=== PATIENT | male | born 1945 | race Caucasian/White ===

== ENCOUNTER → 2017-11-30 14:13 | Outpatient (CLI) | payer MEDICARE, BC, SELFPAY ==
[2017-11-30 15:32] LABS: PSA,Total- Diagnostic 3.49 ng/mL (0.0-4.0)
== END ==
PROVIDERS: Family Provider Family Medicine; PCP Family Medicine; Visit Provider Urology
DX: R97.20 Elevated prostate specific antigen [PSA] (principal)
CPT/HCPCS: 36415; 84153

== ENCOUNTER → 2018-06-30 12:27 | Outpatient (CLI) | payer MEDICARE, BC, SELFPAY ==
--- NOTE | 2018-06-30 12:29 | ECHOCS_ITS ---
Version 2 Reason For Study: DYSPNEA/SOB Procedure This was a 2D Doppler, Color Flow transthoracic echocardiogram. Exam performed in department. Left Ventricle Normal LV size. The estimated ejection fraction is 45 %. Mild segmental systolic dysfunction (see wall motion). Unable to assess diastolic dysfunction due to arrhythmia. Mid-Posterior: Hypokinetic. Infero-Basal: Severely Hypokinetic. Basal inferoseptal: Severely Hypokinetic. Mid-Inferior: Hypokinetic. The rest of the wall segments are normal. Atria The left atrium is moderately enlarged. Normal right atrium. Mitral Valve Normal mitral valve. Mild (1+) eccentric mitral valve insufficiency. Tricuspid Valve Normal tricuspid valve. Mild (1+) tricuspid valve insufficiency. Pulmonary artery systolic pressure is 46 mmHg. Mild pulmonary hypertension. Aortic Valve Trisinus/trileaflet aortic valve. Mild focal aortic valve calcification. Pulmonic Valve Normal pulmonic valve. Great Vessels Normal aortic root. The pulmonary artery is normal size. Normal inferior vena cava. Pericardium/Pleural No pericardial effusion. Medication 22 gauge I.V. with prn adaptor inserted into right arm. Diluted definity 4ml given slow IV push to enhance endocardial definition. MMode/2D Measurements & Calculations LVIDd: 4.7 cm IVSd: 1.1 cm Ao root diam: 3.0 cm LVIDs: 3.8 cm LVPWd: 0.89 cm LA dimension: 4.7 cm FS: 17.9 % LAV(MOD-bp): 117.8 ml LVAd ap4: 30.4 cm2 SV(MOD-sp4): 32.6 ml LAV(MOD-bp) Indexed: 60.3 ml/m2 EDV(MOD-sp4): 99.1 ml LAV(MOD-sp2): 118.6 ml EDV(sp4-el): 102.0 ml LAV(MOD-sp4): 105.5 ml LVAs ap4: 23.7 cm2 ESV(MOD-sp4): 66.5 ml ESV(sp4-el): 67.7 ml EF(MOD-sp4): 32.9 % EF(sp4-el): 33.7 % SV(sp4-el): 34.4 ml LA A4 area: 30.4 cm2 LA dimension(2D): 4.7 cm RA A4 area: 25.1 cm2 Doppler Measurements & Calculations MV E max john: 105.8 cm/sec Ao V2 max: 152.5 cm/sec LV V1 max: 118.8 cm/sec Ao max P.5 mmHg LV V1 max P.7 mmHg PA V2 max: 102.4 cm/sec TR max john: 322.9 cm/sec TR max P.8 mmHg Interpretation Summary Normal LV size. The estimated ejection fraction is 45 %. Mild segmental systolic dysfunction (see wall motion). Unable to assess diastolic dysfunction due to arrhythmia. Mild (1+) tricuspid valve insufficiency. Pulmonary artery systolic pressure is 46 mmHg. Mild pulmonary hypertension. The pulmonary pressures have improved. Contrast injection was performed. Compared to previous study, the left ventricular systolic function is the same.. Ordering Physician: Jairo Turk Referring Physician: ESTELLA BAL Performed By: Roxanne Liu RDCS
== END ==
PROVIDERS: Family Provider Family Medicine; PCP Family Medicine; Referring Provider Internal Medicine Cardiovascular Disease; Visit Provider Internal Medicine Cardiovascular Disease
DX: I27.20 Pulmonary hypertension, unspecified (principal)
CPT/HCPCS: 93306; Q9957; A4216; C8929

== ENCOUNTER → 2018-07-29 09:13 | Outpatient (CLI) | payer MEDICARE, BC, SELFPAY | PROVIDERS: Family Provider Family Medicine; PCP Family Medicine; Referring Provider Physician Assistant Medical; Visit Provider Physician Assistant Medical | DX: I48.2 Chronic atrial fibrillation (principal) | CPT/HCPCS: 93225; 93226 ==

== ENCOUNTER → 2018-09-07 20:19 | Outpatient (CLI) | payer MEDICARE, BC, SELFPAY ==
[2018-08-30 11:23] VITALS: BMI 32.9
== END ==
PROVIDERS: Family Provider Family Medicine; PCP Family Medicine; Referring Provider Physician Assistant Medical; Visit Provider Physician Assistant Medical
DX: G47.10 Hypersomnia, unspecified (principal); I27.20 Pulmonary hypertension, unspecified
CPT/HCPCS: 95810

== ENCOUNTER → 2018-09-24 23:40 | Outpatient (CLI) | payer MEDICARE, BC, SELFPAY ==
[2018-09-21 09:59] VITALS: BMI 32.9
== END ==
PROVIDERS: Family Provider Family Medicine; PCP Family Medicine; Referring Provider Nurse Practitioner Acute Care; Visit Provider Nurse Practitioner Acute Care
DX: G47.33 Obstructive sleep apnea (adult) (pediatric) (principal)
CPT/HCPCS: 95811

== ENCOUNTER → 2018-12-14 10:05 | Outpatient (CLI) | payer MEDICARE, BC, SELFPAY ==
[2018-12-14 09:44] VITALS: BMI 32.4
[2018-12-14 11:15] LABS: Anion Gap 5 (5-15); BUN 28 mg/dL (7-18); BUN/Creat Ratio 20.4 RATIO (10-20); Chloride 107 mmol/L (98-107); Creatinine, Serum 1.37 mg/dL (0.70-1.30); EST Glomerular Filtration Rate 54 mL/min (>60); Est Glom Filt Rate - Afr Amer 65 mL/min (>60); Glucose 123 mg/dL (74-106); Potassium 3.7 mmol/L (3.5-5.1); Sodium Level 137 mmol/L (136-145)
== END ==
PROVIDERS: Family Provider Family Medicine; PCP Family Medicine; Referring Provider Nurse Practitioner Family; Visit Provider Nurse Practitioner Family
DX: I10 Essential (primary) hypertension (principal); N28.0 Ischemia and infarction of kidney; I27.20 Pulmonary hypertension, unspecified; I36.1 Nonrheumatic tricuspid (valve) insufficiency; I42.2 Other hypertrophic cardiomyopathy; I48.2 Chronic atrial fibrillation; N40.0 Benign prostatic hyperplasia without lower urinary tract symptoms
CPT/HCPCS: 36415; 80048

== ENCOUNTER → 2018-12-28 | Outpatient (CLI) | payer MEDICARE, BC, SELFPAY ==
[2018-12-14 09:44] VITALS: BMI 32.4
[2018-12-28 12:10] LABS: Anion Gap 5 (5-15); BUN 23 mg/dL (7-18); BUN/Creat Ratio 17.6 RATIO (10-20); Calcium,Total 9.2 mg/dL (8.5-10.1); Chloride 105 mmol/L (98-107); Creatinine, Serum 1.31 mg/dL (0.70-1.30); EST Glomerular Filtration Rate 57 mL/min (>60); Est Glom Filt Rate - Afr Amer 69 mL/min (>60); Glucose 154 mg/dL (74-106); Potassium 4.2 mmol/L (3.5-5.1); Sodium Level 140 mmol/L (136-145)
== END | disposition home or self-care (01) ==
LOC: LAB 08:47
PROVIDERS: Family Provider Family Medicine; PCP Family Medicine; Referring Provider Nurse Practitioner Family; Visit Provider Nurse Practitioner Family
DX: E66.9 Obesity, unspecified (principal); G47.33 Obstructive sleep apnea (adult) (pediatric); Z90.49 Acquired absence of other specified parts of digestive tract; Z98.890 Other specified postprocedural states; N28.0 Ischemia and infarction of kidney; I27.20 Pulmonary hypertension, unspecified; I36.1 Nonrheumatic tricuspid (valve) insufficiency; I42.2 Other hypertrophic cardiomyopathy; N40.0 Benign prostatic hyperplasia without lower urinary tract symptoms; I48.2 Chronic atrial fibrillation; I10 Essential (primary) hypertension; I42.0 Dilated cardiomyopathy; Z87.891 Personal history of nicotine dependence
CPT/HCPCS: 36415; 80048

== ENCOUNTER 2019-01-16 16:41 | Emergency (ER) | payer MEDICARE, BC, SELFPAY ==
[2019-01-11 10:54] VITALS: BMI 32.8
[2019-01-16 16:42] VITALS: BP 154/75; PULSE 66; RESP 18; TEMP 36.5; O2SAT 96; BMI 33.0
--- NOTE | 2019-01-16 16:58 | ED.VIS.GEN ---
History of Present Illness Chief Complaint: Complaint Informant: Patient, Family Onset: Yesterday Context: Sudden Onset Timing: Intermittent Quality: hematuria w/ few clots Location: penile Current Severity: Moderate Maximum Severity: Moderate Associated Symptoms: malaise Narrative: Feeling somewhat weak today. No fevers. No dysuria. No urinary retention. No abdominal pain, back pain, nausea, vomiting. Is on Coumadin and has not had his INR checked in a while. - Past Medical History (1) Renal infarct Status: Chronic (2) BPH (benign prostatic hyperplasia) Status: Chronic (3) CAD (coronary artery disease) Status: Chronic (4) Chronic atrial fibrillation Status: Chronic (5) HLD (hyperlipidemia) Status: Chronic (6) Hypertension Status: Chronic (7) Hypertrophic cardiomyopathy Status: Chronic Comment: septal myectomy (8) KIMBERLY (obstructive sleep apnea) Status: Chronic Comment: AHI overall 73.6 (9) Pulmonary hypertension Status: Chronic Comment: RVSP estimated to be 46 mmHg (10) Tricuspid valve insufficiency, non-rheumatic Status: Chronic Past Medical History - Allergies and Home Meds Allergies/Adverse Reactions: Allergies rivaroxaban [From Xarelto] Allergy (Verified 01/16/19 16:41) Other metoprolol Adverse Reaction (Verified 01/16/19 16:41) bradycardia Primary Care Physician: Howard Escobar DO [Primary Care Provider] - Surgical History: TURP, - - Heart Muscle Reduction intervention secondary to Dilated Cardiomyopathy, Severel Cystoscopic interventions. Smoking Status: Former smoker - Family History Paternal Family History: Family History (Last Reviewed 11/30/18 @ 13:39 by Nila Lees) Father Heart disease Sister Heart disease Brother Heart disease Family History: Reports: Heart Disease Maternal Family History: Family History (Last Reviewed 11/30/18 @ 13:39 by Nila Lees) Father Heart disease Sister Heart disease Brother Heart disease Family History: Reports: Hypertension, Stroke Review of Systems General: Reports: Malaise. Denies: Chills, Fever, Sweats Eyes: Denies: Visual changes - bilaterally, Diplopia ENT: Denies: Rhinorrhea, Sore throat Cardiovascular: Denies: Chest pain, Palpitations Respiratory: Denies: Dyspnea, Cough, Dyspnea on exertion Gastrointestinal: Denies: Abdominal pain, Nausea, Vomiting, Diarrhea, Melena, Hematochezia Genitourinary: Reports: Hematuria. Denies: Dysuria, Frequency Musculoskeletal: Denies: Back pain, Extremity Pain Skin: Denies: Rash, Wounds Neurological: Denies: Headache, Weakness, Numbness Hematologic: Reports: Easy bruising, Easy bleeding Physical Exam Vital Signs/Narrative: Vital Signs Temp Pulse Resp BP Pulse Ox 01/16/19 16:42 97.7 F L 66 18 154/75 H 96 Inital Vital Signs reviewed: Yes General: Well nourished, Well developed, Obese, No Acute Distress Head: Normocephalic, Atraumatic Eyes: Perrl, EOMI ENT: Moist mucous membranes, No rhinorrhea Neck: Supple, Nontender Cardiovascular: Regular rate, Regular rhythm, No murmurs Respiratory: No distress, CTA bilaterally, Chest nontender Abdomen: Soft, Nontender, Nondistended, Normal bowel sounds Back: Nontender, Normal Inspection. Negative for: CVA tenderness Extremities: Nontender, No edema Skin: Normal color, No rash, No Trauma Neurological: Alert, Oriented x3, Cranial nerves II-XII grossly intact, Normal Strength, Normal Sensation Psychological: Normal affect, Normal Mood Diagnostic/Tx/Re-eval - Medical Decision Making Patient was able to urinate on his own, the hematuria is mild, his urine is red but transparent with a couple of small clots within it. He wants to hold off on catheter for irrigation at this time, as he does not have acute retention. Awaiting labs including PT/INR. INR is 2.0, his blood work shows some mild chronic renal insufficiency and his blood counts are within normal limits. He urinated again and stated it was yellow, he then urinated again and it was bloody. He still prefers not to have a catheter since he has no retention, I think that is fine. I discussed with Dr. durán his urologist who advised that we get a CAT scan, that was done and showed nothing acute but some perinephric stranding. It also showed some enlargement with postsurgical changes of his prostate. Nothing else acute. I sent his urine for a culture, I am at a very low suspicion that he has pyelonephritis or cystitis given leukocyte esterase at 25, nitrite negative, and 0 white blood cells. He is stable to be discharged, he will follow-up with urology and we discussed reasons to return to the ER which include urinary retention. Also advised per Dr. durán's advice that he hold his Coumadin for 2 days, he has already held for today, he may resume it the day after tomorrow. ED Disposition - Plan for ED Patient: Disposition: Home or Assisted Living Diagnosis: Hematuria, Warfarin anticoagulation Instructions: ED Hematuria Referrals: Howard Escobar DO [Primary Care Provider] - Josh Durán MD [STAFF PHYSICIAN] - As soon as possible Additional Instructions: Do not take your Coumadin tonight or tomorrow, then resume it as prescribed.
[2019-01-16 17:36] LABS: Absolute Lymphocyte Count 1.56 X10^3/ul (0.83-4.51); Absolute Neutrophil Count 4.2 X10^3/uL (2.0-7.7); Basophil# 0.03 X10^3/uL; Basophil% 0.5 % (0-1); Eosinophil# 0.07 X10^3/uL; Eosinophils% 1.1 % (0-5); Hematocrit 45.3 % (40-54); Hemoglobin 15.6 g/dl (13.0-16.5); Lymphocyte # 1.56 X10^3/ul (4.0); Lymphocyte % 24.5 % (19-41); Mean Corp Hgb Conc 34.4 g/gl (32-36); Mean Corpuscular Hgb 29.2 pg (27.0-32.0); Mean Corpuscular Volume 84.7 fL (80-94); Mean Platelet Vol. 11.9 fl (6.2-12.0); Monocyte% 7.8 % (0-10); Neutrophil # 4.19 X10^3/uL (2.7-7.7); Neutrophil % 65.8 % (47-70); Platelet Count 181 K/mm3 (150-450); RBC Distribution Width CV 13.6 % (11.6-14.6); RBC Distribution Width SD 41.9 fl (35.1-43.9); Red Blood Count 5.35 M/mm3 (4.6-6.2); White Blood Count 6.4 K/mm3 (4.4-11.0)
[2019-01-16 17:40] LABS: Bacteria 0 SEEN /hpf (None Seen); Mucous, Urine 0 SEEN /hpf (<or=2+); Squamous Epithelial Cells - UA 0 SEEN /hpf (0-5)
[2019-01-16 17:50] LABS: POSITIVE COUNT NO; POSITIVE DIFFERENTIAL NO; POSITIVE MORPHOLOGY NO
[2019-01-16 17:51] LABS: Anion Gap 9 (5-15); BUN 24 mg/dL (7-18); BUN/Creat Ratio 16.1 RATIO (10-20); Calcium,Total 9.4 mg/dL (8.5-10.1); Chloride 104 mmol/L (98-107); Creatinine, Serum 1.49 mg/dL (0.70-1.30); EST Glomerular Filtration Rate 49 mL/min (>60); Est Glom Filt Rate - Afr Amer 59 mL/min (>60); Estimated Creatinine Clearance 35.87 ml/min; Glucose 166 mg/dL (74-106); Potassium 3.9 mmol/L (3.5-5.1); Sodium Level 139 mmol/L (136-145)
[2019-01-16 17:52] LABS: Glucose, Dipstick Normal (Normal); Ketone-Dipstick Negative (Negative); Leukocyte Esterase-Dipstick 25 /ul (Negative); Nitrite-Dipstick Negative (Negative); Occult Blood-Urine 250 /ul (Negative); Protein-Dipstick 100 mg/dl (Negative); Urine Bilirubin Dipstick Negative (Negative); Urine Clarity Sl. Cloudy (Clear); Urine Urobilinogen Normal (Normal)
[2019-01-16 17:55] LABS: Prothrombin Time (Protime)PT. 22.5 SECONDS (11.7-14.9)
[2019-01-16 18:02] LABS: Color, Urine SEE COMMENT BELOW (Yellow)
[2019-01-16 18:06] LABS: Red Blood Cells-Urine > 100 SEEN /hpf (0-5); White Blood Cells 0-5 SEEN /hpf (0-5)
--- NOTE | 2019-01-16 18:52 | CT_ITS ---
STUDY: CT ABDOMEN AND PELVIS WITHOUT CONTRAST REASON FOR EXAM: Male, 73 years old. Hematuria. RADIATION DOSAGE (If Supplied By Facility): CTDIvol = ( 16.25 ) mGy, DLP = ( 710.45 ) mGycm TECHNIQUE: Transaxial images were obtained from the dome of the diaphragm to the symphysis pubis without oral contrast, and without intravenous contrast. Sagittal and coronal images were reconstructed. Individualized dose optimization techniques were used for this CT. COMPARISON: April 16, 2017. FINDINGS: Lung bases: Left lung base granuloma. Minimal dependent changes. Heart: Cardiomegaly. Mild coronary artery disease. Liver: Hepatic steatosis. No focal hepatic lesions given noncontrast technique. Gallbladder/biliary ducts: Multiple gallstones. No biliary ductal dilatation. Pancreas: Moderate/severe pancreatic atrophy. Spleen: Splenic granulomas. Adrenal glands: Unremarkable. Kidneys/ureters/bladder/prostate: Bilateral renal parenchymal atrophy, right markedly greater than left. Right renal parenchyma scarring. Minimal perinephric fat stranding bilaterally. Nondistended ureters. Enlarged prostate with TURP defect and surgical clips/seeds. Prostate measures up to 7.3 cm. Minimal high attenuation material layering in the dependent portion of the bladder (sagittal image 84 series 602). No signs of obstructive uropathy. Large bowel/small bowel: No acute small bowel or large bowel process. Appendix: Not visualized. No secondary signs of appendicitis. Gastroesophageal junction/stomach: Unremarkable. Retroperitoneum/lymph nodes: No intra-abdominal free air. No ascites. No pathologically enlarged lymph nodes. Vascular: Vascular calcifications. No aneurysm. Osseous structures: Degenerative changes. No acute process. Subcutaneous/soft tissues: Fat-containing umbilical hernia without complication. Mild paraspinal muscle atrophy. No acute process. CT/Abdomen/Pelvis without Cont IMPRESSION: No acute bowel findings or obstructive uropathy Mild nonspecific perinephric fat stranding (possible UTI; correlate urinalysis) Enlarged prostate with postsurgical changes Bilateral renal parenchymal thinning/scarring, right greater than left Additional chronic/degenerative findings, as above Electronically Signed: Gurdeep Ruiz DO at 19:25 EDT Tel , Service support ,
[2019-01-16 19:22] VITALS: BP 174/101; PULSE 61; RESP 18; O2SAT 95
[2019-01-16 21:08] VITALS: PULSE 65; RESP 17; O2SAT 98
== END 2019-01-16 21:08 | disposition home or self-care (01) ==
PROVIDERS: Emergency Provider Emergency Medicine; Family Provider Family Medicine; PCP Family Medicine
DX: R31.9 Hematuria, unspecified (principal); Z79.01 Long term (current) use of anticoagulants; E66.9 Obesity, unspecified; I12.9 Hypertensive chronic kidney disease with stage 1 through stage 4 chronic kidney disease, or unspecified chronic kidney disease; N18.9 Chronic kidney disease, unspecified; N40.0 Benign prostatic hyperplasia without lower urinary tract symptoms; I25.10 Atherosclerotic heart disease of native coronary artery without angina pectoris; I48.2 Chronic atrial fibrillation; I42.2 Other hypertrophic cardiomyopathy; G47.33 Obstructive sleep apnea (adult) (pediatric); I27.20 Pulmonary hypertension, unspecified; I36.1 Nonrheumatic tricuspid (valve) insufficiency; Z87.448 Personal history of other diseases of urinary system; Z79.84 Long term (current) use of oral hypoglycemic drugs; Z79.899 Other long term (current) drug therapy; Z87.891 Personal history of nicotine dependence
CPT/HCPCS: 74176; 80048; 81001; 85025; 85610; 87086; 99283; A4216

== ENCOUNTER → 2019-01-17 | Outpatient (CLI) | payer MEDICARE, BC, SELFPAY ==
[2019-01-16 16:42] VITALS: BMI 33.0
--- NOTE | 2019-01-17 | CYSPIN_PTH ---
PATIENT: ANTWAN GE LOC: [facility] U#:[id number] AGE/SX: 73/M ROOM: RE01/17/[address]: Dr. Josh Durán MD : 1945 BED: DIS: 01/17/2019 SPEC #: [id number] RECD: 01/17/19 15:20 STATUS: RAGHU REWei #: [id number] MARINA: 01/17/19 00:[address]: Josh Durán DEPT: CYTOLOGY RECD BY: Bassem Vigil ENTERED: 01/18/19 09:54 SP TYPE: CYSPIN FL OTHR DR: Dr. Howard Escobar, DO Tissues: Urine Procedures: Pap Stain (control) Special Stain Group II Cytospin Fluid HEADER OPERATION: Not noted PRE-OP DIAGNOSIS: Gross hematuria TISSUE SUBMITTED: Urine for cytology DIAGNOSIS CYTOLOGY Urine for cytology (cytospin): Rare atypical urothelial cells are present. See comment. AM:eladio 01/19/19 COMMENT The findings are nonspecific and could represent a variety of conditions including infection, urolithiasis, instrumentation and low grade urothelial neoplasm. Clinical correlation is necessary. CYTOLOGY STUDY Slides are reviewed. CYTOLOGY GROSS Received is 30 ml of dark gold fluid labeled with the patient's name and and designated per the requisition as urine. Submitted for cytology preparation. / 01/18/19 TC:? CPT: 06877
[2019-01-17 17:28] LABS: Cytology, Body Fluid / CSF SEE PATHOLOGY REPORT
== END | disposition home or self-care (01) ==
LOC: LABSPEC 17:05
PROVIDERS: Family Provider Family Medicine; PCP Family Medicine; Referring Provider Urology; Visit Provider Urology
DX: R31.0 Gross hematuria (principal)
CPT/HCPCS: 88108; 88313

== ENCOUNTER → 2019-01-27 | Outpatient (CLI) | payer MEDICARE, BC, SELFPAY ==
[2019-01-16 16:42] VITALS: BMI 33.0
[2019-01-27 13:11] LABS: Anion Gap 7 (5-15); BUN 31 mg/dL (7-18); BUN/Creat Ratio 23.3 RATIO (10-20); Calcium,Total 9.2 mg/dL (8.5-10.1); Chloride 106 mmol/L (98-107); Creatinine, Serum 1.33 mg/dL (0.70-1.30); EST Glomerular Filtration Rate 56 mL/min (>60); Est Glom Filt Rate - Afr Amer 67 mL/min (>60); Glucose 87 mg/dL (74-106); Sodium Level 140 mmol/L (136-145)
== END | disposition home or self-care (01) ==
LOC: LAB 12:04
PROVIDERS: Family Provider Family Medicine; PCP Family Medicine; Referring Provider Nurse Practitioner Family; Visit Provider Nurse Practitioner Family
DX: I10 Essential (primary) hypertension (principal); I42.0 Dilated cardiomyopathy; I42.2 Other hypertrophic cardiomyopathy; N28.0 Ischemia and infarction of kidney; I25.10 Atherosclerotic heart disease of native coronary artery without angina pectoris
CPT/HCPCS: 36415; 80048

== ENCOUNTER 2019-02-09 05:44 | Day surgery (SDC) | payer MEDICARE, BC, SELFPAY ==
[2019-02-07 10:25] VITALS: BP 148/74; PULSE 53; RESP 16; TEMP 36.2; O2SAT 97; BMI 32.0
[2019-02-09] VITALS (11 sets, daily range): BP systolic 122–158; BP diastolic 51–87; PULSE 54–76; RESP 16–18; TEMP 36.1–36.4; O2SAT 94–98; BMI 32.0
[2019-02-09 06:06] LABS: Prothrombin Time Fingerstick 14.1 SEC (11.9-14.4)
[2019-02-09 06:31] LABS: Bedside Glucose 152 mg/dL (70-110)
[2019-02-09] MEDS: Cefazolin 2 GM in 0.9% Normal Saline 100 ML IV (07:21)
--- NOTE | 2019-02-09 07:26 | DCINST_ITS ---
Discharge Diet: Light diet - advance as tolerated Discharge Activity: Return to Normal Activity Call your doctor if your incision/area has: Sudden Increased Bleeding Call your doctor if you observe: Fever of 101 or Higher Suture Line Care: Avoid Pulling/Pushing, Avoid Pinching/Bending Additional Instructions: resume coumadin once urine clear Allergies/Adverse Reactions: Allergies rivaroxaban [From Xarelto] Allergy (Verified 02/07/19 10:08) Other metoprolol Adverse Reaction (Verified 02/07/19 10:08) bradycardia Medications to take at Discharge Cyanocobalamin [Vitamin B12] 1,000 mcg IM Q30D 06/08/16 Hydrochlorothiazide [Hctz] 12.5 mg PO DAILY 06/08/16 doxazosin 2 mg tablet 2 mg PO DAILY #90 tab 07/20/18 metformin 500 mg tablet 500 mg PO DAILY 08/30/18 lisinopril 10 mg tablet 10 mg PO DAILY #30 tab 01/11/19 Dutasteride 0.5 mg PO DAILY 02/07/19 Acetaminophen [Tylenol Extra Strength] 500 mg PO Q4H PRN PRN #20 tab 02/09/19 Ciprofloxacin [Cipro] 500 mg PO BID #6 tab 02/09/19 Ibuprofen 600 mg PO Q6H PRN PRN #20 tab 02/09/19 Phenazopyridine [Pyridium] 100 mg PO TID #15 tab 02/09/19 The following prescriptions were given: Acetaminophen [Tylenol Extra Strength] 500 mg PO Q4H PRN PRN #20 tab PRN Reason: Pain Ibuprofen 600 mg PO Q6H PRN PRN #20 tab PRN Reason: Pain Ciprofloxacin [Cipro] 500 mg PO BID #6 tab Phenazopyridine [Pyridium] 100 mg PO TID #15 tab Primary Care Physician: Howard Escobar DO [Primary Care Provider] - Test Results: Test results from this visit will be discussed in further detail at your follow- up appointment, if applicable. Please Follow Up With: Josh Durán MD When: in 2 weeks, please call to make an appointment.
--- NOTE | 2019-02-09 07:30 | PROS_PTH ---
PATIENT: ANTWAN [place] [facility] [place][id number] AGE/SX: 73/M ROOM: RE02/09/[address]: Dr. Josh Durán MD : 1945 BED: DIS: 02/10/2019 SPEC #: [id number] RECD: 02/09/19 10:11 STATUS: RAGHU REWei #: [id number] MARINA: 02/09/19 07:[address]: Josh Durán DEPT: SURGICAL PATHOLOGY RECD BY: Zoey Chaney ENTERED: 02/09/19 11:48 SP TYPE: TURP OTHR DR: Dr. Howard Escobar, DO Tissues: Prostate, NOS Procedures: Surgery Specimen Level IV HEADER OPERATION: Cystoscopy, transurethral resection of prostate PRE-OP DIAGNOSIS: Benign prostatic hypertrophy with obstruction, bladder calculus TISSUE SUBMITTED: Prostate chips MICROSCOPIC DIAGNOSIS Prostate, transurethral resection: Benign nodular hyperplasia, glandular and stromal types. Mild chronic inflammation. AM:eladio 02/10/19 MICROSCOPIC DESCRIPTION Slides are reviewed. GROSS DESCRIPTION Received is one container labeled with the patient's name and designated prostate chips. The specimen consists of multiple irregular fragments of pink-gomez, rubbery, soft tissue that in aggregate weigh 20.3 gm and measure in aggregate 7 x 7 x 3 cm. The entire specimen is submitted in 12 cassettes. CURRY:eladio 02/09/19 TC:3 CPT: 13218
[2019-02-09] MEDS: Lubricating Jelly 60 GM Tube 30 GM TOPICAL (07:37)
--- NOTE | 2019-02-09 09:00 | OP.PCM_ITS ---
Report of Operation Date of Procedure: 02/09/19 Pre-Operative Diagnosis: BPH with obstruction and bladder stones Post-Operative Diagnosis: The same, bladder stones in the past Surgery/Procedure Performed:: Transurethral resection of the prostate Description of Surgical Findings:: 73-year-old male with a history of BPH with obstruction he had obstruction of the prostate and about 2 years ago underwent an UroLift procedure for obstruction went really well and initially reported good flow good results no difficulty going to the bathroom recently comes and and reported more difficulty with stream weak stream difficulty emptying his bladder on cystoscopy was found to have a lot of bullous edema through the urinary channel and what appeared to be bladder stones in the base of the bladder. So that point I recommended we proceed with a cystoscopy and a cystoscopy evacuation of bladder stones. Patient was taken back to the operating room today when general anesthesia he was placed in dorsolithotomy position went inside identified. Identified the penis and testicles are normal I dilated the urethra with sounds very gently just to dilate the meatus. I then went in with a 26 Ukrainian continuous flow resectoscope was able to get through the entire urethra into the bladder past the sphincter I saw a lot of bullous edema and swelling in the prostate with once inside the bladder I do not see any stones but a very heavily trabeculated bladder very difficult to identify the ureteral orifices because of the heavy trabeculation throughout the bladder. I do not see any stones within the bladder that was seen on cystoscopy in the office. Therefore after evaluating the prostate in the in the bladder I decided to proceed with a TURP given the fact that he has significant urinary symptoms and a lot of bullous edema and obstruction of the prostate so I started off with the resectoscope and I resected the floor of the prostate and then as a as I went up and resected the lateral wall the prostate came across the UroLift clips these were removed one by one very carefully did not injure the resectoscope loop during this process these clips were removed then as I worked my way back to the [facility] resected the tissue on the right side chemo class II to clear lymph clips these were both taken out also some of the anchors were taken out and then can continue to resecting the prostate tissue then resected the roof of the prostate and then went to the right side of the prostate continue resection came across the urolith clips and again carefully remove these evacuated from the bladder and then continued resection back to the verumontanum then after the medial resection was done and then switched over to the button vaporization and smooth out the resection smooth out the resection throughout the prostatic channel and then used this to button button vaporizing the prosthetic apical tissue near the verumontanum making sure to vaporize the prosthetic tissue but not to put across the sphincter the verumontanum was right in view during entire resection and vaporized the apical tissue very carefully finally did a flow test he had a nice wide open flow and then I decided to place a 22 Ukrainian catheter into the bladder this was placed on continuous bladder irrigation all the chips have been Ellik it out of the bladder is taken back to PACU in good condition the urine was slightly pink color. Type of Anesthesia:: General Drains: 22fr hull - Admit VTE Documentation VTE Present on Admission: No
[2019-02-09 10:01] LABS: Bedside Glucose 136 mg/dL (70-110)
[2019-02-09] MEDS: Ibuprofen 600 MG Tablet PO ×2 (12:00→17:39)
[2019-02-09] MEDS: Ciprofloxacin 400 MG/200 ML BAG 200 MG IV ×2 (12:36→21:20)
[2019-02-09] MEDS: 0.9% Normal Saline 1,000 ML 75 ML IV (12:39)
[2019-02-09] MEDS: Docusate Sodium 100 MG Capsule PO ×2 (14:52→21:20)
[2019-02-09 15:25] LABS: Bedside Glucose 179 mg/dL (70-110)
[2019-02-09 17:05] LABS: Bedside Glucose 191 mg/dL (70-110)
[2019-02-09] MEDS: metFORMIN HCl 500 MG Tablet PO (17:37)
[2019-02-10 00:19] VITALS: BP 135/58; PULSE 54; RESP 16; TEMP 36.6; O2SAT 98
[2019-02-10] MEDS: 0.9% Normal Saline 1,000 ML 75 ML IV (02:43)
[2019-02-10 06:43] VITALS: BP 145/77; PULSE 56; RESP 16; TEMP 36.6; O2SAT 95
[2019-02-10] MEDS: hydroCHLOROthiazide 12.5mg 12.5 MG PO (09:58)
[2019-02-10] MEDS: Docusate Sodium 100 MG Capsule PO (09:58)
[2019-02-10] MEDS: Pantoprazole Sodium 40 MG Tablet PO (09:58)
[2019-02-10] MEDS: Doxazosin 1 MG Tablet 2 MG PO (09:58)
[2019-02-10] MEDS: Finasteride 5 MG Tablet PO (09:58)
[2019-02-10] MEDS: Lisinopril 10 MG Tablet PO (09:58)
[2019-02-10 10:00] VITALS: PULSE 52
[2019-02-10 10:54] VITALS: BP 144/72; PULSE 52; RESP 18; TEMP 36.6; O2SAT 98
== END 2019-02-10 11:46 | disposition home or self-care (01) ==
LOC: SDC 05:45 → AC 05:45 → MS2 09:09
PROVIDERS: Family Provider Family Medicine; PCP Family Medicine; Referring Provider Urology; Visit Provider Urology
PROC: (CPT 52601; principal; 2019-02-09 07:20)
DX: N40.1 Benign prostatic hyperplasia with lower urinary tract symptoms (principal); N13.8 Other obstructive and reflux uropathy; N21.0 Calculus in bladder; E11.9 Type 2 diabetes mellitus without complications; E78.00 Pure hypercholesterolemia, unspecified; E53.8 Deficiency of other specified B group vitamins; Z79.01 Long term (current) use of anticoagulants; Z79.899 Other long term (current) drug therapy; Z79.4 Long term (current) use of insulin; I48.91 Unspecified atrial fibrillation; I10 Essential (primary) hypertension; Z87.891 Personal history of nicotine dependence
CPT/HCPCS: 00914; 52601; 36416; 82962; 85610; 88305; 94762; J7030; J7120; J0744; J2405

== ENCOUNTER 2019-02-18 09:02 | Emergency (ER) | payer MEDICARE, BC, SELFPAY ==
[2019-02-09 06:11] VITALS: BMI 32.0
[2019-02-18 09:04] VITALS: BP 150/90; PULSE 87; RESP 17; TEMP 36.8; O2SAT 96; BMI 32.1
--- NOTE | 2019-02-18 09:34 | ED.VISSUMM ---
- ER Visit Summary Date of Service: 02/18/19 Chief Complaint: UTI History of Present Illness: The patient is a 73 M with a possible UTI. Patient had prostate surgery about a week and a half ago by Dr. Durán. He has had dark urine, urinary frequency and occasional mild bleeding since then. He completed his antibiotics about a week ago. He has had continued symptoms and is concerned for UTI. He denies fever or any other symptoms. Denies back pain. Physical Examination: Afebrile and vital signs are unremarkable. Abdomen soft and nontender. Back is nontender. Test Results: We will check labs, urine, INR, urine culture. Emergency Department Course and Treatment: CBC normal. BUN 23 and creatinine 1.32. INR 1.0. Urinalysis shows signs of infection. Culture pending. We will treat with Keflex. Patient was referred to his urologist for further care. For any new or worsening issues. Treatment Plan: As above Disposition: Discharge Impression: 1. UTI cystitis This note was generated with [employer] dictation software. It may contain incorrect words, spelling, and punctuation that were not noted in review of the chart prior to signing ED Disposition - Plan for ED Patient: Referrals: Howard Escobar DO [Primary Care Provider] -
[2019-02-18 09:56] LABS: Mucous, Urine 0 SEEN /hpf (<or=2+); Squamous Epithelial Cells - UA 0 SEEN /hpf (0-5)
[2019-02-18 09:57] LABS: Color, Urine Yellow (Yellow); Glucose, Dipstick Normal (Normal); Ketone-Dipstick Negative (Negative); Leukocyte Esterase-Dipstick 500 /ul (Negative); Nitrite-Dipstick Positive (Negative); Occult Blood-Urine 250 /ul (Negative); Protein-Dipstick 100 mg/dl (Negative); Urine Bilirubin Dipstick Negative (Negative); Urine Clarity Clear (Clear); Urine Urobilinogen 1 mg/dl (Normal)
[2019-02-18 10:04] LABS: White Blood Cells 10-25 SEEN /hpf (0-5)
[2019-02-18 10:05] LABS: Bacteria 2+ /hpf (None Seen); Red Blood Cells-Urine 25-50 SEEN /hpf (0-5); Renal Epithelial Cells 0-5 SEEN /hpf (0-5)
[2019-02-18 10:08] LABS: Absolute Lymphocyte Count 1.31 X10^3/ul (0.83-4.51); Absolute Neutrophil Count 6.5 X10^3/uL (2.0-7.7); Basophil# 0.05 X10^3/uL; Basophil% 0.6 % (0-1); Eosinophil# 0.27 X10^3/uL; Hematocrit 42.8 % (40-54); Hemoglobin 14.6 g/dl (13.0-16.5); Lymphocyte # 1.31 X10^3/ul (4.0); Lymphocyte % 14.6 % (19-41); Mean Corp Hgb Conc 34.1 g/gl (32-36); Mean Corpuscular Hgb 29.5 pg (27.0-32.0); Mean Corpuscular Volume 86.5 fL (80-94); Mean Platelet Vol. 11.1 fl (6.2-12.0); Monocyte# 0.83 X10^3/uL; Monocyte% 9.2 % (0-10); Neutrophil % 72.2 % (47-70); Platelet Count 201 K/mm3 (150-450); RBC Distribution Width CV 13.6 % (11.6-14.6); RBC Distribution Width SD 43.1 fl (35.1-43.9); Red Blood Count 4.95 M/mm3 (4.6-6.2)
[2019-02-18 10:11] LABS: POSITIVE COUNT NO; POSITIVE DIFFERENTIAL NO; POSITIVE MORPHOLOGY NO
[2019-02-18 10:19] LABS: Anion Gap 9 (5-15); BUN 23 mg/dL (7-18); BUN/Creat Ratio 17.4 RATIO (10-20); Calcium,Total 9.1 mg/dL (8.5-10.1); Chloride 104 mmol/L (98-107); Creatinine, Serum 1.32 mg/dL (0.70-1.30); EST Glomerular Filtration Rate 56 mL/min (>60); Est Glom Filt Rate - Afr Amer 68 mL/min (>60); Estimated Creatinine Clearance 40.49 ml/min; Glucose 173 mg/dL (74-106); Potassium 3.9 mmol/L (3.5-5.1); Prothrombin Time (Protime)PT. 13.3 SECONDS (11.7-14.9); Sodium Level 139 mmol/L (136-145)
--- NOTE | 2019-02-18 11:22 | ED.DEP ---
ED Disposition - Plan for ED Patient: Instructions: Urinary Tract Infections in Men Prescriptions: Cephalexin [Keflex] 500 mg PO BID 5 Days #10 cap Prescription Printed Referrals: Josh Durán MD [STAFF PHYSICIAN] -
[2019-02-18 11:33] VITALS: BP 132/75; PULSE 67; RESP 16; O2SAT 96
== END 2019-02-18 11:42 | disposition home or self-care (01) ==
LOC: ED 09:40
PROVIDERS: Emergency Provider Emergency Medicine; Family Provider Family Medicine; PCP Family Medicine
DX: N30.91 Cystitis, unspecified with hematuria (principal); I25.10 Atherosclerotic heart disease of native coronary artery without angina pectoris; I10 Essential (primary) hypertension; E78.00 Pure hypercholesterolemia, unspecified; G47.33 Obstructive sleep apnea (adult) (pediatric); I27.20 Pulmonary hypertension, unspecified; I48.91 Unspecified atrial fibrillation; Z87.448 Personal history of other diseases of urinary system; Z79.01 Long term (current) use of anticoagulants; Z79.84 Long term (current) use of oral hypoglycemic drugs; Z79.899 Other long term (current) drug therapy
CPT/HCPCS: 80048; 81001; 85025; 85610; 87086; 99283; A4216

== ENCOUNTER 2019-03-01 14:21 | Outpatient (RCR) | payer MEDICARE, BC, SELFPAY ==
[2019-03-01 11:25] VITALS: BMI 31.9
[2019-03-01 15:48] LABS: Prothrombin Time (Protime)PT. 22.4 SECONDS (11.7-14.9)
== END 2019-03-30 16:41 | disposition home or self-care (01) ==
LOC: LAB 14:21
PROVIDERS: Family Provider Family Medicine; PCP Family Medicine; Referring Provider Internal Medicine Cardiovascular Disease; Visit Provider Internal Medicine Cardiovascular Disease
DX: I48.2 Chronic atrial fibrillation (principal); I43 Cardiomyopathy in diseases classified elsewhere; I44.7 Left bundle-branch block, unspecified; I10 Essential (primary) hypertension; I27.21 Secondary pulmonary arterial hypertension; N28.0 Ischemia and infarction of kidney; I42.2 Other hypertrophic cardiomyopathy; E78.5 Hyperlipidemia, unspecified; Z79.01 Long term (current) use of anticoagulants; Z98.890 Other specified postprocedural states
CPT/HCPCS: 36415; 85610

== ENCOUNTER 2019-07-18 12:24 | Day surgery (SDC) | payer MEDICARE, BC, SELFPAY ==
[2019-06-13 14:08] VITALS: BMI 31.9
--- NOTE | 2019-06-16 11:58 | HP_ITS ---
Intake Vital Signs 06/13/19 Body Mass Index (BMI) 31.9 06/13/19 Height 5 ft 4 in 06/13/19 Weight: 184 lb 06/13/19 Body Mass Index (BMI) 31.6 06/13/19 Blood Pressure 165/83 H 06/13/19 Blood Pressure Location Rt brachial 06/13/19 Respiratory Rate 18 Intake Visit Reasons: Umbilical Hernia Chief Complaint: TURP Learning Officer Required: No Is patient in pain?: No Allergies rivaroxaban [From Xarelto] Allergy (Verified 06/13/19 14:07) Bleeding metoprolol Adverse Reaction (Verified 06/13/19 14:07) bradycardia Medications Cyanocobalamin [Vitamin B12] 1,000 mcg IM Q30D 06/08/16 [History Confirmed 06/13/19] Hydrochlorothiazide [Hctz] 12.5 mg PO DAILY 06/08/16 [History Confirmed 06/13/19] metformin 500 mg tablet 500 mg PO DINNER 08/30/18 [History Confirmed 06/13/19] Acetaminophen [Tylenol Extra Strength] 500 mg PO Q4H PRN PRN #20 tab 02/09/19 [Rx Confirmed 06/13/19] Warfarin Sodium 5 mg PO DAILY 02/09/19 [History Confirmed 06/13/19] lisinopril 10 mg tablet 10 mg PO DAILY #30 tab 04/13/19 [Rx Confirmed 06/13/19] doxazosin 2 mg tablet 2 mg PO DAILY #90 tab 05/23/19 [Rx Confirmed 06/13/19] PFSH Medical History Cardiomyopathy in diseases classified elsewhere (Chronic) Left bundle branch block (Chronic) Essential (primary) hypertension (Chronic) Secondary pulmonary arterial hypertension (Chronic) Renal infarct (Chronic) Hypertrophic cardiomyopathy (Chronic) Chronic atrial fibrillation (Chronic) HLD (hyperlipidemia) (Chronic) BPH (benign prostatic hyperplasia) (Chronic) Non-rheumatic tricuspid valve insufficiency (Chronic) KIMBERLY (obstructive sleep apnea) (Chronic) Obesity (BMI 30.0-34.9) (Chronic) History of tobacco use (Inactive) Surgical History History of ventricular septal myectomy (Resolved 2000) History of appendectomy (Resolved) History of transurethral resection of prostate (Resolved 01/2019) Family History Father Heart disease Sister Heart disease Brother Heart disease Social History (Updated 06/16/19 @ 11:58 by Antwan Alfaro MD) Smoking Status: Never smoker how long ago did patient quit smokin years ago 0.25ppd second hand exposure: Yes alcohol intake: never caffeine: Yes Type: coffee Number of servings: 1 HPI HPI HPI: ANTWAN GE, is a 74 M who presents to the office today for HPI HPI Surgical H&P: Yes HPI: ANTWAN GE, is a 74 M who presents to the office today for An increasing lump at his umbilicus. He has noticed this for many years but is been increasing in nature. He has had no pain with this. He has had no previous surgeries here.When he lies down it it is much smaller than when He is upright. ROS General General: No weight change, appetite, fatigue, colon cancer, breast cancer or weakness HEENT HEENT: No difficulty swallowing, eye injury, eye surgery, swollen glands or hoarseness Endo Endocrine: Yes diabetes mellitus; no thyroid disease, thyroid cancer, Hair loss, heat intolerance or cold intolerance Skin Skin: No rash or changing moles Breast Breast: No left breast lump, right breast lump, nipple discharge, breast pain, abnormal mammogram, abnormal US or breast enlargement Musc Musculoskeletal: No back problems, arthritis, rheumatoid arthritis, gout or joint pain Cardio Cardiovascular: Yes murmur and atrial fibrillation; no pacemaker, heart disease, high blood pressure, heart attack, heart stent, palpitations, shortness of breat with exertion or chest pain Psych Psychiatric: No depression, anxiety or hearing voices Resp Respiratory: No shortness of breath, Yes sleep apnea, No cough, No COPD, No asthma, No emphysema, No wheezing Gastro Gastrointestinal: No abdominal pain, No nausea or vomiting, No diarrhea, No constipation, No blood in stool, No acid reflux, No hemorrhoids, No ulcers, No gallbladder problem, No black,tarry stools Leonard Hematologic: Yes blood thinners, No blood disorders, No bleeding, No anemia, No blood clots Neuro Neurologic: No system reviewed and no additional complaints, except as docu, No as per HPI, No abnormal walking, No abnormal hearing, No abnormal movements, No abnormal speech, No behavioral changes, No burning sensations, No confusion, No seizure-like activity, No unsteadiness, No dizziness, No localized weakness, No frequent falls, No headache(s), No lack of coordination, No loss of vision, No memory loss, Yes numbness, No other visual disturbances, No radiating pain, No restless legs, No sensory deficit, No fainting, Yes tingling, No tremor(s), No weakness, No other Exam Const General: no acute distress, well developed, well hydrated Orientation: oriented to person, oriented to place, oriented to time [facility] Head: normocephalic, atraumatic Ears: external ears normal Mouth: moist mucous membranes Eyes Sclera: sclerae normal Pupils: normal by confrontation Neck Neck: no lymphadenopathy noted Neck mass: No Thyroid: thyroid normal, symmetrical Chest Chest palpation & inspection: normal inspection of the chest Breast Palpation: No nipple discharge Resp Effort & Inspection: normal respiratory effort Auscultation: clear to auscultation bilaterally Percussion: percussion normal Cardio Rate: regular rate Rhythm: regular rhythm Heart Sounds: murmur GI Palpation: soft, no hepatosplenomegaly, no masses, nontender Rectal Exam: other Other: Rectal exam deferred. Umbilical hernia is identified. It is easily reducible. Extrem General: normal to inspection, no clubbing, cyanosis or edema Assessment & Plan Problems 1. Umbilical hernia without obstruction and without gangrene K42.9 Plan My plan is to perform a Umbilical hernia repair with mesh. The planned surgical procedure was discussed extensively with the patient. The risks, benefits, anticipated outcomes and possible complication were mentioned. The patient understands that all hernia repair surgery has a chance of recurrence and/or chronic post-operative pain. My staff has also explained the procedure in understandable terms and the patient was given the option to take printed material concerning the planned procedure. The patient had the opportunity to ask questions concerning the planned procedure. The patient freely consents to the planned procedure. Coding Level of Care Code Off vis,est,level 3 Diagnoses Umbilical hernia without obstruction and without gangrene K42.9 06/16/19 1159 <Electronically signed by Antwan rivera MD> Date _ Antwan Alfaro MD I have re-examined the patient. There are no clinical changes since date of exam.
[2019-07-04 13:03] VITALS: BMI 31.9
[2019-07-18 12:51] VITALS: BP 152/60; PULSE 61; RESP 16; TEMP 36.1; O2SAT 98; BMI 32.2
[2019-07-18 12:52] LABS: Hematocrit 45.4 % (40-54); Mean Corpuscular Hgb 29.3 pg (27.0-32.0); Mean Corpuscular Volume 88.7 fL (80-94); Mean Platelet Vol. 12.1 fl (6.2-12.0); Platelet Count 175 K/mm3 (150-450); RBC Distribution Width SD 42.5 fl (35.1-43.9); Red Blood Count 5.12 M/mm3 (4.6-6.2); White Blood Count 7.2 K/mm3 (4.4-11.0)
[2019-07-18 13:03] LABS: International Normalized Ratio 1.2; Prothrombin Time (Protime)PT. 15.4 SECONDS (11.7-14.9)
[2019-07-18 13:08] LABS: Anion Gap 5 (5-15); BUN 26 mg/dL (7-18); Calcium,Total 9.2 mg/dL (8.5-10.1); Chloride 103 mmol/L (98-107); EST Glomerular Filtration Rate 57 mL/min (>60); Est Glom Filt Rate - Afr Amer 69 mL/min (>60); Glucose 114 mg/dL (74-106); Potassium 3.8 mmol/L (3.5-5.1); Sodium Level 136 mmol/L (136-145)
[2019-07-18 13:22] LABS: Hemoglobin A1c 6.7 % (4.2-6.3)
--- NOTE | 2019-07-18 13:29 | EKG12_ITS ---
Test Reason : PRE-OP Blood Pressure : / mmHG Vent. Rate : 063 BPM Atrial Rate : 070 BPM P-R Int : 000 ms QRS Dur : 156 ms QT Int : 428 ms P-R-T Axes : 000 005 175 degrees QTc Int : 437 ms Atrial fibrillation Left bundle branch block Abnormal ECG Confirmed by ABDI STONER, CHANI ([id number]), sports editor BRADFORD ABDUL ([id number]) on 07/20/2019 2:34:41 PM Referred By: Dakota Alfaro Confirmed By:CHANI PATTON MD
[2019-07-18 13:31] LABS: Bedside Glucose 122 mg/dL (70-110)
[2019-07-18] MEDS: Lactated Ringers 1,000 ML 100 ML IV (13:36)
[2019-07-18] MEDS: Cefazolin 2 GM in 0.9% Normal Saline 100 ML IV (14:15)
--- NOTE | 2019-07-18 14:22 | PCM.OPRPT ---
Problem List (1) Umbilical hernia Status: Acute Qualifiers: Obstruction and gangrene presence: without obstruction or gangrene Qualified Code(s): K42.9 - Umbilical hernia without obstruction or gangrene Report of Operation Date of Procedure: 07/18/19 Pre-Operative Diagnosis: Umbilical hernia without obstruction or gangrene Post-Operative Diagnosis: Same Surgery/Procedure Performed:: Umbilical herniorrhaphy with mesh Type of Anesthesia:: General Anesthesiologist: Gurdeep Dang Specimen's removed: none Drains: none Estimated Blood Loss (mL): < 25 cc Fluids Replaced: 500 cc lr Description of Procedure: Patient was brought into the operating room placed in the supine position under excellent general trach intubation the abdomen was sterilely prepped draped in usual fashion. Local was injected infraumbilically curvilinear incision was made dissection was carried down to the fascia umbilical defect was identified I took the umbilical defect off of the umbilical pin I placed it back into its preperitoneal space. I created a preperitoneal window grasping the good fascia with Leonor's and then detaching the underlying preperitoneal tissue so that I could fashion a small ventral X ST hernia patch lot number [id number] reference #[id number]. Tacked it to the surrounding fascia with #1 Nurolon's. Local was injected. Brought the umbilicus back down to the fascia with a 2-0 Vicryl. Deep dermal stitches of 3-0 Vicryl running 4-0 Monocryl on the skin Dermabond was applied sterile dressings were applied and the patient tolerated the procedure well. - Admit VTE Documentation VTE Present on Admission: No VTE Mechan Device Prophylaxis: SCD's VTE Pharm Prophylaxis ordered?: No Reason prophylaxis not ordered:: Treatment Not Indicated
--- NOTE | 2019-07-18 14:24 | DCINST_ITS ---
Discharge Diet: Light diet - advance as tolerated Discharge Activity: Return to Normal Activity, May Drive - when you are no longer taking narcotic pain medications., May Shower - with the bandage in place 1-2 days after surgery. Lifting Restrictions: 20 pounds for 8 weeks. Additional Activity Instructions:: Climbing stairs is fine, walking is encouraged. Sitting in bed may be uncomfortable. Sitting up using your lateral muscles (sitting up sideways) is usually more comfortable. Do not drive, work heavy equipment of sign legal documents for 24 hours. If your hernia repair was an ingunial repair, you may have scrotal swelling, an ice pack and/or athletic support can provide more comfort. Pain medications may cause nausea, you should typically eat light foods as you take your pain medications. Pain medications may also cause constipation. If you have difficulty with this, discuss with your doctor. Call your doctor if your incision/area has: Continuous Slow Oozing, Sudden Increased Bleeding, Increased Pain/ Swelling, Increased Redness, Foul Smelling Discharge Call your doctor if you observe: Fever of 101 or Higher Suture Line Care: Avoid Pulling/Pushing, Avoid Pinching/Bending Additional Dressing/Incision Instructions:: Leave the operative bandage on for 2-3 days. When you remove the bandage, leave the steri-strips on place until your follow up appointment or they fall off. Allergies/Adverse Reactions: Allergies rivaroxaban [From Xarelto] Allergy (Verified 07/18/19 12:47) Bleeding metoprolol Adverse Reaction (Verified 07/18/19 12:47) bradycardia Medications to take at Discharge Cyanocobalamin [Vitamin B12] 1,000 mcg IM Q30D 06/08/16 Hydrochlorothiazide [Hctz] 12.5 mg PO DAILY 06/08/16 metformin 500 mg tablet 500 mg PO DINNER 08/30/18 Acetaminophen [Tylenol Extra Strength] 500 mg PO Q4H PRN PRN #20 tab 02/09/19 Warfarin Sodium 5 mg PO MOWEFR 02/09/19 lisinopril 10 mg tablet 10 mg PO DAILY #30 tab 04/13/19 doxazosin 2 mg tablet 2 mg PO DAILY #90 tab 05/23/19 Warfarin Sodium [Coumadin] 2.5 mg PO SUTUTHSA 07/11/19 Oxycodone HCl/Acetaminophen [Percocet 5/325] 1 - 2 tablet PO Q4H PRN PRN 7 Days #30 tablet 07/18/19 The following prescriptions were given: Oxycodone HCl/Acetaminophen [Percocet 5/325] 1 - 2 tablet PO Q4H PRN PRN 7 Days #30 tablet PRN Reason: Pain Transmission Status: Sent to [facility] Primary Care Physician: Howard Escobar DO [Primary Care Provider] - Test Results: Test results from this visit will be discussed in further detail at your follow- up appointment, if applicable. Please Follow Up With: Dakota Alfaro MD - [phone] When: Plan to have a follow up appointment in 7 days. Call to schedule.
[2019-07-18] MEDS: Bupivacaine Mpf 0.5% 30 ML VIAL (14:57)
[2019-07-18 15:15] VITALS: BP 130/68; BP 152/60; PULSE 62; RESP 16; TEMP 36.1; O2SAT 97
[2019-07-18 15:30] VITALS: BP 127/84; BP 152/60; PULSE 56; RESP 16; O2SAT 93
[2019-07-18 15:36] LABS: Bedside Glucose 98 mg/dL (70-110)
[2019-07-18 15:42] VITALS: BP 132/59; BP 152/60; PULSE 65; RESP 16; O2SAT 95
[2019-07-18 16:26] VITALS: BP 130/52; BP 152/60; PULSE 65; RESP 16; TEMP 36.2; O2SAT 95
== END 2019-07-18 16:30 | disposition home or self-care (01) ==
LOC: SDC 12:26 → AC 12:29
PROVIDERS: Anesthesiology; Family Provider Family Medicine; PCP Family Medicine; Referring Provider Surgery; Visit Provider Surgery
PROC: (CPT 49585; principal; 2019-07-18 14:15)
DX: K42.9 Umbilical hernia without obstruction or gangrene (principal); I44.7 Left bundle-branch block, unspecified; E11.22 Type 2 diabetes mellitus with diabetic chronic kidney disease; I12.9 Hypertensive chronic kidney disease with stage 1 through stage 4 chronic kidney disease, or unspecified chronic kidney disease; N18.9 Chronic kidney disease, unspecified; I27.21 Secondary pulmonary arterial hypertension; I42.8 Other cardiomyopathies; I48.20 Chronic atrial fibrillation, unspecified; N40.0 Benign prostatic hyperplasia without lower urinary tract symptoms; I36.1 Nonrheumatic tricuspid (valve) insufficiency; G47.33 Obstructive sleep apnea (adult) (pediatric); E66.9 Obesity, unspecified; Z68.31 Body mass index [BMI] 31.0-31.9, adult; Z86.718 Personal history of other venous thrombosis and embolism; Z79.01 Long term (current) use of anticoagulants; Z79.84 Long term (current) use of oral hypoglycemic drugs; Z79.899 Other long term (current) drug therapy; Z87.891 Personal history of nicotine dependence
CPT/HCPCS: 00830; 49585; 36415; 80048; 82962; 83036; 85027; 85610; 93005; J7120; C1781

== ENCOUNTER 2020-03-26 10:03 | Emergency (ER) | payer MEDICARE, BC, SELFPAY ==
[2019-09-05 13:52] VITALS: BMI 32.2
[2020-03-26 10:04] VITALS: BP 148/98; PULSE 71; RESP 17; TEMP 36.8; O2SAT 97; BMI 31.6
--- NOTE | 2020-03-26 10:08 | ED.VIS.GEN ---
History of Present Illness Chief Complaint: Lower Extremity Injury Informant: Patient Narrative: 74-year-old male presenting with right knee pain. He states that it was bothering him a couple of weeks ago when he saw Dr. Lowe had a right knee injection. This helped initially. Patient states he was weed eating this week and his knee pain came back. He is ambulatory. He has had no redness. He denies any direct trauma. I did call Dr. Lowe to get a follow-up appointment and could not get in. He was told to come to the emergency room. Past Medical History - Allergies and Home Meds Allergies/Adverse Reactions: Allergies rivaroxaban [From Xarelto] Allergy (Verified 03/26/20 10:03) Bleeding metoprolol Adverse Reaction (Verified 03/26/20 10:03) bradycardia Primary Care Physician: Howard Escobar DO [Primary Care Provider] - Prior records reviewed: Yes Surgical History: TURP, - - Heart Muscle Reduction intervention secondary to Dilated Cardiomyopathy, Severel Cystoscopic interventions. Smoking Status: Unknown if ever smoked Alcohol: None Drugs: None - Family History Paternal Family History: Family History (Last Reviewed 09/05/19 @ 13:29 by Eda Ingram) Father Heart disease Sister Heart disease Brother Heart disease Family History: Reports: Heart Disease Maternal Family History: Family History (Last Reviewed 09/05/19 @ 13:29 by Eda Ingram) Father Heart disease Sister Heart disease Brother Heart disease Family History: Reports: Hypertension, Stroke Review of Systems General: Denies: Chills, Fever, Sweats Eyes: Denies: Visual changes - bilaterally, Diplopia ENT: Denies: Rhinorrhea, Sore throat Cardiovascular: Denies: Chest pain, Palpitations Respiratory: Denies: Dyspnea, Cough, Dyspnea on exertion Gastrointestinal: Denies: Abdominal pain, Nausea, Vomiting, Diarrhea, Melena, Hematochezia Genitourinary: Denies: Dysuria, Hematuria, Frequency Musculoskeletal: Reports: Extremity Pain - Right knee pain. Denies: Back pain Skin: Denies: Rash, Wounds Neurological: Denies: Headache, Weakness, Numbness Physical Exam Vital Signs/Narrative: Vital Signs Temp Pulse Resp BP Pulse Ox 03/26/20 10:04 98.2 F 71 17 148/98 H 97 General: Well nourished, Well developed, No Acute Distress Head: Normocephalic, Atraumatic Eyes: Perrl, EOMI ENT: Moist mucous membranes, No rhinorrhea Neck: Supple, Nontender Cardiovascular: Regular rate, Regular rhythm, No murmurs Respiratory: No distress, CTA bilaterally, Chest nontender Abdomen: Soft, Nontender, Nondistended, Normal bowel sounds Back: Nontender, Normal Inspection Extremities: Tenderness - Tenderness to palpation of the inferior portion of the anterior right knee. There is no significant swelling here. There is no ecchymosis. There is no ligament laxity. There is some tenderness to palpation in the popliteal region however there is no significant swelling. No pain with short arc range of motion. No cellulitic change overlies the knee. Skin: Normal color, No rash Neurological: Alert, Oriented x3, Cranial nerves II-XII grossly intact, Normal Strength, Normal Sensation Psychological: Normal affect, Normal Mood Diagnostic/Tx/Re-eval - Medical Decision Making Presents with mild knee pain. He is ambulatory. He has no signs of infection of his knee. He states he just had an injection 2 weeks ago but after weed eating his knee was hurting worse. He did request another knee x-ray which showed degenerative changes and a slight effusion. I do not suspect an infectious etiology at this point. He will follow-up with Dr. Lowe on an outpatient basis. Impression: 1. Knee strain ED Disposition - Plan for ED Patient: Disposition: Home or Assisted Living Instructions: ED Sprain Knee Referrals: Howard Escobar DO [Primary Care Provider] -
--- NOTE | 2020-03-26 10:24 | RAD_ITS ---
STUDY: X-RAY - RIGHT KNEE REASON FOR EXAM: Male, 74 years old. Steroid injection 2 weeks ago -- increasing pain since night, NKI TECHNIQUE: Four view(s) of the knee. COMPARISON: None. FINDINGS: Normal visualized distal femur. Normal visualized proximal tibia and fibula. Normal proximal tibiofibular articulation. There is mild degenerative arthrosis of the medial femorotibial compartment. Normal lateral femorotibial compartment. There is moderate degenerative arthrosis of the patellofemoral articulation. Moderate joint effusion. Soft tissue swelling. RAD/Knee 4 or More Views IMPRESSION: Degenerative arthrosis. Joint effusion and soft tissue swelling. Electronically Signed: Joel Fuentes, at 10:58 EDT , Service support ,
[2020-03-26] MEDS: Acetaminophen 325 MG Tablet 650 MG PO (10:29)
[2020-03-26] MEDS: Lidocaine 5% Patch 1 PATCH TOPICAL (11:16)
== END 2020-03-26 12:11 | disposition home or self-care (01) ==
PROVIDERS: Emergency Provider Student in an Organized Health Care Education/Training Program; PCP Family Medicine
DX: S89.91XA Unspecified injury of right lower leg, initial encounter (principal); X58.XXXA Exposure to other specified factors, initial encounter; Y93.9 Activity, unspecified; Y92.9 Unspecified place or not applicable
CPT/HCPCS: 73564; 99283

== ENCOUNTER → 2020-05-02 13:47 | Outpatient (CLI) | payer MEDICARE, BC, SELFPAY ==
[2020-04-19 11:00] VITALS: BMI 26.2
--- NOTE | 2020-05-02 13:49 | ECHOCS_ITS ---
Reason For Study: Afib/Flutter Procedure This was a 2D Doppler, Color Flow transthoracic echocardiogram. The study was technically difficult. Contrast injection was performed. Exam performed in department. Left Ventricle Moderate assymetric septal hypertrophy. Base of septum normal thickness. Normal LV size. Left ventricular systolic function is normal. The estimated ejection fraction is 65 %. Stage 3 diastolic dysfunction. Septal motion consistent with IVCD. No regional wall motion abnormalities noted. Right Ventricle Normal RV size. Normal systolic function. Atria The left atrium is moderately enlarged. Normal right atrium. Mitral Valve Normal mitral valve. Mild (1+) eccentric mitral valve insufficiency. Tricuspid Valve Normal tricuspid valve. Mild to moderate (1-2+) tricuspid valve insufficiency. Pulmonary artery systolic pressure is 40 mmHg. Aortic Valve Trisinus/trileaflet aortic valve. Mild focal aortic valve calcification. Mild (1+) aortic valve insufficiency. Pulmonic Valve The pulmonic valve is not well visualized. Great Vessels Normal aortic root. The pulmonary artery is normal size. Normal inferior vena cava. Pericardium/Pleural No pericardial effusion. Medication 22 gauge I.V. with prn adaptor inserted into right arm. Diluted definity 3ml given slow IV push to enhance endocardial definition. MMode/2D Measurements & Calculations LVIDd: 4.3 cm IVSd: 1.8 cm Ao root diam: 2.8 cm LVIDs: 3.5 cm LVPWd: 1.1 cm LA dimension: 4.0 cm FS: 19.2 % LAV(MOD-bp): 100.3 ml LA A4 area: 30.0 cm2 RA A4 area: 18.4 cm2 LAV(MOD-bp) Indexed: 53.1 ml/m2 LAV(MOD-sp2): 93.8 ml LAV(MOD-sp4): 102.7 ml Time Measurements MV dec time: 0.19 sec Doppler Measurements & Calculations MV E max babar: 112.5 cm/sec Lat Peak E' Babar: 11.4 cm/sec Med Peak E' Babar: 4.6 cm/sec MV A max babar: 29.7 cm/sec E/E' lat: 9.8 E/E' med: 24.6 MV E/A: 3.8 MV V2 max: 106.4 cm/sec MV P1/2t max babar: 106.4 cm/sec Ao V2 max: 169.1 cm/sec MV max P.5 mmHg MV P1/2t: 103.4 msec Ao max P.4 mmHg MV V2 mean: 54.5 cm/sec MV dec slope: 301.4 cm/sec2 MV mean P.4 mmHg MV V2 VTI: 27.1 cm MVA(P1/2t): 2.1 cm2 LV V1 max: 143.7 cm/sec PA V2 max: 115.6 cm/sec TR max babar: 298.0 cm/sec LV V1 max P.3 mmHg TR max P.5 mmHg Interpretation Summary Normal LV size. Moderate assymetric septal hypertrophy. Base of septum normal thickness The estimated ejection fraction is 65 %. Stage 3 diastolic dysfunction. Septal motion consistent with IVCD. Contrast injection was performed. Ordering Physician: Jairo Turk Referring Physician: Howard Escobar Performed By: Salvatore Lemon, [facility]
== END ==
PROVIDERS: PCP Family Medicine; Referring Provider Internal Medicine Cardiovascular Disease; Visit Provider Internal Medicine Cardiovascular Disease
DX: I42.2 Other hypertrophic cardiomyopathy (principal)
CPT/HCPCS: 93306; Q9957; A4216; C8929

== ENCOUNTER → 2020-12-19 15:40 | Outpatient (CLI) | payer MEDICARE, BC, SELFPAY ==
[2020-12-19 14:44] VITALS: BMI 32.3
[2020-12-19 16:58] LABS: Absolute Lymphocyte Count 1.49 X10^3/uL (0.83-4.51); Absolute Neutrophil Count 4.7 X10^3/uL (2.0-7.7); Basophil# 0.07 X10^3/uL; Eosinophil# 0.11 X10^3/uL; Eosinophils% 1.5 % (0-5); Hematocrit 45.7 % (40-54); Hemoglobin 14.3 g/dL (13.0-16.5); Lymphocyte # 1.49 X10^3/ul (0.83-4.51); Lymphocyte % 20.5 % (19-41); Mean Corp Hgb Conc 31.3 g/dL (32-36); Mean Corpuscular Hgb 28.5 pg (27.0-32.0); Mean Platelet Vol. 12.6 fl (6.2-12.0); Monocyte# 0.83 X10^3/uL; Monocyte% 11.4 % (0-10); NRBC Flagged by Analyzer 0 % (0-5); Neutrophil # 4.74 X10^3/uL (2.7-7.7); Neutrophil % 65.3 % (47-70); Platelet Count 189 K/mm3 (150-450); RBC Distribution Width CV 14.4 % (11.6-14.6); Red Blood Count 5.02 M/mm3 (4.6-6.2); White Blood Count 7.3 K/mm3 (4.4-11.0)
[2020-12-19 17:15] LABS: Anion Gap 6 (5-15); BUN 31 mg/dL (7-18); BUN/Creat Ratio 22.6 RATIO (10-20); Calcium,Total 9.5 mg/dL (8.5-10.1); Chloride 107 mmol/L (98-107); Creatinine, Serum 1.37 mg/dL (0.70-1.30); EST Glomerular Filtration Rate 54 mL/min (>60); Est Glom Filt Rate - Afr Amer 65 mL/min (>60); Glucose 89 mg/dL (74-106); Potassium 4.2 mmol/L (3.5-5.1); Sodium Level 140 mmol/L (136-145)
== END ==
PROVIDERS: PCP Family Medicine; Visit Provider Physician Assistant Medical
DX: I42.8 Other cardiomyopathies (principal); I48.11 Longstanding persistent atrial fibrillation; R00.1 Bradycardia, unspecified; R06.00 Dyspnea, unspecified; E78.5 Hyperlipidemia, unspecified
CPT/HCPCS: 36415; 80048; 83880; 85025

== ENCOUNTER 2020-12-22 11:23 | Inpatient (IN) | payer MEDICARE, BC, SELFPAY ==
[2020-12-19 14:44] VITALS: BMI 32.3
[2020-12-22] VITALS (15 sets, daily range): BP systolic 120–182; BP diastolic 47–94; PULSE 79–116; RESP 12–30; TEMP 36.8–37.9; O2SAT 91–98; BMI 32.9; BMI 32.1
--- NOTE | 2020-12-22 11:39 | EKG12_ITS ---
Test Reason : SOB Blood Pressure : / mmHG Vent. Rate : 114 BPM Atrial Rate : 110 BPM P-R Int : 000 ms QRS Dur : 144 ms QT Int : 304 ms P-R-T Axes : 000 033 203 degrees QTc Int : 419 ms Atrial fibrillation Left bundle branch block Abnormal ECG Confirmed by ABDI STONER, CHANI ([id number]), features editor VIOLETA VILLALBA ([id number]) on 12/26/2020 8:30:18 AM Referred By: BALTAZAR Confirmed By:CHANI PATTON MD
[2020-12-22 12:32] LABS: Absolute Lymphocyte Count 0.64 X10^3/uL (0.83-4.51); Absolute Neutrophil Count 15.6 X10^3/uL (2.0-7.7); Basophil# 0.07 X10^3/uL; Basophil% 0.4 % (0-1); Eosinophil# 0.03 X10^3/uL; Eosinophils% 0.2 % (0-5); Hemoglobin 14.9 g/dL (13.0-16.5); Lymphocyte # 0.64 X10^3/ul (0.83-4.51); Lymphocyte % 3.7 % (19-41); Mean Corp Hgb Conc 31.7 g/dL (32-36); Mean Corpuscular Hgb 28.4 pg (27.0-32.0); Mean Corpuscular Volume 89.7 fL (80-94); Mean Platelet Vol. 12.2 fl (6.2-12.0); Monocyte# 1.12 X10^3/uL; Monocyte% 6.4 % (0-10); NRBC Flagged by Analyzer 0 % (0-5); Platelet Count 189 K/mm3 (150-450); RBC Distribution Width CV 14.3 % (11.6-14.6); RBC Distribution Width SD 47.3 fl (35.1-43.9); Red Blood Count 5.24 M/mm3 (4.6-6.2); White Blood Count 17.5 K/mm3 (4.4-11.0)
--- NOTE | 2020-12-22 12:35 | RAD_ITS ---
EXAM: XR CHEST, 1 VIEW CLINICAL INDICATION: SOB TECHNIQUE: Frontal view of the chest. This report was created using [employer] report generation technology. COMPARISON: None. FINDINGS: LUNGS AND PLEURAL SPACES: Prominent interstitial markings which may reflect pulmonary edema. No focal infiltrate is seen. No pneumothorax. No effusion. HEART: Status post mediastinotomy. Mild cardiomegaly. MEDIASTINUM: Central airways and mediastinal contour are unremarkable. BONES/JOINTS: Unremarkable. SOFT TISSUES: Unremarkable. RAD/Chest 1 View (Portable) IMPRESSION: 1. Prominent interstitial markings which may reflect pulmonary edema. 2. No focal infiltrate is seen. Electronically Signed: Mj Rice MD at 13:05 EDT Tel , Service support ,
[2020-12-22 12:36] LABS: BNP,B-Type NATRIURETIC PEPTIDE 135.5 pg/mL (0-100)
[2020-12-22 12:37] LABS: Lactic Acid 1.4 mmol/L (0.4-1.9)
[2020-12-22 12:38] LABS: Anion Gap 2 (5-15); BUN 26 mg/dL (7-18); BUN/Creat Ratio 18.8 RATIO (10-20); Calcium,Total 9.1 mg/dL (8.5-10.1); Chloride 107 mmol/L (98-107); Creatinine, Serum 1.38 mg/dL (0.70-1.30); EST Glomerular Filtration Rate 53 mL/min (>60); Est Glom Filt Rate - Afr Amer 64 mL/min (>60); Estimated Creatinine Clearance 38.99 ml/min; Glucose 139 mg/dL (74-106); International Normalized Ratio 2.4; Potassium 4.2 mmol/L (3.5-5.1); Prothrombin Time (Protime)PT. 25.6 SECONDS (11.7-14.9); Sodium Level 136 mmol/L (136-145)
[2020-12-22] MEDS: Acetaminophen 500 MG Tablet 1000 MG PO (12:49)
[2020-12-22 13:09] LABS: Bacteria 0 SEEN /hpf (None Seen); Mucous, Urine 0 SEEN /hpf (<or=2+); Red Blood Cells-Urine 0 SEEN /hpf (0-5); Squamous Epithelial Cells - UA 0 SEEN /hpf (0-5); White Blood Cells 0 SEEN /hpf (0-5)
[2020-12-22 13:13] LABS: Color, Urine Yellow (Yellow); Glucose, Dipstick Normal (Normal); Ketone-Dipstick Negative (Negative); Leukocyte Esterase-Dipstick Negative /ul (Negative); Nitrite-Dipstick Negative (Negative); Occult Blood-Urine Negative /ul (Negative); Protein-Dipstick 30 mg/dl (Negative); Specific Gravity, Urine 1.015 (1.002-1.030); Urine Bilirubin Dipstick Negative (Negative); Urine Clarity Clear (Clear); Urine Urobilinogen Normal (Normal)
--- NOTE | 2020-12-22 13:28 | ED.VISSUMM ---
- ER Visit Summary Date of Service: 12/22/20 Chief Complaint: Shortness of breath History of Present Illness: The patient is a [address] Turk and Dr. Escobar. Here shortness of breath has been present for 2 months. Worsening this morning. Severe at worst moderate currently. Is worsened by walking around laying flat. He has had chills. He denies fever. He denies cough. He denies chest pain. Patient has not had a Covid vaccine. He reports that he does do daily weights. His goal is 170 pounds. However, he reports that he is been 190 pounds 4 months and cannot get this weight off. Physical Examination: Vitals: 100.3, 163/80, 116, 30, 90% on 4 L nasal cannula General: Well-nourished and well-developed. Head: Normocephalic atraumatic. Neck: Supple, no lymphadenopathy. No JVD. Nontender. Cardiovascular: Tachycardic regular rhythm. No murmurs. Respiratory: No respiratory distress. Clear to auscultation bilaterally. Poor air movement. Abdominal: Soft, nontender, nondistended, normal bowel sounds. No guarding, rebound, or peritoneal signs. Back: Nontender. Extremities: Nontender, 1+ edema lower extremities bilaterally. Skin: Normal color, no rash. Neurologic: Alert and oriented ?3. Cranial nerves II through XII are intact. Normal strength and sensation. Psych: Normal affect. Test Results: EKG is A. fib at 114 with a left bundle branch block. Troponin 0 0.089. BNP is 135.5. Lactic acid is 1.4. INR is 2.4. Covid is negative. UA is normal. Chem-7 shows a BUN of 26, creatinine 1.38, glucose 139. CBC shows a white count of 17.5 with 89 segmented neutrophils and 4 lymphocytes. Clinical Impression(s) from Imaging Studies Chest X-Ray 12/22/20 12:35 IMPRESSION: 1. Prominent interstitial markings which may reflect pulmonary edema. 2. No focal infiltrate is seen. Electronically Signed: Mj Rice MD at 13:05 EDT Tel , Service support , Emergency Department Course and Treatment: Patient was placed on oxygen. Is given Tylenol p.o. He is resting comfortably. He does have a low-grade fever here and leukocytosis. He was given Rocephin and Zithromax IV. Treatment Plan: Patient was discussed with Dr. Guillory. He will be admitted the hospital for further evaluation and treatment. Disposition: Admitted in improved condition. Impression: 1. Sepsis. 2. Chronic renal insufficiency. 3. Atrial fibrillation with RVR. 4. Hypoxia. 5. Coumadin coagulopathy. 6. Indeterminate troponin. This note was generated with [employer] software. It may contain incorrect words, spelling, and punctuation that were not noted in review of the chart prior to signing ED Disposition - Plan for ED Patient: Referrals: Howard Escobar DO [Primary Care Provider] -
--- NOTE | 2020-12-22 13:38 | CT_ITS ---
STUDY: CT CHEST WITHOUT CONTRAST REASON FOR EXAM: Male, 75 years old. Pneumonia RADIATION DOSAGE (If Supplied By Facility): CTDIvol = ( 19.44 ) mGy, DLP = ( 680.19 ) mGycm TECHNIQUE: Transaxial imaging was performed without the administration of intravenous contrast material. Individualized dose optimization techniques were used for this CT. COMPARISON: None. FINDINGS: Patchy bilateral infiltrates concerning for multifocal pneumonia including Covid 19. Mild prominence of the pulmonary vasculature. Compressive atelectatic changes in the right lung base. Small bilateral pleural effusions. Sternal cerclage wires are present from a prior sternotomy. There are calcifications of the coronary arteries. Multiple small mediastinal nodes likely reactive. Normal hilar regions. Normal unenhanced pulmonary arteries. There is atherosclerotic calcification of the aortic arch with tortuosity and elongation of the aortic arch and descending thoracic aorta. There are calcifications of the aortic root and valve. There are multi-level degenerative changes of the thoracic spine. Mineralization of the osseous structures and increased kyphosis. The visualized upper abdomen demonstrate no acute process. CT/Chest without Contrast IMPRESSION: 1. Patchy bilateral infiltrates concerning for multifocal pneumonia. 2. Small bilateral pleural effusions. 3. Mediastinal nodes likely reactive. Electronically Signed: Mj Rice MD at 15:14 EDT Tel , Service support ,
--- NOTE | 2020-12-22 13:39 | HP.PCM_ITS ---
Problem List (1) Left ventricular diastolic dysfunction Status: Chronic (2) Hypertrophic cardiomyopathy Status: Chronic Comment: septal myectomy (3) Non-ischemic cardiomyopathy Status: Chronic (4) Longstanding persistent atrial fibrillation Status: Chronic (5) Non-rheumatic tricuspid valve insufficiency Status: Chronic (6) Secondary pulmonary arterial hypertension Status: Chronic (7) Left bundle branch block Status: Chronic (8) Essential (primary) hypertension Status: Chronic (9) HLD (hyperlipidemia) Status: Chronic Qualifiers: Hyperlipidemia type: unspecified Qualified Code(s): E78.5 - Hyperlipidemia, unspecified (10) Renal infarct Status: Chronic Comment: right (11) Exertional dyspnea Status: Acute (12) Elevated troponin Status: Acute (13) Leucocytosis Status: Acute History of Present Illness Date of Admission: 12/22/20 Chief Complaint: Shortness of breath The patient is a 75 year old M with past medical history segment for essential hypertension, diabetes mellitus type 2, persistent nonrheumatic atrial fibrillation who presented with shortness of breath. Patient reports weeks of exertional shortness of breath with minimal activity. On the morning of her admission shortness of breath became more intense. In addition patient did complain of some discomfort around the neck with persistent cough and sputum production. Presented to the emergency department as a result. In the ED chest x-ray obtained was questionable for interstitial edema patient was however found to have elevated white cell count and low-grade fever. A suspicion of possible acute infectious bronchitis was made. His initial Covid assay came back neg ative. He was admitted to monitored bed for subsequent management in view of slightly elevated troponin Past Medical History Past Medical History (Chronic Problems): Chronic Problems (Last Reviewed 12/22/20 @ 13:[address] Lee Guillory MD) Left ventricular diastolic dysfunction (Chronic) Hypertrophic cardiomyopathy (Chronic) septal myectomy Non-ischemic cardiomyopathy (Chronic) Longstanding persistent atrial fibrillation (Chronic) Non-rheumatic tricuspid valve insufficiency (Chronic) Secondary pulmonary arterial hypertension (Chronic) Left bundle branch block (Chronic) Essential (primary) hypertension (Chronic) HLD (hyperlipidemia) (Chronic) Renal infarct (Chronic) right Medical History: Medical History (Last Reviewed 12/22/20 @ 13:[address] Lee Guillory MD) Left ventricular diastolic dysfunction (Chronic) I51.9 Hypertrophic cardiomyopathy (Chronic) I42.2 septal myectomy Non-ischemic cardiomyopathy (Chronic) I42.8 Longstanding persistent atrial fibrillation (Chronic) I48.11 Non-rheumatic tricuspid valve insufficiency (Chronic) I36.1 Secondary pulmonary arterial hypertension (Chronic) I27.21 Left bundle branch block (Chronic) I44.7 Essential (primary) hypertension (Chronic) I10 HLD (hyperlipidemia) (Chronic) E78.5 Renal infarct (Chronic) N28.0 right BPH (benign prostatic hyperplasia) N40.0 KIMBERLY (obstructive sleep apnea) G47.33 AHI overall 73.6 Obesity (BMI 30.0-34.9) E66.9 Umbilical hernia K42.9 History of tobacco use (Inactive) Z87.891 Allergies rivaroxaban [From Xarelto] Allergy (Verified 12/22/20 11:29) Bleeding metoprolol Adverse Reaction (Verified 12/22/20 11:29) bradycardia Home Medications: Ambulatory Orders Medication Instructions Recorded Cyanocobalamin [Vitamin B12] 1,000 mcg IM Q30D 06/08/16 Acetaminophen [Tylenol Extra 500 mg PO Q4H PRN PRN #20 tab 02/09/19 Strength] Warfarin Sodium 5 mg PO MOWEFR 02/09/19 Warfarin Sodium [Coumadin] 2.5 mg PO SUTUTHSA 07/11/19 doxazosin 2 mg tablet 2 mg PO DAILY #90 tab 06/10/20 finasteride 5 mg tablet 5 mg PO DAILY tablet 12/19/20 glimepiride 1 mg tablet 0.5 mg PO DAILY tablet 12/19/20 hydrochlorothiazide 25 mg tablet 25 mg PO DAILY tablet 12/19/20 lisinopril 20 mg tablet 40 mg PO DAILY #90 tablet 12/19/20 Surgical History: Surgical History (Last Reviewed 12/22/20 @ 13:[address] Lee Guillory MD) History of ventricular septal myectomy (Resolved) Onset Date: [address] [facility] [address] Ray History of appendectomy Z90.49 History of transurethral resection of prostate Onset Date: 01/2019 Z98, Z90.79 Hx of umbilical hernia repair Z98.89, Z87.19 07/18/19 Surgical History: TURP, - - Heart Muscle Reduction intervention secondary to Dilated Cardiomyopathy, Severel Cystoscopic interventions. Psychiatric History: No pertinent psych hx Smoking Status: Former smoker - *Family History Paternal Family History: Family History (Last Reviewed 12/22/20 @ 13:[address] Lee Guillory MD) Father Heart disease Sister Heart disease Brother Heart disease History Items: Heart Disease Maternal Family History: Family History (Last Reviewed 12/22/20 @ 13:[address] Lee Guillory MD) Father Heart disease Sister Heart disease Brother Heart disease History Items: Hypertension, Stroke Review of Systems Constitutional: Reports: Fatigue HEENT: Denies: Head Aches, Sinus Congestion, Sinus Drainage Cardiovascular: Reports: Palpitations Respiratory: Reports: Cough, Shortness of Breath, Shortness of breath upon exertion Gastrointestinal: Denies: Abdominal Pain, Hematemesis, Hematochezia, Nausea, Melena, Vomiting Genitourinary: Denies: Dysuria, Frequency, Hematuria, Urgency Musculoskeletal: Denies: Joint Pain, Joint Tenderness Skin: Denies: Rash Neurological: Denies: Focal weakness, Numbness, Tingling Psychiatric: Denies: Homicidal Ideations, Suicidal Ideations VTE Information - Inpt Only VTE Present on Admission: No VTE Mechan Device Prophylaxis: None VTE Pharm Prophylaxis ordered?: Yes Patient Problems: Active and Suspected Problems (Last Reviewed 12/22/20 @ 13:[address] Lee Guillory MD) Exertional dyspnea (Acute) Elevated troponin (Acute) Leucocytosis (Acute) Objective: GENERAL: cooperative HEENT: Atraumatic; EYES; Anicteric, Normal Conjunctiva NECK; supple, normal thyroid, RESPIRATORY: Diminished to auscultation CARDIOVASCULAR: Irregularly irregular tachycardic GI: soft, normoactive bowel sounds, : No Renal angle tenderness; EXTREMITIES: No edema, no clubbing, MUSCULOSKELETAL: no muscle waisting NEURO: Awake; no lateralizing signs. SKIN: No Rash PSYCH; Flat affect - Physical Exam Vitals/I&O's: Vital Signs Temp Pulse Resp BP Pulse Ox 100.3 F H 116 H 30 H 163/80 H 92 12/22/20 12:27 12/22/20 12:27 12/22/20 12:27 12/22/20 12:27 12/22/20 12:27 Oxygen Flow Rate (L/min) 4 Oxygen Delivery Method Nasal Cannula Weight: 89.721 kg Body Mass Index (BMI) 32.9 Finger Stick Blood Glucose 136 Microbiology Past 72 Hours 12/22/20 12:04 Nasal Secretion SARS-CoV-2 Antigen (Rapid) - Final Laboratory Results 12/22/20 12:04: WBC 17.5 H, RBC 5.24, Hgb 14.9, Hct 47.0, MCV 89.7, MCH 28.4, MCHC 31.7 L, RDW Std Deviation 47.3 H, RDW Coeff of Kiersten 14.3, Plt Count 189, MPV 12.2 H, Immature Gran % (Auto) 0.300, Neut % (Auto) 89.0 H, Lymph % (Auto) 3.7 L, [place] % (Auto) 6.4, Eos % (Auto) 0.2, Baso % (Auto) 0.4, Absolute Neuts (auto) 15.6 H, Absolute Lymphs (auto) 0.64 L, Nucleated RBC % 0 12/22/20 12:04: Sodium 136, Potassium 4.2, Chloride 107, Carbon Dioxide 27.0, Anion Gap 2 L, BUN 26 H, Creatinine 1.38 H, Estim Creat Clear Calc 38.99, Est GFR (MDRD) Af Amer 64, Est GFR (MDRD) Non-Af 53 L, BUN/Creatinine Ratio 18.8, Glucose 139 H, Calcium 9.1, Troponin I 0.089 H 12/22/20 12:04: Lactic Acid 1.4 12/22/20 12:04: B-Natriuretic Peptide 135.5 H 12/22/20 12:04: PT 25.6 H, INR 2.4 12/22/20 13:00: Urine Color Yellow, Urine Clarity Clear, Urine pH 5.0, Ur Specific [place] 1.015, Urine Protein 30 H, Urine Glucose (UA) Normal, Urine Ketones Negative, Urine Occult Blood Negative, Urine Nitrite Negative, Urine Bilirubin Negative, Urine Urobilinogen Normal, Ur Leukocyte Esterase Negative, Urine RBC 0 SEEN, Urine WBC 0 SEEN, Ur Squamous Epith Cells 0 SEEN, Urine Bacteria 0 SEEN, Urine Mucus 0 SEEN Current Medications Azithromycin 500 mg/ Dextrose 255 mls @ 250 mls/hr IV X1 ONE Stop: 12/22/20 14:29 Ceftriaxone Sodium (Rocephin) 1 gm in 50 mls @ 100 mls/hr IV X1 ONE Stop: 12/22/20 13:57 Assessment/Plan All Active Problems (Last Reviewed 12/22/20 @ 13:[address] Lee Guillory MD) Exertional dyspnea (Acute) Elevated troponin (Acute) Leucocytosis (Acute) History of ventricular septal myectomy (Resolved 2000) Patient is a 75-year-old gentleman presented with exertional dyspnea found to have leukocytosis, elevated troponin as well as low-grade fever 1. Suspected acute infectious bronchitis ?Patient has been admitted to a monitored bed. Patient was started on Rocephin and Zithromax from the ED did continue. As part of his management ordered blood and sputum cultures, CT of the chest to rule out pneumonia patient was also placed on supplemental oxygen titrated to keep saturation greater than 90. His initial COVID-19 assay came back negative however ordered PCR for confirmation since patient has not received the vaccine 2. Elevated troponin ?Patient reports exertional dyspnea. Admitted to monitored bed ordered 2D echo for regional wall motion abnormalities. Also ordered serial cardiac enzymes. If patient troponin continues to trend up will obtain cardiology consultation 3. Hypertension - Blood pressure controlled, home medications continued with dose adjustment as needed 4. Diabetes mellitus type II -patient's oral hypoglycemics held. Placed on long acting insulin, Accu-Cheks a.c. and at bedtime and covered with sliding scale insulin 5. Chronic A. fib ?Rate is controlled. Patient is on systemic anticoagulation with Coumadin with a therapeutic INR 6. BPH ?Patient is on finasteride 7. DVT prophylaxis -patient is on Coumadin with a therapeutic INR Advance planning; did discuss with the patient and family regarding advanced directives as well as CODE STATUS. Did explain the various scenarios involved ( FULL CODE, DNR CCA, DNR CCA with no intubation, and DNR CC and what each meant) patient elected to be DNR CCA no intubation. Order was placed. Time spent on discussion 18 minutes. Inpatient E&M: 56435 Init Hosp L3 Procedures: 39655 Advncd Care Plan 30 Min
[2020-12-22] MEDS: Ceftriaxone 1 GM/50 ML BAG IV (14:09)
[2020-12-22 16:25] LABS: Probe Check PASS; Specimen Processing Control PASS
--- NOTE | 2020-12-22 16:48 | ECHOCS_ITS ---
Reason For Study: CHF Procedure This was a 2D Doppler, Color Flow transthoracic echocardiogram. The study was technically difficult. Contrast injection was performed. Exam performed portable in patient room. Left Ventricle Normal LV size. Mild segmental systolic dysfunction (see wall motion). The estimated ejection fraction is 45 %. Unable to assess diastolic dysfunction. Infero-Basal: Hypokinetic. Basal inferoseptal: Dyskinetic. Basal anteroseptal: Hypokinetic. Mid-Lateral : Hypokinetic. Mid-Inferior: Hypokinetic. Mid-inferoseptal : Hypokinetic. Mid-anteroseptal : Hypokinetic. Anterior [place] : Not visualized. Inferior [place] : Not visualized. Lateral [place] : Hypokinetic. Septal [place] : Hypokinetic. Right Ventricle Normal RV size. Normal systolic function. Atria The left atrium is moderately enlarged. The right atrium is mildly enlarged. No doppler evidence for ASD. Mitral Valve There is mild to moderate mitral annular calcification. Extension of the mitral annular calcification onto the mitral valve leaflets. Mild-Moderate (1-2+) mitral valve insufficiency. Tricuspid Valve Normal tricuspid valve. Mild to moderate (1-2+) tricuspid valve insufficiency. Right ventricular systolic pressure estimated to be 53 mmHg. Aortic Valve Trisinus/trileaflet aortic valve. Mild diffuse aortic valve calcification. Pulmonic Valve The pulmonic valve is not well visualized. Trivial pulmonic valve insufficiency. Great Vessels Normal sized aortic root. Calcified aortic root. Pericardium/Pleural No pericardial effusion. Medication Diluted definity 4.0ml given slow IV push to enhance endocardial definition. MMode/2D Measurements & Calculations LVIDd: 4.8 cm IVSd: 0.89 cm LVOT diam: 2.0 cm LVIDs: 3.7 cm LVPWd: 0.98 cm RVDd: 4.7 cm FS: 23.3 % LVOT area: 3.0 cm2 Ao root diam: 3.3 cm LAV(MOD-bp): 95.4 ml LVAd ap4: 33.1 cm2 LAV(MOD-bp) Indexed: 48.5 ml/m2 LVLd ap4: 7.1 cm LAV(MOD-sp2): 101.2 ml EDV(MOD-sp4): 126.6 ml LAV(MOD-sp4): 89.0 ml EDV(sp4-el): 130.2 ml LVAs ap4: 22.9 cm2 LVLs ap4: 6.5 cm ESV(MOD-sp4): 67.4 ml ESV(sp4-el): 68.9 ml EF(MOD-sp4): 46.7 % EF(sp4-el): 47.1 % LVAd ap2: 33.7 cm2 SV(MOD-sp4): 59.1 ml SV(MOD-sp2): 43.2 ml LVLd ap2: 7.6 cm EDV(MOD-sp2): 123.7 ml EDV(sp2-el): 126.4 ml LVAs ap2: 25.2 cm2 LVLs ap2: 6.7 cm ESV(MOD-sp2): 80.6 ml ESV(sp2-el): 80.9 ml EF(MOD-sp2): 34.9 % SV(sp4-el): 61.3 ml LA dimension(2D): 6.2 cm LA A4 area: 26.6 cm2 RA A4 area: 19.6 cm2 Time Measurements MV dec time: 0.17 sec Doppler Measurements & Calculations MV E max john: 110.5 cm/sec Ao V2 max: 188.2 cm/sec LV V1 max: 157.3 cm/sec Ao max P.2 mmHg LV V1 max P.9 mmHg LUCHO(V,D): 2.5 cm2 TR max john: 351.8 cm/sec TR max P.5 mmHg ECHO/Echo Complete W/ Contrast Interpretation Summary The study was technically difficult. Contrast injection was performed. Mild segmental systolic dysfunction (see wall motion). The estimated ejection fraction is 45 %. The left atrium is moderately enlarged. The right atrium is mildly enlarged. There is mild to moderate mitral annular calcification. Extension of the mitral annular calcification onto the mitral valve leaflets. Mild-Moderate (1-2+) mitral valve insufficiency. Mild to moderate (1-2+) tricuspid valve insufficiency. Mild diffuse aortic valve calcification. Trivial pulmonic valve insufficiency. Calcified aortic root. Right ventricular systolic pressure estimated to be 53 mmHg. Unable to assess diastolic dysfunction. Ordering Physician: Lee Guillory Referring Physician: ESTELLA BAL Performed By: Kristy Parisi, KWAKUCS, RVT
[2020-12-22 17:30] LABS: Bedside Glucose 133 mg/dL (70-110)
[2020-12-22] MEDS: Albuterol 2.5 MG/3 ML VIAL.NEB. INHALATION (19:46)
[2020-12-22 22:21] LABS: Bedside Glucose 125 mg/dL (70-110)
[2020-12-23] VITALS (13 sets, daily range): BP systolic 110–135; BP diastolic 51–85; PULSE 66–86; RESP 16–18; TEMP 36.7–37.6; O2SAT 94–95
[2020-12-23 05:00] LABS: Absolute Lymphocyte Count 0.99 X10^3/uL (0.83-4.51); Absolute Neutrophil Count 16.7 X10^3/uL (2.0-7.7); Basophil# 0.04 X10^3/uL; Basophil% 0.2 % (0-1); Eosinophil# 0.01 X10^3/uL; Eosinophils% 0.1 % (0-5); Hematocrit 38.9 % (40-54); Hemoglobin 12.6 g/dL (13.0-16.5); Lymphocyte # 0.99 X10^3/ul (0.83-4.51); Lymphocyte % 5.2 % (19-41); Mean Corp Hgb Conc 32.4 g/dL (32-36); Mean Corpuscular Hgb 28.9 pg (27.0-32.0); Mean Corpuscular Volume 89.2 fL (80-94); Mean Platelet Vol. 12.1 fl (6.2-12.0); Monocyte# 1.11 X10^3/uL; Monocyte% 5.9 % (0-10); NRBC Flagged by Analyzer 0 % (0-5); Neutrophil # 16.67 X10^3/uL (2.7-7.7); Neutrophil % 88.2 % (47-70); Platelet Count 163 K/mm3 (150-450); RBC Distribution Width CV 14.3 % (11.6-14.6); RBC Distribution Width SD 47.3 fl (35.1-43.9); Red Blood Count 4.36 M/mm3 (4.6-6.2); White Blood Count 18.9 K/mm3 (4.4-11.0)
[2020-12-23 05:13] LABS: International Normalized Ratio 3.3; Prothrombin Time (Protime)PT. 32.7 SECONDS (11.7-14.9)
[2020-12-23 05:27] LABS: AST(SGOT) 19 U/L (15-37); Alanine Aminotransfer ALT/SGPT 23 U/L (16-61); Albumin, Serum 2.8 g/dL (3.2-5.0); Alkaline Phosphatase 54 U/L (45-117); Anion Gap 6 (5-15); BUN 21 mg/dL (7-18); BUN/Creat Ratio 16.5 RATIO (10-20); Bilirubin, Direct 0.52 mg/dL (0.00-0.30); Calcium,Total 8.5 mg/dL (8.5-10.1); Chloride 106 mmol/L (98-107); Creatinine, Serum 1.27 mg/dL (0.70-1.30); EST Glomerular Filtration Rate 58 mL/min (>60); Est Glom Filt Rate - Afr Amer 71 mL/min (>60); Estimated Creatinine Clearance 42.37 ml/min; Globulin 3.5 g/dL (2.2-4.2); Glucose 119 mg/dL (74-106); Magnesium 1.7 mg/dL (1.6-2.6); Phosphorus 3.2 mg/dL (2.5-4.9); Protein, Total 6.3 g/dL (6.4-8.2); Sodium Level 137 mmol/L (136-145); Thyroid Stim Hormone (TSH) 0.47 uIU/mL (0.358-3.74)
[2020-12-23 06:45] LABS: Bedside Glucose 117 mg/dL (70-110)
[2020-12-23] MEDS: Lisinopril 40 MG Tablet PO (09:01)
[2020-12-23] MEDS: Doxazosin 1 MG Tablet 2 MG PO (09:01)
[2020-12-23] MEDS: Finasteride 5 MG Tablet PO (09:01)
[2020-12-23] MEDS: 0.9% Saline Lock 10 ML Syringe IV ×2 (09:05→10:56)
--- NOTE | 2020-12-23 10:39 | PN_ITS ---
Patient Problems: Active and Suspected Problems (Last Reviewed 12/22/20 @ 13:[address] Lee Guilloyr MD) Exertional dyspnea (Acute) Elevated troponin (Acute) Leucocytosis (Acute) Reason for Visit: Dyspnea Subjective: Patient is a 75-year-old gentleman presented with exertional dyspnea found to have leukocytosis, elevated troponin as well as low-grade fever admitted to monitored bed. Patient currently being managed as a case of acute infectious bronchitis and suspected superimposed congestive heart failure. WBC count still remains elevated. T-max since admission 100.3. Objective: GENERAL: cooperative HEENT: Atraumatic; EYES; Anicteric, Normal Conjunctiva NECK; supple, normal thyroid, RESPIRATORY: Diminished to auscultation CARDIOVASCULAR: Irregularly irregular tachycardic GI: soft, normoactive bowel sounds, : No Renal angle tenderness; EXTREMITIES: No edema, no clubbing, MUSCULOSKELETAL: no muscle waisting NEURO: Awake; no lateralizing signs. SKIN: No Rash PSYCH; Flat affect Vitals/I&O's: Vital Signs Temp Pulse Resp BP Pulse Ox 99 F 66 18 135/65 H 94 12/23/20 08:56 12/23/20 08:56 12/23/20 08:56 12/23/20 08:56 12/23/20 08:56 Oxygen Flow Rate (L/min) 3 Oxygen Delivery Method Nasal Cannula Weight: 87.5 kg Body Mass Index (BMI) 32.1 Finger Stick Blood Glucose 136 Intake and Output for Last 24 Hours 12/21/20 12/22/20 12/23/20 23:59 23:59 23:59 Intake Total 765 / 765 240 / 240 Output Total 600 / 600 Balance 765 / 765 -360 / -360 Microbiology Past 72 Hours 12/22/20 18:30 Sputum, Expectorated/Coughed Gram Stain - Final 12/22/20 15:00 Mucosa - Nasopharyngeal Respiratory Panel (PCR) - Final 12/22/20 18:30 Urine, Clean Catch Legionella Antigen - Final 12/22/20 18:30 Urine, Clean Catch Streptococcus pneumoniae Antigen (M - Final 12/22/20 12:04 Nasal Secretion SARS-CoV-2 Antigen (Rapid) - Final Laboratory Results 12/22/20 12:04: WBC 17.5 H, RBC 5.24, Hgb 14.9, Hct 47.0, MCV 89.7, MCH 28.4, MCHC 31.7 L, RDW Std Deviation 47.3 H, RDW Coeff of Kiersten 14.3, Plt Count 189, MPV 12.2 H, Immature Gran % (Auto) 0.300, Neut % (Auto) 89.0 H, Lymph % (Auto) 3.7 L , [place] % (Auto) 6.4, Eos % (Auto) 0.2, Baso % (Auto) 0.4, Absolute Neuts (auto) 15.6 H, Absolute Lymphs (auto) 0.64 L, Nucleated RBC % 0 12/22/20 12:04: Sodium 136, Potassium 4.2, Chloride 107, Carbon Dioxide 27.0, Anion Gap 2 L, BUN 26 H, Creatinine 1.38 H, Estim Creat Clear Calc 38.99, Est GFR (MDRD) Af Amer 64, Est GFR (MDRD) Non-Af 53 L, BUN/Creatinine Ratio 18.8, Glucose 139 H, Calcium 9.1, Troponin I 0.089 H 12/22/20 12:04: Lactic Acid 1.4 12/22/20 12:04: B-Natriuretic Peptide 135.5 H 12/22/20 12:04: PT 25.6 H, INR 2.4 12/22/20 13:00: Urine Color Yellow, Urine Clarity Clear, Urine pH 5.0, Ur Specific [place] 1.015, Urine Protein 30 H, Urine Glucose (UA) Normal, Urine Ketones Negative, Urine Occult Blood Negative, Urine Nitrite Negative, Urine Bilirubin Negative, Urine Urobilinogen Normal, Ur Leukocyte Esterase Negative, Urine RBC 0 SEEN, Urine WBC 0 SEEN, Ur Squamous Epith Cells 0 SEEN, Urine Bacteria 0 SEEN, Urine Mucus 0 SEEN 12/22/20 15:00: COVID-19 (AICHA) Negative 12/22/20 17:21: POC Glucose 133 H 12/22/20 17:32: Troponin I 0.156 H 12/22/20 17:59: Troponin I 0.148 H 12/22/20 22:04: POC Glucose 125 H 12/23/20 04:40: WBC 18.9 H, RBC 4.36 L, Hgb 12.6 L, Hct 38.9 L, MCV 89.2, MCH 28.9, MCHC 32.4, RDW Std Deviation 47.3 H, RDW Coeff of Kiersten 14.3, Plt Count 163, MPV 12.1 H, Immature Gran % (Auto) 0.400, Neut % (Auto) 88.2 H, Lymph % (Auto) 5.2 L, [place] % (Auto) 5.9, Eos % (Auto) 0.1, Baso % (Auto) 0.2, Absolute Neuts (auto) 16.7 H, Absolute Lymphs (auto) 0.99, Nucleated RBC % 0 12/23/20 04:40: PT 32.7 H, INR 3.3 12/23/20 04:40: Sodium 137, Potassium 4.0, Chloride 106, Carbon Dioxide 25.0, Anion Gap 6, BUN 21 H, Creatinine 1.27, Estim Creat Clear Calc 42.37, Est GFR (MDRD) Af Amer 71, Est GFR (MDRD) Non-Af 58 L, BUN/Creatinine Ratio 16.5, Glucose 119 H, Calcium 8.5, Phosphorus 3.2, Magnesium 1.7, Total Bilirubin 1.80 H, Direct Bilirubin 0.52 H, AST 19, ALT 23, Alkaline Phosphatase 54, Total Prote in 6.3 L, Albumin 2.8 L, Globulin 3.5, TSH 0.47 12/23/20 06:39: POC Glucose 117 H Current Medications Acetaminophen (Acetaminophen 325 Mg Tablet) 650 mg PO Q6H PRN PRN PRN Reason: Pain Score 1-10/Temp > 100.7 F Al Hydroxide/Mg Hydroxide (Mag Hydrox/Al Hydrox/Simeth 30 Ml Udc) 30 ml PO Q6H PRN PRN PRN Reason: Gastric Burning Albuterol Sulfate (Albuterol 2.5 Mg/3 Ml Vial.Neb.) 2.5 mg INHALATION Q2H PRN PRN PRN Reason: SOB/Wheezing Last Admin: 12/22/20 19:46 Dose: 2.5 mg Documented by: Doxazosin Mesylate (Doxazosin 1 Mg Tablet) 2 mg PO DAILY [facility] Last Admin: 12/23/20 09:01 Dose: 2 mg Documented by: Finasteride (Finasteride 5 Mg Tablet) 5 mg PO DAILY [facility] Last Admin: 12/23/20 09:01 Dose: 5 mg Documented by: Furosemide (Furosemide 40 Mg/4 Ml Vial) 40 mg IV X1 ONE Stop: 12/23/20 10:35 Furosemide (Furosemide 40 Mg Tablet) 40 mg PO BID@1000,1800 [facility] Guaifenesin (Guaifenesin 10 Ml Udc (200mg/10ml)) 20 ml PO Q4H PRN PRN PRN Reason: COUGH Ceftriaxone Sodium 2 gm/ (Sodium Chloride) 50 mls @ 100 mls/hr IV Q24 [facility] Stop: 12/30/20 10:01 Last Admin: 12/23/20 09:05 Dose: 100 mls/hr Documented by: Azithromycin 500 mg/ Dextrose 255 mls @ 250 mls/hr IV Q24 [facility] Stop: 12/28/20 10:01 Sodium Chloride () 250 mls @ 15 mls/hr IV .[id number] PRN PRN Reason: Saline Flush Sodium Chloride () 250 mls @ 15 mls/hr IV .[id number] PRN PRN Reason: Additional IVPB Infusion Insulin Glargine (Insulin Glargine 100 Units/Ml Pen) 10 units SC QHS [facility] Last Admin: 12/22/20 22:10 Dose: Not Given Documented by: Insulin Human Lispro (Insulin Lispro 100 Unit/Ml Insuln.Pen) 0 unit SC [facility]; Protocol Last Admin: 12/23/20 06:42 Dose: Not Given Documented by: Lisinopril (Lisinopril 40 Mg Tablet) 40 mg PO DAILY [facility] Last Admin: 12/23/20 09:01 Dose: 40 mg Documented by: Melatonin (Melatonin 3 Mg Tablet) 3 mg PO QHS PRN PRN PRN Reason: INSOMNIA Nitroglycerin (Nitroglycerin (Inpatient Use) 0.4 Mg Tab.Subl) 0.4 mg SL Q5M PRN PRN Reason: CARDIAC/CHEST PAIN Oxycodone HCl (Oxycodone 5 Mg Tablet) 5 mg PO Q4H PRN PRN PRN Reason: Pain Score 4-5 Oxycodone HCl (Oxycodone 5 Mg Tablet) 10 mg PO Q4H PRN PRN PRN Reason: Pain Score 6-10 Prochlorperazine Edisylate (Prochlorperazine 10 Mg/2 Ml Vial) 5 mg IV Q4H PRN PRN PRN Reason: Breakthrough Nausea/Vomiting Senna/Docusate Sodium (Senna/Docusate Sodium 1 Tablet) 2 tablet PO BID PRN PRN PRN Reason: Constipation Sodium Chloride (0.9% Saline Lock 10 Ml Syringe) 10 - 40 ml IV UD PRN PRN Reason: SALINE FLUSH Last Admin: 12/23/20 09:05 Dose: 10 ml Documented by: Warfarin Sodium (Warfarin 2.5 Mg Tablet) 2.5 mg PO [id number] [facility] Last Admin: 12/22/20 17:34 Dose: 2.5 mg Documented by: Warfarin Sodium (Warfarin 5 Mg Tablet) 5 mg PO [id number] [facility] STROKE Vital Signs/Narrative: Vital Signs Temp Pulse Resp BP Pulse Ox 12/23/20 08:56 99 F 66 18 135/65 H 94 12/23/20 07:27 94 12/23/20 07:02 79 12/23/20 06:41 95 Medical Necessity - Tobacco Use Smoking Status: Former smoker Assessment/Plan All Active Problems (Last Reviewed 12/22/20 @ 13:[address] Lee Guillory MD) Exertional dyspnea (Acute) Elevated troponin (Acute) Leucocytosis (Acute) History of ventricular septal myectomy (Resolved 2000) Patient is a 75-year-old gentleman presented with exertional dyspnea found to have leukocytosis, elevated troponin as well as low-grade fever 1. Suspected acute infectious bronchitis ?Patient has been admitted to a monitored bed. Patient was started on Rocephin and Zithromax from the ED did continue. As part of his management ordered blood and sputum cultures, CT of the chest to rule out pneumonia patient was also placed on supplemental oxygen titrated to keep saturation greater than 90. His initial COVID-19 assay came back negative h 2. Elevated troponin ?Patient reports exertional dyspnea. Admitted to monitored bed ordered 2D echo for regional wall motion abnormalities. Also ordered serial cardiac enzymes. If patient troponin continues to trend up will obtain cardiology consultation 3. Acute congestive heart failure (suspected CHF with preserved ejection fraction) -chest x-ray obtained on admission demonstrated prominent interstitial markings suggestive of pulmonary edema patient started on Lasix 2D echo ordered 4. Hypertension - Blood pressure controlled, home medications continued with dose adjustment as needed 5. Diabetes mellitus type II -patient's oral hypoglycemics held. Placed on long acting insulin, Accu-Cheks a.c. and at bedtime and covered with sliding scale insulin 6. Chronic A. fib ?Rate is controlled. Patient is on systemic anticoagulation with Coumadin with a therapeutic INR 7. BPH ?Patient is on finasteride 8. DVT prophylaxis -patient is on Coumadin with a therapeutic INR Clinical Impression(s) from Imaging Studies Chest X-Ray 12/22/20 12:35 IMPRESSION: 1. Prominent interstitial markings which may reflect pulmonary edema. 2. No focal infiltrate is seen. Electronically Signed: Mj Rice MD at 13:05 EDT Tel , Service support , Chest CT 12/22/20 13:38 IMPRESSION: 1. Patchy bilateral infiltrates concerning for multifocal pneumonia. 2. Small bilateral pleural effusions. 3. Mediastinal nodes likely reactive. Electronically Signed: Mj Rice MD at 15:14 EDT Tel , Service support , Inpatient E&M: 21475 Subs Hosp L2
[2020-12-23] MEDS: Furosemide 40 MG/4 ML Vial IV (10:56)
[2020-12-23 12:15] LABS: Bedside Glucose 139 mg/dL (70-110)
[2020-12-23] MEDS: Furosemide 40 MG Tablet PO (17:27)
[2020-12-23 17:41] LABS: Bedside Glucose 99 mg/dL (70-110)
[2020-12-23 21:45] LABS: Bedside Glucose 84 mg/dL (70-110)
[2020-12-24] VITALS (12 sets, daily range): BP systolic 100–144; BP diastolic 52–74; PULSE 62–87; RESP 16–18; TEMP 36.6–36.9; O2SAT 93–96
[2020-12-24 05:20] LABS: Absolute Lymphocyte Count 1.22 X10^3/uL (0.83-4.51); Absolute Neutrophil Count 9.4 X10^3/uL (2.0-7.7); Basophil# 0.03 X10^3/uL; Basophil% 0.3 % (0-1); Eosinophil# 0.15 X10^3/uL; Eosinophils% 1.3 % (0-5); Hematocrit 38.2 % (40-54); Hemoglobin 12.2 g/dL (13.0-16.5); Lymphocyte # 1.22 X10^3/ul (0.83-4.51); Lymphocyte % 10.2 % (19-41); Mean Corp Hgb Conc 31.9 g/dL (32-36); Mean Corpuscular Hgb 28.7 pg (27.0-32.0); Mean Corpuscular Volume 89.9 fL (80-94); Mean Platelet Vol. 11.9 fl (6.2-12.0); Monocyte# 1.12 X10^3/uL; Monocyte% 9.4 % (0-10); NRBC Flagged by Analyzer 0 % (0-5); Neutrophil # 9.36 X10^3/uL (2.7-7.7); Neutrophil % 78.3 % (47-70); Platelet Count 151 K/mm3 (150-450); RBC Distribution Width CV 14.4 % (11.6-14.6); RBC Distribution Width SD 47.6 fl (35.1-43.9); Red Blood Count 4.25 M/mm3 (4.6-6.2); White Blood Count 11.9 K/mm3 (4.4-11.0)
[2020-12-24 05:29] LABS: International Normalized Ratio 2.5; Prothrombin Time (Protime)PT. 26.2 SECONDS (11.7-14.9)
[2020-12-24 05:35] LABS: Anion Gap 7 (5-15); BUN 34 mg/dL (7-18); BUN/Creat Ratio 20.9 RATIO (10-20); Calcium,Total 8.5 mg/dL (8.5-10.1); Chloride 103 mmol/L (98-107); Creatinine, Serum 1.63 mg/dL (0.70-1.30); EST Glomerular Filtration Rate 44 mL/min (>60); Est Glom Filt Rate - Afr Amer 53 mL/min (>60); Estimated Creatinine Clearance 33.01 ml/min; Glucose 104 mg/dL (74-106); Potassium 3.6 mmol/L (3.5-5.1); Sodium Level 136 mmol/L (136-145)
[2020-12-24 06:50] LABS: Bedside Glucose 107 mg/dL (70-110)
[2020-12-24] MEDS: Doxazosin 1 MG Tablet 2 MG PO (09:13)
[2020-12-24] MEDS: Furosemide 40 MG Tablet PO (09:13)
[2020-12-24] MEDS: 0.9% Saline Lock 10 ML Syringe IV (09:14)
[2020-12-24] MEDS: Lisinopril 40 MG Tablet PO (09:14)
[2020-12-24] MEDS: Finasteride 5 MG Tablet PO (09:14)
--- NOTE | 2020-12-24 10:35 | CASEMGMT ---
ALEENA PONCE Assessment: Face to Face with pt for initial transition planning/care coordination assessment. RN ROSARIO introduced self and role at [facility], pt voices understanding and consents to assessment. Pt is A/O x4 and answers all questions appropriately at this time. Pt sitting up in chair with 2L O2 on in no distress. Care providers, pharmacy, and demographics verified/updated. Admitting Dx: Fever, SOB PCP:Shawn Preferred Pharmacy: [facility] in [place]. Pt states he will use [facility] while he is here. Insurance: Pau FLORES Prescription Benefit: Yes LW/HPOA: Pt has a LW and DPOA on file. Currently his first agent is his ex Jackie Osman. Pt states he needs to get this changed. States he will do this on his own. LNOK: , Radha Osman; son, Everardo Osman Living Arrangements: Pt lives with in a single story condo with one step to enter without a rail. Pt denies concerns at home. Transportation: Pt states he drives self. Denies concerns with transportation. DME/HHC/SNF: Pt states he has a walker at home but does not use. Denies any previous HHC or SNF stays. Pt states no concerns with going home at time of dc. Pt states no further concerns/needs. CM to follow. Advised pt to ask CM if any further question/concerns/needs arise, voices understanding. Pt Goal: Home Plan: Home with family support.
[2020-12-24] MEDS: Insulin Lispro 100 UNIT/ML INSULN.PEN SC (11:14)
[2020-12-24 11:51] LABS: Bedside Glucose 221 mg/dL (70-110)
--- NOTE | 2020-12-24 14:43 | PN_ITS ---
Patient Problems: Active and Suspected Problems (Last Reviewed 12/22/20 @ 13:[address] Lee Guillory MD) Exertional dyspnea (Acute) Elevated troponin (Acute) Leucocytosis (Acute) Subjective: breathing well. anxious to go home. Vitals/I&O's: Vital Signs Temp Pulse Resp BP Pulse Ox 36.7 C 70 18 138/74 H 95 12/24/20 08:56 12/24/20 12:20 12/24/20 08:56 12/24/20 08:56 12/24/20 08:56 Oxygen Flow Rate (L/min) 2 Oxygen Delivery Method Nasal Cannula Weight: 87.5 kg Body Mass Index (BMI) 32.1 Finger Stick Blood Glucose 136 Intake and Output for Last 24 Hours 12/22/20 12/23/20 12/24/20 23:59 23:59 23:59 Intake Total 765 / 765 1615 / 1835 1190 / 1190 Output Total 800 / 800 Balance 765 / 765 815 / 1035 1190 / 1190 General: Alert, No apparent distress HEENT: Atraumatic, Normocephalic Oral: Moist Mucosa, No Gingival or Mucosal Lesions/ Ulcerations Neck: No Nodes, Thyroid Normal Size and Texture Lungs: Clear to auscultation, Normal air movement, No rhonchi, No wheeze Cardiovascular: Regular rate, Regular Rhythm, Normal S1, Normal S2 Abdomen: Bowel Sounds Present, Soft, Non Tender, Non-Distended, No Hepato- splenomegaly Extremities: No edema, No Calf Tenderness Microbiology Past 72 Hours 12/22/20 13:00 Urine, Clean Catch Urine Culture - Final Enterococcus faecalis 12/22/20 12:00 Blood Culture (Wb) #2 - Right Hand Blood Culture - Preliminary No growth in 48 hours. 12/22/20 12:04 Blood Culture (Wb) - Anticubital Left Blood Culture - Preliminary No growth in 48 hours. 12/22/20 18:30 Sputum, Expectorated/Coughed Gram Stain - Final 12/22/20 18:30 Sputum, Expectorated/Coughed Respiratory Culture - Preliminary Appears to be normal respiratory breanna. Further studies to follow. 12/22/20 15:00 Mucosa - Nasopharyngeal Respiratory Panel (PCR) - Final 12/22/20 18:30 Urine, Clean Catch Legionella Antigen - Final 12/22/20 18:30 Urine, Clean Catch Streptococcus pneumoniae Antigen (M - Final 12/22/20 12:04 Nasal Secretion SARS-CoV-2 Antigen (Rapid) - Final Laboratory Results 12/23/20 17:18: POC Glucose 99 12/23/20 21:40: POC Glucose 84 12/24/20 05:02: WBC 11.9 H, RBC 4.25 L, Hgb 12.2 L, Hct 38.2 L, MCV 89.9, MCH 28.7, MCHC 31.9 L, RDW Std Deviation 47.6 H, RDW Coeff of Kiersten 14.4, Plt Count 151, MPV 11.9, Immature Gran % (Auto) 0.500, Neut % (Auto) 78.3 H, Lymph % (Auto) 10.2 L, [place] % (Auto) 9.4, Eos % (Auto) 1.3, Baso % (Auto) 0.3, Absolute Neuts (auto) 9.4 H, Absolute Lymphs (auto) 1.22, Nucleated RBC % 0 12/24/20 05:02: PT 26.2 H, INR 2.5 12/24/20 05:02: Sodium 136, Potassium 3.6, Chloride 103, Carbon Dioxide 26.0, Anion Gap 7, BUN 34 H, Creatinine 1.63 H, Estim Creat Clear Calc 33.01, Est GFR (MDRD) Af Amer 53 L, Est GFR (MDRD) Non-Af 44 L, BUN/Creatinine Ratio 20.9 H, Glucose 104, Calcium 8.5 12/24/20 06:25: POC Glucose 107 12/24/20 11:10: POC Glucose 221 H Current Medications Acetaminophen (Acetaminophen 325 Mg Tablet) 650 mg PO Q6H PRN PRN PRN Reason: Pain Score 1-10/Temp > 100.7 F Al Hydroxide/Mg Hydroxide (Mag Hydrox/Al Hydrox/Simeth 30 Ml Udc) 30 ml PO Q6H PRN PRN PRN Reason: Gastric Burning Albuterol Sulfate (Albuterol 2.5 Mg/3 Ml Vial.Neb.) 2.5 mg INHALATION Q2H PRN PRN PRN Reason: SOB/Wheezing Last Admin: 12/22/20 19:46 Dose: 2.5 mg Documented by: Doxazosin Mesylate (Doxazosin 1 Mg Tablet) 2 mg PO DAILY [facility] Last Admin: 12/24/20 09:13 Dose: 2 mg Documented by: Finasteride (Finasteride 5 Mg Tablet) 5 mg PO DAILY [facility] Last Admin: 12/24/20 09:14 Dose: 5 mg Documented by: Furosemide (Furosemide 40 Mg Tablet) 40 mg PO BID@1000,1800 [facility] Last Admin: 12/24/20 09:13 Dose: 40 mg Documented by: Guaifenesin (Guaifenesin 10 Ml Udc (200mg/10ml)) 20 ml PO Q4H PRN PRN PRN Reason: COUGH Ceftriaxone Sodium 2 gm/ (Sodium Chloride) 50 mls @ 100 mls/hr IV Q24 [facility] Stop: 12/30/20 10:01 Last Infusion: 12/24/20 09:45 Dose: Infused Documented by: Azithromycin 500 mg/ Dextrose 255 mls @ 250 mls/hr IV Q24 [facility] Stop: 12/28/20 10:01 Last Infusion: 12/24/20 11:20 Dose: Infused Documented by: Sodium Chloride () 250 mls @ 15 mls/hr IV .[id number] PRN PRN Reason: Saline Flush Sodium Chloride () 250 mls @ 15 mls/hr IV .[id number] PRN PRN Reason: Additional IVPB Infusion Insulin Glargine (Insulin Glargine 100 Units/Ml Pen) 10 units SC QHS [facility] Last Admin: 12/23/20 21:43 Dose: Not Given Documented by: Insulin Human Lispro (Insulin Lispro 100 Unit/Ml Insuln.Pen) 0 unit SC ACHS [facility]; Protocol Last Admin: 12/24/20 11:14 Dose: 4 units Documented by: Lisinopril (Lisinopril 40 Mg Tablet) 40 mg PO DAILY [facility] Last Admin: 12/24/20 09:14 Dose: 40 mg Documented by: Melatonin (Melatonin 3 Mg Tablet) 3 mg PO QHS PRN PRN PRN Reason: INSOMNIA Nitroglycerin (Nitroglycerin (Inpatient Use) 0.4 Mg Tab.Subl) 0.4 mg SL Q5M PRN PRN Reason: CARDIAC/CHEST PAIN Oxycodone HCl (Oxycodone 5 Mg Tablet) 5 mg PO Q4H PRN PRN PRN Reason: Pain Score 4-5 Oxycodone HCl (Oxycodone 5 Mg Tablet) 10 mg PO Q4H PRN PRN PRN Reason: Pain Score 6-10 Prochlorperazine Edisylate (Prochlorperazine 10 Mg/2 Ml Vial) 5 mg IV Q4H PRN PRN PRN Reason: Breakthrough Nausea/Vomiting Senna/Docusate Sodium (Senna/Docusate Sodium 1 Tablet) 2 tablet PO BID PRN PRN PRN Reason: Constipation Sodium Chloride (0.9% Saline Lock 10 Ml Syringe) 10 - 40 ml IV UD PRN PRN Reason: SALINE FLUSH Last Admin: 12/24/20 09:14 Dose: 10 ml Documented by: Warfarin Sodium (Warfarin 2.5 Mg Tablet) 2.5 mg PO SuTuThSa@1700 [facility] Last Admin: 12/23/20 17:21 Dose: 2.5 mg Documented by: Warfarin Sodium (Warfarin 5 Mg Tablet) 5 mg PO MoWeFr@1700 [facility] Vital Signs/Narrative: Vital Signs Pulse 12/24/20 12:20 70 Medical Necessity - Tobacco Use Smoking Status: Former smoker Assessment/Plan All Active Problems (Last Reviewed 12/22/20 @ 13:[address] Lee Guillory MD) Exertional dyspnea (Acute) Elevated troponin (Acute) Leucocytosis (Acute) History of ventricular septal myectomy (Resolved 2000) 1. acute pneumonia, suspected pneumococcal infectious work up negative on CTX and azithromycin 2. abnormal troponins may be demand from pneumonia check echocardiogram. 3. afib on warfarin. Inpatient E&M: 50836 Subs Hosp L2
[2020-12-24 16:55] LABS: Bedside Glucose 110 mg/dL (70-110)
[2020-12-24 21:11] LABS: Bedside Glucose 134 mg/dL (70-110)
[2020-12-25 06:41] LABS: Bedside Glucose 97 mg/dL (70-110)
[2020-12-25 07:00] VITALS: O2SAT 97
[2020-12-25 07:31] VITALS: PULSE 58
[2020-12-25 07:32] LABS: International Normalized Ratio 2.3; Prothrombin Time (Protime)PT. 24.9 SECONDS (11.7-14.9)
[2020-12-25 07:48] LABS: Anion Gap 9 (5-15); BUN 43 mg/dL (7-18); BUN/Creat Ratio 27.4 RATIO (10-20); Calcium,Total 8.7 mg/dL (8.5-10.1); Chloride 104 mmol/L (98-107); Creatinine, Serum 1.57 mg/dL (0.70-1.30); EST Glomerular Filtration Rate 46 mL/min (>60); Est Glom Filt Rate - Afr Amer 55 mL/min (>60); Estimated Creatinine Clearance 34.28 ml/min; Glucose 108 mg/dL (74-106); Potassium 3.7 mmol/L (3.5-5.1); Sodium Level 138 mmol/L (136-145)
[2020-12-25 08:14] LABS: Absolute Lymphocyte Count 1.35 X10^3/uL (0.83-4.51); Absolute Neutrophil Count 8.1 X10^3/uL (2.0-7.7); Basophil# 0.05 X10^3/uL; Basophil% 0.5 % (0-1); Eosinophil# 0.18 X10^3/uL; Eosinophils% 1.7 % (0-5); Hematocrit 37.8 % (40-54); Hemoglobin 12.3 g/dL (13.0-16.5); Lymphocyte # 1.35 X10^3/ul (0.83-4.51); Lymphocyte % 12.6 % (19-41); Mean Corp Hgb Conc 32.5 g/dL (32-36); Mean Corpuscular Hgb 28.7 pg (27.0-32.0); Mean Corpuscular Volume 88.3 fL (80-94); Mean Platelet Vol. 12.1 fl (6.2-12.0); Monocyte% 9.3 % (0-10); NRBC Flagged by Analyzer 0 % (0-5); Neutrophil % 75.5 % (47-70); Platelet Count 169 K/mm3 (150-450); RBC Distribution Width CV 14.2 % (11.6-14.6); RBC Distribution Width SD 45.7 fl (35.1-43.9); Red Blood Count 4.28 M/mm3 (4.6-6.2); White Blood Count 10.7 K/mm3 (4.4-11.0)
[2020-12-25] MEDS: Doxazosin 1 MG Tablet 2 MG PO (08:46)
[2020-12-25] MEDS: Lisinopril 40 MG Tablet PO (08:47)
[2020-12-25] MEDS: Finasteride 5 MG Tablet PO (08:47)
[2020-12-25] MEDS: Furosemide 40 MG Tablet PO (08:47)
[2020-12-25 09:00] VITALS: BP 127/72; PULSE 75; RESP 18; TEMP 36.4; O2SAT 94
[2020-12-25] MEDS: 0.9% Saline Lock 10 ML Syringe IV (09:07)
--- NOTE | 2020-12-25 12:14 | PN.HOSP_ITS ---
Subjective Subjective: Breathing well. Denies any complaints. Tolerating room air. Objective Data Objective Data Vital Signs: Vital Signs Temp Pulse Resp BP Pulse Ox 36.4 C L 75 18 127/72 H 94 12/25/20 09:00 12/25/20 09:00 12/25/20 09:00 12/25/20 09:00 12/25/20 09:00 Oxygen Flow Rate (L/min) 2 Oxygen Delivery Method Room Air Weight: 87.5 kg Body Mass Index (BMI) 32.1 Finger Stick Blood Glucose 136 Intake & Output: Intake and Output for Last 24 Hours 12/23/20 12/24/20 12/25/20 23:59 23:59 23:59 Intake Total 1615 / 1835 1670 / 1670 305 / 305 Output Total 800 / 800 200 / 200 Balance 815 / 1035 1470 / 1470 305 / 305 Lab / Micro Data Result Diagrams: 12/25/20 05:44 12/25/20 05:44 Labs: Laboratory Results - last 24 hr 12/24/20 12/24/20 12/25/20 16:47 21:01 05:44 WBC 10.7 RBC 4.28 L Hgb 12.3 L Hct 37.8 L MCV 88.3 MCH 28.7 MCHC 32.5 RDW Std Deviation 45.7 H RDW Coeff of Kiersten 14.2 Plt Count 169 MPV 12.1 H Immature Gran % (Auto) 0.400 Neut % (Auto) 75.5 H Lymph % (Auto) 12.6 L [place] % (Auto) 9.3 Eos % (Auto) 1.7 Baso % (Auto) 0.5 Absolute Neuts (auto) 8.1 H Absolute Lymphs (auto) 1.35 Nucleated RBC % 0 PT INR Sodium Potassium Chloride Carbon Dioxide Anion Gap BUN Creatinine Estim Creat Clear Calc Est GFR (MDRD) Af Amer Est GFR (MDRD) Non-Af BUN/Creatinine Ratio Glucose Calcium POC Glucose 110 134 H 12/25/20 12/25/20 12/25/20 05:44 05:44 06:36 WBC RBC Hgb Hct MCV MCH MCHC RDW Std Deviation RDW Coeff of Kiersten Plt Count MPV Immature Gran % (Auto) Neut % (Auto) Lymph % (Auto) [place] % (Auto) Eos % (Auto) Baso % (Auto) Absolute Neuts (auto) Absolute Lymphs (auto) Nucleated RBC % PT 24.9 H INR 2.3 Sodium 138 Potassium 3.7 Chloride 104 Carbon Dioxide 25.0 Anion Gap 9 BUN 43 H Creatinine 1.57 H Estim Creat Clear Calc 34.28 Est GFR (MDRD) Af Amer 55 L Est GFR (MDRD) Non-Af 46 L BUN/Creatinine Ratio 27.4 H Glucose 108 H Calcium 8.7 POC Glucose 97 Micro: Microbiology 12/22/20 18:30 Sputum, Expectorated/Coughed Gram Stain - Final 12/22/20 18:30 Sputum, Expectorated/Coughed Respiratory Culture - Final 12/22/20 13:00 Urine, Clean Catch Urine Culture - Final Enterococcus faecalis 12/22/20 12:00 Blood Culture (Wb) #2 - Right Hand Blood Culture - Preliminary No growth in 48 hours. 12/22/20 12:04 Blood Culture (Wb) - Anticubital Left Blood Culture - Prelimi nary No growth in 48 hours. 12/22/20 15:00 Mucosa - Nasopharyngeal Respiratory Panel (PCR) - Final 12/22/20 18:30 Urine, Clean Catch Legionella Antigen - Final 12/22/20 18:30 Urine, Clean Catch Streptococcus pneumoniae Antigen (M - Final 12/22/20 12:04 Nasal Secretion SARS-CoV-2 Antigen (Rapid) - Final Radiography Diagnostic Testing: Radiology Impression Echocardiogram 12/22/20 16:48 Interpretation Summary The study was technically difficult. Contrast injection was performed. Mild segmental systolic dysfunction (see wall motion). The estimated ejection fraction is 45 %. The left atrium is moderately enlarged. The right atrium is mildly enlarged. There is mild to moderate mitral annular calcification. Extension of the mitral annular calcification onto the mitral valve leaflets. Mild-Moderate (1-2+) mitral valve insufficiency. Mild to moderate (1-2+) tricuspid valve insufficiency. Mild diffuse aortic valve calcification. Trivial pulmonic valve insufficiency. Calcified aortic root. Right ventricular systolic pressure estimated to be 53 mmHg. Unable to assess diastolic dysfunction. Ordering Physician: Lee Guillory Referring Physician: ESTELLA BAL Performed By: Kristy aPrisi, AURE, RVT Physical Exam Const alert and healthy appearing Resp normal respiratory effort and clear to auscultation bilaterally Cardio regular rate and regular rhythm GI normal to inspection, nondistended, normoactive bowel sounds and non-distended Assessment & Plan Assessment/Plan (1) Pneumonia: Status: Acute Code(s): J18.9 - Pneumonia, unspecified organism (2) Elevated troponin: Status: Acute Code(s): R77.8 - Other specified abnormalities of plasma proteins Plan: 1. acute pneumonia, suspected pneumococcal infectious work up negative on CTX and azithromycin 2. abnormal troponins may be demand from pneumonia echo showed EF 45%, was 65% back in May, but 45% in 2017 consult cardiology. 3. afib on warfarin. Inpatient E&M: 56888 Subs Hosp L2
--- NOTE | 2020-12-25 12:24 | PCM.CONS.C ---
Assessment & Plan Assessment/Plan (1) Hypertrophic cardiomyopathy: Status: Chronic Code(s): I42.2 - Other hypertrophic cardiomyopathy (2) History of ventricular septal myectomy: Status: Resolved Code(s): Z98.890 - Other specified postprocedural states (3) Non-ischemic cardiomyopathy: Status: Chronic Code(s): I42.8 - Other cardiomyopathies (4) Longstanding persistent atrial fibrillation: Status: Chronic Code(s): I48.11 - Longstanding persistent atrial fibrillation (5) Secondary pulmonary arterial hypertension: Status: Chronic Code(s): I27.21 - Secondary pulmonary arterial hypertension (6) Non-rheumatic tricuspid valve insufficiency: Status: Chronic Code(s): I36.1 - Nonrheumatic tricuspid (valve) insufficiency Plan: 75-year-old patient, presented with progressive shortness of breath and bilateral lower extremity edema. Cardiac consultation requested because of abnormal echocardiogram. With reduced ejection fraction from prior echocardiogram. This patient is well-known to his primary personal shopper patient has history of hypertrophic cardiomyopathy with prior septal myomectomy has left bundle branch block. Other medical problem include history of essential hypertension, hyperlipidemia and history of renal infarct Had a history of chronic atrial fibrillation and was being on anticoagulation. He evidently seen recently in the office by his primary personal shopper and was planning for evaluating the echocardiogram however due to progressive symptoms of shortness of breath he was presented to the ER where he was admitted to hospital with a clinical diagnosis of pneumonia and acute on chronic systolic heart failure with ejection fraction in the range of 45%. He also had mild to moderate MR, mild to moderate TR and moderate pulmonary hypertension. Patient seen today at bedside along with the nursing staff and cardiac care plan and medication discussed in detail 1. We will continue on diuretic Lasix and monitor the renal function electrolytes 2. Patient currently on warfarin with the target INR in the range of 2?3 3 mild elevation of high sensitive troponin is secondary to renal insufficiency, type II AR/demand myocardial ischemia. patient has no active symptoms of chest pain and will treat conservatively. 4. added low-dose beta-ceferino/carvedilol 3.125 mg twice daily due to the reduced LV systolic function with ejection fraction of 45%. HPI Consult Data Date of Consult: 12/25/20 HPI Narrative HPI Narrative: ANTWAN GE, is a 75 M who presents with shortness of breath and lower extremity edema PFSH Medical History BPH (benign prostatic hyperplasia) Essential (primary) hypertension History of tobacco use HLD (hyperlipidemia) Hypertrophic cardiomyopathy Left bundle branch block Left ventricular diastolic dysfunction Longstanding persistent atrial fibrillation Non-ischemic cardiomyopathy Non-rheumatic tricuspid valve insufficiency Obesity (BMI 30.0-34.9) KIMBERLY (obstructive sleep apnea) Renal infarct Secondary pulmonary arterial hypertension Umbilical hernia Home Medications cyanocobalamin (vitamin B-12) 1,000 mcg IM Q30D 06/08/16 [History Last Taken 01/29/19] acetaminophen 500 mg PO Q4H PRN PRN #20 tab 02/09/19 [Rx Last Taken Unknown] warfarin 5 mg PO MOWEFR 02/09/19 [History Last Taken 12/21/20] warfarin 2.5 mg PO SUTUTHSA 07/11/19 [History Last Taken 12/20/20] doxazosin 2 mg tablet 2 mg PO DAILY #90 tab 06/10/20 [Rx Last Taken 12/22/20] finasteride 5 mg tablet 5 mg PO DAILY tablet 12/19/20 [History Last Taken 12/22/20] glimepiride 1 mg tablet 0.5 mg PO DAILY tablet 12/19/20 [History Last Taken 12/22/20] hydrochlorothiazide 25 mg tablet 25 mg PO DAILY tablet 12/19/20 [History Last Taken 12/22/20] lisinopril 20 mg tablet 40 mg PO DAILY #90 tablet 12/19/20 [Rx Last Taken 12/21/20] Allergy/AdvReac Type Severity Reaction Status Date / Time rivaroxaban [From Xarelto] Allergy Bleeding Verified 12/22/20 11:29 metoprolol AdvReac bradycardia Verified 12/22/20 11:29 Family History Father Heart disease Sister Heart disease Brother Heart disease Surgical History History of appendectomy History of transurethral resection of prostate (01/2019) History of ventricular septal myectomy (2000) Hx of umbilical hernia repair Social History Smoking Status: Former smoker how long ago did patient quit smokin years ago 0.25ppd second hand exposure: Yes alcohol intake: never caffeine: Yes Type: coffee Number of servings: 1 ROS Cardiovascular Cardiovascular: Reports arrhythmia on telemetry, dyspnea on exertion and edema Respiratory/Chest Respiratory/Chest: Reports systems reviewed and no addt'l complaints, except as documented Gastrointestinal Gastrointestinal: Reports systems reviewed and no addt'l complaints, except as documented Genitourinary Genitourinary: Reports systems reviewed and no addt'l complaints, except as documented Musculoskeletal Musculoskeletal: Reports systems reviewed and no addt'l complaints, except as documented Neurologic Neurologic: Reports systems reviewed and no addt'l complaints, except as documented Psychiatric Psychiatric: Reports systems reviewed and no addt'l complaints, except as documented Endocrine Endocrinology: Reports systems reviewed and no addt'l complaints, except as documented Hematologic/Lymphatic Hematologic/Lymphatic: Reports systems reviewed and no addt'l complaints, except as documented Allergic/Immunologic Allergic/Immunologic: Reports systems reviewed and no addt'l complaints, except as documented Physical Exam Const alert, oriented x3 and healthy appearing Orientation / Consciousness: awake HEENT hearing grossly normal bilaterally Neck supple and no JVD Chest inspection of chest normal Chest Narrative: Chest examination revealed bilateral inspiratory rales more prominent on the left base. Resp Auscultation: rales Cardio Cardio Narrative: Underlying cardiac rhythm is abnormal with atrial fibrillation, controlled ventricular rate. Lab / Micro Data Result Diagrams: 12/25/20 05:44 12/25/20 05:44 Labs: Laboratory Results - last 24 hr 12/24/20 12/24/20 12/25/20 16:47 21:01 05:44 WBC 10.7 RBC 4.28 L Hgb 12.3 L Hct 37.8 L MCV 88.3 MCH 28.7 MCHC 32.5 RDW Std Deviation 45.7 H RDW Coeff of Kiersten 14.2 Plt Count 169 MPV 12.1 H Immature Gran % (Auto) 0.400 Neut % (Auto) 75.5 H Lymph % (Auto) 12.6 L [place] % (Auto) 9.3 Eos % (Auto) 1.7 Baso % (Auto) 0.5 Absolute Neuts (auto) 8.1 H Absolute Lymphs (auto) 1.35 Nucleated RBC % 0 PT INR Sodium Potassium Chloride Carbon Dioxide Anion Gap BUN Creatinine Estim Creat Clear Calc Est GFR (MDRD) Af Amer Est GFR (MDRD) Non-Af BUN/Creatinine Ratio Glucose Calcium POC Glucose 110 134 H 12/25/20 12/25/20 12/25/20 05:44 05:44 06:36 WBC RBC Hgb Hct MCV MCH MCHC RDW Std Deviation RDW Coeff of Kiersten Plt Count MPV Immature Gran % (Auto) Neut % (Auto) Lymph % (Auto) [place] % (Auto) Eos % (Auto) Baso % (Auto) Absolute Neuts (auto) Absolute Lymphs (auto) Nucleated RBC % PT 24.9 H INR 2.3 Sodium 138 Potassium 3.7 Chloride 104 Carbon Dioxide 25.0 Anion Gap 9 BUN 43 H Creatinine 1.57 H Estim Creat Clear Calc 34.28 Est GFR (MDRD) Af Amer 55 L Est GFR (MDRD) Non-Af 46 L BUN/Creatinine Ratio 27.4 H Glucose 108 H Calcium 8.7 POC Glucose 97 Micro: Microbiology 12/22/20 18:30 Gram Stain - Final Sputum, Expectorated/Coughed Respiratory Culture - Final 12/22/20 13:00 Urine Culture - Final Urine, Clean Catch Enterococcus faecalis EKG Left branch block with underlying atrial fibrillation: Attestation: I personally reviewed and interpreted this EKG as follows: EKG Rhythm Intrepretation: Atrial Fibrillation Interpretation: EKG showed underlying left bundle branch block, atrial fibrillation with controlled ventricular rate. Radiology Impression Echocardiogram 12/22/20 16:48 Interpretation Summary The study was technically difficult. Contrast injection was performed. Mild segmental systolic dysfunction (see wall motion). The estimated ejection fraction is 45 %. The left atrium is moderately enlarged. The right atrium is mildly enlarged. There is mild to moderate mitral annular calcification. Extension of the mitral annular calcification onto the mitral valve leaflets. Mild-Moderate (1-2+) mitral valve insufficiency. Mild to moderate (1-2+) tricuspid valve insufficiency. Mild diffuse aortic valve calcification. Trivial pulmonic valve insufficiency. Calcified aortic root. Right ventricular systolic pressure estimated to be 53 mmHg. Unable to assess diastolic dysfunction. Ordering Physician: Lee Guillory Referring Physician: ESTELLA BAL Performed By: Kristy Parisi RDCS, RVT
[2020-12-25 12:50] LABS: Bedside Glucose 101 mg/dL (70-110)
--- NOTE | 2020-12-25 14:00 | CASEMGMT ---
Pt screened with [facility] Palliative Screening Tool due to Strata 3, pt did not meet criteria.
--- NOTE | 2020-12-25 14:43 | CASEMGMT ---
Patient has a Healthcare Power of Electromedical Equipment Technician and a Healthcare Living Will on file at [facility]. He named Jackie Osman as his Healthcare Power of Electromedical Equipment Technician. Patience Almaraz NET WPF DEVELOPER ZANDRA
--- NOTE | 2020-12-25 14:50 | DS.PCM_ITS ---
Providers Date of Admission: 12/22/20 Primary Care Physician: Dr. Howard Bal DO Consultations 12/25/20 10:14 Consult: Cardiology Routine Consulting Provider: Guy Abbott Reason for Consult: abnormal echo EMERGENT Consult: No MD Notified: Yes Date Notified:: 12/25/20 Time Notified: 10:14 Method of Notification: Verbal Method of Consult:: In-Person Reason For Visit: FEVER, SOB Diagnosis Discharge Diagnosis (1) Hypertrophic cardiomyopathy: Status: Chronic Code(s): I42.2 - Other hypertrophic cardiomyopathy (2) History of ventricular septal myectomy: Status: Resolved Code(s): Z98.890 - Other specified postprocedural states (3) Non-ischemic cardiomyopathy: Status: Chronic Code(s): I42.8 - Other cardiomyopathies (4) Longstanding persistent atrial fibrillation: Status: Chronic Code(s): I48.11 - Longstanding persistent atrial fibrillation (5) Secondary pulmonary arterial hypertension: Status: Chronic Code(s): I27.21 - Secondary pulmonary arterial hypertension (6) Non-rheumatic tricuspid valve insufficiency: Status: Chronic Code(s): I36.1 - Nonrheumatic tricuspid (valve) insufficiency Medications at Discharge Home Medications cyanocobalamin (vitamin B-12) 1,000 mcg IM Q30D 06/08/16 warfarin 5 mg PO MOWEFR 02/09/19 warfarin 2.5 mg PO SUTUTHSA 07/11/19 doxazosin 2 mg tablet 2 mg PO DAILY #90 tab 06/10/20 finasteride 5 mg tablet 5 mg PO DAILY tablet 12/19/20 glimepiride 1 mg tablet 0.5 mg PO DAILY tablet 12/19/20 lisinopril 20 mg tablet 40 mg PO DAILY #90 tablet 12/19/20 amoxicillin-pot clavulanate [Augmentin] 1 tab PO BID #8 tab 12/25/20 carvedilol 3.125 mg PO BID 30 Days #60 tab 12/25/20 furosemide 40 mg PO DAILY 30 Days #30 tab 12/25/20 potassium chloride 10 meq PO DAILY #30 tab 12/25/20 Hospital Course Procedures 2-D Echocardiogram Summary of Care Provided Minutes Spent on Discharge: 45 Hospital Course: Had PNA w bumped troponin. Improved w abx. Seen by cardiology. Medical mgmt for bumped troponins. Contiue w amox/CA for 7 days course of abx. ABG / Lab / Microbiology Data Result Diagrams: 12/25/20 05:44 12/25/20 05:44 Laboratory: Laboratory Results - last 24 hr 12/24/20 12/24/20 12/25/20 16:47 21:01 05:44 WBC 10.7 RBC 4.28 L Hgb 12.3 L Hct 37.8 L MCV 88.3 MCH 28.7 MCHC 32.5 RDW Std Deviation 45.7 H RDW Coeff of Kiersten 14.2 Plt Count 169 MPV 12.1 H Immature Gran % (Auto) 0.400 Neut % (Auto) 75.5 H Lymph % (Auto) 12.6 L [place] % (Auto) 9.3 Eos % (Auto) 1.7 Baso % (Auto) 0.5 Absolute Neuts (auto) 8.1 H Absolute Lymphs (auto) 1.35 Nucleated RBC % 0 PT INR Sodium Potassium Chloride Carbon Dioxide Anion Gap BUN Creatinine Estim Creat Clear Calc Est GFR (MDRD) Af Amer Est GFR (MDRD) Non-Af BUN/Creatinine Ratio Glucose Calcium POC Glucose 110 134 H 12/25/20 12/25/20 12/25/20 05:44 05:44 06:36 WBC RBC Hgb Hct MCV MCH MCHC RDW Std Deviation RDW Coeff of Kiersten Plt Count MPV Immature Gran % (Auto) Neut % (Auto) Lymph % (Auto) [place] % (Auto) Eos % (Auto) Baso % (Auto) Absolute Neuts (auto) Absolute Lymphs (auto) Nucleated RBC % PT 24.9 H INR 2.3 Sodium 138 Potassium 3.7 Chloride 104 Carbon Dioxide 25.0 Anion Gap 9 BUN 43 H Creatinine 1.57 H Estim Creat Clear Calc 34.28 Est GFR (MDRD) Af Amer 55 L Est GFR (MDRD) Non-Af 46 L BUN/Creatinine Ratio 27.4 H Glucose 108 H Calcium 8.7 POC Glucose 97 12/25/20 12:48 WBC RBC Hgb Hct MCV MCH MCHC RDW Std Deviation RDW Coeff of Kiersten Plt Count MPV Immature Gran % (Auto) Neut % (Auto) Lymph % (Auto) [place] % (Auto) Eos % (Auto) Baso % (Auto) Absolute Neuts (auto) Absolute Lymphs (auto) Nucleated RBC % PT INR Sodium Potassium Chloride Carbon Dioxide Anion Gap BUN Creatinine Estim Creat Clear Calc Est GFR (MDRD) Af Amer Est GFR (MDRD) Non-Af BUN/Creatinine Ratio Glucose Calcium POC Glucose 101 Microbiology: Microbiology 12/22/20 18:30 Gram Stain - Final Sputum, Expectorated/Coughed Respiratory Culture - Final 12/22/20 13:00 Urine Culture - Final Urine, Clean Catch Enterococcus faecalis Microbiology 12/22/20 18:30 Sputum, Expectorated/Coughed Gram Stain - Final 12/22/20 18:30 Sputum, Expectorated/Coughed Respiratory Culture - Final 12/22/20 13:00 Urine, Clean Catch Urine Culture - Final Enterococcus faecalis 12/22/20 12:00 Blood Culture (Wb) #2 - Right Hand Blood Culture - Pr eliminary No growth in 48 hours. 12/22/20 12:04 Blood Culture (Wb) - Anticubital Left Blood Culture - Preliminary No growth in 48 hours. 12/22/20 15:00 Mucosa - Nasopharyngeal Respiratory Panel (PCR) - Final 12/22/20 18:30 Urine, Clean Catch Legionella Antigen - Final 12/22/20 18:30 Urine, Clean Catch Streptococcus pneumoniae Antigen (M - Final 12/22/20 12:04 Nasal Secretion SARS-CoV-2 Antigen (Rapid) - Final Radiography Diagnostic Testing: Radiology Impression Echocardiogram 12/22/20 16:48 Interpretation Summary The study was technically difficult. Contrast injection was performed. Mild segmental systolic dysfunction (see wall motion). The estimated ejection fraction is 45 %. The left atrium is moderately enlarged. The right atrium is mildly enlarged. There is mild to moderate mitral annular calcification. Extension of the mitral annular calcification onto the mitral valve leaflets. Mild-Moderate (1-2+) mitral valve insufficiency. Mild to moderate (1-2+) tricuspid valve insufficiency. Mild diffuse aortic valve calcification. Trivial pulmonic valve insufficiency. Calcified aortic root. Right ventricular systolic pressure estimated to be 53 mmHg. Unable to assess diastolic dysfunction. Ordering Physician: Lee Guillory Referring Physician: HOWARD BAL Performed By: Kristy Parisi RDCS, RVT Meaningful Use Info Meaningful Use Diagnoses (Choose all that apply): None applicable Discharge Plan Admission Admit Date/Time: 12/22/20 13:32 Primary Reason for Your Visit: pneumonia Attending Provider: Gurdeep De Luna Primary Care Provider: Howard Bal Instructions Patient Instructions: Pneumonia, Pneumonia Discharge Orders/Prescriptions Prescriptions: New carvedilol 3.125 mg Tablet 3.125 mg PO BID 30 Days Qty: 60 RF: 0 furosemide 40 mg Tablet 40 mg PO DAILY 30 Days Qty: 30 RF: 0 potassium chloride 10 mEq tablet extended release 10 meq PO DAILY Qty: 30 RF: 0 amoxicillin-pot clavulanate [Augmentin] 875-125 mg tablet 1 tab PO BID Qty: 8 RF: 0 Continued finasteride 5 mg tablet 5 mg PO DAILY RF: 0 glimepiride 1 mg tablet 0.5 mg PO DAILY RF: 0 lisinopril 20 mg tablet 40 mg PO DAILY Qty: 90 RF: 3 cyanocobalamin (vitamin B-12) 1,000 MCG/ML solution 1,000 mcg IM Q30D RF: 0 warfarin 5 MG tablet 5 mg PO MOWEFR RF: 0 warfarin 2.5 MG tablet 2.5 mg PO SUTUTHSA RF: 0 doxazosin 2 mg tablet 2 mg PO DAILY Qty: 90 RF: 3 Discontinued hydrochlorothiazide 25 mg tablet 25 mg PO DAILY RF: 0 acetaminophen 500 MG tablet 500 mg PO Q4H PRN PRN (Reason: Pain) Qty: 20 RF: 0 Referrals: Howard Bal DO [Primary Care Provider] - In 1 Week Jairo Turk MD [STAFF PHYSICIAN] - Within 1 Month Disposition Patient Disposition: Home, self care Inpatient E&M: [id number] [facility]
[2020-12-25 14:59] VITALS: PULSE 116
[2020-12-25 15:00] VITALS: BP 130/66; PULSE 70; RESP 16; TEMP 36.8; O2SAT 94
--- NOTE | 2020-12-26 16:04 | CASEMGMT ---
CM Discharge Follow Up Phone Call: LACAri: 11 Strata: 3 Call Date: 12/26/20 Discharge Date: 12/25/20 Time of Call: 1600 Duration: 3 min Admitting Dx: Fever, SOB RN CM completed follow up phone call after recent hospitalization. Pt states he is feeling ok today. States his BP was up this morning and he got dizzy this afternoon and was breathing heavy. He states he laid down and is now feeling better. Pt was able to cone picker his prescriptions. He states that he just started the new meds late this morning. Pt states that his weight went down by a half a pound today. Pt has not made his follow up appt with at this time. He states he will still do this today. Pt is aware if he has sob and it is an emergent situation to notify EMS. Pt verbalizes understanding and thanks CM for the call. Pt has no further questions or concerns.
== END 2020-12-25 16:53 | disposition home or self-care (01) | DRG 193 ==
LOC: ED 13:40 → PCU 13:53
PROVIDERS: Admitting Provider Internal Medicine; Emergency Provider Emergency Medicine; PCP Family Medicine
DX: J18.9 Pneumonia, unspecified organism (principal); I50.23 Acute on chronic systolic (congestive) heart failure; I48.11 Longstanding persistent atrial fibrillation; N28.0 Ischemia and infarction of kidney; I42.0 Dilated cardiomyopathy; I42.2 Other hypertrophic cardiomyopathy; I11.0 Hypertensive heart disease with heart failure; E66.9 Obesity, unspecified; E78.00 Pure hypercholesterolemia, unspecified; E78.5 Hyperlipidemia, unspecified; G47.33 Obstructive sleep apnea (adult) (pediatric); I27.21 Secondary pulmonary arterial hypertension; I36.1 Nonrheumatic tricuspid (valve) insufficiency; E11.9 Type 2 diabetes mellitus without complications; I44.7 Left bundle-branch block, unspecified; N40.0 Benign prostatic hyperplasia without lower urinary tract symptoms; Z87.891 Personal history of nicotine dependence; Z66 Do not resuscitate; Z79.01 Long term (current) use of anticoagulants; Z79.84 Long term (current) use of oral hypoglycemic drugs; Z68.32 Body mass index [BMI] 32.0-32.9, adult
CPT/HCPCS: 36415; 71045; 71250; 80048; 80076; 81001; 82962; 83605; 83735; 83880; 84100; 84443; 84484; 85025; 85610; 87040; 87070; 87077; 87086; 87088; 87186; 87205; 87426; 87449; 87633; 87635; 93005; 93306; 94002; 94003; 94640; 99285; J7030; Q9957; A4216; C8929; J0696; J1940; U0002

== ENCOUNTER 2021-01-17 14:22 | Emergency (ER) | payer MEDICARE, BC, SELFPAY ==
[2020-12-22 17:01] VITALS: BMI 32.1
[2021-01-17 14:23] VITALS: BP 120/62; PULSE 47; RESP 15; TEMP 36.3; O2SAT 98; BMI 32.3
--- NOTE | 2021-01-17 14:37 | CT_ITS ---
STUDY: CT ABDOMEN AND PELVIS WITHOUT CONTRAST REASON FOR EXAM: Male, 75 years old. right flank pain RADIATION DOSAGE (If Supplied By Facility): CTDIvol = ( 15.55 ) mGy, DLP = ( 749.97 ) mGycm TECHNIQUE: Transaxial images were obtained from the dome of the diaphragm to the symphysis pubis without oral contrast, and without intravenous contrast. Sagittal and coronal images were reconstructed. Individualized dose optimization techniques were used for this CT. COMPARISON: 01/16/2019 FINDINGS: The visualized lung bases are unremarkable. The visualized portions of the heart are within normal limits. Normal liver. There are multiple gallstones. Normal spleen. Normal pancreas. Normal bilateral adrenal glands. There is moderate cortical atrophy of the right kidney, consistent with chronic medical renal disease. Normal left kidney. Normal visualized stomach. Small diverticulum of the second portion the duodenum. There are multiple colonic diverticula consistent with diverticulosis. There is non-visualization of the appendix. There is diffuse atherosclerotic calcification of the abdominal aorta, without a demonstrated aneurysm. Normal inferior vena cava. Normal retroperitoneum. Normal urinary bladder. There are prostatic calcifications. Normal abdominal wall. Normal osseous structures. CT/Abdomen/Pelvis without Cont IMPRESSION: 1. No renal or ureteral stone. 2. Cholelithiasis. 3. Sigmoid diverticulosis without diverticulitis. Electronically Signed: Casey Lopez MD at 16:02 EDT Tel , Service support ,
--- NOTE | 2021-01-17 14:39 | EDS_ITS ---
HPI History of Present Illness Chief Complaint: Back Detail of Chief Complaint: Right-sided back pain for 2 days. Informant: patient Onset/Context/Timing Current Severity: 03/09 Worsened by: Movement Narrative Narrative: Patient presents with some discomfort in his right low back that started 2 days ago. Initially pain was mild. Patient denies any trauma to his back. He denies any pain radiating to the front of the abdomen. Patient also relates that over the last 5 days he has been urinating frequently and thought it was related to his water pill so his primary care physician cut it back to half dose. Patient had an episode this afternoon with severe pain that almost caused him a passed out and his had him come to the ER to be evaluated. He currently rates his pain a 5-6 out of 10. No history of kidney stones. He denies hematuria. Patient currently on Coumadin for history of A. fib. Prior similar symptoms: No PFSH [facility] Medical History (Updated 01/17/21 @ 16:[address] Giacomo Penaloza, DO) BPH (benign prostatic hyperplasia) Essential (primary) hypertension History of tobacco use HLD (hyperlipidemia) Hypertrophic cardiomyopathy Left bundle branch block Left ventricular diastolic dysfunction Longstanding persistent atrial fibrillation Non-ischemic cardiomyopathy Non-rheumatic tricuspid valve insufficiency Obesity (BMI 30.0-34.9) KIMBERLY (obstructive sleep apnea) Renal infarct Secondary pulmonary arterial hypertension Umbilical hernia Home Medications cyanocobalamin (vitamin B-12) 1,000 mcg IM Q30D 06/08/16 [History Last Taken 01/29/19] warfarin 5 mg PO MOWEFR 02/09/19 [History Last Taken 12/21/20] warfarin 2.5 mg PO SUTUTHSA 07/11/19 [History Last Taken 12/20/20] doxazosin 2 mg tablet 2 mg PO DAILY #90 tab 06/10/20 [Rx Last Taken 12/22/20] finasteride 5 mg tablet 5 mg PO DAILY tablet 12/19/20 [History Last Taken 12/22/20] glimepiride 1 mg tablet 0.5 mg PO DAILY tablet 12/19/20 [History Last Taken 12/22/20] lisinopril 20 mg tablet 40 mg PO DAILY #90 tablet 12/19/20 [Rx Last Taken 12/21/20] amoxicillin-pot clavulanate [Augmentin] 1 tab PO BID #8 tab 12/25/20 [Rx Last Taken Unknown] carvedilol 3.125 mg PO BID 30 Days #60 tab 12/25/20 [Rx Last Taken Unknown] furosemide 40 mg PO DAILY 30 Days #30 tab 12/25/20 [Rx Last Taken Unknown] potassium chloride 10 meq PO DAILY #30 tab 12/25/20 [Rx Last Taken Unknown] hydrocodone-acetaminophen 1 tab PO Q6H PRN PRN 3 Days #10 tablet 01/17/21 [Rx Last Taken Unknown] Allergy/AdvReac Type Severity Reaction Status Date / Time rivaroxaban [From Xarelto] Allergy Bleeding Verified 12/22/20 11:29 metoprolol AdvReac bradycardia Verified 12/22/20 11:29 Family History Father Heart disease Sister Heart disease Brother Heart disease Surgical History History of appendectomy History of transurethral resection of prostate (01/2019) History of ventricular septal myectomy (2000) Hx of umbilical hernia repair Social History Smoking Status: Former smoker how long ago did patient quit smokin years ago 0.25ppd second hand exposure: Yes alcohol intake: never caffeine: Yes Type: coffee Number of servings: 1 ROS ROS ED Constitutional Constitutional ED: Reports systems reviewed and no addt'l complaints, except as documented; Denies body ache(s), change in weight or chills Eyes Eyes: Denies acute decrease in peripheral vision, change in vision, double vision or loss of vision ENT ENT ED: Reports none; Denies ear pain, lip swelling, loss taste/smell, neck pain, otalgia or sore throat Cardiovascular Cardiovascular: Reports none; Denies abdominal pain, chest pain with activity, leg edema, lightheadedness, palpitations, rapid heart rate or syncope Respiratory/Chest Respiratory/Chest: Reports none; Denies change in mental status, dry cough, dyspnea, hemoptysis, shortness of breath at rest or shortness of breath with exertion Gastrointestinal Gastrointestinal: Reports none; Denies abdominal pain, change in stool character, diarrhea, hematemesis, hematochezia, melena, rectal bleeding or vomiting Genitourinary Genitourinary ED: Reports none and urinary frequency; Denies abdominal discomfort, anuria, dysuria, genital pain or polyuria Musculoskeletal Musculoskeletal: Reports none and back pain; Denies arthralgias, difficulty walking, extremity pain, muscle weakness or myalgias Integumentary Reports none; Denies abscess or rash Neurologic Neurologic: Reports none; Denies abnormal gait, confusion, focal weakness, frequent falls, headache(s), loss of vision, numbness, paresthesias, radicular pain, vertigo or weakness Psychiatric Psychiatric: Reports systems reviewed and no addt'l complaints, except as documented and none; Denies behavioral changes, confusion, difficulty concentrating, hallucinations, suicidal ideation, tactile hallucinations or visual hallucinations Endocrine Endocrinology: Denies none, cold intolerance, excessive sweating, fatigue or heat intolerance Hematologic/Lymphatic Hematologic/Lymphatic: Reports none; Denies anemia, easy bleeding or easy bruis ing Allergic/Immunologic Allergic/Immunologic ED: Denies as per HPI, none, lip swelling, mouth swelling, throat swelling, tongue swelling or hives EXAM Physical Exam Const Vital Signs: 01/17/21 14:23 01/17/21 15:14 Temperature 97.4 F L Temperature Source Temporal Pulse Rate 47 L 61 Respiratory Rate 15 18 Blood Pressure 120/62 159/87 H Blood Pressure Mean 81 111 Pulse Ox 98 97 Oxygen Delivery Method Room Air Room Air Positive well nourished and well developed General Appearance ED: well developed and NAD HEENT Reports TM's clear and moist mucous membranes normocephalic and atraumatic; Negative for trauma or tenderness Tympanic Membrane ED: Yes TM's clear Eyes PERRL and EOMs intact bilaterally General Eye ED: Negative for pale conjunctiva or scleral icterus Neck no lymphadenopathy, supple and no JVD General: Negative for tenderness Chest Wall inspection of chest normal and palpation of chest normal Chest: Negative for tenderness Resp normal respiratory effort and clear to auscultation bilaterally Effort and Inspection: Negative for respiratory distress or pain with movement Auscultation: Negative for rhonchi, wheezes or diminished lung sounds Cardio regular rate, regular rhythm, S1 normal heart sound, S2 normal heart sound and no murmurs Peripheral Pulses: pulses 2+ throughout GI normal to inspection, nondistended, normoactive bowel sounds, soft to palpation, non-tender, non-distended and no masses Back/Spine no thoracic nor lumbar tenderness Back/Spine Narrative: Negative straight leg raises. Deep tendon reflexes are plus out of 4 bilaterally at the patella and Achilles. Patient has normal 5 extension. Patient has normal sensation to light touch. General Back: CVA tenderness right Lumbar Spine / Lower Back: Negative for lumbar spinal tenderness Extremity normal to inspection General Extremety ED: Negative for edema General Extremity: Negative for edema Neuro oriented x3, CN's II-XII intact bilaterally, no sensory deficits noted and gait normal Sensorium / Orientation: awake, alert, oriented to person, oriented to place and oriented to time Motor Exam: strength 5/5 throughout and strength abnormal Psych mental status grossly normal Skin no rashes or lesions noted and no wounds MDM MDM MDM Narrative Medical decision making narrative: Patient was bradycardic in the emergency department on monitor with A. fib with a heart rate in the 40s and at times in the 50s. Patient had had history of bradycardia in the past related to his metoprolol therefore was taken off in a couple of weeks ago was started on carvedilol. I did discuss with mobile sales technician on-call who recommended that given the patient is asymptomatic that we did not need to adjust his medications at all at this time. Patient has an appointment to see his mobile sales technician in 5 days. Regarding his back pain I suspect this is likely musculoskeletal at this point. He did have good pain relief with the morphine here. There are no evidence of kidney stones. No radicular symptoms. No concerning symptoms of cauda equina. Lab Data Attestation: I reviewed the patient's lab results. Labs: Laboratory Results - last 24 hr 01/17/21 01/17/21 01/17/21 15:00 15:00 15:00 WBC 9.8 RBC 4.94 Hgb 14.4 Hct 44.7 MCV 90.5 MCH 29.1 MCHC 32.2 RDW Std Deviation 49.0 H RDW Coeff of Kiersten 14.7 H Plt Count 235 MPV 12.0 Immature Gran % (Auto) 0.600 Neut % (Auto) 69.1 Lymph % (Auto) 15.5 L [place] % (Auto) 12.5 H Eos % (Auto) 1.7 Baso % (Auto) 0.6 Absolute Neuts (auto) 6.8 Absolute Lymphs (auto) 1.52 Nucleated RBC % 0 PT 27.5 H INR 2.7 Sodium 139 Potassium 4.8 Chloride 108 H Carbon Dioxide 26.0 Anion Gap 5 BUN 47 H Creatinine 1.56 H Estim Creat Clear Calc 34.50 Est GFR (MDRD) Af Amer 56 L Est GFR (MDRD) Non-Af 46 L BUN/Creatinine Ratio 30.1 H Glucose 89 Calcium 9.4 Urine Color Urine Clarity Urine pH Ur Specific [place] Urine Protein Urine Glucose (UA) Urine Ketones Urine Occult Blood Urine Nitrite Urine Bilirubin Urine Urobilinogen Ur Leukocyte Esterase Urine RBC Urine WBC Ur Squamous Epith Cells Urine Bacteria Urine Mucus 01/17/21 15:05 WBC RBC Hgb Hct MCV MCH MCHC RDW Std Deviation RDW Coeff of Kiersten Plt Count MPV Immature Gran % (Auto) Neut % (Auto) Lymph % (Auto) [place] % (Auto) Eos % (Auto) Baso % (Auto) Absolute Neuts (auto) Absolute Lymphs (auto) Nucleated RBC % PT INR Sodium Potassium Chloride Carbon Dioxide Anion Gap BUN Creatinine Estim Creat Clear Calc Est GFR (MDRD) Af Amer Est GFR (MDRD) Non-Af BUN/Creatinine Ratio Glucose Calcium Urine Color Yellow Urine Clarity Clear Urine pH 5.0 Ur Specific [place] 1.015 Urine Protein Negative Urine Glucose (UA) Normal Urine Ketones Negative Urine Occult Blood Negative Urine Nitrite Negative Urine Bilirubin Negative Urine Urobilinogen Normal Ur Leukocyte Esterase Negative Urine RBC 0 SEEN Urine WBC 0 SEEN Ur Squamous Epith Cells 0 SEEN Urine Bacteria 0 SEEN Urine Mucus 0 SEEN Radiography Diagnostic Testing: Radiology Impression Abdomen/Pelvis CT 01/17/21 14:37 IMPRESSION: 1. No renal or ureteral stone. 2. Cholelithiasis. 3. Sigmoid diverticulosis without diverticulitis. Electronically Signed: Casey Lopez MD at 16:02 EDT Tel , Service support , Discharge Plan Triage Chief Complaint: Back ED Provider: Giacomo Penaloza Dx/Rx/DC Orders Clinical Impression: Back pain Instructions: ED Back Pain (Acute or Chronic) Prescriptions: New hydrocodone-acetaminophen [hydrocodone-acetaminophen] 1 TABLET tablet 1 tab PO Q6H PRN PRN (Reason: Pain) 3 Days Qty: 10 RF: 0 No Action finasteride 5 mg tablet 5 mg PO DAILY RF: 0 glimepiride 1 mg tablet 0.5 mg PO DAILY RF: 0 lisinopril 20 mg tablet 40 mg PO DAILY Qty: 90 RF: 3 cyanocobalamin (vitamin B-12) 1,000 MCG/ML solution 1,000 mcg IM Q30D RF: 0 warfarin 5 MG tablet 5 mg PO MOWEFR RF: 0 warfarin 2.5 MG tablet 2.5 mg PO SUTUTHSA RF: 0 carvedilol 3.125 mg Tablet 3.125 mg PO BID 30 Days Qty: 60 RF: 0 furosemide 40 mg Tablet 40 mg PO DAILY 30 Days Qty: 30 RF: 0 potassium chloride 10 mEq tablet extended release 10 meq PO DAILY Qty: 30 RF: 0 amoxicillin-pot clavulanate [Augmentin] 875-125 mg tablet 1 tab PO BID Qty: 8 RF: 0 doxazosin 2 mg tablet 2 mg PO DAILY Qty: 90 RF: 3 Primary Care Provider: Howard Escobar Referrals: Howard Escobar DO [Primary Care Provider] - 3-5 Days Disposition Disposition: Home, self care
[2021-01-17] MEDS: Ketorolac 15 MG/ML Vial IV (15:11)
[2021-01-17] MEDS: Ondansetron 4 MG/2 ML Vial IV (15:12)
[2021-01-17] MEDS: 0.9% Normal Saline 1,000 ML 150 ML IV (15:12)
[2021-01-17] MEDS: Morphine 4 MG/ML Syringe IV (15:12)
[2021-01-17 15:14] VITALS: BP 159/87; PULSE 61; RESP 18; O2SAT 97
[2021-01-17 15:19] LABS: Bacteria 0 SEEN /hpf (None Seen); Mucous, Urine 0 SEEN /hpf (<or=2+); Red Blood Cells-Urine 0 SEEN /hpf (0-5); Squamous Epithelial Cells - UA 0 SEEN /hpf (0-5); White Blood Cells 0 SEEN /hpf (0-5)
[2021-01-17 15:22] LABS: Color, Urine Yellow (Yellow); Glucose, Dipstick Normal (Normal); Ketone-Dipstick Negative (Negative); Leukocyte Esterase-Dipstick Negative /ul (Negative); Nitrite-Dipstick Negative (Negative); Occult Blood-Urine Negative /ul (Negative); Protein-Dipstick Negative (Negative); Specific Gravity, Urine 1.015 (1.002-1.030); Urine Bilirubin Dipstick Negative (Negative); Urine Clarity Clear (Clear); Urine Urobilinogen Normal (Normal)
[2021-01-17 15:25] LABS: Absolute Lymphocyte Count 1.52 X10^3/uL (0.83-4.51); Absolute Neutrophil Count 6.8 X10^3/uL (2.0-7.7); Basophil# 0.06 X10^3/uL; Basophil% 0.6 % (0-1); Eosinophil# 0.17 X10^3/uL; Eosinophils% 1.7 % (0-5); Hematocrit 44.7 % (40-54); Hemoglobin 14.4 g/dL (13.0-16.5); Lymphocyte # 1.52 X10^3/ul (0.83-4.51); Lymphocyte % 15.5 % (19-41); Mean Corp Hgb Conc 32.2 g/dL (32-36); Mean Corpuscular Hgb 29.1 pg (27.0-32.0); Mean Corpuscular Volume 90.5 fL (80-94); Monocyte# 1.22 X10^3/uL; Monocyte% 12.5 % (0-10); NRBC Flagged by Analyzer 0 % (0-5); Neutrophil # 6.76 X10^3/uL (2.7-7.7); Neutrophil % 69.1 % (47-70); Platelet Count 235 K/mm3 (150-450); RBC Distribution Width CV 14.7 % (11.6-14.6); Red Blood Count 4.94 M/mm3 (4.6-6.2); White Blood Count 9.8 K/mm3 (4.4-11.0)
[2021-01-17 15:31] LABS: International Normalized Ratio 2.7; Prothrombin Time (Protime)PT. 27.5 SECONDS (11.7-14.9)
[2021-01-17 15:38] LABS: Anion Gap 5 (5-15); BUN 47 mg/dL (7-18); BUN/Creat Ratio 30.1 RATIO (10-20); Calcium,Total 9.4 mg/dL (8.5-10.1); Chloride 108 mmol/L (98-107); Creatinine, Serum 1.56 mg/dL (0.70-1.30); EST Glomerular Filtration Rate 46 mL/min (>60); Est Glom Filt Rate - Afr Amer 56 mL/min (>60); Glucose 89 mg/dL (74-106); Potassium 4.8 mmol/L (3.5-5.1); Sodium Level 139 mmol/L (136-145)
--- NOTE | 2021-01-17 16:27 | ED.RN ---
pt's heart rate will run anywhere from 38-55's. pt is asymptomatic and has no complaints. dr montes notified at this time. rn will continue to monitor patient.
[2021-01-17 17:02] VITALS: BP 154/76; PULSE 46; RESP 18; O2SAT 98
== END 2021-01-17 17:03 | disposition home or self-care (01) ==
PROVIDERS: Emergency Provider Emergency Medicine; PCP Family Medicine
DX: M54.5 Low back pain (principal); E66.9 Obesity, unspecified; Z68.30 Body mass index [BMI] 30.0-30.9, adult; E78.5 Hyperlipidemia, unspecified; G47.33 Obstructive sleep apnea (adult) (pediatric); I11.9 Hypertensive heart disease without heart failure; I27.21 Secondary pulmonary arterial hypertension; I42.2 Other hypertrophic cardiomyopathy; I44.7 Left bundle-branch block, unspecified; I48.11 Longstanding persistent atrial fibrillation; N40.0 Benign prostatic hyperplasia without lower urinary tract symptoms; Z87.19 Personal history of other diseases of the digestive system; Z79.01 Long term (current) use of anticoagulants; Z79.84 Long term (current) use of oral hypoglycemic drugs; Z79.899 Other long term (current) drug therapy; Z87.891 Personal history of nicotine dependence
CPT/HCPCS: 74176; 80048; 81001; 85025; 85610; 96361; 96374; 96375; 99283; J7030; A4216; J2405

== ENCOUNTER 2021-01-19 11:42 | Emergency (ER) | payer MEDICARE, BC, SELFPAY ==
[2021-01-19 11:43] VITALS: BP 163/112; PULSE 95; RESP 18; TEMP 36.8; O2SAT 95; BMI 32.8
--- NOTE | 2021-01-19 12:08 | RAD_ITS ---
STUDY: X-RAY - ABDOMEN/PELVIS REASON FOR EXAM: Male, 75 years old. constipation TECHNIQUE: Single AP view of the abdomen / pelvis. COMPARISON: None. FINDINGS: Normal visualized lung bases. There is an unremarkable bowel gas pattern. There is no demonstrated free abdominal air. The visualized liver, spleen and kidneys are grossly normal in size and morphology. Normal soft tissue structures. There are diffuse degenerative changes of the visualized lumbar spine. RAD/Abdomen Single View IMPRESSION: No pelvic ring fracture. Electronically Signed: Ashu Cao MD ([place]) at 14:38 EDT , Service support ,
--- NOTE | 2021-01-19 12:17 | EX.ED.GUMALE ---
HPI History of Present Illness Chief Complaint: Complaint Detail of Chief Complaint: Patient presents with difficulty urinating since last evening. Informant: patient Pain Maximum Severity: Moderate Narrative Narrative: Patient presents with difficulty urinating since last evening. Patient also states that he has not had a good bowel movement about 2 days. Patient was seen several days ago in the emergency department for complaint of right-sided back pain and was started on [place] for pain. At that time patient had lab work including a CT scan of the abdomen pelvis which was unremarkable for kidney stone and was thought patient had musculoskeletal back pain. Patient denies any fever. He denies vomiting. Patient feels like he just needs to have a bowel movement and cannot do despite taking a suppository this morning. Prior similar symptoms: No PFSH PFS Medical History (Updated 01/19/21 @ 16:[address] Giacomo Penaloza, ) BPH (benign prostatic hyperplasia) Essential (primary) hypertension History of tobacco use HLD (hyperlipidemia) Hypertrophic cardiomyopathy Left bundle branch block Left ventricular diastolic dysfunction Longstanding persistent atrial fibrillation Non-ischemic cardiomyopathy Non-rheumatic tricuspid valve insufficiency Obesity (BMI 30.0-34.9) KIMBERLY (obstructive sleep apnea) Renal infarct Secondary pulmonary arterial hypertension Umbilical hernia Home Medications cyanocobalamin (vitamin B-12) 1,000 mcg IM Q30D 06/08/16 [History Last Taken 01/29/19] warfarin 5 mg PO MOWEFR 02/09/19 [History Last Taken 12/21/20] warfarin 2.5 mg PO SUTUTHSA 07/11/19 [History Last Taken 12/20/20] doxazosin 2 mg tablet 2 mg PO DAILY #90 tab 06/10/20 [Rx Last Taken 12/22/20] finasteride 5 mg tablet 5 mg PO DAILY tablet 12/19/20 [History Last Taken 12/22/20] glimepiride 1 mg tablet 0.5 mg PO DAILY tablet 12/19/20 [History Last Taken 12/22/20] lisinopril 20 mg tablet 40 mg PO DAILY #90 tablet 12/19/20 [Rx Last Taken 12/21/20] amoxicillin-pot clavulanate [Augmentin] 1 tab PO BID #8 tab 12/25/20 [Rx Last Taken Unknown] carvedilol 3.125 mg PO BID 30 Days #60 tab 12/25/20 [Rx Last Taken Unknown] furosemide 40 mg PO DAILY 30 Days #30 tab 12/25/20 [Rx Last Taken Unknown] potassium chloride 10 meq PO DAILY #30 tab 12/25/20 [Rx Last Taken Unknown] hydrocodone-acetaminophen 1 tab PO Q6H PRN PRN 3 Days #10 tablet 01/17/21 [Rx Last Taken Unknown] Allergy/AdvReac Type Severity Reaction Status Date / Time rivaroxaban [From Xarelto] Allergy Bleeding Verified 01/19/21 11:42 metoprolol AdvReac bradycardia Verified 01/19/21 11:42 Family History Father Heart disease Sister Heart disease Brother Heart disease Surgical History History of appendectomy History of transurethral resection of prostate (01/2019) History of ventricular septal myectomy (2000) Hx of umbilical hernia repair Social History Smoking Status: Former smoker how long ago did patient quit smokin years ago 0.25ppd second hand exposure: Yes alcohol intake: never caffeine: Yes Type: coffee Number of servings: 1 ROS ROS ED Constitutional Constitutional ED: Reports systems reviewed and no addt'l complaints, except as documented; Denies body ache(s), change in weight or chills Eyes Eyes: Denies acute decrease in peripheral vision, change in vision, double vision or loss of vision ENT ENT ED: Reports none; Denies ear pain, lip swelling, loss taste/smell, neck pain, otalgia or sore throat Cardiovascular Cardiovascular: Reports none; Denies abdominal pain, chest pain with activity, leg edema, lightheadedness, palpitations, rapid heart rate or syncope Respiratory/Chest Respiratory/Chest: Reports none; Denies change in mental status, dry cough, dyspnea, hemoptysis, shortness of breath at rest or shortness of breath with exertion Gastrointestinal Gastrointestinal: Reports none, abdominal pain and constipation; Denies change in stool character, diarrhea, hematemesis, hematochezia, melena, nausea, rectal bleeding or vomiting Genitourinary Genitourinary ED: Reports none; Denies abdominal discomfort, anuria, dysuria, genital pain or polyuria Musculoskeletal Musculoskeletal: Reports none; Denies arthralgias, back pain, difficulty walking, extremity pain, muscle weakness or myalgias Integumentary Reports none; Denies abscess or rash Neurologic Neurologic: Reports none; Denies abnormal gait, confusion, focal weakness, frequent falls, headache(s), loss of vision, numbness, paresthesias, radicular pain, vertigo or weakness Psychiatric Psychiatric: Reports systems reviewed and no addt'l complaints, except as documented and none; Denies behavioral changes, confusion, difficulty concentrating, hallucinations, suicidal ideation, tactile hallucinations or visual hallucinations Endocrine Endocrinology: Denies none, cold intolerance, excessive sweating, fatigue or heat intolerance Hematologic/Lymphatic Hematologic/Lymphatic: Reports none; Denies anemia, easy bleeding or easy bruising Allergic/Immunologic Allergic/Immunologic ED: Denies as per HPI, none, lip swelling, mouth swelling, throat swelling, tongue swelling or hives EXAM Physical Exam Const Vital Signs: 01/19/21 11:43 Temperature 98.3 F Temperature Source Temporal Pulse Rate 95 Respiratory Rate 18 Blood Pressure 163/112 H Blood Pressure Mean 129 Pulse Ox 95 Oxygen Delivery Method Room Air Positive well nourished and well developed General Appearance ED: well developed and NAD HEENT Reports TM's clear and moist mucous membranes normocephalic and atraumatic; Negative for trauma or tenderness Tympanic Membrane ED: Yes TM's clear Eyes PERRL and EOMs intact bilaterally General Eye ED: Negative for pale conjunctiva or scleral icterus Neck no lymphadenopathy, supple and no JVD General: Negative for tenderness Chest Wall inspection of chest normal and palpation of chest normal Chest: Negative for tenderness Resp normal respiratory effort and clear to auscultation bilaterally Effort and Inspection: Negative for respiratory distress or pain with movement Auscultation: Negative for rhonchi, wheezes or diminished lung sounds Cardio regular rate, regular rhythm, S1 normal heart sound, S2 normal heart sound and no murmurs Peripheral Pulses: pulses 2+ throughout GI normal to inspection, nondistended, normoactive bowel sounds, soft to palpation and no masses; Negative for non-tender or non-distended Palpation: soft Rectal Exam: tenderness no CVA tenderness Back/Spine no CVA tenderness and no thoracic nor lumbar tenderness Extremity normal to inspection General Extremety ED: Negative for edema General Extremity: Negative for edema Neuro oriented x3, CN's II-XII intact bilaterally, no sensory deficits noted and gait normal Sensorium / Orientation: awake, alert, oriented to person, oriented to place and oriented to time Motor Exam: strength 5/5 throughout and strength abnormal Psych mental status grossly normal Skin no rashes or lesions noted and no wounds MDM MDM MDM Narrative Medical decision making narrative: Patient had a soapsuds enema in the emergency department with good results. Initially we placed a Lanier catheter and obtain large amount of urine. At this point decision was made to remove the catheter as it is believed that he had difficulty with retention related to his constipation. Patient will be advised to return if difficulty urinating or conditions worsen anyway. He is instructed to use stool softener daily while taking narcotic pain medicine. Lab Data Attestation: I reviewed the patient's lab results. Labs: Laboratory Results - last 24 hr 01/19/21 01/19/21 01/19/21 12:35 12:35 12:48 WBC 10.4 RBC 4.76 Hgb 13.7 Hct 42.0 MCV 88.2 MCH 28.8 MCHC 32.6 RDW Std Deviation 47.2 H RDW Coeff of Kiersten 14.6 Plt Count 207 MPV 11.7 Immature Gran % (Auto) 0.700 Neut % (Auto) 75.7 H Lymph % (Auto) 11.0 L [place] % (Auto) 10.7 H Eos % (Auto) 1.4 Baso % (Auto) 0.5 Absolute Neuts (auto) 7.9 H Absolute Lymphs (auto) 1.14 Nucleated RBC % 0 Sodium 137 Potassium 4.6 Chloride 108 H Carbon Dioxide 22.0 Anion Gap 7 BUN 40 H Creatinine 1.56 H Estim Creat Clear Calc 34.50 Est GFR (MDRD) Af Amer 56 L Est GFR (MDRD) Non-Af 46 L BUN/Creatinine Ratio 25.6 H Glucose 128 H Calcium 9.0 Urine Color Yellow Urine Clarity Clear Urine pH 6.0 Ur Specific Watson 1.010 Urine Protein Negative Urine Glucose (UA) Normal Urine Ketones Negative Urine Occult Blood 250 H Urine Nitrite Negative Urine Bilirubin Negative Urine Urobilinogen Normal Ur Leukocyte Esterase Negative Urine RBC 0-5 SEEN Urine WBC 0 SEEN Ur Squamous Epith Cells 0 SEEN Urine Bacteria 0 SEEN Urine Mucus 0 SEEN Radiography Diagnostic Testing: Radiology Impression KUB X-Ray 01/19/21 12:08 IMPRESSION: No pelvic ring fracture. Electronically Signed: Ashu Cao MD ([place]) at 14:38 EDT , Service support , KUB obtained interpreted by myself as no evidence of bowel obstruction or acute disease process. Radiology in agreement. Discharge Plan Triage Chief Complaint: Complaint ED Provider: Giacomo Penaloza Dx/Rx/DC Orders Clinical Impression: Constipation, Acute urinary retention Instructions: ED Constipation (Adult), ED Urinary Retention, Male Prescriptions: No Action finasteride 5 mg tablet 5 mg PO DAILY RF: 0 glimepiride 1 mg tablet 0.5 mg PO DAILY RF: 0 lisinopril 20 mg tablet 40 mg PO DAILY Qty: 90 RF: 3 cyanocobalamin (vitamin B-12) 1,000 MCG/ML solution 1,000 mcg IM Q30D RF: 0 warfarin 5 MG tablet 5 mg PO MOWEFR RF: 0 warfarin 2.5 MG tablet 2.5 mg PO SUTUTHSA RF: 0 carvedilol 3.125 mg Tablet 3.125 mg PO BID 30 Days Qty: 60 RF: 0 furosemide 40 mg Tablet 40 mg PO DAILY 30 Days Qty: 30 RF: 0 potassium chloride 10 mEq tablet extended release 10 meq PO DAILY Qty: 30 RF: 0 amoxicillin-pot clavulanate [Augmentin] 875-125 mg tablet 1 tab PO BID Qty: 8 RF: 0 hydrocodone-acetaminophen [hydrocodone-acetaminophen] 1 TABLET tablet 1 tab PO Q6H PRN PRN (Reason: Pain) 3 Days Qty: 10 RF: 0 doxazosin 2 mg tablet 2 mg PO DAILY Qty: 90 RF: 3 Primary Care Provider: Howard Escobar Referrals: Howard Escobar DO [Primary Care Provider] - 3-5 Days Disposition Disposition: Home, self care
[2021-01-19 12:53] LABS: Bacteria 0 SEEN /hpf (None Seen); Mucous, Urine 0 SEEN /hpf (<or=2+); Squamous Epithelial Cells - UA 0 SEEN /hpf (0-5); White Blood Cells 0 SEEN /hpf (0-5)
[2021-01-19 13:05] LABS: Color, Urine Yellow (Yellow); Glucose, Dipstick Normal (Normal); Ketone-Dipstick Negative (Negative); Leukocyte Esterase-Dipstick Negative /ul (Negative); Nitrite-Dipstick Negative (Negative); Occult Blood-Urine 250 /ul (Negative); Protein-Dipstick Negative (Negative); Urine Bilirubin Dipstick Negative (Negative); Urine Clarity Clear (Clear); Urine Urobilinogen Normal (Normal)
[2021-01-19 13:05] LABS: Absolute Lymphocyte Count 1.14 X10^3/uL (0.83-4.51); Absolute Neutrophil Count 7.9 X10^3/uL (2.0-7.7); Basophil# 0.05 X10^3/uL; Basophil% 0.5 % (0-1); Eosinophil# 0.15 X10^3/uL; Eosinophils% 1.4 % (0-5); Hemoglobin 13.7 g/dL (13.0-16.5); Lymphocyte # 1.14 X10^3/ul (0.83-4.51); Mean Corp Hgb Conc 32.6 g/dL (32-36); Mean Corpuscular Hgb 28.8 pg (27.0-32.0); Mean Corpuscular Volume 88.2 fL (80-94); Mean Platelet Vol. 11.7 fl (6.2-12.0); Monocyte# 1.11 X10^3/uL; Monocyte% 10.7 % (0-10); NRBC Flagged by Analyzer 0 % (0-5); Neutrophil # 7.88 X10^3/uL (2.7-7.7); Neutrophil % 75.7 % (47-70); Platelet Count 207 K/mm3 (150-450); RBC Distribution Width CV 14.6 % (11.6-14.6); RBC Distribution Width SD 47.2 fl (35.1-43.9); Red Blood Count 4.76 M/mm3 (4.6-6.2); White Blood Count 10.4 K/mm3 (4.4-11.0)
[2021-01-19 13:11] LABS: Red Blood Cells-Urine 0-5 SEEN /hpf (0-5)
[2021-01-19 13:18] LABS: Anion Gap 7 (5-15); BUN 40 mg/dL (7-18); BUN/Creat Ratio 25.6 RATIO (10-20); Chloride 108 mmol/L (98-107); Creatinine, Serum 1.56 mg/dL (0.70-1.30); EST Glomerular Filtration Rate 46 mL/min (>60); Est Glom Filt Rate - Afr Amer 56 mL/min (>60); Glucose 128 mg/dL (74-106); Potassium 4.6 mmol/L (3.5-5.1); Sodium Level 137 mmol/L (136-145)
[2021-01-19 16:43] VITALS: BP 127/66; PULSE 84; RESP 16; O2SAT 97
== END 2021-01-19 16:47 | disposition home or self-care (01) ==
PROVIDERS: Emergency Provider Emergency Medicine; PCP Family Medicine
DX: R33.9 Retention of urine, unspecified (principal); K59.00 Constipation, unspecified; E66.9 Obesity, unspecified; Z68.32 Body mass index [BMI] 32.0-32.9, adult; E78.5 Hyperlipidemia, unspecified; G47.33 Obstructive sleep apnea (adult) (pediatric); I11.9 Hypertensive heart disease without heart failure; I27.21 Secondary pulmonary arterial hypertension; I48.11 Longstanding persistent atrial fibrillation; I36.1 Nonrheumatic tricuspid (valve) insufficiency; I42.2 Other hypertrophic cardiomyopathy; N40.0 Benign prostatic hyperplasia without lower urinary tract symptoms; Z79.01 Long term (current) use of anticoagulants; Z79.899 Other long term (current) drug therapy; Z87.891 Personal history of nicotine dependence
CPT/HCPCS: 51702; 74018; 80048; 81001; 85025; 99285; A4216

== ENCOUNTER 2021-02-11 18:47 | Emergency (ER) | payer MEDICARE, BC, SELFPAY ==
[2021-01-22 14:55] VITALS: BMI 31.8
[2021-02-11 18:47] VITALS: BP 128/83; PULSE 102; RESP 18; TEMP 36.4; O2SAT 93; BMI 31.6
--- NOTE | 2021-02-11 18:55 | EKG12_ITS ---
Test Reason : PALPITATIONS Blood Pressure : / mmHG Vent. Rate : 108 BPM Atrial Rate : 091 BPM P-R Int : 000 ms QRS Dur : 146 ms QT Int : 358 ms P-R-T Axes : 000 012 172 degrees QTc Int : 479 ms Atrial fibrillation with rapid ventricular response Left bundle branch block Abnormal ECG Confirmed by ZANE STONER, FUENTES ([id number]), index editor VIOLETA VILLALBA ([id number]) on 02/14/2021 9:56:26 AM Referred By: HARMONY Confirmed By:FUENTES DEGROOT MD
--- NOTE | 2021-02-11 19:12 | EDS_ITS ---
HPI History of Present Illness Chief Complaint: Palpitations Narrative Narrative: 75-year-old male presenting with a sensation of palpitations. He states this is been going on since early this afternoon. Patient states he did not take his morning medications and went to breakfast. When he came home around noon he remembered take his medicines however then he noted his blood pressure was 200 systolic. He also noted his heart rate was in the 130s. Patient was not having any chest pain. He called his primary care doctor who told him to take another pill however he does not recall what pill this was. Patient is anticoagulated on Coumadin and has a history of A. fib. He is rate controlled with carvedilol. [facility] Medical History BPH (benign prostatic hyperplasia) Essential (primary) hypertension History of tobacco use HLD (hyperlipidemia) Hypertrophic cardiomyopathy Left bundle branch block Left ventricular diastolic dysfunction Longstanding persistent atrial fibrillation Non-ischemic cardiomyopathy Non-rheumatic tricuspid valve insufficiency Obesity (BMI 30.0-34.9) KIMBERLY (obstructive sleep apnea) Renal infarct Secondary pulmonary arterial hypertension Umbilical hernia Home Medications cyanocobalamin (vitamin B-12) 1,000 mcg IM Q30D 06/08/16 [History Last Taken 01/29/19] warfarin 5 mg PO MOWEFR 02/09/19 [History Last Taken 12/21/20] warfarin 2.5 mg PO SUTUTHSA 07/11/19 [History Last Taken 12/20/20] doxazosin 2 mg tablet 2 mg PO DAILY #90 tab 06/10/20 [Rx Last Taken 12/22/20] finasteride 5 mg tablet 5 mg PO DAILY tablet 12/19/20 [History Last Taken 12/22/20] glimepiride 1 mg tablet 0.5 mg PO DAILY tablet 12/19/20 [History Last Taken 12/22/20] carvedilol 3.125 mg tablet 3.125 mg PO BID #60 tab 01/22/21 [Rx Last Taken Unknown] furosemide 40 mg tablet 40 mg PO DAILY #30 tab 01/22/21 [Rx Last Taken Unknown] lisinopril 20 mg tablet 20 mg PO DAILY tab 01/22/21 [History Last Taken Unknown] potassium chloride 10 mEq tablet,extended release 10 meq PO DAILY #30 tab 01/22/21 [Rx Last Taken Unknown] Allergy/AdvReac Type Severity Reaction Status Date / Time rivaroxaban [From Xarelto] Allergy Bleeding Verified 02/11/21 18:49 metoprolol AdvReac bradycardia Verified 02/11/21 18:49 Family History Father Heart disease Sister Heart disease Brother Heart disease Surgical History History of appendectomy History of transurethral resection of prostate (01/2019) History of ventricular septal myectomy (2000) Hx of umbilical hernia repair Social History Smoking Status: Former smoker how long ago did patient quit smokin years ago 0.25ppd second hand exposure: Yes alcohol intake: never caffeine: Yes Type: coffee Number of servings: 1 ROS ROS ED Constitutional Constitutional ED: Denies chills, fever(s) or sweats Eyes Eyes: Denies blurry vision or change in vision ENT ENT ED: Denies ear pain or sore throat Cardiovascular Cardiovascular: Reports palpitations and racing heartbeat; Denies chest pain Respiratory/Chest Respiratory/Chest: Denies cough, dyspnea or sputum Gastrointestinal Gastrointestinal: Denies abdominal pain, constipation, diarrhea, nausea or vomiting Genitourinary Genitourinary ED: Denies dysuria, hematuria or urinary frequency Musculoskeletal Musculoskeletal: Denies arthralgias, myalgias or neck pain Integumentary Denies abscess, Abrasions or rash Neurologic Neurologic: Denies headache(s), paresthesias or weakness Psychiatric Psychiatric: Denies anxiety, depression, suicidal ideation or suicidal thoughts Endocrine Endocrinology: Denies polydipsia or polyuria EXAM Physical Exam Const Vital Signs: 02/11/21 18:47 02/11/21 19:40 02/11/21 19:41 Temperature 97.6 F L Temperature Source Temporal Pulse Rate 102 H Respiratory Rate 18 Respiratory Effort Normal Non-Labored Blood Pressure 128/83 H Blood Pressure Mean 98 Pulse Ox 93 100 Oxygen Delivery Method Room Air Nasal Cannula Oxygen Flow Rate (L/min) 2 02/11/21 19:47 02/11/21 20:00 02/11/21 22:00 Temperature Temperature Source Pulse Rate 99 79 100 Respiratory Rate 15 15 14 Respiratory Effort Blood Pressure 142/70 H 136/70 H Blood Pressure Mean 94 92 Pulse Ox 98 99 99 Oxygen Delivery Method Room Air Room Air Room Air Oxygen Flow Rate (L/min) Positive well nourished, oriented x3 and no apparent distress General Appearance ED: Negative for pallor HEENT Reports normocephalic, head/scalp atraumatic and moist mucous membranes Eyes PERRL and EOMs intact bilaterally Neck no lymphadenopathy and supple Chest Wall inspection of chest normal and palpation of chest normal Resp normal respiratory effort and clear to auscultation bilaterally Auscultation: Negative for rales, rhonchi or wheezes Cardio Cardio Narrative: Irregular rhythm with normal rate Narrative: Deferred Extremity normal to inspection General Extremety ED: Negative for edema or tenderness General Extremity: Negative for edema Neuro oriented x3 and CN's II-XII intact bilaterally Sensorium / Orientation: alert Motor Exam: strength 5/5 throughout Psych mental status grossly normal Attitude: No agitated Skin no rashes or lesions noted and no wounds General Skin Exam: Negative for jaundice or pallor MDM MDM MDM Narrative Medical decision making narrative: Patient presenting with A. fib with RVR. He states that he took his home medication that is physician prescribed for him and his heart rate and blood pressure have improved. Patient had EKG on arrival which showed atrial fibrillation at 108 bpm. Patient has history of atrial fibrillation is anticoagulated on Coumadin. His INR is therapeutic at 2.6. Renal function is near baseline. Troponin is slightly elevated 0.090 however patient has history of this in the medical record. He is not having any chest pain. Patient has a history of leukocytosis in the medical record and today his white blood cell count is 21.4. His chest x-ray as interpreted by myself shows no acute cardiopulmonary process. I did compare this with his previous chest x- ray and there are no changes. Patient's vital signs at this time have stabilized. He feels well. I believe that he is safe to be discharged home. He is given return precautions. Patient stable for discharge. Impression: 1. A. fib with RVR resolved 2. Leukocytosis 3. Elevated troponin Lab Data Labs: Laboratory Results - last 24 hr 02/11/21 02/11/21 02/11/21 19:35 19:35 19:35 WBC 21.4 H RBC 5.04 Hgb 14.3 Hct 44.2 MCV 87.7 MCH 28.4 MCHC 32.4 RDW Std Deviation 46.8 H RDW Coeff of K[place]rt[place] 14.6 Plt Count 199 MPV 11.4 Immature Gran % (Auto) 0.700 Neut % (Auto) 91.8 H Lymph % (Auto) 2.1 L [place] % (Auto) 5.1 Eos % (Auto) 0.0 Baso % (Auto) 0.3 Absolute Neuts (auto) 19.6 H Absolute Lymphs (auto) 0.46 L Nucleated RBC % 0 Differential Comment Platelet Estimate ADEQUATE RBC Morphology NORM C+C PT 27.3 H INR 2.6 Sodium 139 Potassium 4.4 Chloride 107 Carbon Dioxide 23.0 Anion Gap 9 BUN 36 H Creatinine 1.63 H Estim Creat Clear Calc 33.01 Est GFR (MDRD) Af Amer 53 L Est GFR (MDRD) Non-Af 44 L BUN/Creatinine Ratio 22.1 H Glucose 149 H Calcium 9.4 Troponin I 0.090 H Discharge Plan Triage Chief Complaint: Palpitations ED Provider: Isrrael Colon Dx/Rx/DC Orders Instructions: ED AFIB Prescriptions: No Action finasteride 5 mg tablet 5 mg PO DAILY RF: 0 glimepiride 1 mg tablet 0.5 mg PO DAILY RF: 0 lisinopril 20 mg tablet 20 mg PO DAILY RF: 0 carvedilol 3.125 mg tablet 3.125 mg PO BID Qty: 60 RF: 11 furosemide 40 mg tablet 40 mg PO DAILY Qty: 30 RF: 11 potassium chloride 10 mEq tablet extended release 10 meq PO DAILY Qty: 30 RF: 11 cyanocobalamin (vitamin B-12) 1,000 MCG/ML solution 1,000 mcg IM Q30D RF: 0 warfarin 5 MG tablet 5 mg PO MOWEFR RF: 0 warfarin 2.5 MG tablet 2.5 mg PO SUTUTHSA RF: 0 doxazosin 2 mg tablet 2 mg PO DAILY Qty: 90 RF: 3 Primary Care Provider: Howard Escobar Referrals: Howard Escobar DO [Primary Care Provider] - Disposition Disposition: Home, self care
--- NOTE | 2021-02-11 19:25 | RAD_ITS ---
INDICATION: chest pain EXAMINATION/TECHNIQUE: X-RAY - XR Chest 1 View COMPARISON: None. FINDINGS: Median sternotomy wires present. Chronic lung changes. The heart is enlarged. No pleural effusion or pneumothorax. No acute osseous abnormalities. RAD/Chest 1 View (Portable) IMPRESSION: No acute radiographic abnormalities. Cardiomegaly. Electronically Signed: Vincent Ponce MD at 23:05 EDT Tel , Service support ,
[2021-02-11 19:40] VITALS: O2SAT 100
[2021-02-11 19:47] VITALS: PULSE 99; RESP 15; O2SAT 98
[2021-02-11 19:50] LABS: Absolute Lymphocyte Count 0.46 X10^3/uL (0.83-4.51); Absolute Neutrophil Count 19.6 X10^3/uL (2.0-7.7); Basophil# 0.06 X10^3/uL; Basophil% 0.3 % (0-1); Eosinophil# 0.01 X10^3/uL; Hematocrit 44.2 % (40-54); Hemoglobin 14.3 g/dL (13.0-16.5); Lymphocyte # 0.46 X10^3/ul (0.83-4.51); Lymphocyte % 2.1 % (19-41); Mean Corp Hgb Conc 32.4 g/dL (32-36); Mean Corpuscular Hgb 28.4 pg (27.0-32.0); Mean Corpuscular Volume 87.7 fL (80-94); Mean Platelet Vol. 11.4 fl (6.2-12.0); Monocyte% 5.1 % (0-10); NRBC Flagged by Analyzer 0 % (0-5); Neutrophil # 19.63 X10^3/uL (2.7-7.7); Neutrophil % 91.8 % (47-70); POSITIVE DIFFERENTIAL YES; Platelet Count 199 K/mm3 (150-450); RBC Distribution Width CV 14.6 % (11.6-14.6); RBC Distribution Width SD 46.8 fl (35.1-43.9); Red Blood Count 5.04 M/mm3 (4.6-6.2); White Blood Count 21.4 K/mm3 (4.4-11.0)
[2021-02-11 19:55] LABS: International Normalized Ratio 2.6; Prothrombin Time (Protime)PT. 27.3 SECONDS (11.7-14.9)
[2021-02-11 19:59] LABS: Differential Indicated SCAN CRITERIA MET
[2021-02-11 20:00] VITALS: BP 142/70; PULSE 79; RESP 15; O2SAT 99
[2021-02-11 20:04] LABS: Anion Gap 9 (5-15); BUN 36 mg/dL (7-18); BUN/Creat Ratio 22.1 RATIO (10-20); Calcium,Total 9.4 mg/dL (8.5-10.1); Chloride 107 mmol/L (98-107); Creatinine, Serum 1.63 mg/dL (0.70-1.30); EST Glomerular Filtration Rate 44 mL/min (>60); Est Glom Filt Rate - Afr Amer 53 mL/min (>60); Estimated Creatinine Clearance 33.01 ml/min; Glucose 149 mg/dL (74-106); Potassium 4.4 mmol/L (3.5-5.1); Sodium Level 139 mmol/L (136-145)
[2021-02-11 20:28] LABS: Platelet Estimate ADEQUATE (ADEQ); Red Cell Morphology NORM C+C NORMAL (NORM C&C)
[2021-02-11 22:00] VITALS: BP 136/70; PULSE 100; RESP 14; O2SAT 99
== END 2021-02-11 23:17 | disposition home or self-care (01) ==
PROVIDERS: Emergency Provider Student in an Organized Health Care Education/Training Program; PCP Family Medicine
DX: I48.91 Unspecified atrial fibrillation (principal); D72.829 Elevated white blood cell count, unspecified; R79.89 Other specified abnormal findings of blood chemistry; E66.9 Obesity, unspecified; I42.2 Other hypertrophic cardiomyopathy; N40.0 Benign prostatic hyperplasia without lower urinary tract symptoms; I11.9 Hypertensive heart disease without heart failure; Z68.30 Body mass index [BMI] 30.0-30.9, adult; Z87.891 Personal history of nicotine dependence; Z79.899 Other long term (current) drug therapy; Z79.01 Long term (current) use of anticoagulants
CPT/HCPCS: 71045; 80048; 84484; 85025; 85610; 93005; 99285; A4216

== ENCOUNTER 2021-02-16 08:56 | Inpatient (IN) | payer MEDICARE, BC, SELFPAY ==
[2021-02-13 14:32] VITALS: BMI 31.8
[2021-02-16] VITALS (15 sets, daily range): BP systolic 138–201; BP diastolic 65–95; PULSE 32–90; RESP 16–26; TEMP 36.3–36.8; O2SAT 92–97; BMI 31.6; BMI 31.3
--- NOTE | 2021-02-16 09:25 | EKG12_ITS ---
Test Reason : CP Blood Pressure : / mmHG Vent. Rate : 075 BPM Atrial Rate : 084 BPM P-R Int : 000 ms QRS Dur : 148 ms QT Int : 408 ms P-R-T Axes : 000 020 183 degrees QTc Int : 455 ms Atrial fibrillation Left bundle branch block Abnormal ECG Confirmed by DIO STONER, WILLIAN ([id number]), film or videotape editor VIOLETA VILLALBA ([id number]) on 02/18/2021 11:10:55 A M Referred By: TAMAR Confirmed By:KARIN WHARTON MD
--- NOTE | 2021-02-16 09:25 | RAD_ITS ---
History: chest pain EXAMINATION/TECHNIQUE: XR Chest 1 View: Portable COMPARISON: February 11, 2021 FINDINGS: LINES/DEVICES: None. Interval development of vascular congestion and Dorota B-lines consistent with congestive failure with interstitial edema. LUNGS: No consolidation, edema or effusion. No pneumothorax. MEDIASTINUM AND CARDIOVASCULAR STRUCTURES: Stable mild cardiomegaly Central airways and mediastinal contour are unremarkable. BONES AND SOFT TISSUES: Sternotomy wires are in place. RAD/Chest 1 View (Portable) IMPRESSION: CHF with interstitial edema. at 1059 Reported and signed by: Omar Hamilton MD Electronically Signed: Omar Hamilton MD at 10:58 EDT Tel , Service support ,
[2021-02-16 11:18] LABS: Absolute Lymphocyte Count 0.45 X10^3/uL (0.83-4.51); Absolute Neutrophil Count 16.8 X10^3/uL (2.0-7.7); Basophil# 0.07 X10^3/uL; Basophil% 0.4 % (0-1); Eosinophil# 0.04 X10^3/uL; Eosinophils% 0.2 % (0-5); Hematocrit 44.4 % (40-54); Hemoglobin 14.3 g/dL (13.0-16.5); Lymphocyte # 0.45 X10^3/ul (0.83-4.51); Lymphocyte % 2.4 % (19-41); Mean Corp Hgb Conc 32.2 g/dL (32-36); Mean Corpuscular Hgb 28.8 pg (27.0-32.0); Mean Corpuscular Volume 89.5 fL (80-94); Mean Platelet Vol. 11.8 fl (6.2-12.0); Monocyte# 1.12 X10^3/uL; NRBC Flagged by Analyzer 0 % (0-5); Neutrophil # 16.84 X10^3/uL (2.7-7.7); Neutrophil % 90.3 % (47-70); POSITIVE DIFFERENTIAL YES; Platelet Count 192 K/mm3 (150-450); RBC Distribution Width CV 14.5 % (11.6-14.6); Red Blood Count 4.96 M/mm3 (4.6-6.2); White Blood Count 18.7 K/mm3 (4.4-11.0)
[2021-02-16 11:21] LABS: Differential Indicated SCAN CRITERIA MET
[2021-02-16 11:36] LABS: ALB/GLOB Ratio 0.8 RATIO (0.9-2.4); AST(SGOT) 41 U/L (15-37); Alanine Aminotransfer ALT/SGPT 60 U/L (16-61); Albumin, Serum 3.6 g/dL (3.2-5.0); Alkaline Phosphatase 82 U/L (45-117); Anion Gap 7 (5-15); BUN 33 mg/dL (7-18); BUN/Creat Ratio 20.4 RATIO (10-20); Calcium,Total 9.2 mg/dL (8.5-10.1); Chloride 106 mmol/L (98-107); Creatinine, Serum 1.62 mg/dL (0.70-1.30); Differential Comment SCANNED; EST Glomerular Filtration Rate 44 mL/min (>60); Est Glom Filt Rate - Afr Amer 53 mL/min (>60); Estimated Creatinine Clearance 33.22 ml/min; Globulin 4.3 g/dL (2.2-4.2); Glucose 146 mg/dL (74-106); Potassium 4.5 mmol/L (3.5-5.1); Protein, Total 7.9 g/dL (6.4-8.2); Sodium Level 139 mmol/L (136-145)
[2021-02-16 11:45] LABS: Lactic Acid 1.2 mmol/L (0.4-1.9)
[2021-02-16] MEDS: Furosemide 40 MG/4 ML Vial IV ×2 (11:58→14:57)
--- NOTE | 2021-02-16 12:20 | ED.VIS.DYS ---
HPI History of Present Illness Chief Complaint: Shortness of Breath Narrative Narrative: Patient presents complaining of shortness of breath for about 2 weeks progressively getting worse, history of congestive heart failure hypertrophic cardiomyopathy pulmonary hypertension left bundle branch block hypertension he basically states he saw his tray server on for the shortness of breath no specific diagnosis was added or deleted he was told to have a cardiac echo he says he cannot walk now trouble laying down no fever no cough no coronavirus exposures he has presents with a pulse ox of 88% on room air he does not have COPD and does not have an oxygen requirement [facility] Medical History Acute urinary retention Back pain BPH (benign prostatic hyperplasia) Chronic combined systolic and diastolic CHF (congestive heart failure) Constipation Essential (primary) hypertension History of tobacco use HLD (hyperlipidemia) Hypertrophic cardiomyopathy Left bundle branch block Leucocytosis Longstanding persistent atrial fibrillation Non-ischemic cardiomyopathy Obesity (BMI 30.0-34.9) KIMBERLY (obstructive sleep apnea) Pneumonia Renal infarct Secondary pulmonary arterial hypertension Umbilical hernia Home Medications cyanocobalamin (vitamin B-12) 1,000 mcg IM Q30D 06/08/16 [History Last Taken 01/29/19] warfarin 5 mg PO MOWEFR 02/09/19 [History Last Taken 12/21/20] warfarin 2.5 mg PO SUTUTHSA 07/11/19 [History Last Taken 12/20/20] finasteride 5 mg tablet 5 mg PO DAILY tablet 12/19/20 [History Last Taken 12/22/20] lisinopril 20 mg tablet 20 mg PO DAILY tab 01/22/21 [History Last Taken Unknown] carvedilol 12.5 mg tablet 12.5 mg PO BID #60 tab 02/13/21 [Rx Last Taken Unknown] furosemide 40 mg tablet 40 mg PO DAILY #30 tab 02/13/21 [Rx Last Taken Unknown] glimepiride 1 mg tablet 1 mg PO DAILY tab 02/13/21 [History Last Taken Unknown] Allergy/AdvReac Type Severity Reaction Status Date / Time rivaroxaban [From Xarelto] Allergy Bleeding Verified 02/16/21 08:57 metoprolol AdvReac bradycardia Verified 02/16/21 08:57 Family History Father Heart disease Sister Heart disease Brother Heart disease Surgical History History of appendectomy History of transurethral resection of prostate (01/2019) History of ventricular septal myectomy (2000) Hx of umbilical hernia repair Social History Smoking Status: Former smoker how long ago did patient quit smokin years ago 0.25ppd second hand exposure: Yes alcohol intake: never caffeine: Yes Type: coffee Number of servings: 1 ROS ROS ED ROS Narrative Shortness of breath as above Constitutional Constitutional ED: Reports subjective, sweats and other; Denies chills, fever(s) or weight loss Eyes Eyes: Denies blurry vision or change in vision ENT ENT ED: Denies ear pain Cardiovascular Cardiovascular: Denies chest pain or palpitations Respiratory/Chest Respiratory/Chest: Reports dyspnea Gastrointestinal Gastrointestinal: Denies abdominal pain, nausea or vomiting Genitourinary Genitourinary ED: Denies dysuria or hematuria Musculoskeletal Musculoskeletal: Denies arthralgias or myalgias Integumentary Reports rash; Denies abscess Neurologic Neurologic: Denies weakness Psychiatric Psychiatric: Denies anxiety or depression Endocrine Endocrinology: Denies polydipsia or polyuria Allergic/Immunologic Allergic/Immunologic ED: Denies urticaria EXAM Physical Exam Narrative Exam Narrative: Some minimal rales at the bases lung excursion is good his vital signs are unremarkable heart tones are unremarkable his blood pressure was one 190/90, he was put on oxygen his pulse ox now is 95% is feeling better Const Vital Signs: 02/16/21 08:57 02/16/21 10:58 02/16/21 11:00 Temperature 97.4 F L Temperature Source Temporal Pulse Rate 83 Respiratory Rate 22 H Respiratory Effort Short of Breath Blood Pressure 170/92 H Blood Pressure Mean 118 Pulse Ox 92 94 Oxygen Delivery Method Room Air Nasal Cannula Nasal Cannula Oxygen Flow Rate (L/min) 3 3 02/16/21 11:01 02/16/21 11:54 Temperature 98.1 F Temperature Source Oral Pulse Rate 83 90 Respiratory Rate 26 H 23 H Respiratory Effort Blood Pressure 189/91 H 201/95 H Blood Pressure Mean 123 130 Pulse Ox 94 95 Oxygen Delivery Method Nasal Cannula Nasal Cannula Oxygen Flow Rate (L/min) 3 3 Positive well developed General Appearance ED: well developed HEENT Reports normocephalic Negative for trauma Eyes EOMs intact bilaterally Neck supple Chest Wall inspection of chest normal Resp normal respiratory effort Cardio regular rate GI non-tender and non-distended Back/Spine Back/Spine Narrative: unremarkable Extremity normal to inspection Neuro oriented x3 and CN's II-XII intact bilaterally Sensorium / Orientation: alert Psych mental status grossly normal Skin no rashes or lesions noted MDM MDM MDM Narrative Medical decision making narrative: Patient's EKG shows left bundle nothing acute, ED screening labs show white count of 18,000 creatinine 1.62 near baseline History of hypertrophic cardiomyopathy CHF myomectomy, given all the above and comfort and that she was case condition spoke with hospitalist arrange for admission best we consult cardiology which we did and will arrange for admission cardiology and hospitalist team are developing a plan Admit stable Final impression, congestive heart failure, history of hypertrophic cardiomyopathy CHF hypertension Lab Data Labs: Laboratory Results - last 24 hr 02/16/21 02/16/21 02/16/21 10:45 10:45 10:45 WBC 18.7 H RBC 4.96 Hgb 14.3 Hct 44.4 MCV 89.5 MCH 28.8 MCHC 32.2 RDW Std Deviation 47.0 H RDW Coeff of Kiersten 14.5 Plt Count 192 MPV 11.8 Immature Gran % (Auto) 0.700 Neut % (Auto) 90.3 H Lymph % (Auto) 2.4 L [place] % (Auto) 6.0 Eos % (Auto) 0.2 Baso % (Auto) 0.4 Absolute Neuts (auto) 16.8 H Absolute Lymphs (auto) 0.45 L Nucleated RBC % 0 Differential Comment SCANNED Sodium 139 Potassium 4.5 Chloride 106 Carbon Dioxide 26.0 Anion Gap 7 BUN 33 H Creatinine 1.62 H Estim Creat Clear Calc 33.22 Est GFR (MDRD) Af Amer 53 L Est GFR (MDRD) Non-Af 44 L BUN/Creatinine Ratio 20.4 H Glucose 146 H Lactic Acid 1.2 Calcium 9.2 Total Bilirubin 1.20 H AST 41 H ALT 60 Alkaline Phosphatase 82 Troponin I 0.045 B-Natriuretic Peptide Total Protein 7.9 Albumin 3.6 Globulin 4.3 H Albumin/Globulin Ratio 0.8 L 02/16/21 10:45 WBC RBC Hgb Hct MCV MCH MCHC RDW Std Deviation RDW Coeff of Kiersten Plt Count MPV Immature Gran % (Auto) Neut % (Auto) Lymph % (Auto) [place] % (Auto) Eos % (Auto) Baso % (Auto) Absolute Neuts (auto) Absolute Lymphs (auto) Nucleated RBC % Differential Comment Sodium Potassium Chloride Carbon Dioxide Anion Gap BUN Creatinine Estim Creat Clear Calc Est GFR (MDRD) Af Amer Est GFR (MDRD) Non-Af BUN/Creatinine Ratio Glucose Lactic Acid Calcium Total Bilirubin AST ALT Alkaline Phosphatase Troponin I B-Natriuretic Peptide 240.0 H Total Protein Albumin Globulin Albumin/Globulin Ratio Radiography Diagnostic Testing: Radiology Impression Chest X-Ray 02/16/21 09:25 IMPRESSION: CHF with interstitial edema. at 1059 Reported and signed by: Omar Hamilton MD Electronically Signed: Omar Hamilton MD at 10:58 EDT Tel , Service support , Discharge Plan Triage Chief Complaint: Shortness of Breath ED Provider: Patricia Lee Dx/Rx/DC Orders Prescriptions: No Action finasteride 5 mg tablet 5 mg PO DAILY RF: 0 lisinopril 20 mg tablet 20 mg PO DAILY RF: 0 furosemide 40 mg tablet 40 mg PO DAILY Qty: 30 RF: 11 carvedilol 12.5 mg tablet 12.5 mg PO BID Qty: 60 RF: 3 glimepiride 1 mg tablet 1 mg PO DAILY RF: 0 cyanocobalamin (vitamin B-12) 1,000 MCG/ML solution 1,000 mcg IM Q30D RF: 0 warfarin 5 MG tablet 5 mg PO MOWEFR RF: 0 warfarin 2.5 MG tablet 2.5 mg PO SUTUTHSA RF: 0 Primary Care Provider: Howard Escobar
--- NOTE | 2021-02-16 12:59 | HP.PCM.HOS_ITS ---
HPI - General General Date of Admission: 02/16/21 HPI Narrative ANTWAN GE, is a 75 M with multiple comorbidities came to ED for acute on chronic shortness of breath. Patient saw Dr. Turk on 02/13/2021 when he said he had shortness of breath. This got worse in the morning so that he could not talk or move without getting short of breath. He also had mild localized chest pain/pressure midsternal but he is not much concerned. He denies dizziness, syncope. Patient has history of hypertrophic cardiomyopathy status post septal myomectomy in 2000, persistent A. fib, left bundle branch block, hypertension and diabetes mellitus type 2. He was also admitted in the hospital in November 2020 for pneumonia. Echo at that time showed EF 45% with RVSP 53 mmHg and wall motion abnormalities. In ER, chest x-ray shows pulmonary congestion. EKG sinus rhythm with LAD at 81 bpm. The patient had Lasix 40 mg in the ER and is further admitted. [facility] Medical History (Updated 02/16/21 @ 13:[address] Josh Velasco MD) Acute on chronic combined systolic (congestive) and diastolic (congestive) heart failure Acute urinary retention Anemia due to stage 3b chronic kidney disease Back pain BPH (benign prostatic hyperplasia) Chronic combined systolic and diastolic CHF (congestive heart failure) Constipation Essential (primary) hypertension History of tobacco use HLD (hyperlipidemia) Hypertrophic cardiomyopathy Left bundle branch block Leucocytosis Longstanding persistent atrial fibrillation Non-ischemic cardiomyopathy Obesity (BMI 30.0-34.9) KIMBERLY (obstructive sleep apnea) Pneumonia Renal infarct Secondary pulmonary arterial hypertension Umbilical hernia Home Medications cyanocobalamin (vitamin B-12) 1,000 mcg IM Q30D 06/08/16 [History Last Taken 01/29/19] warfarin 5 mg PO MOWEFR 02/09/19 [History Last Taken 12/21/20] warfarin 2.5 mg PO SUTUTHSA 07/11/19 [History Last Taken 12/20/20] finasteride 5 mg tablet 5 mg PO DAILY tablet 12/19/20 [History Last Taken 12/22/20] lisinopril 20 mg tablet 20 mg PO DAILY tab 01/22/21 [History Last Taken Unknown] carvedilol 12.5 mg tablet 12.5 mg PO BID #60 tab 02/13/21 [Rx Last Taken Unknown] furosemide 40 mg tablet 40 mg PO DAILY #30 tab 02/13/21 [Rx Last Taken Unknown] glimepiride 1 mg tablet 1 mg PO DAILY tab 02/13/21 [History Last Taken Unknown] Allergy/AdvReac Type Severity Reaction Status Date / Time rivaroxaban [From Xarelto] Allergy Bleeding Verified 02/16/21 08:57 metoprolol AdvReac bradycardia Verified 02/16/21 08:57 Family History Father Heart disease Sister Heart disease Brother Heart disease Surgical History History of appendectomy History of transurethral resection of prostate (01/2019) History of ventricular septal myectomy (2000) Hx of umbilical hernia repair Social History Smoking Status: Former smoker how long ago did patient quit smokin years ago 0.25ppd second hand exposure: Yes alcohol intake: never caffeine: Yes Type: coffee Number of servings: 1 ROS ROS Narrative Constitutional: Reports fatigue and weakness. Dyspnea on minimal exertion HEENT: Reports systems reviewed and no addt'l complaints, except as documented Respiratory/Chest: Mild chest pain. Dyspnea at rest. Rest as described in HPI Gastrointestinal: Denies coffee ground emesis, hematemesis or vomiting Genitourinary: Denies burning urination. Had decreased urine output in the morning. Deep yellow color. History of feeding retention Musculoskeletal: Reports joint pain and limited range of motion Neurologic: Denies seizure-like activity skin: No ulcer. No rash Endocrinology: Reports systems reviewed and no addt'l complaints, except as documented Hematologic/Lymphatic: Reports systems reviewed and no addt'l complaints, except as documented Rest 12 ROS are negative except as mentioned in HPI Vital Signs Vital Signs Vital Signs: 02/16/21 08:57 02/16/21 10:58 02/16/21 11:00 Temperature 97.4 F L Temperature Source Temporal Pulse Rate 83 Respiratory Rate 22 H Respiratory Effort Short of Breath Blood Pressure 170/92 H Blood Pressure Mean 118 Pulse Ox 92 94 Oxygen Delivery Method Room Air Nasal Cannula Nasal Cannula Oxygen Flow Rate (L/min) 3 3 02/16/21 11:01 02/16/21 11:54 02/16/21 12:57 Temperature 98.1 F 98.1 F Temperature Source Oral Oral Pulse Rate 83 90 90 Respiratory Rate 26 H 23 H 23 H Respiratory Effort Blood Pressure 189/91 H 201/95 H 201/95 H Blood Pressure Mean 123 130 130 Pulse Ox 94 95 95 Oxygen Delivery Method Nasal Cannula Nasal Cannula Nasal Cannula Oxygen Flow Rate (L/min) 3 3 3 Weight Weight: 190 lb Body Mass Index (BMI) 31.6 Physical Exam Narrative Physical exam General: Alert, Oriented x3, Cooperative HEENT: Atraumatic, PERRLA, EOMI, Normocephalic Oral: No Gingival or Mucosal Lesions/ Ulcerations Neck: Supple, No JVD, Negative Carotid Bruits Lungs: Air entry diminished in bilateral lung bases. Bilateral crepitation present. Dyspnea at rest. Cardiovascular: Sinus rhythm, PVC, left bundle branch block, Normal S1, Normal S2, ejection systolic over left second ICS and holosystolic murmur over cardiac apex Abdomen: Mild ascites. Mainly epigastric region fullness. Bowel Sounds Present, Soft, Non Tender, Non-Distended : No renal angle tenderness. No suprapubic tenderness. Extremities: Bilateral ankle edema, Capillary Refill Less than 3 Seconds Skin: No rashes, No breakdown Musculoskeletal: No Tenderness to Palpation of Joints or Extremities Neurological: Cranial nerves II-XII grossly intact, Deep Tendon Reflexes 2+/4 and Symmetrical, Neuro grossly intact Psych/Mental Status: Normal Affect, Appropriate. Results Lab / Micro Data Result Diagrams: 02/16/21 10:45 02/16/21 10:45 Labs: Laboratory Results - last 24 hr 02/16/21 02/16/21 02/16/21 10:45 10:45 10:45 WBC 18.7 H RBC 4.96 Hgb 14.3 Hct 44.4 MCV 89.5 MCH 28.8 MCHC 32.2 RDW Std Deviation 47.0 H RDW Coeff of Kiersten 14.5 Plt Count 192 MPV 11.8 Immature Gran % (Auto) 0.700 Neut % (Auto) 90.3 H Lymph % (Auto) 2.4 L [place] % (Auto) 6.0 Eos % (Auto) 0.2 Baso % (Auto) 0.4 Absolute Neuts (auto) 16.8 H Absolute Lymphs (auto) 0.45 L Nucleated RBC % 0 Differential Comment SCANNED Sodium 139 Potassium 4.5 Chloride 106 Carbon Dioxide 26.0 Anion Gap 7 BUN 33 H Creatinine 1.62 H Estim Creat Clear Calc 33.22 Est GFR (MDRD) Af Amer 53 L Est GFR (MDRD) Non-Af 44 L BUN/Creatinine Ratio 20.4 H Glucose 146 H Lactic Acid 1.2 Calcium 9.2 Total Bilirubin 1.20 H AST 41 H ALT 60 Alkaline Phosphatase 82 Troponin I 0.045 B-Natriuretic Peptide Total Protein 7.9 Albumin 3.6 Globulin 4.3 H Albumin/Globulin Ratio 0.8 L 02/16/21 10:45 WBC RBC Hgb Hct MCV MCH MCHC RDW Std Deviation RDW Coeff of Kiersten Plt Count MPV Immature Gran % (Auto) Neut % (Auto) Lymph % (Auto) [place] % (Auto) Eos % (Auto) Baso % (Auto) Absolute Neuts (auto) Absolute Lymphs (auto) Nucleated RBC % Differential Comment Sodium Potassium Chloride Carbon Dioxide Anion Gap BUN Creatinine Estim Creat Clear Calc Est GFR (MDRD) Af Amer Est GFR (MDRD) Non-Af BUN/Creatinine Ratio Glucose Lactic Acid Calcium Total Bilirubin AST ALT Alkaline Phosphatase Troponin I B-Natriuretic Peptide 240.0 H Total Protein Albumin Globulin Albumin/Globulin Ratio Micro: Microbiology 02/16/21 11:00 SARS-CoV-2 Antigen (Rapid) - Final Mucosa - Nose Radiology Impression Chest X-Ray 02/16/21 09:25 IMPRESSION: CHF with interstitial edema. at 1059 Reported and signed by: Omar Hamilton MD Electronically Signed: Omar Hamilton MD at 10:58 EDT Tel , Service support , Assessment & Plan Assessment/Plan (1) Acute on chronic combined systolic (congestive) and diastolic (congestive) heart failure: (2) Longstanding persistent atrial fibrillation: (3) Hypertrophic cardiomyopathy: (4) Left bundle branch block: (5) Essential (primary) hypertension: PLAN: This 75-year-old gentleman came to ER with dyspnea at rest and finding consistent with CHF exacerbation. 1. Acute on chronic systolic and diastolic combined heart failure, HOCM status post septal myomectomy in 2000, MR, TR secondary pulmonary hypertension: Patient is being admitted in PCU. Lasix 40 mg IV now and then daily. Discussed with filling operator Dr. Burciaga. Carvedilol increased to 25 mg twice daily. Continue lisinopril 20 mg daily at home dose. On atorvastatin. Heart failure core measures including intake and output, fluid restriction less than 1500 mL, daily weight monitoring, kidney and electrolytes monitoring. Fasting profile and TSH tomorrow a.m. Serial troponin enzymes.Echo on 12/24/2020 at that time showed EF 45% with RVSP 53 mmHg, 1-2+ MR and 1-2+ TR. 2. Persistent A. fib: Patient on Coumadin. PT/INR 2.8. Continue home dose of Coumadin. 3. Diabetes mellitus type 2: Patient oral hypoglycemics held. On long-acting insulin. Accu-Cheks and cover with sliding scale. 4. 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 Creatinine is stable. 5. BPH: On finasteride 6. Hypertension: Blood pressure was 201/95. Give lisinopril 20 mg daily. Hydralazine 10 mg IV every 6 ordered. For systolic blood pressure more than 180 mmHg. Living will/advanced directive/end of life care: Patient does have living will or advanced directive. Patient's is power of prosecuting attorney for health. After discussion of benefits/risks procedures involved with full code, DNR CC arrest and DNR CC, the patient opted for DNR-CC Arrest with no intubation Patient does not want artificial life support including intubation, tube feed, ventilator and/chest compression, central venous catheter, vasopressor and DC shock if needed Total time spent in [id number] encounter in discussion of advanced directive 16 minutes. Charges/Coding Visit Charges Inpatient E&M: 47699 Init Hosp L3 Procedures Hospitalists Procedures: 52789 Advncd Care Plan 30 Min
[2021-02-16 13:11] LABS: International Normalized Ratio 2.8; Prothrombin Time (Protime)PT. 28.9 SECONDS (11.7-14.9)
--- NOTE | 2021-02-16 13:26 | EKG12_ITS ---
Test Reason : Blood Pressure : / mmHG Vent. Rate : 087 BPM Atrial Rate : 089 BPM P-R Int : 000 ms QRS Dur : 148 ms QT Int : 402 ms P-R-T Axes : 000 024 173 degrees QTc Int : 483 ms Atrial fibrillation Left bundle branch block Abnormal ECG When compared with ECG of 16-FEB-2021 09:19, MANUAL COMPARISON REQUIRED, DATA IS UNCONFIRMED Confirmed by ZANE STONER, FUENTES ([id number]), communications editor VIOLETA VILLALBA ([id number]) on 02/19/2021 9:38:49 AM Referred By: MICHELLE Confirmed By:FUENTES DEGROOT MD
[2021-02-16] MEDS: Lisinopril 20 MG Tablet PO (14:57)
[2021-02-16] MEDS: Insulin Lispro 100 UNIT/ML INSULN.PEN SC (15:05)
[2021-02-16 15:36] LABS: Bedside Glucose 275 mg/dL (70-110)
--- NOTE | 2021-02-16 18:57 | NURSING ---
Charge nurse spoke to about elevated troponins. No new orders at this time.
[2021-02-16] MEDS: Carvedilol 25 MG Tablet PO (21:16)
[2021-02-16] MEDS: Atorvastatin Calcium 40 MG Tablet PO (21:16)
[2021-02-16 22:36] LABS: Bedside Glucose 69 mg/dL (70-110)
--- NOTE | 2021-02-16 23:05 | NURSING ---
TELE ALARMING ADNIELLE, HR DOWN TO 35-39. PT AROUSES TO VERBAL STIMULI. DENIES C/O. AFIB. COREG WAS GIVEN @ HS. BP WAS 138/65, HR 77 @ HS.
[2021-02-17] VITALS (14 sets, daily range): BP systolic 95–150; BP diastolic 49–64; PULSE 35–63; RESP 15–18; TEMP 36.3–36.9; O2SAT 90–99
--- NOTE | 2021-02-17 00:28 | EKG12_ITS ---
Test Reason : DYSRHYTHMIA Blood Pressure : / mmHG Vent. Rate : 043 BPM Atrial Rate : 375 BPM P-R Int : 000 ms QRS Dur : 140 ms QT Int : 570 ms P-R-T Axes : 000 022 126 degrees QTc Int : 481 ms Atrial fibrillation Left bundle branch block Abnormal ECG When compared with ECG of 16-FEB-2021 13:47, MANUAL COMPARISON REQUIRED, DATA IS UNCONFIRMED Confirmed by ZANE STONER, FUENTES ([id number]), advertising editor VIOLETA VILLALBA ([id number]) on 02/19/2021 9:38:14 AM Referred By: REFUGIO Confirmed By:FUENTES DEGROOT MD
--- NOTE | 2021-02-17 00:41 | NURSING ---
OBTAINING EKG & STAT BMP FOR PERSISTENT INTERMITTENT LOW HR DOWN TO 30. REMAINS AFIB. PT'S CURRENT BP IS 95/58. PT IS AWAKE WITH CPAP ON AND DENIES C/O AT THIS TIME
[2021-02-17 01:36] LABS: Anion Gap 9 (5-15); BUN 42 mg/dL (7-18); BUN/Creat Ratio 22.5 RATIO (10-20); Calcium,Total 8.6 mg/dL (8.5-10.1); Chloride 104 mmol/L (98-107); Creatinine, Serum 1.87 mg/dL (0.70-1.30); EST Glomerular Filtration Rate 37 mL/min (>60); Est Glom Filt Rate - Afr Amer 45 mL/min (>60); Estimated Creatinine Clearance 28.78 ml/min; Glucose 129 mg/dL (74-106); Potassium 3.7 mmol/L (3.5-5.1); Sodium Level 139 mmol/L (136-145)
[2021-02-17] MEDS: Potassium Chloride Oral Tablet 20 MEQ PO (05:28)
[2021-02-17 06:31] LABS: Absolute Lymphocyte Count 1.28 X10^3/uL (0.83-4.51); Absolute Neutrophil Count 13.2 X10^3/uL (2.0-7.7); Basophil# 0.06 X10^3/uL; Basophil% 0.4 % (0-1); Eosinophil# 0.12 X10^3/uL; Eosinophils% 0.8 % (0-5); Hematocrit 38.7 % (40-54); Hemoglobin 12.6 g/dL (13.0-16.5); Lymphocyte # 1.28 X10^3/ul (0.83-4.51); Lymphocyte % 8.1 % (19-41); Mean Corp Hgb Conc 32.6 g/dL (32-36); Mean Corpuscular Hgb 28.6 pg (27.0-32.0); Mean Corpuscular Volume 87.8 fL (80-94); Mean Platelet Vol. 12.1 fl (6.2-12.0); Monocyte% 6.3 % (0-10); NRBC Flagged by Analyzer 0 % (0-5); Neutrophil # 13.22 X10^3/uL (2.7-7.7); Neutrophil % 83.8 % (47-70); Platelet Count 193 K/mm3 (150-450); RBC Distribution Width CV 14.5 % (11.6-14.6); RBC Distribution Width SD 46.4 fl (35.1-43.9); Red Blood Count 4.41 M/mm3 (4.6-6.2); White Blood Count 15.8 K/mm3 (4.4-11.0)
[2021-02-17 06:40] LABS: International Normalized Ratio 2.9; Prothrombin Time (Protime)PT. 29.7 SECONDS (11.7-14.9)
[2021-02-17 07:08] LABS: Anion Gap 7 (5-15); BUN 45 mg/dL (7-18); BUN/Creat Ratio 21.4 RATIO (10-20); Calcium,Total 8.9 mg/dL (8.5-10.1); Chloride 104 mmol/L (98-107); Cholesterol 183 mg/dL (200); EST Glomerular Filtration Rate 33 mL/min (>60); Est Glom Filt Rate - Afr Amer 40 mL/min (>60); Estimated Creatinine Clearance 25.63 ml/min; Glucose 116 mg/dL (74-106); High Density Lipoprotein 29 mg/dL; Potassium 3.7 mmol/L (3.5-5.1); Sodium Level 138 mmol/L (136-145); T4 Free Direct 1.33 ng/dL (0.76-1.46); Thyroid Stim Hormone (TSH) 0.68 uIU/mL (0.358-3.74); Triglycerides 116 mg/dL; Very Low Density Lipoprotein 23 mg/dL (5-40)
[2021-02-17 07:15] LABS: Bedside Glucose 119 mg/dL (70-110)
[2021-02-17] MEDS: Furosemide 40 MG/4 ML Vial IV (09:20)
[2021-02-17] MEDS: Finasteride 5 MG Tablet PO (09:21)
[2021-02-17] MEDS: Lisinopril 20 MG Tablet PO (09:24)
[2021-02-17] MEDS: 0.9% Saline Lock 10 ML Syringe IV (09:25)
[2021-02-17] MEDS: Insulin Lispro 100 UNIT/ML INSULN.PEN SC (11:01)
[2021-02-17 11:25] LABS: Bedside Glucose 169 mg/dL (70-110)
--- NOTE | 2021-02-17 12:06 | CON.PCM.CA_ITS ---
Assessment & Plan Assessment/Plan (1) Dyspnea: QUALIFIERS: Dyspnea type: shortness of breath Qualified Code(s): R06.02 - Shortness of breath PLAN: Appears to be secondary to CHF. Patient responded well to IV Lasix. However his creatinine went up. Nephrology has been consulted. It will be reasonable to hold the IV Lasix and encourage p.o. hydration and if necessary gentle IV hydration. Patient appears to have had a drop in his EF. It will be reasonable to proceed with coronary angiography when his creatinine is back to baseline, hemoptysis settles down and his INR is around 1.5 or lower. His Coumadin is on hold. (2) Chronic combined systolic and diastolic CHF (congestive heart failure): HPI Consult Data Date of Consult: 02/17/21 HPI Narrative HPI Narrative: ANTWAN GE, is a Pleasant 75-year-old man with a history of hypertrophic cardiomyopathy status post septal myectomy in 2000, persistent atrial fibrillation, mild cardiomyopathy, left bundle branch block, hypertension who presented to the emergency room because of shortness of breath. He was found to be in CHF and was started on IV Lasix. Patient responded to this well and his shortness of breath is significantly improved. His creatinine did go up slightly. Patient had an EF of 45% in November of this year. In May of last year his EF was 65%. His parts clerk plant maintenance Dr. Turk had spoken to him about evaluation of his coronary arteries. Patient also apparently had hemoptysis today. Review of systems: All systems reviewed. All else is negative except that in HPI [facility] Medical History (Updated 02/17/21 @ 12:[address] Jose F Burciaga MD) Acute on chronic combined systolic (congestive) and diastolic (congestive) heart failure Acute urinary retention Anemia due to stage 3b chronic kidney disease Back pain BPH (benign prostatic hyperplasia) Chronic combined systolic and diastolic CHF (congestive heart failure) Constipation CPAP (continuous positive airway pressure) dependence Diabetes Essential (primary) hypertension History of tobacco use HLD (hyperlipidemia) Hypertrophic cardiomyopathy Left bundle branch block Leucocytosis Longstanding persistent atrial fibrillation Non-ischemic cardiomyopathy Obesity (BMI 30.0-34.9) KIMBERLY (obstructive sleep apnea) Pneumonia Renal infarct Secondary pulmonary arterial hypertension Sleep apnea Umbilical hernia Home Medications cyanocobalamin (vitamin B-12) 1,000 mcg IM Q30D 06/08/16 [History Last Taken 01/29/19] warfarin 5 mg PO MOWEFR 02/09/19 [History Last Taken 12/21/20] warfarin 2.5 mg PO SUTUTHSA 07/11/19 [History Last Taken 12/20/20] finasteride 5 mg tablet 5 mg PO DAILY tablet 12/19/20 [History Last Taken 12/22/20] lisinopril 20 mg tablet 20 mg PO DAILY tab 01/22/21 [History Last Taken Unknown] carvedilol 12.5 mg tablet 12.5 mg PO BID #60 tab 02/13/21 [Rx Last Taken Unknown] furosemide 40 mg tablet 40 mg PO DAILY #30 tab 02/13/21 [Rx Last Taken Unknown] glimepiride 1 mg tablet 1 mg PO DAILY tab 02/13/21 [History Last Taken Unknown] Allergy/AdvReac Type Severity Reaction Status Date / Time rivaroxaban [From Xarelto] Allergy Bleeding Verified 02/16/21 08:57 metoprolol AdvReac bradycardia Verified 02/16/21 08:57 Family History Father Heart disease Sister Heart disease Brother Heart disease Surgical History History of appendectomy History of transurethral resection of prostate (01/2019) History of ventricular septal myectomy (2000) Hx of umbilical hernia repair Social History Smoking Status: Former smoker how long ago did patient quit smokin years ago 0.25ppd second hand exposure: Yes alcohol intake: never caffeine: Yes Type: coffee Number of servings: 1 Physical Exam Const alert and oriented x3 Orientation / Consciousness: awake HEENT normocephalic Eyes no scleral icterus Neck supple Resp normal respiratory effort Cardio Cardio Narrative: Irregular rhythm. Extremity no pedal edema Skin no rashes or lesions noted Neuro oriented x3 Psych mental status grossly normal Objective Data Vital Signs: Vital Signs Temp Pulse Resp BP Pulse Ox 97.9 F 49 L 18 97/53 L 96 02/17/21 11:32 02/17/21 11:42 02/17/21 11:32 02/17/21 11:32 02/17/21 11:32 Oxygen Flow Rate (L/min) 2 Oxygen Delivery Method Nasal Cannula Weight: 188 lb 0.869 oz Body Mass Index (BMI) 31.3 Intake & Output: Intake and Output for Last 24 Hours 02/15/21 02/16/21 02/17/21 23:59 23:59 23:59 Intake Total 240 / 240 450 / 450 Output Total 1250 / 1400 400 / 400 Balance -1010 / -1160 50 / 50 Lab / Micro Data Result Diagrams: 02/17/21 05:58 02/17/21 05:58 Labs: Laboratory Results - last 24 hr 02/16/21 02/16/21 02/16/21 10:45 12:50 14:30 WBC RBC Hgb Hct MCV MCH MCHC RDW Std Deviation RDW Coeff of Kiersten Plt Count MPV Immature Gran % (Auto) Neut % (Auto) Lymph % (Auto) Garland % (Auto) Eos % (Auto) Baso % (Auto) Absolute Neuts (auto) Absolute Lymphs (auto) Nucleated RBC % PT 28.9 H INR 2.8 Sodium Potassium Chloride Carbon Dioxide Anion Gap BUN Creatinine Estim Creat Clear Calc Est GFR (MDRD) Af Amer Est GFR (MDRD) Non-Af BUN/Creatinine Ratio Glucose Calcium Magnesium 2.0 Troponin I 0.050 H Triglycerides Cholesterol LDL Cholesterol VLDL Cholesterol HDL Cholesterol TSH Free T4 POC Glucose 02/16/21 02/16/21 02/16/21 15:01 17:14 21:20 WBC RBC Hgb Hct MCV MCH MCHC RDW Std Deviation RDW Coeff of Kiersten Plt Count MPV Immature Gran % (Auto) Neut % (Auto) Lymph % (Auto) Garland % (Auto) Eos % (Auto) Baso % (Auto) Absolute Neuts (auto) Absolute Lymphs (auto) Nucleated RBC % PT INR Sodium Potassium Chloride Carbon Dioxide Anion Gap BUN Creatinine Estim Creat Clear Calc Est GFR (MDRD) Af Amer Est GFR (MDRD) Non-Af BUN/Creatinine Ratio Glucose Calcium Magnesium Troponin I 0.053 H Triglycerides Cholesterol LDL Cholesterol VLDL Cholesterol HDL Cholesterol TSH Free T4 POC Glucose 275 H 69 L 02/17/21 02/17/21 02/17/21 00:49 05:58 05:58 WBC 15.8 H RBC 4.41 L Hgb 12.6 L Hct 38.7 L MCV 87.8 MCH 28.6 MCHC 32.6 RDW Std Deviation 46.4 H RDW Coeff of Kiersten 14.5 Plt Count 193 MPV 12.1 H Immature Gran % (Auto) 0.600 Neut % (Auto) 83.8 H Lymph % (Auto) 8.1 L Garland % (Auto) 6.3 Eos % (Auto) 0.8 Baso % (Auto) 0.4 Absolute Neuts (auto) 13.2 H Absolute Lymphs (auto) 1.28 Nucleated RBC % 0 PT 29.7 H INR 2.9 Sodium 139 Potassium 3.7 Chloride 104 Carbon Dioxide 26.0 Anion Gap 9 BUN 42 H Creatinine 1.87 H Estim Creat Clear Calc 28.78 Est GFR (MDRD) Af Amer 45 L Est GFR (MDRD) Non-Af 37 L BUN/Creatinine Ratio 22.5 H Glucose 129 H Calcium 8.6 Magnesium Troponin I Triglycerides Cholesterol LDL Cholesterol VLDL Cholesterol HDL Cholesterol TSH Free T4 POC Glucose 02/17/21 02/17/21 02/17/21 05:58 06:42 10:56 WBC RBC Hgb Hct MCV MCH MCHC RDW Std Deviation RDW Coeff of Kiersten Plt Count MPV Immature Gran % (Auto) Neut % (Auto) Lymph % (Auto) Garland % (Auto) Eos % (Auto) Baso % (Auto) Absolute Neuts (auto) Absolute Lymphs (auto) Nucleated RBC % PT INR Sodium 138 Potassium 3.7 Chloride 104 Carbon Dioxide 27.0 Anion Gap 7 BUN 45 H Creatinine 2.10 H Estim Creat Clear Calc 25.63 Est GFR (MDRD) Af Amer 40 L Est GFR (MDRD) Non-Af 33 L BUN/Creatinine Ratio 21.4 H Glucose 116 H Calcium 8.9 Magnesium Troponin I Triglycerides 116 Cholesterol 183 LDL Cholesterol 131 H VLDL Cholesterol 23 HDL Cholesterol 29 L TSH 0.68 Free T4 1.33 POC Glucose 119 H 169 H Micro: Microbiology 02/16/21 11:00 Mucosa - Nose SARS-CoV-2 Antigen (Rapid) - Final Cardiology Labs/Tests 02/16/21 10:45: Magnesium 2.0 02/16/21 12:50: PT 28.9 H, INR 2.8 02/16/21 14:30: Troponin I 0.050 H 02/16/21 17:14: Troponin I 0.053 H 02/17/21 00:49: Sodium 139, Potassium 3.7, Chloride 104, Carbon Dioxide 26.0, Anion Gap 9, BUN 42 H, Creatinine 1.87 H, Est GFR (MDRD) Af Amer 45 L, Est GFR (MDRD) Non-Af 37 L, BUN/Creatinine Ratio 22.5 H, Glucose 129 H, Calcium 8.6 02/17/21 05:58: WBC 15.8 H, RBC 4.41 L, Hgb 12.6 L, Hct 38.7 L, MCV 87.8, MCH 28.6, MCHC 32.6, Plt Count 193, MPV 12.1 H, Immature Gran % (Auto) 0.600, Neut % (Auto) 83.8 H, Lymph % (Auto) 8.1 L, Garland % (Auto) 6.3, Eos % (Auto) 0.8, Baso % (Auto) 0.4, Absolute Neuts (auto) 13.2 H, Nucleated RBC % 0 02/17/21 05:58: PT 29.7 H, INR 2.9 02/17/21 05:58: Sodium 138, Potassium 3.7, Chloride 104, Carbon Dioxide 27.0, Anion Gap 7, BUN 45 H, Creatinine 2.10 H, Est GFR (MDRD) Af Amer 40 L, Est GFR (MDRD) Non-Af 33 L, BUN/Creatinine Ratio 21.4 H, Glucose 116 H, Calcium 8.9, Triglycerides 116, Cholesterol 183, LDL Cholesterol 131 H, VLDL Cholesterol 23, HDL Cholesterol 29 L Rhythm: EKG: ECHO: Stress Test: Cardiac Cath: PCI: CT Surgery: Holter monitor: EPS: PPM: CXR: Chest CT Scan:
--- NOTE | 2021-02-17 12:55 | PCM.PN.HOSP ---
Subjective Subjective Patient had hemoptysis about 4-5 times, streaks of blood in the sputum. He had hemoptysis in the past. Shortness of breath is improved. Creatinine went up. cut off saw set up operator shows sinus rhythm with PVCs. Bradycardia heart rate in 40s, one-time 36/min mostly due to increased dose of Coreg. Coreg was held and will resume if his heart rate comes up around 70s. Objective Data Objective Data Vital Signs: Vital Signs Temp Pulse Resp BP Pulse Ox 97.9 F 49 L 18 97/53 L 96 02/17/21 11:32 02/17/21 11:42 02/17/21 11:32 02/17/21 11:32 02/17/21 11:32 Oxygen Flow Rate (L/min) 2 Oxygen Delivery Method Nasal Cannula Weight: 188 lb 0.869 oz Body Mass Index (BMI) 31.3 Intake & Output: Intake and Output for Last 24 Hours 02/15/21 02/16/21 02/17/21 23:59 23:59 23:59 Intake Total 240 / 240 450 / 450 Output Total 1250 / 1400 400 / 400 Balance -1010 / -1160 50 / 50 Lab / Micro Data Result Diagrams: 02/17/21 05:58 02/17/21 05:58 Labs: Laboratory Results - last 24 hr 02/16/21 02/16/21 02/16/21 10:45 12:50 14:30 WBC RBC Hgb Hct MCV MCH MCHC RDW Std Deviation RDW Coeff of Kiersten Plt Count MPV Immature Gran % (Auto) Neut % (Auto) Lymph % (Auto) Mcminn % (Auto) Eos % (Auto) Baso % (Auto) Absolute Neuts (auto) Absolute Lymphs (auto) Nucleated RBC % PT 28.9 H INR 2.8 Sodium Potassium Chloride Carbon Dioxide Anion Gap BUN Creatinine Estim Creat Clear Calc Est GFR (MDRD) Af Amer Est GFR (MDRD) Non-Af BUN/Creatinine Ratio Glucose Calcium Magnesium 2.0 Troponin I 0.050 H Triglycerides Cholesterol LDL Cholesterol VLDL Cholesterol HDL Cholesterol TSH Free T4 POC Glucose 02/16/21 02/16/21 02/16/21 15:01 17:14 21:20 WBC RBC Hgb Hct MCV MCH MCHC RDW Std Deviation RDW Coeff of Kiersten Plt Count MPV Immature Gran % (Auto) Neut % (Auto) Lymph % (Auto) Mcminn % (Auto) Eos % (Auto) Baso % (Auto) Absolute Neuts (auto) Absolute Lymphs (auto) Nucleated RBC % PT INR Sodium Potassium Chloride Carbon Dioxide Anion Gap BUN Creatinine Estim Creat Clear Calc Est GFR (MDRD) Af Amer Est GFR (MDRD) Non-Af BUN/Creatinine Ratio Glucose Calcium Magnesium Troponin I 0.053 H Triglycerides Cholesterol LDL Cholesterol VLDL Cholesterol HDL Cholesterol TSH Free T4 POC Glucose 275 H 69 L 02/17/21 02/17/21 02/17/21 00:49 05:58 05:58 WBC 15.8 H RBC 4.41 L Hgb 12.6 L Hct 38.7 L MCV 87.8 MCH 28.6 MCHC 32.6 RDW Std Deviation 46.4 H RDW Coeff of Kiersten 14.5 Plt Count 193 MPV 12.1 H Immature Gran % (Auto) 0.600 Neut % (Auto) 83.8 H Lymph % (Auto) 8.1 L Mcminn % (Auto) 6.3 Eos % (Auto) 0.8 Baso % (Auto) 0.4 Absolute Neuts (auto) 13.2 H Absolute Lymphs (auto) 1.28 Nucleated RBC % 0 PT 29.7 H INR 2.9 Sodium 139 Potassium 3.7 Chloride 104 Carbon Dioxide 26.0 Anion Gap 9 BUN 42 H Creatinine 1.87 H Estim Creat Clear Calc 28.78 Est GFR (MDRD) Af Amer 45 L Est GFR (MDRD) Non-Af 37 L BUN/Creatinine Ratio 22.5 H Glucose 129 H Calcium 8.6 Magnesium Troponin I Triglycerides Cholesterol LDL Cholesterol VLDL Cholesterol HDL Cholesterol TSH Free T4 POC Glucose 02/17/21 02/17/21 02/17/21 05:58 06:42 10:56 WBC RBC Hgb Hct MCV MCH MCHC RDW Std Deviation RDW Coeff of Kiersten Plt Count MPV Immature Gran % (Auto) Neut % (Auto) Lymph % (Auto) Mcminn % (Auto) Eos % (Auto) Baso % (Auto) Absolute Neuts (auto) Absolute Lymphs (auto) Nucleated RBC % PT INR Sodium 138 Potassium 3.7 Chloride 104 Carbon Dioxide 27.0 Anion Gap 7 BUN 45 H Creatinine 2.10 H Estim Creat Clear Calc 25.63 Est GFR (MDRD) Af Amer 40 L Est GFR (MDRD) Non-Af 33 L BUN/Creatinine Ratio 21.4 H Glucose 116 H Calcium 8.9 Magnesium Troponin I Triglycerides 116 Cholesterol 183 LDL Cholesterol 131 H VLDL Cholesterol 23 HDL Cholesterol 29 L TSH 0.68 Free T4 1.33 POC Glucose 119 H 169 H Micro: Microbiology 02/16/21 11:00 Mucosa - Nose SARS-CoV-2 Antigen (Rapid) - Final Physical Exam Narrative Physical exam General: Alert, Oriented x3, Cooperative HEENT: Atraumatic, PERRLA, EOMI, Normocephalic Oral: No Gingival or Mucosal Lesions/ Ulcerations Neck: Supple, No JVD, Negative Carotid Bruits Lungs: Air entry diminished in bilateral lung bases. Dyspnea resolved. No crepitations. Cardiovascular: Sinus rhythm, PVC, left bundle branch block, Normal S1, Normal S2, holosystolic murmur over LLSB and cardiac apex Abdomen: Mainly epigastric region fullness. Bowel Sounds Present, Soft, Non Tender, Non-Distended : No renal angle tenderness. No suprapubic tenderness. Extremities: Bilateral ankle edema improved, Capillary Refill Less than 3 Seconds Skin: No rashes, No breakdown Musculoskeletal: No Tenderness to Palpation of Joints or Extremities Neurological: Cranial nerves II-XII grossly intact, Deep Tendon Reflexes 2+/4 and Symmetrical, Neuro grossly intact Psych/Mental Status: Normal Affect, Appropriate. Assessment & Plan Assessment/Plan (1) Acute on chronic combined systolic (congestive) and diastolic (congestive) heart failure: (2) Longstanding persistent atrial fibrillation: (3) Hypertrophic cardiomyopathy: (4) Left bundle branch block: (5) Essential (primary) hypertension: PLAN: This 75-year-old gentleman came to ER with dyspnea at rest and finding consistent with CHF exacerbation. 1. Acute on chronic systolic and diastolic combined heart failure, HOCM status post septal myomectomy in 2000, MR, TR secondary pulmonary hypertension: Patient is being admitted in PCU. Lasix 40 mg IV now and then daily. Discussed with machine room operator Dr. Burciaga. Carvedilol increased to 25 mg twice daily. Continue lisinopril 20 mg daily at home dose. On atorvastatin. Heart failure core measures including intake and output, fluid restriction less than 1500 mL, daily weight monitoring, kidney and electrolytes monitoring. Fasting profile and TSH tomorrow a.m. Serial troponin enzymes.Echo on 12/24/2020 at that time showed EF 45% with RVSP 53 mmHg, 1-2+ MR and 1-2+ TR. 02/17: Shortness of breath is much improved but cost of increasing creatinine. Lasix is being held. Discussed with the machine room operator and plan for heart cath probably on Thursday when creatinine improves to baseline and INR around 2.0. LDL 131, HDL 29. Patient is started on atorvastatin 40 mg daily yesterday. 2. Persistent A. fib: Patient on Coumadin. PT/INR 2.8. Mild hemoptysis therefore Coumadin held, INR 2.9. Monitor INR daily 3. Diabetes mellitus type 2: Patient oral hypoglycemics held. On long-acting insulin. Accu-Cheks and cover with sliding scale. Glucose is controlled 169. Labile, glucose was 69 yesterday night. 4. 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 Creatinine is stable. Acute kidney injury on chronic kidney disease stage IIIb: Creatinine went up to 2.1. Nephrology has been consulted. Lasix discontinued. Lisinopril discontinued. Patient advised to have liberal fluid intake about 2 L/day. If still patient creatinine does not improve will give IV fluid/pending manufacturers service representative evaluation 5. BPH: On finasteride 6. Hypertension: Blood pressure was 201/95. Blood pressure is on lower side 113/61, 97/53. Lasix and lisinopril has been discontinued. Total time of the visit including total time spent in counseling or coordination of care, (more than 50% of the total time, spent in obtaining medical information from nurses and other ancillary care providers,explaining to the patient about labs, imaging, diagnosis and management), discussion with peoplesoft consultant, review of labs and imaging is 30 minutes. Living will/advanced directive/end of life care: Patient does have living will or advanced directive. Patient's is power of employment law attorney for health. After discussion of benefits/risks procedures involved with full code, DNR CC arrest and DNR CC, the patient opted for DNR-CC Arrest with no intubation Patient does not want artificial life support including intubation, tube feed, ventilator and/chest compression, central venous catheter, vasopressor and DC shock if needed Charges/Coding Visit Charges Inpatient E&M: 96735 Subs Hosp L3
[2021-02-17 16:21] LABS: Bedside Glucose 96 mg/dL (70-110)
--- NOTE | 2021-02-17 17:05 | CON.PCM.RE_ITS ---
Assessment & Plan Assessment/Plan (1) Acute kidney injury: (2) Chronic kidney disease, stage 3b: (3) Acute on chronic combined systolic (congestive) and diastolic (congestive) heart failure: (4) Hypertension: PLAN: Baseline creatinine seems around 1.5 mg deciliter. Acute kidney injury is likely from hemodynamic perturbation and possible cardiorenal syndrome. Creatinine increased to 2.1 mg deciliter. Patient seems nonoliguric. Agree with holding lisinopril and Lasix for now until we get more stable blood pressure. Keep mean arterial pressure more than 65. Please avoid nephrotoxic like NSAIDs and IV contrast unless absolutely necessary. There is no need for renal placement therapy. Cardiology is following. Planning for cardiac cath next week. CHF core measures. Thank you for the consult. Renal team will continue to follow. Call if any question Samuel Baker MD HPI Consult Data Date of Consult: 02/17/21 HPI Narrative HPI Narrative: ANTWAN GE, is a 75 M with past medical history of CHF, BPH, diabetes, hypertension, hyperlipidemia, hypertrophic cardiomyopathy, obstructive sleep apnea and secondary pulmonary hypertension. Patient was admitted to the hospital yesterday after he presented with shortness of breath along with chest pain. Chest x-ray shows pulmonary congestion. Patient's blood pressure was elevated in the 200. Patient was admitted for acute on chronic CHF. Patient started on IV Lasix 40 and also lisinopril 20 mg p.o. daily. Renal team consulted for acute kidney injury and chronic kidney disease. Baseline creatinine around 1.5. Patient presented yesterday with a creatinine 1.87 and increased to 2.1 today. Systolic blood pressure has been in the 90-100. Patient states she still making urine Lisinopril and Lasix stopped today due to worsening kidney function There has been no documented IV contrast exposure. No NSAID use. Denies urinary obstructive symptoms No skin rash. No gross hematuria 12 system review is negative except some leg edema shortness of breath which is better. No chest pain today. No nausea no vomiting [facility] Medical History (Updated 02/17/21 @ 17:[address] Samuel Baker MD) Acute on chronic combined systolic (congestive) and diastolic (congestive) heart failure Acute urinary retention Anemia due to stage 3b chronic kidney disease Back pain BPH (benign prostatic hyperplasia) Chronic combined systolic and diastolic CHF (congestive heart failure) Constipation CPAP (continuous positive airway pressure) dependence Diabetes Essential (primary) hypertension History of tobacco use HLD (hyperlipidemia) Hypertrophic cardiomyopathy Left bundle branch block Leucocytosis Longstanding persistent atrial fibrillation Non-ischemic cardiomyopathy Obesity (BMI 30.0-34.9) KIMBERLY (obstructive sleep apnea) Pneumonia Renal infarct Secondary pulmonary arterial hypertension Sleep apnea Umbilical hernia Home Medications cyanocobalamin (vitamin B-12) 1,000 mcg IM Q30D 06/08/16 [History Last Taken 01/29/19] warfarin 5 mg PO MOWEFR 02/09/19 [History Last Taken 12/21/20] warfarin 2.5 mg PO SUTUTHSA 07/11/19 [History Last Taken 12/20/20] finasteride 5 mg tablet 5 mg PO DAILY tablet 12/19/20 [History Last Taken 12/22/20] lisinopril 20 mg tablet 20 mg PO DAILY tab 01/22/21 [History Last Taken U nknown] carvedilol 12.5 mg tablet 12.5 mg PO BID #60 tab 02/13/21 [Rx Last Taken Unknown] furosemide 40 mg tablet 40 mg PO DAILY #30 tab 02/13/21 [Rx Last Taken Unknown] glimepiride 1 mg tablet 1 mg PO DAILY tab 02/13/21 [History Last Taken Unknown] Allergy/AdvReac Type Severity Reaction Status Date / Time rivaroxaban [From Xarelto] Allergy Bleeding Verified 02/16/21 08:57 metoprolol AdvReac bradycardia Verified 02/16/21 08:57 Family History Father Heart disease Sister Heart disease Brother Heart disease Surgical History History of appendectomy History of transurethral resection of prostate (01/2019) History of ventricular septal myectomy (2000) Hx of umbilical hernia repair Social History Smoking Status: Former smoker how long ago did patient quit smokin years ago 0.25ppd second hand exposure: Yes alcohol intake: never caffeine: Yes Type: coffee Number of servings: 1 Physical Exam Narrative Patient is awake alert oriented x3. No acute distress. Neck. No JVD Head. Atraumatic normocephalic. Mouth. Mouth mucosa is wet Heart. S1-S2 Chest: Bilateral lower lobes crackles left more than right. Neurology: Awake alert oriented no focal deficits. Abdomen: Soft positive bowel sounds no tenderness. Extremity: +1 edema of lower extremities Lab / Micro Data Result Diagrams: 02/17/21 05:58 02/17/21 05:58 Labs: Laboratory Results - last 24 hr 02/16/21 02/16/21 02/17/21 17:14 21:20 00:49 WBC RBC Hgb Hct MCV MCH MCHC RDW Std Deviation RDW Coeff of Kiersten Plt Count MPV Immature Gran % (Auto) Neut % (Auto) Lymph % (Auto) Pratt % (Auto) Eos % (Auto) Baso % (Auto) Absolute Neuts (auto) Absolute Lymphs (auto) Nucleated RBC % PT INR Sodium 139 Potassium 3.7 Chloride 104 Carbon Dioxide 26.0 Anion Gap 9 BUN 42 H Creatinine 1.87 H Estim Creat Clear Calc 28.78 Est GFR (MDRD) Af Amer 45 L Est GFR (MDRD) Non-Af 37 L BUN/Creatinine Ratio 22.5 H Glucose 129 H Calcium 8.6 Troponin I 0.053 H Triglycerides Cholesterol LDL Cholesterol VLDL Cholesterol HDL Cholesterol TSH Free T4 POC Glucose 69 L 02/17/21 02/17/21 02/17/21 05:58 05:58 05:58 WBC 15.8 H RBC 4.41 L Hgb 12.6 L Hct 38.7 L MCV 87.8 MCH 28.6 MCHC 32.6 RDW Std Deviation 46.4 H RDW Coeff of Kiersten 14.5 Plt Count 193 MPV 12.1 H Immature Gran % (Auto) 0.600 Neut % (Auto) 83.8 H Lymph % (Auto) 8.1 L Pratt % (Auto) 6.3 Eos % (Auto) 0.8 Baso % (Auto) 0.4 Absolute Neuts (auto) 13.2 H Absolute Lymphs (auto) 1.28 Nucleated RBC % 0 PT 29.7 H INR 2.9 Sodium 138 Potassium 3.7 Chloride 104 Carbon Dioxide 27.0 Anion Gap 7 BUN 45 H Creatinine 2.10 H Estim Creat Clear Calc 25.63 Est GFR (MDRD) Af Amer 40 L Est GFR (MDRD) Non-Af 33 L BUN/Creatinine Ratio 21.4 H Glucose 116 H Calcium 8.9 Troponin I Triglycerides 116 Cholesterol 183 LDL Cholesterol 131 H VLDL Cholesterol 23 HDL Cholesterol 29 L TSH 0.68 Free T4 1.33 POC Glucose 02/17/21 02/17/21 02/17/21 06:42 10:56 16:18 WBC RBC Hgb Hct MCV MCH MCHC RDW Std Deviation RDW Coeff of Kiersten Plt Count MPV Immature Gran % (Auto) Neut % (Auto) Lymph % (Auto) [place]att % (Auto) Eos % (Auto) Baso % (Auto) Absolute Neuts (auto) Absolute Lymphs (auto) Nucleated RBC % PT INR Sodium Potassium Chloride Carbon Dioxide Anion Gap BUN Creatinine Estim Creat Clear Calc Est GFR (MDRD) Af Amer Est GFR (MDRD) Non-Af BUN/Creatinine Ratio Glucose Calcium Troponin I Triglycerides Cholesterol LDL Cholesterol VLDL Cholesterol HDL Cholesterol TSH Free T4 POC Glucose 119 H 169 H 96
[2021-02-17] MEDS: Atorvastatin Calcium 40 MG Tablet PO (22:29)
[2021-02-17 22:41] LABS: Bedside Glucose 109 mg/dL (70-110)
[2021-02-18] VITALS (12 sets, daily range): BP systolic 118–144; BP diastolic 60–78; PULSE 46–62; RESP 15–18; TEMP 36.4–37.1; O2SAT 96–99
--- NOTE | 2021-02-18 00:08 | NURSING ---
PT REPORTS HE HAD SOME SMALL HEMOPTYSIS THIS BETO. COREG HELD TONIGHT D/T PERSISTENT BRADYCARDIA 40 & 50'S. MAKING PT NPO TONIGHT IN CASE OF CARDIAC CATH TOMORROW.
[2021-02-18 06:31] LABS: Basophil# 0.06 X10^3/uL; Basophil% 0.5 % (0-1); Eosinophil# 0.25 X10^3/uL; Eosinophils% 2.3 % (0-5); Hematocrit 36.7 % (40-54); Hemoglobin 11.9 g/dL (13.0-16.5); Lymphocyte % 13.6 % (19-41); Mean Corp Hgb Conc 32.4 g/dL (32-36); Mean Corpuscular Hgb 28.7 pg (27.0-32.0); Mean Corpuscular Volume 88.4 fL (80-94); Mean Platelet Vol. 11.7 fl (6.2-12.0); Monocyte# 1.08 X10^3/uL; Monocyte% 9.8 % (0-10); NRBC Flagged by Analyzer 0 % (0-5); Neutrophil # 8.04 X10^3/uL (2.7-7.7); Neutrophil % 72.7 % (47-70); Platelet Count 185 K/mm3 (150-450); RBC Distribution Width CV 14.6 % (11.6-14.6); RBC Distribution Width SD 47.1 fl (35.1-43.9); Red Blood Count 4.15 M/mm3 (4.6-6.2); White Blood Count 11.1 K/mm3 (4.4-11.0)
[2021-02-18 06:43] LABS: International Normalized Ratio 2.2; Prothrombin Time (Protime)PT. 23.4 SECONDS (11.7-14.9)
[2021-02-18 06:56] LABS: Albumin, Serum 2.8 g/dL (3.2-5.0); BUN 57 mg/dL (7-18); BUN/Creat Ratio 30.3 RATIO (10-20); Calcium,Total 8.8 mg/dL (8.5-10.1); Chloride 105 mmol/L (98-107); Creatinine, Serum 1.88 mg/dL (0.70-1.30); EST Glomerular Filtration Rate 37 mL/min (>60); Est Glom Filt Rate - Afr Amer 45 mL/min (>60); Estimated Creatinine Clearance 28.62 ml/min; Glucose 117 mg/dL (74-106); Phosphorus 3.5 mg/dL (2.5-4.9); Potassium 3.6 mmol/L (3.5-5.1); Sodium Level 138 mmol/L (136-145)
[2021-02-18 07:05] LABS: Bedside Glucose 111 mg/dL (70-110)
--- NOTE | 2021-02-18 08:11 | PN.CARD_ITS ---
Subjective Subjective Patient seen and evaluated. Appears to be doing better today. Objective Data Vital Signs: Vital Signs Temp Pulse Resp BP Pulse Ox 98.8 F 54 L 15 118/60 98 02/18/21 03:00 02/18/21 07:41 02/18/21 03:00 02/18/21 03:00 02/18/21 04:00 Oxygen Flow Rate (L/min) 2 Oxygen Delivery Method Nasal Cannula Weight: 187 lb 13.341 oz Body Mass Index (BMI) 31.3 Intake & Output: Intake and Output for Last 24 Hours 02/16/21 02/17/21 02/18/21 23:59 23:59 23:59 Intake Total 240 / 240 972 / 972 Output Total 1250 / 1400 1050 / 1050 350 / 350 Balance -1010 / -1160 -78 / -78 -350 / -350 Lab / Micro Data Result Diagrams: 02/18/21 06:24 02/18/21 06:24 Labs: Laboratory Results - last 24 hr 02/17/21 02/17/21 02/17/21 10:56 16:18 22:27 WBC RBC Hgb Hct MCV MCH MCHC RDW Std Deviation RDW Coeff of Kiersten Plt Count MPV Immature Gran % (Auto) Neut % (Auto) Lymph % (Auto) [place] % (Auto) Eos % (Auto) Baso % (Auto) Absolute Neuts (auto) Absolute Lymphs (auto) Nucleated RBC % PT INR Sodium Potassium Chloride Carbon Dioxide BUN Creatinine Estim Creat Clear Calc Est GFR (MDRD) Af Amer Est GFR (MDRD) Non-Af BUN/Creatinine Ratio Glucose Calcium Phosphorus Albumin POC Glucose 169 H 96 109 02/18/21 02/18/21 02/18/21 06:24 06:24 06:24 WBC 11.1 H RBC 4.15 L Hgb 11.9 L Hct 36.7 L MCV 88.4 MCH 28.7 MCHC 32.4 RDW Std Deviation 47.1 H RDW Coeff of Kiersten 14.6 Plt Count 185 MPV 11.7 Immature Gran % (Auto) 1.100 H Neut % (Auto) 72.7 H Lymph % (Auto) 13.6 L [place] % (Auto) 9.8 Eos % (Auto) 2.3 Baso % (Auto) 0.5 Absolute Neuts (auto) 8.0 H Absolute Lymphs (auto) 1.50 Nucleated RBC % 0 PT 23.4 H INR 2.2 Sodium 138 Potassium 3.6 Chloride 105 Carbon Dioxide 25.0 BUN 57 H Creatinine 1.88 H Estim Creat Clear Calc 28.62 Est GFR (MDRD) Af Amer 45 L Est GFR (MDRD) Non-Af 37 L BUN/Creatinine Ratio 30.3 H Glucose 117 H Calcium 8.8 Phosphorus 3.5 Albumin 2.8 L POC Glucose 02/18/21 06:48 WBC RBC Hgb Hct MCV MCH MCHC RDW Std Deviation RDW Coeff of Kiersten Plt Count MPV Immature Gran % (Auto) Neut % (Auto) Lymph % (Auto) [place] % (Auto) Eos % (Auto) Baso % (Auto) Absolute Neuts (auto) Absolute Lymphs (auto) Nucleated RBC % PT INR Sodium Potassium Chloride Carbon Dioxide BUN Creatinine Estim Creat Clear Calc Est GFR (MDRD) Af Amer Est GFR (MDRD) Non-Af BUN/Creatinine Ratio Glucose Calcium Phosphorus Albumin POC Glucose 111 H Micro: Microbiology 02/16/21 11:00 Mucosa - Nose SARS-CoV-2 Antigen (Rapid) - Final Cardiology Labs/Tests 02/18/21 06:24: PT 23.4 H, INR 2.2 02/18/21 06:24: WBC 11.1 H, RBC 4.15 L, Hgb 11.9 L, Hct 36.7 L, MCV 88.4, MCH 28.7, MCHC 32.4, Plt Count 185, MPV 11.7, Immature Gran % (Auto) 1.100 H, Neut % (Auto) 72.7 H, Lymph % (Auto) 13.6 L, [place] % (Auto) 9.8, Eos % (Auto) 2.3, Baso % (Auto) 0.5, Absolute Neuts (auto) 8.0 H, Nucleated RBC % 0 02/18/21 06:24: Sodium 138, Potassium 3.6, Chloride 105, Carbon Dioxide 25.0, BUN 57 H, Creatinine 1.88 H, Est GFR (MDRD) Af Amer 45 L, Est GFR (MDRD) Non-Af 37 L, BUN/Creatinine Ratio 30.3 H, Glucose 117 H, Calcium 8.8, Phosphorus 3.5 Rhythm: EKG: Atrial fibrillation with a left bundle branch block pattern noted ECHO: Stress Test: Cardiac Cath: PCI: CT Surgery: Holter monitor: EPS: PPM: CXR: Chest CT Scan: Physical Exam Const oriented x3 and healthy appearing Orientation / Consciousness: awake HEENT normocephalic Eyes PERRL and conjunctivae normal Neck supple, no JVD and no carotid bruits Chest inspection of chest normal Resp normal respiratory effort and clear to auscultation bilaterally Cardio Palpation: normal PMI Rate: regular rate Rhythm: abnormal rhythm and other Other Details: irregular rhythm Heart Sounds: S1 normal and S2 normal Peripheral Pulses: pulses 2+ throughout GI normal to inspection, nondistended, normoactive bowel sounds Extremity normal to inspection and no clubbing, cyanosis or edema Psych mental status grossly normal Assessment & Plan Assessment/Plan (1) Acute on chronic combined systolic (congestive) and diastolic (congestive) heart failure: PLAN: He does have evidence of acute on chronic congestive heart failure which appears to be mainly diastolic. His repeat echocardiogram in November was read as having reduced ejection fraction of 45% with segmental wall motion abnormalities. We will continue the beta-ceferino as well as the diuretics. It is unclear whether coronary artery disease may be playing a role here and for now we may hold his Coumadin and at appropriate time perform a limited left heart catheterization without ventriculogram to assess his coronary anatomy. (2) Longstanding persistent atrial fibrillation: PLAN: He does have evidence of persistent atrial fibrillation. Rate control will be improved. It appears that he is doing much better at this time. (3) History of ventricular septal myectomy: PLAN: He does have a history of previous ventricular septal myectomy. . (4) Hypertension: PLAN: His blood pressure appears to be under good control at this time.
--- NOTE | 2021-02-18 11:55 | CASEMGMT ---
ALEENA PONCE assessment: Face to Face with patient for initial transition planning/care coordination assessment. ALEENA PONCE introduced self and role at [facility], pt voices understanding and consents to assessment. Pt is sitting up in bed in no distress on 2L nc. Pt is A/Ox4 and answers questions appropriately. Pt's is at bedside during assessment. Care providers, pharmacy, and demographics verified. Presentation: Pt c/o SOB Admitting dx: CHF exac PCP: Shawn Specialists: Pt states no current specialists. Preferred Pharmacy: [facility] Insurance: [employer] A/B, [place] Prescription Benefit: MCR D Living Will/HPOA: Pt states has LW/HPOA and is aware that they are on file at [facility]. LNOK: Radha Osman, ; Everardo Osman, son Living Arrangements: Pt lives with in condo with 1 step in and full basement and states no concerns at home. Pt is independent with ADL's. Transportation: Pt drives self and states no transportation concerns. DME/HHC: Pt states has the following DME: cpap thru [facility] and [facility]. Pt states no need for any further DME. Pt states no hx of HHC or SNF. Pt states no concerns with going home at discharge. 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 Pt does not smoke cigarettes or drink ETOH. Pt voices no further concerns/needs. CM to follow for home oxygen need and any further discharge planning/needs. Advised pt to ask for CM if any further questions/concerns/needs arise, voices understanding. Pt Goal: Home Plan: [place] ALEENA PONCE
[2021-02-18 12:00] LABS: Bedside Glucose 113 mg/dL (70-110)
[2021-02-18] MEDS: Finasteride 5 MG Tablet PO (12:00)
--- NOTE | 2021-02-18 13:27 | PN.HOSP_ITS ---
Documented by User: Mariann Huber NP, IT TECHNICAL SUPPORT SPECIALIST-C 02/18/21 13:42 Subjective Subjective Patient seen and examined. States he has had some blood-tinged sputum which has been ongoing intermittently for about a week. Reports ongoing shortness of breath however improved from prior. Denies chest pain. Objective Data Objective Data Vital Signs: Vital Signs Temp Pulse Resp BP Pulse Ox 97.9 F 57 L 18 144/78 H 99 02/18/21 09:42 02/18/21 09:42 02/18/21 09:42 02/18/21 09:42 02/18/21 09:42 Oxygen Flow Rate (L/min) 2 Oxygen Delivery Method Nasal Cannula Weight: 187 lb 13.341 oz Body Mass Index (BMI) 31.3 Intake & Output: Intake and Output for Last 24 Hours 02/16/21 02/17/21 02/18/21 23:59 23:59 23:59 Intake Total 240 / 240 972 / 972 480 / 480 Output Total 1250 / 1400 1050 / 1050 950 / 950 Balance -1010 / -1160 -78 / -78 -470 / -470 Lab / Micro Data Result Diagrams: 02/18/21 06:24 02/18/21 06:24 Labs: Laboratory Results - last 24 hr 02/17/21 02/17/21 02/18/21 16:18 22:27 06:24 WBC RBC Hgb Hct MCV MCH MCHC RDW Std Deviation RDW Coeff of Kiersten Plt Count MPV Immature Gran % (Auto) Neut % (Auto) Lymph % (Auto) [place] % (Auto) Eos % (Auto) Baso % (Auto) Absolute Neuts (auto) Absolute Lymphs (auto) Nucleated RBC % PT 23.4 H INR 2.2 Sodium Potassium Chloride Carbon Dioxide BUN Creatinine Estim Creat Clear Calc Est GFR (MDRD) Af Amer Est GFR (MDRD) Non-Af BUN/Creatinine Ratio Glucose Calcium Phosphorus Albumin POC Glucose 96 109 02/18/21 02/18/21 02/18/21 06:24 06:24 06:48 WBC 11.1 H RBC 4.15 L Hgb 11.9 L Hct 36.7 L MCV 88.4 MCH 28.7 MCHC 32.4 RDW Std Deviation 47.1 H RDW Coeff of Kiersten 14.6 Plt Count 185 MPV 11.7 Immature Gran % (Auto) 1.100 H Neut % (Auto) 72.7 H Lymph % (Auto) 13.6 L [place] % (Auto) 9.8 Eos % (Auto) 2.3 Baso % (Auto) 0.5 Absolute Neuts (auto) 8.0 H Absolute Lymphs (auto) 1.50 Nucleated RBC % 0 PT INR Sodium 138 Potassium 3.6 Chloride 105 Carbon Dioxide 25.0 BUN 57 H Creatinine 1.88 H Estim Creat Clear Calc 28.62 Est GFR (MDRD) Af Amer 45 L Est GFR (MDRD) Non-Af 37 L BUN/Creatinine Ratio 30.3 H Glucose 117 H Calcium 8.8 Phosphorus 3.5 Albumin 2.8 L POC Glucose 111 H 02/18/21 11:54 WBC RBC Hgb Hct MCV MCH MCHC RDW Std Deviation RDW Coeff of Kiersten Plt Count MPV Immature Gran % (Auto) Neut % (Auto) Lymph % (Auto) [place] % (Auto) Eos % (Auto) Baso % (Auto) Absolute Neuts (auto) Absolute Lymphs (auto) Nucleated RBC % PT INR Sodium Potassium Chloride Carbon Dioxide BUN Creatinine Estim Creat Clear Calc Est GFR (MDRD) Af Amer Est GFR (MDRD) Non-Af BUN/Creatinine Ratio Glucose Calcium Phosphorus Albumin POC Glucose 113 H Micro: Microbiology 02/16/21 10:45 Blood Culture (Wb) - Left Forearm Blood Culture - Preliminary No growth in 48 hours. 02/16/21 10:45 Blood Culture (Wb) - Anticubital Left Blood Culture - Preliminary No growth in 48 hours. 02/16/21 11:00 Mucosa - Nose SARS-CoV-2 Antigen (Rapid) - Final Physical Exam Const alert, oriented x3 and no apparent distress Orientation / Consciousness: awake, oriented to person, oriented to place and oriented to time HEENT normocephalic and moist oral mucous membranes Eyes PERRL, EOMs intact bilaterally and conjunctivae normal Neck no lymphadenopathy Resp normal respiratory effort and clear to auscultation bilaterally Cardio regular rate and no murmurs Rhythm: abnormal rhythm other (a.fib) Peripheral Pulses: pulses 2+ throughout GI normal to inspection, nondistended, normoactive bowel sounds, non-tender and non-distended Extremity normal to inspection Skin no rashes or lesions noted Lesions: no lesions Rashes: no rashes Trauma: no lacerations or abrasions Neuro CN's II-XII intact bilaterally, no focal motor deficits, no sensory deficits noted and deep tendon reflexes 2+ bilaterally Psych mental status grossly normal and affect normal Assessment & Plan Assessment/Plan (1) Acute on chronic combined systolic (congestive) and diastolic (congestive) heart failure: PLAN: 1. Acute on chronic combined systolic and diastolic heart failure, history of hypertrophic cardiomyopathy with septal myectomy in 2000-recent ech ocardiogram in November 2020 demonstrated an EF of 45%. Continue IV Lasix. Strict I&O. Daily weight. Cardiology consulted. Plan for heart cath in a.m. to evaluate coronary anatomy. 2. Mild hemoptysis-recent treatment for pneumonia, patient is on Coumadin. Reports blood-streaked sputum, no joselito hemoptysis. Will monitor. 3. Persistent atrial fibrillation-continue beta-ceferino with hold parameters. Intermittent bradycardia. Coumadin on hold due to plans for cath. 4. Hypertension-stable, continue carvedilol, lisinopril. 5. Type 2 diabetes mellitus-oral regimen on hold. Accu-Cheks with sliding scale insulin. 6. Chronic kidney disease stage IIIb-stable, trend BMP. 7. BPH-on finasteride. 8. KIMBERLY-on BiPAP. DVT prophylaxis-SCDs, Coumadin on hold This patient was seen by ABELARDO BeckerC under the supervision of Dr. Valentine. Documented by User: Dr. Jolene Valentine DO 02/18/21 17:19 Subjective Subjective The patient was seen in conjunction with Mariann Huber NP. I agree with above and the following is representation my independent history and physical examination. Patient reports that he is feeling okay. Anxious to have his heart catheterization done. Asking if he can eat. Denies any significant shortness of breath. Objective Data Lab / Micro Data Result Diagrams: 02/18/21 06:24 02/18/21 06:24 Physical Exam Const alert, oriented x3 and no apparent distress Constitutional Narrative: Older white male, sitting up in bed, appears comfortable, nontoxic Exam Limitations: no limitations Eyes PERRL and EOMs intact bilaterally Neck supple Neck Narrative: Trachea midline Resp normal respiratory effort, no retractions, no use of accessory muscles and clear to auscultation bilaterally Cardio regular rate, regular rhythm, S1 normal heart sound, S2 normal heart sound, no murmurs, no rub, no gallops, no clicks and no JVD GI normal to inspection, nondistended, normoactive bowel sounds, soft to palpation, non-tender and non-distended Extremity normal to inspection and no clubbing, cyanosis or edema Peripheral Pulses: Yes pulses 2+ throughout Neuro oriented x3, CN's II-XII intact bilaterally, moves all extremities and no focal motor deficits Sensorium / Orientation: awake and alert Speech: speech normal Psych affect normal Assessment & Plan Assessment/Plan (1) Acute on chronic combined systolic (congestive) and diastolic (congestive) heart failure: (2) Longstanding persistent atrial fibrillation: (3) HLD (hyperlipidemia): QUALIFIERS: Hyperlipidemia type: unspecified Qualified Code(s): E78.5 - Hyperlipidemia, unspecified (4) Essential (primary) hypertension: (5) Chronic kidney disease, stage 3b: (6) Acute kidney injury: PLAN: Assessment: HFrEF Diastolic dysfunction Hemoptysis Leukocytosis History of hypertrophic cardiomyopathy status post septal myomectomy Mild acute anemia Persistent atrial fibrillation Hypertension DM-2 CEE CKD stage IIIb BPH KIMBERLY Plan: -CEE suspected related to cardiorenal syndrome -Serum creatinine is improving -Lasix added today -Continue beta-ceferino -will need to watch closely after cardiac catheterization for contrast-induced nephropathy -Plan is for cardiac catheterization tomorrow -Continue current coverage for diabetes -Wean oxygen as able Charges/Coding Visit Charges Inpatient E&M: 91351 Subs Hosp L2
--- NOTE | 2021-02-18 15:47 | CASEMGMT ---
RN CM: Pt with a LACE strata score of 4 indicating pt is at risk for readmission. Palliative care screen completed and pt does not meet criteria for palliative care at this time. Pb Gómez RN CM
--- NOTE | 2021-02-18 15:48 | CASEMGMT ---
RN CM: Pt with a LACE strata score of 3 indicating pt is at risk for readmission. Palliative care screen completed and pt does not meet criteria for palliative care at this time. Pb Gómez RN CM
--- NOTE | 2021-02-18 15:59 | PCM.PN.REN ---
Subjective Subjective Following for acute kidney injury on chronic kidney disease. The patient complains of mucus which subjectively causes dysphagia and cough. He denies current shortness of breath at rest. There is no chest pain. Sputum which she has been occasionally blood-tinged. Objective Data Objective Data Vital Signs: Vital Signs Temp Pulse Resp BP Pulse Ox 97.9 F 52 L 16 138/68 H 97 02/18/21 15:46 02/18/21 15:46 02/18/21 15:46 02/18/21 15:46 02/18/21 15:46 Oxygen Flow Rate (L/min) 1 Oxygen Delivery Method Nasal Cannula Weight: 85.2 kg Body Mass Index (BMI) 31.3 Intake & Output: Intake and Output for Last 24 Hours 02/16/21 02/17/21 02/18/21 23:59 23:59 23:59 Intake Total 240 / 240 972 / 972 480 / 480 Output Total 1250 / 1400 1050 / 1050 950 / 950 Balance -1010 / -1160 -78 / -78 -470 / -470 Lab / Micro Data Result Diagrams: 02/18/21 06:24 02/18/21 06:24 Labs: Laboratory Results - last 24 hr 02/17/21 02/17/21 02/18/21 16:18 22:27 06:24 WBC RBC Hgb Hct MCV MCH MCHC RDW Std Deviation RDW Coeff of Kiersten Plt Count MPV Immature Gran % (Auto) Neut % (Auto) Lymph % (Auto) [place] % (Auto) Eos % (Auto) Baso % (Auto) Absolute Neuts (auto) Absolute Lymphs (auto) Nucleated RBC % PT 23.4 H INR 2.2 Sodium Potassium Chloride Carbon Dioxide BUN Creatinine Estim Creat Clear Calc Est GFR (MDRD) Af Amer Est GFR (MDRD) Non-Af BUN/Creatinine Ratio Glucose Calcium Phosphorus Albumin POC Glucose 96 109 02/18/21 02/18/21 02/18/21 06:24 06:24 06:48 WBC 11.1 H RBC 4.15 L Hgb 11.9 L Hct 36.7 L MCV 88.4 MCH 28.7 MCHC 32.4 RDW Std Deviation 47.1 H RDW Coeff of Kiersten 14.6 Plt Count 185 MPV 11.7 Immature Gran % (Auto) 1.100 H Neut % (Auto) 72.7 H Lymph % (Auto) 13.6 L [place] % (Auto) 9.8 Eos % (Auto) 2.3 Baso % (Auto) 0.5 Absolute Neuts (auto) 8.0 H Absolute Lymphs (auto) 1.50 Nucleated RBC % 0 PT INR Sodium 138 Potassium 3.6 Chloride 105 Carbon Dioxide 25.0 BUN 57 H Creatinine 1.88 H Estim Creat Clear Calc 28.62 Est GFR (MDRD) Af Amer 45 L Est GFR (MDRD) Non-Af 37 L BUN/Creatinine Ratio 30.3 H Glucose 117 H Calcium 8.8 Phosphorus 3.5 Albumin 2.8 L POC Glucose 111 H 02/18/21 11:54 WBC RBC Hgb Hct MCV MCH MCHC RDW Std Deviation RDW Coeff of Kiersten Plt Count MPV Immature Gran % (Auto) Neut % (Auto) Lymph % (Auto) [place] % (Auto) Eos % (Auto) Baso % (Auto) Absolute Neuts (auto) Absolute Lymphs (auto) Nucleated RBC % PT INR Sodium Potassium Chloride Carbon Dioxide BUN Creatinine Estim Creat Clear Calc Est GFR (MDRD) Af Amer Est GFR (MDRD) Non-Af BUN/Creatinine Ratio Glucose Calcium Phosphorus Albumin POC Glucose 113 H Micro: Microbiology 02/16/21 10:45 Blood Culture (Wb) - Left Forearm Blood Culture - Preliminary No growth in 48 hours. 02/16/21 10:45 Blood Culture (Wb) - Anticubital Left Blood Culture - Preliminary No growth in 48 hours. 02/16/21 11:00 Mucosa - Nose SARS-CoV-2 Antigen (Rapid) - Final Physical Exam Narrative Patient is awake alert oriented x3. No acute distress. Neck. No JVD Head. Atraumatic normocephalic. Mouth. Mouth mucosa is moist. Heart. Normal S1, S2. No rubs or murmurs. Chest: Bilateral lower lobes crackles left more than right. Neurology: Awake alert oriented no focal deficits. Abdomen: Soft positive bowel sounds no tenderness. Extremity: No edema of lower extremities Assessment & Plan Assessment/Plan (1) Acute kidney injury: PLAN: CEE is likely due to cardiorenal syndrome. Continue current effort to treat heart failure with Lasix and beta-ceferino. Renal function has remained stable in the last 24 hours. There is no need for kidney replacement therapy. Current medications are reviewed and are appropriately dosed for the current estimated estimated creatinine clearance. Okay from nephrology standpoint for cardiac catheterization. We will monitor renal function with you. (2) Chronic kidney disease, stage 3b: PLAN: Baseline serum creatinine is around 1.6 mg/dL. (3) Acute on chronic combined systolic (congestive) and diastolic (congestive) heart failure: PLAN: The patient is on Lasix and carvedilol. Holding on restarting JAYDE inhibitor for now because of CEE. However, if renal function continues to improve, we can restart JAYDE inhibitor at a later date. (4) Hypertension: PLAN: BP is acceptable. The patient is on carvedilol and furosemide.
[2021-02-18] MEDS: Furosemide 40 MG/4 ML Vial IV (17:15)
[2021-02-18] MEDS: Atorvastatin Calcium 40 MG Tablet PO (21:24)
[2021-02-19] VITALS (17 sets, daily range): BP systolic 116–149; BP diastolic 61–101; PULSE 47–61; RESP 16–18; TEMP 36.4–36.8; O2SAT 93–97
--- NOTE | 2021-02-19 05:55 | EKG12_ITS ---
Test Reason : AM EKG Blood Pressure : / mmHG Vent. Rate : 050 BPM Atrial Rate : 000 BPM P-R Int : 000 ms QRS Dur : 130 ms QT Int : 514 ms P-R-T Axes : 000 025 189 degrees QTc Int : 468 ms Atrial fibrillation with slow ventricular response Left bundle branch block Abnormal ECG When compared with ECG of 17-FEB-2021 00:43, MANUAL COMPARISON REQUIRED, DATA IS UNCONFIRMED Confirmed by ZANE STONER, FUENTES ([id number]), field map editor VIOLETA VILLALBA ([id number]) on 02/22/2021 11:32:43 AM Referred By: MICHELLE Confirmed By:FUENTES DEGROOT MD
[2021-02-19 06:18] LABS: Absolute Lymphocyte Count 1.53 X10^3/uL (0.83-4.51); Absolute Neutrophil Count 7.3 X10^3/uL (2.0-7.7); Basophil# 0.08 X10^3/uL; Basophil% 0.8 % (0-1); Eosinophil# 0.22 X10^3/uL; Eosinophils% 2.2 % (0-5); Hematocrit 37.8 % (40-54); Hemoglobin 12.7 g/dL (13.0-16.5); Lymphocyte # 1.53 X10^3/ul (0.83-4.51); Lymphocyte % 15.1 % (19-41); Mean Corp Hgb Conc 33.6 g/dL (32-36); Mean Corpuscular Hgb 28.9 pg (27.0-32.0); Mean Corpuscular Volume 86.1 fL (80-94); Mean Platelet Vol. 11.3 fl (6.2-12.0); Monocyte# 0.93 X10^3/uL; Monocyte% 9.2 % (0-10); NRBC Flagged by Analyzer 0 % (0-5); Neutrophil # 7.26 X10^3/uL (2.7-7.7); Neutrophil % 71.9 % (47-70); Platelet Count 209 K/mm3 (150-450); RBC Distribution Width CV 14.2 % (11.6-14.6); RBC Distribution Width SD 44.9 fl (35.1-43.9); Red Blood Count 4.39 M/mm3 (4.6-6.2); White Blood Count 10.1 K/mm3 (4.4-11.0)
[2021-02-19 06:27] LABS: International Normalized Ratio 1.7
[2021-02-19 06:40] LABS: Albumin, Serum 3.1 g/dL (3.2-5.0); BUN 53 mg/dL (7-18); BUN/Creat Ratio 32.3 RATIO (10-20); Calcium,Total 8.9 mg/dL (8.5-10.1); Chloride 106 mmol/L (98-107); Creatinine, Serum 1.64 mg/dL (0.70-1.30); EST Glomerular Filtration Rate 43 mL/min (>60); Est Glom Filt Rate - Afr Amer 53 mL/min (>60); Estimated Creatinine Clearance 32.81 ml/min; Glucose 107 mg/dL (74-106); Phosphorus 3.2 mg/dL (2.5-4.9); Potassium 3.9 mmol/L (3.5-5.1); Sodium Level 140 mmol/L (136-145)
[2021-02-19 08:38] LABS: Bedside Glucose 84 mg/dL (70-110)
[2021-02-19 08:38] LABS: Bedside Glucose 92 mg/dL (70-110)
--- NOTE | 2021-02-19 09:22 | PCM.PN.CARD ---
Subjective Subjective Patient seen and evaluated. Underwent cardiac catheterization today Objective Data Vital Signs: Vital Signs Temp Pulse Resp BP Pulse Ox 97.9 F 61 16 149/75 H 94 02/19/21 06:29 02/19/21 06:29 02/19/21 06:29 02/19/21 06:29 02/19/21 08:01 Oxygen Flow Rate (L/min) 2 Oxygen Delivery Method Room Air Weight: 177 lb 14.609 oz Body Mass Index (BMI) 31.3 Intake & Output: Intake and Output for Last 24 Hours 02/17/21 02/18/21 02/19/21 23:59 23:59 23:59 Intake Total 972 / 972 880 / 1000 120 / 120 Output Total 1050 / 1050 1250 / 2450 2024 / 2024 Balance -78 / -78 -370 / -1450 -1905 / -1905 Lab / Micro Data Result Diagrams: 02/19/21 06:05 02/19/21 06:05 Labs: Laboratory Results - last 24 hr 02/18/21 02/18/21 02/18/21 11:54 17:20 21:20 WBC RBC Hgb Hct MCV MCH MCHC RDW Std Deviation RDW Coeff of Kiersten Plt Count MPV Immature Gran % (Auto) Neut % (Auto) Lymph % (Auto) [place] % (Auto) Eos % (Auto) Baso % (Auto) Absolute Neuts (auto) Absolute Lymphs (auto) Nucleated RBC % PT INR Sodium Potassium Chloride Carbon Dioxide BUN Creatinine Estim Creat Clear Calc Est GFR (MDRD) Af Amer Est GFR (MDRD) Non-Af BUN/Creatinine Ratio Glucose Calcium Phosphorus Albumin POC Glucose 113 H 84 92 02/19/21 02/19/21 02/19/21 06:05 06:05 06:05 WBC 10.1 RBC 4.39 L Hgb 12.7 L Hct 37.8 L MCV 86.1 MCH 28.9 MCHC 33.6 RDW Std Deviation 44.9 H RDW Coeff of Kiersten 14.2 Plt Count 209 MPV 11.3 Immature Gran % (Auto) 0.800 Neut % (Auto) 71.9 H Lymph % (Auto) 15.1 L [place] % (Auto) 9.2 Eos % (Auto) 2.2 Baso % (Auto) 0.8 Absolute Neuts (auto) 7.3 Absolute Lymphs (auto) 1.53 Nucleated RBC % 0 PT 19.0 H INR 1.7 Sodium 140 Potassium 3.9 Chloride 106 Carbon Dioxide 27.0 BUN 53 H Creatinine 1.64 H Estim Creat Clear Calc 32.81 Est GFR (MDRD) Af Amer 53 L Est GFR (MDRD) Non-Af 43 L BUN/Creatinine Ratio 32.3 H Glucose 107 H Calcium 8.9 Phosphorus 3.2 Albumin 3.1 L POC Glucose Micro: Microbiology 02/16/21 10:45 Blood Culture (Wb) - Left Forearm Blood Culture - Preliminary No growth in 48 hours. 02/16/21 10:45 Blood Culture (Wb) - Anticubital Left Blood Culture - Preliminary No growth in 48 hours. 02/16/21 11:00 Mucosa - Nose SARS-CoV-2 Antigen (Rapid) - Final Cardiology Labs/Tests 02/19/21 06:05: PT 19.0 H, INR 1.7 02/19/21 06:05: WBC 10.1, RBC 4.39 L, Hgb 12.7 L, Hct 37.8 L, MCV 86.1, MCH 28.9, MCHC 33.6, Plt Count 209, MPV 11.3, Immature Gran % (Auto) 0.800, Neut % (Auto) 71.9 H, Lymph % (Auto) 15.1 L, [place] % (Auto) 9.2, Eos % (Auto) 2.2, Baso % (Auto) 0.8, Absolute Neuts (auto) 7.3, Nucleated RBC % 0 02/19/21 06:05: Sodium 140, Potassium 3.9, Chloride 106, Carbon Dioxide 27.0, BUN 53 H, Creatinine 1.64 H, Est GFR (MDRD) Af Amer 53 L, Est GFR (MDRD) Non-Af 43 L, BUN/Creatinine Ratio 32.3 H, Glucose 107 H, Calcium 8.9, Phosphorus 3.2 Rhythm: EKG: ECHO: Stress Test: Cardiac Cath: PCI: CT Surgery: Holter monitor: EPS: PPM: CXR: Chest CT Scan: Assessment & Plan Assessment/Plan (1) Acute on chronic combined systolic (congestive) and diastolic (congestive) heart failure: PLAN: He does have evidence of acute on chronic congestive heart failure which appears to be mainly diastolic. His repeat echocardiogram in November was read as having reduced ejection fraction of 45% with segmental wall motion abnormalities. We will continue the beta-ceferino as well as the diuretics. His cardiac catheterization today demonstrated minimal nonobstructive coronary disease. I would recommend that we continue him on medical therapy. (2) Longstanding persistent atrial fibrillation: PLAN: He does have evidence of persistent atrial fibrillation. Rate control will be improved. It appears that he is doing much better at this time. (3) History of ventricular septal myectomy: PLAN: He does have a history of previous ventricular septal myectomy. . (4) Hypertension: PLAN: His blood pressure appears to be under good control at this time.
[2021-02-19] MEDS: 0.9% Normal Saline 1,000 ML 60 ML IV (09:47)
[2021-02-19] MEDS: 0.9% Saline Lock 10 ML Syringe IV (10:43)
[2021-02-19] MEDS: Finasteride 5 MG Tablet PO (10:43)
[2021-02-19] MEDS: Furosemide 40 MG/4 ML Vial IV (10:43)
[2021-02-19 11:11] LABS: Bedside Glucose 123 mg/dL (70-110)
--- NOTE | 2021-02-19 11:32 | PCM.PN.REN ---
Subjective Subjective Following for acute kidney injury on chronic kidney disease. The patient is status post cardiac catheterization today which did not show significant disease enough to require intervention. He denies chest pain, shortness of breath, or nausea. Cough has improved. There is no further blood-tinged sputum when he coughs. Objective Data Objective Data Vital Signs: Vital Signs Temp Pulse Resp BP Pulse Ox 98.3 F 59 L 18 144/71 H 96 02/19/21 11:00 02/19/21 11:00 02/19/21 11:00 02/19/21 11:00 02/19/21 11:00 Oxygen Flow Rate (L/min) 2 Oxygen Delivery Method Room Air Weight: 80.7 kg Body Mass Index (BMI) 31.3 Intake & Output: Intake and Output for Last 24 Hours 02/17/21 02/18/21 02/19/21 23:59 23:59 23:59 Intake Total 972 / 972 880 / 1000 120 / 120 Output Total 1050 / 1050 1250 / 2450 2024 / 2024 Balance -78 / -78 -370 / -1450 -1905 / -1905 Lab / Micro Data Result Diagrams: 02/19/21 06:05 02/19/21 06:05 Labs: Laboratory Results - last 24 hr 02/18/21 02/18/21 02/18/21 11:54 17:20 21:20 WBC RBC Hgb Hct MCV MCH MCHC RDW Std Deviation RDW Coeff of Kiersten Plt Count MPV Immature Gran % (Auto) Neut % (Auto) Lymph % (Auto) [place] % (Auto) Eos % (Auto) Baso % (Auto) Absolute Neuts (auto) Absolute Lymphs (auto) Nucleated RBC % PT INR Sodium Potassium Chloride Carbon Dioxide BUN Creatinine Estim Creat Clear Calc Est GFR (MDRD) Af Amer Est GFR (MDRD) Non-Af BUN/Creatinine Ratio Glucose Calcium Phosphorus Albumin POC Glucose 113 H 84 92 02/19/21 02/19/21 02/19/21 06:05 06:05 06:05 WBC 10.1 RBC 4.39 L Hgb 12.7 L Hct 37.8 L MCV 86.1 MCH 28.9 MCHC 33.6 RDW Std Deviation 44.9 H RDW Coeff of Kiersten 14.2 Plt Count 209 MPV 11.3 Immature Gran % (Auto) 0.800 Neut % (Auto) 71.9 H Lymph % (Auto) 15.1 L [place] % (Auto) 9.2 Eos % (Auto) 2.2 Baso % (Auto) 0.8 Absolute Neuts (auto) 7.3 Absolute Lymphs (auto) 1.53 Nucleated RBC % 0 PT 19.0 H INR 1.7 Sodium 140 Potassium 3.9 Chloride 106 Carbon Dioxide 27.0 BUN 53 H Creatinine 1.64 H Estim Creat Clear Calc 32.81 Est GFR (MDRD) Af Amer 53 L Est GFR (MDRD) Non-Af 43 L BUN/Creatinine Ratio 32.3 H Glucose 107 H Calcium 8.9 Phosphorus 3.2 Albumin 3.1 L POC Glucose 02/19/21 06:31 WBC RBC Hgb Hct MCV MCH MCHC RDW Std Deviation RDW Coeff of Kiersten Plt Count MPV Immature Gran % (Auto) Neut % (Auto) Lymph % (Auto) [place] % (Auto) Eos % (Auto) Baso % (Auto) Absolute Neuts (auto) Absolute Lymphs (auto) Nucleated RBC % PT INR Sodium Potassium Chloride Carbon Dioxide BUN Creatinine Estim Creat Clear Calc Est GFR (MDRD) Af Amer Est GFR (MDRD) Non-Af BUN/Creatinine Ratio Glucose Calcium Phosphorus Albumin POC Glucose 123 H Micro: Microbiology 02/16/21 10:45 Blood Culture (Wb) - Left Forearm Blood Culture - Preliminary No growth in 48 hours. 02/16/21 10:45 Blood Culture (Wb) - Anticubital Left Blood Culture - Preliminary No growth in 48 hours. 02/16/21 11:00 Mucosa - Nose SARS-CoV-2 Antigen (Rapid) - Final Physical Exam Narrative Patient is awake alert oriented x3. No acute distress. Neck: No JVD Head: Atraumatic normocephalic. Mouth: Mouth mucosa is moist. Heart: Normal S1, S2. No rubs or murmurs. Chest: Clear to auscultation anteriorly. Neurology: Awake alert oriented no focal deficits. Abdomen: Soft positive bowel sounds no tenderness. Extremity: Legs are wrapped in Virgilio bandage. No significant swelling from what I can see. Assessment & Plan Assessment/Plan (1) Acute kidney injury: PLAN: CEE is likely due to cardiorenal syndrome. Continue current effort to treat heart failure with Lasix and beta-ceferino. Renal function has continued to improve with diuresis in the last 72 hours. Renal function is close to baseline. Agree with continuing to diurese the patient as we are doing. We will continue to watch renal function since the patient received IV contrast today. Agree with temporary IV fluid to minimize risk of contrast associated nephropathy. There is no need for kidney replacement therapy. Current medications are reviewed and are appropriately dosed for the current estimated estimated creatinine clearance. Okay from nephrology standpoint for cardiac catheterization. We will monitor renal function with you. (2) Chronic kidney disease, stage 3b: PLAN: Baseline serum creatinine is around 1.6 mg/dL. The patient will need outpatient nephrology follow-up after discharge. I have his cell phone number, and I will have my office call the patient to arrange outpatient nephrology follow-up after discharge. (3) Acute on chronic combined systolic (congestive) and diastolic (congestive) heart failure: PLAN: The patient is on Lasix and carvedilol. Holding on restarting VIRGILIO inhibitor for now because of CEE. However, if renal function continues to improve, we can restart VIRGILIO inhibitor at a later date. (4) Hypertension: PLAN: BP is acceptable. The patient is on carvedilol and furosemide.
--- NOTE | 2021-02-19 13:20 | DCINST_ITS ---
Discharge Instructions Diet Discharge Diet: Low fat / Low cholesterol, 8 Cup Fluid Restriction and 2000 mg Sodium Diet Activity Discharge Activity: Return to Normal Activity Additional Activity Instructions:: Follow-up post cath instructions Dressing / Incision Call your doctor if you observe: Shortness of breath, Dizziness and Chest pain Follow Up Care Test Results: Test results from this visit will be discussed in further detail at your follow-up appointment, if applicable. Discharge Plan Admission Admit Date/Time: 02/16/21 12:55 Primary Reason for Your Visit: Heart failure Attending Provider: Jolene Valentine Primary Care Provider: Howard Escobar Consulting Providers: Jose F Burciaga ; Samuel Baker Discharge Orders/Prescriptions Prescriptions: New furosemide [Lasix] 40 mg tablet 40 mg PO BID Qty: 60 RF: 0 Continued finasteride 5 mg tablet 5 mg PO DAILY RF: 0 carvedilol 12.5 mg tablet 12.5 mg PO BID Qty: 60 RF: 3 glimepiride 1 mg tablet 1 mg PO DAILY RF: 0 cyanocobalamin (vitamin B-12) 1,000 MCG/ML solution 1,000 mcg IM Q30D RF: 0 warfarin 5 MG tablet 5 mg PO MOWEFR RF: 0 warfarin 2.5 MG tablet 2.5 mg PO SUTUTHSA RF: 0 Held lisinopril 20 mg tablet 20 mg PO DAILY RF: 0 Hold Instructions: Resume on 03/05/21. Hold until follow-up with nephrology. Discontinued furosemide 40 mg tablet 40 mg PO DAILY Qty: 30 RF: 11 Referrals / Follow Up: Howard Escobar DO [Primary Care Provider] - In 1 Week Zina Bray PA [PHYSICIAN ROLL GRINDER OPERATOR] - Within 2 Weeks Samuel Baker MD [STAFF PHYSICIAN] - See Referral Note (office to call for follow up) Disposition Disposition (needs filled in before D/C Order can be placed): Home, Self Care
--- NOTE | 2021-02-19 13:33 | PCM.DC.SUM ---
Documented by User: Mariann Huber NP, MANAGER PRICING-C 02/19/21 13:41 Providers Date of Admission: 02/16/21 Date of Discharge: 02/19/21 Primary Care Physician: Dr. Howard Escobar, Consultations 02/16/21 12:57 Consult: Cardiology Routine Consulting Provider: Jose F Burciaga Reason for Consult: Acute on chronic heart failure, HOCM, plan for card cath? by Dr Turk EMERGENT Consult: No Notified: Yes Date Notified: 02/16/21 Time Notified: 12:57 Method of Notification: Verbal Method of Consult:: In-Person 02/17/21 10:16 Consult: Nephrology Routine Consulting Provider: Samuel Baker Reason for Consult: CEE on CKD stage 3, CHF, HOCM EMERGENT Consult: No MD Notified: Yes Date Notified: 02/17/21 Time Notified: 10:51 Method of Notification: Answering Service Reason For Visit: CHF EXA, HOCM Diagnosis Discharge Diagnosis (1) Acute kidney injury: Status: Acute Code(s): N17.9 - Acute kidney failure, unspecified (2) Chronic kidney disease, stage 3b: Status: Acute Code(s): N18.32 - Chronic kidney disease, stage 3b (3) Acute on chronic combined systolic (congestive) and diastolic (congestive) heart failure: Status: Chronic Code(s): I50.43 - Acute on chronic combined systolic (congestive) and diastolic (congestive) heart failure (4) Hypertension: Status: Chronic Code(s): I10 - Essential (primary) hypertension Medications at Discharge Home Medications cyanocobalamin (vitamin B-12) 1,000 mcg IM Q30D 06/08/16 warfarin 5 mg PO MOWEFR 02/09/19 warfarin 2.5 mg PO SUTUTHSA 07/11/19 finasteride 5 mg tablet 5 mg PO DAILY tablet 12/19/20 lisinopril 20 mg tablet 20 mg PO DAILY tab 01/22/21 carvedilol 12.5 mg tablet 12.5 mg PO BID #60 tab 02/13/21 glimepiride 1 mg tablet 1 mg PO DAILY tab 02/13/21 furosemide [Lasix] 40 mg PO BID #60 tab 02/19/21 Hospital Course Operations None Procedures Cardiac catheterization Summary of Care Provided Minutes Spent on Discharge: 35 Hospital Course: Patient is a 75-year-old male admitted 02/16/2021 due to shortness of breath. 1. Acute on chronic combined systolic and diastolic heart failure, history of hypertrophic cardiomyopathy with septal myectomy in 2000-recent echocardiogram in November 2020 demonstrated an EF of 45%. IV Lasix during admission. Transition to Lasix 40 mg twice daily at discharge. Cardiology consulted during admission. Patient underwent heart cath which demonstrated nonobstructive coronary arteries. Follow-up with cardiology in 2 weeks. Follow-up with PCP in 1 week. 2. Mild hemoptysis-recent treatment for pneumonia, patient is on Coumadin. Reports blood-streaked sputum, no joselito hemoptysis. Resolved during admission. If patient has recurrent hemoptysis, will need further follow-up as outpatient. 3. Persistent atrial fibrillation-continue beta-ceferino. Resume Coumadin at discharge. 4. Hypertension-stable, continue carvedilol. Hold lisinopril at discharge until further nephrology follow-up. 5. Type 2 diabetes mellitus-continue home regimen. 6. CEE on Chronic kidney disease stage IIIb-suspected cardiorenal syndrome. Nephrology consulted during admission. Discharged on Lasix 40 mg twice daily per nephrology recommendations. Nephrology to call patient at discharge for further follow-up. 7. BPH-on finasteride. 8. KIMBERLY-on BiPAP. Physical Exam Const alert, oriented x3 and no apparent distress Orientation / Consciousness: awake, oriented to person, oriented to place and oriented to time HEENT normocephalic and moist oral mucous membranes Eyes PERRL, EOMs intact bilaterally and conjunctivae normal Neck no lymphadenopathy Resp normal respiratory effort and clear to auscultation bilaterally Cardio regular rate and no murmurs Rhythm: abnormal rhythm other (a.fib) Peripheral Pulses: pulses 2+ throughout GI normal to inspection, nondistended, normoactive bowel sounds, non-tender and non-distended Extremity normal to inspection Skin no rashes or lesions noted Lesions: no lesions Rashes: no rashes Trauma: no lacerations or abrasions Neuro CN's II-XII intact bilaterally, no focal motor deficits, no sensory deficits noted and deep tendon reflexes 2+ bilaterally Psych mental status grossly normal and affect normal Patient seen and examined prior to discharge. Physical assessment as noted above. Patient is stable for discharge with follow up recommendations as noted above. This patient was seen by RG Becker under the supervision of Dr. Valentine. Weight / BMI Weight Weight: 177 lb 14.609 oz Body Mass Index (BMI) 31.3 ABG / Lab / Microbiology Data Result Diagrams: 02/19/21 06:05 02/19/21 06:05 Laboratory: Laboratory Results - last 24 hr 02/18/21 02/18/21 02/19/21 17:20 21:20 06:05 WBC RBC Hgb Hct MCV MCH MCHC RDW Std Deviation RDW Coeff of Kiersten Plt Count MPV Immature Gran % (Auto) Neut % (Auto) Lymph % (Auto) [place] % (Auto) Eos % (Auto) Baso % (Auto) Absolute Neuts (auto) Absolute Lymphs (auto) Nucleated RBC % PT 19.0 H INR 1.7 Sodium Potassium Chloride Carbon Dioxide BUN Creatinine Estim Creat Clear Calc Est GFR (MDRD) Af Amer Est GFR (MDRD) Non-Af BUN/Creatinine Ratio Glucose Calcium Phosphorus Albumin POC Glucose 84 92 02/19/21 02/19/21 02/19/21 06:05 06:05 06:31 WBC 10.1 RBC 4.39 L Hgb 12.7 L Hct 37.8 L MCV 86.1 MCH 28.9 MCHC 33.6 RDW Std Deviation 44.9 H RDW Coeff of Kiersten 14.2 Plt Count 209 MPV 11.3 Immature Gran % (Auto) 0.800 Neut % (Auto) 71.9 H Lymph % (Auto) 15.1 L [place] % (Auto) 9.2 Eos % (Auto) 2.2 Baso % (Auto) 0.8 Absolute Neuts (auto) 7.3 Absolute Lymphs (auto) 1.53 Nucleated RBC % 0 PT INR Sodium 140 Potassium 3.9 Chloride 106 Carbon Dioxide 27.0 BUN 53 H Creatinine 1.64 H Estim Creat Clear Calc 32.81 Est GFR (MDRD) Af Amer 53 L Est GFR (MDRD) Non-Af 43 L BUN/Creatinine Ratio 32.3 H Glucose 107 H Calcium 8.9 Phosphorus 3.2 Albumin 3.1 L POC Glucose 123 H Microbiology: Microbiology 02/16/21 10:45 Blood Culture - Preliminary Blood Culture (Wb) - Left Forearm No growth in 48 hours. 02/16/21 10:45 Blood Culture - Preliminary Blood Culture (Wb) - Anticubital Left No growth in 48 hours. Microbiology 02/16/21 10:45 Blood Culture (Wb) - Left Forearm Blood Culture - Preliminary No growth in 48 hours. 02/16/21 10:45 Blood Culture (Wb) - Anticubital Left Blood Culture - Preliminary No growth in 48 hours. 02/16/21 11:00 Mucosa - Nose SARS-CoV-2 Antigen (Rapid) - Final D/C Instructions Discharge Diet: Low fat / Low cholesterol, 8 Cup Fluid Restriction and 2000 mg Sodium Diet Additional Activity Instructions: Follow-up post cath instructions Call your doctor if you observe: Shortness of breath, Dizziness and Chest pain Meaningful Use Info Meaningful Use Diagnoses (Choose all that apply): CHF AMI/Post PCI/Angioplasty Documented LVEF (%): 45 CHF JAYDE/ARB ordered at discharge?: No Reason JAYDE/ARB not ordered?: Worsening renal dysfunctn Documented LVEF (%): 45 Discharge Plan Admission Admit Date/Time: 02/16/21 12:55 Primary Reason for Your Visit: Heart failure Attending Provider: Jolene Valentine Primary Care Provider: Howard Escobar Consulting Providers: JoseF Burciaga ; Samuel Baker Instructions Additional Instructions / Restrictions: Patient Problems: Altered Health Status related to Hospitalization Patient Goals: *Optimal Level of Health *Keep Appointments *Medication Compliance *Remain Safe Discharge Orders/Prescriptions Prescriptions: New furosemide [Lasix] 40 mg tablet 40 mg PO BID Qty: 60 RF: 0 Continued finasteride 5 mg tablet 5 mg PO DAILY RF: 0 carvedilol 12.5 mg tablet 12.5 mg PO BID Qty: 60 RF: 3 glimepiride 1 mg tablet 1 mg PO DAILY RF: 0 cyanocobalamin (vitamin B-12) 1,000 MCG/ML solution 1,000 mcg IM Q30D RF: 0 warfarin 5 MG tablet 5 mg PO MOWEFR RF: 0 warfarin 2.5 MG tablet 2.5 mg PO SUTUTHSA RF: 0 Held lisinopril 20 mg tablet 20 mg PO DAILY RF: 0 Hold Instructions: Resume on 03/05/21. Hold until follow-up with nephrology. Discontinued furosemide 40 mg tablet 40 mg PO DAILY Qty: 30 RF: 11 Referrals / Follow Up: Samuel Baker MD [STAFF PHYSICIAN] - 02/27/21 10:45 am (WILL BE AT THE [facility] OFFICE.) Howard Escobar DO [Primary Care Provider] - 02/22/21 10:30 am Zina Bray PA [PHYSICIAN SLITTER AND REWINDER MACHINE OPERATOR] - 03/11/21 11:00 am Disposition Disposition (needs filled in before D/C Order can be placed): Home, Self Care Documented by User: Dr. Jolene Valentine DO 02/19/21 15:40 Providers Date of Admission: 02/16/21 Reason For Visit: CHF EXA, HOCM Medications at Discharge Home Medications cyanocobalamin (vitamin B-12) 1,000 mcg IM Q30D 06/08/16 warfarin 5 mg PO MOWEFR 02/09/19 warfarin 2.5 mg PO SUTUTHSA 07/11/19 finasteride 5 mg tablet 5 mg PO DAILY tablet 12/19/20 lisinopril 20 mg tablet 20 mg PO DAILY tab 01/22/21 carvedilol 12.5 mg tablet 12.5 mg PO BID #60 tab 02/13/21 glimepiride 1 mg tablet 1 mg PO DAILY tab 02/13/21 furosemide [Lasix] 40 mg PO BID #60 tab 02/19/21 Hospital Course Operations None Procedures Cardiac catheterization Summary of Care Provided Minutes Spent on Discharge: 38 Hospital Course: Mr. Osman is a 75-year-old white male who presented to the emergency department at [facility] on 02/16/2021 with acute on chronic shortness of breath. At that time the patient indicated that he had seen Dr. Benedicto walsh on 02/13/2021 and reported that he had shortness of breath then but he reported on admission that he was acutely worse and that is why presented to the emergency department. He stated that his breathing got so bad that he could not talk or move without getting short of breath. He also complained of mild localized chest pain/pressure in the midsternal area at that time as well. He was given 40 mg of IV Lasix in the emergency department admitted for acute on chronic HFrEF with diastolic dysfunction. Cardiology was consulted and the patient's Coreg was increased to 25 mg twice daily and he was placed on a fluid restriction of 1500 cc/day with daily weights and serial troponins. He responded well to the IV Lasix but his creatinine did trend up some so nephrology was consulted and it was felt by nephrology that his CEE was likely due to cardiorenal syndrome and that the patient should have continued diuresis with beta-ceferino. He had been on Coumadin for longstanding persistent atrial fibrillation and this was held on admission in anticipation of performing a cardiac catheterization which was done on 02/19/2021. His cardiac catheterization demonstrated minimally nonobstructive coronary disease and continued medical therapy was recommended. He will be able to restart his Coumadin tomorrow and he is to continue daily Lasix and follow-up in 2 to [address] Bravo in the outpatient office. Physical Exam Const alert, oriented x3 and no apparent distress Constitutional Narrative: Older white male lying in bed, he is just returned back from the [employer], appears comfortable, at bedside, nontoxic appearing, patient able to lie flat without any shortness of breath General Appearance: cooperative and comfortable HEENT normocephalic and head/scalp atraumatic Eyes PERRL, EOMs intact bilaterally and conjunctivae normal Neck supple and no JVD Neck Narrative: Trachea midline Resp normal respiratory effort, no retractions, no use of accessory muscles and clear to auscultation bilaterally Auscultation: Negative for crackles, rales, rhonchi or wheezes Cardio regular rate, S1 normal heart sound, S2 normal heart sound, no murmurs, no rub, no gallops, no clicks and no JVD Cardio Narrative: Irregular rhythm GI normal to inspection, nondistended, normoactive bowel sounds, soft to palpation, non-tender and non-distended; Negative for hepatosplenomegaly Extremity normal to inspection and no clubbing, cyanosis or edema Skin no rashes or lesions noted, no wounds, skin turgor normal and no jaundice Neuro oriented x3, CN's II-XII intact bilaterally, moves all extremities and no focal motor deficits Sensorium / Orientation: awake, alert, oriented to person, oriented to place and oriented to time Speech: speech normal Psych affect normal Psych Narrative: Very pleasant ABG / Lab / Microbiology Data Result Diagrams: 02/19/21 06:05 02/19/21 06:05 Discharge Plan Admission Admit Date/Time: 02/16/21 12:55 Primary Reason for Your Visit: Heart failure Attending Provider: Jolene Valentine Primary Care Provider: Howard Escobar Consulting Providers: Jose F Burciaga ; Samuel Baker Instructions Additional Instructions / Restrictions: Patient Problems: Altered Health Status related to Hospitalization Patient Goals: *Optimal Level of Health *Keep Appointments *Medication Compliance *Remain Safe Discharge Orders/Prescriptions Prescriptions: New furosemide [Lasix] 40 mg tablet 40 mg PO BID Qty: 60 RF: 0 Continued finasteride 5 mg tablet 5 mg PO DAILY RF: 0 carvedilol 12.5 mg tablet 12.5 mg PO BID Qty: 60 RF: 3 glimepiride 1 mg tablet 1 mg PO DAILY RF: 0 cyanocobalamin (vitamin B-12) 1,000 MCG/ML solution 1,000 mcg IM Q30D RF: 0 warfarin 5 MG tablet 5 mg PO MOWEFR RF: 0 warfarin 2.5 MG tablet 2.5 mg PO SUTUTHSA RF: 0 Held lisinopril 20 mg tablet 20 mg PO DAILY RF: 0 Hold Instructions: Resume on 03/05/21. Hold until follow-up with nephrology. Discontinued furosemide 40 mg tablet 40 mg PO DAILY Qty: 30 RF: 11 Referrals / Follow Up: Samuel Baker MD [STAFF PHYSICIAN] - 02/27/21 10:45 am (WILL BE AT THE [facility]ICE.) Howard Escobar DO [Primary Care Provider] - 02/22/21 10:30 am Zina Bray PA [PHYSICIAN SLITTER AND REWINDER MACHINE OPERATOR] - 03/11/21 11:00 am Disposition Disposition (needs filled in before D/C Order can be placed): Home, Self Care Charges/Coding Visit Charges Inpatient E&M: 72252 Disch Hosp
--- NOTE | 2021-02-19 13:42 | NURSING ---
This RN walked pt in [facility]. No signs of bleeding/hematoma or complications to cath sites.
--- NOTE | 2021-02-19 15:22 | CASEMGMT ---
Pt does not qualify for home oxygen per Mouna FLOOD and states no further needs at discharge. Tyrone FLOOD CM
[2021-02-19 15:35] LABS: Bedside Glucose 118 mg/dL (70-110)
--- NOTE | 2021-02-20 14:20 | CASEMGMT ---
ALEENA PONCE Discharge Follow-up Phone Call: VASYLAri: Giacomo Strata: 4 Call Date: 02/20/21 Discharge Date: 02/19/21 Time of Call: 1420 Duration: 5 min Admitting Diagnosis: CHF exacerbation ALEENA PONCE completed follow-up phone call after recent hospitalization. Patient states he is doing about the same. Patient had no questions regarding discharge instructions. Patient was able to fill prescription without any issues and is taking his medications. Patient has follow-up appts scheduled and aware of appt times. Patient had no further questions or concerns at this time.
--- NOTE | 2021-02-21 12:31 | CL.D_ITS ---
Patient Name: ANTWAN GE Study Date: 02/19/2021 Performing: Jairo Turk MD Ht: 64.96 inches 165 cm : 1945 Wt: 178.57 lbs 81 kg Age: 75 Gender: male BSA: 1.88 PROCEDURE(S) PERFORMED [id number]/COR CLINICAL PROFILE AND INDICATIONS Indications: Other Heart Failure: NYHA Class: 3, Newly Diagnosed: Yes, Heart Failure Type: Diastolic Stress/Imaging Stress/Image Study Performed: No CAD Presentations: Symptom unlikely to be ischemic. CONCLUSIONS Non obstructive coronary arteries RECOMMENDATIONS Medical therapy DESCRIPTION OF PROCEDURE The patient arrived to the procedure lab. The risks and benefits of the procedure as well as a full d escription of our services here and current unavailability of surgical backup were fully explained to the patient and/or their significant other prior to the catheterization. The Timeout was completed, verifying the correct patient and procedure. The patient's procedural site was prepped and draped in the usual fashion. Local anesthetic was given subcutaneously to right radial region with Lidocaine 2% . Local anesthetic was given subcutaneously to right groin region with Lidocaine 2%. Using a modified Seldinger technique, arterial access was obtained via the right radial artery, a 6Fr sheath was inse rted., arterial access was obtained via the right femoral artery, a 5Fr sheath was inserted. Right C oronary Artery selective angiography was then performed in multiple views using a 5 Fr. 4.0 [place] cat heter. Left Coronary Artery selective angiography was performed in multiple views using a 5 Fr. JL4 catheter.Contrast was injected through the sheath and the Right Iliac and Femoral artery we re assessed for possible closure device.The arterial sheath was pulled and a Mynx closure device was deployed for hemostasis. The arterial sheath was pulled and a TR Band was applied for hemostasis CORONARY ANGIOGRAPHY DOMINANCE: Right Dominant LEFT HEART ASSESSMENT Left Ventricular Ejection Fraction: by Echo 55 % LEFT MAIN: Angiographically normal LEFT ANTERIOR DESCENDING ARTERY: Mild luminal irregularities less than 30% CIRCUMFLEX ARTERY: Mild luminal irregularities less than 30% RIGHT CORONARY ARTERY: Mild luminal irregularities less than 30% COMPLICATIONS No Complications PROCEDURE MEDICATIONS Fentanyl 50 mcg IV Versed 1 mg IV Versed 1 mg IV Fentanyl 25 mcg IV Fentanyl 25 mcg IV Oxygen: 2 L/min via nasal cannula Heparin given IA 02/19/2021 08:47:59 Verapamil 2.5mg, Ntg 100mcgs, 3000 units of Heparin given IA 02/19/2021 08:47:59 SUMMARY OF HEMODYNAMIC DATA Time AIR REST ECG 08:38:43 AO 126/62 (87) SA 08:54:19 AO 139/74 (100) 09:13:51 Signed By Jairo Turk MD On 02/19/2021 9:26:12 AM Jairo Turk MD
== END 2021-02-19 15:16 | disposition home or self-care (01) | DRG 286 ==
LOC: ED 12:24 → PCU 17:56
PROVIDERS: Hospitalist; Admitting Provider Internal Medicine; Emergency Provider Emergency Medicine; PCP Family Medicine; Visit Provider Internal Medicine
DX: I13.0 Hypertensive heart and chronic kidney disease with heart failure and stage 1 through stage 4 chronic kidney disease, or unspecified chronic kidney disease (principal); I50.43 Acute on chronic combined systolic (congestive) and diastolic (congestive) heart failure; N17.9 Acute kidney failure, unspecified; I48.11 Longstanding persistent atrial fibrillation; R04.2 Hemoptysis; I42.8 Other cardiomyopathies; I42.2 Other hypertrophic cardiomyopathy; E11.22 Type 2 diabetes mellitus with diabetic chronic kidney disease; N18.32 Chronic kidney disease, stage 3b; E78.5 Hyperlipidemia, unspecified; E66.9 Obesity, unspecified; G47.33 Obstructive sleep apnea (adult) (pediatric); N40.0 Benign prostatic hyperplasia without lower urinary tract symptoms; I44.7 Left bundle-branch block, unspecified; I49.3 Ventricular premature depolarization; I25.10 Atherosclerotic heart disease of native coronary artery without angina pectoris; I27.21 Secondary pulmonary arterial hypertension; K59.00 Constipation, unspecified; Z68.31 Body mass index [BMI] 31.0-31.9, adult; Z79.01 Long term (current) use of anticoagulants; Z79.84 Long term (current) use of oral hypoglycemic drugs; Z79.899 Other long term (current) drug therapy; Z87.891 Personal history of nicotine dependence; Z87.01 Personal history of pneumonia (recurrent); Z87.19 Personal history of other diseases of the digestive system
CPT/HCPCS: 36415; 71045; 80048; 80053; 80061; 80069; 82962; 83605; 83735; 83880; 84439; 84443; 84484; 85025; 85610; 87040; 87426; 93005; 93454; 97161; 97165; 99152; 99153; 99285; C1760; J7030; Q9967; A4216; C1769; C1894; J1940

== ENCOUNTER → 2021-03-11 09:54 | Outpatient (CLI) | payer MEDICARE, BC, SELFPAY ==
[2021-02-16 13:31] VITALS: BMI 31.3
--- NOTE | 2021-03-11 09:56 | US_ITS ---
STUDY: RENAL ULTRASOUND - COMPLETE REASON FOR EXAM: Male, 75 years old. CKD STAGE 3B TECHNIQUE: Ultrasound evaluation of the kidneys was performed with real-time and static yadav-scale imaging. COMPARISON: None. FINDINGS: RIGHT KIDNEY: with mild renal atrophy. The right kidney measures 8.5 cm x 4.3 cm x 3.7 cm. There is diffuse thinning of the renal cortex. The renal cortex measures 9 cm. There is no right renal mass or cyst. There are no right renal calculi. There is no right hydronephrosis. DISTAL RIGHT URETER: There is non-visualization of the distal right ureter. There is no demonstrated right ureterovesical junction calculus. There is no demonstrated right ureteral jet. LEFT KIDNEY: Normal location of the left kidney, which is normal in size. The left kidney measures 11.5 cm x 4 cm x 5.8 cm. There is a normal cortex of the left kidney. The renal cortex measures 1.5 cm. There is no left renal mass or cyst. There are no left renal calculi. There is no left hydronephrosis. DISTAL LEFT URETER: There is non-visualization of the distal left ureter. There is no demonstrated left ureterovesical junction calculus. There is no demonstrated left ureteral jet. BLADDER: The distended urinary bladder has a volume of 52 ml. There is a normal wall thickness of the distended urinary bladder. There is no demonstrated mass within the urinary bladder. There are no demonstrated bladder calculi. US/Kidney and Bladder IMPRESSION: Mild atrophy of the right kidney. Electronically Signed: Joel Fuentes MD at 14:55 EDT , Service support ,
== END ==
PROVIDERS: PCP Family Medicine; Referring Provider Nurse Practitioner Adult Health; Visit Provider Nurse Practitioner Adult Health
DX: N18.32 Chronic kidney disease, stage 3b (principal)
CPT/HCPCS: 76770

== ENCOUNTER → 2021-03-12 10:05 | Outpatient (CLI) | payer MEDICARE, BC, SELFPAY ==
[2021-03-11 11:15] VITALS: BMI 30.6
--- NOTE | 2021-03-12 10:07 | EKG12_ITS ---
Test Reason : ROUTINE Blood Pressure : / mmHG Vent. Rate : 060 BPM Atrial Rate : 060 BPM P-R Int : 000 ms QRS Dur : 146 ms QT Int : 442 ms P-R-T Axes : 000 010 194 degrees QTc Int : 442 ms Atrial fibrillation Left bundle branch block Abnormal ECG Confirmed by ABDI STONER, CHANI ([id number]), editor continuity and script VIOLETA VILLALBA ([id number]) on 03/13/2021 11:52:21 AM Referred By: Zina Bray Confirmed By:CHANI PATTON MD
[2021-03-12 12:30] LABS: Absolute Lymphocyte Count 1.38 X10^3/uL (0.83-4.51); Absolute Neutrophil Count 6.3 X10^3/uL (2.0-7.7); Basophil# 0.05 X10^3/uL; Basophil% 0.6 % (0-1); Eosinophil# 0.12 X10^3/uL; Eosinophils% 1.4 % (0-5); Hematocrit 40.7 % (40-54); Hemoglobin 13.3 g/dL (13.0-16.5); Lymphocyte # 1.38 X10^3/ul (0.83-4.51); Lymphocyte % 16.3 % (19-41); Mean Corp Hgb Conc 32.7 g/dL (32-36); Mean Corpuscular Volume 88.7 fL (80-94); Mean Platelet Vol. 11.8 fl (6.2-12.0); Monocyte# 0.59 X10^3/uL; NRBC Flagged by Analyzer 0 % (0-5); Neutrophil # 6.28 X10^3/uL (2.7-7.7); Neutrophil % 74.1 % (47-70); Platelet Count 269 K/mm3 (150-450); RBC Distribution Width SD 45.3 fl (35.1-43.9); Red Blood Count 4.59 M/mm3 (4.6-6.2); White Blood Count 8.5 K/mm3 (4.4-11.0)
[2021-03-12 12:58] LABS: Anion Gap 3 (5-15); BUN 38 mg/dL (7-18); BUN/Creat Ratio 22.9 RATIO (10-20); Chloride 104 mmol/L (98-107); Creatinine, Serum 1.66 mg/dL (0.70-1.30); EST Glomerular Filtration Rate 43 mL/min (>60); Est Glom Filt Rate - Afr Amer 52 mL/min (>60); Glucose 139 mg/dL (74-106); Potassium 4.1 mmol/L (3.5-5.1); Sodium Level 138 mmol/L (136-145)
== END ==
PROVIDERS: PCP Family Medicine; Referring Provider Physician Assistant Medical; Visit Provider Physician Assistant Medical
DX: I42.8 Other cardiomyopathies (principal); I48.11 Longstanding persistent atrial fibrillation; R00.1 Bradycardia, unspecified; R06.00 Dyspnea, unspecified; I25.10 Atherosclerotic heart disease of native coronary artery without angina pectoris; I50.43 Acute on chronic combined systolic (congestive) and diastolic (congestive) heart failure; R06.02 Shortness of breath; I42.2 Other hypertrophic cardiomyopathy; E78.5 Hyperlipidemia, unspecified
CPT/HCPCS: 36415; 80048; 85025; 93005; 93225; 93226

== ENCOUNTER 2021-03-25 10:49 | Day surgery (SDC) | payer MEDICARE, BC, SELFPAY ==
[2021-03-11 11:15] VITALS: BMI 30.6
[2021-03-22 09:17] VITALS: BMI 30.6
[2021-03-25 11:01] LABS: INR Fingerstick 1.8; Prothrombin Time Fingerstick 20.7 SEC (11.9-14.4)
[2021-03-25 11:36] LABS: Bedside Glucose 131 mg/dL (70-110)
[2021-03-25 13:15] LABS: Blood Gas Specimen Type VEN; VBG BASE EXCESS 1 mmol/L (-1.0-3.5); VBG Bicarbonate 26 mmol/L (22-26); VBG PO2 34 mmHg (25-40); VBG SO2 62 % (50-70); VBG TCO2 28 mmol/L (23-33); VBG pCO2 48.2 mmHg (41-51); VBG pH 7.35 (7.32-7.42)
[2021-03-25 15:45] VITALS: BP 160/87; PULSE 78; RESP 15; TEMP 36.7; O2SAT 100; BMI 30.6
[2021-03-25 16:15] VITALS: BP 155/72; PULSE 76; RESP 14; O2SAT 95
--- NOTE | 2021-03-25 16:48 | CL.D_ITS ---
Patient Name: ANTWAN GE Study Date: 03/25/2021 Performing: Jairo Turk MD Ht: 64.96 inches 165 cm : 1945 Wt: 182.98 lbs 83 kg Age: 75 Gender: male BSA: 1.9 PROCEDURE(S) PERFORMED [id number]-[id number] SENSOR IMPLANT WITH RHC+PA ANGIO CLINICAL PROFILE AND INDICATIONS Indications: Other Heart Failure: NYHA Class: 2, Newly Diagnosed: Yes, Heart Failure Type: Diastolic CONCLUSIONS Successful implantation of a CardioMEMS device RECOMMENDATIONS DESCRIPTION OF PROCEDURE The patient arrived to the procedure lab. The risks and benefits of the procedure as well as a full d escription of our services here and current unavailability of surgical backup were fully explained to the patient and/or their significant other prior to the catheterization. The Timeout was completed, verifying the correct patient and procedure. The patient's procedural site was prepped and draped in the usual fashion. Local anesthetic was given subcutaneously to right groin region with Lidocaine 2%. Local anesthetic was given subcutaneously to left groin region with Lidocaine 2%. Using a modified S eldinger technique, Venous access was obtained via the right femoral vein, a 11Fr sheath was inserte d. Venous access was obtained via the left femoral vein, a 7Fr sheath was inserted. A 7Fr thermal dil ution catheter was inserted and right heart pressures were recorded, it was then advanced to PA posit ion for cardiac outputs. Thermal dilution cardiac outputs were then recorded. O2 saturations were then obtained. A 7Fr thermal dilution catheter was inserted it was then advanced to PA position..Temporary Pacemaker was inserted into the right femoral vein and advanced to the RV apex , settings were placed at a rate of 40 ppm , 3 mA , demand mode, temporary pacemaker removed ^FreeTex t^, Immediate CPR was started, patient was given intravenous atropine and a temporary pacemaker wire was placed in the right ventricle. It was set at a rate of 40 bpm and waited for a period of approxi mately 5 minutes., The patient was noted to regain consciousness and was doing well and after extensi ve discussion it was determined to proceed with the procedure again this time putting the temporary p acemaker through the left femoral vein, The temporary pacemaker was positioned in the IVC and the pro cedure was repeated with a [place]-Otis catheter passed into the left pulmonary artery with the 0.018 wi re and a repeat angiogram being performed. The CardioMEMS device was then successfully deployed in good position. The device was then interrogated and programmed by the device representat [place]., The temporary pacemaker wire was removed and hemostasis achieved in the right femoral vein as w ell as the left femoral vein.The venous sheaths both were then pulled and manual compression applied until hemostasis achieved CORONARY ANGIOGRAPHY RIGHT HEART ASSESSMENT Thermal CO: 3.63 Thermal CI: 1.91 PW: 16 PA: 5420 33 RV: 52/2 8 RA: 06/12 10 PVR: 375 COMPLICATIONS No Complications PROCEDURE MEDICATIONS Versed 1 mg IV Versed 1 mg IV Versed 1 mg IV Versed 1 mg IV Atropine 1mg/10ml 1 amp @ 03/25/2021 13:32:31 SUMMARY OF HEMODYNAMIC DATA Time AIR REST ECG 11:27:38 RA 06/12 (10) SV 12:57:30 RV 52/2, 8 12:58:04 PW (16) PV 13:02:07 PA 54/20 (33) PA 13:02:40 ECG 13:54:49 Type SV CO (l/m) CI (l/m/ HR Time AIR REST Thermal 56.70 3.63 1.91 64 11:27:38 Label % O2 Pres/Loc Time AIR REST PA 61 PA 13:13:52 Signed By Jairo Turk MD On 03/25/2021 16:46:35 Jairo Turk MD
[2021-03-25] MEDS: Furosemide 40 MG Tablet PO (17:19)
[2021-03-25 17:33] VITALS: PULSE 78
[2021-03-25 21:45] VITALS: BP 150/79; PULSE 88; RESP 18; TEMP 36.7; O2SAT 99
[2021-03-25 23:00] VITALS: PULSE 70
[2021-03-26 03:00] VITALS: PULSE 56
[2021-03-26 03:45] VITALS: BP 109/52; PULSE 67; RESP 18; TEMP 36.6; O2SAT 95
[2021-03-26 07:00] VITALS: PULSE 60
--- NOTE | 2021-03-26 07:46 | PCM.PN.CARD ---
Subjective Subjective Patient seen and evaluated. Appears to be doing well. Objective Data Vital Signs: Vital Signs Temp Pulse Resp BP Pulse Ox 97.9 F 67 18 109/52 L 95 03/26/21 03:45 03/26/21 03:45 03/26/21 03:45 03/26/21 03:45 03/26/21 03:45 Oxygen Flow Rate (L/min) 2 Oxygen Delivery Method Room Air Weight: 184 lb 1.6 oz Body Mass Index (BMI) 30.6 Intake & Output: Intake and Output for Last 24 Hours 03/24/21 03/25/21 03/26/21 23:59 23:59 23:59 Intake Total 360 / 360 120 / 120 Output Total 850 / 850 250 / 250 Balance -490 / -490 -130 / -130 Lab / Micro Data Labs: Laboratory Results - last 24 hr 03/25/21 10:56: POC PT 20.7 H, INR 1.8 03/25/21 11:21: POC Glucose 131 H ABG Data ABG results: ABG 03/25/21 13:11 Specimen Type GLORIA VBG pH 7.35 VBG pO2 34 VBG HCO3 26 VBG Total CO2 28 VBG O2 Sat (Calc) 62 VBG Base Excess 1 POC Mix VBG pCO2 Pt Tmp 48.2 Cardiology Labs/Tests 03/25/21 10:56: INR 1.8 03/25/21 13:11: VBG pH 7.35, VBG pO2 34, VBG HCO3 26, VBG O2 Sat (Calc) 62, VBG Base Excess 1 Rhythm: EKG: ECHO: Stress Test: Cardiac Cath: PCI: CT Surgery: Holter monitor: EPS: PPM: CXR: Chest CT Scan: Physical Exam Const oriented x3 and healthy appearing Orientation / Consciousness: awake HEENT normocephalic Eyes PERRL and conjunctivae normal Neck supple, no JVD and no carotid bruits Chest inspection of chest normal Resp normal respiratory effort and clear to auscultation bilaterally Cardio Palpation: normal PMI Rate: regular rate Rhythm: regular rhythm Heart Sounds: S1 normal and S2 normal Peripheral Pulses: pulses 2+ throughout GI normal to inspection, nondistended, normoactive bowel sounds Extremity normal to inspection and no clubbing, cyanosis or edema Psych mental status grossly normal Assessment & Plan Assessment/Plan (1) Presence of implantable pulmonary artery pressure and heart rate monitoring system: PLAN: Patient is status post implantable cardio mems procedure. Patient is doing well will be discharged for outpatient follow-up.
--- NOTE | 2021-03-26 07:53 | PCM.DC ---
Discharge Instructions Diet Discharge Diet: Low fat / Low cholesterol Activity Discharge Activity: May Not Drive Dressing / Incision Change Dressing in: 2 days Follow Up Care Test Results: Test results from this visit will be discussed in further detail at your follow-up appointment, if applicable. Discharge Plan Admission Attending Provider: Jairo Turk Primary Care Provider: Howard Escobar Discharge Orders/Prescriptions Prescriptions: Continued finasteride 5 mg tablet 5 mg PO DAILY RF: 0 lisinopril 20 mg tablet 20 mg PO DAILY RF: 0 Hold Instructions: Resume on 03/05/21. Hold until follow-up with nephrology. glimepiride 1 mg tablet 1 mg PO DAILY RF: 0 cyanocobalamin (vitamin B-12) 1,000 MCG/ML solution 1,000 mcg IM Q30D RF: 0 warfarin 5 mg tablet 5 mg PO MOWEFR RF: 0 warfarin 2.5 mg tablet 2.5 mg PO SUTUTHSA RF: 0 furosemide [Lasix] 40 mg tablet 40 mg PO BID Qty: 60 RF: 0 Changed carvedilol 12.5 mg tablet 6.25 mg PO BID Qty: 60 RF: 3 Referrals / Follow Up: Howard Escobar DO [Primary Care Provider] - Disposition Disposition (needs filled in before D/C Order can be placed): Home, Self Care
[2021-03-26 08:25] VITALS: BP 104/60; PULSE 70; RESP 14; TEMP 36.8; O2SAT 100
[2021-03-26] MEDS: Glimepiride 1 MG Tablet PO (08:28)
[2021-03-26] MEDS: Furosemide 40 MG Tablet PO (08:28)
[2021-03-26] MEDS: Lisinopril 20 MG Tablet PO (08:28)
[2021-03-26] MEDS: Finasteride 5 MG Tablet PO (08:29)
== END 2021-03-26 07:52 | disposition home or self-care (01) ==
LOC: CLSP 10:50 → PCU 03-26 07:53
PROVIDERS: PCP Family Medicine; Referring Provider Internal Medicine Cardiovascular Disease; Visit Provider Internal Medicine Cardiovascular Disease
DX: I13.0 Hypertensive heart and chronic kidney disease with heart failure and stage 1 through stage 4 chronic kidney disease, or unspecified chronic kidney disease (principal); E11.22 Type 2 diabetes mellitus with diabetic chronic kidney disease; I50.43 Acute on chronic combined systolic (congestive) and diastolic (congestive) heart failure; N18.32 Chronic kidney disease, stage 3b; D63.1 Anemia in chronic kidney disease; I42.2 Other hypertrophic cardiomyopathy; E78.5 Hyperlipidemia, unspecified; I48.19 Other persistent atrial fibrillation; N40.0 Benign prostatic hyperplasia without lower urinary tract symptoms; E66.9 Obesity, unspecified; Z68.30 Body mass index [BMI] 30.0-30.9, adult; I27.21 Secondary pulmonary arterial hypertension; G47.33 Obstructive sleep apnea (adult) (pediatric); Z87.01 Personal history of pneumonia (recurrent); Z79.01 Long term (current) use of anticoagulants; Z79.899 Other long term (current) drug therapy; Z87.891 Personal history of nicotine dependence
CPT/HCPCS: 33289; 36416; 82803; 82962; 85610; 99152; 99153; C1769; C2624; J7040; Q9967; A4216; C1751; C1894

== ENCOUNTER → 2021-06-04 09:22 | Outpatient (CLI) | payer MEDICARE, BC, SELFPAY ==
[2021-06-04 10:07] LABS: Hemoglobin 13.6 g/dL (13.0-16.5); Mean Corp Hgb Conc 33.2 g/dL (32-36); Mean Corpuscular Volume 90.5 fL (80-94); Platelet Count 195 K/mm3 (150-450); RBC Distribution Width CV 14.2 % (11.6-14.6); RBC Distribution Width SD 47.1 fl (35.1-43.9); Red Blood Count 4.53 M/mm3 (4.6-6.2); White Blood Count 8.1 K/mm3 (4.4-11.0)
[2021-06-04 10:16] LABS: International Normalized Ratio 3.3; Prothrombin Time (Protime)PT. 32.6 SECONDS (11.7-14.9)
[2021-06-04 10:17] LABS: Protein, Urine (Random) 22.8 mg/dL (<11.9); Protein:Creat Ratio 230 mg/g CRE (0-200)
[2021-06-04 10:38] LABS: Vitamin D,25 Hydroxy 19.2 ng/mL
[2021-06-04 10:52] LABS: Albumin, Serum 3.2 g/dL (3.2-5.0); BUN 50 mg/dL (7-18); BUN/Creat Ratio 24.3 RATIO (10-20); Calcium,Total 9.1 mg/dL (8.5-10.1); Chloride 100 mmol/L (98-107); Creatinine, Serum 2.06 mg/dL (0.70-1.30); EST Glomerular Filtration Rate 33 mL/min (>60); Est Glom Filt Rate - Afr Amer 40 mL/min (>60); Glucose 211 mg/dL (74-106); Phosphorus 3.2 mg/dL (2.5-4.9); Potassium 4.1 mmol/L (3.5-5.1); Sodium Level 138 mmol/L (136-145)
== END ==
PROVIDERS: PCP Family Medicine; Referring Provider Nurse Practitioner Adult Health; Visit Provider Nurse Practitioner Adult Health
DX: N18.32 Chronic kidney disease, stage 3b (principal); I48.0 Paroxysmal atrial fibrillation
CPT/HCPCS: 36415; 80069; 82306; 82570; 83970; 84156; 85027; 85610

== ENCOUNTER 2021-07-25 07:16 | Inpatient (IN) | payer MEDICARE, BC, SELFPAY ==
[2021-07-25] VITALS (32 sets, daily range): BP systolic 85–148; BP diastolic 48–88; PULSE 61–128; RESP 12–38; TEMP 36.4–37.4; O2SAT 55–100; BMI 31.3; BMI 30.4
--- NOTE | 2021-07-25 07:20 | EKG12_ITS ---
Test Reason : SOB Blood Pressure : / mmHG Vent. Rate : 122 BPM Atrial Rate : 087 BPM P-R Int : 000 ms QRS Dur : 146 ms QT Int : 354 ms P-R-T Axes : 000 024 176 degrees QTc Int : 504 ms Atrial fibrillation Left bundle branch block Abnormal ECG Confirmed by FUENTES DEGROOT MD ([id number]), map editor VIOLETA VILLALBA ([id number]) on 07/26/2021 11:44:36 AM Referred By: Confirmed By:FUENTES DEGROOT MD
--- NOTE | 2021-07-25 07:28 | RAD_ITS ---
STUDY: X-RAY CHEST REASON FOR EXAM: Male, 76 years old. dyspnea TECHNIQUE: Single AP portable view of the chest. COMPARISON: 02/16/2021 FINDINGS: There are superimposed monitor leads. There are bilateral interstitial markings, areas of hyperinflation seen to a similar degree on most recent exam. There is no focal parenchymal abnormality. There is no demonstrated pleural abnormality. There is mild cardiac enlargement. Prior sternotomy. Normal mediastinum and gricelda. Normal visualized pulmonary arteries. Normal visualized aortic arch and descending thoracic aorta. The spine and upper abdominal soft tissues are obscured. RAD/Chest 1 View (Portable) IMPRESSION: Possible mild vascular congestion/interstitial edema. Stable cardiac enlargement and postsurgical changes. Electronically Signed: Pamela Montero MD at 8:18 EST , Service support ,
--- NOTE | 2021-07-25 07:31 | ED.VIS.DYS ---
HPI History of Present Illness Chief Complaint: Shortness of Breath Informant: patient and spouse/S.O. Narrative Narrative: 76-year-old male presenting to the emergency department with acute onset of shortness of breath. 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 Patient notes that he has had a couple admissions this year for congestive heart failure but has been doing really well the past several months. He has a CardioMEMS device and follows locally with the heart group. Patient states that he felt fine when he went to bed last night. This morning he felt very cold and asked his for a blanket when she came back he was noticeably short of breath and stated that he needed to go to the hospital. He denies any recent fevers. He does not wear home oxygen but he does wear CPAP at night for KIMBERLY. Nursing notes he is about 51% with a good waveform on room air. [facility] Medical History Acute kidney injury Acute on chronic combined systolic (congestive) and diastolic (congestive) heart failure Acute urinary retention Anemia due to stage 3b chronic kidney disease Back pain BPH (benign prostatic hyperplasia) Chronic combined systolic and diastolic CHF (congestive heart failure) Congestive heart failure (CHF) Constipation CPAP (continuous positive airway pressure) dependence Diabetes Diabetes Elevated troponin (01/2021) Essential (primary) hypertension History of tobacco use HLD (hyperlipidemia) Hypertrophic cardiomyopathy Left bundle branch block Leucocytosis Longstanding persistent atrial fibrillation 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 Obesity Obesity (BMI 30.0-34.9) KIMBERLY (obstructive sleep apnea) Pneumonia Presence of implantable pulmonary artery pressure and heart rate monitoring system (03/25/21) Renal infarct Secondary pulmonary arterial hypertension Sleep apnea Umbilical hernia Home Medications cyanocobalamin (vitamin B-12) 1,000 mcg IM Q30D 06/08/16 [History Last Taken 01/29/19] finasteride 5 mg tablet 5 mg PO DAILY tablet 12/19/20 [History Last Taken 12/22/20] glimepiride 1 mg tablet 1 mg PO DAILY tab 02/13/21 [History Last Taken Unknown] lisinopril 20 mg tablet 20 mg PO DAILY tab 03/11/21 [History Last Taken Unknown] warfarin 2.5 mg tablet 2.5 mg PO SUTUTHSA 03/11/21 [History Last Taken Unknown] warfarin 5 mg tablet 5 mg PO MOWEFR 03/11/21 [History Last Taken Unknown] furosemide 40 mg tablet 40 mg PO BID #180 tab 03/26/21 [Rx Last Taken Unknown] carvedilol 6.25 mg tablet 12.5 mg PO Q12H tab 05/24/21 [History Last Taken Unknown] cholecalciferol (vitamin D3) [Vitamin D3] 25 mcg PO DAILY 07/25/21 [History Last Taken Unknown] Allergy/AdvReac Type Severity Reaction Status Date / Time rivaroxaban [From Xarelto] Allergy Bleeding Verified 07/25/21 07:22 metoprolol AdvReac bradycardia Verified 07/25/21 07:22 Family History Father Heart disease Sister Heart disease Brother Heart disease Other Arthritis CVA (cerebral vascular accident) Depression Mental disorder Surgical History History of appendectomy History of left heart catheterization (02/19/21) History of transurethral resection of prostate (01/2019) History of ventricular septal myectomy (2000) Hx of umbilical hernia repair Social History Smoking Status: Former smoker how long ago did patient quit smokin years ago 0.25ppd second hand exposure: Yes alcohol intake: never caffeine: Yes Type: coffee Number of servings: 1 what type of physical activity do you participate in: other details: treadmill frequency: daily ROS ROS ED Constitutional Constitutional ED: Denies chills or weight loss Eyes Eyes: Denies change in vision or diplopia ENT ENT ED: Denies ear pain, rhinorrhea or sore throat Cardiovascular Cardiovascular: Denies chest pain, orthopnea, palpitations or racing heartbeat Respiratory/Chest Respiratory/Chest: Reports dyspnea and dyspnea on exertion; Denies cough or orthopnea Gastrointestinal Gastrointestinal: Denies abdominal pain, diarrhea, nausea or vomiting Genitourinary Genitourinary ED: Denies dysuria, hematuria or urinary frequency Musculoskeletal Musculoskeletal: Denies arthralgias or myalgias Integumentary Denies abscess or rash Neurologic Neurologic: Denies headache(s) or weakness Psychiatric Psychiatric: Denies anxiety, depression, suicidal ideation or suicidal thoughts Endocrine Endocrinology: Denies polydipsia, polyphagia or polyuria Allergic/Immunologic Allergic/Immunologic ED: Denies mouth swelling, tongue swelling or urticaria EXAM Physical Exam Narrative Exam Narrative: Patient is in acute respiratory distress Const Vital Signs: 07/25/21 07:16 07/25/21 07:17 07/25/21 07:24 Temperature 98.0 F Temperature Source Oral Pulse Rate 128 H 115 H Respiratory Rate 38 H 38 H Respiratory Effort Respiratory Pattern Tachypnea Blood Pressure 104/62 Blood Pressure Mean 76 Pulse Ox 98 55 94 Oxygen Delivery Method Room Air Non-Rebreather Fraction of Inspired Oxygen (FIO2) 30 07/25/21 07:42 07/25/21 07:49 07/25/21 07:50 Temperature Temperature Source Pulse Rate 127 H Respiratory Rate 38 H Respiratory Effort Accessory Muscle Use Pursed Lip Respiratory Pattern Tachypnea Blood Pressure 106/78 Blood Pressure Mean 87 Pulse Ox 96 90 Oxygen Delivery Method Bi-pap Bi-pap Fraction of Inspired Oxygen (FIO2) 40 07/25/21 08:28 07/25/21 08:40 07/25/21 09:08 Temperature Temperature Source Pulse Rate 106 H 116 H 107 H Respiratory Rate 28 H 28 H 32 H Respiratory Effort Respiratory Pattern Blood Pressure 104/88 H 106/74 Blood Pressure Mean 93 84 Pulse Ox 96 96 99 Oxygen Delivery Method Room Air Non-Rebreather Bi-pap Fraction of Inspired Oxygen (FIO2) 07/25/21 09:09 07/25/21 09:20 07/25/21 09:30 Temperature 97.8 F Temperature Source Temporal Pulse Rate 101 H 94 90 Respiratory Rate 28 H 36 H 26 H Respiratory Effort Respiratory Pattern Tachypnea Blood Pressure 106/74 Blood Pressure Mean 84 Pulse Ox 100 95 99 Oxygen Delivery Method Bi-pap Bi-pap Fraction of Inspired Oxygen (FIO2) 35 Positive well nourished and well developed General Appearance ED: well developed HEENT Reports normocephalic, head/scalp atraumatic, TM's clear and moist mucous membranes atraumatic Tympanic Membrane ED: Yes TM's clear Eyes PERRL and EOMs intact bilaterally Neck no lymphadenopathy, supple and no JVD Resp Resp Narrative: Patient with significant increased work of breathing/respiratory distress Auscultation: rales and diminished lung sounds Cardio no murmurs Rate: tachycardic Rhythm: abnormal rhythm irregularly irregular GI normal to inspection, nondistended, normoactive bowel sounds and non-tender Palpation: soft Back/Spine no CVA tenderness and normal ROM Extremity Extremity Narrative: 2+ pitting edema to the lower extremities General Extremety ED: Yes edema; Negative for tenderness General Extremity: edema Neuro oriented x3 and CN's II-XII intact bilaterally Sensorium / Orientation: alert Motor Exam: strength 5/5 throughout Psych mental status grossly normal Mood & Affect: Negative for depressed or tearful Skin no rashes or lesions noted and no wounds Rashes: no rashes MDM MDM MDM Narrative Medical decision making narrative: My interpretation of the chest x-ray is mild pulmonary edema. Patient's white count returns at 23.2. INR 2.3. Lactic acid is elevated at 5.7. Beta natruretic peptide is 372. Because of his significantly high white count and his cardiomegaly on his chest x-ray is concerned about potentially missing a retrocardiac finding. CTA of the chest was obtained does not demonstrate any pulmonary embolism or infiltrate but does note pulmonary vascular congestion. Patient received 80 mg of Lasix in addition to BiPAP therapy and he so far has diuresed about 1 L. I will speak with the hospitalist regarding admission Lab Data Attestation: I reviewed the patient's lab results. Labs: Laboratory Results - last 24 hr 07/25/21 07/25/21 07/25/21 07:20 07:20 07:20 WBC 23.2 H RBC 4.47 L Hgb 13.2 Hct 40.3 MCV 90.2 MCH 29.5 MCHC 32.8 RDW Std Deviation 44.7 H RDW Coeff of Kiersten 13.5 Plt Count 387 MPV 10.8 Immature Gran % (Auto) 1.200 H Neut % (Auto) 81.8 H Lymph % (Auto) 8.7 L [place] % (Auto) 6.8 Eos % (Auto) 1.0 Baso % (Auto) 0.5 Absolute Neuts (auto) 19.0 H Absolute Lymphs (auto) 2.02 Nucleated RBC % 0 Diff Path Review May foll PT 24.3 H INR 2.3 APTT 36.8 H Sodium 136 Potassium 3.4 L Chloride 99 Carbon Dioxide 23.0 Anion Gap 14 BUN 41 H Creatinine 1.89 H Estim Creat Clear Calc 28.02 Est GFR (MDRD) Af Amer 45 L Est GFR (MDRD) Non-Af 37 L BUN/Creatinine Ratio 21.7 H Glucose 231 H Lactic Acid Calcium 9.3 Total Bilirubin 1.40 H AST 22 ALT 50 Alkaline Phosphatase 102 Troponin I High Sens 99 H B-Natriuretic Peptide Total Protein 8.1 Albumin 2.9 L Globulin 5.2 H Albumin/Globulin Ratio 0.6 L 07/25/21 07/25/21 07:20 07:20 WBC RBC Hgb Hct MCV MCH MCHC RDW Std Deviation RDW Coeff of Kiersten Plt Count MPV Immature Gran % (Auto) Neut % (Auto) Lymph % (Auto) [place] % (Auto) Eos % (Auto) Baso % (Auto) Absolute Neuts (auto) Absolute Lymphs (auto) Nucleated RBC % Diff Path Review PT INR APTT Sodium Potassium Chloride Carbon Dioxide Anion Gap BUN Creatinine Estim Creat Clear Calc Est GFR (MDRD) Af Amer Est GFR (MDRD) Non-Af BUN/Creatinine Ratio Glucose Lactic Acid 5.7 H* Calcium Total Bilirubin AST ALT Alkaline Phosphatase Troponin I High Sens B-Natriuretic Peptide 372.0 H Total Protein Albumin Globulin Albumin/Globulin Ratio Radiography Diagnostic Testing: Clinical Impression(s) from Imaging Studies Chest X-Ray 07/25/21 07:28 IMPRESSION: Possible mild vascular congestion/interstitial edema. Stable cardiac enlargement and postsurgical changes. Electronically Signed: Pamela Montero MD at 8:18 EST , Service support , Chest CTA 07/25/21 08:30 IMPRESSION: No demonstrated pulmonary embolism, aneurysm, or arterial dissection. Increased interstitial edema and bilateral airspace disease since previous examination. There is increased mediastinal and decreased right hilar lymph node size since previous exam, findings are concerning for bilateral infiltrates. Component of vascular congestion likely superimposed. Stable small bilateral pleural effusion, cardiac enlargement, postsurgical changes of osteopenia, kyphosis. Electronically Signed: Pamela Montero MD at 9:36 EST , Service support , EKG Initial EKG: Attestation: I personally reviewed and interpreted this EKG as follows: Comments: Atrial fibrillation with left bundle branch block with a ventricular rate of 122 Critical Care Time Critical Care Time: Yes Critical care time (excluding procedures): 30-74 minutes (32 min), Including time spent:, Discussing w/Patient &/or Family/Picture Framer, Discussing w/Consultants, Arranging Admission or Transfer and Performing Direct Patient Care at Bedside Discharge Plan Dx/Rx/DC Orders Clinical Impression: Acute on chronic combined systolic (congestive) and diastolic (congestive) heart failure, Acute hypoxemic respiratory failure Disposition Disposition: Acute Care [facility]
[2021-07-25] MEDS: Furosemide 100 MG/10 ML Vial 80 MG IV (07:32)
[2021-07-25 07:33] LABS: Absolute Lymphocyte Count 2.02 X10^3/uL (0.83-4.51); Basophil# 0.11 X10^3/uL; Basophil% 0.5 % (0-1); Eosinophil# 0.23 X10^3/uL; Hematocrit 40.3 % (40-54); Hemoglobin 13.2 g/dL (13.0-16.5); Lymphocyte # 2.02 X10^3/ul (0.83-4.51); Lymphocyte % 8.7 % (19-41); Mean Corp Hgb Conc 32.8 g/dL (32-36); Mean Corpuscular Hgb 29.5 pg (27.0-32.0); Mean Corpuscular Volume 90.2 fL (80-94); Mean Platelet Vol. 10.8 fl (6.2-12.0); Monocyte# 1.58 X10^3/uL; Monocyte% 6.8 % (0-10); NRBC Flagged by Analyzer 0 % (0-5); Neutrophil # 18.95 X10^3/uL (2.7-7.7); Neutrophil % 81.8 % (47-70); POSITIVE DIFFERENTIAL YES; Platelet Count 387 K/mm3 (150-450); RBC Distribution Width CV 13.5 % (11.6-14.6); RBC Distribution Width SD 44.7 fl (35.1-43.9); Red Blood Count 4.47 M/mm3 (4.6-6.2); White Blood Count 23.2 K/mm3 (4.4-11.0)
[2021-07-25 07:36] LABS: Differential Indicated SCAN CRITERIA MET
[2021-07-25 08:01] LABS: ALB/GLOB Ratio 0.6 RATIO (0.9-2.4); AST(SGOT) 22 U/L (15-37); Alanine Aminotransfer ALT/SGPT 50 U/L (16-61); Albumin, Serum 2.9 g/dL (3.2-5.0); Alkaline Phosphatase 102 U/L (45-117); Anion Gap 14 (5-15); BUN 41 mg/dL (7-18); BUN/Creat Ratio 21.7 RATIO (10-20); Calcium,Total 9.3 mg/dL (8.5-10.1); Chloride 99 mmol/L (98-107); Creatinine, Serum 1.89 mg/dL (0.70-1.30); EST Glomerular Filtration Rate 37 mL/min (>60); Est Glom Filt Rate - Afr Amer 45 mL/min (>60); Estimated Creatinine Clearance 28.02 ml/min; Globulin 5.2 g/dL (2.2-4.2); Glucose 231 mg/dL (74-106); Potassium 3.4 mmol/L (3.5-5.1); Protein, Total 8.1 g/dL (6.4-8.2); Sodium Level 136 mmol/L (136-145); Troponin-I HS 99 pg/mL (3.0-78.0)
[2021-07-25 08:12] LABS: Lactic Acid 5.7 mmol/L (0.4-1.9)
[2021-07-25 08:15] LABS: International Normalized Ratio 2.3; Prothrombin Time (Protime)PT. 24.3 SECONDS (11.7-14.9)
[2021-07-25 08:16] LABS: Partial Thromboplast Time 36.8 Seconds (24.1-36.2)
--- NOTE | 2021-07-25 08:30 | CT_ITS ---
STUDY: CTA CHEST REASON FOR EXAM: Male, 76 years old. hypoxemia RADIATION DOSAGE (If Supplied By Facility): CTDIvol = ( 13.85 ) mGy, DLP = ( 501.01 ) mGycm TECHNIQUE: The examination was performed with the intravenous administration of IV 100mL Isovue-370. Post-processing of the angiographic images was performed, with multiplanar reformation and 3D reconstruction. There is image blurring as a result of cardiac motion. Diagnostic accuracy is somewhat reduced. However, there is substantial diagnostic information remaining available on this study. Individualized dose optimization techniques were used for this CT. COMPARISON: Portable chest x-ray 07/25/2021. Prior CT abdomen not available for direct visual comparison but requested. If and when they become available an addendum will be generated. FINDINGS: Normal enhancement of the main pulmonary artery and right and left pulmonary arteries. Normal enhancement of the bilateral peripheral pulmonary arteries. There is no demonstrated pulmonary embolism. Normal thoracic aorta and visualized great vessels. There is no demonstrated aortic dissection. Sternal cerclage wires and vascular clips are present from a prior sternotomy and coronary artery bypass graft procedure (CABG). There are calcifications of the coronary arteries. There are borderline size to minimally enlarged mediastinal lymph nodes, enlarged right hilar lymph nodes up to 1.5 cm. Normal hilar regions. Normal visualized trachea and bronchi. The lungs are well expanded. Bilateral more homogeneous bilateral hazy opacification, increased interseptal prominence Small stable bilateral pleural effusions.. Normal chest wall structures. Stable kyphosis and osteopenia. The low-attenuation left hepatic lobe. There are splenic granulomata. CT/CTA Chest W/WO Contrast IMPRESSION: No demonstrated pulmonary embolism, aneurysm, or arterial dissection. Increased interstitial edema and bilateral airspace disease since previous examination. There is increased mediastinal and decreased right hilar lymph node size since previous exam, findings are concerning for bilateral infiltrates. Component of vascular congestion likely superimposed. Stable small bilateral pleural effusion, cardiac enlargement, postsurgical changes of osteopenia, kyphosis. Electronically Signed: Pamela Montero MD at 9:36 EST , Service support ,
--- NOTE | 2021-07-25 09:56 | NURSING ---
ICU 6 SIA CHF, ACUTE HYPOXEMIC RESP FAILURE
--- NOTE | 2021-07-25 10:04 | HP.PCM.HOS_ITS ---
HPI - General General Date of Admission: 07/25/21 Date of Service: 07/25/21 Chief Complaint: Shortness of breath HPI Narrative ANTWAN GE, is a 76 M who presented to the emergency department at [facility] on 07/25/2021 with acute onset shortness of breath. The patient reports that he has not actually been feeling well for approximately 7 days or so now. He reports some intermittent chills without fever, intermittent cough, and shortness of breath. He has been vaccinated for COVID-19 with Moderna although he has not had his booster. He has had no infectious exposures of which she is aware. He states his cardio mems device was not working for approximately 5 days and data uptake was not working on a daily basis secondary to Wi-Fi issues. He did say that when it was uploaded the girl at Dr. Corrales's office did state it did not look good although no adjustments have been made at this time. The patient reports this morning he felt very cold and asked his for a blanket and when she came back he was noticeably short of breath and stated he needed to go to the hospital. He is compliant with his home nocturnal CPAP. His oxygen saturation on arrival was 51% on room air. At that time he was placed on BiPAP at 40% and his oxygen saturations improved to the mid 90s. He was tachycardic and afebrile on arrival. His blood pressures have been stable throughout his course. He has been tachypneic with respiratory rates in the 20s to 30s. His CBC showed a marked leukocytosis with a white count of 23.2 and a left shift but was otherwise unremarkable. He does have a neutrophilia. He takes Coumadin at baseline and his INR was 2.3. His CMP shows mild hypokalemia with a potassium of 3.4, and elevated BUN and creatinine which appear to be his baseline, hyperglycemia with a blood sugar of 231, a lactic acidosis with a lactate of 5.7, and bilirubin is elevated at 1.4 but this appears to be chronic as well. A troponin was obtained and found to be 99. His BNP was elevated at 372. A UA was obtained and was unremarkable. His chest x- ray showed vascular congestion and interstitial edema with stable cardiac enlargement and a CTA was obtained that showed no PE but increased interstitial edema and bilateral airspace disease. His rapid Covid test is negative his PCR was pending on admission. [facility] Medical History Anemia due to stage 3b chronic kidney disease Back pain BPH (benign prostatic hyperplasia) Chronic combined systolic and diastolic CHF (congestive heart failure) Constipation CPAP (continuous positive airway pressure) dependence Diabetes Diabetes Elevated troponin (01/2021) Essential (primary) hypertension History of tobacco use HLD (hyperlipidemia) Hypertrophic cardiomyopathy Left bundle branch block Longstanding persistent atrial fibrillation 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 Obesity (BMI 30.0-34.9) KIMBERLY (obstructive sleep apnea) Pneumonia Presence of implantable pulmonary artery pressure and heart rate monitoring system (03/25/21) Renal infarct Secondary pulmonary arterial hypertension Sleep apnea Umbilical hernia Home Medications cyanocobalamin (vitamin B-12) 1,000 mcg IM Q30D 06/08/16 [History Last Taken 01/29/19] finasteride 5 mg tablet 5 mg PO DAILY tablet 12/19/20 [History Last Taken 12/22/20] glimepiride 1 mg tablet 1 mg PO DAILY tab 02/13/21 [History Last Taken Unknown] lisinopril 20 mg tablet 20 mg PO DAILY tab 03/11/21 [History Last Taken Unknown] warfarin 2.5 mg tablet 2.5 mg PO SUTUTHSA 03/11/21 [History Last Taken Unknown] warfarin 5 mg tablet 5 mg PO MOWEFR 03/11/21 [History Last Taken Unknown] furosemide 40 mg tablet 40 mg PO BID #180 tab 03/26/21 [Rx Last Taken Unknown] carvedilol 6.25 mg tablet 12.5 mg PO Q12H tab 05/24/21 [History Last Taken Unknown] cholecalciferol (vitamin D3) [Vitamin D3] 25 mcg PO DAILY 07/25/21 [History Last Taken Unknown] Allergy/AdvReac Type Severity Reaction Status Date / Time rivaroxaban [From Xarelto] Allergy Bleeding Verified 07/25/21 07:22 metoprolol AdvReac bradycardia Verified 07/25/21 07:22 Family History Father Heart disease Sister Heart disease Brother Heart disease Other Arthritis CVA (cerebral vascular accident) Depression Mental disorder Surgical History History of appendectomy History of left heart catheterization (02/19/21) History of transurethral resection of prostate (01/2019) History of ventricular septal myectomy (2000) Hx of umbilical hernia repair Social History Smoking Status: Former smoker how long ago did patient quit smokin years ago 0.25ppd second hand exposure: Yes alcohol intake: never caffeine: Yes Type: coffee Number of servings: 1 what type of physical activity do you participate in: other details: treadmill frequency: daily ROS Constitutional Constitutional: Reports chills, fatigue, malaise and weakness; Denies anorexia, change in weight, fever(s), night sweats or other Eyes Eyes: Denies blurry vision, change in eye color, change in vision, discharge from eye(s), double vision, erythema, eye pain, loss of vision or other ENT HEENT: Denies abnormal hearing, dysphagia, ear pain, epistaxis, headache(s), hearing loss, nasal congestion, nasal discharge, post nasal drip, sinus pressure, sore throat or other Cardiovascular Cardiovascular: Reports dyspnea on exertion and edema; Denies chest pain, claudication, lightheadedness, orthopnea, palpitations, paroxysmal nocturnal dyspnea, rapid heart rate, syncope or other Respiratory/Chest Respiratory/Chest: Reports cough, dyspnea, shortness of breath at rest and shortness of breath with exertion; Denies excessive phlegm production, hemoptysis, productive cough, wheezing or other Gastrointestinal Gastrointestinal: Denies abdominal pain, coffee ground emesis, constipation, diarrhea, dyspepsia, hematemesis, hematochezia, loose stools, melena, nausea, vomiting or other Genitourinary Genitourinary: Denies burning urination, difficulty urinating, dysuria, hem aturia, nocturia, urinary frequency, urinary hesitancy, urinary incontinence, urinary urgency or other Musculoskeletal Musculoskeletal: Denies arthralgias, back pain, joint pain, joint stiffness, joint swelling, myalgias, neck pain or other Neurologic Neurologic: Denies abnormal gait, abnormal speech, confusion, disequilibrium, dizziness, focal weakness, headache(s), numbness, paresthesias, seizure-like activity, seizures, syncope, tingling, tremor(s) or other Psychiatric Psychiatric: Denies anxiety, depression, homicidal ideation, suicidal ideation or other Endocrine Endocrinology: Denies change in body appearance, cold intolerance, excessive sweating, heat intolerance, polydipsia, polyuria or other Hematologic/Lymphatic Hematologic/Lymphatic: Denies anemia, easy bleeding, easy bruising, lymphadenopathy or other Allergic/Immunologic Allergic/Immunologic: Denies rhinitis, hives, eczemia, asthma or other Vital Signs Vital Signs Vital Signs: 07/25/21 07:16 07/25/21 07:17 07/25/21 07:24 Temperature 98.0 F Temperature Source Oral Pulse Rate 128 H 115 H Respiratory Rate 38 H 38 H Respiratory Effort Respiratory Pattern Tachypnea Blood Pressure 104/62 Blood Pressure Mean 76 Pulse Ox 98 55 94 Oxygen Delivery Method Room Air Non-Rebreather Fraction of Inspired Oxygen (FIO2) 30 07/25/21 07:42 07/25/21 07:49 07/25/21 07:50 Temperature Temperature Source Pulse Rate 127 H Respiratory Rate 38 H Respiratory Effort Accessory Muscle Use Pursed Lip Respiratory Pattern Tachypnea Blood Pressure 106/78 Blood Pressure Mean 87 Pulse Ox 96 90 Oxygen Delivery Method Bi-pap Bi-pap Fraction of Inspired Oxygen (FIO2) 40 07/25/21 08:28 07/25/21 08:40 07/25/21 09:08 Temperature Temperature Source Pulse Rate 106 H 116 H 107 H Respiratory Rate 28 H 28 H 32 H Respiratory Effort Respiratory Pattern Blood Pressure 104/88 H 106/74 Blood Pressure Mean 93 84 Pulse Ox 96 96 99 Oxygen Delivery Method Room Air Non-Rebreather Bi-pap Fraction of Inspired Oxygen (FIO2) 07/25/21 09:09 07/25/21 09:20 07/25/21 09:30 Temperature 97.8 F Temperature Source Temporal Pulse Rate 101 H 94 90 Respiratory Rate 28 H 36 H 26 H Respiratory Effort Respiratory Pattern Tachypnea Blood Pressure 106/74 Blood Pressure Mean 84 Pulse Ox 100 95 99 Oxygen Delivery Method Bi-pap Bi-pap Fraction of Inspired Oxygen (FIO2) 35 Weight Weight: 85.4 kg Body Mass Index (BMI) 31.3 Physical Exam Narrative My evaluation took place in the ICU after the patient was transferred from the emergency department Const alert, oriented x3, no apparent distress and well nourished Constitutional Narrative: Overweight white male sitting up in bed on 4 L nasal cannula, at the bedside, appears comfortable and nontoxic General Appearance: cooperative HEENT normocephalic, head/scalp atraumatic, hearing grossly normal bilaterally and moist oral mucous membranes HEENT Narrative: Mallampati is 2-3, no thrush present, dentition is fair Eyes PERRL, EOMs intact bilaterally and conjunctivae normal Eyes Narrative: No scleral icterus Neck no lymphadenopathy, supple and no carotid bruits Neck Narrative: Positive JVD, trachea midline, no thyroid enlargement Resp normal respiratory effort, no retractions and no use of accessory muscles Resp Narrative: Few crackles at bases left greater than right, no signs of respiratory distress at this time Auscultation: crackles; Negative for rhonchi or wheezes Cardio regular rate, regular rhythm, S1 normal heart sound, S2 normal heart sound, no murmurs, no rub, no gallops and no clicks GI normal to inspection, nondistended, normoactive bowel sounds, soft to palpation, non-tender and non-distended Extremity Extremity Narrative: 1+ bilateral lower extremity pitting edema, no cyanosis or clubbing Peripheral Pulses: Yes pulses 2+ throughout Skin no wounds, skin turgor normal, no jaundice, no petechiae and no mottling Skin Narrative: Few scattered ecchymosis but no open lesions Neuro oriented x3, CN's II-XII intact bilaterally, moves all extremities and no focal motor deficits Neuro Narrative: Reflexes 2+, mild generalized weakness, no focal deficit Sensorium / Orientation: awake and alert Psych affect normal Results Lab / Micro Data Attestation: I reviewed the patient's lab results. Result Diagrams: 07/25/21 07:20 07/25/21 07:20 Labs: Laboratory Results - last 24 hr 07/25/21 07:20: WBC 23.2 H, RBC 4.47 L, Hgb 13.2, Hct 40.3, MCV 90.2, MCH 29.5, MCHC 32.8, RDW Std Deviation 44.7 H, RDW Coeff of Kiersten 13.5, Plt Count 387, MPV 10.8, Immature Gran % (Auto) 1.200 H, Neut % (Auto) 81.8 H, Lymph % (Auto) 8.7 L , [place] % (Auto) 6.8, Eos % (Auto) 1.0, Baso % (Auto) 0.5, Absolute Neuts (auto) 19.0 H, Absolute Lymphs (auto) 2.02, Nucleated RBC % 0, Diff Path Review May foll 07/25/21 07:20: PT 24.3 H, INR 2.3, APTT 36.8 H 07/25/21 07:20: Sodium 136, Potassium 3.4 L, Chloride 99, Carbon Dioxide 23.0, Anion Gap 14, BUN 41 H, Creatinine 1.89 H, Estim Creat Clear Calc 28.02, Est GFR (MDRD) Af Amer 45 L, Est GFR (MDRD) Non-Af 37 L, BUN/Creatinine Ratio 21.7 H, Glucose 231 H, Calcium 9.3, Total Bilirubin 1.40 H, AST 22, ALT 50, Alkaline Phosphatase 102, Troponin I High Sens 99 H, Total Protein 8.1, Albumin 2.9 L, Globulin 5.2 H, Albumin/Globulin Ratio 0.6 L 07/25/21 07:20: Lactic Acid 5.7 H* 07/25/21 07:20: B-Natriuretic Peptide 372.0 H Micro: Microbiology 07/25/21 07:30 Nasal Secretion SARS-CoV-2 Antigen (Rapid) - Final Radiology Impression Chest X-Ray 07/25/21 07:28 IMPRESSION: Possible mild vascular congestion/interstitial edema. Stable cardiac enlargement and postsurgical changes. Electronically Signed: Pamela Montero MD at 8:18 EST , Service support , Chest CTA 07/25/21 08:30 IMPRESSION: No demonstrated pulmonary embolism, aneurysm, or arterial dissection. Increased interstitial edema and bilateral airspace disease since previous examination. There is increased mediastinal and decreased right hilar lymph node size since previous exam, findings are concerning for bilateral infiltrates. Component of vascular congestion likely superimposed. Stable small bilateral pleural effusion, cardiac enlargement, postsurgical changes of osteopenia, kyphosis. Electronically Signed: Pamela Montero MD at 9:36 EST , Service support , Assessment & Plan Assessment/Plan (1) Sepsis: (2) Acute and chronic respiratory failure with hypoxia: (3) Leukocytosis: (4) Lactic acidosis: (5) Acute hypoxemic respiratory failure: (6) Hypokalemia: (7) Heart failure, systolic, with acute decompensation: PLAN: Sepsis -Patient meets sepsis criteria with tachycardia, tachypnea, lactic acidosis, leukocytosis and suspected infection -Fluid boluses were deferred as patient has history of decompensated heart fa ilure and currently appears to have some mild heart failure as well as a septic picture -Pancultures are pending -UA is not consistent with acute infection -We will start Vanco and Zosyn -Rapid Covid is negative but PCR is pending given CAT scan findings -CTA of the chest shows no PE but does show bilateral airspace disease and interstitial edema which has increased and concerning for bilateral infiltrates, also small stable bilateral pleural effusions are noted Acute hypoxic respiratory failure suspect multifactorial causes (acute exacerbation of systolic heart failure/sepsis) -Patient initially required BiPAP on admission -Wean O2 as able -Labs on arrival at 50% -Patient was treated with diuresis in the emergency department -Cultures are pending -Check respiratory viral PCR -Covid PCR pending, rapid negative -Check sputum culture if able to produce -Antibiotics as above -I-S and Pep therapy -Patient is not O2 dependent at baseline Leukocytosis -Ruling out infection -Could potentially also be reactive Lactic acidosis -5.4 on admission -May be due to sepsis or hypoxia -Currently sepsis work-up in progress and will rule in or rule out in the near future -Cycle lactates for improvement -Fluid boluses deferred as patient appears to be clinically in heart failure as well and patient's blood pressures are overall stable Acute on chronic decompensated systolic and diastolic heart failure/HFrEF -Last echocardiogram was November 2020 and showed an EF of 45% and biatrial enlargement with mild to moderate mitral valve insufficiency, mild to moderate tricuspid valve insufficiency and diffuse mild aortic calcification with no stenosis as well as right ventricular systolic pressures at 53 mmHg -Lasix 40 mg IV push twice daily -BNP on admission was markedly elevated as compared to previous data -Patient does have cardiomems device and follows with cardiology in [place] as an outpatient for this -Implanted 03/25/2021 -We will consider cardiology consultation depending on clinical status -Repeat echocardiogram as he has not had an echo and over 6 months and newly decompensated Hypokalemia -40 mEq of p.o. potassium Obstructive sleep apnea -Last sleep study done 09/19/2018 and recommendations were for bilevel at 10/6 -Would recommend continuation of BiPAP at night if patient is able to code to nasal cannula HFrEF secondary to ischemic cardiomyopathy -Continue carvedilol -Continue lisinopril -IV Lasix as above History of persistent atrial fibrillation -Continue beta-ceferino -Continue Coumadin -INR is therapeutic -Continue daily INR at this time given antibiotic use DM-2 -Hold home oral agents -Accu-Cheks before meals and at bedtime -SSI Chronic left bundle branch block -Stable BPH -Continue finasteride CKD stage IIIb -Serum creatinine appears to be stable -Continue to monitor -Avoid nephrotoxins as able -Patient does have history of right renal infarct suspect related to atrial fibrillation 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
[2021-07-25 10:20] LABS: Bacteria 0 SEEN /hpf (None Seen); Mucous, Urine 0 SEEN /hpf (<or=2+); Red Blood Cells-Urine 0 SEEN /hpf (0-5); Squamous Epithelial Cells - UA 0 SEEN /hpf (0-5); White Blood Cells 0 SEEN /hpf (0-5)
--- NOTE | 2021-07-25 10:59 | PCS.PANDOC ---
PANDEMIC DOCUMENTATION INITIATED: Date: 04/15/2021 Time: 190
[2021-07-25 11:02] LABS: Color, Urine Yellow (Yellow); Glucose, Dipstick Normal (Normal); Ketone-Dipstick Negative (Negative); Leukocyte Esterase-Dipstick Negative /ul (Negative); Nitrite-Dipstick Negative (Negative); Occult Blood-Urine 50 /ul (Negative); Protein-Dipstick Negative (Negative); Urine Bilirubin Dipstick Negative (Negative); Urine Clarity Clear (Clear); Urine Urobilinogen Normal (Normal)
--- NOTE | 2021-07-25 11:16 | ECHOCS_ITS ---
Reason For Study: CHF Procedure This was a 2D Doppler, Color Flow transthoracic echocardiogram. The study was technically difficult. Contrast injection was performed. Exam performed portable in patient room. Left Ventricle Mild concentric left ventricular hypertrophy. The estimated ejection fraction is 45 %. Right Ventricle Normal right ventricle. Normal systolic function. Atria The left atrium is moderately enlarged. Normal right atrium. Mitral Valve There is moderate mitral annular calcification. Mild-Moderate (1-2+) mitral valve insufficiency. Tricuspid Valve Normal tricuspid valve. Mild to moderate (1-2+) tricuspid valve insufficiency. Aortic Valve Severe diffuse aortic valve thickening. Moderate to severe restriction of AV. Pulmonic Valve The pulmonic valve is not well visualized. Great Vessels Normal aortic root. Pericardium/Pleural No pericardial effusion. Medication Diluted definity 2ml given slow IV push to enhance endocardial definition. MMode/2D Measurements & Calculations LVIDd: 4.2 cm IVSd: 1.4 cm LA dimension: 5.1 cm LVIDs: 3.4 cm LVPWd: 1.3 cm FS: 19.8 % LAV(MOD-bp): 91.7 ml LA A4 area: 29.9 cm2 RA A4 area: 22.0 cm2 LAV(MOD-bp) Indexed: 39.5 ml/m2 LAV(MOD-sp2): 73.1 ml LAV(MOD-sp4): 105.1 ml Time Measurements MV dec time: 0.18 sec Doppler Measurements & Calculations MV E max john: 111.1 cm/sec Ao V2 max: 186.0 cm/sec LV V1 max: 155.0 cm/sec Ao max P.8 mmHg LV V1 max P.6 mmHg PA V2 max: 113.4 cm/sec TR max john: 354.8 cm/sec TR max P.4 mmHg ECHO/Echo Complete W/ Contrast Interpretation Summary The estimated ejection fraction is 45 %. Moderate to severe restriction of AV Mild to moderate MR Mild to moderate TR To consider LHC/RHC/KRISS evaluation Ordering Physician: Jolene Valentine Referring Physician: Howard Escobar Performed By: Salvatore Lemon RCS
[2021-07-25 11:29] LABS: Reflex Lactate? Y
--- NOTE | 2021-07-25 12:02 | PCM.RX.CS ---
Consult Pharmacy has been consulted to manage selected antiobiotic: Vancomycin Type of Consult: New start Suspected Infection: Sepsis Labs: Sodium 136 mmol/L (136-145) 07/25/21 07:20 Potassium 3.4 mmol/L (3.5-5.1) L 07/25/21 07:20 Chloride 99 mmol/L (98-107) 07/25/21 07:20 Carbon Dioxide 23.0 mmol/L (21.0-32.0) 07/25/21 07:20 Anion Gap 14 (5-15) 07/25/21 07:20 BUN 41 mg/dL (7-18) H 07/25/21 07:20 Creatinine 1.89 mg/dL (0.70-1.30) H 07/25/21 07:20 Est GFR (MDRD) Af Amer 45 mL/min (>60) L 07/25/21 07:20 Est GFR (MDRD) Non-Af 37 mL/min (>60) L 07/25/21 07:20 BUN/Creatinine Ratio 21.7 RATIO (10-20) H 07/25/21 07:20 Glucose 231 mg/dL (74-106) H 07/25/21 07:20 Microbiology: Microbiology 07/25/21 07:30 Nasal Secretion SARS-CoV-2 Antigen (Rapid) - Final Pharmacy Plan for Drug Dosing: NEW START IV VANCOMYCIN Consulting Physician: Sal STOVALL Indication: SEPSIS Goal Trough: 15-20 MG/DL SrCr: 1.89 (07/25) CrCl: 31.9 ML/MIN USING ADJUSTED BW OF 70 KG Comments: INITIAL DOSE SAME RECOMMENDED REGIMEN Vancomycin Dose: START 1250MG Q24H @ 1200 AND GET A TROUGH PRIOR TO 3RD DOSE OF REGIMEN PER POLICY. Pending Level: 07/27/21 @ 1130 Pharmacy Service will continue to monitor and adjust dosing as required.
[2021-07-25 13:30] LABS: Troponin-I HS 291 pg/mL (3.0-78.0)
[2021-07-25] MEDS: Finasteride 5 MG Tablet PO (14:07)
[2021-07-25] MEDS: Carvedilol 12.5 MG Tablet PO (14:07)
[2021-07-25] MEDS: Cholecalciferol (VIT D3) 25 MCG TABLET (1,000 UNITS) PO (14:08)
[2021-07-25] MEDS: Lisinopril 20 MG Tablet PO (14:08)
[2021-07-25 14:34] LABS: M R Staph aureus DNA By PCR Negative (Negative); Probe Check PASS; Specimen Processing Control PASS
[2021-07-25 15:19] LABS: Troponin-I HS 285 pg/mL (3.0-78.0)
[2021-07-26] VITALS (21 sets, daily range): BP systolic 91–131; BP diastolic 50–106; PULSE 38–67; RESP 15–25; TEMP 36.5–37; O2SAT 87–97
[2021-07-26 04:17] LABS: Absolute Lymphocyte Count 1.33 X10^3/uL (0.83-4.51); Absolute Neutrophil Count 9.8 X10^3/uL (2.0-7.7); Basophil# 0.04 X10^3/uL; Basophil% 0.3 % (0-1); Eosinophils% 0.8 % (0-5); Hematocrit 29.5 % (40-54); Lymphocyte # 1.33 X10^3/ul (0.83-4.51); Lymphocyte % 10.6 % (19-41); Mean Corp Hgb Conc 33.9 g/dL (32-36); Mean Corpuscular Hgb 30.3 pg (27.0-32.0); Mean Corpuscular Volume 89.4 fL (80-94); Mean Platelet Vol. 10.6 fl (6.2-12.0); Monocyte# 1.18 X10^3/uL; Monocyte% 9.4 % (0-10); NRBC Flagged by Analyzer 0 % (0-5); Neutrophil # 9.82 X10^3/uL (2.7-7.7); Neutrophil % 78.2 % (47-70); Platelet Count 233 K/mm3 (150-450); RBC Distribution Width CV 13.5 % (11.6-14.6); RBC Distribution Width SD 44.6 fl (35.1-43.9); White Blood Count 12.6 K/mm3 (4.4-11.0)
[2021-07-26 04:25] LABS: International Normalized Ratio 2.8; Prothrombin Time (Protime)PT. 28.9 SECONDS (11.7-14.9)
[2021-07-26 04:42] LABS: Anion Gap 8 (5-15); BUN 40 mg/dL (7-18); BUN/Creat Ratio 25.6 RATIO (10-20); Calcium,Total 8.4 mg/dL (8.5-10.1); Chloride 102 mmol/L (98-107); Creatinine, Serum 1.56 mg/dL (0.70-1.30); EST Glomerular Filtration Rate 46 mL/min (>60); Est Glom Filt Rate - Afr Amer 56 mL/min (>60); Estimated Creatinine Clearance 33.95 ml/min; Glucose 97 mg/dL (74-106); Magnesium 1.9 mg/dL (1.6-2.6); Potassium 3.3 mmol/L (3.5-5.1); Sodium Level 139 mmol/L (136-145); Thyroid Stim Hormone (TSH) 0.53 uIU/mL (0.358-3.74)
--- NOTE | 2021-07-26 06:21 | CON.PCM.CC_ITS ---
Assessment & Plan Assessment/Plan (1) Heart failure, systolic, with acute decompensation: PLAN: RECOMMENDATIONS: 1. Wean supplemental oxygen to maintain saturations at or above 90%. 2. Continue diuresis as tolerated by hemodynamics and renal function. 3. Antimicrobials can be discontinued from my perspective. 4. Additional medication titration per cardiology recommendations. 5. Encourage incentive spirometer use and mobilize patient as tolerated. 6. Continue home nocturnal Pap therapy with sleep. 7. The patient is medically stable for transfer out of the intensive care unit. Will sign off from a critical care perspective. IMPRESSIONS: 1. Acute hypoxemic respiratory failure Likely secondary to decompensated heart failure. The patient has responded to the use of noninvasive positive pressure ventilatory support and diuretic therapy. His oxygenation status has improved. Will defer additional medication titration to cardiology. Although there was some initial concern for sepsis, I do suspect that the patient's chest imaging is likely secondary to volume overload as opposed to a joselito pulmonary infectious etiology. No other source of infection has been identified. The patient remains afebrile and hemodynamically stable. I do suspect that the patient's lactic acidemia was secondary to his presenting hypoxemia. Antimicrobials can be discontinued. Sepsis has been ruled out from my perspective. 2. Hypokalemia Electrolyte repletion as ordered. Recheck levels in the morning. 3. Acute kidney injury Likely secondary to acute presentation. Creatinine has returned back to baseline. Continue to monitor urine output. No current indication for renal r eplacement therapy. 4. History of obstructive sleep apnea/persistent atrial fibrillation/diabetes mellitus/BPH/obesity Complicates care, management, recovery and prognosis. Continue home medications as indicated. Continue nocturnal Pap therapy per home regimen. This note was generated with Maintenance Assistant dictation software. It may contain incorrect words, spelling, and punctuation that were not noted in checking the note before signing. HPI Consult Data Date of Consult: 07/26/21 HPI Narrative Reason for Consultation: Acute hypoxemic respiratory failure HPI Narrative: The patient is a 76-year-old male, with a history as outlined below, who presented to the emergency department on July 25 with reports of dyspnea. The patient has a known history of persistent atrial fibrillation, underlying cardiomyopathy with an ejection fraction of 45%, obstructive sleep apnea and hypertension. The patient currently has a CardioMEMS device implanted for his congestive heart failure, which was placed in February 2021. This device is monitored remotely by his rural sociologist, Dr. Turk. He was last remotely monitored on July 05, at which time, it was documented that his PA diastolic had ranged from 11 to 18 mmHg. No changes were made in his medical regimen at that time. The patient reported that for the last 5 days his device has been offline and he has been feeling worse. He noted increasing abdominal distention and lower extremity edema. On presentation to the emergency department, the patient was noted to be afebrile and hemodynamically stable. He was, nevertheless tachycardic and tach ypneic. Due to hypoxemia, the patient was initially placed on a BiPAP. Initial laboratory evaluation revealed an elevated white blood cell count to 23,000. Chemistry profile was notable for a potassium of 3.4 and creatinine of 1.89. Lactate was elevated at 5.7. BNP was mildly elevated at 372. Urine analysis was unremarkable. Coronavirus PCR was negative. MRSA screen was negative. CTA chest was obtained and showed no evidence for PE. Bilateral airspace opacification with interstitial prominence was noted. Small bilateral pleural effusions were also noted. The patient was initially placed on antimicrobials and scheduled Lasix. He was admitted to the medical intensive care unit for further management. This morning, the patient's oxygenation status has improved. He is currently maintaining appropriate saturations on 2 L/min via nasal cannula. He is currently documented to be overall net -1.6 L for the hospitalization. The patient reports overall that his breathing quality has improved significantly in light of diuresis. [facility] Medical History Anemia due to stage 3b chronic kidney disease Back pain BPH (benign prostatic hyperplasia) Chronic combined systolic and diastolic CHF (congestive heart failure) Constipation CPAP (continuous positive airway pressure) dependence Diabetes Diabetes Elevated troponin (01/2021) Essential (primary) hypertension History of tobacco use HLD (hyperlipidemia) Hypertrophic cardiomyopathy Left bundle branch block Longstanding persistent atrial fibrillation 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 Obesity (BMI 30.0-34.9) KIMBERLY (obstructive sleep apnea) Pneumonia Presence of implantable pulmonary artery pressure and heart rate monitoring system (03/25/21) Renal infarct Secondary pulmonary arterial hypertension Sleep apnea Umbilical hernia Home Medications cyanocobalamin (vitamin B-12) 1,000 mcg IM Q30D 06/08/16 [History Last Taken 01/29/19] finasteride 5 mg tablet 5 mg PO DAILY tablet 12/19/20 [History Last Taken 12/22/20] glimepiride 1 mg tablet 1 mg PO DAILY tab 02/13/21 [History Last Taken Unknown] lisinopril 20 mg tablet 20 mg PO DAILY tab 03/11/21 [History Last Taken Unknown] warfarin 2.5 mg tablet 2.5 mg PO SUTUTHSA 03/11/21 [History Last Taken Unknown] warfarin 5 mg tablet 5 mg PO MOWEFR 03/11/21 [History Last Taken Unknown] furosemide 40 mg tablet 40 mg PO BID #180 tab 03/26/21 [Rx Last Taken Unknown] carvedilol 6.25 mg tablet 12.5 mg PO Q12H tab 05/24/21 [History Last Taken Unknown] cholecalciferol (vitamin D3) [Vitamin D3] 25 mcg PO DAILY 07/25/21 [History Last Taken Unknown] Allergy/AdvReac Type Severity Reaction Status Date / Time rivaroxaban [From Xarelto] Allergy Bleeding Verified 07/25/21 07:22 metoprolol AdvReac bradycardia Verified 07/25/21 07:22 Family History Father Heart disease Sister Heart disease Brother Heart disease Other Arthritis CVA (cerebral vascular accident) Depression Mental disorder Surgical History History of appendectomy History of left heart catheterization (02/19/21) History of transurethral resection of prostate (01/2019) History of ventricular septal myectomy (2000) Hx of umbilical hernia repair Social History Smoking Status: Former smoker how long ago did patient quit smokin years ago 0.25ppd second hand exposure: Yes alcohol intake: never caffeine: Yes Type: coffee Number of servings: 1 what type of physical activity do you participate in: other details: treadmill frequency: daily ROS Constitutional Constitutional: Denies chills, fatigue or fever(s) Eyes Eyes: Denies blurry vision or change in vision ENT HEENT: Denies dizziness, dysphagia or epistaxis Cardiovascular Cardiovascular: Reports dyspnea, edema and irregular heart rhythm; Denies chest pain Respiratory/Chest Respiratory/Chest: Reports dyspnea; Denies chest tightness or cough Gastrointestinal Gastrointestinal: Denies abdominal pain, diarrhea, nausea or vomiting Genitourinary Genitourinary: Denies difficulty urinating Musculoskeletal Musculoskeletal: Denies arthralgias, back pain or joint pain Integumentary Integumentary: Denies lesions, rash or skin ulcer Neurologic Neurologic: Denies abnormal gait or abnormal speech Psychiatric Psychiatric: Denies anxiety or depression Endocrine Endocrinology: Denies fatigue Hematologic/Lymphatic Hematologic/Lymphatic: Denies easy bleeding or easy bruising Physical Exam Const alert, oriented x3 and no apparent distress Constitutional Narrative: Home PAP device currently in place. General Appearance: cooperative Nutritional Appearance: morbidly obese HEENT normocephalic and head/scalp atraumatic Eyes PERRL, EOMs intact bilaterally and conjunctivae normal Neck supple General: trachea midline Chest inspection of chest normal Resp Resp Narrative: Clear across anterior lung batista. Cardio Rate: bradycardia Rhythm: abnormal rhythm GI normal to inspection, nondistended, normoactive bowel sounds Extremity General Extremity: edema; Negative for clubbing Skin no rashes or lesions noted Neuro CN's II-XII intact bilaterally, moves all extremities and no focal motor deficits Psych cooperative and affect normal Lab / Micro Data Result Diagrams: 07/26/21 03:55 07/26/21 03:55 Labs: Laboratory Results - last 24 hr 07/25/21 07:20: WBC 23.2 H, RBC 4.47 L, Hgb 13.2, Hct 40.3, MCV 90.2, MCH 29.5, MCHC 32.8, RDW Std Deviation 44.7 H, RDW Coeff of Kiersten 13.5, Plt Count 387, MPV 10.8, Immature Gran % (Auto) 1.200 H, Neut % (Auto) 81.8 H, Lymph % (Auto) 8.7 L , Chambers % (Auto) 6.8, Eos % (Auto) 1.0, Baso % (Auto) 0.5, Absolute Neuts (auto) 19.0 H, Absolute Lymphs (auto) 2.02, Nucleated RBC % 0, Diff Path Review December07/25/21 07:20: PT 24.3 H, INR 2.3, APTT 36.8 H 07/25/21 07:20: Sodium 136, Potassium 3.4 L, Chloride 99, Carbon Dioxide 23.0, Anion Gap 14, BUN 41 H, Creatinine 1.89 H, Estim Creat Clear Calc 28.02, Est GFR (MDRD) Af Amer 45 L, Est GFR (MDRD) Non-Af 37 L, BUN/Creatinine Ratio 21.7 H, Glucose 231 H, Calcium 9.3, Total Bilirubin 1.40 H, AST 22, ALT 50, Alkaline Phosphatase 102, Troponin I High Sens 99 H, Total Protein 8.1, Albumin 2.9 L, Globulin 5.2 H, Albumin/Globulin Ratio 0.6 L 07/25/21 07:20: Lactic Acid 5.7 H* 07/25/21 07:20: B-Natriuretic Peptide 372.0 H 07/25/21 09:56: COVID-19 (AICHA) Not Detected 07/25/21 10:15: Urine Color Yellow, Urine Clarity Clear, Urine pH 5.0, Ur Specific [place] 1.010, Urine Protein Negative, Urine Glucose (UA) Normal, Urine Ketones Negative, Urine Occult Blood 50 H, Urine Nitrite Negative, Urine B ilirubin Negative, Urine Urobilinogen Normal, Ur Leukocyte Esterase Negative, Urine RBC 0 SEEN, Urine WBC 0 SEEN, Ur Squamous Epith Cells 0 SEEN, Urine Bacteria 0 SEEN, Urine Mucus 0 SEEN 07/25/21 12:25: MRSA (PCR) Negative 07/25/21 12:25: Troponin I High Sens 291 H* 07/25/21 14:05: Troponin I High Sens 285 H* 07/26/21 03:55: WBC 12.6 H, RBC 3.30 L, Hgb 10.0 L, Hct 29.5 L, MCV 89.4, MCH 30.3, MCHC 33.9, RDW Std Deviation 44.6 H, RDW Coeff of Kiersten 13.5, Plt Count 233, MPV 10.6, Immature Gran % (Auto) 0.700, Neut % (Auto) 78.2 H, Lymph % (Auto) 10.6 L, Chambers % (Auto) 9.4, Eos % (Auto) 0.8, Baso % (Auto) 0.3, Absolute Neuts (auto) 9.8 H, Absolute Lymphs (auto) 1.33, Nucleated RBC % 0 07/26/21 03:55: Sodium 139, Potassium 3.3 L, Chloride 102, Carbon Dioxide 29.0, Anion Gap 8, BUN 40 H, Creatinine 1.56 H, Estim Creat Clear Calc 33.95, Est GFR (MDRD) Af Amer 56 L, Est GFR (MDRD) Non-Af 46 L, BUN/Creatinine Ratio 25.6 H, Glucose 97, Calcium 8.4 L, Magnesium 1.9, TSH 0.53 07/26/21 03:55: PT 28.9 H, INR 2.8 Micro: Microbiology 07/25/21 09:55 Mucosa - Nose Respiratory Panel (PCR) - Final 07/25/21 12:25 Urine Catheter - [place] Legionella Antigen - Final 07/25/21 12:25 Urine Catheter - [place] Streptococcus pneumoniae Antigen (M - Final 07/25/21 07:30 Nasal Secretion SARS-CoV-2 Antigen (Rapid) - Final Radiology Impression Chest X-Ray 07/25/21 07:28 IMPRESSION: Possible mild vascular congestion/interstitial edema. Stable cardiac enlargement and postsurgical changes. Electronically Signed: Pamela Montero MD at 8:18 EST , Service support , Chest CTA 07/25/21 08:30 IMPRESSION: No demonstrated pulmonary embolism, aneurysm, or arterial dissection. Increased interstitial edema and bilateral airspace disease since previous examination. There is increased mediastinal and decreased right hilar lymph node size since previous exam, findings are concerning for bilateral infiltrates. Component of vascular congestion likely superimposed. Stable small bilateral pleural effusion, cardiac enlargement, postsurgical changes of osteopenia, kyphosis. Electronically Signed: Pamela Montero MD at 9:36 EST , Service support , Charges/Coding Visit Charges Inpatient E&M: 55182 Init Hosp L3
[2021-07-26 08:14] LABS: Phosphorus 3.3 mg/dL (2.5-4.9)
[2021-07-26] MEDS: Potassium Chloride Oral Tablet 20 MEQ 40 MEQ PO (08:16)
[2021-07-26] MEDS: Carvedilol 12.5 MG Tablet PO ×2 (08:17→16:34)
[2021-07-26] MEDS: Furosemide 40 MG/4 ML Vial IV ×2 (09:21→16:34)
[2021-07-26] MEDS: Finasteride 5 MG Tablet PO (09:21)
[2021-07-26] MEDS: Cholecalciferol (VIT D3) 25 MCG TABLET (1,000 UNITS) PO (09:21)
[2021-07-26] MEDS: Lisinopril 20 MG Tablet PO (09:22)
--- NOTE | 2021-07-26 10:39 | CON.PCM.CA_ITS ---
Assessment & Plan Assessment/Plan (1) Leukocytosis: (2) Dyspnea: QUALIFIERS: Dyspnea type: shortness of breath Qualified Code(s): R06.02 - Shortness of breath (3) Chronic kidney disease, stage 3b: (4) CHF NYHA class III: (5) Presence of implantable pulmonary artery pressure and heart rate monitoring system: (6) Nonobstructive atherosclerosis of coronary artery: (7) Hypertrophic cardiomyopathy: (8) Left bundle branch block: (9) Acute on chronic combined systolic (congestive) and diastolic (congestive) heart failure: PLAN: 76-year-old patient admitted with symptoms of shortness of breath this has been for the last 7 days patient noted symptoms of intermittent chills with cough, also patient had question about adjustment of his mems device Cardiac assessment recommendation; 1. Patient had history of hypertrophic cardiomyopathy with septal myomectomy done at [facility] As well had a persistent atrial fibrillation with a left bundle branch block Currently he is on anticoagulation with Coumadin with therapeutic INR. Symptoms of shortness of breath is improving noted he had chronic renal insufficiency with elevated creatinine. A prior echocardiogram showed ejection fraction of around 45%. Also noted this patient had leukocytosis with elevated white cell count Lactic acidosis suspected infection, currently on vancomycin and Zosyn. The elevated cardiac biomarkers is secondary to type II CT/demand myocardial ischemia due to the multiple medical comorbidities with acute on chronic CHF and sepsis. 2. Continue to cardiac medication and monitoring electrolytes and renal function. 3. Echocardiogram to reevaluate his LV function and also evaluation of his mems cardiac device. 4. His primary expanded duty dental assistant Dr. Turk will follow up HPI Consult Data Date of Consult: 07/26/21 HPI Narrative Reason for Consultation: Acute on chronic systolic heart failure/Mild elevation of troponin I HPI Narrative: ANTWAN GE, is a 76 M who presents [facility] Medical History Anemia due to stage 3b chronic kidney disease Back pain BPH (benign prostatic hyperplasia) Chronic combined systolic and diastolic CHF (congestive heart failure) Constipation CPAP (continuous positive airway pressure) dependence Diabetes Diabetes Elevated troponin (01/2021) Essential (primary) hypertension History of tobacco use HLD (hyperlipidemia) Hypertrophic cardiomyopathy Left bundle branch block Longstanding persistent atrial fibrillation 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 Obesity (BMI 30.0-34.9) KIMBERLY (obstructive sleep apnea) Pneumonia Presence of implantable pulmonary artery pressure and heart rate monitoring system (03/25/21) Renal infarct Secondary pulmonary arterial hypertension Sleep apnea Umbilical hernia Home Medications cyanocobalamin (vitamin B-12) 1,000 mcg IM Q30D 06/08/16 [History Last Taken 01/29/19] finasteride 5 mg tablet 5 mg PO DAILY tablet 12/19/20 [History Last Taken 12/22/20] glimepiride 1 mg tablet 1 mg PO DAILY tab 02/13/21 [History Last Taken Unknown] lisinopril 20 mg tablet 20 mg PO DAILY tab 03/11/21 [History Last Taken U nknown] warfarin 2.5 mg tablet 2.5 mg PO SUTUTHSA 03/11/21 [History Last Taken Unknown] warfarin 5 mg tablet 5 mg PO MOWEFR 03/11/21 [History Last Taken Unknown] furosemide 40 mg tablet 40 mg PO BID #180 tab 03/26/21 [Rx Last Taken Unknown] carvedilol 6.25 mg tablet 12.5 mg PO Q12H tab 05/24/21 [History Last Taken Unknown] cholecalciferol (vitamin D3) [Vitamin D3] 25 mcg PO DAILY 07/25/21 [History Last Taken Unknown] Allergy/AdvReac Type Severity Reaction Status Date / Time rivaroxaban [From Xarelto] Allergy Bleeding Verified 07/25/21 07:22 metoprolol AdvReac bradycardia Verified 07/25/21 07:22 Family History Father Heart disease Sister Heart disease Brother Heart disease Other Arthritis CVA (cerebral vascular accident) Depression Mental disorder Surgical History History of appendectomy History of left heart catheterization (02/19/21) History of transurethral resection of prostate (01/2019) History of ventricular septal myectomy (2000) Hx of umbilical hernia repair Social History Smoking Status: Former smoker how long ago did patient quit smokin years ago 0.25ppd second hand exposure: Yes alcohol intake: never caffeine: Yes Type: coffee Number of servings: 1 what type of physical activity do you participate in: other details: treadmill frequency: daily Physical Exam Narrative Patient seen evaluated at bedside along with the nursing staff Alert orientated x3 traffic monitor specialist showed underlying atrial fibrillation Cardiovascular exam patient had sternotomy scar with a history of septal myomectomy for hypertrophic cardiomyopathy S1-S2 is irregular, there is no murmur Chest exam he had diminished air entry bilateral with minimal bilateral basilar rales Examination lower extremity no clubbing no cyanosis no lower extremity edema Central nervous system exam no focal neurological deficit. Risk Stratification Risk Stratification Applicable: No Objective Data Vital Signs: Vital Signs Temp Pulse Resp BP Pulse Ox 97.7 F L 61 18 131/76 H 96 07/26/21 08:14 07/26/21 08:14 07/26/21 08:14 07/26/21 08:14 07/26/21 08:14 Oxygen Flow Rate (L/min) 3 Oxygen Delivery Method Room Air Weight: 300 lb 11.368 oz Body Mass Index (BMI) 30.4 Intake & Output: Intake and Output for Last 24 Hours 07/24/21 07/25/21 07/26/21 23:59 23:59 23:59 Intake Total 697 / 697 473 / 473 Output Total 2425 / 2425 550 / 550 Balance -1728 / -1728 -77 / -77 Lab / Micro Data Result Diagrams: 07/26/21 03:55 07/26/21 03:55 Labs: Laboratory Results - last 24 hr 07/25/21 09:56: COVID-19 (AICHA) Not Detected 07/25/21 10:15: Urine Color Yellow, Urine Clarity Clear, Urine pH 5.0, Ur Specific [place] 1.010, Urine Protein Negative, Urine Glucose (UA) Normal, Urine Ketones Negative, Urine Occult Blood 50 H, Urine Nitrite Negative, Urine Bilirubin Negative, Urine Urobilinogen Normal, Ur Leukocyte Esterase Negative, Urine RBC 0 SEEN, Urine WBC 0 SEEN, Ur Squamous Epith Cells 0 SEEN, Urine Bacteria 0 SEEN, Urine Mucus 0 SEEN 07/25/21 12:25: MRSA (PCR) Negative 07/25/21 12:25: Troponin I High Sens 291 H* 07/25/21 14:05: Troponin I High Sens 285 H* 07/26/21 03:55: WBC 12.6 H, RBC 3.30 L, Hgb 10.0 L, Hct 29.5 L, MCV 89.4, MCH 30.3, MCHC 33.9, RDW Std Deviation 44.6 H, RDW Coeff of Kiersten 13.5, Plt Count 233, MPV 10.6, Immature Gran % (Auto) 0.700, Neut % (Auto) 78.2 H, Lymph % (Auto) 10.6 L, [place] % (Auto) 9.4, Eos % (Auto) 0.8, Baso % (Auto) 0.3, Absolute Neuts (auto) 9.8 H, Absolute Lymphs (auto) 1.33, Nucleated RBC % 0 07/26/21 03:55: Sodium 139, Potassium 3.3 L, Chloride 102, Carbon Dioxide 29.0, Anion Gap 8, BUN 40 H, Creatinine 1.56 H, Estim Creat Clear Calc 33.95, Est GFR (MDRD) Af Amer 56 L, Est GFR (MDRD) Non-Af 46 L, BUN/Creatinine Ratio 25.6 H, Glucose 97, Calcium 8.4 L, Magnesium 1.9, TSH 0.53 07/26/21 03:55: Phosphorus 3.3 07/26/21 03:55: PT 28.9 H, INR 2.8 Micro: Microbiology 07/25/21 09:55 Mucosa - Nose Respiratory Panel (PCR) - Final 07/25/21 12:25 Urine Catheter - [place] Legionella Antigen - Final 07/25/21 12:25 Urine Catheter - [place] Streptococcus pneumoniae Antigen (M - Final 07/25/21 07:30 Nasal Secretion SARS-CoV-2 Antigen (Rapid) - Final Cardiology Labs/Tests 07/25/21 10:15: Urine Color Yellow, Urine Clarity Clear, Urine pH 5.0, Ur Specific [place] 1.010, Urine Protein Negative, Urine Glucose (UA) Normal, Urine Ketones Negative, Urine Occult Blood 50 H, Urine Nitrite Negative, Urine Bilirubin Negative, Urine Urobilinogen Normal, Ur Leukocyte Esterase Negative, Urine RBC 0 SEEN, Urine WBC 0 SEEN 07/26/21 03:55: WBC 12.6 H, RBC 3.30 L, Hgb 10.0 L, Hct 29.5 L, MCV 89.4, MCH 30.3, MCHC 33.9, Plt Count 233, MPV 10.6, Immature Gran % (Auto) 0.700, Neut % (Auto) 78.2 H, Lymph % (Auto) 10.6 L, [place] % (Auto) 9.4, Eos % (Auto) 0.8, Baso % (Auto) 0.3, Absolute Neuts (auto) 9.8 H, Nucleated RBC % 0 07/26/21 03:55: Sodium 139, Potassium 3.3 L, Chloride 102, Carbon Dioxide 29.0, Anion Gap 8, BUN 40 H, Creatinine 1.56 H, Est GFR (MDRD) Af Amer 56 L, Est GFR (MDRD) Non-Af 46 L, BUN/Creatinine Ratio 25.6 H, Glucose 97, Calcium 8.4 L, Magnesium 1.9 07/26/21 03:55: Phosphorus 3.3 07/26/21 03:55: PT 28.9 H, INR 2.8 Rhythm: EKG: ECHO: Stress Test: Cardiac Cath: PCI: CT Surgery: Holter monitor: EPS: PPM: CXR: Chest CT Scan:
[2021-07-26 12:40] LABS: Bedside Glucose 113 mg/dL (70-110)
--- NOTE | 2021-07-26 13:15 | CASEMGMT ---
ALEENA PONCE assessment: RN CM to room to meet with patient for initial transition planning/care coordination assessment. ALEENA PONCE introduced self and role at [facility]. Pt voices understanding and consents to assessment at this time. Pt's is at bedside during assessment. Care providers, pharmacy, and demographics verified. PCP: Shawn Specialists: DANIEL--cardiology. Dr Pinedo--nephrology Preferred Pharmacy: [facility] Insurance: [facility] A/B, [place] Prescription Benefit: yes Living Will/HPOA: Pt states has LW/HPOA and is aware that they are on file at [facility]. Jackie Osman is HPOA LNOK: Radha Osman, ( in Oct) ; 4 adult children. Jackie Osman is HPOA. Everardo Osman, son. Living Arrangements: Pt lives with in condo with 1 step in and full basement and states no concerns at home. Pt is independent with ADL's. Transportation: Pt drives self and states no transportation concerns. DME: Pt states has the following DME: cpap thru [employer] and walker. Does not have home O2. Given list of local DME companies. Pt does not have a preference. Pt states no need for any further DME. SNF/HHC: Pt states no hx of HHC or SNF. Pt states no concerns with going home at discharge and denies need for HHC. Pt voices no further concerns/needs. CM to follow for home oxygen need and any further discharge planning/needs. Advised pt to ask for CM if any further questions/concerns/needs arise, voices understanding. PLAN: Home w/family support and discharge plans in place. CM to follow for any Home O2 needs @ discharge. Meghan ALVARADO RN, CM
[2021-07-26 15:32] LABS: Pathologist Review Reviewed
--- NOTE | 2021-07-26 16:00 | PN.HOSP_ITS ---
Subjective Subjective Patient reports that he is feeling much better today. He has been able to be weaned to room air with an oxygen saturation of 94 to 95% down from 2 L this morning and BiPAP yesterday. He has diuresed almost 2 L of fluid since admission. He states his breathing is much improved and he feels like his abdomen is less distended. Objective Data Objective Data Vital Signs: Vital Signs Temp Pulse Resp BP Pulse Ox 98.2 F 59 L 18 129/67 H 95 07/26/21 12:00 07/26/21 12:00 07/26/21 12:00 07/26/21 12:00 07/26/21 14:40 Oxygen Flow Rate (L/min) 3 Oxygen Delivery Method Room Air Weight: 136.4 kg Body Mass Index (BMI) 30.4 Intake & Output: Intake and Output for Last 24 Hours 07/24/21 07/25/21 07/26/21 23:59 23:59 23:59 Intake Total 697 / 697 748 / 748 Output Total 2425 / 2425 1000 / 1000 Balance -1728 / -1728 -252 / -252 Lab / Micro Data Result Diagrams: 07/26/21 03:55 07/26/21 03:55 Labs: Laboratory Results - last 24 hr 07/25/21 07:20: Diff Path Review Reviewed 07/26/21 03:55: WBC 12.6 H, RBC 3.30 L, Hgb 10.0 L, Hct 29.5 L, MCV 89.4, MCH 30.3, MCHC 33.9, RDW Std Deviation 44.6 H, RDW Coeff of Kiersten 13.5, Plt Count 233, MPV 10.6, Immature Gran % (Auto) 0.700, Neut % (Auto) 78.2 H, Lymph % (Auto) 10.6 L, [place] % (Auto) 9.4, Eos % (Auto) 0.8, Baso % (Auto) 0.3, Absolute Neuts (auto) 9.8 H, Absolute Lymphs (auto) 1.33, Nucleated RBC % 0 07/26/21 03:55: Sodium 139, Potassium 3.3 L, Chloride 102, Carbon Dioxide 29.0, Anion Gap 8, BUN 40 H, Creatinine 1.56 H, Estim Creat Clear Calc 33.95, Est GFR (MDRD) Af Amer 56 L, Est GFR (MDRD) Non-Af 46 L, BUN/Creatinine Ratio 25.6 H, Glucose 97, Calcium 8.4 L, Magnesium 1.9, TSH 0.53 07/26/21 03:55: Phosphorus 3.3 07/26/21 03:55: PT 28.9 H, INR 2.8 07/26/21 12:16: POC Glucose 113 H Micro: Microbiology 07/25/21 12:25 Urine Catheter - [place] Urine Culture - Preliminary Culture exhibits no growth. 07/25/21 12:25 Urine Catheter - [place] Legionella Antigen - Final 07/25/21 12:25 Urine Catheter - [place] Streptococcus pneumoniae Antigen (M - Final 07/25/21 09:55 Mucosa - Nose Respiratory Panel (PCR) - Final 07/25/21 07:30 Nasal Secretion SARS-CoV-2 Antigen (Rapid) - Final Radiography Diagnostic Testing: Radiology Impression Echocardiogram 07/25/21 11:16 Interpretation Summary The estimated ejection fraction is 45 %. Moderate to severe restriction of AV Mild to moderate MR Mild to moderate TR To consider LHC/RHC/KRISS evaluation Ordering Physician: Jolene Valentine Referring Physician: Howard Escobar Performed By: Salvatore Lemon RCS Physical Exam Const alert, oriented x3, no apparent distress and well nourished Constitutional Narrative: Overweight white male sitting up in bed on 2 L nasal cannula, appears comfortable, nontoxic, much more relaxed and comfortable than upon my evaluation yesterday General Appearance: cooperative Exam Limitations: no limitations Nutritional Appearance: overweight HEENT normocephalic, head/scalp atraumatic, hearing grossly normal bilaterally and moist oral mucous membranes HEENT Narrative: Mallampati 3, no thrush Head and Scalp: normocephalic Eyes PERRL, EOMs intact bilaterally and conjunctivae normal Eyes Narrative: No scleral icterus Neck no lymphadenopathy, supple, no JVD and no carotid bruits Neck Narrative: trachea midline, no thyroid enlargement Resp normal respiratory effort, no retractions, no use of accessory muscles and clear to auscultation bilaterally Resp Narrative: Crackles have resolved Auscultation: Negative for crackles, rales, rhonchi or wheezes Cardio regular rate, regular rhythm, S1 normal heart sound, S2 normal heart sound, no murmurs, no rub, no gallops and no clicks GI normal to inspection, nondistended, normoactive bowel sounds, soft to palpation, non-tender and non-distended Extremity Extremity Narrative: Trace bilateral lower extremity pitting edema, no cyanosis or clubbing Peripheral Pulses: Yes pulses 2+ throughout Skin no wounds, skin turgor normal, no jaundice, no petechiae and no mottling Skin Narrative: Few scattered ecchymosis but no open lesions Neuro oriented x3, moves all extremities and no focal motor deficits Neuro Narrative: Reflexes 2+, mild generalized weakness, no focal deficit Sensorium / Orientation: awake and alert Speech: speech normal Psych affect normal Assessment & Plan Assessment/Plan (1) Sepsis: (2) Acute and chronic respiratory failure with hypoxia: (3) Leukocytosis: (4) Lactic acidosis: (5) Acute hypoxemic respiratory failure: (6) Hypokalemia: (7) Heart failure, systolic, with acute decompensation: PLAN: Sepsis-ruled out -Patient meets sepsis criteria with tachycardia, tachypnea, lactic acidosis, leukocytosis and suspected infection -Fluid boluses were deferred as patient has history of decompensated heart failure and currently appears to have some mild heart failure as well as a se ptic picture -Sepsis has been ruled out at this point time with negative cultures and rapid clinical improvement -Suspect the criteria that he met on admission were all related to heart failure and hypoxia -All cultures are negative Acute hypoxic respiratory failure secondary to acute exacerbation of systolic and diastolic heart failure -Resolved -Responded well to diuresis -Covid PCR is negative -Covid PCR pending, rapid negative -Sputum culture able to be produced -We will discontinue antibiotics at this time -I-S and Pep therapy Leukocytosis -Infection ruled out -Suspect reactive from hypoxia and stress Lactic acidosis -resolved -5.4 on admission -Suspect related to hypoxia Acute on chronic decompensated systolic and diastolic heart failure/HFrEF -Last echocardiogram was November 2020 and showed an EF of 45% and biatrial enlargement with mild to moderate mitral valve insufficiency, mild to moderate tricuspid valve insufficiency and diffuse mild aortic calcification with no stenosis as well as right ventricular systolic pressures at 53 mmHg -Echocardiogram at this time shows an EF of 45% with moderate to severe restriction of the aortic valve, moderate to severe MR and mild to moderate TR -Continue IV Lasix as ordered but with aortic valve will need to monitor closely for too much afterload reduction as he will be preload dependent with aortic stenosis -BNP on admission was markedly elevated as compared to previous data -Patient does have cardiomems device and follows with cardiology in [place] as an outpatient for this -Implanted 03/25/2021 -We will consider cardiology consultation depending on clinical status -Repeat echocardiogram as he has not had an echo and over 6 months and newly decompensated Aortic valve stenosis -Appears that this may be new and may be the etiology for his worsening heart failure -Cardiology has evaluated the patient and recommends outpatient follow-up with Dr. Turk after discharge -I do not see gradients or valve areas documented in the echo -May need KRISS in the future -Await further recommendations from cardiology Hypokalemia -40 mEq of p.o. potassium -Repeat BMP in the a.m. -Check a.m. magnesium level NSTEMI type II -Elevation of high-sensitivity troponin -Suspect this is related to hypoxia and subendocardial ischemia -No new wall motion abnormality noted on echocardiogram -Audiology is following Obstructive sleep apnea -Last sleep study done 09/19/2018 and recommendations were for bilevel at /6 -Would recommend continuation of BiPAP at night if patient is able to code to nasal cannula HFrEF secondary to ischemic cardiomyopathy -Continue carvedilol -Continue lisinopril -IV Lasix as above History of persistent atrial fibrillation -Continue beta-ceferino -Continue Coumadin -INR is therapeutic -Continue daily INR at this time given antibiotic use DM-2 -Hold home oral agents -Accu-Cheks before meals and at bedtime -SSI Chronic left bundle branch block -Stable BPH -Continue finasteride CKD stage IIIb -Serum creatinine appears to be stable -Serum creatinine has improved some with diuresis so I expect there is some component of cardiorenal syndrome -Continue to monitor -Avoid nephrotoxins as able -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
[2021-07-26 16:35] LABS: Bedside Glucose 121 mg/dL (70-110)
--- NOTE | 2021-07-26 16:52 | CASEMGMT ---
Per Angi FLOOD, pt does not qualify for amb oxygen at this time. Pt is on room air. Tyrone FLOOD CM
--- NOTE | 2021-07-26 23:35 | NURSING ---
TELE MONITOR ALARMING HEART RATE DOWN TO 34, 38 & LOW 40'S AND THEN BACK UP IN THE 60'S. PT DENIES C/O CP OR SOB, IS CURRENTLY RESTING IN BED WITH HIS HOME CPAP ON, PT REPORTS HIS HEART RATE DOES DROP THIS LOW AT TIMES. WILL CONTINUE TO MONITOR. VSS. AFIB/BBB ON THE MONITOR
[2021-07-27] VITALS (14 sets, daily range): BP systolic 111–150; BP diastolic 49–75; PULSE 40–64; RESP 14–16; TEMP 36.7–37.1; O2SAT 94–96
[2021-07-27 06:55] LABS: Bedside Glucose 116 mg/dL (70-110)
[2021-07-27 08:17] LABS: Absolute Lymphocyte Count 1.32 X10^3/uL (0.83-4.51); Basophil# 0.08 X10^3/uL; Basophil% 0.7 % (0-1); Eosinophil# 0.14 X10^3/uL; Eosinophils% 1.3 % (0-5); Hematocrit 32.4 % (40-54); Hemoglobin 10.6 g/dL (13.0-16.5); Lymphocyte # 1.32 X10^3/ul (0.83-4.51); Lymphocyte % 12.3 % (19-41); Mean Corp Hgb Conc 32.7 g/dL (32-36); Mean Corpuscular Hgb 28.9 pg (27.0-32.0); Mean Corpuscular Volume 88.3 fL (80-94); Mean Platelet Vol. 11.1 fl (6.2-12.0); Monocyte# 1.04 X10^3/uL; Monocyte% 9.7 % (0-10); NRBC Flagged by Analyzer 0 % (0-5); Neutrophil # 7.96 X10^3/uL (2.7-7.7); Neutrophil % 74.3 % (47-70); Platelet Count 276 K/mm3 (150-450); RBC Distribution Width CV 13.3 % (11.6-14.6); RBC Distribution Width SD 43.4 fl (35.1-43.9); Red Blood Count 3.67 M/mm3 (4.6-6.2); White Blood Count 10.7 K/mm3 (4.4-11.0)
[2021-07-27 08:31] LABS: International Normalized Ratio 2.2; Prothrombin Time (Protime)PT. 23.8 SECONDS (11.7-14.9)
[2021-07-27 08:48] LABS: Anion Gap 8 (5-15); BUN 42 mg/dL (7-18); Calcium,Total 9.2 mg/dL (8.5-10.1); Chloride 104 mmol/L (98-107); Creatinine, Serum 1.75 mg/dL (0.70-1.30); EST Glomerular Filtration Rate 40 mL/min (>60); Est Glom Filt Rate - Afr Amer 49 mL/min (>60); Estimated Creatinine Clearance 30.26 ml/min; Glucose 125 mg/dL (74-106); Potassium 3.9 mmol/L (3.5-5.1); Sodium Level 137 mmol/L (136-145)
[2021-07-27] MEDS: Finasteride 5 MG Tablet PO (09:54)
[2021-07-27] MEDS: Furosemide 40 MG/4 ML Vial IV ×2 (09:54→17:46)
[2021-07-27] MEDS: Cholecalciferol (VIT D3) 25 MCG TABLET (1,000 UNITS) PO (09:54)
[2021-07-27] MEDS: Carvedilol 12.5 MG Tablet PO ×2 (09:54→16:53)
[2021-07-27] MEDS: Metolazone 2.5 MG Tablet PO (09:58)
[2021-07-27] MEDS: 0.9% Saline Lock 10 ML Syringe IV ×2 (09:59→17:46)
[2021-07-27 12:11] LABS: Bedside Glucose 131 mg/dL (70-110)
--- NOTE | 2021-07-27 14:17 | PN.HOSP_ITS ---
Subjective Subjective Patient reports that he is overall feeling better. He is now on room air with oxygen saturations at 94%. He was compliant with his BiPAP last evening. He states that his legs feel less swollen but his abdomen still feels a bit swollen. Objective Data Objective Data Vital Signs: Vital Signs Temp Pulse Resp BP Pulse Ox 98.1 F 63 16 133/68 H 94 07/27/21 09:51 07/27/21 09:51 07/27/21 09:51 07/27/21 09:51 07/27/21 12:20 Oxygen Flow Rate (L/min) 3 Oxygen Delivery Method Room Air Weight: 85.5 kg Body Mass Index (BMI) 30.4 Intake & Output: Intake and Output for Last 24 Hours 07/25/21 07/26/21 07/27/21 23:59 23:59 23:59 Intake Total 697 / 697 948 / 948 390 / 390 Output Total 2425 / 2425 1850 / 1850 1125 / 1125 Balance -1728 / -1728 -902 / -902 -735 / -735 Lab / Micro Data Result Diagrams: 07/27/21 08:00 07/27/21 08:00 Labs: Laboratory Results - last 24 hr 07/25/21 07:20: Diff Path Review Reviewed 07/26/21 16:24: POC Glucose 121 H 07/27/21 06:46: POC Glucose 116 H 07/27/21 08:00: WBC 10.7, RBC 3.67 L, Hgb 10.6 L, Hct 32.4 L, MCV 88.3, MCH 28.9, MCHC 32.7, RDW Std Deviation 43.4, RDW Coeff of Kiersten 13.3, Plt Count 276, MPV 11.1, Immature Gran % (Auto) 1.700 H, Neut % (Auto) 74.3 H, Lymph % (Auto) 12.3 L, [place] % (Auto) 9.7, Eos % (Auto) 1.3, Baso % (Auto) 0.7, Absolute Neuts (auto) 8.0 H, Absolute Lymphs (auto) 1.32, Nucleated RBC % 0 07/27/21 08:00: Sodium 137, Potassium 3.9, Chloride 104, Carbon Dioxide 25.0, Anion Gap 8, BUN 42 H, Creatinine 1.75 H, Estim Creat Clear Calc 30.26, Est GFR (MDRD) Af Amer 49 L, Est GFR (MDRD) Non-Af 40 L, BUN/Creatinine Ratio 24.0 H, Glucose 125 H, Calcium 9.2, Magnesium 2.0 07/27/21 08:00: PT 23.8 H, INR 2.2 07/27/21 11:39: POC Glucose 131 H Micro: Microbiology 07/25/21 07:25 Blood Culture (Wb) - Anticubital Right Blood Culture - Preliminary No growth in 48 hours. 07/25/21 07:20 Blood Culture (Wb) - Anticubital Left Blood Culture - Preliminary No growth in 48 hours. 07/25/21 12:25 Urine Catheter - [place] Urine Culture - Preliminary Culture exhibits no growth. 07/25/21 12:25 Urine Catheter - [place] Legionella Antigen - Final 07/25/21 12:25 Urine Catheter - [place] Streptococcus pneumoniae Antigen (M - Final 07/25/21 09:55 Mucosa - Nose Respiratory Panel (PCR) - Final 07/25/21 07:30 Nasal Secretion SARS-CoV-2 Antigen (Rapid) - Final Radiography Diagnostic Testing: Radiology Impression Echocardiogram 07/25/21 11:16 Interpretation Summary The estimated ejection fraction is 45 %. Moderate to severe restriction of AV Mild to moderate MR Mild to moderate TR To consider LHC/RHC/KRISS evaluation ____ Ordering Physician: Jolene Valentine Referring Physician: Howard Escobar Performed By: Salvatore Lemon RCS Physical Exam Narrative My evaluation took place in the ICU after the patient was transferred from the emergency department Const alert, oriented x3, no apparent distress and well nourished Constitutional Narrative: Overweight white male sitting up in bed on 2 L nasal cannula, appears comfortable, nontoxic, much more relaxed and comfortable than upon my evaluation yesterday General Appearance: cooperative Exam Limitations: no limitations Nutritional Appearance: overweight HEENT normocephalic, head/scalp atraumatic, hearing grossly normal bilaterally and moist oral mucous membranes Head and Scalp: normocephalic Resp normal respiratory effort, no retractions, no use of accessory muscles and clear to auscultation bilaterally Auscultation: Negative for crackles, rales, rhonchi or wheezes Cardio regular rate, regular rhythm, S1 normal heart sound, S2 normal heart sound, no murmurs, no rub, no gallops and no clicks GI normal to inspection, nondistended, normoactive bowel sounds, soft to palpation, non-tender and non-distended Extremity no clubbing, cyanosis or edema Extremity Narrative: Lower extremity edema has resolved Peripheral Pulses: Yes pulses 2+ throughout Neuro oriented x3, moves all extremities and no focal motor deficits Sensorium / Orientation: awake and alert Speech: speech normal Assessment & Plan Assessment/Plan (1) Sepsis: (2) Acute and chronic respiratory failure with hypoxia: (3) Leukocytosis: (4) Lactic acidosis: (5) Acute hypoxemic respiratory failure: (6) Hypokalemia: (7) Heart failure, systolic, with acute decompensation: PLAN: Acute hypoxic respiratory failure secondary to acute exacerbation of systolic and diastolic heart failure -Resolved -Responded well to diuresis -Covid PCR is negative -Covid rapid -Sputum culture able to be produced -We will discontinue antibiotics at this time -I-S and Pep therapy Leukocytosis -Resolved Lactic acidosis -resolved -5.4 on admission -Suspect related to hypoxia Acute on chronic decompensated systolic and diastolic heart failure/HFrEF -Last echocardiogram was November 2020 and showed an EF of 45% and biatrial enlargement with mild to moderate mitral valve insufficiency, mild to moderate tricuspid valve insufficiency and diffuse mild aortic calcification with no stenosis as well as right ventricular systolic pressures at 53 mmHg -Echocardiogram at this time shows an EF of 45% with moderate to severe restriction of the aortic valve, moderate to severe MR and mild to moderate TR -Continue IV Lasix as ordered but with aortic valve will need to monitor closely for too much afterload reduction as he will be preload dependent with aortic stenosis -We'll start low-dose metolazone at 2.5 mg daily -BNP on admission was markedly elevated as compared to previous data -Patient does have cardiomems device and follows with cardiology in [place] as an outpatient for this -Implanted 03/25/2021 -Awaiting cardiology input for today Aortic valve stenosis -Appears that this may be new and may be the etiology for his worsening heart failure although there is no significant murmur on exam -Cardiology has evaluated the patient and recommends outpatient follow-up with Dr. Turk after discharge -I do not see gradients or valve areas documented in the echo -May need KRISS in the future -Await further recommendations from cardiology Hypokalemia - resolved el NSTEMI type II -Elevation of high-sensitivity troponin -Suspect this is related to hypoxia and subendocardial ischemia -No new wall motion abnormality noted on echocardiogram -Cardiology is following Obstructive sleep apnea -Last sleep study done 09/19/2018 and recommendations were for bilevel at 06/05 -Would recommend continuation of BiPAP at night if patient is able to code to nasal cannula HFrEF secondary to ischemic cardiomyopathy -Continue carvedilol -Continue lisinopril -IV Lasix as above History of persistent atrial fibrillation -Continue beta-ceferino -Patient with bradycardia but this is at night while he is sleeping and is completely asymptomatic -No changes in medications at this time -Continue Coumadin -INR is therapeutic at 2.2 -Continue daily INR at this time given antibiotic use DM-2 -Hold home oral agents -Accu-Cheks before meals and at bedtime -SSI Chronic left bundle branch block -Stable BPH -Continue finasteride CKD stage IIIb -Serum creatinine appears to be stable with slight trend up but still within his baseline range -Serum creatinine has improved some with diuresis so I expect there is some component of cardiorenal syndrome -Continue to monitor -Avoid nephrotoxins as able -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
--- NOTE | 2021-07-27 14:17 | PCM.PN.CARD ---
Subjective Subjective Feeling better, symptoms of shortness of breath and abdominal swelling improving on the current treatment with diuretic. Objective Data Vital Signs: Vital Signs Temp Pulse Resp BP Pulse Ox 98.1 F 63 16 133/68 H 94 07/27/21 09:51 07/27/21 09:51 07/27/21 09:51 07/27/21 09:51 07/27/21 12:20 Oxygen Flow Rate (L/min) 3 Oxygen Delivery Method Room Air Weight: 188 lb 7.924 oz Body Mass Index (BMI) 30.4 Intake & Output: Intake and Output for Last 24 Hours 07/25/21 07/26/21 07/27/21 23:59 23:59 23:59 Intake Total 697 / 697 948 / 948 390 / 390 Output Total 2425 / 2425 1850 / 1850 1125 / 1125 Balance -1728 / -1728 -902 / -902 -735 / -735 Lab / Micro Data Result Diagrams: 07/28/21 06:35 07/28/21 06:35 Labs: Laboratory Results - last 24 hr 07/25/21 07:20: Diff Path Review Reviewed 07/26/21 16:24: POC Glucose 121 H 07/27/21 06:46: POC Glucose 116 H 07/27/21 08:00: WBC 10.7, RBC 3.67 L, Hgb 10.6 L, Hct 32.4 L, MCV 88.3, MCH 28.9, MCHC 32.7, RDW Std Deviation 43.4, RDW Coeff of Kiersten 13.3, Plt Count 276, MPV 11.1, Immature Gran % (Auto) 1.700 H, Neut % (Auto) 74.3 H, Lymph % (Auto) 12.3 L, [place] % (Auto) 9.7, Eos % (Auto) 1.3, Baso % (Auto) 0.7, Absolute Neuts (auto) 8.0 H, Absolute Lymphs (auto) 1.32, Nucleated RBC % 0 07/27/21 08:00: Sodium 137, Potassium 3.9, Chloride 104, Carbon Dioxide 25.0, Anion Gap 8, BUN 42 H, Creatinine 1.75 H, Estim Creat Clear Calc 30.26, Est GFR (MDRD) Af Amer 49 L, Est GFR (MDRD) Non-Af 40 L, BUN/Creatinine Ratio 24.0 H, Glucose 125 H, Calcium 9.2, Magnesium 2.0 07/27/21 08:00: PT 23.8 H, INR 2.2 07/27/21 11:39: POC Glucose 131 H Micro: Microbiology 07/25/21 07:25 Blood Culture (Wb) - Anticubital Right Blood Culture - Preliminary No growth in 48 hours. 07/25/21 07:20 Blood Culture (Wb) - Anticubital Left Blood Culture - Preliminary No growth in 48 hours. 07/25/21 12:25 Urine Catheter - [place] Urine Culture - Preliminary Culture exhibits no growth. 07/25/21 12:25 Urine Catheter - [place] Legionella Antigen - Final 07/25/21 12:25 Urine Catheter - [place] Streptococcus pneumoniae Antigen (M - Final Cardiology Labs/Tests 07/27/21 08:00: WBC 10.7, RBC 3.67 L, Hgb 10.6 L, Hct 32.4 L, MCV 88.3, MCH 28.9, MCHC 32.7, Plt Count 276, MPV 11.1, Immature Gran % (Auto) 1.700 H, Neut % (Auto) 74.3 H, Lymph % (Auto) 12.3 L, [place] % (Auto) 9.7, Eos % (Auto) 1.3, Baso % (Auto) 0.7, Absolute Neuts (auto) 8.0 H, Nucleated RBC % 0 07/27/21 08:00: Sodium 137, Potassium 3.9, Chloride 104, Carbon Dioxide 25.0, Anion Gap 8, BUN 42 H, Creatinine 1.75 H, Est GFR (MDRD) Af Amer 49 L, Est GFR (MDRD) Non-Af 40 L, BUN/Creatinine Ratio 24.0 H, Glucose 125 H, Calcium 9.2, Magnesium 2.0 07/27/21 08:00: PT 23.8 H, INR 2.2 Rhythm: EKG: ECHO: Stress Test: Cardiac Cath: PCI: CT Surgery: Holter monitor: EPS: PPM: CXR: Chest CT Scan: Radiography Diagnostic Testing: Radiology Impression Echocardiogram 07/25/21 11:16 Interpretation Summary The estimated ejection fraction is 45 %. Moderate to severe restriction of AV Mild to moderate MR Mild to moderate TR To consider LHC/RHC/KRISS evaluation Ordering Physician: Jolene Valentine Referring Physician: Howard Escobar Performed By: Salvatore Lemon RCS Physical Exam Narrative Patient alert orientated x3 Not in acute distress monitor and storage bin tender showed underlying normal sinus rhythm Cardiac examination S1-S2 is regular Chest examination diminished air entry bilateral with minimal bilateral basilar rales Admission abdomen soft. Examination lower extremity; no lower extremity edema, pedal pulses palpable Assessment & Plan Assessment/Plan (1) Presence of implantable pulmonary artery pressure and heart rate monitoring system: (2) Nonobstructive atherosclerosis of coronary artery: (3) Acute on chronic combined systolic (congestive) and diastolic (congestive) heart failure: (4) Heart failure, systolic, with acute decompensation: PLAN: 76-year-old patient with history of hypertrophic cardiomyopathy Has septal myomectomy in 2000 at [facility]. Patient had history of diabetes history of acute on chronic systolic and diastolic heart failure With implantable pulmonary artery pressure and heart rate monitoring system/CardioMEMS He also had leukocytosis with sepsis on this admission and he improved significantly on medical treatment Cardiovascular assessment and recommendation; 1. Continue current medical treatment 2. Follow-up with the primary home and family living professor Dr. Turk I discussed the cardiac care plan and recommendation with the medical team and the nursing staff
[2021-07-27 17:16] LABS: Bedside Glucose 115 mg/dL (70-110)
[2021-07-27] MEDS: hydrOXYzine 10 MG Tablet PO (21:11)
[2021-07-28] VITALS (7 sets, daily range): BP systolic 105–124; BP diastolic 64–72; PULSE 40–62; RESP 15–16; TEMP 36.1–36.7; O2SAT 94–97
[2021-07-28 06:26] LABS: Bedside Glucose 96 mg/dL (70-110)
[2021-07-28 06:49] LABS: Absolute Lymphocyte Count 1.89 X10^3/uL (0.83-4.51); Basophil# 0.07 X10^3/uL; Basophil% 0.7 % (0-1); Eosinophil# 0.17 X10^3/uL; Eosinophils% 1.7 % (0-5); Hematocrit 31.5 % (40-54); Hemoglobin 10.7 g/dL (13.0-16.5); Lymphocyte # 1.89 X10^3/ul (0.83-4.51); Lymphocyte % 18.6 % (19-41); Mean Corpuscular Hgb 29.8 pg (27.0-32.0); Mean Corpuscular Volume 87.7 fL (80-94); Mean Platelet Vol. 10.7 fl (6.2-12.0); Monocyte# 0.82 X10^3/uL; Monocyte% 8.1 % (0-10); NRBC Flagged by Analyzer 0 % (0-5); Neutrophil # 6.97 X10^3/uL (2.7-7.7); Neutrophil % 68.3 % (47-70); Platelet Count 272 K/mm3 (150-450); RBC Distribution Width CV 13.2 % (11.6-14.6); RBC Distribution Width SD 42.5 fl (35.1-43.9); Red Blood Count 3.59 M/mm3 (4.6-6.2); White Blood Count 10.2 K/mm3 (4.4-11.0)
[2021-07-28 06:56] LABS: International Normalized Ratio 2.1; Prothrombin Time (Protime)PT. 23.2 SECONDS (11.7-14.9)
[2021-07-28 07:15] LABS: Anion Gap 11 (5-15); BUN 47 mg/dL (7-18); BUN/Creat Ratio 24.1 RATIO (10-20); Chloride 101 mmol/L (98-107); Creatinine, Serum 1.95 mg/dL (0.70-1.30); EST Glomerular Filtration Rate 36 mL/min (>60); Est Glom Filt Rate - Afr Amer 43 mL/min (>60); Estimated Creatinine Clearance 27.16 ml/min; Glucose 98 mg/dL (74-106); Potassium 3.6 mmol/L (3.5-5.1); Sodium Level 137 mmol/L (136-145)
[2021-07-28] MEDS: Metolazone 2.5 MG Tablet PO (09:59)
[2021-07-28] MEDS: Carvedilol 12.5 MG Tablet PO (09:59)
[2021-07-28] MEDS: Cholecalciferol (VIT D3) 25 MCG TABLET (1,000 UNITS) PO (10:00)
[2021-07-28] MEDS: Finasteride 5 MG Tablet PO (10:01)
[2021-07-28] MEDS: Furosemide 40 MG Tablet PO (10:16)
--- NOTE | 2021-07-28 12:31 | PCM.DC.SUM ---
Providers Date of Admission: 07/25/21 Primary Care Physician: Dr. Howard Escobar, Consultations 07/25/21 11:16 Consult: Blow Torch Burner / Pulmonary Medicine Routine Consulting Provider: Pulmonary Medicine sushant [place] Reason for Consult: Acute hypoxic aspiratory failure EMERGENT Consult: No Notified: Yes Date Notified: 07/25/21 Time Notified: 11:28 Method of Notification: Text 07/25/21 13:46 Consult: Cardiology Routine Consulting Provider: Rossana Sandoval Reason for Consult: NSTEMI and CHF EMERGENT Consult: No Notified: Yes Date Notified: 07/25/21 Time Notified: 14:04 Method of Notification: Text Reason For Visit: ACUTE HYPOXIC RESPIRATORY FAILURE Diagnosis Discharge Diagnosis (1) Sepsis: Status: Acute Code(s): A41.9 - Sepsis, unspecified organism (2) Acute and chronic respiratory failure with hypoxia: Status: Deleted Code(s): J96.21 - Acute and chronic respiratory failure with hypoxia (3) Leukocytosis: Status: Acute Code(s): D72.829 - Elevated white blood cell count, unspecified (4) Lactic acidosis: Status: Acute Code(s): E87.2 - Acidosis (5) Acute hypoxemic respiratory failure: Status: Acute Code(s): J96.01 - Acute respiratory failure with hypoxia (6) Hypokalemia: Status: Acute Code(s): E87.6 - Hypokalemia (7) Heart failure, systolic, with acute decompensation: Status: Chronic Code(s): I50.23 - Acute on chronic systolic (congestive) heart failure Medications at Discharge Home Medications cyanocobalamin (vitamin B-12) 1,000 mcg IM Q30D 06/08/16 finasteride 5 mg tablet 5 mg PO DAILY tablet 12/19/20 glimepiride 1 mg tablet 1 mg PO DAILY tab 02/13/21 lisinopril 20 mg tablet 20 mg PO DAILY tab 03/11/21 warfarin 2.5 mg tablet 2.5 mg PO SUTUTHSA 03/11/21 warfarin 5 mg tablet 5 mg PO MOWEFR 03/11/21 furosemide 40 mg tablet 40 mg PO BID #180 tab 03/26/21 carvedilol 6.25 mg tablet 12.5 mg PO Q12H tab 05/24/21 cholecalciferol (vitamin D3) [Vitamin D3] 25 mcg PO DAILY 07/25/21 metolazone 2.5 mg PO DAILY #30 tab 07/28/21 Hospital Course Operations None Procedures 2-D Echocardiogram Summary of Care Provided Hospital Course: Mr. Osman is a 76-year-old male who presented to the emergency department at [facility] on 07/25/2021 with acute onset shortness of breath. At the time of admission he reported that he had not actually been feeling well for approximately 7 days prior to presentation. He reported some intermittent chills without fever, intermittent cough, and shortness of breath. He reported that he had been vaccinated for COVID-19 with the mother Terry a vaccine although he had not had his booster. He had no infectious exposures of which he was aware. He reported that his cardio mems device had not been working appropriately for approximately 5 days and the data uptake had not been working secondary to poor Wi-Fi issues. He reported that when hit was uploaded the person he talked to at the [employer] us[facility] office stated that the data did not look good although no adjustments have been made at that time. He reported that they did tell him to take an extra Lasix on Thanks but he did not make it till and presented to the hospital. He reported on the day of admission he felt very cold and asked his for a blanket and when she came back he was noticeably short of breath and stated he needed to come to the hospital. He reported compliance with his home nocturnal CPAP. His oxygen saturation on arrival was 51% and at that time he was placed on BiPAP at 40% with oxygen saturations improving to the mid 90s. He was tachycardic and afebrile on arrival. His blood pressure was stable but he did have tachypnea with respiratory rates in the 20s to 30s. His BC showed a marked leukocytosis with a white count of 23.2 and a left shift but was otherwise unremarkable. He did have a neutrophilia. He takes Coumadin at baseline and his INR was 2.3 on admission. His CMP showed mild hypokalemia with a potassium of 3.4 and an elevated BUN and creatinine which appear to be stable in his baseline. He had hyperglycemia with a blood sugar of 231 and a lactic acidosis with a lactate of 5.7. His bilirubin was mildly elevated at 1.4 but this appears to be stable as well. His troponin was obtained and found to be 99. A BNP was evaluated and found to be 372. His UA was unremarkable. His chest x-ray showed vascular congestion and interstitial edema with stable cardiomegaly and a CTA of his chest was performed and showed no PE but increased interstitial edema and bilateral airspace disease. His rapid Covid test was negative. A PCR of was obtained as well and was negative. Given his need for continuous BiPAP on admission he was admitted to the ICU. He was diuresed aggressively with IV Lasix and maintained on positive pressure ventilation. He was able to be weaned off BiPAP by the evening of the -3 to 4 L of nasal cannula. We were able to transfer him out of the ICU on the . He was transferred to PCU where we continued diuresis and I added metolazone for improved diuresis. A repeat echocardiogram was performed since it had been greater than 6 months since his previous echo and this showed an EF at 45% which is stable but commented on severe moderate to severe restriction of the aortic valve which is evidently new. He had no murmur on auscultation. He also had mild to moderate MR and mild to moderate TR. We were able to diurese almost 5-1/2 L during his hospitalization and his weight dropped from 85.4 kg to 82.8 kg on discharge. Cardiology agreed with the addition of metolazone and a prescription was sent for this at discharge. He was maintained on Coumadin during his hospitalization and his INR remained therapeutic. He was able to be discharged home on room air and was tested with ambulation as well and his sats were 98% with ambulation on room air. Cardiology reported that they would set up an evaluation with Dr. Turk soon and I recommended he follow-up with his PCP within 2 weeks. He was discharged home on 07/28/2021 in stable condition. 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 Obesity Physical Exam Const alert, oriented x3, no apparent distress and well nourished Constitutional Narrative: Elderly white male sitting up in bed at at the bedside on room air, appears comfortable, nontoxic, cardiology is at the bedside evaluating the patient as well General Appearance: cooperative, comfortable, well kempt and well developed Orientation / Consciousness: awake Exam Limitations: no limitations Nutritional Appearance: overweight HEENT normocephalic, head/scalp atraumatic, hearing grossly normal bilaterally and moist oral mucous membranes HEENT Narrative: Mallampati 3, no thrush Eyes PERRL, EOMs intact bilaterally and conjunctivae normal Eyes Narrative: No scleral icterus Neck no lymphadenopathy, supple, no JVD and no carotid bruits Neck Narrative: Trachea midline, no thyroid enlargement Resp normal respiratory effort, no retractions, no use of accessory muscles and clear to auscultation bilaterally Auscultation: Negative for crackles, rales, rhonchi or wheezes Cardio regular rate, regular rhythm, S1 normal heart sound, S2 normal heart sound, no murmurs, no rub, no gallops, no clicks and no JVD GI normal to inspection, nondistended, normoactive bowel sounds, soft to palpation, non-tender and non-distended Extremity Extremity Narrative: Trace bilateral lower extremity pitting edema with no cyanosis or clubbing Skin no wounds, skin turgor normal, no jaundice, no petechiae and no mottling Neuro oriented x3, CN's II-XII intact bilaterally, moves all extremities and no focal motor deficits Sensorium / Orientation: awake and alert Speech: speech normal Motor Exam: strength 5/5 throughout Psych affect normal Weight / BMI Weight Weight: 82.8 kg Body Mass Index (BMI) 30.4 ABG / Lab / Microbiology Data Result Diagrams: 07/28/21 06:35 07/28/21 06:35 Laboratory: Laboratory Results - last 24 hr 07/27/21 16:35: POC Glucose 115 H 07/28/21 06:06: POC Glucose 96 07/28/21 06:35: WBC 10.2, RBC 3.59 L, Hgb 10.7 L, Hct 31.5 L, MCV 87.7, MCH 29.8, MCHC 34.0, RDW Std Deviation 42.5, RDW Coeff of Kiersten 13.2, Plt Count 272, MPV 10.7, Immature Gran % (Auto) 2.600 H, Neut % (Auto) 68.3, Lymph % (Auto) 18.6 L, [place] % (Auto) 8.1, Eos % (Auto) 1.7, Baso % (Auto) 0.7, Absolute Neuts (auto) 7.0, Absolute Lymphs (auto) 1.89, Nucleated RBC % 0 07/28/21 06:35: Sodium 137, Potassium 3.6, Chloride 101, Carbon Dioxide 25.0, Anion Gap 11, BUN 47 H, Creatinine 1.95 H, Estim Creat Clear Calc 27.16, Est GFR (MDRD) Af Amer 43 L, Est GFR (MDRD) Non-Af 36 L, BUN/Creatinine Ratio 24.1 H, Glucose 98, Calcium 9.0 07/28/21 06:35: PT 23.2 H, INR 2.1 Microbiology: Microbiology 07/25/21 12:25 Urine Catheter - [place] Urine Culture - Final Culture exhibits no growth. 07/25/21 12:25 Urine Catheter - [place] Legionella Antigen - Final 07/25/21 12:25 Urine Catheter - [place] Streptococcus pneumoniae Antigen (M - Final 07/25/21 07:25 Blood Culture (Wb) - Anticubital Right Blood Culture - Preliminary No growth in 48 hours. 07/25/21 07:20 Blood Culture (Wb) - Anticubital Left Blood Culture - Preliminary No growth in 48 hours. 07/25/21 09:55 Mucosa - Nose Respiratory Panel (PCR) - Final 07/25/21 07:30 Nasal Secretion SARS-CoV-2 Antigen (Rapid) - Final D/C Instructions Discharge Diet: Low fat / Low cholesterol, 1800 Calorie Control Diet, 8 Cup Fluid Restriction and 2000 mg Sodium Diet Discharge Activity: Return to Normal Activity Meaningful Use Info Meaningful Use Diagnoses (Choose all that apply): CHF CHF JAYDE/ARB ordered at discharge?: Yes Documented LVEF (%): 45 Discharge Plan Admission Admit Date/Time: 07/25/21 09:50 Primary Reason for Your Visit: Acute hypoxic respiratory failure secondary to exacerbation of CHF Attending Provider: Jolene Valentine Primary Care Provider: Howard Escobar Consulting Providers: Rossana Sandoval ; Kurt Gaxiola ; Beni Mireles ; Victorina Teran TELERADIOLOGIST Discharge Orders/Prescriptions Prescriptions: New metolazone 2.5 mg Tablet 2.5 mg PO DAILY Qty: 30 RF: 0 Continued finasteride 5 mg tablet 5 mg PO DAILY RF: 0 lisinopril 20 mg tablet 20 mg PO DAILY RF: 0 Hold Instructions: Resume on 03/05/21. Hold until follow-up with nephrology. glimepiride 1 mg tablet 1 mg PO DAILY RF: 0 carvedilol 6.25 mg tablet 12.5 mg PO Q12H RF: 0 cyanocobalamin (vitamin B-12) 1,000 MCG/ML solution 1,000 mcg IM Q30D RF: 0 warfarin 5 mg tablet 5 mg PO MOWEFR RF: 0 warfarin 2.5 mg tablet 2.5 mg PO SUTUTHSA RF: 0 cholecalciferol (vitamin D3) [Vitamin D3] 25 mcg (1,000 unit) Capsule 25 mcg PO DAILY RF: 0 furosemide [Lasix] 40 mg tablet 40 mg PO BID Qty: 180 RF: 3 Referrals / Follow Up: Howard Escobar DO [Primary Care Provider] - Within 2 Weeks RosaleeJairo lópez MD [STAFF PHYSICIAN] - See Referral Note (As directed) Disposition Disposition (needs filled in before D/C Order can be placed): Home, Self Care Charges/Coding Visit Charges Inpatient E&M: 29160 Disch Hosp
[2021-07-28 12:55] LABS: Bedside Glucose 166 mg/dL (70-110)
== END 2021-07-28 13:59 | disposition home or self-care (01) | DRG 280 ==
LOC: ED 07:43 → ICU 10:17 → PCU 07-26 08:37
PROVIDERS: Admitting Provider Internal Medicine; Emergency Provider Emergency Medicine; PCP Family Medicine; Visit Provider Internal Medicine
DX: I13.0 Hypertensive heart and chronic kidney disease with heart failure and stage 1 through stage 4 chronic kidney disease, or unspecified chronic kidney disease (principal); I21.A1 Myocardial infarction type 2; I50.43 Acute on chronic combined systolic (congestive) and diastolic (congestive) heart failure; J96.01 Acute respiratory failure with hypoxia; I48.19 Other persistent atrial fibrillation; D63.1 Anemia in chronic kidney disease; I35.9 Nonrheumatic aortic valve disorder, unspecified; E11.22 Type 2 diabetes mellitus with diabetic chronic kidney disease; E11.65 Type 2 diabetes mellitus with hyperglycemia; E66.9 Obesity, unspecified; Z68.30 Body mass index [BMI] 30.0-30.9, adult; E78.5 Hyperlipidemia, unspecified; E87.6 Hypokalemia; F32.A Depression, unspecified; G47.33 Obstructive sleep apnea (adult) (pediatric); I25.10 Atherosclerotic heart disease of native coronary artery without angina pectoris; I25.5 Ischemic cardiomyopathy; I27.21 Secondary pulmonary arterial hypertension; I42.2 Other hypertrophic cardiomyopathy; I44.7 Left bundle-branch block, unspecified; M19.90 Unspecified osteoarthritis, unspecified site; N18.32 Chronic kidney disease, stage 3b; Z66 Do not resuscitate; Z87.01 Personal history of pneumonia (recurrent); Z79.01 Long term (current) use of anticoagulants; Z79.899 Other long term (current) drug therapy; Z87.891 Personal history of nicotine dependence
CPT/HCPCS: 36415; 71045; 71275; 80048; 80053; 81001; 82962; 83605; 83735; 83880; 84100; 84443; 84484; 85025; 85610; 85730; 87040; 87086; 87426; 87449; 87633; 87635; 87641; 93005; 93306; 94002; 94667; 97802; 99251; 99285; J7050; Q9957; Q9967; U0005; A4216; C8929; G0463; J1940; J3490; U0003

== ENCOUNTER → 2021-08-16 14:47 | Outpatient (CLI) | payer MEDICARE, BC, SELFPAY ==
[2021-08-16 16:30] LABS: Anion Gap 10 (5-15); BUN 65 mg/dL (7-18); BUN/Creat Ratio 33.3 RATIO (10-20); Calcium,Total 9.6 mg/dL (8.5-10.1); Chloride 102 mmol/L (98-107); Creatinine, Serum 1.95 mg/dL (0.70-1.30); EST Glomerular Filtration Rate 36 mL/min (>60); Est Glom Filt Rate - Afr Amer 43 mL/min (>60); Glucose 136 mg/dL (74-106); Potassium 3.9 mmol/L (3.5-5.1); Sodium Level 137 mmol/L (136-145)
== END ==
PROVIDERS: PCP Family Medicine; Referring Provider Internal Medicine Cardiovascular Disease; Visit Provider Internal Medicine Cardiovascular Disease
DX: I25.10 Atherosclerotic heart disease of native coronary artery without angina pectoris (principal); I25.2 Old myocardial infarction; I50.42 Chronic combined systolic (congestive) and diastolic (congestive) heart failure; J96.01 Acute respiratory failure with hypoxia; Z95.818 Presence of other cardiac implants and grafts
CPT/HCPCS: 36415; 80048

== ENCOUNTER → 2021-09-13 10:54 | Outpatient (CLI) | payer MEDICARE, BC, SELFPAY ==
--- NOTE | 2021-09-13 10:59 | ART_ITS ---
Reason For Study: Type 2 Diabetes Procedure A bilateral lower extremity continuous wave Doppler with analog waveform analysis and ankle brachial indexes. Left Segmental Pressures Left brachial= 130mmHg. Left posterior tibial artery = >254mmHg. Left dorsalis pedis artery = >254mmHg. Left digit = 91 mmHg. Right Segmental Pressures Right brachial= 145mmHg. Right posterior tibial artery = >254mmHg. Right dorsalis pedis artery = >254mmHg. Right digit = 97 mmHg. Indices The right ankle brachial index by the posterior tibial artery is NC. The right ankle brachial index by the dorsalis pedis is NC. The right digital-brachial index is 0.67. The left ankle brachial index by the posterior tibial artery is NC. The left ankle brachial index by the dorsalis pedis is NC. The left digital-brachial index is 0.63. VL/Ankle Brachial Index Interpretation Summary Biphasic Doppler waveforms are noted at ankle level on the right. Triphasic Dop pler waveforms are noted at ankle level on the left. Pulse-volume recordings appear diminished at digital level bilaterally. Resting ankle-brachial indices could not be determined on either s estrada due to the non- compressibility of the vasculature. Digital-brachial indices are mildly diminis hed bilaterally. There is evidence of arterial calcification at ankle level bilaterally. Arteria l flow could not be fully assessed at ankle level bilaterally. There is evidence of mildly diminish ed arterial flow at digital level bilaterally. Ordering Physician: JEFF MARRERO Referring Physician: JEFF MARRERO Performed By: Angi Addison RDTOMY/RVT
[2021-09-13 12:55] LABS: International Normalized Ratio 2.3; Prothrombin Time (Protime)PT. 24.9 SECONDS (11.7-14.9)
== END ==
PROVIDERS: PCP Family Medicine
DX: E11.51 Type 2 diabetes mellitus with diabetic peripheral angiopathy without gangrene (principal); E11.40 Type 2 diabetes mellitus with diabetic neuropathy, unspecified; I73.89 Other specified peripheral vascular diseases; I48.0 Paroxysmal atrial fibrillation
CPT/HCPCS: 36415; 85610; 93922

== ENCOUNTER 2021-09-17 16:16 | Outpatient (CLI) | payer MEDICARE, BC, SELFPAY ==
[2021-09-17 16:54] LABS: Absolute Lymphocyte Count 1.02 X10^3/uL (0.83-4.51); Absolute Neutrophil Count 14.1 X10^3/uL (2.0-7.7); Basophil# 0.06 X10^3/uL; Basophil% 0.4 % (0-1); Eosinophil# 0.09 X10^3/uL; Eosinophils% 0.6 % (0-5); Hemoglobin 12.6 g/dL (13.0-16.5); Lymphocyte # 1.02 X10^3/ul (0.83-4.51); Lymphocyte % 6.3 % (19-41); Mean Corp Hgb Conc 32.3 g/dL (32-36); Mean Corpuscular Hgb 29.3 pg (27.0-32.0); Mean Corpuscular Volume 90.7 fL (80-94); Mean Platelet Vol. 11.6 fl (6.2-12.0); Monocyte# 1.01 X10^3/uL; Monocyte% 6.2 % (0-10); NRBC Flagged by Analyzer 0 % (0-5); Neutrophil # 14.07 X10^3/uL (2.7-7.7); Neutrophil % 86.1 % (47-70); Platelet Count 214 K/mm3 (150-450); RBC Distribution Width CV 14.1 % (11.6-14.6); RBC Distribution Width SD 46.7 fl (35.1-43.9); White Blood Count 16.3 K/mm3 (4.4-11.0)
[2021-09-17 18:00] LABS: Anion Gap 8 (5-15); BUN 38 mg/dL (7-18); BUN/Creat Ratio 21.8 RATIO (10-20); Calcium,Total 9.4 mg/dL (8.5-10.1); Chloride 100 mmol/L (98-107); Creatinine, Serum 1.74 mg/dL (0.70-1.30); EST Glomerular Filtration Rate 41 mL/min (>60); Est Glom Filt Rate - Afr Amer 49 mL/min (>60); Glucose 120 mg/dL (74-106); Potassium 4.1 mmol/L (3.5-5.1); Sodium Level 136 mmol/L (136-145); T4 Free Direct 1.42 ng/dL (0.76-1.46); Thyroid Stim Hormone (TSH) 1.08 uIU/mL (0.358-3.74)
== END 2021-09-17 23:59 | disposition short-term general hospital (02) ==
LOC: LAB 16:19
PROVIDERS: PCP Family Medicine; Visit Provider Nurse Practitioner Family
DX: I48.11 Longstanding persistent atrial fibrillation (principal); I10 Essential (primary) hypertension; E78.5 Hyperlipidemia, unspecified; R53.83 Other fatigue; Z95.818 Presence of other cardiac implants and grafts
CPT/HCPCS: 36415; 80048; 84439; 84443; 85025

== ENCOUNTER 2021-09-26 14:37 | Outpatient (CLI) | payer MEDICARE, BC, SELFPAY ==
[2021-09-26 15:50] LABS: BUN 100 mg/dL (7-18); BUN/Creat Ratio 36.2 RATIO (10-20); Calcium,Total 9.7 mg/dL (8.5-10.1); Creatinine, Serum 2.76 mg/dL (0.70-1.30); EST Glomerular Filtration Rate 24 mL/min (>60); Est Glom Filt Rate - Afr Amer 29 mL/min (>60); Glucose 114 mg/dL (74-106); Potassium 4.2 mmol/L (3.5-5.1); Sodium Level 130 mmol/L (136-145)
[2021-09-26 15:51] LABS: Anion Gap 11 (5-15); Chloride 93 mmol/L (98-107)
== END 2021-09-26 23:59 | disposition short-term general hospital (02) ==
LOC: LAB 14:39
PROVIDERS: PCP Family Medicine; Visit Provider Nurse Practitioner Family
DX: I50.42 Chronic combined systolic (congestive) and diastolic (congestive) heart failure (principal); I42.8 Other cardiomyopathies
CPT/HCPCS: 36415; 80048

== ENCOUNTER 2021-10-09 11:56 | Outpatient (CLI) | payer MEDICARE, BC, SELFPAY ==
[2021-10-09 13:03] LABS: Anion Gap 9 (5-15); BUN 64 mg/dL (7-18); BUN/Creat Ratio 33.9 RATIO (10-20); Calcium,Total 8.9 mg/dL (8.5-10.1); Chloride 105 mmol/L (98-107); Creatinine, Serum 1.89 mg/dL (0.70-1.30); EST Glomerular Filtration Rate 37 mL/min (>60); Est Glom Filt Rate - Afr Amer 45 mL/min (>60); Glucose 133 mg/dL (74-106); Potassium 4.1 mmol/L (3.5-5.1); Sodium Level 136 mmol/L (136-145)
== END 2021-10-09 23:59 | disposition home or self-care (01) ==
LOC: LAB 11:57
PROVIDERS: PCP Family Medicine; Referring Provider Nurse Practitioner Family; Visit Provider Nurse Practitioner Family
DX: R06.00 Dyspnea, unspecified (principal); I42.8 Other cardiomyopathies; E78.5 Hyperlipidemia, unspecified; I12.9 Hypertensive chronic kidney disease with stage 1 through stage 4 chronic kidney disease, or unspecified chronic kidney disease; N18.9 Chronic kidney disease, unspecified
CPT/HCPCS: 36415; 80048

== ENCOUNTER 2021-11-22 10:43 | Emergency (ER) | payer MEDICARE, BC, SELFPAY ==
[2021-11-22 10:46] VITALS: BP 145/66; PULSE 75; RESP 17; TEMP 36.1; O2SAT 95; BMI 29.8
--- NOTE | 2021-11-22 11:15 | RAD_ITS ---
STUDY: X-RAY - RIGHT HAND REASON FOR EXAM: Male, 76 years old. Atraumatic pain. TECHNIQUE: 4 view(s) of the hand. COMPARISON: None. FINDINGS: Normal radiocarpal articulation. Normal distal radioulnar joint. Normal visualized carpal bones. Normal carpal articulations Normal carpometacarpal articulation of the thumb. Normal second through fifth carpometacarpal joints. Normal metacarpi. Normal metacarpophalangeal joint of the thumb. Normal interphalangeal joint of the thumb. Normal proximal and distal phalanges of the thumb. Normal metacarpophalangeal joints of the second through fifth fingers. There is diffuse articular joint space narrowing of the proximal and distal interphalangeal joints of the second through fifth fingers, but without erosive changes or periarticular soft tissue swelling. Normal phalanges of the second through fifth fingers. Soft tissue swelling. Vascular calcification. 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 Electronically Signed: Joel Fuentes MD at 11:27 EDT ,
--- NOTE | 2021-11-22 12:03 | EDS_ITS ---
HPI <RG Dent - Last Filed: 11/22/21 12:18> History of Present Illness Chief Complaint: Upper Extremity Injury Narrative Narrative: 76-year-old male with history of hypertension, diabetes, hyperlipidemia presents to the emergency department with 2 weeks of right hand pain. Patient states the pain is worse at night, he feels it is an aching pain. The pain radiates into his fingers. He does have full range of motion of feels it is weak sometimes. Patient denies any known injury, denies any fevers or chills nausea or vomiting. Denies any numbness or tingling. He did see his PCP and the PCP thought it was arthritis however he not get an x-ray. Patient is requesting an x-ray today. [facility] <RG Dent - Last Filed: 11/22/21 12:18> [facility] Medical History Anemia due to stage 3b chronic kidney disease Back pain BPH (benign prostatic hyperplasia) CHF NYHA class III Chronic combined systolic and diastolic CHF (congestive heart failure) Chronic kidney disease, stage 3b Constipation CPAP (continuous positive airway pressure) dependence Diabetes Diabetes Elevated troponin (01/2021) Essential (primary) hypertension History of non-ST elevation myocardial infarction (NSTEMI) (07/25/21) History of tobacco use HLD (hyperlipidemia) Hypertrophic cardiomyopathy Hypokalemia Lactic acidosis Left bundle branch block Leukocytosis Longstanding persistent atrial fibrillation 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 Obesity Obesity (BMI 30.0-34.9) KIMBERLY (obstructive sleep apnea) Pneumonia Presence of implantable pulmonary artery pressure and heart rate monitoring system (03/25/21) Renal infarct Secondary pulmonary arterial hypertension Sepsis Sleep apnea Umbilical hernia Home Medications cyanocobalamin (vitamin B-12) 1,000 mcg IM Q30D 06/08/16 [History Last Taken 01/29/19] finasteride 5 mg tablet 5 mg PO DAILY tablet 12/19/20 [History Last Taken 12/22/20] glimepiride 1 mg tablet 1 mg PO DAILY tab 02/13/21 [History Last Taken Unknown] warfarin 2.5 mg tablet 2.5 mg PO SUTUTHSA 03/11/21 [History Last Taken Unknown] warfarin 5 mg tablet 5 mg PO MOWEFR 03/11/21 [History Last Taken Unknown] cholecalciferol (vitamin D3) [Vitamin D3] 25 mcg PO DAILY 07/25/21 [History Last Taken Unknown] carvedilol 12.5 mg tablet 12.5 mg PO BID #60 tab 09/17/21 [Rx Last Taken Unknown] furosemide 40 mg tablet 40 mg PO BID #90 tab 10/07/21 [Rx Last Taken Unknown] lisinopril 20 mg tablet 20 mg PO DAILY #90 tab 11/19/21 [Rx Last Taken Unknown] hydrocodone-acetaminophen 1 tab PO Q6H PRN 3 Days #10 tab 11/22/21 [Rx Last Taken Unknown] Allergy/AdvReac Type Severity Reaction Status Date / Time rivaroxaban [From Xarelto] Allergy Bleeding Verified 11/22/21 10:44 metoprolol AdvReac bradycardia Verified 11/22/21 10:44 Family History Father Heart disease Sister Heart disease Brother Heart disease Other Arthritis CVA (cerebral vascular accident) Depression Mental disorder Surgical History History of appendectomy History of left heart catheterization (02/19/21) History of transurethral resection of prostate (01/2019) History of ventricular septal myectomy (2000) Hx of umbilical hernia repair Social History Smoking Status: Former smoker how long ago did patient quit smokin years ago 0.25ppd second hand exposure: Yes alcohol intake: never caffeine: Yes Type: coffee Number of servings: 1 what type of physical activity do you participate in: other details: treadmill frequency: daily ROS <RG Dent - Last Filed: 11/22/21 12:18> ROS ED ROS Narrative Constitutional: Negative for fever, chills, weight loss or gain, weakness Eyes: Negative for vision loss, vision change, double vision ENT: Negative for any hearing changes, ringing in the ears, dizziness, discharge, pain Nose: Negative for any congestion, runny nose, sinus pain, allergies Throat: Negative for any sore throat hoarseness, voice changes, Cardiovascular: Negative for any chest pain, tightness, palpitations, racing heartbeat Respiratory: Negative for any coughs, sputum production, coughing, hemoptysis, shortness of breath, shortness of breath on exertion, Gastrointestinal: Negative for any abdominal pain, nausea, vomiting, diarrhea, constipation, blood in stool, blood in vomit : Negative for any urinary frequency, incontinence, dysuria, retention, blood in urine Muscle skeletal: Negative for any muscle joint pain, stiffness, myalgias, arthralgias, neck pain, back pain. Positive right hand pain Neurological: Negative for any headache, head injury, dizziness, syncope, numbness or tingling Skin: Negative for any rashes, lumps, itching, abrasions, lacerations Psychiatric: Negative for any depression, anxiety, stress, suicidal ideation, homicidal ideation Hematologic: Negative for any easy bruising, excessive bruising, easy bleeding Allergies: Negative for any eczema, hives, rash EXAM <RG Dent - Last Filed: 11/22/21 12:18> Physical Exam Const Vital Signs: 11/22/21 10:46 Temperature 97.0 F L Temperature Source Temporal Pulse Rate 75 Respiratory Rate 17 Blood Pressure 145/66 H Blood Pressure Mean 92 Pulse Ox 95 Oxygen Delivery Method Room Air Positive well nourished and well developed General Appearance ED: well developed HEENT normocephalic and atraumatic Eyes PERRL and EOMs intact bilaterally Neck full ROM and supple Chest Wall inspection of chest normal and palpation of chest normal Resp normal respiratory effort and clear to auscultation bilaterally Cardio regular rate, regular rhythm and no murmurs GI non-tender Palpation: soft Back/Spine no CVA tenderness Extremity normal to inspection Extremity Narrative: Patient does have pain on palpation to the anterior and posterior aspects around the metacarpals. Negative for any trauma, redness, e cchymosis. Patient does have some swelling to the PIP joint of the fourth finger. +2 radial pulse. Neurologically focally intact. Neuro oriented x3 and no sensory deficits noted Sensorium / Orientation: alert Psych mental status grossly normal Skin Rashes: no rashes [facility] <RG Dent - Last Filed: 11/22/21 12:18> [facility] Narrative Medical decision making narrative: Patient appears well, patient appears nontoxic, vital signs are stable. Patient presents the emergency department with 2 weeks of ongoing right hand pain without any injury. Patient's physical examination is consistent with arthritis, patient did receive an x-ray, this did show joint space narrowing and osteoarthritis of the proximal distal inte rphalangeal joints. Arthritis does explain the patient's symptoms. Patient will be given a short course of [place] for the severe pain at nighttime. Patient will follow closely with his PCP. Patient struck to ice, rest to perform gentle stretching. Patient struck to return for any worsening symptoms. Lab Data Attestation: I reviewed the patient's lab results. 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 Electronically Signed: Joel Fuentes MD at 11:27 EDT , <Dr. Isrrael Colon, DO - Last Filed: 11/22/21 16:23> [facility] MDM Narrative Medical decision making narrative: Patient seen in conjunction with physician orthotic assistant. I agree with assessment and plan. X-ray of the right hand on my interpretation shows no acute fracture or subluxation. There is some degenerative changes. The radiologist does agree. Patient will be given a short supply of pain medication taken follow-up with his PCP. Discharge Plan Triage Chief Complaint: Upper Extremity Injury ED Midlevel Provider: Guy Hernandez ED Provider: Guy Hernandez Dx/Rx/DC Orders Clinical Impression: Arthritis Instructions: Arthritis: Exercise Prescriptions: New hydrocodone-acetaminophen 5-325 mg tablet 1 tab PO Q6H PRN (Reason: arthritis) 3 Days Qty: 10 RF: 0 No Action finasteride 5 mg tablet 5 mg PO DAILY RF: 0 glimepiride 1 mg tablet 1 mg PO DAILY RF: 0 carvedilol [Coreg] 12.5 mg tablet 12.5 mg PO BID Qty: 60 RF: 11 cyanocobalamin (vitamin B-12) 1,000 MCG/ML solution 1,000 mcg IM Q30D RF: 0 warfarin 5 mg tablet 5 mg PO MOWEFR RF: 0 warfarin 2.5 mg tablet 2.5 mg PO SUTUTHSA RF: 0 cholecalciferol (vitamin D3) [Vitamin D3] 25 mcg (1,000 unit) Capsule 25 mcg PO DAILY RF: 0 furosemide [Lasix] 40 mg tablet 40 mg PO BID Qty: 90 RF: 3 lisinopril 20 mg tablet 20 mg PO DAILY Qty: 90 RF: 3 Hold Instructions: Resume on 03/05/21. Hold until follow-up with nephrology. Primary Care Provider: Howard Escobar Referrals: Howard Escobar DO [Primary Care Provider] - Activity Restrictions/Additional Instructions: Please rest the extremity, ice and heat. Please use your pain medicine for nighttime use it can make you drowsy. Print Language: Swedish Disposition Disposition: Home, Self Care Discharge Date/Time: 11/22/21 12:27
== END 2021-11-22 12:27 | disposition home or self-care (01) ==
PROVIDERS: Emergency Provider Nurse Practitioner; PCP Family Medicine; Visit Provider Nurse Practitioner
DX: M19.041 Primary osteoarthritis, right hand (principal); I13.0 Hypertensive heart and chronic kidney disease with heart failure and stage 1 through stage 4 chronic kidney disease, or unspecified chronic kidney disease; I50.42 Chronic combined systolic (congestive) and diastolic (congestive) heart failure; I42.2 Other hypertrophic cardiomyopathy; I27.21 Secondary pulmonary arterial hypertension; E11.22 Type 2 diabetes mellitus with diabetic chronic kidney disease; I48.11 Longstanding persistent atrial fibrillation; N18.32 Chronic kidney disease, stage 3b; E78.5 Hyperlipidemia, unspecified; Z87.891 Personal history of nicotine dependence; I25.10 Atherosclerotic heart disease of native coronary artery without angina pectoris; N40.0 Benign prostatic hyperplasia without lower urinary tract symptoms; I25.2 Old myocardial infarction; Z86.19 Personal history of other infectious and parasitic diseases; E66.9 Obesity, unspecified; G47.33 Obstructive sleep apnea (adult) (pediatric); Z87.01 Personal history of pneumonia (recurrent); Z79.01 Long term (current) use of anticoagulants; Z79.899 Other long term (current) drug therapy; Z68.29 Body mass index [BMI] 29.0-29.9, adult
CPT/HCPCS: 73130; 99282

== ENCOUNTER → 2022-01-13 | Outpatient (CLI) | payer MEDICARE, BC, SELFPAY ==
[2022-01-13 11:28] LABS: Absolute Lymphocyte Count 1.19 X10^3/uL (0.83-4.51); Absolute Neutrophil Count 5.7 X10^3/uL (2.0-7.7); Basophil# 0.05 X10^3/uL; Basophil% 0.6 % (0-1); Eosinophil# 0.12 X10^3/uL; Eosinophils% 1.5 % (0-5); Hematocrit 36.2 % (40-54); Hemoglobin 11.7 g/dL (13.0-16.5); Lymphocyte # 1.19 X10^3/ul (0.83-4.51); Lymphocyte % 15.2 % (19-41); Mean Corp Hgb Conc 32.3 g/dL (32-36); Mean Corpuscular Hgb 28.8 pg (27.0-32.0); Mean Corpuscular Volume 89.2 fL (80-94); Monocyte# 0.72 X10^3/uL; Monocyte% 9.2 % (0-10); NRBC Flagged by Analyzer 0 % (0-5); Neutrophil # 5.66 X10^3/uL (2.7-7.7); Neutrophil % 72.4 % (47-70); Platelet Count 249 K/mm3 (150-450); RBC Distribution Width CV 14.2 % (11.6-14.6); RBC Distribution Width SD 46.6 fl (35.1-43.9); Red Blood Count 4.06 M/mm3 (4.6-6.2); White Blood Count 7.8 K/mm3 (4.4-11.0)
[2022-01-13 11:50] LABS: Anion Gap 11 (5-15); BUN 63 mg/dL (7-18); BUN/Creat Ratio 29.2 RATIO (10-20); Calcium,Total 9.2 mg/dL (8.5-10.1); Chloride 102 mmol/L (98-107); Creatinine, Serum 2.16 mg/dL (0.70-1.30); EST Glomerular Filtration Rate 32 mL/min (>60); Est Glom Filt Rate - Afr Amer 38 mL/min (>60); Glucose 211 mg/dL (74-106); Sodium Level 137 mmol/L (136-145)
== END | disposition home or self-care (01) ==
LOC: LAB 10:52
PROVIDERS: PCP Family Medicine; Referring Provider Physician Assistant Medical; Visit Provider Physician Assistant Medical
DX: R06.00 Dyspnea, unspecified (principal); R05.9 Cough, unspecified
CPT/HCPCS: 36415; 80048; 85025

== ENCOUNTER → 2022-03-11 | Outpatient (CLI) | payer MEDICARE, BC, SELFPAY ==
[2022-03-11 12:43] LABS: Prothrombin Time (Protime)PT. 22.4 SECONDS (11.7-14.9)
== END | disposition home or self-care (01) ==
LOC: LAB 11:29
PROVIDERS: PCP Family Medicine; Visit Provider Family Medicine
DX: I48.0 Paroxysmal atrial fibrillation (principal)
CPT/HCPCS: 36415; 85610

== ENCOUNTER → 2022-03-20 | Outpatient (CLI) | payer MEDICARE, BC, SELFPAY | END | disposition home or self-care (01) | LOC: PSN 08:42 | PROVIDERS: PCP Family Medicine; Referring Provider Internal Medicine Cardiovascular Disease; Visit Provider Internal Medicine Cardiovascular Disease | DX: I48.11 Longstanding persistent atrial fibrillation (principal) | CPT/HCPCS: 93225; 93226 ==

== ENCOUNTER → 2022-05-31 | Outpatient (CLI) | payer MEDICARE, BC, SELFPAY | END | disposition home or self-care (01) | LOC: LABSPEC 11:17 | PROVIDERS: PCP Family Medicine; Visit Provider Surgery | DX: K58.9 Irritable bowel syndrome, unspecified (principal); R19.7 Diarrhea, unspecified | CPT/HCPCS: 83630; 87506 ==

== ENCOUNTER 2022-06-04 12:18 | Day surgery (SDC) | payer MEDICARE, BC, SELFPAY ==
[2022-06-04] VITALS (8 sets, daily range): BP systolic 74–118; BP diastolic 39–78; PULSE 65–98; RESP 16–18; TEMP 35.7–36.4; O2SAT 97–100; BMI 29.7
--- NOTE | 2022-06-04 | COLBX_PTH ---
PATIENT: ANTWAN GE LOC: [facility] U#:[id number] AGE/SX: 77/M ROOM: RE06/04/[address]: Dr. Marlyn Dockery MD : 1945 BED: DIS: 06/04/2022 SPEC #: [id number] RECD: 06/04/22 14:34 STATUS: RAGHU REWei #: [id number] MARINA: 06/04/22 00:[address]: Marlyn Dockery DEPT: SURGICAL PATHOLOGY RECD BY: Jordan Jonas ENTERED: 06/05/22 08:48 SP TYPE: COLON BX OTHR DR: Dr. Howard Escobar, DO Tissues: A - Cecum, NOS B - COLON BIOPSY C - Ascending colon D - Descending colon E - Rectum, NOS Procedures: Surgery Specimen Level IV HEADER OPERATION: Colonoscopy (MAC) PRE-OP DIAGNOSIS: Diarrhea, presence of implantable pulmonary artery pressure and heart rate monitoring system TISSUE SUBMITTED: A ? Cecal polyp biopsy, B ? Random biopsies, C ? Ascending colon polyp biopsy, D ? Descending colon polyp biopsy, E ? Rectum polyp biopsy MICROSCOPIC DIAGNOSIS A. Cecal polyp, biopsy: Fragments of tubular adenoma. B. Colon, random biopsy: Fragments of colonic mucosa with pigment laden macrophages, consistent with melanosis coli. C. Ascending colon polyp, biopsy: Tubular adenoma. Fragments of fecal material. D. Descending colon polyp, biopsy: Fragments of tubular adenoma. E. Rectum polyp, biopsy: Hyperplastic polyp. SJ:eladio 06/06/2022 MICROSCOPIC DESCRIPTION Slides are reviewed. GROSS DESCRIPTION A - Received in fixative is one container labeled with the patient's name and designated cecum polyp biopsy. The specimen consists of multiple irregular fragments of light gomez soft tissue that in aggregate measure 0.8 x 0.3 x 0.1 cm. The specimen is totally submitted in one cassette. B - Received in fixative is one container labeled with the patient's name and designated random biopsy. The specimen consists of multiple irregular fragments of light gomez soft tissue that in aggregate measure 1.5 x 0.4 x 0.1 cm. The specimen is totally submitted in one cassette. C - Received in fixative is one container labeled with the patient's name and designated ascending colon polyp biopsy. The specimen consists of multiple irregular fragments of light gomez soft tissue mixed with fecal material that in aggregate measure 1 x 0.1 x 0.1 cm. The specimen is totally submitted in one cassette. D - Received in fixative is one container labeled with the patient's name and designated descending colon polyp biopsy. The specimen consists of multiple irregular fragments of light gomez soft tissue that in aggregate measure 1 x 0.3 x 0.1 cm. The specimen is totally submitted in one cassette. E - Received in fixative is one container labeled with the patient's name and designated rectum polyp biopsy. The specimen consists of one irregular fragment of light gomez soft tissue that measures 0.4 x 0.3 x 0.1 cm. The specimen is totally submitted in one cassette. / SJ:rg 06/05/2022 TC:1 CPT: 95662 x5
--- NOTE | 2022-06-04 12:39 | PCM.HP.BLA ---
History and Physical Date of Admission: 06/04/22 Date of Service:? 05/30/22 MR#: [id number] Acct: [id number] Name:ANTWAN TREVINO Rep #: [id number] : 1945 ? ? Provider: Dr. Marlyn Dockery MD Age/Sex:? 77/M ? ? [place] [facility] [place] Status: Signed Intake Vital Signs ? 05/29/2216:58 05/30/2214:47 Height 5 ft 5 in 5 ft 5 in Weight: ? 184 lb BMI ? 30.6 BP ? 146/75 H Blood Pressure Location ? Rt brachial Position ? Sitting Respiration ? 17 Pulse ? 80 Pulse Source ? Monitor Temp ? 97.3 F L Temp Source ? Temporal Pulse Oximetry (%) ? 94 Oxygen Delivery Method ? room air Intake Visit Reasons:?diarrhea/ colonoscopy Chief Complaint: Diarrhea Hop Grower Required: No Is patient in pain?: No Allergies rivaroxaban [From Xarelto] Allergy (Verified 05/30/22 14:48) Bleedingmetoprolol Adverse Reaction (Verified 05/30/22 14:48) bradycardia Medications cyanocobalamin (vitamin B-12) 1,000 mcg/mL injection solution 1,000 mcg IM Q30D supplement 06/08/16 [History Confirmed 05/30/22] finasteride 5 mg tablet 5 mg PO DAILY prostate 12/19/20 [History Confirmed 05/30/22] glimepiride 1 mg tablet 1 mg PO DAILY diabetes 02/13/21 [History Confirmed 05/30/22] warfarin 2.5 mg tablet 2.5 mg PO SUTUTHSA blood thinner 03/11/21 [History Confirmed 05/30/22] warfarin 5 mg tablet 5 mg PO MOWEFR blood thinner 03/11/21 [History Confirmed 05/30/22] cholecalciferol (vitamin D3) 25 mcg (1,000 unit) capsule (Vitamin D3) 25 mcg PO DAILY vitamin 07/25/21 [History Confirmed 05/30/22] hydrocodone-acetaminophen 5-325mg 5mg-325mg 1 tab PO Q6H PRN arthritis 3 days #10 tabs 11/22/21 [Rx Confirmed 05/30/22] prednisone 5 mg tablet 5 mg PO DAILY 12/30/21 [History Confirmed 05/30/22] lisinopril 10 mg tablet 10 mg PO DAILY #90 tabs 03/11/22 [Rx Confirmed 05/30/22] furosemide 40 mg tablet (Lasix) 40 mg PO BID #180 tabs 03/24/22 [Rx Confirmed 05/30/22] carvedilol 6.25 mg tablet 6.25 mg PO BID #60 tabs 04/22/22 [Rx Confirmed 05/30/22] peg 3350-electrolytes 236 gram-22.74 gram-6.74 gram-5.86 gram solution 240 ml PO Q15-20M #4,000 mL 05/30/22 [Rx Confirmed 05/30/22] PFSH Medical History? Abnormal ankle brachial index (LOKI) Anemia due to stage 3b chronic kidney disease Back pain BPH (benign prostatic hyperplasia) CHF NYHA class III Chronic combined systolic and diastolic CHF (congestive heart failure) Chronic kidney disease, stage 3b Claudication Constipation CPAP (continuous positive airway pressure) dependence Diabetes Elevated troponin (01/2021) Essential (primary) hypertension Gout History of non-ST elevation myocardial infarction (NSTEMI) (07/25/21) History of tobacco use HLD (hyperlipidemia) Hypertrophic cardiomyopathy Hypokalemia Joint pain Lactic acidosis Left bundle branch block Leukocytosis Longstanding persistent atrial fibrillation 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 Obesity (BMI 30.0-34.9) KIMBERLY (obstructive sleep apnea) Presence of implantable pulmonary artery pressure and heart rate monitoring system (03/25/21) Renal infarct Secondary pulmonary arterial hypertension Sleep apnea Umbilical hernia Surgical History?(Updated 05/30/22 @ 14:47 by Jeniffer Thursday) History of appendectomy History of cataract extraction History of left heart catheterization (02/19/21) History of transurethral resection of prostate (01/2019) History of ventricular septal myectomy (2000) Hx of umbilical hernia repair Family History? Father Heart diseaseSister Heart diseaseBrother Heart diseaseOther Arthritis CVA (cerebral vascular accident) Depression Mental disorder Social History? Smoking Status:? Former smoker how long ago did patient quit smoking:? 50 years ago 0.25ppd second hand exposure:? Yes alcohol intake:? never caffeine:? Yes Type: coffee Number of servings: 1 what type of physical activity do you participate in:? other details: treadmill frequency:? daily HPI HPI HPI: 77 y/o M presents to office due to diarrhea x 1 month.? Pt states he was in [place] a month ago and that is when the diarrhea started stated it was watery.? Pt did also have a cold after coming home and then the diarrhea continued after the cold was resolved.? Pt states it is mostly loose and has gone 4x this AM. Pt denies any N/V, accompanied him and she denied any diarrhea.? Pt last colonoscopy was October 2020 with EGD; random bx at that time were neg and H.pylori and duodenum bx were negative as well per provider notes.? Pt is also concerned that his previous hernia which was repaired with [place] [address] Alfaro has reoccurred- denies pain. ROS General General: Yes weight change; No appetite, fatigue, colon cancer, breast cancer or weakness HEENT HEENT: Yes eye surgery; No difficulty swallowing, eye injury, swollen glands or hoarseness Endo Endocrine: Yes diabetes mellitus; No thyroid disease, thyroid cancer, Hair loss, heat intolerance or cold intolerance Skin Skin: No rash or changing moles Musc Musculoskeletal: Yes arthritis and gout; No back problems, rheumatoid arthritis or joint pain Cardio Cardiovascular: Yes heart disease, atrial fibrillation, high blood pressure, heart attack and heart stent; No murmur, pacemaker, palpitations, shortness of breat with exertion or chest pain Psych Psychiatric: No depression, anxiety or hearing voices Resp Respiratory: Yes shortness of breath, Yes sleep apnea, No cough, No COPD, No asthma, No emphysema and No wheezing Gastro Gastrointestinal: No abdominal pain, No nausea or vomiting, Yes diarrhea, No constipation, No blood in stool, No acid reflux, No hemorrhoids, No ulcers, No gallbladder problem and No black,tarry stools Leonard Hematologic: Yes blood thinners, No blood disorders, No bleeding, No anemia and No blood clots Neuro Neurologic: No system reviewed and no additional complaints, except as documented, No as per HPI, No abnormal gait, No abnormal hearing, No abnormal movements, No abnormal speech, No behavioral changes, No burning sensations, No confusion, No convulsions, No disequilibrium, No dizziness, No localized weakness, No frequent falls, No headache(s), No lack of coordination, No loss of vision, No memory loss, No numbness, No other visual disturbances, No radicular pain, No restless legs, No sensory deficit, No syncope, Yes tingling (R hand), No tremor(s), No weakness and No other Exam Const General: cooperative, healthy appearing and comfortable [facility] Head: normal to inspection Resp Effort & Inspection: normal respiratory effort Cardio Rate: regular rate GI Inspection: non-distended Palpation: soft, no guarding, hernia ( small hernia at supraumb-easily reduced on own, large diastasis) and nontender Skin Other: sebaceous cyst at sternum--open, not infected, contents expressed Neuro General: patient oriented x3 Extrem General: no clubbing, cyanosis or edema Psych Affect: normal affect Assessment and Plan Assessment and Plan (1) Diarrhea: ?Status:?Acute (2) Presence of implantable pulmonary artery pressure and heart rate monitoring system: ?Status:?Chronic ?Comment: CardioMEMS HF System implanted 03/25/21 Additional Comments: 30 day CardioMems report shows PA diastolic pressures ranging from 12 to 17 mmHG with goal 16 mmHG. PA diastolic has been within range of +/-5 mmHG. No change in medical regimen. Patient continues to take Lasix 40mg twice daily and encouraged to continue low sodium diet. Patient notices if consumes high sodium foods bloating, pants tighter, SOB and leg edema. He has been instructed to take an extra dose of Lasix when that occurs. (3) Longstanding persistent atrial fibrillation: ?Status:?Chronic (4) Anticoagulant long-term use: ?Status:?Acute ? ? ? Orders: Orders Colonoscopy 05/30/22 ? ? ENTERIC PATHOGEN PANEL STOOL 05/31/22 K58.9 - Irritable bowel syndrome without diarrhea, R19.7 - Diarrhea, unspecified ? Stool Lactoferrin/WBC 05/31/22 K58.9 - Irritable bowel syndrome without diarrhea ? Medications: New peg 3350-electrolytes 236-22.74-6.74 -5.86 gram ?? until fecal effluent is clear 240 mL? PO Q15-20M 4,000 mL 0RF ? ? Plan Patient will plan for stool studies for the diarrhea has been ongoing for a month.? As well as schedule colonoscopy with random biopsies.? Patient was agreeable plan.? Patient's recent creatinine of 2.13 will plan for GoLytely for the prep.? We will have patient hold his Coumadin for 5 days. Discussed with patient that larger area of his abdomen is actually a diastasis and not a hernia, he does have a small hernia which reduces on its own.? Pt currently not interested in repair. I have discussed the above with the patient. I have offered the patient colonoscopy for evaluation. I have explained the risks/benefits of the procedure and described the procedure.? I have discussed the risks with the patient, including but not limited to:? infection, bleeding, perforation of the GI tract requiring emergency surgery, inability to complete the procedure, injury to any internal organs, complications of anesthesia, etc. - the patient understands and agrees to proceed. I have answered all the patient's questions to the patient's satisfaction and the patient has no further questions. The patient has been given instructions for the colon cleansing preparation.? 1 day of clears, GoLytely?sent to pharmacy. Marlyn Dockery M.D. Pager: [phone] [facility] [address] [place] [address], [address] [place] [address] Office: [phone] Coding Level of Care Code Off vis,new,level 4 Diagnoses Diarrhea? R19.7 Presence of implantable pulmonary artery pressure and heart rate monitoring system? Z95.818 Longstanding persistent atrial fibrillation? I48.11 Anticoagulant long-term use? Z79.01 06/01/22 1333 <Electronically signed by Marlyn Dockery MD> Date Marlyn Dockery MD
[2022-06-04] MEDS: Lactated Ringers 1,000 ML 15 ML IV (13:14)
[2022-06-04 13:35] LABS: Bedside Glucose 115 mg/dL (74-106)
[2022-06-04 13:35] LABS: INR Fingerstick 1.5; Prothrombin Time Fingerstick 18.2 SEC (11.7-14.9)
--- NOTE | 2022-06-04 14:24 | OP.COLON_ITS ---
Patient Name: Dakota Osman Procedure Date: 06/04/2022 1:03 PM Date of : 1945 Age: 77 Procedure: Colonoscopy Indications: Clinically significant diarrhea of unexplained origin Providers: Marlyn Dockery MD Medicines: Monitored Anesthesia Care Patient Profile: This is a 77 year old male. Last Colonoscopy: within the past 3 years. Complications: No immediate complications. Procedure: Pre-Anesthesia Assessment: - Prior to the procedure, a History and Physical was performed, and patient medications and allergies were reviewed. The patient's tolerance of previous anesthesia was also reviewed. The risks and benefits of the procedure and the sedation options and risks were discussed with the patient. All questions were answered, and informed consent was obtained. Prior Anticoagulants: The patient has taken Coumadin (warfarin), last dose was 5 days prior to procedure. ASA Grade Assessment: Per anesthesia. After reviewing the risks and benefits, the patient was deemed in satisfactory condition to undergo the procedure. After I obtained informed consent, the scope was passed under direct vision. Throughout the procedure, the patient's blood pressure, pulse, and oxygen saturations were monitored continuously. The colonoscope was introduced through the anus and advanced to the cecum, identified by the ileocecal valve. The colonoscopy was performed without difficulty. The patient tolerated the procedure well. The quality of the bowel preparation was adequate to identify polyps. Scope In: 1:40:00 PM Scope Withdrawal Time 0 hours 17 minutes 23 seconds Scope Out: 2:12:05 PM Total Procedure Duration Time 0 hours 32 minutes 5 seconds Findings: Hemorrhoids were found on perianal exam. Non-bleeding internal hemorrhoids were found. The hemorrhoids were Grade I (internal hemorrhoids that do not prolapse). A few small-mouthed diverticula were found in the sigmoid colon and ascending colon. Four sessile polyps were found in the rectum, descending colon, ascending colon and cecum. The polyps were less than 5 mm in size. These polyps were removed with a cold biopsy forceps. Resection and retrieval were complete. Six random biopsies were obtained with cold forceps for histology in a targeted manner in the rectum, in the sigmoid colon, in the descending colon, in the transverse colon, in the ascending colon and in the cecum. Impression: - Hemorrhoids found on perianal exam. - Non-bleeding internal hemorrhoids. - Diverticulosis in the sigmoid colon and in the ascending colon. - Four less than 5 mm polyps in the rectum, in the descending colon, in the ascending colon and in the cecum, removed with a cold biopsy forceps. Resected and retrieved. - Six random biopsies were obtained in the rectum, in the sigmoid colon, in the descending colon, in the transverse colon, in the ascending colon and in the cecum. Recommendation: - Discharge patient to home. - Resume previous diet. - Continue present medications. - Resume Coumadin (warfarin) at prior dose tomorrow. - Await pathology results. - Repeat colonoscopy in 5 years for surveillance based on pathology results. Procedure Code(s): --- Professional --- 11026, Colonoscopy, flexible; with biopsy, single or multiple Diagnosis Code(s): --- Professional --- K64.0, First degree hemorrhoids K62.1, Rectal polyp D12.4, Benign neoplasm of descending colon D12.2, Benign neoplasm of ascending colon D12.0, Benign neoplasm of cecum R19.7, Diarrhea, unspecified K57.30, Diverticulosis of large intestine without perforation or abscess without bleeding CPT copyright 2017 [employer]. All rights reserved. The codes documented in this report are preliminary and upon early childhood special educator review may be revised to meet current compliance requirements. MD Marlyn Ventura MD 06/04/2022 2:23:57 PM This report has been signed electronically. Number of Addenda: 0 Note Initiated On: 06/04/2022 1:03 PM
--- NOTE | 2022-06-04 14:24 | OP.CCLET_ITS ---
06/04/2022 Howard Escobar Re : Colonoscopy procedure for Dakota Osman Dear Shawn This procedure was performed on Saturday, June 04, 2022. My impressions and recommendations are as follows: Impressions : - Hemorrhoids found on perianal exam. - Non-bleeding internal hemorrhoids. - Diverticulosis in the sigmoid colon and in the ascending colon. - Four less than 5 mm polyps in the rectum, in the descending colon, in the ascending colon and in the cecum, removed with a cold biopsy forceps. Resected and retrieved. - Six random biopsies were obtained in the rectum, in the sigmoid colon, in the descending colon, in the transverse colon, in the ascending colon and in the cecum. Recommendations : - Discharge patient to home. - Resume previous diet. - Continue present medications. - Resume Coumadin (warfarin) at prior dose tomorrow. - Await pathology results. - Repeat colonoscopy in 5 years for surveillance based on pathology results. My findings are described in the full procedure note, which is enclosed. If I can be of further assistance, please feel free to contact me at Doctor phone number(s): , Work: . Sincerely, MD Marlyn Ventura MD 06/04/2022 2:23:57 PM This report has been signed electronically.
== END 2022-06-04 15:17 | disposition home or self-care (01) ==
LOC: EN 12:19 → AC 12:21
PROVIDERS: PCP Family Medicine; Referring Provider Surgery; Visit Provider Surgery
PROC: 0DJD8ZZ Inspection of Lower Intestinal Tract, Via Natural or Artificial Opening Endoscopic (ICD-10-PCS; CPT 45378; principal; 2022-06-04 13:25)
DX: D12.2 Benign neoplasm of ascending colon (principal); I42.2 Other hypertrophic cardiomyopathy; I50.42 Chronic combined systolic (congestive) and diastolic (congestive) heart failure; I13.0 Hypertensive heart and chronic kidney disease with heart failure and stage 1 through stage 4 chronic kidney disease, or unspecified chronic kidney disease; E11.22 Type 2 diabetes mellitus with diabetic chronic kidney disease; I48.11 Longstanding persistent atrial fibrillation; N18.32 Chronic kidney disease, stage 3b; K63.89 Other specified diseases of intestine; D12.4 Benign neoplasm of descending colon; D12.0 Benign neoplasm of cecum; K64.0 First degree hemorrhoids; K57.30 Diverticulosis of large intestine without perforation or abscess without bleeding; I25.2 Old myocardial infarction; G47.33 Obstructive sleep apnea (adult) (pediatric); Z87.891 Personal history of nicotine dependence; Z79.899 Other long term (current) drug therapy; Z79.01 Long term (current) use of anticoagulants; Z79.84 Long term (current) use of oral hypoglycemic drugs
CPT/HCPCS: 45380; 36416; 82962; 85610; 87177; 87209; 87493; 88305; J7120

== ENCOUNTER 2022-06-19 17:44 | Inpatient (IN) | payer MEDICARE, BC, SELFPAY ==
[2022-06-19 17:45] VITALS: BP 129/83; PULSE 73; RESP 18; TEMP 36.2; O2SAT 100; BMI 30.2
--- NOTE | 2022-06-19 18:45 | EX.ED.DYSGE1 ---
HPI History of Present Illness Chief Complaint: Abn Labs Narrative Narrative: Patient with past medical history of CHF, diabetes, defibrillator, presents with abnormal laboratory work. He states he has had diarrhea and loose stools for 2 months. He denies any nausea or vomiting. No fevers or chills. He states he felt short of breath so he went to see his clerical administrative assistant today where they performed lab work, and he received a phone call that he was in kidney failure. While he may have history of chronic kidney injury, his creatinine was elevated above 5 today. He was told to come to the emergency department for evaluation of his acute on chronic kidney injury. He states he does have history of CHF and usually when he has fluid accumulation or increase in body weight, he will take an extra Lasix which will get rid of his fluid on his abdomen. [facility] Medical History Abnormal ankle brachial index (LOKI) Anemia due to stage 3b chronic kidney disease Back pain Back pain BPH (benign prostatic hyperplasia) Cardiology follow-up encounter CHF NYHA class III Chronic combined systolic and diastolic CHF (congestive heart failure) Chronic kidney disease, stage 3b Claudication Constipation CPAP (continuous positive airway pressure) dependence Diabetes Dietary restriction Elevated troponin (01/2021) Essential (primary) hypertension Gout Heartburn History of echocardiogram History of edema History of irregular heartbeat History of non-ST elevation myocardial infarction (NSTEMI) (07/25/21) History of pain when walking History of steroid therapy History of tobacco use HLD (hyperlipidemia) Hypertension Hypertrophic cardiomyopathy Hypokalemia Joint pain Lactic acidosis Left bundle branch block Leg cramps Leukocytosis Longstanding persistent atrial fibrillation Night sweats 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 Obesity (BMI 30.0-34.9) KIMBERLY (obstructive sleep apnea) Poor appetite Presence of implantable pulmonary artery pressure and heart rate monitoring system (03/25/21) Renal infarct Restless legs Secondary pulmonary arterial hypertension Shortness of breath on exertion Syncope Wears glasses Home Medications cyanocobalamin (vitamin B-12) 1,000 mcg/mL injection solution 1,000 mcg IM Q30D supplement 06/08/16 [History Last Taken 01/29/19] finasteride 5 mg tablet 5 mg PO DAILY prostate 12/19/20 [History Last Taken 12/22/20] glimepiride 1 mg tablet 1 mg PO DAILY diabetes 02/13/21 [History Last Taken Unknown] warfarin 2.5 mg tablet 2.5 mg PO SUTUTHSA blood thinner 03/11/21 [History Last Taken 05/31/22] cholecalciferol (vitamin D3) 25 mcg (1,000 unit) capsule (Vitamin D3) 25 mcg PO DAILY vitamin 07/25/21 [History Last Taken Unknown] prednisone 5 mg tablet 5 mg PO DAILY 12/30/21 [History Last Taken Unknown] furosemide 40 mg tablet (Lasix) 40 mg PO BID #180 tabs 03/24/22 [Rx Last Taken Unknown] carvedilol 6.25 mg tablet 6.25 mg PO BID #60 tabs 04/22/22 [Rx Last Taken 06/04/22] peg 3350-electrolytes 236 gram-22.74 gram-6.74 gram-5.86 gram solution 240 ml PO Q15-20M #4,000 mL 05/30/22 [Rx Last Taken Unknown] lisinopril 10 mg tablet 20 mg PO DAILY 06/02/22 [History Last Taken 06/04/22] metolazone 2.5 mg tablet 2.5 mg PO DAILY 06/19/22 [History Last Taken Unknown] warfarin 5 mg tablet 5 mg PO QMWF 06/19/22 [History Last Taken Unknown] Allergy/AdvReac Type Severity Reaction Status Date / Time rivaroxaban [From Xarelto] Allergy Bleeding Verified 06/19/22 17:46 metoprolol AdvReac bradycardia Verified 06/19/22 17:46 Family History Father Heart disease Sister Heart disease Brother Heart disease Other Arthritis CVA (cerebral vascular accident) Depression Mental disorder Surgical History History of appendectomy History of cataract extraction History of left heart catheterization (02/19/21) History of transurethral resection of prostate (01/2019) History of ventricular septal myectomy (2000) Hx of umbilical hernia repair Social History Smoking Status: Former smoker how long ago did patient quit smokin years ago 0.25ppd second hand exposure: Yes alcohol intake: never caffeine: Yes Type: coffee Number of servings: 1 what type of physical activity do you participate in: other details: treadmill frequency: daily ROS ROS ED ROS Narrative Constitutional: No fever, no chills. HEENT: No sore throat. No neck pain. No loss of vision. No rhinorrhea. Cardiovascular: No chest pain. No palpitations. No pedal edema. Respiratory: No cough, mild shortness of breath. Abdominal: No abdominal pain. No nausea. No vomiting. Genitourinary: No dysuria. No hematuria. Musculoskeletal: No myalgias. No arthralgias. Neurologic: No headaches. No dizziness. No lightheadedness. Skin: No rash. No change in color. Psychiatric: No depression. No anxiety. EXAM Physical Exam Narrative Exam Narrative: Afebrile. Vital signs noted. HEENT: Normocephalic. Atraumatic. PERRL, EOMI. Neck soft and supple. No point tenderness or step off. Cardiovascular: Regular rate and rhythm. No murmurs, rubs, or gallops appreciated. Respiratory: No tachypnea. Lungs clear to auscultation bilaterally. Gastrointestinal: Abdomen soft, nontender, with normoactive bowel sounds. No rebound or guarding. Neurological: Awake. Alert. Nonfocal, nonlateralizing. Skin: No rash. Normal color. No pallor. Musculoskeletal: No pedal edema. Full range of motion extremities. Const Vital Signs: 06/19/22 17:45 06/19/22 18:25 06/19/22 21:30 Temperature 97.2 F L Temperature Source Temporal Pulse Rate 73 59 L Respiratory Rate 18 18 Respiratory Effort Non-Labored Short of Breath Blood Pressure 129/83 H 108/96 H Blood Pressure Mean 98 100 Pulse Ox 100 96 Oxygen Delivery Method Room Air Room Air MDM MDM MDM Narrative Medical decision making narrative: I did review his labs from earlier today and his creatinine is elevated above 5. I will repeat his laboratory work including BNP. I will be vigilant with the amount of fluid he is given. He was initially started at 150 mL/h. CBC shows normal white count of 10.5, hemoglobin stable at 10.6, hematocrit 31.1. Platelet count normal at 220. Electrolyte panel shows BUN elevated at 155 with a creatinine of 5.14, above his baseline of 1.8-2.1. Urinalysis shows no evidence of infection, negative ketones. BNP slightly elevated at 136, it has been in the 300s in the past. Given his acute on chronic kidney injury, patient was discussed with Dr. Jackson for admission to the medical surgical floor. Disposition is admit in stable condition. Lab Data Attestation: I reviewed the patient's lab results. Labs: Laboratory Results - last 24 hr 06/19/22 06/19/22 06/19/22 18:40 18:45 18:45 WBC 10.5 RBC 3.51 L Hgb 10.6 L Hct 31.1 L MCV 88.6 MCH 30.2 MCHC 34.1 RDW Std Deviation 46.2 H RDW Coeff of Kiersten 14.3 Plt Count 220 MPV 12.2 H Sodium 136 Potassium 4.1 Chloride 100 Carbon Dioxide 19.0 L Anion Gap 17 H BUN 155 H* Creatinine 5.14 H Estim Creat Clear Calc 10.14 Est GFR (MDRD) Af Amer 14 L Est GFR (MDRD) Non-Af 12 L BUN/Creatinine Ratio 30.2 H Glucose 186 H Calcium 8.7 B-Natriuretic Peptide Urine Color Yellow Urine Clarity Clear Urine pH 5.0 Ur Specific [place] 1.015 Urine Protein Negative Urine Glucose (UA) Normal Urine Ketones Negative Urine Occult Blood 10 H Urine Nitrite Negative Urine Bilirubin Negative Urine Urobilinogen Normal Ur Leukocyte Esterase Negative Urine RBC 0 SEEN Urine WBC 0 SEEN Ur Squamous Epith Cells 0-5 SEEN Urine Bacteria RARE Urine Mucus 0 SEEN 06/19/22 18:45 WBC RBC Hgb Hct MCV MCH MCHC RDW Std Deviation RDW Coeff of Kiersten Plt Count MPV Sodium Potassium Chloride Carbon Dioxide Anion Gap BUN Creatinine Estim Creat Clear Calc Est GFR (MDRD) Af Amer Est GFR (MDRD) Non-Af BUN/Creatinine Ratio Glucose Calcium B-Natriuretic Peptide 136.6 H Urine Color Urine Clarity Urine pH Ur Specific [place] Urine Protein Urine Glucose (UA) Urine Ketones Urine Occult Blood Urine Nitrite Urine Bilirubin Urine Urobilinogen Ur Leukocyte Esterase Urine RBC Urine WBC Ur Squamous Epith Cells Urine Bacteria Urine Mucus Discharge Plan Dx/Rx/DC Orders Clinical Impression: Acute kidney injury superimposed on chronic kidney disease, Diarrhea, CHF NYHA class III Disposition Disposition: Acute Care [facility]
--- NOTE | 2022-06-19 18:46 | EKG12_ITS ---
Test Reason : ABN LABS Blood Pressure : / mmHG Vent. Rate : 065 BPM Atrial Rate : 000 BPM P-R Int : 000 ms QRS Dur : 156 ms QT Int : 454 ms P-R-T Axes : 000 -05 157 degrees QTc Int : 472 ms Atrial fibrillation Left bundle branch block Abnormal ECG Confirmed by ABDI STONER, CHANI ([id number]), proposal editor VIOLETA VILLALBA ([id number]) on 06/23/2022 9:46:41 AM Referred By: Confirmed By:CHANI PATTON MD
[2022-06-19] MEDS: 0.9% Normal Saline 1,000 ML 150 ML IV (18:58)
[2022-06-19 18:59] LABS: Mucous, Urine 0 SEEN /hpf (<or=2+); Red Blood Cells-Urine 0 SEEN /hpf (0-5); White Blood Cells 0 SEEN /hpf (0-5)
[2022-06-19 19:07] LABS: Hematocrit 31.1 % (40-54); Hemoglobin 10.6 g/dL (13.0-16.5); Mean Corp Hgb Conc 34.1 g/dL (32-36); Mean Corpuscular Hgb 30.2 pg (27.0-32.0); Mean Corpuscular Volume 88.6 fL (80-94); Mean Platelet Vol. 12.2 fl (6.2-12.0); Platelet Count 220 K/mm3 (150-450); RBC Distribution Width CV 14.3 % (11.6-14.6); RBC Distribution Width SD 46.2 fl (35.1-43.9); Red Blood Count 3.51 M/mm3 (4.6-6.2); White Blood Count 10.5 K/mm3 (4.4-11.0)
[2022-06-19 19:14] LABS: Color, Urine Yellow (Yellow); Glucose, Dipstick Normal (Normal); Ketone-Dipstick Negative (Negative); Leukocyte Esterase-Dipstick Negative /ul (Negative); Nitrite-Dipstick Negative (Negative); Occult Blood-Urine 10 /ul (Negative); Protein-Dipstick Negative (Negative); Specific Gravity, Urine 1.015 (1.002-1.030); Urine Bilirubin Dipstick Negative (Negative); Urine Clarity Clear (Clear); Urine Urobilinogen Normal (Normal)
[2022-06-19 19:27] LABS: BNP,B-Type NATRIURETIC PEPTIDE 136.6 pg/mL (0-100)
[2022-06-19 19:33] LABS: Bacteria RARE /hpf (None Seen); Squamous Epithelial Cells - UA 0-5 SEEN /hpf (0-5)
[2022-06-19 19:48] LABS: Anion Gap 17 (5-15); BUN 155 mg/dL (7-18); BUN/Creat Ratio 30.2 RATIO (10-20); Calcium,Total 8.7 mg/dL (8.5-10.1); Chloride 100 mmol/L (98-107); Creatinine, Serum 5.14 mg/dL (0.70-1.30); EST Glomerular Filtration Rate 12 mL/min (>60); Est Glom Filt Rate - Afr Amer 14 mL/min (>60); Estimated Creatinine Clearance 10.14 ml/min; Glucose 186 mg/dL (74-106); Potassium 4.1 mmol/L (3.5-5.1); Sodium Level 136 mmol/L (136-145)
[2022-06-19 21:30] VITALS: BP 108/96; PULSE 59; RESP 18; O2SAT 96
--- NOTE | 2022-06-19 22:56 | HP.PCM.HOS_ITS ---
[facility] - General General Date of Admission: 06/19/22 Date of Service: 06/19/22 Chief Complaint: Abnormal labwork HPI Narrative ANTWAN GE, is a 77 M with a significant history of atrial fibrillation; combined systolicanddiastolic dysfunction heart failure and with a defibrillator and ventricular septal myectomy who presents to the emergency department with abnormal lab work. Reportedly because patient has been having shortness of breath with exertion he called his network pricing consultant office and was instructed to get a chest x-ray and lab work. The lab work returned with elevated creatinine so patient was called and instructed to come to the emergency department. Patient reports having diarrhea for 2 months and for which he has had work-up including colonoscopy. Patient denies paroxysmal nocturnal dyspnea. He uses a CPAP to sleep. He uses 1 pillow to sleep and that has not changed. He reports poor p.o. intake. He reports jitteriness in the AM. He thinks the jitteriness and his elevated creatinine that he is currently in is secondary to beginning a new medication that he started about 2 months ago for gout. [facility] Medical History Abnormal ankle brachial index (LOKI) Anemia due to stage 3b chronic kidney disease Back pain Back pain BPH (benign prostatic hyperplasia) Cardiology follow-up encounter CHF NYHA class III Chronic combined systolic and diastolic CHF (congestive heart failure) Chronic kidney disease, stage 3b Claudication Constipation CPAP (continuous positive airway pressure) dependence Diabetes Dietary restriction Elevated troponin (01/2021) Essential (primary) hypertension Gout Heartburn History of echocardiogram History of edema History of irregular heartbeat History of non-ST elevation myocardial infarction (NSTEMI) (07/25/21) History of pain when walking History of steroid therapy History of tobacco use HLD (hyperlipidemia) Hypertension Hypertrophic cardiomyopathy Hypokalemia Joint pain Lactic acidosis Left bundle branch block Leg cramps Leukocytosis Longstanding persistent atrial fibrillation Night sweats 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 Obesity (BMI 30.0-34.9) KIMBERLY (obstructive sleep apnea) Poor appetite Presence of implantable pulmonary artery pressure and heart rate monitoring system (03/25/21) Renal infarct Restless legs Secondary pulmonary arterial hypertension Shortness of breath on exertion Wears glasses Home Medications cyanocobalamin (vitamin B-12) 1,000 mcg/mL injection solution 1,000 mcg IM Q30D supplement 06/08/16 [History Last Taken 01/29/19] finasteride 5 mg tablet 5 mg PO DAILY prostate 12/19/20 [History Last Taken 12/22/20] glimepiride 1 mg tablet 1 mg PO DAILY diabetes 02/13/21 [History Last Taken Unknown] warfarin 2.5 mg tablet 2.5 mg PO SUTUTHSA blood thinner 03/11/21 [History Last Taken 05/31/22] cholecalciferol (vitamin D3) 25 mcg (1,000 unit) capsule (Vitamin D3) 25 mcg PO DAILY vitamin 07/25/21 [History Last Taken Unknown] prednisone 5 mg tablet 65 mg PO DAILY gout 12/30/21 [History Last Taken 06/19/22] furosemide 40 mg tablet (Lasix) 40 mg PO BID #180 tabs 03/24/22 [Rx Last Taken Unknown] carvedilol 6.25 mg tablet 6.25 mg PO BID #60 tabs 04/22/22 [Rx Last Taken 06/04/22] lisinopril 10 mg tablet 20 mg PO DAILY 06/02/22 [History Last Taken 06/04/22] warfarin 5 mg tablet 5 mg PO QMWF 06/19/22 [History Last Taken Unknown] Allergy/AdvReac Type Severity Reaction Status Date / Time rivaroxaban [From Xarelto] Allergy Bleeding Verified 06/19/22 17:46 metoprolol AdvReac bradycardia Verified 06/19/22 17:46 Family History Father Heart disease Sister Heart disease Brother Heart disease Other Arthritis CVA (cerebral vascular accident) Depression Mental disorder Surgical History History of appendectomy History of cataract extraction History of left heart catheterization (02/19/21) History of transurethral resection of prostate (01/2019) History of ventricular septal myectomy (2000) Hx of umbilical hernia repair Social History Smoking Status: Former smoker how long ago did patient quit smokin years ago 0.25ppd second hand exposure: Yes alcohol intake: never caffeine: Yes Type: coffee Number of servings: 1 what type of physical activity do you participate in: other details: treadmill frequency: daily ROS ROS Narrative Pertinent positives and pertinent negatives as noted in HPI. All other systems were reviewed and are negative Vital Signs Vital Signs Vital Signs: 06/19/22 17:45 06/19/22 18:25 06/19/22 21:30 Temperature 97.2 F L Temperature Source Temporal Pulse Rate 73 59 L Respiratory Rate 18 18 Respiratory Effort Non-Labored Short of Breath Blood Pressure 129/83 H 108/96 H Blood Pressure Mean 98 100 Pulse Ox 100 96 Oxygen Delivery Method Room Air Room Air Weight Weight: 82.554 kg Body Mass Index (BMI) 30.2 Physical Exam Narrative Physical exam: General: Well-nourished, well-developed. Head: Normocephalic, atraumatic, no tenderness Eyes: Vision is grossly intact. EOMI ENT, no trauma, moist mucous membranes, no rhinorrhea Neck: Nontender, full range of motion, no spinal tenderness, deformities, step- off CVS: Regular rate and rhythm. S1-S2 present. No murmur, gallop or rub. Respiratory : clear to auscultation bilaterally, chest wall nontender, no wheezing Abdomen: Soft, nontender, nondistended, normal bowel sounds, no masses : Deferred Back: Nontender, no CVA tenderness, no midline spinal tenderness, deformities, step-offs Extremities: Nontender full range of motion, no trauma Skin: Normal color, no trauma, abrasions Neuro: Alert, oriented, cranial nerves II through XII grossly intact. Psychiatry: Normal mood. Normal affect. Not depressed. Not anxious. Results Lab / Micro Data Result Diagrams: 06/19/22 18:45 06/19/22 18:45 Labs: Laboratory Results - last 24 hr 06/19/22 18:40: Urine Color Yellow, Urine Clarity Clear, Urine pH 5.0, Ur Specific [place] 1.015, Urine Protein Negative, Urine Glucose (UA) Normal, Urine Ketones Negative, Urine Occult Blood 10 H, Urine Nitrite Negative, Urine Bilirubin Negative, Urine Urobilinogen Normal, Ur Leukocyte Esterase Negative, Urine RBC 0 SEEN, Urine WBC 0 SEEN, Ur Squamous Epith Cells 0-5 SEEN, Urine Bacteria RARE, Urine Mucus 0 SEEN 06/19/22 18:45: WBC 10.5, RBC 3.51 L, Hgb 10.6 L, Hct 31.1 L, MCV 88.6, MCH 30.2, MCHC 34.1, RDW Std Deviation 46.2 H, RDW Coeff of Kiersten 14.3, Plt Count 220, MPV 12.2 H 06/19/22 18:45: Sodium 136, Potassium 4.1, Chloride 100, Carbon Dioxide 19.0 L, Anion Gap 17 H, BUN 155 H*, Creatinine 5.14 H, Estim Creat Clear Calc 10.14, Est GFR (MDRD) Af Amer 14 L, Est GFR (MDRD) Non-Af 12 L, BUN/Creatinine Ratio 30.2 H , Glucose 186 H, Calcium 8.7 06/19/22 18:45: B-Natriuretic Peptide 136.6 H Assessment & Plan Assessment/Plan (1) Acute kidney injury superimposed on chronic kidney disease: (2) Chronic combined systolic and diastolic CHF (congestive heart failure): (3) Longstanding persistent atrial fibrillation: PLAN: Plan CEE on CKD Stage 3b CKD leg secondary to cardiorenal syndrome and diabetic nephropathy. Creatinine on day of presentation was 5.14 and 5.26. BUN was 155 and 161. BUN over creatinine was 30.2 and 30.6. His baseline creatinine is around 2.0. CEE likely secondary to diuretic use and dehydration from diarrhea. Hold home diuretics and lisinopril. Received normal saline bolus in the emergency department. Gentle IV hydration ordered. Urinary electrolytes ordered. Combined systolic and diastolic heart failure Echocardiogram on 07/25/2021 was reviewed. Echocardiogram showed mild concentric left ventricular hypertrophy. Estimated ejection fraction was 45%. Mild to moderate mitral valve insufficiency; mild to moderate tricuspid valve insufficiency; moderate to severe restriction of aortic valve. Chest x-ray on 06/19/2022 was visualized and independently interpreted. Chest x-ray with no acute cardiopulmonary process. BNP is unremarkable at 136.6 and 137.5. Carvedilol continued. Lisinopril held secondary to CEE. Stable Longstanding persistent A. fib Rate controlled on presentation Stable. INR therapeutic. Home Coumadin continued. Gout On home prednisone 65 mg p.o. daily. We will attempt to taper. Prednisone 40 mg daily ordered for now. Diabetes mellitus Patient with hyperglycemia on presentation Glimepiride held Monitor Accu-Cheks Correction scale insulin ordered. DVT prophylaxis: Continue home warfarin for A. fib. Charges/Coding Visit Charges Inpatient E&M: 30154 Init Hosp L3
[2022-06-19 23:32] VITALS: PULSE 62; BMI 30.4
[2022-06-19 23:35] VITALS: BP 129/66; PULSE 71; RESP 18; TEMP 36.4; O2SAT 99
[2022-06-20] VITALS (10 sets, daily range): BP systolic 114–147; BP diastolic 63–104; PULSE 56–91; RESP 16–19; TEMP 36.4–36.8; O2SAT 95–98
[2022-06-20] MEDS: 0.9% Normal Saline 1,000 ML 75 ML IV ×2 (00:16→14:24)
[2022-06-20 01:29] LABS: Urea Nitrogen, Urine 491 mg/dL (NO RANGE EST.); Urine Sodium 86 mmol/L (Not Establ.)
[2022-06-20 06:03] LABS: Absolute Neutrophil Count 7.2 X10^3/uL (2.0-7.7); Basophil# 0.03 X10^3/uL; Basophil% 0.3 % (0-1); Eosinophil# 0.07 X10^3/uL; Eosinophils% 0.8 % (0-5); Hematocrit 27.6 % (40-54); Hemoglobin 9.2 g/dL (13.0-16.5); Lymphocyte % 11.9 % (19-41); Mean Corp Hgb Conc 33.3 g/dL (32-36); Mean Corpuscular Hgb 29.9 pg (27.0-32.0); Mean Corpuscular Volume 89.6 fL (80-94); Mean Platelet Vol. 12.1 fl (6.2-12.0); Monocyte# 0.78 X10^3/uL; Monocyte% 8.5 % (0-10); NRBC Flagged by Analyzer 0 % (0-5); Neutrophil # 7.18 X10^3/uL (2.7-7.7); Neutrophil % 77.8 % (47-70); Platelet Count 181 K/mm3 (150-450); RBC Distribution Width CV 14.1 % (11.6-14.6); RBC Distribution Width SD 46.2 fl (35.1-43.9); Red Blood Count 3.08 M/mm3 (4.6-6.2); White Blood Count 9.2 K/mm3 (4.4-11.0)
[2022-06-20 06:18] LABS: International Normalized Ratio 2.3
[2022-06-20 06:51] LABS: Anion Gap 16 (5-15); BUN 147 mg/dL (7-18); BUN/Creat Ratio 31.4 RATIO (10-20); Calcium,Total 8.1 mg/dL (8.5-10.1); Chloride 105 mmol/L (98-107); Creatinine, Serum 4.68 mg/dL (0.70-1.30); EST Glomerular Filtration Rate 13 mL/min (>60); Est Glom Filt Rate - Afr Amer 16 mL/min (>60); Estimated Creatinine Clearance 11.13 ml/min; Glucose 76 mg/dL (74-106); Potassium 3.5 mmol/L (3.5-5.1); Sodium Level 138 mmol/L (136-145)
[2022-06-20 07:05] LABS: Bedside Glucose 87 mg/dL (74-106)
--- NOTE | 2022-06-20 08:06 | US_ITS ---
STUDY: RENAL ULTRASOUND - COMPLETE REASON FOR EXAM: Male, 77 years old. Acute on chronic renal failure TECHNIQUE: Ultrasound evaluation of the kidneys was performed with real-time and static yadav-scale imaging. COMPARISON: March 11, 2021 FINDINGS: RIGHT KIDNEY: Normal location of the right kidney, which is decreased in size. The right kidney measures 9.2 cm. There is increased echogenicity cortex of the right kidney. The renal cortex measures 0.7 cm. There is no right renal mass or cyst. There are no right renal calculi. There is no right hydronephrosis. DISTAL RIGHT URETER: There is non-visualization of the distal right ureter. There is no demonstrated right ureterovesical junction calculus. There is no demonstrated right ureteral jet. LEFT KIDNEY: Normal location of the left kidney, which is normal in size. The left kidney measures 10.7 cm. There is a normal cortex of the left kidney. The renal cortex measures 1.6 cm. There is no left renal mass or cyst. There are no left renal calculi. There is no left hydronephrosis. DISTAL LEFT URETER: There is non-visualization of the distal left ureter. There is no demonstrated left ureterovesical junction calculus. There is a visualized left ureteral jet. BLADDER: The distended urinary bladder has a volume of 66 ml. There is a normal wall thickness of the distended urinary bladder. There is no demonstrated mass within the urinary bladder. There are no demonstrated bladder calculi. US/Kidney and Bladder IMPRESSION: Stable atrophy of the right kidney. No hydronephrosis. Electronically Signed: Ricardo Donis MD at 11:58 EDT ,
[2022-06-20] MEDS: Carvedilol 6.25 MG Tablet PO ×2 (10:11→16:26)
[2022-06-20] MEDS: Cholecalciferol (VIT D3) 25 MCG TABLET (1,000 UNITS) PO (10:11)
[2022-06-20 12:20] LABS: Bedside Glucose 118 mg/dL (74-106)
--- NOTE | 2022-06-20 13:12 | PCM.PN.HOSP ---
Subjective Subjective Patient seen and examined. He had no active complaints this morning. He had an uneventful night. He states he has been peeing quite a bit. He thinks he got the kidney injury because of the medication he was taking for his scalp. He had also not been eating or drinking well. Review of systems otherwise negative. Creatinine is trended down slightly. Objective Data Objective Data Vital Signs: Vital Signs Temp Pulse Resp BP Pulse Ox O2 Del Method 98.1 F 66 18 133/63 H 97 Room Air 06/20/22 10:10 06/20/22 11:00 06/20/22 10:10 06/20/22 10:10 06/20/22 10:16 06/20/22 10:16 Oxygen Delivery Method Room Air Weight: 183 lb 10.321 oz Body Mass Index (BMI) 30.4 Intake & Output: Intake and Output for Last 24 Hours 06/18/22 06/19/22 06/20/22 23:59 23:59 23:59 Intake Total 2278.75 / 2278.75 Output Total 525 / 525 Balance 1753.75 / 1753.75 Lab / Micro Data Result Diagrams: 06/20/22 05:10 06/20/22 05:10 Labs: Laboratory Results - last 24 hr 06/19/22 18:40: Urine Color Yellow, Urine Clarity Clear, Urine pH 5.0, Ur Specific [place] 1.015, Urine Protein Negative, Urine Glucose (UA) Normal, Urine Ketones Negative, Urine Occult Blood 10 H, Urine Nitrite Negative, Urine Bilirubin Negative, Urine Urobilinogen Normal, Ur Leukocyte Esterase Negative, Urine RBC 0 SEEN, Urine WBC 0 SEEN, Ur Squamous Epith Cells 0-5 SEEN, Urine Bacteria RARE, Urine Mucus 0 SEEN 06/19/22 18:45: WBC 10.5, RBC 3.51 L, Hgb 10.6 L, Hct 31.1 L, MCV 88.6, MCH 30.2, MCHC 34.1, RDW Std Deviation 46.2 H, RDW Coeff of Kiersten 14.3, Plt Count 220, MPV 12.2 H 06/19/22 18:45: Sodium 136, Potassium 4.1, Chloride 100, Carbon Dioxide 19.0 L, Anion Gap 17 H, BUN 155 H*, Creatinine 5.14 H, Estim Creat Clear Calc 10.14, Est GFR (MDRD) Af Amer 14 L, Est GFR (MDRD) Non-Af 12 L, BUN/Creatinine Ratio 30.2 H, Glucose 186 H, Calcium 8.7 06/19/22 18:45: B-Natriuretic Peptide 136.6 H 06/20/22 01:05: Ur Random Sodium 86, Urine Creatinine 40.90, Urine Urea Nitrogen 491 06/20/22 05:10: WBC 9.2, RBC 3.08 L, Hgb 9.2 L, Hct 27.6 L, MCV 89.6, MCH 29.9, MCHC 33.3, RDW Std Deviation 46.2 H, RDW Coeff of Kiersten 14.1, Plt Count 181, MPV 12.1 H, Immature Gran % (Auto) 0.700, Neut % (Auto) 77.8 H, Lymph % (Auto) 11.9 L, [place] % (Auto) 8.5, Eos % (Auto) 0.8, Baso % (Auto) 0.3, Absolute Neuts (auto) 7.2, Absolute Lymphs (auto) 1.10, Nucleated RBC % 0 06/20/22 05:10: PT 25.0 H, INR 2.3 06/20/22 05:10: Sodium 138, Potassium 3.5, Chloride 105, Carbon Dioxide 17.0 L, Anion Gap 16 H, BUN 147 H*, Creatinine 4.68 H, Estim Creat Clear Calc 11.13, Est GFR (MDRD) Af Amer 16 L, Est GFR (MDRD) Non-Af 13 L, BUN/Creatinine Ratio 31.4 H, Glucose 76, Calcium 8.1 L 06/20/22 06:24: POC Glucose 87 06/20/22 11:52: POC Glucose 118 H Radiography Diagnostic Testing: Radiology Impression Renal Ultrasound 06/20/22 08:06 IMPRESSION: Stable atrophy of the right kidney. No hydronephrosis. Electronically Signed: Ricardo Donis MD at 11:58 EDT , Physical Exam Const alert, oriented x3 and no apparent distress HEENT head/scalp atraumatic, moist oral mucous membranes and oropharynx normal Head and Scalp: normocephalic Mouth: oral and palatal mucosa normal Eyes PERRL, EOMs intact bilaterally and conjunctivae normal Neck no lymphadenopathy, supple and no JVD Resp normal respiratory effort, no retractions, no use of accessory muscles and clear to auscultation bilaterally Cardio regular rate, regular rhythm, S1 normal heart sound, S2 normal heart sound and no murmurs GI normal to inspection, nondistended, normoactive bowel sounds, soft to palpation, non-tender and non-distended Extremity normal to inspection, full ROM and no clubbing, cyanosis or edema Neuro oriented x3, CN's II-XII intact bilaterally, moves all extremities and no focal motor deficits Sensorium / Orientation: awake, alert and oriented to person Speech: speech normal Motor Exam: strength 5/5 throughout Psych affect normal Assessment & Plan Assessment/Plan (1) Bradycardia: (2) Diarrhea: (3) Acute kidney injury superimposed on chronic kidney disease: PLAN: Plan #CEE on CKD 3B Cr has trended down; was 5.14 on admission and now dwn to 4.68. baseline Cr is ~ 2 likely due to diuretic use and dehydration from diarrhea home diuretic meds on hold. Lisinopril also on hold. continue gently IVF renal USG done showed stable atrophy of the right kidney with no hydronephrosis nephrology consulted #COmbined systolic and diastolic heart failure on carvedilol. Lisinopril on hold due to CEE #Afib: on carvedilol. On coumadin. INR is therapeutic #Type 2 diabetes mellitus: ISS> Accuchecks ACHS. Glimepiride on hold. #Gout: On prednisone. Placed on prednisone 40 mg daily. DVT prophylaxis: on coumadin. INR is therapeutic at 2.3 Charges/Coding Visit Charges Inpatient E&M: 76093 [facility] Hosp L3
--- NOTE | 2022-06-20 13:15 | CASEMGMT ---
RN CM Face to Face with patient for initial transition planning/care coordination assessment. RN CM introduced self and role at [facility]. Patient lying in bed, alert and oriented. Patient willing to participate in assessment and is able to answer all questions appropriately. Care providers, pharmacy, and demographics verified. Patient wishes to discharge home, denies need for home health at this time. Patient states he has no further needs or concerns at this time. CM to follow for discharge planning needs that may arise. PCP: Shawn Specialists: Rosalee railroad inspector Preferred Pharmacy: [facility] Insurance: Pau FLORES Prescription Benefit: none Living Will/HPOA: yes, son Everardo Osman LNOK: , son Living Arrangements: Patient lives with in a condo with 1 step to enter. Patient states he is independent at home. Transportation: Self, son DME/HHC: Patient stats he has shower chair, raised toilet, grab bars, and walker at home. Disposition Plan: Patient to discharge home with family support and follow-up plans in place. Lenora ALVARADO, RN, CM
--- NOTE | 2022-06-20 15:24 | CON.PCM.RE_ITS ---
Assessment & Plan Assessment/Plan (1) Acute kidney injury superimposed on chronic kidney disease: PLAN: The patient has underlying stage IIIb CKD. The most recent serum creatinine prior to this admission was from 01/13/2022 at 2.16 mg/dL, estimated GFR 32 mL/min. There has been a significant decline in GFR in the last 5 months. CEE is likely prerenal due to volume depletion with diarrhea and concurrent use of JAYDE inhibitor. Prerenal CEE could have also evolved to ischemic ATN as well. Ultrasound of the kidney from 06/20/2022 did not reveal any obstruction but redemonstrated small right kidney. Urinalysis looks benign. Agree with volume expansion with crystalloid with careful monitoring of volume status given history of systolic dysfunction. However, I would switch over to LR because of acidosis. Agree with holding lisinopril and furosemide. There is no hyperkalemia or volume overload. No acidosis is not severe. There fore, there is no need for kidney replacement therapy today. Recheck renal function, volume status, electrolytes, and acid-base status tomorrow. (2) Chronic kidney disease, stage 3b: PLAN: The patient has CKD stage IIIb and has been followed in the office by my partner, Dr. Barahona. The patient has multiple causes for his CKD. He has arteriosclerosis causing atrophic right kidney, cardiorenal syndrome, and possible diabetic kidney disease. Prior serum creatinine has been between 1.90 to 2.20 mg/dL. (3) Essential (primary) hypertension: PLAN: BP is acceptable off of lisinopril and furosemide. He is currently on carvedilol only. Continue monitor BP and adjust medication accordingly. (4) Metabolic acidosis: PLAN: Serum bicarbonate level was 19 mmol/L on presentation on 06/19/2022. Serum bicarbonate level is lower today at 17 mmol/L. Will switch maintenance fluid from normal saline which can exacerbate acidosis t o LR. Recheck serum bicarbonate level tomorrow. HPI Consult Data Date of Consult: 06/20/22 HPI Narrative Reason for Consultation: CEE on CKD HPI Narrative: ANTWAN GE, is a 77-year-old man with past history of type 2 diabetes mellitus, hypertension, CAD status post NSTEMI, combined systolic and diastolic dysfunction, hypertrophic cardiomyopathy status post ventricular septal myectomy, persistent atrial fibrillation, BPH, KIMBERLY, pulmonary hypertension, and gout. The patient was seen by our service last in May [address] Barahona in the office. At that time, his serum creatinine was 2.06 mg/dL. The patient has known atrophic right kidney which measured 8.5 cm. CKD was thought to be secondary to nephrosclerosis possibly from diabetic kidney disease as well as arteriosclerosis and cardiorenal syndrome. The patient presented to the hospital on 06/19/2022 because of abnormal labs. The patient has also been complaining of increasing shortness of breath. The patient was found to have BUN of 155 mg/dL and serum creatinine of 5.14 mg/dL. Last available serum creatinine prior to this presentation was from December 2021. His creatinine was 2.16 mg/dL at that time. Renal ultrasound from 06/20/2022 redemonstrated atrophic right kidney although there are no hydronephrosis. Prior to admission, the patient had been on lisinopril and furosemide. Urinalysis done on presentation did not reveal any RBCs or significant proteinuria. Prior to admission, the patient has had chronic diarrhea for the last 2 months. The patient reports fatigue and resting tremor for the past month. He also has been short of breath with activities for more than 2 months. There is no shortness of breath at rest. He denies lower extremity edema or orthopnea. There has been no chest pain. The patient denies chronic nausea or vomiting. The patient reports poor appetite although there has been no recent weight loss. He denies lower urinary tract symptoms such as frequency, urgency or hesitancy. The patient denies chronic use of NSAIDs. Prior to admission, he had been on JAYDE inhibitor, lisinopril, until he was admitted. [facility] Medical History (Updated 06/20/22 @ 16:[address] Yvan Bay MD) Abnormal ankle brachial index (LOKI) Anemia due to stage 3b chronic kidney disease Back pain Back pain BPH (benign prostatic hyperplasia) Cardiology follow-up encounter CHF NYHA class III Chronic combined systolic and diastolic CHF (congestive heart failure) Chronic kidney disease, stage 3b Claudication Constipation CPAP (continuous positive airway pressure) dependence Diabetes Dietary restriction Elevated troponin (01/2021) Essential (primary) hypertension Gout Heartburn History of echocardiogram History of edema History of irregular heartbeat History of non-ST elevation myocardial infarction (NSTEMI) (07/25/21) History of pain when walking History of steroid therapy History of tobacco use HLD (hyperlipidemia) Hypertension Hypertrophic cardiomyopathy Hypokalemia Joint pain Lactic acidosis Left bundle branch block Leg cramps Leukocytosis Longstanding persistent atrial fibrillation Night sweats 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 Obesity (BMI 30.0-34.9) KIMBERLY (obstructive sleep apnea) Poor appetite Presence of implantable pulmonary artery pressure and heart rate monitoring system (03/25/21) Renal infarct Restless legs Secondary pulmonary arterial hypertension Shortness of breath on exertion Wears glasses Home Medications cyanocobalamin (vitamin B-12) 1,000 mcg/mL injection solution 1,000 mcg IM Q30D supplement 06/08/16 [History Last Taken 01/29/19] finasteride 5 mg tablet 5 mg PO DAILY prostate 12/19/20 [History Last Taken 12/22/20] glimepiride 1 mg tablet 1 mg PO DAILY diabetes 02/13/21 [History Last Taken Unknown] warfarin 2.5 mg tablet 2.5 mg PO SUTUTHSA blood thinner 03/11/21 [History Last Taken 05/31/22] cholecalciferol (vitamin D3) 25 mcg (1,000 unit) capsule (Vitamin D3) 25 mcg PO DAILY vitamin 07/25/21 [History Last Taken Unknown] prednisone 5 mg tablet 65 mg PO DAILY gout 12/30/21 [History Last Taken 06/19/22] furosemide 40 mg tablet (Lasix) 40 mg PO BID #180 tabs 03/24/22 [Rx Last Taken Unknown] carvedilol 6.25 mg tablet 6.25 mg PO BID #60 tabs 04/22/22 [Rx Last Taken 06/04/22] lisinopril 10 mg tablet 20 mg PO DAILY 06/02/22 [History Last Taken 06/04/22] warfarin 5 mg tablet 5 mg PO QMWF 06/19/22 [History Last Taken Unknown] Allergy/AdvReac Type Severity Reaction Status Date / Time rivaroxaban [From Xarelto] Allergy Bleeding Verified 06/19/22 17:46 metoprolol AdvReac bradycardia Verified 06/19/22 17:46 Family History Father Heart disease Sister Heart disease Brother Heart disease Other Arthritis CVA (cerebral vascular accident) Depression Mental disorder Surgical History History of appendectomy History of cataract extraction History of left heart catheterization (02/19/21) History of transurethral resection of prostate (01/2019) History of ventricular septal myectomy (2000) Hx of umbilical hernia repair Social History Smoking Status: Former smoker how long ago did patient quit smokin years ago 0.25ppd second hand exposure: Yes alcohol intake: never caffeine: Yes Type: coffee Number of servings: 1 what type of physical activity do you participate in: other details: treadmill frequency: daily ROS ROS Narrative 10 out of 10 ROS was done. The information is otherwise noncontributory aside from what is already documented in HPI. Physical Exam Narrative General: Alert and oriented x3, no apparent distress. HEENT: Normocephalic, atraumatic. Mucous membrane moist without erythema. Neck: Supple, no JVD. Heart: Normal S1, S2. No rubs, or murmurs. Abdomen: Normal bowel sound, soft, nontender, no guarding or rebound. Extremities: No clubbing or cyanosis. There is 1+ nonpitting edema of the lower extremity. Musculoskeletal: Full range of motion, no joint swelling or erythema. Psychiatric: Normal affect and mood. Skin: Warm and dry, no rash. Lab / Micro Data Result Diagrams: 06/20/22 05:10 06/20/22 05:10 Labs: Laboratory Results - last 24 hr 06/19/22 18:40: Urine Color Yellow, Urine Clarity Clear, Urine pH 5.0, Ur Sp ecific [place] 1.015, Urine Protein Negative, Urine Glucose (UA) Normal, Urine Ketones Negative, Urine Occult Blood 10 H, Urine Nitrite Negative, Urine Bilirubin Negative, Urine Urobilinogen Normal, Ur Leukocyte Esterase Negative, Urine RBC 0 SEEN, Urine WBC 0 SEEN, Ur Squamous Epith Cells 0-5 SEEN, Urine Bacteria RARE, Urine Mucus 0 SEEN 06/19/22 18:45: WBC 10.5, RBC 3.51 L, Hgb 10.6 L, Hct 31.1 L, MCV 88.6, MCH 30.2, MCHC 34.1, RDW Std Deviation 46.2 H, RDW Coeff of Kiersten 14.3, Plt Count 220, MPV 12.2 H 10/20/22 18:45: Sodium 136, Potassium 4.1, Chloride 100, Carbon Dioxide 19.0 L, Anion Gap 17 H, BUN 155 H*, Creatinine 5.14 H, Estim Creat Clear Calc 10.14, Est GFR (MDRD) Af Amer 14 L, Est GFR (MDRD) Non-Af 12 L, BUN/Creatinine Ratio 30.2 H , Glucose 186 H, Calcium 8.7 06/19/22 18:45: B-Natriuretic Peptide 136.6 H 06/20/22 01:05: Ur Random Sodium 86, Urine Creatinine 40.90, Urine Urea Nitrogen 491 06/20/22 05:10: WBC 9.2, RBC 3.08 L, Hgb 9.2 L, Hct 27.6 L, MCV 89.6, MCH 29.9, MCHC 33.3, RDW Std Deviation 46.2 H, RDW Coeff of Kiersten 14.1, Plt Count 181, MPV 12.1 H, Immature Gran % (Auto) 0.700, Neut % (Auto) 77.8 H, Lymph % (Auto) 11.9 L, Cecil % (Auto) 8.5, Eos % (Auto) 0.8, Baso % (Auto) 0.3, Absolute Neuts (auto) 7.2, Absolute Lymphs (auto) 1.10, Nucleated RBC % 0 06/20/22 05:10: PT 25.0 H, INR 2.3 06/20/22 05:10: Sodium 138, Potassium 3.5, Chloride 105, Carbon Dioxide 17.0 L, Anion Gap 16 H, BUN 147 H*, Creatinine 4.68 H, Estim Creat Clear Calc 11.13, Est GFR (MDRD) Af Amer 16 L, Est GFR (MDRD) Non-Af 13 L, BUN/Creatinine Ratio 31.4 H , Glucose 76, Calcium 8.1 L 06/20/22 06:24: POC Glucose 87 06/20/22 11:52: POC Glucose 118 H Radiology Impression Renal Ultrasound 06/20/22 08:06 IMPRESSION: Stable atrophy of the right kidney. No hydronephrosis. Electronically Signed: Ricardo Donis MD at 11:58 EDT ,
[2022-06-20] MEDS: Finasteride 5 MG Tablet PO (16:26)
[2022-06-20] MEDS: Insulin Lispro 100 UNIT/ML INSULN.PEN SC ×2 (16:28→21:04)
[2022-06-20 17:00] LABS: Bedside Glucose 184 mg/dL (74-106)
[2022-06-20] MEDS: Lactated Ringers 1,000 ML 75 ML IV (17:12)
[2022-06-21] VITALS (9 sets, daily range): BP systolic 102–110; BP diastolic 54–70; PULSE 55–90; RESP 16–18; TEMP 36.3–36.7; O2SAT 95–97
[2022-06-21 00:31] LABS: Bedside Glucose 160 mg/dL (74-106)
[2022-06-21] MEDS: Lactated Ringers 1,000 ML 75 ML IV (05:45)
[2022-06-21 07:05] LABS: International Normalized Ratio 2.2; Prothrombin Time (Protime)PT. 24.2 SECONDS (11.7-14.9)
[2022-06-21 07:10] LABS: Bedside Glucose 108 mg/dL (74-106)
[2022-06-21 07:36] LABS: Albumin, Serum 2.7 g/dL (3.2-5.0); BUN 132 mg/dL (7-18); BUN/Creat Ratio 31.5 RATIO (10-20); Calcium,Total 8.5 mg/dL (8.5-10.1); Chloride 105 mmol/L (98-107); Creatinine, Serum 4.19 mg/dL (0.70-1.30); EST Glomerular Filtration Rate 15 mL/min (>60); Est Glom Filt Rate - Afr Amer 18 mL/min (>60); Estimated Creatinine Clearance 12.44 ml/min; Glucose 114 mg/dL (74-106); Phosphorus 5.8 mg/dL (2.5-4.9); Potassium 4.3 mmol/L (3.5-5.1); Sodium Level 138 mmol/L (136-145)
[2022-06-21] MEDS: Carvedilol 6.25 MG Tablet PO ×2 (09:00→16:32)
[2022-06-21] MEDS: Cholecalciferol (VIT D3) 25 MCG TABLET (1,000 UNITS) PO (09:00)
[2022-06-21] MEDS: Insulin Lispro 100 UNIT/ML INSULN.PEN SC ×2 (11:33→21:24)
--- NOTE | 2022-06-21 11:44 | PN.HOSP_ITS ---
Subjective Subjective Patient seen and examined. He complains of feeling a bit short of breath today. He denies any cough, palpitations, dizziness, nausea, vomiting or diarrhea. REview of systems otherwise negative. Objective Data Objective Data Vital Signs: Vital Signs Temp Pulse Resp BP Pulse Ox O2 Del Method 97.7 F L 57 L 18 102/70 95 Room Air 06/21/22 09:00 06/21/22 11:00 06/21/22 09:00 06/21/22 09:00 06/21/22 09:00 06/21/22 09:00 Oxygen Delivery Method Room Air Weight: 188 lb 11.451 oz Body Mass Index (BMI) 30.4 Intake & Output: Intake and Output for Last 24 Hours 06/19/22 06/20/22 06/21/22 23:59 23:59 23:59 Intake Total 3041.25 / 3041.25 941.25 / 941.25 Output Total 525 / 525 100 / 100 Balance 2516.25 / 2516.25 841.25 / 841.25 Lab / Micro Data Result Diagrams: 06/20/22 05:10 06/21/22 05:47 Labs: Laboratory Results - last 24 hr 06/20/22 11:52: POC Glucose 118 H 06/20/22 16:21: POC Glucose 184 H 06/20/22 21:02: POC Glucose 160 H 06/21/22 05:47: PT 24.2 H, INR 2.2 06/21/22 05:47: Sodium 138, Potassium 4.3, Chloride 105, Carbon Dioxide 21.0, BUN 132 H*, Creatinine 4.19 H, Estim Creat Clear Calc 12.44, Est GFR (MDRD) Af Amer 18 L, Est GFR (MDRD) Non-Af 15 L, BUN/Creatinine Ratio 31.5 H, Glucose 114 H, Calcium 8.5, Phosphorus 5.8 H, Albumin 2.7 L 06/21/22 06:36: POC Glucose 108 H Radiography Diagnostic Testing: Radiology Impression Renal Ultrasound 06/20/22 08:06 IMPRESSION: Stable atrophy of the right kidney. No hydronephrosis. Electronically Signed: Ricardo Donis MD at 11:58 EDT , Physical Exam Const alert, oriented x3 and no apparent distress HEENT head/scalp atraumatic, moist oral mucous membranes and oropharynx normal Head and Scalp: normocephalic Mouth: oral and palatal mucosa normal Eyes PERRL, EOMs intact bilaterally and conjunctivae normal Neck no lymphadenopathy, supple and no JVD Resp normal respiratory effort, no retractions, no use of accessory muscles and clear to auscultation bilaterally Cardio regular rate, regular rhythm, S1 normal heart sound, S2 normal heart sound and no murmurs GI normal to inspection, nondistended, normoactive bowel sounds, soft to palpation, non-tender and non-distended Extremity normal to inspection, full ROM and no clubbing, cyanosis or edema Neuro oriented x3, CN's II-XII intact bilaterally, moves all extremities and no focal motor deficits Sensorium / Orientation: awake, alert and oriented to person Speech: speech normal Motor Exam: strength 5/5 throughout Psych affect normal Assessment & Plan Assessment/Plan (1) Bradycardia: (2) Diarrhea: (3) Acute kidney injury superimposed on chronic kidney disease: PLAN: Plan #CEE on CKD 3B * Cr has trended down; was 5.14 on admission and now dwn to 4.19 * baseline Cr is ~ 2 * likely due to diuretic use and dehydration from diarrhea * home diuretic meds on hold. Lisinopril also on hold. * continue gently IVF * renal USG done showed stable atrophy of the right kidney with no hydronephrosis * nephrology on board * #COmbined systolic and diastolic heart failure * on carvedilol. Lisinopril on hold due to CEE * #Afib: on carvedilol. On coumadin. INR is therapeutic today at 2.2 #Type 2 diabetes mellitus: ISS> Accuchecks ACHS. Glimepiride on hold. #Gout: On prednisone. Placed on prednisone 40 mg daily. DVT prophylaxis: on coumadin. INR is therapeutic at 2.2 today Charges/Coding Visit Charges Inpatient E&M: 93077 Subs Hosp L2
[2022-06-21 11:56] LABS: Bedside Glucose 161 mg/dL (74-106)
[2022-06-21 12:57] LABS: Magnesium 1.2 mg/dL (1.6-2.6)
[2022-06-21] MEDS: Furosemide 40 MG/4 ML Vial IV (15:10)
[2022-06-21] MEDS: Magnesium Sulfate 4gm/100mL 4 GM/100 ML IV.SOLN. IV (16:30)
[2022-06-21] MEDS: Finasteride 5 MG Tablet PO (16:32)
[2022-06-21 16:45] LABS: Bedside Glucose 107 mg/dL (74-106)
[2022-06-21 21:45] LABS: Bedside Glucose 161 mg/dL (74-106)
[2022-06-22] VITALS (10 sets, daily range): BP systolic 93–136; BP diastolic 47–79; PULSE 63–81; RESP 18–20; TEMP 36.4–37; O2SAT 95–96
[2022-06-22 06:36] LABS: International Normalized Ratio 2.3; Prothrombin Time (Protime)PT. 25.3 SECONDS (11.7-14.9)
[2022-06-22 06:56] LABS: Bedside Glucose 117 mg/dL (74-106)
[2022-06-22 07:47] LABS: Anion Gap 12 (5-15); BUN 120 mg/dL (7-18); BUN/Creat Ratio 29.2 RATIO (10-20); Calcium,Total 8.3 mg/dL (8.5-10.1); Chloride 103 mmol/L (98-107); Creatinine, Serum 4.11 mg/dL (0.70-1.30); EST Glomerular Filtration Rate 15 mL/min (>60); Est Glom Filt Rate - Afr Amer 18 mL/min (>60); Estimated Creatinine Clearance 12.68 ml/min; Glucose 119 mg/dL (74-106); Potassium 3.7 mmol/L (3.5-5.1); Sodium Level 135 mmol/L (136-145)
[2022-06-22 09:07] LABS: Magnesium 2.3 mg/dL (1.6-2.6)
[2022-06-22] MEDS: Cholecalciferol (VIT D3) 25 MCG TABLET (1,000 UNITS) PO ×2 (09:07→09:08)
[2022-06-22] MEDS: Insulin Lispro 100 UNIT/ML INSULN.PEN SC (11:09)
[2022-06-22 11:35] LABS: Bedside Glucose 208 mg/dL (74-106)
--- NOTE | 2022-06-22 11:39 | PN.HOSP_ITS ---
Subjective Subjective Patient seen and examined. He has no active complaints. His shortness of breath has resolved. His blood pressure was running low today. Review of systems otherwise negative. Objective Data Objective Data Vital Signs: Vital Signs Temp Pulse Resp BP Pulse Ox O2 Del Method 97.6 F L 78 18 93/47 L 96 Room Air 06/22/22 08:50 06/22/22 11:00 06/22/22 08:50 06/22/22 08:50 06/22/22 08:50 06/22/22 08:50 Oxygen Delivery Method Room Air Weight: 186 lb 11.704 oz Body Mass Index (BMI) 30.4 Intake & Output: Intake and Output for Last 24 Hours 06/20/22 06/21/22 06/22/22 23:59 23:59 23:59 Intake Total 3041.25 / 3041.25 2641.25 / 2641.25 500 / 500 Output Total 525 / 525 100 / 100 350 / 350 Balance 2516.25 / 2516.25 2541.25 / 2541.25 150 / 150 Lab / Micro Data Result Diagrams: 06/20/22 05:10 06/22/22 05:30 Labs: Laboratory Results - last 24 hr 06/21/22 05:47: Magnesium 1.2 L 06/21/22 11:27: POC Glucose 161 H 06/21/22 16:24: POC Glucose 107 H 06/21/22 21:22: POC Glucose 161 H 06/22/22 05:30: PT 25.3 H, INR 2.3 06/22/22 05:30: Sodium 135 L, Potassium 3.7, Chloride 103, Carbon Dioxide 20.0 L , Anion Gap 12, BUN 120 H*, Creatinine 4.11 H, Estim Creat Clear Calc 12.68, Est GFR (MDRD) Af Amer 18 L, Est GFR (MDRD) Non-Af 15 L, BUN/Creatinine Ratio 29.2 H , Glucose 119 H, Calcium 8.3 L 06/22/22 06:22: POC Glucose 117 H 06/22/22 06:57: Magnesium 2.3 06/22/22 11:07: POC Glucose 208 H Physical Exam Const alert, oriented x3 and no apparent distress HEENT head/scalp atraumatic, moist oral mucous membranes and oropharynx normal Head and Scalp: normocephalic Mouth: oral and palatal mucosa normal Eyes PERRL, EOMs intact bilaterally and conjunctivae normal Neck no lymphadenopathy, supple and no JVD Resp normal respiratory effort, no retractions, no use of accessory muscles and clear to auscultation bilaterally Cardio regular rate, regular rhythm, S1 normal heart sound, S2 normal heart sound and no murmurs GI normal to inspection, nondistended, normoactive bowel sounds, soft to palpation, non-tender and non-distended Extremity normal to inspection, full ROM and no clubbing, cyanosis or edema Neuro oriented x3, CN's II-XII intact bilaterally, moves all extremities and no focal motor deficits Sensorium / Orientation: awake, alert and oriented to person Speech: speech normal Motor Exam: strength 5/5 throughout Psych affect normal Assessment & Plan Assessment/Plan (1) Bradycardia: (2) Diarrhea: (3) Acute kidney injury superimposed on chronic kidney disease: PLAN: Plan #CEE on CKD 3B * Cr has trended down; was 5.14 on admission and now down to 4.1 today * baseline Cr is ~ 2 * likely due to diuretic use and dehydration from diarrhea * home diuretic meds on hold. Lisinopril also on hold. * renal USG done showed stable atrophy of the right kidney with no hydronephrosi s * nephrology on board * IVF discontinued yesterday o/a of patient feeling short of breath. * blood pressure running low today so fluids resumed * * #Hypotension * Blood pressure this morning was 93/47. Patient given a bolus of normal saline 500 cc LR continue gentle hydration at 75 cc/h for 2 bags. * #COmbined systolic and diastolic heart failure * on carvedilol. Lisinopril on hold due to CEE * Carvedilol today due to hypotension. * #Severe aortic stenosis: * 2D echo from July 2021 showed moderate to severe restriction of aortic valve. * care taken not to give too much fluids due to concern for fluid overload and flash pulmonary edema * #Afib: on carvedilol. On coumadin. INR is therapeutic today at 2.2. Carvedilol held due to hypotension #Type 2 diabetes mellitus: ISS> Accuchecks ACHS. Glimepiride on hold. #Gout: Apparently had been on prednisone chronically for gout he thought was for prevention of gout. We will taper off prednisone DVT prophylaxis: on coumadin. INR is therapeutic at 2.3 today Charges/Coding Visit Charges Inpatient E&M: 66318 Subs Hosp L3
[2022-06-22] MEDS: 0.9% Normal Saline 1,000 ML 75 ML IV (12:38)
[2022-06-22] MEDS: Finasteride 5 MG Tablet PO (16:59)
--- NOTE | 2022-06-22 17:18 | PN.RENAL_ITS ---
Subjective Subjective No new complaints Objective Data Objective Data Vital Signs: Vital Signs Temp Pulse Resp BP Pulse Ox O2 Del Method 97.7 F L 72 18 136/79 H 96 Room Air 06/22/22 14:45 06/22/22 15:50 06/22/22 14:45 06/22/22 14:45 06/22/22 15:33 06/22/22 15:33 Oxygen Delivery Method Room Air Weight: 84.7 kg Body Mass Index (BMI) 30.4 Intake & Output: Intake and Output for Last 24 Hours 06/20/22 06/21/22 06/22/22 23:59 23:59 23:59 Intake Total 3041.25 / 3041.25 2641.25 / 2641.25 860 / 860 Output Total 525 / 525 100 / 100 350 / 350 Balance 2516.25 / 2516.25 2541.25 / 2541.25 510 / 510 Lab / Micro Data Result Diagrams: 06/20/22 05:10 06/22/22 05:30 Labs: Laboratory Results - last 24 hr 06/21/22 21:22: POC Glucose 161 H 06/22/22 05:30: PT 25.3 H, INR 2.3 06/22/22 05:30: Sodium 135 L, Potassium 3.7, Chloride 103, Carbon Dioxide 20.0 L , Anion Gap 12, BUN 120 H*, Creatinine 4.11 H, Estim Creat Clear Calc 12.68, Est GFR (MDRD) Af Amer 18 L, Est GFR (MDRD) Non-Af 15 L, BUN/Creatinine Ratio 29.2 H , Glucose 119 H, Calcium 8.3 L 06/22/22 06:22: POC Glucose 117 H 06/22/22 06:57: Magnesium 2.3 06/22/22 11:07: POC Glucose 208 H Physical Exam Narrative Alert awake oriented x 3 no obvious distress no pallor no icterus no JVD s1s2 no murmurs lungs clear abdomen soft no organomegaly no edema no cyanosis Assessment & Plan Assessment/Plan (1) Chronic kidney disease, stage 3b: (2) Acute kidney injury superimposed on chronic kidney disease: PLAN: Baseline creatinine is around 2.0 as of December of this year. Presented with a creatinine of 5.1 and a BUN of 150. Apparently he started allopurinol for gout in February 1 week. Started having change in appetite and other uremic symptoms end of February. Started having diarrhea about the same time. Renal ultrasound is not impressive, urine analysis is not impressive. Differential includes allopurinol induced interstitial nephritis Versus volume depletion related acute renal failure BUN and creatinine are better however he still has a metallic taste in the mouth. Poor appetite for the last 2 weeks. Continue fluids 1 more day. We may plan for kidney biopsy depending on labs tomorrow. He also says he was taking p rednisone for gout. Will call primary care physician office tomorrow.
[2022-06-22 17:21] LABS: Bedside Glucose 109 mg/dL (74-106)
[2022-06-22 21:45] LABS: Bedside Glucose 127 mg/dL (74-106)
[2022-06-23] VITALS (10 sets, daily range): BP systolic 116–153; BP diastolic 62–78; PULSE 64–97; RESP 16–20; TEMP 36.6–37.2; O2SAT 94–97
[2022-06-23] MEDS: 0.9% Normal Saline 1,000 ML 75 ML IV ×2 (04:07→21:17)
[2022-06-23 06:47] LABS: International Normalized Ratio 2.3; Prothrombin Time (Protime)PT. 24.8 SECONDS (11.7-14.9)
[2022-06-23 06:56] LABS: Bedside Glucose 108 mg/dL (74-106)
[2022-06-23 07:01] LABS: Anion Gap 11 (5-15); BUN 103 mg/dL (7-18); BUN/Creat Ratio 28.8 RATIO (10-20); Calcium,Total 8.3 mg/dL (8.5-10.1); Chloride 107 mmol/L (98-107); Creatinine, Serum 3.58 mg/dL (0.70-1.30); EST Glomerular Filtration Rate 18 mL/min (>60); Est Glom Filt Rate - Afr Amer 21 mL/min (>60); Estimated Creatinine Clearance 14.55 ml/min; Glucose 113 mg/dL (74-106); Potassium 4.1 mmol/L (3.5-5.1); Sodium Level 137 mmol/L (136-145)
[2022-06-23] MEDS: Insulin Lispro 100 UNIT/ML INSULN.PEN SC (11:36)
--- NOTE | 2022-06-23 11:43 | PN.RENAL_ITS ---
Subjective Subjective No new complaints Objective Data Objective Data Vital Signs: Vital Signs Temp Pulse Resp BP Pulse Ox O2 Del Method 98.9 F 91 18 153/78 H 95 Room Air 06/23/22 10:18 06/23/22 10:18 06/23/22 10:18 06/23/22 10:18 06/23/22 10:18 06/23/22 10:18 Oxygen Delivery Method Room Air Weight: 85 kg Body Mass Index (BMI) 30.4 Intake & Output: Intake and Output for Last 24 Hours 06/21/22 06/22/22 06/23/22 23:59 23:59 23:59 Intake Total 2641.25 / 2641.25 980 / 980 865 / 865 Output Total 100 / 100 350 / 350 700 / 700 Balance 2541.25 / 2541.25 630 / 630 165 / 165 Lab / Micro Data Result Diagrams: 06/20/22 05:10 06/23/22 05:35 Labs: Laboratory Results - last 24 hr 06/22/22 16:56: POC Glucose 109 H 06/22/22 21:18: POC Glucose 127 H 06/23/22 05:35: PT 24.8 H, INR 2.3 06/23/22 05:35: Sodium 137, Potassium 4.1, Chloride 107, Carbon Dioxide 19.0 L, Anion Gap 11, BUN 103 H*, Creatinine 3.58 H, Estim Creat Clear Calc 14.55, Est GFR (MDRD) Af Amer 21 L, Est GFR (MDRD) Non-Af 18 L, BUN/Creatinine Ratio 28.8 H , Glucose 113 H, Calcium 8.3 L 06/23/22 06:36: POC Glucose 108 H Physical Exam Narrative Alert awake oriented x 3 no obvious distress no pallor no icterus no JVD s1s2 no murmurs lungs clear abdomen soft no organomegaly no edema no cyanosis Assessment & Plan Assessment/Plan (1) Chronic kidney disease, stage 3b: (2) Acute kidney injury superimposed on chronic kidney disease: PLAN: Baseline creatinine is around 2.0 as of December of this year. Presented with a creatinine of 5.1 and a BUN of 150. Apparently he started allopurinol for gout in February 28 week. Started having change in appetite and other uremic symptoms end of February. Started having diarrhea about the same time. Renal ultrasound is not impressive, urine analysis is not impressive. Differential includes allopurinol induced interstitial nephritis Versus volume depletion related acute renal failure BUN and creatinine are better. Uremic symptoms are slowly resolving. Diarrhea is resolved No plans for kidney biopsy No indication for dialysis Can likely be discharged tomorrow Will arrange follow-up after discharge Stop allopurinol
[2022-06-23 11:56] LABS: Bedside Glucose 218 mg/dL (74-106)
--- NOTE | 2022-06-23 12:16 | NURSING ---
Pt's spouse is on inpatient rehab unit and having a family meeting today starting at noon until around 12:30pm. This RN talked to Dr. Beauchamp to see if patient would be able to attend the family meeting. Dr. Beauchamp stated that he was fine with patient attending spouse's meeting on rehab floor. meat butcher notified. It was explained to patient that he would not be able to be monitored on the monitoring and evaluation advisor during his time off this unit, pt ok with this. Pt transported to inpatient rehab unit via wheelchair. Pt will return back to PCU when family meeting is over on rehab unit.
--- NOTE | 2022-06-23 14:25 | NURSING ---
Pt returned to the unit from spouse's family meeting on the inpatient rehab unit.
[2022-06-23] MEDS: Docusate Sodium 100 MG Capsule 200 MG PO (16:06)
[2022-06-23 17:15] LABS: Bedside Glucose 167 mg/dL (74-106)
[2022-06-23] MEDS: Finasteride 5 MG Tablet PO (17:33)
[2022-06-23] MEDS: 0.9% Saline Lock 10 ML Syringe IV (17:34)
--- NOTE | 2022-06-23 19:27 | PN.HOSP_ITS ---
Subjective Subjective Patient was seen and examined today, I briefly talked with nephrology about his care, patient's creatinine and BUN have improved since his admission. Nephrology recommended continuing IV fluids at this time and rechecking his labs tomorrow. Objective Data Objective Data Vital Signs: Vital Signs Temp Pulse Resp BP Pulse Ox O2 Del Method 98.1 F 70 16 149/72 H 96 Room Air 06/23/22 16:07 06/23/22 16:07 06/23/22 16:07 06/23/22 16:07 06/23/22 16:07 06/23/22 16:07 Oxygen Delivery Method Room Air Weight: 85 kg Body Mass Index (BMI) 30.4 Intake & Output: Intake and Output for Last 24 Hours 06/21/22 06/22/22 06/23/22 23:59 23:59 23:59 Intake Total 2641.25 / 2641.25 980 / 980 2311.25 / 2311.25 Output Total 100 / 100 350 / 350 1200 / 1200 Balance 2541.25 / 2541.25 630 / 630 1111.25 / 1111.25 Lab / Micro Data Result Diagrams: 06/20/22 05:10 06/23/22 05:35 Labs: Laboratory Results - last 24 hr 06/22/22 21:18: POC Glucose 127 H 06/23/22 05:35: PT 24.8 H, INR 2.3 06/23/22 05:35: Sodium 137, Potassium 4.1, Chloride 107, Carbon Dioxide 19.0 L, Anion Gap 11, BUN 103 H*, Creatinine 3.58 H, Estim Creat Clear Calc 14.55, Est GFR (MDRD) Af Amer 21 L, Est GFR (MDRD) Non-Af 18 L, BUN/Creatinine Ratio 28.8 H , Glucose 113 H, Calcium 8.3 L 06/23/22 06:36: POC Glucose 108 H 06/23/22 11:33: POC Glucose 218 H 06/23/22 16:56: POC Glucose 167 H Physical Exam Const alert, oriented x3, no apparent distress and healthy appearing General Appearance: cooperative, well kempt and well developed Orientation / Consciousness: awake, oriented to person, oriented to place and oriented to time HEENT normocephalic and moist oral mucous membranes Eyes PERRL, EOMs intact bilaterally and conjunctivae normal Neck supple, no JVD, thyroid normal and no carotid bruits General: trachea midline Resp normal respiratory effort, no retractions, no use of accessory muscles and clear to auscultation bilaterally Auscultation: Negative for rales, rhonchi or wheezes Cardio S1 normal heart sound, S2 normal heart sound, no murmurs, no rub and no gallops Cardio Narrative: Heart rate and rhythm is irregular GI normal to inspection, nondistended, normoactive bowel sounds, soft to palpation, non-tender and non-distended Extremity normal to inspection and no clubbing, cyanosis or edema Skin no rashes or lesions noted General Skin Exam: no breakdown Neuro oriented x3, CN's II-XII intact bilaterally, moves all extremities, no focal motor deficits and no sensory deficits noted Sensorium / Orientation: awake and alert Speech: speech normal Psych affect normal Assessment & Plan Assessment/Plan (1) Chronic kidney disease, stage 3b: PLAN: Plan 1. Acute kidney injury on a backdrop of chronic stage IIIb kidney disease secondary to type 2 diabetes-patient's creatinine and BUN are improving, continue IV fluids and recheck labs #2 chronic atrial fibrillation-patient is currently on warfarin and rate limiting medication #3 essential hypertension-patient will remain on his present medication #4 type 2 diabetes-patient's blood sugar is being monitored, sliding scale insulin is being used as needed, patient was on Amaryl as an outpatient, this has been held at this time #5 chronic use of anticoagulants due to hypercoagulable state from atrial fibrillation-patient is currently on warfarin, INR today was 2.3 Charges/Coding Visit Charges Inpatient E&M: 68390 Subs Hosp L2
[2022-06-24 00:31] LABS: Bedside Glucose 145 mg/dL (74-106)
[2022-06-24 03:00] VITALS: PULSE 69
[2022-06-24 03:20] VITALS: BP 114/70; PULSE 55; RESP 20; TEMP 36.7; O2SAT 96
[2022-06-24 06:46] LABS: Bedside Glucose 106 mg/dL (74-106)
[2022-06-24 06:49] LABS: BUN 87 mg/dL (7-18); BUN/Creat Ratio 27.8 RATIO (10-20); Calcium,Total 8.4 mg/dL (8.5-10.1); Chloride 109 mmol/L (98-107); Creatinine, Serum 3.13 mg/dL (0.70-1.30); EST Glomerular Filtration Rate 21 mL/min (>60); Est Glom Filt Rate - Afr Amer 25 mL/min (>60); Estimated Creatinine Clearance 16.65 ml/min; Glucose 113 mg/dL (74-106); Potassium 3.8 mmol/L (3.5-5.1); Sodium Level 138 mmol/L (136-145)
[2022-06-24 06:50] LABS: Anion Gap 10 (5-15)
[2022-06-24 07:00] VITALS: PULSE 83
[2022-06-24 07:33] VITALS: O2SAT 94
--- NOTE | 2022-06-24 07:33 | DCINST_ITS ---
Discharge Instructions Diet Discharge Diet: 1800 Calorie Control Diet Activity Discharge Activity: Return to Normal Activity Weight Bearing Status: Full weight bearing Follow Up Care Test Results: Test results from this visit will be discussed in further detail at your follow- up appointment, if applicable. Discharge Plan Admission Admit Date/Time: 06/19/22 22:46 Primary Reason for Your Visit: acute kidney injury Attending Provider: Mikhail Beauchamp Primary Care Provider: Howard Escobar Consulting Providers: Dl Jackson ; Yvan Bay ; Snehal Hernandez Discharge Orders/Prescriptions Prescriptions: Continued finasteride 5 mg tablet 5 mg PO DAILY Label Comments: TAKE 1 TABLET BY MOUTH ONCE DAILY glimepiride 1 mg tablet 1 mg PO DAILY cyanocobalamin (vitamin B-12) 1,000 MCG/ML solution 1,000 mcg IM Q30D warfarin 2.5 mg tablet 2.5 mg PO SUTUTHSA Rx Instructions: Managed by PCP cholecalciferol (vitamin D3) [Vitamin D3] 25 mcg (1,000 unit) Capsule 25 mcg PO DAILY lisinopril 10 mg tablet 20 mg PO DAILY warfarin 5 mg tablet 5 mg PO QMWF carvedilol 6.25 mg tablet 6.25 mg PO BID Qty: 60 11RF Rx Instructions: must administer with a meal/food Discontinued prednisone 5 mg tablet 65 mg PO DAILY furosemide [Lasix] 40 mg tablet 40 mg PO BID Qty: 180 3RF Referrals / Follow Up: Howard Escobar DO [Primary Care Provider] - Yvan Bay MD [Med Staff - Consulting] - In 1 Week Disposition Disposition (needs filled in before D/C Order can be placed): Home, Self Care
--- NOTE | 2022-06-24 07:46 | DS.PCM_ITS ---
Providers Date of Admission: 06/19/22 Date of Discharge: 06/24/22 Primary Care Physician: Dr. Howard Escobar, Consultations 06/20/22 15:08 Consult: Nephrology Routine Consulting Provider: Yvan Bay Reason for Consult: CEE on CKD EMERGENT Consult: No MD Notified: Yes Date Notified: 06/20/22 Time Notified: 15:08 Method of Notification: Text Reason For Visit: CEE Diagnosis Discharge Diagnosis (1) Chronic kidney disease, stage 3b: Status: Acute Code(s): N18.32 - Chronic kidney disease, stage 3b Plan 1. Acute kidney injury on a backdrop of chronic stage IIIb kidney disease secondary to type 2 diabetes-patient's creatinine and BUN are improving, continue IV fluids and recheck labs #2 chronic atrial fibrillation-patient is currently on warfarin and rate limiting medication #3 essential hypertension-patient will remain on his present medication #4 type 2 diabetes-patient's blood sugar is being monitored, sliding scale insulin is being used as needed, patient was on Amaryl as an outpatient, this has been held at this time #5 chronic use of anticoagulants due to hypercoagulable state from atrial fibrillation-patient is currently on warfarin, INR today was 2.3 #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 Medications at Discharge Home Medications finasteride 5 mg tablet 5 mg PO DAILY prostate 12/19/20 glimepiride 1 mg tablet 1 mg PO DAILY diabetes 02/13/21 warfarin 2.5 mg tablet 2.5 mg PO SUTUTHSA blood thinner 03/11/21 carvedilol 6.25 mg tablet 6.25 mg PO BID #60 tabs 04/22/22 warfarin 5 mg tablet 5 mg PO QMWF 06/19/22 cyanocobalamin (vitamin B-12) 1,000 mcg tablet (Vitamin B-12) 1,000 mcg PO DAILY 06/26/22 lisinopril 10 mg tablet 5 mg PO DAILY 06/26/22 Hospital Course Operations None Procedures None Summary of Care Provided Minutes Spent on Discharge: 32 Hospital Course: 77-year-old white male was seen in the emergency room after being sent in due to abnormal outpatient labs. Patient stated he has had diarrhea and loose stools for approximately 2 months, he denied any nausea or vomiting. 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 Patient's beta natruretic peptide was slightly elevated at 136. Patient was admitted to PCU for acute kidney injury on chronic kidney disease stage IIIb, he was given IV fluids and seen in consultation by nephrology. Patient's medications were adjusted and his labs were followed. BUN and creatinine were noted to be improving during his hospital stay. On 06/24/2022, patient was seen and examined: On examination he appeared in good health and spirits. Vital signs as documented. Skin warm and dry and without overt rashes. Neck without JVD, neck was supple, trachea midline, thyroid was normal. Lungs clear bilaterally, normal air movement was noted. Heart exam notable for irregular rhythm, normal sounds and absence of murmurs, rubs or gallops. Abdomen unremarkable and without evidence of organomegaly, masses, or abdominal aortic enlargement. Bowel sounds are present, abdomen is not distended. Extremities nonedematous, no cyanosis was noted, no clubbing was noted. Neuro: Cranial nerves II through XII are grossly intact, no focal motor deficits were noted, sensation to light touch and pinprick intact, motor exam 5/5 throughout. Psych: Patient is alert and oriented x3, he does not appear anxious or depressed, he does not appear agitated. On 06/24/2022, patient was seen and examined and felt to be stable for discharge home Weight / BMI Weight Weight: 85.5 kg Body Mass Index (BMI) 30.4 ABG / Lab / Microbiology Data Result Diagrams: 06/20/22 05:10 06/24/22 05:15 Laboratory: Laboratory Results - last 24 hr 06/23/22 11:33: POC Glucose 218 H 06/23/22 16:56: POC Glucose 167 H 06/23/22 21:15: POC Glucose 145 H 06/24/22 05:15: Sodium 138, Potassium 3.8, Chloride 109 H, Carbon Dioxide 19.0 L , Anion Gap 10, BUN 87 H, Creatinine 3.13 H, Estim Creat Clear Calc 16.65, Est GFR (MDRD) Af Amer 25 L, Est GFR (MDRD) Non-Af 21 L, BUN/Creatinine Ratio 27.8 H , Glucose 113 H, Calcium 8.4 L 06/24/22 06:13: POC Glucose 106 D/C Instructions Discharge Diet: 1800 Calorie Control Diet Weight Bearing Status: Full weight bearing Meaningful Use Info Meaningful Use Diagnoses (Choose all that apply): None applicable Discharge Plan Admission Admit Date/Time: 06/19/22 22:46 Primary Reason for Your Visit: acute kidney injury Attending Provider: Mikhail Beauchamp Primary Care Provider: Howard Escobar Consulting Providers: Dl Jackson ; Yvan Bay ; Snehal Hernandez Discharge Orders/Prescriptions Prescriptions: Continued finasteride 5 mg tablet 5 mg PO DAILY Label Comments: TAKE 1 TABLET BY MOUTH ONCE DAILY glimepiride 1 mg tablet 1 mg PO DAILY warfarin 2.5 mg tablet 2.5 mg PO SUTUTHSA Rx Instructions: Managed by PCP warfarin 5 mg tablet 5 mg PO QMWF carvedilol 6.25 mg tablet 6.25 mg PO BID Qty: 60 11RF Rx Instructions: must administer with a meal/food Discontinued prednisone 5 mg tablet 65 mg PO DAILY furosemide [Lasix] 40 mg tablet 40 mg PO BID Qty: 180 3RF No Action cyanocobalamin (vitamin B-12) [Vitamin B-12] 1,000 mcg tablet 1,000 mcg PO DAILY lisinopril 10 mg tablet 5 mg PO DAILY Referrals / Follow Up: Howard Escobar DO [Primary Care Provider] - 07/02/22 2:30 pm Raulito Barahona MD [Med Staff - Consulting] - 06/25/22 1:45 pm Disposition Disposition (needs filled in before D/C Order can be placed): Home, Self Care Charges/Coding Visit Charges Inpatient E&M: 88413 Disch Hosp
[2022-06-24] MEDS: Cholecalciferol (VIT D3) 25 MCG TABLET (1,000 UNITS) PO (08:23)
[2022-06-24 09:08] VITALS: O2SAT 89; O2SAT 98
[2022-06-24 09:20] VITALS: BP 135/76; PULSE 92; RESP 18; TEMP 36.2; O2SAT 92
== END 2022-06-24 12:34 | disposition home or self-care (01) | DRG 683 ==
LOC: ED 22:51 → PCU 23:04
PROVIDERS: Internal Medicine Nephrology; Student in an Organized Health Care Education/Training Program; Admitting Provider Hospitalist; Emergency Provider Emergency Medicine; PCP Family Medicine; Visit Provider Internal Medicine
DX: N17.9 Acute kidney failure, unspecified (principal); I42.2 Other hypertrophic cardiomyopathy; D68.59 Other primary thrombophilia; E87.20 Acidosis, unspecified; I13.0 Hypertensive heart and chronic kidney disease with heart failure and stage 1 through stage 4 chronic kidney disease, or unspecified chronic kidney disease; I50.42 Chronic combined systolic (congestive) and diastolic (congestive) heart failure; I48.20 Chronic atrial fibrillation, unspecified; I48.11 Longstanding persistent atrial fibrillation; E11.21 Type 2 diabetes mellitus with diabetic nephropathy; E11.51 Type 2 diabetes mellitus with diabetic peripheral angiopathy without gangrene; N18.32 Chronic kidney disease, stage 3b; E11.65 Type 2 diabetes mellitus with hyperglycemia; E11.22 Type 2 diabetes mellitus with diabetic chronic kidney disease; E78.5 Hyperlipidemia, unspecified; M10.9 Gout, unspecified; R19.7 Diarrhea, unspecified; I08.1 Rheumatic disorders of both mitral and tricuspid valves; I25.10 Atherosclerotic heart disease of native coronary artery without angina pectoris; Z87.891 Personal history of nicotine dependence; N26.1 Atrophy of kidney (terminal); Z79.52 Long term (current) use of systemic steroids; Z82.3 Family history of stroke; Z79.01 Long term (current) use of anticoagulants; Z79.84 Long term (current) use of oral hypoglycemic drugs
CPT/HCPCS: 36415; 71046; 76770; 80048; 80069; 81001; 82570; 82962; 83036; 83735; 83880; 84300; 84540; 84550; 85025; 85027; 85610; 93005; 99283; J7030; J7040; J7120; A4216; J1940

== ENCOUNTER → 2022-06-19 | Outpatient (CLI) | payer MEDICARE, BC, SELFPAY ==
--- NOTE | 2022-06-19 15:55 | RAD_ITS ---
INDICATION: shortness of breath EXAMINATION/TECHNIQUE: X-RAY - frontal and lateral views of chest COMPARISON: [facility] chest x-ray from 07/25/2021 FINDINGS: LINES/DEVICES: Sternotomy wires noted. LUNGS: No overt pulmonary edema or focal airspace consolidation. No sizable pleural effusion. No detectable pneumothorax. MEDIASTINUM AND CARDIOVASCULAR STRUCTURES: Stable borderline cardiomegaly. Previous CABG. Atherosclerotic calcifications along aorta. BONES AND SOFT TISSUES: Skeletal degenerative changes. RAD/Chest PA and Lateral IMPRESSION: No radiographic evidence of acute cardiopulmonary disease. Electronically Signed: Mikhail Polk MD at 5:26 EDT ,
[2022-06-19 16:25] LABS: Absolute Neutrophil Count 9.9 X10^3/uL (2.0-7.7); Basophil# 0.03 X10^3/uL; Basophil% 0.3 % (0-1); Eosinophil# 0.06 X10^3/uL; Eosinophils% 0.5 % (0-5); Hemoglobin 10.9 g/dL (13.0-16.5); Lymphocyte % 5.2 % (19-41); Mean Corp Hgb Conc 35.2 g/dL (32-36); Mean Corpuscular Hgb 30.8 pg (27.0-32.0); Mean Corpuscular Volume 87.6 fL (80-94); Mean Platelet Vol. 12.1 fl (6.2-12.0); Monocyte# 0.74 X10^3/uL; Monocyte% 6.5 % (0-10); NRBC Flagged by Analyzer 0 % (0-5); Neutrophil # 9.93 X10^3/uL (2.7-7.7); Neutrophil % 86.7 % (47-70); POSITIVE DIFFERENTIAL YES; Platelet Count 209 K/mm3 (150-450); RBC Distribution Width CV 14.4 % (11.6-14.6); RBC Distribution Width SD 46.2 fl (35.1-43.9); Red Blood Count 3.54 M/mm3 (4.6-6.2); White Blood Count 11.5 K/mm3 (4.4-11.0)
[2022-06-19 16:28] LABS: International Normalized Ratio 2.2; Prothrombin Time (Protime)PT. 24.5 SECONDS (11.7-14.9)
[2022-06-19 16:52] LABS: Differential Indicated SCAN CRITERIA MET
[2022-06-19 16:53] LABS: BNP,B-Type NATRIURETIC PEPTIDE 137.5 pg/mL (0-100)
[2022-06-19 16:54] LABS: Anisocytosis RARE; Platelet Estimate ADEQUATE (ADEQ); Red Cell Morphology N CHROM NORMAL (NORM C&C)
[2022-06-19 17:20] LABS: Anion Gap 17 (5-15); BUN 161 mg/dL (7-18); BUN/Creat Ratio 30.6 RATIO (10-20); Calcium,Total 8.7 mg/dL (8.5-10.1); Chloride 100 mmol/L (98-107); Creatinine, Serum 5.26 mg/dL (0.70-1.30); EST Glomerular Filtration Rate 11 mL/min (>60); Est Glom Filt Rate - Afr Amer 14 mL/min (>60); Glucose 200 mg/dL (74-106); Potassium 4.1 mmol/L (3.5-5.1); Sodium Level 136 mmol/L (136-145); Uric Acid 10.5 mg/dL (3.5-7.2)
== END | disposition home or self-care (01) ==
LOC: LAB 15:37
PROVIDERS: Nurse Practitioner Family; PCP Family Medicine; Referring Provider Family Medicine; Visit Provider Family Medicine
DX: E11.9 Type 2 diabetes mellitus without complications (principal); I50.42 Chronic combined systolic (congestive) and diastolic (congestive) heart failure; I42.8 Other cardiomyopathies; I11.0 Hypertensive heart disease with heart failure; I27.20 Pulmonary hypertension, unspecified; I48.11 Longstanding persistent atrial fibrillation; M10.9 Gout, unspecified; Z79.01 Long term (current) use of anticoagulants; Z95.818 Presence of other cardiac implants and grafts; Z98.890 Other specified postprocedural states; R06.02 Shortness of breath
CPT/HCPCS: 71046; 80048; 83036; 83880; 84550; 85025; 85610

== ENCOUNTER → 2022-06-26 | Outpatient (CLI) | payer MEDICARE, BC, SELFPAY ==
[2022-06-26 16:17] LABS: ALB/GLOB Ratio 0.7 RATIO (0.9-2.4); AST(SGOT) 26 U/L (15-37); Alanine Aminotransfer ALT/SGPT 37 U/L (16-61); Albumin, Serum 2.8 g/dL (3.2-5.0); Alkaline Phosphatase 64 U/L (45-117); Anion Gap 9 (5-15); BUN 68 mg/dL (7-18); BUN/Creat Ratio 23.1 RATIO (10-20); Calcium,Total 8.6 mg/dL (8.5-10.1); Chloride 107 mmol/L (98-107); Creatinine, Serum 2.95 mg/dL (0.70-1.30); EST Glomerular Filtration Rate 22 mL/min (>60); Est Glom Filt Rate - Afr Amer 27 mL/min (>60); Globulin 4.1 g/dL (2.2-4.2); Glucose 114 mg/dL (74-106); Protein, Total 6.9 g/dL (6.4-8.2); Sodium Level 137 mmol/L (136-145)
== END | disposition home or self-care (01) ==
LOC: LAB 15:36
PROVIDERS: Nurse Practitioner Family; PCP Family Medicine; Visit Provider Internal Medicine Cardiovascular Disease
DX: N18.32 Chronic kidney disease, stage 3b (principal); I42.8 Other cardiomyopathies; I25.2 Old myocardial infarction; I12.9 Hypertensive chronic kidney disease with stage 1 through stage 4 chronic kidney disease, or unspecified chronic kidney disease; E78.5 Hyperlipidemia, unspecified
CPT/HCPCS: 36415; 80053

== ENCOUNTER → 2022-06-30 | Outpatient (CLI) | payer MEDICARE, BC, SELFPAY ==
[2022-06-30 16:26] LABS: Anion Gap 10 (5-15); BUN 62 mg/dL (7-18); BUN/Creat Ratio 24.5 RATIO (10-20); Calcium,Total 8.8 mg/dL (8.5-10.1); Chloride 109 mmol/L (98-107); Creatinine, Serum 2.53 mg/dL (0.70-1.30); EST Glomerular Filtration Rate 26 mL/min (>60); Est Glom Filt Rate - Afr Amer 32 mL/min (>60); Glucose 130 mg/dL (74-106); Potassium 4.2 mmol/L (3.5-5.1); Sodium Level 140 mmol/L (136-145)
== END | disposition home or self-care (01) ==
LOC: LAB 14:57
PROVIDERS: Nurse Practitioner Family; PCP Family Medicine; Visit Provider Internal Medicine Cardiovascular Disease
DX: N18.32 Chronic kidney disease, stage 3b (principal)
CPT/HCPCS: 36415; 80048

== ENCOUNTER → 2022-07-07 | Outpatient (CLI) | payer MEDICARE, BC, SELFPAY ==
[2022-07-07 11:02] LABS: Anion Gap 10 (5-15); BUN 51 mg/dL (7-18); BUN/Creat Ratio 22.4 RATIO (10-20); Calcium,Total 8.9 mg/dL (8.5-10.1); Chloride 107 mmol/L (98-107); Creatinine, Serum 2.28 mg/dL (0.70-1.30); EST Glomerular Filtration Rate 30 mL/min (>60); Est Glom Filt Rate - Afr Amer 36 mL/min (>60); Glucose 116 mg/dL (74-106); Potassium 3.7 mmol/L (3.5-5.1); Sodium Level 140 mmol/L (136-145)
[2022-07-07 14:42] LABS: Protein, Urine (Random) 26.8 mg/dL (<11.9); Protein:Creat Ratio 323 mg/g CRE (0-200)
== END | disposition home or self-care (01) ==
PROVIDERS: PCP Family Medicine; Referring Provider Nurse Practitioner Family; Visit Provider Nurse Practitioner Family
DX: N18.32 Chronic kidney disease, stage 3b (principal)
CPT/HCPCS: 36415; 80048; 82570; 84156

== ENCOUNTER 2022-07-23 09:15 | Outpatient (CLI) | payer MEDICARE, BC, SELFPAY ==
[2022-07-23 10:11] LABS: Hematocrit 32.8 % (40-54); Hemoglobin 10.4 g/dL (13.0-16.5); Mean Corp Hgb Conc 31.7 g/dL (32-36); Mean Corpuscular Hgb 29.8 pg (27.0-32.0); Mean Platelet Vol. 11.8 fl (6.2-12.0); Platelet Count 205 K/mm3 (150-450); RBC Distribution Width CV 14.6 % (11.6-14.6); RBC Distribution Width SD 49.9 fl (35.1-43.9); Red Blood Count 3.49 M/mm3 (4.6-6.2); White Blood Count 8.9 K/mm3 (4.4-11.0)
[2022-07-23 13:35] LABS: Anion Gap 10 (5-15); BUN 43 mg/dL (7-18); BUN/Creat Ratio 22.3 RATIO (10-20); Calcium,Total 9.3 mg/dL (8.5-10.1); Chloride 107 mmol/L (98-107); Creatinine, Serum 1.93 mg/dL (0.70-1.30); EST Glomerular Filtration Rate 36 mL/min (>60); Est Glom Filt Rate - Afr Amer 43 mL/min (>60); Glucose 110 mg/dL (74-106); Potassium 4.3 mmol/L (3.5-5.1); Sodium Level 138 mmol/L (136-145)
[2022-07-23 13:36] LABS: Protein, Urine (Random) 29.3 mg/dL (<11.9); Protein:Creat Ratio 320 mg/g CRE (0-200)
== END 2022-07-23 23:59 | disposition home or self-care (01) ==
PROVIDERS: PCP Family Medicine; Referring Provider Internal Medicine Nephrology; Visit Provider Family Medicine
DX: D64.9 Anemia, unspecified (principal); N18.32 Chronic kidney disease, stage 3b
CPT/HCPCS: 36415; 80048; 82570; 84156; 85027

== ENCOUNTER 2022-08-01 14:00 | Outpatient (CLI) | payer MEDICARE, BC, SELFPAY ==
[2022-08-01 16:31] LABS: Vitamin B12 1605 pg/mL (211-911)
[2022-08-01 16:40] LABS: Iron 78 ug/dL (65-175); Iron Binding Capacity,Total 316 ug/dL (250-450)
== END 2022-08-01 23:59 | disposition home or self-care (01) ==
LOC: LAB 14:02
PROVIDERS: PCP Family Medicine; Referring Provider Internal Medicine Nephrology; Visit Provider Internal Medicine Nephrology
DX: D64.9 Anemia, unspecified (principal)
CPT/HCPCS: 36415; 82607; 82746; 83540; 83550

== ENCOUNTER → 2022-09-02 | Outpatient (CLI) | payer MEDICARE, BC, SELFPAY ==
--- NOTE | 2022-09-02 13:33 | RAD_ITS ---
STUDY: XR Knee Complete 4 Views or More 09/02/2022 4:51 PM REASON FOR EXAM: Male, 77 years old. PAIN TECHNIQUE: XR Knee Complete 4 Views or More RIGHT COMPARISON: None FINDINGS: Normal visualized distal femur. Normal visualized proximal tibia and fibula. Normal proximal tibiofibular articulation. There are atherosclerotic vascular calcifications. There is mild degenerative arthrosis of the medial femorotibial compartment. Normal lateral femorotibial compartment. There is mild degenerative arthrosis of the patellofemoral articulation. The soft tissue structures are unremarkable. RAD/Knee 4 or More Views IMPRESSION: Degenerative arthrosis. Electronically Signed: Reji Jackson MD at 16:53 EST ,
== END | disposition home or self-care (01) ==
PROVIDERS: PCP Family Medicine; Referring Provider Family Medicine; Visit Provider Family Medicine
DX: M17.10 Unilateral primary osteoarthritis, unspecified knee (principal); M25.561 Pain in right knee
CPT/HCPCS: 73564

== ENCOUNTER → 2022-10-10 | Outpatient (CLI) | payer MEDICARE, BC, SELFPAY ==
--- NOTE | 2022-10-10 10:11 | RAD_ITS ---
STUDY: X-RAY - PELVIS REASON FOR EXAM: Male, 77 years old. PAIN TECHNIQUE: One view of the pelvis was obtained. COMPARISON: None. FINDINGS: There is a non-specific bowel gas pattern. Surgical clips are seen in the pelvis. Normal bilateral iliac wings, sacroiliac joints and visualized sacrum. Normal visualized bilateral superior and inferior pubic rami. Normal pubic symphysis. Normal ischial tuberosities. Normal visualized right femoral head. Normal right acetabulum. There is mild articular joint space narrowing of the right hip. Normal visualized left femoral head. Normal left acetabulum. There is moderate articular joint space narrowing of the left hip. 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 Electronically Signed: Joel Fuentes MD at 10:56 EST ,
--- NOTE | 2022-10-10 10:11 | RAD_ITS ---
STUDY: X-RAY - RIGHT HAND REASON FOR EXAM: Male, 77 years old. History of inflammatory polyarthropathy. Pain. TECHNIQUE: view(s) of the hand. COMPARISON: None. FINDINGS: Normal radiocarpal articulation. Normal distal radioulnar joint. Normal visualized carpal bones. Normal carpal articulations Normal carpometacarpal articulation of the thumb. Normal second through fifth carpometacarpal joints. Normal metacarpi. Normal metacarpophalangeal joint of the thumb. Normal interphalangeal joint of the thumb. Normal proximal and distal phalanges of the thumb. Normal metacarpophalangeal joints of the second through fifth fingers. There is diffuse articular joint space narrowing of the proximal and distal interphalangeal joints of the second through fifth fingers. There is evidence of erosive changes and marked degree of joint space narrowing of the proximal interphalangeal joint of the third digit with the focal soft tissue swelling. Diffuse soft tissue swelling. Vascular calcification. RAD/Hand Min 3 Views IMPRESSION: Degenerative joint disease of the hand and wrist, as described above. Marked degree of joint space narrowing of the proximal interphalangeal joint of the second and third digit with evidence of erosive changes at the base of the middle phalanx of the third digit with localized soft tissue swelling. Diffuse soft tissue swelling and vascular calcification. Electronically Signed: Joel Fuentes MD at 10:55 EST ,
--- NOTE | 2022-10-10 10:11 | RAD_ITS ---
STUDY: X-RAY - LEFT HAND REASON FOR EXAM: Male, 77 years old. Inflammatory polyarthropathy. Pain. TECHNIQUE: 3 view(s) of the hand. COMPARISON: None. FINDINGS: Normal radiocarpal articulation. Normal distal radioulnar joint. Normal visualized carpal bones. Normal carpal articulations There is degenerative arthrosis of the carpometacarpal (CMC) articulation of the thumb. Normal second through fifth carpometacarpal joints. Normal metacarpi. Normal metacarpophalangeal joint of the thumb. Normal interphalangeal joint of the thumb. Normal proximal and distal phalanges of the thumb. Normal metacarpophalangeal joints of the second through fifth fingers. There is diffuse articular joint space narrowing of the proximal and distal interphalangeal joints of the second through fifth fingers, but without erosive changes or periarticular soft tissue swelling. Normal phalanges of the second through fifth fingers. Soft tissue swelling and vascular calcification. RAD/Hand Min 3 Views IMPRESSION: Degenerative joint disease of the hand and wrist, as described above. Electronically Signed: Joel Fuentes MD at 10:55 EST ,
[2022-10-10 12:51] LABS: Absolute Lymphocyte Count 1.49 X10^3/uL (0.83-4.51); Absolute Neutrophil Count 6.2 X10^3/uL (2.0-7.7); Basophil# 0.06 X10^3/uL; Basophil% 0.7 % (0-1); Eosinophils% 2.2 % (0-5); Hematocrit 38.1 % (40-54); Hemoglobin 12.1 g/dL (13.0-16.5); Lymphocyte # 1.49 X10^3/ul (0.83-4.51); Lymphocyte % 16.6 % (19-41); Mean Corp Hgb Conc 31.8 g/dL (32-36); Mean Corpuscular Hgb 28.7 pg (27.0-32.0); Mean Corpuscular Volume 90.3 fL (80-94); Mean Platelet Vol. 11.9 fl (6.2-12.0); Monocyte# 0.97 X10^3/uL; Monocyte% 10.8 % (0-10); NRBC Flagged by Analyzer 0 % (0-5); Neutrophil # 6.21 X10^3/uL (2.7-7.7); Neutrophil % 69.3 % (47-70); Platelet Count 254 K/mm3 (150-450); RBC Distribution Width CV 13.9 % (11.6-14.6); RBC Distribution Width SD 45.8 fl (35.1-43.9); Red Blood Count 4.22 M/mm3 (4.6-6.2)
[2022-10-10 13:04] LABS: ALB/GLOB Ratio 0.7 RATIO (0.9-2.4); AST(SGOT) 14 U/L (15-37); Alanine Aminotransfer ALT/SGPT 24 U/L (16-61); Albumin, Serum 3.4 g/dL (3.2-5.0); Alkaline Phosphatase 69 U/L (45-117); Anion Gap 8 (5-15); BUN 63 mg/dL (7-18); BUN/Creat Ratio 30.4 RATIO (10-20); CRP 3.48 mg/L (0.0-3.0); Calcium,Total 9.3 mg/dL (8.5-10.1); Chloride 107 mmol/L (98-107); Creatinine, Serum 2.07 mg/dL (0.70-1.30); EST Glomerular Filtration Rate 33 mL/min (>60); Est Glom Filt Rate - Afr Amer 40 mL/min (>60); Globulin 4.7 g/dL (2.2-4.2); Glucose 118 mg/dL (74-106); Potassium 4.3 mmol/L (3.5-5.1); Protein, Total 8.1 g/dL (6.4-8.2); Sodium Level 138 mmol/L (136-145)
[2022-10-10 14:30] LABS: Hepatitis B Surface Antibody Non-Reactive; Hepatitis B Surface Antigen Non-Reactive (Nonreactive); Hepatitis C Antibody Non-Reactive (Nonreactive)
[2022-10-11 01:36] LABS: Erythrocyte Sedimentation Rate 59 mm/hr (0-20)
[2022-10-11 12:32] LABS: CCP IgG Antibodies 3 units (0-19)
[2022-10-13 23:16] LABS: ANTINUCLEAR ANTIBODIES DIRECT Positive (Negative)
== END | disposition home or self-care (01) ==
LOC: MTLAB 10:09
PROVIDERS: PCP Family Medicine; Referring Provider Internal Medicine Rheumatology; Visit Provider Internal Medicine Rheumatology
DX: M06.4 Inflammatory polyarthropathy (principal); I50.9 Heart failure, unspecified; I27.20 Pulmonary hypertension, unspecified; E11.22 Type 2 diabetes mellitus with diabetic chronic kidney disease; I48.91 Unspecified atrial fibrillation; N18.9 Chronic kidney disease, unspecified; Z86.79 Personal history of other diseases of the circulatory system; I44.7 Left bundle-branch block, unspecified; I25.10 Atherosclerotic heart disease of native coronary artery without angina pectoris; G47.33 Obstructive sleep apnea (adult) (pediatric); N40.0 Benign prostatic hyperplasia without lower urinary tract symptoms; I12.9 Hypertensive chronic kidney disease with stage 1 through stage 4 chronic kidney disease, or unspecified chronic kidney disease
CPT/HCPCS: 36415; 72170; 73130; 80053; 85025; 85652; 86038; 86140; 86200; 86431; 86706; 86803; 87340

== ENCOUNTER → 2022-10-28 | Outpatient (CLI) | payer MEDICARE, BC, SELFPAY ==
[2022-10-28 12:53] LABS: EXAGEN MAILED SPECIMEN
[2022-10-28 16:27] LABS: Uric Acid 12.8 mg/dL (3.5-7.2)
[2022-10-28 17:53] LABS: Color, Urine Yellow (Yellow); Glucose, Dipstick Normal (Normal); Ketone-Dipstick Negative (Negative); Leukocyte Esterase-Dipstick Negative /ul (Negative); Nitrite-Dipstick Negative (Negative); Occult Blood-Urine Negative /ul (Negative); Protein-Dipstick 15 mg/dl (Negative); Specific Gravity, Urine 1.015 (1.002-1.030); Urine Bilirubin Dipstick Negative (Negative); Urine Clarity Clear (Clear); Urine Urobilinogen Normal (Normal)
[2022-10-28 18:10] LABS: Protein, Urine (Random) 9.4 mg/dL (<11.9); Protein:Creat Ratio 166 mg/g CRE (0-200)
== END | disposition home or self-care (01) ==
LOC: MTLAB 11:49
PROVIDERS: PCP Family Medicine; Referring Provider Internal Medicine Rheumatology; Visit Provider Internal Medicine Rheumatology
DX: M05.79 Rheumatoid arthritis with rheumatoid factor of multiple sites without organ or systems involvement (principal); R76.8 Other specified abnormal immunological findings in serum
CPT/HCPCS: 36415; 81002; 82570; 84156; 84550

== ENCOUNTER 2022-12-05 12:07 | Emergency (ER) | payer MEDICARE, BC, SELFPAY ==
[2022-12-05 12:07] VITALS: BP 122/75; PULSE 67; RESP 18; TEMP 36.1; O2SAT 97; BMI 30.4
--- NOTE | 2022-12-05 12:44 | CT_ITS ---
STUDY: CT BRAIN WITHOUT CONTRAST REASON FOR EXAM: Male, 77 years old. Fall, head injury RADIATION DOSAGE (If Supplied By Facility): CTDIvol = ( 47.06 ) mGy, DLP = ( 907.97 ) mGycm TECHNIQUE: Transaxial CT imaging of the brain was performed without administration of intravenous contrast material. Individualized dose optimization techniques were used for this CT. COMPARISON: No relevant priors. FINDINGS: Normal soft tissue structures. Normal calvarium. There is mild cerebral atrophy with widening of the extra-axial spaces and ventricular dilatation. Normal white matter tracts of the cerebral hemispheres. Normal basal ganglia and thalami. Normal brainstem. Normal cerebellum. There is no intracranial hemorrhage. There are no findings of an acute ischemic infarction. Atherosclerotic plaque formation of the cavernous portions of the internal carotid arteries bilaterally. Opacification of the left sphenoid sinus. CT/Brain/Head without Contrast IMPRESSION: Chronic involutional changes of the brain. Opacification of the left sphenoid sinus. Electronically Signed: Joel Fuentes MD at 13:46 EDT ,
--- NOTE | 2022-12-05 12:45 | EX.ED.GENINJ ---
HPI History of Present Illness Chief Complaint: Fall Detail of Chief Complaint: Fall with injury to head and right knee and right foot Informant: patient Narrative Narrative: Patient presents to the emergency department with complaint of a fall that occurred yesterday. Patient states that he fell and hit his head on the wall and injured his right knee and foot. No loss of consciousness. He denies neck pain. He denies severe headache or vomiting. He is using a walker now and having a hard time bearing much weight on his right knee secondary to pain. Patient complains of pain to the right great toe. He denies any other injuries. [facility] Medical History (Reviewed 09/18/22 @ 10:42 by Lonny Addison CUSTOMER ACCOUNT REPRESENTATIVE, CUSTOMER ACCOUNT REPRESENTATIVE-C) Abnormal ankle brachial index (LOKI) Anemia due to stage 3b chronic kidney disease Back pain Back pain BPH (benign prostatic hyperplasia) Cardiology follow-up encounter CHF NYHA class III Chronic combined systolic and diastolic CHF (congestive heart failure) Chronic kidney disease, stage 3b Claudication Constipation CPAP (continuous positive airway pressure) dependence Diabetes Dietary restriction Elevated troponin (01/2021) Essential (primary) hypertension Gout Heartburn History of echocardiogram History of edema History of irregular heartbeat History of non-ST elevation myocardial infarction (NSTEMI) (07/25/21) History of pain when walking History of steroid therapy History of tobacco use HLD (hyperlipidemia) Hypertension Hypertrophic cardiomyopathy Hypokalemia Joint pain Lactic acidosis Left bundle branch block Leg cramps Leukocytosis Longstanding persistent atrial fibrillation Night sweats 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 Obesity (BMI 30.0-34.9) KIMBERLY (obstructive sleep apnea) Poor appetite Presence of implantable pulmonary artery pressure and heart rate monitoring system (03/25/21) Renal infarct Restless legs Secondary pulmonary arterial hypertension Shortness of breath on exertion Wears glasses Home Medications finasteride 5 mg tablet 5 mg PO DAILY prostate 12/19/20 [History Last Taken 12/22/20] glimepiride 1 mg tablet 1 mg PO DAILY diabetes 02/13/21 [History Last Taken Unknown] warfarin 2.5 mg tablet 2.5 mg PO DAILY blood thinner 03/11/21 [History Last Taken 05/31/22] carvedilol 6.25 mg tablet 6.25 mg PO BID #60 tabs 04/22/22 [Rx Last Taken 06/04/22] cyanocobalamin (vitamin B-12) 1,000 mcg tablet (Vitamin B-12) 1,000 mcg PO DAILY 06/26/22 [History Last Taken Unknown] cholecalciferol (vitamin D3) 25 mcg (1,000 unit) capsule 25 mcg PO DAILY 08/01/22 [History Last Taken Unknown] metolazone 2.5 mg tablet 2.5 mg PO .PRN 08/01/22 [History Last Taken Unknown] lisinopril 10 mg tablet 20 mg PO DAILY 09/18/22 [History Last Taken Unknown] furosemide 40 mg tablet (Lasix) 40 mg PO .COMPLEX #30 tabs 10/14/22 [Rx Last Taken Unknown] Allergy/AdvReac Type Severity Reaction Status Date / Time rivaroxaban [From Xarelto] Allergy Bleeding Verified 12/05/22 12:09 metoprolol AdvReac bradycardia Verified 12/05/22 12:09 Family History (Reviewed 09/18/22 @ 10:42 by Lonny Addison CUSTOMER ACCOUNT REPRESENTATIVE, CUSTOMER ACCOUNT REPRESENTATIVE-C) Father Heart disease Sister Heart disease Brother Heart disease Other Arthritis CVA (cerebral vascular accident) Depression Mental disorder Surgical History (Reviewed 09/18/22 @ 10:42 by Lonny Addison CUSTOMER ACCOUNT REPRESENTATIVE, CUSTOMER ACCOUNT REPRESENTATIVE-C) History of appendectomy History of cataract extraction History of left heart catheterization (02/19/21) History of transurethral resection of prostate (01/2019) History of ventricular septal myectomy (2000) Hx of umbilical hernia repair Social History (Reviewed 09/18/22 @ 10:42 by Lonny Addison CUSTOMER ACCOUNT REPRESENTATIVE, CUSTOMER ACCOUNT REPRESENTATIVE-C) Smoking Status: Former smoker how long ago did patient quit smokin years ago 0.25ppd second hand exposure: Yes alcohol intake: never caffeine: Yes Type: coffee Number of servings: 1 what type of physical activity do you participate in: other details: treadmill frequency: daily ROS ROS ED Review of Systems ROS Unobtainable: other Constitutional Constitutional ED: Reports lethargy; Denies chills, fever(s), sweats or weight loss Eyes Eyes: Denies blurry vision, change in vision or diplopia ENT ENT ED: Denies rhinorrhea or sore throat Cardiovascular Cardiovascular: Denies chest pain, orthopnea or racing heartbeat Respiratory/Chest Respiratory/Chest: Denies cough, dyspnea, dyspnea on exertion, orthopnea or sputum Gastrointestinal Gastrointestinal: Denies abdominal pain, diarrhea, nausea or vomiting Genitourinary Genitourinary ED: Denies dysuria, hematuria or urinary frequency Musculoskeletal Musculoskeletal: Reports other Details: Right knee pain, right foot pain ; Denies arthralgias, back pain, myalgias or neck pain Integumentary Denies abscess, Abrasions or rash Neurologic Neurologic: Denies headache(s) or weakness Psychiatric Psychiatric: Denies anxiety, depression or suicidal thoughts Endocrine Endocrinology: Denies polydipsia, polyphagia or polyuria Hematologic/Lymphatic Hematologic/Lymphatic: Denies easy bleeding, easy bruising or lymphadenopathy Allergic/Immunologic Allergic/Immunologic ED: Denies mouth swelling, tongue swelling or urticaria EXAM Physical Exam Const Vital Signs: 12/05/22 12:07 Temperature 97 F L Temperature Source Temporal Pulse Rate 67 Respiratory Rate 18 Blood Pressure 122/75 H Blood Pressure Mean 90 Pulse Ox 97 Oxygen Delivery Method Room Air Positive well nourished and well developed General Appearance ED: well developed and NAD HEENT Reports TM's clear and moist mucous membranes normocephalic and atraumatic; Negative for trauma or tenderness Tympanic Membrane ED: Yes TM's clear Eyes PERRL and EOMs intact bilaterally General Eye ED: Negative for pale conjunctiva or scleral icterus Neck no lymphadenopathy, supple and no JVD General: Negative for tenderness Chest Wall inspection of chest normal and palpation of chest normal Chest: Negative for tenderness Resp normal respiratory effort and clear to auscultation bilaterally Effort and Inspection: Negative for respiratory distress or pain with movement Auscultation: Negative for rhonchi, wheezes or diminished lung sounds Cardio regular rate, regular rhythm, S1 normal heart sound, S2 normal heart sound and no murmurs Peripheral Pulses: pulses 2+ throughout GI normal to inspection, nondistended, normoactive bowel sounds, soft to palpation, non-tender, non-distended and no masses Back/Spine no CVA tenderness and no thoracic nor lumbar tenderness Extremity Extremity Narrative: Right knee-no obvious effusion. No significant soft tissue swelling or ecchymosis or bruising noted. He does have tenderness over the medial joint line. Ligamentously stable. Neurovascular intact distally. Evaluation of the right foot reveals tenderness palpation over the great toe diffusely and first MTP joint. No obvious deformity. No ecchymosis or bruising. Neurovascular intact. General Extremety ED: Negative for edema General Extremity: Negative for edema Neuro oriented x3, CN's II-XII intact bilaterally, no sensory deficits noted and gait normal Sensorium / Orientation: awake, alert, oriented to person, oriented to place and oriented to time Motor Exam: strength 5/5 throughout and strength abnormal Psych mental status grossly normal Skin no rashes or lesions noted and no wounds MDM MDM MDM Narrative Medical decision making narrative: Patient with a fall yesterday. Presents with right knee pain right foot pain. CT scan of the brain without contrast obtained given the head injury and fact the patient is on Coumadin. CT scan of the brain was unremarkable. Patient had x-rays of the right knee that showed arthrosis with moderate effusion otherwise no fractures. Patient also had x-rays of the right foot that were read as no fractures. Patient does not want a thing for pain. He has a neoprene sleeve for his right knee. He has a rolling walker that he can use and is able to ambulate with. Patient suspect likely has a hemarthrosis given the fact that he is on Coumadin. INR was 3.3. Patient will be referred to orthopedics for follow-up if pain persists. Lab Data Labs: Laboratory Results - last 24 hr 12/05/22 14:07 PT 32.9 H INR 3.3 Radiography Diagnostic Testing: Clinical Impression(s) from Imaging Studies Brain CT 12/05/22 12:44 IMPRESSION: Chronic involutional changes of the brain. Opacification of the left sphenoid sinus. Electronically Signed: Joel Fuentes MD at 13:46 EDT , Foot X-Ray 12/05/22 13:30 IMPRESSION: Normal x-ray examination of the foot. Electronically Signed: Joel Fuentes MD at 13:49 EDT , Knee X-Ray 12/05/22 13:30 IMPRESSION: Degenerative arthrosis. Moderate joint effusion. No definite fracture is seen at this time. Electronically Signed: Joel Fuentes MD at 13:50 EDT , Discharge Plan Triage Chief Complaint: Fall ED Provider: Giacomo Penaloza Dx/Rx/DC Orders Clinical Impression: Fall, Head injury, Contusion of knee, Knee effusion, Foot sprain Instructions: ED Contusion, Lower Extremity, ED Foot Sprain, ED Head Injury (Adult) Prescriptions: No Action finasteride 5 mg tablet 5 mg PO DAILY Label Comments: TAKE 1 TABLET BY MOUTH ONCE DAILY glimepiride 1 mg tablet 1 mg PO DAILY cyanocobalamin (vitamin B-12) [Vitamin B-12] 1,000 mcg tablet 1,000 mcg PO DAILY lisinopril 10 mg tablet 20 mg PO DAILY cholecalciferol (vitamin D3) 25 mcg (1,000 unit) capsule 25 mcg PO DAILY metolazone 2.5 mg tablet 2.5 mg PO .PRN warfarin 2.5 mg tablet 2.5 mg PO DAILY Rx Instructions: Managed by PCP carvedilol 6.25 mg tablet 6.25 mg PO BID Qty: 60 11RF Rx Instructions: must administer with a meal/food furosemide [Lasix] 40 mg tablet 40 mg PO .COMPLEX Qty: 30 11RF Rx Instructions: 40 mg orally; 40mg in AM and 20mg in afternoon Primary Care Provider: Howard Escobar Referrals: Howard Escobar DO [Primary Care Provider] - Ellis uCevas DO [Med Staff - Active Staff] - 5-7 Days Disposition Disposition: Home, Self Care
--- NOTE | 2022-12-05 13:30 | RAD_ITS ---
STUDY: X-RAY - RIGHT KNEE REASON FOR EXAM: Male, 77 years old. Pain following a fall. TECHNIQUE: 4 view(s) of the knee. COMPARISON: None. FINDINGS: Normal visualized distal femur. Normal visualized proximal tibia and fibula. Normal proximal tibiofibular articulation. There is mild degenerative arthrosis of the medial femorotibial compartment. Normal lateral femorotibial compartment. There is moderate degenerative arthrosis of the patellofemoral articulation. Chondrocalcinosis of the medial and lateral menisci. Moderate-sized joint effusion. Atherosclerotic calcification. RAD/Knee 4 or More Views IMPRESSION: Degenerative arthrosis. Moderate joint effusion. No definite fracture is seen at this time. Electronically Signed: Joel Fuentes MD at 13:50 EDT ,
--- NOTE | 2022-12-05 13:30 | RAD_ITS ---
STUDY: X-RAY - RIGHT FOOT CLINICAL: Male, 77 years old. Pain following a fall. TECHNIQUE: 3 view(s) of the foot. COMPARISON: None. FINDINGS: Calcaneal spurs. Normal visualized subtalar, talonavicular, calcaneocuboid, tarsal and tarsometatarsal articulations. There is demineralization of the metatarsi. Normal metatarsophalangeal joint of the great toe. Normal tibial and fibular sesamoid bones. Normal interphalangeal joint of the great toe. Normal phalanges of the great toe. Normal second through fifth metatarsophalangeal joints. Normal interphalangeal joints and phalanges of the lesser toes. There is non-specific soft tissue swelling of the foot. Vascular calcification. RAD/Foot min 3 Views IMPRESSION: Normal x-ray examination of the foot. Electronically Signed: Joel Fuentes MD at 13:49 EDT ,
[2022-12-05 14:24] LABS: International Normalized Ratio 3.3; Prothrombin Time (Protime)PT. 32.9 SECONDS (11.7-14.9)
== END 2022-12-05 14:40 | disposition home or self-care (01) ==
PROVIDERS: Emergency Provider Emergency Medicine; PCP Family Medicine; Visit Provider Emergency Medicine
DX: S09.90XA Unspecified injury of head, initial encounter (principal); I13.0 Hypertensive heart and chronic kidney disease with heart failure and stage 1 through stage 4 chronic kidney disease, or unspecified chronic kidney disease; I50.42 Chronic combined systolic (congestive) and diastolic (congestive) heart failure; I42.2 Other hypertrophic cardiomyopathy; E11.22 Type 2 diabetes mellitus with diabetic chronic kidney disease; N18.32 Chronic kidney disease, stage 3b; S80.01XA Contusion of right knee, initial encounter; Z87.891 Personal history of nicotine dependence; I25.10 Atherosclerotic heart disease of native coronary artery without angina pectoris; E78.5 Hyperlipidemia, unspecified; M17.11 Unilateral primary osteoarthritis, right knee; M25.461 Effusion, right knee; S93.601A Unspecified sprain of right foot, initial encounter; W01.10XA Fall on same level from slipping, tripping and stumbling with subsequent striking against unspecified object, initial encounter; G47.33 Obstructive sleep apnea (adult) (pediatric); Z99.89 Dependence on other enabling machines and devices
CPT/HCPCS: 36415; 70450; 73564; 73630; 85610; 99282

== ENCOUNTER → 2023-02-02 | Outpatient (CLI) | payer MEDICARE, BC, SELFPAY ==
[2023-02-02 09:51] LABS: Absolute Lymphocyte Count 1.32 X10^3/uL (0.83-4.51); Absolute Neutrophil Count 5.6 X10^3/uL (2.0-7.7); Basophil# 0.05 X10^3/uL; Basophil% 0.6 % (0-1); Eosinophil# 0.11 X10^3/uL; Eosinophils% 1.4 % (0-5); Hematocrit 39.1 % (40-54); Hemoglobin 12.7 g/dL (13.0-16.5); Lymphocyte # 1.32 X10^3/ul (0.83-4.51); Lymphocyte % 16.2 % (19-41); Mean Corp Hgb Conc 32.5 g/dL (32-36); Mean Corpuscular Hgb 30.2 pg (27.0-32.0); Mean Corpuscular Volume 93.1 fL (80-94); Mean Platelet Vol. 12.5 fl (6.2-12.0); Monocyte# 1.05 X10^3/uL; Monocyte% 12.9 % (0-10); NRBC Flagged by Analyzer 0 % (0-5); Neutrophil # 5.55 X10^3/uL (2.7-7.7); Neutrophil % 68.3 % (47-70); Platelet Count 173 K/mm3 (150-450); RBC Distribution Width CV 15.2 % (11.6-14.6); RBC Distribution Width SD 51.8 fl (35.1-43.9); White Blood Count 8.1 K/mm3 (4.4-11.0)
[2023-02-02 10:25] LABS: ALB/GLOB Ratio 0.9 RATIO (0.9-2.4); AST(SGOT) 26 U/L (15-37); Alanine Aminotransfer ALT/SGPT 42 U/L (16-61); Albumin, Serum 3.5 g/dL (3.2-5.0); Alkaline Phosphatase 89 U/L (45-117); Anion Gap 7 (5-15); BUN 76 mg/dL (7-18); BUN/Creat Ratio 33.8 RATIO (10-20); Calcium,Total 9.3 mg/dL (8.5-10.1); Chloride 110 mmol/L (98-107); Creatinine, Serum 2.25 mg/dL (0.70-1.30); EST Glomerular Filtration Rate 30 mL/min (>60); Est Glom Filt Rate - Afr Amer 36 mL/min (>60); Globulin 3.8 g/dL (2.2-4.2); Glucose 148 mg/dL (74-106); Protein, Total 7.3 g/dL (6.4-8.2); Sodium Level 140 mmol/L (136-145)
== END | disposition home or self-care (01) ==
LOC: LAB 09:16
PROVIDERS: PCP Family Medicine; Referring Provider Internal Medicine Rheumatology; Visit Provider Internal Medicine Rheumatology
DX: M05.79 Rheumatoid arthritis with rheumatoid factor of multiple sites without organ or systems involvement (principal); R76.8 Other specified abnormal immunological findings in serum
CPT/HCPCS: 36415; 80053; 85025

== ENCOUNTER → 2023-03-04 | Outpatient (CLI) | payer MEDICARE, BC, SELFPAY ==
[2023-03-04 17:16] LABS: Absolute Lymphocyte Count 1.16 X10^3/uL (0.83-4.51); Absolute Neutrophil Count 5.5 X10^3/uL (2.0-7.7); Basophil# 0.08 X10^3/uL; Eosinophil# 0.11 X10^3/uL; Eosinophils% 1.3 % (0-5); Hematocrit 38.4 % (40-54); Hemoglobin 12.2 g/dL (13.0-16.5); Lymphocyte # 1.16 X10^3/ul (0.83-4.51); Lymphocyte % 14.1 % (19-41); Mean Corp Hgb Conc 31.8 g/dL (32-36); Mean Corpuscular Volume 94.3 fL (80-94); Monocyte% 15.8 % (0-10); NRBC Flagged by Analyzer 0 % (0-5); Neutrophil % 66.8 % (47-70); Platelet Count 176 K/mm3 (150-450); RBC Distribution Width CV 14.6 % (11.6-14.6); RBC Distribution Width SD 50.2 fl (35.1-43.9); Red Blood Count 4.07 M/mm3 (4.6-6.2); White Blood Count 8.2 K/mm3 (4.4-11.0)
[2023-03-04 18:13] LABS: ALB/GLOB Ratio 0.9 RATIO (0.9-2.4); AST(SGOT) 19 U/L (15-37); Alanine Aminotransfer ALT/SGPT 53 U/L (16-61); Albumin, Serum 3.4 g/dL (3.2-5.0); Alkaline Phosphatase 107 U/L (45-117); Anion Gap 8 (5-15); BUN 84 mg/dL (7-18); BUN/Creat Ratio 34.1 RATIO (10-20); Calcium,Total 8.9 mg/dL (8.5-10.1); Chloride 112 mmol/L (98-107); Creatinine, Serum 2.46 mg/dL (0.70-1.30); EST Glomerular Filtration Rate 27 mL/min (>60); Est Glom Filt Rate - Afr Amer 33 mL/min (>60); Globulin 3.8 g/dL (2.2-4.2); Glucose 102 mg/dL (74-106); Potassium 4.4 mmol/L (3.5-5.1); Protein, Total 7.2 g/dL (6.4-8.2); Sodium Level 138 mmol/L (136-145); Uric Acid 9.4 mg/dL (3.5-7.2)
== END | disposition home or self-care (01) ==
LOC: LAB 16:52
PROVIDERS: PCP Family Medicine; Referring Provider Internal Medicine Rheumatology; Visit Provider Internal Medicine Rheumatology
DX: M05.79 Rheumatoid arthritis with rheumatoid factor of multiple sites without organ or systems involvement (principal); R76.8 Other specified abnormal immunological findings in serum; Z79.899 Other long term (current) drug therapy
CPT/HCPCS: 36415; 80053; 84550; 85025

== ENCOUNTER → 2023-03-05 | Outpatient (CLI) | payer MEDICARE, BC, SELFPAY ==
--- NOTE | 2023-03-05 08:58 | ECHOCS_ITS ---
Reason For Study: OTHER SPECIFIED POSTPROCEDURAL STATES Procedure This was a 2D Doppler, Color Flow transthoracic echocardiogram. The study was technically difficult. Patient could not sit still. Exam performed in department. Left Ventricle Normal LV size. Left ventricular systolic function is normal. The estimated ejection fraction is 53 %. No regional wall motion abnormalities noted. Right Ventricle Normal RV size. Normal systolic function. Atria The left atrium is moderately enlarged. Mitral Valve Mild focal mitral valve thickening. Moderate (2+) eccentric mitral valve insufficiency. Tricuspid Valve Normal tricuspid valve. Aortic Valve Trisinus/trileaflet aortic valve. Mild focal aortic valve calcification. Pulmonic Valve The pulmonic valve is not well visualized. Great Vessels Normal aortic root. The pulmonary is not well visualized. Normal inferior vena cava. Pericardium/Pleural No pericardial effusion. Medication 22 gauge I.V. with prn adaptor inserted into right arm. Diluted definity 4ml given slow IV push to enhance endocardial definition. MMode/2D Measurements & Calculations LVIDd: 4.2 cm IVSd: 1.5 cm LVOT diam: 2.2 cm LVIDs: 3.3 cm LVPWd: 1.6 cm FS: 20.7 % LVOT area: 3.9 cm2 Ao root diam: 2.6 cm LAV(MOD-bp): 118.0 ml LVAd ap4: 36.0 cm2 LAV(MOD-bp) Indexed: 62.1 ml/m2 LVLd ap4: 8.4 cm LAV(MOD-sp2): 125.8 ml EDV(MOD-sp4): 130.0 ml LAV(MOD-sp4): 104.8 ml EDV(sp4-el): 131.2 ml LVAs ap4: 25.4 cm2 LVLs ap4: 6.8 cm ESV(MOD-sp4): 76.8 ml ESV(sp4-el): 80.3 ml EF(MOD-sp4): 40.9 % EF(sp4-el): 38.8 % SV(MOD-sp4): 53.3 ml SV(sp4-el): 51.0 ml LA A4 area: 30.5 cm2 LA dimension(2D): 5.2 cm RA A4 area: 21.3 cm2 Time Measurements MV dec time: 0.21 sec Doppler Measurements & Calculations MV E max babar: 93.1 cm/sec Lat Peak E' Babar: 11.4 cm/sec Med Peak E' Babar: 4.7 cm/sec MV A max babar: 34.5 cm/sec E/E' lat: 8.1 E/E' med: 19.7 MV E/A: 2.7 MV V2 max: 107.8 cm/sec MV dec slope: 446.9 cm/sec2 Ao V2 max: 193.0 cm/sec MV max P.7 mmHg Ao max P.9 mmHg MV V2 mean: 59.0 cm/sec Ao V2 mean: 117.6 cm/sec MV mean P.7 mmHg Ao mean P.6 mmHg MV V2 VTI: 29.2 cm Ao V2 VTI: 46.5 cm MVA(VTI): 4.2 cm2 AV (velocity ratio): 0.68 LUCHO(I,D): 2.6 cm2 LUCHO(V,D): 2.4 cm2 LV V1 max: 119.2 cm/sec MR max babar: 404.0 cm/sec SV(LVOT): 122.6 ml LV V1 max P.7 mmHg MR max P.3 mmHg LV V1 mean P.5 mmHg MR mean babar: 335.6 cm/sec LV V1 mean: 88.3 cm/sec MR mean P.0 mmHg LV V1 VTI: 31.6 cm MR VTI: 170.9 cm PA V2 max: 97.4 cm/sec TR max babar: 360.3 cm/sec PA V2 mean: 66.7 cm/sec TR max P.9 mmHg ECHO/Echo Complete W/ Contrast Interpretation Summary Normal LV size. Left ventricular systolic function is normal. The estimated ejection fraction is 53 %. Contrast injection was performed. The study was technically difficult. Ordering Physician: Lonny Addison Referring Physician: Lonny Addison Performed By: Sharyn Griffith RCS
== END | disposition home or self-care (01) ==
PROVIDERS: PCP Family Medicine; Referring Provider Nurse Practitioner Family; Visit Provider Nurse Practitioner Family
DX: Z98.890 Other specified postprocedural states (principal); I42.2 Other hypertrophic cardiomyopathy; I42.8 Other cardiomyopathies; I44.7 Left bundle-branch block, unspecified; I10 Essential (primary) hypertension
CPT/HCPCS: 93306; Q9957; A4216; C8929

== ENCOUNTER → 2023-05-01 | Outpatient (CLI) | payer MEDICARE, BC, SELFPAY ==
[2023-05-01 11:29] LABS: Absolute Lymphocyte Count 1.66 X10^3/uL (0.83-4.51); Absolute Neutrophil Count 7.4 X10^3/uL (2.0-7.7); Basophil# 0.04 X10^3/uL; Basophil% 0.4 % (0-1); Eosinophil# 0.07 X10^3/uL; Eosinophils% 0.7 % (0-5); Hematocrit 37.7 % (40-54); Hemoglobin 12.1 g/dL (13.0-16.5); Lymphocyte # 1.66 X10^3/ul (0.83-4.51); Lymphocyte % 16.1 % (19-41); Mean Corp Hgb Conc 32.1 g/dL (32-36); Mean Corpuscular Hgb 30.7 pg (27.0-32.0); Mean Corpuscular Volume 95.7 fL (80-94); Mean Platelet Vol. 13.3 fl (6.2-12.0); Monocyte# 1.05 X10^3/uL; Monocyte% 10.2 % (0-10); NRBC Flagged by Analyzer 0 % (0-5); Neutrophil # 7.39 X10^3/uL (2.7-7.7); Neutrophil % 71.5 % (47-70); Platelet Count 159 K/mm3 (150-450); RBC Distribution Width CV 15.3 % (11.6-14.6); RBC Distribution Width SD 52.8 fl (35.1-43.9); Red Blood Count 3.94 M/mm3 (4.6-6.2); White Blood Count 10.3 K/mm3 (4.4-11.0)
[2023-05-01 11:46] LABS: International Normalized Ratio 2.5; Prothrombin Time (Protime)PT. 27.3 SECONDS (11.7-14.9)
[2023-05-01 11:58] LABS: ALB/GLOB Ratio 0.9 RATIO (0.9-2.4); AST(SGOT) 29 U/L (15-37); Alanine Aminotransfer ALT/SGPT 65 U/L (16-61); Albumin, Serum 3.4 g/dL (3.2-5.0); Alkaline Phosphatase 94 U/L (45-117); Anion Gap 10 (5-15); BUN 83 mg/dL (7-18); BUN/Creat Ratio 35.2 RATIO (10-20); Calcium,Total 8.6 mg/dL (8.5-10.1); Chloride 105 mmol/L (98-107); Creatinine, Serum 2.36 mg/dL (0.70-1.30); EST Glomerular Filtration Rate 28 mL/min (>60); Est Glom Filt Rate - Afr Amer 34 mL/min (>60); Globulin 3.8 g/dL (2.2-4.2); Glucose 182 mg/dL (74-106); Potassium 3.8 mmol/L (3.5-5.1); Protein, Total 7.2 g/dL (6.4-8.2); Sodium Level 138 mmol/L (136-145); Uric Acid 8.3 mg/dL (3.5-7.2)
== END | disposition home or self-care (01) ==
PROVIDERS: PCP Family Medicine; Referring Provider Family Medicine; Visit Provider Family Medicine
DX: M05.79 Rheumatoid arthritis with rheumatoid factor of multiple sites without organ or systems involvement (principal); I48.0 Paroxysmal atrial fibrillation; Z79.899 Other long term (current) drug therapy
CPT/HCPCS: 36415; 80053; 84550; 85025; 85610

== ENCOUNTER → 2023-05-28 | Outpatient (CLI) | payer MEDICARE, BC, SELFPAY ==
[2023-05-28 09:49] LABS: International Normalized Ratio 4.3; Prothrombin Time (Protime)PT. 41.7 SECONDS (11.7-14.9)
== END | disposition home or self-care (01) ==
PROVIDERS: PCP Family Medicine; Visit Provider Family Medicine
DX: R19.7 Diarrhea, unspecified (principal); I48.0 Paroxysmal atrial fibrillation
CPT/HCPCS: 36415; 85610

== ENCOUNTER 2023-06-10 11:36 | Outpatient (RCR) | payer MEDICARE, BC, SELFPAY ==
[2023-06-05 14:33] LABS: Prothrombin Time (Protime)PT. 22.6 SECONDS (11.7-14.9)
[2023-06-05 15:21] LABS: Anion Gap 9 (5-15); BUN 97 mg/dL (7-18); BUN/Creat Ratio 37.2 RATIO (10-20); Calcium,Total 8.4 mg/dL (8.5-10.1); Chloride 111 mmol/L (98-107); Creatinine, Serum 2.61 mg/dL (0.70-1.30); EST Glomerular Filtration Rate 25 mL/min (>60); Est Glom Filt Rate - Afr Amer 31 mL/min (>60); Glucose 120 mg/dL (74-106); Potassium 3.7 mmol/L (3.5-5.1); Sodium Level 141 mmol/L (136-145)
[2023-06-10 12:17] LABS: International Normalized Ratio 2.1
[2023-06-10 14:35] LABS: Anion Gap 10 (5-15); BUN 102 mg/dL (7-18); BUN/Creat Ratio 38.6 RATIO (10-20); Calcium,Total 8.8 mg/dL (8.5-10.1); Chloride 105 mmol/L (98-107); Creatinine, Serum 2.64 mg/dL (0.70-1.30); EST Glomerular Filtration Rate 25 mL/min (>60); Est Glom Filt Rate - Afr Amer 30 mL/min (>60); Glucose 264 mg/dL (74-106); Potassium 4.2 mmol/L (3.5-5.1); Sodium Level 136 mmol/L (136-145)
== END 2023-06-10 18:00 | disposition home or self-care (01) ==
LOC: LAB 11:36
PROVIDERS: Nurse Practitioner Family; PCP Family Medicine; Referring Provider Family Medicine; Visit Provider Family Medicine
DX: I48.0 Paroxysmal atrial fibrillation (principal)
CPT/HCPCS: 36415; 80048; 85610

== ENCOUNTER → 2023-07-03 | Outpatient (CLI) | payer MEDICARE, BC, SELFPAY | END | disposition home or self-care (01) | LOC: LABSPEC 16:13 | PROVIDERS: PCP Family Medicine; Visit Provider Surgery | DX: R19.7 Diarrhea, unspecified (principal); K58.9 Irritable bowel syndrome, unspecified | CPT/HCPCS: 82274; 83630; 87177; 87209; 87493; 87506 ==

== ENCOUNTER 2023-07-06 10:56 | Outpatient (RCR) | payer MEDICARE, BC, SELFPAY ==
[2023-07-06 11:46] LABS: Absolute Lymphocyte Count 1.11 X10^3/uL (0.83-4.51); Absolute Neutrophil Count 7.3 X10^3/uL (2.0-7.7); Basophil# 0.09 X10^3/uL; Basophil% 0.9 % (0-1); Eosinophil# 0.17 X10^3/uL; Eosinophils% 1.7 % (0-5); Hematocrit 33.5 % (40-54); Hemoglobin 10.5 g/dL (13.0-16.5); Lymphocyte # 1.11 X10^3/ul (0.83-4.51); Lymphocyte % 11.1 % (19-41); Mean Corp Hgb Conc 31.3 g/dL (32-36); Mean Corpuscular Hgb 30.3 pg (27.0-32.0); Mean Corpuscular Volume 96.8 fL (80-94); Mean Platelet Vol. 11.6 fl (6.2-12.0); Monocyte# 1.13 X10^3/uL; Monocyte% 11.3 % (0-10); NRBC Flagged by Analyzer 0 % (0-5); Neutrophil % 72.7 % (47-70); Platelet Count 192 K/mm3 (150-450); RBC Distribution Width CV 14.7 % (11.6-14.6); RBC Distribution Width SD 51.9 fl (35.1-43.9); Red Blood Count 3.46 M/mm3 (4.6-6.2)
[2023-07-06 12:01] LABS: International Normalized Ratio 2.5; Prothrombin Time (Protime)PT. 26.8 SECONDS (11.7-14.9)
[2023-07-06 13:23] LABS: ALB/GLOB Ratio 0.8 RATIO (0.9-2.4); AST(SGOT) 23 U/L (15-37); Alanine Aminotransfer ALT/SGPT 54 U/L (16-61); Albumin, Serum 3.1 g/dL (3.2-5.0); Alkaline Phosphatase 99 U/L (45-117); Anion Gap 8 (5-15); BUN 87 mg/dL (7-18); BUN/Creat Ratio 34.4 RATIO (10-20); Calcium,Total 8.7 mg/dL (8.5-10.1); Chloride 110 mmol/L (98-107); Creatinine, Serum 2.53 mg/dL (0.70-1.30); EST Glomerular Filtration Rate 26 mL/min (>60); Est Glom Filt Rate - Afr Amer 32 mL/min (>60); Globulin 3.8 g/dL (2.2-4.2); Glucose 182 mg/dL (74-106); Iron 60 ug/dL (65-175); Iron Binding Capacity,Total 310 ug/dL (250-450); PERCENT IRON SATURATION 19.4 % (15.0-55.0); Potassium 3.9 mmol/L (3.5-5.1); Protein, Total 6.9 g/dL (6.4-8.2); Sodium Level 140 mmol/L (136-145); Uric Acid 10.8 mg/dL (3.5-7.2)
[2023-07-06 14:40] LABS: BNP,B-Type NATRIURETIC PEPTIDE 165.1 pg/mL (0-100)
[2023-07-06 14:45] LABS: Vitamin B12 > 2000 pg/mL (211-911)
[2023-07-07 08:07] LABS: Hemoglobin A1c 6.2 % (3.8-5.6)
== END 2023-07-30 18:00 | disposition home or self-care (01) ==
LOC: LAB 10:56
PROVIDERS: Nurse Practitioner Family; PCP Family Medicine; Referring Provider Family Medicine; Visit Provider Family Medicine
DX: I48.0 Paroxysmal atrial fibrillation (principal); E11.9 Type 2 diabetes mellitus without complications; M05.79 Rheumatoid arthritis with rheumatoid factor of multiple sites without organ or systems involvement; I50.42 Chronic combined systolic (congestive) and diastolic (congestive) heart failure; Z79.899 Other long term (current) drug therapy; M1A.9XX1 Chronic gout, unspecified, with tophus (tophi); R76.8 Other specified abnormal immunological findings in serum; D64.9 Anemia, unspecified; R06.02 Shortness of breath
CPT/HCPCS: 36415; 80053; 82607; 82746; 83036; 83540; 83550; 83880; 84550; 85025; 85610

== ENCOUNTER 2023-08-07 12:52 | Observation (INO) | payer MEDICARE, BC, SELFPAY ==
[2023-08-07 12:53] VITALS: BP 152/73; PULSE 64; RESP 20; TEMP 35.7; O2SAT 96
[2023-08-07 13:12] VITALS: BMI 33.0
[2023-08-07 13:15] VITALS: BP 139/78; PULSE 56; RESP 16; O2SAT 97
[2023-08-07 13:32] LABS: Absolute Lymphocyte Count 1.31 X10^3/uL (0.83-4.51); Absolute Neutrophil Count 7.7 X10^3/uL (2.0-7.7); Basophil# 0.06 X10^3/uL; Basophil% 0.6 % (0-1); Eosinophils% 1.9 % (0-5); Hematocrit 34.5 % (40-54); Hemoglobin 11.1 g/dL (13.0-16.5); Lymphocyte # 1.31 X10^3/ul (0.83-4.51); Lymphocyte % 12.5 % (19-41); Mean Corp Hgb Conc 32.2 g/dL (32-36); Mean Corpuscular Volume 96.4 fL (80-94); Mean Platelet Vol. 11.8 fl (6.2-12.0); Monocyte# 1.15 X10^3/uL; NRBC Flagged by Analyzer 0 % (0-5); Neutrophil # 7.69 X10^3/uL (2.7-7.7); Neutrophil % 73.1 % (47-70); Platelet Count 184 K/mm3 (150-450); RBC Distribution Width CV 14.4 % (11.6-14.6); RBC Distribution Width SD 50.7 fl (35.1-43.9); Red Blood Count 3.58 M/mm3 (4.6-6.2); White Blood Count 10.5 K/mm3 (4.4-11.0)
--- NOTE | 2023-08-07 13:35 | RAD_ITS ---
STUDY: X-RAY CHEST REASON FOR EXAM: Male, 78 years old. chf TECHNIQUE: Single AP portable view of the chest. COMPARISON: Comparison is made with prior study dated June 19, 2022. FINDINGS: EKG electrodes are seen. The lungs are clear and expanded. There is no demonstrated pleural abnormality. Sternal cerclage wires and vascular clips are present from a prior sternotomy and coronary artery bypass graft procedure (CABG). Moderate cardiomegaly. Normal mediastinum and gricelda. Normal visualized pulmonary arteries. Normal visualized aortic arch and descending thoracic aorta. There are degenerative changes of the visualized thoracic spine. Normal visualized ribs, clavicles, and shoulders. There is no demonstrated abnormality of the visualized soft tissue structures of the upper abdomen. RAD/Chest 1 View (Portable) IMPRESSION: Cardiomegaly. No acute abnormality is seen. Electronically Signed: Joel Fuentes MD at 14:12 EST ,
[2023-08-07 13:49] LABS: International Normalized Ratio 2.6; Prothrombin Time (Protime)PT. 28.1 SECONDS (11.7-14.9)
[2023-08-07 13:52] LABS: Anion Gap 6 (5-15); BUN 67 mg/dL (7-18); BUN/Creat Ratio 30.9 RATIO (10-20); Calcium,Total 8.4 mg/dL (8.5-10.1); Chloride 109 mmol/L (98-107); Creatinine, Serum 2.17 mg/dL (0.70-1.30); EST Glomerular Filtration Rate 31 mL/min (>60); Est Glom Filt Rate - Afr Amer 38 mL/min (>60); Estimated Creatinine Clearance 23.62 ml/min; Glucose 130 mg/dL (74-106); Magnesium 2.3 mg/dL (1.6-2.6); Potassium 3.7 mmol/L (3.5-5.1); Sodium Level 139 mmol/L (136-145); Troponin-I HS 101 pg/mL (3.0-78.0)
[2023-08-07 13:57] LABS: BNP,B-Type NATRIURETIC PEPTIDE 283.4 pg/mL (0-100)
[2023-08-07 14:44] VITALS: BP 106/54; PULSE 48; RESP 16; O2SAT 97
--- NOTE | 2023-08-07 15:06 | ED.VIS.DYS ---
HPI History of Present Illness Chief Complaint: Shortness of Breath Informant: patient and spouse/S.O. Narrative Narrative: 78-year-old male with a longstanding history of CHF presenting to the emergency room with increased leg swelling weight gain and dyspnea. He states that dyspnea is not necessarily worse than normal but states that its gotten worse over the past couple days. He states his legs are not more swollen than normal but states over the past couple days are more swollen. He states that he cannot button his pants because his abdomen is swollen but states that that is been going on for a while. He has a CardioMEMS device. It has been reading elevated in the high teens and low 20s over the past month. They have been manipulating his medications and today rate 22. [facility] Medical History Abnormal ankle brachial index (LOKI) Anemia due to stage 3b chronic kidney disease Back pain Back pain BPH (benign prostatic hyperplasia) Cardiology follow-up encounter CHF NYHA class III Chronic combined systolic and diastolic CHF (congestive heart failure) Chronic kidney disease, stage 3b Claudication Constipation CPAP (continuous positive airway pressure) dependence Diabetes Diarrhea Dietary restriction Elevated troponin (01/2021) Essential (primary) hypertension Gout Heartburn History of echocardiogram History of edema History of irregular heartbeat History of non-ST elevation myocardial infarction (NSTEMI) (07/25/21) History of pain when walking History of steroid therapy History of tobacco use HLD (hyperlipidemia) Hypertension Hypertrophic cardiomyopathy Hypokalemia Joint pain Lactic acidosis Left bundle branch block Leg cramps Leukocytosis Longstanding persistent atrial fibrillation Night sweats 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 Obesity (BMI 30.0-34.9) KIMBERLY (obstructive sleep apnea) Poor appetite Presence of implantable pulmonary artery pressure and heart rate monitoring system (03/25/21) Renal infarct Restless legs Secondary pulmonary arterial hypertension Shortness of breath on exertion Wears glasses Home Medications finasteride 5 mg tablet 5 mg PO DAILY prostate 12/19/20 [History Last Taken 12/22/20] glimepiride 1 mg tablet 1 mg PO DAILY diabetes 02/13/21 [History Last Taken Unknown] warfarin 2.5 mg tablet 2.5 mg PO MOFR blood thinner 03/11/21 [History Last Taken 05/31/22] cyanocobalamin (vitamin B-12) 1,000 mcg tablet (Vitamin B-12) 1,000 mcg PO DAILY 06/26/22 [History Last Taken Unknown] cholecalciferol (vitamin D3) 25 mcg (1,000 unit) capsule 25 mcg PO DAILY 08/01/22 [History Last Taken Unknown] metolazone 2.5 mg tablet 2.5 mg PO .PRN 08/01/22 [History Last Taken Unknown] carvedilol 6.25 mg tablet 6.25 mg PO BID #60 tabs 05/13/23 [Rx Last Taken Unknown] furosemide 40 mg tablet (Lasix) 40 mg PO BID #180 tabs 05/20/23 [Rx Last Taken Unknown] pantoprazole 40 mg tablet,delayed release 40 mg PO DAILY #30 tabs 07/02/23 [Rx Last Taken Unknown] amlodipine 5 mg tablet 5 mg PO DAILY #90 tabs 07/07/23 [Rx Last Taken Unknown] dapagliflozin propanediol 10 mg tablet (Farxiga) 10 mg PO DAILY #90 tabs 08/04/23 [Rx Last Taken Unknown] lisinopril 20 mg tablet 20 mg PO DAILY 08/07/23 [History Last Taken Unknown] warfarin 5 mg tablet 5 mg PO SUTUWETHSA 08/07/23 [History Last Taken Unknown] Allergy/AdvReac Type Severity Reaction Status Date / Time rivaroxaban [From Xarelto] Allergy Bleeding Verified 08/07/23 12:53 metoprolol AdvReac bradycardia Verified 08/07/23 12:53 Family History Father Heart disease Sister Heart disease Brother Heart disease Other Arthritis CVA (cerebral vascular accident) Depression Mental disorder Surgical History History of appendectomy History of cataract extraction History of left heart catheterization (02/19/21) History of transurethral resection of prostate (01/2019) History of ventricular septal myectomy (2000) Hx of umbilical hernia repair Social History Smoking Status: Former smoker how long ago did patient quit smokin years ago 0.25ppd second hand exposure: Yes alcohol intake: never caffeine: Yes Type: coffee Number of servings: 1 what type of physical activity do you participate in: other details: treadmill frequency: daily ROS ROS ED ROS Narrative Weight gain increased leg swelling Constitutional Constitutional ED: Denies chills or weight loss Eyes Eyes: Denies change in vision or diplopia ENT ENT ED: Denies ear pain, rhinorrhea or sore throat Cardiovascular Cardiovascular: Denies chest pain, orthopnea, palpitations or racing heartbeat Respiratory/Chest Respiratory/Chest: Reports dyspnea and dyspnea on exertion; Denies cough or orthopnea Gastrointestinal Gastrointestinal: Denies abdominal pain, diarrhea, nausea or vomiting Genitourinary Genitourinary ED: Denies dysuria, hematuria or urinary frequency Musculoskeletal Musculoskeletal: Denies arthralgias or myalgias Integumentary Denies abscess or rash Neurologic Neurologic: Denies headache(s) or weakness Psychiatric Psychiatric: Denies anxiety, depression, suicidal ideation or suicidal thoughts Endocrine Endocrinology: Denies polydipsia, polyphagia or polyuria Allergic/Immunologic Allergic/Immunologic ED: Denies mouth swelling, tongue swelling or urticaria EXAM Physical Exam Const Vital Signs: 08/07/23 12:53 08/07/23 13:12 08/07/23 13:15 Temperature 96.2 F L Temperature Source Temporal Pulse Rate 64 56 L Respiratory Rate 20 H 16 Respiratory Effort Normal Non-Labored Blood Pressure 152/73 H 139/78 H Blood Pressure Mean 99 98 Pulse Ox 96 97 Oxygen Delivery Method Room Air Room Air 08/07/23 14:44 Temperature Temperature Source Pulse Rate 48 L Respiratory Rate 16 Respiratory Effort Blood Pressure 106/54 L Blood Pressure Mean 71 Pulse Ox 97 Oxygen Delivery Method Room Air Positive well nourished, well developed and obese General Appearance ED: well developed Nutritional Appearance: obese HEENT Reports normocephalic, head/scalp atraumatic and moist mucous membranes Eyes PERRL and EOMs intact bilaterally Neck no lymphadenopathy, supple and no JVD Resp clear to auscultation bilaterally Resp Narrative: Mild increased work of breathing Cardio regular rate, regular rhythm and no murmurs GI non-tender GI Narrative: Slightly distended abdomen Auscultation: normoactive bowel sounds Palpation: soft; Negative for tender Back/Spine no CVA tenderness and normal ROM Extremity normal to inspection General Extremety ED: Yes edema General Extremity: edema bilateral lower extremity Details: moderate Neuro oriented x3 and CN's II-XII intact bilaterally Sensorium / Orientation: alert Motor Exam: strength 5/5 throughout Psych mental status grossly normal Mood & Affect: Negative for depressed or tearful Skin no rashes or lesions noted and no wounds MDM MDM MDM Narrative Medical decision making narrative: My independent interpretation of the chest x-ray is cardiomegaly but no overt pulmonary edema/CHF. Basic blood work was obtained shows hemoglobin 11.1. Creatinine 2.17 which is improved from his last. Troponin is 101 with a BNP at 283. Glucose of 130. I spoke with cardiology. Reviewed his recent medication changes. Their recommendation is admission for IV diuretics since the changes have not been effective at home and his CardioMEMS device was reading 22 today. 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 Labs: Laboratory Results - last 24 hr 08/07/23 13:15 WBC 10.5 RBC 3.58 L Hgb 11.1 L Hct 34.5 L MCV 96.4 H MCH 31.0 MCHC 32.2 RDW Std Deviation 50.7 H RDW Coeff of Kiersten 14.4 Plt Count 184 MPV 11.8 Immature Gran % (Auto) 0.900 Neut % (Auto) 73.1 H Lymph % (Auto) 12.5 L [place] % (Auto) 11.0 H Eos % (Auto) 1.9 Baso % (Auto) 0.6 Absolute Neuts (auto) 7.7 Absolute Lymphs (auto) 1.31 Nucleated RBC % 0 PT 28.1 H INR 2.6 Sodium 139 Potassium 3.7 Chloride 109 H Carbon Dioxide 24.0 Anion Gap 6 BUN 67 H Creatinine 2.17 H Estim Creat Clear Calc 23.62 Est GFR (MDRD) Af Amer 38 L Est GFR (MDRD) Non-Af 31 L BUN/Creatinine Ratio 30.9 H Glucose 130 H Calcium 8.4 L Magnesium 2.3 Troponin I High Sens 101 H B-Natriuretic Peptide 283.4 H Radiography Diagnostic Testing: Clinical Impression(s) from Imaging Studies Chest X-Ray 08/07/23 13:35 IMPRESSION: Cardiomegaly. No acute abnormality is seen. Electronically Signed: Joel Fuentes MD at 14:12 EST , EKG Initial EKG: Attestation: I personally reviewed and interpreted this EKG as follows: Comments: A-fib with ventricular rate of 56 bpm. Left bundle branch block noted Management Discussion w/another healthcare provider: Hospitalist and Buttonhole Facer (Cardiology) Discharge Plan Dx/Rx/DC Orders Clinical Impression: Chronic combined systolic and diastolic CHF (congestive heart failure), SOB (shortness of breath), Presence of implantable pulmonary artery pressure and heart rate monitoring system, Diabetes, Chronic kidney disease, stage 3b Disposition Disposition: Acute Care Hospital [facility]
--- NOTE | 2023-08-07 15:28 | NURSING ---
DR CARRASCO FOR DR LOERA
--- NOTE | 2023-08-07 16:18 | PCM.HP.STD ---
HPI - General General Date of Admission: 08/07/23 HPI Narrative DAKOTA GE, is a 78 M who presents to the hospital with increasing shortness of breath and a 14 pound weight gain. 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 He denies any chest pain or lightheadedness. Of note he does have a CardioMEMS device that checks his PA pressures and they have been higher recently and they have been trying to get this under control in the outpatient setting. He did have an echo on 03/05/2023 with an EF of 53%. [facility] Medical History Abnormal ankle brachial index (LOKI) Anemia due to stage 3b chronic kidney disease Back pain Back pain BPH (benign prostatic hyperplasia) Cardiology follow-up encounter CHF NYHA class III Chronic combined systolic and diastolic CHF (congestive heart failure) Chronic kidney disease, stage 3b Claudication Constipation CPAP (continuous positive airway pressure) dependence Diabetes Diarrhea Dietary restriction Elevated troponin (01/2021) Essential (primary) hypertension Gout Heartburn History of echocardiogram History of edema History of irregular heartbeat History of non-ST elevation myocardial infarction (NSTEMI) (07/25/21) History of pain when walking History of steroid therapy History of tobacco use HLD (hyperlipidemia) Hypertension Hypertrophic cardiomyopathy Hypokalemia Joint pain Lactic acidosis Left bundle branch block Leg cramps Leukocytosis Longstanding persistent atrial fibrillation Night sweats 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 Obesity (BMI 30.0-34.9) KIMBERLY (obstructive sleep apnea) Poor appetite Presence of implantable pulmonary artery pressure and heart rate monitoring system (03/25/21) Renal infarct Restless legs Secondary pulmonary arterial hypertension Shortness of breath on exertion Wears glasses Home Medications finasteride 5 mg tablet 5 mg PO DAILY prostate 12/19/20 [History Last Taken 12/22/20] glimepiride 1 mg tablet 1 mg PO DAILY diabetes 02/13/21 [History Last Taken Unknown] warfarin 2.5 mg tablet 2.5 mg PO MOFR blood thinner 03/11/21 [History Last Taken 05/31/22] cyanocobalamin (vitamin B-12) 1,000 mcg tablet (Vitamin B-12) 1,000 mcg PO DAILY 06/26/22 [History Last Taken Unknown] cholecalciferol (vitamin D3) 25 mcg (1,000 unit) capsule 25 mcg PO DAILY 08/01/22 [History Last Taken Unknown] metolazone 2.5 mg tablet 2.5 mg PO .PRN 08/01/22 [History Last Taken Unknown] carvedilol 6.25 mg tablet 6.25 mg PO BID #60 tabs 05/13/23 [Rx Last Taken Unknown] furosemide 40 mg tablet (Lasix) 40 mg PO BID #180 tabs 05/20/23 [Rx Last Taken Unknown] pantoprazole 40 mg tablet,delayed release 40 mg PO DAILY #30 tabs 07/02/23 [Rx Last Taken Unknown] amlodipine 5 mg tablet 5 mg PO DAILY #90 tabs 07/07/23 [Rx Last Taken Unknown] dapagliflozin propanediol 10 mg tablet (Farxiga) 10 mg PO DAILY #90 tabs 08/04/23 [Rx Last Taken Unknown] lisinopril 20 mg tablet 20 mg PO DAILY 08/07/23 [History Last Taken Unknown] warfarin 5 mg tablet 5 mg PO SUTUWETHSA 08/07/23 [History Last Taken Unknown] Allergy/AdvReac Type Severity Reaction Status Date / Time rivaroxaban [From Xarelto] Allergy Bleeding Verified 08/07/23 12:53 metoprolol AdvReac bradycardia Verified 08/07/23 12:53 Family History Father Heart disease Sister Heart disease Brother Heart disease Other Arthritis CVA (cerebral vascular accident) Depression Mental disorder Surgical History History of appendectomy History of cataract extraction History of left heart catheterization (02/19/21) History of transurethral resection of prostate (01/2019) History of ventricular septal myectomy (2000) Hx of umbilical hernia repair Social History Smoking Status: Former smoker how long ago did patient quit smokin years ago 0.25ppd second hand exposure: Yes alcohol intake: never caffeine: Yes Type: coffee Number of servings: 1 what type of physical activity do you participate in: other details: treadmill frequency: daily ROS Constitutional Constitutional: Reports change in weight; Denies chills, fatigue, fever(s) or malaise Eyes Eyes: Denies blurry vision ENT HEENT: Denies headache(s) or nasal discharge Cardiovascular Cardiovascular: Denies chest pain, dyspnea on exertion or syncope Respiratory/Chest Respiratory/Chest: Reports shortness of breath at rest and shortness of breath with exertion; Denies cough Gastrointestinal Gastrointestinal: Denies constipation, diarrhea, nausea or vomiting Genitourinary Genitourinary: Denies dysuria Neurologic Neurologic: Denies focal weakness, numbness or tremor(s) Psychiatric Psychiatric: Denies anxiety or depression Vital Signs Vital Signs Vital Signs: 08/07/23 12:53 08/07/23 13:12 08/07/23 13:15 Temperature 96.2 F L Temperature Source Temporal Pulse Rate 64 56 L Respiratory Rate 20 H 16 Respiratory Effort Normal Non-Labored Blood Pressure 152/73 H 139/78 H Blood Pressure Mean 99 98 Pulse Ox 96 97 Oxygen Delivery Method Room Air Room Air 08/07/23 14:44 Temperature Temperature Source Pulse Rate 48 L Respiratory Rate 16 Respiratory Effort Blood Pressure 106/54 L Blood Pressure Mean 71 Pulse Ox 97 Oxygen Delivery Method Room Air Weight Weight: 198 lb 6.656 oz Body Mass Index (BMI) 33.0 Physical Exam Narrative General: Alert, Oriented x3, Cooperative, No apparent distress HEENT: Atraumatic, PERRLA, EOMI, Normocephalic Oral: Moist Mucosa Neck: Supple, No JVD Lungs: Diminished, Normal air movement, No rhonchi, No wheeze, No rales Cardiovascular: Regular rate, Regular Rhythm, Normal S1, Normal S2, No murmurs Abdomen: Soft, Non Tender, Non-Distended, No Hepato-splenomegaly Extremities: Edema, Capillary Refill Less than 3 Seconds Skin: No rashes, No breakdown Musculoskeletal: No Tenderness to Palpation of Joints or Extremities Neurological: Cranial nerves II-XII grossly intact, Motor Exam 5/5 strength throughout, Sensory exam intact to light touch and pain Psych/Mental Status: Normal Affect, Appropriate Results Lab / Micro Data 08/07/23 13:15 08/07/23 13:15 Labs: Laboratory Results - last 24 hr 08/07/23 13:15: WBC 10.5, RBC 3.58 L, Hgb 11.1 L, Hct 34.5 L, MCV 96.4 H, MCH 31.0, MCHC 32.2, RDW Std Deviation 50.7 H, RDW Coeff of Kiersten 14.4, Plt Count 184, MPV 11.8, Immature Gran % (Auto) 0.900, Neut % (Auto) 73.1 H, Lymph % (Auto) 12.5 L, [place] % (Auto) 11.0 H, Eos % (Auto) 1.9, Baso % (Auto) 0.6, Absolute Neuts (auto) 7.7, Absolute Lymphs (auto) 1.31, Nucleated RBC % 0, PT 28.1 H, INR 2.6, Sodium 139, Potassium 3.7, Chloride 109 H, Carbon Dioxide 24.0, Anion Gap 6, BUN 67 H, Creatinine 2.17 H, Estim Creat Clear Calc 23.62, Est GFR (MDRD) Af Amer 38 L, Est GFR (MDRD) Non-Af 31 L, BUN/Creatinine Ratio 30.9 H, Glucose 130 H, Calcium 8.4 L, Magnesium 2.3, Troponin I High Sens 101 H, B-Natriuretic Peptide 283.4 H Imagaing Radiology Impression Chest X-Ray 08/07/23 13:35 IMPRESSION: Cardiomegaly. No acute abnormality is seen. Electronically Signed: Joel Fuentes MD at 14:12 EST , Assessment & Plan Assessment/Plan (1) Chronic combined systolic and diastolic CHF (congestive heart failure): PLAN: Plan 1. Acute on chronic combined systolic and diastolic CHF/HTN/A-fib/CKD 3B ? He does have a CardioMEMS device in place that does monitor his pulmonary artery pressure as well as heart rate they would like this to be around 16 mmHg and he has been sitting around 22 mmHg ? Continue with IV Lasix at 80 mg twice daily ? We will monitor renal function ? He does see Dr. Barahona in nephrology if his renal function were to elevate ? He did does have a history of a myomectomy secondary to hypertrophic cardiomyopathy ? Continue with Coumadin will monitor his INR currently on admission it was 2.6 ? We will monitor his blood pressures and make adjustments as necessary ? His metolazone is on hold currently in the outpatient setting ? I had a 25-minute discussion with him and the family on advance care planning including palliative care options in the outpatient setting ? No need to repeat an echo that he had in March 01. DM2 ? Will hold his home glimepiride ? Will place him on sliding scale insulin ? We will continue his Farxiga secondary to his systolic and diastolic CHF ? We will monitor make adjustments as necessary 3. BPH ? Stable ? Continue with his home medications DVT: Coumadin 75 minutes was spent on direct patient care, including documentation as well as chart review and collaboration with colleagues Charges/Coding Visit Charges Inpatient E&M: 58546 Init Hosp L3 Procedures Hospitalists Procedures: 44601 Advncd Care Plan 30 Min
[2023-08-07 17:13] VITALS: BMI 32.3
[2023-08-07 17:15] VITALS: BP 146/93; PULSE 71; RESP 18; TEMP 36.4; O2SAT 95
[2023-08-07] MEDS: 0.9% Saline Lock 10 ML Syringe IV (17:43)
[2023-08-07] MEDS: Furosemide 100 MG/10 ML Vial 80 MG IV (17:43)
[2023-08-07] MEDS: Carvedilol 6.25 MG Tablet PO (21:55)
[2023-08-07] MEDS: Insulin Lispro 100 UNIT/ML INSULN.PEN SC (21:55)
[2023-08-07 22:11] VITALS: BP 139/56; PULSE 79; RESP 18; TEMP 36.5; O2SAT 98
[2023-08-07 22:55] LABS: Bedside Glucose 180 mg/dL (74-106)
[2023-08-08 04:35] VITALS: BP 128/79; PULSE 65; RESP 18; TEMP 36.4; O2SAT 96
[2023-08-08 05:52] VITALS: BMI 32.3
[2023-08-08 07:11] LABS: Bedside Glucose 90 mg/dL (74-106)
[2023-08-08 08:18] VITALS: BP 148/74; PULSE 68; RESP 16; TEMP 37; O2SAT 99
[2023-08-08] MEDS: Lisinopril 20 MG Tablet PO (08:22)
[2023-08-08] MEDS: Empagliflozin 25 MG Tablet PO (08:22)
[2023-08-08] MEDS: amLODIPine 5 MG Tablet PO (08:22)
[2023-08-08] MEDS: Carvedilol 6.25 MG Tablet PO (08:23)
[2023-08-08] MEDS: Furosemide 100 MG/10 ML Vial 80 MG IV (08:23)
[2023-08-08] MEDS: Finasteride 5 MG Tablet PO (08:24)
--- NOTE | 2023-08-08 08:30 | PCM.PN.HOSP ---
Reason for Visit Reason for Visit: Diagnoses Chronic combined systolic (congestive) and diastolic (congestive) heart failure (08/07/23) Objective Data Objective Data Vital Signs: Vital Signs Temp Pulse Resp BP Pulse Ox O2 Del Method 98.6 F 68 16 148/74 H 99 Room Air 08/08/23 08:18 08/08/23 08:18 08/08/23 08:18 08/08/23 08:18 08/08/23 08:18 08/08/23 08:18 Oxygen Delivery Method Room Air Weight: 88.3 kg Body Mass Index (BMI) 32.3 Intake & Output: Intake and Output for Last 24 Hours 08/06/23 08/07/23 08/08/23 23:59 23:59 23:59 Intake Total 100 / 100 Output Total 500 / 500 650 / 650 Balance -400 / -400 -650 / -650 Lab / Micro Data 08/07/23 13:15 08/07/23 13:15 Labs: Laboratory Results - last 24 hr 08/07/23 13:15: WBC 10.5, RBC 3.58 L, Hgb 11.1 L, Hct 34.5 L, MCV 96.4 H, MCH 31.0, MCHC 32.2, RDW Std Deviation 50.7 H, RDW Coeff of Kiersten 14.4, Plt Count 184, MPV 11.8, Immature Gran % (Auto) 0.900, Neut % (Auto) 73.1 H, Lymph % (Auto) 12.5 L, [place] % (Auto) 11.0 H, Eos % (Auto) 1.9, Baso % (Auto) 0.6, Absolute Neuts (auto) 7.7, Absolute Lymphs (auto) 1.31, Nucleated RBC % 0, PT 28.1 H, INR 2.6, Sodium 139, Potassium 3.7, Chloride 109 H, Carbon Dioxide 24.0, Anion Gap 6, BUN 67 H, Creatinine 2.17 H, Estim Creat Clear Calc 23.62, Est GFR (MDRD) Af Amer 38 L, Est GFR (MDRD) Non-Af 31 L, BUN/Creatinine Ratio 30.9 H, Glucose 130 H, Calcium 8.4 L, Magnesium 2.3, Troponin I High Sens 101 H, B-Natriuretic Peptide 283.4 H 08/07/23 21:46: POC Glucose 180 H 08/08/23 06:41: POC Glucose 90 Radiography Diagnostic Testing: Radiology Impression Chest X-Ray 08/07/23 13:35 IMPRESSION: Cardiomegaly. No acute abnormality is seen. Electronically Signed: Joel Fuentes MD at 14:12 EST , Physical Exam Narrative General: Alert, Oriented x3, Cooperative, No apparent distress HEENT: Atraumatic, PERRLA, EOMI, Normocephalic Oral: Moist Mucosa Neck: Supple, No JVD Lungs: Diminished, Normal air movement, No rhonchi, No wheeze, No rales Cardiovascular: Regular rate, Regular Rhythm, Normal S1, Normal S2, No murmurs Abdomen: Soft, Non Tender, Non-Distended, No Hepato-splenomegaly Extremities: Edema, Capillary Refill Less than 3 Seconds Skin: No rashes, No breakdown Musculoskeletal: No Tenderness to Palpation of Joints or Extremities Neurological: Cranial nerves II-XII grossly intact, Motor Exam 5/5 strength throughout, Sensory exam intact to light touch and pain Psych/Mental Status: Normal Affect, Appropriate Assessment & Plan Assessment/Plan (1) Chronic combined systolic and diastolic CHF (congestive heart failure): PLAN: Plan 1. Acute on chronic combined systolic and diastolic CHF/HTN/A-fib/CKD 3B ? He does have a CardioMEMS device in place that does monitor his pulmonary artery pressure as well as heart rate they would like this to be around 16 mmHg and he has been sitting around 22 mmHg ? Continue with IV Lasix at 80 mg twice daily ? We will monitor renal function ? He does see Dr. Barahona in nephrology if his renal function were to elevate ? He did does have a history of a myomectomy secondary to hypertrophic cardiomyopathy ? Continue with Coumadin will monitor his INR currently on admission it was 2.6 ? We will monitor his blood pressures and make adjustments as necessary ? His metolazone is on hold currently in the outpatient setting ? I had a 25-minute discussion with him and the family on advance care planning including palliative care options in the outpatient setting ? No need to repeat an echo that he had in March 01. DM2 ? Will hold his home glimepiride ? Will place him on sliding scale insulin ? We will continue his Farxiga secondary to his systolic and diastolic CHF ? We will monitor make adjustments as necessary 3. BPH ? Stable ? Continue with his home medications DVT: Coumadin 75 minutes was spent on direct patient care, including documentation as well as chart review and collaboration with colleagues
[2023-08-08 10:15] LABS: Absolute Neutrophil Count 7.1 X10^3/uL (2.0-7.7); Basophil# 0.06 X10^3/uL; Basophil% 0.6 % (0-1); Eosinophil# 0.15 X10^3/uL; Eosinophils% 1.6 % (0-5); Hematocrit 34.4 % (40-54); Hemoglobin 10.8 g/dL (13.0-16.5); Lymphocyte % 12.9 % (19-41); Mean Corp Hgb Conc 31.4 g/dL (32-36); Mean Corpuscular Hgb 30.1 pg (27.0-32.0); Mean Corpuscular Volume 95.8 fL (80-94); Mean Platelet Vol. 11.9 fl (6.2-12.0); Monocyte% 8.6 % (0-10); NRBC Flagged by Analyzer 0 % (0-5); Neutrophil # 7.06 X10^3/uL (2.7-7.7); Neutrophil % 75.7 % (47-70); POSITIVE COUNT YES; RBC Distribution Width CV 14.4 % (11.6-14.6); RBC Distribution Width SD 50.2 fl (35.1-43.9); Red Blood Count 3.59 M/mm3 (4.6-6.2); White Blood Count 9.3 K/mm3 (4.4-11.0)
[2023-08-08 10:24] LABS: International Normalized Ratio 2.4; Prothrombin Time (Protime)PT. 26.7 SECONDS (11.7-14.9)
[2023-08-08 10:37] LABS: Anion Gap 7 (5-15); BUN 62 mg/dL (7-18); BUN/Creat Ratio 27.2 RATIO (10-20); Calcium,Total 8.8 mg/dL (8.5-10.1); Chloride 108 mmol/L (98-107); Creatinine, Serum 2.28 mg/dL (0.70-1.30); EST Glomerular Filtration Rate 30 mL/min (>60); Est Glom Filt Rate - Afr Amer 36 mL/min (>60); Estimated Creatinine Clearance 22.48 ml/min; Glucose 136 mg/dL (74-106); Potassium 3.8 mmol/L (3.5-5.1); Sodium Level 139 mmol/L (136-145)
[2023-08-08 11:04] LABS: Platelet Count 161 K/mm3 (150-450)
[2023-08-08] MEDS: Insulin Lispro 100 UNIT/ML INSULN.PEN SC (11:04)
--- NOTE | 2023-08-08 11:24 | PCM.DC.SUM ---
Providers Date of Admission: 08/07/23 Primary Care Physician: Dr. Howard Escobar DO Reason For Visit: CHF Diagnosis Discharge Diagnosis (1) Chronic combined systolic and diastolic CHF (congestive heart failure): Status: Chronic Code(s): I50.42 - Chronic combined systolic (congestive) and diastolic (congestive) heart failure Medications at Discharge Home Medications finasteride 5 mg tablet 5 mg PO DAILY prostate 12/19/20 glimepiride 1 mg tablet 1 mg PO DAILY diabetes 02/13/21 warfarin 2.5 mg tablet 2.5 mg PO MOFR blood thinner 03/11/21 cyanocobalamin (vitamin B-12) 1,000 mcg tablet (Vitamin B-12) 1,000 mcg PO DAILY 06/26/22 cholecalciferol (vitamin D3) 25 mcg (1,000 unit) capsule 25 mcg PO DAILY 08/01/22 metolazone 2.5 mg tablet 2.5 mg PO .PRN 08/01/22 carvedilol 6.25 mg tablet 6.25 mg PO BID #60 tabs 05/13/23 furosemide 40 mg tablet (Lasix) 40 mg PO BID #180 tabs 05/20/23 pantoprazole 40 mg tablet,delayed release 40 mg PO DAILY #30 tabs 07/02/23 amlodipine 5 mg tablet 5 mg PO DAILY #90 tabs 07/07/23 dapagliflozin propanediol 10 mg tablet (Farxiga) 10 mg PO DAILY #90 tabs 08/04/23 lisinopril 20 mg tablet 20 mg PO DAILY 08/07/23 warfarin 5 mg tablet 5 mg PO SUTUWETHSA 08/07/23 Hospital Course Summary of Care Provided Minutes Spent on Discharge: 35 Hospital Course: Patient is an 78-year-old gentleman with multiple comorbidities admitted with progressive shortness of breath 1. Acute on chronic congestive heart failure with preserved ejection fraction ? Echo from 03/05/2023 demonstrated EF of 53%. Patient admitted to monitored bed managed with strict input and output, daily weights as well as diuretics and supplemental oxygen patient responded to treatment 2. Hypertension - Blood pressure controlled, home medications continued with dose adjustment as needed 3. Chronic kidney disease stage IIIb ? Patient is followed by nephrology as outpatient 4. Paroxysmal A-fib ? Rate controlled on systemic anticoagulation with Coumadin with a therapeutic INR 5. Elevated troponin ? Secondary to myocardial injury from CHF 6. Hypertrophic cardiomyopathy ? Status postseptal myomectomy in 2000 7. Status post cardioMEMs device placement ? In February 2021 8. Diabetes mellitus type II -patient's oral hypoglycemics held. Placed on long acting insulin, Accu-Cheks a.c. and at bedtime and covered with sliding scale insulin 9. BPH ? Patient is on finasteride 10. DVT prophylaxis ? Patient is on Coumadin Physical Exam Narrative GENERAL: cooperative HEENT: Atraumatic; normocephalic EYES; Anicteric, Normal Conjunctiva NECK; supple, normal thyroid, RESPIRATORY: Diminished to auscultation CARDIOVASCULAR: Regular S1 S2, GI: soft, normoactive bowel sounds, : No Renal angle tenderness; EXTREMITIES: No edema, no clubbing, MUSCULOSKELETAL: no muscle wasting NEURO: Awake; no lateralizing signs. SKIN: No Rash PSYCH; Flat affect Weight / BMI Weight Weight: 88.3 kg Body Mass Index (BMI) 32.3 ABG / Lab / Microbiology Data 08/08/23 09:30 08/08/23 09:30 Laboratory: Laboratory Results - last 24 hr 08/07/23 13:15: WBC 10.5, RBC 3.58 L, Hgb 11.1 L, Hct 34.5 L, MCV 96.4 H, MCH 31.0, MCHC 32.2, RDW Std Deviation 50.7 H, RDW Coeff of Kiersten 14.4, Plt Count 184, MPV 11.8, Immature Gran % (Auto) 0.900, Neut % (Auto) 73.1 H, Lymph % (Auto) 12.5 L, [place] % (Auto) 11.0 H, Eos % (Auto) 1.9, Baso % (Auto) 0.6, Absolute Neuts (auto) 7.7, Absolute Lymphs (auto) 1.31, Nucleated RBC % 0, PT 28.1 H, INR 2.6, Sodium 139, Potassium 3.7, Chloride 109 H, Carbon Dioxide 24.0, Anion Gap 6, BUN 67 H, Creatinine 2.17 H, Estim Creat Clear Calc 23.62, Est GFR (MDRD) Af Amer 38 L, Est GFR (MDRD) Non-Af 31 L, BUN/Creatinine Ratio 30.9 H, Glucose 130 H, Calcium 8.4 L, Magnesium 2.3, Troponin I High Sens 101 H, B-Natriuretic Peptide 283.4 H 08/07/23 21:46: POC Glucose 180 H 08/08/23 06:41: POC Glucose 90 08/08/23 09:30: WBC 9.3, RBC 3.59 L, Hgb 10.8 L, Hct 34.4 L, MCV 95.8 H, MCH 30.1, MCHC 31.4 L, RDW Std Deviation 50.2 H, RDW Coeff of Kiersten 14.4, Plt Count 161, MPV 11.9, Immature Gran % (Auto) 0.600, Neut % (Auto) 75.7 H, Lymph % (Auto) 12.9 L, [place] % (Auto) 8.6, Eos % (Auto) 1.6, Baso % (Auto) 0.6, Absolute Neuts (auto) 7.1, Absolute Lymphs (auto) 1.20, Nucleated RBC % 0, PT 26.7 H, INR 2.4, Sodium 139, Potassium 3.8, Chloride 108 H, Carbon Dioxide 24.0, Anion Gap 7, BUN 62 H, Creatinine 2.28 H, Estim Creat Clear Calc 22.48, Est GFR (MDRD) Af Amer 36 L, Est GFR (MDRD) Non-Af 30 L, BUN/Creatinine Ratio 27.2 H, Glucose 136 H, Calcium 8.8 Radiography Diagnostic Testing: Radiology Impression Chest X-Ray 08/07/23 13:35 IMPRESSION: Cardiomegaly. No acute abnormality is seen. Electronically Signed: Joel Fuentes MD at 14:12 EST , D/C Instructions Discharge Diet: 1800 Calorie Control Diet, 8 Cup Fluid Restriction and 2000 mg Sodium Diet Discharge Activity: Return to Normal Activity Call your doctor if you observe: Fever of 101 or Higher, Shortness of breath, Fainting spells and Chest pain Meaningful Use Info Meaningful Use Diagnoses (Choose all that apply): CHF CHF JAYDE/ARB ordered at discharge?: Yes Documented LVEF (%): 53 Discharge Plan Admission Admit Date/Time: 08/07/23 16:02 Attending Provider: Lee Guillory Primary Care Provider: Howard Escobar Consulting Providers: Titi Loomis Discharge Orders/Prescriptions Prescriptions: Continued finasteride 5 mg tablet 5 mg PO DAILY Patient Comments: TAKE 1 TABLET BY MOUTH ONCE DAILY glimepiride 1 mg tablet 1 mg PO DAILY cyanocobalamin (vitamin B-12) [Vitamin B-12] 1,000 mcg tablet 1,000 mcg PO DAILY cholecalciferol (vitamin D3) 25 mcg (1,000 unit) capsule 25 mcg PO DAILY metolazone 2.5 mg tablet 2.5 mg PO .PRN Hold Instructions: not on med list pantoprazole 40 mg tablet,delayed release (DR/EC) 40 mg PO DAILY Qty: 30 0RF Hold Instructions: not on pt's med list warfarin 2.5 mg tablet 2.5 mg PO MOFR Rx Instructions: Managed by PCP warfarin 5 mg tablet 5 mg PO SUTUWETHSA lisinopril 20 mg tablet 20 mg PO DAILY carvedilol 6.25 mg tablet 6.25 mg PO BID Qty: 60 11RF Rx Instructions: must administer with a meal/food furosemide [Lasix] 40 mg tablet 40 mg PO BID Qty: 180 3RF amlodipine 5 mg tablet 5 mg PO DAILY Qty: 90 3RF Farxiga 10 mg tablet 10 mg PO DAILY Qty: 90 3RF Referrals / Follow Up: Howard Escobar DO [Primary Care Provider] - In 1 Week Disposition Disposition (needs filled in before D/C Order can be placed): Home, Self Care Charges/Coding Visit Charges Inpatient E&M: 64901 Disch Hosp >30min
[2023-08-08 11:39] LABS: Bedside Glucose 207 mg/dL (74-106)
== END 2023-08-08 11:38 | disposition home or self-care (01) ==
LOC: ED 15:45 → PCU 16:21
PROVIDERS: Admitting Provider Family Medicine; Emergency Provider Emergency Medicine; PCP Family Medicine; Visit Provider Internal Medicine
DX: I13.0 Hypertensive heart and chronic kidney disease with heart failure and stage 1 through stage 4 chronic kidney disease, or unspecified chronic kidney disease (principal); E11.51 Type 2 diabetes mellitus with diabetic peripheral angiopathy without gangrene; I42.2 Other hypertrophic cardiomyopathy; I50.42 Chronic combined systolic (congestive) and diastolic (congestive) heart failure; I27.21 Secondary pulmonary arterial hypertension; E11.22 Type 2 diabetes mellitus with diabetic chronic kidney disease; I48.0 Paroxysmal atrial fibrillation; N18.32 Chronic kidney disease, stage 3b; Z87.891 Personal history of nicotine dependence; I25.10 Atherosclerotic heart disease of native coronary artery without angina pectoris; R19.00 Intra-abdominal and pelvic swelling, mass and lump, unspecified site; E78.5 Hyperlipidemia, unspecified; G47.33 Obstructive sleep apnea (adult) (pediatric); E66.9 Obesity, unspecified; Z79.899 Other long term (current) drug therapy; Z79.84 Long term (current) use of oral hypoglycemic drugs; Z79.01 Long term (current) use of anticoagulants; Z68.33 Body mass index [BMI] 33.0-33.9, adult; N40.0 Benign prostatic hyperplasia without lower urinary tract symptoms
CPT/HCPCS: 36415; 71045; 80048; 82962; 83735; 83880; 84484; 85025; 85610; 93005; 96374; 96376; 99221; 99285; A4216; G0378; J1940

== ENCOUNTER 2023-08-25 12:55 | Inpatient (IN) | payer MEDICARE, BC, SELFPAY ==
[2023-08-25] VITALS (10 sets, daily range): BP systolic 131–158; BP diastolic 62–78; PULSE 65–78; RESP 18–21; TEMP 35.8–36.8; O2SAT 93–97; BMI 32.6; BMI 31.7
--- NOTE | 2023-08-25 12:59 | EKG12_ITS ---
Test Reason : DYSPNEA/HX CHF Blood Pressure : / mmHG Vent. Rate : 070 BPM Atrial Rate : 000 BPM P-R Int : 000 ms QRS Dur : 168 ms QT Int : 458 ms P-R-T Axes : 000 024 203 degrees QTc Int : 494 ms Atrial fibrillation Left bundle branch block Abnormal ECG Confirmed by ZANE STONER, FUENTES ([id number]), content editor ANDRÉS MACK ([id number]) on 09/01/2023 8:14:30 AM Referred By: Confirmed By:UFENTES DEGROOT MD
[2023-08-25 13:38] LABS: Absolute Lymphocyte Count 0.83 X10^3/uL (0.83-4.51); Absolute Neutrophil Count 16.4 X10^3/uL (2.0-7.7); Basophil# 0.08 X10^3/uL; Basophil% 0.4 % (0-1); Eosinophil# 0.16 X10^3/uL; Eosinophils% 0.8 % (0-5); Hematocrit 36.6 % (40-54); Hemoglobin 11.9 g/dL (13.0-16.5); Lymphocyte # 0.83 X10^3/ul (0.83-4.51); Lymphocyte % 4.4 % (19-41); Mean Corp Hgb Conc 32.5 g/dL (32-36); Mean Corpuscular Hgb 30.1 pg (27.0-32.0); Mean Corpuscular Volume 92.4 fL (80-94); Mean Platelet Vol. 11.4 fl (6.2-12.0); Monocyte# 1.42 X10^3/uL; Monocyte% 7.4 % (0-10); NRBC Flagged by Analyzer 0 % (0-5); Neutrophil % 86.1 % (47-70); Platelet Count 240 K/mm3 (150-450); RBC Distribution Width CV 14.1 % (11.6-14.6); RBC Distribution Width SD 47.8 fl (35.1-43.9); Red Blood Count 3.96 M/mm3 (4.6-6.2); White Blood Count 19.1 K/mm3 (4.4-11.0)
--- NOTE | 2023-08-25 13:42 | RAD_ITS ---
STUDY: X-RAY CHEST REASON FOR EXAM: Male, 78 years old. Shortness of breath. TECHNIQUE: Single frontal view of the chest. COMPARISON: August 07, 2023 FINDINGS: Cardiomegaly with interval development of increased diffuse interstitial pattern compatible with interstitial edema/congestive failure. Stable sternotomy wires, aortic tortuosity and mild central elevation of the right hemidiaphragm. No abnormality of the visualized soft tissue structures of the upper abdomen. RAD/Chest 1 View (Portable) IMPRESSION: Interval development of findings most compatible with mild interstitial edema/congestive failure and follow-up chest imaging to resolution is recommended. Electronically Signed: Pancho Conner MD at 13:58 EST ,
--- NOTE | 2023-08-25 13:55 | EX.ED.DYSGE1 ---
HPI History of Present Illness Chief Complaint: Shortness of Breath Informant: patient Onset/Context/Timing Onset: Weeks Narrative Narrative: Patient presents secondary to increasing shortness of breath of the past several weeks to potentially the last month. He does have a history of CHF. He is still on furosemide twice a day. He states he has noted increased swelling in his legs as well as in his abdomen. He reports at least a 10 pound weight gain in the last month. No significant chest pain. Today especially he noted significant shortness of breath with any exertion. He has not noted fever or chills. No significant cough. [facility] Medical History (Updated 08/25/23 @ 15:[address] Madie Martines MD) Abnormal ankle brachial index (LOKI) Anemia due to stage 3b chronic kidney disease Back pain BPH (benign prostatic hyperplasia) Cardiology follow-up encounter CHF NYHA class III Chronic combined systolic and diastolic CHF (congestive heart failure) Chronic kidney disease, stage 3b Claudication Constipation CPAP (continuous positive airway pressure) dependence Diabetes Diarrhea Dietary restriction Elevated troponin (01/2021) Essential (primary) hypertension Gout Heartburn History of echocardiogram History of edema History of irregular heartbeat History of non-ST elevation myocardial infarction (NSTEMI) (07/25/21) History of pain when walking History of steroid therapy History of tobacco use HLD (hyperlipidemia) Hypertension Hypertrophic cardiomyopathy Hypokalemia Joint pain Lactic acidosis Left bundle branch block Leg cramps Leukocytosis Longstanding persistent atrial fibrillation Night sweats 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 Obesity (BMI 30.0-34.9) KIMBERLY (obstructive sleep apnea) Poor appetite Presence of implantable pulmonary artery pressure and heart rate monitoring system (03/25/21) Renal infarct Restless legs Secondary pulmonary arterial hypertension Shortness of breath on exertion Wears glasses Home Medications finasteride 5 mg tablet 5 mg PO DAILY prostate 12/19/20 [History Last Taken 12/22/20] glimepiride 1 mg tablet 1 mg PO DAILY diabetes 02/13/21 [History Last Taken Unknown] warfarin 2.5 mg tablet 2.5 mg PO MOFR blood thinner 03/11/21 [History Last Taken 05/31/22] cyanocobalamin (vitamin B-12) 1,000 mcg tablet (Vitamin B-12) 1,000 mcg PO DAILY 06/26/22 [History Last Taken Unknown] cholecalciferol (vitamin D3) 25 mcg (1,000 unit) capsule 25 mcg PO DAILY 08/01/22 [History Last Taken Unknown] metolazone 2.5 mg tablet 2.5 mg PO .PRN 08/01/22 [History Last Taken Unknown] carvedilol 6.25 mg tablet 6.25 mg PO BID #60 tabs 05/13/23 [Rx Last Taken Unknown] furosemide 40 mg tablet (Lasix) 40 mg PO BID #180 tabs 05/20/23 [Rx Last Taken Unknown] pantoprazole 40 mg tablet,delayed release 40 mg PO DAILY #30 tabs 07/02/23 [Rx Last Taken Unknown] amlodipine 5 mg tablet 5 mg PO DAILY #90 tabs 07/07/23 [Rx Last Taken Unknown] dapagliflozin propanediol 10 mg tablet (Farxiga) 10 mg PO DAILY #90 tabs 08/04/23 [Rx Last Taken Unknown] lisinopril 20 mg tablet 20 mg PO DAILY 08/07/23 [History Last Taken Unknown] warfarin 5 mg tablet 5 mg PO SUTUWETHSA 08/07/23 [History Last Taken Unknown] Allergy/AdvReac Type Severity Reaction Status Date / Time rivaroxaban [From Xarelto] Allergy Bleeding Verified 08/25/23 12:56 metoprolol AdvReac bradycardia Verified 08/25/23 12:56 Family History Father Heart disease Sister Heart disease Brother Heart disease Other Arthritis CVA (cerebral vascular accident) Depression Mental disorder Surgical History History of appendectomy History of cataract extraction History of left heart catheterization (02/19/21) History of transurethral resection of prostate (01/2019) History of ventricular septal myectomy (2000) Hx of umbilical hernia repair Social History Smoking Status: Former smoker how long ago did patient quit smokin years ago 0.25ppd second hand exposure: Yes alcohol intake: never caffeine: Yes Type: coffee Number of servings: 1 what type of physical activity do you participate in: other details: treadmill frequency: daily ROS ROS ED Constitutional Constitutional ED: Denies chills or fever(s) Eyes Eyes: Denies discharge from eye(s) ENT ENT ED: Denies discharge from eye(s), rhinorrhea or sore throat Cardiovascular Cardiovascular: Denies chest pain or palpitations Respiratory/Chest Respiratory/Chest: Reports dyspnea; Denies cough Gastrointestinal Gastrointestinal: Reports other Details: Abdominal distention ; Denies abdominal pain, diarrhea, nausea or vomiting Genitourinary Genitourinary ED: Denies dysuria Musculoskeletal Musculoskeletal: Denies back pain or extremity pain Integumentary Denies Abrasions or rash Neurologic Neurologic: Denies headache(s) or weakness Psychiatric Psychiatric: Denies anxiety or depression Allergic/Immunologic Allergic/Immunologic ED: Denies lip swelling or urticaria EXAM Physical Exam Const Vital Signs: 08/25/23 12:57 08/25/23 13:44 08/25/23 13:45 Temperature 96.5 F L 98.1 F Temperature Source Temporal Oral Pulse Rate 70 66 Respiratory Rate 20 H 19 H Respiratory Effort Respiratory Depth Respiratory Pattern Blood Pressure 140/62 H Blood Pressure Mean 88 Pulse Ox 93 Oxygen Delivery Method Room Air Room Air Nasal Cannula Oxygen Flow Rate (L/min) 2 2 08/25/23 13:55 Temperature Temperature Source Pulse Rate Respiratory Rate Respiratory Effort Short of Breath Labored Respiratory Depth Normal Respiratory Pattern Tachypnea Blood Pressure Blood Pressure Mean Pulse Ox Oxygen Delivery Method Nasal Cannula Oxygen Flow Rate (L/min) 2 Positive well nourished and well developed General Appearance ED: well developed HEENT Reports moist mucous membranes Eyes EOMs intact bilaterally Chest Wall inspection of chest normal and palpation of chest normal Resp normal respiratory effort Resp Narrative: Diminished breath sounds bilateral bases. Cardio regular rate and regular rhythm GI GI Narrative: Abdomen distended with no focal tenderness. Extremity Extremity Narrative: 3+ bilateral lower extremity edema. Neuro oriented x3 Neuro Narrative: No focal neurologic deficit. Skin no rashes or lesions noted MDM MDM MDM Narrative Medical decision making narrative: Patient placed on documentation designer. IV line initiated. Labwork obtained to evaluate for leukocytosis, anemia, and electrolyte derangement. EKG obtained to evaluate for cardiac arrhythmia/ischemia. Chest x-ray obtained to evaluate for acute lung pathology, cardiac size, or mediastinal abnormality. Swab for COVID and influenza obtained. Lab Data Labs: Laboratory Results - last 24 hr 08/25/23 08/25/23 13:25 13:54 WBC 19.1 H RBC 3.96 L Hgb 11.9 L Hct 36.6 L MCV 92.4 MCH 30.1 MCHC 32.5 RDW Std Deviation 47.8 H RDW Coeff of Kiersten 14.1 Plt Count 240 MPV 11.4 Immature Gran % (Auto) 0.900 Neut % (Auto) 86.1 H Lymph % (Auto) 4.4 L [place] % (Auto) 7.4 Eos % (Auto) 0.8 Baso % (Auto) 0.4 Absolute Neuts (auto) 16.4 H Absolute Lymphs (auto) 0.83 Nucleated RBC % 0 PT 37.4 H INR 3.7 Sodium 137 Potassium 3.3 L Chloride 106 Carbon Dioxide 25.0 Anion Gap 6 BUN 48 H Creatinine 2.03 H Estim Creat Clear Calc 25.25 Est GFR (MDRD) Af Amer 41 L Est GFR (MDRD) Non-Af 34 L BUN/Creatinine Ratio 23.6 H Glucose 221 H Calcium 8.6 Troponin I High Sens 106 H B-Natriuretic Peptide 372.3 H Radiography Chest X-Ray - ED: 1 View, Read by ED Physician, Chronic Changes, Cardiomegaly and CHF EKG Initial EKG: Attestation: I personally reviewed and interpreted this EKG as follows: Interpretation: Atrial Fibrillation (Atrial fibrillation with a ventricular rate of 70 bpm. Left bundle branch block.) Treatment and Re-Evaluation :: CBC was a white count of 19,000 with 86% neutrophils. Patient states he is not currently on any steroids. He has not had fever. Hemoglobin is 11.9. Chemistry studies reveal a BUN of 40 and creatinine 2.03, consistent with his baseline. Troponin is slightly elevated at 106, however this again is consistent with the prior values he has had. His BNP today is 372. This is slightly increased compared to his prior values. Portable chest x-ray per my interpretation reveals significant cardiomegaly with some fluid overload. Radiology interpretation reviewed and agrees. His COVID and influenza tests are negative. At this time patient is on 2 L nasal cannula. Nursing staff placed this secondary to increased work of breathing with any movement or exertion. I will give him 40 mg of IV Lasix and speak with hospitalist regarding admission. Discharge Plan Dx/Rx/DC Orders Clinical Impression: CHF exacerbation, Leukocytosis Disposition Disposition: Acute Care [facility]
[2023-08-25 13:56] LABS: Anion Gap 6 (5-15); BUN 48 mg/dL (7-18); BUN/Creat Ratio 23.6 RATIO (10-20); Calcium,Total 8.6 mg/dL (8.5-10.1); Chloride 106 mmol/L (98-107); Creatinine, Serum 2.03 mg/dL (0.70-1.30); EST Glomerular Filtration Rate 34 mL/min (>60); Est Glom Filt Rate - Afr Amer 41 mL/min (>60); Estimated Creatinine Clearance 25.25 ml/min; Glucose 221 mg/dL (74-106); Potassium 3.3 mmol/L (3.5-5.1); Sodium Level 137 mmol/L (136-145); Troponin-I HS 106 pg/mL (3.0-78.0)
[2023-08-25 14:21] LABS: BNP,B-Type NATRIURETIC PEPTIDE 372.3 pg/mL (0-100)
[2023-08-25 14:28] LABS: International Normalized Ratio 3.7; Prothrombin Time (Protime)PT. 37.4 SECONDS (11.7-14.9)
[2023-08-25] MEDS: Furosemide 40 MG/4 ML Vial IV ×2 (16:11→18:29)
--- NOTE | 2023-08-25 16:19 | HP.PCM.HOS_ITS ---
HPI - General General Date of Admission: 08/25/23 Date of Service: 08/25/23 Chief Complaint: Heart failure exacerbation HPI Narrative ANTWAN GE, is a 78 M who presented to [facility] ED on 08/25/2023 with worsening volume overload and shortness of breath on exertion concerning for heart failure exacerbation. Patient seen at bedside in the ED, present. Patient was sitting comfortably at the edge of the bed, conv ersing normally, in no acute distress. Patient was pleasant and very talkative, no conversational dyspnea noted. Patient was recently hospitalized from 08/07 to 08/08 for same concern. Patient states he was given a few doses of IV diuretics but then feels like he was discharged from the hospital prematurely at that time. States that he has been taking his home Lasix 40 mg twice daily as prescribed since then, but has noticed about a 10 pound weight gain with worsening lower extremity edema, increasing abdominal distention and worsening shortness of breath on exertion. Patient follows with [facility] for cardiology, last office visit with Dr. Turk was on 08/04/2023. Patient notably has an implantable CardioMEMS device for measuring his pulmonary artery pressure. Was noted at that office visit that his 30-day CardioMEMS report showed PA diastolic pressure ranging from 15 to 22 mmHg, with goal of 60 mmHg. Plan at that time was to remain on Lasix [address] Turk noted that he was coordinating the diuretic dosage with nephrology given the patient's chronic kidney disease and that his PA diastolic was ranging from 19 to 22 mmHg on 07/31 through 08/04. Cardiology notably did not see the patient during his brief hospitalization shortly after that, and there is no record in the chart of any communication from cardiology office since that hospitalization. Patient does note that he called the cardiology office earlier today to ask for his recent PA pressure readings, and states that the nurse at the cardiology office told him to come to the ED due to high pressures. Patient currently is satting in the low to mid 90s on 2 L nasal cannula at rest, no increased work of breathing noted. He denies any chest pain or shortness of breath at rest. He does report mild abdominal discomfort with a feeling of fullness. Reports fairly minimal appetite over the past several days due to his abdominal fullness. He denies any lightheadedness or dizziness. Denies any other acute concerns at this time. FORMERLY [facility], [facility] Medical History Abnormal ankle brachial index (LOKI) Anemia due to stage 3b chronic kidney disease Back pain BPH (benign prostatic hyperplasia) Cardiology follow-up encounter CHF NYHA class III Chronic combined systolic and diastolic CHF (congestive heart failure) Chronic kidney disease, stage 3b Claudication Constipation CPAP (continuous positive airway pressure) dependence Diabetes Diarrhea Dietary restriction Elevated troponin (01/2021) Essential (primary) hypertension Gout Heartburn History of echocardiogram History of edema History of irregular heartbeat History of non-ST elevation myocardial infarction (NSTEMI) (07/25/21) History of pain when walking History of steroid therapy History of tobacco use HLD (hyperlipidemia) Hypertension Hypertrophic cardiomyopathy Hypokalemia Joint pain Lactic acidosis Left bundle branch block Leg cramps Leukocytosis Longstanding persistent atrial fibrillation Night sweats 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 Obesity (BMI 30.0-34.9) KIMBERLY (obstructive sleep apnea) Poor appetite Presence of implantable pulmonary artery pressure and heart rate monitoring system (03/25/21) Renal infarct Restless legs Secondary pulmonary arterial hypertension Shortness of breath on exertion Wears glasses Home Medications finasteride 5 mg tablet 5 mg PO DAILY prostate 12/19/20 [History Last Taken 12/22/20] glimepiride 1 mg tablet 1 mg PO DAILY diabetes 02/13/21 [History Last Taken Unknown] warfarin 2.5 mg tablet 2.5 mg PO MOFR blood thinner 03/11/21 [History Last Taken 05/31/22] cyanocobalamin (vitamin B-12) 1,000 mcg tablet (Vitamin B-12) 1,000 mcg PO DAILY 06/26/22 [History Last Taken Unknown] cholecalciferol (vitamin D3) 25 mcg (1,000 unit) capsule 25 mcg PO DAILY 08/01/22 [History Last Taken Unknown] metolazone 2.5 mg tablet 2.5 mg PO .PRN 08/01/22 [History Last Taken Unknown] carvedilol 6.25 mg tablet 6.25 mg PO BID #60 tabs 05/13/23 [Rx Last Taken Unknown] furosemide 40 mg tablet (Lasix) 40 mg PO BID #180 tabs 05/20/23 [Rx Last Taken Unknown] amlodipine 5 mg tablet 5 mg PO DAILY #90 tabs 07/07/23 [Rx Last Taken Unknown] dapagliflozin propanediol 10 mg tablet (Farxiga) 10 mg PO DAILY #90 tabs 08/04/23 [Rx Last Taken Unknown] lisinopril 20 mg tablet 20 mg PO DAILY 08/07/23 [History Last Taken Unknown] Allergy/AdvReac Type Severity Reaction Status Date / Time rivaroxaban [From Xarelto] Allergy Bleeding Verified 08/25/23 12:56 metoprolol AdvReac bradycardia Verified 08/25/23 12:56 Family History Father Heart disease Sister Heart disease Brother Heart disease Other Arthritis CVA (cerebral vascular accident) Depression Mental disorder Surgical History History of appendectomy History of cataract extraction History of left heart catheterization (02/19/21) History of transurethral resection of prostate (01/2019) History of ventricular septal myectomy (2000) Hx of umbilical hernia repair Social History Smoking Status: Former smoker how long ago did patient quit smokin years ago 0.25ppd second hand exposure: Yes alcohol intake: never caffeine: Yes Type: coffee Number of servings: 1 what type of physical activity do you participate in: other details: treadmill frequency: daily ROS Constitutional Constitutional: Reports malaise; Denies chills, fatigue, fever(s) or weakness Eyes Eyes: Denies change in vision Cardiovascular Cardiovascular: Reports dyspnea on exertion, edema and orthopnea; Denies chest pain, lightheadedness, palpitations or rapid heart rate Respiratory/Chest Respiratory/Chest: Denies cough, shortness of breath at rest or wheezing Gastrointestinal Gastrointestinal: Reports nausea; Denies abdominal pain, constipation, diarrhea or vomiting Genitourinary Genitourinary: Denies dysuria Musculoskeletal Musculoskeletal: Denies arthralgias or back pain Neurologic Neurologic: Denies dizziness, focal weakness or headache(s) Vital Signs Vital Signs Vital Signs: 08/25/23 12:57 08/25/23 13:44 08/25/23 13:45 Temperature 96.5 F L 98.1 F Temperature Source Temporal Oral Pulse Rate 70 66 Respiratory Rate 20 H 19 H Respiratory Effort Respiratory Depth Respiratory Pattern Blood Pressure 140/62 H Blood Pressure Mean 88 Pulse Ox 93 Oxygen Delivery Method Room Air Room Air Nasal Cannula Oxygen Flow Rate (L/min) 2 2 08/25/23 13:55 08/25/23 16:00 08/25/23 16:01 Temperature Temperature Source Pulse Rate 70 Respiratory Rate 21 H 21 H Respiratory Effort Short of Breath Labored Respiratory Depth Normal Respiratory Pattern Tachypnea Blood Pressure 158/70 H Blood Pressure Mean 99 Pulse Ox 94 94 Oxygen Delivery Method Nasal Cannula Nasal Cannula Nasal Cannula Oxygen Flow Rate (L/min) 2 2 2 08/25/23 16:02 08/25/23 16:04 Temperature 98.2 F 98.2 F Temperature Source Oral Pulse Rate 67 65 Respiratory Rate 21 H 20 H Respiratory Effort Respiratory Depth Respiratory Pattern Blood Pressure 158/70 H 158/70 H Blood Pressure Mean 99 99 Pulse Ox 94 93 Oxygen Delivery Method Nasal Cannula Oxygen Flow Rate (L/min) 2 Weight Weight: 89 kg Body Mass Index (BMI) 32.6 Physical Exam Const alert, oriented x3 and no apparent distress Constitutional Narrative: Pleasant, very talkative elderly male, obese, sitting comfortably in bed, conversing normally, no acute distress. General Appearance: cooperative and comfortable HEENT normocephalic, head/scalp atraumatic, hearing grossly normal bilaterally, nasal mucous membranes and turbinates normal and moist oral mucous membranes Eyes PERRL, EOMs intact bilaterally and conjunctivae normal Neck full ROM, no lymphadenopathy and supple Lymph Lymphatic: no lymphadenopathy noted Chest inspection of chest normal Resp Resp Narrative: Mildly decreased breath sounds throughout bilaterally. No wheezing or crackles noted. Satting in low to mid 90s on 2 L nasal cannula at rest, no increased work of breathing noted. Cardio regular rate, regular rhythm, no murmurs and peripheral pulses 2+ throughout GI GI Narrative: Abdomen moderately distended and somewhat tense on palpation. Nontender to palpation. Back/Spine normal ROM Extremity normal to inspection Extremity Narrative: +3-4 bilateral lower extremity pitting edema up to the knee noted. Skin no rashes or lesions noted Neuro moves all extremities and no focal motor deficits Speech: speech normal Psych mental status grossly normal Results Lab / Micro Data 08/25/23 13:25 08/25/23 13:25 Labs: Laboratory Results - last 24 hr 08/25/23 13:25: WBC 19.1 H, RBC 3.96 L, Hgb 11.9 L, Hct 36.6 L, MCV 92.4, MCH 30.1, MCHC 32.5, RDW Std Deviation 47.8 H, RDW Coeff of Kiersten 14.1, Plt Count 240, MPV 11.4, Immature Gran % (Auto) 0.900, Neut % (Auto) 86.1 H, Lymph % (Auto) 4.4 L, [place] % (Auto) 7.4, Eos % (Auto) 0.8, Baso % (Auto) 0.4, Absolute Neuts (auto) 16.4 H, Absolute Lymphs (auto) 0.83, Nucleated RBC % 0, PT 37.4 H, INR 3.7, Sodium 137, Potassium 3.3 L, Chloride 106, Carbon Dioxide 25.0, Anion Gap 6, BUN 48 H, Creatinine 2.03 H, Estim Creat Clear Calc 25.25, Est GFR (MDRD) Af Amer 41 L, Est GFR (MDRD) Non-Af 34 L, BUN/Creatinine Ratio 23.6 H, Glucose 221 H, Calcium 8.6, Troponin I High Sens 106 H 08/25/23 13:54: B-Natriuretic Peptide 372.3 H Micro: Microbiology 08/25/23 14:05 Nasal Secretion SARS-CoV-2 & FLU Antigen (Rapid) - Final Assessment & Plan Assessment/Plan (1) CHF exacerbation: PLAN: Plan Patient is an 78-year-old male who presented to [facility] ED on 08/25/2023 with concern for heart failure exacerbation. 1. Heart failure exacerbation, history of chronic combined systolic and diastolic heart failure, presence of implantable pulmonary artery pressure and heart rate monitoring system Seems most likely secondary to under diuresis with home Lasix dosing. BNP 372 on admit. Chest x-ray shows bilateral pulmonary edema, mildly worse than previous recent chest x-ray. Follows with outpatient cardiology, has CardioMEMS device in place to measure PA pressures, was placed back in 2020. ? Admit under inpatient status to PCU. Cardiology consulted. Start IV Lasix 40 mg twice daily for now. Monitor daily BMP and urine output. Continue home Coreg. Holding home dapagliflozin. 2. Leukocytosis WBC count 19 K on admit. May be secondary to acute stress state. Low concern for active infection as patient is afebrile, hemodynamically stable, no recent infectious symptoms. ? Follow-up a.m. BMP. 3. Persistent A-fib on Coumadin, supratherapeutic INR ? INR 3.7 on admit, goal INR 2-3. Will hold home warfarin dose tomorrow and recheck INR, with plan to resume home dosing on 08/27. 4. Hypokalemia ? Potassium 3.3 on admit. Magnesium 2.1. Replete potassium as needed, especially given IV diuresis as noted above. 5. Type 2 diabetes mellitus with hyperglycemia ? BG 221 on admit. Most recent A1c of 6.2% on 07/07/2023. Home regimen of glimepiride 1 mg daily, dapagliflozin 10 mg daily. Sliding scale insulin while inpatient. Chronic medical conditions: ? Obesity: BMI 31 on admit. Encouraged lifestyle modifications. Complicates hospital course, care and prognosis. ? CKD stage IIIb: Creatinine 2.03, BUN 48. Baseline creatinine around 2.0-2.5. Monitor daily BMP with IV diuresis as noted above. ? History of hypertrophic cardiomyopathy s/p postseptal myomectomy in 2000 ? BPH: Continue home finasteride. ? Chronic normocytic anemia: Hemoglobin 11.9 on admit, baseline hemoglobin 10- 12. Stable. ? Hypertension: Continue home amlodipine, holding home lisinopril for now, resume as needed. DVT prophylaxis: Holding home warfarin as noted above CODE STATUS: DNR CCA, DO NOT INTUBATE. Confirmed with patient and on admission. Expected disposition: Home, 2 to 3 days Total clinical time spent by myself addressing the patient's medical issues, reviewing all the data, and collaborating with patient's care team: 55 minutes. Charges/Coding Visit Charges Inpatient E&M: 51407 Init Hosp L2
--- NOTE | 2023-08-25 16:30 | NURSING ---
PCU OBS MOSTELLER CHF
--- NOTE | 2023-08-25 17:09 | CASEMGMT ---
Social Work LW/POA both scanned into [facility], Jackie Osman is listed as healthcare POA. CARLOS A Deng
[2023-08-25] MEDS: 0.9% Saline Lock 10 ML Syringe IV (18:29)
[2023-08-25 21:12] LABS: Magnesium 2.1 mg/dL (1.6-2.6)
[2023-08-25] MEDS: Carvedilol 6.25 MG Tablet PO (21:34)
[2023-08-25] MEDS: Insulin Lispro 100 UNIT/ML INSULN.PEN SC (21:35)
[2023-08-25 22:04] LABS: Bedside Glucose 202 mg/dL (74-106)
[2023-08-25 22:31] LABS: AST(SGOT) 31 U/L (15-37); Alanine Aminotransfer ALT/SGPT 63 U/L (16-61); Alkaline Phosphatase 119 U/L (45-117); Bilirubin, Direct 0.31 mg/dL (0.00-0.30); Globulin 4.4 g/dL (2.2-4.2); Protein, Total 7.4 g/dL (6.4-8.2)
[2023-08-26 02:54] LABS: Bacteria 0 SEEN /hpf (None Seen); Mucous, Urine 0 SEEN /hpf (<or=2+); Red Blood Cells-Urine 0 SEEN /hpf (0-5); Squamous Epithelial Cells - UA 0 SEEN /hpf (0-5); White Blood Cells 0 SEEN /hpf (0-5)
[2023-08-26 02:58] LABS: Color, Urine Yellow (Yellow); Glucose, Dipstick Normal (Normal); Ketone-Dipstick Negative (Negative); Leukocyte Esterase-Dipstick Negative /ul (Negative); Nitrite-Dipstick Negative (Negative); Occult Blood-Urine Negative /ul (Negative); Protein-Dipstick Negative (Negative); Urine Bilirubin Dipstick Negative (Negative); Urine Clarity Clear (Clear); Urine Urobilinogen Normal (Normal)
[2023-08-26 03:30] VITALS: BP 116/57; PULSE 66; RESP 16; TEMP 36.7; O2SAT 99
[2023-08-26 03:45] VITALS: BP 116/57; PULSE 66; RESP 16; TEMP 36.7; O2SAT 99
[2023-08-26 05:29] VITALS: BMI 31.7
[2023-08-26 05:59] LABS: Hemoglobin 10.5 g/dL (13.0-16.5); Mean Corp Hgb Conc 31.8 g/dL (32-36); Mean Corpuscular Hgb 29.7 pg (27.0-32.0); Mean Corpuscular Volume 93.2 fL (80-94); Mean Platelet Vol. 11.1 fl (6.2-12.0); Platelet Count 231 K/mm3 (150-450); RBC Distribution Width CV 13.9 % (11.6-14.6); RBC Distribution Width SD 47.5 fl (35.1-43.9); Red Blood Count 3.54 M/mm3 (4.6-6.2); White Blood Count 12.7 K/mm3 (4.4-11.0)
[2023-08-26 06:23] LABS: Anion Gap 9 (5-15); BUN 45 mg/dL (7-18); BUN/Creat Ratio 23.8 RATIO (10-20); Calcium,Total 8.5 mg/dL (8.5-10.1); Chloride 108 mmol/L (98-107); Creatinine, Serum 1.89 mg/dL (0.70-1.30); EST Glomerular Filtration Rate 37 mL/min (>60); Est Glom Filt Rate - Afr Amer 44 mL/min (>60); Estimated Creatinine Clearance 27.12 ml/min; Glucose 96 mg/dL (74-106); Potassium 3.3 mmol/L (3.5-5.1); Sodium Level 142 mmol/L (136-145)
[2023-08-26 06:26] LABS: Prothrombin Time (Protime)PT. 41.5 SECONDS (11.7-14.9)
[2023-08-26 06:33] LABS: International Normalized Ratio 4.2
[2023-08-26 06:58] LABS: Bedside Glucose 104 mg/dL (74-106)
[2023-08-26 09:21] VITALS: BP 145/76; PULSE 76; RESP 18; TEMP 36.6; O2SAT 94
[2023-08-26] MEDS: amLODIPine 5 MG Tablet PO (09:26)
[2023-08-26] MEDS: Carvedilol 6.25 MG Tablet PO ×2 (09:26→16:48)
[2023-08-26] MEDS: Finasteride 5 MG Tablet PO (09:26)
[2023-08-26] MEDS: Lisinopril 20 MG Tablet PO (09:26)
[2023-08-26] MEDS: 0.9% Saline Lock 10 ML Syringe IV (09:27)
[2023-08-26] MEDS: Furosemide 40 MG/4 ML Vial IV ×2 (09:27→21:39)
--- NOTE | 2023-08-26 09:28 | PN.HOSP_ITS ---
Reason for Visit Reason for Visit: Shortness of breath Subjective Subjective Patient is an 78-year-old white male who presented to the emergency department on 08/25/2023 at [facility] with worsening volume overload and shortness of breath. Patient had a recent hospitalization from 08/07/2023 through 08/08/2023 for the same concern and he reported he was given a few doses of IV diuretics but felt like he was discharged from the hospital prematurely at that time. Patient reported he had been taking his Lasix at home 40 mg IV twice daily since then but had noted a 10 pound weight gain and worsening lower extremity swelling, abdominal distention and worsening shortness of breath with exertion. Patient follows with the heart group and sees Dr. Turk. His last office visit was on 08/04/2023. Patient does have an implantable CardioMEMS de vice and it was noted that his 30-day cardioMems report showed a PA diastolic pressure ranging from 15 to 22 mmHg with a goal of 60 mmHg. At that time the plan was to remain on Lasix [address] Turk noted that he was coordinating diuretic dosage with nephrology given the history of CKD. The patient did report that he called the charge out clerk office early on the to ask for recent PA pressure readings and they informed him his PA pressure readings were elevated and they told him to come to the emergency department. Vital signs on presentation showed a temperature of 96.5, heart rate 70, respiratory rate was 20, blood pressure is 140/62 and oxygen saturations were 93% on room air. He had no signs of infection. His hemoglobin was 11.9 and his chemistry revealed a BUN of 40 and serum creatinine of 2.03 which was consistent with his baseline. His troponin was slightly elevated 106 but this is equitable with recent troponin values that he has had drawn. BNP was elevated compared to previous at 372. Chest x-ray showed cardiomegaly with some volume overload. CO VID and influenza test were negative. Patient was placed on nasal cannula 2 L and was given IV Lasix in the emergency department for increased work of breathing. He was admitted to PCU with a cardiology consultation given his history and started on IV Lasix 40 mg twice daily. He was noted to have a leukocytosis with a white count of 19,000 however it was felt to be related to acute stress and no signs of infection were found on presentation. Patient states he is overall feeling better. He does note that he is gained about 10 kg and he does weigh himself daily. He states he watches his salt intake but does not watch his fluid intake regularly. He had been on Lasix 40 mg twice daily and had been compliant with this. I discussed metolazone with him and he indicated he was not familiar with this medication. It looks like he has it is at home the case and that he is to take as needed fluid retention and but he confirmed that he was not taking it as needed. Patient stated that he d id take his increased dose of Lasix per discussion with the cardiology office however he indicated that he did not feel like his oral Lasix was helping. Objective Data Objective Data Vital Signs: Vital Signs Temp Pulse Resp BP Pulse Ox O2 Del Method O2 Flow Rate 98 F 76 18 145/76 H 94 Room Air 2 08/26/23 09:21 08/26/23 09:21 08/26/23 09:21 08/26/23 09:21 08/26/23 09:21 08/26/23 09:21 08/26/23 03:45 Oxygen Flow Rate (L/min) 2 Oxygen Delivery Method Room Air Weight: 86.6 kg Body Mass Index (BMI) 31.7 Intake & Output: Intake and Output for Last 24 Hours 08/24/23 08/25/23 08/26/23 23:59 23:59 23:59 Intake Total 200 / 200 Balance 200 / 200 Lab / Micro Data 08/26/23 05:45 08/26/23 05:45 Labs: Laboratory Results - last 24 hr 08/25/23 13:25: WBC 19.1 H, RBC 3.96 L, Hgb 11.9 L, Hct 36.6 L, MCV 92.4, MCH 30.1, MCHC 32.5, RDW Std Deviation 47.8 H, RDW Coeff of Kiersten 14.1, Plt Count 240, MPV 11.4, Immature Gran % (Auto) 0.900, Neut % (Auto) 86.1 H, Lymph % (Auto) 4.4 L, [place] % (Auto) 7.4, Eos % (Auto) 0.8, Baso % (Auto) 0.4, Absolute Neuts (auto) 16.4 H, Absolute Lymphs (auto) 0.83, Nucleated RBC % 0, PT 37.4 H, INR 3.7, Sodium 137, Potassium 3.3 L, Chloride 106, Carbon Dioxide 25.0, Anion Gap 6, BUN 48 H, Creatinine 2.03 H, Estim Creat Clear Calc 25.25, Est GFR (MDRD) Af Amer 41 L, Est GFR (MDRD) Non-Af 34 L, BUN/Creatinine Ratio 23.6 H, Glucose 221 H, Calcium 8.6, Troponin I High Sens 106 H 08/25/23 13:26: Magnesium 2.1 08/25/23 13:54: B-Natriuretic Peptide 372.3 H 08/25/23 21:33: POC Glucose 202 H 08/25/23 22:10: Total Bilirubin 0.80, Direct Bilirubin 0.31 H, AST 31, ALT 63 H, Alkaline Phosphatase 119 H, Total Protein 7.4, Albumin 3.0 L, Globulin 4.4 H 08/26/23 02:45: Urine Color Yellow, Urine Clarity Clear, Urine pH 6.0, Ur Specific [place] 1.020, Urine Protein Negative, Urine Glucose (UA) Normal, Urine Ketones Negative, Urine Occult Blood Negative, Urine Nitrite Negative, Urine Bilirubin Negative, Urine Urobilinogen Normal, Ur Leukocyte Esterase Negative, Urine RBC 0 SEEN, Urine WBC 0 SEEN, Ur Squamous Epith Cells 0 SEEN, Urine Bacteria 0 SEEN, Urine Mucus 0 SEEN 08/26/23 05:45: WBC 12.7 H, RBC 3.54 L, Hgb 10.5 L, Hct 33.0 L, MCV 93.2, MCH 29.7, MCHC 31.8 L, RDW Std Deviation 47.5 H, RDW Coeff of Kiersten 13.9, Plt Count 231, MPV 11.1, PT 41.5 H, INR 4.2 H*, Sodium 142, Potassium 3.3 L, Chloride 108 H, Carbon Dioxide 25.0, Anion Gap 9, BUN 45 H, Creatinine 1.89 H, Estim Creat Clear Calc 27.12, Est GFR (MDRD) Af Amer 44 L, Est GFR (MDRD) Non-Af 37 L, BUN/Creatinine Ratio 23.8 H, Glucose 96, Calcium 8.5 08/26/23 06:38: POC Glucose 104 Micro: Microbiology 08/25/23 14:05 Nasal Secretion SARS-CoV-2 & FLU Antigen (Rapid) - Final Radiography Diagnostic Testing: Radiology Impression Chest X-Ray 08/25/23 13:42 IMPRESSION: Interval development of findings most compatible with mild interstitial edema/congestive failure and follow-up chest imaging to resolution is recommended. Electronically Signed: Pancho Conner MD at 13:58 EST Reading Location ID and State: [address] [place] [address] , Service support , Physical Exam Const alert, oriented x3, no apparent distress and well nourished Constitutional Narrative: Obese, older, white male, lying in bed on CPAP however is awake and sits up on the edge of the bed independently, currently appears comfortable and nontoxic HEENT head/scalp atraumatic HEENT Narrative: Mallampati is 3, no thrush Head and Scalp: normocephalic Resp normal respiratory effort, no retractions, no use of accessory muscles and No clear to auscultation bilaterally Resp Narrative: Crackles at bases bilaterally with no signs of respiratory distress Auscultation: crackles; Negative for rhonchi or wheezes Cardio regular rate, S1 normal heart sound, S2 normal heart sound, no murmurs, no rub, no gallops and no clicks Cardio Narrative: Rhythm is irregular irregular with normal rate GI normal to inspection, nondistended, normoactive bowel sounds, soft to palpation and non-tender Extremity no clubbing, cyanosis or edema Extremity Narrative: 2-3+doughy, bilateral lower extremity pitting edema Neuro oriented x3, moves all extremities and no focal motor deficits Speech: speech normal Psych affect normal Psych Narrative: Eye contact is good, patient is very pleasant Assessment & Plan Assessment/Plan (1) CHF exacerbation: (2) Leukocytosis: (3) Supratherapeutic INR: (4) Hypokalemia: PLAN: Plan Acute exacerbation of combined systolic and diastolic heart failure -Patient has shown improvement in his EF from 45% to 53% on most recent echocardiogram done on 03/05/2023 -This echo also shows concentric LVH but no wall motion abnormalities, moderate eccentric mitral valve insufficiency -Baseline home Lasix dose is 40 mg oral twice daily -Patient does have CardioMEMS device--> PA pressures were reportedly elevated per discussion with patient in cardiology office prior to presenting to the emergency department -Will repeat echocardiogram given 2 hospitalizations for heart failure within the last several weeks -Continue IV Lasix 40 mg IV push but increase to 3 times daily -Fluid restriction -Sodium restriction -Daily weights -Cardiology consultation is pending given history of CardioMEMS -Patient stayed he weighs himself daily and does watch his sodium intake at home however does not closely watch his fluid restriction -Is not familiar with his metolazone so I suspect he is not using this as needed for his weight gain Leukocytosis -Flu and COVID rapid are negative -Check respiratory viral panel -Check strep pneumo and Legionella antigens -Overall suspicion is low for infection white count has trended down to 12.7 without any antimicrobial intervention -Continue to monitor Anemia-chronic -Normocytic -Appears to be stable -Suspect related to chronic renal disease Supratherapeutic INR -INR is 3.7 on presentation and 4.2 done today -Goal is between 2 and 3 -Hold Coumadin -Repeat INR in a.m. Hypokalemia -60 mill equivalents p.o. potassium with ongoing diuretics -Check a.m. magnesium level -Repeat BMP in a.m. Persistent atrial fibrillation -Hold Coumadin due to supratherapeutic INR -Continue home carvedilol DM-2 -Hemoglobin A1c on 07/07/2023 was 6.2 -Hold home oral agents -SSI -Cardiac/carb controlled diet -Accu-Cheks as ordered CKD stage IIIb -Baseline serum creatinine appears to run between 2.0 and 2.5 -Monitor closely with diuretics -Follows as an outpatient with nephrology Chronic normocytic anemia secondary to CKD -Hemoglobin stable -Continue to monitor Hypertension -Continue home amlodipine -Continue home fall -Continue home lisinopril -Lasix as above BPH -Continue home finasteride History of KIMBERLY -Compliance with CPAP is unclear--> will verify and order -If not compliant this may be complicating his heart failure Obesity -BMI 31.8 -Recommend weight loss -Complicates treatment, prognosis, outcomes DVT prophylaxis -Patient is fully anticoagulated -Repeat INR in a.m. CODE STATUS -DNR CCA with no intubation as verified on admission Charges/Coding Visit Charges Inpatient E&M: 37980 [facility] Hosp L3
--- NOTE | 2023-08-26 09:41 | ECHOCS_ITS ---
Reason For Study: CHF Procedure This was a 2D Doppler, Color Flow transthoracic echocardiogram. Contrast injection was performed. Exam performed portable in patient room. Left Ventricle Normal LV size. Moderate concentric left ventricular hypertrophy. The estimated ejection fraction is 50-55 %. Left ventricular systolic function is normal. Stage 3 diastolic dysfunction. Basal inferoseptum and basal anteroseptum is akinetic. Right Ventricle The right ventricle is not well visualized. Normal systolic function. Atria The left atrium is moderately enlarged. The right atrium is mildly enlarged. Mitral Valve Mild mitral annular calcification. Mild-Moderate (1-2+) mitral valve insufficiency. Tricuspid Valve Normal tricuspid valve. Mild to moderate (1-2+) tricuspid valve insufficiency. Moderate pulmonary hypertension. Aortic Valve Moderate diffuse aortic valve thickening. There is no aortic stenosis. Aortic valve is sclerotic. Mild (1+) aortic valve insufficiency. Pulmonic Valve The pulmonic valve is not well visualized. Trivial pulmonic valve insufficiency. Great Vessels Calcified aortic root. Normal sized aortic root. Pericardium/Pleural No pericardial effusion. Medication Diluted definity 2ml given slow IV push to enhance endocardial definition. MMode/2D Measurements & Calculations LVIDd: 4.5 cm IVSd: 1.2 cm LVOT diam: 2.0 cm LVIDs: 3.8 cm LVPWd: 1.2 cm RVDd: 5.1 cm FS: 14.7 % LVOT area: 3.3 cm2 Ao root diam: 2.9 cm LAV(MOD-bp): 117.0 ml LVAd ap4: 29.3 cm2 LAV(MOD-bp) Indexed: 60.4 ml/m2 LVLd ap4: 7.1 cm LAV(MOD-sp2): 84.9 ml EDV(MOD-sp4): 101.8 ml LAV(MOD-sp4): 124.0 ml EDV(sp4-el): 102.4 ml LVAs ap4: 21.0 cm2 LVLs ap4: 6.1 cm ESV(MOD-sp4): 62.4 ml ESV(sp4-el): 61.7 ml EF(MOD-sp4): 38.7 % EF(sp4-el): 39.7 % SV(MOD-sp4): 39.4 ml SV(sp4-el): 40.6 ml LA A4 area: 34.5 cm2 LA dimension(2D): 5.2 cm RA A4 area: 24.4 cm2 TAPSE: 1.1 cm Time Measurements MV dec time: 0.15 sec Doppler Measurements & Calculations MV E max babar: 115.1 cm/sec Lat Peak E' Babar: 8.7 cm/sec Med Peak E' Babar: 4.0 cm/sec MV A max babar: 40.5 cm/sec E/E' lat: 13.3 E/E' med: 28.5 MV E/A: 2.8 MV dec slope: 744.5 cm/sec2 Ao V2 max: 222.4 cm/sec LV V1 max: 162.7 cm/sec Ao max P.8 mmHg LV V1 max P.6 mmHg Ao V2 mean: 141.9 cm/sec LV V1 mean P.1 mmHg Ao mean P.6 mmHg LV V1 mean: 128.6 cm/sec Ao V2 VTI: 42.8 cm LV V1 VTI: 33.2 cm AV (velocity ratio): 0.78 LUCHO(I,D): 2.6 cm2 LUCHO(V,D): 2.4 cm2 SV(LVOT): 109.5 ml PA V2 max: 95.4 cm/sec TR max babar: 372.4 cm/sec TR max P.5 mmHg ECHO/Echo Complete W/ Contrast Interpretation Summary The left atrium is moderately enlarged. The right atrium is mildly enlarged. Mild-Moderate (1-2+) mitral valve insufficiency. There is no aortic stenosis. Moderate pulmonary hypertension. Aortic valve is sclerotic. Stage 3 diastolic dysfunction. The estimated ejection fraction is 50-55 %. Left ventricular systolic function is normal. Ordering Physician: Jolene Valentine Referring Physician: Howard Escobar Performed By: Angi Addison, KWAKUCS, RVT
[2023-08-26] MEDS: Potassium Chloride Oral Tablet 20 MEQ 60 MEQ PO (10:00)
[2023-08-26] MEDS: Insulin Lispro 100 UNIT/ML INSULN.PEN SC (11:44)
[2023-08-26 12:14] LABS: Bedside Glucose 176 mg/dL (74-106)
--- NOTE | 2023-08-26 13:15 | CASEMGMT ---
RN?CM?SUPERINTENDENT ELECTRIC POWER?CM?to room to meet with patient for initial transition planning/care coordination?assessment.?RN?CM?introduced self and role at [facility].? Pt voices understanding and consents to?assessment?at this time.? Pt sitting on edge of bed in no distress at this time.? Pt is A/O at this time and answers all questions appropriately.?? Care providers, pharmacy, and demographics verified/updated at this time. PCP: Dr Escobar Specialists:Dr Turk-cardiology Preferred Pharmacy: [facility] Retail @ discharge Insurance: Pau FLORES Prescription Benefit:?yes Living Will/HPOA:?Pt has LW and HCPOA on file @ [facility]. Pt states that he thinks his son is POA. Pt made aware that the POA that is on file @ [facility] has Jackie listed as primary POA. Pt states that was his last who has . (He is re-) He was made aware Janell is listed as 1st alternative and Ileana is listed as 2nd alternative. . Pt states both Janell and Ileana are both step-dtrs. He states he may want to do new HCPOA, but he is not sure yet. He wishes to talk w/his son, Everardo, about this first. He was made aware to ask for SW if he decides he would like to complete new HCPOA while in the hospital and also made aware this can be done w/SW as an OP. He voices understanding. LNOK: , Radha. Pt states his only biological adult child is his son, Everardo. He states he has 3 step-kids. 2 step-dtr's are Janell and Ileana. Living Arrangements: Lives w/his , Radha, in condo w/a basement and 1 step to enter. Pt states he doesn't do too bad on the steps to the basement and he takes them one step at a time . He states he is indepedent w/ADL's and manages his own medications. and pt get groceries together and share home mgnt tasks. Transportation:?Pt states drives self and states no transportation concerns at this time.? also drives. DME: ?States has the following DME:?shower chair, grab bars, walker, CPAP from [facility], pulse ox, functioning glucometer w/supplies. Pt does not have home O2. He is currently on RA. ? Pt states no need for further DME at this time.? HHC/SNF: No hx of either. Pt wishes to discharge home. He declines needing.wanting HHC, CCN, or Pt Link. Pt wishes to return home and states has no concerns with going home at time of discharge.? CM?to follow for home oxygen needs and any further discharge planning/needs.? Pt voices no further concerns/needs at this time.? Advised pt to ask for?CM?if any further questions/concerns/needs arise.? Voices understanding. PLAN:??Home Meghan BSN?RN?CM
[2023-08-26 15:00] VITALS: BP 120/70; PULSE 62; RESP 18; TEMP 36.6; O2SAT 98
[2023-08-26 17:16] LABS: Bedside Glucose 119 mg/dL (74-106)
--- OUTSIDE RECORDS SUMMARY | 2023-08-26 20:21 | XMS RPT_ITS | CCD ---
Author Name Unknown Address [address] [place] [address] Organization [facility] Care Team Providers Care Clerk Cashier Name Role Phone VALERIANO STONER, DR HOWARD Villela Primary Care Physician Erika BAL MD, DR HOWARD Villela Attending Katina BAL MD, DR HOWARD Villela Primary Care Katina BAL MD, DR HOWARD Villela Attending Katina BAL MD, DR HOWARD Villela Primary Care Katina BAL MD, DR HOWARD Villela Attending Katina BAL MD, DR HOWARD Villela Primary Care Katina leslie Problems Problem Classification Problem Date Documented Da te Episodic/Chronic Cardiac dysrhythmias (2 sources) Paroxysmal atrial fibrillation; Translations: [Paroxysmal atrial fibrillation] Chronic Results Test Name Value Interpretation Reference Range Facil ity Encounters Encounter Date Encounter Type Care Provider Facility Start: 04-20-[address] HOWARD Petersen cility:B Start: 02-04-2023 End: 02-05-[address] HOWARD BAL MD Facility:B Start: 02-04-2023 End: 02-04-[address] HOWARD BAL MD [facility] Start: 04-29-[address] HOWARD BAL MD Fa cility:B Start: 04-29-2022 End: 05-03-2022 Lab-Standing Order DR HOWARD [facility] Payers Date Payer Category Payer Medicare [id number] 2021 Unknown [id number] 1945 Unknown [id number] 1945 Unknown [id number] 1945 Unknown [id number] Progress note 11-01-2020 Note Date & Type Note Facility 11-01-2020 Note HNO ID: [id number] Author: Dakota Alfaro Service: ? Author Type: Physician Type: Progress Notes Filed: 11/01/2020 2:50 PM Note Text: Subjective: Patient is status post an upper and lower endoscopy. Completed at the [facility] in [place]. Biopsy of his duodenum was negative. Stomach biopsy did not show any signs of H. pylori. Random colon biopsies were negative for microscopic colitis and only showed some melanosis coli. Patient states that his stools are soft no joselito diarrhea.Blood pressure 162/74, pulse (!) 50, temperature 36.6 ?C (97.8 ?F), temperature source Temporal, resp. rate 15, weight 87.1 kg (192 lb), SpO2 96 %. Objective: Abdomen is soft and nontender small reducible ventral hernias palpated. Assessment:Diarrhea, unspecified type (primary encounter diagnosis) Lower abdominal pain Ventral hernia without obstruction or gangrene Plan: At this point the patient is not interested in getting his hernia repaired. He is going to see me back in July to see if it is larger at that point he will get it rescheduled. [facility] Progress note 10-22-2020 Note Date & Type Note Facility 10-22-2020 Note HNO ID: [id number] Author: Dakota Alfaro Service: ? Author Type: Physician Type: Progress Notes Filed: 10/22/2020 12:51 PM Note Text: HISTORY AND PHYSICAL ? Dakota Osman 1945 ? ? REFERRING PHYSICIAN: MD Shashi ? CHIEF COMPLAINT: Consult ? HPI: The patient is a 75 year old male with a complaint of Lower abdominal pain. Patient states that over the last year he has been having significant change in his bowel habits he is having far more looser stools over the last month he has been at complaining of lower abdominal discomfort diarrhea he has not noticed any blood. Patient has also had some anorexia. ? Patient is also complaining of a bulge above his umbilical area. In 2019 I have performed an umbilical hernia repair on him which was quite small this hernia is located above it in the ventral area slightly to the right. He states that it easily reduces. ? Patient has not had any imaging studies for evaluation of his abdominal pain. ? I have performed colonoscopies on him as well as an upper endoscopy on him but this was done in 2017 he was noted to have a polyp in his rectum at that time.. Patient is still having problems with nausea and diarrhea. He is also noting loss in the caliber of his stool. He has not noticed any blood. ? The patient is being seen by me today at the request of Howard Bal MD for my opinion and advice regarding Diarrhea, unspecified type (primary encounter diagnosis) Lower abdominal pain Ventral hernia without obstruction or gangrene. ? PAST MEDICAL HISTORY PAST MEDICAL HISTORY Diagnosis Date - A-fib (HCC) ? - BPH (benign prostatic hyperplasia) ? - Cardiomyopathy, hypertrophic obstructive (HCC) ? - Essential hypertension ? - Hyperlipemia ? - HYPERTR OBSTR CARDIOMYOP 06/16/2007 - KIMBERLY (obstructive sleep apnea) ? 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 ? ? PAST SURGICAL HISTORY PAST SURGICAL HISTORY Procedure Laterality Date - APPENDECTOMY ? ? - REPAIR UMBILICAL ARMEN,5+Y/O,REDUC ? ? - [facility] [facility] ? ? - TRANSURETHRAL ELEC-SURG PROSTATECTOM ? CURRENT MEDICATIONS Current Outpatient Medications Medication Sig - finasteride (PROSCAR) 5 mg tablet Take 5 mg by mouth once daily. - warfarin (COUMADIN) 5 mg tablet 5 mg on Mon, Wed, Fri 2.5 mg on Thu, , Thu, Sun - glimepiride (AMARYL) 1 mg tablet Take 1 mg by mouth daily with breakfast. 1/2 tablet daily - doxazosin (CARDURA) 4 mg tablet Take 1 tablet by mouth daily at bedtime. (Patient taking differently: Take 2 mg by mouth daily at bedtime. ) - hydroCHLOROthiazide (HYDRODIURIL, ESIDRIX) 25 mg tablet Take 25 mg by mouth once daily. - CYANOCOBALAMIN, VITAMIN B-12, (B-12 COMPLIANCE INJECTION) by INJECTION(UNSPECIFIED PARENTERAL ROUTES) route once every month. - iv contrast (will be provided with radiology test) CT Chest ABD/PEL-Inject, intravenously, once for 1 dose.No IV access, insert saline lock prior to the beginning of sedation, infusion, injection of imaging exam. Discontinue saline lock post exam. If Pt. has a central line or IVAD, may access for administration according to line specific nursing protocol. Once exam is complete flush line and de-access according to line specific nursing protocol in the CT contrast administration guidelines link. - enteric contrast (will be provided with radiology test) For CT CHESTABD/PEL W IVCON Routine order Administer, As Directed One Time Only, via Oral, Rectal, both Oral and Rectal, Enteric Tube, Stoma or Indwelling Catheter, Enteric Contrast as designated per enteric contrast guidelines - rivaroxaban (XARELTO) 20 mg tablet TAKE ONE TABLET BY MOUTH ONCE DAILY WITH DINNER (Patient not taking: Reported on 10/18/2020 ) - metoprolol succinate ER (TOPROL XL) 100 mg Tb24 Take 0.5 tablets by mouth once daily. (Patient not taking: Reported on 10/18/2020 ) - PYRIDOXINE HCL (VITAMIN B-6 ORAL) Take by mouth. - metFORMIN (GLUCOPHAGE) 500 mg tablet Take 1 tablet by mouth twice daily with meals. (Patient not taking: Reported on 10/18/2020 ) - metFORMIN (GLUCOPHAGE) 1,000 mg tablet Take 1,000 mg by mouth once daily. - aspirin, enteric coated (ASPIRIN, ENTERIC COATED) 81 mg EC tablet Take 81 mg by mouth once daily. - ubidecarenone Q-10 (CO Q-10) 50 mg capsule Take 1 capsule by mouth once daily. - sildenafil (VIAGRA) 50 mg ORAL tablet Take 1 tablet by mouth as needed. TAKE 30-60 MINUTES BEFORE SEXUAL INTERCOURSE NEEDED. (Patient not taking: Reported on 10/18/2020 ) ? No current facility-administered medications for this visit. ? ? ALLERGIES: Nkda [Other] and No Latex Allergy [Other] ? PERSONAL HISTORY: SOCIAL HISTORY Social History ? Tobacco Use - Smoking status: Never Smoker - Smokeless tobacco: Never Used Substance Use Topics - Alcohol use: No - Drug use: No ? FAMILY HISTORY: FAMILY HI (more content not included)... [facility] Progress note 10-18-2020 Note Date & Type Note Facility 10-18-2020 Note HNO ID: [id number] Author: Patrick Olivier (Tech) Service: ? Author Type: Damage Adjuster Type: Progress Notes Filed: 10/18/2020 2:08 PM Note Text: Radiology Service Progress Note DATE OF SERVICE: October 18, 2020 TIME: 2:07 PM PATIENT IDENTITY VERIFICATION COMPLETED USING TWO (2) STANDARD IDENTIFIERS: Name and Date of confirmed by patient verbally. FALL SCREENING: Has the patient had 2 falls in the last year or 1 fall with injury or currently using an Ambulatory Assistive Device (Walker, Cane, Wheelchair, Crutches, etc.)? No PATIENT GENDER DATA: Male PATIENT RELEVANT IMPLANT DATA REVIEWED: Yes ALLERGIES: Reviewed and unchanged CONTRAST ALLERGY: NO. EXAM: CT -CONTRAST INDUCED NEPHROPATHY RISK FACTORS: Patient age > 60 years CREATININE: Creatinine Date Value Ref Range Status 10/18/2020 1.38 (H) 0.73 - 1.22 mg/dL Final 10/28/2012 0.82 0.70 - 1.40 mg/dL Final 03/06/2006 0.9 0.7 - 1.4 mg/dL Final eGFR-All Other Races Date Value Ref Range Status 10/18/2020 50 . Final Comment: eGFR (Estimated GFR) Units of measure: mL/min/1.73 meters squared eGFR is derived from the reexpressed MDRD Study equation using the following parameters: serum creatinine, age, gender and race. The creatinine assay has been calibrated to be traceable to IDMS. An eGFR <60 mL/min/1.73m2 for >3 months is consistent with chronic kidney disease. Refer to KDOQI guidelines for clinical interpretation. In patients with unstable renal function, e.g. those with acute kidney injury, the eGFR may not accurately reflect actual GFR. eGFR- Date Value Ref Range Status 10/18/2020 >60 Final P.O.C.T. RESULTS: POC done: Yes, See Lab Tab October 18, 2020 TREATMENT: N/A PERIPHERAL IV DATA: Ambulatory: A peripheral IV was started in the Left antecubital site with a Angio cath: 22 gauge. RADIOLOGY DEPARTMENT: CT; Exam(s) Completed: Abdomen/Pelvis SIGNATURE: Patrick Riley PATIENT NAME: Dakota Osman DATE: October 18, 2020 TIME: 2:07 PM [facility] Progress note 10-18-2020 Note Date & Type Note Facility 10-18-2020 Note HNO ID: [id number] Author: Dakota Mir Alfaro Service: ? Author Type: Physician Type: Progress Notes Filed: 10/18/2020 10:05 AM Note Text: HISTORY AND PHYSICAL Dakota Osman 1945 REFERRING PHYSICIAN: MD Shashi CHIEF COMPLAINT: Consult HPI: The patient is a 75 year old male with a complaint of Lower abdominal pain. Patient states that over the last year he has been having significant change in his bowel habits he is having far more looser stools over the last month he has been at complaining of lower abdominal discomfort diarrhea he has not noticed any blood. Patient has also had some anorexia. Patient is also complaining of a bulge above his umbilical area. In 2019 I have performed an umbilical hernia repair on him which was quite small this hernia is located above it in the ventral area slightly to the right. He states that it easily reduces. Patient has not had any imaging studies for evaluation of his abdominal pain. I have performed colonoscopies on him as well as an upper endoscopy on him but this was done in 2017 he was noted to have a polyp in his rectum at that time.. The patient is being seen by me today at the request of Howard Bal MD for my opinion and advice regarding Diarrhea, unspecified type (primary encounter diagnosis) Lower abdominal pain Ventral hernia without obstruction or gangrene. PAST MEDICAL HISTORY Diagnosis Date - A-fib (HCC) - BPH (benign prostatic hyperplasia) - Cardiomyopathy, hypertrophic obstructive (HCC) - Essential hypertension - Hyperlipemia - HYPERTR OBSTR CARDIOMYOP 06/16/2007 - KIMBERLY (obstructive sleep apnea) - Renal infarct (HCC) right - Secondary pulmonary arterial hypertension (HCC) PAST SURGICAL HISTORY Procedure Laterality Date - APPENDECTOMY - REPAIR UMBILICAL ARMEN,5+Y/O,REDUC - [facility] [place] [facility] - TRANSURETHRAL ELEC-SURG PROSTATECTOM Current Outpatient Medications Medication Sig - finasteride (PROSCAR) 5 mg tablet Take 5 mg by mouth once daily. - warfarin (COUMADIN) 5 mg tablet 5 mg on Mon, Wed, Fri 2.5 mg on Thu, , Thu, Sun - glimepiride (AMARYL) 1 mg tablet Take 1 mg by mouth daily with breakfast. 1/2 tablet daily - doxazosin (CARDURA) 4 mg tablet Take 1 tablet by mouth daily at bedtime. (Patient taking differently: Take 2 mg by mouth daily at bedtime. ) - hydroCHLOROthiazide (HYDRODIURIL, ESIDRIX) 25 mg tablet Take 25 mg by mouth once daily. - CYANOCOBALAMIN, VITAMIN B-12, (B-12 COMPLIANCE INJECTION) by INJECTION(UNSPECIFIED PARENTERAL ROUTES) route once every month. - iv contrast (will be provided with radiology test) CT Chest ABD/PEL-Inject, intravenously, once for 1 dose.No IV access, insert saline lock prior to the beginning of sedation, infusion, injection of imaging exam. Discontinue saline lock post exam. If Pt. has a central line or IVAD, may access for administration according to line specific nursing protocol. Once exam is complete flush line and de-access according to line specific nursing protocol in the CT contrast administration guidelines link. - enteric contrast (will be provided with radiology test) For CT CHESTABD/PEL W IVCON Routine order Administer, As Directed One Time Only, via Oral, Rectal, both Oral and Rectal, Enteric Tube, Stoma or Indwelling Catheter, Enteric Contrast as designated per enteric contrast guidelines - rivaroxaban (XARELTO) 20 mg tablet TAKE ONE TABLET BY MOUTH ONCE DAILY WITH DINNER (Patient not taking: Reported on 10/18/2020 ) - metoprolol succinate ER (TOPROL XL) 100 mg Tb24 Take 0.5 tablets by mouth once daily. (Patient not taking: Reported on 10/18/2020 ) - PYRIDOXINE HCL (VITAMIN B-6 ORAL) Take by mouth. - metFORMIN (GLUCOPHAGE) 500 mg tablet Take 1 tablet by mouth twice daily with meals. (Patient not taking: Reported on 10/18/2020 ) - metFORMIN (GLUCOPHAGE) 1,000 mg tablet Take 1,000 mg by mouth once daily. - aspirin, enteric coated (ASPIRIN, ENTERIC COATED) 81 mg EC tablet Take 81 mg by mouth once daily. - ubidecarenone Q-10 (CO Q-10) 50 mg capsule Take 1 capsule by mouth once daily. - sildenafil (VIAGRA) 50 mg ORAL tablet Take 1 tablet by mouth as needed. TAKE 30-60 MINUTES BEFORE SEXUAL INTERCOURSE NEEDED. (Patient not taking: Reported on 10/18/2020 ) No current facility-administered medications for this visit. ALLERGIES: Nkda [Other] and No Latex Allergy [Other] PERSONAL HISTORY: Social History Tobacco Use - Smoking status: Never Smoker - Smokeless tobacco: Never Used Substance Use Topics - Alcohol use: No - Drug use: No FAMILY HISTORY: FAMILY HISTORY Problem Relation Age of Onset - Heart disease Father - Heart disease Sister - Heart disease Brother REVIEW OF SYMPTOMS: The review of systems data was entered by the nurse and reviewed by mi Nursing Notes: Rozina Cifuentes RN 10/18/2020 9:13 AM Signed REVIEW OF SYSTEMS: General: The patient denies fatigue, notes weight loss, (more content not included)... [facility] Evaluation + Plan note Note Date & Type Note Facility Evaluation + Plan note No data available for this section [facility] Hospital Discharge instructions Note Date & Type Note Facility Hospital Discharge instructions No data available for this section [facility] Progress note Note Date & Type Note Facility Progress note No data available for this section [facility] Summary Purpose Family History No Family History Records FoundNo Family History Records Found Advance Directives No Advanced Directives Records FoundNo Advanced Directives Records Found Additional Source Comments (unrecognized sect ion and content) No Status Records FoundNo Status Records Found INFORMATION SOURCE (unrecogn ized section and content) DATE CREATED AUTHOR AUTHOR'S ORGANIZ ATION 04/27/2023 [facility] ([place]) Care Team (unrecognized sect ion and content) Care Team Personnel Name: HOWARD BAL MD Member Role: Primary Care Physician Address: Address: [place] [id number] [place] [address] Patient Care team informatio n (unrecognized section and content) Care Team Personnel Name: HOWARD BAL MD Member Role: Primary Care Physician Address: Address: [place] [id number] FOR RECORDS PERTAINING TO PATIENTS WHO ARE OR HAVE BEEN ENROLLED IN A CHEMICAL DEPENDENCY/SUBSTANCEABUSE PROGRAM, SOME INFORMATION MAY BE OMITTED. This clinical summary was aggregated from multiple sources. Caution should be exercised in using it in the provision of clinical care. This summary normalizes information from multiple sources, and as a consequence, information in this document may materially change the coding, format and clinical context of patient data. In addition, data may be omitted in some cases. CLINICAL DECISIONS SHOULD BE BASED ON THE PRIMARY CLINICAL RECORDS. [facility]. provides no warranty or guarantee of the accuracy or completeness of information in this document.
[2023-08-26 21:00] VITALS: BP 107/79; PULSE 79; RESP 17; TEMP 36.9; O2SAT 95
[2023-08-26] MEDS: MELATONIN 3 MG TABLET PO (21:38)
[2023-08-26 22:01] LABS: Bedside Glucose 145 mg/dL (74-106)
--- NOTE | 2023-08-26 22:10 | US_ITS ---
EXAM: US ABDOMEN COMPLETE CLINICAL INDICATION: Assess for hepatic pathology, ascites TECHNIQUE: Real-time ultrasound of the abdomen with image documentation. COMPARISON: No relevant prior studies available. FINDINGS: LIVER: Normal. There is normal echotexture. No focal hepatic lesion. No intrahepatic biliary ductal dilation. GALLBLADDER: Multiple stones noted within the gallbladder. No gallbladder wall thickening is demonstrated. No pericholecystic fluid. Negative sonographic Pascual''s sign. COMMON BILE DUCT: Unremarkable as visualized. The proximal common bile duct is normal size. PANCREAS: Pancreas is obscured by overlying bowel gas. KIDNEYS: Cortical thinning of both kidneys noted more prominent on the right than left. No shadowing calculus. No focal lesion or perinephric collection is demonstrated. SPLEEN: Normal. The spleen is normal in size and homogeneous in echotexture. AORTA: Aorta not well seen due to overlying bowel gas. INFERIOR VENA CAVA: The IVC is patent. FREE FLUID: There is no free fluid within the abdominal cavity. PLEURAL SPACE: Small right pleural effusion. US/Abdomen Complete IMPRESSION: Cholelithiasis. No evidence of ascites. Small right pleural effusion. Electronically Signed: Omar Hamilton MD at 9:49 EST ,
[2023-08-27] VITALS (8 sets, daily range): BP systolic 97–129; BP diastolic 61–87; PULSE 56–98; RESP 15–18; TEMP 36.2–36.8; O2SAT 91–97; BMI 31.4
[2023-08-27 04:28] LABS: Absolute Lymphocyte Count 1.54 X10^3/uL (0.83-4.51); Absolute Neutrophil Count 9.2 X10^3/uL (2.0-7.7); Basophil% 0.8 % (0-1); Eosinophils% 1.6 % (0-5); Hematocrit 33.8 % (40-54); Hemoglobin 10.5 g/dL (13.0-16.5); Lymphocyte # 1.54 X10^3/ul (0.83-4.51); Lymphocyte % 12.3 % (19-41); Mean Corp Hgb Conc 31.1 g/dL (32-36); Mean Corpuscular Hgb 29.2 pg (27.0-32.0); Mean Corpuscular Volume 93.9 fL (80-94); Monocyte# 1.28 X10^3/uL; Monocyte% 10.2 % (0-10); NRBC Flagged by Analyzer 0 % (0-5); Neutrophil # 9.23 X10^3/uL (2.7-7.7); Neutrophil % 73.7 % (47-70); Platelet Count 256 K/mm3 (150-450); RBC Distribution Width SD 48.2 fl (35.1-43.9); White Blood Count 12.5 K/mm3 (4.4-11.0)
[2023-08-27 04:45] LABS: Anion Gap 9 (5-15); BUN 50 mg/dL (7-18); BUN/Creat Ratio 24.4 RATIO (10-20); Calcium,Total 8.6 mg/dL (8.5-10.1); Chloride 107 mmol/L (98-107); Creatinine, Serum 2.05 mg/dL (0.70-1.30); EST Glomerular Filtration Rate 33 mL/min (>60); Est Glom Filt Rate - Afr Amer 40 mL/min (>60); Glucose 110 mg/dL (74-106); Magnesium 2.2 mg/dL (1.6-2.6); Potassium 3.9 mmol/L (3.5-5.1); Sodium Level 140 mmol/L (136-145)
[2023-08-27 04:49] LABS: Prothrombin Time (Protime)PT. 31.7 SECONDS (11.7-14.9)
[2023-08-27] MEDS: Furosemide 40 MG/4 ML Vial IV (06:19)
[2023-08-27 06:45] LABS: Bedside Glucose 113 mg/dL (74-106)
[2023-08-27] MEDS: Furosemide 100 MG/10 ML Vial 80 MG IV ×2 (10:27→17:00)
[2023-08-27] MEDS: Finasteride 5 MG Tablet PO (10:28)
[2023-08-27] MEDS: amLODIPine 5 MG Tablet PO (10:28)
[2023-08-27] MEDS: Carvedilol 6.25 MG Tablet PO ×2 (10:28→17:00)
[2023-08-27] MEDS: Lisinopril 20 MG Tablet PO (10:28)
[2023-08-27] MEDS: 0.9% Saline Lock 10 ML Syringe IV (10:28)
[2023-08-27 11:33] LABS: Bedside Glucose 148 mg/dL (74-106)
--- NOTE | 2023-08-27 12:51 | CON.PCM.CA_ITS ---
Assessment & Plan Assessment/Plan (1) CHF exacerbation: QUALIFIERS: Heart failure type: combined systolic and diastolic Qualified Code(s): I50.43 - Acute on chronic combined systolic (congestive) and diastolic (congestive) heart failure PLAN: Plan 1. Acute decompensated diastolic heart failure. 2. CKD. 3. Slight elevated troponin due to above 4. persistent atrial fibrillation 5. left bundle branch block. #6 status post CardioMEMS Plan Agree to continue with Lasix 80 mg IV twice daily for now. Will consider switching to Bumex 2 mg p.o. twice daily in a.m. Continue to follow kidney function. Continue to replace electrolytes as per protocol. Elevated troponins are likely related to acute decompensated heart failure and CKD. Continue home dose Coreg Hold lisinopril for now Continue amlodipine Recommend consulting nephrology for management of kidney failure Recent echocardiogram in February 2023 showed normal ejection fraction. We will continue to follow HPI Consult Data Date of Consult: 08/27/23 HPI Narrative Reason for Consultation: Congestive heart failure HPI Narrative: ANTWAN GE, is a 78 M who presents complaining of shortness of breath upon minimal exertion. An 78-year-old male patient with past medical history of diastolic heart failure status post CardioMEMS, hypertrophy cardiomyopathy status post septal myomectomy, CKD, obstructive sleep apnea, paroxysmal A-fib on Coumadin and diabetes who presented to the ED with a complaint of shortness of breath. Patient said he has been having shortness of breath upon minimal exertion for the last few weeks which has gotten worse lately, also worsening lower extremity edema, he said he also gained 10 pounds. He does have orthopnea however denied PND's. Denied any chest pain, denied palpitations, denied dizziness, denies syncope. EKG upon presentation showed atrial fibrillation with controlled rate and left bundle branch block. BNP was 372. Troponin was slightly elevated. Chest x-ray showed pulmonary vascular congestion consistent with pulmonary edema findings. [facility] Medical History (Updated 08/27/23 @ 13:[address] Sonia Khan MD) Abnormal ankle brachial index (LOKI) Anemia due to stage 3b chronic kidney disease Back pain BPH (benign prostatic hyperplasia) Cardiology follow-up encounter CHF NYHA class III Chronic combined systolic and diastolic CHF (congestive heart failure) Chronic kidney disease, stage 3b Claudication Constipation CPAP (continuous positive airway pressure) dependence Diabetes Diarrhea Dietary restriction Elevated troponin (01/2021) Essential (primary) hypertension Gout Heartburn History of echocardiogram History of edema History of irregular heartbeat History of non-ST elevation myocardial infarction (NSTEMI) (07/25/21) History of pain when walking History of steroid therapy History of tobacco use HLD (hyperlipidemia) Hypertension Hypertrophic cardiomyopathy Hypokalemia Joint pain Lactic acidosis Left bundle branch block Leg cramps Leukocytosis Longstanding persistent atrial fibrillation Night sweats 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 Obesity (BMI 30.0-34.9) KIMBERLY (obstructive sleep apnea) Poor appetite Presence of implantable pulmonary artery pressure and heart rate monitoring system (03/25/21) Renal infarct Restless legs Secondary pulmonary arterial hypertension Shortness of breath on exertion Wears glasses Home Medications finasteride 5 mg tablet 5 mg PO DAILY prostate 12/19/20 [History Last Taken 12/22/20] glimepiride 1 mg tablet 1 mg PO DAILY diabetes 02/13/21 [History Last Taken Unknown] warfarin 2.5 mg tablet 2.5 mg PO MOFR blood thinner 03/11/21 [History Last Taken 05/31/22] cyanocobalamin (vitamin B-12) 1,000 mcg tablet (Vitamin B-12) 1,000 mcg PO DAILY 06/26/22 [History Last Taken Unknown] cholecalciferol (vitamin D3) 25 mcg (1,000 unit) capsule 25 mcg PO DAILY 08/01/22 [History Last Taken Unknown] metolazone 2.5 mg tablet 2.5 mg PO .PRN 08/01/22 [History Last Taken Unknown] carvedilol 6.25 mg tablet 6.25 mg PO BID #60 tabs 05/13/23 [Rx Last Taken Unkn own] furosemide 40 mg tablet (Lasix) 40 mg PO BID #180 tabs 05/20/23 [Rx Last Taken Unknown] amlodipine 5 mg tablet 5 mg PO DAILY #90 tabs 07/07/23 [Rx Last Taken Unknown] dapagliflozin propanediol 10 mg tablet (Farxiga) 10 mg PO DAILY #90 tabs 08/04/23 [Rx Last Taken Unknown] lisinopril 20 mg tablet 20 mg PO DAILY 08/07/23 [History Last Taken Unknown] Allergy/AdvReac Type Severity Reaction Status Date / Time rivaroxaban [From Xarelto] Allergy Bleeding Verified 08/25/23 12:56 metoprolol AdvReac bradycardia Verified 08/25/23 12:56 Family History Father Heart disease Sister Heart disease Brother Heart disease Other Arthritis CVA (cerebral vascular accident) Depression Mental disorder Surgical History History of appendectomy History of cataract extraction History of left heart catheterization (02/19/21) History of transurethral resection of prostate (01/2019) History of ventricular septal myectomy (2000) Hx of umbilical hernia repair Social History Smoking Status: Former smoker how long ago did patient quit smokin years ago 0.25ppd second hand exposure: Yes alcohol intake: never caffeine: Yes Type: coffee Number of servings: 1 what type of physical activity do you participate in: other details: treadmill frequency: daily ROS ROS Narrative 12 point review of systems were obtained, negative other than what mentioned HPI. Physical Exam Const alert, oriented x3 and no apparent distress HEENT normocephalic and head/scalp atraumatic Eyes PERRL and EOMs intact bilaterally Neck No no JVD Chest inspection of chest normal and palpation of chest normal Resp normal respiratory effort Auscultation: crackles, rales and rhonchi; Negative for wheezes Cardio regular rate, S1 normal heart sound and S2 normal heart sound; Negative for regular rhythm GI normal to inspection, nondistended, normoactive bowel sounds and soft to palpation Extremity Negative for no pedal edema General Extremity: edema Psych mental status grossly normal and thought process normal Risk Stratification Risk Stratification Applicable: No Objective Data Vital Signs: Vital Signs Temp Pulse Resp BP Pulse Ox O2 Del Method O2 Flow Rate 98.3 F 74 16 102/61 94 Room Air 2 08/27/23 10:08 08/27/23 10:08 08/27/23 10:08 08/27/23 10:08 08/27/23 11:17 08/27/23 10:32 08/26/23 03:45 Oxygen Flow Rate (L/min) 2 Oxygen Delivery Method Room Air Weight: 189 lb 2.506 oz Body Mass Index (BMI) 31.4 Intake & Output: Intake and Output for Last 24 Hours 08/25/23 08/26/23 08/27/23 23:59 23:59 23:59 Intake Total 200 / 200 1320 / 1320 Balance 200 / 200 1320 / 1320 Lab / Micro Data 08/27/23 04:18 08/27/23 04:18 Labs: Laboratory Results - last 24 hr 08/26/23 16:47: POC Glucose 119 H 08/26/23 21:42: POC Glucose 145 H 08/27/23 04:18: WBC 12.5 H, RBC 3.60 L, Hgb 10.5 L, Hct 33.8 L, MCV 93.9, MCH 29.2, MCHC 31.1 L, RDW Std Deviation 48.2 H, RDW Coeff of Kiersten 14.0, Plt Count 256, MPV 11.0, Immature Gran % (Auto) 1.400 H, Neut % (Auto) 73.7 H, Lymph % (Auto) 12.3 L, [place] % (Auto) 10.2 H, Eos % (Auto) 1.6, Baso % (Auto) 0.8, Absolute Neuts (auto) 9.2 H, Absolute Lymphs (auto) 1.54, Nucleated RBC % 0, PT 31.7 H, INR 3.0, Sodium 140, Potassium 3.9, Chloride 107, Carbon Dioxide 24.0, Anion Gap 9, BUN 50 H, Creatinine 2.05 H, Estim Creat Clear Calc 25.00, Est GFR (MDRD) Af Amer 40 L, Est GFR (MDRD) Non-Af 33 L, BUN/Creatinine Ratio 24.4 H, Glucose 110 H, Calcium 8.6, Magnesium 2.2 08/27/23 06:23: POC Glucose 113 H 08/27/23 11:13: POC Glucose 148 H Micro: Microbiology 08/26/23 14:25 Mucosa - Nasopharyngeal Respiratory Panel (PCR) - Final 08/26/23 10:15 Urine, Clean Catch Legionella Antigen - Final 08/26/23 10:15 Urine, Clean Catch Streptococcus pneumoniae Antigen (M - Final Cardiology Labs/Tests 08/27/23 04:18: WBC 12.5 H, RBC 3.60 L, Hgb 10.5 L, Hct 33.8 L, MCV 93.9, MCH 29.2, MCHC 31.1 L, Plt Count 256, MPV 11.0, Immature Gran % (Auto) 1.400 H, Neut % (Auto) 73.7 H, Lymph % (Auto) 12.3 L, [place] % (Auto) 10.2 H, Eos % (Auto) 1.6, Baso % (Auto) 0.8, Absolute Neuts (auto) 9.2 H, Nucleated RBC % 0, PT 31.7 H, INR 3.0, Sodium 140, Potassium 3.9, Chloride 107, Carbon Dioxide 24.0, Anion Gap 9, BUN 50 H, Creatinine 2.05 H, Est GFR (MDRD) Af Amer 40 L, Est GFR (MDRD) Non- Af 33 L, BUN/Creatinine Ratio 24.4 H, Glucose 110 H, Calcium 8.6, Magnesium 2.2 Rhythm: EKG: ECHO: Stress Test: Cardiac Cath: PCI: CT Surgery: Holter monitor: EPS: PPM: CXR: Chest CT Scan:
--- NOTE | 2023-08-27 13:34 | PCM.PN.HOSP ---
Reason for Visit Reason for Visit: Shortness of breath Subjective Subjective Patient states his sleep is poor and he feels this is related to panic which he wakes up with in the melanite. He had been doing fine at home however he did report that previously his doctor had written for something to help him with this. He ran out of it and had been doing okay following. He is unsure what this was. He did receive melatonin last night with no improvement. States that he is about 70% overall better. Keeps telling me that his baseline weight was 185 pounds however when I asked him how long ago he weighed this much he was unclear and stated it had been a while. I am unsure what his recent weights have been however he indicates he has gained 10 pounds. Timeframe is not clear. He does wear compression hose however is not currently. He states the swelling was better this morning after they have been elevated overnight but worsening with gravity. We did discuss that this is quite typical. Output has not been documented I discussed this with nursing. Weight is down about 1.2 kg with stable renal function. Objective Data Objective Data Vital Signs: Vital Signs Temp Pulse Resp BP Pulse Ox O2 Del Method O2 Flow Rate 98.3 F 74 16 102/61 94 Room Air 2 08/27/23 10:08 08/27/23 10:08 08/27/23 10:08 08/27/23 10:08 08/27/23 11:17 08/27/23 10:32 08/26/23 03:45 Oxygen Flow Rate (L/min) 2 Oxygen Delivery Method Room Air Weight: 85.8 kg Body Mass Index (BMI) 31.4 Intake & Output: Intake and Output for Last 24 Hours 08/25/23 08/26/23 08/27/23 23:59 23:59 23:59 Intake Total 200 / 200 1320 / 1320 Balance 200 / 200 1320 / 1320 Lab / Micro Data 08/27/23 04:18 08/27/23 04:18 Labs: Laboratory Results - last 24 hr 08/26/23 16:47: POC Glucose 119 H 08/26/23 21:42: POC Glucose 145 H 08/27/23 04:18: WBC 12.5 H, RBC 3.60 L, Hgb 10.5 L, Hct 33.8 L, MCV 93.9, MCH 29.2, MCHC 31.1 L, RDW Std Deviation 48.2 H, RDW Coeff of Kiersten 14.0, Plt Count 256, MPV 11.0, Immature Gran % (Auto) 1.400 H, Neut % (Auto) 73.7 H, Lymph % (Auto) 12.3 L, [place] % (Auto) 10.2 H, Eos % (Auto) 1.6, Baso % (Auto) 0.8, Absolute Neuts (auto) 9.2 H, Absolute Lymphs (auto) 1.54, Nucleated RBC % 0, PT 31.7 H, INR 3.0, Sodium 140, Potassium 3.9, Chloride 107, Carbon Dioxide 24.0, Anion Gap 9, BUN 50 H, Creatinine 2.05 H, Estim Creat Clear Calc 25.00, Est GFR (MDRD) Af Amer 40 L, Est GFR (MDRD) Non-Af 33 L, BUN/Creatinine Ratio 24.4 H, Glucose 110 H, Calcium 8.6, Magnesium 2.2 08/27/23 06:23: POC Glucose 113 H 08/27/23 11:13: POC Glucose 148 H Micro: Microbiology 08/26/23 14:25 Mucosa - Nasopharyngeal Respiratory Panel (PCR) - Final 08/26/23 10:15 Urine, Clean Catch Legionella Antigen - Final 08/26/23 10:15 Urine, Clean Catch Streptococcus pneumoniae Antigen (M - Final 08/25/23 14:05 Nasal Secretion SARS-CoV-2 & FLU Antigen (Rapid) - Final Physical Exam Const alert, oriented x3, no apparent distress and well nourished Constitutional Narrative: Obese, older, white male, sitting up on the edge of the bed on room air, appears comfortable and nontoxic General Appearance: cooperative and comfortable HEENT normocephalic, head/scalp atraumatic and moist oral mucous membranes HEENT Narrative: Mild hearing loss, Mallampati is 3, no thrush Resp normal respiratory effort, no retractions, no use of accessory muscles and clear to auscultation bilaterally Auscultation: Negative for crackles, rhonchi or wheezes Cardio regular rate, S1 normal heart sound, S2 normal heart sound, no murmurs, no rub, no gallops and no clicks Cardio Narrative: Rhythm is irregular irregular with normal rate GI normal to inspection, nondistended, normoactive bowel sounds, soft to palpation and non-tender Extremity Extremity Narrative: 2-3+doughy, bilateral lower extremity pitting edema, no cyanosis or clubbing Neuro oriented x3, moves all extremities and no focal motor deficits Speech: speech normal Psych mental status grossly normal and affect normal Psych Narrative: Eye contact is good, patient is very pleasant Assessment & Plan Assessment/Plan (1) CHF exacerbation: QUALIFIERS: Heart failure type: combined systolic and diastolic Qualified Code(s): I50.43 - Acute on chronic combined systolic (congestive) and diastolic (congestive) heart failure (2) Leukocytosis: (3) Supratherapeutic INR: (4) Hypokalemia: PLAN: Plan Acute exacerbation of combined systolic and diastolic heart failure -Patient has shown improvement in his EF from 45% to 53% on most recent echocardiogram done on 03/05/2023 -This echo also shows concentric LVH but no wall motion abnormalities, moderate eccentric mitral valve insufficiency -Baseline home Lasix dose is 40 mg oral twice daily -Patient does have CardioMEMS device--> PA pressures were reportedly elevated per discussion with patient in cardiology office prior to presenting to the emergency department -Echo is pending read -Continue IV Lasix but increase to 80 mg IV twice daily -Fluid restriction -Sodium restriction -Daily weights -Cardiology following-appreciate input -Possible transition to oral Bumex tomorrow -Patient stayed he weighs himself daily and does watch his sodium intake at home however does not closely watch his fluid restriction -Is not familiar with his metolazone so I suspect he is not using this as needed for his weight gain Leukocytosis -Flu and COVID rapid are negative -Aleksandr viral panel is negative -Strep pneumo and Legionella antigens are negative -Count stable at 12.5 -Continue to monitor Anemia-chronic -Normocytic -Hemoglobin remained stable -Suspect related to chronic renal disease Supratherapeutic INR -INR is 3.0 today -Goal is between 2 and 3 -Will restart Coumadin at 2.5 mg dosing and see what INR is tomorrow -Typical dosing for him is 5 mg on Thursday and 2.5 mg on Thursday and Thursday -Repeat INR in a.m. Hypokalemia - resolved -Will trend Persistent atrial fibrillation -Restart Coumadin as noted above -Continue home carvedilol DM-2 -Hemoglobin A1c on 07/07/2023 was 6.2 -Hold home oral agents -SSI -Cardiac/carb controlled diet -Accu-Cheks as ordered CKD stage IIIb -Baseline serum creatinine appears to run between 2.0 and 2.5 -Given creatinine is stable we will hold off on any nephro consultation at this time -Monitor closely with diuretics -Follows as an outpatient with nephrology Chronic normocytic anemia secondary to CKD -Hemoglobin stable -Continue to monitor Hypertension -Continue home amlodipine -Continue home carvedilol -Continue home lisinopril -Lasix as above BPH -Continue home finasteride History of KIMBERLY -Continue CPAP -Patient is compliant at baseline Obesity -BMI 31.5 -Recommend weight loss -Complicates treatment, prognosis, outcomes DVT prophylaxis -Patient is fully anticoagulated -Repeat INR in a.m. CODE STATUS -DNR CCA with no intubation as verified on admission Charges/Coding Visit Charges Inpatient E&M: 01902 Subs Hosp L2
[2023-08-27] MEDS: Insulin Lispro 100 UNIT/ML INSULN.PEN SC (17:00)
[2023-08-27 17:30] LABS: Bedside Glucose 161 mg/dL (74-106)
[2023-08-27] MEDS: Acetaminophen 325 MG Tablet 650 MG PO (22:12)
[2023-08-27] MEDS: LORazepam 0.5 MG Tablet 0.25 MG PO (22:12)
[2023-08-27 23:14] LABS: Bedside Glucose 137 mg/dL (74-106)
[2023-08-28 04:00] VITALS: BP 102/59; PULSE 65; RESP 18; TEMP 36.6; O2SAT 94
[2023-08-28 05:00] VITALS: BP 102/59; PULSE 65; RESP 18; TEMP 36.4; O2SAT 94
[2023-08-28 05:48] VITALS: BMI 31.1
[2023-08-28 06:31] LABS: International Normalized Ratio 2.3; Prothrombin Time (Protime)PT. 25.4 SECONDS (11.7-14.9)
[2023-08-28 06:57] LABS: Bedside Glucose 114 mg/dL (74-106)
[2023-08-28 07:48] VITALS: O2SAT 96
[2023-08-28 08:01] LABS: Anion Gap 7 (5-15); BUN 63 mg/dL (7-18); BUN/Creat Ratio 27.9 RATIO (10-20); Chloride 105 mmol/L (98-107); Creatinine, Serum 2.26 mg/dL (0.70-1.30); EST Glomerular Filtration Rate 30 mL/min (>60); Est Glom Filt Rate - Afr Amer 36 mL/min (>60); Estimated Creatinine Clearance 22.68 ml/min; Glucose 118 mg/dL (74-106); Potassium 3.8 mmol/L (3.5-5.1); Sodium Level 137 mmol/L (136-145)
[2023-08-28 08:04] VITALS: BP 120/80; PULSE 64; RESP 16; TEMP 36.5; O2SAT 96
[2023-08-28] MEDS: Carvedilol 6.25 MG Tablet PO (08:06)
[2023-08-28] MEDS: Finasteride 5 MG Tablet PO (08:06)
[2023-08-28] MEDS: amLODIPine 5 MG Tablet PO (08:06)
[2023-08-28] MEDS: Lisinopril 20 MG Tablet PO (08:06)
[2023-08-28] MEDS: Furosemide 100 MG/10 ML Vial 80 MG IV (08:07)
[2023-08-28] MEDS: Insulin Lispro 100 UNIT/ML INSULN.PEN SC (10:59)
[2023-08-28 11:41] VITALS: O2SAT 93; O2SAT 96
[2023-08-28 11:45] LABS: Bedside Glucose 167 mg/dL (74-106)
--- NOTE | 2023-08-28 14:23 | PCM.DC.SUM ---
Providers Date of Admission: 08/25/23 Date of Discharge: 08/28/23 Primary Care Physician: Dr. Howard Escobar, Consultations 08/25/23 22:11 Consult: Cardiology Routine Consulting Provider: Sonia Khan Reason for Consult: CHF exacerbation, CardioMEMS device in place EMERGENT Consult: No MD Notified: Yes Date Notified: 08/26/23 Time Notified: 08:25 Method of Notification: Verbal Comments:: states will be in this afternoon Reason For Visit: CHF EXACERBATION Diagnosis Discharge Diagnosis (1) CHF exacerbation: Status: Chronic Code(s): I50.9 - Heart failure, unspecified Qualifiers: Heart failure type: combined systolic and diastolic Qualified Code(s): I50.43 - Acute on chronic combined systolic (congestive) and diastolic (congestive) heart failure (2) Leukocytosis: Status: Acute Code(s): D72.829 - Elevated white blood cell count, unspecified (3) Supratherapeutic INR: Status: Acute Code(s): R79.1 - Abnormal coagulation profile (4) Hypokalemia: Status: Acute Code(s): E87.6 - Hypokalemia Medications at Discharge Home Medications finasteride 5 mg tablet 5 mg PO DAILY prostate 12/19/20 glimepiride 1 mg tablet 1 mg PO DAILY diabetes 02/13/21 warfarin 2.5 mg tablet 2.5 mg PO MOFR blood thinner 03/11/21 cyanocobalamin (vitamin B-12) 1,000 mcg tablet (Vitamin B-12) 1,000 mcg PO DAILY 06/26/22 cholecalciferol (vitamin D3) 25 mcg (1,000 unit) capsule 25 mcg PO DAILY 08/01/22 carvedilol 6.25 mg tablet 6.25 mg PO BID #60 tabs 05/13/23 furosemide 40 mg tablet (Lasix) 40 mg PO BID #180 tabs 05/20/23 amlodipine 5 mg tablet 5 mg PO DAILY #90 tabs 07/07/23 dapagliflozin propanediol 10 mg tablet (Farxiga) 10 mg PO DAILY #90 tabs 08/04/23 lisinopril 20 mg tablet 20 mg PO DAILY 08/07/23 metolazone 2.5 mg tablet 2.5 mg PO .Thursday and #8 tabs 08/28/23 Hospital Course Procedures 2-D Echocardiogram, EKG and - (Chest x-ray/abdominal ultrasound) Summary of Care Provided Minutes Spent on Discharge: 42 Hospital Course: Mr. Osman is an 78-year-old white male who presented to the emergency department on 08/25/2023 at [facility] with worsening volume overload and shortness of breath. Patient had a recent hospitalization from 08/07/2023 through 08/08/2023 for the same concern and he reported he was given a few doses of IV diuretics but felt like he was discharged from the hospital prematurely at that time. Patient reported he had been taking his Lasix at home 40 mg IV twice daily since then but had noted a 10 pound weight gain and worsening lower extremity swelling, abdominal distention and worsening shortness of breath with exertion. Patient follows with the heart group and sees Dr. Turk. His last office visit was on 08/04/2023. Patient does have an implantable CardioMEMS device and it was noted that his 30-day cardioMems report showed a PA diastolic pressure ranging from 15 to 22 mmHg with a goal of 60 mmHg. At that time the plan was to remain on Lasix [address] Turk noted that he was coordinating diuretic dosage with nephrology given the history of CKD. The patient did report that he called the hospice fellow office early on the to ask for recent PA pressure readings and they informed him his PA pressure readings were elevated and they told him to come to the emergency department. Vital signs on presentation showed a temperature of 96.5, heart rate 70, respiratory rate was 20, blood pressure is 140/62 and oxygen saturations were 93% on room air. He had no signs of infection. His hemoglobin was 11.9 and his chemistry revealed a BUN of 40 and serum creatinine of 2.03 which was consistent with his baseline. His troponin was slightly elevated 106 but this is equitable with recent troponin values that he has had drawn. BNP was elevated compared to previous at 372. Chest x-ray showed cardiomegaly with some volume overload. COVID and influenza test were negative. Patient was placed on nasal cannula 2 L and was given IV Lasix in the emergency department for increased work of breathing. He was admitted to PCU with a cardiology consultation given his history and started on IV Lasix 40 mg twice daily. He was noted to have a leukocytosis with a white count of 19,000 however it was felt to be related to acute stress and no signs of infection were found on presentation. All infectious workup was unremarkable including a respiratory viral panel and strep pneumo Legionella antigens. His white count had normalized by the time of discharge. We did uptitrate his Lasix to 80 mg twice daily and by the time of discharge he was able to ambulate on room air without any supplemental oxygen and was stable on room air at rest as well. He continued to have some lower extremity swelling however it had improved. He does typically wear compression stockings and I did advise him to continue this after discharge. We discussed fluid and salt restriction. Patient did indicate he does not add salt to his diet but it sounds as if he does eat food from the store and we did discuss that this typically has high salt contact when it is preprepared. I also discussed fluid restriction with him to 2 L daily and he voiced understanding. We will continue his Lasix 40 mg p.o. twice daily. I have instructed him to weigh himself daily in the morning at the about the same time without close on and if he does increase his weight in a 24-hour period by 2 pounds he is to take an extra dose of Lasix. We also added metolazone 2.5 mg to be taken every Thursday and . The patient did have an echocardiogram during this hospital course since he did have 2 admissions in a short period of time. His EF was estimated to be 50 to 55% with severe diastolic dysfunction, aortic valve sclerosis with no stenosis, moderate pulmonary artery hypertension and moderate mitral valve insufficiency with biatrial enlargement. I suspect his heart failure will be difficult to treat due to his severe diastolic dysfunction and pulmonary hypertension. We did discuss the importance of ongoing treatment of his sleep apnea and he states he is compliant with his mask. If he has ongoing dyspnea with exertion and he is optimized per his CardioMEMS device he may need outpatient pulmonary medicine follow-up for PFTs and 6-minute walk test but I think we need to get his heart failure optimized first. I advised him to follow-up with his primary care physician within the next week and he states he already has a follow-up with Dr. Turk in the office next . Patient was able to be discharged home in stable condition on 08/28/2023. Patient is to have an INR done next Thursday as well. 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 KIMBERLY Obesity Physical Exam Const alert, oriented x3, no apparent distress, no limitations and well nourished Constitutional Narrative: Obese, older, white male, lying in bed on his mask however sits up easily and independently, removes his mask and has a conversation with me,, appears comfortable and nontoxic General Appearance: cooperative, comfortable, well kempt and well developed Orientation / Consciousness: awake, oriented to person, oriented to place and oriented to time Exam Limitations: no limitations Nutritional Appearance: obese HEENT normocephalic, head/scalp atraumatic, hearing grossly normal bilaterally and moist oral mucous membranes HEENT Narrative: Mallampati 3, no thrush, dentures in place Eyes PERRL and conjunctivae normal Eyes Narrative: No scleral icterus Neck no lymphadenopathy and supple Neck Narrative: Trachea midline Resp normal respiratory effort, no retractions, no use of accessory muscles and clear to auscultation bilaterally Auscultation: Negative for crackles, rhonchi or wheezes Cardio regular rate, S1 normal heart sound, S2 normal heart sound, no murmurs, no rub, no gallops and no clicks Cardio Narrative: Rhythm is irregular irregular with normal rate GI normal to inspection, nondistended, normoactive bowel sounds, soft to palpation and non-tender Extremity normal to inspection and no clubbing, cyanosis or edema Extremity Narrative: 1-2+doughy, bilateral lower extremity pitting edema, no cyanosis or clubbing Skin no rashes or lesions noted, no wounds, skin turgor normal and no jaundice Neuro oriented x3, CN's II-XII intact bilaterally, moves all extremities and no focal motor deficits Speech: speech normal Psych mental status grossly normal and affect normal Psych Narrative: Eye contact is good, patient is very pleasant Weight / BMI Weight Weight: 84.9 kg Body Mass Index (BMI) 31.1 ABG / Lab / Microbiology Data 08/27/23 04:18 08/28/23 06:01 Laboratory: Laboratory Results - last 24 hr 08/27/23 16:58: POC Glucose 161 H 08/27/23 22:14: POC Glucose 137 H 08/28/23 06:01: PT 25.4 H, INR 2.3, Sodium 137, Potassium 3.8, Chloride 105, Carbon Dioxide 25.0, Anion Gap 7, BUN 63 H, Creatinine 2.26 H, Estim Creat Clear Calc 22.68, Est GFR (MDRD) Af Amer 36 L, Est GFR (MDRD) Non-Af 30 L, BUN/Creatinine Ratio 27.9 H, Glucose 118 H, Calcium 9.0 08/28/23 06:37: POC Glucose 114 H 08/28/23 10:55: POC Glucose 167 H Microbiology: Microbiology 08/26/23 14:25 Mucosa - Nasopharyngeal Respiratory Panel (PCR) - Final 08/26/23 10:15 Urine, Clean Catch Legionella Antigen - Final 08/26/23 10:15 Urine, Clean Catch Streptococcus pneumoniae Antigen (M - Final 08/25/23 14:05 Nasal Secretion SARS-CoV-2 & FLU Antigen (Rapid) - Final Radiography Diagnostic Testing: Radiology Impression Echocardiogram 08/26/23 09:41 Interpretation Summary The left atrium is moderately enlarged. The right atrium is mildly enlarged. Mild-Moderate (1-2+) mitral valve insufficiency. There is no aortic stenosis. Moderate pulmonary hypertension. Aortic valve is sclerotic. Stage 3 diastolic dysfunction. The estimated ejection fraction is 50-55 %. Left ventricular systolic function is normal. Ordering Physician: Jolene Valentine Referring Physician: Howard Escobar Performed By: Angi Addison, AURE, RVT D/C Instructions Discharge Diet: Low fat / Low cholesterol (Restrict fluid intake to 2 L a day), 1800 Calorie Control Diet and 2000 mg Sodium Diet Discharge Activity: Return to Normal Activity Meaningful Use Info Meaningful Use Diagnoses (Choose all that apply): CHF CHF JAYDE/ARB ordered at discharge?: Yes Documented LVEF (%): 50 Discharge Plan Admission Admit Date/Time: 08/25/23 21:46 Primary Reason for Your Visit: Exertional shortness of breath Attending Provider: Jolene Valentine Primary Care Provider: Howard Escobar Consulting Providers: Elia Ewing; Sonia Khan Instructions Additional Instructions / Restrictions: 1. Please continue taking Lasix as you have been at home. 2. Weigh yourself daily without close on at the same time in the morning and if you gain more than 2 pounds in a 24-hour period take 1 extra Lasix tablet 3. We added metolazone, which is a diuretic as well, to be taken every Thursday and . Please take mid. 4. Please follow-up with cardiology next week as previously scheduled 5. Please have your INR checked on 09/01/2023 Discharge Orders/Prescriptions Prescriptions: New metolazone 2.5 mg tablet 2.5 mg PO .Thursday and Qty: 8 1RF Continued finasteride 5 mg tablet 5 mg PO DAILY Patient Comments: TAKE 1 TABLET BY MOUTH ONCE DAILY glimepiride 1 mg tablet 1 mg PO DAILY cyanocobalamin (vitamin B-12) [Vitamin B-12] 1,000 mcg tablet 1,000 mcg PO DAILY cholecalciferol (vitamin D3) 25 mcg (1,000 unit) capsule 25 mcg PO DAILY warfarin 2.5 mg tablet 2.5 mg PO MOFR Rx Instructions: Managed by PCP lisinopril 20 mg tablet 20 mg PO DAILY carvedilol 6.25 mg tablet 6.25 mg PO BID Qty: 60 11RF Rx Instructions: must administer with a meal/food furosemide [Lasix] 40 mg tablet 40 mg PO BID Qty: 180 3RF amlodipine 5 mg tablet 5 mg PO DAILY Qty: 90 3RF Farxiga 10 mg tablet 10 mg PO DAILY Qty: 90 3RF Discontinued metolazone 2.5 mg tablet 2.5 mg PO .PRN Hold Instructions: not on med list Referrals / Follow Up: Howard Escobar DO [Primary Care Provider] - Within 2 Weeks RosaleeJairo lópez MD [Med Staff - Active Staff] - See Referral Note (As scheduled for next week) Disposition Disposition (needs filled in before D/C Order can be placed): Home, Self Care Charges/Coding Visit Charges Inpatient E&M: 86916 Disch Hosp >30min
[2023-08-28 14:36] VITALS: BP 136/71; PULSE 70; RESP 14; TEMP 36.9; O2SAT 95
--- NOTE | 2023-08-28 14:54 | PHA.DC_ITS ---
Pharmacy [facility] has performed discharge medication reconciliation and counseling for this patient. The patient's discharge medication list was reviewed for discrepancies and discrepancies were resolved. The patient was counseled on the following discharge medications and changes in medications for homegoing were reviewed. 1. METOLAZONE The Reason for Use, instructions for use, and potential side effects were reviewed for all new medications. The patient's questions regarding all of their medications were answered. The patient was able to verbally demonstrate an understanding of their discharge medications. Medications at Discharge Home Medications finasteride 5 mg tablet 5 mg PO DAILY prostate 12/19/20 glimepiride 1 mg tablet 1 mg PO DAILY diabetes 02/13/21 warfarin 2.5 mg tablet 2.5 mg PO MOFR blood thinner 03/11/21 cyanocobalamin (vitamin B-12) 1,000 mcg tablet (Vitamin B-12) 1,000 mcg PO DAILY 06/26/22 cholecalciferol (vitamin D3) 25 mcg (1,000 unit) capsule 25 mcg PO DAILY 08/01/22 carvedilol 6.25 mg tablet 6.25 mg PO BID #60 tabs 05/13/23 furosemide 40 mg tablet (Lasix) 40 mg PO BID #180 tabs 05/20/23 amlodipine 5 mg tablet 5 mg PO DAILY #90 tabs 07/07/23 dapagliflozin propanediol 10 mg tablet (Farxiga) 10 mg PO DAILY #90 tabs 08/04/23 lisinopril 20 mg tablet 20 mg PO DAILY 08/07/23 metolazone 2.5 mg tablet 2.5 mg PO .Thursday and #8 tabs 08/28/23
--- NOTE | 2023-08-28 14:55 | CASEMGMT ---
Patient has order for discharge. RN CM in to discuss needs at discharge. Patient denies needs or help at discharge. Patient had no further questions or concerns at this time.
== END 2023-08-28 15:58 | disposition home or self-care (01) | DRG 291 ==
LOC: ED 16:35 → PCU 16:49
PROVIDERS: Admitting Provider Hospitalist; Emergency Provider Emergency Medicine; PCP Family Medicine; Visit Provider Internal Medicine
DX: I13.0 Hypertensive heart and chronic kidney disease with heart failure and stage 1 through stage 4 chronic kidney disease, or unspecified chronic kidney disease (principal); I50.43 Acute on chronic combined systolic (congestive) and diastolic (congestive) heart failure; I48.19 Other persistent atrial fibrillation; N13.8 Other obstructive and reflux uropathy; I27.20 Pulmonary hypertension, unspecified; D63.1 Anemia in chronic kidney disease; E11.22 Type 2 diabetes mellitus with diabetic chronic kidney disease; N18.32 Chronic kidney disease, stage 3b; I42.2 Other hypertrophic cardiomyopathy; E11.51 Type 2 diabetes mellitus with diabetic peripheral angiopathy without gangrene; I08.0 Rheumatic disorders of both mitral and aortic valves; D72.829 Elevated white blood cell count, unspecified; E78.5 Hyperlipidemia, unspecified; E87.6 Hypokalemia; I25.10 Atherosclerotic heart disease of native coronary artery without angina pectoris; I44.7 Left bundle-branch block, unspecified; G47.33 Obstructive sleep apnea (adult) (pediatric); E66.9 Obesity, unspecified; Z66 Do not resuscitate; R79.1 Abnormal coagulation profile; Z87.891 Personal history of nicotine dependence; Z68.31 Body mass index [BMI] 31.0-31.9, adult; Z79.01 Long term (current) use of anticoagulants; Z79.84 Long term (current) use of oral hypoglycemic drugs; Z82.3 Family history of stroke; N40.1 Benign prostatic hyperplasia with lower urinary tract symptoms
CPT/HCPCS: 36415; 71045; 76700; 80048; 80076; 81001; 82962; 83735; 83880; 84484; 85025; 85027; 85610; 87428; 87449; 87633; 93005; 93306; 94668; 94760; 99283; Q9957; A4216; C8929; J1940

== ENCOUNTER 2023-08-29 09:10 | Inpatient (IN) | payer MEDICARE, BC, SELFPAY ==
[2023-08-29] VITALS (18 sets, daily range): BP systolic 65–155; BP diastolic 36–104; PULSE 64–112; RESP 12–36; TEMP 36.4–38.4; O2SAT 77–100; BMI 30.7; BMI 30.4
--- NOTE | 2023-08-29 09:37 | RAD_ITS ---
STUDY: X-RAY CHEST REASON FOR EXAM: Male, 78 years old. Shortness of breath TECHNIQUE: Frontal view of the chest COMPARISON: 08/25/2023 FINDINGS: There are stable mild congestive changes noted. The lungs are otherwise clear. There are no pleural effusions. There is no pneumothorax. The heart is stable in size. Again noted are sternotomy wires. The visualized osseous structures are within normal limits. RAD/Chest 1 View (Portable) IMPRESSION: Stable mild pulmonary vascular congestion. Electronically Signed: Carloz Cortez MD at 10:54 EST ,
--- NOTE | 2023-08-29 09:43 | EDS_ITS ---
HPI History of Present Illness Chief Complaint: Shortness of Breath Informant: patient and family Narrative Narrative: Presenting here with [id number] worsening dyspnea overnight. Discharged yesterday afternoon after 3-day stay for CHF exacerbation. No home oxygen. States he did not feel well going home. No cough. Overnight myalgias. Denies cough. Stage III kidney disease. No dialysis. He states only 2 pounds was removed when he left. Continued leg swelling. Is on warfarin history of paroxysmal A-fib. Denies chest pains. Prior similar symptoms: Yes PFSH PFSH Medical History Abnormal ankle brachial index (LOKI) Anemia due to stage 3b chronic kidney disease Back pain BPH (benign prostatic hyperplasia) Cardiology follow-up encounter CHF NYHA class III Chronic combined systolic and diastolic CHF (congestive heart failure) Chronic kidney disease, stage 3b Claudication Constipation CPAP (continuous positive airway pressure) dependence Diabetes Diarrhea Dietary restriction Elevated troponin (01/2021) Essential (primary) hypertension Gout Heartburn History of echocardiogram History of edema History of irregular heartbeat History of non-ST elevation myocardial infarction (NSTEMI) (07/25/21) History of pain when walking History of steroid therapy History of tobacco use HLD (hyperlipidemia) Hypertension Hypertrophic cardiomyopathy Hypokalemia Joint pain Lactic acidosis Left bundle branch block Leg cramps Leukocytosis Longstanding persistent atrial fibrillation Mitral valve insufficiency Night sweats 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 Obesity (BMI 30.0-34.9) KIMBERLY (obstructive sleep apnea) Persistent atrial fibrillation Poor appetite Presence of implantable pulmonary artery pressure and heart rate monitoring system (03/25/21) Renal infarct Restless legs Secondary pulmonary arterial hypertension Shortness of breath on exertion Wears glasses Home Medications finasteride 5 mg tablet 5 mg PO DAILY prostate 12/19/20 [History Last Taken 12/22/20] glimepiride 1 mg tablet 1 mg PO DAILY diabetes 02/13/21 [History Last Taken Unknown] warfarin 2.5 mg tablet See Rx Instructions PO .COMPLEX blood thinner 03/11/21 [History Last Taken 05/31/22] cyanocobalamin (vitamin B-12) 1,000 mcg tablet (Vitamin B-12) 1,000 mcg PO DAILY supplement 06/26/22 [History Last Taken Unknown] cholecalciferol (vitamin D3) 25 mcg (1,000 unit) capsule 25 mcg PO DAILY supplement 08/01/22 [History Last Taken Unknown] carvedilol 6.25 mg tablet 6.25 mg PO BID #60 tabs 05/13/23 [Rx Last Taken Unknown] furosemide 40 mg tablet (Lasix) 40 mg PO BID #180 tabs 05/20/23 [Rx Last Taken Unknown] amlodipine 5 mg tablet 5 mg PO DAILY #90 tabs 07/07/23 [Rx Last Taken Unknown] lisinopril 20 mg tablet 20 mg PO DAILY bp 08/07/23 [History Last Taken Unknown] metolazone 2.5 mg tablet 2.5 mg PO .Thursday and #8 tabs 08/28/23 [Rx Last Taken Unknown] Allergy/AdvReac Type Severity Reaction Status Date / Time rivaroxaban [From Xarelto] Allergy Bleeding Verified 08/25/23 12:56 metoprolol AdvReac bradycardia Verified 08/25/23 12:56 Family History Father Heart disease Sister Heart disease Brother Heart disease Other Arthritis CVA (cerebral vascular accident) Depression Mental disorder Surgical History History of appendectomy History of cataract extraction History of left heart catheterization (02/19/21) History of transurethral resection of prostate (01/2019) History of ventricular septal myectomy (2000) Hx of umbilical hernia repair Social History Smoking Status: Former smoker how long ago did patient quit smokin years ago 0.25ppd second hand exposure: Yes alcohol intake: never caffeine: Yes Type: coffee Number of servings: 1 what type of physical activity do you participate in: other details: treadmill frequency: daily ROS ROS ED Constitutional Constitutional ED: Denies chills, fever(s) or sweats Eyes Eyes: Denies change in vision ENT ENT ED: Denies dysphagia or sore throat Cardiovascular Cardiovascular: Reports leg edema; Denies chest pain, palpitations or racing heartbeat Respiratory/Chest Respiratory/Chest: Reports dyspnea; Denies cough or dyspnea on exertion Gastrointestinal Gastrointestinal: Denies abdominal pain, diarrhea, nausea or vomiting Genitourinary Genitourinary ED: Denies dysuria, hematuria or urinary frequency Musculoskeletal Musculoskeletal: Denies back pain, extremity pain or neck pain Integumentary Denies rash or wounds Neurologic Neurologic: Denies headache(s), paresthesias or weakness EXAM Physical Exam Const Vital Signs: 08/29/23 09:13 08/29/23 09:15 08/29/23 09:16 Temperature 97.5 F L Temperature Source Temporal Pulse Rate 112 H Respiratory Rate 30 H Respiratory Effort Short of Breath Labored Respiratory Depth Shallow Respiratory Pattern Tachypnea Blood Pressure Blood Pressure Mean Pulse Ox 77 85 Oxygen Delivery Method Room Air Nasal Cannula Nasal Cannula Oxygen Flow Rate (L/min) 4 4 08/29/23 09:17 08/29/23 09:42 08/29/23 11:12 Temperature Temperature Source Pulse Rate Respiratory Rate 18 Respiratory Effort Respiratory Depth Respiratory Pattern Blood Pressure 155/104 H Blood Pressure Mean 121 Pulse Ox Oxygen Delivery Method Nasal Cannula Oxygen Flow Rate (L/min) 4 Positive well nourished and well developed Constitutional Narrative: 4 L nasal cannula, no respiratory distress. General Appearance ED: well developed and NAD HEENT Reports moist mucous membranes normocephalic and atraumatic Eyes PERRL, EOMs intact bilaterally and conjunctivae normal General Eye ED: Yes normal appearance of both eyes Neck no lymphadenopathy and supple General: Negative for tenderness Chest Wall Chest: Negative for tenderness Resp normal respiratory effort and normal air movement Effort and Inspection: symmetric chest movement; Negative for respiratory distress Cardio regular rate, regular rhythm and no murmurs Peripheral Pulses: pulses 2+ throughout GI normal to inspection, nondistended, normoactive bowel sounds and non-tender Palpation: Negative for guarding or rebound tenderness present Back/Spine no CVA tenderness and no thoracic nor lumbar tenderness Extremity normal to inspection Extremity Narrative: 1-2+ lower extremity swelling. No calf or medial thigh tenderness. General Extremety ED: Yes edema; Negative for tenderness General Extremity: edema Neuro oriented x3 and no sensory deficits noted Sensorium / Orientation: awake and alert Skin no rashes or lesions noted and no wounds MDM MDM MDM Narrative Medical decision making narrative: Interventions / MDM: Differential diagnosis: CHF, leukocytosis, hypoxia Diagnosis considered but do not suspect: No clinical pneumonia or urinary tract infections. Pulmonary embolism, however is on anticoagulants. My EKG interpretation: A-fib rate controlled 96, chronic left bundle branch block no acute findings. Compared to EKG earlier this month. Imaging independently reviewed and interpreted by myself: 1 view chest x-ray: Mild vascular congestion. Ultrasound lower extremities: Pending External documents reviewed: Recent admission, 89 kg on admission, he was 84.9 kg on discharge. Today he is 83.9kg. Test considered but not ordered:N/A ED course: Patient presenting with increasing dyspnea and hypoxia after being discharged yesterday. He is 77% room air he is placed on 4 L nasal cannula. There is leg swelling, workup initiated with repeat labs chest x-ray. He has CKD history, will order ultrasound lower extremities. He is on anticoagulants. EKG is rate controlled A-fib. Stable on oxygenation, chest x-ray mild vascular congestion, BNP slightly elevated to 22. White count returned at 24,000 and up from discharge. No infectious symptoms however did add blood cultures lactic acid urine and culture sent. Lactic acid returned at 1.1. INR returned at 1.9 essentially therapeutic with ultrasound legs pending. Creatinine 2.22 with GFR of 30. I spoke with hospitalist Dr. Valentine, took care of him on his last admission, will add a procalcitonin, she ordered CT of his chest for further evaluation. Will admit for further management. Urine result returned normal, procalcitonin slightly up at 0.56. Antibiotics per medicine team. Re-evaluation: stable Disposition discussed with patient/family/significant other: Patient and family Case discussed with consulting clinician: Hospitalist This note was generated with eBuddy dictation software. It may contain incorrect words, spelling, and punctuation that were not noted in checking the note before signing. Lab Data Attestation: I reviewed the patient's lab results. Labs: Laboratory Results - last 24 hr 08/29/23 08/29/23 08/29/23 09:39 10:04 10:31 WBC 24.7 H RBC 4.05 L Hgb 12.0 L Hct 36.9 L MCV 91.1 MCH 29.6 MCHC 32.5 RDW Std Deviation 47.2 H RDW Coeff of Kiersten 14.1 Plt Count 308 MPV 11.1 Immature Gran % (Auto) 0.800 Neut % (Auto) 90.5 H Lymph % (Auto) 2.9 L [place] % (Auto) 4.9 Eos % (Auto) 0.5 Baso % (Auto) 0.4 Absolute Neuts (auto) 22.4 H Absolute Lymphs (auto) 0.72 L Nucleated RBC % 0 Differential Comment SCANNED PT Cancelled 21.5 H INR Cancelled 1.9 APTT Cancelled 30.9 Sodium 135 L Potassium 4.2 Chloride 105 Carbon Dioxide 18.0 L Anion Gap 12 BUN 60 H Creatinine 2.22 H Estim Creat Clear Calc 23.09 Est GFR (MDRD) Af Amer 37 L Est GFR (MDRD) Non-Af 30 L BUN/Creatinine Ratio 27.0 H Glucose 119 H Lactic Acid 1.1 Calcium 8.5 Total Bilirubin 1.40 H AST 31 ALT 45 Alkaline Phosphatase 115 Troponin I High Sens 144 H* B-Natriuretic Peptide 226.2 H Total Protein 7.4 Albumin 2.9 L Globulin 4.5 H Albumin/Globulin Ratio 0.6 L Procalcitonin Urine Color Urine Clarity Urine pH Ur Specific [place] Urine Protein Urine Glucose (UA) Urine Ketones Urine Occult Blood Urine Nitrite Urine Bilirubin Urine Urobilinogen Ur Leukocyte Esterase Urine RBC Urine WBC Ur Squamous Epith Cells Urine Bacteria Urine Mucus 08/29/23 08/29/23 11:30 11:31 WBC RBC Hgb Hct MCV MCH MCHC RDW Std Deviation RDW Coeff of Kiersten Plt Count MPV Immature Gran % (Auto) Neut % (Auto) Lymph % (Auto) [place] % (Auto) Eos % (Auto) Baso % (Auto) Absolute Neuts (auto) Absolute Lymphs (auto) Nucleated RBC % Differential Comment PT INR APTT Sodium Potassium Chloride Carbon Dioxide Anion Gap BUN Creatinine Estim Creat Clear Calc Est GFR (MDRD) Af Amer Est GFR (MDRD) Non-Af BUN/Creatinine Ratio Glucose Lactic Acid Calcium Total Bilirubin AST ALT Alkaline Phosphatase Troponin I High Sens B-Natriuretic Peptide Total Protein Albumin Globulin Albumin/Globulin Ratio Procalcitonin 0.56 H Urine Color Yellow Urine Clarity Clear Urine pH 6.0 Ur Specific [place] 1.015 Urine Protein 30 H Urine Glucose (UA) Normal Urine Ketones 5 H Urine Occult Blood 10 H Urine Nitrite Negative Urine Bilirubin Negative Urine Urobilinogen Normal Ur Leukocyte Esterase Negative Urine RBC 0 SEEN Urine WBC 0 SEEN Ur Squamous Epith Cells 0 SEEN Urine Bacteria 0 SEEN Urine Mucus 0 SEEN Radiography Diagnostic Testing: Clinical Impression(s) from Imaging Studies Chest X-Ray 08/29/23 09:37 IMPRESSION: Stable mild pulmonary vascular congestion. Electronically Signed: Carloz Cortez MD at 10:54 EST , Chest CT 08/29/23 11:16 IMPRESSION: 1. Persistent or recurrent bilateral groundglass opacities/infiltrates could be due to pulmonary edema. 2. Small bilateral pleural effusions. 3. Few mediastinal nodes could be reactive. 4. Cholelithiasis. Electronically Signed: Mj Rice MD at 12:53 EST , Discharge Plan Dx/Rx/DC Orders Clinical Impression: CHF exacerbation, Leukocytosis, Hypoxia, CKD (chronic kidney disease), Persistent atrial fibrillation Disposition Disposition: Acute Care Hospital [facility] Discharge Date/Time: 08/29/23 13:29
--- OUTSIDE RECORDS SUMMARY | 2023-08-29 09:52 | XMS RPT_ITS | CCD ---
Author Name Unknown Address [address] [place] [address] Organization [facility] Care Team Providers Care Atmospheric Scientist Name Role Phone VALERIANO STONER, DR [place] Primary Care Physician Eriak BAL MD, DR [place] Attending Katina [...] Patient encounter procedure DR [place] BAL MD [facility] Start: 04-29-[address] [place] BAL MD Fa cility:B Start: 04-29-2022 End: 05-03-2022 Lab-Standing Order DR [place] [facility] Payers Date Payer Category Payer Medicare [id number] 2021 Unknown [id number] 1945 Unknown [id number] [id number] 1945 Unknown [id number] [id number] 1945 Unknown [id number] [id number] Progress note 11-01-2020 Note Date & Type Note Facility 11-01-2020 Note HNO ID: [id number] Author: Dakota Alfaro Service: ? Author Type: Physician Type: Progress Notes Filed: 11/01/2020 2:50 PM Note Text: Subjective: Patient is status post an upper and lower endoscopy. Completed at the [facility] in [place]. Biopsy of his duodenum was negative. Stomach [...] that point he will get it rescheduled. [facility] Progress note 10-22-2020 Note Date & Type Note Facility 10-22-2020 Note HNO ID: [id number] Author: Dakota Alfaro Service: ? Author Type: [...] UMBILICAL ARMEN,5+Y/O,REDUC ? ? - [facility] FOR IHSS ? ? - TRANSURETHRAL ELEC-SURG [...] HISTORY: FAMILY HI (more content not included)... [facility] Progress note 10-18-2020 Note Date & Type Note Facility 10-18-2020 Note HNO ID: [id number] Author: Patrick Olivier (Tech) Service: ? Author Type: Loan Specialist Type: Progress Notes Filed: 10/18/2020 2:08 PM [...] DATE: October 18, 2020 TIME: 2:07 PM [facility] Progress note 10-18-2020 Note Date & Type Note Facility 10-18-2020 Note HNO ID: [id number] Author: Dakota Mir Alfaro Service: ? Author [...] - REPAIR UMBILICAL ARMEN,5+Y/O,REDUC - [facility] FOR IHSS - TRANSURETHRAL ELEC-SURG PROSTATECTOM Current [...] entered by the nurse and reviewed by pr Nursing Notes: Rozina Cifuentes RN 10/18/2020 9:13 AM Signed REVIEW OF SYSTEMS: General: The patient denies fatigue, notes weight loss, (more content not included)... [facility] Evaluation + Plan note Note Date & Type Note Facility Evaluation + Plan note No data available for this section [facility] Hospital Discharge instructions Note Date & Type Note Facility Hospital Discharge instructions No data available for this section [facility] Progress note Note Date & Type Note Facility Progress note No data available for this section [facility] Summary Purpose Family History No Family History Records FoundNo Family History Records Found Advance Directives No Advanced Directives Records FoundNo Advanced Directives Records Found Additional Source Comments (unrecognized sect ion and content) No Status Records FoundNo Status Records Found INFORMATION SOURCE (unrecogn ized section and content) DATE CREATED AUTHOR AUTHOR'S ORGANIZ ATION 04/27/2023 [facility] ([place]) Care Team (unrecognized sect ion and content) Care Team Personnel Name: [place] BAL MD Member Role: Primary Care Physician Address: Address: [place] [id number] [place] [address] Patient Care team informatio n (unrecognized section and content) Care Team Personnel Name: [place] BAL MD Member Role: Primary Care Physician Address: Address: [place] [id number] FOR RECORDS PERTAINING TO PATIENTS WHO [...] BE BASED ON THE PRIMARY CLINICAL RECORDS. [facility] [employer] [facility]. provides no warranty or guarantee of the accuracy or completeness of information in this document.
[2023-08-29 09:54] LABS: Absolute Lymphocyte Count 0.72 X10^3/uL (0.83-4.51); Absolute Neutrophil Count 22.4 X10^3/uL (2.0-7.7); Basophil% 0.4 % (0-1); Eosinophil# 0.13 X10^3/uL; Eosinophils% 0.5 % (0-5); Hematocrit 36.9 % (40-54); Lymphocyte # 0.72 X10^3/ul (0.83-4.51); Lymphocyte % 2.9 % (19-41); Mean Corp Hgb Conc 32.5 g/dL (32-36); Mean Corpuscular Hgb 29.6 pg (27.0-32.0); Mean Corpuscular Volume 91.1 fL (80-94); Mean Platelet Vol. 11.1 fl (6.2-12.0); Monocyte% 4.9 % (0-10); NRBC Flagged by Analyzer 0 % (0-5); Neutrophil # 22.38 X10^3/uL (2.7-7.7); Neutrophil % 90.5 % (47-70); POSITIVE DIFFERENTIAL YES; Platelet Count 308 K/mm3 (150-450); RBC Distribution Width CV 14.1 % (11.6-14.6); RBC Distribution Width SD 47.2 fl (35.1-43.9); Red Blood Count 4.05 M/mm3 (4.6-6.2); White Blood Count 24.7 K/mm3 (4.4-11.0)
[2023-08-29 09:55] LABS: Differential Indicated SCAN CRITERIA MET
[2023-08-29 10:04] LABS: Differential Comment SCANNED
[2023-08-29 10:14] LABS: BNP,B-Type NATRIURETIC PEPTIDE 226.2 pg/mL (0-100)
[2023-08-29 10:32] LABS: ALB/GLOB Ratio 0.6 RATIO (0.9-2.4); AST(SGOT) 31 U/L (15-37); Alanine Aminotransfer ALT/SGPT 45 U/L (16-61); Albumin, Serum 2.9 g/dL (3.2-5.0); Alkaline Phosphatase 115 U/L (45-117); Anion Gap 12 (5-15); BUN 60 mg/dL (7-18); Calcium,Total 8.5 mg/dL (8.5-10.1); Chloride 105 mmol/L (98-107); Creatinine, Serum 2.22 mg/dL (0.70-1.30); EST Glomerular Filtration Rate 30 mL/min (>60); Est Glom Filt Rate - Afr Amer 37 mL/min (>60); Estimated Creatinine Clearance 23.09 ml/min; Globulin 4.5 g/dL (2.2-4.2); Glucose 119 mg/dL (74-106); Potassium 4.2 mmol/L (3.5-5.1); Protein, Total 7.4 g/dL (6.4-8.2); Sodium Level 135 mmol/L (136-145); Troponin-I HS 144 pg/mL (3.0-78.0)
[2023-08-29 10:42] LABS: International Normalized Ratio 1.9; Prothrombin Time (Protime)PT. 21.5 SECONDS (11.7-14.9)
[2023-08-29 10:44] LABS: Partial Thromboplast Time 30.9 Seconds (24.1-36.2)
[2023-08-29 11:11] LABS: Lactic Acid 1.1 mmol/L (0.4-1.9)
--- NOTE | 2023-08-29 11:16 | CT_ITS ---
INDICATION: hypoxia EXAMINATION: CT CHEST WITHOUT CONTRAST - CT Chest W/O Contrast Injection TECHNIQUE: Helically acquired images were obtained of the chest. A radiation dose optimization technique was used for this scan. IV Contrast dosage and agent: None. RADIATION DOSAGE (If Supplied By Facility): CTDIvol = ( 18.36 ) mGy, DLP = ( 656.18 ) mGycm COMPARISON: CTA of the chest of 07/25/2021. FINDINGS: LUNGS, PLEURA AND LARGE AIRWAYS: Persistent or recurrent bilateral hazy bilateral opacity/infiltrate but less prominent than the previous examination. No focal consolidation. Small bilateral pleural effusions. No pneumothorax. THYROID: No thyroid lesions. HEART AND PERICARDIUM: Borderline heart size. No evidence of pericardial effusion. Coronary calcifications. Previous median sternotomy. VESSELS: Atherosclerotic calcifications of the thoracic aorta without evidence of aneurysm. MEDIASTINUM AND GRADY: Few small mediastinal nodes unchanged could be reactive. Esophagus is unremarkable. No hiatal hernia. UPPER ABDOMEN: Contracted gallbladder with gallstones. Atrophic right kidney. BONES: No suspicious lytic or blastic abnormality. Multilevel degenerative changes. CT/Chest without Contrast IMPRESSION: 1. Persistent or recurrent bilateral groundglass opacities/infiltrates could be due to pulmonary edema. 2. Small bilateral pleural effusions. 3. Few mediastinal nodes could be reactive. 4. Cholelithiasis. Electronically Signed: Mj Rice MD at 12:53 EST ,
[2023-08-29 11:34] LABS: Bacteria 0 SEEN /hpf (None Seen); Mucous, Urine 0 SEEN /hpf (<or=2+); Red Blood Cells-Urine 0 SEEN /hpf (0-5); Squamous Epithelial Cells - UA 0 SEEN /hpf (0-5); White Blood Cells 0 SEEN /hpf (0-5)
[2023-08-29 11:37] LABS: Color, Urine Yellow (Yellow); Glucose, Dipstick Normal (Normal); Ketone-Dipstick 5 mg/dl (Negative); Leukocyte Esterase-Dipstick Negative /ul (Negative); Nitrite-Dipstick Negative (Negative); Occult Blood-Urine 10 /ul (Negative); Protein-Dipstick 30 mg/dl (Negative); Specific Gravity, Urine 1.015 (1.002-1.030); Urine Bilirubin Dipstick Negative (Negative); Urine Clarity Clear (Clear); Urine Urobilinogen Normal (Normal)
--- OUTSIDE RECORDS SUMMARY | 2023-08-29 11:43 | XMS RPT_ITS | CCD ---
Author Name Unknown Address [address] [place] [address] Organization [facility] Care Team Providers Care Farmworker [employer] Name Role Phone VALERIANO STONER, DR [place]ARD [...] Patient encounter procedure DR [place] BAL MD [facility] Start: 04-29-[address] [place] BAL MD Fa cility:B Start: 04-29-2022 End: 05-03-2022 Lab-Standing Order DR [place] [facility] Payers Date Payer Category Payer Medicare [id number] 2021 Unknown [id number] 1945 Unknown [id number] [id number] [id number] 1945 Unknown [id number] [id number] [id number] 1945 Unknown [id number] Progress note 11-01-2020 Note Date & Type Note Facility 11-01-2020 Note HNO ID: [id number] Author: Dakota Alfaro Service: ? Author Type: Physician Type: Progress Notes Filed: 11/01/2020 2:50 PM Note Text: Subjective: Patient is status post an upper and lower endoscopy. Completed at the [facility] in [place]. Biopsy of his duodenum was negative. Stomach [...] it rescheduled. [facility] Progress note 10-22-2020 Note Date & Type Note Facility 10-22-2020 Note HNO ID: [id number] Author: Dakota Alfaro Service: ? Author Type: [...] UMBILICAL ARMEN,5+Y/O,REDUC ? ? - [facility] FOR IHSS ? ? - TRANSURETHRAL ELEC-SURG [...] not included)... [facility] Progress note 10-18-2020 Note Date & Type Note Facility 10-18-2020 Note HNO ID: [id number] Author: Patrick Olivier (Tech) Service: ? Author Type: Property Utilization Officer Type: Progress Notes Filed: 10/18/2020 2:08 PM [...] 2:07 PM [facility] Progress note 10-18-2020 Note Date & Type Note Facility 10-18-2020 Note HNO ID: [id number] Author: Dakota Mir Alfaro Service: ? Author [...] - REPAIR UMBILICAL ARMEN,5+Y/O,REDUC - [facility] FOR IHSS - TRANSURETHRAL ELEC-SURG PROSTATECTOM Current [...] entered by the nurse and reviewed by nd Nursing Notes: Rozina Cifuentes RN 10/18/2020 9:13 AM Signed REVIEW OF SYSTEMS: General: The patient denies fatigue, notes weight loss, (more content not included)... [facility] Evaluation + Plan note Note Date & Type Note Facility Evaluation + Plan note No data available for this section [facility] Hospital Discharge instructions Note Date & Type Note Facility Hospital Discharge instructions No data available for this section [facility] Progress note Note Date & Type Note Facility Progress note No data available for this section [facility] Summary Purpose Family History No Family History Records FoundNo Family History Records Found Advance Directives No Advanced Directives Records FoundNo Advanced Directives Records Found Additional Source Comments (unrecognized sect ion and content) No Status Records FoundNo Status Records Found INFORMATION SOURCE (unrecogn ized section and content) DATE CREATED AUTHOR AUTHOR'S ORGANIZ ATION 04/27/2023 [facility] ([place]) Care Team (unrecognized sect ion and content) Care Team Personnel Name: [place] BAL MD Member Role: Primary Care Physician Address: Address: [place] [id number] [place] [address] Patient Care team informatio n (unrecognized section and content) Care Team Personnel Name: [place] BAL MD Member Role: Primary Care Physician Address: Address: [place] [id number] FOR RECORDS PERTAINING TO PATIENTS WHO [...] BE BASED ON THE PRIMARY CLINICAL RECORDS. [facility] [employer] [facility]. provides no warranty or guarantee of the accuracy or completeness of information in this document.
[2023-08-29 12:09] LABS: Procalcitonin 0.56 ng/mL (0.00-0.09)
--- OUTSIDE RECORDS SUMMARY | 2023-08-29 12:18 | XMS RPT_ITS | CCD ---
Author Name Unknown Address [address] [place] [address] Organization [facility] Care Team Providers Care Borematic Machine Operator Name Role Phone VALERIANO STONER, DR HOWARD [...] Patient encounter procedure DR HOWARD BAL MD [facility] Start: 04-29-[address] HOWARD BAL MD Fa cility:B Start: 04-29-2022 End: 05-03-2022 Lab-Standing Order DR HOWARD [facility] Payers Date Payer Category Payer Medicare [id number] 2021 Unknown [id number] 1945 Unknown [id number] 1945 Unknown [id number] 1945 Unknown [id number] Progress note 11-01-2020 Note Date & Type Note Facility 11-01-2020 Note HNO ID: [id number] Author: Dakota Alfaro Service: ? Author Type: Physician Type: Progress Notes Filed: 11/01/2020 2:50 PM Note Text: Subjective: Patient is status post an upper and lower endoscopy. Completed at the [facility] in [place]. Biopsy of his duodenum was negative. Stomach [...] that point he will get it rescheduled. [facility] Progress note 10-22-2020 Note Date & Type Note Facility 10-22-2020 Note HNO ID: [id number] Author: Dakota Alfaro Service: ? Author Type: [...] UMBILICAL ARMEN,5+Y/O,REDUC ? ? - [facility] ? ? - TRANSURETHRAL ELEC-SURG [...] HISTORY: FAMILY HI (more content not included)... [facility] Progress note 10-18-2020 Note Date & Type Note Facility 10-18-2020 Note HNO ID: [id number] Author: Patrick Olivier (Tech) Service: ? Author Type: Embossing Machine Operator Type: Progress Notes Filed: 10/18/2020 2:08 PM [...] DATE: October 18, 2020 TIME: 2:07 PM [facility] Progress note 10-18-2020 Note Date & Type Note Facility 10-18-2020 Note HNO ID: [id number] Author: Dakota Mir Alfaro Service: ? Author [...] - REPAIR UMBILICAL ARMEN,5+Y/O,REDUC - [facility] - TRANSURETHRAL ELEC-SURG PROSTATECTOM Current [...] entered by the nurse and reviewed by nv Nursing Notes: Rozina Cifuentes RN 10/18/2020 9:13 AM Signed REVIEW OF SYSTEMS: General: The patient denies fatigue, notes weight loss, (more content not included)... [facility] Evaluation + Plan note Note Date & Type Note Facility Evaluation + Plan note No data available for this section [facility] Hospital Discharge instructions Note Date & Type Note Facility Hospital Discharge instructions No data available for this section [facility] Progress note Note Date & Type Note Facility Progress note No data available for this section [facility] Summary Purpose Family History No Family History Records FoundNo Family History Records Found Advance Directives No Advanced Directives Records FoundNo Advanced Directives Records Found Additional Source Comments (unrecognized sect ion and content) No Status Records FoundNo Status Records Found INFORMATION SOURCE (unrecogn ized section and content) DATE CREATED AUTHOR AUTHOR'S ORGANIZ ATION 04/27/2023 [facility] ([place]) Care Team (unrecognized sect ion and content) Care Team Personnel Name: HOWARD BAL MD Member Role: Primary Care Physician Address: Address: [place] [id number] [place] [address] Patient Care team informatio n (unrecognized section and content) Care Team Personnel Name: HOWARD BAL MD Member Role: Primary Care Physician Address: Address: [place] [id number] FOR RECORDS PERTAINING TO PATIENTS WHO [...] BE BASED ON THE PRIMARY CLINICAL RECORDS. [facility]. provides no warranty or guarantee of the accuracy or completeness of information in this document.
--- NOTE | 2023-08-29 12:22 | PCM.HP.STD ---
HPI - General General Date of Admission: 08/29/23 Date of Service: 08/29/23 Chief Complaint: Acute onset shortness of breath HPI Narrative ANTWAN GE, is a 78 M who presented to the emergency department at [facility] on the morning of 08/29/2023 with acute onset shortness of breath. Patient was recently here for a 3-day hospital stay for heart failure and was discharged on 08/28/2023 with improvement in his symptoms. Oxygen saturation on room air at discharge was 96% at rest and 93% with exertion. He was to continue his Lasix and add metolazone 2 times a week and monitor his fluid and salt intake closely with outpatient follow-up seeing cardiology as scheduled for next week. Patient states he went home and was tired so he took a nap. Got up did a few things and then went back to sleep as he was still tired. He then awoken abruptly while sleeping wearing his BiPAP with marked shortness of breath and then became very anxious so he came to the emergency department for further evaluation. He denies any cough, fever, chills, sputum and his only complaint is shortness of breath at rest and with exertion. He has ongoing swelling which is really unchanged since discharge and overall his weight is down. Overall weight is down about 3 kg's from his last hospitalization. Vital signs on presentation showed a temperature of 97.5, heart rate 112 that improved with oxygenation to 84, blood pressure was initially 155/104 with repeat at 125/62 once he was placed on oxygen, oxygen saturations were 77% on room air with a respiratory rate that has been anywhere from 18-36. His oxygenation did improve to 93% on 4 L nasal cannula. His CBC showed a leukocytosis with a white count of 24.7 up from 12.6 yesterday and a left shift. His hemoglobin was 12 and stable. INR was 1.9 down from 2.3 yesterday. His sodium was 135 with a bicarb of 18 and an anion gap of 12. BUN was 60 with a serum creatinine of 2.22. Serum glucose was 119. Lactic acid was 1.1. His total bilirubin was 1.4 with no more LFTs. BNP was 226.2 down from 372 at his last hospitalization. His troponin was 144 and pretty comparable to his previous troponin. Procalcitonin was 0.56. His UA is not consistent with infection. Chest x-ray shows mild pulmonary vascular congestion. [facility] Medical History Abnormal ankle brachial index (LOKI) Anemia due to stage 3b chronic kidney disease Back pain BPH (benign prostatic hyperplasia) Cardiology follow-up encounter CHF NYHA class III Chronic combined systolic and diastolic CHF (congestive heart failure) Chronic kidney disease, stage 3b Claudication Constipation CPAP (continuous positive airway pressure) dependence Diabetes Diarrhea Dietary restriction Elevated troponin (01/2021) Essential (primary) hypertension Gout Heartburn History of echocardiogram History of edema History of irregular heartbeat History of non-ST elevation myocardial infarction (NSTEMI) (07/25/21) History of pain when walking History of steroid therapy History of tobacco use HLD (hyperlipidemia) Hypertension Hypertrophic cardiomyopathy Hypokalemia Joint pain Lactic acidosis Left bundle branch block Leg cramps Leukocytosis Longstanding persistent atrial fibrillation Mitral valve insufficiency Night sweats 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 Obesity (BMI 30.0-34.9) KIMBERLY (obstructive sleep apnea) Persistent atrial fibrillation Poor appetite Presence of implantable pulmonary artery pressure and heart rate monitoring system (03/25/21) Renal infarct Restless legs Secondary pulmonary arterial hypertension Shortness of breath on exertion Wears glasses Home Medications finasteride 5 mg tablet 5 mg PO DAILY prostate 12/19/20 [History Last Taken 12/22/20] glimepiride 1 mg tablet 1 mg PO DAILY diabetes 02/13/21 [History Last Taken Unknown] warfarin 2.5 mg tablet 2.5 mg PO MOFR blood thinner 03/11/21 [History Last Taken 05/31/22] cyanocobalamin (vitamin B-12) 1,000 mcg tablet (Vitamin B-12) 1,000 mcg PO DAILY 06/26/22 [History Last Taken Unknown] cholecalciferol (vitamin D3) 25 mcg (1,000 unit) capsule 25 mcg PO DAILY 08/01/22 [History Last Taken Unknown] carvedilol 6.25 mg tablet 6.25 mg PO BID #60 tabs 05/13/23 [Rx Last Taken Unknown] furosemide 40 mg tablet (Lasix) 40 mg PO BID #180 tabs 05/20/23 [Rx Last Taken Unknown] amlodipine 5 mg tablet 5 mg PO DAILY #90 tabs 07/07/23 [Rx Last Taken Unknown] dapagliflozin propanediol 10 mg tablet (Eltonxiga) 10 mg PO DAILY #90 tabs 08/04/23 [Rx Last Taken Unknown] lisinopril 20 mg tablet 20 mg PO DAILY 08/07/23 [History Last Taken Unknown] metolazone 2.5 mg tablet 2.5 mg PO .Thursday and #8 tabs 08/28/23 [Rx Last Taken Unknown] Allergy/AdvReac Type Severity Reaction Status Date / Time rivaroxaban [From Xarelto] Allergy Bleeding Verified 08/25/23 12:56 metoprolol AdvReac bradycardia Verified 08/25/23 12:56 Family History Father Heart disease Sister Heart disease Brother Heart disease Other Arthritis CVA (cerebral vascular accident) Depression Mental disorder Surgical History History of appendectomy History of cataract extraction History of left heart catheterization (02/19/21) History of transurethral resection of prostate (01/2019) History of ventricular septal myectomy (2000) Hx of umbilical hernia repair Social History Smoking Status: Former smoker how long ago did patient quit smokin years ago 0.25ppd second hand exposure: Yes alcohol intake: never caffeine: Yes Type: coffee Number of servings: 1 what type of physical activity do you participate in: other details: treadmill frequency: daily ROS Constitutional Constitutional: Reports fatigue; Denies anorexia, change in weight, chills, fever(s), malaise, night sweats, weakness or other Eyes Eyes: Denies blurry vision, change in eye color, change in vision, discharge from eye(s), double vision, erythema, eye pain, loss of vision or other ENT HEENT: Denies abnormal hearing, dysphagia, ear pain, epistaxis, headache(s), hearing loss, nasal congestion, nasal discharge, post nasal drip, sinus pressure, sore throat or other Cardiovascular Cardiovascular: Reports dyspnea on exertion, edema and orthopnea; Denies chest pain, claudication, lightheadedness, palpitations, paroxysmal nocturnal dyspnea, rapid heart rate, syncope or other Respiratory/Chest Respiratory/Chest: Reports dyspnea, shortness of breath at rest and shortness of breath with exertion; Denies cough, excessive phlegm production, hemoptysis, productive cough, wheezing or other Gastrointestinal Gastrointestinal: Denies abdominal pain, coffee ground emesis, constipation, diarrhea, dyspepsia, hematemesis, hematochezia, loose stools, melena, nausea, vomiting or other Genitourinary Genitourinary: Denies burning urination, difficulty urinating, dysuria, hematuria, nocturia, urinary frequency, urinary hesitancy, urinary incontinence, urinary urgency or other Musculoskeletal Musculoskeletal: Denies arthralgias, back pain, joint pain, joint stiffness, joint swelling, myalgias, neck pain or other Neurologic Neurologic: Denies abnormal gait, abnormal speech, confusion, disequilibrium, dizziness, focal weakness, headache(s), numbness, paresthesias, seizure-like activity, seizures, syncope, tingling, tremor(s) or other Psychiatric Psychiatric: Reports anxiety; Denies depression, homicidal ideation, suicidal ideation or other Endocrine Endocrinology: Denies change in body appearance, cold intolerance, excessive sweating, heat intolerance, polydipsia, polyuria or other Hematologic/Lymphatic Hematologic/Lymphatic: Denies anemia, easy bleeding, easy bruising, lymphadenopathy or other Allergic/Immunologic Allergic/Immunologic: Denies rhinitis, hives, eczemia, asthma or other Vital Signs Vital Signs Vital Signs: 08/29/23 09:13 08/29/23 09:15 08/29/23 09:16 Temperature 97.5 F L Temperature Source Temporal Pulse Rate 112 H Respiratory Rate 30 H Respiratory Effort Short of Breath Labored Respiratory Depth Shallow Respiratory Pattern Tachypnea Blood Pressure Blood Pressure Mean Pulse Ox 77 85 Oxygen Delivery Method Room Air Nasal Cannula Nasal Cannula Oxygen Flow Rate (L/min) 4 4 08/29/23 09:17 08/29/23 09:42 08/29/23 11:12 Temperature Temperature Source Pulse Rate Respiratory Rate 18 Respiratory Effort Respiratory Depth Respiratory Pattern Blood Pressure 155/104 H Blood Pressure Mean 121 Pulse Ox Oxygen Delivery Method Nasal Cannula Oxygen Flow Rate (L/min) 4 08/29/23 12:12 Temperature Temperature Source Pulse Rate 84 Respiratory Rate 36 H Respiratory Effort Respiratory Depth Respiratory Pattern Blood Pressure 125/62 H Blood Pressure Mean 83 Pulse Ox 93 Oxygen Delivery Method Room Air Oxygen Flow Rate (L/min) Weight Weight: 83.9 kg Body Mass Index (BMI) 30.7 Physical Exam Const alert and oriented x3 Constitutional Narrative: Older, white male, sitting up in bed, family at bedside, patient appears short of breath and dyspneic on conversation utilizing 4 L of nasal cannula however oxygen saturations are stable, appears nontoxic General Appearance: cooperative HEENT normocephalic, head/scalp atraumatic and moist oral mucous membranes HEENT Narrative: Mallampati 3, no thrush, moderate hearing loss, trachea midline Eyes PERRL, EOMs intact bilaterally and conjunctivae normal Neck no lymphadenopathy and supple Neck Narrative: neck is short and thick, trachea midline, no thyroid enlarged noted Resp No normal respiratory effort, no retractions, no use of accessory muscles and No clear to auscultation bilaterally Resp Narrative: Crackles at bases bilaterally left greater than right, tachypnea and significant conversational dyspnea with mild dyspnea noted at rest Auscultation: crackles; Negative for rhonchi or wheezes Cardio regular rate, S1 normal heart sound, S2 normal heart sound, no murmurs, no rub, no gallops and no clicks Cardio Narrative: Irregularly irregular rhythm with regular rate GI normal to inspection, nondistended, normoactive bowel sounds, soft to palpation and non-tender Extremity Extremity Narrative: 2+ pitting edema bilateral lower extremities, no cyanosis or clubbing Skin no rashes or lesions noted, no wounds, skin turgor normal, no jaundice, no petechiae and no mottling Skin Narrative: Skin is pale Neuro oriented x3, moves all extremities and no focal motor deficits Speech: speech normal Psych Psych Narrative: Eye contact is good, patient interacts appropriately, mildly anxious related to respiratory status Mood & Affect: anxious Results Lab / Micro Data 08/29/23 09:39 08/29/23 09:39 Labs: Laboratory Results - last 24 hr 08/29/23 09:39: WBC 24.7 H, RBC 4.05 L, Hgb 12.0 L, Hct 36.9 L, MCV 91.1, MCH 29.6, MCHC 32.5, RDW Std Deviation 47.2 H, RDW Coeff of Kiersten 14.1, Plt Count 308, MPV 11.1, Immature Gran % (Auto) 0.800, Neut % (Auto) 90.5 H, Lymph % (Auto) 2.9 L, [facility] % (Auto) 4.9, Eos % (Auto) 0.5, Baso % (Auto) 0.4, Absolute Neuts (auto) 22.4 H, Absolute Lymphs (auto) 0.72 L, Nucleated RBC % 0, Differential Comment SCANNED, PT Cancelled, INR Cancelled, APTT Cancelled, Sodium 135 L, Potassium 4.2, Chloride 105, Carbon Dioxide 18.0 L, Anion Gap 12, BUN 60 H, Creatinine 2.22 H, Estim Creat Clear Calc 23.09, Est GFR (MDRD) Af Amer 37 L, Est GFR (MDRD) Non-Af 30 L, BUN/Creatinine Ratio 27.0 H, Glucose 119 H, Calcium 8.5, Total Bilirubin 1.40 H, AST 31, ALT 45, Alkaline Phosphatase 115, Troponin I High Sens 144 H*, B-Natriuretic Peptide 226.2 H, Total Protein 7.4, Albumin 2.9 L, Globulin 4.5 H, Albumin/Globulin Ratio 0.6 L 08/29/23 10:04: PT 21.5 H, INR 1.9, APTT 30.9 08/29/23 10:31: Lactic Acid 1.1 08/29/23 11:30: Procalcitonin 0.56 H 08/29/23 11:31: Urine Color Yellow, Urine Clarity Clear, Urine pH 6.0, Ur Specific [place] 1.015, Urine Protein 30 H, Urine Glucose (UA) Normal, Urine Ketones 5 H, Urine Occult Blood 10 H, Urine Nitrite Negative, Urine Bilirubin Negative, Urine Urobilinogen Normal, Ur Leukocyte Esterase Negative, Urine RBC 0 SEEN, Urine WBC 0 SEEN, Ur Squamous Epith Cells 0 SEEN, Urine Bacteria 0 SEEN, Urine Mucus 0 SEEN Micro: Microbiology 08/29/23 09:42 Mucosa - Nose SARS-CoV-2, Influenza & RSV (PCR) - Final Imagaing Radiology Impression Chest X-Ray 08/29/23 09:37 IMPRESSION: Stable mild pulmonary vascular congestion. Electronically Signed: Carloz Cortez MD at 10:54 EST , Assessment & Plan Assessment/Plan (1) Subtherapeutic international normalized ratio (INR): (2) Pulmonary artery hypertension: (3) Grade III diastolic dysfunction: (4) Mitral valve insufficiency: (5) Leukocytosis: (6) Acute hypoxic respiratory failure: PLAN: Plan Acute hypoxic respiratory failure secondary to acute exacerbation diastolic heart failure/right-sided heart failure -Echo done on 08/27/2023 showed biatrial enlargement, moderate mitral valve insufficiency, moderate pulmonary artery hypertension, stage III diastolic dysfunction and an EF of 50 to 55% -Patient was recently here and diuresed well with discharge being yesterday and we obtained an ambulatory pulse ox prior to discharge and he was on room air at rest and with exertion with no saturations less than 90% -Patient does have CardioMEMS device -Trial Bumex 2 mg twice daily -Fluid restriction -Sodium restriction -Daily weights -Virgilio bandages lower extremities -BiPAP to decrease work of breathing -Patient is oxygenating well on 4 L supplemental nasal cannula -Wean oxygen as able -CT of the chest is pending Leukocytosis -Flu and COVID rapid are negative -Repeat respiratory viral panel is pending -Strep pneumo and Legionella antigens were negative during last hospital stay-no need to repeat -Highly suspect this is reactive based on his hypoxia due to the fact that he is not having fever, chills, sputum production or any significant cough -Will start empiric antibiotics until infectious workup is complete -Levaquin 750 mg every 48 hours for renal dosing -Repeat CBC in a.m. -Continue to monitor Subtherapeutic INR -Goal is 2-3 -Current INR is 1.9 -Will increase Coumadin from 2.5 to 3 mg next-repeat INR in a.m. Anemia-chronic -Normocytic -Hemoglobin remained stable -Suspect related to chronic renal disease Persistent atrial fibrillation -Continue Coumadin but increase dose to 3 mg due to subtherapeutic INR -Continue home carvedilol DM-2 -Hemoglobin A1c on 07/07/2023 was 6.2 -Continue home Farxiga hold other home oral agents -SSI -Cardiac/carb controlled diet -Accu-Cheks as ordered CKD stage IIIb -Baseline serum creatinine appears to run between 2.0 and 2.5 -Check renal duplex due to selective atrophy to the right kidney on most recent ultrasound -Avoid nephrotoxins as able -Nephrology consult pending-discussed case with Dr. Barahona Chronic normocytic anemia secondary to CKD -Hemoglobin stable -Continue to monitor Hypertension -Continue home amlodipine -Continue home carvedilol -Continue home lisinopril -Bumex as above BPH -Continue home finasteride History of KIMBERLY -Continue CPAP -Patient is compliant at baseline Obesity -BMI 30.8 -Recommend weight loss -Complicates treatment, prognosis, outcomes DVT prophylaxis -Subcu heparin 3 times daily until INR is therapeutic between 2.0 and 3.0 CODE STATUS -DNR CCA with no intubation as verified on admission Charges/Coding Visit Charges Inpatient E&M: 97329 Init Hosp L3
--- NOTE | 2023-08-29 12:59 | RDU_ITS ---
Reason For Study: CKD Right Renal Artery Left Renal Artery Right renal artery ostium Left renal artery ostium 111.6/17.4 107.4/17.3 RSV/EDV. PSV/EDV. Right renal artery proximal Left renal artery proximal PSV/EDV 74.4/13.5 PSV/EDV. 99.6/12.9 . Right renal artery mid 60.4/10.7 Left renal artery mid 90.6/14.4 PSV/EDV. PSV/EDV . Right renal artery distal Left renal artery distal 62.2/14.4 92.0/13.6 PSV/EDV. PSV/EDV. Right RAR 1.38. Left RAR 1.43. Right Renal Parenchyma Left Renal Parenchyma Upper Pole Medula 30.7/6.9 Left upper pole medulla 28.8/6.7 PSV/EDV. PSV/EDV . Right upper pole medulla EDR Left upper pole medulla EDR 0.20 . 0.20 . Left upper pole medulla R.I. 0.77 . Right upper pole medulla R.I. UP Cortex 20.4/7.2 PSV/EDV. 0.77 . Left lower Pole medulla 35.6/8.1 Upper Ronal Cortx 13.3/5.1 PSV/EDV. PSV/EDV . Right upper pole cortex EDR 0.40 . Lower Pole Cortx 20.8/7.9 PSV/EDV. Right upper pole cortex R.I. Unable to acquire EDR / RI. 0.62 . Left Renal Hilar Right lower Pole medulla 28.9/8.8 LT Hilar avg 106.0/20.5 PSV/EDV . PSV/EDV . Left hilar acceleration time 40 Right lower pole medulla EDR m/sec. 0.30 . Left Renal Dimensions Right lower pole medulla R.I. Left kidney size 11.20 cm . 0.70 . Left cortical dimension 1.38 cm . Lower Pole Cortex 25.1/6.5 PSV/EDV. Right lower pole cortex EDR 0.30 . Right lower pole cortex R.I. 0.70 . Right Renal Dimensions Right kidney size 9.75 cm . Right cortical dimension 1.48 cm . Aorta Proximal abdominal aorta 1.93 x 2.07 cm . Proximal abdominal aorta peak systolic velocity is 77.8 cm/sec . Distal abdominal aorta 2.34 x 2.33 cm . Distal abdominal aorta peak systolic velocity is 59.5 cm/sec . Patient Safety Technically Difficult study due to bowel gas / patient positioning. Limited views obtained. VL/Renal Artery Duplex Ultrasound Interpretation Summary Right renal artery patent with normal velocities and no evidence of stenosis Left renal artery patent with normal velocities and no evidence of stenosis Right renal vein patent Left renal vein patent Right kidney normal in size Left kidney normal in size Ordering Physician: Jolene Valentine Referring Physician: Howard Escobar Performed By: Demarco Jacob RVT
[2023-08-29 13:43] LABS: Bedside Glucose 102 mg/dL (74-106)
[2023-08-29 13:53] LABS: Troponin-I HS 168 pg/mL (3.0-78.0)
[2023-08-29] MEDS: levoFLOXacin IV 750 MG/150 ML BAG 100 MG IV (14:48)
[2023-08-29] MEDS: Heparin Injection (Vial) 5,000 UNIT/ML VIAL 5000 UNIT SC ×2 (14:50→21:26)
[2023-08-29] MEDS: Acetaminophen 325 MG Tablet 650 MG PO (14:55)
[2023-08-29 17:37] LABS: Troponin-I HS 164 pg/mL (3.0-78.0)
--- NOTE | 2023-08-29 19:17 | PN.HOSP_ITS ---
Hospitalist Note Patient with onset hypotension, suspect sepsis. Will transfer to ICU, add 1L NS, LA pending, hold HTN regimen, consult help desk technician, MRSA screen already requested, changing abx to IV vanc and zosyn.
--- NOTE | 2023-08-29 19:17 | PCM.HOSP.N ---
Hospitalist Note Patient with onset hypotension, suspect sepsis. Will transfer to ICU, add 1L NS, LA pending, hold HTN regimen, consult waiter/waitress tourist class, MRSA screen already requested, changing abx to IV vanc and zosyn.
--- NOTE | 2023-08-29 19:19 | PCM.HOSP.N ---
Sepsis Attestation Sepsis Alert: Yes Sepsis Attestation: Agree w/Sepsis Date exam was performed: 08/29/23 Time exam was performed: 19:20 Supportive Findings: Pt meets sep1 criteria now with new fever since admission, leukocytosis, hypoxia. highy suspect GN organism with source yet identifed as fever and drop in BP both occurred after him receiving IV abx. Fluid Resuscitation Fluid resuscitation indicated?: Yes Fluid Resuscitation ordered: Lesser volume fluid bolus ordered Amount of fluid ordered: 1,000 Reason for lesser fluid bolus:: Concern for fluid overload, Heart failure and Renal Failure Sepsis Note Date exam was performed: 08/29/23 Time exam was performed: 21:08 Sepsis Attestation: Sepsis re-evaluation was performed Response to fluids: Fluid responsive hypotension
[2023-08-29 19:40] LABS: Bedside Glucose 172 mg/dL (74-106)
[2023-08-29 20:05] LABS: Lactic Acid 1.7 mmol/L (0.4-1.9)
[2023-08-29 20:09] LABS: Troponin-I HS 185 pg/mL (3.0-78.0)
[2023-08-29] MEDS: Vancomycin HCl 2,000 MG in 0.9% Normal Saline (500mL Bag) 500 ML 250 MG IV (20:17)
[2023-08-29] MEDS: 0.9% Normal Saline (1000mL) 1,000 ML 999 ML IV (20:17)
--- NOTE | 2023-08-29 20:46 | PCM.RX.CS ---
Consult Antibiotic Management Pharmacy has been consulted to manage selected antibiotic: Vancomycin Type of Intervention Type of Consult: New start Labs Labs: Sodium 135 mmol/L (136-145) L 08/29/23 09:39 Potassium 4.2 mmol/L (3.5-5.1) 08/29/23 09:39 Chloride 105 mmol/L (98-107) 08/29/23 09:39 Carbon Dioxide 18.0 mmol/L (21.0-32.0) L 08/29/23 09:39 Anion Gap 12 (5-15) 08/29/23 09:39 BUN 60 mg/dL (7-18) H 08/29/23 09:39 Creatinine 2.22 mg/dL (0.70-1.30) H 08/29/23 09:39 Est GFR (MDRD) Af Amer 37 mL/min (>60) L 08/29/23 09:39 Est GFR (MDRD) Non-Af 30 mL/min (>60) L 08/29/23 09:39 BUN/Creatinine Ratio 27.0 RATIO (10-20) H 08/29/23 09:39 Glucose 119 mg/dL (74-106) H 08/29/23 09:39 Microbiology Microbiology: Microbiology 08/29/23 11:40 Mucosa - Nasopharyngeal Respiratory Panel (PCR) - Final 08/29/23 09:42 Mucosa - Nose SARS-CoV-2, Influenza & RSV (PCR) - Final Dosing Weight Weight used for dosin.8 kg Estimated Creatinine Clearance Estimated Creatinine Clearance: 26.2 Goal Trough Goal Trough: 15-20 mcg/mL Pharmacy Plan for Drug Dosing Pharmacy Plan for Drug Dosing: Pharmacy Service will continue to monitor and adjust dosing as required. Follow-Up Labs Follow-Up Labs: Trough: Vancomycin Date/Time Labs Ordered Labs to be done on [date and time ordered]: 08/31 @ 1999
[2023-08-29] MEDS: Piperacil/Tazobactam 3.375 GM in 0.9% Normal Saline (50mL MB+) 50 ML IV (21:25)
[2023-08-29 21:48] LABS: Bedside Glucose 104 mg/dL (74-106)
[2023-08-29 22:10] LABS: M R Staph aureus DNA By PCR POSITIVE (Negative); Probe Check PASS
[2023-08-30] VITALS (13 sets, daily range): BP systolic 88–141; BP diastolic 48–84; PULSE 50–88; RESP 15–20; TEMP 36.2–36.7; O2SAT 90–98; BMI 31.0
--- NOTE | 2023-08-30 | CPS ---
Pt on own BIPAP unit with 2 lpm O2 bleed in.
[2023-08-30] MEDS: Heparin Injection (Vial) 5,000 UNIT/ML VIAL 5000 UNIT SC (05:20)
[2023-08-30] MEDS: Piperacil/Tazobactam 3.375 GM in 0.9% Normal Saline (50mL MB+) 50 ML IV ×3 (05:21→21:24)
[2023-08-30 05:40] LABS: Absolute Lymphocyte Count 0.98 X10^3/uL (0.83-4.51); Absolute Neutrophil Count 12.9 X10^3/uL (2.0-7.7); Basophil# 0.04 X10^3/uL; Basophil% 0.3 % (0-1); Eosinophil# 0.09 X10^3/uL; Eosinophils% 0.6 % (0-5); Hemoglobin 9.5 g/dL (13.0-16.5); Lymphocyte # 0.98 X10^3/ul (0.83-4.51); Lymphocyte % 6.5 % (19-41); Mean Corp Hgb Conc 31.7 g/dL (32-36); Mean Corpuscular Hgb 29.8 pg (27.0-32.0); Mean Platelet Vol. 11.2 fl (6.2-12.0); Monocyte# 0.98 X10^3/uL; Monocyte% 6.5 % (0-10); NRBC Flagged by Analyzer 0 % (0-5); Neutrophil # 12.91 X10^3/uL (2.7-7.7); Neutrophil % 85.2 % (47-70); Platelet Count 221 K/mm3 (150-450); RBC Distribution Width SD 48.8 fl (35.1-43.9); Red Blood Count 3.19 M/mm3 (4.6-6.2); White Blood Count 15.1 K/mm3 (4.4-11.0)
[2023-08-30 05:52] LABS: International Normalized Ratio 2.3; Prothrombin Time (Protime)PT. 25.7 SECONDS (11.7-14.9)
--- NOTE | 2023-08-30 05:58 | EX.PCM.CONCC ---
Assessment & Plan Assessment/Plan (1) Hypoxia: PLAN: Plan RECOMMENDATIONS: 1. Continue empiric antibiotics pending infectious workup. 2. Continue Coumadin and check INR daily. 3. Supplemental oxygen, if needed, to maintain saturations at or above 90%. 4. Resume diuretic regimen when feasible. 5. Check autoimmune panel as ordered. 6. Encourage incentive spirometer use and mobilize patient as tolerated. 7. The patient is medically stable for transfer out of the intensive care unit. IMPRESSIONS: 1. Sepsis Potential source could include pneumonia. The patient did have one isolated low blood pressure reading, which responded to IV fluid resuscitation. He remains hemodynamically stable and is maintaining appropriate oxygen saturations on room air. For now, it is reasonable to continue empiric antimicrobials, pending infectious workup. 2. Shortness of breath and hypoxemia Exact etiology is unclear. The patient does have ground glass opacities on chest imaging, with a differential including infectious and inflammatory etiologies, along with edema. He has already been started on empiric antibiotics. His presenting hypoxemia has resolved. I would recommend resuming his baseline diuretic regimen when feasible. Given that it does appear that he had a positive KAILA screen, we will plan to repeat his autoimmune workup as well. Encourage incentive spirometer use and mobilize patient as tolerated. 3. Chronic atrial fibrillation/diabetes mellitus/anemia/chronic kidney disease/history of obstructive sleep apnea/obesity Complicates care, management, recovery and prognosis. Continue current supportive care along with nocturnal PAP therapy per home regimen. This note was generated with [employer] dictation software. It may contain incorrect words, spelling, and punctuation that were not noted in checking the note before signing. HPI Consult Data Date of Consult: 08/30/23 HPI Narrative Reason for Consultation: Sepsis HPI Narrative: The patient is an 78-year-old male, with a history as outlined below, who presented to the emergency department on August 29 with shortness of breath. The patient had just been discharged from the hospital on August 28 after having been admitted for 3 days with decompensated heart failure, which was medically managed with diuretic therapy. The patient is currently followed in the cardiology clinic due to a history of atrial fibrillation and hypertrophic cardiomyopathy status post septal myectomy in 2000. In general, the patient reported feeling generally unwell with unintentional weight gain and puffiness . On presentation to the emergency department, the patient was noted to be afebrile but was mildly tachycardic and tachypneic. He was initially documented to be saturating 77% on room air. Initial laboratory evaluation revealed a white blood cell count of 25,000. Chemistry profile was notable for a bicarbonate of 18 and creatinine of 2.2. Lactate was within normal limits. Troponin was elevated at 144 with a BNP of 226. MRSA screen was positive. CT chest without contrast demonstrated bilateral groundglass opacities and small pleural effusions. Respiratory viral panel was negative. The patient was subsequently placed on broad-spectrum antimicrobials and admitted to the hospital. Last evening, the patient developed hypotension, with concern for sepsis. Therefore, he was transitioned to the medical intensive care unit for further management. The patient did have a single documented temperature of 101 ?F earlier in the afternoon yesterday. According to nursing report, while in the PCU, he had an isolated low blood pressure reading, which prompted his transfer to the intensive care unit. However, upon arrival to the ICU and following his 1 L fluid bolus, the patient's hemodynamic status was normal. He never required any vasopressor support. This morning, the patient denied the presence of a cough. He wore his PAP therapy overnight. I was able to discontinue his oxygen completely this morning and he was maintaining saturations in the mid 90s on room air. [facility] Medical History Abnormal ankle brachial index (LOKI) Anemia due to stage 3b chronic kidney disease Back pain BPH (benign prostatic hyperplasia) Cardiology follow-up encounter CHF NYHA class III Chronic combined systolic and diastolic CHF (congestive heart failure) Chronic kidney disease, stage 3b Claudication Constipation CPAP (continuous positive airway pressure) dependence Diabetes Diarrhea Dietary restriction Elevated troponin (01/2021) Essential (primary) hypertension Gout Heartburn History of echocardiogram History of edema History of irregular heartbeat History of non-ST elevation myocardial infarction (NSTEMI) (07/25/21) History of pain when walking History of steroid therapy History of tobacco use HLD (hyperlipidemia) Hypertension Hypertrophic cardiomyopathy Hypokalemia Joint pain Lactic acidosis Left bundle branch block Leg cramps Leukocytosis Longstanding persistent atrial fibrillation Mitral valve insufficiency Night sweats 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 Obesity (BMI 30.0-34.9) KIMBERLY (obstructive sleep apnea) Persistent atrial fibrillation Poor appetite Presence of implantable pulmonary artery pressure and heart rate monitoring system (03/25/21) Renal infarct Restless legs Secondary pulmonary arterial hypertension Shortness of breath on exertion Wears glasses Home Medications finasteride 5 mg tablet 5 mg PO DAILY prostate 12/19/20 [History Last Taken 12/22/20] glimepiride 1 mg tablet 1 mg PO DAILY diabetes 02/13/21 [History Last Taken Unknown] warfarin 2.5 mg tablet See Rx Instructions PO .COMPLEX blood thinner 03/11/21 [History Last Taken 05/31/22] cyanocobalamin (vitamin B-12) 1,000 mcg tablet (Vitamin B-12) 1,000 mcg PO DAILY supplement 06/26/22 [History Last Taken Unknown] carvedilol 6.25 mg tablet 6.25 mg PO BID #60 tabs 05/13/23 [Rx Last Taken Unknown] furosemide 40 mg tablet (Lasix) 40 mg PO BID #180 tabs 05/20/23 [Rx Last Taken Unknown] amlodipine 5 mg tablet 5 mg PO DAILY #90 tabs 07/07/23 [Rx Last Taken Unknown] metolazone 2.5 mg tablet 2.5 mg PO .Thursday and #8 tabs 08/28/23 [Rx Last Taken Unknown] dapagliflozin propanediol 10 mg tablet (Farxiga) 10 mg PO DAILY diabetes 08/29/23 [History Last Taken Unknown] gabapentin 100 mg capsule 100 mg PO QHS unsure 08/29/23 [History Last Taken Unknown] lisinopril 20 mg tablet 20 mg PO DAILY bp 08/29/23 [History Last Taken Unknown] pantoprazole 40 mg tablet,delayed release 40 mg PO DAILY prevent stomach ulcers 08/29/23 [History Last Taken Unknown] warfarin 3 mg tablet (Jantoven) 3 mg PO .COMPLEX blood thinner 08/29/23 [History Last Taken Unknown] Allergy/AdvReac Type Severity Reaction Status Date / Time rivaroxaban [From Xarelto] Allergy Bleeding Verified 08/25/23 12:56 metoprolol AdvReac bradycardia Verified 08/25/23 12:56 Family History Father Heart disease Sister Heart disease Brother Heart disease Other Arthritis CVA (cerebral vascular accident) Depression Mental disorder Surgical History History of appendectomy History of cataract extraction History of left heart catheterization (02/19/21) History of transurethral resection of prostate (01/2019) History of ventricular septal myectomy (2000) Hx of umbilical hernia repair Social History Smoking Status: Former smoker how long ago did patient quit smokin years ago 0.25ppd second hand exposure: Yes alcohol intake: never caffeine: Yes Type: coffee Number of servings: 1 what type of physical activity do you participate in: other details: treadmill frequency: daily ROS ROS Narrative 10 systems were reviewed with pertinent positives as noted in the HPI above. Physical Exam Const alert and no apparent distress General Appearance: cooperative HEENT normocephalic, head/scalp atraumatic and moist oral mucous membranes Eyes PERRL, EOMs intact bilaterally and conjunctivae normal Neck supple General: trachea midline Chest inspection of chest normal Resp normal respiratory effort Auscultation: Negative for rales, rhonchi or wheezes Cardio Cardio Narrative: Irregularly irregular Rhythm: abnormal rhythm GI normal to inspection, nondistended, normoactive bowel sounds Extremity General Extremity: edema bilateral lower extremity; Negative for clubbing Skin no rashes or lesions noted Neuro CN's II-XII intact bilaterally, moves all extremities and no focal motor deficits Psych cooperative and affect normal Lab / Micro Data 08/30/23 05:20 08/30/23 05:20 Labs: Laboratory Results - last 24 hr 08/29/23 09:39: WBC 24.7 H, RBC 4.05 L, Hgb 12.0 L, Hct 36.9 L, MCV 91.1, MCH 29.6, MCHC 32.5, RDW Std Deviation 47.2 H, RDW Coeff of Kiersten 14.1, Plt Count 308, MPV 11.1, Immature Gran % (Auto) 0.800, Neut % (Auto) 90.5 H, Lymph % (Auto) 2.9 L, [place] % (Auto) 4.9, Eos % (Auto) 0.5, Baso % (Auto) 0.4, Absolute Neuts (auto) 22.4 H, Absolute Lymphs (auto) 0.72 L, Nucleated RBC % 0, Differential Comment SCANNED, PT Cancelled, INR Cancelled, APTT Cancelled, Sodium 135 L, Potassium 4.2, Chloride 105, Carbon Dioxide 18.0 L, Anion Gap 12, BUN 60 H, Creatinine 2.22 H, Estim Creat Clear Calc 23.09, Est GFR (MDRD) Af Amer 37 L, Est GFR (MDRD) Non-Af 30 L, BUN/Creatinine Ratio 27.0 H, Glucose 119 H, Calcium 8.5, Total Bilirubin 1.40 H, AST 31, ALT 45, Alkaline Phosphatase 115, Troponin I High Sens 144 H*, B-Natriuretic Peptide 226.2 H, Total Protein 7.4, Albumin 2.9 L, Globulin 4.5 H, Albumin/Globulin Ratio 0.6 L 08/29/23 10:04: PT 21.5 H, INR 1.9, APTT 30.9 08/29/23 10:31: Lactic Acid 1.1 08/29/23 11:30: Procalcitonin 0.56 H 08/29/23 11:31: Urine Color Yellow, Urine Clarity Clear, Urine pH 6.0, Ur Specific [place] 1.015, Urine Protein 30 H, Urine Glucose (UA) Normal, Urine Ketones 5 H, Urine Occult Blood 10 H, Urine Nitrite Negative, Urine Bilirubin Negative, Urine Urobilinogen Normal, Ur Leukocyte Esterase Negative, Urine RBC 0 SEEN, Urine WBC 0 SEEN, Ur Squamous Epith Cells 0 SEEN, Urine Bacteria 0 SEEN, Urine Mucus 0 SEEN 08/29/23 13:25: POC Glucose 102 08/29/23 13:28: Troponin I High Sens 168 H* 08/29/23 16:00: Troponin I High Sens 164 H* 08/29/23 18:53: POC Glucose 172 H 08/29/23 19:23: Lactic Acid 1.7, Troponin I High Sens 185 H* 08/29/23 20:40: MRSA (PCR) POSITIVE H 08/29/23 21:29: POC Glucose 104 08/30/23 05:20: WBC 15.1 H, RBC 3.19 L, Hgb 9.5 L, Hct 30.0 L, MCV 94.0, MCH 29.8, MCHC 31.7 L, RDW Std Deviation 48.8 H, RDW Coeff of Kiersten 14.0, Plt Count 221, MPV 11.2, Immature Gran % (Auto) 0.900, Neut % (Auto) 85.2 H, Lymph % (Auto) 6.5 L, [place] % (Auto) 6.5, Eos % (Auto) 0.6, Baso % (Auto) 0.3, Absolute Neuts (auto) 12.9 H, Absolute Lymphs (auto) 0.98, Nucleated RBC % 0, PT 25.7 H, INR 2.3 Micro: Microbiology 08/29/23 11:40 Mucosa - Nasopharyngeal Respiratory Panel (PCR) - Final 08/29/23 09:42 Mucosa - Nose SARS-CoV-2, Influenza & RSV (PCR) - Final Imagaing Radiology Impression Chest X-Ray 08/29/23 09:37 IMPRESSION: Stable mild pulmonary vascular congestion. Electronically Signed: Carloz Cortez MD at 10:54 EST , Chest CT 08/29/23 11:16 IMPRESSION: 1. Persistent or recurrent bilateral groundglass opacities/infiltrates could be due to pulmonary edema. 2. Small bilateral pleural effusions. 3. Few mediastinal nodes could be reactive. 4. Cholelithiasis. Electronically Signed: Mj Rice MD at 12:53 EST , Charges/Coding Visit Charges Inpatient E&M: 06929 Init Hosp L3
[2023-08-30 06:17] LABS: ALB/GLOB Ratio 0.6 RATIO (0.9-2.4); AST(SGOT) 25 U/L (15-37); Alanine Aminotransfer ALT/SGPT 37 U/L (16-61); Albumin, Serum 2.3 g/dL (3.2-5.0); Alkaline Phosphatase 85 U/L (45-117); Anion Gap 8 (5-15); BUN 61 mg/dL (7-18); BUN/Creat Ratio 26.4 RATIO (10-20); Chloride 110 mmol/L (98-107); Creatinine, Serum 2.31 mg/dL (0.70-1.30); EST Glomerular Filtration Rate 29 mL/min (>60); Est Glom Filt Rate - Afr Amer 35 mL/min (>60); Estimated Creatinine Clearance 22.19 ml/min; Globulin 3.7 g/dL (2.2-4.2); Glucose 66 mg/dL (74-106); Magnesium 2.1 mg/dL (1.6-2.6); Phosphorus 3.6 mg/dL (2.5-4.9); Potassium 3.2 mmol/L (3.5-5.1); Sodium Level 141 mmol/L (136-145); Thyroid Stim Hormone (TSH) 0.59 uIU/mL (0.358-3.74)
[2023-08-30 07:06] LABS: Bedside Glucose 79 mg/dL (74-106)
--- NOTE | 2023-08-30 08:20 | PCM.CONS.R ---
Assessment & Plan Assessment/Plan (1) Chronic kidney disease, stage 4 (severe): (2) Essential (primary) hypertension: (3) Acute hypoxic respiratory failure: PLAN: Plan Impression/Plan: The patient is an 78-year-old man with past history of chronic kidney disease stage G4, type 2 diabetes mellitus, hypertension, CAD, HFpEF (EF 55% on echocardiogram from 08/19/2023), KIMBERLY, pulmonary hypertension, BPH, and hyperlipidemia. The patient presented to hospital on 08/29/2023 with dyspnea. The patient was just admitted to hospital between 08/25/2023 until 08/28/2023 with acute hypoxic respiratory failure attributed to heart failure exacerbation. The patient was admitted to hospital for recurrent acute hypoxic respiratory although etiology for current respiratory failure is is continuing to be worked up. Nephrology is following for chronic kidney disease. Chronic kidney disease stage G4/A2. 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 The patient has baseline serum creatinine of 2.3 to 2.5 mg/dL. Renal function continues to be close to baseline. Therefore, I am okay with continuing current treatment with IV bumetanide. We will continue to monitor renal function while the patient is being diuresed. I will also monitor urine output. I asked RN to check postvoid residual today given his history of BPH. If postvoid residual is greater than 350 mL, I may check renal ultrasound. There is no current need for kidney replacement therapy. Acute hypoxic respiratory failure. I suspect dyspnea and hypoxemia is multifactorial. The patient does have a history of pulmonary hypertension with possible right heart failure. The patient also has leukocytosis and hypotension overnight requiring transfer to ICU. Therefore, he is being covered for possible lower respiratory tract infection with antimicrobial. Currently, the patient appears to be clinically improved with better BP and is on room air with SpO2 of greater than 92%. As discussed above, I am okay with continuing IV piretanide from nephrology standpoint. Nephrology plan was discussed with Dr. Regina Valentine. HPI Consult Data Date of Consult: 08/30/23 HPI Narrative Reason for Consultation: Acute kidney injury on chronic kidney disease HPI Narrative: The patient is an 78-year-old man with past history of chronic kidney disease stage G4, type 2 diabetes mellitus, hypertension, CAD, HFpEF (EF 55% on echocardiogram from 08/19/2023), KIMBERLY, pulmonary hypertension, and hyperlipidemia. The patient presented to hospital on 08/29/2023 with dyspnea which woke him up from sleep. The patient was just admitted to the hospital between 08/25/2023 until 08/28/2023 for heart failure exacerbation. The patient also has lower extremity edema which has not any worse than when he left the hospital on 08/28/2023. Nephrology is asked see the patient because of chronic kidney disease. The patient is followed in our office by my partner, Dr. Barahona. Baseline serum creatinine has been around 2.3 to 2.5 mg/dL. The patient presented with serum creatinine of 2.22 mg/dL which is increased to 2.31 mg/dL today. Overnight on 08/28/2023, the patient was given 1 L of normal saline bolus because of hypotension. He is now back on IV bumetanide. The patient feels better today. He denies current dyspnea at rest. He denies chest pain or pressure. There is no nausea or vomiting although his BM has been loose. The patient does have chronic lower extremity edema which has improved since admission. There was only 390 mL of urine recorded in the last 24 hours. However, the patient was transferred from PCU to ICU yesterday so urine output may have been inaccurately documented. The patient does have subjective decrease in urine output. He denies urinary hesitation or dribbling. The patient does have history of BPH. [facility] Medical History (Updated 08/30/23 @ 08:[address] Yvan Bay MD) Abnormal ankle brachial index (LOKI) Acute hypoxic respiratory failure Anemia due to stage 3b chronic kidney disease Back pain BPH (benign prostatic hyperplasia) Cardiology follow-up encounter CHF NYHA class III Chronic combined systolic and diastolic CHF (congestive heart failure) Chronic kidney disease, stage 3b Claudication Constipation CPAP (continuous positive airway pressure) dependence Diabetes Diarrhea Dietary restriction Elevated troponin (01/2021) Essential (primary) hypertension Gout Heartburn History of echocardiogram History of edema History of irregular heartbeat History of non-ST elevation myocardial infarction (NSTEMI) (07/25/21) History of pain when walking History of steroid therapy History of tobacco use HLD (hyperlipidemia) Hypertension Hypertrophic cardiomyopathy Hypokalemia Joint pain Lactic acidosis Left bundle branch block Leg cramps Leukocytosis Longstanding persistent atrial fibrillation Mitral valve insufficiency Night sweats 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 Obesity (BMI 30.0-34.9) KIMBERLY (obstructive sleep apnea) Persistent atrial fibrillation Poor appetite Presence of implantable pulmonary artery pressure and heart rate monitoring system (03/25/21) Renal infarct Restless legs Secondary pulmonary arterial hypertension Shortness of breath on exertion Wears glasses Home Medications finasteride 5 mg tablet 5 mg PO DAILY prostate 12/19/20 [History Last Taken 12/22/20] glimepiride 1 mg tablet 1 mg PO DAILY diabetes 02/13/21 [History Last Taken Unknown] warfarin 2.5 mg tablet See Rx Instructions PO .COMPLEX blood thinner 03/11/21 [History Last Taken 05/31/22] cyanocobalamin (vitamin B-12) 1,000 mcg tablet (Vitamin B-12) 1,000 mcg PO DAILY supplement 06/26/22 [History Last Taken Unknown] carvedilol 6.25 mg tablet 6.25 mg PO BID #60 tabs 05/13/23 [Rx Last Taken Unknown] furosemide 40 mg tablet (Lasix) 40 mg PO BID #180 tabs 05/20/23 [Rx Last Taken Unknown] amlodipine 5 mg tablet 5 mg PO DAILY #90 tabs 07/07/23 [Rx Last Taken Unknown] metolazone 2.5 mg tablet 2.5 mg PO .Thursday and #8 tabs 08/28/23 [Rx Last Taken Unknown] dapagliflozin propanediol 10 mg tablet (Farxiga) 10 mg PO DAILY diabetes 08/29/23 [History Last Taken Unknown] gabapentin 100 mg capsule 100 mg PO QHS unsure 08/29/23 [History Last Taken Unknown] lisinopril 20 mg tablet 20 mg PO DAILY bp 08/29/23 [History Last Taken Unknown] pantoprazole 40 mg tablet,delayed release 40 mg PO DAILY prevent stomach ulcers 08/29/23 [History Last Taken Unknown] warfarin 3 mg tablet (Jantoven) 3 mg PO .COMPLEX blood thinner 08/29/23 [History Last Taken Unknown] Allergy/AdvReac Type Severity Reaction Status Date / Time rivaroxaban [From Xarelto] Allergy Bleeding Verified 08/25/23 12:56 metoprolol AdvReac bradycardia Verified 08/25/23 12:56 Family History Father Heart disease Sister Heart disease Brother Heart disease Other Arthritis CVA (cerebral vascular accident) Depression Mental disorder Surgical History History of appendectomy History of cataract extraction History of left heart catheterization (02/19/21) History of transurethral resection of prostate (01/2019) History of ventricular septal myectomy (2000) Hx of umbilical hernia repair Social History Smoking Status: Former smoker how long ago did patient quit smokin years ago 0.25ppd second hand exposure: Yes alcohol intake: never caffeine: Yes Type: coffee Number of servings: 1 what type of physical activity do you participate in: other details: treadmill frequency: daily ROS ROS Narrative Constitutional: There is no weight loss. The patient complains of fatigue and malaise. HEENT: No visual change, double vision, scotomas. No rhinorrhea, epistaxis, or sinus pain. No tinnitus or hearing loss. No sore throat, odynophagia or gingival bleeding. Cardiovascular: No chest pain, palpitation, or claudication. The patient does have shortness of breath at rest along with edema of the lower extremities. Respiratory: No cough, sputum, wheeze, or hemoptysis. Gastrointestinal: No abdominal pain, dysphagia, anorexia, nausea, vomiting, diarrhea, constipation, obstipation, hematemesis, hematochezia, melena, or tenesmus. Genitourinary: No incontinence, dysuria, gross hematuria, polyuria, or hesitancy. Musculoskeletal: No stiffness, pain, joint swelling, decreased range of motion, crepitus, or functional deficit. Integumentary: No pruritus, rash, striae, wound, incision, acanthosis, tumors, or eczema. Neurological: No change in sight, smell, hearing, taste. There is no seizure, headache, numbness, poor balance, speech problem, cognitive disturbance. Psychiatric: No depression, anxiety, paranoia, anhedonia, or tonie. Endocrine: No temperature intolerance, polydipsia, polyuria, polyphagia. Hematologic: No purpura, petechia, prolonged bleeding, or blood clots. Physical Exam Narrative General: Alert and oriented x3, NAD. HEENT: Normocephalic, atraumatic. Mucous membrane moist without erythema. PERRLA, EOMI. Hearing is intact. Neck: Supple, no JVD. Trachea is midline. No thyromegaly or lymphadenopathy. Cardiovascular: Normal S1, S2. No rubs, murmurs, or gallops. Respiratory: Lungs are clear to auscultation bilaterally. No wheezing, rhonchi, or rales. Abdomen: Normal bowel sounds, soft, nontender, no guarding or rebound, no organomegaly. Extremities: No clubbing or cyanosis. There is 2+ lower extremity edema. Musculoskeletal: Full passive range of motion, no joint swelling. Psychiatric: Normal mood and affect. Skin: Warm and dry, no rash. Neurologic: Cranial nerve II to XII are grossly intact. No focal neurologic deficits. Lab / Micro Data 08/30/23 05:20 08/30/23 05:20 Labs: Laboratory Results - last 24 hr 08/29/23 09:39: WBC 24.7 H, RBC 4.05 L, Hgb 12.0 L, Hct 36.9 L, MCV 91.1, MCH 29.6, MCHC 32.5, RDW Std Deviation 47.2 H, RDW Coeff of Kiersten 14.1, Plt Count 308, MPV 11.1, Immature Gran % (Auto) 0.800, Neut % (Auto) 90.5 H, Lymph % (Auto) 2.9 L, [place]ult[place] % (Auto) 4.9, Eos % (Auto) 0.5, Baso % (Auto) 0.4, Absolute Neuts (auto) 22.4 H, Absolute Lymphs (auto) 0.72 L, Nucleated RBC % 0, Differential Comment SCANNED, PT Cancelled, INR Cancelled, APTT Cancelled, Sodium 135 L, Potassium 4.2, Chloride 105, Carbon Dioxide 18.0 L, Anion Gap 12, BUN 60 H, Creatinine 2.22 H, Estim Creat Clear Calc 23.09, Est GFR (MDRD) Af Amer 37 L, Est GFR (MDRD) Non-Af 30 L, BUN/Creatinine Ratio 27.0 H, Glucose 119 H, Calcium 8.5, Total Bilirubin 1.40 H, AST 31, ALT 45, Alkaline Phosphatase 115, Troponin I High Sens 144 H*, B-Natriuretic Peptide 226.2 H, Total Protein 7.4, Albumin 2.9 L, Globulin 4.5 H, Albumin/Globulin Ratio 0.6 L 08/29/23 10:04: PT 21.5 H, INR 1.9, APTT 30.9 08/29/23 10:31: Lactic Acid 1.1 08/29/23 11:30: Procalcitonin 0.56 H 08/29/23 11:31: Urine Color Yellow, Urine Clarity Clear, Urine pH 6.0, Ur Specific Mcbrides 1.015, Urine Protein 30 H, Urine Glucose (UA) Normal, Urine Ketones 5 H, Urine Occult Blood 10 H, Urine Nitrite Negative, Urine Bilirubin Negative, Urine Urobilinogen Normal, Ur Leukocyte Esterase Negative, Urine RBC 0 SEEN, Urine WBC 0 SEEN, Ur Squamous Epith Cells 0 SEEN, Urine Bacteria 0 SEEN, Urine Mucus 0 SEEN 08/29/23 13:25: POC Glucose 102 08/29/23 13:28: Troponin I High Sens 168 H* 08/29/23 16:00: Troponin I High Sens 164 H* 08/29/23 18:53: POC Glucose 172 H 08/29/23 19:23: Lactic Acid 1.7, Troponin I High Sens 185 H* 08/29/23 20:40: MRSA (PCR) POSITIVE H 08/29/23 21:29: POC Glucose 104 08/30/23 05:20: WBC 15.1 H, RBC 3.19 L, Hgb 9.5 L, Hct 30.0 L, MCV 94.0, MCH 29.8, MCHC 31.7 L, RDW Std Deviation 48.8 H, RDW Coeff of Kiersten 14.0, Plt Count 221, MPV 11.2, Immature Gran % (Auto) 0.900, Neut % (Auto) 85.2 H, Lymph % (Auto) 6.5 L, [place] % (Auto) 6.5, Eos % (Auto) 0.6, Baso % (Auto) 0.3, Absolute Neuts (auto) 12.9 H, Absolute Lymphs (auto) 0.98, Nucleated RBC % 0, PT 25.7 H, INR 2.3, Sodium 141, Potassium 3.2 L, Chloride 110 H, Carbon Dioxide 23.0, Anion Gap 8, BUN 61 H, Creatinine 2.31 H, Estim Creat Clear Calc 22.19, Est GFR (MDRD) Af Amer 35 L, Est GFR (MDRD) Non-Af 29 L, BUN/Creatinine Ratio 26.4 H, Glucose 66 L, Calcium 8.0 L, Phosphorus 3.6, Magnesium 2.1, Total Bilirubin 1.50 H, AST 25, ALT 37, Alkaline Phosphatase 85, Total Protein 6.0 L, Albumin 2.3 L, Globulin 3.7, Albumin/Globulin Ratio 0.6 L, TSH 0.59 08/30/23 06:48: POC Glucose 79 Micro: Microbiology 08/30/23 07:15 Urine, Random Legionella Antigen - Final 08/30/23 07:15 Urine, Random Streptococcus pneumoniae Antigen (M - Final 08/29/23 11:40 Mucosa - Nasopharyngeal Respiratory Panel (PCR) - Final 08/29/23 09:42 Mucosa - Nose SARS-CoV-2, Influenza & RSV (PCR) - Final Imagaing Radiology Impression Chest X-Ray 08/29/23 09:37 IMPRESSION: Stable mild pulmonary vascular congestion. Electronically Signed: Carloz Cortez MD at 10:54 EST , Chest CT 08/29/23 11:16 IMPRESSION: 1. Persistent or recurrent bilateral groundglass opacities/infiltrates could be due to pulmonary edema. 2. Small bilateral pleural effusions. 3. Few mediastinal nodes could be reactive. 4. Cholelithiasis. Electronically Signed: Mj Rice MD at 12:53 EST ,
[2023-08-30] MEDS: Potassium Chloride Oral Tablet 20 MEQ 40 MEQ PO (09:18)
[2023-08-30] MEDS: Finasteride 5 MG Tablet PO (09:21)
[2023-08-30] MEDS: Pantoprazole Sodium 40 MG Tablet PO (09:21)
[2023-08-30] MEDS: Cyanocobalamin 500 MCG Tablet 1000 MCG PO (09:22)
[2023-08-30] MEDS: Cholecalciferol (VIT D3) 25 MCG TABLET (1,000 UNITS) PO (09:22)
[2023-08-30] MEDS: Bumetanide 1 MG/4 ML Vial IV ×2 (09:23→18:02)
[2023-08-30] MEDS: 0.9% Saline Lock 10 ML Syringe IV ×4 (09:23→20:20)
[2023-08-30 12:43] LABS: Bedside Glucose 62 mg/dL (74-106)
[2023-08-30 12:47] LABS: Bedside Glucose 107 mg/dL (74-106)
--- NOTE | 2023-08-30 13:19 | PCM.PN.HOSP ---
Reason for Visit Reason for Visit: Shortness of breath Subjective Subjective Breathing is much improved. Blood pressures are stable and never required pressors. No further fever than that isolated event yesterday. I do question now whether he even had a fever and his blood pressures were low since he was so stable after transfer. Clinically he states he feels much better but however gets fairly winded with exertion. I did discuss with he and his daughter, who is at the bedside, his diastolic dysfunction and pulmonary hypertension which are the etiology for his heart failure and this is complicated by his kidney function. I discussed the plan to continue current antibiotics until cultures are obtained and if they are negative to discontinue and to continue diuresis with follow-up with pulmonary and nephrology. Objective Data Objective Data Vital Signs: Vital Signs Temp Pulse Resp BP Pulse Ox O2 Del Method O2 Flow Rate 97.2 F L 76 15 123/64 H 94 Room Air 2 08/30/23 12:30 08/30/23 12:30 08/30/23 12:30 08/30/23 12:30 08/30/23 12:30 08/30/23 12:30 08/30/23 07:25 FiO2 35 08/29/23 15:20 Oxygen Flow Rate (L/min) 2 Oxygen Delivery Method Room Air Weight: 84.5 kg Body Mass Index (BMI) 31.0 Intake & Output: Intake and Output for Last 24 Hours 08/28/23 08/29/23 08/30/23 23:59 23:59 23:59 Intake Total 2170 / 2170 580 / 580 Output Total 540 / 540 Balance 2169 40 / 40 Lab / Micro Data 08/30/23 05:20 08/30/23 05:20 Labs: Laboratory Results - last 24 hr 08/29/23 13:25: POC Glucose 102 08/29/23 13:28: Troponin I High Sens 168 H* 08/29/23 16:00: Troponin I High Sens 164 H* 08/29/23 18:53: POC Glucose 172 H 08/29/23 19:23: Lactic Acid 1.7, Troponin I High Sens 185 H* 08/29/23 20:40: MRSA (PCR) POSITIVE H 08/29/23 21:29: POC Glucose 104 08/30/23 05:20: WBC 15.1 H, RBC 3.19 L, Hgb 9.5 L, Hct 30.0 L, MCV 94.0, MCH 29.8, MCHC 31.7 L, RDW Std Deviation 48.8 H, RDW Coeff of Kiersten 14.0, Plt Count 221, MPV 11.2, Immature Gran % (Auto) 0.900, Neut % (Auto) 85.2 H, Lymph % (Auto) 6.5 L, [place] % (Auto) 6.5, Eos % (Auto) 0.6, Baso % (Auto) 0.3, Absolute Neuts (auto) 12.9 H, Absolute Lymphs (auto) 0.98, Nucleated RBC % 0, PT 25.7 H, INR 2.3, Sodium 141, Potassium 3.2 L, Chloride 110 H, Carbon Dioxide 23.0, Anion Gap 8, BUN 61 H, Creatinine 2.31 H, Estim Creat Clear Calc 22.19, Est GFR (MDRD) Af Amer 35 L, Est GFR (MDRD) Non-Af 29 L, BUN/Creatinine Ratio 26.4 H, Glucose 66 L, Calcium 8.0 L, Phosphorus 3.6, Magnesium 2.1, Total Bilirubin 1.50 H, AST 25, ALT 37, Alkaline Phosphatase 85, Total Protein 6.0 L, Albumin 2.3 L, Globulin 3.7, Albumin/Globulin Ratio 0.6 L, TSH 0.59 08/30/23 06:26: POC Glucose 62 L 08/30/23 06:48: POC Glucose 79 08/30/23 12:28: POC Glucose 107 H Micro: Microbiology 08/30/23 07:15 Urine, Random Legionella Antigen - Final 08/30/23 07:15 Urine, Random Streptococcus pneumoniae Antigen (M - Final 08/29/23 11:40 Mucosa - Nasopharyngeal Respiratory Panel (PCR) - Final 08/29/23 09:42 Mucosa - Nose SARS-CoV-2, Influenza & RSV (PCR) - Final Physical Exam Const alert, oriented x3, no apparent distress and well nourished; Negative for average body habitus or healthy appearing Constitutional Narrative: Elderly, obese, white male, sitting up in bed, family at bedside, patient is now on room air, no conversational dyspnea, appears comfortable, nontoxic General Appearance: cooperative HEENT normocephalic, head/scalp atraumatic and moist oral mucous membranes HEENT Narrative: Dentition is fair for age, Mallampati is 3, no thrush Eyes PERRL, EOMs intact bilaterally and conjunctivae normal Neck no lymphadenopathy and supple Neck Narrative: neck is short and thick, trachea midline, no thyroid enlarged noted Resp No normal respiratory effort, no retractions, no use of accessory muscles and No clear to auscultation bilaterally Resp Narrative: Few scattered crackles however improving overall and crackles current line noted minimally in the bases bilaterally Auscultation: crackles; Negative for rhonchi or wheezes Cardio regular rate, S1 normal heart sound, S2 normal heart sound, no murmurs, no rub, no gallops and no clicks Cardio Narrative: Irregularly irregular rhythm with regular rate GI normal to inspection, nondistended, normoactive bowel sounds, soft to palpation and non-tender Extremity Extremity Narrative: 2+ pitting edema bilateral lower extremities, no cyanosis or clubbing Skin no wounds, skin turgor normal, no jaundice, no petechiae and no mottling Skin Narrative: Skin is pale Neuro oriented x3, moves all extremities and no focal motor deficits Speech: speech normal Psych Psych Narrative: Eye contact is good, calm, interacts appropriately Mood & Affect: anxious Assessment & Plan Assessment/Plan (1) Subtherapeutic international normalized ratio (INR): (2) Pulmonary artery hypertension: (3) Grade III diastolic dysfunction: (4) Mitral valve insufficiency: (5) Leukocytosis: (6) Acute hypoxic respiratory failure: PLAN: Plan Acute hypoxic respiratory failure secondary to acute exacerbation diastolic heart failure/right-sided heart failure -Echo done on 08/27/2023 showed biatrial enlargement, moderate mitral valve insufficiency, moderate pulmonary artery hypertension, stage III diastolic dysfunction and an EF of 50 to 55% -Patient has been weaned to room air at rest -Patient does have CardioMEMS device -Restart Bumex 1 mg twice daily IV -Fluid restriction -Sodium restriction -Daily weights -Virgilio bandages lower extremities -CPAP at night -CT of the chest shows groundglass changes diffusely bilaterally -Previously had elevated autoimmune titers with follow-up pending -Pulmonary/critical care medicine following-appreciate input--> Case discussed with Dr. Mireles Sepsis -Patient met sepsis criteria yesterday however trying to rule out sepsis at this point -Potential source would include pneumonia and possible bacteremia -If cultures are negative will rule out sepsis and stop antibiotics -Patient met sepsis with Sep 1 guidelines for Medicare with leukocytosis, fever, tachycardia, tachypnea and respiratory distress -Continue to monitor Leukocytosis -Trending down -Flu and COVID rapid are negative -Respiratory viral panel is unremarkable -Strep pneumo and Legionella antigens were negative during last hospital stay-no need to repeat -Highly suspect this is reactive based on his hypoxia due to the fact that he is not having fever, chills, sputum production or any significant cough -Continue vancomycin and Zosyn and await cultures -Repeat CBC in a.m. -Continue to monitor Hypokalemia -Potassium replacement given -Repeat lab in a.m. -Magnesium levels within normal limits at 2.1 Subtherapeutic INR -Goal is 2-3 -Current INR is 2.3 -Continue Coumadin 3 mg daily -Repeat INR in a.m. Chronic normocytic anemia secondary to CKD -Normocytic -Hemoglobin is overall stable -Suspect related to chronic renal disease Persistent atrial fibrillation -Continue Coumadin 3 mg -INR is now therapeutic -Continue home carvedilol DM-2 -Hemoglobin A1c on 07/07/2023 was 6.2 -Continue home Farxiga hold other home oral agents -SSI -Cardiac/carb controlled diet -Accu-Cheks as ordered CKD stage IIIb -Baseline serum creatinine appears to run between 2.0 and 2.5 -Check renal duplex due to selective atrophy to the right kidney on most recent ultrasound -Will be done on Thursday -Avoid nephrotoxins as able -Nephrology following-discussed case with Dr. Pinedo Hypertension -Hold amlodipine -Hold carvedilol -Hold lisinopril -Antihypertensives on hold due to hypotensive episodes yesterday we will continue to monitor and restart as able will likely reinitiate beta-ceferino first, then VIRGILIO inhibitor and then calcium channel ceferino -Bumex as above BPH with obstruction -Continue home finasteride History of KIMBERLY -Continue CPAP -Patient is compliant at baseline Obesity -BMI 31.0 -Recommend weight loss -Complicates treatment, prognosis, outcomes DVT prophylaxis -Stop subcu heparin -INR is now therapeutic at 2.3 CODE STATUS -DNR CCA with no intubation as verified on admission Charges/Coding Visit Charges Inpatient E&M: 93267 Subs Hosp L2
[2023-08-30 18:28] LABS: Bedside Glucose 85 mg/dL (74-106)
[2023-08-30] MEDS: Vancomycin IV 1,000 MG/200 ML BAG 200 MG IV (20:16)
[2023-08-30] MEDS: Gabapentin 100 MG Capsule PO (21:18)
[2023-08-30] MEDS: Carvedilol 6.25 MG Tablet PO (21:18)
[2023-08-30 22:25] LABS: Bedside Glucose 151 mg/dL (74-106)
[2023-08-30] MEDS: MELATONIN 3 MG TABLET PO (23:02)
[2023-08-31 03:04] VITALS: BP 118/65; PULSE 67; RESP 15; TEMP 36.2; O2SAT 97
[2023-08-31 04:36] VITALS: BMI 30.9
[2023-08-31] MEDS: Piperacil/Tazobactam 3.375 GM in 0.9% Normal Saline (50mL MB+) 50 ML IV (05:44)
[2023-08-31 06:42] LABS: Absolute Lymphocyte Count 0.91 X10^3/uL (0.83-4.51); Absolute Neutrophil Count 6.4 X10^3/uL (2.0-7.7); Basophil# 0.08 X10^3/uL; Basophil% 0.9 % (0-1); Eosinophil# 0.27 X10^3/uL; Eosinophils% 3.1 % (0-5); Hematocrit 30.7 % (40-54); Hemoglobin 9.3 g/dL (13.0-16.5); Lymphocyte # 0.91 X10^3/ul (0.83-4.51); Lymphocyte % 10.4 % (19-41); Mean Corp Hgb Conc 30.3 g/dL (32-36); Mean Corpuscular Hgb 28.7 pg (27.0-32.0); Mean Corpuscular Volume 94.8 fL (80-94); Mean Platelet Vol. 11.1 fl (6.2-12.0); Monocyte# 0.96 X10^3/uL; NRBC Flagged by Analyzer 0 % (0-5); Neutrophil # 6.44 X10^3/uL (2.7-7.7); Neutrophil % 73.7 % (47-70); Platelet Count 221 K/mm3 (150-450); RBC Distribution Width CV 14.2 % (11.6-14.6); RBC Distribution Width SD 49.4 fl (35.1-43.9); Red Blood Count 3.24 M/mm3 (4.6-6.2); White Blood Count 8.7 K/mm3 (4.4-11.0)
[2023-08-31 06:55] LABS: International Normalized Ratio 1.9; Prothrombin Time (Protime)PT. 21.6 SECONDS (11.7-14.9)
[2023-08-31 07:08] LABS: Albumin, Serum 2.2 g/dL (3.2-5.0); Anion Gap 6 (5-15); BUN 55 mg/dL (7-18); BUN/Creat Ratio 24.1 RATIO (10-20); Calcium,Total 8.7 mg/dL (8.5-10.1); Chloride 112 mmol/L (98-107); Creatinine, Serum 2.28 mg/dL (0.70-1.30); EST Glomerular Filtration Rate 30 mL/min (>60); Est Glom Filt Rate - Afr Amer 36 mL/min (>60); Estimated Creatinine Clearance 22.48 ml/min; Glucose 84 mg/dL (74-106); Phosphorus 3.1 mg/dL (2.5-4.9); Potassium 3.7 mmol/L (3.5-5.1); Sodium Level 139 mmol/L (136-145)
[2023-08-31 07:10] LABS: Bedside Glucose 90 mg/dL (74-106)
[2023-08-31 07:44] VITALS: O2SAT 94
--- NOTE | 2023-08-31 08:28 | PN.CC_ITS ---
Assessment & Plan Assessment/Plan (1) Hypoxia: PLAN: Plan RECOMMENDATIONS: 1. Okay from my perspective to discontinue antibiotics. 2. Continue Coumadin and check INR daily. 3. Supplemental oxygen, if needed, to maintain saturations at or above 90%. 4. Continue gentle diuresis as tolerated by hemodynamics and renal function. 5. Encourage incentive spirometer use and mobilize patient as tolerated. 6. Will sign off from a pulmonary/critical care perspective. Please call with any additional questions. IMPRESSIONS: 1. Sepsis Potential source could include pneumonia. The patient did have one isolated low blood pressure reading, which responded to IV fluid resuscitation. He remains hemodynamically stable and is maintaining appropriate oxygen saturations on room air. At this time, I have a low clinical index of suspicion that the patient has underlying pneumonia. Therefore, I would advocate for discontinuation of a ntibiotics and to continue to monitor the patient clinically. 2. Shortness of breath and hypoxemia Exact etiology is unclear. However, this is most likely secondary to his underlying diastolic dysfunction and pulmonary hypertension. The patient does have ground glass opacities on chest imaging, with a differential including infectious and inflammatory etiologies, along with edema. His presenting hypoxemia has resolved. Recommend continuing baseline diuretic regimen if feasible. Given that it does appear that he had a positive KAILA screen, we will plan to repeat his autoimmune workup as well. Encourage incentive spirometer use and mobilize patient as tolerated. 3. Chronic atrial fibrillation/diabetes mellitus/anemia/chronic kidney disease/history of obstructive sleep apnea/obesity Complicates care, management, recovery and prognosis. Continue current supportive care along with nocturnal PAP therapy per home regimen. This note was generated with [email or web address] dictation software. It may contain incorrect words, spelling, and punctuation that were not noted in checking the note before signing. Subjective Subjective The patient was seen and examined at the bedside this morning. Events from the last 24 hours have been reviewed. The patient is currently afebrile, hemodynamically stable and maintaining appropriate oxygen saturations on room air. The patient is feeling well this morning. He does endorse baseline exertional shortness of breath. Objective Data Objective Data The patient's most recent lab work, culture data and imaging studies have all been personally reviewed. Vital Signs: Vital Signs Temp Pulse Resp BP Pulse Ox O2 Del Method O2 Flow Rate 97.1 F L 67 15 118/65 97 CPAP 2 08/31/23 03:04 08/31/23 03:04 08/31/23 03:04 08/31/23 03:04 08/31/23 03:04 08/31/23 03:06 08/30/23 07:25 FiO2 35 08/29/23 15:20 Oxygen Flow Rate (L/min) 2 Oxygen Delivery Method CPAP Weight: 185 lb 10.067 oz Body Mass Index (BMI) 30.9 Intake & Output: Intake and Output for Last 24 Hours 08/29/23 08/30/23 08/31/23 23:59 23:59 23:59 Intake Total 2170 / 2170 1310 / 1310 50 / 50 Output Total 1615 / 1865 550 / 550 Balance 2169 -305 / -555 -500 / -500 Lab / Micro Data Attestation: I reviewed the patient's lab results. 08/31/23 06:10 08/31/23 06:10 Labs: Laboratory Results - last 24 hr 08/30/23 06:26: POC Glucose 62 L 08/30/23 12:28: POC Glucose 107 H 08/30/23 18:00: POC Glucose 85 08/30/23 20:33: POC Glucose 151 H 08/31/23 06:10: WBC 8.7, RBC 3.24 L, Hgb 9.3 L, Hct 30.7 L, MCV 94.8 H, MCH 28.7, MCHC 30.3 L, RDW Std Deviation 49.4 H, RDW Coeff of Kiersten 14.2, Plt Count 221, MPV 11.1, Immature Gran % (Auto) 0.900, Neut % (Auto) 73.7 H, Lymph % (Auto) 10.4 L, Nance % (Auto) 11.0 H, Eos % (Auto) 3.1, Baso % (Auto) 0.9, Absolute Neuts (auto) 6.4, Absolute Lymphs (auto) 0.91, Nucleated RBC % 0, PT 21.6 H, INR 1.9, Sodium 139, Potassium 3.7, Chloride 112 H, Carbon Dioxide 21.0, Anion Gap 6, BUN 55 H, Creatinine 2.28 H, Estim Creat Clear Calc 22.48, Est GFR (MDRD) Af Amer 36 L, Est GFR (MDRD) Non-Af 30 L, BUN/Creatinine Ratio 24.1 H, Glucose 84, Calcium 8.7, Phosphorus 3.1, Albumin 2.2 L 08/31/23 06:47: POC Glucose 90 Micro: Microbiology 08/30/23 07:15 Urine, Random Legionella Antigen - Final 08/30/23 07:15 Urine, Random Streptococcus pneumoniae Antigen (M - Final 08/29/23 11:40 Mucosa - Nasopharyngeal Respiratory Panel (PCR) - Final 08/29/23 09:42 Mucosa - Nose SARS-CoV-2, Influenza & RSV (PCR) - Final Physical Exam Const alert and no apparent distress General Appearance: cooperative HEENT normocephalic, head/scalp atraumatic and moist oral mucous membranes Eyes PERRL, EOMs intact bilaterally and conjunctivae normal Neck supple General: trachea midline Chest inspection of chest normal Resp normal respiratory effort Auscultation: Negative for rales, rhonchi or wheezes Cardio Cardio Narrative: Irregularly irregular Rhythm: abnormal rhythm GI normal to inspection, nondistended, normoactive bowel sounds Extremity General Extremity: edema bilateral lower extremity; Negative for clubbing Skin no rashes or lesions noted Neuro CN's II-XII intact bilaterally, moves all extremities and no focal motor deficits Psych cooperative and affect normal Charges/Coding Visit Charges Inpatient E&M: 38211 Subs Hosp L2
[2023-08-31 09:18] VITALS: BP 120/92; PULSE 73; RESP 14; TEMP 36.2; O2SAT 95
[2023-08-31 09:20] LABS: BNP,B-Type NATRIURETIC PEPTIDE 308.4 pg/mL (0-100)
[2023-08-31] MEDS: Bumetanide 1 MG/4 ML Vial 2 MG IV ×2 (09:21→17:03)
[2023-08-31] MEDS: Carvedilol 6.25 MG Tablet PO ×2 (09:22→22:25)
[2023-08-31] MEDS: Empagliflozin 25 MG Tablet PO (09:22)
[2023-08-31] MEDS: Finasteride 5 MG Tablet PO (09:23)
[2023-08-31] MEDS: Cholecalciferol (VIT D3) 25 MCG TABLET (1,000 UNITS) PO (09:23)
[2023-08-31] MEDS: Cyanocobalamin 500 MCG Tablet 1000 MCG PO (09:23)
[2023-08-31] MEDS: Pantoprazole Sodium 40 MG Tablet PO (09:23)
[2023-08-31] MEDS: 0.9% Saline Lock 10 ML Syringe IV (09:27)
[2023-08-31] MEDS: metOLazone 5 MG Tablet PO (11:19)
[2023-08-31 11:38] LABS: Bedside Glucose 124 mg/dL (74-106)
--- NOTE | 2023-08-31 11:44 | PN.HOSP_ITS ---
Reason for Visit Reason for Visit: Shortness of breath Subjective Subjective He has been weaned to room air and is stable on room air at rest and with exertion. Patient states he still is quite fatigued with any exertion. I reviewed his heart failure being both related to pulmonary hypertension and right-sided failure and diastolic dysfunction again today with both he and his son and answered all questions. I did discuss her ongoing diuresis plans and ho w his renal function complicates the matter. Objective Data Objective Data Vital Signs: Vital Signs Temp Pulse Resp BP Pulse Ox O2 Del Method O2 Flow Rate 97.1 F L 73 14 120/92 H 95 Room Air 2 08/31/23 09:18 08/31/23 09:18 08/31/23 09:18 08/31/23 09:18 08/31/23 09:18 08/31/23 09:18 08/30/23 07:25 FiO2 35 08/29/23 15:20 Oxygen Flow Rate (L/min) 2 Oxygen Delivery Method Room Air Weight: 84.2 kg Body Mass Index (BMI) 30.9 Intake & Output: Intake and Output for Last 24 Hours 08/29/23 08/30/23 08/31/23 23:59 23:59 23:59 Intake Total 2170 / 2170 1310 / 1310 250 / 250 Output Total 1615 / 1865 550 / 550 Balance 2169 / 2020 -305 / -555 -300 / -300 Lab / Micro Data 08/31/23 06:10 08/31/23 06:10 Labs: Laboratory Results - last 24 hr 08/30/23 06:26: POC Glucose 62 L 08/30/23 12:28: POC Glucose 107 H 08/30/23 18:00: POC Glucose 85 08/30/23 20:33: POC Glucose 151 H 08/31/23 06:10: WBC 8.7, RBC 3.24 L, Hgb 9.3 L, Hct 30.7 L, MCV 94.8 H, MCH 28.7, MCHC 30.3 L, RDW Std Deviation 49.4 H, RDW Coeff of Kiersten 14.2, Plt Count 221, MPV 11.1, Immature Gran % (Auto) 0.900, Neut % (Auto) 73.7 H, Lymph % (Auto) 10.4 L, Greenlee % (Auto) 11.0 H, Eos % (Auto) 3.1, Baso % (Auto) 0.9, Absolute Neuts (auto) 6.4, Absolute Lymphs (auto) 0.91, Nucleated RBC % 0, PT 21.6 H, INR 1.9, Sodium 139, Potassium 3.7, Chloride 112 H, Carbon Dioxide 21.0, Anion Gap 6, BUN 55 H, Creatinine 2.28 H, Estim Creat Clear Calc 22.48, Est GFR (MDRD) Af Amer 36 L, Est GFR (MDRD) Non-Af 30 L, BUN/Creatinine Ratio 24.1 H, Glucose 84, Calcium 8.7, Phosphorus 3.1, B-Natriuretic Peptide 308.4 H, Albumin 2.2 L 08/31/23 06:47: POC Glucose 90 08/31/23 11:16: POC Glucose 124 H Micro: Microbiology 08/29/23 10:59 Blood Culture (Wb) - Anticubital Left Blood Culture - Preliminary No growth in 48 hours. 08/29/23 10:31 Blood Culture (Wb) - Anticubital Left Blood Culture - Preliminary No growth in 48 hours. 08/29/23 11:31 Urine, Clean Catch Urine Culture - Final Culture exhibits no growth. 08/30/23 07:15 Urine, Random Legionella Antigen - Final 08/30/23 07:15 Urine, Random Streptococcus pneumoniae Antigen (M - Final 08/29/23 11:40 Mucosa - Nasopharyngeal Respiratory Panel (PCR) - Final 08/29/23 09:42 Mucosa - Nose SARS-CoV-2, Influenza & RSV (PCR) - Final Physical Exam Const alert, oriented x3, no apparent distress and well nourished; Negative for average body habitus or healthy appearing Constitutional Narrative: Elderly, obese, white male, sitting up on the edge of the bed bed, son at bedside, remains on room air, appears comfortable, nontoxic, no conversational dyspnea General Appearance: cooperative HEENT normocephalic, head/scalp atraumatic and moist oral mucous membranes HEENT Narrative: Mallampati 3, no thrush Resp normal respiratory effort, no retractions, no use of accessory muscles and clear to auscultation bilaterally Auscultation: Negative for crackles, rhonchi or wheezes Cardio regular rate, S1 normal heart sound, S2 normal heart sound, no murmurs, no rub, no gallops and no clicks Cardio Narrative: Irregularly irregular rhythm with regular rate GI normal to inspection, nondistended, normoactive bowel sounds, soft to palpation and non-tender Extremity Extremity Narrative: 2+ pitting edema bilateral lower extremities, no cyanosis or clubbing, Virgilio bandages in place Neuro oriented x3, moves all extremities and no focal motor deficits Speech: speech normal Psych Psych Narrative: Eye contact is good, calm, interacts appropriately Mood & Affect: anxious Assessment & Plan Assessment/Plan (1) Subtherapeutic international normalized ratio (INR): (2) Pulmonary artery hypertension: (3) Grade III diastolic dysfunction: (4) Mitral valve insufficiency: (5) Leukocytosis: (6) Acute hypoxic respiratory failure: PLAN: Plan Acute hypoxic respiratory failure secondary to acute exacerbation diastolic heart failure/right-sided heart failure/flash pulmonary edema -Echo done on 08/27/2023 showed biatrial enlargement, moderate mitral valve insufficiency, moderate pulmonary artery hypertension, stage III diastolic dysfunction and an EF of 50 to 55% -Patient has been weaned to room air at rest -Patient does have CardioMEMS device -Continue IV Bumex but increase to 2 mg IV twice daily -Metolazone 5 mg oral x 1 dose -TSH is within normal limits -Fluid restriction -Sodium restriction -Daily weights -Virgilio bandages lower extremities -CPAP at night -CT of the chest shows groundglass changes diffusely bilaterally -Previously had elevated autoimmune titers with follow-up pending -Pulmonary/critical care medicine following-appreciate input--> Case discussed with Dr. Mireles -I discussed extensively again today with the patient and his son the significant need for sodium restriction after discharge Sepsis -Patient met sepsis criteria on the day of admission however sepsis has been ruled out -Cultures are all negative -Stop antibiotics Leukocytosis -Resolved -Cultures are negative -Discontinue antibiotics -Suspect her stress response Hypokalemia -Resolved Subtherapeutic INR -Goal is 2-3 -Current INR is 1.9 down from 2.3 yesterday -Continue Coumadin 3 mg daily -Repeat INR in a.m. Chronic normocytic anemia secondary to CKD -Normocytic -Hemoglobin is overall stable -Suspect related to chronic renal disease Persistent atrial fibrillation -Continue Coumadin 3 mg -INR is slightly subtherapeutic at 1.9 -Continue home carvedilol DM-2 -Hemoglobin A1c on 07/07/2023 was 6.2 -Continue home Farxiga hold other home oral agents -SSI -Cardiac/carb controlled diet -Accu-Cheks as ordered CKD stage IIIb -Baseline serum creatinine appears to run between 2.0 and 2.5 -Check renal duplex due to selective atrophy to the right kidney on most recent ultrasound -Will be done on Thursday -Will push kidney function a bit and give increased dose of Bumex and 1 dose of metolazone -Avoid nephrotoxins as able -Nephrology following-discussed case with Dr. 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
[2023-08-31 14:33] VITALS: BP 116/80; PULSE 78; RESP 16; TEMP 36.6; O2SAT 98
[2023-08-31] MEDS: Heparin Injection (Vial) 5,000 UNIT/ML VIAL 5000 UNIT SC ×2 (14:37→22:26)
[2023-08-31 20:25] LABS: Vancomycin, Trough Level 22.8 ug/mL (5.0-15.0)
[2023-08-31] MEDS: Gabapentin 100 MG Capsule PO (22:25)
[2023-08-31] MEDS: Acetaminophen 325 MG Tablet 650 MG PO (22:26)
[2023-08-31] MEDS: MELATONIN 3 MG TABLET PO (22:26)
[2023-08-31 22:34] VITALS: BP 128/71; PULSE 71; RESP 16; TEMP 36.3; O2SAT 99
[2023-08-31 22:55] LABS: Bedside Glucose 123 mg/dL (74-106)
[2023-09-01 02:51] VITALS: BMI 30.4
[2023-09-01 03:31] VITALS: BP 101/52; PULSE 65; RESP 16; TEMP 36.7; O2SAT 96
[2023-09-01] MEDS: Heparin Injection (Vial) 5,000 UNIT/ML VIAL 5000 UNIT SC ×3 (06:17→21:43)
[2023-09-01 06:44] LABS: Bedside Glucose 92 mg/dL (74-106)
[2023-09-01 08:30] LABS: International Normalized Ratio 1.9; Prothrombin Time (Protime)PT. 21.8 SECONDS (11.7-14.9)
[2023-09-01 09:13] LABS: Anion Gap 10 (5-15); BUN 56 mg/dL (7-18); Calcium,Total 9.8 mg/dL (8.5-10.1); Chloride 105 mmol/L (98-107); Creatinine, Serum 2.55 mg/dL (0.70-1.30); EST Glomerular Filtration Rate 26 mL/min (>60); Est Glom Filt Rate - Afr Amer 31 mL/min (>60); Glucose 91 mg/dL (74-106); Magnesium 2.3 mg/dL (1.6-2.6); Potassium 3.4 mmol/L (3.5-5.1); Sodium Level 136 mmol/L (136-145)
[2023-09-01 09:45] VITALS: BP 132/86; PULSE 79; RESP 18; TEMP 36.7; O2SAT 99
[2023-09-01] MEDS: Potassium Chloride Oral Tablet 20 MEQ 40 MEQ PO (09:45)
[2023-09-01] MEDS: 0.9% Saline Lock 10 ML Syringe IV ×2 (09:45→17:32)
[2023-09-01] MEDS: Bumetanide 1 MG/4 ML Vial 2 MG IV ×2 (09:45→17:32)
[2023-09-01] MEDS: Pantoprazole Sodium 40 MG Tablet PO (09:46)
[2023-09-01] MEDS: Cyanocobalamin 500 MCG Tablet 1000 MCG PO (09:46)
[2023-09-01] MEDS: Carvedilol 6.25 MG Tablet PO ×2 (09:46→21:43)
[2023-09-01] MEDS: Cholecalciferol (VIT D3) 25 MCG TABLET (1,000 UNITS) PO (09:46)
[2023-09-01] MEDS: Empagliflozin 25 MG Tablet PO (09:47)
[2023-09-01] MEDS: Finasteride 5 MG Tablet PO (09:47)
[2023-09-01] MEDS: predniSONE 20 MG Tablet PO (10:00)
--- NOTE | 2023-09-01 10:00 | PCM.PN.REN ---
Subjective Subjective Overall better but still feels somewhat short of breath. Some peripheral edema. BNP yesterday was about 300 with a creatinine of 2.4. Objective Data Objective Data Vital Signs: Vital Signs Temp Pulse Resp BP Pulse Ox O2 Del Method O2 Flow Rate 98.0 F 79 18 132/86 H 99 Room Air 2 09/01/23 09:45 09/01/23 09:45 09/01/23 09:45 09/01/23 09:45 09/01/23 09:45 09/01/23 09:45 08/30/23 07:25 FiO2 35 08/29/23 15:20 Oxygen Flow Rate (L/min) 2 Oxygen Delivery Method Room Air Weight: 82.8 kg Body Mass Index (BMI) 30.4 Intake & Output: Intake and Output for Last 24 Hours 08/30/23 08/31/23 09/01/23 23:59 23:59 23:59 Intake Total 1310 / 1310 650 / 650 Output Total 1615 / 1865 2325 / 2325 975 / 975 Balance -305 / -555 -1675 / -1675 -975 / -975 Lab / Micro Data 08/31/23 06:10 09/01/23 07:15 Labs: Laboratory Results - last 24 hr 08/31/23 11:16: POC Glucose 124 H 08/31/23 19:50: Vancomycin Trough 22.8 H 08/31/23 22:30: POC Glucose 123 H 09/01/23 06:18: POC Glucose 92 09/01/23 07:15: PT 21.8 H, INR 1.9, Sodium 136, Potassium 3.4 L, Chloride 105, Carbon Dioxide 21.0, Anion Gap 10, BUN 56 H, Creatinine 2.55 H, Estim Creat Clear Calc 20.10, Est GFR (MDRD) Af Amer 31 L, Est GFR (MDRD) Non-Af 26 L, BUN/Creatinine Ratio 22.0 H, Glucose 91, Calcium 9.8, Phosphorus 4.0, Magnesium 2.3 Micro: Microbiology 08/29/23 10:59 Blood Culture (Wb) - Anticubital Left Blood Culture - Preliminary No growth in 48 hours. 08/29/23 10:31 Blood Culture (Wb) - Anticubital Left Blood Culture - Preliminary No growth in 48 hours. 08/29/23 11:31 Urine, Clean Catch Urine Culture - Final Culture exhibits no growth. 08/30/23 07:15 Urine, Random Legionella Antigen - Final 08/30/23 07:15 Urine, Random Streptococcus pneumoniae Antigen (M - Final 08/29/23 11:40 Mucosa - Nasopharyngeal Respiratory Panel (PCR) - Final 08/29/23 09:42 Mucosa - Nose SARS-CoV-2, Influenza & RSV (PCR) - Final Physical Exam Narrative General: Alert and oriented x3, NAD. HEENT: Normocephalic, atraumatic. Mucous membrane moist without erythema. PERRLA, EOMI. Hearing is intact. Neck: Supple, no JVD. Trachea is midline. No thyromegaly or lymphadenopathy. Cardiovascular: Normal S1, S2. No rubs, murmurs, or gallops. Respiratory: Lungs are clear to auscultation bilaterally. No wheezing, rhonchi, or rales. Abdomen: Normal bowel sounds, soft, nontender, no guarding or rebound, no organomegaly. Extremities: No clubbing or cyanosis. There is 2+ lower extremity edema. Musculoskeletal: Full passive range of motion, no joint swelling. Psychiatric: Normal mood and affect. Skin: Warm and dry, no rash. Neurologic: Cranial nerve II to XII are grossly intact. No focal neurologic deficits. Assessment & Plan Assessment/Plan (1) Chronic kidney disease, stage 4 (severe): (2) Essential (primary) hypertension: (3) Acute hypoxic respiratory failure: PLAN: Plan Impression/Plan: The patient is an 78-year-old man with past history of chronic kidney disease stage G4, type 2 diabetes mellitus, hypertension, CAD, HFpEF (EF 55% on echocardiogram from 08/19/2023), KIMBERLY, pulmonary hypertension, BPH, and hyperlipidemia. The patient presented to hospital on 08/29/2023 with dyspnea. The patient was just admitted to hospital between 08/25/2023 until 08/28/2023 with acute hypoxic respiratory failure attributed to heart failure exacerbation. The patient was admitted to hospital for recurrent acute hypoxic respiratory although etiology for current respiratory failure is is continuing to be worked up. Nephrology is following for chronic kidney disease. Chronic kidney disease stage G4/A2. 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 The patient has baseline serum creatinine of 2.3 to 2.5 mg/dL. Renal function continues to be close to baseline. Therefore, I am okay with continuing current treatment with IV bumetanide. Acute hypoxic respiratory failure. I suspect dyspnea and hypoxemia is multifactorial. CT chest showed edema. Autoimmune panel is pending. Discussed with hospitalist
[2023-09-01 10:06] LABS: Uric Acid 9.3 mg/dL (3.5-7.2)
[2023-09-01 11:39] LABS: Bedside Glucose 138 mg/dL (74-106)
--- NOTE | 2023-09-01 11:53 | PCM.PN.HOSP ---
Reason for Visit Reason for Visit: Shortness of breath Subjective Subjective Patient states overall his breathing feels better. Still fatigue but that seems to be a bit better. Complaining of right hand pain and swelling that is new in the last 24 hours. Highly suspect gout with diuresis and renal failure. Remained stable on room air. Objective Data Objective Data Vital Signs: Vital Signs Temp Pulse Resp BP Pulse Ox O2 Del Method O2 Flow Rate 98.0 F 79 18 132/86 H 99 Room Air 2 09/01/23 09:45 09/01/23 09:45 09/01/23 09:45 09/01/23 09:45 09/01/23 09:45 09/01/23 09:45 08/30/23 07:25 FiO2 35 08/29/23 15:20 Oxygen Flow Rate (L/min) 2 Oxygen Delivery Method Room Air Weight: 82.8 kg Body Mass Index (BMI) 30.4 Intake & Output: Intake and Output for Last 24 Hours 08/30/23 08/31/23 09/01/23 23:59 23:59 23:59 Intake Total 1310 / 1310 650 / 650 Output Total 1615 / 1865 2325 / 2325 975 / 975 Balance -305 / -555 -1675 / -1675 -975 / -975 Lab / Micro Data 08/31/23 06:10 09/01/23 07:15 Labs: Laboratory Results - last 24 hr 08/31/23 19:50: Vancomycin Trough 22.8 H 08/31/23 22:30: POC Glucose 123 H 09/01/23 06:18: POC Glucose 92 09/01/23 07:15: PT 21.8 H, INR 1.9, Sodium 136, Potassium 3.4 L, Chloride 105, Carbon Dioxide 21.0, Anion Gap 10, BUN 56 H, Creatinine 2.55 H, Estim Creat Clear Calc 20.10, Est GFR (MDRD) Af Amer 31 L, Est GFR (MDRD) Non-Af 26 L, BUN/Creatinine Ratio 22.0 H, Glucose 91, Uric Acid 9.3 H, Calcium 9.8, Phosphorus 4.0, Magnesium 2.3 09/01/23 11:12: POC Glucose 138 H Micro: Microbiology 08/29/23 10:59 Blood Culture (Wb) - Anticubital Left Blood Culture - Preliminary No growth in 48 hours. 12/30/23 10:31 Blood Culture (Wb) - Anticubital Left Blood Culture - Preliminary No growth in 48 hours. 08/29/23 11:31 Urine, Clean Catch Urine Culture - Final Culture exhibits no growth. 08/30/23 07:15 Urine, Random Legionella Antigen - Final 08/30/23 07:15 Urine, Random Streptococcus pneumoniae Antigen (M - Final 08/29/23 11:40 Mucosa - Nasopharyngeal Respiratory Panel (PCR) - Final 08/29/23 09:42 Mucosa - Nose SARS-CoV-2, Influenza & RSV (PCR) - Final Physical Exam Const alert, oriented x3, no apparent distress and well nourished; Negative for average body habitus or healthy appearing Constitutional Narrative: Elderly, obese, white male, sitting up on the edge of the bed bed, nursing is at bedside, remains on room air, appears comfortable, nontoxic, no conversational dyspnea General Appearance: cooperative HEENT normocephalic, head/scalp atraumatic and moist oral mucous membranes HEENT Narrative: Mallampati is 3 Resp normal respiratory effort, no retractions, no use of accessory muscles and clear to auscultation bilaterally Resp Narrative: Few crackles at bilateral bases that seem to improve with deep breathing and I suspect this is atelectasis related Auscultation: crackles; Negative for rhonchi or wheezes Cardio regular rate, S1 normal heart sound, S2 normal heart sound, no murmurs, no rub, no gallops and no clicks Cardio Narrative: Irregularly irregular rhythm with regular rate GI normal to inspection, nondistended, normoactive bowel sounds, soft to palpation and non-tender Extremity Extremity Narrative: 1-2+ pitting edema bilateral lower extremities, no cyanosis or clubbing, Virgilio bandages in place, right hand is swollen over the knuckles and tender to palpation and movement Neuro oriented x3, moves all extremities and no focal motor deficits Speech: speech normal Psych Psych Narrative: Eye contact is good, calm, interacts appropriately Mood & Affect: anxious Assessment & Plan Assessment/Plan (1) Subtherapeutic international normalized ratio (INR): (2) Pulmonary artery hypertension: (3) Grade III diastolic dysfunction: (4) Mitral valve insufficiency: (5) Leukocytosis: (6) Acute hypoxic respiratory failure: (7) Gout: (8) Chronic kidney disease, stage 4 (severe): PLAN: Plan Acute hypoxic respiratory failure secondary to acute exacerbation diastolic heart failure/right-sided heart failure/flash pulmonary edema -Echo done on 08/27/2023 showed biatrial enlargement, moderate mitral valve insufficiency, moderate pulmonary artery hypertension, stage III diastolic dysfunction and an EF of 50 to 55% -Patient remained stable on room air -Patient does have CardioMEMS device -Continue IV Bumex 2 mg IV twice daily -TSH is within normal limits -Fluid restriction -Sodium restriction -Daily weights -Virgilio bandages lower extremities -CPAP at night -CT of the chest shows groundglass changes diffusely bilaterally -Previously had elevated autoimmune titers with follow-up pending -Previously elevated rheumatoid factor and KAILA--> 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 Mireles Gout -Right hand -Uric acid is 9.3 -Start prednisone 20 mg daily will utilize burst dosing -Start allopurinol and renally dose at 200 mg daily Sepsis -Sepsis has been ruled out -Cultures are unremarkable -Antibiotics discontinued on 08/31/2023 Hypokalemia -Slightly low to date -P.o. replacement -Recheck in a.m. -Magnesium is within normal limits Subtherapeutic INR -Goal is 2-3 -INR stable at 1.9 today -Continue Coumadin 3 mg daily and reassess tomorrow may need slight increase if does not start to trend up with 3 mg dosing -Repeat INR in a.m. Chronic normocytic anemia secondary to CKD -Normocytic -Hemoglobin is overall stable -Suspect related to chronic renal disease Persistent atrial fibrillation -Continue Coumadin 3 mg -INR is slightly subtherapeutic at 1.9 -Continue home carvedilol DM-2 -Hemoglobin A1c on 07/07/2023 was 6.2 -Continue home Farxiga hold other home oral agents -SSI -Cardiac/carb controlled diet -Accu-Cheks as ordered CKD stage IIIb -Baseline serum creatinine appears to run between 2.0 and 2.5 -Renal duplex was performed and pending read -Discussed with nephrology okay to continue Bumex 2 mg IV push twice daily -Avoid nephrotoxins as able -Nephrology following-discussed case with Dr. 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
[2023-09-01] MEDS: Allopurinol 100 MG Tablet 200 MG PO (13:34)
--- NOTE | 2023-09-01 13:50 | CASEMGMT ---
ALEENA PONCE chart review: Tonya was admitted 08/25-08/28/23 for CHF exacerbation. See ALEENA PONCE assessment from 08/26/23. Patient was discharged to home with new medications and follow-up plans in place. Patient did not qualify for home oxygen at discharge. Patient returned 08/29/23 for SOB. Patient was 77% on room air and was requiring 4lpm. Patient admitted for CHF exacerbation. ALEENA PONCE in to discuss readmission and discharge planning with patient. Patient is currently on room air. Patient returned prior to follow-up appt with tumbler drier operator. Patient states he was taking medications as prescribed. Patient states he did eat a salad with ham at home. Patient denies needs at discharge. Will monitor for home oxygen at discharge. Entry Level Chemist updated regarding diet teaching. CM will continue to follow this patient and plan for a safe discharge.
[2023-09-01 15:55] VITALS: BP 123/72; PULSE 72; RESP 18; TEMP 36.9; O2SAT 98
[2023-09-01 16:45] LABS: Bedside Glucose 205 mg/dL (74-106)
[2023-09-01] MEDS: Insulin Lispro 100 UNIT/ML INSULN.PEN SC (17:32)
--- NOTE | 2023-09-01 19:40 | RAD_ITS ---
STUDY: X-RAY - RIGHT HAND REASON FOR EXAM: Male, 78 years old. pain--?RA changes TECHNIQUE: 3 view(s) of the hand. COMPARISON: 10/10/2022 FINDINGS: Normal radiocarpal articulation. Normal distal radioulnar joint. Normal visualized carpal bones. Normal carpal articulations Normal carpometacarpal articulation of the thumb. Normal second through fifth carpometacarpal joints. Normal metacarpi. Normal metacarpophalangeal joint of the thumb. Normal interphalangeal joint of the thumb. Normal proximal and distal phalanges of the thumb. Marginal erosions of the head of the third, fourth, and fifth metacarpal bones worrisome for inflammatory arthritis possibly rheumatoid arthritis., There is diffuse articular joint space narrowing of the proximal and distal interphalangeal joints of the second through fifth fingers, but without erosive changes or periarticular soft tissue swelling. Normal phalanges of the second through fifth fingers. The soft tissue structures are unremarkable. RAD/Hand Min 3 Views IMPRESSION: 1. Suspect inflammatory arthritis of the right third, fourth, and fifth metacarpophalangeal joints. 2. Moderate osteoarthritis of the interphalangeal joints. Electronically Signed: Casey Lopez MD at 20:09 EST ,
--- NOTE | 2023-09-01 19:40 | RAD_ITS ---
STUDY: X-RAY - LEFT HAND REASON FOR EXAM: Male, 78 years old. PAIN- RA CHANGES? TECHNIQUE: 3 view(s) of the hand. COMPARISON: 10/10/2022 FINDINGS: There is joint space narrowing of the radiocarpal articulation consistent with degenerative arthrosis. Normal distal radioulnar joint. Normal visualized carpal bones. There is degenerative joint disease of the scaphotrapezium / trapezoid articulation. The remainder of the carpal articulations are normal. There is degenerative arthrosis of the carpometacarpal (CMC) articulation of the thumb. Normal second through fifth carpometacarpal joints. Normal metacarpi. Normal metacarpophalangeal joint of the thumb. Normal interphalangeal joint of the thumb. Normal proximal and distal phalanges of the thumb. Normal metacarpophalangeal joints of the second through fifth fingers. There is diffuse articular joint space narrowing of the proximal and distal interphalangeal joints of the second through fifth fingers, but without erosive changes or periarticular soft tissue swelling. Normal phalanges of the second through fifth fingers. The soft tissue structures are unremarkable. RAD/Hand Min 3 Views IMPRESSION: Degenerative joint disease of the hand and wrist, as described above. Electronically Signed: Casey Lopez MD at 20:01 [facility] ,
[2023-09-01] MEDS: MELATONIN 3 MG TABLET PO (21:43)
[2023-09-01] MEDS: Gabapentin 100 MG Capsule PO (21:46)
[2023-09-01 21:55] VITALS: BP 101/60; PULSE 77; RESP 17; TEMP 36.3; O2SAT 96
[2023-09-01 23:46] LABS: Bedside Glucose 215 mg/dL (74-106)
[2023-09-01] MEDS: Acetaminophen 325 MG Tablet 650 MG PO (23:59)
[2023-09-02 01:43] VITALS: BMI 29.4
[2023-09-02 03:19] VITALS: BP 101/54; PULSE 53; RESP 18; TEMP 36.7; O2SAT 97
[2023-09-02] MEDS: Heparin Injection (Vial) 5,000 UNIT/ML VIAL 5000 UNIT SC ×3 (06:07→21:00)
[2023-09-02 06:47] LABS: Bedside Glucose 149 mg/dL (74-106)
[2023-09-02 07:17] LABS: Absolute Lymphocyte Count 0.87 X10^3/uL (0.83-4.51); Absolute Neutrophil Count 10.5 X10^3/uL (2.0-7.7); Basophil# 0.02 X10^3/uL; Basophil% 0.2 % (0-1); Eosinophil# 0.01 X10^3/uL; Eosinophils% 0.1 % (0-5); Lymphocyte # 0.87 X10^3/ul (0.83-4.51); Lymphocyte % 7.2 % (19-41); Mean Corp Hgb Conc 32.4 g/dL (32-36); Mean Corpuscular Hgb 29.2 pg (27.0-32.0); Mean Corpuscular Volume 90.2 fL (80-94); Mean Platelet Vol. 11.2 fl (6.2-12.0); Monocyte# 0.52 X10^3/uL; Monocyte% 4.3 % (0-10); NRBC Flagged by Analyzer 0 % (0-5); Neutrophil % 87.3 % (47-70); Platelet Count 285 K/mm3 (150-450); RBC Distribution Width CV 13.7 % (11.6-14.6); RBC Distribution Width SD 45.4 fl (35.1-43.9); Red Blood Count 3.77 M/mm3 (4.6-6.2)
[2023-09-02 07:32] VITALS: O2SAT 98
[2023-09-02] MEDS: predniSONE 20 MG Tablet PO (07:38)
[2023-09-02] MEDS: Pantoprazole Sodium 40 MG Tablet PO (07:38)
[2023-09-02] MEDS: Allopurinol 100 MG Tablet 200 MG PO (07:38)
[2023-09-02] MEDS: Cyanocobalamin 500 MCG Tablet 1000 MCG PO (07:38)
[2023-09-02] MEDS: Cholecalciferol (VIT D3) 25 MCG TABLET (1,000 UNITS) PO (07:38)
[2023-09-02] MEDS: Finasteride 5 MG Tablet PO (07:39)
[2023-09-02] MEDS: Empagliflozin 25 MG Tablet PO (07:39)
[2023-09-02 07:50] LABS: International Normalized Ratio 2.1; Prothrombin Time (Protime)PT. 23.6 SECONDS (11.7-14.9)
[2023-09-02 08:03] LABS: Anion Gap 9 (5-15); BUN 65 mg/dL (7-18); BUN/Creat Ratio 23.8 RATIO (10-20); Calcium,Total 9.9 mg/dL (8.5-10.1); Chloride 99 mmol/L (98-107); Creatinine, Serum 2.73 mg/dL (0.70-1.30); EST Glomerular Filtration Rate 24 mL/min (>60); Est Glom Filt Rate - Afr Amer 29 mL/min (>60); Estimated Creatinine Clearance 18.77 ml/min; Glucose 145 mg/dL (74-106); Potassium 3.8 mmol/L (3.5-5.1); Sodium Level 132 mmol/L (136-145)
[2023-09-02 09:08] VITALS: O2SAT 93; O2SAT 96
[2023-09-02 09:30] VITALS: BP 141/92; PULSE 81; RESP 18; TEMP 36.7; O2SAT 97
[2023-09-02] MEDS: Carvedilol 6.25 MG Tablet PO ×2 (10:20→20:59)
[2023-09-02] MEDS: Bumetanide 0.5 MG Tablet 1 MG PO ×2 (10:20→20:59)
[2023-09-02] MEDS: Insulin Glargine-YFGN 100 UNIT/ML Pen 10 UNIT SC (10:20)
[2023-09-02] MEDS: Insulin Lispro 100 UNIT/ML INSULN.PEN SC ×2 (11:45→16:11)
[2023-09-02 12:06] LABS: Bedside Glucose 230 mg/dL (74-106)
[2023-09-02 12:08] LABS: ANTINUCLEAR ANTIBODIES DIRECT Positive (Negative); Anti-Centromere B Ab <0.2 AI (0.0-0.9); Anti-Chromatin <0.2 AI (0.0-0.9); Anti-Jo <0.2 AI (0.0-0.9); Anti-Scleroderma-70 AB <0.2 AI (0.0-0.9); Anti-dsDNA Ab 11 IU/mL (0-9); RNP Ab <0.2 AI (0.0-0.9); SJOGREN'S Anti-SS-A test < 0.2 AI (0.0-0.9); Smith Ab <0.2 AI (0.0-0.9)
--- NOTE | 2023-09-02 12:34 | PN.CC_ITS ---
Assessment & Plan Assessment/Plan (1) Hypoxia: PLAN: Plan RECOMMENDATIONS: 1. Monitor off antibiotics 2. Continue Coumadin and check INR daily. 3. Obtain walking oximetry prior to discharge. Supplemental oxygen, if needed, to maintain saturations at or above 90%. 4. Continue gentle diuresis as tolerated by hemodynamics and renal function. 5. Encourage incentive spirometer use and mobilize patient as tolerated. 6. Follow-up in our office 2 weeks after discharge IMPRESSIONS: 1. Sepsis Potential source could include pneumonia. The patient did have one isolated low blood pressure reading, which responded to IV fluid resuscitation. He remains hemodynamically stable and is maintaining appropriate oxygen satu rations on room air. Patient has been monitored for over 48 hours off of antibiotics and is doing well. 2. Shortness of breath and hypoxemia Exact etiology is unclear. However, this is most likely secondary to his underlying diastolic dysfunction and pulmonary hypertension. The patient does have ground glass opacities on chest imaging, with a differential including infectious and inflammatory etiologies, along with edema. His presenting hypoxemia has resolved. Recommend continuing baseline diuretic regimen. Patient's rheumatoid factor has come back higher than previous along with a positive KAILA screen. Additional workup is currently pending, but would rec ommend discharging the patient on 60 mg of prednisone until he can be followed up in 2 weeks. Remaining autoimmune workup should be available by that time. Patient will need an outpatient PFT and possible rheumatologic evaluation. 3. Chronic atrial fibrillation/diabetes mellitus/anemia/chronic kidney disease/history of obstructive sleep apnea/obesity Complicates care, management, recovery and prognosis. Continue current supportive care along with nocturnal PAP therapy per home regimen. This note was generated with Get[employer] dictation software. It may contain incorrect words, spelling, and punctuation that were not noted in checking the note before signing. Subjective Subjective Asked to see patient again prior to being discharged. Patient has had laboratory data suggesting rheumatoid arthritis is a possibility of his interstitial lung disease. Patient is concerned that he has bounced back following a previous hospitalization. Patient does report that he is improved. Patient currently on room air. Patient has been placed on subcutaneous insulin and is concerned that this will be necessary moving forward. Objective Data Objective Data Vital Signs: Vital Signs Temp Pulse Resp BP Pulse Ox O2 Del Method O2 Flow Rate 36.7 C 81 18 141/92 H 97 Room Air 2 09/02/23 09:30 09/02/23 09:30 09/02/23 09:30 09/02/23 09:30 09/02/23 09:30 09/02/23 09:30 08/30/23 07:25 FiO2 35 08/29/23 15:20 Oxygen Flow Rate (L/min) 2 Oxygen Delivery Method Room Air Weight: 80.2 kg Body Mass Index (BMI) 29.4 Intake & Output: Intake and Output for Last 24 Hours 08/31/23 09/01/23 09/02/23 23:59 23:59 23:59 Intake Total 650 / 650 700 / 700 560 / 560 Output Total 2325 / 2325 3625 / 3625 1350 / 1350 Balance -1675 / -1675 -2925 / -2925 -790 / -790 Lab / Micro Data 09/02/23 06:40 09/02/23 06:40 Labs: Laboratory Results - last 24 hr 08/30/23 06:25: KAILA Screen Positive H, ANDREIA-1 Antibody <0.2, SS-A/Ro IgG Antibody < 0.2, SS-B/La IgG Antibody 1.0 H, Sm (Banuelos) Antibody <0.2, PUBLIC SERVICE OFFICER Antibody <0.2, Scl-70 Scleroderma Ab <0.2, Double Strand DNA Ab 11 H, Centromere B Antibody <0.2 09/01/23 07:15: Rheumatoid Factor 581.0 H 09/01/23 16:16: POC Glucose 205 H 09/01/23 21:48: POC Glucose 215 H 09/02/23 06:08: POC Glucose 149 H 09/02/23 06:40: WBC 12.0 H, RBC 3.77 L, Hgb 11.0 L, Hct 34.0 L, MCV 90.2, MCH 29.2, MCHC 32.4 D, RDW Std Deviation 45.4 H, RDW Coeff of Kiersten 13.7, Plt Count 285, MPV 11.2, Immature Gran % (Auto) 0.900, Neut % (Auto) 87.3 H, Lymph % (Auto) 7.2 L, [place] % (Auto) 4.3, Eos % (Auto) 0.1, Baso % (Auto) 0.2, Absolute Neuts (auto) 10.5 H, Absolute Lymphs (auto) 0.87, Nucleated RBC % 0, PT 23.6 H, INR 2.1, Sodium 132 L, Potassium 3.8, Chloride 99, Carbon Dioxide 24.0, Anion Gap 9, BUN 65 H, Creatinine 2.73 H, Estim Creat Clear Calc 18.77, Est GFR (MDRD) Af Amer 29 L, Est GFR (MDRD) Non-Af 24 L, BUN/Creatinine Ratio 23.8 H, Glucose 145 H, Calcium 9.9 09/02/23 11:44: POC Glucose 230 H Micro: Microbiology 08/29/23 10:59 Blood Culture (Wb) - Anticubital Left Blood Culture - Preliminary No growth in 48 hours. 08/29/23 10:31 Blood Culture (Wb) - Anticubital Left Blood Culture - Preliminary No growth in 48 hours. 08/29/23 11:31 Urine, Clean Catch Urine Culture - Final Culture exhibits no growth. 08/30/23 07:15 Urine, Random Legionella Antigen - Final 08/30/23 07:15 Urine, Random Streptococcus pneumoniae Antigen (M - Final 08/29/23 11:40 Mucosa - Nasopharyngeal Respiratory Panel (PCR) - Final 08/29/23 09:42 Mucosa - Nose SARS-CoV-2, Influenza & RSV (PCR) - Final Radiography Diagnostic Testing: Radiology Impression Renal Artery Duplex 08/29/23 12:59 Interpretation Summary Right renal artery patent with normal velocities and no evidence of stenosis Left renal artery patent with normal velocities and no evidence of stenosis Right renal vein patent Left renal vein patent Right kidney normal in size Left kidney normal in size Ordering Physician: Jolene Valentine Referring Physician: Howard Escobar Performed By: Demarco Jacob RVT Hand X-Ray 09/01/23 19:40 IMPRESSION: 1. Suspect inflammatory arthritis of the right third, fourth, and fifth metacarpophalangeal joints. 2. Moderate osteoarthritis of the interphalangeal joints. Electronically Signed: Casey Lopez MD at 20:09 EST , Hand X-Ray 09/01/23 19:40 IMPRESSION: Degenerative joint disease of the hand and wrist, as described above. Electronically Signed: Casey Lopez MD at 20:01 EST , Physical Exam Const alert, oriented x3 and no apparent distress General Appearance: cooperative HEENT normocephalic, head/scalp atraumatic and moist oral mucous membranes Eyes PERRL, EOMs intact bilaterally and conjunctivae normal Neck supple General: trachea midline Chest inspection of chest normal Resp normal respiratory effort Auscultation: rales left base; Negative for rhonchi or wheezes Cardio S2 normal heart sound Cardio Narrative: Irregularly irregular Rhythm: abnormal rhythm GI normal to inspection, nondistended, normoactive bowel sounds Extremity General Extremity: Negative for clubbing or edema Skin no rashes or lesions noted Neuro CN's II-XII intact bilaterally, moves all extremities and no focal motor def icits Psych cooperative and affect normal Charges/Coding Visit Charges Inpatient E&M: 27912 Subs Hosp L2
--- NOTE | 2023-09-02 12:40 | PN.RENAL_ITS ---
Subjective Subjective No new complaints Objective Data Objective Data Vital Signs: Vital Signs Temp Pulse Resp BP Pulse Ox O2 Del Method O2 Flow Rate 98.0 F 81 18 141/92 H 97 Room Air 2 09/02/23 09:30 09/02/23 09:30 09/02/23 09:30 09/02/23 09:30 09/02/23 09:30 09/02/23 09:30 08/30/23 07:25 FiO2 35 08/29/23 15:20 Oxygen Flow Rate (L/min) 2 Oxygen Delivery Method Room Air Weight: 80.2 kg Body Mass Index (BMI) 29.4 Intake & Output: Intake and Output for Last 24 Hours 08/31/23 09/01/23 09/02/23 23:59 23:59 23:59 Intake Total 650 / 650 700 / 700 560 / 560 Output Total 2325 / 2325 3625 / 3625 1350 / 1350 Balance -1675 / -1675 -2925 / -2925 -790 / -790 Lab / Micro Data 09/02/23 06:40 09/02/23 06:40 Labs: Laboratory Results - last 24 hr 08/30/23 06:25: KAILA Screen Positive H, ANDREIA-1 Antibody <0.2, SS-A/Ro IgG Antibody < 0.2, SS-B/La IgG Antibody 1.0 H, Sm (Banuelos) Antibody <0.2, DIRECTOR TRADING Antibody <0.2, Scl-70 Scleroderma Ab <0.2, Double Strand DNA Ab 11 H, Centromere B Antibody <0.2 09/01/23 07:15: Rheumatoid Factor 581.0 H 09/01/23 16:16: POC Glucose 205 H 09/01/23 21:48: POC Glucose 215 H 09/02/23 06:08: POC Glucose 149 H 09/02/23 06:40: WBC 12.0 H, RBC 3.77 L, Hgb 11.0 L, Hct 34.0 L, MCV 90.2, MCH 29.2, MCHC 32.4 D, RDW Std Deviation 45.4 H, RDW Coeff of Kiersten 13.7, Plt Count 285, MPV 11.2, Immature Gran % (Auto) 0.900, Neut % (Auto) 87.3 H, Lymph % (Auto) 7.2 L, [place] % (Auto) 4.3, Eos % (Auto) 0.1, Baso % (Auto) 0.2, Absolute Neuts (auto) 10.5 H, Absolute Lymphs (auto) 0.87, Nucleated RBC % 0, PT 23.6 H, INR 2.1, Sodium 132 L, Potassium 3.8, Chloride 99, Carbon Dioxide 24.0, Anion Gap 9, BUN 65 H, Creatinine 2.73 H, Estim Creat Clear Calc 18.77, Est GFR (MDRD) Af Amer 29 L, Est GFR (MDRD) Non-Af 24 L, BUN/Creatinine Ratio 23.8 H, Glucose 145 H, Calcium 9.9 09/02/23 11:44: POC Glucose 230 H Micro: Microbiology 08/29/23 10:59 Blood Culture (Wb) - Anticubital Left Blood Culture - Preliminary No growth in 48 hours. 08/29/23 10:31 Blood Culture (Wb) - Anticubital Left Blood Culture - Preliminary No growth in 48 hours. 08/29/23 11:31 Urine, Clean Catch Urine Culture - Final Culture exhibits no growth. 08/30/23 07:15 Urine, Random Legionella Antigen - Final 08/30/23 07:15 Urine, Random Streptococcus pneumoniae Antigen (M - Final 08/29/23 11:40 Mucosa - Nasopharyngeal Respiratory Panel (PCR) - Final 08/29/23 09:42 Mucosa - Nose SARS-CoV-2, Influenza & RSV (PCR) - Final Radiography Diagnostic Testing: Radiology Impression Renal Artery Duplex 08/29/23 12:59 Interpretation Summary Right renal artery patent with normal velocities and no evidence of stenosis Left renal artery patent with normal velocities and no evidence of stenosis Right renal vein patent Left renal vein patent Right kidney normal in size Left kidney normal in size Ordering Physician: Jolene Valentine Referring Physician: Howard Escobar Performed By: Demarco Jacob RVT Hand X-Ray 09/01/23 19:40 IMPRESSION: 1. Suspect inflammatory arthritis of the right third, fourth, and fifth metacarpophalangeal joints. 2. Moderate osteoarthritis of the interphalangeal joints. Electronically Signed: Casey Lopez MD at 20:09 EST Reading Location ID and State: [id number] / [employer] , Service support , Hand X-Ray 09/01/23 19:40 IMPRESSION: Degenerative joint disease of the hand and wrist, as described above. Electronically Signed: Casey Lopez MD at 20:01 EST Reading Location ID and State: [id number] / [employer] , Service support , Physical Exam Narrative General: Alert and oriented x3, NAD. HEENT: Normocephalic, atraumatic. Mucous membrane moist without erythema. PERRLA, EOMI. Hearing is intact. Neck: Supple, no JVD. Trachea is midline. No thyromegaly or lymphadenopathy. Cardiovascular: Normal S1, S2. No rubs, murmurs, or gallops. Respiratory: Lungs are clear to auscultation bilaterally. No wheezing, rhonchi, or rales. Abdomen: Normal bowel sounds, soft, nontender, no guarding or rebound, no organomegaly. Extremities: No clubbing or cyanosis. There is 2+ lower extremity edema. Musculoskeletal: Full passive range of motion, no joint swelling. Psychiatric: Normal mood and affect. Skin: Warm and dry, no rash. Neurologic: Cranial nerve II to XII are grossly intact. No focal neurologic deficits. Assessment & Plan Assessment/Plan (1) Chronic kidney disease, stage 4 (severe): (2) Essential (primary) hypertension: (3) Acute hypoxic respiratory failure: PLAN: Plan Impression/Plan: The patient is an 78-year-old man with past history of chronic kidney disease stage G4, type 2 diabetes mellitus, hypertension, CAD, HFpEF (EF 55% on echoc ardiogram from 08/19/2023), KIMBERLY, pulmonary hypertension, BPH, and hyperlipidemia. The patient presented to hospital on 08/29/2023 with dyspnea. The patient was just admitted to hospital between 08/25/2023 until 08/28/2023 with acute hypoxic respiratory failure attributed to heart failure exacerbation. The patient was admitted to hospital for recurrent acute hypoxic respiratory although etiology for current respiratory failure is is continuing to be worked up. Nephrology is following for chronic kidney disease. Chronic kidney disease stage G4/A2. 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 The patient has baseline serum creatinine of 2.3 to 2.5 mg/dL. Renal function continues to be close to baseline. Changed to p.o. Bumex today Acute hypoxic respiratory failure. I suspect dyspnea and hypoxemia is multifactorial. CT chest showed edema. Autoimmune panel is pending. Discussed with hospitalist
--- NOTE | 2023-09-02 14:44 | PCM.PN.HOSP ---
Reason for Visit Reason for Visit: Shortness of breath Subjective Subjective No hypoxia with exertion. Patient states he is not quite ready to go home but feeling much better. Hand pain is decreased and range of motion has improved. No complaints at this time that are new. Objective Data Objective Data Vital Signs: Vital Signs Temp Pulse Resp BP Pulse Ox O2 Del Method O2 Flow Rate 98.0 F 81 18 141/92 H 97 Room Air 2 09/02/23 09:30 09/02/23 09:30 09/02/23 09:30 09/02/23 09:30 09/02/23 09:30 09/02/23 09:30 08/30/23 07:25 FiO2 35 08/29/23 15:20 Oxygen Flow Rate (L/min) 2 Oxygen Delivery Method Room Air Weight: 80.2 kg Body Mass Index (BMI) 29.4 Intake & Output: Intake and Output for Last 24 Hours 08/31/23 09/01/23 09/02/23 23:59 23:59 23:59 Intake Total 650 / 650 700 / 700 560 / 560 Output Total 2325 / 2325 3625 / 3625 1350 / 1350 Balance -1675 / -1675 -2925 / -2925 -790 / -790 Lab / Micro Data 09/02/23 06:40 09/02/23 06:40 Labs: Laboratory Results - last 24 hr 08/30/23 06:25: KAILA Screen Positive H, ANDREIA-1 Antibody <0.2, SS-A/Ro IgG Antibody < 0.2, SS-B/La IgG Antibody 1.0 H, Sm (Banuelos) Antibody <0.2, INFORMATION ASSURANCE ENGINEER Antibody <0.2, Scl-70 Scleroderma Ab <0.2, Double Strand DNA Ab 11 H, Centromere B Antibody <0.2 09/01/23 16:16: POC Glucose 205 H 09/01/23 21:48: POC Glucose 215 H 09/02/23 06:08: POC Glucose 149 H 09/02/23 06:40: WBC 12.0 H, RBC 3.77 L, Hgb 11.0 L, Hct 34.0 L, MCV 90.2, MCH 29.2, MCHC 32.4 D, RDW Std Deviation 45.4 H, RDW Coeff of Kiersten 13.7, Plt Count 285, MPV 11.2, Immature Gran % (Auto) 0.900, Neut % (Auto) 87.3 H, Lymph % (Auto) 7.2 L, [place] % (Auto) 4.3, Eos % (Auto) 0.1, Baso % (Auto) 0.2, Absolute Neuts (auto) 10.5 H, Absolute Lymphs (auto) 0.87, Nucleated RBC % 0, PT 23.6 H, INR 2.1, Sodium 132 L, Potassium 3.8, Chloride 99, Carbon Dioxide 24.0, Anion Gap 9, BUN 65 H, Creatinine 2.73 H, Estim Creat Clear Calc 18.77, Est GFR (MDRD) Af Amer 29 L, Est GFR (MDRD) Non-Af 24 L, BUN/Creatinine Ratio 23.8 H, Glucose 145 H, Calcium 9.9 09/02/23 11:44: POC Glucose 230 H Micro: Microbiology 08/29/23 10:59 Blood Culture (Wb) - Anticubital Left Blood Culture - Preliminary No growth in 48 hours. 08/29/23 10:31 Blood Culture (Wb) - Anticubital Left Blood Culture - Preliminary No growth in 48 hours. 08/29/23 11:31 Urine, Clean Catch Urine Culture - Final Culture exhibits no growth. 08/30/23 07:15 Urine, Random Legionella Antigen - Final 08/30/23 07:15 Urine, Random Streptococcus pneumoniae Antigen (M - Final 08/29/23 11:40 Mucosa - Nasopharyngeal Respiratory Panel (PCR) - Final 08/29/23 09:42 Mucosa - Nose SARS-CoV-2, Influenza & RSV (PCR) - Final Radiography Diagnostic Testing: Radiology Impression Hand X-Ray 09/01/23 19:40 IMPRESSION: 1. Suspect inflammatory arthritis of the right third, fourth, and fifth metacarpophalangeal joints. 2. Moderate osteoarthritis of the interphalangeal joints. Electronically Signed: Casey Lopez MD at 20:09 EST , Hand X-Ray 09/01/23 19:40 IMPRESSION: Degenerative joint disease of the hand and wrist, as described above. Electronically Signed: Casye Lopez MD at 20:01 EST , Physical Exam Const alert, oriented x3, no apparent distress and well nourished; Negative for average body habitus or healthy appearing Constitutional Narrative: Elderly, obese, white male, sitting up on the edge of the bed bed, nursing is at bedside, remains on room air, appears comfortable, nontoxic General Appearance: cooperative HEENT normocephalic, head/scalp atraumatic and moist oral mucous membranes HEENT Narrative: Mallampati 3, no thrush Eyes PERRL and conjunctivae normal Eyes Narrative: No scleral icterus Neck no lymphadenopathy and supple Neck Narrative: neck is short and thick, trachea midline, no thyroid enlarged noted Resp normal respiratory effort, no retractions, no use of accessory muscles and clear to auscultation bilaterally Auscultation: Negative for crackles, rhonchi or wheezes Cardio regular rate, S1 normal heart sound, S2 normal heart sound, no murmurs, no rub, no gallops and no clicks Cardio Narrative: Irregularly irregular rhythm with regular rate GI normal to inspection, nondistended, normoactive bowel sounds, soft to palpation and non-tender Extremity Extremity Narrative: 1 pitting edema bilateral lower extremities, no cyanosis or clubbing, Virgilio bandages in place, right hand is swollen over the knuckles and tender to palpation and movement Skin no wounds, skin turgor normal, no jaundice, no petechiae and no mottling Skin Narrative: Skin is pale, scattered ecchymosis on hands and arms Neuro oriented x3, moves all extremities and no focal motor deficits Speech: speech normal Psych Psych Narrative: Eye contact is good, calm, interacts appropriately Mood & Affect: anxious Assessment & Plan Assessment/Plan (1) Subtherapeutic international normalized ratio (INR): (2) Pulmonary artery hypertension: (3) Grade III diastolic dysfunction: (4) Mitral valve insufficiency: (5) Leukocytosis: (6) Acute hypoxic respiratory failure: (7) Gout: (8) Chronic kidney disease, stage 4 (severe): (9) Elevated rheumatoid factor: PLAN: Plan Acute hypoxic respiratory failure secondary to acute exacerbation diastolic heart failure/right-sided heart failure/flash pulmonary edema -Echo done on 08/27/2023 showed biatrial enlargement, moderate mitral valve insufficiency, moderate pulmonary artery hypertension, stage III diastolic dysfunction and an EF of 50 to 55% -Patient -3.4 L for his hospital stay -Patient remained stable on room air at rest and with exertion -Patient does have CardioMEMS device -Decrease Bumex to 1 mg p.o. twice daily -TSH is within normal limits -Fluid restriction -Sodium restriction -Daily weights -Virgilio bandages lower extremities -CPAP at night -CT of the chest shows groundglass changes diffusely bilaterally -Previously had elevated autoimmune titers with follow-up pending -Rheumatoid lung is certainly in the differential -Pulmonary/critical care medicine following-appreciate input--> Case discussed with Dr. Gaxiola Gout -Right hand -Uric acid is 9.3 -Continue prednisone but increase from 20 mg to 60 mg dose per discussion with pulmonary medicine -Continue allopurinol and renally dose at 200 mg daily -X-rays do's show signs of destructive arthritis Elevated rheumatoid factor -Anti-CCP is pending -Rheumatoid factor is markedly elevated at 581 up from an outpatient test in October 2022 at which time it was 379. -Discussed with pulmonary medicine with regards to his pulmonary hypertension and elevated rheumatoid factor--> they would like to start him on prednisone 60 mg daily with outpatient follow-up with pulmonary medicine and rheumatology -Will refer to [facility] at discharge Sepsis -Sepsis has been ruled out -Cultures are unremarkable -Antibiotics discontinued on 08/31/2023 Hypokalemia -Resolved Subtherapeutic INR -Goal is 2-3 -INR is now therapeutic at 2.1 -Continue Coumadin 3 mg daily -Repeat INR in a.m. Chronic normocytic anemia secondary to CKD -Normocytic -Hemoglobin is overall stable -Suspect related to chronic renal disease Persistent atrial fibrillation -Continue Coumadin 3 mg -INR is therapeutic at 2.1 -Continue home carvedilol DM-2 -Hemoglobin A1c on 07/07/2023 was 6.2 -Continue home Farxiga hold other home oral agents -Will plan on discontinuing glimepiride at discharge and start Lantus as patient will be on steroids for some time -Start Lantus 10 units today and will uptitrate prior to discharge -SSI -Cardiac/carb controlled diet -Accu-Cheks as ordered CKD stage IIIb -Baseline serum creatinine appears to run between 2.0 and 2.5 -Serum creatinine is up to 2.72 so we will decrease Lasix from IV to p.o. at 1 mg p.o. twice daily of Bumex -Renal duplex was unremarkable -Discussed with nephrology okay to continue Bumex 2 mg IV push twice daily -Avoid nephrotoxins as able -Nephrology following-discussed case with Dr. Barahona Hypertension -Hold amlodipine -Continue carvedilol -Hold lisinopril will likely discontinue at discharge -Bumex 1 mg p.o. twice daily BPH with obstruction -Continue home finasteride History of KIMBERLY -Continue CPAP -Patient is compliant at baseline Obesity -BMI 29.4 -Recommend weight loss -Complicates treatment, prognosis, outcomes DVT prophylaxis -INR now therapeutic at 2.1 -Discontinue subcu heparin tomorrow if INR remains therapeutic range CODE STATUS -DNR CCA with no intubation as verified on admission Disposition -Plan is for discharge tomorrow as long as patient remains medically stable Charges/Coding Visit Charges Inpatient E&M: 90038 Subs Hosp L3
[2023-09-02 15:01] VITALS: BP 138/78; PULSE 80; RESP 18; TEMP 36.7; O2SAT 98
[2023-09-02 15:11] LABS: CCP IgG Antibodies 8 units (0-19); Cytoplasmic Ab (C-ANCA) <1:20 titer (Neg:<1:20); Perinuclear Ab (P-ANCA) <1:20 titer (Neg:<1:20)
[2023-09-02 16:32] LABS: Bedside Glucose 173 mg/dL (74-106)
[2023-09-02] MEDS: Gabapentin 100 MG Capsule PO (20:58)
[2023-09-02 21:00] VITALS: BP 130/77; PULSE 74; RESP 16; TEMP 36.6; O2SAT 98
[2023-09-02 22:20] LABS: Bedside Glucose 200 mg/dL (74-106)
[2023-09-03 03:00] VITALS: BP 120/75; PULSE 66; RESP 14; TEMP 36.5; O2SAT 100
[2023-09-03 03:11] VITALS: BMI 28.8
[2023-09-03] MEDS: Heparin Injection (Vial) 5,000 UNIT/ML VIAL 5000 UNIT SC (06:37)
[2023-09-03 06:58] LABS: Bedside Glucose 138 mg/dL (74-106)
[2023-09-03 08:18] LABS: Anion Gap 10 (5-15); BUN 75 mg/dL (7-18); Calcium,Total 9.7 mg/dL (8.5-10.1); Chloride 96 mmol/L (98-107); Creatinine, Serum 2.89 mg/dL (0.70-1.30); EST Glomerular Filtration Rate 22 mL/min (>60); Est Glom Filt Rate - Afr Amer 27 mL/min (>60); Estimated Creatinine Clearance 17.73 ml/min; Glucose 129 mg/dL (74-106); Potassium 3.5 mmol/L (3.5-5.1); Sodium Level 133 mmol/L (136-145)
[2023-09-03 09:00] VITALS: BP 151/75; PULSE 89; RESP 14; TEMP 36.6; O2SAT 97
[2023-09-03 09:09] LABS: International Normalized Ratio 2.7
[2023-09-03] MEDS: predniSONE 20 MG Tablet 60 MG PO (09:16)
[2023-09-03] MEDS: Allopurinol 100 MG Tablet 200 MG PO (09:16)
[2023-09-03] MEDS: Carvedilol 6.25 MG Tablet PO (09:16)
[2023-09-03] MEDS: Bumetanide 0.5 MG Tablet 1 MG PO (09:17)
[2023-09-03] MEDS: Insulin Glargine-YFGN 100 UNIT/ML Pen 10 UNIT SC (09:17)
[2023-09-03] MEDS: Finasteride 5 MG Tablet PO (09:18)
[2023-09-03] MEDS: Pantoprazole Sodium 40 MG Tablet PO (09:18)
[2023-09-03] MEDS: Cholecalciferol (VIT D3) 25 MCG TABLET (1,000 UNITS) PO (09:18)
[2023-09-03] MEDS: Empagliflozin 25 MG Tablet PO (09:18)
[2023-09-03] MEDS: Cyanocobalamin 500 MCG Tablet 1000 MCG PO (09:18)
[2023-09-03 09:31] VITALS: O2SAT 96; O2SAT 98
--- NOTE | 2023-09-03 09:32 | PCM.PN.REN ---
Subjective Subjective No new complaints today. Breathing is close to baseline. Objective Data Objective Data Vital Signs: Vital Signs Temp Pulse Resp BP Pulse Ox O2 Del Method O2 Flow Rate 97.9 F 89 14 151/75 H 97 Room Air 2 09/03/23 09:00 09/03/23 09:00 09/03/23 09:00 09/03/23 09:00 09/03/23 09:00 09/03/23 09:00 08/30/23 07:25 FiO2 35 08/29/23 15:20 Oxygen Flow Rate (L/min) 2 Oxygen Delivery Method Room Air Weight: 78.4 kg Body Mass Index (BMI) 28.8 Intake & Output: Intake and Output for Last 24 Hours 09/01/23 09/02/23 09/03/23 23:59 23:59 23:59 Intake Total 700 / 700 860 / 1110 400 / 400 Output Total 3625 / 3625 2075 / 2225 750 / 750 Balance -2925 / -2925 -1215 / -1115 -350 / -350 Lab / Micro Data 09/02/23 06:40 09/03/23 07:34 Labs: Laboratory Results - last 24 hr 08/30/23 06:25: Cycl Citrul Peptide IgG 8, KAILA Screen Positive H, c-ANCA Antibody <1:20, Atypical p-ANCA <1:20, p-ANCA Antibody <1:20, ANDREIA-1 Antibody <0.2, SS-A/Ro IgG Antibody < 0.2, SS-B/La IgG Antibody 1.0 H, Sm (Banuelos) Antibody <0.2, [employer] Antibody <0.2, Scl-70 Scleroderma Ab <0.2, Double Strand DNA Ab 11 H, Centromere B Antibody <0.2 09/02/23 11:44: POC Glucose 230 H 09/02/23 16:10: POC Glucose 173 H 09/02/23 21:07: POC Glucose 200 H 09/03/23 06:36: POC Glucose 138 H 09/03/23 07:34: PT 29.0 H, INR 2.7, Sodium 133 L, Potassium 3.5, Chloride 96 L, Carbon Dioxide 27.0, Anion Gap 10, BUN 75 H, Creatinine 2.89 H, Estim Creat Clear Calc 17.73, Est GFR (MDRD) Af Amer 27 L, Est GFR (MDRD) Non-Af 22 L, BUN/Creatinine Ratio 26.0 H, Glucose 129 H, Calcium 9.7 Micro: Microbiology 08/29/23 10:59 Blood Culture (Wb) - Anticubital Left Blood Culture - Preliminary No growth in 48 hours. 08/29/23 10:31 Blood Culture (Wb) - Anticubital Left Blood Culture - Preliminary No growth in 48 hours. 08/29/23 11:31 Urine, Clean Catch Urine Culture - Final Culture exhibits no growth. 08/30/23 07:15 Urine, Random Legionella Antigen - Final 08/30/23 07:15 Urine, Random Streptococcus pneumoniae Antigen (M - Final 08/29/23 11:40 Mucosa - Nasopharyngeal Respiratory Panel (PCR) - Final 08/29/23 09:42 Mucosa - Nose SARS-CoV-2, Influenza & RSV (PCR) - Final Physical Exam Narrative General: Alert and oriented x3, NAD. HEENT: Normocephalic, atraumatic. Mucous membrane moist without erythema. PERRLA, EOMI. Hearing is intact. Neck: Supple, no JVD. Trachea is midline. No thyromegaly or lymphadenopathy. Cardiovascular: Normal S1, S2. No rubs, murmurs, or gallops. Respiratory: Lungs are clear to auscultation bilaterally. No wheezing, rhonchi, or rales. Abdomen: Normal bowel sounds, soft, nontender, no guarding or rebound, no organomegaly. Extremities: No clubbing or cyanosis. There is 2+ lower extremity edema. Musculoskeletal: Full passive range of motion, no joint swelling. Psychiatric: Normal mood and affect. Skin: Warm and dry, no rash. Neurologic: Cranial nerve II to XII are grossly intact. No focal neurologic deficits. Assessment & Plan Assessment/Plan (1) Chronic kidney disease, stage 4 (severe): (2) Essential (primary) hypertension: (3) Acute hypoxic respiratory failure: PLAN: Plan Impression/Plan: The patient is an 78-year-old man with past history of chronic kidney disease stage G4, type 2 diabetes mellitus, hypertension, CAD, HFpEF (EF 55% on echocardiogram from 08/19/2023), KIMBERLY, pulmonary hypertension, BPH, and hyperlipidemia. The patient presented to hospital on 08/29/2023 with dyspnea. The patient was just admitted to hospital between 08/25/2023 until 08/28/2023 with acute hypoxic respiratory failure attributed to heart failure exacerbation. The patient was admitted to hospital for recurrent acute hypoxic respiratory although etiology for current respiratory failure is is continuing to be worked up. Nephrology is following for chronic kidney disease. Chronic kidney disease stage G4/A2. 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 The patient has baseline serum creatinine of 2.3 to 2.5 mg/dL. Renal function continues to be close to baseline. Acute hypoxic respiratory failure. I suspect dyspnea and hypoxemia is multifactorial. CT chest showed edema. reviewed Serologic workup. KAILA positive, rheumatoid factor positive, CCP antibodies pending, double-stranded DNA borderline, anti-SSB antibody borderline, ANCA antibody negative. he will need outpatient rheumatology evaluation for suspected rheumatoid arthritis. Possible discharge home today. We will arrange for outpatient follow-up
--- NOTE | 2023-09-03 09:54 | NURSING ---
Patient practiced self administration of AM Lantus with good success. Needs reinforcement of teaching for confidence.
[2023-09-03] MEDS: Insulin Lispro 100 UNIT/ML INSULN.PEN SC (11:03)
[2023-09-03 11:30] LABS: Bedside Glucose 184 mg/dL (74-106)
[2023-09-03 12:08] LABS: CCP IgG Antibodies 9 units (0-19)
--- NOTE | 2023-09-03 13:27 | PCM.DC.SUM ---
Providers Date of Admission: 08/29/23 Date of Discharge: 09/03/23 Primary Care Physician: Dr. Howard Escobar, Consultations 08/29/23 12:59 Consult: Nephrology Routine Consulting Provider: Raulito Barahona Reason for Consult: CKD EMERGENT Consult: No Notified: Yes Date Notified: 08/29/23 Time Notified: 12:13 Method of Notification: Verbal 08/29/23 19:43 Consult: Social Media Content Specialist / Pulmonary Medicine Routine Consulting Provider: Beni Mireles Reason for Consult: Fever unclear source, CHF, hypotension EMERGENT Consult: No MD Notified: Yes Date Notified: 08/30/23 Time Notified: 06:10 Method of Notification: Verbal Reason For Visit: ACUTE HYPOXIC RESPIRATORY FAILURE Diagnosis Discharge Diagnosis (1) Chronic kidney disease, stage 4 (severe): Status: Chronic Code(s): N18.4 - Chronic kidney disease, stage 4 (severe) (2) Essential (primary) hypertension: Status: Chronic Code(s): I10 - Essential (primary) hypertension (3) Acute hypoxic respiratory failure: Status: Acute Code(s): J96.01 - Acute respiratory failure with hypoxia Medications at Discharge Home Medications finasteride 5 mg tablet 5 mg PO DAILY prostate 12/19/20 warfarin 2.5 mg tablet See Rx Instructions PO .COMPLEX blood thinner 03/11/21 cyanocobalamin (vitamin B-12) 1,000 mcg tablet (Vitamin B-12) 1,000 mcg PO DAILY supplement 06/26/22 carvedilol 6.25 mg tablet 6.25 mg PO BID #60 tabs 05/13/23 amlodipine 5 mg tablet 5 mg PO DAILY #90 tabs 07/07/23 metolazone 2.5 mg tablet 2.5 mg PO .Thursday and #8 tabs 08/28/23 dapagliflozin propanediol 10 mg tablet (Farxiga) 10 mg PO DAILY diabetes 08/29/23 gabapentin 100 mg capsule 100 mg PO QHS unsure 08/29/23 pantoprazole 40 mg tablet,delayed release 40 mg PO DAILY prevent stomach ulcers 08/29/23 allopurinol 100 mg tablet 200 mg (2 x 100 mg) PO DAILYCM #30 tabs 09/03/23 bumetanide 0.5 mg tablet 1 mg (2 x 0.5 mg) PO BID #120 tabs 09/03/23 insulin glargine-yfgn 100 unit/mL (3 mL) subcutaneous pen 10 unit (0.1 mL) subcut DAILY #15 mL 09/03/23 pen needle, diabetic 33 gauge x 3/16 #100 ea 09/03/23 prednisone 20 mg tablet 60 mg (3 x 20 mg) PO BREAKFAST #63 tabs 09/03/23 Hospital Course Operations None Procedures EKG and - (Renal artery duplex/hand x-rays/chest x-ray/CT chest) Summary of Care Provided Minutes Spent on Discharge: 45 Hospital Course: Mr. Osman is an 78-year-old white male who presented to the emergency department at [facility] on the morning of 08/29/2023 with acute onset shortness of breath. The patient had a recent and admission for 3 days for heart failure and was discharged on 08/28/2023 with improvement in his symptoms. His oxygen saturation on room air at discharge was 96% at rest and 93% with exertion. He was asked to continue his home Lasix and metolazone was added 2 times weekly. He was to monitor his fluid and salt intake closely and have close follow-up with cardiology and schedule a pulmonary medicine consult if his shortness of breath was persistent. The patient reported on admission that he went home and was tired so he took a nap. He got up did a few things and went to bed about an hour later. He states he woke abruptly from sleeping while wearing his CPAP with marked shortness of breath and became very anxious so he came to the emergency department for further evaluation. He denies any cough, fever, chills, sputum, and his only real complaint was shortness of breath at rest and with exertion. He had ongoing swelling which had really unchanged since discharge and overall his weight was down. His weight was down 3 kg from his last hospitalization. Vital signs on presentation showed a temperature of 97.5, heart rate 112 that improved with oxygenation to 84, blood pressure was initially 155/104 with repeat at 125/62 once he was placed on oxygen, oxygen saturations were 77% on room air with a respiratory rate that has been anywhere from 18-36. His oxygenation did improve to 93% on 4 L nasal cannula. His CBC showed a leukocytosis with a white count of 24.7 up from 12.6 yesterday and a left shift. His hemoglobin was 12 and stable. INR was 1.9 down from 2.3 yesterday. His sodium was 135 with a bicarb of 18 and an anion gap of 12. BUN was 60 with a serum creatinine of 2.22. Serum glucose was 119. Lactic acid was 1.1. His total bilirubin was 1.4 with no more LFTs. BNP was 226.2 down from 372 at his last hospitalization. His troponin was 144 and pretty comparable to his previous troponin. Procalcitonin was 0.56. His UA is not consistent with infection. Chest x-ray shows mild pulmonary vascular congestion. He was admitted to the PCU and placed on Bumex IV twice daily and we initially placed him on empiric antibiotics with his elevated white count and repeated cultures. All of his cultures were negative so antibiotics were discontinued. He did develop isolated fever and transient hypotension for which she was transferred to the ICU. All of his blood pressures and temperatures were normal while in the ICU so he was transferred back to PCU. Nephrology and pulmonary medicine were consulted due to the fact of him having pulmonary artery hypertension. We did review previous autoimmune studies that noted an abnormal KAILA and a rheumatoid factor. We repeated his rheumatoid factor and is markedly elevated at 581 which was higher than previous. CCP was ordered. His KAILA was also positive and he was found to have positive SSB and double-stranded DNA. There was concern that his lung disease and elevated pulmonary pressures may be related to autoimmune disorder and pulmonary medicine recommended starting him on steroids 60 mg a day for the next 2 weeks and they would follow him as an outpatient and reassess and follow-up on his autoimmune workup. He also, unfortunately, developed gout in his right hand during his hospital course which we started him on allopurinol. He reported he had been on this previously but stopped taking it as it was giving him some diarrhea. He was willing to retry it and see if he tolerated it better this time so we did send him home with a 1 month supply. We were eventually able to transition his IV Bumex to oral once his serum creatinine started trending up from his baseline. Again his baseline is 2.0-2.5. By the time of discharge his serum creatinine was 2.89. Nephrology felt that he was able to be discharged home and that his kidney function would stabilize. He will hold the rest of his Bumex today and restart Bumex tomorrow. He still is supposed to take his metolazone twice weekly on Thursday and . With him being on higher dose steroids we did discontinue his glimepiride which would increase his risk for hypoglycemia anyway due to his renal dysfunction and started him on subcu insulin 10 units daily. His fasting blood sugar at the time of discharge was 129. He is to maintain the insulin while he is on his steroids and this may be able to be tapered, discontinued or may be more beneficial for him to maintain even after he is off steroids depending on what his blood sugars do. He was discharged home in stable condition on 09/03/2023. He is to continue his Bumex 1 mg p.o. twice daily, metolazone 2.5 mg on Thursday and , prednisone 60 mg daily until he follows up with pulmonary medicine, allopurinol 200 mg daily. We stopped his Lasix, glimepiride, and lisinopril. His blood pressures were well-controlled despite discontinuing his lisinopril but will need to be monitored. Lisinopril was discontinued due to his renal function. He is to follow-up with cardiology on 09/09/2023, pulmonary medicine on 09/18/2023, and I have asked him to follow-up with Dr. Barahona within the next [address] Barahona's office will call him for appointment per discussion with nephrology. I also asked him to follow-up with his primary care physician within the next 2 weeks. Discharge diagnoses: Acute hypoxic respiratory failure secondary to acute exacerbation of diastolic and right-sided heart failure Flash pulmonary edema Gout Elevated rheumatoid factor Hypokalemia-resolved Subtherapeutic INR-now therapeutic Chronic normocytic anemia secondary to CKD Persistent atrial fibrillation DM-2 CKD stage IIIb Hypertension BPH with obstruction KIMBERLY Obesity Physical Exam Narrative Patient states he is ready to go home. States his hand feels much better. No significant shortness of breath with exertion and is feeling much better overall. Const alert, oriented x3, no apparent distress and well nourished; Negative for average body habitus or healthy appearing Constitutional Narrative: Elderly, obese, white male, sitting up on the edge of the bed bed, remains on room air, appears comfortable, nontoxic General Appearance: cooperative, comfortable, well kempt and well developed Orientation / Consciousness: awake, oriented to person, oriented to place and oriented to time Exam Limitations: no limitations Nutritional Appearance: overweight HEENT normocephalic, head/scalp atraumatic and moist oral mucous membranes Eyes PERRL, EOMs intact bilaterally and conjunctivae normal Eyes Narrative: No scleral icterus Neck no lymphadenopathy and supple Neck Narrative: neck is short and thick, trachea midline, no thyroid enlarged noted Resp normal respiratory effort, no retractions, no use of accessory muscles and clear to auscultation bilaterally Auscultation: Negative for crackles, rhonchi or wheezes Cardio regular rate, S1 normal heart sound, S2 normal heart sound, no murmurs, no rub, no gallops and no clicks Cardio Narrative: Irregularly irregular rhythm with regular rate GI normal to inspection, nondistended, normoactive bowel sounds, soft to palpation and non-tender Extremity Extremity Narrative: 1+ pitting edema bilateral lower extremities, no cyanosis or clubbing, Virgilio bandages in place, right hand is less swollen and no longer tender to touch Skin no rashes or lesions noted, no wounds, skin turgor normal, no jaundice, no petechiae and no mottling Skin Narrative: Skin is pale, scattered ecchymosis on hands and arms Neuro oriented x3, CN's II-XII intact bilaterally, moves all extremities and no focal motor deficits Speech: speech normal Psych Psych Narrative: Eye contact is good, calm, interacts appropriately Mood & Affect: anxious Weight / BMI Weight Weight: 78.4 kg Body Mass Index (BMI) 28.8 ABG / Lab / Microbiology Data 09/02/23 06:40 09/03/23 07:34 Laboratory: Laboratory Results - last 24 hr 08/30/23 06:25: Cycl Citrul Peptide IgG 8, c-ANCA Antibody <1:20, Atypical p-ANCA <1:20, p-ANCA Antibody <1:20 09/02/23 06:40: Cycl Citrul Peptide IgG 9 09/02/23 16:10: POC Glucose 173 H 09/02/23 21:07: POC Glucose 200 H 09/03/23 06:36: POC Glucose 138 H 09/03/23 07:34: PT 29.0 H, INR 2.7, Sodium 133 L, Potassium 3.5, Chloride 96 L, Carbon Dioxide 27.0, Anion Gap 10, BUN 75 H, Creatinine 2.89 H, Estim Creat Clear Calc 17.73, Est GFR (MDRD) Af Amer 27 L, Est GFR (MDRD) Non-Af 22 L, BUN/Creatinine Ratio 26.0 H, Glucose 129 H, Calcium 9.7 09/03/23 11:02: POC Glucose 184 H Microbiology: Microbiology 08/29/23 10:59 Blood Culture (Wb) - Anticubital Left Blood Culture - Final No growth in 5 days. 08/29/23 10:31 Blood Culture (Wb) - Anticubital Left Blood Culture - Final No growth in 5 days. 08/29/23 11:31 Urine, Clean Catch Urine Culture - Final Culture exhibits no growth. 08/30/23 07:15 Urine, Random Legionella Antigen - Final 08/30/23 07:15 Urine, Random Streptococcus pneumoniae Antigen (M - Final 08/29/23 11:40 Mucosa - Nasopharyngeal Respiratory Panel (PCR) - Final 08/29/23 09:42 Mucosa - Nose SARS-CoV-2, Influenza & RSV (PCR) - Final D/C Instructions Discharge Diet: Low fat / Low cholesterol, 1800 Calorie Control Diet, 8 Cup Fluid Restriction and 2000 mg Sodium Diet Discharge Activity: Return to Normal Activity Meaningful Use Info Meaningful Use Diagnoses (Choose all that apply): CHF CHF VIRGILIO/ARB ordered at discharge?: No Reason VIRGILIO/ARB not ordered?: Worsening renal disease Documented LVEF (%): 50 Discharge Plan Admission Admit Date/Time: 08/29/23 12:05 Primary Reason for Your Visit: Shortness of breath Attending Provider: Jolene Valentine Primary Care Provider: Howard Escobar Consulting Providers: Raulito Barahona Instructions Additional Instructions / Restrictions: 1. Stop Lasix and start Bumex as directed below 2. Weigh yourself daily without close on at the same time in the morning and if you gain more than 2 pounds in a 24-hour period take 1 extra metolazone tablet 3. We added metolazone, which is a diuretic as well, to be taken every Thursday and . Please take midday. 4. Please follow-up with cardiology and pulmonary medicine as scheduled 5. Please have your INR checked on 09/07/2023 6. Continue steroids 60 mg daily until you follow-up with pulmonary medicine for any new directions. Please do not stop steroids abruptly 7. Please call your primary care physician and ask for a basic metabolic profile to be performed on 09/07/2023 to recheck your kidney function and potassium with the diuretics and the steroids. Discharge Orders/Prescriptions Prescriptions: New prednisone 20 mg Tablet 60 mg PO BREAKFAST Qty: 63 0RF insulin glargine-yfgn 100 unit/mL (3 mL) Insulin Pen 10 unit subcut DAILY Qty: 15 0RF bumetanide 0.5 mg Tablet 1 mg PO BID Qty: 120 0RF Rx Instructions: Start on 09/04/2023 allopurinol 100 mg Tablet 200 mg PO DAILYCM Qty: 30 0RF (DME) pen needle, diabetic 33 gauge x 3/16 needle See Rx Instructions .Route Qty: 100 0RF Rx Instructions: As directed Continued finasteride 5 mg tablet 5 mg PO DAILY Patient Comments: TAKE 1 TABLET BY MOUTH ONCE DAILY cyanocobalamin (vitamin B-12) [Vitamin B-12] 1,000 mcg tablet 1,000 mcg PO DAILY warfarin 2.5 mg tablet See Rx Instructions PO .COMPLEX Rx Instructions: 5mg once daily po every thu; Managed by PCP 2.5 mg daily po every thu metolazone 2.5 mg tablet 2.5 mg PO .Thursday and Qty: 8 1RF Farxiga 10 mg tablet 10 mg PO DAILY gabapentin 100 mg capsule 100 mg PO QHS Rx Instructions: take 1-2 100mg capsules at bedtime daily; pantoprazole 40 mg tablet,delayed release (DR/EC) 40 mg PO DAILY carvedilol 6.25 mg tablet 6.25 mg PO BID Qty: 60 11RF Rx Instructions: must administer with a meal/food amlodipine 5 mg tablet 5 mg PO DAILY Qty: 90 3RF Discontinued glimepiride 1 mg tablet 1 mg PO DAILY warfarin [Jantoven] 3 mg tablet 3 mg PO .COMPLEX Rx Instructions: 3 mg orally thursday and thursday; lisinopril 20 mg tablet 20 mg PO DAILY furosemide [Lasix] 40 mg tablet 40 mg PO BID Qty: 180 3RF Referrals / Follow Up: Howard Escobar DO [Primary Care Provider] - Within 1 Week Victorina Teran NP, LOWER IN SUPERVISOR-C [Med Staff - Adv Practice Prof] - 09/18/23 8:45 am Beatriz Franco LOWER IN SUPERVISOR, LOWER IN SUPERVISOR-C [Non-Staff -Ordering Privileges] - 09/09/23 10:30 am Disposition Disposition (needs filled in before D/C Order can be placed): Home, Self Care Charges/Coding Visit Charges Inpatient E&M: 34451 Disch Hosp >30min
--- NOTE | 2023-09-03 14:30 | CASEMGMT ---
Patient has order for discharge. RN CM in to discuss needs at discharge. Patient denies needs, up independent in room. Patient had no further questions or concerns.
== END 2023-09-03 18:10 | disposition home or self-care (01) | DRG 291 ==
LOC: ED 10:53 → PCU 11:45 → ICU 08-30 06:35 → PCU 08-30 17:26
PROVIDERS: Family Medicine; Internal Medicine Critical Care Medicine; Internal Medicine Nephrology; Admitting Provider Internal Medicine; Emergency Provider Emergency Medicine; PCP Family Medicine; Visit Provider Internal Medicine
DX: I13.0 Hypertensive heart and chronic kidney disease with heart failure and stage 1 through stage 4 chronic kidney disease, or unspecified chronic kidney disease (principal); J96.01 Acute respiratory failure with hypoxia; J81.0 Acute pulmonary edema; I50.33 Acute on chronic diastolic (congestive) heart failure; I48.19 Other persistent atrial fibrillation; J84.9 Interstitial pulmonary disease, unspecified; N13.8 Other obstructive and reflux uropathy; I27.20 Pulmonary hypertension, unspecified; D63.1 Anemia in chronic kidney disease; E11.22 Type 2 diabetes mellitus with diabetic chronic kidney disease; I42.2 Other hypertrophic cardiomyopathy; E11.51 Type 2 diabetes mellitus with diabetic peripheral angiopathy without gangrene; I34.0 Nonrheumatic mitral (valve) insufficiency; I25.10 Atherosclerotic heart disease of native coronary artery without angina pectoris; I44.7 Left bundle-branch block, unspecified; E78.5 Hyperlipidemia, unspecified; G47.33 Obstructive sleep apnea (adult) (pediatric); E87.6 Hypokalemia; M10.041 Idiopathic gout, right hand; E66.9 Obesity, unspecified; Z79.84 Long term (current) use of oral hypoglycemic drugs; Z87.891 Personal history of nicotine dependence; Z79.01 Long term (current) use of anticoagulants; Z82.3 Family history of stroke; N26.1 Atrophy of kidney (terminal); Z66 Do not resuscitate; Z68.31 Body mass index [BMI] 31.0-31.9, adult; R03.1 Nonspecific low blood-pressure reading; N40.1 Benign prostatic hyperplasia with lower urinary tract symptoms; Z79.52 Long term (current) use of systemic steroids
CPT/HCPCS: 36415; 71045; 71250; 73130; 80048; 80053; 80069; 80202; 81001; 82962; 83605; 83735; 83880; 84100; 84145; 84443; 84484; 84550; 85025; 85610; 85730; 86038; 86200; 86225; 86235; 86256; 86431; 87040; 87086; 87449; 87631; 87633; 87641; 93005; 93975; 94002; 94668; 97116; 97162; 97165; 97530; 97802; 99252; 99285; J7030; J7040; A4216; G0463

== ENCOUNTER → 2023-09-11 | Outpatient (CLI) | payer MEDICARE, BC, SELFPAY ==
--- OUTSIDE RECORDS SUMMARY | 2023-09-11 17:03 | XMS RPT_ITS | CCD ---
Author Name Unknown Address [address] [place] [address] Organization [facility] Care Team Providers Care Dough Puncher Name Role Phone VALERIANO STONER, DR HOWARD [...] Patient encounter procedure DR HOWARD BAL MD [facility] Start: 04-29-[address] HOWARD BAL MD Fa cility:B Start: 04-29-2022 End: 05-03-2022 Lab-Standing Order DR HOWARD [facility] Payers Date Payer Category Payer Medicare [id number] 2021 Unknown [id number] 1945 Unknown [id number] [id number] 1945 Unknown [id number] [id number] [id number] 1945 Unknown [id number] [id number] Progress note 11-01-2020 Note Date & Type Note Facility 11-01-2020 Note HNO ID: [id number] Author: Dakota Alfaro Service: ? Author Type: Physician Type: Progress Notes Filed: 11/01/2020 2:50 PM Note Text: Subjective: Patient is status post an upper and lower endoscopy. Completed at the [facility] in [place]. Biopsy of his duodenum was negative. Stomach [...] that point he will get it rescheduled. [facility] Progress note 10-22-2020 Note Date & Type Note Facility 10-22-2020 Note HNO ID: [id number] Author: Dakota Alfaro Service: ? Author Type: [...] UMBILICAL ARMEN,5+Y/O,REDUC ? ? - [facility] ? ? - TRANSURETHRAL ELEC-SURG [...] HISTORY: FAMILY HI (more content not included)... [facility] Progress note 10-18-2020 Note Date & Type Note Facility 10-18-2020 Note HNO ID: [id number] Author: Patrick Olivier (Tech) Service: ? Author Type: Student Assistance Counselor Type: Progress Notes Filed: 10/18/2020 2:08 PM [...] DATE: October 18, 2020 TIME: 2:07 PM [facility] Progress note 10-18-2020 Note Date & Type Note Facility 10-18-2020 Note HNO ID: [id number] Author: Dakota Mir Alfaro Service: ? Author [...] - REPAIR UMBILICAL ARMEN,5+Y/O,REDUC - [facility] - TRANSURETHRAL ELEC-SURG PROSTATECTOM Current [...] entered by the nurse and reviewed by in Nursing Notes: Rozina Cifuentes RN 10/18/2020 9:13 AM Signed REVIEW OF SYSTEMS: General: The patient denies fatigue, notes weight loss, (more content not included)... [facility] Evaluation + Plan note Note Date & Type Note Facility Evaluation + Plan note No data available for this section [facility] Hospital Discharge instructions Note Date & Type Note Facility Hospital Discharge instructions No data available for this section [facility] Progress note Note Date & Type Note Facility Progress note No data available for this section [facility] Summary Purpose Family History No Family History Records FoundNo Family History Records Found Advance Directives No Advanced Directives Records FoundNo Advanced Directives Records Found Additional Source Comments (unrecognized sect ion and content) No Status Records FoundNo Status Records Found INFORMATION SOURCE (unrecogn ized section and content) DATE CREATED AUTHOR AUTHOR'S ORGANIZ ATION 04/27/2023 [facility] ([place]) Care Team (unrecognized sect ion and content) Care Team Personnel Name: HOWARD BAL MD Member Role: Primary Care Physician Address: Address: [place] [id number] [place] [address] Patient Care team informatio n (unrecognized section and content) Care Team Personnel Name: HOWARD BAL MD Member Role: Primary Care Physician Address: Address: [place] [id number] FOR RECORDS PERTAINING TO PATIENTS WHO [...] BE BASED ON THE PRIMARY CLINICAL RECORDS. [facility] [employer] [facility]. provides no warranty or guarantee of the accuracy or completeness of information in this document.
[2023-09-11 17:25] LABS: Absolute Lymphocyte Count 0.71 X10^3/uL (0.83-4.51); Basophil# 0.09 X10^3/uL; Basophil% 0.4 % (0-1); Hematocrit 38.4 % (40-54); Lymphocyte # 0.71 X10^3/ul (0.83-4.51); Lymphocyte % 3.4 % (19-41); Mean Corp Hgb Conc 33.9 g/dL (32-36); Mean Corpuscular Hgb 28.8 pg (27.0-32.0); Mean Platelet Vol. 12.7 fl (6.2-12.0); Monocyte# 0.57 X10^3/uL; Monocyte% 2.7 % (0-10); NRBC Flagged by Analyzer 0 % (0-5); Neutrophil % 91.3 % (47-70); Platelet Count 321 K/mm3 (150-450); RBC Distribution Width CV 13.1 % (11.6-14.6); RBC Distribution Width SD 40.3 fl (35.1-43.9); Red Blood Count 4.52 M/mm3 (4.6-6.2); White Blood Count 20.8 K/mm3 (4.4-11.0)
[2023-09-11 18:44] LABS: ALB/GLOB Ratio 0.8 RATIO (0.9-2.4); AST(SGOT) 33 U/L (15-37); Alanine Aminotransfer ALT/SGPT 69 U/L (16-61); Albumin, Serum 3.2 g/dL (3.2-5.0); Alkaline Phosphatase 86 U/L (45-117); Anion Gap 17 (5-15); BUN 125 mg/dL (7-18); Calcium,Total 9.2 mg/dL (8.5-10.1); Chloride 82 mmol/L (98-107); Creatinine, Serum 2.78 mg/dL (0.70-1.30); EST Glomerular Filtration Rate 24 mL/min (>60); Est Glom Filt Rate - Afr Amer 28 mL/min (>60); Globulin 4.2 g/dL (2.2-4.2); Glucose 253 mg/dL (74-106); Potassium 3.1 mmol/L (3.5-5.1); Protein, Total 7.4 g/dL (6.4-8.2); Sodium Level 125 mmol/L (136-145)
== END | disposition home or self-care (01) ==
LOC: LAB 16:18
PROVIDERS: PCP Family Medicine; Referring Provider Internal Medicine Rheumatology; Visit Provider Internal Medicine Rheumatology
DX: M05.79 Rheumatoid arthritis with rheumatoid factor of multiple sites without organ or systems involvement (principal); Z79.899 Other long term (current) drug therapy
CPT/HCPCS: 36415; 80053; 85025

== ENCOUNTER 2023-09-14 13:36 | Inpatient (IN) | payer MEDICARE, BC, SELFPAY ==
[2023-09-14 13:38] VITALS: BP 130/68; PULSE 68; RESP 18; TEMP 35.7; O2SAT 98; BMI 28.5
--- NOTE | 2023-09-14 15:20 | EDS_ITS ---
HPI History of Present Illness Chief Complaint: Abn Labs [facility] Medical History Abnormal ankle brachial index (LOKI) Acute hypoxic respiratory failure Anemia due to stage 3b chronic kidney disease Back pain BPH (benign prostatic hyperplasia) Cardiology follow-up encounter CHF NYHA class III Chronic combined systolic and diastolic CHF (congestive heart failure) Chronic kidney disease, stage 3b Claudication Constipation CPAP (continuous positive airway pressure) dependence Diabetes Diarrhea Dietary restriction Elevated troponin (01/2021) Essential (primary) hypertension Gout Heartburn History of echocardiogram History of edema History of irregular heartbeat History of non-ST elevation myocardial infarction (NSTEMI) (07/25/21) History of pain when walking History of steroid therapy History of tobacco use HLD (hyperlipidemia) Hypertension Hypertrophic cardiomyopathy Hypokalemia Joint pain Lactic acidosis Left bundle branch block Leg cramps Leukocytosis Longstanding persistent atrial fibrillation Mitral valve insufficiency Night sweats 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 Obesity (BMI 30.0-34.9) KIMBERLY (obstructive sleep apnea) Persistent atrial fibrillation Poor appetite Presence of implantable pulmonary artery pressure and heart rate monitoring system (03/25/21) Renal infarct Restless legs Secondary pulmonary arterial hypertension Shortness of breath on exertion Wears glasses Home Medications finasteride 5 mg tablet 5 mg PO DAILY prostate 12/19/20 [History Last Taken 12/22/20] warfarin 2.5 mg tablet See Rx Instructions PO .COMPLEX blood thinner 03/11/21 [History Last Taken 05/31/22] cyanocobalamin (vitamin B-12) 1,000 mcg tablet (Vitamin B-12) 1,000 mcg PO DAILY supplement 06/26/22 [History Last Taken Unknown] carvedilol 6.25 mg tablet 6.25 mg PO BID #60 tabs 05/13/23 [Rx Last Taken Unknown] amlodipine 5 mg tablet 5 mg PO DAILY #90 tabs 07/07/23 [Rx Last Taken Unknown] dapagliflozin propanediol 10 mg tablet (Farxiga) 10 mg PO DAILY diabetes 08/29/23 [History Last Taken Unknown] gabapentin 100 mg capsule 100 mg PO QHS unsure 08/29/23 [History Last Taken Unknown] pantoprazole 40 mg tablet,delayed release 40 mg PO DAILY prevent stomach ulcers 08/29/23 [History Last Taken Unknown] allopurinol 100 mg tablet 200 mg (2 x 100 mg) PO DAILYCM #30 tabs 09/03/23 [Rx Last Taken Unknown] bumetanide 0.5 mg tablet 1 mg (2 x 0.5 mg) PO BID #120 tabs 09/03/23 [Rx Last Taken Unknown] insulin glargine-yfgn 100 unit/mL (3 mL) subcutaneous pen 10 unit (0.1 mL) subcut DAILY #15 mL 09/03/23 [Rx Last Taken Unknown] pen needle, diabetic 33 gauge x 3/16 #100 ea 09/03/23 [Rx Last Taken Unknown] prednisone 20 mg tablet 60 mg (3 x 20 mg) PO BREAKFAST #63 tabs 09/03/23 [Rx Last Taken Unknown] metolazone 2.5 mg tablet 2.5 mg PO .Thursday #8 tabs 09/09/23 [Rx Last Taken Unknown] potassium chloride 20 mEq tablet,extended release 20 meq PO .COMPLEX 09/09/23 [History Last Taken Unknown] Allergy/AdvReac Type Severity Reaction Status Date / Time rivaroxaban [From Xarelto] Allergy Bleeding Verified 09/14/23 13:37 metoprolol AdvReac bradycardia Verified 09/14/23 13:37 Family History Father Heart disease Sister Heart disease Brother Heart disease Other Arthritis CVA (cerebral vascular accident) Depression Mental disorder Surgical History History of appendectomy History of cataract extraction History of left heart catheterization (02/19/21) History of transurethral resection of prostate (01/2019) History of ventricular septal myectomy (2000) Hx of umbilical hernia repair Social History Smoking Status: Former smoker how long ago did patient quit smokin years ago 0.25ppd second hand exposure: Yes alcohol intake: never caffeine: Yes Type: coffee Number of servings: 1 what type of physical activity do you participate in: other details: treadmill frequency: daily EXAM Physical Exam Const Vital Signs: 09/14/23 13:38 09/14/23 15:49 09/14/23 17:32 Temperature 96.3 F L Temperature Source Temporal Pulse Rate 68 64 Respiratory Rate 18 15 Respiratory Effort Normal Non-Labored Respiratory Pattern Normal Blood Pressure 130/68 H Blood Pressure Mean 88 Pulse Ox 98 96 Oxygen Delivery Method Room Air [facility] [place] Medical decision making narrative: HISTORY OF PRESENT ILLNESS: 78-year-old male here with concern for weakness, low hemoglobin abnormal labs. Patient states he was sent in by his primary doctor Dr. Escobar. He further sta michelle he has been having diffuse weakness for the last several days. Notes last warfarin dose was yesterday. Denies any bleeding diathesis including hematemesis, melena, hematochezia. Denies any chest pain or shortness of breath. Denies any headache. Denies any abdominal pain. Denies any changes to bowel or bladder habits. REVIEW OF SYSTEMS: Pertinent positives: Diffuse weakness, Pertinent negatives: Focal weakness, chest pain, shortness of breath, abdominal pain, leg swelling PHYSICAL EXAM: Nursing triage notes reviewed, Vital signs reviewed Constitutional: please see mdm HENT: MMM Eyes: Pupils equal round and reactive to light, Extraocular muscles intact Neck: No stridor, no JVD, full neck ROM Lungs: Clear to auscultation, No wheezing or rales. No increased work of breathing, no conversational dyspnea, no accessory muscle use, no nasal flaring. No respiratory distress noted Heart: Regular rate and rhythm, No murmurs, No rubs and No gallops, 2+ distal pulses (radial, femoral, posterior tibial) in all extremities Abdomen: Soft, there is no tenderness, rigidity, rebound or guarding, no obvious peritoneal signs, no palpable pulsatile abdominal masses, no auscultated abdominal bruit : No CVAT Extremities: No edema Neuro: No focal neurological deficits, cranial nerves II through XII intact, 5/5 strength in all extremities. Intact sensation to light touch in all extremities, 2+ reflexes bilateral patella tendons. No ataxia. Skin: No rash or lesions noted MEDICAL DECISION MAKING: Chief Complaint: Weakness, abnormal labs External records reviewed: CBC from 09/11/2023 shows a hemoglobin of 13 white count of 20.8, BMP showed sodium of 122 down from 132 on 09/02/2023, potassium was within normal limits however hemolyzed, noted worsening CKD with a baseline c reatinine of 2.7 up to 3.05 today Factors affecting care: CHF on Bumex, atrial fibrillation on warfarin, peripheral artery disease, CKD, hyperlipidemia, hypertension, type 2 diabetes Social determinants of health: Elderly History obtained from others: Patient's primary doctor Consults: none MDM Narrative: Patient was initially hemodynamically stable, afebrile, nontoxic-appearing. No focal neurologic deficits on initial exam. I considered the following differential diagnosis: Electrolyte abnormality, anemia, ALL IMAGES (IF OBTAINED) HAVE BEEN PERSONALLY REVIEWED AND INTERPRETED BY MYS ELF. EKG with rate controlled atrial fibrillation, left ax deviation, bundle branch block, prolonged QT, no obvious STEMI, similar morphology to prior EKG on September 01, 2023 CBC with marked leukocytosis worsening from prior, stable anemia, no thrombocytopenia I have personally reviewed the patient's chest x-ray. Chest x-ray is unremarkable for pulmonary edema, pneumothorax, pneumonia or focal c ardiopulmonary abnormality. Initial troponin elevated consistent with myocardial ischemia, likely demand event from CEE on CKD, similar to prior CMP with hyponatremia, hypokalemia, CEE on CKD UA with evidence of infection The synthesis of the patient's history, physical exam, labs, images suggest evidence of CEE on CKD, hyponatremia, hypokalemia, demand myocardial ischemia, UTI given the patient's advanced age, electrolyte abnormalities, signs of infection, signs of worsening renal function he will require inpatient mission for electrolyte repletion, UTI treatment. Discussed with Dr. Urbina who recommended PCU full admit. The patient and/or family, caregivers express understanding. The patient and/or family, caregivers agrees with the plan. Shared decision making: I will have a discussion with the patient and or visitors regarding risk/benefits of further testing or admission. They will be made aware of of the risk/benefits inherent in this decision they will be given the opportunity to voice understanding. Total critical care time today provided was at least 0 minutes. This excludes separately billable procedures. Critical care time (if documented) is secondary to the patient having high probability of clinically significant/life threatening deterioration in the patient's condition which required my urgent intervention. Impression: 1. Encounter for laboratory assessment 2. CEE on CKD 3. Hyponatremia 4. Hypokalemia 5. Elevated troponin (demand ischemia) Dispo: admit to PCU Lab Data Labs: Laboratory Results - last 24 hr 09/14/23 09/14/23 09/14/23 15:30 15:47 16:17 WBC 26.1 H RBC 4.32 L Hgb 12.6 L Hct 36.1 L MCV 83.6 MCH 29.2 MCHC 34.9 RDW Std Deviation 39.5 RDW Coeff of Kiersten 13.0 Plt Count 272 MPV 13.2 H Immature Gran % (Auto) 2.000 H Neut % (Auto) 92.7 H Lymph % (Auto) 2.5 L Yell % (Auto) 2.6 Eos % (Auto) 0.0 Baso % (Auto) 0.2 Absolute Neuts (auto) 24.2 H Absolute Lymphs (auto) 0.65 L Nucleated RBC % 0 Differential Comment SCANNED PT 38.2 H INR 3.8 Sodium 124 L Potassium 3.3 L Chloride 81 L Carbon Dioxide 25.0 Anion Gap 18 H BUN 131 H* Creatinine 3.06 H Estim Creat Clear Calc 18.15 Est GFR (MDRD) Af Amer 25 L Est GFR (MDRD) Non-Af 21 L BUN/Creatinine Ratio 42.8 H Glucose 264 H Calcium 8.8 Total Bilirubin 0.80 AST 34 ALT 65 H Alkaline Phosphatase 84 Troponin I High Sens 195 H* B-Natriuretic Peptide 203.8 H Total Protein 7.2 Albumin 3.2 Globulin 4.0 Albumin/Globulin Ratio 0.8 L Urine Color Yellow Urine Clarity Sl. Cloudy Urine pH 6.0 Ur Specific Catarina 1.015 Urine Protein 30 H Urine Glucose (UA) 1000 H Urine Ketones Negative Urine Occult Blood 10 H Urine Nitrite Positive H Urine Bilirubin Negative Urine Urobilinogen Normal Ur Leukocyte Esterase 25 H Urine RBC 0-5 SEEN Urine WBC 0-5 SEEN Ur Squamous Epith Cells 0-5 SEEN Amorphous Sediment 1+ URATE Urine Bacteria 0 SEEN Urine Mucus 0 SEEN Blood Type A NEGATIVE Antibody Screen NEGATIVE Radiography Diagnostic Testing: Clinical Impression(s) from Imaging Studies Chest X-Ray 09/14/23 15:36 IMPRESSION: Minimal left basilar atelectasis. Otherwise no acute cardiopulmonary disease. Electronically Signed: Yvonne Gan MD at 16:48 EST , Discharge Plan Dx/Rx/DC Orders Clinical Impression: Acute kidney injury superimposed on CKD Disposition Disposition: [facility] Capacity Legal Hand Clerical Verifier Reflex Medical hold order details:: IF a medical hold is selected below, a suggested order for a MEDICAL HOLD will reflex upon signing the document. Next of kin: [place] law dictates a PRIORITY LIST for identifying legal decision-maker/legal n ext of kin in the following order (LNOK): 1st: The patient?s legal guardian, if any 2nd: The patient's spouse (if status is questionable, consult Risk Management) 3rd: The patient?s adult child(megha) (majority, if multiple children) 4th: The patient?s parents 5th: The patient?s adult siblings (majority, if multiple children siblings)
--- NOTE | 2023-09-14 15:36 | RAD_ITS ---
STUDY: X-RAY CHEST REASON FOR EXAM: Male, 78 years old. Weakness TECHNIQUE: Single AP portable view of the chest. COMPARISON: None. FINDINGS: Minimal left basilar atelectasis. Otherwise the lungs are clear and expanded. There is no demonstrated pleural abnormality. There is borderline cardiomegaly. Midline sternotomy wires noted. Normal mediastinum and gricelda. Normal visualized pulmonary arteries. Normal visualized aortic arch and descending thoracic aorta. There is demineralization of the osseous structures. There is degenerative osteoarthritis of the bilateral shoulders. There is no demonstrated abnormality of the visualized soft tissue structures of the upper abdomen. RAD/Chest 1 View (Portable) IMPRESSION: Minimal left basilar atelectasis. Otherwise no acute cardiopulmonary disease. Electronically Signed: Yvonne Gan MD at 16:48 EST ,
--- NOTE | 2023-09-14 15:37 | EKG12_ITS ---
Test Reason : ABN LABS Blood Pressure : / mmHG Vent. Rate : 065 BPM Atrial Rate : 058 BPM P-R Int : 000 ms QRS Dur : 186 ms QT Int : 500 ms P-R-T Axes : 000 003 167 degrees QTc Int : 520 ms Atrial fibrillation Left bundle branch block Abnormal ECG Confirmed by ZANE STONER, FUENTES ([id number]), purchase request editor VIOLETA VILLALBA ([id number]) on 09/16/2023 9:16:06 AM Referred By: Confirmed By:FUENTES DEGROOT MD
--- OUTSIDE RECORDS SUMMARY | 2023-09-14 15:42 | XMS RPT_ITS | CCD ---
Author Name Unknown Address [address] [place] [address] Organization [facility] Care Team Providers Care Electrician Research Name Role Phone VALERIANO STONER, DR HOWARD [place] Primary Care Physician Erika BAL MD, DR HOWARD [place] Attending Katina BAL MD, DR HOWARD [place] Primary Care Katina BAL MD, DR HOWARD [place] Attending Katina BAL MD, DR HOWARD [place] Primary Care Katina BAL MD, DR HOWARD [place] Attending Katina BAL MD, DR HOWRAD [place] Primary Care Katina leslie Problems Problem [...] Patient encounter procedure DR HOWARD BAL MD [facility] Start: 04-29-[address] HOWARD BAL MD Fa cility:B Start: 04-29-2022 End: 05-03-2022 Lab-Standing Order DR HOWARD [facility] Payers Date Payer Category Payer Medicare [id number] 2021 Unknown [id number] 1945 Unknown [id number] [id number] [id number] 1945 Unknown [id number] 2.16.8 [id number] 1945 Unknown [id number] [id number] [id number] Progress note 11-01-2020 Note Date & Type Note Facility 11-01-2020 Note HNO ID: [id number] Author: Dakota Alfaro Service: ? Author Type: Physician Type: Progress Notes Filed: 11/01/2020 2:50 PM Note Text: Subjective: Patient is status post an upper and lower endoscopy. Completed at the [facility] in [place]. Biopsy of his duodenum was negative. Stomach [...] that point he will get it rescheduled. [facility] Progress note 10-22-2020 Note Date & Type Note Facility 10-22-2020 Note HNO ID: [id number] Author: Dakota Alfaro Service: ? Author Type: [...] UMBILICAL ARMEN,5+Y/O,REDUC ? ? - [facility] [place] ? - TRANSURETHRAL ELEC-SURG [...] HISTORY: FAMILY HI (more content not included)... [facility] Progress note 10-18-2020 Note Date & Type Note Facility 10-18-2020 Note HNO ID: [id number] Author: Patrick Olivier (Tech) Service: ? Author Type: Crop Duster Type: Progress Notes Filed: 10/18/2020 2:08 PM [...] DATE: October 18, 2020 TIME: 2:07 PM [facility] Progress note 10-18-2020 Note Date & Type Note Facility 10-18-2020 Note HNO ID: [id number] Author: Dakota Mir Alfaro Service: ? Author [...] - REPAIR UMBILICAL ARMEN,5+Y/O,REDUC - [facility] [place] [facility] [place] TRANSURETHRAL ELEC-SURG PROSTATECTOM Current [...] entered by the nurse and reviewed by wa Nursing Notes: Rozina Cifuentes RN 10/18/2020 9:13 AM Signed REVIEW OF SYSTEMS: General: The patient denies fatigue, notes weight loss, (more content not included)... [facility] Evaluation + Plan note Note Date & Type Note Facility Evaluation + Plan note No data available for this section [facility] Hospital Discharge instructions Note Date & Type Note Facility Hospital Discharge instructions No data available for this section [facility] Progress note Note Date & Type Note Facility Progress note No data available for this section [facility] Summary Purpose Family History No Family History Records FoundNo Family History Records Found Advance Directives No Advanced Directives Records FoundNo Advanced Directives Records Found Additional Source Comments (unrecognized sect ion and content) No Status Records FoundNo Status Records Found INFORMATION SOURCE (unrecogn ized section and content) DATE CREATED AUTHOR AUTHOR'S ORGANIZ ATION 04/27/2023 [facility] ([place]) Care Team (unrecognized sect ion and content) Care Team Personnel Name: HOWARD BAL MD Member Role: Primary Care Physician Address: Address: [place] [id number] [place] [address] Patient Care team informatio n (unrecognized section and content) Care Team Personnel Name: HOWARD BAL MD Member Role: Primary Care Physician Address: Address: [place] [id number] FOR RECORDS PERTAINING TO PATIENTS WHO [...] BE BASED ON THE PRIMARY CLINICAL RECORDS. [facility] [employer] [facility]. provides no warranty or guarantee of the accuracy or completeness of information in this document.
[2023-09-14 16:07] LABS: Absolute Lymphocyte Count 0.65 X10^3/uL (0.83-4.51); Absolute Neutrophil Count 24.2 X10^3/uL (2.0-7.7); Basophil# 0.06 X10^3/uL; Basophil% 0.2 % (0-1); Hematocrit 36.1 % (40-54); Hemoglobin 12.6 g/dL (13.0-16.5); Lymphocyte # 0.65 X10^3/ul (0.83-4.51); Lymphocyte % 2.5 % (19-41); Mean Corp Hgb Conc 34.9 g/dL (32-36); Mean Corpuscular Hgb 29.2 pg (27.0-32.0); Mean Corpuscular Volume 83.6 fL (80-94); Mean Platelet Vol. 13.2 fl (6.2-12.0); Monocyte# 0.68 X10^3/uL; Monocyte% 2.6 % (0-10); NRBC Flagged by Analyzer 0 % (0-5); Neutrophil # 24.23 X10^3/uL (2.7-7.7); Neutrophil % 92.7 % (47-70); POSITIVE DIFFERENTIAL YES; Platelet Count 272 K/mm3 (150-450); RBC Distribution Width SD 39.5 fl (35.1-43.9); Red Blood Count 4.32 M/mm3 (4.6-6.2); White Blood Count 26.1 K/mm3 (4.4-11.0)
[2023-09-14 16:11] LABS: Differential Indicated SCAN CRITERIA MET
[2023-09-14 16:21] LABS: Bacteria 0 SEEN /hpf (None Seen); Mucous, Urine 0 SEEN /hpf (<or=2+)
[2023-09-14 16:22] LABS: International Normalized Ratio 3.8; Prothrombin Time (Protime)PT. 38.2 SECONDS (11.7-14.9)
[2023-09-14 16:32] LABS: Color, Urine Yellow (Yellow); Glucose, Dipstick 1000 mg/dl (Normal); Ketone-Dipstick Negative (Negative); Leukocyte Esterase-Dipstick 25 /ul (Negative); Nitrite-Dipstick Positive (Negative); Occult Blood-Urine 10 /ul (Negative); Protein-Dipstick 30 mg/dl (Negative); Specific Gravity, Urine 1.015 (1.002-1.030); Urine Bilirubin Dipstick Negative (Negative); Urine Clarity Sl. Cloudy (Clear); Urine Urobilinogen Normal (Normal)
[2023-09-14 16:41] LABS: Differential Comment SCANNED
[2023-09-14 16:49] LABS: BNP,B-Type NATRIURETIC PEPTIDE 203.8 pg/mL (0-100)
[2023-09-14 17:02] LABS: Amorphous Sediment 1+ URATE; Red Blood Cells-Urine 0-5 SEEN /hpf (0-5); Squamous Epithelial Cells - UA 0-5 SEEN /hpf (0-5); White Blood Cells 0-5 SEEN /hpf (0-5)
[2023-09-14 17:24] LABS: ALB/GLOB Ratio 0.8 RATIO (0.9-2.4); AST(SGOT) 34 U/L (15-37); Alanine Aminotransfer ALT/SGPT 65 U/L (16-61); Albumin, Serum 3.2 g/dL (3.2-5.0); Alkaline Phosphatase 84 U/L (45-117); Anion Gap 18 (5-15); BUN 131 mg/dL (7-18); BUN/Creat Ratio 42.8 RATIO (10-20); Calcium,Total 8.8 mg/dL (8.5-10.1); Chloride 81 mmol/L (98-107); Creatinine, Serum 3.06 mg/dL (0.70-1.30); EST Glomerular Filtration Rate 21 mL/min (>60); Est Glom Filt Rate - Afr Amer 25 mL/min (>60); Estimated Creatinine Clearance 18.15 ml/min; Glucose 264 mg/dL (74-106); Potassium 3.3 mmol/L (3.5-5.1); Protein, Total 7.2 g/dL (6.4-8.2); Sodium Level 124 mmol/L (136-145); Troponin-I HS 195 pg/mL (3.0-78.0)
--- NOTE | 2023-09-14 17:30 | ED.RN ---
trop [address] decker
[2023-09-14 17:32] VITALS: PULSE 64; RESP 15; O2SAT 96
[2023-09-14] MEDS: Aspirin 325 MG Tablet PO (17:46)
--- NOTE | 2023-09-14 18:16 | NURSING ---
PCU SIA CEE OIN CKD, HYPONATREMIA
--- OUTSIDE RECORDS SUMMARY | 2023-09-14 18:30 | XMS RPT_ITS | CCD ---
Author Name Unknown Address [address] [place] [address] Organization [facility] Care Team Providers Care Mortgage Loan Specialist Name Role Phone VALERIANO STONER, DR HOWARD [...] Patient encounter procedure DR HOWARD BAL MD [facility] Start: 04-29-[address] HOWARD BAL MD Fa cility:B Start: 04-29-2022 End: 05-03-2022 Lab-Standing Order DR HOWARD [facility] Payers Date Payer Category Payer Medicare [id number] 2021 Unknown [id number] 1945 Unknown [id number] 2.16.8 [id number] 1945 Unknown [id number] 2.16.8 [id number] 1945 Unknown [id number] [id number] [id number] Progress note 11-01-2020 Note Date & Type Note Facility 11-01-2020 Note HNO ID: [id number] Author: Dakota Alfaro Service: ? Author Type: Physician Type: Progress Notes Filed: 11/01/2020 2:50 PM Note Text: Subjective: Patient is status post an upper and lower endoscopy. Completed at the [facility] in [place]. Biopsy of his duodenum was negative. Stomach [...] that point he will get it rescheduled. [facility] Progress note 10-22-2020 Note Date & Type Note Facility 10-22-2020 Note HNO ID: [id number] Author: Dakota Alfaro Service: ? Author Type: [...] UMBILICAL ARMEN,5+Y/O,REDUC ? ? - [facility] [place] ? - TRANSURETHRAL ELEC-SURG [...] HISTORY: FAMILY HI (more content not included)... [facility] Progress note 10-18-2020 Note Date & Type Note Facility 10-18-2020 Note HNO ID: [id number] Author: Patrick Olivier (Tech) Service: ? Author Type: Mold Clamper Type: Progress Notes Filed: 10/18/2020 2:08 PM [...] DATE: October 18, 2020 TIME: 2:07 PM [facility] Progress note 10-18-2020 Note Date & Type Note Facility 10-18-2020 Note HNO ID: [id number] Author: Dakota Mir Alfaro Service: ? Author [...] - REPAIR UMBILICAL ARMEN,5+Y/O,REDUC - [facility] [place] [facility] [place] - TRANSURETHRAL ELEC-SURG PROSTATECTOM Current [...] entered by the nurse and reviewed by co Nursing Notes: Rozina Cifuentes RN 10/18/2020 9:13 AM Signed REVIEW OF SYSTEMS: General: The patient denies fatigue, notes weight loss, (more content not included)... [facility] Evaluation + Plan note Note Date [...] Member Role: Primary Care Physician Address: Address: [place] [id number] [place] [address] Patient Care team informatio n (unrecognized section and content) Care Team Personnel Name: HOWARD BAL MD Member Role: Primary Care Physician Address: Address: [place] [id number] FOR RECORDS PERTAINING TO PATIENTS WHO [...] BE BASED ON THE PRIMARY CLINICAL RECORDS. [facility] [employer] [facility]. provides no warranty or guarantee of the accuracy or completeness of information in this document.
--- OUTSIDE RECORDS SUMMARY | 2023-09-14 18:33 | XMS RPT_ITS | CCD ---
Author Name Unknown Address [address] [place] [address] Organization [facility] Care Team Providers Care [employer] Name Role Phone VALERIANO STONER, DR HOWARD [...] Patient encounter procedure DR HOWARD BAL MD [facility] Start: 04-29-[address] HOWARD BAL MD Fa cility:B Start: 04-29-2022 End: 05-03-2022 Lab-Standing Order DR HOWARD [facility] Payers Date Payer Category Payer Medicare [id number] 2021 Unknown [id number] 1945 Unknown [id number] [id number] 1945 Unknown [id number] 1945 Unknown [id number] Progress note 11-01-2020 Note Date & Type Note Facility 11-01-2020 Note HNO ID: [id number] Author: Dakota Alfaro Service: ? Author Type: Physician Type: Progress Notes Filed: 11/01/2020 2:50 PM Note Text: Subjective: Patient is status post an upper and lower endoscopy. Completed at the [facility] in [place]. Biopsy of his duodenum was negative. Stomach [...] that point he will get it rescheduled. [facility] Progress note 10-22-2020 Note Date & Type Note Facility 10-22-2020 Note HNO ID: [id number] Author: Dakota Alfaro Service: ? Author Type: [...] UMBILICAL ARMEN,5+Y/O,REDUC ? ? - [facility] ? ? - TRANSURETHRAL ELEC-SURG [...] HISTORY: FAMILY HI (more content not included)... [facility] Progress note 10-18-2020 Note Date & Type Note Facility 10-18-2020 Note HNO ID: [id number] Author: Patrick Olivier (Tech) Service: ? Author Type: Crystal Slicer Type: Progress Notes Filed: 10/18/2020 2:08 PM [...] DATE: October 18, 2020 TIME: 2:07 PM [facility] Progress note 10-18-2020 Note Date & Type Note Facility 10-18-2020 Note HNO ID: [id number] Author: Dakota Mir Alfaro Service: ? Author [...] - REPAIR UMBILICAL ARMEN,5+Y/O,REDUC - [facility] - TRANSURETHRAL ELEC-SURG PROSTATECTOM Current [...] notes weight loss, (more content not included)... [facility] Evaluation + Plan note Note Date & Type Note Facility Evaluation + Plan note No data available for this section [facility] Hospital Discharge instructions Note Date & Type Note Facility Hospital Discharge instructions No data available for this section [facility] Progress note Note Date & Type Note Facility Progress note No data available for this section [facility] Summary Purpose Family History No Family History Records FoundNo Family History Records Found Advance Directives No Advanced Directives Records FoundNo Advanced Directives Records Found Additional Source Comments (unrecognized sect ion and content) No Status Records FoundNo Status Records Found INFORMATION SOURCE (unrecogn ized section and content) DATE CREATED AUTHOR AUTHOR'S ORGANIZ ATION 04/27/2023 [facility] ([place]) Care Team (unrecognized sect ion and content) Care Team Personnel Name: HOWARD BAL MD Member Role: Primary Care Physician Address: Address: [place] [id number] [place] [address] Patient Care team informatio n (unrecognized section and content) Care Team Personnel Name: HOWARD BAL MD Member Role: Primary Care Physician Address: Address: [place] [id number] FOR RECORDS PERTAINING TO PATIENTS WHO [...] BE BASED ON THE PRIMARY CLINICAL RECORDS. [facility] [employer] [facility]. provides no warranty or guarantee of the accuracy or completeness of information in this document.
[2023-09-14] MEDS: Ceftriaxone 1 GM/50 ML BAG IV (18:42)
[2023-09-14] MEDS: 0.9% Normal Saline (500mL Bag) 500 ML 999 ML IV (18:42)
--- NOTE | 2023-09-14 18:42 | PCM.HP.STD ---
HPI - General General Date of Admission: 09/14/23 Date of Service: 09/14/23 Chief Complaint: Weakness/abnormal labs HPI Narrative ANTWAN OSMAN, is a 78 M who presented to the emergency department at [facility] on 09/14/2023 for abnormal labs. Patient had a recent admission here and was discharged on 09/03/2023. During that hospitalization he was found to have significant pulmonary hypertension and severe diastolic dysfunction. At that time he was discharged on Bumex 1 mg p.o. twice daily and metolazone 2.5 mg p.o. twice weekly. Patient states his weight has been stable and his edema is excellent however he was complaining of weakness and labs were drawn by his armature balancer. They were looked up by his primary care physician and he was told they were markedly abnormal and asked to come to the emergency department. Patient complains of diffuse weakness that has been present for the last several days. He indicates he has been urinating well and has not had any bleeding. He indicated he was told his hemoglobin was very low however on review of his labs his hemoglobin is stable at 12.5 on admission. He states he still gets exertional dyspnea but again indicates his swelling has been overall very good but his fatigue has been worsening. On presentation his temperature was 96.3, heart rate 68, blood pressure 130/68, respiratory rate was 18 and oxygen saturations were 98% on room air. CBC showed a leukocytosis of 26.1, hemoglobin of 12.6 and a normal platelet count. The patient has been on steroids at 60 mg daily. His INR was 3.8. His sodium was 124 however when corrected for his hyperglycemia is 127-128. His potassium was 3.1, anion gap was 18 with a normal serum bicarb at 25. His BUN is markedly elevated 131 with a serum creatinine of 3.06 (baseline serum creatinine runs between 2.5 and 2.7), serum glucose was 264, liver functions are overall unremarkable. His troponin was elevated at 195 however this is his baseline. His BNP was elevated at 203.8 but is markedly lower than his previous hospitalization. His urine was positive for nitrite and leuk esterase however he had no white cells or bacteria seen in his urine. Chest x-ray was unremarkable for any acute findings. EKG was stable with chronic A-fib with and no changes when compared to previous. I cared for Mr. Osman his last hospitalization and we did discuss extensively that we may have to sacrifice his kidneys for his volume status and his heart failure. It appears as though if this is what has taken place and I have discussed the case with nephrology. Their plan is to likely start him on dialysis if the patient is agreeable to help with his uremia and volume status. [facility] Medical History Abnormal ankle brachial index (LOKI) Acute hypoxic respiratory failure Anemia due to stage 3b chronic kidney disease Back pain BPH (benign prostatic hyperplasia) Cardiology follow-up encounter CHF NYHA class III Chronic combined systolic and diastolic CHF (congestive heart failure) Chronic kidney disease, stage 3b Claudication Constipation CPAP (continuous positive airway pressure) dependence Diabetes Diarrhea Dietary restriction Elevated troponin (01/2021) Essential (primary) hypertension Gout Heartburn History of echocardiogram History of edema History of irregular heartbeat History of non-ST elevation myocardial infarction (NSTEMI) (07/25/21) History of pain when walking History of steroid therapy History of tobacco use HLD (hyperlipidemia) Hypertension Hypertrophic cardiomyopathy Hypokalemia Joint pain Lactic acidosis Left bundle branch block Leg cramps Leukocytosis Longstanding persistent atrial fibrillation Mitral valve insufficiency Night sweats 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 Obesity (BMI 30.0-34.9) KIMBERLY (obstructive sleep apnea) Persistent atrial fibrillation Poor appetite Presence of implantable pulmonary artery pressure and heart rate monitoring system (03/25/21) Renal infarct Restless legs Secondary pulmonary arterial hypertension Shortness of breath on exertion Wears glasses Home Medications finasteride 5 mg tablet 5 mg PO DAILY prostate 12/19/20 [History Last Taken 12/22/20] warfarin 2.5 mg tablet See Rx Instructions PO .COMPLEX blood thinner 03/11/21 [History Last Taken 05/31/22] cyanocobalamin (vitamin B-12) 1,000 mcg tablet (Vitamin B-12) 1,000 mcg PO DAILY supplement 06/26/22 [History Last Taken Unknown] carvedilol 6.25 mg tablet 6.25 mg PO BID #60 tabs 05/13/23 [Rx Last Taken Unknown] amlodipine 5 mg tablet 5 mg PO DAILY #90 tabs 07/07/23 [Rx Last Taken Unknown] dapagliflozin propanediol 10 mg tablet (Farxiga) 10 mg PO DAILY diabetes 08/29/23 [History Last Taken Unknown] gabapentin 100 mg capsule 100 mg PO QHS unsure 08/29/23 [History Last Taken Unknown] pantoprazole 40 mg tablet,delayed release 40 mg PO DAILY prevent stomach ulcers 08/29/23 [History Last Taken Unknown] allopurinol 100 mg tablet 200 mg (2 x 100 mg) PO DAILYCM #30 tabs 09/03/23 [Rx Last Taken Unknown] bumetanide 0.5 mg tablet 1 mg (2 x 0.5 mg) PO BID #120 tabs 09/03/23 [Rx Last Taken Unknown] insulin glargine-yfgn 100 unit/mL (3 mL) subcutaneous pen 10 unit (0.1 mL) subcut DAILY #15 mL 09/03/23 [Rx Last Taken Unknown] pen needle, diabetic 33 gauge x 3/16 #100 ea 09/03/23 [Rx Last Taken Unknown] prednisone 20 mg tablet 60 mg (3 x 20 mg) PO BREAKFAST #63 tabs 09/03/23 [Rx Last Taken Unknown] metolazone 2.5 mg tablet 2.5 mg PO .Thursday #8 tabs 09/09/23 [Rx Last Taken Unknown] potassium chloride 20 mEq tablet,extended release 20 meq PO .COMPLEX 09/09/23 [History Last Taken Unknown] Allergy/AdvReac Type Severity Reaction Status Date / Time rivaroxaban [From Xarelto] Allergy Bleeding Verified 09/14/23 13:37 metoprolol AdvReac bradycardia Verified 09/14/23 13:37 Family History Father Heart disease Sister Heart disease Brother Heart disease Other Arthritis CVA (cerebral vascular accident) Depression Mental disorder Surgical History History of appendectomy History of cataract extraction History of left heart catheterization (02/19/21) History of transurethral resection of prostate (01/2019) History of ventricular septal myectomy (2000) Hx of umbilical hernia repair Social History Smoking Status: Former smoker how long ago did patient quit smokin years ago 0.25ppd second hand exposure: Yes alcohol intake: never caffeine: Yes Type: coffee Number of servings: 1 what type of physical activity do you participate in: other details: treadmill frequency: daily ROS Constitutional Constitutional: Reports fatigue, malaise and weakness; Denies anorexia, change in weight, chills, fever(s), night sweats or other Eyes Eyes: Denies blurry vision, change in eye color, change in vision, discharge from eye(s), double vision, erythema, eye pain, loss of vision or other ENT HEENT: Denies abnormal hearing, dysphagia, ear pain, epistaxis, headache(s), hearing loss, nasal congestion, nasal discharge, post nasal drip, sinus pressure, sore throat or other Cardiovascular Cardiovascular: Reports dyspnea on exertion; Denies chest pain, claudication, edema, lightheadedness, orthopnea, palpitations, paroxysmal nocturnal dyspnea, rapid heart rate, syncope or other Respiratory/Chest Respiratory/Chest: Reports shortness of breath with exertion; Denies cough, dyspnea, excessive phlegm production, hemoptysis, productive cough, shortness of breath at rest, wheezing or other Gastrointestinal Gastrointestinal: Denies abdominal pain, coffee ground emesis, constipation, diarrhea, dyspepsia, hematemesis, hematochezia, loose stools, melena, nausea, vomiting or other Genitourinary Genitourinary: Reports difficulty urinating and urinary hesitancy; Denies burning urination, dysuria, hematuria, nocturia, urinary frequency, urinary incontinence, urinary urgency or other Musculoskeletal Musculoskeletal: Reports back pain, joint pain and joint stiffness; Denies arthralgias, joint swelling, myalgias, neck pain or other Neurologic Neurologic: Denies abnormal gait, abnormal speech, confusion, disequilibrium, dizziness, focal weakness, headache(s), numbness, paresthesias, seizure-like activity, seizures, syncope, tingling, tremor(s) or other Psychiatric Psychiatric: Denies anxiety, depression, homicidal ideation, suicidal ideation or other Endocrine Endocrinology: Denies change in body appearance, cold intolerance, excessive sweating, heat intolerance, polydipsia, polyuria or other Hematologic/Lymphatic Hematologic/Lymphatic: Reports easy bruising; Denies anemia, easy bleeding, lymphadenopathy or other Allergic/Immunologic Allergic/Immunologic: Denies rhinitis, hives, eczemia, asthma or other Vital Signs Vital Signs Vital Signs: 09/14/23 13:38 09/14/23 15:49 09/14/23 17:32 Temperature 96.3 F L Temperature Source Temporal Pulse Rate 68 64 Respiratory Rate 18 15 Respiratory Effort Normal Non-Labored Respiratory Pattern Normal Blood Pressure 130/68 H Blood Pressure Mean 88 Pulse Ox 98 96 Oxygen Delivery Method Room Air Weight Weight: 77.836 kg Body Mass Index (BMI) 28.5 Physical Exam Const alert, oriented x3, no apparent distress and well nourished; Negative for average body habitus or healthy appearing Constitutional Narrative: Very pleasant, elderly, white male, sitting up in bed, family at bedside, patient appears comfortable and nontoxic General Appearance: cooperative HEENT normocephalic and head/scalp atraumatic HEENT Narrative: Mild to moderate hearing loss, mucous membranes are slightly dry, Mallampati is 3, no thrush Eyes PERRL, EOMs intact bilaterally and conjunctivae normal Eyes Narrative: No scleral icterus Neck no lymphadenopathy, supple and no JVD Neck Narrative: Trachea midline, no thyroid enlargement Resp normal respiratory effort, no retractions, no use of accessory muscles and clear to auscultation bilaterally Auscultation: Negative for rales, rhonchi or wheezes Cardio regular rate, S1 normal heart sound, S2 normal heart sound, no murmurs, no rub, no gallops and no clicks Cardio Narrative: Atrial fibrillation GI normal to inspection, nondistended, normoactive bowel sounds, soft to palpation and non-tender Extremity no clubbing, cyanosis or edema Extremity Narrative: Pulses are 2+ Skin no wounds, no jaundice, no petechiae and no mottling Skin Narrative: Patient with scattered ecchymosis bilateral upper extremities, slight tenting with skin turgor assessment Neuro oriented x3, CN's II-XII intact bilaterally, moves all extremities and no focal motor deficits Speech: speech normal Psych affect normal Psych Narrative: Eye contact is good, patient interacts appropriately Results Lab / Micro Data 09/14/23 15:30 09/14/23 15:30 Labs: Laboratory Results - last 24 hr 09/14/23 15:30: WBC 26.1 H, RBC 4.32 L, Hgb 12.6 L, Hct 36.1 L, MCV 83.6, MCH 29.2, MCHC 34.9, RDW Std Deviation 39.5, RDW Coeff of Kiersten 13.0, Plt Count 272, MPV 13.2 H, Immature Gran % (Auto) 2.000 H, Neut % (Auto) 92.7 H, Lymph % (Auto) 2.5 L, [place] % (Auto) 2.6, Eos % (Auto) 0.0, Baso % (Auto) 0.2, Absolute Neuts (auto) 24.2 H, Absolute Lymphs (auto) 0.65 L, Nucleated RBC % 0, Differential Comment SCANNED, PT 38.2 H, INR 3.8, Sodium 124 L, Potassium 3.3 L, Chloride 81 L, Carbon Dioxide 25.0, Anion Gap 18 H, BUN 131 H*, Creatinine 3.06 H, Estim Creat Clear Calc 18.15, Est GFR (MDRD) Af Amer 25 L, Est GFR (MDRD) Non-Af 21 L, BUN/Creatinine Ratio 42.8 H, Glucose 264 H, Calcium 8.8, Total Bilirubin 0.80, AST 34, ALT 65 H, Alkaline Phosphatase 84, Troponin I High Sens 195 H*, B-Natriuretic Peptide 203.8 H, Total Protein 7.2, Albumin 3.2, Globulin 4.0, Albumin/Globulin Ratio 0.8 L 09/14/23 15:47: Blood Type A NEGATIVE, Antibody Screen NEGATIVE 09/14/23 16:17: Urine Color Yellow, Urine Clarity Sl. Cloudy, Urine pH 6.0, Ur Specific [place] 1.015, Urine Protein 30 H, Urine Glucose (UA) 1000 H, Urine Ketones Negative, Urine Occult Blood 10 H, Urine Nitrite Positive H, Urine Bilirubin Negative, Urine Urobilinogen Normal, Ur Leukocyte Esterase 25 H, Urine RBC 0-5 SEEN, Urine WBC 0-5 SEEN, Ur Squamous Epith Cells 0-5 SEEN, Amorphous Sediment 1+ URATE, Urine Bacteria 0 SEEN, Urine Mucus 0 SEEN Imagaing Radiology Impression Chest X-Ray 09/14/23 15:36 IMPRESSION: Minimal left basilar atelectasis. Otherwise no acute cardiopulmonary disease. Electronically Signed: Yvonne Gan MD at 16:48 EST , Assessment & Plan Assessment/Plan (1) Acute kidney injury superimposed on CKD: (2) Hyponatremia: (3) High anion gap metabolic acidosis: (4) Leukocytosis: (5) Hypokalemia: PLAN: Plan CEE on CKD stage 4 -Baseline serum creatinine appears to run between 2.5 and 2.7 -Serum creatinine up to greater than 3 and significant uremia present on admission -Renal duplex was unremarkable at last hospitalization -Gentle hydration with 500 cc of normal saline -Hold home diuretics -Repeat lab in a.m. -Hold home anticoagulation in preparation for dialysis catheter placement -Per discussion with nephrology patient will likely need to go on dialysis -Nephrology consultation placed and discussed with Dr. Barahona Hyponatremia -Actual corrected sodium for blood sugar is 1 27-1 28 -500 cc bolus ordered -Plan is for dialysis upcoming which should help correct sodium abnormalities however at this time I suspect he has hypovolemic hyponatremia Hypokalemia -Potassium 3.3 -Hold home supplementation with renal failure -40 mill equivalents given and recheck lab in a.m. -Check a.m. magnesium level Leukocytosis -No signs of acute infection -Patient has been on steroids and is slightly dry -Continue to monitor clinically but no further evaluation required at this time Anion gap metabolic acidosis -Secondary to uremia -Should resolve once kidney function improves or starts dialysis Chronic diastolic heart failure/right-sided heart failure -At this point patient is very well compensated -Echo done on 08/27/2023 showed biatrial enlargement, moderate mitral valve insufficiency, moderate pulmonary artery hypertension, stage III diastolic dysfunction and an EF of 50 to 55% -Patient remains on room air and no significant edema at this time -Patient does have CardioMEMS device -Diuretics on hold with plan to transition to dialysis which will help with ultrafiltration as well -Fluid restriction and Sodium restriction for now -Daily weights -Autoimmune workup is positive -Discussed case with pulmonary medicine and they will follow in consult -Requested that we start weaning steroids from 60 mg to 50 mg daily History of gout -Continue home allopurinol -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 Chronic normocytic anemia secondary to CKD -Normocytic -Hemoglobin is overall stable -Suspect related to chronic renal disease Persistent atrial fibrillation -Anticoagulation on hold -INR is 3.8 -Continue home carvedilol DM-2 -Hemoglobin A1c on 07/07/2023 was 6.2 -Hold Farxiga -Continue Lantus but increase from 10 units to 15 units -SSI -Cardiac/carb controlled diet -Accu-Cheks as ordered Hypertension -Continue amlodipine -Continue home carvedilol -Hold home diuretics for now BPH with obstruction -Continue home finasteride History of KIMBERLY -Continue CPAP -Patient is compliant at baseline DVT prophylaxis -INR supratherapeutic -Hold Coumadin for dialysis catheter placement CODE STATUS -DNR CCA with no intubation as verified on admission Charges/Coding Visit Charges Inpatient E&M: 41416 Init Hosp L3
[2023-09-14 18:46] VITALS: BP 125/58; PULSE 65; RESP 16; O2SAT 96
[2023-09-14 18:57] VITALS: BMI 28.0
[2023-09-14 19:00] VITALS: BP 134/74; PULSE 69; RESP 16; TEMP 36.2; O2SAT 97
--- OUTSIDE RECORDS SUMMARY | 2023-09-14 19:07 | XMS RPT_ITS | CCD ---
Author Name Unknown Address [address] [place] [address] Organization [facility] Care Team Providers Care Warhead Maintenance Specialist Name Role Phone VALERIANO STONER, DR [...] Patient encounter procedure DR HOWARD BAL MD [facility] Start: 04-29-[address] HOWARD BAL MD Fa cility:B Start: 04-29-2022 End: 05-03-2022 Lab-Standing Order DR HOWARD [facility] Payers Date Payer Category Payer Medicare [id number] 2021 Unknown [id number] 1945 Unknown [id number] [id number] 1945 Unknown [id number] [id number] [id number] 1945 Unknown [id number] Progress note 11-01-2020 Note Date & Type Note Facility 11-01-2020 Note HNO ID: [id number] Author: Dakota Alfaro Service: ? Author Type: Physician Type: Progress Notes Filed: 11/01/2020 2:50 PM Note Text: Subjective: Patient is status post an upper and lower endoscopy. Completed at the [facility] in [place]. Biopsy of his duodenum was negative. Stomach [...] that point he will get it rescheduled. [facility] Progress note 10-22-2020 Note Date & Type Note Facility 10-22-2020 Note HNO ID: [id number] Author: Dakota Alfaro Service: ? Author Type: [...] UMBILICAL ARMEN,5+Y/O,REDUC ? ? - [facility]SS ? ? - TRANSURETHRAL ELEC-SURG [...] HISTORY: FAMILY HI (more content not included)... [facility] Progress note 10-18-2020 Note Date & Type Note Facility 10-18-2020 Note HNO ID: [id number] Author: Patrick Olivier (Tech) Service: ? Author Type: Government Operations Consultant Type: Progress Notes Filed: 10/18/2020 2:08 PM [...] DATE: October 18, 2020 TIME: 2:07 PM [facility] Progress note 10-18-2020 Note Date & Type Note Facility 10-18-2020 Note HNO ID: [id number] Author: Dakota Mir Alfaro Service: ? Author [...] Laterality Date - APPENDECTOMY - REPAIR UMBILICAL AREMN,5+Y/O,REDUC - [facility] - TRANSURETHRAL ELEC-SURG PROSTATECTOM Current [...] entered by the nurse and reviewed by az Nursing Notes: Rozina Cifuentes RN 10/18/2020 9:13 AM Signed REVIEW OF SYSTEMS: General: The patient denies fatigue, notes weight loss, (more content not included)... [facility] Evaluation + Plan note Note Date & Type Note Facility Evaluation + Plan note No data available for this section [facility] Hospital Discharge instructions Note Date & Type Note Facility Hospital Discharge instructions No data available for this section [facility] Progress note Note Date & Type Note Facility Progress note No data available for this section [facility] Summary Purpose Family History No Family History Records FoundNo Family History Records Found Advance Directives No Advanced Directives Records FoundNo Advanced Directives Records Found Additional Source Comments (unrecognized sect ion and content) No Status Records FoundNo Status Records Found INFORMATION SOURCE (unrecogn ized section and content) DATE CREATED AUTHOR AUTHOR'S ORGANIZ ATION 04/27/2023 [facility] Care Team (unrecognized sect ion and content) Care Team Personnel Name: HOWARD BAL MD Member Role: Primary Care Physician Address: Address: [place] [id number] [place] [address] Patient Care team informatio n (unrecognized section and content) Care Team Personnel Name: HOWARD BAL MD Member Role: Primary Care Physician Address: Address: [place] [id number] FOR RECORDS PERTAINING TO PATIENTS WHO [...] BE BASED ON THE PRIMARY CLINICAL RECORDS. [facility] [employer] [facility]. provides no warranty or guarantee of the accuracy or completeness of information in this document.
[2023-09-14] MEDS: Senna/Docusate Sodium 1 Tablet 2 TABLET PO (19:49)
[2023-09-14] MEDS: Potassium Chloride Oral Tablet 20 MEQ 40 MEQ PO (19:49)
[2023-09-14] MEDS: Gabapentin 100 MG Capsule PO (20:46)
[2023-09-14] MEDS: Carvedilol 6.25 MG Tablet PO (20:46)
[2023-09-14 21:07] LABS: Bedside Glucose 316 mg/dL (74-106)
[2023-09-14 21:08] VITALS: O2SAT 97
--- NOTE | 2023-09-14 21:25 | CPS ---
Patient home Bipap set up and ready to use. Patient can use machine independently but will call if he needs any assistance.
[2023-09-15 01:00] VITALS: BP 117/62; PULSE 57; RESP 13; TEMP 36.5; O2SAT 95
[2023-09-15] MEDS: Senna/Docusate Sodium 1 Tablet 2 TABLET PO ×2 (03:55→18:06)
[2023-09-15 03:57] LABS: Absolute Lymphocyte Count 0.91 X10^3/uL (0.83-4.51); Absolute Neutrophil Count 21.3 X10^3/uL (2.0-7.7); Basophil# 0.06 X10^3/uL; Basophil% 0.2 % (0-1); Hematocrit 36.7 % (40-54); Hemoglobin 12.7 g/dL (13.0-16.5); Lymphocyte # 0.91 X10^3/ul (0.83-4.51); Lymphocyte % 3.7 % (19-41); Mean Corp Hgb Conc 34.6 g/dL (32-36); Mean Corpuscular Hgb 28.9 pg (27.0-32.0); Mean Corpuscular Volume 83.4 fL (80-94); Monocyte# 1.73 X10^3/uL; Monocyte% 7.1 % (0-10); NRBC Flagged by Analyzer 0 % (0-5); Neutrophil # 21.25 X10^3/uL (2.7-7.7); Neutrophil % 87.5 % (47-70); POSITIVE DIFFERENTIAL YES; Platelet Count 275 K/mm3 (150-450); RBC Distribution Width SD 39.1 fl (35.1-43.9); White Blood Count 24.3 K/mm3 (4.4-11.0)
[2023-09-15 04:00] VITALS: BP 110/74; PULSE 61; RESP 18; TEMP 36.2; O2SAT 95
[2023-09-15 04:07] LABS: International Normalized Ratio 3.8; Prothrombin Time (Protime)PT. 37.9 SECONDS (11.7-14.9)
[2023-09-15 04:18] LABS: Differential Indicated SCAN CRITERIA MET
[2023-09-15 04:37] LABS: ALB/GLOB Ratio 0.8 RATIO (0.9-2.4); AST(SGOT) 35 U/L (15-37); Alanine Aminotransfer ALT/SGPT 61 U/L (16-61); Albumin, Serum 3.2 g/dL (3.2-5.0); Alkaline Phosphatase 80 U/L (45-117); Anion Gap 15 (5-15); BUN 131 mg/dL (7-18); BUN/Creat Ratio 44.3 RATIO (10-20); Calcium,Total 8.9 mg/dL (8.5-10.1); Chloride 85 mmol/L (98-107); Creatinine, Serum 2.96 mg/dL (0.70-1.30); EST Glomerular Filtration Rate 22 mL/min (>60); Est Glom Filt Rate - Afr Amer 26 mL/min (>60); Estimated Creatinine Clearance 19.01 ml/min; Globulin 3.9 g/dL (2.2-4.2); Glucose 247 mg/dL (74-106); Magnesium 2.6 mg/dL (1.6-2.6); Phosphorus 5.3 mg/dL (2.5-4.9); Potassium 3.1 mmol/L (3.5-5.1); Protein, Total 7.1 g/dL (6.4-8.2); Sodium Level 128 mmol/L (136-145)
[2023-09-15 05:02] LABS: Differential Comment SCANNED
[2023-09-15] MEDS: Insulin Lispro 100 UNIT/ML INSULN.PEN SC ×3 (08:00→17:13)
[2023-09-15 08:55] LABS: Bedside Glucose 168 mg/dL (74-106)
[2023-09-15] MEDS: predniSONE 20 MG Tablet 50 MG PO (09:00)
[2023-09-15] MEDS: Carvedilol 6.25 MG Tablet PO ×2 (09:00→17:13)
[2023-09-15] MEDS: Allopurinol 100 MG Tablet 200 MG PO (09:00)
[2023-09-15 10:00] VITALS: BP 125/65; PULSE 61; RESP 16; TEMP 36.3; O2SAT 99
--- NOTE | 2023-09-15 10:00 | PCM.PN.HOSP ---
Subjective Subjective Doing well, had a nosebleed last night with an INR 3.8 Objective Data Objective Data Vital Signs: Vital Signs Temp Pulse Resp BP Pulse Ox O2 Del Method 97.1 F L 61 18 110/74 95 Room Air 09/15/23 04:00 09/15/23 04:00 09/15/23 04:00 09/15/23 04:00 09/15/23 04:00 09/15/23 04:00 Oxygen Delivery Method Room Air Weight: 168 lb 13.985 oz Body Mass Index (BMI) 28.0 Intake & Output: Intake and Output for Last 24 Hours 09/14/23 09/15/23 09/16/23 03:59 03:59 03:59 Intake Total 550 / 550 Output Total 500 / 500 650 / 650 Balance 50 / 50 -650 / -650 Lab / Micro Data 09/15/23 03:15 09/15/23 03:15 Labs: Laboratory Results - last 24 hr 09/14/23 15:30: WBC 26.1 H, RBC 4.32 L, Hgb 12.6 L, Hct 36.1 L, MCV 83.6, MCH 29.2, MCHC 34.9, RDW Std Deviation 39.5, RDW Coeff of Kiersten 13.0, Plt Count 272, MPV 13.2 H, Immature Gran % (Auto) 2.000 H, Neut % (Auto) 92.7 H, Lymph % (Auto) 2.5 L, [place] % (Auto) 2.6, Eos % (Auto) 0.0, Baso % (Auto) 0.2, Absolute Neuts (auto) 24.2 H, Absolute Lymphs (auto) 0.65 L, Nucleated RBC % 0, Differential Comment SCANNED, PT 38.2 H, INR 3.8, Sodium 124 L, Potassium 3.3 L, Chloride 81 L, Carbon Dioxide 25.0, Anion Gap 18 H, BUN 131 H*, Creatinine 3.06 H, Estim Creat Clear Calc 18.15, Est GFR (MDRD) Af Amer 25 L, Est GFR (MDRD) Non-Af 21 L, BUN/Creatinine Ratio 42.8 H, Glucose 264 H, Calcium 8.8, Total Bilirubin 0.80, AST 34, ALT 65 H, Alkaline Phosphatase 84, Troponin I High Sens 195 H*, B-Natriuretic Peptide 203.8 H, Total Protein 7.2, Albumin 3.2, Globulin 4.0, Albumin/Globulin Ratio 0.8 L 09/14/23 15:47: Blood Type A NEGATIVE, Antibody Screen NEGATIVE 09/14/23 16:17: Urine Color Yellow, Urine Clarity Sl. Cloudy, Urine pH 6.0, Ur Specific [place] 1.015, Urine Protein 30 H, Urine Glucose (UA) 1000 H, Urine Ketones Negative, Urine Occult Blood 10 H, Urine Nitrite Positive H, Urine Bilirubin Negative, Urine Urobilinogen Normal, Ur Leukocyte Esterase 25 H, Urine RBC 0-5 SEEN, Urine WBC 0-5 SEEN, Ur Squamous Epith Cells 0-5 SEEN, Amorphous Sediment 1+ URATE, Urine Bacteria 0 SEEN, Urine Mucus 0 SEEN 09/14/23 20:45: POC Glucose 316 H 09/15/23 03:15: WBC 24.3 H, RBC 4.40 L, Hgb 12.7 L, Hct 36.7 L, MCV 83.4, MCH 28.9, MCHC 34.6, RDW Std Deviation 39.1, RDW Coeff of Kiersten 13.0, Plt Count 275, MPV 13.0 H, Immature Gran % (Auto) 1.500 H, Neut % (Auto) 87.5 H, Lymph % (Auto) 3.7 L, [place] % (Auto) 7.1, Eos % (Auto) 0.0, Baso % (Auto) 0.2, Absolute Neuts (auto) 21.3 H, Absolute Lymphs (auto) 0.91, Nucleated RBC % 0, Differential Comment SCANNED, Diff Path Review December, PT 37.9 H, INR 3.8, Sodium 128 L, Potassium 3.1 L, Chloride 85 L, Carbon Dioxide 28.0, Anion Gap 15, BUN 131 H*, Creatinine 2.96 H, Estim Creat Clear Calc 19.01, Est GFR (MDRD) Af Amer 26 L, Est GFR (MDRD) Non-Af 22 L, BUN/Creatinine Ratio 44.3 H, Glucose 247 H, Calcium 8.9, Phosphorus 5.3 H, Magnesium 2.6, Total Bilirubin 0.60, AST 35, ALT 61, Alkaline Phosphatase 80, Total Protein 7.1, Albumin 3.2, Globulin 3.9, Albumin/Globulin Ratio 0.8 L 09/15/23 08:38: POC Glucose 168 H Radiography Diagnostic Testing: Radiology Impression Chest X-Ray 09/14/23 15:36 IMPRESSION: Minimal left basilar atelectasis. Otherwise no acute cardiopulmonary disease. Electronically Signed: Yvonne Gan MD at 16:48 EST Reading Location ID and State: [facility] / [place] , Service support , Physical Exam Narrative General: Alert, Oriented x3, Cooperative, No apparent distress HEENT: Atraumatic, PERRLA, EOMI, Normocephalic Oral: Moist Mucosa Neck: Supple, No JVD Lungs: Diminished, Normal air movement, No rhonchi, No wheeze, No rales Cardiovascular: Regular rate, Regular Rhythm, Normal S1, Normal S2, No murmurs Abdomen: Soft, Non Tender, Non-Distended, No Hepato-splenomegaly Extremities: No edema, Capillary Refill Less than 3 Seconds Skin: No rashes, No breakdown Musculoskeletal: No Tenderness to Palpation of Joints or Extremities Neurological: No focal neurological deficit, Motor Exam 5/5 strength throughout, Sensory exam intact to light touch and pain Psych/Mental Status: Normal Affect, Appropriate Assessment & Plan Assessment/Plan (1) Acute kidney injury superimposed on CKD: (2) Hyponatremia: (3) High anion gap metabolic acidosis: PLAN: Plan 1. CEE on CKD stage IV with hyponatremia with an anion gap metabolic acidosis with anemia of chronic disease ? He was given gentle hydration and nephrology was consulted ? Still like to proceed with a tunneled dialysis catheter and then dialysis given his uremia ? His acidosis is likely due to his uremia unfortunately cannot proceed today with an INR 3.8, it we will hold his Coumadin and recheck INR in the morning if still elevated then can do vitamin K ? Sodium is 128 today, will continue to monitor ? Appreciate nephrology's assistance 2. Chronic diastolic CHF/A-fib/HTN ? Echo on 08/27/2023 with biatrial enlargement and moderate pulmonary artery hypertension with stage III diastolic dysfunction with an EF of 50 to 55% ? Blood pressure stable ? We will monitor make adjustments as necessary ? Can continue his home medications ? He does have a positive autoimmune workup and he needs to follow-up with rheumatology as an outpatient will start to wean the steroids ? INR still 3.8 will repeat in the morning 3. DM2 ? A1c in July was 6.2 ? Will hold his oral medications ? Continue with insulin and sliding scale insulin ? Accu-Cheks ACHS ? We will monitor make adjustments as necessary 4. Gout ? Stable?continue with allopurinol 5. BPH ? Stable ? Continue with finasteride DVT: Supratherapeutic INR Capacity Legal Inflatable Buildings Laminator Reflex Medical hold order details:: IF a medical hold is selected below, a suggested order for a MEDICAL HOLD will reflex upon signing the document. Next of kin: [place] law dictates a PRIORITY LIST for identifying legal decision-maker/legal next of kin in the following order (LNOK): 1st: The patient?s legal guardian, if any 2nd: The patient's spouse (if status is questionable, consult Risk Management) 3rd: The patient?s adult child(megha) (majority, if multiple children) 4th: The patient?s parents 5th: The patient?s adult siblings (majority, if multiple children siblings) Charges/Coding Visit Charges Inpatient E&M: 39669 Subs Hosp L2
--- NOTE | 2023-09-15 10:17 | CON.PCM.CC_ITS ---
Assessment & Plan Assessment/Plan (1) Acute kidney injury superimposed on CKD: PLAN: Plan RECOMMENDATIONS: 1. Wean prednisone to 50 mg daily. Recommend weaning by 10 mg weekly until he can be followed up with his primary telehealth director. 2. Await evaluation by nephrology. 3. Continue PAP therapy nightly per home regimen. 4. Will sign off at this time from a pulmonary/critical care perspective. Please call with any questions. IMPRESSIONS: 1. CEE on CKD Medical management per nephrology. 2. History of heart failure with preserved ejection fraction/pulmonary hypertension The patient was noted to have moderate pulmonary hypertension on his last echocardiogram with a dilated left atrium, suggesting that he was not euvolemic at the time. I do suspect that his pulmonary hypertension is likely multifactorial with underlying cardiac implications and potential related to his underlying autoimmune condition. The patient was previously placed on steroids at the time of his discharge from his last hospitalization. At this time, I recommend that we decrease his prednisone to 50 mg daily, with plans to decrease by 10 mg weekly until he can follow-up with his primary telehealth director after discharge. 3. Positive autoimmune workup Unclear autoimmune diagnosis, as the patient is followed by Dr. Conner on an outpatient basis. Recommend management of steroids as noted above, with close outpatient follow-up with his telehealth director. 4. History of obstructive sleep apnea/atrial fibrillation/diabetes mellitus/hypertension/BPH Complicates care, management, recovery and prognosis. Continue supportive care and home medications as indicated. Continue nocturnal PAP therapy per home regimen. This note was generated with [employer] dictation software. It may contain incorrect words, spelling, and punctuation that were not noted in checking the note before signing. HPI Consult Data Date of Consult: 09/15/23 HPI Narrative Reason for Consultation: Pulmonary hypertension HPI Narrative: The patient is an 78-year-old male, with a history as outlined below, who was r eferred to the emergency department for evaluation after recent lab work revealed abnormal values. The patient was just recently admitted to the hospital last month with sepsis and shortness of breath. His echocardiogram obtained at that time demonstrated moderate concentric LVH with stage III silvia stolic dysfunction. The left atrium was severely enlarged. Moderate pulmonary hypertension was noted. The patient also had a positive autoimmune workup, but reported that he is currently being followed by Dr. Conner for an unspecified rheumatologic condition. The patient also reported that he has already been evaluated by [facility] in [place] in the past. At the time of his recent discharge from the hospital, he was sent home on 60 mg of prednisone. The patient reported that he was scheduled to be seen by his telehealth director today, but canceled his appointment on account of having been admitted to the hospital. The patient's medical history also includes chronic atrial f ibrillation, chronic kidney disease and obstructive sleep apnea. On presentation to the emergency department, the patient was noted to have a white blood cell count of 26,000. INR was noted to be 3.8. Chemistry profile was notable for a sodium of 124, potassium 3.3, Beth of 81, anion gap of 18, BUN of 131 and creatinine of 3.06. Troponin was increased at 195 with a BNP of 203. Chest x-ray demonstrated no acute cardiopulmonary process. The patient was subsequent admitted to the hospital, pending evaluation by nephrology. I did speak with the admitting hospitalist regarding his prednisone management recommended that he be tapered to 50 mg. The patient is otherwise hemodynamically stable and maintaining appropriate oxygen saturations on room air. [facility] Medical History Abnormal ankle brachial index (LOKI) Acute hypoxic respiratory failure Anemia due to stage 3b chronic kidney disease Back pain BPH (benign prostatic hyperplasia) Cardiology follow-up encounter CHF NYHA class III Chronic combined systolic and diastolic CHF (congestive heart failure) Chronic kidney disease, stage 3b Claudication Constipation CPAP (continuous positive airway pressure) dependence Diabetes Diarrhea Dietary restriction Elevated troponin (01/2021) Essential (primary) hypertension Gout Heartburn History of echocardiogram History of edema History of irregular heartbeat History of non-ST elevation myocardial infarction (NSTEMI) (07/25/21) History of pain when walking History of steroid therapy History of tobacco use HLD (hyperlipidemia) Hypertension Hypertrophic cardiomyopathy Hypokalemia Joint pain Lactic acidosis Left bundle branch block Leg cramps Leukocytosis Longstanding persistent atrial fibrillation Mitral valve insufficiency Night sweats 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 Obesity (BMI 30.0-34.9) KIMBERLY (obstructive sleep apnea) Persistent atrial fibrillation Poor appetite Presence of implantable pulmonary artery pressure and heart rate monitoring system (03/25/21) Renal infarct Restless legs Secondary pulmonary arterial hypertension Shortness of breath on exertion Wears glasses Home Medications finasteride 5 mg tablet 5 mg PO DAILY prostate 12/19/20 [History Last Taken 12/22/20] warfarin 2.5 mg tablet See Rx Instructions PO .COMPLEX blood thinner 03/11/21 [History Last Taken 05/31/22] cyanocobalamin (vitamin B-12) 1,000 mcg tablet (Vitamin B-12) 1,000 mcg PO DAILY supplement 06/26/22 [History Last Taken Unknown] carvedilol 6.25 mg tablet 6.25 mg PO BID #60 tabs 05/13/23 [Rx Last Taken Unknown] amlodipine 5 mg tablet 5 mg PO DAILY #90 tabs 07/07/23 [Rx Last Taken Unknown] dapagliflozin propanediol 10 mg tablet (Farxiga) 10 mg PO DAILY diabetes 08/29/23 [History Last Taken Unknown] gabapentin 100 mg capsule 100 mg PO QHS unsure 08/29/23 [History Last Taken Unknown] pantoprazole 40 mg tablet,delayed release 40 mg PO DAILY prevent stomach ulcers 08/29/23 [History Last Taken Unknown] allopurinol 100 mg tablet 200 mg (2 x 100 mg) PO DAILYCM #30 tabs 09/03/23 [Rx Last Taken Unknown] bumetanide 0.5 mg tablet 1 mg (2 x 0.5 mg) PO BID #120 tabs 09/03/23 [Rx Last Taken Unknown] insulin glargine-yfgn 100 unit/mL (3 mL) subcutaneous pen 10 unit (0.1 mL) subcut DAILY #15 mL 09/03/23 [Rx Last Taken Unknown] pen needle, diabetic 33 gauge x 3/16 #100 ea 09/03/23 [Rx Last Taken Unknown] prednisone 20 mg tablet 60 mg (3 x 20 mg) PO BREAKFAST #63 tabs 09/03/23 [Rx Last Taken Unknown] metolazone 2.5 mg tablet 2.5 mg PO .Thursday #8 tabs 09/09/23 [Rx Last Taken Unknown] potassium chloride 20 mEq tablet,extended release 20 meq PO .COMPLEX 09/09/23 [History Last Taken Unknown] Allergy/AdvReac Type Severity Reaction Status Date / Time rivaroxaban [From Xarelto] Allergy Bleeding Verified 09/14/23 13:37 metoprolol AdvReac bradycardia Verified 09/14/23 13:37 Family History Father Heart disease Sister Heart disease Brother Heart disease Other Arthritis CVA (cerebral vascular accident) Depression Mental disorder Surgical History History of appendectomy History of cataract extraction History of left heart catheterization (02/19/21) History of transurethral resection of prostate (01/2019) History of ventricular septal myectomy (2000) Hx of umbilical hernia repair Social History Smoking Status: Former smoker how long ago did patient quit smokin years ago 0.25ppd second hand exposure: Yes alcohol intake: never caffeine: Yes Type: coffee Number of servings: 1 what type of physical activity do you participate in: other details: treadmill frequency: daily ROS ROS Narrative 10 systems were reviewed with pertinent positives as noted in the HPI above. Physical Exam Const alert and no apparent distress General Appearance: cooperative HEENT normocephalic and head/scalp atraumatic Eyes PERRL, EOMs intact bilaterally and conjunctivae normal Neck supple General: trachea midline Chest inspection of chest normal Resp normal respiratory effort Auscultation: Negative for rales, rhonchi or wheezes Cardio S1 normal heart sound and S2 normal heart sound Rhythm: abnormal rhythm GI normal to inspection, nondistended, normoactive bowel sounds Extremity no clubbing, cyanosis or edema Skin Skin Narrative: Scattered ecchymoses present on upper extremities. Neuro CN's II-XII intact bilaterally, moves all extremities and no focal motor deficits Psych cooperative and affect normal Lab / Micro Data 09/15/23 03:15 09/15/23 03:15 Labs: Laboratory Results - last 24 hr 09/14/23 15:30: WBC 26.1 H, RBC 4.32 L, Hgb 12.6 L, Hct 36.1 L, MCV 83.6, MCH 29.2, MCHC 34.9, RDW Std Deviation 39.5, RDW Coeff of Kiersten 13.0, Plt Count 272, MPV 13.2 H, Immature Gran % (Auto) 2.000 H, Neut % (Auto) 92.7 H, Lymph % (Auto) 2.5 L, [place] % (Auto) 2.6, Eos % (Auto) 0.0, Baso % (Auto) 0.2, Absolute Neuts (auto) 24.2 H, Absolute Lymphs (auto) 0.65 L, Nucleated RBC % 0, Differential Comment SCANNED, PT 38.2 H, INR 3.8, Sodium 124 L, Potassium 3.3 L, Chloride 81 L, Carbon Dioxide 25.0, Anion Gap 18 H, BUN 131 H*, Creatinine 3.06 H, Estim Creat Clear Calc 18.15, Est GFR (MDRD) Af Amer 25 L, Est GFR (MDRD) Non-Af 21 L, BUN/Creatinine Ratio 42.8 H, Glucose 264 H, Calcium 8.8, Total Bilirubin 0.80, AST 34, ALT 65 H, Alkaline Phosphatase 84, Troponin I High Sens 195 H*, B- Natriuretic Peptide 203.8 H, Total Protein 7.2, Albumin 3.2, Globulin 4.0, Albumin/Globulin Ratio 0.8 L 09/14/23 15:47: Blood Type A NEGATIVE, Antibody Screen NEGATIVE 09/14/23 16:17: Urine Color Yellow, Urine Clarity Sl. Cloudy, Urine pH 6.0, Ur Specific [place] 1.015, Urine Protein 30 H, Urine Glucose (UA) 1000 H, Urine Ketones Negative, Urine Occult Blood 10 H, Urine Nitrite Positive H, Urine Bilirubin Negative, Urine Urobilinogen Normal, Ur Leukocyte Esterase 25 H, Urine RBC 0-5 SEEN, Urine WBC 0-5 SEEN, Ur Squamous Epith Cells 0-5 SEEN, Amorphous Sediment 1+ URATE, Urine Bacteria 0 SEEN, Urine Mucus 0 SEEN 09/14/23 20:45: POC Glucose 316 H 09/15/23 03:15: WBC 24.3 H, RBC 4.40 L, Hgb 12.7 L, Hct 36.7 L, MCV 83.4, MCH 28.9, MCHC 34.6, RDW Std Deviation 39.1, RDW Coeff of Kiersten 13.0, Plt Count 275, MPV 13.0 H, Immature Gran % (Auto) 1.500 H, Neut % (Auto) 87.5 H, Lymph % (Auto) 3.7 L, [place] % (Auto) 7.1, Eos % (Auto) 0.0, Baso % (Auto) 0.2, Absolute Neuts (auto) 21.3 H, Absolute Lymphs (auto) 0.91, Nucleated RBC % 0, Differential Comment SCANNED, Diff Path Review May foll, PT 37.9 H, INR 3.8, Sodium 128 L, Potassium 3.1 L, Chloride 85 L, Carbon Dioxide 28.0, Anion Gap 15, BUN 131 H*, Creatinine 2.96 H, Estim Creat Clear Calc 19.01, Est GFR (MDRD) Af Amer 26 L, Est GFR (MDRD) Non-Af 22 L, BUN/Creatinine Ratio 44.3 H, Glucose 247 H, Calcium 8.9, Phosphorus 5.3 H, Magnesium 2.6, Total Bilirubin 0.60, AST 35, ALT 61, Alkaline Phosphatase 80, Total Protein 7.1, Albumin 3.2, Globulin 3.9, Albumin/Globulin Ratio 0.8 L 09/15/23 08:38: POC Glucose 168 H Imagaing Radiology Impression Chest X-Ray 09/14/23 15:36 IMPRESSION: Minimal left basilar atelectasis. Otherwise no acute cardiopulmonary disease. Electronically Signed: Yvonne Gan MD at 16:48 EST , Capacity Legal Tubing Tester Reflex Medical hold order details:: IF a medical hold is selected below, a suggested order for a MEDICAL HOLD will reflex upon signing the document. Next of kin: [place] law dictates a PRIORITY LIST for identifying legal decision-maker/legal next of kin in the following order (LNOK): 1st: The patient?s legal guardian, if any 2nd: The patient's spouse (if status is questionable, consult Risk Management) 3rd: The patient?s adult child(megha) (majority, if multiple children) 4th: The patient?s parents 5th: The patient?s adult siblings (majority, if multiple children siblings) Charges/Coding Visit Charges Inpatient E&M: 74552 Init Hosp L3
--- NOTE | 2023-09-15 10:25 | PCM.CONS.R ---
Assessment & Plan Assessment/Plan (1) Chronic kidney disease, stage 4 (severe): PLAN: Plan This is a pleasant 78-year-old male with past medical history significant for chronic kidney disease stage IV, diabetes mellitus type 2, hypertension, coronary artery disease, heart failure preserved EF (echo from 08/27/2023 showed EF 50 to 55%, stage III diastolic dysfunction, biatrial enlargement, moderate mitral valve insufficiency, moderate pulmonary artery hypertension), pulmonary hypertension, KIMBERLY and hyperlipidemia who presented to the emergency room yesterday under the direction of his PCP for abnormal labs, elevated INR and sodium of 122. To note, prior to this hospitalization patient has had 2 hospital admissions, first admission between 08/25 to 08/28/2023 with acute hypoxic respiratory failure attributed to heart failure exacerbation. And second admission for acute hypoxic respiratory failure secondary to acute exacerbation of diastolic, right-sided heart failure with flash pulmonary edema. With diuresis volume status improved, renal function remained stable and patient did not need any SORT MANAGER during either of the last 2 hospitalizations. Patient was on steroids and discharged to home on prednisone 60 mg daily. He is following with rheumatology, Dr. Conner (KAILA positive, rheumatoid factor positive, CCP antibodies pending, double-stranded DNA borderline, anti-SSB antibody borderline, ANCA antibody negative), unclear autoimmune diagnosis. Prednisone has now been weaned down to 50 mg daily. For this admission, nephrology consulted as patient has history of CKD stage 4/ recurrent hypervolemia. Baseline serum creatinine has been ranging around 2.3 to 2.5 mg/dL prior to these past few hospitalizations. On presentation to the emergency room patient's BUN was 136, creatinine 3.05 and sodium 122. Lab work today BUN 131, creatinine 2.96 and sodium 128. Patient states of recent he has been trying to restrict his fluids. CXR on admission did not show any acute process. INR yesterday and today 3.8. Coumadin on hold. Discussed with patient and daughter at bedside that given recurrent hypervolemia, mild uremia, recommending starting renal replacement therapy which will assist with volume control. Hemodialysis quite possibly will be on short-term basis. We will monitor volume status and renal function at outpatient kidney center with hopes to stop dialysis once volume status has improved. Once better improvement in volume status may see more true picture of renal function/GFR. Continue diuretics. Patient and daughter voiced understanding. Questions answered. Will consult surgery team for tunneled hemodialysis catheter placement. INR is elevated at 3.8, Coumadin on hold. Per patient last Coumadin dose was Thursday evening. Fortunately patient does not need emergent hemodialysis today. Once tunneled hemodialysis catheter placed we will begin dialysis. Will consult discharge planning team for outpatient hemodialysis arrangements. Hepatitis B surface antigen to be drawn tomorrow morning. Further orders forthcoming as hospitalization evolves, thank you for allowing us to participate in the care of Mr. Osman. HPI Consult Data Date of Consult: 09/15/23 HPI Narrative HPI Narrative: ANTWAN OSMAN, is a 78 M with past medical history significant for chronic kidney disease stage IV, diabetes mellitus type 2, hypertension, coronary artery disease, heart failure preserved EF (echo from 08/27/2023 showed EF 50 to 55%, stage III diastolic dysfunction, biatrial enlargement, moderate mitral valve insufficiency, moderate pulmonary artery hypertension), pulmonary hypertension, KIMBERLY and hyperlipidemia who presented to the emergency room yesterday under the direction of his PCP for abnormal labs. Patient was admitted for mildly hypervolemic CEE on CKD stage IV, hyponatremia. Nephrology consulted as patient has history of CKD, CEE. Patient was just recently discharged from the hospital. He was admitted on August 29, 2023 and discharged to home on September 03, 2023. He was admitted for acute hypoxic respiratory failure secondary to acute exacerbation of diastolic, right-sided heart failure with flash pulmonary edema. With diuresis volume status improved, renal function remained stable and patient did not need any SORT MANAGER during that hospitalization. Patient was on steroids and discharged to home on prednisone 60 mg daily. Patient reports since last hospitalization overall he has been feeling better, per patient and his daughter who is at bedside patient's volume status has improved. Patient reports his peak weight during last hospitalization was 190 pounds and his weight is now down to around 171 pounds. Patient denies any nausea, vomiting or diarrhea. [facility] Medical History Abnormal ankle brachial index (LOKI) Acute hypoxic respiratory failure Anemia due to stage 3b chronic kidney disease Back pain BPH (benign prostatic hyperplasia) Cardiology follow-up encounter CHF NYHA class III Chronic combined systolic and diastolic CHF (congestive heart failure) Chronic kidney disease, stage 3b Claudication Constipation CPAP (continuous positive airway pressure) dependence Diabetes Diarrhea Dietary restriction Elevated troponin (01/2021) Essential (primary) hypertension Gout Heartburn History of echocardiogram History of edema History of irregular heartbeat History of non-ST elevation myocardial infarction (NSTEMI) (07/25/21) History of pain when walking History of steroid therapy History of tobacco use HLD (hyperlipidemia) Hypertension Hypertrophic cardiomyopathy Hypokalemia Joint pain Lactic acidosis Left bundle branch block Leg cramps Leukocytosis Longstanding persistent atrial fibrillation Mitral valve insufficiency Night sweats 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 Obesity (BMI 30.0-34.9) KIMBERLY (obstructive sleep apnea) Persistent atrial fibrillation Poor appetite Presence of implantable pulmonary artery pressure and heart rate monitoring system (03/25/21) Renal infarct Restless legs Secondary pulmonary arterial hypertension Shortness of breath on exertion Wears glasses Home Medications finasteride 5 mg tablet 5 mg PO DAILY prostate 12/19/20 [History Last Taken 12/22/20] warfarin 2.5 mg tablet See Rx Instructions PO .COMPLEX blood thinner 03/11/21 [History Last Taken 05/31/22] cyanocobalamin (vitamin B-12) 1,000 mcg tablet (Vitamin B-12) 1,000 mcg PO DAILY supplement 06/26/22 [History Last Taken Unknown] carvedilol 6.25 mg tablet 6.25 mg PO BID #60 tabs 05/13/23 [Rx Last Taken Unknown] amlodipine 5 mg tablet 5 mg PO DAILY #90 tabs 07/07/23 [Rx Last Taken Unknown] dapagliflozin propanediol 10 mg tablet (Farxiga) 10 mg PO DAILY diabetes 08/29/23 [History Last Taken Unknown] gabapentin 100 mg capsule 100 mg PO QHS unsure 08/29/23 [History Last Taken Unknown] pantoprazole 40 mg tablet,delayed release 40 mg PO DAILY prevent stomach ulcers 08/29/23 [History Last Taken Unknown] allopurinol 100 mg tablet 200 mg (2 x 100 mg) PO DAILYCM #30 tabs 09/03/23 [Rx Last Taken Unknown] bumetanide 0.5 mg tablet 1 mg (2 x 0.5 mg) PO BID #120 tabs 09/03/23 [Rx Last Taken Unknown] insulin glargine-yfgn 100 unit/mL (3 mL) subcutaneous pen 10 unit (0.1 mL) subcut DAILY #15 mL 09/03/23 [Rx Last Taken Unknown] pen needle, diabetic 33 gauge x 11/13 #100 ea 09/03/23 [Rx Last Taken Unknown] prednisone 20 mg tablet 60 mg (3 x 20 mg) PO BREAKFAST #63 tabs 09/03/23 [Rx Last Taken Unknown] metolazone 2.5 mg tablet 2.5 mg PO .Thursday #8 tabs 09/09/23 [Rx Last Taken Unknown] potassium chloride 20 mEq tablet,extended release 20 meq PO .COMPLEX 09/09/23 [History Last Taken Unknown] Allergy/AdvReac Type Severity Reaction Status Date / Time rivaroxaban [From Xarelto] Allergy Bleeding Verified 09/14/23 13:37 metoprolol AdvReac bradycardia Verified 09/14/23 13:37 Family History Father Heart disease Sister Heart disease Brother Heart disease Other Arthritis CVA (cerebral vascular accident) Depression Mental disorder Surgical History History of appendectomy History of cataract extraction History of left heart catheterization (02/19/21) History of transurethral resection of prostate (01/2019) History of ventricular septal myectomy (2000) Hx of umbilical hernia repair Social History Smoking Status: Former smoker how long ago did patient quit smokin years ago 0.25ppd second hand exposure: Yes alcohol intake: never caffeine: Yes Type: coffee Number of servings: 1 what type of physical activity do you participate in: other details: treadmill frequency: daily ROS ROS Narrative As in HPI and past medical history Physical Exam Narrative Alert and orient x 3, no apparent distress S1, S2, RRR Lung sounds clear anteriorly, diminished breath sounds posterior bases. Trace edema to bilateral lower legs or feet Lab / Micro Data 09/15/23 03:15 09/15/23 03:15 Labs: Laboratory Results - last 24 hr 09/14/23 15:30: WBC 26.1 H, RBC 4.32 L, Hgb 12.6 L, Hct 36.1 L, MCV 83.6, MCH 29.2, MCHC 34.9, RDW Std Deviation 39.5, RDW Coeff of Kiersten 13.0, Plt Count 272, MPV 13.2 H, Immature Gran % (Auto) 2.000 H, Neut % (Auto) 92.7 H, Lymph % (Auto) 2.5 L, [place] % (Auto) 2.6, Eos % (Auto) 0.0, Baso % (Auto) 0.2, Absolute Neuts (auto) 24.2 H, Absolute Lymphs (auto) 0.65 L, Nucleated RBC % 0, Differential Comment SCANNED, PT 38.2 H, INR 3.8, Sodium 124 L, Potassium 3.3 L, Chloride 81 L, Carbon Dioxide 25.0, Anion Gap 18 H, BUN 131 H*, Creatinine 3.06 H, Estim Creat Clear Calc 18.15, Est GFR (MDRD) Af Amer 25 L, Est GFR (MDRD) Non-Af 21 L, BUN/Creatinine Ratio 42.8 H, Glucose 264 H, Calcium 8.8, Total Bilirubin 0.80, AST 34, ALT 65 H, Alkaline Phosphatase 84, Troponin I High Sens 195 H*, B-Natriuretic Peptide 203.8 H, Total Protein 7.2, Albumin 3.2, Globulin 4.0, Albumin/Globulin Ratio 0.8 L 09/14/23 15:47: Blood Type A NEGATIVE, Antibody Screen NEGATIVE 09/14/23 16:17: Urine Color Yellow, Urine Clarity Sl. Cloudy, Urine pH 6.0, Ur Specific [place] 1.015, Urine Protein 30 H, Urine Glucose (UA) 1000 H, Urine Ketones Negative, Urine Occult Blood 10 H, Urine Nitrite Positive H, Urine Bilirubin Negative, Urine Urobilinogen Normal, Ur Leukocyte Esterase 25 H, Urine RBC 0-5 SEEN, Urine WBC 0-5 SEEN, Ur Squamous Epith Cells 0-5 SEEN, Amorphous Sediment 1+ URATE, Urine Bacteria 0 SEEN, Urine Mucus 0 SEEN 09/14/23 20:45: POC Glucose 316 H 09/15/23 03:15: WBC 24.3 H, RBC 4.40 L, Hgb 12.7 L, Hct 36.7 L, MCV 83.4, MCH 28.9, MCHC 34.6, RDW Std Deviation 39.1, RDW Coeff of Kiersten 13.0, Plt Count 275, MPV 13.0 H, Immature Gran % (Auto) 1.500 H, Neut % (Auto) 87.5 H, Lymph % (Auto) 3.7 L, Alger % (Auto) 7.1, Eos % (Auto) 0.0, Baso % (Auto) 0.2, Absolute Neuts (auto) 21.3 H, Absolute Lymphs (auto) 0.91, Nucleated RBC % 0, Differential Comment SCANNED, Diff Path Review December foll, PT 37.9 H, INR 3.8, Sodium 128 L, Potassium 3.1 L, Chloride 85 L, Carbon Dioxide 28.0, Anion Gap 15, BUN 131 H*, Creatinine 2.96 H, Estim Creat Clear Calc 19.01, Est GFR (MDRD) Af Amer 26 L, Est GFR (MDRD) Non-Af 22 L, BUN/Creatinine Ratio 44.3 H, Glucose 247 H, Calcium 8.9, Phosphorus 5.3 H, Magnesium 2.6, Total Bilirubin 0.60, AST 35, ALT 61, Alkaline Phosphatase 80, Total Protein 7.1, Albumin 3.2, Globulin 3.9, Albumin/Globulin Ratio 0.8 L 09/15/23 08:38: POC Glucose 168 H Imagaing Radiology Impression Chest X-Ray 09/14/23 15:36 IMPRESSION: Minimal left basilar atelectasis. Otherwise no acute cardiopulmonary disease. Electronically Signed: Yvonne Gan MD at 16:48 EST , Capacity Legal Certified Athletic Trainer Reflex Medical hold order details:: IF a medical hold is selected below, a suggested order for a MEDICAL HOLD will reflex upon signing the document. Next of kin: [place] law dictates a PRIORITY LIST for identifying legal decision-maker/legal next of kin in the following order (LNOK): 1st: The patient?s legal guardian, if any 2nd: The patient's spouse (if status is questionable, consult Risk Management) 3rd: The patient?s adult child(megha) (majority, if multiple children) 4th: The patient?s parents 5th: The patient?s adult siblings (majority, if multiple children siblings)
[2023-09-15] MEDS: 0.9% Saline Lock 10 ML Syringe IV (11:00)
[2023-09-15] MEDS: Insulin Glargine-YFGN 100 UNIT/ML Pen 15 UNIT SC (11:00)
[2023-09-15] MEDS: amLODIPine 5 MG Tablet PO (11:00)
[2023-09-15] MEDS: Cyanocobalamin 500 MCG Tablet 1000 MCG PO (11:00)
[2023-09-15] MEDS: Pantoprazole Sodium 40 MG Tablet PO (11:00)
[2023-09-15] MEDS: Finasteride 5 MG Tablet PO (11:00)
[2023-09-15 12:16] LABS: Bedside Glucose 298 mg/dL (74-106)
--- NOTE | 2023-09-15 12:52 | NURSING ---
09/15/23@1245- REPORT CALLED TO DALTON GRUBER RN ON PCU. VSS. PT TO BE TRANSPORTED BY [facility] VIA W/C.
[2023-09-15 13:08] LABS: Pathologist Review Reviewed
[2023-09-15 13:15] VITALS: BP 130/65; PULSE 64; RESP 18; TEMP 36.4; O2SAT 96
[2023-09-15] MEDS: Potassium Chloride Oral Tablet 20 MEQ PO (14:22)
--- NOTE | 2023-09-15 15:45 | CASEMGMT ---
RN CM chart review: Patient was admitted 08/25-08/28/23 and 08/29-09/03/23 for CHF exacerbation. See assessment from 08/26/23. Patient was discharged to home with family support and follow-up plans in place. Patient returned to [facility] ED after being sent in by PCP for abnormal labs. Patient admitted for CEE on CKD. Nephrology consult and updated RN CM that patient will need HD at discharge. RN CM in to discuss readmission and discharge planning with patient, at bedside. Patient states he was taking medication, following fluid restrictions, and sodium reduced diet. Patient agreeable to [facility] for outpatient HD. Patient denies needs at discharge. CM will continue to monitor this patient and plan for a safe discharge.
[2023-09-15 17:10] VITALS: BP 137/74; PULSE 64; RESP 18; TEMP 36.4; O2SAT 98
[2023-09-15 17:31] LABS: Bedside Glucose 267 mg/dL (74-106)
--- NOTE | 2023-09-15 17:56 | CON.PCM.SX_ITS ---
Assessment & Plan Assessment/Plan (1) Acute kidney injury superimposed on CKD: (2) Chronic kidney disease, stage 4 (severe): PLAN: Plan This is an 78-year-old male with a history of chronic kidney disease and now with superimposed acute kidney injury who is evaluated for possible tunneled hemodialysis catheter insertion. Indication for insertion would be some modest volume overload as well as uremia with a present BUN of over 130. At bedside patient is not dyspneic and appears cognitively intact. He mentions initial reluctance with undergoing dialysis, but has now been convinced of its merit by nephrology. He has no pre-existing history of central lines, however, he does mention that cardiology (Dr. Turk) did face a cardiac pause when instrumenting his heart in the past. I believe this should be taken into consideration as we make a final decision for patient to undergo the requested procedure. Additionally, I have requested that primary hospitalist service begin reversal of patient's INR in anticipation of the procedure. Procedure was described to the patient in detail as well as post procedure expectations. He denies further questions. I will look to arrange operative time either tomorrow or the day following. Please keep n.p.o. past midnight in the event that we are able to g et operative time tomorrow and I will be in communication with patient's primary team as to final arrangements. HPI Consult Data Date of Consult: 09/15/23 HPI Narrative Reason for Consultation: Consideration of tunneled hemodialysis catheter insertion HPI Narrative: ANTWAN OSMAN, is a 78 M who is admitted to [facility] on the account of presentation for weakness and what is reported as a acute on chronic congestive heart failure episode. Patient is a longtime patient of nephrology due to a history of CKD 3. It is apparent to nephrology that patient has suffered some acute kidney injury on top of his CKD and they now wish to initiate hemodialysis primarily for correcting patient's volume overload and uremia. Patient shares that he was longtime reluctant to begin dialysis but has since been convinced of its merits. He denies any awareness of a prior central line placement. He denies any history of a present infection or concern for 1. He also denies any history of recurrent skin infections, specifically. Mr. Osman is on Coumadin for history of atrial fibrillation and his latest INR is 3.8. ON LICENSE OF [facility] Medical History Abnormal ankle brachial index (LOKI) Acute hypoxic respiratory failure Anemia due to stage 3b chronic kidney disease Back pain BPH (benign prostatic hyperplasia) Cardiology follow-up encounter CHF NYHA class III Chronic combined systolic and diastolic CHF (congestive heart failure) Chronic kidney disease, stage 3b Claudication Constipation CPAP (continuous positive airway pressure) dependence Diabetes Diarrhea Dietary restriction Elevated troponin (01/2021) Essential (primary) hypertension Gout Heartburn History of echocardiogram History of edema History of irregular heartbeat History of non-ST elevation myocardial infarction (NSTEMI) (07/25/21) History of pain when walking History of steroid therapy History of tobacco use HLD (hyperlipidemia) Hypertension Hypertrophic cardiomyopathy Hypokalemia Joint pain Lactic acidosis Left bundle branch block Leg cramps Leukocytosis Longstanding persistent atrial fibrillation Mitral valve insufficiency Night sweats 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 Obesity (BMI 30.0-34.9) KIMBERLY (obstructive sleep apnea) Persistent atrial fibrillation Poor appetite Presence of implantable pulmonary artery pressure and heart rate monitoring system (03/25/21) Renal infarct Restless legs Secondary pulmonary arterial hypertension Shortness of breath on exertion Wears glasses Home Medications finasteride 5 mg tablet 5 mg PO DAILY prostate 12/19/20 [History Last Taken 12/22/20] warfarin 2.5 mg tablet See Rx Instructions PO .COMPLEX blood thinner 03/11/21 [History Last Taken 05/31/22] cyanocobalamin (vitamin B-12) 1,000 mcg tablet (Vitamin B-12) 1,000 mcg PO DAILY supplement 06/26/22 [History Last Taken Unknown] carvedilol 6.25 mg tablet 6.25 mg PO BID #60 tabs 05/13/23 [Rx Last Taken Unknown] amlodipine 5 mg tablet 5 mg PO DAILY #90 tabs 07/07/23 [Rx Last Taken Unknown] dapagliflozin propanediol 10 mg tablet (Farxiga) 10 mg PO DAILY diabetes 08/29/23 [History Last Taken Unknown] gabapentin 100 mg capsule 100 mg PO QHS unsure 08/29/23 [History Last Taken Unknown] pantoprazole 40 mg tablet,delayed release 40 mg PO DAILY prevent stomach ulcers 08/29/23 [History Last Taken Unknown] allopurinol 100 mg tablet 200 mg (2 x 100 mg) PO DAILYCM #30 tabs 09/03/23 [Rx Last Taken Unknown] bumetanide 0.5 mg tablet 1 mg (2 x 0.5 mg) PO BID #120 tabs 09/03/23 [Rx Last Taken Unknown] insulin glargine-yfgn 100 unit/mL (3 mL) subcutaneous pen 10 unit (0.1 mL) subcut DAILY #15 mL 09/03/23 [Rx Last Taken Unknown] pen needle, diabetic 33 gauge x 16 #100 ea 09/03/23 [Rx Last Taken Unknown] prednisone 20 mg tablet 60 mg (3 x 20 mg) PO BREAKFAST #63 tabs 09/03/23 [Rx Last Taken Unknown] metolazone 2.5 mg tablet 2.5 mg PO .Thursday #8 tabs 09/09/23 [Rx Last Taken Unknown] potassium chloride 20 mEq tablet,extended release 20 meq PO .COMPLEX 09/09/23 [History Last Taken Unknown] Allergy/AdvReac Type Severity Reaction Status Date / Time rivaroxaban [From Xarelto] Allergy Bleeding Verified 09/14/23 13:37 metoprolol AdvReac bradycardia Verified 09/14/23 13:37 Family History Father Heart disease Sister Heart disease Brother Heart disease Other Arthritis CVA (cerebral vascular accident) Depression Mental disorder Surgical History History of appendectomy History of cataract extraction History of left heart catheterization (02/19/21) History of transurethral resection of prostate (01/2019) History of ventricular septal myectomy (2000) Hx of umbilical hernia repair Social History Smoking Status: Former smoker how long ago did patient quit smokin years ago 0.25ppd second hand exposure: Yes alcohol intake: never caffeine: Yes Type: coffee Number of servings: 1 what type of physical activity do you participate in: other details: treadmill frequency: daily Physical Exam Const alert, oriented x3 and no apparent distress Neck Neck Narrative: No scars no rashes, no cutaneous eruptions Chest Chest Narrative: Unremarkable appearance Resp normal respiratory effort Lab / Micro Data 09/15/23 03:15 09/15/23 03:15 Labs: Laboratory Results - last 24 hr 09/14/23 20:45: POC Glucose 316 H 09/15/23 03:15: WBC 24.3 H, RBC 4.40 L, Hgb 12.7 L, Hct 36.7 L, MCV 83.4, MCH 28.9, MCHC 34.6, RDW Std Deviation 39.1, RDW Coeff of Kiersten 13.0, Plt Count 275, MPV 13.0 H, Immature Gran % (Auto) 1.500 H, Neut % (Auto) 87.5 H, Lymph % (Auto) 3.7 L, [place] % (Auto) 7.1, Eos % (Auto) 0.0, Baso % (Auto) 0.2, Absolute Neuts (auto) 21.3 H, Absolute Lymphs (auto) 0.91, Nucleated RBC % 0, Differential Comment SCANNED, Diff Path Review Reviewed, PT 37.9 H, INR 3.8, Sodium 128 L, Potassium 3.1 L, Chloride 85 L, Carbon Dioxide 28.0, Anion Gap 15, BUN 131 H*, Creatinine 2.96 H, Estim Creat Clear Calc 19.01, Est GFR (MDRD) Af Amer 26 L, Est GFR (MDRD) Non-Af 22 L, BUN/Creatinine Ratio 44.3 H, Glucose 247 H, Calcium 8.9, Phosphorus 5.3 H, Magnesium 2.6, Total Bilirubin 0.60, AST 35, ALT 61, Alkaline Phosphatase 80, Total Protein 7.1, Albumin 3.2, Globulin 3.9, Albumin/Globulin Ratio 0.8 L 09/15/23 08:38: POC Glucose 168 H 09/15/23 11:37: POC Glucose 298 H 09/15/23 17:13: POC Glucose 267 H Capacity Legal Remittance Clerk Reflex Medical hold order details:: IF a medical hold is selected below, a suggested order for a MEDICAL HOLD will reflex upon signing the document. Next of kin: [place] law dictates a PRIORITY LIST for identifying legal decision-maker/legal next of kin in the following order (LNOK): 1st: The patient?s legal guardian, if any 2nd: The patient's spouse (if status is questionable, consult Risk Management) 3rd: The patient?s adult child(megha) (majority, if multiple children) 4th: The patient?s parents 5th: The patient?s adult siblings (majority, if multiple children siblings) Charges/Coding Visit Charges Inpatient E&M: 49987 Subs Hosp L2
[2023-09-15] MEDS: Phytonadione (Vit K1) 5 MG TABLET PO (18:04)
[2023-09-15 21:19] VITALS: BP 125/58; PULSE 67; RESP 18; TEMP 36.5; O2SAT 97
[2023-09-15] MEDS: Gabapentin 100 MG Capsule PO (21:31)
[2023-09-15 21:34] VITALS: BMI 28.0
[2023-09-15 22:19] LABS: Bedside Glucose 301 mg/dL (74-106)
[2023-09-16 03:10] VITALS: BP 119/98; PULSE 67; RESP 18; TEMP 36.2; O2SAT 100
--- NOTE | 2023-09-16 05:55 | EKG12_ITS ---
Test Reason : AM EKG Blood Pressure : / mmHG Vent. Rate : 062 BPM Atrial Rate : 068 BPM P-R Int : 000 ms QRS Dur : 170 ms QT Int : 488 ms P-R-T Axes : 000 -14 161 degrees QTc Int : 495 ms Ventricular-paced rhythm Abnormal ECG When compared with ECG of 14-SEP-2023 15:52, MANUAL COMPARISON REQUIRED, DATA IS UNCONFIRMED Confirmed by ZAEN STONER, FUENTES ([id number]), publication editor ANDRÉS MACK ([id number]) on 09/17/2023 7:05:23 AM Referred By: Confirmed By:FUENTES DEGROOT MD
[2023-09-16 06:21] VITALS: BP 128/66; PULSE 67; RESP 18; TEMP 36.6; O2SAT 96
[2023-09-16] MEDS: Pantoprazole Sodium 40 MG Tablet PO (06:25)
[2023-09-16] MEDS: Carvedilol 6.25 MG Tablet PO ×2 (06:25→16:42)
[2023-09-16] MEDS: amLODIPine 5 MG Tablet PO (06:26)
[2023-09-16] MEDS: 0.9% Saline Lock 10 ML Syringe IV (06:29)
[2023-09-16 06:50] LABS: Bedside Glucose 254 mg/dL (74-106)
[2023-09-16 07:04] LABS: Absolute Lymphocyte Count 0.45 X10^3/uL (0.83-4.51); Absolute Neutrophil Count 19.7 X10^3/uL (2.0-7.7); Basophil# 0.03 X10^3/uL; Basophil% 0.1 % (0-1); Eosinophil# 0.01 X10^3/uL; Lymphocyte # 0.45 X10^3/ul (0.83-4.51); Lymphocyte % 2.1 % (19-41); Mean Corp Hgb Conc 35.3 g/dL (32-36); Mean Corpuscular Hgb 29.5 pg (27.0-32.0); Mean Corpuscular Volume 83.5 fL (80-94); Monocyte# 1.08 X10^3/uL; NRBC Flagged by Analyzer 0 % (0-5); Neutrophil # 19.65 X10^3/uL (2.7-7.7); POSITIVE DIFFERENTIAL YES; Platelet Count 236 K/mm3 (150-450); RBC Distribution Width CV 13.1 % (11.6-14.6); RBC Distribution Width SD 39.8 fl (35.1-43.9); Red Blood Count 4.07 M/mm3 (4.6-6.2); White Blood Count 21.6 K/mm3 (4.4-11.0)
[2023-09-16 07:14] LABS: Differential Indicated SCAN CRITERIA MET
[2023-09-16 07:33] LABS: Anion Gap 10 (5-15); BUN 106 mg/dL (7-18); BUN/Creat Ratio 41.7 RATIO (10-20); Chloride 90 mmol/L (98-107); Creatinine, Serum 2.54 mg/dL (0.70-1.30); EST Glomerular Filtration Rate 26 mL/min (>60); Est Glom Filt Rate - Afr Amer 32 mL/min (>60); Estimated Creatinine Clearance 22.16 ml/min; Glucose 261 mg/dL (74-106); Potassium 3.1 mmol/L (3.5-5.1); Sodium Level 127 mmol/L (136-145)
[2023-09-16 07:44] LABS: Differential Comment S
[2023-09-16 07:55] LABS: Partial Thromboplast Time 110.3 Seconds (24.1-36.2)
[2023-09-16 08:09] LABS: International Normalized Ratio 2.3; Prothrombin Time (Protime)PT. 25.6 SECONDS (11.7-14.9)
[2023-09-16] MEDS: Phytonadione (Vit K1) 5 MG TABLET PO (08:53)
[2023-09-16 09:00] LABS: Hemoglobin A1c 7.2 % (3.8-5.6)
[2023-09-16 09:02] LABS: Hepatitis B Surface Antigen Non-Reactive (Nonreactive)
--- NOTE | 2023-09-16 11:02 | PCM.PN.REN ---
Subjective Subjective Sitting on side of bed. Denies any complaints. Objective Data Objective Data Vital Signs: Vital Signs Temp Pulse Resp BP Pulse Ox O2 Del Method 97.9 F 67 18 128/66 H 96 Room Air 09/16/23 06:21 09/16/23 06:21 09/16/23 06:21 09/16/23 06:21 09/16/23 06:21 09/16/23 08:13 Oxygen Delivery Method Room Air Weight: 76.6 kg Body Mass Index (BMI) 28.0 Intake & Output: Intake and Output for Last 24 Hours 09/14/23 09/15/23 09/16/23 23:59 23:59 23:59 Intake Total 550 / 550 720 / 720 Output Total 1475 / 1475 Balance 550 / 50 -755 / -755 Lab / Micro Data 09/16/23 06:40 09/16/23 06:40 Labs: Laboratory Results - last 24 hr 09/15/23 03:15: Diff Path Review Reviewed 09/15/23 11:37: POC Glucose 298 H 09/15/23 17:13: POC Glucose 267 H 09/15/23 21:30: POC Glucose 301 H 09/16/23 06:28: POC Glucose 254 H 09/16/23 06:40: WBC 21.6 H, RBC 4.07 L, Hgb 12.0 L, Hct 34.0 L, MCV 83.5, MCH 29.5, MCHC 35.3, RDW Std Deviation 39.8, RDW Coeff of Kiersten 13.1, Plt Count 236, MPV 13.0 H, Immature Gran % (Auto) 1.800 H, Neut % (Auto) 91.0 H, Lymph % (Auto) 2.1 L, [place] % (Auto) 5.0, Eos % (Auto) 0.0, Baso % (Auto) 0.1, Absolute Neuts (auto) 19.7 H, Absolute Lymphs (auto) 0.45 L, Nucleated RBC % 0, Differential Comment S, PT 25.6 H, INR 2.3, APTT 110.3 H*, Sodium 127 L, Potassium 3.1 L, Chloride 90 L, Carbon Dioxide 27.0, Anion Gap 10, BUN 106 H*, Creatinine 2.54 H, Estim Creat Clear Calc 22.16, Est GFR (MDRD) Af Amer 32 L, Est GFR (MDRD) Non-Af 26 L, BUN/Creatinine Ratio 41.7 H, Glucose 261 H, Hemoglobin A1c 7.2 H, Calcium 9.0, Hep Bs Antigen Non-Reactive Micro: Microbiology 09/14/23 16:17 Urine, Clean Catch Urine Culture - Preliminary Yeast Like Organism Physical Exam Narrative Alert and orient x 3, no apparent distress S1, S2, RRR Lung sounds slight diminished breath sounds posterior bases. Trace edema to bilateral lower legs and feet Assessment & Plan Assessment/Plan (1) Chronic kidney disease, stage 4 (severe): PLAN: Plan This is a pleasant 78-year-old male with past medical history significant for chronic kidney disease stage IV, diabetes mellitus type 2, hypertension, coronary artery disease, heart failure preserved EF (echo from 08/27/2023 showed EF 50 to 55%, stage III diastolic dysfunction, biatrial enlargement, moderate mitral valve insufficiency, moderate pulmonary artery hypertension), CardioMEMS device placement February 2021, pulmonary hypertension, KIMBERLY and hyperlipidemia who presented to the emergency room yesterday under the direction of his PCP for abnormal labs, elevated INR and sodium of 122. To note, prior to this hospitalization patient has had 2 hospital admissions, first admission between 08/25 to 08/28/2023 with acute hypoxic respiratory failure attributed to heart failure exacerbation. And second admission for acute hypoxic respiratory failure secondary to acute exacerbation of diastolic, right-sided heart failure with flash pulmonary edema. With diuresis volume status improved, renal function remained stable and patient did not need any VENEER SAMPLE MAKER during either of the last 2 hospitalizations. Patient was on steroids and discharged to home on prednisone 60 mg daily. He is following with rheumatology, Dr. Conner (KAILA positive, rheumatoid factor positive, CCP antibodies pending, double-stranded DNA borderline, anti-SSB antibody borderline, ANCA antibody negative), unclear autoimmune diagnosis. Prednisone has now been weaned down to 50 mg daily. -Last admission Lasix was stopped and patient was discharged home on Bumex 1 mg twice daily and metolazone twice a week. He was seen by cardiology last week metolazone was decreased to weekly. - For this admission, nephrology consulted as patient has history of CKD stage 4/ recurrent hypervolemia. Baseline serum creatinine has been ranging around 2.3 to 2.5 mg/dL prior to these past few hospitalizations. On presentation to the emergency room BUN was 136, creatinine 3.05 and sodium 122. At time of hospital admission diuretics put on hold. Today BUN improved 106, creatinine improved 2.54, patient is off diuretics. Sodium is 127. We are likely seeing fluctuations in renal function secondary to cardiorenal syndrome physiology. Discussed with patient and daughter given recurrent hypervolemia, mild uremia, recommending starting renal replacement therapy via tunneled HD catheter which will assist with volume control. Hemodialysis quite possibly will be on short-term basis. We will monitor volume status and renal function closely at outpatient kidney center with hopes to stop dialysis once volume status has improved. Once better improvement in volume status may see more true renal function/GFR. Appreciate surgery consultation for tunneled hemodialysis catheter placement. INR elevated on admission at 3.5--> today 2.3, patient has received phytonadione. Coumadin has been on hold. INR improved to 2.3 today however no plans for tunneled hemodialysis catheter placement today, possibly plan for tomorrow. There is no emergent indication to start hemodialysis today. Replace potassium. We will restart Bumex. Capacity Legal Chemist [employer] Reflex Medical hold order details:: IF a medical hold is selected below, a suggested order for a MEDICAL HOLD will reflex upon signing the document. Next of kin: [place] law dictates a PRIORITY LIST for identifying legal decision-maker/legal next of kin in the following order (LNOK): 1st: The patient?s legal guardian, if any 2nd: The patient's spouse (if status is questionable, consult Risk Management) 3rd: The patient?s adult child(megha) (majority, if multiple children) 4th: The patient?s parents 5th: The patient?s adult siblings (majority, if multiple children siblings)
--- NOTE | 2023-09-16 11:26 | PCM.PN.HOSP ---
Subjective Subjective Doing well, no issues overnight. Renal function is slightly improving as is his BUN. No further nosebleeds overnight. Given a dose of vitamin K yesterday INR today is 2.3 will repeat dose of vitamin K and recheck INR Objective Data Objective Data Vital Signs: Vital Signs Temp Pulse Resp BP Pulse Ox O2 Del Method 97.9 F 67 18 128/66 H 96 Room Air 09/16/23 06:21 09/16/23 06:21 09/16/23 06:21 09/16/23 06:21 09/16/23 06:21 09/16/23 08:13 Oxygen Delivery Method Room Air Weight: 168 lb 13.985 oz Body Mass Index (BMI) 28.0 Intake & Output: Intake and Output for Last 24 Hours 09/15/23 09/16/23 09/17/23 03:59 03:59 03:59 Intake Total 550 / 550 720 / 720 Output Total 500 / 500 975 / 975 Balance 50 / 50 -255 / -255 Lab / Micro Data 09/16/23 06:40 09/16/23 06:40 Labs: Laboratory Results - last 24 hr 09/15/23 03:15: Diff Path Review Reviewed 09/15/23 11:37: POC Glucose 298 H 09/15/23 17:13: POC Glucose 267 H 09/15/23 21:30: POC Glucose 301 H 09/16/23 06:28: POC Glucose 254 H 09/16/23 06:40: WBC 21.6 H, RBC 4.07 L, Hgb 12.0 L, Hct 34.0 L, MCV 83.5, MCH 29.5, MCHC 35.3, RDW Std Deviation 39.8, RDW Coeff of Kiersten 13.1, Plt Count 236, MPV 13.0 H, Immature Gran % (Auto) 1.800 H, Neut % (Auto) 91.0 H, Lymph % (Auto) 2.1 L, [place] % (Auto) 5.0, Eos % (Auto) 0.0, Baso % (Auto) 0.1, Absolute Neuts (auto) 19.7 H, Absolute Lymphs (auto) 0.45 L, Nucleated RBC % 0, Differential Comment S, PT 25.6 H, INR 2.3, APTT 110.3 H*, Sodium 127 L, Potassium 3.1 L, Chloride 90 L, Carbon Dioxide 27.0, Anion Gap 10, BUN 106 H*, Creatinine 2.54 H, Estim Creat Clear Calc 22.16, Est GFR (MDRD) Af Amer 32 L, Est GFR (MDRD) Non-Af 26 L, BUN/Creatinine Ratio 41.7 H, Glucose 261 H, Hemoglobin A1c 7.2 H, Calcium 9.0, Hep Bs Antigen Non-Reactive Micro: Microbiology 09/14/23 16:17 Urine, Clean Catch Urine Culture - Preliminary Yeast Like Organism Physical Exam Narrative General: Alert, Oriented x3, Cooperative, No apparent distress HEENT: Atraumatic, PERRLA, EOMI, Normocephalic Oral: Moist Mucosa Neck: Supple, No JVD Lungs: Diminished, Normal air movement, No rhonchi, No wheeze, No rales Cardiovascular: Regular rate, Regular Rhythm, Normal S1, Normal S2, No murmurs Abdomen: Soft, Non Tender, Non-Distended, No Hepato-splenomegaly Extremities: No edema, Capillary Refill Less than 3 Seconds Skin: No rashes, No breakdown Musculoskeletal: No Tenderness to Palpation of Joints or Extremities Neurological: No focal neurological deficit, Motor Exam 5/5 strength throughout, Sensory exam intact to light touch and pain Psych/Mental Status: Normal Affect, Appropriate Assessment & Plan Assessment/Plan (1) Acute kidney injury superimposed on CKD: (2) Hyponatremia: (3) High anion gap metabolic acidosis: PLAN: Plan 1. CEE on CKD stage IV with hyponatremia with an anion gap metabolic acidosis with anemia of chronic disease ? He was given gentle hydration and nephrology was consulted ? Still like to proceed with a tunneled dialysis catheter and then dialysis given his uremia ? INR today is 2.3, will repeat a dose of vitamin K and recheck at noon, appreciate general surgery's assistance with tunneled dialysis catheter ? Sodium is 128 today, will continue to monitor ? Appreciate nephrology's assistance 2. Chronic diastolic CHF/A-fib/HTN ? Echo on 08/27/2023 with biatrial enlargement and moderate pulmonary artery hypertension with stage III diastolic dysfunction with an EF of 50 to 55% ? Blood pressure stable ? We will monitor make adjustments as necessary ? Can continue his home medications ? He does have a positive autoimmune workup and he needs to follow-up with rheumatology as an outpatient will start to wean the steroids ? INR 2.3 3. DM2 ? A1c in July was 6.2 ? Will hold his oral medications ? Continue with insulin and sliding scale insulin ? Accu-Cheks ACHS ? We will monitor make adjustments as necessary 4. Gout ? Stable?continue with allopurinol 5. BPH ? Stable ? Continue with finasteride DVT: Coumadin Capacity [employer] President Reflex Medical hold order details:: IF a medical hold is selected below, a suggested order for a MEDICAL HOLD will reflex upon signing the document. Next of kin: [place] law dictates a PRIORITY LIST for identifying legal decision-maker/legal next of kin in the following order (LNOK): 1st: The patient?s legal guardian, if any 2nd: The patient's spouse (if status is questionable, consult Risk Management) 3rd: The patient?s adult child(megha) (majority, if multiple children) 4th: The patient?s parents 5th: The patient?s adult siblings (majority, if multiple children siblings) Charges/Coding Visit Charges Inpatient E&M: 47334 Subs Hosp L2
[2023-09-16 11:54] LABS: Bedside Glucose 201 mg/dL (74-106)
[2023-09-16 12:11] LABS: International Normalized Ratio 1.9; Prothrombin Time (Protime)PT. 21.7 SECONDS (11.7-14.9)
[2023-09-16 12:20] VITALS: BP 127/77; PULSE 64; RESP 18; TEMP 36.4; O2SAT 98
--- NOTE | 2023-09-16 13:21 | CASEMGMT ---
[employer] portal is down per the [employer] IT member. [facility]
[2023-09-16 15:10] VITALS: BP 124/72; PULSE 65; RESP 18; TEMP 36.4; O2SAT 95
--- NOTE | 2023-09-16 15:14 | PCM.PN.SRG ---
Subjective Subjective Patient is an 78 y/o M I am following in conjunction with Dr. Grissom. Patient was evaluated sitting comfortably in bed. Nephrology would like a tunneled catheter placed. Patient's INR is elevated at 2.3. Patient denies any concerns or complaints at this time. Objective Data Objective Data Vital Signs: Vital Signs Temp Pulse Resp BP Pulse Ox O2 Del Method 97.6 F L 65 18 124/72 H 95 Room Air 09/16/23 15:10 09/16/23 15:10 09/16/23 15:10 09/16/23 15:10 09/16/23 15:10 09/16/23 15:12 Oxygen Delivery Method Room Air Weight: 168 lb 13.985 oz Body Mass Index (BMI) 28.0 Intake & Output: Intake and Output for Last 24 Hours 09/14/23 09/15/23 09/16/23 23:59 23:59 23:59 Intake Total 550 / 550 720 / 720 Output Total 1475 / 1475 Balance 550 / 50 -755 / -755 Lab / Micro Data 09/16/23 06:40 09/16/23 06:40 Labs: Laboratory Results - last 24 hr 09/15/23 17:13: POC Glucose 267 H 09/15/23 21:30: POC Glucose 301 H 09/16/23 06:28: POC Glucose 254 H 09/16/23 06:40: WBC 21.6 H, RBC 4.07 L, Hgb 12.0 L, Hct 34.0 L, MCV 83.5, MCH 29.5, MCHC 35.3, RDW Std Deviation 39.8, RDW Coeff of Kiersten 13.1, Plt Count 236, MPV 13.0 H, Immature Gran % (Auto) 1.800 H, Neut % (Auto) 91.0 H, Lymph % (Auto) 2.1 L, [place] % (Auto) 5.0, Eos % (Auto) 0.0, Baso % (Auto) 0.1, Absolute Neuts (auto) 19.7 H, Absolute Lymphs (auto) 0.45 L, Nucleated RBC % 0, Differential Comment S, PT 25.6 H, INR 2.3, APTT 110.3 H*, Sodium 127 L, Potassium 3.1 L, Chloride 90 L, Carbon Dioxide 27.0, Anion Gap 10, BUN 106 H*, Creatinine 2.54 H, Estim Creat Clear Calc 22.16, Est GFR (MDRD) Af Amer 32 L, Est GFR (MDRD) Non-Af 26 L, BUN/Creatinine Ratio 41.7 H, Glucose 261 H, Hemoglobin A1c 7.2 H, Calcium 9.0, Hep Bs Antigen Non-Reactive 09/16/23 11:36: POC Glucose 201 H 09/16/23 11:45: PT 21.7 H, INR 1.9 Micro: Microbiology 09/14/23 16:17 Urine, Clean Catch Urine Culture - Final Yeast, not Manisha albicans Physical Exam Const alert, oriented x3 and no apparent distress Neck full ROM Resp normal respiratory effort and clear to auscultation bilaterally Cardio regular rate and regular rhythm Assessment & Plan Assessment/Plan (1) Acute kidney injury superimposed on CKD: PLAN: I have seen this patient in conjunction with Dr. Grissom. We have discussed and reviewed labs on this patient with nephrology and they would like to proceed with a tunneled dialysis catheter. Patient's INR remains too elevated to proceed with surgery at 2.3. Patient's INR ideally should be 1.5 to proceed. Plan to proceed with tunneled dialysis catheter possibly tomorrow. Capacity [employer] Associate Reflex Medical hold order details:: IF a medical hold is selected below, a suggested order for a MEDICAL HOLD will reflex upon signing the document. Next of kin: [place] law dictates a PRIORITY LIST for identifying legal decision-maker/legal next of kin in the following order (LNOK): 1st: The patient?s legal guardian, if any 2nd: The patient's spouse (if status is questionable, consult Risk Management) 3rd: The patient?s adult child(megha) (majority, if multiple children) 4th: The patient?s parents 5th: The patient?s adult siblings (majority, if multiple children siblings) Charges/Coding Visit Charges Inpatient E&M: 82313 Subs Hosp L1
[2023-09-16] MEDS: predniSONE 20 MG Tablet 50 MG PO (15:18)
[2023-09-16] MEDS: Finasteride 5 MG Tablet PO (15:19)
[2023-09-16] MEDS: Potassium Chloride Oral Tablet 20 MEQ 40 MEQ PO (15:19)
[2023-09-16] MEDS: Bumetanide 0.5 MG Tablet 1 MG PO ×2 (15:20→16:44)
[2023-09-16] MEDS: Allopurinol 100 MG Tablet 200 MG PO (15:20)
[2023-09-16] MEDS: Cyanocobalamin 500 MCG Tablet 1000 MCG PO (15:21)
[2023-09-16 16:01] LABS: Bedside Glucose 182 mg/dL (74-106)
[2023-09-16] MEDS: Polyethylene Glycol 3350 17 GM PACKET PO (16:41)
[2023-09-16] MEDS: Insulin Lispro 100 UNIT/ML INSULN.PEN SC (16:44)
[2023-09-16] MEDS: Gabapentin 100 MG Capsule PO (19:54)
[2023-09-16 21:00] VITALS: BMI 28.0
[2023-09-16 21:10] VITALS: BP 125/66; PULSE 62; RESP 18; TEMP 35.8; O2SAT 97
[2023-09-17] VITALS (13 sets, daily range): BP systolic 86–157; BP diastolic 65–89; PULSE 54–68; RESP 14–18; TEMP 36.1–36.7; O2SAT 96–100; BMI 28.0
[2023-09-17 04:36] LABS: Absolute Lymphocyte Count 0.37 X10^3/uL (0.83-4.51); Absolute Neutrophil Count 16.1 X10^3/uL (2.0-7.7); Basophil# 0.04 X10^3/uL; Basophil% 0.2 % (0-1); Hematocrit 32.7 % (40-54); Hemoglobin 11.4 g/dL (13.0-16.5); Lymphocyte # 0.37 X10^3/ul (0.83-4.51); Lymphocyte % 2.1 % (19-41); Mean Corp Hgb Conc 34.9 g/dL (32-36); Mean Corpuscular Hgb 29.3 pg (27.0-32.0); Mean Corpuscular Volume 84.1 fL (80-94); Mean Platelet Vol. 12.9 fl (6.2-12.0); Monocyte# 0.79 X10^3/uL; Monocyte% 4.5 % (0-10); NRBC Flagged by Analyzer 0 % (0-5); Neutrophil # 16.12 X10^3/uL (2.7-7.7); Neutrophil % 91.5 % (47-70); POSITIVE DIFFERENTIAL YES; Platelet Count 216 K/mm3 (150-450); RBC Distribution Width CV 13.1 % (11.6-14.6); RBC Distribution Width SD 40.1 fl (35.1-43.9); Red Blood Count 3.89 M/mm3 (4.6-6.2); White Blood Count 17.6 K/mm3 (4.4-11.0)
[2023-09-17 04:40] LABS: Differential Indicated SCAN CRITERIA MET
[2023-09-17 04:43] LABS: International Normalized Ratio 1.3; Prothrombin Time (Protime)PT. 16.2 SECONDS (11.7-14.9)
[2023-09-17 04:52] LABS: Anion Gap 10 (5-15); BUN 92 mg/dL (7-18); BUN/Creat Ratio 38.2 RATIO (10-20); Calcium,Total 8.4 mg/dL (8.5-10.1); Chloride 91 mmol/L (98-107); Creatinine, Serum 2.41 mg/dL (0.70-1.30); EST Glomerular Filtration Rate 28 mL/min (>60); Est Glom Filt Rate - Afr Amer 34 mL/min (>60); Estimated Creatinine Clearance 23.35 ml/min; Glucose 296 mg/dL (74-106); Potassium 3.5 mmol/L (3.5-5.1); Sodium Level 129 mmol/L (136-145)
--- NOTE | 2023-09-17 05:00 | EKG12_ITS ---
Test Reason : PRE-OP Blood Pressure : / mmHG Vent. Rate : 061 BPM Atrial Rate : 000 BPM P-R Int : 000 ms QRS Dur : 172 ms QT Int : 494 ms P-R-T Axes : 000 001 164 degrees QTc Int : 497 ms Normal sinus rhythm Left bundle branch block Abnormal ECG When compared with ECG of 16-SEP-2023 05:51, MANUAL COMPARISON REQUIRED, DATA IS UNCONFIRMED Confirmed by ZANE STONER, FUENTES ([id number]), editor house organ VIOLETA VILLALBA ([id number]) on 09/18/2023 10:40:09 AM Referred By: LUNA Confirmed By:FUENTES DEGROOT MD
[2023-09-17 06:47] LABS: Bedside Glucose 256 mg/dL (74-106)
--- NOTE | 2023-09-17 10:50 | PN.HOSP_ITS ---
Subjective Subjective No issues overnight, doing well Objective Data Objective Data Vital Signs: Vital Signs Temp Pulse Resp BP Pulse Ox O2 Del Method 97.1 F L 60 16 140/79 H 97 Room Air 09/17/23 04:30 09/17/23 04:30 09/17/23 04:30 09/17/23 04:30 09/17/23 04:30 09/17/23 08:12 Oxygen Delivery Method Room Air Weight: 168 lb 13.985 oz Body Mass Index (BMI) 28.0 Intake & Output: Intake and Output for Last 24 Hours 09/16/23 09/17/23 09/18/23 03:59 03:59 03:59 Intake Total 720 / 720 480 / 480 Output Total 975 / 975 Balance -255 / -255 480 / 480 Lab / Micro Data 09/17/23 04:22 09/17/23 04:22 Labs: Laboratory Results - last 24 hr 09/16/23 11:36: POC Glucose 201 H 09/16/23 11:45: PT 21.7 H, INR 1.9 09/16/23 15:38: POC Glucose 182 H 09/17/23 04:22: WBC 17.6 H, RBC 3.89 L, Hgb 11.4 L, Hct 32.7 L, MCV 84.1, MCH 29.3, MCHC 34.9, RDW Std Deviation 40.1, RDW Coeff of Kiersten 13.1, Plt Count 216, MPV 12.9 H, Immature Gran % (Auto) 1.700 H, Neut % (Auto) 91.5 H, Lymph % (Auto) 2.1 L, [place] % (Auto) 4.5, Eos % (Auto) 0.0, Baso % (Auto) 0.2, Absolute Neuts (auto) 16.1 H, Absolute Lymphs (auto) 0.37 L, Nucleated RBC % 0, PT 16.2 H, INR 1.3, Sodium 129 L, Potassium 3.5, Chloride 91 L, Carbon Dioxide 28.0, Anion Gap 10, BUN 92 H, Creatinine 2.41 H, Estim Creat Clear Calc 23.35, Est GFR (MDRD) Af Amer 34 L, Est GFR (MDRD) Non-Af 28 L, BUN/Creatinine Ratio 38.2 H, Glucose 296 H, Calcium 8.4 L 09/17/23 06:29: POC Glucose 256 H Micro: Microbiology 09/14/23 16:17 Urine, Clean Catch Urine Culture - Final Yeast, not Manisha albicans Physical Exam Narrative General: Alert, Oriented x3, Cooperative, No apparent distress HEENT: Atraumatic, PERRLA, EOMI, Normocephalic Oral: Moist Mucosa Neck: Supple, No JVD Lungs: Diminished, Normal air movement, No rhonchi, No wheeze, No rales Cardiovascular: Regular rate, Regular Rhythm, Normal S1, Normal S2, No murmurs Abdomen: Soft, Non Tender, Non-Distended, No Hepato-splenomegaly Extremities: No edema, Capillary Refill Less than 3 Seconds Skin: No rashes, No breakdown Musculoskeletal: No Tenderness to Palpation of Joints or Extremities Neurological: No focal neurological deficit, Motor Exam 5/5 strength throughout, Sensory exam intact to light touch and pain Psych/Mental Status: Normal Affect, Appropriate Assessment & Plan Assessment/Plan (1) Acute kidney injury superimposed on CKD: (2) Hyponatremia: (3) High anion gap metabolic acidosis: PLAN: Plan 1. CEE on CKD stage IV with hyponatremia with an anion gap metabolic acidosis with anemia of chronic disease ? He was given gentle hydration and nephrology was consulted ? Still like to proceed with a tunneled dialysis catheter and then dialysis given his uremia ? INR is 1.3 today, okay to proceed for tunneled dialysis catheter ? Sodium is 129 today, will continue to monitor ? Appreciate nephrology's assistance 2. Chronic diastolic CHF/A-fib/HTN ? Echo on 08/27/2023 with biatrial enlargement and moderate pulmonary artery hyp ertension with stage III diastolic dysfunction with an EF of 50 to 55% ? Blood pressure stable ? We will monitor make adjustments as necessary ? Can continue his home medications ? He does have a positive autoimmune workup and he needs to follow-up with rheumatology as an outpatient will start to wean the steroids ? INR 1.3 3. DM2 ? A1c in July was 6.2 ? Will hold his oral medications ? Continue with insulin and sliding scale insulin ? Accu-Cheks ACHS ? We will monitor make adjustments as necessary 4. Gout ? Stable ? Continue with allopurinol 5. BPH ? Stable ? Continue with finasteride DVT: Coumadin, can restart when dialysis catheter is completed Capacity Legal [employer] Operator Reflex Medical hold order details:: IF a medical hold is selected below, a suggested order for a MEDICAL HOLD will reflex upon signing the document. Next of kin: [place] law dictates a PRIORITY LIST for identifying legal decision-maker/legal next of kin in the following order (LNOK): 1st: The patient?s legal guardian, if any 2nd: The patient's spouse (if status is questionable, consult Risk Management) 3rd: The patient?s adult child(megha) (majority, if multiple children) 4th: The patient?s parents 5th: The patient?s adult siblings (majority, if multiple children siblings) Charges/Coding Visit Charges Inpatient E&M: 38711 Subs Hosp L2
[2023-09-17] MEDS: 0.9% Normal Saline (1000mL) 1,000 ML 15 ML IV (10:55)
[2023-09-17] MEDS: Cefazolin 2 GM in 0.9% Normal Saline (100mL Bag) 100 ML IV (11:43)
[2023-09-17] MEDS: Bupivacaine Mpf 0.5% 30 ML VIAL (12:30)
[2023-09-17] MEDS: Heparin 10,000 UNITS/10 ML Vial 10000 UNITS (12:36)
--- NOTE | 2023-09-17 12:45 | OP.PCM_ITS ---
Report of Operation Date of Procedure: 09/17/23 Pre-Operative Diagnosis: Acute kidney injury superimposed on chronic kidney dis ease Post-Operative Diagnosis: Same Surgery/Procedure Performed:: Tunneled hemodialysis catheter insertion via the right internal jugular vein Surgeon: Ellis Grissom Type of Anesthesia: MAC/Supplemental/Local Anesthesiologist: Ramirez Forte Estimated Blood Loss (mL): 10 Description of Procedure: After appropriate identification in the preoperative holding area the patient was brought to the operating room where they were positioned supine on the operating room table. Preoperative antibiotics were completely administered. Sedation was begun per anesthesia and the patient's right neck was prepped and draped in usual sterile fashion after confirming patency of the right internal jugular vein with bedside ultrasound. Formal timeout was conducted to confirm both the patient and the procedure. Procedure was begun with ultrasound-guided access of the right internal jugular vein using a micropuncture access kit. Fluoroscopy confirmed appropriate position of the wire and the micro access sheath. At this point I made a measurement from the insertion site to the mid atrium of approximately 16 cm. Desiring some room for the patient's tunneling/cuff placement, elected to proceed with a 19 cm catheter. The 035 guidewire from the catheter kit was placed through the micro access sheath and again fluoroscopy was used to confirm this placement. The insertion site was then enlarged sharply and bluntly. Measuring back from the proximal insertion site on the catheter, we determined that the tunneling site would need to be at least 5 cm away from the insertion site. Therefore this was measured out on the patient's chest and a counterincision was made at this point after instilling local anesthetic. A gentle curve of the tunneling tract to the insertion site was also instilled with local anesthetic. Then the catheter was connected to the tunneling device and was tunneled to the insertion site. I again measured the distance to the atrium and pulled back additional catheter. Next the insertion site was serially dilated and the peel-away sheath was placed under fluoroscopy. The catheter was fed through the peel-away sheath and once we neared completion another fluoroscopy image was obtained. Unfortunately this showed kinking of the catheter at the neck insertion site and I was unable to either aspirate or flush with the catheter. Therefore I briefly attempted to reorient the catheter through the minute neck incision but ultimately replaced the 035 Glidewire?this time through patient's catheter lumen and under fluoroscopy was able to advance the wire beyond the kinking. In doing so we also visualize the catheter unkinking and after withdrawing the 035 Glidewire I was now able to easily aspirate and flush on both ports using injectable saline. The insertion site was then closed with a single interrupted 3-0 nylon stitch. Another 3-0 nylon stitch was used to close down the insertion site at the tunneling entrance as a means of creating a cerclage. Lastly, the catheter was secured at the tiedown points on each port with a interrupted 3-0 nylon. Now the catheter was locked with 2 mL heparinized saline (concentration 1000 units/mL) per package specification. A small OpSite was applied to the insertion site and a chlorhexidine gel dressing was placed about the catheter. Patient was then allowed to emerge from sedation and was taken to PACU in stable condition. A chest x-ray was ordered in PACU for review of the catheter placement and to exclude pneumothorax. Grafts/Implants Used: Palindrome 14.5F Dual Lumen Catheter, REF [id number], LOT [id number] Complications None Procedures Cardiovascular CF Procedures [id number]: [id number] Insert tunneled cv cath
--- NOTE | 2023-09-17 13:12 | RAD_ITS ---
STUDY: X-RAY CHEST REASON FOR EXAM: Male, 78 years old. catheter insertion TECHNIQUE: Single AP portable view of the chest. COMPARISON: September 14, 2023 FINDINGS: 1. Newly placed right IJ catheter terminating just above the right atrium 2. No pneumothorax or pleural effusion 3. Chronic interstitial prominence and scarring of both lungs. No focal consolidation is present 4. No change in mild to moderate cardiomegaly. Stable CABG clips 5. Stable mediastinum and osseous structures There is no demonstrated abnormality of the visualized soft tissue structures of the upper abdomen. RAD/Chest 1 View (Portable) IMPRESSION: New right IJ catheter Electronically Signed: Thomas Rodrigez MD at 13:37 EST ,
[2023-09-17] MEDS: 0.9% Normal Saline 1,000 ML IV.SOLN. 1000 ML OPERA.SITE (13:58)
[2023-09-17] MEDS: PureFlow B 3K Dialysis Soln 1 BAG 6 BAG PF (13:59)
--- NOTE | 2023-09-17 15:24 | CASEMGMT ---
Addendum entered by Nargis Choudhary 09/17/23 15:41: Tunneled cath documentation faxed to [facility] at this time. Per Reina, ALEENA PONCE, Hep B results have already been faxed to them Original Note: ALEENA PONCE NOTE; Per Sharifa @ [facility] intake, pt has been medically and financially cleared. Per Ashly @ [facility], chair time is MWF @ 12:25 and they could take pt as early as tomorrow. Pt to arrive tomorrow @ 11:45 AM to complete paperwork tomorrow. Pt can then arrive @ 12:05 PM for chair time of 12:25 for ongoing appts on MWF. Tunneled HD catheter has been inserted and pt receiving HD in his room at this time. Per Dr Loomis, pt is medically ready for discharge and per Nunu/nephrology, pt could discharge this PM after HD completed, as long as everything goes well and next OP HD to be tomorrow @ [facility]. ALEENA PONCE to room and he was made aware of above. He states he is not feeling well enough to discharge today/this evening. Dr Loomis made aware and will plan to discharge pt home tomorrow in AM and pt can go to [facility] OP HD @ 11:45 AM. Pt made aware. He requested to have HD done in the hospital tomorrow before discharging. ALEENA PONCE informed him that the dialysis can be done as an OP tomorrow after he discharges and that he does not need to stay in the hospital to have this done, as there is a chair time available. Meghan ALVARADO RN, CM
[2023-09-17] MEDS: Bumetanide 0.5 MG Tablet 1 MG PO (16:15)
[2023-09-17] MEDS: Allopurinol 100 MG Tablet 200 MG PO (16:16)
[2023-09-17] MEDS: Cyanocobalamin 500 MCG Tablet 1000 MCG PO (16:16)
[2023-09-17] MEDS: predniSONE 20 MG Tablet 50 MG PO (16:16)
[2023-09-17] MEDS: Pantoprazole Sodium 40 MG Tablet PO (16:16)
[2023-09-17] MEDS: Finasteride 5 MG Tablet PO (16:17)
[2023-09-17] MEDS: amLODIPine 5 MG Tablet PO (16:17)
[2023-09-17] MEDS: Carvedilol 6.25 MG Tablet PO (16:17)
[2023-09-17 16:31] LABS: Bedside Glucose 131 mg/dL (74-106)
[2023-09-17] MEDS: 0.9% Saline Lock 10 ML Syringe IV ×2 (16:35→18:39)
[2023-09-17] MEDS: Heparin 10,000 UNITS/10 ML Vial IV (16:35)
[2023-09-17] MEDS: Senna/Docusate Sodium 1 Tablet 2 TABLET PO (18:39)
[2023-09-17] MEDS: Gabapentin 100 MG Capsule PO (20:16)
[2023-09-17 21:25] LABS: Bedside Glucose 355 mg/dL (74-106)
[2023-09-17] MEDS: Insulin Lispro 100 UNIT/ML INSULN.PEN SC (21:40)
[2023-09-18 04:45] VITALS: BP 122/67; PULSE 55; RESP 14; TEMP 36.6; O2SAT 97
[2023-09-18 06:55] LABS: Bedside Glucose 293 mg/dL (74-106)
[2023-09-18 07:28] LABS: Absolute Lymphocyte Count 0.37 X10^3/uL (0.83-4.51); Basophil# 0.02 X10^3/uL; Basophil% 0.1 % (0-1); Hematocrit 32.1 % (40-54); Hemoglobin 10.9 g/dL (13.0-16.5); Lymphocyte # 0.37 X10^3/ul (0.83-4.51); Mean Corpuscular Hgb 29.3 pg (27.0-32.0); Mean Corpuscular Volume 86.3 fL (80-94); Mean Platelet Vol. 12.7 fl (6.2-12.0); Monocyte# 0.99 X10^3/uL; Monocyte% 5.3 % (0-10); NRBC Flagged by Analyzer 0 % (0-5); Neutrophil # 17.01 X10^3/uL (2.7-7.7); POSITIVE DIFFERENTIAL YES; Platelet Count 189 K/mm3 (150-450); RBC Distribution Width CV 13.2 % (11.6-14.6); RBC Distribution Width SD 41.3 fl (35.1-43.9); Red Blood Count 3.72 M/mm3 (4.6-6.2); White Blood Count 18.7 K/mm3 (4.4-11.0)
[2023-09-18 07:33] LABS: Differential Indicated SCAN CRITERIA MET
[2023-09-18 07:45] LABS: Anion Gap 6 (5-15); BUN 60 mg/dL (7-18); BUN/Creat Ratio 27.4 RATIO (10-20); Calcium,Total 8.9 mg/dL (8.5-10.1); Chloride 97 mmol/L (98-107); Creatinine, Serum 2.19 mg/dL (0.70-1.30); EST Glomerular Filtration Rate 31 mL/min (>60); Est Glom Filt Rate - Afr Amer 37 mL/min (>60); Glucose 297 mg/dL (74-106); Sodium Level 130 mmol/L (136-145)
[2023-09-18 07:50] LABS: Differential Comment SCANNED
[2023-09-18 08:31] LABS: International Normalized Ratio 1.2; Prothrombin Time (Protime)PT. 15.1 SECONDS (11.7-14.9)
[2023-09-18 09:09] VITALS: BP 133/70; PULSE 73; RESP 16; TEMP 36.3; O2SAT 95
[2023-09-18] MEDS: Carvedilol 6.25 MG Tablet PO (09:23)
[2023-09-18] MEDS: Pantoprazole Sodium 40 MG Tablet PO (09:23)
[2023-09-18] MEDS: Bumetanide 0.5 MG Tablet 1 MG PO (09:23)
[2023-09-18] MEDS: predniSONE 20 MG Tablet 50 MG PO (09:23)
[2023-09-18] MEDS: amLODIPine 5 MG Tablet PO (09:23)
[2023-09-18] MEDS: Cyanocobalamin 500 MCG Tablet 1000 MCG PO (09:27)
[2023-09-18] MEDS: Insulin Glargine-YFGN 100 UNIT/ML Pen 15 UNIT SC (09:31)
[2023-09-18] MEDS: Insulin Lispro 100 UNIT/ML INSULN.PEN SC (09:31)
--- NOTE | 2023-09-18 09:56 | DCINST_ITS ---
Discharge Instructions Diet Discharge Diet: Low fat / Low cholesterol and Carb Control Diet Activity Discharge Activity: Return to Normal Activity Dressing / Incision Call your doctor if you observe: Fever of 101 or Higher, Shortness of breath, Dizziness, Fainting spells, Swelling in the ankles, Chest pain and Increased palpitations (irregular heartbeat) Follow Up Care Test Results: Test results from this visit will be discussed in further detail at your follow- up appointment, if applicable. Discharge Plan Admission Admit Date/Time: 09/14/23 18:34 Attending Provider: Titi Loomis Primary Care Provider: Howard Escobar Consulting Providers: Raulito Barahona; Jolene Valentine; Ellis Grissom Instructions Additional Instructions / Restrictions: Please cut your 20 mg prednisone tablets in half so each 1 is 10 mg and take 5 daily for a week then take 4 daily for a week then take 3 daily for a week then take 2 daily for a week and then take 1 daily for a week. Follow-up with your PCP in 3 to 5 days as well as rheumatology as an outpatient to adjust steroids if necessary. Discharge Orders/Prescriptions Prescriptions: Continued finasteride 5 mg tablet 5 mg PO DAILY Patient Comments: TAKE 1 TABLET BY MOUTH ONCE DAILY cyanocobalamin (vitamin B-12) [Vitamin B-12] 1,000 mcg tablet 1,000 mcg PO DAILY metolazone 2.5 mg tablet 2.5 mg PO .Thursday Qty: 8 1RF warfarin 2.5 mg tablet See Rx Instructions PO .COMPLEX Rx Instructions: 5mg once daily po every thu; Managed by PCP 2.5 mg daily po every thu dapagliflozin propanediol [Farxiga] 10 mg tablet 10 mg PO DAILY gabapentin 100 mg capsule 100 mg PO QHS Rx Instructions: take 1-2 100mg capsules at bedtime daily; pantoprazole 40 mg tablet,delayed release (DR/EC) 40 mg PO DAILY prednisone 20 mg Tablet 60 mg PO BREAKFAST Qty: 63 0RF insulin glargine-yfgn 100 unit/mL (3 mL) Insulin Pen 10 unit subcut DAILY Qty: 15 0RF bumetanide 0.5 mg Tablet 1 mg PO BID Qty: 120 0RF Rx Instructions: Start on 09/04/2023 allopurinol 100 mg Tablet 200 mg PO DAILYCM Qty: 30 0RF (DME) pen needle, diabetic 33 gauge x 3/16 needle See Rx Instructions .Route Qty: 100 0RF Rx Instructions: As directed carvedilol 6.25 mg tablet 6.25 mg PO BID Qty: 60 11RF Rx Instructions: must administer with a meal/food amlodipine 5 mg tablet 5 mg PO DAILY Qty: 90 3RF potassium chloride 20 mEq tablet extended release 20 meq PO .COMPLEX Rx Instructions: 20 mEq orally once a week on with Metolazone; Referrals / Follow Up: Howard Escobar DO [Primary Care Provider] - Within 1 Week Disposition Disposition (needs filled in before D/C Order can be placed): Home, Self Care
--- NOTE | 2023-09-18 10:22 | CASEMGMT ---
Patient has order for discharge. RN CM in to discuss needs at discharge. Patient denies needs or help at discharge. Patient had no further questions or concerns at this time.
[2023-09-18] MEDS: Finasteride 5 MG Tablet PO (10:42)
[2023-09-18] MEDS: Senna/Docusate Sodium 1 Tablet 2 TABLET PO (10:42)
[2023-09-18] MEDS: Allopurinol 100 MG Tablet 200 MG PO (10:42)
--- NOTE | 2023-09-18 11:31 | PN.SURG_ITS ---
Subjective Subjective Patient seen and examined during AM rounds. He is found doing well but complains of some constipation. He states that his peripheral IV site is more tender than his new central line in his right neck. Objective Data Objective Data Vital Signs: Vital Signs Temp Pulse Resp BP Pulse Ox O2 Del Method 97.3 F L 73 16 133/70 H 95 Room Air 09/18/23 09:09 09/18/23 09:09 09/18/23 09:09 09/18/23 09:09 09/18/23 09:09 09/18/23 09:09 Oxygen Delivery Method Room Air Weight: 168 lb 13.985 oz Body Mass Index (BMI) 28.0 Intake & Output: Intake and Output for Last 24 Hours 09/16/23 09/17/23 09/18/23 23:59 23:59 23:59 Intake Total 240 / 480 675 / 915 480 / 480 Output Total 540 / 540 Balance 240 / 480 135 / 375 479 / 479 Lab / Micro Data 09/18/23 07:05 09/18/23 07:05 Labs: Laboratory Results - last 24 hr 09/17/23 16:13: POC Glucose 131 H 09/17/23 21:06: POC Glucose 355 H 09/18/23 06:31: POC Glucose 293 H 09/18/23 07:05: WBC 18.7 H, RBC 3.72 L, Hgb 10.9 L, Hct 32.1 L, MCV 86.3, MCH 29.3, MCHC 34.0, RDW Std Deviation 41.3, RDW Coeff of Kiersten 13.2, Plt Count 189, MPV 12.7 H, Immature Gran % (Auto) 1.600 H, Neut % (Auto) 91.0 H, Lymph % (Auto) 2.0 L, [place] % (Auto) 5.3, Eos % (Auto) 0.0, Baso % (Auto) 0.1, Absolute Neuts (auto) 17.0 H, Absolute Lymphs (auto) 0.37 L, Nucleated RBC % 0, Differential Comment SCANNED, PT 15.1 H, INR 1.2, Sodium 130 L, Potassium 4.0, Chloride 97 L, Carbon Dioxide 27.0, Anion Gap 6, BUN 60 H, Creatinine 2.19 H, Estim Creat Clear Calc 25.70, Est GFR (MDRD) Af Amer 37 L, Est GFR (MDRD) Non-Af 31 L, BUN/Creatinine Ratio 27.4 H, Glucose 297 H, Calcium 8.9 Micro: Microbiology 09/14/23 16:17 Urine, Clean Catch Urine Culture - Final Yeast, not Manisha albicans Radiography Diagnostic Testing: Radiology Impression Chest X-Ray 09/17/23 13:12 IMPRESSION: New right IJ catheter Electronically Signed: Thomas Rodrigez MD at 13:37 EST Reading Location ID and State: [facility] / [place] , Service support , Physical Exam Const oriented x3 and no apparent distress Neck Neck Narrative: Stable right neck catheter insertion site with slight oozing right against the CHG gel, otherwise unremarkable and catheter appears in place. There does not appear to be under any underlying hematoma. Assessment & Plan Assessment/Plan (1) Acute kidney injury superimposed on CKD: (2) Chronic kidney disease, stage 4 (severe): PLAN: Plan This is an 78-year-old male with a history of chronic kidney disease and now with superimposed acute kidney injury who is postoperative day 1 from right tunneled hemodialysis catheter insertion. Catheter appears stable this morning and functioned well for patient's first dialysis last evening. He is awaiting dialysis today. He does report some constipation so I have recommended initiation of a bowel regimen to primary team. Otherwise, surgery will sign off at this point. Thank you for the opportunity to participate in Mr. Osman's care. Charges/Coding Visit Charges Inpatient E&M: 29591 Subs Hosp L2
--- NOTE | 2023-09-18 12:56 | PCM.DC.SUM ---
Providers Date of Admission: 09/14/23 Primary Care Physician: Dr. Howard Escobar, Consultations 09/14/23 19:06 Consult: Equipment Superintendent / Pulmonary Medicine Routine Consulting Provider: Intensivists/Pulmonary Med Reason for Consult: Pulm HTN EMERGENT Consult: No MD Notified: Yes Date Notified: 09/14/23 Time Notified: 18:37 Method of Notification: Verbal Consult: Nephrology Routine Consulting Provider: Raulito Barahona Reason for Consult: Uremia EMERGENT Consult: No MD Notified: Yes Date Notified: 09/14/23 Time Notified: 18:37 Method of Notification: Verbal 09/15/23 12:33 Consult: General Surgery Routine Consulting Provider: Ellis Grissom Reason for Consult: tunneled HD catheter EMERGENT Consult: No Notified: Yes Date Notified: 09/15/23 Time Notified: 12:33 Method of Notification: Answering Service Reason For Visit: UREMIA Diagnosis Discharge Diagnosis (1) Acute kidney injury superimposed on CKD: Status: Chronic Code(s): N17.9 - Acute kidney failure, unspecified; N18.9 - Chronic kidney disease, unspecified (2) Hyponatremia: Status: Acute Code(s): E87.1 - Hypo-osmolality and hyponatremia (3) High anion gap metabolic acidosis: Status: Acute Code(s): E87.29 - Other acidosis Medications at Discharge Home Medications finasteride 5 mg tablet 5 mg PO DAILY prostate 12/19/20 warfarin 2.5 mg tablet See Rx Instructions PO .COMPLEX blood thinner 03/11/21 cyanocobalamin (vitamin B-12) 1,000 mcg tablet (Vitamin B-12) 1,000 mcg PO DAILY supplement 06/26/22 carvedilol 6.25 mg tablet 6.25 mg PO BID #60 tabs 05/13/23 amlodipine 5 mg tablet 5 mg PO DAILY #90 tabs 07/07/23 dapagliflozin propanediol 10 mg tablet (Farxiga) 10 mg PO DAILY diabetes 08/29/23 gabapentin 100 mg capsule 100 mg PO QHS unsure 08/29/23 pantoprazole 40 mg tablet,delayed release 40 mg PO DAILY prevent stomach ulcers 08/29/23 allopurinol 100 mg tablet 200 mg (2 x 100 mg) PO DAILYCM #30 tabs 09/03/23 bumetanide 0.5 mg tablet 1 mg (2 x 0.5 mg) PO BID #120 tabs 09/03/23 insulin glargine-yfgn 100 unit/mL (3 mL) subcutaneous pen 10 unit (0.1 mL) subcut DAILY #15 mL 09/03/23 pen needle, diabetic 33 gauge x 3/16 #100 ea 09/03/23 prednisone 20 mg tablet 60 mg (3 x 20 mg) PO BREAKFAST #63 tabs 09/03/23 metolazone 2.5 mg tablet 2.5 mg PO .Thursday #8 tabs 09/09/23 potassium chloride 20 mEq tablet,extended release 20 meq PO .COMPLEX 09/09/23 Hospital Course Operations None Procedures - (Tunneled dialysis catheter) Summary of Care Provided Minutes Spent on Discharge: 32 Hospital Course: Per HPI: ANTWAN OSMAN, is a 78 M who presented to the emergency department at [facility] on 09/14/2023 for abnormal labs. Patient had a recent admission here and was discharged on 09/03/2023. During that hospitalization he was found to have significant pulmonary hypertension and severe diastolic dysfunction. At that time he was discharged on Bumex 1 mg p.o. twice daily and metolazone 2.5 mg p.o. twice weekly. Patient states his weight has been stable and his edema is excellent however he was complaining of weakness and labs were drawn by his hyperbaric technician. They were looked up by his primary care physician and he was told they were markedly abnormal and asked to come to the emergency department. Patient complains of diffuse weakness that has been present for the last several days. He indicates he has been urinating well and has not had any bleeding. He indicated he was told his hemoglobin was very low however on review of his labs his hemoglobin is stable at 12.5 on admission. He states he still gets exertional dyspnea but again indicates his swelling has been overall very good but his fatigue has been worsening. On presentation his temperature was 96.3, heart rate 68, blood pressure 130/68, respiratory rate was 18 and oxygen saturations were 98% on room air. CBC showed a leukocytosis of 26.1, hemoglobin of 12.6 and a normal platelet count. The patient has been on steroids at 60 mg daily. His INR was 3.8. His sodium was 124 however when corrected for his hyperglycemia is 127-128. His potassium was 3.1, anion gap was 18 with a normal serum bicarb at 25. His BUN is markedly elevated 131 with a serum creatinine of 3.06 (baseline serum creatinine runs between 2.5 and 2.7), serum glucose was 264, liver functions are overall unremarkable. His troponin was elevated at 195 however this is his baseline. His BNP was elevated at 203.8 but is markedly lower than his previous hospitalization. His urine was positive for nitrite and leuk esterase however he had no white cells or bacteria seen in his urine. Chest x-ray was unremarkable for any acute findings. EKG was stable with chronic A-fib with and no changes when compared to previous. I cared for Mr. Osman his last hospitalization and we did discuss extensively that we may have to sacrifice his kidneys for his volume status and his heart failure. It appears as though if this is what has taken place and I have discussed the case with nephrology. Their plan is to likely start him on dialysis if the patient is agreeable to help with his uremia and volume status. Hospital course: 1. CEE on CKD stage IV with hyponatremia and anion gap metabolic acidosis anemia of chronic disease and uremia?78-year-old male presented to the hospital with abnormal lab work and was found to be significantly uremic which explains his weakness. Nephrology was consulted who recommended initiating dialysis and he had a tunneled dialysis catheter. He is on Coumadin for A-fib and so his INR had to be reversed and he can restart his Coumadin on discharge. His hyponatremia did resolve and he was able to undergo a tunneled dialysis catheter placement on 09/17/2023. We were able to get him a spot as an outpatient dialysis center with a MWF schedule and so he was discharged today to proceed with outpatient dialysis. I recommend that he follow-up with nephrology as an outpatient as well as his hyperbaric technician. He is on a significant amount of steroids [facility] for an unknown diagnosis and I discussed with him the need to decrease his prednisone dosage by 10 mg every week until he follows up with his hyperbaric technician. I discussed with him the plan for discharge today he expressed understanding of the risk benefits of going home and would like to go home today. 2. Chronic diastolic CHF, A-fib, hypertension, type 2 diabetes, gout, BPH are chronic medical conditions which complicate his care. His home medications were continued where appropriate Physical Exam Narrative General: Alert, Oriented x3, Cooperative, No apparent distress HEENT: Atraumatic, PERRLA, EOMI, Normocephalic Oral: Moist Mucosa Neck: Supple, No JVD Lungs: Diminished, Normal air movement, No rhonchi, No wheeze, No rales Cardiovascular: Regular rate, Regular Rhythm, Normal S1, Normal S2, No murmurs Abdomen: Soft, Non Tender, Non-Distended, No Hepato-splenomegaly Extremities: No edema, Capillary Refill Less than 3 Seconds Skin: No rashes, No breakdown Musculoskeletal: No Tenderness to Palpation of Joints or Extremities Neurological: No focal neurological deficit, Motor Exam 5/5 strength throughout, Sensory exam intact to light touch and pain Psych/Mental Status: Normal Affect, Appropriate Weight / BMI Weight Weight: 168 lb 13.985 oz Body Mass Index (BMI) 28.0 ABG / Lab / Microbiology Data 09/18/23 07:05 09/18/23 07:05 Laboratory: Laboratory Results - last 24 hr 09/17/23 16:13: POC Glucose 131 H 09/17/23 21:06: POC Glucose 355 H 09/18/23 06:31: POC Glucose 293 H 09/18/23 07:05: WBC 18.7 H, RBC 3.72 L, Hgb 10.9 L, Hct 32.1 L, MCV 86.3, MCH 29.3, MCHC 34.0, RDW Std Deviation 41.3, RDW Coeff of Kiersten 13.2, Plt Count 189, MPV 12.7 H, Immature Gran % (Auto) 1.600 H, Neut % (Auto) 91.0 H, Lymph % (Auto) 2.0 L, [place] % (Auto) 5.3, Eos % (Auto) 0.0, Baso % (Auto) 0.1, Absolute Neuts (auto) 17.0 H, Absolute Lymphs (auto) 0.37 L, Nucleated RBC % 0, Differential Comment SCANNED, PT 15.1 H, INR 1.2, Sodium 130 L, Potassium 4.0, Chloride 97 L, Carbon Dioxide 27.0, Anion Gap 6, BUN 60 H, Creatinine 2.19 H, Estim Creat Clear Calc 25.70, Est GFR (MDRD) Af Amer 37 L, Est GFR (MDRD) Non-Af 31 L, BUN/Creatinine Ratio 27.4 H, Glucose 297 H, Calcium 8.9 Microbiology: Microbiology 09/14/23 16:17 Urine, Clean Catch Urine Culture - Final Yeast, not Manisha albicans Radiography Diagnostic Testing: Radiology Impression Chest X-Ray 09/17/23 13:12 IMPRESSION: New right IJ catheter Electronically Signed: Thomas Rodrigez MD at 13:37 EST Reading Location ID and State: [address] [place] [address] , Service support , D/C Instructions Discharge Diet: Low fat / Low cholesterol and Carb Control Diet Call your doctor if you observe: Fever of 101 or Higher, Shortness of breath, Dizziness, Fainting spells, Swelling in the ankles, Chest pain and Increased palpitations (irregular heartbeat) Meaningful Use Info Meaningful Use Diagnoses (Choose all that apply): None applicable Discharge Plan Admission Admit Date/Time: 09/14/23 18:34 Attending Provider: Titi Loomis Primary Care Provider: Howard Escobar Consulting Providers: Raulito Barahona; Jolene Valentine; Ellis Grissom Instructions Additional Instructions / Restrictions: Please cut your 20 mg prednisone tablets in half so each 1 is 10 mg and take 5 daily for a week then take 4 daily for a week then take 3 daily for a week then take 2 daily for a week and then take 1 daily for a week. Follow-up with your PCP in 3 to 5 days as well as rheumatology as an outpatient to adjust steroids if necessary. Discharge Orders/Prescriptions Prescriptions: Continued finasteride 5 mg tablet 5 mg PO DAILY Patient Comments: TAKE 1 TABLET BY MOUTH ONCE DAILY cyanocobalamin (vitamin B-12) [Vitamin B-12] 1,000 mcg tablet 1,000 mcg PO DAILY metolazone 2.5 mg tablet 2.5 mg PO .Thursday Qty: 8 1RF warfarin 2.5 mg tablet See Rx Instructions PO .COMPLEX Rx Instructions: 5mg once daily po every thu; Managed by PCP 2.5 mg daily po every sun thu sat dapagliflozin propanediol [Farxiga] 10 mg tablet 10 mg PO DAILY gabapentin 100 mg capsule 100 mg PO QHS Rx Instructions: take 1-2 100mg capsules at bedtime daily; pantoprazole 40 mg tablet,delayed release (DR/EC) 40 mg PO DAILY prednisone 20 mg Tablet 60 mg PO BREAKFAST Qty: 63 0RF insulin glargine-yfgn 100 unit/mL (3 mL) Insulin Pen 10 unit subcut DAILY Qty: 15 0RF bumetanide 0.5 mg Tablet 1 mg PO BID Qty: 120 0RF Rx Instructions: Start on 09/04/2023 allopurinol 100 mg Tablet 200 mg PO DAILYCM Qty: 30 0RF (DME) pen needle, diabetic 33 gauge x 3/16 needle See Rx Instructions .Route Qty: 100 0RF Rx Instructions: As directed carvedilol 6.25 mg tablet 6.25 mg PO BID Qty: 60 11RF Rx Instructions: must administer with a meal/food amlodipine 5 mg tablet 5 mg PO DAILY Qty: 90 3RF potassium chloride 20 mEq tablet extended release 20 meq PO .COMPLEX Rx Instructions: 20 mEq orally once a week on with Metolazone; Referrals / Follow Up: Howard Escobar DO [Primary Care Provider] - Within 1 Week (Please call the office to schedule an appt within 1 week. ) Disposition Disposition (needs filled in before D/C Order can be placed): Home, Self Care Charges/Coding Visit Charges Inpatient E&M: 38697 Disch Hosp >30min
== END 2023-09-18 11:24 | disposition home or self-care (01) | DRG 641 ==
LOC: ED 17:51 → ICU 18:56 → PCU 09-15 12:54
PROVIDERS: Anesthesiology; Nurse Practitioner Adult Health; Surgery; Admitting Provider Internal Medicine; Emergency Provider Emergency Medicine; PCP Family Medicine; Visit Provider Family Medicine
PROC: 0JH63XZ Insertion of Tunneled Vascular Access Device into Chest Subcutaneous Tissue and Fascia, Percutaneous Approach (ICD-10-PCS; principal; 2023-09-17 11:30)
DX: E87.1 Hypo-osmolality and hyponatremia (principal); I24.89 Other forms of acute ischemic heart disease; I13.0 Hypertensive heart and chronic kidney disease with heart failure and stage 1 through stage 4 chronic kidney disease, or unspecified chronic kidney disease; I50.32 Chronic diastolic (congestive) heart failure; N18.4 Chronic kidney disease, stage 4 (severe); I48.19 Other persistent atrial fibrillation; E87.29 Other acidosis; D63.1 Anemia in chronic kidney disease; E11.22 Type 2 diabetes mellitus with diabetic chronic kidney disease; E11.51 Type 2 diabetes mellitus with diabetic peripheral angiopathy without gangrene; Z79.4 Long term (current) use of insulin; E11.65 Type 2 diabetes mellitus with hyperglycemia; E11.69 Type 2 diabetes mellitus with other specified complication; I34.0 Nonrheumatic mitral (valve) insufficiency; E78.5 Hyperlipidemia, unspecified; I25.10 Atherosclerotic heart disease of native coronary artery without angina pectoris; E87.6 Hypokalemia; M10.9 Gout, unspecified; G47.33 Obstructive sleep apnea (adult) (pediatric); Z87.891 Personal history of nicotine dependence; R79.1 Abnormal coagulation profile; R77.8 Other specified abnormalities of plasma proteins; N40.1 Benign prostatic hyperplasia with lower urinary tract symptoms; Z79.01 Long term (current) use of anticoagulants
CPT/HCPCS: 36415; 71045; 76000; 80048; 80053; 81001; 82962; 83036; 83735; 83880; 84100; 84484; 85025; 85610; 85730; 86850; 86900; 86901; 87086; 87088; 87340; 90937; 93005; 94668; 99285; C1894; J7030; J7040; A4216; C1750; G0257; J2405

== ENCOUNTER → 2023-09-14 | Outpatient (CLI) | payer MEDICARE, BC, SELFPAY ==
--- OUTSIDE RECORDS SUMMARY | 2023-09-14 10:56 | XMS RPT_ITS | CCD ---
Author Name Unknown Address [address] [place] [address] Organization [facility] Care Team Providers Care Cellophane Casting Machine Repairer Name Role Phone VALERIANO STONER, DR HOWARD [...] Patient encounter procedure DR HOWARD BAL MD [facility] Start: 04-29-[address] HOWARD BAL MD Fa cility:B Start: 04-29-2022 End: 05-03-2022 Lab-Standing Order DR HOWARD [facility] Payers Date Payer Category Payer Medicare [id number] 2021 Unknown [id number] 1945 Unknown [id number] [id number] 1945 Unknown [id number] [id number] 1945 Unknown [id number] [id number] Progress note 11-01-2020 Note Date & Type Note Facility 11-01-2020 Note HNO ID: [id number] Author: Dakota Alfaro Service: ? Author Type: Physician Type: Progress Notes Filed: 11/01/2020 2:50 PM Note Text: Subjective: Patient is status post an upper and lower endoscopy. Completed at the [facility] in [place]. Biopsy of his duodenum was negative. Stomach [...] Type Note Facility 10-22-2020 Note HNO ID: [id number] Author: Dakota Alfaro Service: ? Author Type: [...] UMBILICAL ARMEN,5+Y/O,REDUC ? ? - [facility] [place] [facility] [place] [place] ? - TRANSURETHRAL ELEC-SURG [...] Type Note Facility 10-18-2020 Note HNO ID: [id number] Author: Patrick Olivier (Tech) Service: ? Author Type: Brain Picker Type: Progress Notes Filed: 10/18/2020 2:08 PM [...] Type Note Facility 10-18-2020 Note HNO ID: [id number] Author: Dakota Mir Alfaro Service: ? Author [...] - REPAIR UMBILICAL ARMEN,5+Y/O,REDUC - [facility] [place] [facility] - TRANSURETHRAL ELEC-SURG PROSTATECTOM Current [...] entered by the nurse and reviewed by ks Nursing Notes: Rozina Cifuentes RN 10/18/2020 9:13 AM Signed REVIEW OF SYSTEMS: General: The patient denies fatigue, notes weight loss, (more content not included)... [facility] Evaluation + Plan note Note Date & Type Note Facility Evaluation + Plan note No data available for this section [facility] Hospital Discharge instructions Note Date & Type Note Facility Hospital Discharge instructions No data available for this section [facility] Progress note Note Date & Type Note Facility Progress note No data available for this section [facility] Summary Purpose Family History No Family History Records FoundNo Family History Records Found Advance Directives No Advanced Directives Records FoundNo Advanced Directives Records Found Additional Source Comments (unrecognized sect ion and content) No Status Records FoundNo Status Records Found INFORMATION SOURCE (unrecogn ized section and content) DATE CREATED AUTHOR AUTHOR'S ORGANIZ ATION 04/27/2023 [facility] ([place] Care Team (unrecognized sect ion and content) Care Team Personnel Name: HOWARD BAL MD Member Role: Primary Care Physician Address: Address: [place] [id number] [place] [address] Patient Care team informatio n (unrecognized section and content) Care Team Personnel Name: HOWARD BAL MD Member Role: Primary Care Physician Address: Address: [place] [id number] FOR RECORDS PERTAINING TO PATIENTS WHO [...] BE BASED ON THE PRIMARY CLINICAL RECORDS. [facility] [employer] [facility]. provides no warranty or guarantee of the accuracy or completeness of information in this document.
[2023-09-14 11:32] LABS: Anion Gap 16 (5-15); BUN 136 mg/dL (7-18); BUN/Creat Ratio 44.6 RATIO (10-20); Calcium,Total 8.8 mg/dL (8.5-10.1); Chloride 81 mmol/L (98-107); Creatinine, Serum 3.05 mg/dL (0.70-1.30); EST Glomerular Filtration Rate 21 mL/min (>60); Est Glom Filt Rate - Afr Amer 26 mL/min (>60); Glucose 327 mg/dL (74-106); Potassium 3.9 mmol/L (3.5-5.1); Sodium Level 122 mmol/L (136-145)
== END | disposition home or self-care (01) ==
LOC: LAB 10:31
PROVIDERS: PCP Family Medicine; Referring Provider Nurse Practitioner Gerontology; Visit Provider Nurse Practitioner Gerontology
DX: M05.79 Rheumatoid arthritis with rheumatoid factor of multiple sites without organ or systems involvement (principal); Z79.899 Other long term (current) drug therapy; E87.1 Hypo-osmolality and hyponatremia; E87.6 Hypokalemia
CPT/HCPCS: 36415; 80048

== ENCOUNTER 2023-09-25 11:03 | Outpatient (RCR) | payer MEDICARE, BC, SELFPAY ==
[2023-09-07 14:00] LABS: International Normalized Ratio 2.5; Prothrombin Time (Protime)PT. 27.5 SECONDS (11.7-14.9)
[2023-09-07 14:33] LABS: Anion Gap 12 (5-15); BUN 109 mg/dL (7-18); BUN/Creat Ratio 40.2 RATIO (10-20); Calcium,Total 8.9 mg/dL (8.5-10.1); Chloride 87 mmol/L (98-107); Creatinine, Serum 2.71 mg/dL (0.70-1.30); EST Glomerular Filtration Rate 24 mL/min (>60); Est Glom Filt Rate - Afr Amer 29 mL/min (>60); Glucose 194 mg/dL (74-106); Potassium 3.1 mmol/L (3.5-5.1); Sodium Level 127 mmol/L (136-145)
[2023-09-09 10:08] LABS: Absolute Lymphocyte Count 1.23 X10^3/uL (0.83-4.51); Absolute Neutrophil Count 16.8 X10^3/uL (2.0-7.7); Basophil# 0.05 X10^3/uL; Basophil% 0.2 % (0-1); Eosinophil# 0.01 X10^3/uL; Hematocrit 35.9 % (40-54); Hemoglobin 12.6 g/dL (13.0-16.5); Lymphocyte # 1.23 X10^3/ul (0.83-4.51); Mean Corp Hgb Conc 35.1 g/dL (32-36); Mean Corpuscular Hgb 29.9 pg (27.0-32.0); Mean Corpuscular Volume 85.1 fL (80-94); Mean Platelet Vol. 11.8 fl (6.2-12.0); Monocyte# 1.72 X10^3/uL; Monocyte% 8.5 % (0-10); NRBC Flagged by Analyzer 0 % (0-5); Neutrophil # 16.77 X10^3/uL (2.7-7.7); Neutrophil % 82.5 % (47-70); POSITIVE DIFFERENTIAL YES; Platelet Count 326 K/mm3 (150-450); RBC Distribution Width CV 13.3 % (11.6-14.6); RBC Distribution Width SD 40.9 fl (35.1-43.9); Red Blood Count 4.22 M/mm3 (4.6-6.2); White Blood Count 20.4 K/mm3 (4.4-11.0)
[2023-09-09 10:15] LABS: Differential Indicated SCAN CRITERIA MET
[2023-09-09 11:57] LABS: Differential Comment SCANNED
[2023-09-09 12:31] LABS: Anion Gap 14 (5-15); BUN 114 mg/dL (7-18); BUN/Creat Ratio 44.2 RATIO (10-20); Calcium,Total 9.3 mg/dL (8.5-10.1); Chloride 93 mmol/L (98-107); Creatinine, Serum 2.58 mg/dL (0.70-1.30); EST Glomerular Filtration Rate 26 mL/min (>60); Est Glom Filt Rate - Afr Amer 31 mL/min (>60); Glucose 178 mg/dL (74-106); Potassium 3.3 mmol/L (3.5-5.1); Sodium Level 129 mmol/L (136-145)
[2023-09-10 13:40] LABS: Pathologist Review Reviewed
[2023-09-25 12:14] LABS: International Normalized Ratio 1.6
[2023-09-25 13:02] LABS: Anion Gap 13 (5-15); BUN 60 mg/dL (7-18); Calcium,Total 8.4 mg/dL (8.5-10.1); Chloride 87 mmol/L (98-107); Creatinine, Serum 2.61 mg/dL (0.70-1.30); EST Glomerular Filtration Rate 25 mL/min (>60); Est Glom Filt Rate - Afr Amer 31 mL/min (>60); Glucose 357 mg/dL (74-106); Potassium 2.9 mmol/L (3.5-5.1); Sodium Level 129 mmol/L (136-145)
== END 2023-09-25 18:00 | disposition home or self-care (01) ==
LOC: LAB 11:03
PROVIDERS: Nurse Practitioner Family; PCP Family Medicine; Referring Provider Family Medicine; Visit Provider Family Medicine
DX: Z79.01 Long term (current) use of anticoagulants; Z79.52 Long term (current) use of systemic steroids; E87.6 Hypokalemia; E87.1 Hypo-osmolality and hyponatremia; N18.9 Chronic kidney disease, unspecified
CPT/HCPCS: 36415; 80048; 85025; 85610

== ENCOUNTER 2023-10-02 11:20 | Outpatient (RCR) | payer MEDICARE, BC, SELFPAY ==
[2023-10-02 12:14] LABS: International Normalized Ratio 3.4
== END 2023-10-29 18:00 | disposition home or self-care (01) ==
LOC: LAB 11:20
PROVIDERS: PCP Family Medicine; Referring Provider Family Medicine; Visit Provider Family Medicine
DX: I48.0 Paroxysmal atrial fibrillation (principal)
CPT/HCPCS: 36415; 85610

== ENCOUNTER 2023-10-03 13:10 | Emergency (ER) | payer MEDICARE, BC, SELFPAY ==
[2023-10-03] VITALS (7 sets, daily range): BP systolic 81–143; BP diastolic 54–76; PULSE 59–78; RESP 16–21; TEMP 36.4; O2SAT 94–99; BMI 26.6
--- NOTE | 2023-10-03 13:34 | EX.ED.DYSGE1 ---
HPI History of Present Illness Chief Complaint: Hypotension Informant: patient and family Narrative Narrative: 78-year-old male had routine dialysis yesterday, his pressure was a little low as it not uncommonly is, his material flow engineer was there and advised that he cut his carvedilol in half, he took the first new dose of 3.175 mg this morning. Overnight, he was feeling weak and lightheaded, and started feeling itchy. This morning he checked his blood pressure because he still felt like that and it was 77/50 which is very low for him. When he is feeling well his blood pressure is usually in the 130s. He presents to the ER for that reason. He denies any other symptoms but when asked if he feels short of breath he states that he does a little. He denies any recent cough or fevers. Son states that his eyes look swollen but he denies any swelling in his hands or feet, and actually has a history of's congestive heart failure with chronic edema in his legs and he states that the edema in his legs right now is doing very well and is down. He denies any chest discomfort. He has no idea how far off of his dry weight he was yesterday or how much fluid they took off. 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 Currently he is on 30 mg daily. His blood sugars have been high because he was started at 50 mg but they are not as bad now. Additionally patient describes no new topicals, detergents, clothing, anything new or unusual at dialysis that could have caused an allergic reaction, or anything else new including medications that he can think of at home that could be causing a reaction. [facility] Medical History Abnormal ankle brachial index (LOKI) Acute hypoxic respiratory failure Anemia due to stage 3b chronic kidney disease Back pain BPH (benign prostatic hyperplasia) Cardiology follow-up encounter CHF NYHA class III Chronic combined systolic and diastolic CHF (congestive heart failure) Chronic kidney disease, stage 3b Chronic kidney disease, stage 4 (severe) Claudication Constipation CPAP (continuous positive airway pressure) dependence Diabetes Diarrhea Dietary restriction Elevated troponin (01/2021) Essential (primary) hypertension Gout Heartburn History of echocardiogram History of edema History of irregular heartbeat History of non-ST elevation myocardial infarction (NSTEMI) (07/25/21) History of pain when walking History of steroid therapy History of tobacco use HLD (hyperlipidemia) Hypertension Hypertrophic cardiomyopathy Hypokalemia Joint pain Lactic acidosis Left bundle branch block Leg cramps Leukocytosis Longstanding persistent atrial fibrillation Mitral valve insufficiency Night sweats 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 Obesity (BMI 30.0-34.9) KIMBERLY (obstructive sleep apnea) Persistent atrial fibrillation Poor appetite Presence of implantable pulmonary artery pressure and heart rate monitoring system (03/25/21) Renal infarct Restless legs Secondary pulmonary arterial hypertension Shortness of breath on exertion Wears glasses Home Medications finasteride 5 mg tablet 5 mg PO DAILY prostate 12/19/20 [History Last Taken 12/22/20] warfarin 2.5 mg tablet See Rx Instructions PO .COMPLEX blood thinner 03/11/21 [History Last Taken 05/31/22] cyanocobalamin (vitamin B-12) 1,000 mcg tablet (Vitamin B-12) 1,000 mcg PO DAILY supplement 06/26/22 [History Last Taken Unknown] carvedilol 6.25 mg tablet 6.25 mg PO BID #60 tabs 05/13/23 [Rx Last Taken Unknown] amlodipine 5 mg tablet 5 mg PO DAILY #90 tabs 07/07/23 [Rx Last Taken Unknown] dapagliflozin propanediol 10 mg tablet (Farga) 10 mg PO DAILY diabetes 08/29/23 [History Last Taken Unknown] gabapentin 100 mg capsule 100 mg PO QHS unsure 08/29/23 [History Last Taken Unknown] pantoprazole 40 mg tablet,delayed release 40 mg PO DAILY prevent stomach ulcers 08/29/23 [History Last Taken Unknown] allopurinol 100 mg tablet 200 mg (2 x 100 mg) PO DAILYCM #30 tabs 09/03/23 [Rx Last Taken Unknown] bumetanide 0.5 mg tablet 1 mg (2 x 0.5 mg) PO BID #120 tabs 09/03/23 [Rx Last Taken Unknown] insulin glargine-yfgn 100 unit/mL (3 mL) subcutaneous pen 10 unit (0.1 mL) subcut DAILY #15 mL 09/03/23 [Rx Last Taken Unknown] pen needle, diabetic 33 gauge x 16 #100 ea 09/03/23 [Rx Last Taken Unknown] prednisone 20 mg tablet 60 mg (3 x 20 mg) PO BREAKFAST #63 tabs 09/03/23 [Rx Last Taken Unknown] metolazone 2.5 mg tablet 2.5 mg PO .Thursday #8 tabs 09/09/23 [Rx Last Taken Unknown] potassium chloride 20 mEq tablet,extended release 20 meq PO .COMPLEX 09/09/23 [History Last Taken Unknown] epinephrine 0.3 mg/0.3 mL injection, auto-injector 0.3 mg (0.3 mL) IM Q4H PRN anaphylaxis #2 ea 10/03/23 [Rx Last Taken Unknown] Allergy/AdvReac Type Severity Reaction Status Date / Time rivaroxaban [From Xarelto] Allergy Bleeding Verified 10/03/23 13:11 metoprolol AdvReac bradycardia Verified 10/03/23 13:11 Family History Father Heart disease Sister Heart disease Brother Heart disease Other Arthritis CVA (cerebral vascular accident) Depression Mental disorder Surgical History History of appendectomy History of cataract extraction History of left heart catheterization (02/19/21) History of transurethral resection of prostate (01/2019) History of ventricular septal myectomy (2000) Hx of umbilical hernia repair Social History Smoking Status: Former smoker how long ago did patient quit smokin years ago 0.25ppd second hand exposure: Yes alcohol intake: never caffeine: Yes Type: coffee Number of servings: 1 what type of physical activity do you participate in: other details: treadmill frequency: daily ROS ROS ED Constitutional Constitutional ED: Reports weakness; Denies chills or fever(s) Eyes Eyes: Denies change in vision or diplopia ENT ENT ED: Reports other Details: Facial swelling, no tongue or mouth swelling or throat swelling ; Denies rhinorrhea or sore throat Cardiovascular Cardiovascular: Reports lightheadedness; Denies chest pain, palpitations or syncope Respiratory/Chest Respiratory/Chest: Reports dyspnea; Denies cough Gastrointestinal Gastrointestinal: Denies abdominal pain, diarrhea, nausea or vomiting Genitourinary Genitourinary ED: Denies dysuria or hematuria Musculoskeletal Musculoskeletal: Denies back pain or neck pain Integumentary Reports pruritus and rash; Denies abscess Neurologic Neurologic: Denies headache(s), paresthesias or weakness Psychiatric Psychiatric: Denies anxiety or suicidal thoughts EXAM Physical Exam Const Vital Signs: 10/03/23 13:11 10/03/23 13:25 10/03/23 13:29 Temperature 97.6 F L Temperature Source Temporal Pulse Rate 78 59 L Respiratory Rate 16 21 H Respiratory Effort Normal Non-Labored Respiratory Pattern Normal Blood Pressure 82/68 L 106/68 Blood Pressure Mean 72 80 Pulse Ox 99 99 Oxygen Delivery Method Room Air Room Air 10/03/23 13:48 10/03/23 14:11 10/03/23 14:42 Temperature Temperature Source Pulse Rate 69 72 70 Respiratory Rate 21 H 20 H 18 Respiratory Effort Respiratory Pattern Blood Pressure 81/72 L 143/68 H 122/55 H Blood Pressure Mean 75 93 77 Pulse Ox 96 97 94 Oxygen Delivery Method Room Air Room Air Room Air 10/03/23 14:48 Temperature Temperature Source Pulse Rate 71 Respiratory Rate 20 H Respiratory Effort Respiratory Pattern Blood Pressure 99/54 L Blood Pressure Mean 69 Pulse Ox 97 Oxygen Delivery Method Room Air Positive well nourished and well developed General Appearance ED: well developed and NAD HEENT Reports moist mucous membranes HEENT Narrative: Mild bilateral periorbital edema without tenderness or erythema normocephalic and atraumatic Eyes PERRL and EOMs intact bilaterally Neck full ROM and supple Resp normal respiratory effort and clear to auscultation bilaterally Cardio regular rate, regular rhythm and no murmurs Rate: Negative for tachycardic GI non-tender and non-distended Auscultation: normoactive bowel sounds Palpation: soft Back/Spine no CVA tenderness General Back: other FROM Extremity General Extremety ED: Negative for edema, pulses abnormal or tenderness General Extremity: Negative for edema or pulses abnormal Neuro oriented x3, CN's II-XII intact bilaterally and no sensory deficits noted Sensorium / Orientation: awake and alert Motor Exam: general weakness Psych mental status grossly normal Skin no wounds Skin Narrative: Nontender urticarial rash throughout trunk and less on proximal extremities. Ecchymosis/purpura that appears old on both hands and forearms. MDM MDM MDM Narrative Medical decision making narrative: Although patient's blood pressure is better than it was at home at 106 systolic right now, he is very weak, he is feeling a little lightheaded, and appears to be having an anaphylactoid reaction of some sort. I do not want to give him anticholinergic such as Benadryl, so I think epinephrine would be the safest most indicated treatment initially. This was given 0.3 mg IM while we performed a bit of the workup including evaluation for acute coronary syndrome. The epinephrine basically fixed his symptoms. The rash disappeared, his swelling improved, and his blood pressure went up although we did give him a 250 cc IV saline bolus in addition. With several hours of observation it stayed up. He felt much better. His workup shows a leukocytosis which is undoubtedly due to the steroids, and looking back at his old labs, the timing correlates. He has some mild hypokalemia and hyponatremia, he takes potassium supplementation and did not take his potassium pills yet today, and I am not too worried about this because he is not symptomatic from the sodium being low. His glucose is 277 again likely related to the steroids. His EKG shows a stable left bundle branch block and chronic atrial fibrillation rate controlled in the 50s, here clinically he has been no higher than 75 or 80. It is unknown what he reacted to. His initial troponin came back at 460. This is higher than he is used to although he is almost always abnormal, the prior measurements were sometime ago. Back when he was higher than his typical 150-200, he was admitted for heart cath in 2020, those records indicate luminal irregularities only. Although he said he was a little short of breath it seems better after the epinephrine, and he was put on this extended steroid taper because of rheumatoid lung according to him and the family member. I repeated his troponin 2 hours later, it is down to 398. I do not think this is acute coronary syndrome. I discussed all this with Dr. Sandoval, he agrees with me. Routine outpatient Cardiologic follow-up would be reasonable, I am giving the patient a prescription for an EpiPen just in case this recurs, since we do not know what he potentially reacted to, and advising returning to the ER for recurrence. He and son are comfortable with that plan and answered all questions at the bedside. Lab Data Attestation: I reviewed the patient's lab results. Labs: Laboratory Results - last 24 hr 10/03/23 10/03/23 13:40 15:40 WBC 22.8 H RBC 4.55 L Hgb 13.3 Hct 39.1 L MCV 85.9 MCH 29.2 MCHC 34.0 RDW Std Deviation 43.8 RDW Coeff of Kiersten 14.2 Plt Count 129 L MPV 11.3 Immature Gran % (Auto) 2.900 H Neut % (Auto) 87.7 H Lymph % (Auto) 3.0 L [place] % (Auto) 6.2 Eos % (Auto) 0.0 Baso % (Auto) 0.2 Absolute Neuts (auto) 20.0 H Absolute Lymphs (auto) 0.68 L Nucleated RBC % 0.1 Sodium 126 L Potassium 3.2 L Chloride 88 L Carbon Dioxide 27.0 Anion Gap 11 BUN 31 H Creatinine 2.38 H Estim Creat Clear Calc 21.53 Est GFR (MDRD) Af Amer 34 L Est GFR (MDRD) Non-Af 28 L BUN/Creatinine Ratio 13.0 Glucose 277 H Calcium 8.7 Troponin I High Sens 460 H* 398 H* Radiography Diagnostic Testing: Clinical Impression(s) from Imaging Studies Chest X-Ray 10/03/23 13:43 IMPRESSION: No acute pulmonary abnormality. Stable mild cardiomegaly Electronically Signed: Omar Hamilton MD at 14:24 EST Reading Location ID and State: [facility] / [place] Tel , Service support , Rhythm Strip Rhythm Strip: A-fib Rate: 60 Ectopy: None EKG Initial EKG: Attestation: I personally reviewed and interpreted this EKG as follows: Interpretation: Atrial Fibrillation and LBBB Prior EKG tracings: available for review Prior: Unchanged Management Discussion w/another healthcare provider: Environmental Services Associate (Cardiology Dr. Sandoval) Critical Care Time Critical Care Time: Yes Critical care time (excluding procedures): 30-74 minutes (33 min), Including time spent:, Discussing w/Patient &/or Family/Macaroni Maker, Discussing w/Consultants, Arranging Admission or Transfer and Performing Direct Patient Care at Bedside Discharge Plan Triage Chief Complaint: Hypotension ED Provider: Ricardo Huggins Dx/Rx/DC Orders Clinical Impression: Transient hypotension, Anaphylactoid reaction Instructions: Anaphylactic Shock Dc Prescriptions: New epinephrine 0.3 mg/0.3 mL auto-injector 0.3 mg IM Q4H PRN (Reason: anaphylaxis) Qty: 2 0RF No Action finasteride 5 mg tablet 5 mg PO DAILY Patient Comments: TAKE 1 TABLET BY MOUTH ONCE DAILY cyanocobalamin (vitamin B-12) [Vitamin B-12] 1,000 mcg tablet 1,000 mcg PO DAILY metolazone 2.5 mg tablet 2.5 mg PO .Thursday Qty: 8 1RF warfarin 2.5 mg tablet See Rx Instructions PO .COMPLEX Rx Instructions: 5mg once daily po every thu; Managed by PCP 2.5 mg daily po every thu dapagliflozin propanediol [Farxiga] 10 mg tablet 10 mg PO DAILY gabapentin 100 mg capsule 100 mg PO QHS Rx Instructions: take 1-2 100mg capsules at bedtime daily; pantoprazole 40 mg tablet,delayed release (DR/EC) 40 mg PO DAILY prednisone 20 mg Tablet 60 mg PO BREAKFAST Qty: 63 0RF insulin glargine-yfgn 100 unit/mL (3 mL) Insulin Pen 10 unit subcut DAILY Qty: 15 0RF bumetanide 0.5 mg Tablet 1 mg PO BID Qty: 120 0RF Rx Instructions: Start on 09/04/2023 allopurinol 100 mg Tablet 200 mg PO DAILYCM Qty: 30 0RF (DME) pen needle, diabetic 33 gauge x 3/16 needle See Rx Instructions .Route Qty: 100 0RF Rx Instructions: As directed carvedilol 6.25 mg tablet 6.25 mg PO BID Qty: 60 11RF Rx Instructions: must administer with a meal/food amlodipine 5 mg tablet 5 mg PO DAILY Qty: 90 3RF potassium chloride 20 mEq tablet extended release 20 meq PO .COMPLEX Rx Instructions: 20 mEq orally once a week on with Metolazone; Primary Care Provider: Howard Escobar Referrals: Howard Escobar, [Primary Care Provider] - As soon as possible Disposition Disposition: Home, Self Care
[2023-10-03] MEDS: Epi Pen (EQUIV) 0.3 MG Syringe 0.299999999999999989 MG IM (13:39)
--- NOTE | 2023-10-03 13:43 | RAD_ITS ---
EXAM: XR CHEST, 1 VIEW CLINICAL INDICATION: sob TECHNIQUE: Frontal view of the chest. COMPARISON: XR Chest dated 09/17/2023 FINDINGS: LUNGS AND PLEURAL SPACES: Normal. No consolidation or edema. No pneumothorax. No effusion. HEART: Stable mild cardiomegaly. MEDIASTINUM: No mediastinal or hilar mass. BONES/JOINTS: No acute abnormality. TUBES, LINES AND DEVICES: Right IJ dialysis catheter remains in place. RAD/Chest 1 View (Portable) IMPRESSION: No acute pulmonary abnormality. Stable mild cardiomegaly Electronically Signed: Omar Hamilton MD at 14:24 EST ,
[2023-10-03] MEDS: 0.9% Normal Saline (250mL Bag) 250 ML 999 ML IV (13:47)
[2023-10-03 13:49] LABS: Absolute Lymphocyte Count 0.68 X10^3/uL (0.83-4.51); Basophil# 0.04 X10^3/uL; Basophil% 0.2 % (0-1); Eosinophil# 0.01 X10^3/uL; Hematocrit 39.1 % (40-54); Hemoglobin 13.3 g/dL (13.0-16.5); Lymphocyte # 0.68 X10^3/ul (0.83-4.51); Mean Corpuscular Hgb 29.2 pg (27.0-32.0); Mean Corpuscular Volume 85.9 fL (80-94); Mean Platelet Vol. 11.3 fl (6.2-12.0); Monocyte# 1.42 X10^3/uL; Monocyte% 6.2 % (0-10); NRBC Flagged by Analyzer 0.1 % (0-5); Neutrophil # 19.95 X10^3/uL (2.7-7.7); Neutrophil % 87.7 % (47-70); Platelet Count 129 K/mm3 (150-450); RBC Distribution Width CV 14.2 % (11.6-14.6); RBC Distribution Width SD 43.8 fl (35.1-43.9); Red Blood Count 4.55 M/mm3 (4.6-6.2); White Blood Count 22.8 K/mm3 (4.4-11.0)
--- OUTSIDE RECORDS SUMMARY | 2023-10-03 13:52 | XMS RPT_ITS | CCD ---
Author Name Unknown Address [address] [place] [address] Organization [facility] Care Team Providers Care Construction Safety Manager Name Role Phone VALERIANO STONER, DR HOWARD [...] Patient encounter procedure DR HOWARD BAL MD [facility] Start: 04-29-[address] HOWARD BAL MD Fa cility:B Start: 04-29-2022 End: 05-03-2022 Lab-Standing Order DR HOWARD [facility] Payers Date Payer Category Payer Medicare [id number] 2021 Unknown [id number] 1945 Unknown [id number] [id number] 1945 Unknown [id number] [id number] 1945 Unknown [id number] [id number] Progress note 11-01-2020 Note Date & Type Note Facility 11-01-2020 Note HNO ID: [id number] Author: Dakota Alfaro Service: ? Author Type: Physician Type: Progress Notes Filed: 11/01/2020 2:50 PM Note Text: Subjective: Patient is status post an upper and lower endoscopy. Completed at the [facility] in [place]. Biopsy of his duodenum was negative. Stomach [...] he will get it rescheduled. [facility] Progress note 10-22-2020 Note Date & Type Note Facility 10-22-2020 Note HNO ID: [id number] Author: Dakota Alfaro Service: ? Author Type: [...] HI (more content not included)... [facility] Progress note 10-18-2020 Note Date & Type Note Facility 10-18-2020 Note HNO ID: [id number] Author: Patrick Olivier (Tech) Service: ? Author Type: Security And Compliance Analyst Type: Progress Notes Filed: 10/18/2020 2:08 PM [...] 18, 2020 TIME: 2:07 PM [facility] Progress note 10-18-2020 Note Date & Type Note Facility 10-18-2020 Note HNO ID: [id number] Author: Dakota Mir Alfaro Service: ? Author [...] entered by the nurse and reviewed by la Nursing Notes: Rozina Cifuentes RN 10/18/2020 9:13 AM Signed REVIEW OF SYSTEMS: General: The patient denies fatigue, notes weight loss, (more content not included)... [facility] Evaluation + Plan note Note Date & Type Note Facility Evaluation + Plan note No data available for this section [facility] Hospital Discharge instructions Note Date & Type Note Facility Hospital Discharge instructions No data available for this section [facility] Progress note Note Date & Type Note Facility Progress note No data available for this section [facility] Summary Purpose Family History No Family History Records FoundNo Family History Records Found Advance Directives No Advanced Directives Records FoundNo Advanced Directives Records Found Additional Source Comments (unrecognized sect ion and content) No Status Records FoundNo Status Records Found INFORMATION SOURCE (unrecogn ized section and content) DATE CREATED AUTHOR AUTHOR'S ORGANIZ ATION 04/27/2023 [facility] ([place]) Care Team (unrecognized sect ion and content) Care Team Personnel Name: HOWARD BAL MD Member Role: Primary Care Physician Address: Address: [place] [id number] [place] [address] Patient Care team informatio n (unrecognized section and content) Care Team Personnel Name: HOWARD BAL MD Member Role: Primary Care Physician Address: Address: [place] [id number] FOR RECORDS PERTAINING TO PATIENTS WHO [...] BE BASED ON THE PRIMARY CLINICAL RECORDS. [facility] [employer] [facility]. provides no warranty or guarantee of the accuracy or completeness of information in this document.
[2023-10-03 14:23] LABS: Anion Gap 11 (5-15); BUN 31 mg/dL (7-18); Calcium,Total 8.7 mg/dL (8.5-10.1); Chloride 88 mmol/L (98-107); Creatinine, Serum 2.38 mg/dL (0.70-1.30); EST Glomerular Filtration Rate 28 mL/min (>60); Est Glom Filt Rate - Afr Amer 34 mL/min (>60); Estimated Creatinine Clearance 21.53 ml/min; Glucose 277 mg/dL (74-106); Potassium 3.2 mmol/L (3.5-5.1); Sodium Level 126 mmol/L (136-145); Troponin-I HS (w/2H Reflex) 460 pg/mL (3.0-78.0)
[2023-10-03 15:46] LABS: Reflex Troponin-HS? (from REC) Y
[2023-10-03 16:27] LABS: Troponin-I HS 398 pg/mL (3.0-78.0)
== END 2023-10-03 17:11 | disposition home or self-care (01) ==
PROVIDERS: Emergency Provider Emergency Medicine; PCP Family Medicine; Referring Provider Emergency Medicine; Visit Provider Emergency Medicine
DX: T78.2XXA Anaphylactic shock, unspecified, initial encounter (principal); Z99.2 Dependence on renal dialysis; M05.10 Rheumatoid lung disease with rheumatoid arthritis of unspecified site; I50.42 Chronic combined systolic (congestive) and diastolic (congestive) heart failure; I13.0 Hypertensive heart and chronic kidney disease with heart failure and stage 1 through stage 4 chronic kidney disease, or unspecified chronic kidney disease; E11.22 Type 2 diabetes mellitus with diabetic chronic kidney disease; N18.4 Chronic kidney disease, stage 4 (severe); Z79.4 Long term (current) use of insulin; R03.1 Nonspecific low blood-pressure reading; Z87.891 Personal history of nicotine dependence; I25.2 Old myocardial infarction; N40.0 Benign prostatic hyperplasia without lower urinary tract symptoms; Z79.899 Other long term (current) drug therapy; Z90.49 Acquired absence of other specified parts of digestive tract
CPT/HCPCS: 99285; 71045; 80048; 84484; 85025; 93005; A4216

== ENCOUNTER 2023-10-04 05:02 | Inpatient (IN) | payer MEDICARE, BC, SELFPAY ==
[2023-10-04] VITALS (31 sets, daily range): BP systolic 72–121; BP diastolic 40–82; PULSE 63–122; RESP 14–28; TEMP 36.9–37.6; O2SAT 90–100; BMI 28.0
[2023-10-04 05:58] LABS: Absolute Lymphocyte Count 0.43 X10^3/uL (0.83-4.51); Absolute Neutrophil Count 14.8 X10^3/uL (2.0-7.7); Basophil# 0.08 X10^3/uL; Basophil% 0.5 % (0-1); Hematocrit 42.7 % (40-54); Hemoglobin 14.3 g/dL (13.0-16.5); Lymphocyte # 0.43 X10^3/ul (0.83-4.51); Lymphocyte % 2.6 % (19-41); Mean Corp Hgb Conc 33.5 g/dL (32-36); Mean Corpuscular Hgb 28.7 pg (27.0-32.0); Mean Corpuscular Volume 85.7 fL (80-94); Mean Platelet Vol. 12.2 fl (6.2-12.0); Monocyte# 0.99 X10^3/uL; Monocyte% 5.9 % (0-10); NRBC Flagged by Analyzer 0.4 % (0-5); Neutrophil # 14.78 X10^3/uL (2.7-7.7); Neutrophil % 88.4 % (47-70); POSITIVE DIFFERENTIAL YES; Platelet Count 119 K/mm3 (150-450); RBC Distribution Width CV 14.6 % (11.6-14.6); RBC Distribution Width SD 44.6 fl (35.1-43.9); Red Blood Count 4.98 M/mm3 (4.6-6.2); White Blood Count 16.7 K/mm3 (4.4-11.0)
--- NOTE | 2023-10-04 06:06 | RAD_ITS ---
EXAM: XR CHEST, 1 VIEW CLINICAL INDICATION: weakness TECHNIQUE: Frontal view of the chest. COMPARISON: October 03, 2023 at 1:41 PM. FINDINGS: LUNGS AND PLEURAL SPACES: Mild pulmonary hypoinflation compared to yesterday with mildly accentuated and mildly prominent right hilar vessels. No definite infiltrate or right effusion. Left lateral costophrenic angle is now obscured by prominent left epicardial fat pad, atelectasis or effusion. No pneumothorax. HEART: Stable mild-moderate cardiomegaly. MEDIASTINUM: Central airways and mediastinal contour are unremarkable. BONES/JOINTS: Median sternotomy wires are again noted. No acute fracture. SOFT TISSUES: Unremarkable. TUBES, LINES AND DEVICES: Stable position of the double-lumen large-bore right jugular catheter, tips over the distal SVC. RAD/Chest 1 View (Portable) IMPRESSION: 1. Low lung volumes with mild increased right hilar pulmonary vascular prominence and increased opacity obscuring the left lateral costophrenic angle. 2. Similar cardiomegaly. Stable right jugular catheter. Electronically Signed: April Stack MD at 7:15 EST ,
[2023-10-04 06:13] LABS: International Normalized Ratio 3.6; Prothrombin Time (Protime)PT. 36.7 SECONDS (11.7-14.9)
--- OUTSIDE RECORDS SUMMARY | 2023-10-04 06:21 | XMS RPT_ITS | CCD ---
Author Name Unknown Address [address] [place] [address] Organization [facility] Care Team Providers Care Powder Room Attendant Name Role Phone VALERIANO STONER, DR HOWARD [...] Patient encounter procedure DR HOWARD BAL MD [facility] Start: 04-29-[address] HOWARD BAL MD Fa cility:B Start: 04-29-2022 End: 05-03-2022 Lab-Standing Order DR HOWARD [facility] Payers Date Payer Category Payer Medicare [id number] 2021 Unknown [id number] 1945 Unknown [id number] [id number] [id number] 1945 Unknown [id number] [id number] 1945 Unknown [id number] Progress note 11-01-2020 Note Date & Type Note Facility 11-01-2020 Note HNO ID: [id number] Author: Dakota Alfaro Service: ? Author Type: Physician Type: Progress Notes Filed: 11/01/2020 2:50 PM Note Text: Subjective: Patient is status post an upper and lower endoscopy. Completed at the [facility] in [place]. Biopsy of his duodenum was negative. Stomach [...] that point he will get it rescheduled. [facility] Progress note 10-22-2020 Note Date & Type Note Facility 10-22-2020 Note HNO ID: [id number] Author: Dakota Alfaro Service: ? Author Type: [...] UMBILICAL ARMEN,5+Y/O,REDUC ? ? - [facility]SS ? ? - TRANSURETHRAL ELEC-SURG [...] HISTORY: FAMILY HI (more content not included)... [facility] Progress note 10-18-2020 Note Date & Type Note Facility 10-18-2020 Note HNO ID: [id number] Author: Patrick Olivier (Tech) Service: ? Author Type: Licensed Mass Real Estate Appraiser Type: Progress Notes Filed: 10/18/2020 2:08 PM [...] DATE: October 18, 2020 TIME: 2:07 PM [facility] Progress note 10-18-2020 Note Date & Type Note Facility 10-18-2020 Note HNO ID: [id number] Author: Dakota Mir Alfaro Service: ? Author [...] - REPAIR UMBILICAL ARMEN,5+Y/O,REDUC - [facility] - TRANSURETHRAL ELEC-SURG PROSTATECTOM Current [...] entered by the nurse and reviewed by nh Nursing Notes: Rozina Cifuentes RN 10/18/2020 9:13 AM Signed REVIEW OF SYSTEMS: General: The patient denies fatigue, notes weight loss, (more content not included)... [facility] Evaluation + Plan note Note Date & Type Note Facility Evaluation + Plan note No data available for this section [facility] Hospital Discharge instructions Note Date & Type Note Facility Hospital Discharge instructions No data available for this section [facility] Progress note Note Date & Type Note Facility Progress note No data available for this section [facility] Summary Purpose Family History No Family History Records FoundNo Family History Records Found Advance Directives No Advanced Directives Records FoundNo Advanced Directives Records Found Additional Source Comments (unrecognized sect ion and content) No Status Records FoundNo Status Records Found INFORMATION SOURCE (unrecogn ized section and content) DATE CREATED AUTHOR AUTHOR'S ORGANIZ ATION 04/27/2023 [facility] ([place]) Care Team (unrecognized sect ion and content) Care Team Personnel Name: HOWARD BAL MD Member Role: Primary Care Physician Address: Address: [place] [id number] [place] [address] Patient Care team informatio n (unrecognized section and content) Care Team Personnel Name: HOWARD BAL MD Member Role: Primary Care Physician Address: Address: [place] [id number] FOR RECORDS PERTAINING TO PATIENTS WHO [...] BE BASED ON THE PRIMARY CLINICAL RECORDS. [facility] [employer] [facility]. provides no warranty or guarantee of the accuracy or completeness of information in this document.
[2023-10-04 06:55] LABS: Anion Gap 10 (5-15); BUN 39 mg/dL (7-18); BUN/Creat Ratio 13.2 RATIO (10-20); Chloride 89 mmol/L (98-107); Creatinine, Serum 2.96 mg/dL (0.70-1.30); EST Glomerular Filtration Rate 22 mL/min (>60); Est Glom Filt Rate - Afr Amer 26 mL/min (>60); Estimated Creatinine Clearance 19.01 ml/min; Glucose 193 mg/dL (74-106); Potassium 3.4 mmol/L (3.5-5.1); Sodium Level 127 mmol/L (136-145); Troponin-I HS 658 pg/mL (3.0-78.0)
[2023-10-04 07:50] LABS: Bacteria 0 SEEN /hpf (None Seen); Mucous, Urine 0 SEEN /hpf (<or=2+)
[2023-10-04 07:54] LABS: Color, Urine Yellow (Yellow); Glucose, Dipstick 1000 mg/dl (Normal); Ketone-Dipstick Negative (Negative); Leukocyte Esterase-Dipstick Negative /ul (Negative); Nitrite-Dipstick Negative (Negative); Occult Blood-Urine 50 /ul (Negative); Protein-Dipstick 500 mg/dl (Negative); Urine Bilirubin Dipstick Negative (Negative); Urine Clarity Clear (Clear); Urine Urobilinogen Normal (Normal)
[2023-10-04 08:08] LABS: Amorphous Sediment 1+; Red Blood Cells-Urine 0-5 SEEN /hpf (0-5); Squamous Epithelial Cells - UA 0-5 SEEN /hpf (0-5); White Blood Cells 5-10 SEEN /hpf (0-5)
--- OUTSIDE RECORDS SUMMARY | 2023-10-04 08:22 | XMS RPT_ITS | CCD ---
Author Name Unknown Address [address] [place] [address] Organization [facility] Care Team Providers Care Manual Plate Filler Name Role Phone VALERIANO STONER, DR HOWARD [...] Patient encounter procedure DR HOWARD BAL MD [facility] Start: 04-29-[address] HOWARD BAL MD Fa cility:B Start: 04-29-2022 End: 05-03-2022 Lab-Standing Order DR HOWARD [facility] Payers Date Payer Category Payer Medicare [id number] 2021 Unknown [id number] 1945 Unknown [id number] 1945 Unknown [id number] 1945 Unknown [id number] Progress note 11-01-2020 Note Date & Type Note Facility 11-01-2020 Note HNO ID: [id number] Author: Dakota Alfaro Service: ? Author Type: Physician Type: Progress Notes Filed: 11/01/2020 2:50 PM Note Text: Subjective: Patient is status post an upper and lower endoscopy. Completed at the [facility] in [place]. Biopsy of his duodenum was negative. Stomach [...] that point he will get it rescheduled. [facility] Progress note 10-22-2020 Note Date & Type Note Facility 10-22-2020 Note HNO ID: [id number] Author: Dakota Alfaro Service: ? Author Type: [...] UMBILICAL ARMEN,5+Y/O,REDUC ? ? - [facility] [place] [facility] ? ? - TRANSURETHRAL ELEC-SURG [...] HISTORY: FAMILY HI (more content not included)... [facility] Progress note 10-18-2020 Note Date & Type Note Facility 10-18-2020 Note HNO ID: [id number] Author: Patrick Olivier (Tech) Service: ? Author Type: Gutter Mouth Cutter Type: Progress Notes Filed: 10/18/2020 2:08 PM [...] DATE: October 18, 2020 TIME: 2:07 PM [facility] Progress note 10-18-2020 Note Date & Type Note Facility 10-18-2020 Note HNO ID: [id number] Author: Dakota Mir Alfaro Service: ? Author [...] - REPAIR UMBILICAL ARMEN,5+Y/O,REDUC - [facility] [place] [facility] - TRANSURETHRAL ELEC-SURG PROSTATECTOM Current [...] entered by the nurse and reviewed by ar Nursing Notes: Rozina Cifuentes RN 10/18/2020 9:13 AM Signed REVIEW OF SYSTEMS: General: The patient denies fatigue, notes weight loss, (more content not included)... [facility] Evaluation + Plan note Note Date & Type Note Facility Evaluation + Plan note No data available for this section [facility] Hospital Discharge instructions Note Date & Type Note Facility Hospital Discharge instructions No data available for this section [facility] Progress note Note Date & Type Note Facility Progress note No data available for this section [facility] Summary Purpose Family History No Family History Records FoundNo Family History Records Found Advance Directives No Advanced Directives Records FoundNo Advanced Directives Records Found Additional Source Comments (unrecognized sect ion and content) No Status Records FoundNo Status Records Found INFORMATION SOURCE (unrecogn ized section and content) DATE CREATED AUTHOR AUTHOR'S ORGANIZ ATION 04/27/2023 [facility] ([place]) Care Team (unrecognized sect ion and content) Care Team Personnel Name: HOWARD BAL MD Member Role: Primary Care Physician Address: Address: [place] [id number] [place] [address] Patient Care team informatio n (unrecognized section and content) Care Team Personnel Name: HOWARD BAL MD Member Role: Primary Care Physician Address: Address: [place] [id number] FOR RECORDS PERTAINING TO PATIENTS WHO [...] PRIMARY CLINICAL RECORDS. [facility] [id number] [facility]. provides no warranty or guarantee of the accuracy or completeness of information in this document.
--- NOTE | 2023-10-04 08:38 | EX.ED.DYSGE1 ---
HPI History of Present Illness Chief Complaint: Weakness Narrative Narrative: 78-year-old male presenting with weakness. History is given by the patient's family as he is too weak to even speak. He is able to open his eyes and hence requesting by head nods and shakes his head no. He has no specific complaints other than weakness. Family states he normally urinates 3 times at night but they could not get him out of bed to go to the restroom. They feel he is more sleepy than usual. They state that he has not complained to them about anything. Patient was seen yesterday and apparently had allergic reaction in which he was given epinephrine however he was not given Benadryl. He had a rash on his torso which is now resolved. Family states it is pruritic in nature. He had blood work drawn and although his troponins were elevated they trended downward and cardiology was consulted and patient was ultimately sent home. Patient's family states that they were unable to get him really to eat much. His pressures were little bit low yesterday but have not been as low again since he went home. Patient is end-stage renal disease on dialysis Thursday, Thursday, Thursday. He did go on Thursday but is not sure how much fluid they took off. Patient apparently is on a prednisone taper as well due to rheumatoid flareup. [facility] Medical History Abnormal ankle brachial index (LOKI) Acute hypoxic respiratory failure Anemia due to stage 3b chronic kidney disease Back pain BPH (benign prostatic hyperplasia) Cardiology follow-up encounter CHF NYHA class III Chronic combined systolic and diastolic CHF (congestive heart failure) Chronic kidney disease, stage 3b Chronic kidney disease, stage 4 (severe) Claudication Constipation CPAP (continuous positive airway pressure) dependence Diabetes Diarrhea Dietary restriction Elevated troponin (01/2021) Essential (primary) hypertension Gout Heartburn History of echocardiogram History of edema History of irregular heartbeat History of non-ST elevation myocardial infarction (NSTEMI) (07/25/21) History of pain when walking History of steroid therapy History of tobacco use HLD (hyperlipidemia) Hypertension Hypertrophic cardiomyopathy Hypokalemia Joint pain Lactic acidosis Left bundle branch block Leg cramps Leukocytosis Longstanding persistent atrial fibrillation Mitral valve insufficiency Night sweats 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 Obesity (BMI 30.0-34.9) KIMBERLY (obstructive sleep apnea) Persistent atrial fibrillation Poor appetite Presence of implantable pulmonary artery pressure and heart rate monitoring system (03/25/21) Renal infarct Restless legs Secondary pulmonary arterial hypertension Shortness of breath on exertion Wears glasses Home Medications finasteride 5 mg tablet 5 mg PO DAILY prostate 12/19/20 [History Last Taken 12/22/20] warfarin 2.5 mg tablet 5 mg PO .COMPLEX blood thinner 03/11/21 [History Last Taken 05/31/22] cyanocobalamin (vitamin B-12) 1,000 mcg tablet (Vitamin B-12) 1,000 mcg PO DAILY supplement 06/26/22 [History Last Taken Unknown] carvedilol 6.25 mg tablet 6.25 mg PO BID #60 tabs 05/13/23 [Rx Last Taken Unknown] dapagliflozin propanediol 10 mg tablet (Farxiga) 10 mg PO DAILY diabetes 08/29/23 [History Last Taken Unknown] gabapentin 100 mg capsule 100 mg PO QHS unsure 08/29/23 [History Last Taken Unknown] pantoprazole 40 mg tablet,delayed release 40 mg PO DAILY prevent stomach ulcers 08/29/23 [History Last Taken Unknown] allopurinol 100 mg tablet 200 mg (2 x 100 mg) PO DAILYCM #30 tabs 09/03/23 [Rx Last Taken Unknown] insulin glargine-yfgn 100 unit/mL (3 mL) subcutaneous pen 10 unit (0.1 mL) subcut DAILY #15 mL 09/03/23 [Rx Last Taken Unknown] pen needle, diabetic 33 gauge x 3/16 #100 ea 09/03/23 [Rx Last Taken Unknown] metolazone 2.5 mg tablet 2.5 mg PO .Thursday #8 tabs 09/09/23 [Rx Last Taken Unknown] epinephrine 0.3 mg/0.3 mL injection, auto-injector 0.3 mg (0.3 mL) IM Q4H PRN anaphylaxis #2 ea 10/03/23 [Rx Last Taken Unknown] bumetanide 0.5 mg tablet 0.5 mg PO BID 10/04/23 [History Last Taken Unknown] prednisone 20 mg tablet 30 mg PO .COMPLEX 10/04/23 [History Last Taken Unknown] Allergy/AdvReac Type Severity Reaction Status Date / Time rivaroxaban [From Xarelto] Allergy Bleeding Verified 10/03/23 13:11 metoprolol AdvReac bradycardia Verified 10/03/23 13:11 Family History Father Heart disease Sister Heart disease Brother Heart disease Other Arthritis CVA (cerebral vascular accident) Depression Mental disorder Surgical History History of appendectomy History of cataract extraction History of left heart catheterization (02/19/21) History of transurethral resection of prostate (01/2019) History of ventricular septal myectomy (2000) Hx of umbilical hernia repair Social History Smoking Status: Former smoker how long ago did patient quit smokin years ago 0.25ppd second hand exposure: Yes alcohol intake: never caffeine: Yes Type: coffee Number of servings: 1 what type of physical activity do you participate in: other details: treadmill frequency: daily ROS ROS ED Constitutional Constitutional ED: Denies chills, fever(s) or sweats Eyes Eyes: Denies blurry vision or change in vision ENT ENT ED: Denies ear pain or sore throat Cardiovascular Cardiovascular: Denies chest pain, palpitations or racing heartbeat Respiratory/Chest Respiratory/Chest: Denies cough, dyspnea or sputum Gastrointestinal Gastrointestinal: Denies abdominal pain, constipation, diarrhea, nausea or vomiting Genitourinary Genitourinary ED: Denies dysuria, hematuria or urinary frequency Musculoskeletal Musculoskeletal: Denies arthralgias, myalgias or neck pain Integumentary Denies abscess, Abrasions or rash Neurologic Neurologic: Denies headache(s), paresthesias or weakness Psychiatric Psychiatric: Denies anxiety, depression, suicidal ideation or suicidal thoughts Endocrine Endocrinology: Denies polydipsia or polyuria EXAM Physical Exam Const Vital Signs: 10/04/23 05:03 10/04/23 07:05 10/04/23 07:51 Temperature 99.0 F Temperature Source Temporal Pulse Rate 122 H 102 H 89 Respiratory Rate 18 24 H 28 H Blood Pressure 114/66 86/53 L Blood Pressure Mean 82 64 Pulse Ox 98 96 93 Oxygen Delivery Method Room Air Room Air Room Air Positive well nourished General Appearance ED: NAD; Negative for pallor HEENT Reports dry mucous membranes Mouth ED: Yes dry mucous membranes Mouth: dry mucous membranes Eyes PERRL and EOMs intact bilaterally General Eye ED: Negative for pale conjunctiva Chest Wall inspection of chest normal Resp normal respiratory effort and clear to auscultation bilaterally Auscultation: Negative for rales, rhonchi or wheezes Cardio regular rate and regular rhythm GI normal to inspection, nondistended, normoactive bowel sounds Neuro CN's II-XII intact bilaterally and no sensory deficits noted Sensorium / Orientation: alert Motor Exam: general weakness Psych mental status grossly normal Skin no rashes or lesions noted and no wounds General Skin Exam: Negative for jaundice or pallor MDM MDM MDM Narrative Medical decision making narrative: Patient presented with generalized weakness. Review the medical record yesterday showed an elevated heart enzymes. Today we obtained a CBC to assess white blood cell count, hemoglobin, platelets. BMP to assess renal function and electrolytes. High-sensitivity troponin EKG to assess for ischemia/splinting. PT/INR to assess for coagulopathy. Urinalysis to assess for UTI. White blood cell count has gone down and was 22,000 yesterday today at 16.7. Hemoglobin stable at 14.3. Platelets are low at 119. High-sensitivity troponin came back at 658. This is higher than both of his troponins yesterday. EKG on my interpretation shows sinus rhythm with left bundle branch block. No evidence of ischemia. Patient given 324 mg of aspirin. He will be admitted to the hospitalist. Impression: 1. Leukocytosis 2. Debility 3. Elevated troponin Lab Data Labs: Laboratory Results - last 24 hr 10/04/23 10/04/23 05:25 07:45 WBC 16.7 H RBC 4.98 Hgb 14.3 Hct 42.7 MCV 85.7 MCH 28.7 MCHC 33.5 RDW Std Deviation 44.6 H RDW Coeff of Kiersten 14.6 Plt Count 119 L MPV 12.2 H Immature Gran % (Auto) 2.600 H Neut % (Auto) 88.4 H Lymph % (Auto) 2.6 L [place] % (Auto) 5.9 Eos % (Auto) 0.0 Baso % (Auto) 0.5 Absolute Neuts (auto) 14.8 H Absolute Lymphs (auto) 0.43 L Nucleated RBC % 0.4 PT 36.7 H INR 3.6 Sodium 127 L Potassium 3.4 L Chloride 89 L Carbon Dioxide 28.0 Anion Gap 10 BUN 39 H Creatinine 2.96 H Estim Creat Clear Calc 19.01 Est GFR (MDRD) Af Amer 26 L Est GFR (MDRD) Non-Af 22 L BUN/Creatinine Ratio 13.2 Glucose 193 H Calcium 9.0 Troponin I High Sens 658 H* Urine Color Yellow Urine Clarity Clear Urine pH 6.0 Ur Specific [place] 1.010 Urine Protein 500 H Urine Glucose (UA) 1000 H Urine Ketones Negative Urine Occult Blood 50 H Urine Nitrite Negative Urine Bilirubin Negative Urine Urobilinogen Normal Ur Leukocyte Esterase Negative Urine RBC 0-5 SEEN Urine WBC 5-10 SEEN Ur Squamous Epith Cells 0-5 SEEN Amorphous Sediment 1+ Urine Bacteria 0 SEEN Urine Mucus 0 SEEN Radiography Diagnostic Testing: Clinical Impression(s) from Imaging Studies Chest X-Ray 10/04/23 06:06 IMPRESSION: 1. Low lung volumes with mild increased right hilar pulmonary vascular prominence and increased opacity obscuring the left lateral costophrenic angle. 2. Similar cardiomegaly. Stable right jugular catheter. Electronically Signed: April Stack MD at 7:15 EST , Discharge Plan Triage Chief Complaint: Weakness ED Provider: Isrrael Colon Dx/Rx/DC Orders Primary Care Provider: Howard Escobar
--- NOTE | 2023-10-04 08:40 | PCM.HP.STD ---
HPI - General General Date of Admission: 10/04/23 Date of Service: 10/04/23 Chief Complaint: Weakness [facility] Narrative ANTWAN GE, is a 78 M who presents with weakness. Patient was seen yesterday with hypotension and a rash on his abdomen. Concern was for anaphylaxis patient did receive epinephrine. Patient improved and was sent home. At home, patient was very weak and unable to go to the restroom. At baseline, patient can normally go to the restroomwithout difficulty and can even drive himself to and from dialysis without issues. This is a concerned the patient was brought to the hospital. At home, patient recently has been having some fevers but also has had decreased appetite. When patient did have a rash she did not have any swelling of his face mouth or tongue. Patient has recent been started on dialysis and has had 8 sessions thus far and has been doing well with the sessions. And has been recently treated for autoimmune workup which is to be further evaluated with rheumatology as outpatient. With that rheumatologic workup, patient has been started on steroids which have been started to be tapered down. [facility] Medical History Abnormal ankle brachial index (LOKI) Acute hypoxic respiratory failure Anemia due to stage 3b chronic kidney disease Back pain BPH (benign prostatic hyperplasia) Cardiology follow-up encounter CHF NYHA class III Chronic combined systolic and diastolic CHF (congestive heart failure) Chronic kidney disease, stage 3b Chronic kidney disease, stage 4 (severe) Claudication Constipation CPAP (continuous positive airway pressure) dependence Diabetes Diarrhea Dietary restriction Elevated troponin (01/2021) Essential (primary) hypertension Gout Heartburn History of echocardiogram History of edema History of irregular heartbeat History of non-ST elevation myocardial infarction (NSTEMI) (07/25/21) History of pain when walking History of steroid therapy History of tobacco use HLD (hyperlipidemia) Hypertension Hypertrophic cardiomyopathy Hypokalemia Joint pain Lactic acidosis Left bundle branch block Leg cramps Leukocytosis Longstanding persistent atrial fibrillation Mitral valve insufficiency Night sweats 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 Obesity (BMI 30.0-34.9) KIMBERLY (obstructive sleep apnea) Persistent atrial fibrillation Poor appetite Presence of implantable pulmonary artery pressure and heart rate monitoring system (03/25/21) Renal infarct Restless legs Secondary pulmonary arterial hypertension Shortness of breath on exertion Wears glasses Home Medications finasteride 5 mg tablet 5 mg PO DAILY prostate 12/19/20 [History Last Taken 12/22/20] warfarin 2.5 mg tablet 5 mg PO .COMPLEX blood thinner 03/11/21 [History Last Taken 05/31/22] cyanocobalamin (vitamin B-12) 1,000 mcg tablet (Vitamin B-12) 1,000 mcg PO DAILY supplement 06/26/22 [History Last Taken Unknown] carvedilol 6.25 mg tablet 6.25 mg PO BID #60 tabs 05/13/23 [Rx Last Taken Unknown] dapagliflozin propanediol 10 mg tablet (Farxiga) 10 mg PO DAILY diabetes 08/29/23 [History Last Taken Unknown] gabapentin 100 mg capsule 100 mg PO QHS unsure 08/29/23 [History Last Taken Unknown] pantoprazole 40 mg tablet,delayed release 40 mg PO DAILY prevent stomach ulcers 08/29/23 [History Last Taken Unknown] allopurinol 100 mg tablet 200 mg (2 x 100 mg) PO DAILYCM #30 tabs 09/03/23 [Rx Last Taken Unknown] insulin glargine-yfgn 100 unit/mL (3 mL) subcutaneous pen 10 unit (0.1 mL) subcut DAILY #15 mL 09/03/23 [Rx Last Taken Unknown] pen needle, diabetic 33 gauge x /16 #100 ea 09/03/23 [Rx Last Taken Unknown] metolazone 2.5 mg tablet 2.5 mg PO .Thursday #8 tabs 09/09/23 [Rx Last Taken Unknown] epinephrine 0.3 mg/0.3 mL injection, auto-injector 0.3 mg (0.3 mL) IM Q4H PRN anaphylaxis #2 ea 10/03/23 [Rx Last Taken Unknown] bumetanide 0.5 mg tablet 0.5 mg PO BID 10/04/23 [History Last Taken Unknown] prednisone 20 mg tablet 30 mg PO .COMPLEX 10/04/23 [History Last Taken Unknown] Allergy/AdvReac Type Severity Reaction Status Date / Time rivaroxaban [From Xarelto] Allergy Bleeding Verified 10/03/23 13:11 metoprolol AdvReac bradycardia Verified 10/03/23 13:11 Family History Father Heart disease Sister Heart disease Brother Heart disease Other Arthritis CVA (cerebral vascular accident) Depression Mental disorder Surgical History History of appendectomy History of cataract extraction History of left heart catheterization (02/19/21) History of transurethral resection of prostate (01/2019) History of ventricular septal myectomy (2000) Hx of umbilical hernia repair Social History Smoking Status: Former smoker how long ago did patient quit smokin years ago 0.25ppd second hand exposure: Yes alcohol intake: never caffeine: Yes Type: coffee Number of servings: 1 what type of physical activity do you participate in: other details: treadmill frequency: daily ROS ROS Narrative When patient had the rash, it was just an area on his left side of his abdomen and not noted elsewhere. Since the epinephrine, that rash has resolved. Patient does have bruising in his upper chest from his dialysis port placement. Denies chest pain. No abdominal pain. No sore throat or rhinitis. All review of systems were negative except as mentioned above in the history of present illness and the other review of systems. Vital Signs Vital Signs Vital Signs: 10/04/23 05:03 10/04/23 07:05 10/04/23 07:51 Temperature 37.2 C Temperature Source Temporal Pulse Rate 122 H 102 H 89 Respiratory Rate 18 24 H 28 H Blood Pressure 114/66 86/53 L Blood Pressure Mean 82 64 Pulse Ox 98 96 93 Oxygen Delivery Method Room Air Room Air Room Air Weight Weight: 76.6 kg Body Mass Index (BMI) 28.0 Physical Exam Const Constitutional Narrative: Awake. Listless. Appears very tired and nonverbal but does communicate by nodding or shaking his head. Afebrile. HEENT HEENT Narrative: Mucous membranes are dry Neck no lymphadenopathy Neck Narrative: No thyromegaly Resp normal respiratory effort, no retractions and no use of accessory muscles Cardio regular rate, regular rhythm, S1 normal heart sound and S2 normal heart sound GI normal to inspection, nondistended, normoactive bowel sounds, soft to palpation, non-tender and non-distended Extremity normal to inspection Skin Skin Narrative: No rash. Does have ecchymosis around his dialysis port right upper chest. Old bruising on his right upper extremity. Neuro moves all extremities Sensorium / Orientation: awake Results Lab / Micro Data Attestation: I reviewed the patient's lab results. 10/04/23 05:25 10/04/23 05:25 Labs: Laboratory Results - last 24 hr 10/04/23 05:25: WBC 16.7 H, RBC 4.98, Hgb 14.3, Hct 42.7, MCV 85.7, MCH 28.7, MCHC 33.5, RDW Std Deviation 44.6 H, RDW Coeff of Kiersten 14.6, Plt Count 119 L, MPV 12.2 H, Immature Gran % (Auto) 2.600 H, Neut % (Auto) 88.4 H, Lymph % (Auto) 2.6 L, [place] % (Auto) 5.9, Eos % (Auto) 0.0, Baso % (Auto) 0.5, Absolute Neuts (auto) 14.8 H, Absolute Lymphs (auto) 0.43 L, Nucleated RBC % 0.4, PT 36.7 H, INR 3.6, Sodium 127 L, Potassium 3.4 L, Chloride 89 L, Carbon Dioxide 28.0, Anion Gap 10, BUN 39 H, Creatinine 2.96 H, Estim Creat Clear Calc 19.01, Est GFR (MDRD) Af Amer 26 L, Est GFR (MDRD) Non-Af 22 L, BUN/Creatinine Ratio 13.2, Glucose 193 H, Calcium 9.0, Troponin I High Sens 658 H* 10/04/23 07:45: Urine Color Yellow, Urine Clarity Clear, Urine pH 6.0, Ur Specific [place] 1.010, Urine Protein 500 H, Urine Glucose (UA) 1000 H, Urine Ketones Negative, Urine Occult Blood 50 H, Urine Nitrite Negative, Urine Bilirubin Negative, Urine Urobilinogen Normal, Ur Leukocyte Esterase Negative, Urine RBC 0-5 SEEN, Urine WBC 5-10 SEEN, Ur Squamous Epith Cells 0-5 SEEN, Amorphous Sediment 1+, Urine Bacteria 0 SEEN, Urine Mucus 0 SEEN EKG Initial EKG: Attestation: I personally reviewed and interpreted this EKG as follows: Prior EKG tracings: available for review (Left bundle branch block. No acute changes.) Imaging Radiology Impression Chest X-Ray 10/04/23 06:06 IMPRESSION: 1. Low lung volumes with mild increased right hilar pulmonary vascular prominence and increased opacity obscuring the left lateral costophrenic angle. 2. Similar cardiomegaly. Stable right jugular catheter. Electronically Signed: April Stack MD at 7:15 EST , Assessment & Plan Assessment/Plan (1) Adrenal crisis: (2) Transient hypotension: (3) Rash: (4) Debility: PLAN: Plan Adrenal crisis Suspected given the patient's listlessness, fatigue, anorexia and hypotension. Patient steroids have been weaned since last month for the unspecified rheumatologic condition Will hold off on the prednisone and initiate hydrocortisone 100 mg x 1 and then 50 mg IV every 6 hours. Eventually would resume the steroid taper once his blood pressure and symptoms are improved. I would resume it at 40 mg and then taper down to the 20 mg where he was at most recently. Patient was having some fevers at home so we will check a viral panel for respiratory viruses. Elevated troponins Chronically elevated troponins, however they have been trending upwards. Unclear significance but patient is denying any chest pain at this time. Will continue to monitor those. Check 2D echocardiogram. If there is evidence of wall motion abnormalities that are new, would consider cardiology consult. Echocardiogram from 08/27/2023 showed an EF of 50 to 55%. Patient is already anticoagulated. Hypertension: I suspect adrenal crisis and will be on hydrocortisone Will give the patient 500 cc of normal saline. Debility I suspect it is related to above PT OT evaluate and treat According to patient son, patient has good performance status and has been driving himself to and from dialysis and normally can get up and go to the bathroom on his own without difficulty. Hopefully with correction of the adrenal crisis that that will improve the patient will do well to be able to go home safely when he is medically ready. End-stage renal disease On dialysis Thursday Due to dialysis. Will consult nephrology to continue with that as patient will be due for dialysis on the fifth. Rash Unclear significance I doubt patient was undergoing anaphylaxis due to medication. There was concern that this could have been related with carvedilol causing anaphylaxis. I will continue with the carvedilol and patient will be monitored here closely if he does have any issues and we can certainly evaluate that in real-time and determine where not carvedilol is the true cause of his symptoms. I suspect it is not but will monitor. Diabetes mellitus type 2 Continue with Farxiga. Sliding scale insulin. previous a1c 7.2. Atrial fibrillation Carvedilol as blood pressure permits. Warfarin on hold for today. Follow-up INR as INR is supratherapeutic today. Supratherapeutic INR Patient takes warfarin but complicated by poor oral intake. No bleeding that would warrant any treatment at this time. Will allow to passively go down. Follow-up INR. Tentatively I have his warfarin scheduled to be resumed tomorrow, however if it still elevated, and obviously need to be held. VTE prophylaxis: Not indicated as patient is already anticoagulated. CODE STATUS: Addressed with the patient as well as his family. Patient is to be DNR Comfort Care arrest no intubation. Charges/Coding Visit Charges Inpatient E&M: 47203 Init Hosp L3
--- OUTSIDE RECORDS SUMMARY | 2023-10-04 09:03 | XMS RPT_ITS | CCD ---
Author Name Unknown Address [address] [place] [address] Organization [facility] Care Team Providers Care Professor Of Physical Education Name Role Phone VALERIANO STONER, DR HOWARD Ville[place] Primary Care Physician rEika BAL MD, DR HOWARD [place]illela Attending Katina [...] Patient encounter procedure DR HOWARD BAL MD [facility] Start: 04-29-[address] HOWARD BAL MD Fa cility:B Start: 04-29-2022 End: 05-03-2022 Lab-Standing Order DR HOWARD [facility] Payers Date Payer Category Payer Medicare [id number] 2021 Unknown [id number] 1945 Unknown [id number] 1945 Unknown [id number] 1945 Unknown [id number] Progress note 11-01-2020 Note Date & Type Note Facility 11-01-2020 Note HNO ID: [id number] Author: Dakota Alfaro Service: ? Author Type: Physician Type: Progress Notes Filed: 11/01/2020 2:50 PM Note Text: Subjective: Patient is status post an upper and lower endoscopy. Completed at the [facility] in [place]. Biopsy of his duodenum was negative. Stomach [...] point he will get it rescheduled. [facility] Progress note 10-22-2020 Note Date & Type Note Facility 10-22-2020 Note HNO ID: [id number] Author: Dakota Alfaro Service: ? Author Type: [...] UMBILICAL ARMEN,5+Y/O,REDUC ? ? - [facility] ? [...] FAMILY HI (more content not included)... [facility] Progress note 10-18-2020 Note Date & Type Note Facility 10-18-2020 Note HNO ID: [id number] Author: Patrick Olivier (Tech) Service: ? Author Type: Upset Operator Type: Progress Notes Filed: 10/18/2020 2:08 [...] October 18, 2020 TIME: 2:07 PM [facility] Progress note 10-18-2020 Note Date & Type Note Facility 10-18-2020 Note HNO ID: [id number] Author: Dakota Mir Alfaro Service: ? Author [...] - REPAIR UMBILICAL ARMEN,5+Y/O,REDUC - [facility] [place] TRANSURETHRAL [...] weight loss, (more content not included)... [facility] Evaluation + Plan note Note Date & Type Note Facility Evaluation + Plan note No data available for this section [facility] Hospital Discharge instructions Note Date & Type Note Facility Hospital Discharge instructions No data available for this section [facility] Progress note Note Date & Type Note Facility Progress note No data available for this section [facility] Summary Purpose Family History No Family [...] Member Role: Primary Care Physician Address: Address: [place] [id number] [place] [address] Patient Care team informatio n (unrecognized section and content) Care Team Personnel Name: HOWARD BAL MD Member Role: Primary Care Physician Address: Address: [place] [id number] FOR RECORDS PERTAINING TO PATIENTS WHO [...] THE PRIMARY CLINICAL RECORDS. [facility] [employer] [facility]. provides no warranty or guarantee of the accuracy or completeness of information in this document.
[2023-10-04] MEDS: 0.9% Normal Saline (1000mL) 1,000 ML 150 ML IV ×2 (09:54→14:25)
[2023-10-04] MEDS: Pantoprazole Sodium 40 MG Tablet PO (10:26)
[2023-10-04] MEDS: Finasteride 5 MG Tablet PO (10:26)
[2023-10-04 10:28] LABS: Bedside Glucose 188 mg/dL (74-106)
[2023-10-04] MEDS: Aspirin 81 MG TAB.CHEW 324 MG PO (10:31)
[2023-10-04] MEDS: Hydrocortisone Sod Succinate 100 MG/2 ML Vial IV (10:32)
--- NOTE | 2023-10-04 14:02 | PN.HOSP_ITS ---
Hospitalist Note Patient's respiratory panel was negative. COVID-19, influenza and RSV were negative. Patient did receive a dose of 500 mg of hydrocortisone blood pressure still is low. With the plaints of the fever that he was having earlier, I would have a low threshold to treat him for an underlying infection. Will initiate vancomycin and pip-tazo. Check blood cultures. Urinalysis here was negative. Chest x-ray did not show any signs of pneumonia. Patient does have a dialysis catheter in his right chest. No clear signs of infection at this time. Still I feel the patient may have potential adrenal crisis and will continue with the hydrocortisone for now. Concerning that patient may also have underlying sepsis with his low blood pressure, change mental status which is just more lethargic and listless. Patient not a candidate for 30 cc/kg of IV fluids given his end- stage renal disease but we will give him another 500 cc of IV fluid as he was clinically dry earlier.
[2023-10-04 14:52] LABS: Troponin-I HS 800 pg/mL (3.0-78.0)
[2023-10-04] MEDS: Vancomycin HCl 2,000 MG in 0.9% Normal Saline (500mL Bag) 500 ML 250 MG IV (15:09)
--- NOTE | 2023-10-04 15:59 | EX.PCM.CONCC ---
Assessment & Plan Assessment/Plan (1) Hypotension: PLAN: Plan #Shock, septic vs other #Fever, unclear etiology #Elevated troponin/NSTEMI #?Adrenal insufficiency #ESRD on HD #Hyponatremia #Hypokalemia #HFpEF #PH #Autoimmune disease; unclear etiology #AF on warfarin #DM -Titrate O2 to keep sats ~92%; currently on 3L NC; get ABG to exclude worsening hypercapnic acidosis in the setting of acute illness -SP limited fluid bolus due to concomittant HF; would get CVC; start NEpi to keep MAP > 65; cont stress doses steroids & add scheduled albumin x4 doses; TTE to exclude cardiac causes -Agree with emp IV Abx; would also get CT chest/abd/pelvis to look for sources of sepsis -Trend Tara; consider cardiology consult -Nephrology consult to manage ESRD & HD needs -Check TSH, complement levels -Cont home warfarin but monitor levels carefully and may need to switch to hep gtt -SSI for goal BG 140-180 mg/dL PO diet Warfarin Guarded prognosis CCT: 60 min The entirety of this encounter was completed via telemedicine. 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 He had been seen recently for localized abdominal rash and sent home after receiving Epi for possible anaphylactic/allergic process but with on-going symptoms. Patient had been on tapering steroids (from 60 mg qD) as an outpatient for autoimmune disease. He was admitted for further management and started on stress dose steroids but despite this and limited fluid boluses he continued to be hypotensive and lethargic which prompted critical care consult this afternoon. He has additionally had fever. Resp viral panel/COVID/Flu negative. He has now been started on broad spectrum emp IV Abx- vanc/Zosyn- per hospitalist. [facility] Medical History Abnormal ankle brachial index (LOKI) Acute hypoxic respiratory failure Anemia due to stage 3b chronic kidney disease Back pain BPH (benign prostatic hyperplasia) Cardiology follow-up encounter CHF NYHA class III Chronic combined systolic and diastolic CHF (congestive heart failure) Chronic kidney disease, stage 3b Chronic kidney disease, stage 4 (severe) Claudication Constipation CPAP (continuous positive airway pressure) dependence Diabetes Diarrhea Dietary restriction Elevated troponin (01/2021) Essential (primary) hypertension Gout Heartburn History of echocardiogram History of edema History of irregular heartbeat History of non-ST elevation myocardial infarction (NSTEMI) (07/25/21) History of pain when walking History of steroid therapy History of tobacco use HLD (hyperlipidemia) Hypertension Hypertrophic cardiomyopathy Hypokalemia Joint pain Lactic acidosis Left bundle branch block Leg cramps Leukocytosis Longstanding persistent atrial fibrillation Mitral valve insufficiency Night sweats 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 Obesity (BMI 30.0-34.9) KIMBERLY (obstructive sleep apnea) Persistent atrial fibrillation Poor appetite Presence of implantable pulmonary artery pressure and heart rate monitoring system (03/25/21) Renal infarct Restless legs Secondary pulmonary arterial hypertension Shortness of breath on exertion Wears glasses Home Medications finasteride 5 mg tablet 5 mg PO DAILY prostate 12/19/20 [History Last Taken 12/22/20] warfarin 2.5 mg tablet 5 mg PO .COMPLEX blood thinner 03/11/21 [History Last Taken 05/31/22] cyanocobalamin (vitamin B-12) 1,000 mcg tablet (Vitamin B-12) 1,000 mcg PO DAILY supplement 06/26/22 [History Last Taken Unknown] carvedilol 6.25 mg tablet 6.25 mg PO BID #60 tabs 05/13/23 [Rx Last Taken Unknown] dapagliflozin propanediol 10 mg tablet (Farxiga) 10 mg PO DAILY diabetes 08/29/23 [History Last Taken Unknown] gabapentin 100 mg capsule 100 mg PO QHS unsure 08/29/23 [History Last Taken Unknown] pantoprazole 40 mg tablet,delayed release 40 mg PO DAILY prevent stomach ulcers 08/29/23 [History Last Taken Unknown] allopurinol 100 mg tablet 200 mg (2 x 100 mg) PO DAILYCM #30 tabs 09/03/23 [Rx Last Taken Unknown] insulin glargine-yfgn 100 unit/mL (3 mL) subcutaneous pen 10 unit (0.1 mL) subcut DAILY #15 mL 09/03/23 [Rx Last Taken Unknown] pen needle, diabetic 33 gauge x 3/16 #100 ea 09/03/23 [Rx Last Taken Unknown] metolazone 2.5 mg tablet 2.5 mg PO .Thursday #8 tabs 09/09/23 [Rx Last Taken Unknown] epinephrine 0.3 mg/0.3 mL injection, auto-injector 0.3 mg (0.3 mL) IM Q4H PRN anaphylaxis #2 ea 10/03/23 [Rx Last Taken Unknown] bumetanide 0.5 mg tablet 0.5 mg PO BID 10/04/23 [History Last Taken Unknown] prednisone 20 mg tablet 30 mg PO .COMPLEX 10/04/23 [History Last Taken Unknown] Allergy/AdvReac Type Severity Reaction Status Date / Time metoprolol AdvReac bradycardia Verified 10/03/23 13:11 rivaroxaban [From Xarelto] AdvReac Bleeding Verified 10/04/23 15:42 Family History Father Heart disease Sister Heart disease Brother Heart disease Other Arthritis CVA (cerebral vascular accident) Depression Mental disorder Surgical History History of appendectomy History of cataract extraction History of left heart catheterization (02/19/21) History of transurethral resection of prostate (01/2019) History of ventricular septal myectomy (2000) Hx of umbilical hernia repair Social History Smoking Status: Former smoker how long ago did patient quit smokin years ago 0.25ppd second hand exposure: Yes alcohol intake: never caffeine: Yes Type: coffee Number of servings: 1 what type of physical activity do you participate in: other details: treadmill frequency: daily Physical Exam Narrative General: Well developed, in no distress HEENT: anicteric Sclera, nl nose; dry oral mucosa; supple neck, no masses Cardiovascular: tachy; S1/S2; No rubs, gallops; no displaced PM Respiratory: diminished; no crackles, wheezes, or rhonchi Abdominal: Non-tender; Non distended; hypoBS x 4; No Hepatosplenomegaly Extremities: Warm, well perfused; No clubbing, cyanosis; capillary refill > 2 sec Skin: intact, no rashes at present Neurological: lethargic but arouses; no gross deficits appreciated Lab / Micro Data 10/04/23 05:25 10/04/23 05:25 Labs: Laboratory Results - last 24 hr 10/04/23 05:25: WBC 16.7 H, RBC 4.98, Hgb 14.3, Hct 42.7, MCV 85.7, MCH 28.7, MCHC 33.5, RDW Std Deviation 44.6 H, RDW Coeff of Kiersten 14.6, Plt Count 119 L, MPV 12.2 H, Immature Gran % (Auto) 2.600 H, Neut % (Auto) 88.4 H, Lymph % (Auto) 2.6 L, [place] % (Auto) 5.9, Eos % (Auto) 0.0, Baso % (Auto) 0.5, Absolute Neuts (auto) 14.8 H, Absolute Lymphs (auto) 0.43 L, Nucleated RBC % 0.4, PT 36.7 H, INR 3.6, Sodium 127 L, Potassium 3.4 L, Chloride 89 L, Carbon Dioxide 28.0, Anion Gap 10, BUN 39 H, Creatinine 2.96 H, Estim Creat Clear Calc 19.01, Est GFR (MDRD) Af Amer 26 L, Est GFR (MDRD) Non-Af 22 L, BUN/Creatinine Ratio 13.2, Glucose 193 H, Calcium 9.0, Troponin I High Sens 658 H* 10/04/23 07:45: Urine Color Yellow, Urine Clarity Clear, Urine pH 6.0, Ur Specific [place] 1.010, Urine Protein 500 H, Urine Glucose (UA) 1000 H, Urine Ketones Negative, Urine Occult Blood 50 H, Urine Nitrite Negative, Urine Bilirubin Negative, Urine Urobilinogen Normal, Ur Leukocyte Esterase Negative, Urine RBC 0-5 SEEN, Urine WBC 5-10 SEEN, Ur Squamous Epith Cells 0-5 SEEN, Amorphous Sediment 1+, Urine Bacteria 0 SEEN, Urine Mucus 0 SEEN 10/04/23 10:08: POC Glucose 188 H 10/04/23 14:20: Troponin I High Sens 800 H* Micro: Microbiology 10/04/23 10:37 Mucosa - Nose Respiratory Panel (PCR) - Final 10/04/23 10:18 Mucosa - Nose SARS-CoV-2, Influenza & RSV (PCR) - Final Imaging Radiology Impression Chest X-Ray 10/04/23 06:06 IMPRESSION: 1. Low lung volumes with mild increased right hilar pulmonary vascular prominence and increased opacity obscuring the left lateral costophrenic angle. 2. Similar cardiomegaly. Stable right jugular catheter. Electronically Signed: April Stack MD at 7:15 EST ,
--- NOTE | 2023-10-04 16:11 | ECHOCS_ITS ---
Reason For Study: CHF Procedure This was a 2D Doppler, Color Flow transthoracic echocardiogram. The study was technically difficult. Exam performed portable in ICU/CCU. Left Ventricle Normal LV size. Mild concentric left ventricular hypertrophy. Severe anterior hypokinesis. Estimated ejection fraction 40%. At least grade 2 diastolic dysfunction. Right Ventricle Normal right ventricle. Atria There is severe biatrial dilatation. Mitral Valve Mild-Moderate (1-2+) mitral valve insufficiency. Tricuspid Valve Moderately severe (3+) tricuspid valve insufficiency. Right ventricular systolic pressure estimated to be 66 mmHg. Aortic Valve Mild (1+) aortic valve insufficiency. Pulmonic Valve The pulmonic valve is not well visualized. Mild (1+) pulmonic valve insufficiency. Great Vessels Aortic root atherosclerotic and calcified. Medication Diluted definity 1ml given slow IV push to enhance endocardial definition. MMode/2D Measurements & Calculations LVIDd: 4.7 cm IVSd: 1.2 cm LVOT diam: 2.0 cm LVIDs: 3.6 cm LVPWd: 1.3 cm LVOT area: 3.1 cm2 RVDd: 3.9 cm FS: 22.9 % Ao root diam: 3.6 cm LAV(MOD-bp): 100.5 ml LVAd ap4: 30.9 cm2 LAV(MOD-bp) Indexed: 55.0 ml/m2 LVLd ap4: 6.8 cm LAV(MOD-sp2): 85.9 ml EDV(MOD-sp4): 118.4 ml LAV(MOD-sp4): 105.9 ml EDV(sp4-el): 119.8 ml LVAs ap4: 22.7 cm2 LVLs ap4: 6.3 cm ESV(MOD-sp4): 72.2 ml ESV(sp4-el): 69.2 ml EF(MOD-sp4): 39.1 % EF(sp4-el): 42.2 % LVAd ap2: 26.1 cm2 SV(MOD-sp4): 46.2 ml SV(MOD-sp2): 40.0 ml LVLd ap2: 6.9 cm EDV(MOD-sp2): 81.5 ml EDV(sp2-el): 83.8 ml LVAs ap2: 17.4 cm2 LVLs ap2: 6.0 cm ESV(MOD-sp2): 41.4 ml ESV(sp2-el): 42.5 ml EF(MOD-sp2): 49.2 % SV(sp4-el): 50.6 ml LA dimension(2D): 6.1 cm LA A4 area: 31.5 cm2 RA A4 area: 23.0 cm2 Doppler Measurements & Calculations MV E max babar: 98.0 cm/sec Lat Peak E' Babar: 8.9 cm/sec Med Peak E' Babar: 4.2 cm/sec E/E' lat: 11.1 E/E' med: 23.2 Ao V2 max: 199.5 cm/sec LV V1 max: 131.8 cm/sec SV(LVOT): 67.8 ml Ao max P.9 mmHg LV V1 max P.0 mmHg Ao V2 mean: 107.6 cm/sec LV V1 mean P.8 mmHg Ao mean P.9 mmHg LV V1 mean: 76.2 cm/sec Ao V2 VTI: 31.5 cm LV V1 VTI: 22.1 cm AV (velocity ratio): 0.70 LUCHO(I,D): 2.2 cm2 LUCHO(V,D): 2.0 cm2 PA V2 max: 95.1 cm/sec TR max babar: 358.1 cm/sec TR max P.3 mmHg ECHO/Echo Complete W/ Contrast Interpretation Summary Mild concentric left ventricular hypertrophy. Severe anterior hypokinesis. Estimated ejection fraction 40%. At least grade 2 diastolic dysfunction. Mild-Moderate (1-2+) mitral valve insufficiency. Moderately severe (3+) tricuspid valve insufficiency. Right ventricular systolic pressure estimated to be 66 mmHg. Mild (1+) aortic valve insufficiency. Mild (1+) pulmonic valve insufficiency. Aortic root atherosclerotic and calcified. Ordering Physician: Gurdeep De Luna Referring Physician: Howard Escobar Performed By: Nila Lujan, AURE
--- NOTE | 2023-10-04 16:39 | CT_ITS ---
EXAM: CT CHEST, ABDOMEN AND PELVIS WITHOUT INTRAVENOUS CONTRAST CLINICAL INDICATION: sepsis unclear origin TECHNIQUE: Helically acquired images were obtained of the chest, abdomen and pelvis without intravenous contrast. This CT exam was performed using one or more of the following dose reduction techniques: automated exposure control, adjustment of the mA and/or kV according to patient size, and/or use of iterative reconstruction technique. COMPARISON: CT chest, 08/29/2023; CT abdomen and pelvis, 01/17/2021. FINDINGS: CHEST: LUNGS AND PLEURAL SPACES: There are innumerable scattered pulmonary nodules bilaterally, the largest measuring up to approximately 8 mm. No pleural effusion or thickening. No pneumothorax. HEART: Coronary artery calcifications. Cardiomegaly. No pericardial effusion. MEDIASTINUM: No significant abnormality. No mediastinal or hilar adenopathy. Esophagus is unremarkable. No hiatal hernia. THYROID: No significant abnormality. No thyroid lesions. ABDOMEN: LIVER: No significant abnormality. Homogeneous. GALLBLADDER AND BILE DUCTS: Cholelithiasis without secondary signs of cholecystitis. No intra- or extrahepatic biliary ductal dilation. PANCREAS: No significant abnormality. No focal cystic mass. SPLEEN: Splenic granulomas. Otherwise, the spleen appears normal. ADRENALS: No significant abnormality. No nodules. KIDNEYS AND URETERS: Atrophic changes of the right kidney. No hydronephrosis or obstructive urolithiasis. STOMACH AND BOWEL: Colonic diverticulosis. No discrete evidence of acute diverticulitis. No stomach or bowel distention. PELVIS: APPENDIX: A normal appendix is not discretely visualized. BLADDER: No significant abnormality. REPRODUCTIVE: Prostatomegaly. CHEST, ABDOMEN and PELVIS: INTRAPERITONEAL SPACE: No significant abnormality. No ascites or other fluid collection. No free air. BONES/JOINTS: SI joint ankylosis and multilevel vertebral ankylosis suggesting ankylosing spondylitis. Degenerative changes in the axial and appendicular skeleton. Status post median sternotomy. No suspicious lytic or blastic abnormality. SOFT TISSUES: No significant abnormality. No discrete abdominal or pelvic wall hernia. VASCULATURE: Atherosclerosis of the aorta and its branch vessels. Aorta is non-dilated. LYMPH NODES: No significant abnormality. No enlarged lymph nodes. TUBES, LINES AND DEVICES: Right-sided hemodialysis catheter. CT/CT Chest, Abd, Pelvis WO Cont IMPRESSION: 1. There are innumerable scattered pulmonary nodules bilaterally, the largest measuring up to approximately 8 mm. These were not appreciable on the prior CT chest and may very well be infectious/inflammatory. Fleischner Society Guidelines (MacMahon, et al. Radiology 2017; 284(1):228-43) suggest the following. For low-risk patients recommend follow-up chest CT at 3-6 months. If unchanged consider an additional follow-up CT at 18-24 months. For high-risk patients initial follow-up chest CT at 3-6 months and if unchanged, 18-24 months. 2. Cholelithiasis without secondary signs of cholecystitis. 3. Atrophic changes of the right kidney. No hydronephrosis or obstructive urolithiasis. 4. Prostatomegaly. 5. Coronary artery calcifications. Cardiomegaly. No pericardial effusion. 6. Colonic diverticulosis. No discrete evidence of acute diverticulitis. 7. Findings suggestive of ankylosing spondylitis. No acute osseous findings. Electronically Signed: Stephen Vital DO at 18:02 EST ,
[2023-10-04 17:12] LABS: Allen Test Positive; Base Excess 2 mmol/L (-2 to +2); Bicarbonate 24.6 mmol/L (22-26); Blood Gas Specimen Type ART; Mode Not entered; O2 Delivery Device Cannula; PO2 116 mmHG (75-100); SITE L Brach; SO2 99 % (95-99); Total Carbon Dioxide 26 mmol/L; pCO2 29.3 mmHg (35-45); pH 7.53 (7.35-7.45)
[2023-10-04 17:44] LABS: Thyroid Stim Hormone (TSH) 0.26 uIU/mL (0.358-3.74)
--- NOTE | 2023-10-04 17:57 | PCM.CONS.R ---
Assessment & Plan Assessment/Plan (1) ESRD (end stage renal disease): (2) Hyponatremia: (3) Hypotension: PLAN: Plan Impression/Plan: 78-year-old man who is known to our service for ESRD, type 2 diabetes mellitus, hypertension, CAD, HFpEF with diastolic dysfunction, moderate pulmonary hypertension, KIMBERLY, and hyperlipidemia. The patient presents to the hospital with hypotension/circulatory shock which is being investigated. Nephrology is following for ESRD and dialysis management. ESRD. The patient recently started dialysis on 09/17/2023. The patient dialyzes at [facility] dialysis later on MWF schedule. He is followed here by my partner, Dr. Barahona. The patient was last dialyzed on 10/02/2023 prior to admission. Dialysis went well without hypotension, and he felt well after dialysis. There is no need for hemodialysis today. The patient is on low-dose IV vasopressor. We will dialyze the patient tomorrow. Will assess to see whether he would tolerate IHD. At this point, I think he will tolerate IHD since he is only on low-dose of IV norepinephrine. Hyponatremia. The patient has serum sodium of 126 mmol/L on 10/03/2023. Serum sodium is stable today at 127 mmol/L. There is no symptoms of hyponatremia such as headache, confusion or nausea. There is no need for hypertonic saline. I suspect hyponatremia is secondary to ESRD and lack of solute intake. Serum sodium should improve with hemodialysis tomorrow. Circulatory shock. The patient is being covered with IV hydrocortisone for adrenal insufficiency. He is also being treated for sepsis with empiric antimicrobial. There is no evidence of exit site infection of TDC. Nevertheless, blood culture should be sent to make sure there is no bloodstream infection related to TDC. Will defer treatment and investigation of sepsis to hospital medicine and critical care services. HPI Consult Data Date of Consult: 10/04/23 HPI Narrative Reason for Consultation: ESRD. HPI Narrative: The patient is a 78-year-old man who is known to our service for ESRD, type 2 diabetes mellitus, hypertension, CAD, HFpEF with diastolic dysfunction, moderate pulmonary hypertension, KIMBERLY, and hyperlipidemia. The patient recently started dialysis on 09/17/2023. The patient dialyzes at [facility] dialysis later on MWF schedule. He is followed here by my partner, Dr. Barahona. The patient presents to the hospital on 10/03/2023 with hypotension and abdominal rash. There is concern for anaphylaxis, so the patient received epinephrine. He was sent home but remained weak and unable to mobilize on his own. The patient returned to hospital and was found to be hypotensive. BP decreased to 74/40 mmHg at 2:27 PM this afternoon, so the patient was moved to MICU. The patient has been started on stress dose corticosteroids with hydrocortisone 50 mg IV every 6 hours. He has also been started on IV vasopressor. The patient denies current chest pain, shortness of breath, or nausea. He remains fatigued. There is no edema to lower extremities. [facility] Medical History Abnormal ankle brachial index (LOKI) Acute hypoxic respiratory failure Anemia due to stage 3b chronic kidney disease Back pain BPH (benign prostatic hyperplasia) Cardiology follow-up encounter CHF NYHA class III Chronic combined systolic and diastolic CHF (congestive heart failure) Chronic kidney disease, stage 3b Chronic kidney disease, stage 4 (severe) Claudication Constipation CPAP (continuous positive airway pressure) dependence Diabetes Diarrhea Dietary restriction Elevated troponin (01/2021) Essential (primary) hypertension Gout Heartburn History of echocardiogram History of edema History of irregular heartbeat History of non-ST elevation myocardial infarction (NSTEMI) (07/25/21) History of pain when walking History of steroid therapy History of tobacco use HLD (hyperlipidemia) Hypertension Hypertrophic cardiomyopathy Hypokalemia Joint pain Lactic acidosis Left bundle branch block Leg cramps Leukocytosis Longstanding persistent atrial fibrillation Mitral valve insufficiency Night sweats 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 Obesity (BMI 30.0-34.9) KIMBERLY (obstructive sleep apnea) Persistent atrial fibrillation Poor appetite Presence of implantable pulmonary artery pressure and heart rate monitoring system (03/25/21) Renal infarct Restless legs Secondary pulmonary arterial hypertension Shortness of breath on exertion Wears glasses Home Medications finasteride 5 mg tablet 5 mg PO DAILY prostate 12/19/20 [History Last Taken 12/22/20] warfarin 2.5 mg tablet 5 mg PO .COMPLEX blood thinner 03/11/21 [History Last Taken 05/31/22] cyanocobalamin (vitamin B-12) 1,000 mcg tablet (Vitamin B-12) 1,000 mcg PO DAILY supplement 06/26/22 [History Last Taken Unknown] carvedilol 6.25 mg tablet 6.25 mg PO BID #60 tabs 05/13/23 [Rx Last Taken Unknown] dapagliflozin propanediol 10 mg tablet ([place]) 10 mg PO DAILY diabetes 08/29/23 [History Last Taken Unknown] gabapentin 100 mg capsule 100 mg PO QHS unsure 08/29/23 [History Last Taken Unknown] pantoprazole 40 mg tablet,delayed release 40 mg PO DAILY prevent stomach ulcers 08/29/23 [History Last Taken Unknown] allopurinol 100 mg tablet 200 mg (2 x 100 mg) PO DAILYCM #30 tabs 09/03/23 [Rx Last Taken Unknown] insulin glargine-yfgn 100 unit/mL (3 mL) subcutaneous pen 10 unit (0.1 mL) subcut DAILY #15 mL 09/03/23 [Rx Last Taken Unknown] pen needle, diabetic 33 gauge x 3/16 #100 ea 09/03/23 [Rx Last Taken Unknown] metolazone 2.5 mg tablet 2.5 mg PO .Thursday #8 tabs 09/09/23 [Rx Last Taken Unknown] epinephrine 0.3 mg/0.3 mL injection, auto-injector 0.3 mg (0.3 mL) IM Q4H PRN anaphylaxis #2 ea 10/03/23 [Rx Last Taken Unknown] bumetanide 0.5 mg tablet 0.5 mg PO BID 10/04/23 [History Last Taken Unknown] prednisone 20 mg tablet 30 mg PO .COMPLEX 10/04/23 [History Last Taken Unknown] Allergy/AdvReac Type Severity Reaction Status Date / Time metoprolol AdvReac bradycardia Verified 10/03/23 13:11 rivaroxaban [From Xarelto] AdvReac Bleeding Verified 10/04/23 15:42 Family History Father Heart disease Sister Heart disease Brother Heart disease Other Arthritis CVA (cerebral vascular accident) Depression Mental disorder Surgical History History of appendectomy History of cataract extraction History of left heart catheterization (02/19/21) History of transurethral resection of prostate (01/2019) History of ventricular septal myectomy (2000) Hx of umbilical hernia repair Social History Smoking Status: Former smoker how long ago did patient quit smokin years ago 0.25ppd second hand exposure: Yes alcohol intake: never caffeine: Yes Type: coffee Number of servings: 1 what type of physical activity do you participate in: other details: treadmill frequency: daily ROS ROS Narrative ROS was done and is as per HPI. Otherwise noncontributory. Physical Exam Narrative General: Alert and oriented x3, NAD. HEENT: Normocephalic, atraumatic. Mucous membrane moist without erythema. PERRLA, EOMI. Hearing is intact. Neck: Supple, no JVD. Trachea is midline. No thyromegaly or lymphadenopathy. TDC site is clean and dry. There is no drainage from exit site. There is no pain with palpation of the tunnel tract. Cardiovascular: Normal S1, S2. No rubs, murmurs, or gallops. Respiratory: Lungs are clear to auscultation bilaterally. No wheezing, rhonchi, or rales. Abdomen: Normal bowel sounds, soft, nontender, no guarding or rebound, no organomegaly. Extremities: No clubbing, cyanosis, or edema. Musculoskeletal: Full passive range of motion, no joint swelling. Psychiatric: Normal mood and affect. Skin: Warm and dry, no rash. Neurologic: Cranial nerve II to XII are grossly intact. No focal neurologic deficits. Lab / Micro Data 10/04/23 05:25 10/04/23 05:25 Labs: Laboratory Results - last 24 hr 10/04/23 05:25: WBC 16.7 H, RBC 4.98, Hgb 14.3, Hct 42.7, MCV 85.7, MCH 28.7, MCHC 33.5, RDW Std Deviation 44.6 H, RDW Coeff of Kiersten 14.6, Plt Count 119 L, MPV 12.2 H, Immature Gran % (Auto) 2.600 H, Neut % (Auto) 88.4 H, Lymph % (Auto) 2.6 L, [place] % (Auto) 5.9, Eos % (Auto) 0.0, Baso % (Auto) 0.5, Absolute Neuts (auto) 14.8 H, Absolute Lymphs (auto) 0.43 L, Nucleated RBC % 0.4, PT 36.7 H, INR 3.6, Sodium 127 L, Potassium 3.4 L, Chloride 89 L, Carbon Dioxide 28.0, Anion Gap 10, BUN 39 H, Creatinine 2.96 H, Estim Creat Clear Calc 19.01, Est GFR (MDRD) Af Amer 26 L, Est GFR (MDRD) Non-Af 22 L, BUN/Creatinine Ratio 13.2, Glucose 193 H, Calcium 9.0, Troponin I High Sens 658 H* 10/04/23 07:45: Urine Color Yellow, Urine Clarity Clear, Urine pH 6.0, Ur Specific [place] 1.010, Urine Protein 500 H, Urine Glucose (UA) 1000 H, Urine Ketones Negative, Urine Occult Blood 50 H, Urine Nitrite Negative, Urine Bilirubin Negative, Urine Urobilinogen Normal, Ur Leukocyte Esterase Negative, Urine RBC 0-5 SEEN, Urine WBC 5-10 SEEN, Ur Squamous Epith Cells 0-5 SEEN, Amorphous Sediment 1+, Urine Bacteria 0 SEEN, Urine Mucus 0 SEEN 10/04/23 10:08: POC Glucose 188 H 10/04/23 14:20: Troponin I High Sens 800 H* 10/04/23 17:10: TSH 0.26 L Micro: Microbiology 10/04/23 10:37 Mucosa - Nose Respiratory Panel (PCR) - Final 10/04/23 10:18 Mucosa - Nose SARS-CoV-2, Influenza & RSV (PCR) - Final ABG Data ABG results: ABG 10/04/23 17:07 Specimen Type ART Sample Site L Brach pH 7.53 H Bicarbonate Actual 24.6 Total CO2 26 Base Excess 2 O2 Saturation 99 O2 % 4.0 ABG pCO2 29.3 L ABG pO2 116 H Rajendra Test Positive O2 Delivery Device Cannula Vent Mode Not entered Imaging Radiology Impression Chest X-Ray 10/04/23 06:06 IMPRESSION: 1. Low lung volumes with mild increased right hilar pulmonary vascular prominence and increased opacity obscuring the left lateral costophrenic angle. 2. Similar cardiomegaly. Stable right jugular catheter. Electronically Signed: April Stack MD at 7:15 EST Reading Location ID and State: [facility] / [place] Tel , Service support ,
[2023-10-04] MEDS: Norepinephrine 8 MG in 0.9% Normal Saline (250mL Bag) 242 ML 9.40000000000000036 MG CONT INF (18:00)
[2023-10-04] MEDS: Albumin Human 25% (100 mL) 25 GM/100 ML BAG IV ×2 (18:04→21:07)
--- NOTE | 2023-10-04 18:04 | PCM.RX.CS ---
Consult Antibiotic Management Pharmacy has been consulted to manage selected antibiotic: Vancomycin Type of Intervention Type of Consult: New start Labs Labs: Sodium 127 mmol/L (136-145) L 10/04/23 05:25 Potassium 3.4 mmol/L (3.5-5.1) L 10/04/23 05:25 Chloride 89 mmol/L (98-107) L 10/04/23 05:25 Carbon Dioxide 28.0 mmol/L (21.0-32.0) 10/04/23 05:25 Anion Gap 10 (5-15) 10/04/23 05:25 BUN 39 mg/dL (7-18) H 10/04/23 05:25 Creatinine 2.96 mg/dL (0.70-1.30) H 10/04/23 05:25 Est GFR (MDRD) Af Amer 26 mL/min (>60) L 10/04/23 05:25 Est GFR (MDRD) Non-Af 22 mL/min (>60) L 10/04/23 05:25 BUN/Creatinine Ratio 13.2 RATIO (10-20) 10/04/23 05:25 Glucose 193 mg/dL (74-106) H 10/04/23 05:25 Microbiology Microbiology: Microbiology 10/04/23 10:37 Mucosa - Nose Respiratory Panel (PCR) - Final 10/04/23 10:18 Mucosa - Nose SARS-CoV-2, Influenza & RSV (PCR) - Final Pharmacy Plan for Drug Dosing Pharmacy Plan for Drug Dosing: NEW START IV VANCOMYCIN Consulting Physician: Annamarie Indication: Sepsis Goal Trough: 15-20 mg/dl SrCr: HD CrCl: HD Comments: Loading dose of 2000mg given 10/04 @ 1509 Vancomycin Dose: Patient is on HD with a MWF schedule, per nurse plan is to have HD tomorrow. Will schedule a weight based 500 mg dose after HD tomorrow 10/05 and enter a pre-HD random level prior to 2nd HD session (10/07) per policy. Pending Level: 10/07/23 @ 0600 - random with AM labs Pharmacy Service will continue to monitor and adjust dosing as required.
[2023-10-04] MEDS: Hydrocortisone Sod Succinate 100 MG/2 ML Vial 50 MG IV ×2 (18:49→21:08)
[2023-10-04] MEDS: Piperacil/Tazobactam 3.375 GM in 0.9% Normal Saline (50mL MB+) 50 ML IV (21:08)
[2023-10-05] VITALS (36 sets, daily range): BP systolic 76–226; BP diastolic 45–98; PULSE 51–86; RESP 15–24; TEMP 36.1–36.8; O2SAT 93–100; BMI 27.7; BMI 27.2
[2023-10-05] MEDS: Albumin Human 25% (100 mL) 25 GM/100 ML BAG IV (02:00)
[2023-10-05] MEDS: Hydrocortisone Sod Succinate 100 MG/2 ML Vial 50 MG IV ×4 (04:24→20:27)
[2023-10-05 04:50] LABS: Absolute Lymphocyte Count 0.44 X10^3/uL (0.83-4.51); Absolute Neutrophil Count 13.3 X10^3/uL (2.0-7.7); Basophil# 0.03 X10^3/uL; Basophil% 0.2 % (0-1); Hematocrit 27.9 % (40-54); Hemoglobin 9.4 g/dL (13.0-16.5); Lymphocyte # 0.44 X10^3/ul (0.83-4.51); Mean Corp Hgb Conc 33.7 g/dL (32-36); Mean Corpuscular Volume 86.1 fL (80-94); Mean Platelet Vol. 12.1 fl (6.2-12.0); Monocyte# 0.67 X10^3/uL; Monocyte% 4.6 % (0-10); NRBC Flagged by Analyzer 0 % (0-5); Neutrophil % 90.9 % (47-70); POSITIVE COUNT YES; POSITIVE DIFFERENTIAL YES; Platelet Count 77 K/mm3 (150-450); RBC Distribution Width CV 14.6 % (11.6-14.6); RBC Distribution Width SD 46.1 fl (35.1-43.9); Red Blood Count 3.24 M/mm3 (4.6-6.2); White Blood Count 14.6 K/mm3 (4.4-11.0)
[2023-10-05 05:18] LABS: ALB/GLOB Ratio 1.3 RATIO (0.9-2.4); AST(SGOT) 50 U/L (15-37); Alanine Aminotransfer ALT/SGPT 34 U/L (16-61); Albumin, Serum 3.3 g/dL (3.2-5.0); Alkaline Phosphatase 61 U/L (45-117); Anion Gap 11 (5-15); BUN 55 mg/dL (7-18); BUN/Creat Ratio 15.2 RATIO (10-20); Calcium,Total 8.3 mg/dL (8.5-10.1); Chloride 91 mmol/L (98-107); Creatinine, Serum 3.63 mg/dL (0.70-1.30); EST Glomerular Filtration Rate 17 mL/min (>60); Est Glom Filt Rate - Afr Amer 21 mL/min (>60); Estimated Creatinine Clearance 15.41 ml/min; Globulin 2.5 g/dL (2.2-4.2); Glucose 301 mg/dL (74-106); Potassium 2.9 mmol/L (3.5-5.1); Protein, Total 5.8 g/dL (6.4-8.2); Sodium Level 127 mmol/L (136-145)
[2023-10-05 05:20] LABS: International Normalized Ratio 3.9; Prothrombin Time (Protime)PT. 39.2 SECONDS (11.7-14.9)
--- NOTE | 2023-10-05 06:41 | PCM.PN.INT ---
Assessment & Plan Assessment/Plan (1) Septic shock: PLAN: Plan RECOMMENDATIONS: 1. Continue antibiotics as ordered. Infectious diseases consultation is pending. 2. Levophed, if needed, to maintain a mean arterial pressure at or above 65 mmHg. 3. Obtain echocardiogram. 4. Continue stress dose steroids for now. 5. Dialysis support per nephrology recommendations. 6. Nocturnal PAP therapy per home regimen. 7. Hold Coumadin given thrombocytopenia and INR. IMPRESSIONS: 1. Septic shock The patient initially presented to the hospital with generalized weakness but went on to develop fluid refractory hypotension requiring vasopressor support, in the setting of MRSA bacteremia. The patient does have a TDC in place. Although the patient was initially being maintained on Levophed, he has been weaned from vasopressor support this morning. Given his positive blood cultures, echocardiogram will be obtained. In addition, repeat blood cultures will be collected today. Infectious diseases consultation is pending. If the patient remains hemodynamically stable tomorrow, will begin to wean stress dose steroids. 2. History of heart failure with preserved ejection fraction/pulmonary hypertension The patient was noted to have moderate pulmonary hypertension on his last echocardiogram with a dilated left atrium, suggesting that he was not euvolemic at the time. I do suspect that his pulmonary hypertension is likely multifactorial with underlying cardiac implications and potential related to his underlying autoimmune condition. The patient was being managed on a prednisone taper following his last hospitalization. 3. Positive autoimmune workup Unclear autoimmune diagnosis, as the patient is followed by Dr. Conner on an outpatient basis. The patient was amidst a prednisone taper on an outpatient basis. While underlying adrenal insufficiency is certainly a possibility, the patient is also bacteremic. Therefore, he will be continued on stress dose steroids for now. 4. History of obstructive sleep apnea/atrial fibrillation/diabetes mellitus/hypertension/BPH Complicates care, management, recovery and prognosis. Continue supportive care and home medications as indicated. Continue nocturnal PAP therapy per home regimen. This note was generated with [employer] dictation software. It may contain incorrect words, spelling, and punctuation that were not noted in checking the note before signing. Subjective Subjective The patient was seen and examined at the bedside this morning. Events from the last 24 hours have been reviewed. The patient was able to be weaned off of Levophed this morning. He is currently tolerating dialysis and is maintaining appropriate oxygen saturations on room air. The patient did report that he has been weaning his prednisone dose and was supposed to decrease from 20 mg to 10 mg daily. INR this morning was noted to be 3.9. Potassium is low at 2.9. Objective Data Objective Data The patient's most recent lab work, culture data and imaging studies have all been personally reviewed. Preliminary blood culture dated October 04 was positive for MRSA. Vital Signs: Vital Signs Temp Pulse Resp BP Pulse Ox O2 Del Method O2 Flow Rate 98.2 F 54 L 15 123/46 H 98 CPAP 2 10/05/23 04:00 10/05/23 05:00 10/05/23 05:00 10/05/23 05:00 10/05/23 05:00 10/05/23 05:00 10/04/23 19:00 Oxygen Flow Rate (L/min) 2 Oxygen Delivery Method CPAP Weight: 166 lb 10.711 oz Body Mass Index (BMI) 27.7 Intake & Output: Intake and Output for Last 24 Hours 10/03/23 10/04/23 10/05/23 23:59 23:59 23:59 Intake Total 2026. / 2035.40 206.4 / 206.4 Output Total 500 / 500 Balance 2026. / 1835.40 -293.6 / -293.6 Lab / Micro Data Attestation: I reviewed the patient's lab results. 10/05/23 04:25 10/05/23 04:25 Labs: Laboratory Results - last 24 hr 10/04/23 05:25: Sodium 127 L, Potassium 3.4 L, Chloride 89 L, Carbon Dioxide 28.0, Anion Gap 10, BUN 39 H, Creatinine 2.96 H, Estim Creat Clear Calc 19.01, Est GFR (MDRD) Af Amer 26 L, Est GFR (MDRD) Non-Af 22 L, BUN/Creatinine Ratio 13.2, Glucose 193 H, Calcium 9.0, Troponin I High Sens 658 H* 10/04/23 07:45: Urine Color Yellow, Urine Clarity Clear, Urine pH 6.0, Ur Specific [place] 1.010, Urine Protein 500 H, Urine Glucose (UA) 1000 H, Urine Ketones Negative, Urine Occult Blood 50 H, Urine Nitrite Negative, Urine Bilirubin Negative, Urine Urobilinogen Normal, Ur Leukocyte Esterase Negative, Urine RBC 0-5 SEEN, Urine WBC 5-10 SEEN, Ur Squamous Epith Cells 0-5 SEEN, Amorphous Sediment 1+, Urine Bacteria 0 SEEN, Urine Mucus 0 SEEN 10/04/23 10:08: POC Glucose 188 H 10/04/23 14:20: Troponin I High Sens 800 H* 10/04/23 17:10: TSH 0.26 L 10/05/23 04:25: PT 39.2 H, INR 3.9, Sodium 127 L, Potassium 2.9 L, Chloride 91 L, Carbon Dioxide 25.0, Anion Gap 11, BUN 55 H, Creatinine 3.63 H, Estim Creat Clear Calc 15.41, Est GFR (MDRD) Af Amer 21 L, Est GFR (MDRD) Non-Af 17 L, BUN/Creatinine Ratio 15.2, Glucose 301 H, Calcium 8.3 L, Total Bilirubin 1.40 H, AST 50 H, ALT 34, Alkaline Phosphatase 61, Total Protein 5.8 L, Albumin 3.3, Globulin 2.5, Albumin/Globulin Ratio 1.3 Micro: Microbiology 10/04/23 14:30 Blood Culture (Wb) - Right Wrist Blood Culture - Preliminary 10/04/23 10:37 Mucosa - Nose Respiratory Panel (PCR) - Final 10/04/23 10:18 Mucosa - Nose SARS-CoV-2, Influenza & RSV (PCR) - Final ABG Data ABG results: ABG 10/04/23 17:07 Specimen Type ART Sample Site L Brach pH 7.53 H Bicarbonate Actual 24.6 Total CO2 26 Base Excess 2 O2 Saturation 99 O2 % 4.0 ABG pCO2 29.3 L ABG pO2 116 H Rajendra Test Positive O2 Delivery Device Cannula Vent Mode Not entered Radiography Diagnostic Testing: Radiology Impression Chest X-Ray 10/04/23 06:06 IMPRESSION: 1. Low lung volumes with mild increased right hilar pulmonary vascular prominence and increased opacity obscuring the left lateral costophrenic angle. 2. Similar cardiomegaly. Stable right jugular catheter. Electronically Signed: April Stack MD at 7:15 EST , Chest/Abdomen/Pelvis CT 10/04/23 16:39 IMPRESSION: 1. There are innumerable scattered pulmonary nodules bilaterally, the largest measuring up to approximately 8 mm. These were not appreciable on the prior CT chest and may very well be infectious/inflammatory. Fleischner Society Guidelines (MacMahon, et al. Radiology 2017; 284(1):228-43) suggest the following. For low-risk patients recommend follow-up chest CT at 3-6 months. If unchanged consider an additional follow-up CT at 18-24 months. For high-risk patients initial follow-up chest CT at 3-6 months and if unchanged, 18-24 months. 2. Cholelithiasis without secondary signs of cholecystitis. 3. Atrophic changes of the right kidney. No hydronephrosis or obstructive urolithiasis. 4. Prostatomegaly. 5. Coronary artery calcifications. Cardiomegaly. No pericardial effusion. 6. Colonic diverticulosis. No discrete evidence of acute diverticulitis. 7. Findings suggestive of ankylosing spondylitis. No acute osseous findings. Electronically Signed: Stephen Vital DO at 18:02 EST , Physical Exam Const alert and no apparent distress General Appearance: cooperative HEENT normocephalic, head/scalp atraumatic and moist oral mucous membranes Eyes PERRL, EOMs intact bilaterally and conjunctivae normal Neck supple General: trachea midline Chest inspection of chest normal Chest Narrative: Stable HD line. Resp normal respiratory effort Auscultation: Negative for rales, rhonchi or wheezes Cardio S1 normal heart sound and S2 normal heart sound Rhythm: abnormal rhythm GI normal to inspection, nondistended, normoactive bowel sounds Extremity no clubbing, cyanosis or edema Skin no rashes or lesions noted Neuro CN's II-XII intact bilaterally, moves all extremities and no focal motor deficits Psych cooperative and affect normal Charges/Coding Visit Charges Inpatient E&M: 34969 Subs Hosp L3
[2023-10-05 07:08] LABS: Differential Indicated SCAN CRITERIA MET
--- NOTE | 2023-10-05 07:31 | PN.HOSP_ITS ---
Reason for Visit Reason for Visit: Diagnoses Addisonian crisis (10/04/23) Hypo-osmolality and hyponatremia (10/04/23) Hypotension, unspecified (10/04/23) End stage renal disease (10/04/23) Rash and other nonspecific skin eruption (10/04/23) Other malaise (10/04/23) Subjective Subjective Patient is an 78-year-old gentleman admitted with progressive generalized weakness. Patient was found to have significant hypotension admitted to the intensive care unit for subsequent management. Infectious workup has so far remained negative to date. Objective Data Objective Data Vital Signs: Vital Signs Temp Pulse Resp BP Pulse Ox O2 Del Method O2 Flow Rate 98.2 F 54 L 15 123/46 H 98 CPAP 2 10/05/23 04:00 10/05/23 05:00 10/05/23 05:00 10/05/23 05:00 10/05/23 05:00 10/05/23 05:00 10/04/23 19:00 Oxygen Flow Rate (L/min) 2 Oxygen Delivery Method CPAP Weight: 75.6 kg Body Mass Index (BMI) 27.7 Intake & Output: Intake and Output for Last 24 Hours 10/03/23 10/04/23 10/05/23 23:59 23:59 23:59 Intake Total 2026. / 2036.40 206.4 / 206.4 Output Total 500 / 500 Balance 2026. / 1836.40 -293.6 / -293.6 Medical Nutrition Assessment Dietitian: Malnutrition Criteria Met Start: 10/05/23 06:56 Freq: Status: Active Protocol: Document 10/05/23 06:56 KALLI (Rec: 10/05/23 06:56 KALLI Desktop) Nutrition Malnutrition Evidence of Malnutrition Exists Yes Malnutrition (severe): Acute Illness/Injury Evidenced By Suboptimal Energy Intake ( Severe),Weight Loss (Severe) Intake Problem Inadequate Oral Intake Status Inactive Problem Clinical Problem Acute Disease or Injury Related Malnutrition Etiology related to acute illness and recent initiation of HD Signs/Symptoms as evidenced by <50% of est nutritional needs x 2 wks and 11.6% wt loss x 6 wks Status Active Problem Altered Nutrient-Related Laboratory Values Etiology related to diabetes and renal dysfunction Signs/Symptoms as evidenced by gluc 193, BUN 39, Cr 2.96 Status Active Problem Recommendation Dietitian Recommendations/Changes Will change diet to Renal general w/ Consistent CHO Will order 4 oz glucerna shake 4x/day w/ medpass for increased nutrition if consumed. Lab / Micro Data 10/05/23 04:25 10/05/23 04:25 Labs: Laboratory Results - last 24 hr 10/04/23 07:45: Urine Color Yellow, Urine Clarity Clear, Urine pH 6.0, Ur Sp ecific [place] 1.010, Urine Protein 500 H, Urine Glucose (UA) 1000 H, Urine Ketones Negative, Urine Occult Blood 50 H, Urine Nitrite Negative, Urine Bilirubin Negative, Urine Urobilinogen Normal, Ur Leukocyte Esterase Negative, Urine RBC 0-5 SEEN, Urine WBC 5-10 SEEN, Ur Squamous Epith Cells 0-5 SEEN, Amorphous Sediment 1+, Urine Bacteria 0 SEEN, Urine Mucus 0 SEEN 10/04/23 10:08: POC Glucose 188 H 10/04/23 14:20: Troponin I High Sens 800 H* 10/04/23 17:10: TSH 0.26 L 10/05/23 04:25: WBC 14.6 H, RBC 3.24 L, Hgb 9.4 L, Hct 27.9 L, MCV 86.1, MCH 29.0, MCHC 33.7, RDW Std Deviation 46.1 H, RDW Coeff of Kiersten 14.6, Plt Count 77 L , MPV 12.1 H, Immature Gran % (Auto) 1.300 H, Neut % (Auto) 90.9 H, Lymph % (Auto) 3.0 L, [place] % (Auto) 4.6, Eos % (Auto) 0.0, Baso % (Auto) 0.2, Absolute Neuts (auto) 13.3 H, Absolute Lymphs (auto) 0.44 L, Nucleated RBC % 0, PT 39.2 H , INR 3.9, Sodium 127 L, Potassium 2.9 L, Chloride 91 L, Carbon Dioxide 25.0, Anion Gap 11, BUN 55 H, Creatinine 3.63 H, Estim Creat Clear Calc 15.41, Est GFR (MDRD) Af Amer 21 L, Est GFR (MDRD) Non-Af 17 L, BUN/Creatinine Ratio 15.2, Glucose 301 H, Calcium 8.3 L, Total Bilirubin 1.40 H, AST 50 H, ALT 34, Alkaline Phosphatase 61, Total Protein 5.8 L, Albumin 3.3, Globulin 2.5, Albumin/Globulin Ratio 1.3 Micro: Microbiology 10/04/23 14:30 Blood Culture (Wb) - Right Wrist Bacteria Detection (PCR) - Final Meth. resistant Staph. aureus 10/04/23 14:30 Blood Culture (Wb) - Right Wrist Blood Culture - Preliminary 10/04/23 10:37 Mucosa - Nose Respiratory Panel (PCR) - Final 10/04/23 10:18 Mucosa - Nose SARS-CoV-2, Influenza & RSV (PCR) - Final ABG Data ABG results: ABG 10/04/23 17:07 Specimen Type ART Sample Site L Brach pH 7.53 H Bicarbonate Actual 24.6 Total CO2 26 Base Excess 2 O2 Saturation 99 O2 % 4.0 ABG pCO2 29.3 L ABG pO2 116 H Rajendra Test Positive O2 Delivery Device Cannula Vent Mode Not entered Radiography Diagnostic Testing: Radiology Impression Chest/Abdomen/Pelvis CT 10/04/23 16:39 IMPRESSION: 1. There are innumerable scattered pulmonary nodules bilaterally, the largest measuring up to approximately 8 mm. These were not appreciable on the prior CT chest and may very well be infectious/inflammatory. Fleischner Society Guidelines (MacMahon, et al. Radiology 2017; 284(1):228-43) suggest the following. For low-risk patients recommend follow-up chest CT at 3-6 months. If unchanged consider an additional follow-up CT at 18-24 months. For high-risk patients initial follow-up chest CT at 3-6 months and if unchanged, 18-24 months. 2. Cholelithiasis without secondary signs of cholecystitis. 3. Atrophic changes of the right kidney. No hydronephrosis or obstructive urolithiasis. 4. Prostatomegaly. 5. Coronary artery calcifications. Cardiomegaly. No pericardial effusion. 6. Colonic diverticulosis. No discrete evidence of acute diverticulitis. 7. Findings suggestive of ankylosing spondylitis. No acute osseous findings. Electronically Signed: Stephen Vital DO at 18:02 EST , Physical Exam Narrative GENERAL: cooperative HEENT: Atraumatic; normocephalic EYES; Anicteric, Normal Conjunctiva NECK; supple, normal thyroid, RESPIRATORY: Diminished to auscultation CARDIOVASCULAR: Irregular S1-S2 GI: soft, normoactive bowel sounds, : No Renal angle tenderness; EXTREMITIES: No edema, no clubbing, MUSCULOSKELETAL: no muscle wasting NEURO: Awake; no lateralizing signs. SKIN: No Rash PSYCH; Flat affect Assessment & Plan Assessment/Plan (1) Septic shock: PLAN: Plan Patient is an 78-year-old gentleman admitted with progressive generalized weakness with chills. Patient was found to have significant hypotension admitted to the intensive care unit for subsequent management. Infectious workup has so far remained negative to date. 1. Hypotension ? Suspected to be secondary to combination of septic shock of undetermined etiology as well as possible adrenal crisis. Patient admitted to the intensive care unit managed with IV fluids stress dose of steroid as well as broad- spectrum antibiotic therapy after cultures have been obtained. 2. Elevated troponin ? Patient troponins continue to rise. Myocardial injury versus acute coronary syndrome. 2D echo ordered consult placed to cardiology 3. Essential tension ? Patient antihypertensives held on admission 4. Chronic congestive heart failure ? Currently euvolemic echo from 03/05/2023 demonstrated EF of 53% 5. End-stage renal disease ? Patient is on hemodialysis, consult placed to nephrology for dialysis orders 6. Paroxysmal A-fib ? Rate controlled on systemic anticoagulation with warfarin with elevated INR currently being held 7. 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 Status post cardioMEMs device placement ? In February 2021 9. Diabetes mellitus type II -patient's oral hypoglycemics held. Placed on long acting insulin, Accu-Cheks a.c. and at bedtime and covered with sliding scale insulin 10. BPH with lower urinary obstructive symptoms - Patient treated with finasteride 11. DVT prophylaxis ? Patient is on Coumadin Time spent in the patient's overall evaluation,decision-making process, review of diagnostic data, adjustment of management, discussion with other providers, nursing nursing and ancillary staff involved in patient's care documentation, 50 Minutes CODE STATUS; DNR Comfort Care arrest no intubation. Charges/Coding Visit Charges Inpatient E&M: 51632 [facility] Hosp L3
[2023-10-05 08:43] LABS: Differential Comment SCANNED; Platelet Estimate MKD DEC (ADEQ)
[2023-10-05 08:44] LABS: Platelet Morphology LARGE
[2023-10-05] MEDS: 0.9% Normal Saline 1,000 ML IV.SOLN. 1000 ML OPERA.SITE (08:50)
[2023-10-05] MEDS: PureFlow B 3K Dialysis Soln 1 BAG 6 BAG PF (08:50)
[2023-10-05] MEDS: Potassium Chloride 10mEq/100mL 10 MEQ/100 ML IV.SOLN. 100 MEQ IV BOLUS ×4 (10:11→14:24)
[2023-10-05] MEDS: Pantoprazole Sodium 40 MG Tablet PO (10:12)
[2023-10-05] MEDS: Empagliflozin 25 MG Tablet PO (10:12)
[2023-10-05] MEDS: Finasteride 5 MG Tablet PO (10:12)
[2023-10-05] MEDS: Potassium Chloride Oral Tablet 20 MEQ 40 MEQ PO (10:15)
[2023-10-05] MEDS: Insulin Glargine-YFGN 100 UNIT/ML Pen 10 UNIT SC (10:17)
[2023-10-05] MEDS: Insulin Lispro 100 UNIT/ML INSULN.PEN SC ×2 (10:19→16:47)
--- NOTE | 2023-10-05 10:28 | PCM.CONS.C ---
Assessment & Plan Assessment/Plan (1) Persistent atrial fibrillation: PLAN: The patient's telemetry and EKG revealed atrial fibrillation with a acceptable ventricular sponsor of about 60 bpm. There is a chronic left bundle branch block. The patient is on long-term Coumadin therapy. (2) Anticoagulant long-term use: PLAN: Coumadin with a target INR of 2-3. (3) Chronic combined systolic and diastolic CHF (congestive heart failure): PLAN: The patient does not appear to be in acute heart failure at this time. This is probably hypertrophic in etiology he is status post septal myectomy in 2000. He was previously managed by a cardio mems pulmonary implanted device. But since dialysis his volume has been better controlled. The patient was admitted in septic shock with hypotension. He was resuscitated with fluids. He has been dialyzed today. An echocardiogram will be checked. Most recent echo showed an EF of 50% July 2023 (4) Hypertrophic cardiomyopathy: PLAN: Status post myectomy in 2000. History of diastolic dysfunction and nonischemic congestive heart failure. Last echocardiogram showed an ejection fraction of 50% with aortic sclerosis. (5) Left bundle branch block: PLAN: Chronic left bundle branch block. (6) Septic shock: PLAN: Sepsis being treated by the intensive care service. (7) Elevated troponin I level: PLAN: The patient has no symptoms at all from an ischemic standpoint. His troponins are probably elevated based on his sepsis and end-stage renal disease requiring dialysis. A 2D echocardiogram is pending to evaluate him for segmental wall motion abnormalities. The patient is status post myectomy and has a left bundle branch block on his EKG which will give some segmental wall motion changes. PLAN: Plan 1. 2D echocardiogram 2. Medications will be adjusted now that he is on chronic renal replacement therapy to better treat his heart failure. HPI Consult Data Date of Consult: 10/05/23 HPI Narrative Reason for Consultation: Elevated troponins HPI Narrative: ANTWAN GE, is a 78 M who presents with a picture consistent with sepsis. The patient developed severe chills and was brought to the emergency room when he was hypotensive in his home environment earlier this weekend. There was a concern for potential adrenal crisis. The patient's enzymes have trended up they are now 800. He specifically denies any chest pain although he is diabetic. He is also on dialysis his last dialysis was Thursday he is being dialyzed today. I examined him while he was on dialysis. He actually started dialysis September 19, 2023. The patient carries a history of a heart catheterization in 2020 which showed mild coronary artery disease. He has known aortic sclerosis with no stenosis with a left-ventricular ejection fraction of 50%. This was on an echocardiogram July 2023. He is also so status post septal myectomy in 2000. He has a chronic left bundle branch block. The patient also is in chronic atrial fibrillation. His heart rate is in the 60 bpm range. The patient denies any PND orthopnea specifically denies any chest symptoms whatsoever. He also denies any new lower extremity edema. He is on long-term warfarin therapy for his chronic atrial fibrillation. [facility] Medical History Abnormal ankle brachial index (LOKI) Acute hypoxic respiratory failure Anemia due to stage 3b chronic kidney disease Back pain BPH (benign prostatic hyperplasia) Cardiology follow-up encounter CHF NYHA class III Chronic combined systolic and diastolic CHF (congestive heart failure) Chronic kidney disease, stage 3b Chronic kidney disease, stage 4 (severe) Claudication Constipation CPAP (continuous positive airway pressure) dependence Diabetes Diarrhea Dietary restriction Elevated troponin (01/2021) Essential (primary) hypertension Gout Heartburn History of echocardiogram History of edema History of irregular heartbeat History of non-ST elevation myocardial infarction (NSTEMI) (07/25/21) History of pain when walking History of steroid therapy History of tobacco use HLD (hyperlipidemia) Hypertension Hypertrophic cardiomyopathy Hypokalemia Joint pain Lactic acidosis Left bundle branch block Leg cramps Leukocytosis Longstanding persistent atrial fibrillation Mitral valve insufficiency Night sweats 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 Obesity (BMI 30.0-34.9) KIMBERLY (obstructive sleep apnea) Persistent atrial fibrillation Poor appetite Presence of implantable pulmonary artery pressure and heart rate monitoring system (03/25/21) Renal infarct Restless legs Secondary pulmonary arterial hypertension Shortness of breath on exertion Wears glasses Home Medications finasteride 5 mg tablet 5 mg PO DAILY prostate 12/19/20 [History Last Taken 12/22/20] warfarin 2.5 mg tablet 5 mg PO .COMPLEX blood thinner 03/11/21 [History Last Taken 05/31/22] cyanocobalamin (vitamin B-12) 1,000 mcg tablet (Vitamin B-12) 1,000 mcg PO DAILY supplement 06/26/22 [History Last Taken Unknown] carvedilol 6.25 mg tablet 6.25 mg PO BID #60 tabs 05/13/23 [Rx Last Taken Unknown] dapagliflozin propanediol 10 mg tablet ([place]) 10 mg PO DAILY diabetes 08/29/23 [History Last Taken Unknown] gabapentin 100 mg capsule 100 mg PO QHS unsure 08/29/23 [History Last Taken Unknown] pantoprazole 40 mg tablet,delayed release 40 mg PO DAILY prevent stomach ulcers 08/29/23 [History Last Taken Unknown] allopurinol 100 mg tablet 200 mg (2 x 100 mg) PO DAILYCM #30 tabs 09/03/23 [Rx Last Taken Unknown] insulin glargine-yfgn 100 unit/mL (3 mL) subcutaneous pen 10 unit (0.1 mL) subcut DAILY #15 mL 09/03/23 [Rx Last Taken Unknown] pen needle, diabetic 33 gauge x 3/16 #100 ea 09/03/23 [Rx Last Taken Unknown] metolazone 2.5 mg tablet 2.5 mg PO .Thursday #8 tabs 09/09/23 [Rx Last Taken Unknown] epinephrine 0.3 mg/0.3 mL injection, auto-injector 0.3 mg (0.3 mL) IM Q4H PRN anaphylaxis #2 ea 10/03/23 [Rx Last Taken Unknown] bumetanide 0.5 mg tablet 0.5 mg PO BID 10/04/23 [History Last Taken Unknown] prednisone 20 mg tablet 30 mg PO .COMPLEX 10/04/23 [History Last Taken Unknown] Allergy/AdvReac Type Severity Reaction Status Date / Time metoprolol AdvReac bradycardia Verified 10/03/23 13:11 rivaroxaban [From Xarelto] AdvReac Bleeding Verified 10/04/23 15:42 Family History Father Heart disease Sister Heart disease Brother Heart disease Other Arthritis CVA (cerebral vascular accident) Depression Mental disorder Surgical History History of appendectomy History of cataract extraction History of left heart catheterization (02/19/21) History of transurethral resection of prostate (01/2019) History of ventricular septal myectomy (2000) Hx of umbilical hernia repair Social History Smoking Status: Former smoker how long ago did patient quit smokin years ago 0.25ppd second hand exposure: Yes alcohol intake: never caffeine: Yes Type: coffee Number of servings: 1 what type of physical activity do you participate in: other details: treadmill frequency: daily ROS Constitutional Constitutional: Reports as per HPI Eyes Eyes: Reports systems reviewed and no addt'l complaints, except as documented ENT HEENT: Reports systems reviewed and no addt'l complaints, except as documented Cardiovascular Cardiovascular: Reports as per HPI Respiratory/Chest Respiratory/Chest: Reports as per HPI Gastrointestinal Gastrointestinal: Reports systems reviewed and no addt'l complaints, except as documented Genitourinary Genitourinary: Reports as per HPI Musculoskeletal Musculoskeletal: Reports as per HPI Integumentary Integumentary: Reports systems reviewed and no addt'l complaints, except as documented and as per HPI Neurologic Neurologic: Reports systems reviewed and no addt'l complaints, except as documented Psychiatric Psychiatric: Reports systems reviewed and no addt'l complaints, except as documented Endocrine Endocrinology: Reports systems reviewed and no addt'l complaints, except as documented Hematologic/Lymphatic Hematologic/Lymphatic: Reports systems reviewed and no addt'l complaints, except as documented Allergic/Immunologic Allergic/Immunologic: Reports systems reviewed and no addt'l complaints, except as documented Physical Exam Const oriented x3 HEENT normocephalic Eyes EOMs intact bilaterally Neck no JVD Chest inspection of chest normal Chest Narrative: Right infraclavicular tunneled catheter. Resp normal respiratory effort Auscultation: breath sounds absent bilateral (Bases) and diminished lung sounds bilateral Cardio Rate: regular rate Rhythm: abnormal rhythm irregularly irregular Heart Sounds: S1 normal, S2 normal and murmur systolic II/ harsh left sternal border; Negative for gallop Extremity no pedal edema Skin General Skin Exam: ecchymosis Psych mental status grossly normal Risk Stratification Risk Stratification Applicable: Yes Age >/= 65: Yes >/= 3 CAD Risk Factors (HTN, HLD, DM, family hx of CAD, or current smoker): No Aspirin Use in the Past 7 Days: No Severe Angina (>/= episodes in 24 hours): No EKG ST Changes >/= 0.5mm: No Positive Cardiac Marker: Yes THI Risk Stratification Score: 2 THI % Risk: 8% Risk Charges/Coding Visit Charges Inpatient E&M: 83778 Init Hosp L3 Objective Data Vital Signs: Vital Signs Temp Pulse Resp BP Pulse Ox O2 Del Method O2 Flow Rate 98.2 F 72 18 127/55 H 98 Room Air 2 10/05/23 04:00 10/05/23 10:00 10/05/23 10:00 10/05/23 10:00 10/05/23 10:00 10/05/23 10:00 10/04/23 19:00 Oxygen Flow Rate (L/min) 2 Oxygen Delivery Method Room Air Weight: 166 lb 10.711 oz Body Mass Index (BMI) 27.7 Intake & Output: Intake and Output for Last 24 Hours 10/03/23 10/04/23 10/05/23 23:59 23:59 23:59 Intake Total 2026. / 2035.40 225.2 / 225.2 Output Total 500 / 500 Balance 2026. / 1836.40 -274.8 / -274.8 Lab / Micro Data Attestation: I reviewed the patient's lab results. 10/05/23 04:25 10/05/23 04:25 Labs: Laboratory Results - last 24 hr 10/04/23 10:08: POC Glucose 188 H 10/04/23 14:20: Troponin I High Sens 800 H* 10/04/23 17:10: TSH 0.26 L 10/05/23 04:25: WBC 14.6 H, RBC 3.24 L, Hgb 9.4 L, Hct 27.9 L, MCV 86.1, MCH 29.0, MCHC 33.7, RDW Std Deviation 46.1 H, RDW Coeff of Kiersten 14.6, Plt Count 77 L, MPV 12.1 H, Immature Gran % (Auto) 1.300 H, Neut % (Auto) 90.9 H, Lymph % (Auto) 3.0 L, [place] % (Auto) 4.6, Eos % (Auto) 0.0, Baso % (Auto) 0.2, Absolute Neuts (auto) 13.3 H, Absolute Lymphs (auto) 0.44 L, Nucleated RBC % 0, Differential Comment SCANNED, Platelet Estimate MKD DEC, Plt Morphology Comment LARGE, PT 39.2 H, INR 3.9, Sodium 127 L, Potassium 2.9 L, Chloride 91 L, Carbon Dioxide 25.0, Anion Gap 11, BUN 55 H, Creatinine 3.63 H, Estim Creat Clear Calc 15.41, Est GFR (MDRD) Af Amer 21 L, Est GFR (MDRD) Non-Af 17 L, BUN/Creatinine Ratio 15.2, Glucose 301 H, Calcium 8.3 L, Total Bilirubin 1.40 H, AST 50 H, ALT 34, Alkaline Phosphatase 61, Total Protein 5.8 L, Albumin 3.3, Globulin 2.5, Albumin/Globulin Ratio 1.3 Micro: Microbiology 10/04/23 14:30 Blood Culture (Wb) - Right Wrist Bacteria Detection (PCR) - Final Meth. resistant Staph. aureus 10/04/23 14:30 Blood Culture (Wb) - Right Wrist Blood Culture - Preliminary 10/04/23 10:37 Mucosa - Nose Respiratory Panel (PCR) - Final 10/04/23 10:18 Mucosa - Nose SARS-CoV-2, Influenza & RSV (PCR) - Final ABG Data ABG results: ABG 10/04/23 17:07 Specimen Type ART Sample Site L Brach pH 7.53 H Bicarbonate Actual 24.6 Total CO2 26 Base Excess 2 O2 Saturation 99 O2 % 4.0 ABG pCO2 29.3 L ABG pO2 116 H Rajendra Test Positive O2 Delivery Device Cannula Vent Mode Not entered Rhythm Strip Rhythm Strip: A-fib Rate: 60 Cardiology Labs/Tests 10/04/23 17:07: pH 7.53 H, Bicarbonate Actual 24.6, Base Excess 2, O2 Saturation 99, ABG pCO2 29.3 L, ABG pO2 116 H, Rajendra Test Positive 10/05/23 04:25: WBC 14.6 H, RBC 3.24 L, Hgb 9.4 L, Hct 27.9 L, MCV 86.1, MCH 29.0, MCHC 33.7, Plt Count 77 L, MPV 12.1 H, Immature Gran % (Auto) 1.300 H, Neut % (Auto) 90.9 H, Lymph % (Auto) 3.0 L, [place] % (Auto) 4.6, Eos % (Auto) 0.0, Baso % (Auto) 0.2, Absolute Neuts (auto) 13.3 H, Nucleated RBC % 0, PT 39.2 H, INR 3.9, Sodium 127 L, Potassium 2.9 L, Chloride 91 L, Carbon Dioxide 25.0, Anion Gap 11, BUN 55 H, Creatinine 3.63 H, Est GFR (MDRD) Af Amer 21 L, Est GFR (MDRD) Non-Af 17 L, BUN/Creatinine Ratio 15.2, Glucose 301 H, Calcium 8.3 L, Total Bilirubin 1.40 H Rhythm: EKG: ECHO: Stress Test: Cardiac Cath: PCI: CT Surgery: Holter monitor: EPS: PPM: CXR: Chest CT Scan: Radiography Diagnostic Testing: Radiology Impression Chest/Abdomen/Pelvis CT 10/04/23 16:39 IMPRESSION: 1. There are innumerable scattered pulmonary nodules bilaterally, the largest measuring up to approximately 8 mm. These were not appreciable on the prior CT chest and may very well be infectious/inflammatory. Fleischner Society Guidelines (MacMahon, et al. Radiology 2017; 284(1):228-43) suggest the following. For low-risk patients recommend follow-up chest CT at 3-6 months. If unchanged consider an additional follow-up CT at 18-24 months. For high-risk patients initial follow-up chest CT at 3-6 months and if unchanged, 18-24 months. 2. Cholelithiasis without secondary signs of cholecystitis. 3. Atrophic changes of the right kidney. No hydronephrosis or obstructive urolithiasis. 4. Prostatomegaly. 5. Coronary artery calcifications. Cardiomegaly. No pericardial effusion. 6. Colonic diverticulosis. No discrete evidence of acute diverticulitis. 7. Findings suggestive of ankylosing spondylitis. No acute osseous findings. Electronically Signed: Stephen Vital DO at 18:02 EST ,
[2023-10-05] MEDS: Heparin 10,000 UNITS/10 ML Vial IV (11:00)
[2023-10-05] MEDS: 0.9% Saline Lock 10 ML Syringe IV ×2 (11:00→20:27)
[2023-10-05 11:59] LABS: Bedside Glucose 177 mg/dL (74-106)
[2023-10-05 12:02] LABS: Bedside Glucose 201 mg/dL (74-106)
[2023-10-05] MEDS: Piperacil/Tazobactam 3.375 GM in 0.9% Normal Saline (50mL MB+) 50 ML IV ×2 (12:32→20:27)
[2023-10-05] MEDS: Vancomycin IV 500 MG/100 ML BAG 100 MG IV (14:25)
--- NOTE | 2023-10-05 15:06 | PN.RENAL_ITS ---
Subjective Subjective Events noted. Blood pressure was okay this morning, received dialysis. Blood pressure is slightly lower after dialysis. He is somewhat upset about it. Complains of pain over the left wrist. Blood cultures are positive for MRSA. Catheter exit site looks okay. Breathing is okay overall. Objective Data Objective Data Vital Signs: Vital Signs Temp Pulse Resp BP Pulse Ox O2 Del Method O2 Flow Rate 97.6 F L 76 20 H 93/56 L 100 Room Air 2 10/05/23 12:00 10/05/23 13:00 10/05/23 13:00 10/05/23 13:00 10/05/23 13:00 10/05/23 13:00 10/04/23 19:00 Oxygen Flow Rate (L/min) 2 Oxygen Delivery Method Room Air Weight: 74.1 kg Body Mass Index (BMI) 27.2 Intake & Output: Intake and Output for Last 24 Hours 10/03/23 10/04/23 10/05/23 23:59 23:59 23:59 Intake Total 2026.00 / 2036.40 529.0 / 529.0 Output Total 1600 / 1600 Balance 2026.00 / 1836.40 -1071.0 / -1071.0 Medical Nutrition Assessment Dietitian: Malnutrition Criteria Met Start: 10/05/23 06:56 Freq: Status: Active Protocol: Document 10/05/23 06:56 SLA (Rec: 10/05/23 06:56 [facility] Desktop) Nutrition Malnutrition Evidence of Malnutrition Exists Yes Malnutrition (severe): Acute Illness/Injury Evidenced By Suboptimal Energy Intake ( Severe),Weight Loss (Severe) Intake Problem Inadequate Oral Intake Status Inactive Problem Clinical Problem Acute Disease or Injury Related Malnutrition Etiology related to acute illness and recent initiation of HD Signs/Symptoms as evidenced by <50% of est nutritional needs x 2 wks and 11.6% wt loss x 6 wks Status Active Problem Altered Nutrient-Related Laboratory Values Etiology related to diabetes and renal dysfunction Signs/Symptoms as evidenced by gluc 193, BUN 39, Cr 2.96 Status Active Problem Recommendation Dietitian Recommendations/Changes Will change diet to Renal general w/ Consistent CHO Will order 4 oz glucerna shake 4x/day w/ medpass for increased nutrition if consumed. Lab / Micro Data 10/05/23 04:25 10/05/23 04:25 Labs: Laboratory Results - last 24 hr 10/04/23 17:10: TSH 0.26 L 10/05/23 04:25: WBC 14.6 H, RBC 3.24 L, Hgb 9.4 L, Hct 27.9 L, MCV 86.1, MCH 29.0, MCHC 33.7, RDW Std Deviation 46.1 H, RDW Coeff of Kiersten 14.6, Plt Count 77 L , MPV 12.1 H, Immature Gran % (Auto) 1.300 H, Neut % (Auto) 90.9 H, Lymph % (Auto) 3.0 L, [place] % (Auto) 4.6, Eos % (Auto) 0.0, Baso % (Auto) 0.2, Absolute Neuts (auto) 13.3 H, Absolute Lymphs (auto) 0.44 L, Nucleated RBC % 0, Differential Comment SCANNED, Platelet Estimate MKD DEC, Plt Morphology Comment LARGE, PT 39.2 H, INR 3.9, Sodium 127 L, Potassium 2.9 L, Chloride 91 L, Carbon Dioxide 25.0, Anion Gap 11, BUN 55 H, Creatinine 3.63 H, Estim Creat Clear Calc 15.41, Est GFR (MDRD) Af Amer 21 L, Est GFR (MDRD) Non-Af 17 L, BUN/Creatinine Ratio 15.2, Glucose 301 H, Calcium 8.3 L, Total Bilirubin 1.40 H, AST 50 H, ALT 34, Alkaline Phosphatase 61, Total Protein 5.8 L, Albumin 3.3, Globulin 2.5, Albumin/Globulin Ratio 1.3 10/05/23 10:17: POC Glucose 177 H 10/05/23 11:45: POC Glucose 201 H Micro: Microbiology 10/04/23 14:20 Blood Culture (Wb) - Left Hand Blood Culture - Preliminary Staphylococcus aureus 10/04/23 14:30 Blood Culture (Wb) - Right Wrist Bacteria Detection (PCR) - Final Meth. resistant Staph. aureus 10/04/23 14:30 Blood Culture (Wb) - Right Wrist Blood Culture - Preliminary Staphylococcus aureus 10/04/23 10:37 Mucosa - Nose Respiratory Panel (PCR) - Final 10/04/23 10:18 Mucosa - Nose SARS-CoV-2, Influenza & RSV (PCR) - Final ABG Data ABG results: ABG 10/04/23 17:07 Specimen Type ART Sample Site L Brach pH 7.53 H Bicarbonate Actual 24.6 Total CO2 26 Base Excess 2 O2 Saturation 99 O2 % 4.0 ABG pCO2 29.3 L ABG pO2 116 H Rajendra Test Positive O2 Delivery Device Cannula Vent Mode Not entered Radiography Diagnostic Testing: Radiology Impression Chest/Abdomen/Pelvis CT 10/04/23 16:39 IMPRESSION: 1. There are innumerable scattered pulmonary nodules bilaterally, the largest measuring up to approximately 8 mm. These were not appreciable on the prior CT chest and may very well be infectious/inflammatory. Fleischner Society Guidelines (MacMahon, et al. Radiology 2017; 284(1):228-43) suggest the following. For low-risk patients recommend follow-up chest CT at 3-6 months. If unchanged consider an additional follow-up CT at 18-24 months. For high-risk patients initial follow-up chest CT at 3-6 months and if unchanged, 18-24 months. 2. Cholelithiasis without secondary signs of cholecystitis. 3. Atrophic changes of the right kidney. No hydronephrosis or obstructive urolithiasis. 4. Prostatomegaly. 5. Coronary artery calcifications. Cardiomegaly. No pericardial effusion. 6. Colonic diverticulosis. No discrete evidence of acute diverticulitis. 7. Findings suggestive of ankylosing spondylitis. No acute osseous findings. Electronically Signed: Stephen Vital DO at 18:02 EST , Rhythm Strip Rhythm Strip: A-fib Rate: 60 Physical Exam Narrative General: Alert and oriented x3, NAD. HEENT: Normocephalic, atraumatic. Mucous membrane moist without erythema. PERRLA, EOMI. Hearing is intact. Neck: Supple, no JVD. Trachea is midline. No thyromegaly or lymphadenopathy. TDC site is clean and dry. There is no drainage from exit site. There is no pain with palpation of the tunnel tract. Cardiovascular: Normal S1, S2. No rubs, murmurs, or gallops. Respiratory: Lungs are clear to auscultation bilaterally. No wheezing, rhonchi, or rales. Abdomen: Normal bowel sounds, soft, nontender, no guarding or rebound, no organomegaly. Extremities: No clubbing, cyanosis, or edema. Musculoskeletal: Full passive range of motion, no joint swelling. Psychiatric: Normal mood and affect. Skin: Warm and dry, no rash. Neurologic: Cranial nerve II to XII are grossly intact. No focal neurologic deficits. Assessment & Plan Assessment/Plan (1) ESRD (end stage renal disease): (2) Hyponatremia: (3) Hypotension: PLAN: Plan Impression/Plan: 78-year-old man who is known to our service for ESRD, type 2 diabetes mellitus, hypertension, CAD, HFpEF with diastolic dysfunction, moderate pulmonary hypertension, KIMBERLY, and hyperlipidemia. The patient presents to the hospital with hypotension/circulatory shock which is being investigated. Nephrology is following for ESRD and dialysis management. ESRD. The patient recently started dialysis on 09/17/2023. The patient dialyzes at [facility] dialysis later on MWF schedule. He is followed here by my partner, Dr. Barahona. He had known history of CKD stage IV, had repeated admissions due to fluid overload, CEE. He was finally started on dialysis about 2 weeks ago mostly with volume control. Breathing has improved since starting dialysis. His dry weight is significantly lower than before. Presented to the hospital with chills. Blood culture was positive for MRSA. Complains of significant left wrist pain. On examination, this is swollen and tender. Blood cultures positive. Suspect there might be some joint seeding. ID on consult, formal consult pending. Hyponatremia. Asymptomatic. Should improve with dialysis Circulatory shock. The patient is being covered with IV hydrocortisone for adrenal insufficiency. He is also being treated for sepsis with empiric antimicrobial. There is no evidence of exit site infection of TDC. Discussed with ICU attending Due to MRSA bacteremia, catheter may need to be removed. Will wait for ID consult
--- NOTE | 2023-10-05 16:17 | CON.PCM.SX_ITS ---
Assessment & Plan Assessment/Plan (1) Septic shock: PLAN: The patient has MRSA bacteremia and has a recently placed tunneled dialysis catheter in the right chest. I was consulted for removal of this due to the bacteremia. After seeing the patient the patient informed he was on Coumadin and his INR this morning is 3.9. I recommend that the INR be down low enough to remove his catheter and then I will remove it. Awaiting ID consult as well to make sure that it has to come out. Johnny Campos MD Pager: [facility] [address] [place], [place] [id number], [address] [place] [address] Office: HPI Consult Data Date of Consult: 10/05/23 HPI Narrative HPI Narrative: ANTWAN GE, is a 78 M who is admitted to the ICU with sepsis. Patient was found to have MRSA bacteremia and I was consulted to remove the tunneled dialysis catheter. The tunneled dialysis catheter was placed about 2 weeks ago by my partner. Patient is having chills. He does not report any other issues at this time. [facility] Medical History Abnormal ankle brachial index (LOKI) Acute hypoxic respiratory failure Anemia due to stage 3b chronic kidney disease Back pain BPH (benign prostatic hyperplasia) Cardiology follow-up encounter CHF NYHA class III Chronic combined systolic and diastolic CHF (congestive heart failure) Chronic kidney disease, stage 3b Chronic kidney disease, stage 4 (severe) Claudication Constipation CPAP (continuous positive airway pressure) dependence Diabetes Diarrhea Dietary restriction Elevated troponin (01/2021) Essential (primary) hypertension Gout Heartburn History of echocardiogram History of edema History of irregular heartbeat History of non-ST elevation myocardial infarction (NSTEMI) (07/25/21) History of pain when walking History of steroid therapy History of tobacco use HLD (hyperlipidemia) Hypertension Hypertrophic cardiomyopathy Hypokalemia Joint pain Lactic acidosis Left bundle branch block Leg cramps Leukocytosis Longstanding persistent atrial fibrillation Mitral valve insufficiency Night sweats 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 Obesity (BMI 30.0-34.9) KIMBERLY (obstructive sleep apnea) Persistent atrial fibrillation Poor appetite Presence of implantable pulmonary artery pressure and heart rate monitoring system (03/25/21) Renal infarct Restless legs Secondary pulmonary arterial hypertension Shortness of breath on exertion Wears glasses Home Medications finasteride 5 mg tablet 5 mg PO DAILY prostate 12/19/20 [History Last Taken 12/22/20] warfarin 2.5 mg tablet 5 mg PO .COMPLEX blood thinner 03/11/21 [History Last Taken 05/31/22] cyanocobalamin (vitamin B-12) 1,000 mcg tablet (Vitamin B-12) 1,000 mcg PO DAILY supplement 06/26/22 [History Last Taken Unknown] carvedilol 6.25 mg tablet 6.25 mg PO BID #60 tabs 05/13/23 [Rx Last Taken Unknown] dapagliflozin propanediol 10 mg tablet (Farxiga) 10 mg PO DAILY diabetes 08/29/23 [History Last Taken Unknown] gabapentin 100 mg capsule 100 mg PO QHS unsure 08/29/23 [History Last Taken Unknown] pantoprazole 40 mg tablet,delayed release 40 mg PO DAILY prevent stomach ulcers 08/29/23 [History Last Taken Unknown] allopurinol 100 mg tablet 200 mg (2 x 100 mg) PO DAILYCM #30 tabs 09/03/23 [Rx Last Taken Unknown] insulin glargine-yfgn 100 unit/mL (3 mL) subcutaneous pen 10 unit (0.1 mL) subcut DAILY #15 mL 09/03/23 [Rx Last Taken Unknown] pen needle, diabetic 33 gauge x 3/16 #100 ea 09/03/23 [Rx Last Taken Unknown] metolazone 2.5 mg tablet 2.5 mg PO .Thursday #8 tabs 09/09/23 [Rx Last Taken Unknown] epinephrine 0.3 mg/0.3 mL injection, auto-injector 0.3 mg (0.3 mL) IM Q4H PRN anaphylaxis #2 ea 10/03/23 [Rx Last Taken Unknown] bumetanide 0.5 mg tablet 0.5 mg PO BID 10/04/23 [History Last Taken Unknown] prednisone 20 mg tablet 30 mg PO .COMPLEX 10/04/23 [History Last Taken Unknown] Allergy/AdvReac Type Severity Reaction Status Date / Time metoprolol AdvReac bradycardia Verified 10/03/23 13:11 rivaroxaban [From Xarelto] AdvReac Bleeding Verified 10/04/23 15:42 Family History Father Heart disease Sister Heart disease Brother Heart disease Other Arthritis CVA (cerebral vascular accident) Depression Mental disorder Surgical History History of appendectomy History of cataract extraction History of left heart catheterization (02/19/21) History of transurethral resection of prostate (01/2019) History of ventricular septal myectomy (2000) Hx of umbilical hernia repair Social History Smoking Status: Former smoker how long ago did patient quit smokin years ago 0.25ppd second hand exposure: Yes alcohol intake: never caffeine: Yes Type: coffee Number of servings: 1 what type of physical activity do you participate in: other details: treadmill frequency: daily ROS Cardiovascular Cardiovascular: Denies chest pain Respiratory/Chest Respiratory/Chest: Denies cough or dyspnea Gastrointestinal Gastrointestinal: Denies abdominal pain, nausea or vomiting Genitourinary Genitourinary: Denies change in urinary stream Musculoskeletal Musculoskeletal: Denies abnormal gait Integumentary Integumentary: Denies new lesions Neurologic Neurologic: Denies abnormal gait Psychiatric Psychiatric: Denies anxiety Physical Exam Const alert and oriented x3 HEENT normocephalic Eyes PERRL Resp normal respiratory effort Cardio Rate: regular rate Rhythm: regular rhythm GI soft to palpation and non-tender Medical Records Data Medical Nutrition Assessment Dietitian: Malnutrition Criteria Met Start: 10/05/23 06:56 Freq: Status: Active Protocol: Document 10/05/23 06:56 SLA (Rec: 10/05/23 06:56 SLA Desktop) Nutrition Malnutrition Evidence of Malnutrition Exists Yes Malnutrition (severe): Acute Illness/Injury Evidenced By Suboptimal Energy Intake ( Severe),Weight Loss (Severe) Intake Problem Inadequate Oral Intake Status Inactive Problem Clinical Problem Acute Disease or Injury Related Malnutrition Etiology related to acute illness and recent initiation of HD Signs/Symptoms as evidenced by <50% of est nutritional needs x 2 wks and 11.6% wt loss x 6 wks Status Active Problem Altered Nutrient-Related Laboratory Values Etiology related to diabetes and renal dysfunction Signs/Symptoms as evidenced by gluc 193, BUN 39, Cr 2.96 Status Active Problem Recommendation Dietitian Recommendations/Changes Will change diet to Renal general w/ Consistent CHO Will order 4 oz glucerna shake 4x/day w/ medpass for increased nutrition if consumed. Lab / Micro Data 10/05/23 04:25 10/05/23 04:25 Labs: Laboratory Results - last 24 hr 10/04/23 17:10: TSH 0.26 L 10/05/23 04:25: WBC 14.6 H, RBC 3.24 L, Hgb 9.4 L, Hct 27.9 L, MCV 86.1, MCH 29.0, MCHC 33.7, RDW Std Deviation 46.1 H, RDW Coeff of Kiersten 14.6, Plt Count 77 L , MPV 12.1 H, Immature Gran % (Auto) 1.300 H, Neut % (Auto) 90.9 H, Lymph % (Auto) 3.0 L, [place] % (Auto) 4.6, Eos % (Auto) 0.0, Baso % (Auto) 0.2, Absolute Neuts (auto) 13.3 H, Absolute Lymphs (auto) 0.44 L, Nucleated RBC % 0, Differential Comment SCANNED, Platelet Estimate MKD DEC, Plt Morphology Comment LARGE, PT 39.2 H, INR 3.9, Sodium 127 L, Potassium 2.9 L, Chloride 91 L, Carbon Dioxide 25.0, Anion Gap 11, BUN 55 H, Creatinine 3.63 H, Estim Creat Clear Calc 15.41, Est GFR (MDRD) Af Amer 21 L, Est GFR (MDRD) Non-Af 17 L, BUN/Creatinine Ratio 15.2, Glucose 301 H, Calcium 8.3 L, Total Bilirubin 1.40 H, AST 50 H, ALT 34, Alkaline Phosphatase 61, Total Protein 5.8 L, Albumin 3.3, Globulin 2.5, Albumin/Globulin Ratio 1.3 10/05/23 10:17: POC Glucose 177 H 10/05/23 11:45: POC Glucose 201 H Micro: Microbiology 10/04/23 14:20 Blood Culture (Wb) - Left Hand Blood Culture - Preliminary Staphylococcus aureus 10/04/23 14:30 Blood Culture (Wb) - Right Wrist Bacteria Detection (PCR) - Final Meth. resistant Staph. aureus 10/04/23 14:30 Blood Culture (Wb) - Right Wrist Blood Culture - Preliminary Staphylococcus aureus 10/04/23 10:37 Mucosa - Nose Respiratory Panel (PCR) - Final ABG Data ABG results: ABG 10/04/23 17:07 Specimen Type ART Sample Site L Brach pH 7.53 H Bicarbonate Actual 24.6 Total CO2 26 Base Excess 2 O2 Saturation 99 O2 % 4.0 ABG pCO2 29.3 L ABG pO2 116 H Rajendra Test Positive O2 Delivery Device Cannula Vent Mode Not entered Rhythm Strip Rhythm Strip: A-fib Rate: 60 Imaging Radiology Impression Echocardiogram 10/04/23 16:11 Interpretation Summary Mild concentric left ventricular hypertrophy. Severe anterior hypokinesis. Estimated ejection fraction 40%. At least grade 2 diastolic dysfunction. Mild-Moderate (1-2+) mitral valve insufficiency. Moderately severe (3+) tricuspid valve insufficiency. Right ventricular systolic pressure estimated to be 66 mmHg. Mild (1+) aortic valve insufficiency. Mild (1+) pulmonic valve insufficiency. Aortic root atherosclerotic and calcified. Ordering Physician: Gurdeep De Luna Referring Physician: Howard Escobar Performed By: Nila Lujan RDCS Chest/Abdomen/Pelvis CT 10/04/23 16:39 IMPRESSION: 1. There are innumerable scattered pulmonary nodules bilaterally, the largest measuring up to approximately 8 mm. These were not appreciable on the prior CT chest and may very well be infectious/inflammatory. Fleischner Society Guidelines (MacMahon, et al. Radiology 2017; 284(1):228-43) suggest the following. For low-risk patients recommend follow-up chest CT at 3-6 months. If unchanged consider an additional follow-up CT at 18-24 months. For high-risk patients initial follow-up chest CT at 3-6 months and if unchanged, 18-24 months. 2. Cholelithiasis without secondary signs of cholecystitis. 3. Atrophic changes of the right kidney. No hydronephrosis or obstructive urolithiasis. 4. Prostatomegaly. 5. Coronary artery calcifications. Cardiomegaly. No pericardial effusion. 6. Colonic diverticulosis. No discrete evidence of acute diverticulitis. 7. Findings suggestive of ankylosing spondylitis. No acute osseous findings. Electronically Signed: Stephen Vital DO at 18:02 EST ,
[2023-10-05] MEDS: Midodrine HCl 5 MG Tablet 10 MG PO (16:49)
[2023-10-05 16:50] LABS: Bedside Glucose 326 mg/dL (74-106)
[2023-10-05] MEDS: Glucerna Shake 120 ML LIQUID PO ×2 (17:33→20:28)
--- NOTE | 2023-10-05 20:11 | CON.PCM.ID_ITS ---
Assessment & Plan Assessment/Plan (1) ESRD (end stage renal disease): (2) Septic shock: PLAN: septic shock due to MRSA bacteremia - suspect HD cath as source. TTE showed no veg. Will repeat bcx. Recommend HD cath removal. Cont vanc/zosyn for now while rest of cxs pending. Will follow, thank you (3) MRSA bacteremia: HPI Consult Data Date of Consult: 10/05/23 HPI Narrative Reason for Consultation: bacteremia HPI Narrative: ANTWAN GE, is a 78 M with ESRD, R chest permacath, presented 2/4 with one day h/o weakness. No fever, some chills. No rash, no new joint pain. No n/v/d. No pain with permacath. Admitted to icu, started on vanc/zosyn, feeling a little better. Full ROS performed and neg except as noted above. [facility] Medical History Abnormal ankle brachial index (LOKI) Acute hypoxic respiratory failure Anemia due to stage 3b chronic kidney disease Back pain BPH (benign prostatic hyperplasia) Cardiology follow-up encounter CHF NYHA class III Chronic combined systolic and diastolic CHF (congestive heart failure) Chronic kidney disease, stage 3b Chronic kidney disease, stage 4 (severe) Claudication Constipation CPAP (continuous positive airway pressure) dependence Diabetes Diarrhea Dietary restriction Elevated troponin (01/2021) Essential (primary) hypertension Gout Heartburn History of echocardiogram History of edema History of irregular heartbeat History of non-ST elevation myocardial infarction (NSTEMI) (07/25/21) History of pain when walking History of steroid therapy History of tobacco use HLD (hyperlipidemia) Hypertension Hypertrophic cardiomyopathy Hypokalemia Joint pain Lactic acidosis Left bundle branch block Leg cramps Leukocytosis Longstanding persistent atrial fibrillation Mitral valve insufficiency Night sweats 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 Obesity (BMI 30.0-34.9) KIMBERLY (obstructive sleep apnea) Persistent atrial fibrillation Poor appetite Presence of implantable pulmonary artery pressure and heart rate monitoring system (03/25/21) Renal infarct Restless legs Secondary pulmonary arterial hypertension Shortness of breath on exertion Wears glasses Home Medications finasteride 5 mg tablet 5 mg PO DAILY prostate 12/19/20 [History Last Taken 12/22/20] warfarin 2.5 mg tablet 5 mg PO .COMPLEX blood thinner 03/11/21 [History Last Taken 05/31/22] cyanocobalamin (vitamin B-12) 1,000 mcg tablet (Vitamin B-12) 1,000 mcg PO DAILY supplement 06/26/22 [History Last Taken Unknown] carvedilol 6.25 mg tablet 6.25 mg PO BID #60 tabs 05/13/23 [Rx Last Taken Unknown] dapagliflozin propanediol 10 mg tablet (Farxiga) 10 mg PO DAILY diabetes 08/29/23 [History Last Taken Unknown] gabapentin 100 mg capsule 100 mg PO QHS unsure 08/29/23 [History Last Taken Unknown] pantoprazole 40 mg tablet,delayed release 40 mg PO DAILY prevent stomach ulcers 08/29/23 [History Last Taken Unknown] allopurinol 100 mg tablet 200 mg (2 x 100 mg) PO DAILYCM #30 tabs 09/03/23 [Rx Last Taken Unknown] insulin glargine-yfgn 100 unit/mL (3 mL) subcutaneous pen 10 unit (0.1 mL) subcut DAILY #15 mL 09/03/23 [Rx Last Taken Unknown] pen needle, diabetic 33 gauge x 3/16 #100 ea 09/03/23 [Rx Last Taken Unknown] metolazone 2.5 mg tablet 2.5 mg PO .Thursday #8 tabs 09/09/23 [Rx Last Taken Unknown] epinephrine 0.3 mg/0.3 mL injection, auto-injector 0.3 mg (0.3 mL) IM Q4H PRN anaphylaxis #2 ea 10/03/23 [Rx Last Taken Unknown] bumetanide 0.5 mg tablet 0.5 mg PO BID 10/04/23 [History Last Taken Unknown] prednisone 20 mg tablet 30 mg PO .COMPLEX 10/04/23 [History Last Taken Unknown] Allergy/AdvReac Type Severity Reaction Status Date / Time metoprolol AdvReac bradycardia Verified 10/03/23 13:11 rivaroxaban [From Xarelto] AdvReac Bleeding Verified 10/04/23 15:42 Family History Father Heart disease Sister Heart disease Brother Heart disease Other Arthritis CVA (cerebral vascular accident) Depression Mental disorder Surgical History History of appendectomy History of cataract extraction History of left heart catheterization (02/19/21) History of transurethral resection of prostate (01/2019) History of ventricular septal myectomy (2000) Hx of umbilical hernia repair Social History Smoking Status: Former smoker how long ago did patient quit smokin years ago 0.25ppd second hand exposure: Yes alcohol intake: never caffeine: Yes Type: coffee Number of servings: 1 what type of physical activity do you participate in: other details: treadmill frequency: daily Physical Exam Const alert and no apparent distress General Appearance: cooperative HEENT normocephalic and head/scalp atraumatic Eyes PERRL and EOMs intact bilaterally Neck supple and No nodes Resp normal air movement and clear to auscultation bilaterally Cardio regular rate and regular rhythm GI soft to palpation, non-tender and non-distended Extremity Extremity Narrative: No spine tenderness General Extremity: edema Skin Skin Narrative: no splinter hemorrhages on hands or feet. No inflammation around R chest HD cath Neuro CN's II-XII intact bilaterally Medical Records Data Medical Nutrition Assessment Dietitian: Malnutrition Criteria Met Start: 10/05/23 06:56 Freq: Status: Active Protocol: Document 10/05/23 06:56 SLA (Rec: 10/05/23 06:56 SLA Desktop) Nutrition Malnutrition Evidence of Malnutrition Exists Yes Malnutrition (severe): Acute Illness/Injury Evidenced By Suboptimal Energy Intake ( Severe),Weight Loss (Severe) Intake Problem Inadequate Oral Intake Status Inactive Problem Clinical Problem Acute Disease or Injury Related Malnutrition Etiology related to acute illness and recent initiation of HD Signs/Symptoms as evidenced by <50% of est nutritional needs x 2 wks and 11.6% wt loss x 6 wks Status Active Problem Altered Nutrient-Related Laboratory Values Etiology related to diabetes and renal dysfunction Signs/Symptoms as evidenced by gluc 193, BUN 39, Cr 2.96 Status Active Problem Recommendation Dietitian Recommendations/Changes Will change diet to Renal general w/ Consistent CHO Will order 4 oz glucerna shake 4x/day w/ medpass for increased nutrition if consumed. Lab / Micro Data Attestation: I reviewed the patient's lab results. 10/05/23 04:25 10/05/23 04:25 Labs: Laboratory Results - last 24 hr 10/05/23 04:25: WBC 14.6 H, RBC 3.24 L, Hgb 9.4 L, Hct 27.9 L, MCV 86.1, MCH 29.0, MCHC 33.7, RDW Std Deviation 46.1 H, RDW Coeff of Kiersten 14.6, Plt Count 77 L , MPV 12.1 H, Immature Gran % (Auto) 1.300 H, Neut % (Auto) 90.9 H, Lymph % (Auto) 3.0 L, [place] % (Auto) 4.6, Eos % (Auto) 0.0, Baso % (Auto) 0.2, Absolute Neuts (auto) 13.3 H, Absolute Lymphs (auto) 0.44 L, Nucleated RBC % 0, Differential Comment SCANNED, Platelet Estimate MKD DEC, Plt Morphology Comment LARGE, PT 39.2 H, INR 3.9, Sodium 127 L, Potassium 2.9 L, Chloride 91 L, Carbon Dioxide 25.0, Anion Gap 11, BUN 55 H, Creatinine 3.63 H, Estim Creat Clear Calc 15.41, Est GFR (MDRD) Af Amer 21 L, Est GFR (MDRD) Non-Af 17 L, BUN/Creatinine Ratio 15.2, Glucose 301 H, Calcium 8.3 L, Total Bilirubin 1.40 H, AST 50 H, ALT 34, Alkaline Phosphatase 61, Total Protein 5.8 L, Albumin 3.3, Globulin 2.5, Albumin/Globulin Ratio 1.3 10/05/23 10:17: POC Glucose 177 H 10/05/23 11:45: POC Glucose 201 H 10/05/23 16:33: POC Glucose 326 H Micro: Microbiology 10/04/23 14:20 Blood Culture (Wb) - Left Hand Blood Culture - Preliminary Staphylococcus aureus 10/04/23 14:30 Blood Culture (Wb) - Right Wrist Bacteria Detection (PCR) - Final Meth. resistant Staph. aureus 10/04/23 14:30 Blood Culture (Wb) - Right Wrist Blood Culture - Preliminary Staphylococcus aureus Rhythm Strip Rhythm Strip: A-fib Rate: 60 Imaging Radiology Impression Echocardiogram 10/04/23 16:11 Interpretation Summary Mild concentric left ventricular hypertrophy. Severe anterior hypokinesis. Estimated ejection fraction 40%. At least grade 2 diastolic dysfunction. Mild-Moderate (1-2+) mitral valve insufficiency. Moderately severe (3+) tricuspid valve insufficiency. Right ventricular systolic pressure estimated to be 66 mmHg. Mild (1+) aortic valve insufficiency. Mild (1+) pulmonic valve insufficiency. Aortic root atherosclerotic and calcified. Ordering Physician: Gurdeep De Luna Referring Physician: Howard Escobar Performed By: Nila Lujan, AURE
[2023-10-06] VITALS (26 sets, daily range): BP systolic 87–157; BP diastolic 51–88; PULSE 50–82; RESP 14–24; TEMP 36.2–37; O2SAT 93–98; BMI 28.0
[2023-10-06] MEDS: Hydrocortisone Sod Succinate 100 MG/2 ML Vial 50 MG IV ×3 (04:36→20:39)
[2023-10-06] MEDS: 0.9% Saline Lock 10 ML Syringe IV ×2 (04:37→20:39)
[2023-10-06 04:55] LABS: Absolute Lymphocyte Count 0.58 X10^3/uL (0.83-4.51); Absolute Neutrophil Count 13.2 X10^3/uL (2.0-7.7); Basophil# 0.07 X10^3/uL; Basophil% 0.5 % (0-1); Eosinophil# 0.05 X10^3/uL; Eosinophils% 0.3 % (0-5); Hematocrit 29.9 % (40-54); Hemoglobin 10.2 g/dL (13.0-16.5); Lymphocyte # 0.58 X10^3/ul (0.83-4.51); Lymphocyte % 3.7 % (19-41); Mean Corp Hgb Conc 34.1 g/dL (32-36); Mean Corpuscular Hgb 29.4 pg (27.0-32.0); Mean Corpuscular Volume 86.2 fL (80-94); Mean Platelet Vol. 12.1 fl (6.2-12.0); Monocyte# 1.14 X10^3/uL; Monocyte% 7.4 % (0-10); NRBC Flagged by Analyzer 0.1 % (0-5); Neutrophil # 13.18 X10^3/uL (2.7-7.7); Neutrophil % 85.1 % (47-70); POSITIVE COUNT YES; POSITIVE DIFFERENTIAL YES; Platelet Count 72 K/mm3 (150-450); RBC Distribution Width CV 14.9 % (11.6-14.6); RBC Distribution Width SD 46.8 fl (35.1-43.9); Red Blood Count 3.47 M/mm3 (4.6-6.2); White Blood Count 15.5 K/mm3 (4.4-11.0)
[2023-10-06 05:04] LABS: Bedside Glucose 289 mg/dL (74-106)
[2023-10-06 05:07] LABS: Anion Gap 9 (5-15); BUN 52 mg/dL (7-18); BUN/Creat Ratio 19.6 RATIO (10-20); Calcium,Total 8.9 mg/dL (8.5-10.1); Chloride 97 mmol/L (98-107); Creatinine, Serum 2.65 mg/dL (0.70-1.30); EST Glomerular Filtration Rate 25 mL/min (>60); Est Glom Filt Rate - Afr Amer 30 mL/min (>60); Estimated Creatinine Clearance 21.23 ml/min; Glucose 319 mg/dL (74-106); Magnesium 2.2 mg/dL (1.6-2.6); Sodium Level 128 mmol/L (136-145)
[2023-10-06 05:15] LABS: International Normalized Ratio 3.8; Prothrombin Time (Protime)PT. 38.2 SECONDS (11.7-14.9)
--- NOTE | 2023-10-06 06:51 | PCM.PN.INT ---
Assessment & Plan Assessment/Plan (1) Septic shock: PLAN: Plan RECOMMENDATIONS: 1. Continue antibiotics per ID recommendations. 2. Administer vitamin K as ordered. Recheck INR later today. 3. Tentative plans for HD line removal once coagulopathy improves. 4. Decrease frequency of stress dose steroids to 50 mg every 12. 5. Dialysis support per nephrology recommendations. 6. Nocturnal PAP therapy per home regimen. IMPRESSIONS: 1. Septic shock The patient initially presented to the hospital with generalized weakness but went on to develop fluid refractory hypotension requiring vasopressor support, in the setting of MRSA bacteremia, most likely secondary to infected HD catheter. The patient has been weaned from vasopressor support. He remains on antibiotics per ID recommendations. There are tentative plans to remove his dialysis catheter, once his coagulopathy has improved. Plan to continue to wean stress dose steroids as tolerated by hemodynamics. 2. History of heart failure with preserved ejection fraction/pulmonary hypertension I do suspect that his pulmonary hypertension is likely multifactorial with underlying cardiac implications and potentially related to his underlying autoimmune condition. The patient was being managed on a prednisone taper following his last hospitalization, with concern for potential adrenal insufficiency as a consequence. 3. Positive autoimmune workup Unclear autoimmune diagnosis, as the patient is followed by Dr. Conner on an outpatient basis. The patient was amidst a prednisone taper on an outpatient basis. While underlying adrenal insufficiency is certainly a possibility, the patient is also bacteremic. Therefore, he will be continued on stress dose steroids for now. 4. History of obstructive sleep apnea/atrial fibrillation/diabetes mellitus/hypertension/BPH Complicates care, management, recovery and prognosis. Continue supportive care and home medications as indicated. Continue nocturnal PAP therapy per home regimen. This note was generated with [employer] dictation software. It may contain incorrect words, spelling, and punctuation that were not noted in checking the note before signing. Subjective Subjective The patient was seen and examined at the bedside this morning. Events from the last 24 hours have been reviewed. The patient is currently afebrile, hemodynamically stable and maintaining appropriate oxygen saturations on room air. There are tentative plans to remove the dialysis catheter, once the patient's INR has normalized. INR remains elevated this morning at 3.8. Objective Data Objective Data The patient's most recent lab work, culture data and imaging studies have all been personally reviewed. Preliminary blood culture dated October 04 was positive for MRSA. Repeat blood cultures dated October 05 are still pending. Vital Signs: Vital Signs Temp Pulse Resp BP Pulse Ox O2 Del Method O2 Flow Rate 98.6 F 58 L 15 102/51 L 95 Room Air 2 10/06/23 04:00 10/06/23 06:00 10/06/23 06:00 10/06/23 06:00 10/06/23 06:00 10/06/23 06:00 10/04/23 19:00 FiO2 30 10/05/23 20:00 Oxygen Flow Rate (L/min) 2 Oxygen Delivery Method Room Air Weight: 168 lb 10.458 oz Body Mass Index (BMI) 28.0 Intake & Output: Intake and Output for Last 24 Hours 10/04/23 10/05/23 10/06/23 23:59 23:59 23:59 Intake Total 2026.00 / 2035.40 999.0 / 999.0 150 / 150 Output Total 1600 / 1600 Balance 2026.00 / 1836.40 -601.0 / -601.0 150 / 150 Medical Nutrition Assessment Dietitian: Malnutrition Criteria Met Start: 10/05/23 06:56 Freq: Status: Active Protocol: Document 10/05/23 06:56 SLA (Rec: 10/05/23 06:56 SLA Desktop) Nutrition Malnutrition Evidence of Malnutrition Exists Yes Malnutrition (severe): Acute Illness/Injury Evidenced By Suboptimal Energy Intake ( Severe),Weight Loss (Severe) Intake Problem Inadequate Oral Intake Status Inactive Problem Clinical Problem Acute Disease or Injury Related Malnutrition Etiology related to acute illness and recent initiation of HD Signs/Symptoms as evidenced by <50% of est nutritional needs x 2 wks and 11.6% wt loss x 6 wks Status Active Problem Altered Nutrient-Related Laboratory Values Etiology related to diabetes and renal dysfunction Signs/Symptoms as evidenced by gluc 193, BUN 39, Cr 2.96 Status Active Problem Recommendation Dietitian Recommendations/Changes Will change diet to Renal general w/ Consistent CHO Will order 4 oz glucerna shake 4x/day w/ medpass for increased nutrition if consumed. Lab / Micro Data Attestation: I reviewed the patient's lab results. 10/06/23 04:35 10/06/23 04:35 Labs: Laboratory Results - last 24 hr 10/05/23 04:25: WBC 14.6 H, RBC 3.24 L, Hgb 9.4 L, Hct 27.9 L, MCV 86.1, MCH 29.0, MCHC 33.7, RDW Std Deviation 46.1 H, RDW Coeff of Kiersten 14.6, Plt Count 77 L, MPV 12.1 H, Immature Gran % (Auto) 1.300 H, Neut % (Auto) 90.9 H, Lymph % (Auto) 3.0 L, [place] % (Auto) 4.6, Eos % (Auto) 0.0, Baso % (Auto) 0.2, Absolute Neuts (auto) 13.3 H, Absolute Lymphs (auto) 0.44 L, Nucleated RBC % 0, Differential Comment SCANNED, Platelet Estimate MKD DEC, Plt Morphology Comment LARGE 10/05/23 10:17: POC Glucose 177 H 10/05/23 11:45: POC Glucose 201 H 10/05/23 16:33: POC Glucose 326 H 10/06/23 04:35: WBC 15.5 H, RBC 3.47 L, Hgb 10.2 L, Hct 29.9 L, MCV 86.2, MCH 29.4, MCHC 34.1, RDW Std Deviation 46.8 H, RDW Coeff of Kiersten 14.9 H, Plt Count 72 L, MPV 12.1 H, Immature Gran % (Auto) 3.000 H, Neut % (Auto) 85.1 H, Lymph % (Auto) 3.7 L, [place] % (Auto) 7.4, Eos % (Auto) 0.3, Baso % (Auto) 0.5, Absolute Neuts (auto) 13.2 H, Absolute Lymphs (auto) 0.58 L, Nucleated RBC % 0.1, PT 38.2 H, INR 3.8, Sodium 128 L, Potassium 4.0, Chloride 97 L, Carbon Dioxide 22.0, Anion Gap 9, BUN 52 H, Creatinine 2.65 H, Estim Creat Clear Calc 21.23, Est GFR (MDRD) Af Amer 30 L, Est GFR (MDRD) Non-Af 25 L, BUN/Creatinine Ratio 19.6, Glucose 319 H, Calcium 8.9, Phosphorus 2.0 L, Magnesium 2.2 10/06/23 04:44: POC Glucose 289 H Micro: Microbiology 10/04/23 14:20 Blood Culture (Wb) - Left Hand Blood Culture - Preliminary Staphylococcus aureus 10/04/23 14:30 Blood Culture (Wb) - Right Wrist Bacteria Detection (PCR) - Final Meth. resistant Staph. aureus 10/04/23 14:30 Blood Culture (Wb) - Right Wrist Blood Culture - Preliminary Staphylococcus aureus 10/04/23 10:37 Mucosa - Nose Respiratory Panel (PCR) - Final 10/04/23 10:18 Mucosa - Nose SARS-CoV-2, Influenza & RSV (PCR) - Final ABG Data ABG results: ABG 10/04/23 17:07 Specimen Type ART Sample Site L Brach pH 7.53 H Bicarbonate Actual 24.6 Total CO2 26 Base Excess 2 O2 Saturation 99 O2 % 4.0 ABG pCO2 29.3 L ABG pO2 116 H Rajendra Test Positive O2 Delivery Device Cannula Vent Mode Not entered Radiography Diagnostic Testing: Radiology Impression Echocardiogram 10/04/23 16:11 Interpretation Summary Mild concentric left ventricular hypertrophy. Severe anterior hypokinesis. Estimated ejection fraction 40%. At least grade 2 diastolic dysfunction. Mild-Moderate (1-2+) mitral valve insufficiency. Moderately severe (3+) tricuspid valve insufficiency. Right ventricular systolic pressure estimated to be 66 mmHg. Mild (1+) aortic valve insufficiency. Mild (1+) pulmonic valve insufficiency. Aortic root atherosclerotic and calcified. Ordering Physician: Gurdeep De Luna Referring Physician: Howard Escobar Performed By: Nila Lujan RDCS Rhythm Strip Rhythm Strip: A-fib Rate: 60 Physical Exam Const alert and no apparent distress General Appearance: cooperative HEENT normocephalic, head/scalp atraumatic and moist oral mucous membranes Eyes PERRL, EOMs intact bilaterally and conjunctivae normal Neck supple General: trachea midline Chest inspection of chest normal Chest Narrative: Stable HD line. Resp normal respiratory effort Auscultation: Negative for rales, rhonchi or wheezes Cardio S1 normal heart sound and S2 normal heart sound Rhythm: abnormal rhythm GI normal to inspection, nondistended, normoactive bowel sounds Extremity no clubbing, cyanosis or edema Skin no rashes or lesions noted Neuro CN's II-XII intact bilaterally, moves all extremities and no focal motor deficits Psych cooperative and affect normal Charges/Coding Visit Charges Inpatient E&M: 46985 Subs Hosp L2
--- NOTE | 2023-10-06 07:33 | PCM.PN.HOSP ---
Reason for Visit Reason for Visit: Diagnoses Sepsis, unspecified organism (10/04/23) Methicillin resistant Staphylococcus aureus infection as the cause of diseases classified elsewhere (10/04/23) Addisonian crisis (10/04/23) Hypo-osmolality and hyponatremia (10/04/23) Other hypertrophic cardiomyopathy (10/04/23) Left bundle-branch block, unspecified (10/04/23) Other persistent atrial fibrillation (10/04/23) Chronic combined systolic (congestive) and diastolic (congestive) heart failure (10/04/23) Hypotension, unspecified (10/04/23) End stage renal disease (10/04/23) Rash and other nonspecific skin eruption (10/04/23) Other malaise (10/04/23) Severe sepsis with septic shock (10/04/23) Bacteremia (10/04/23) Other specified abnormal findings of blood chemistry (10/04/23) 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 Almonte with infectious disease plan is for patient's tunneled dialysis catheter to be removed Objective Data Objective Data Vital Signs: Vital Signs Temp Pulse Resp BP Pulse Ox O2 Del Method O2 Flow Rate 98.6 F 65 16 108/66 94 Room Air 2 10/06/23 04:00 10/06/23 07:00 10/06/23 07:00 10/06/23 07:00 10/06/23 07:00 10/06/23 07:00 10/04/23 19:00 FiO2 30 10/05/23 20:00 Oxygen Flow Rate (L/min) 2 Oxygen Delivery Method Room Air Weight: 76.5 kg Body Mass Index (BMI) 28.0 Intake & Output: Intake and Output for Last 24 Hours 10/04/23 10/05/23 10/06/23 23:59 23:59 23:59 Intake Total 2026. / 2035.40 999.0 / 999.0 150 / 150 Output Total 1600 / 1600 Balance 2026.00 / 1836.40 -601.0 / -601.0 150 / 150 Medical Nutrition Assessment Dietitian: Malnutrition Criteria Met Start: 10/05/23 06:56 Freq: Status: Active Protocol: Document 10/05/23 06:56 SLA (Rec: 10/05/23 06:56 [facility] Desktop) Nutrition Malnutrition Evidence of Malnutrition Exists Yes Malnutrition (severe): Acute Illness/Injury Evidenced By Suboptimal Energy Intake ( Severe),Weight Loss (Severe) Intake Problem Inadequate Oral Intake Status Inactive Problem Clinical Problem Acute Disease or Injury Related Malnutrition Etiology related to acute illness and recent initiation of HD Signs/Symptoms as evidenced by <50% of est nutritional needs x 2 wks and 11.6% wt loss x 6 wks Status Active Problem Altered Nutrient-Related Laboratory Values Etiology related to diabetes and renal dysfunction Signs/Symptoms as evidenced by gluc 193, BUN 39, Cr 2.96 Status Active Problem Recommendation Dietitian Recommendations/Changes Will change diet to Renal general w/ Consistent CHO Will order 4 oz glucerna shake 4x/day w/ medpass for increased nutrition if consumed. Lab / Micro Data 10/06/23 04:35 10/06/23 04:35 Labs: Laboratory Results - last 24 hr 10/05/23 04:25: Differential Comment SCANNED, Platelet Estimate MKD DEC, Plt Morphology Comment LARGE 10/05/23 10:17: POC Glucose 177 H 10/05/23 11:45: POC Glucose 201 H 10/05/23 16:33: POC Glucose 326 H 10/06/23 04:35: WBC 15.5 H, RBC 3.47 L, Hgb 10.2 L, Hct 29.9 L, MCV 86.2, MCH 29.4, MCHC 34.1, RDW Std Deviation 46.8 H, RDW Coeff of Kiersten 14.9 H, Plt Count 72 L, MPV 12.1 H, Immature Gran % (Auto) 3.000 H, Neut % (Auto) 85.1 H, Lymph % (Auto) 3.7 L, [place] % (Auto) 7.4, Eos % (Auto) 0.3, Baso % (Auto) 0.5, Absolute Neuts (auto) 13.2 H, Absolute Lymphs (auto) 0.58 L, Nucleated RBC % 0.1, PT 38.2 H, INR 3.8, Sodium 128 L, Potassium 4.0, Chloride 97 L, Carbon Dioxide 22.0, Anion Gap 9, BUN 52 H, Creatinine 2.65 H, Estim Creat Clear Calc 21.23, Est GFR (MDRD) Af Amer 30 L, Est GFR (MDRD) Non-Af 25 L, BUN/Creatinine Ratio 19.6, Glucose 319 H, Calcium 8.9, Phosphorus 2.0 L, Magnesium 2.2 10/06/23 04:44: POC Glucose 289 H Micro: Microbiology 10/04/23 14:30 Blood Culture (Wb) - Right Wrist Bacteria Detection (PCR) - Final Meth. resistant Staph. aureus 10/04/23 14:30 Blood Culture (Wb) - Right Wrist Blood Culture - Final Meth. resistant Staph. aureus 10/04/23 14:20 Blood Culture (Wb) - Left Hand Blood Culture - Preliminary Staphylococcus aureus 10/04/23 10:37 Mucosa - Nose Respiratory Panel (PCR) - Final 10/04/23 10:18 Mucosa - Nose SARS-CoV-2, Influenza & RSV (PCR) - Final Radiography Diagnostic Testing: Radiology Impression Echocardiogram 10/04/23 16:11 Interpretation Summary Mild concentric left ventricular hypertrophy. Severe anterior hypokinesis. Estimated ejection fraction 40%. At least grade 2 diastolic dysfunction. Mild-Moderate (1-2+) mitral valve insufficiency. Moderately severe (3+) tricuspid valve insufficiency. Right ventricular systolic pressure estimated to be 66 mmHg. Mild (1+) aortic valve insufficiency. Mild (1+) pulmonic valve insufficiency. Aortic root atherosclerotic and calcified. Ordering Physician: Gurdeep De Luna Referring Physician: Howard Escobar Performed By: Nila Lujan RDCS Rhythm Strip Rhythm Strip: A-fib Rate: 60 Physical Exam Narrative GENERAL: cooperative HEENT: Atraumatic; normocephalic EYES; Anicteric, Normal Conjunctiva NECK; supple, normal thyroid, RESPIRATORY: Diminished to auscultation CARDIOVASCULAR: Irregular S1-S2 GI: soft, normoactive bowel sounds, : No Renal angle tenderness; EXTREMITIES: No edema, no clubbing, MUSCULOSKELETAL: no muscle wasting NEURO: Awake; no lateralizing signs. SKIN: No Rash PSYCH; Flat affect Assessment & Plan Assessment/Plan (1) Septic shock: PLAN: Plan Patient is an 78-year-old gentleman admitted with progressive generalized weakness with chills. Patient was found to have significant hypotension admitted to the intensive care unit for subsequent management. Infectious workup has so far remained negative to date. 1. Septic shock secondary to MRSA bacteremia ? Suspected to be secondary to combination of septic shock of undetermined etiology as well as possible adrenal crisis. Patient admitted to the intensive care unit managed with IV fluids stress dose of steroid as well as broad-spectrum antibiotic therapy after cultures have been obtained. ? 10/06/2023 patient cultures came back positive for MRSA, Case subsequently discussed with ID plan is for patient tunneled dialysis catheter to be removed. Patient Levophed has been weaned off. 2. Elevated troponin ? Patient troponins continue to rise. Myocardial injury versus acute coronary syndrome. 2D echo ordered consult placed to cardiology 3. Essential hypertension ? Patient antihypertensives held on admission 4. Chronic congestive heart failure ? Currently euvolemic echo from 03/05/2023 demonstrated EF of 53% 5. End-stage renal disease ? Patient is on hemodialysis, consult placed to nephrology for dialysis orders ? 10/06/2023 given patient MRSA bacteremia plan is for patient tunneled dialysis catheter to be removed 6. Paroxysmal A-fib ? Rate controlled on systemic anticoagulation with warfarin with elevated INR currently being held ? 10/06/2023; patient to receive vitamin K to correct his coagulopathy prior to removal of the tunneled dialysis catheter 7. 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 Status post cardioMEMs device placement ? In February 2021 9. Diabetes mellitus type II -patient's oral hypoglycemics held. Placed on long acting insulin, Accu-Cheks a.c. and at bedtime and covered with sliding scale insulin 10. BPH with lower urinary obstructive symptoms - Patient treated with finasteride 11. DVT prophylaxis ? Patient is on Coumadin Time spent in the patient's overall evaluation,decision-making process, review of diagnostic data, adjustment of management, discussion with other providers, nursing nursing and ancillary staff involved in patient's care documentation, 50 Minutes CODE STATUS; DNR Comfort Care arrest no intubation. Charges/Coding Visit Charges Inpatient E&M: [id number] [facility] Hosp L3
[2023-10-06] MEDS: Insulin Lispro 100 UNIT/ML INSULN.PEN SC ×3 (08:31→16:49)
[2023-10-06] MEDS: Phytonadione (Vit K) 10 MG in 0.9% Normal Saline (50mL Bag) 50 ML 150 MG IV (08:31)
[2023-10-06] MEDS: Midodrine HCl 5 MG Tablet 10 MG PO ×2 (08:31→11:36)
[2023-10-06] MEDS: Pantoprazole Sodium 40 MG Tablet PO (08:32)
[2023-10-06] MEDS: Allopurinol 100 MG Tablet 200 MG PO (08:32)
[2023-10-06] MEDS: Finasteride 5 MG Tablet PO (08:32)
[2023-10-06] MEDS: Empagliflozin 25 MG Tablet PO (08:33)
[2023-10-06] MEDS: Insulin Glargine-YFGN 100 UNIT/ML Pen 10 UNIT SC ×2 (08:33→10:13)
[2023-10-06 08:59] LABS: Bedside Glucose 284 mg/dL (74-106)
--- NOTE | 2023-10-06 09:13 | PCM.PN.CARD ---
Subjective Subjective Patient is sitting up in the chair reporting he is feeling better today he denies any significant shortness of breath. His echocardiogram showed an EF of 40% severe anterior hypokinesis biatrial enlargement 3+ tricuspid regurgitation with a right ventricular systolic pressure 66 1-2+ MR and 1+ AI. The plan is to exchange his dialysis catheter but his INR is 3.8 he received vitamin K we are awaiting INR to receive to descend so that his catheter can be exchanged. Objective Data Vital Signs: Vital Signs Temp Pulse Resp BP Pulse Ox O2 Del Method O2 Flow Rate 98.1 F 65 18 140/82 H 98 Room Air 2 10/06/23 08:00 10/06/23 09:00 10/06/23 09:00 10/06/23 09:00 10/06/23 09:00 10/06/23 09:00 10/04/23 19:00 FiO2 30 10/05/23 20:00 Oxygen Flow Rate (L/min) 2 Oxygen Delivery Method Room Air Weight: 168 lb 10.458 oz Body Mass Index (BMI) 28.0 Intake & Output: Intake and Output for Last 24 Hours 10/04/23 10/05/23 10/06/23 23:59 23:59 23:59 Intake Total 2026.00 / 2035.40 999.0 / 999.0 150 / 150 Output Total 1600 / 1600 Balance 2026.00 / 1836.40 -601.0 / -601.0 150 / 150 Lab / Micro Data Attestation: I reviewed the patient's lab results. 10/06/23 04:35 10/06/23 04:35 Labs: Laboratory Results - last 24 hr 10/05/23 10:17: POC Glucose 177 H 10/05/23 11:45: POC Glucose 201 H 10/05/23 16:33: POC Glucose 326 H 10/06/23 04:35: WBC 15.5 H, RBC 3.47 L, Hgb 10.2 L, Hct 29.9 L, MCV 86.2, MCH 29.4, MCHC 34.1, RDW Std Deviation 46.8 H, RDW Coeff of Kiersten 14.9 H, Plt Count 72 L, MPV 12.1 H, Immature Gran % (Auto) 3.000 H, Neut % (Auto) 85.1 H, Lymph % (Auto) 3.7 L, [place] % (Auto) 7.4, Eos % (Auto) 0.3, Baso % (Auto) 0.5, Absolute Neuts (auto) 13.2 H, Absolute Lymphs (auto) 0.58 L, Nucleated RBC % 0.1, PT 38.2 H, INR 3.8, Sodium 128 L, Potassium 4.0, Chloride 97 L, Carbon Dioxide 22.0, Anion Gap 9, BUN 52 H, Creatinine 2.65 H, Estim Creat Clear Calc 21.23, Est GFR (MDRD) Af Amer 30 L, Est GFR (MDRD) Non-Af 25 L, BUN/Creatinine Ratio 19.6, Glucose 319 H, Calcium 8.9, Phosphorus 2.0 L, Magnesium 2.2 10/06/23 04:44: POC Glucose 289 H 10/06/23 08:30: POC Glucose 284 H Micro: Microbiology 10/04/23 14:20 Blood Culture (Wb) - Left Hand Blood Culture - Final Staphylococcus aureus 10/04/23 14:30 Blood Culture (Wb) - Right Wrist Bacteria Detection (PCR) - Final Meth. resistant Staph. aureus 10/04/23 14:30 Blood Culture (Wb) - Right Wrist Blood Culture - Final Meth. resistant Staph. aureus Rhythm Strip Rhythm Strip: A-fib Rate: 74 Cardiology Labs/Tests 10/06/23 04:35: WBC 15.5 H, RBC 3.47 L, Hgb 10.2 L, Hct 29.9 L, MCV 86.2, MCH 29.4, MCHC 34.1, Plt Count 72 L, MPV 12.1 H, Immature Gran % (Auto) 3.000 H, Neut % (Auto) 85.1 H, Lymph % (Auto) 3.7 L, [place] % (Auto) 7.4, Eos % (Auto) 0.3, Baso % (Auto) 0.5, Absolute Neuts (auto) 13.2 H, Nucleated RBC % 0.1, PT 38.2 H, INR 3.8, Sodium 128 L, Potassium 4.0, Chloride 97 L, Carbon Dioxide 22.0, Anion Gap 9, BUN 52 H, Creatinine 2.65 H, Est GFR (MDRD) Af Amer 30 L, Est GFR (MDRD) Non-Af 25 L, BUN/Creatinine Ratio 19.6, Glucose 319 H, Calcium 8.9, Phosphorus 2.0 L, Magnesium 2.2 Rhythm: EKG: ECHO: Stress Test: Cardiac Cath: PCI: CT Surgery: Holter monitor: EPS: PPM: CXR: Chest CT Scan: Radiography Diagnostic Testing: Radiology Impression Echocardiogram 10/04/23 16:11 Interpretation Summary Mild concentric left ventricular hypertrophy. Severe anterior hypokinesis. Estimated ejection fraction 40%. At least grade 2 diastolic dysfunction. Mild-Moderate (1-2+) mitral valve insufficiency. Moderately severe (3+) tricuspid valve insufficiency. Right ventricular systolic pressure estimated to be 66 mmHg. Mild (1+) aortic valve insufficiency. Mild (1+) pulmonic valve insufficiency. Aortic root atherosclerotic and calcified. Ordering Physician: Gurdeep De Luna Referring Physician: Howard Escobar Performed By: Nila Lujan RDCS Physical Exam Const oriented x3 HEENT normocephalic Eyes EOMs intact bilaterally Neck no JVD Chest inspection of chest normal Chest: pectus carninatum Resp normal respiratory effort Auscultation: crackles bilateral base Cardio Rate: regular rate Rhythm: abnormal rhythm irregularly irregular Heart Sounds: S1 normal, S2 normal and murmur systolic I/ soft left sternal border; Negative for click or gallop GI soft to palpation Extremity General Extremity: edema bilateral lower extremity (1+) Skin General Skin Exam: ecchymosis Psych mental status grossly normal Assessment & Plan Assessment/Plan (1) Elevated troponin I level: PLAN: The patient's elevated troponins I do not believe are related to a non-STEMI. This is probably demand ischemia did not feel that any further invasive evaluation is indicated at this point in time. Patient should be continued to be treated for his LV dysfunction with a EF of 40%. He should be reinstituted on his home heart failure medical regiment prior to discharge. (2) Persistent atrial fibrillation: PLAN: The patient is anticoagulated with Coumadin his INR supratherapeutic we are allowing it to drift down so his dialysis catheter can be exchanged. He should be reinstituted when cleared by nephrology to reinstitute Coumadin. DVT prophylaxis can be done with compression devices until then. (3) Mitral valve insufficiency: QUALIFIERS: Cardiac valve disease etiology: nonrheumatic Qualified Code(s): I34.0 - Nonrheumatic mitral (valve) insufficiency PLAN: Patient has mild mitral regurgitation in the face of an LV of 40% ejection fraction. The patient is to be treated with afterload reduction therapy as tolerated his volume is controlled by his dialysis. (4) Cardiomyopathy: QUALIFIERS: Cardiomyopathy type: non-obstructive hypertrophic Qualified Code(s): I42.2 - Other hypertrophic cardiomyopathy PLAN: The patient carries a history of obstructive hypertrophic cardiomyopathy status post septal myectomy. The patient has a combined systolic and diastolic heart failure. His volume is controlled by his dialysis. He he should be considered for afterload reduction therapy with ARB once he has recovered from his sepsis. PLAN: Plan 1. Reinstitute afterload reduction therapy as blood pressure will tolerate once his sepsis is cleared. 2. Reinstitute Coumadin for his chronic atrial fibrillation and monitor his heart rate. He has an underlying left bundle branch block. Charges/Coding Visit Charges Inpatient E&M: [id number] [place] [id number]
--- NOTE | 2023-10-06 10:00 | CASEMGMT ---
ALEENA PONCE Readmission Assessment: Index Diagnosis: Uremia Index Admission Dates: 09/14/23-09/18/23 Index Disposition: Home with OP Dialysis set up Current Admission: 10/04/23 Current Diagnosis: weakness, elevated troponin Pt presented to ER with weakness. Pt was unable to get out of bed. Pt had been in ER day prior for rash and hypotension. Pt received epinephrine and NS bolus and was dc'd home. Pt goes to dialyisis at [facility]. He typically drives himself. Pt reports Thursday he was fine and great. Pt reports taking his meds as ordered. He reports he had called his physician but no visit as he was instructed to come to the ER. ID in room at time of ALEENA PONCE. Pt with MRSA bacteremia, with source suspected as HD cath. ID recommends removal of this. Pt on vanc. Pt also reports issues with wrist and ortho eval recommended, Xrays ordered. Pt became tearful during assessment. He states he is overwhelmed with all that is going on with his health. 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 Pt up in chair and states he did well with therapy. DC Plan: TBD pending course of hospitalization
--- NOTE | 2023-10-06 10:40 | PCM.PN.ID ---
Physical Exam Narrative Feeling better but still with L wrist pain, limited movement. No fever. Const alert and no apparent distress General Appearance: cooperative Resp normal air movement and clear to auscultation bilaterally Cardio regular rate and regular rhythm GI soft to palpation, non-tender and non-distended Skin Skin Narrative: L wrist mild swelling, moderate pain, unable to bend. ID ID: Route of nutrition/ use of supplements: [] Nutritional Intake: [] IV Site: [] [place] Catheter: [] Assessment & Plan Assessment/Plan (1) ESRD (end stage renal disease): (2) Septic shock: PLAN: septic shock due to MRSA bacteremia - suspect HD cath as source. TTE showed no veg. Will repeat bcx. Recommend HD cath removal. Will stop zosyn, cont vanc. Having ongoing L wrist pain and limited ROM, recommend ortho eval. Will order xrays L wrist. Will follow (3) MRSA bacteremia:
--- NOTE | 2023-10-06 10:42 | RAD_ITS ---
EXAM: XR LEFT WRIST, 2 VIEWS CLINICAL INDICATION: septic arthritis TECHNIQUE: Frontal and lateral views of the left wrist. COMPARISON: Left knee radiographs of 09/01/2023. FINDINGS: BONES/JOINTS: Osseous structures remain demineralized. There is stable severe degenerative narrowing of the radiocarpal joint space with associated subchondral sclerosis. Stable degenerative narrowing of the first carpal-metacarpal articulation and of the trapezium-trapezoid articulation, with subchondral sclerosis. There is widening of the scapholunate interval indicating ligamentous injury which is unchanged. Minimal periarticular erosions are noted upon the fourth and fifth metacarpal heads, unchanged, indicating minimal erosive arthritis. MCP joint spaces are preserved. No acute fracture or dislocation. SOFT TISSUES: Increasing soft tissue swelling posterior to the wrist. VASCULATURE: Atherosclerotic vascular calcification is present. Chondrocalcinosis is noted at the wrist. RAD/Wrist 2 Views IMPRESSION: 1. Increasing soft tissue swelling posterior to the wrist. Otherwise stable. 2. No rapidly progressive joint space narrowing or periarticular lytic lesion is seen to indicate septic arthritis at this time. Electronically Signed: Rod Ponce MD at 2:55 EST ,
[2023-10-06 11:59] LABS: Bedside Glucose 404 mg/dL (74-106)
--- NOTE | 2023-10-06 12:00 | PN.RENAL_ITS ---
Subjective Subjective No new complaints. Still complains of wrist pain. Still has tenderness. Objective Data Objective Data Vital Signs: Vital Signs Temp Pulse Resp BP Pulse Ox O2 Del Method O2 Flow Rate 98.1 F 60 17 125/77 H 97 Room Air 2 10/06/23 08:00 10/06/23 11:00 10/06/23 11:00 10/06/23 11:00 10/06/23 11:00 10/06/23 11:00 10/04/23 19:00 FiO2 30 10/05/23 20:00 Oxygen Flow Rate (L/min) 2 Oxygen Delivery Method Room Air Weight: 76.5 kg Body Mass Index (BMI) 28.0 Intake & Output: Intake and Output for Last 24 Hours 10/04/23 10/05/23 10/06/23 23:59 23:59 23:59 Intake Total 2026.00 / 2035.40 999.0 / 999.0 201 / 201 Output Total 1600 / 1600 Balance 2026.00 / 1836.40 -601.0 / -601.0 201 / 201 Medical Nutrition Assessment Dietitian: Malnutrition Criteria Met Start: 10/05/23 06:56 Freq: Status: Active Protocol: Document 10/05/23 06:56 SLA (Rec: 10/05/23 06:56 SLA Desktop) Nutrition Malnutrition Evidence of Malnutrition Exists Yes Malnutrition (severe): Acute Illness/Injury Evidenced By Suboptimal Energy Intake ( Severe),Weight Loss (Severe) Intake Problem Inadequate Oral Intake Status Inactive Problem Clinical Problem Acute Disease or Injury Related Malnutrition Etiology related to acute illness and recent initiation of HD Signs/Symptoms as evidenced by <50% of est nutritional needs x 2 wks and 11.6% wt loss x 6 wks Status Active Problem Altered Nutrient-Related Laboratory Values Etiology related to diabetes and renal dysfunction Signs/Symptoms as evidenced by gluc 193, BUN 39, Cr 2.96 Status Active Problem Recommendation Dietitian Recommendations/Changes Will change diet to Renal general w/ Consistent CHO Will order 4 oz glucerna shake 4x/day w/ medpass for increased nutrition if consumed. Lab / Micro Data 10/06/23 04:35 10/06/23 04:35 Labs: Laboratory Results - last 24 hr 10/05/23 11:45: POC Glucose 201 H 10/05/23 16:33: POC Glucose 326 H 10/06/23 04:35: WBC 15.5 H, RBC 3.47 L, Hgb 10.2 L, Hct 29.9 L, MCV 86.2, MCH 29.4, MCHC 34.1, RDW Std Deviation 46.8 H, RDW Coeff of Kiersten 14.9 H, Plt Count 72 L, MPV 12.1 H, Immature Gran % (Auto) 3.000 H, Neut % (Auto) 85.1 H, Lymph % (Auto) 3.7 L, [place] % (Auto) 7.4, Eos % (Auto) 0.3, Baso % (Auto) 0.5, Absolute Neuts (auto) 13.2 H, Absolute Lymphs (auto) 0.58 L, Nucleated RBC % 0.1, PT 38.2 H, INR 3.8, Sodium 128 L, Potassium 4.0, Chloride 97 L, Carbon Dioxide 22.0, Anion Gap 9, BUN 52 H, Creatinine 2.65 H, Estim Creat Clear Calc 21.23, Est GFR (MDRD) Af Amer 30 L, Est GFR (MDRD) Non-Af 25 L, BUN/Creatinine Ratio 19.6, Glucose 319 H, Calcium 8.9, Phosphorus 2.0 L, Magnesium 2.2 10/06/23 04:44: POC Glucose 289 H 10/06/23 08:30: POC Glucose 284 H 10/06/23 11:35: POC Glucose 404 H Micro: Microbiology 10/04/23 14:20 Blood Culture (Wb) - Left Hand Blood Culture - Final Staphylococcus aureus 10/04/23 14:30 Blood Culture (Wb) - Right Wrist Bacteria Detection (PCR) - Final Meth. resistant Staph. aureus 10/04/23 14:30 Blood Culture (Wb) - Right Wrist Blood Culture - Final Meth. resistant Staph. aureus 10/04/23 10:37 Mucosa - Nose Respiratory Panel (PCR) - Final 10/04/23 10:18 Mucosa - Nose SARS-CoV-2, Influenza & RSV (PCR) - Final Radiography Diagnostic Testing: Radiology Impression Echocardiogram 10/04/23 16:11 Interpretation Summary Mild concentric left ventricular hypertrophy. Severe anterior hypokinesis. Estimated ejection fraction 40%. At least grade 2 diastolic dysfunction. Mild-Moderate (1-2+) mitral valve insufficiency. Moderately severe (3+) tricuspid valve insufficiency. Right ventricular systolic pressure estimated to be 66 mmHg. Mild (1+) aortic valve insufficiency. Mild (1+) pulmonic valve insufficiency. Aortic root atherosclerotic and calcified. Ordering Physician: Gurdeep De Luna Referring Physician: Howard Escobar Performed By: Nila Lujan RDCS Rhythm Strip Rhythm Strip: A-fib Rate: 74 Physical Exam Narrative General: Alert and oriented x3, NAD. HEENT: Normocephalic, atraumatic. Mucous membrane moist without erythema. PERRLA, EOMI. Hearing is intact. Neck: Supple, no JVD. Trachea is midline. No thyromegaly or lymphadenopathy. TDC site is clean and dry. There is no drainage from exit site. There is no pain with palpation of the tunnel tract. Cardiovascular: Normal S1, S2. No rubs, murmurs, or gallops. Respiratory: Lungs are clear to auscultation bilaterally. No wheezing, rhonchi, or rales. Abdomen: Normal bowel sounds, soft, nontender, no guarding or rebound, no organo megaly. Extremities: No clubbing, cyanosis, or edema. Musculoskeletal: Full passive range of motion, no joint swelling. Psychiatric: Normal mood and affect. Skin: Warm and dry, no rash. Neurologic: Cranial nerve II to XII are grossly intact. No focal neurologic deficits. Assessment & Plan Assessment/Plan (1) ESRD (end stage renal disease): (2) Hyponatremia: (3) Hypotension: PLAN: Plan Impression/Plan: 78-year-old man who is known to our service for ESRD, type 2 diabetes mellitus, hypertension, CAD, HFpEF with diastolic dysfunction, moderate pulmonary hypertension, KIMBERLY, and hyperlipidemia. The patient presents to the hospital with hypotension/circulatory shock which is being investigated. Nephrology is following for ESRD and dialysis management. ESRD. Usual dialysis Thursday, Thursday, Thursday. Hyponatremia. Asymptomatic. Should improve with dialysis Circulatory shock. The patient is being covered with IV hydrocortisone for adrenal insufficiency. Blood cultures positive for MRSA. Dialysis catheter to be removed today. Discussed with ID service. We will give a line holiday over the next couple of days and try to avoid dialysis. Once blood cultures are clear, he may have another catheter placed. Left wrist could be seeded. Ortho consult to be placed.
[2023-10-06 13:22] LABS: International Normalized Ratio 1.8; Prothrombin Time (Protime)PT. 21.3 SECONDS (11.7-14.9)
[2023-10-06] MEDS: Glucerna Shake 120 ML LIQUID PO ×2 (13:22→16:50)
[2023-10-06 14:18] LABS: Bedside Glucose 368 mg/dL (74-106)
[2023-10-06] MEDS: Insulin Lispro 100 UNIT/ML INSULN.PEN 15 UNIT SC (14:42)
[2023-10-06 15:08] LABS: Complement C3 81 mg/dL (82-167); Complement CH50 57 U/mL (>41)
--- NOTE | 2023-10-06 15:30 | NURSING ---
Dr. Campos at bedside, removed right tunnelled dialysis catheter at this time, gauze and medipore tape placed as pressure dressing, this RN held pressure per Dr. Campos for five minutes, site stable, patient tolerated well.
--- NOTE | 2023-10-06 15:43 | PCM.PN.BLA ---
Progress Note I remove the tunneled dialysis catheter at the bedside. INR came down to 1.8. I removed the sutures that were holding in place. It was easily able to be tugged and there were no adhesions to the cuff and it easily slid out. The catheter tip was sent for culture. Pressure dressing was placed over the neck and the exit site. Johnny Campos MD Pager: [facility] [address] [place] [address] [address] [place] [address] Office:
[2023-10-06 16:19] LABS: Bedside Glucose 266 mg/dL (74-106)
[2023-10-06] MEDS: CARBOXYMETHYLCELLULOSE SODIUM 1 DRP DROPS OPHTHALMIC (16:58)
--- NOTE | 2023-10-06 17:18 | CT_ITS ---
We are attempting to reach an attending provider to discuss findings. An addendum with communication details will be sent when the communication is complete. INDICATION: Stroke symptoms EXAMINATION: CT BRAIN - CT Head or Brain W/O Contrast Injection TECHNIQUE: Multiple axial images were obtained of the head without intravenous contrast. A radiation dose optimization technique was used for this scan. IV Contrast dosage and agent: None. COMPARISON: 12/05/2022 FINDINGS: BRAIN PARENCHYMA: No intra- or extra-axial hemorrhage. No evidence of acute infarct. No intracranial mass or mass effect. There is preservation of the sanchez/white matter interface. Posterior fossa structures are unremarkable. Stable volume loss with low attenuation of the periventricular white matter typical of chronic small vessel disease. CSF SPACES: Stable. No hydrocephalus. Basal cisterns are patent. CALVARIUM, SKULL BASE, PARANASAL SINUSES AND MASTOID AIR CELLS: Mucoperiosteal thickening left sphenoid air cell. No discrete lytic or blastic abnormalities. CT/STROKE Brain/Head without Cont IMPRESSION: Volume loss with chronic white matter changes. No acute intracranial findings. Electronically Signed: Constantino Pierre MD at 17:42 EST Reading Location ID and State: [facility] / [place] Tel , Service support ,
--- NOTE | 2023-10-06 17:29 | CT_ITS ---
We are attempting to reach an attending provider to discuss findings. An addendum with communication details will be sent when the communication is complete. STUDY: CTA HEAD AND NECK WITH CONTRAST REASON FOR EXAM: Male, 78 years old. CVA RADIATION DOSAGE (If Supplied By Facility): CTDIvol = ( 47.06 ) mGy, DLP = ( 960.91 ) mGycm TECHNIQUE: CT angiography was performed with a multi-detector CT scanner. Data acquisition was obtained from the skull base through the vertex following intravenous administration of IV 100mL Isovue-370. MIP images were reconstructed from the axial data set. Post-processing of the angiographic images was performed, with multiplanar reformation and 3D reconstruction. Individualized dose optimization techniques were used for this CT. COMPARISON: No relevant priors. FINDINGS: Normal bilateral petrous carotid arteries. There is calcified plaque formation of the right cavernous carotid artery, with a mild stenosis (less than 50%). There is calcified plaque formation of the left cavernous carotid artery, with a mild stenosis (less than 50%). Normal right A1 segments of the anterior cerebral artery. Normal left A1 segments of the anterior cerebral artery. Normal intact anterior communicating artery (ACOM). Normal bilateral A2 segments of the anterior cerebral arteries. Normal right M1 and M2 segments of the middle cerebral arteries, with a normal M1 bifurcation. Normal left M1 and M2 segments of the middle cerebral arteries, with a normal M1 bifurcation. Normal right posterior communicating artery (PCOM). Normal left posterior communicating artery (PCOM). Normal bilateral vertebral arteries. Normal basilar artery with a normal basilar bifurcation. The visualized bilateral superior cerebellar (SCA) arteries are normal. Normal bilateral P1, P2 and visualized P3 segments of the posterior cerebral arteries. There is no demonstrated aneurysm of the [place]. There is no demonstrated abnormality of the visualized brain. AORTIC ARCH: There is atherosclerotic calcific plaque formation of the aortic arch and great vessels arising from the aortic arch, without a hemodynamically significant stenosis. There is a bovine origin of the great vessels with a common origin of the brachiocephalic and left common carotid artery. Normal origin of the left subclavian artery. RIGHT CAROTID ARTERIES: Normal right common carotid artery (CCA). There is moderate atherosclerotic plaque formation with mild narrowing of the right carotid bulb. There is moderate atherosclerotic plaque formation of the origin of the right internal carotid artery with less than 50% cross sectional diameter stenosis. Normal visualized cervical portion of the right internal carotid artery. Normal origin of the right external carotid artery (ECA). LEFT CAROTID ARTERIES: Normal left common carotid artery (CCA). There is moderate atherosclerotic plaque formation with moderate narrowing of the carotid bulb. There is moderate atherosclerotic plaque formation of the origin of the left internal carotid artery with an estimated stenosis of 50-69% stenosis. Normal visualized cervical portion of the left internal carotid artery. Normal origin of the left external carotid artery (ECA). VERTEBRAL ARTERIES: There is enhancement within the bilateral vertebral arteries with a small right vertebral artery, and a dominant left vertebral artery. CT/STROKE CTA Head AND Neck W/Con IMPRESSION: No acute abnormality. No large vessel occlusions. Prominent intracranial calcific atherosclerosis and up to 50% stenosis of both cavernous carotid arteries. Bilateral ICA plaque with mild grade stenosis of the right ICA and moderate grade stenosis of the left ICA. Electronically Signed: Darinel Reveles MD at 18:07 EST ,
[2023-10-06 17:32] LABS: Bedside Glucose 204 mg/dL (74-106)
[2023-10-06 23:52] LABS: Bedside Glucose 111 mg/dL (74-106)
[2023-10-07] VITALS (19 sets, daily range): BP systolic 106–153; BP diastolic 49–110; PULSE 54–93; RESP 15–25; TEMP 36.6–37; O2SAT 92–99; BMI 28.4
[2023-10-07 03:53] LABS: Absolute Lymphocyte Count 0.87 X10^3/uL (0.83-4.51); Absolute Neutrophil Count 14.5 X10^3/uL (2.0-7.7); Basophil# 0.13 X10^3/uL; Basophil% 0.7 % (0-1); Hematocrit 28.5 % (40-54); Hemoglobin 9.7 g/dL (13.0-16.5); Lymphocyte # 0.87 X10^3/ul (0.83-4.51); Mean Corpuscular Hgb 28.8 pg (27.0-32.0); Mean Corpuscular Volume 84.6 fL (80-94); Mean Platelet Vol. 12.9 fl (6.2-12.0); Monocyte# 1.02 X10^3/uL; Monocyte% 5.9 % (0-10); NRBC Flagged by Analyzer 0 % (0-5); Neutrophil # 14.52 X10^3/uL (2.7-7.7); Neutrophil % 83.5 % (47-70); POSITIVE COUNT YES; Platelet Count 90 K/mm3 (150-450); RBC Distribution Width CV 14.7 % (11.6-14.6); RBC Distribution Width SD 45.7 fl (35.1-43.9); Red Blood Count 3.37 M/mm3 (4.6-6.2); White Blood Count 17.4 K/mm3 (4.4-11.0)
[2023-10-07 04:05] LABS: International Normalized Ratio 1.1; Prothrombin Time (Protime)PT. 14.2 SECONDS (11.7-14.9)
[2023-10-07 04:20] LABS: Anion Gap 8 (5-15); BUN 59 mg/dL (7-18); BUN/Creat Ratio 24.4 RATIO (10-20); Calcium,Total 9.1 mg/dL (8.5-10.1); Chloride 97 mmol/L (98-107); Creatinine, Serum 2.42 mg/dL (0.70-1.30); EST Glomerular Filtration Rate 28 mL/min (>60); Est Glom Filt Rate - Afr Amer 33 mL/min (>60); Estimated Creatinine Clearance 23.38 ml/min; Glucose 212 mg/dL (74-106); Potassium 3.5 mmol/L (3.5-5.1); Sodium Level 129 mmol/L (136-145)
[2023-10-07 04:22] LABS: Vancomycin, Random Level 17.5 ug/mL (0.0-15.0)
[2023-10-07] MEDS: Vancomycin Trough/Random Due 1 LAB MC (05:18)
--- NOTE | 2023-10-07 05:19 | PCM.RX.CS ---
Consult Antibiotic Management Pharmacy has been consulted to manage selected antibiotic: Vancomycin Type of Intervention Type of Consult: Follow-up Suspected Infection Suspected Infection: Sepsis Labs Labs: Sodium 129 mmol/L (136-145) L 10/07/23 03:40 Potassium 3.5 mmol/L (3.5-5.1) 10/07/23 03:40 Chloride 97 mmol/L (98-107) L 10/07/23 03:40 Carbon Dioxide 24.0 mmol/L (21.0-32.0) 10/07/23 03:40 Anion Gap 8 (5-15) 10/07/23 03:40 BUN 59 mg/dL (7-18) H 10/07/23 03:40 Creatinine 2.42 mg/dL (0.70-1.30) H 10/07/23 03:40 Est GFR (MDRD) Af Amer 33 mL/min (>60) L 10/07/23 03:40 Est GFR (MDRD) Non-Af 28 mL/min (>60) L 10/07/23 03:40 BUN/Creatinine Ratio 24.4 RATIO (10-20) H 10/07/23 03:40 Glucose 212 mg/dL (74-106) H 10/07/23 03:40 Random Vancomycin 17.5 ug/mL (0.0-15.0) H 10/07/23 03:40 Microbiology Microbiology: Microbiology 10/04/23 14:20 Blood Culture (Wb) - Left Hand Blood Culture - Final Staphylococcus aureus 10/04/23 14:30 Blood Culture (Wb) - Right Wrist Bacteria Detection (PCR) - Final Meth. resistant Staph. aureus 10/04/23 14:30 Blood Culture (Wb) - Right Wrist Blood Culture - Final Meth. resistant Staph. aureus 10/04/23 10:37 Mucosa - Nose Respiratory Panel (PCR) - Final 10/04/23 10:18 Mucosa - Nose SARS-CoV-2, Influenza & RSV (PCR) - Final Dosing Weight Weight used for dosin.5 kg Estimated Creatinine Clearance Estimated Creatinine Clearance: 23 Goal Trough Goal Trough: 15-20 mcg/mL Pharmacy Plan for Drug Dosing Pharmacy Plan for Drug Dosing: Random vancomycin level was 17.5. This was drawn roughly 38 hours post-dose. A 500mg vanco dose will be given AFTER the dialysis scheduled for 10/07/23. Pharmacy will coordinate with nursing for timing. Another random level will be drawn in the a.m. prior to the next dialysis on Thursday. Pharmacy Service will continue to monitor and adjust dosing as required. Follow-Up Labs Follow-Up Labs: Trough: Vancomycin (random) Date/Time Labs Ordered Labs to be done on [date and time ordered]: 10/09/23 @0600 random
--- NOTE | 2023-10-07 06:45 | PCM.PN.INT ---
Assessment & Plan Assessment/Plan (1) Septic shock: PLAN: Plan RECOMMENDATIONS: 1. Continue antibiotics per ID recommendations. 2. Restart Coumadin and monitor INR daily. 3. Reinsertion of HD line per nephrology and ID. 4. Stop stress dose steroids. 5. Dialysis support per nephrology recommendations. 6. Nocturnal PAP therapy per home regimen. 7. Will sign off from a critical care perspective. Please call with any questions. IMPRESSIONS: 1. Septic shock The patient initially presented to the hospital with generalized weakness but went on to develop fluid refractory hypotension requiring vasopressor support, in the setting of MRSA bacteremia, most likely secondary to infected HD catheter. The patient has been weaned from vasopressor support. He remains on antibiotics per ID recommendations. His HD catheter has been successfully removed. At this time, given his hemodynamic stability, we will plan to discontinue stress dose steroids. 2. History of heart failure with preserved ejection fraction/pulmonary hypertension I do suspect that his pulmonary hypertension is likely multifactorial with underlying cardiac implications and potentially related to his underlying autoimmune condition. The patient was being managed on a prednisone taper following his last hospitalization, with concern for potential adrenal insufficiency as a consequence. 3. Positive autoimmune workup Unclear autoimmune diagnosis, as the patient is followed by Dr. Conner on an outpatient basis. The patient was amidst a prednisone taper on an outpatient basis. While underlying adrenal insufficiency is certainly a possibility, the patient is also bacteremic. Therefore, he will be continued on stress dose steroids for now. 4. History of obstructive sleep apnea/atrial fibrillation/diabetes mellitus/hypertension/BPH Complicates care, management, recovery and prognosis. Continue supportive care and home medications as indicated. Continue nocturnal PAP therapy per home regimen. This note was generated with t-Art dictation software. It may contain incorrect words, spelling, and punctuation that were not noted in checking the note before signing. Subjective Subjective The patient was seen and examined at the bedside this morning. Events from the last 24 hours have been reviewed. The patient is currently afebrile, hemodynamically stable and maintaining appropriate oxygen saturations on room air. The patient's HD line was successfully removed yesterday. Last evening, the patient apparently developed transient vision loss in the left eye. A stroke alert was called and a CT was obtained, which demonstrated ICA stenosis. Objective Data Objective Data The patient's most recent lab work, culture data and imaging studies have all been personally reviewed. Preliminary blood culture dated October 04 was positive for MRSA. Repeat blood cultures dated October 05 are demonstrating growth of Staph aureus as well. Vital Signs: Vital Signs Temp Pulse Resp BP Pulse Ox O2 Del Method O2 Flow Rate 98.6 F 75 18 128/74 H 96 Room Air 2 10/07/23 04:00 10/07/23 06:00 10/07/23 06:00 10/07/23 06:00 10/07/23 06:00 10/07/23 06:00 10/04/23 19:00 FiO2 30 10/05/23 20:00 Oxygen Flow Rate (L/min) 2 Oxygen Delivery Method Room Air Weight: 170 lb 13.732 oz Body Mass Index (BMI) 28.4 Intake & Output: Intake and Output for Last 24 Hours 10/05/23 10/06/23 10/07/23 23:59 23:59 23:59 Intake Total 999.0 / 999.0 721 / 721 Output Total 1600 / 1600 Balance -601.0 / -601.0 721 / 721 Medical Nutrition Assessment Dietitian: Malnutrition Criteria Met Start: 10/05/23 06:56 Freq: Status: Active Protocol: Document 10/05/23 06:56 SLA (Rec: 10/05/23 06:56 SLA Desktop) Nutrition Malnutrition Evidence of Malnutrition Exists Yes Malnutrition (severe): Acute Illness/Injury Evidenced By Suboptimal Energy Intake ( Severe),Weight Loss (Severe) Intake Problem Inadequate Oral Intake Status Inactive Problem Clinical Problem Acute Disease or Injury Related Malnutrition Etiology related to acute illness and recent initiation of HD Signs/Symptoms as evidenced by <50% of est nutritional needs x 2 wks and 11.6% wt loss x 6 wks Status Active Problem Altered Nutrient-Related Laboratory Values Etiology related to diabetes and renal dysfunction Signs/Symptoms as evidenced by gluc 193, BUN 39, Cr 2.96 Status Active Problem Recommendation Dietitian Recommendations/Changes Will change diet to Renal general w/ Consistent CHO Will order 4 oz glucerna shake 4x/day w/ medpass for increased nutrition if consumed. Lab / Micro Data Attestation: I reviewed the patient's lab results. 10/07/23 03:40 10/07/23 03:40 Labs: Laboratory Results - last 24 hr 10/04/23 17:10: Complement C3 81 L, Complement C4 18, Tot Complement (CH50) 57 10/06/23 08:30: POC Glucose 284 H 10/06/23 11:35: POC Glucose 404 H 10/06/23 13:00: PT 21.3 H, INR 1.8 10/06/23 14:00: POC Glucose 368 H 10/06/23 16:01: POC Glucose 266 H 10/06/23 17:15: POC Glucose 204 H 10/06/23 20:38: POC Glucose 111 H 10/07/23 03:40: WBC 17.4 H, RBC 3.37 L, Hgb 9.7 L, Hct 28.5 L, MCV 84.6, MCH 28.8, MCHC 34.0, RDW Std Deviation 45.7 H, RDW Coeff of [place] 14.7 H, Plt Count 90 L, MPV 12.9 H, Immature Gran % (Auto) 4.900 H, Neut % (Auto) 83.5 H, Lymph % (Auto) 5.0 L, [place] % (Auto) 5.9, Eos % (Auto) 0.0, Baso % (Auto) 0.7, Absolute Neuts (auto) 14.5 H, Absolute Lymphs (auto) 0.87, Nucleated RBC % 0, PT 14.2, INR 1.1, Sodium 129 L, Potassium 3.5, Chloride 97 L, Carbon Dioxide 24.0, Anion Gap 8, BUN 59 H, Creatinine 2.42 H, Estim Creat Clear Calc 23.38, Est GFR (MDRD) Af Amer 33 L, Est GFR (MDRD) Non-Af 28 L, BUN/Creatinine Ratio 24.4 H, Glucose 212 H, Calcium 9.1, Random Vancomycin 17.5 H Micro: Microbiology 10/04/23 14:20 Blood Culture (Wb) - Left Hand Blood Culture - Final Staphylococcus aureus 10/04/23 14:30 Blood Culture (Wb) - Right Wrist Bacteria Detection (PCR) - Final Meth. resistant Staph. aureus 10/04/23 14:30 Blood Culture (Wb) - Right Wrist Blood Culture - Final Meth. resistant Staph. aureus 10/04/23 10:37 Mucosa - Nose Respiratory Panel (PCR) - Final 10/04/23 10:18 Mucosa - Nose SARS-CoV-2, Influenza & RSV (PCR) - Final ABG Data ABG results: ABG 10/04/23 17:07 Specimen Type ART Sample Site L Brach pH 7.53 H Bicarbonate Actual 24.6 Total CO2 26 Base Excess 2 O2 Saturation 99 O2 % 4.0 ABG pCO2 29.3 L ABG pO2 116 H Rajendra Test Positive O2 Delivery Device Cannula Vent Mode Not entered Radiography Diagnostic Testing: Radiology Impression Wrist X-Ray 10/06/23 10:42 IMPRESSION: 1. Increasing soft tissue swelling posterior to the wrist. Otherwise stable. 2. No rapidly progressive joint space narrowing or periarticular lytic lesion is seen to indicate septic arthritis at this time. Electronically Signed: Rod Ponce MD at 2:55 EST , ADDENDUM: 10/07/23 0322 IMPRESSION: undefined Brain CT 10/06/23 17:18 IMPRESSION: Volume loss with chronic white matter changes. No acute intracranial findings. Electronically Signed: Constantino Pierre MD at 17:42 EST , ADDENDUM: 10/06/23 1809 IMPRESSION: Volume loss with chronic white matter changes. No acute intracranial findings. N.B. : Elia Ewing DO, confirmed on 10/06/2023 18:02:44 (ET) that the referring physician received the results and does not require a verbal communication. Electronically Signed: Constantino Pierre MD at 17:42 EST , Head/Neck CTA 10/06/23 17:29 IMPRESSION: No acute abnormality. No large vessel occlusions. Prominent intracranial calcific atherosclerosis and up to 50% stenosis of both cavernous carotid arteries. Bilateral ICA plaque with mild grade stenosis of the right ICA and moderate grade stenosis of the left ICA. Electronically Signed: Darinel Reveles MD at 18:07 EST , ADDENDUM: 10/06/23 1823 IMPRESSION: No acute abnormality. No large vessel occlusions. Prominent intracranial calcific atherosclerosis and up to 50% stenosis of both cavernous carotid arteries. Bilateral ICA plaque with mild grade stenosis of the right ICA and moderate grade stenosis of the left ICA. N.B. : The above Results were Read Back by Darinel Reveles MD to Elia Ewing DO, and understanding confirmed on 10/06/2023 18:17:03 (ET). Electronically Signed: Darinel Reveles MD at 18:07 EST , Rhythm Strip Rhythm Strip: A-fib Rate: 74 Physical Exam Const alert and no apparent distress General Appearance: cooperative HEENT normocephalic, head/scalp atraumatic and moist oral mucous membranes Eyes PERRL, EOMs intact bilaterally and conjunctivae normal Neck supple General: trachea midline Chest inspection of chest normal Chest Narrative: Stable HD line. Resp normal respiratory effort Auscultation: Negative for rales, rhonchi or wheezes Cardio S1 normal heart sound and S2 normal heart sound Rhythm: abnormal rhythm Heart Sounds: murmur GI normal to inspection, nondistended, normoactive bowel sounds Extremity no clubbing, cyanosis or edema Skin no rashes or lesions noted Neuro CN's II-XII intact bilaterally, moves all extremities and no focal motor deficits Psych cooperative and affect normal Charges/Coding Visit Charges Inpatient E&M: 24289 Subs Hosp L2
--- NOTE | 2023-10-07 07:09 | PN.HOSP_ITS ---
Reason for Visit Reason for Visit: Diagnoses Sepsis, unspecified organism (10/04/23) Methicillin resistant Staphylococcus aureus infection as the cause of diseases classified elsewhere (10/04/23) Addisonian crisis (10/04/23) Hypo-osmolality and hyponatremia (10/04/23) Nonrheumatic mitral (valve) insufficiency (10/04/23) Other hypertrophic cardiomyopathy (10/04/23) Left bundle-branch block, unspecified (10/04/23) Other persistent atrial fibrillation (10/04/23) Chronic combined systolic (congestive) and diastolic (congestive) heart failure (10/04/23) Hypotension, unspecified (10/04/23) End stage renal disease (10/04/23) Rash and other nonspecific skin eruption (10/04/23) Other malaise (10/04/23) Severe sepsis with septic shock (10/04/23) Bacteremia (10/04/23) Other specified abnormal findings of blood chemistry (10/04/23) 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 Stroke alert was called patient was however deemed not a candidate for thrombolytics.No large vessel occlusions. Prominent intracranial calcific atherosclerosis and up to 50% stenosis of both cavernous carotid arteries. Bilateral ICA plaque with mild grade stenosis of the right ICA and moderate grade stenosis of the left ICA.. Objective Data Objective Data Vital Signs: Vital Signs Temp Pulse Resp BP Pulse Ox O2 Del Method O2 Flow Rate 98.6 F 75 18 128/74 H 96 Room Air 2 10/07/23 04:00 10/07/23 06:00 10/07/23 06:00 10/07/23 06:00 10/07/23 06:00 10/07/23 06:00 10/04/23 19:00 FiO2 30 10/05/23 20:00 Oxygen Flow Rate (L/min) 2 Oxygen Delivery Method Room Air Weight: 77.5 kg Body Mass Index (BMI) 28.4 Intake & Output: Intake and Output for Last 24 Hours 10/05/23 10/06/23 10/07/23 23:59 23:59 23:59 Intake Total 999.0 / 999.0 721 / 721 Output Total 1600 / 1600 Balance -601.0 / -601.0 721 / 721 Medical Nutrition Assessment Dietitian: Malnutrition Criteria Met Start: 10/05/23 06:56 Freq: Status: Active Protocol: Document 10/05/23 06:56 SLA (Rec: 10/05/23 06:56 SLA Desktop) Nutrition Malnutrition Evidence of Malnutrition Exists Yes Malnutrition (severe): Acute Illness/Injury Evidenced By Suboptimal Energy Intake ( Severe),Weight Loss (Severe) Intake Problem Inadequate Oral Intake Status Inactive Problem Clinical Problem Acute Disease or Injury Related Malnutrition Etiology related to acute illness and recent initiation of HD Signs/Symptoms as evidenced by <50% of est nutritional needs x 2 wks and 11.6% wt loss x 6 wks Status Active Problem Altered Nutrient-Related Laboratory Values Etiology related to diabetes and renal dysfunction Signs/Symptoms as evidenced by gluc 193, BUN 39, Cr 2.96 Status Active Problem Recommendation Dietitian Recommendations/Changes Will change diet to Renal general w/ Consistent CHO Will order 4 oz glucerna shake 4x/day w/ medpass for increased nutrition if consumed. Lab / Micro Data 10/07/23 03:40 10/07/23 03:40 Labs: Laboratory Results - last 24 hr 10/04/23 17:10: Complement C3 81 L, Complement C4 18, Tot Complement (CH50) 57 10/06/23 08:30: POC Glucose 284 H 10/06/23 11:35: POC Glucose 404 H 10/06/23 13:00: PT 21.3 H, INR 1.8 10/06/23 14:00: POC Glucose 368 H 10/06/23 16:01: POC Glucose 266 H 10/06/23 17:15: POC Glucose 204 H 10/06/23 20:38: POC Glucose 111 H 10/07/23 03:40: WBC 17.4 H, RBC 3.37 L, Hgb 9.7 L, Hct 28.5 L, MCV 84.6, MCH 28.8, MCHC 34.0, RDW Std Deviation 45.7 H, RDW Coeff of Kiersten 14.7 H, Plt Count 90 L, MPV 12.9 H, Immature Gran % (Auto) 4.900 H, Neut % (Auto) 83.5 H, Lymph % (Auto) 5.0 L, [place] % (Auto) 5.9, Eos % (Auto) 0.0, Baso % (Auto) 0.7, Absolute Neuts (auto) 14.5 H, Absolute Lymphs (auto) 0.87, Nucleated RBC % 0, PT 14.2, INR 1.1, Sodium 129 L, Potassium 3.5, Chloride 97 L, Carbon Dioxide 24.0, Anion Gap 8, BUN 59 H, Creatinine 2.42 H, Estim Creat Clear Calc 23.38, Est GFR (MDRD) Af Amer 33 L, Est GFR (MDRD) Non-Af 28 L, BUN/Creatinine Ratio 24.4 H, Glucose 212 H, Calcium 9.1, Random Vancomycin 17.5 H Micro: Microbiology 10/04/23 14:20 Blood Culture (Wb) - Left Hand Blood Culture - Final Staphylococcus aureus 10/04/23 14:30 Blood Culture (Wb) - Right Wrist Bacteria Detection (PCR) - Final Meth. resistant Staph. aureus 10/04/23 14:30 Blood Culture (Wb) - Right Wrist Blood Culture - Final Meth. resistant Staph. aureus 10/04/23 10:37 Mucosa - Nose Respiratory Panel (PCR) - Final 10/04/23 10:18 Mucosa - Nose SARS-CoV-2, Influenza & RSV (PCR) - Final Radiography Diagnostic Testing: Radiology Impression Wrist X-Ray 10/06/23 10:42 IMPRESSION: 1. Increasing soft tissue swelling posterior to the wrist. Otherwise stable. 2. No rapidly progressive joint space narrowing or periarticular lytic lesion is seen to indicate septic arthritis at this time. Electronically Signed: Rod Ponce MD at 2:55 EST , ADDENDUM: 10/07/23 0322 IMPRESSION: undefined Brain CT 10/06/23 17:18 IMPRESSION: Volume loss with chronic white matter changes. No acute intracranial findings. Electronically Signed: Constantino Pierre MD at 17:42 EST , ADDENDUM: 10/06/23 1809 IMPRESSION: Volume loss with chronic white matter changes. No acute intracranial findings. N.B. : Elia Ewing DO, confirmed on 10/06/2023 18:02:44 (ET) that the referring physician received the results and does not require a verbal communication. Electronically Signed: Constantino Pierre MD at 17:42 EST , Head/Neck CTA 10/06/23 17:29 IMPRESSION: No acute abnormality. No large vessel occlusions. Prominent intracranial calcific atherosclerosis and up to 50% stenosis of both cavernous carotid arteries. Bilateral ICA plaque with mild grade stenosis of the right ICA and moderate grade stenosis of the left ICA. Electronically Signed: Darinel Reveles MD at 18:07 EST , ADDENDUM: 10/06/23 1823 IMPRESSION: No acute abnormality. No large vessel occlusions. Prominent intracranial calcific atherosclerosis and up to 50% stenosis of both cavernous carotid arteries. Bilateral ICA plaque with mild grade stenosis of the right ICA and moderate grade stenosis of the left ICA. N.B. : The above Results were Read Back by Darinel Reveles MD to Elia Ewing DO, and understanding confirmed on 10/06/2023 18:17:03 (ET). Electronically Signed: Darinel Reveles MD at 18:07 EST , Rhythm Strip Rhythm Strip: A-fib Rate: 74 Physical Exam Narrative GENERAL: cooperative HEENT: Atraumatic; normocephalic EYES; Anicteric, Normal Conjunctiva NECK; supple, normal thyroid, RESPIRATORY: Diminished to auscultation CARDIOVASCULAR: Irregular S1-S2 GI: soft, normoactive bowel sounds, : No Renal angle tenderness; EXTREMITIES: No edema, no clubbing, MUSCULOSKELETAL: no muscle wasting NEURO: Awake; no lateralizing signs. SKIN: No Rash PSYCH; Flat affect Assessment & Plan Assessment/Plan (1) Septic shock: PLAN: Plan Patient is an 78-year-old gentleman admitted with progressive generalized weakness with chills. Patient was found to have significant hypotension a dmitted to the intensive care unit for subsequent management. Infectious workup has so far remained negative to date. 1. Septic shock secondary to MRSA bacteremia ? Suspected to be secondary to combination of septic shock of undetermined etiology as well as possible adrenal crisis. Patient admitted to the intensive care unit managed with IV fluids stress dose of steroid as well as broad-spec trum antibiotic therapy after cultures have been obtained. ? 10/06/2023 patient cultures came back positive for MRSA, Case subsequently discussed with ID plan is for patient tunneled dialysis catheter to be removed. Patient Levophed has been weaned off. 2. Elevated troponin ? Patient troponins continue to rise. Myocardial injury versus acute coronary syndrome. 2D echo ordered consult placed to cardiology 3. Essential hypertension ? Patient antihypertensives held on admission 4. Chronic congestive heart failure ? Currently euvolemic echo from 03/05/2023 demonstrated EF of 53% 5. End-stage renal disease ? Patient is on hemodialysis, consult placed to nephrology for dialysis orders ? 10/06/2023 given patient MRSA bacteremia plan is for patient tunneled dialysis catheter to be removed 6. Paroxysmal A-fib ? Rate controlled on systemic anticoagulation with warfarin with elevated INR currently being held ? 10/06/2023; patient to receive vitamin K to correct his coagulopathy prior to removal of the tunneled dialysis catheter 7. 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 Status post cardioMEMs device placement ? In February 2021 9. Diabetes mellitus type II -patient's oral hypoglycemics held. Placed on long acting insulin, Accu-Cheks a.c. and at bedtime and covered with sliding scale insulin 10. BPH with lower urinary obstructive symptoms - Patient treated with finasteride 11. DVT prophylaxis ? Patient is on Coumadin 12. Acute decreased vision in the left eye ? Suspicious for CRAO/BRAO; Stroke alert was called patient was however deemed not a candidate for thrombolytics.No large vessel occlusions. Prominent intracranial calcific atherosclerosis and up to 50% stenosis of both cavernous carotid arteries. Bilateral ICA plaque with mild grade stenosis of the right ICA and moderate grade stenosis of the left ICA.. Consult placed to ophthalmology Time spent in the patient's overall evaluation,decision-making process, review of diagnostic data, adjustment of management, discussion with other providers, nursing nursing and ancillary staff involved in patient's care documentation, 50 Minutes CODE STATUS; DNR Comfort Care arrest no intubation. Charges/Coding Visit Charges Inpatient E&M: 28453 [facility] Hosp L3
[2023-10-07] MEDS: Insulin Lispro 100 UNIT/ML INSULN.PEN SC ×3 (07:39→17:40)
[2023-10-07] MEDS: Allopurinol 100 MG Tablet 200 MG PO (07:41)
[2023-10-07] MEDS: Pantoprazole Sodium 40 MG Tablet PO (07:41)
[2023-10-07] MEDS: Empagliflozin 25 MG Tablet PO (07:41)
[2023-10-07] MEDS: Finasteride 5 MG Tablet PO (07:41)
[2023-10-07] MEDS: Hydrocortisone Sod Succinate 100 MG/2 ML Vial 50 MG IV (07:42)
--- NOTE | 2023-10-07 08:03 | PCM.PN.CARD ---
Subjective Subjective The patient is resting comfortably in bed. He had an episode of neurologic event/ophthalmologic event last evening. He temporarily lost vision in both eyes and then recovered his right eye but continues to complain of significant floaters in the left eye and inability to focus. A CT scan was done as part of stroke team evaluation which was negative. The patient's Coumadin has been interrupted so that his dialysis catheter could be removed. The patient's blood pressure is drifting up. He does have a history of LV dysfunction ejection fraction in the 45% range. He appears to be euvolemic at this point in time. Objective Data Vital Signs: Vital Signs Temp Pulse Resp BP Pulse Ox O2 Del Method O2 Flow Rate 98.6 F 57 L 16 143/63 H 96 Room Air 2 10/07/23 04:00 10/07/23 07:00 10/07/23 07:00 10/07/23 07:00 10/07/23 07:00 10/07/23 07:00 10/04/23 19:00 FiO2 30 10/05/23 20:00 Oxygen Flow Rate (L/min) 2 Oxygen Delivery Method Room Air Weight: 170 lb 13.732 oz Body Mass Index (BMI) 28.4 Intake & Output: Intake and Output for Last 24 Hours 10/05/23 10/06/23 10/07/23 23:59 23:59 23:59 Intake Total 999.0 / 999.0 721 / 721 Output Total 1600 / 1600 Balance -601.0 / -601.0 721 / 721 Lab / Micro Data Attestation: I reviewed the patient's lab results. 10/07/23 03:40 10/07/23 03:40 Labs: Laboratory Results - last 24 hr 10/04/23 17:10: Complement C3 81 L, Complement C4 18, Tot Complement (CH50) 57 10/06/23 08:30: POC Glucose 284 H 10/06/23 11:35: POC Glucose 404 H 10/06/23 13:00: PT 21.3 H, INR 1.8 10/06/23 14:00: POC Glucose 368 H 10/06/23 16:01: POC Glucose 266 H 10/06/23 17:15: POC Glucose 204 H 10/06/23 20:38: POC Glucose 111 H 10/07/23 03:40: WBC 17.4 H, RBC 3.37 L, Hgb 9.7 L, Hct 28.5 L, MCV 84.6, MCH 28.8, MCHC 34.0, RDW Std Deviation 45.7 H, RDW Coeff of Kiersten 14.7 H, Plt Count 90 L, MPV 12.9 H, Immature Gran % (Auto) 4.900 H, Neut % (Auto) 83.5 H, Lymph % (Auto) 5.0 L, [place] % (Auto) 5.9, Eos % (Auto) 0.0, Baso % (Auto) 0.7, Absolute Neuts (auto) 14.5 H, Absolute Lymphs (auto) 0.87, Nucleated RBC % 0, PT 14.2, INR 1.1, Sodium 129 L, Potassium 3.5, Chloride 97 L, Carbon Dioxide 24.0, Anion Gap 8, BUN 59 H, Creatinine 2.42 H, Estim Creat Clear Calc 23.38, Est GFR (MDRD) Af Amer 33 L, Est GFR (MDRD) Non-Af 28 L, BUN/Creatinine Ratio 24.4 H, Glucose 212 H, Calcium 9.1, Random Vancomycin 17.5 H Micro: Microbiology 10/04/23 14:20 Blood Culture (Wb) - Left Hand Blood Culture - Final Staphylococcus aureus 10/04/23 14:30 Blood Culture (Wb) - Right Wrist Bacteria Detection (PCR) - Final Meth. resistant Staph. aureus 10/04/23 14:30 Blood Culture (Wb) - Right Wrist Blood Culture - Final Meth. resistant Staph. aureus Rhythm Strip Rhythm Strip: A-fib Rate: 74 Cardiology Labs/Tests 10/06/23 13:00: PT 21.3 H, INR 1.8 10/07/23 03:40: WBC 17.4 H, RBC 3.37 L, Hgb 9.7 L, Hct 28.5 L, MCV 84.6, MCH 28.8, MCHC 34.0, Plt Count 90 L, MPV 12.9 H, Immature Gran % (Auto) 4.900 H, Neut % (Auto) 83.5 H, Lymph % (Auto) 5.0 L, [place] % (Auto) 5.9, Eos % (Auto) 0.0, Baso % (Auto) 0.7, Absolute Neuts (auto) 14.5 H, Nucleated RBC % 0, PT 14.2, INR 1.1, Sodium 129 L, Potassium 3.5, Chloride 97 L, Carbon Dioxide 24.0, Anion Gap 8, BUN 59 H, Creatinine 2.42 H, Est GFR (MDRD) Af Amer 33 L, Est GFR (MDRD) Non-Af 28 L, BUN/Creatinine Ratio 24.4 H, Glucose 212 H, Calcium 9.1 Rhythm: EKG: ECHO: Stress Test: Cardiac Cath: PCI: CT Surgery: Holter monitor: EPS: PPM: CXR: Chest CT Scan: Radiography Diagnostic Testing: Radiology Impression Wrist X-Ray 10/06/23 10:42 IMPRESSION: 1. Increasing soft tissue swelling posterior to the wrist. Otherwise stable. 2. No rapidly progressive joint space narrowing or periarticular lytic lesion is seen to indicate septic arthritis at this time. Electronically Signed: Rod Ponce MD at 2:55 EST , ADDENDUM: 10/07/23 0322 IMPRESSION: undefined Brain CT 10/06/23 17:18 IMPRESSION: Volume loss with chronic white matter changes. No acute intracranial findings. Electronically Signed: Constantino Pierre MD at 17:42 EST , ADDENDUM: 10/06/23 1809 IMPRESSION: Volume loss with chronic white matter changes. No acute intracranial findings. N.B. : Elia Ewing DO, confirmed on 10/06/2023 18:02:44 (ET) that the referring physician received the results and does not require a verbal communication. Electronically Signed: Constantino Pierre MD at 17:42 EST , Head/Neck CTA 10/06/23 17:29 IMPRESSION: No acute abnormality. No large vessel occlusions. Prominent intracranial calcific atherosclerosis and up to 50% stenosis of both cavernous carotid arteries. Bilateral ICA plaque with mild grade stenosis of the right ICA and moderate grade stenosis of the left ICA. Electronically Signed: Darinel Reveles MD at 18:07 EST , ADDENDUM: 10/06/23 1823 IMPRESSION: No acute abnormality. No large vessel occlusions. Prominent intracranial calcific atherosclerosis and up to 50% stenosis of both cavernous carotid arteries. Bilateral ICA plaque with mild grade stenosis of the right ICA and moderate grade stenosis of the left ICA. N.B. : The above Results were Read Back by Darinel Reveles MD to Elia Ewing DO, and understanding confirmed on 10/06/2023 18:17:03 (ET). Electronically Signed: Darinel Reveles MD at 18:07 EST , Physical Exam Narrative Patient resting comfortably in recumbent position in bed. Const oriented x3 HEENT normocephalic Eyes EOMs intact bilaterally Eyes Narrative: Patient reports floaters in the left eye Neck no JVD Chest inspection of chest normal Chest Narrative: Patient has a barrel chest. Resp normal respiratory effort Auscultation: crackles bilateral base Cardio regular rate Rhythm: abnormal rhythm irregularly irregular Heart Sounds: murmur systolic II/ soft left sternal border; Negative for click, gallop or rub GI soft to palpation Extremity General Extremity: edema bilateral lower extremity Details: trace Skin General Skin Exam: ecchymosis Psych mental status grossly normal Assessment & Plan Assessment/Plan (1) Cardiomyopathy: QUALIFIERS: Cardiomyopathy type: non-obstructive hypertrophic Qualified Code(s): I42.2 - Other hypertrophic cardiomyopathy PLAN: The patient's blood pressure is drifting up. He appears to be recovering from his septic event. When appropriate the midodrine should be discontinued. And his blood pressure tolerates losartan 50 mg daily should be reinstituted. This should be cleared within nephrology to group prior to instituting ARB therapy. The carvedilol 6.25 mg should be reinstituted prior to discharge if possible as long as the blood pressure and heart rate will tolerate it. The patient should be continued on his home medications otherwise as tolerated. (2) Longstanding persistent atrial fibrillation: PLAN: The patient's Coumadin should be reinstituted and titrated to an INR of 2?3. His heart rate appears to be adequately controlled at the current time. Earlier in the hospitalization he had some transient bradycardia. That seems to have resolved. Prior to discharge and once his blood pressure tolerates it the carvedilol 6.25 mg twice daily should be reinstituted. PLAN: Plan 1. Cardiology will sign off at this time. If further assistance is needed please call 2. Please see above for recommendations. 3. The patient should follow-up with his electrician bus within 2 weeks after discharge. Charges/Coding Visit Charges Inpatient E&M: 40489 [facility] Hosp L2
[2023-10-07 08:07] LABS: Bedside Glucose 186 mg/dL (74-106)
[2023-10-07] MEDS: Enoxaparin 80 MG/0.8 ML Syringe SC (10:56)
[2023-10-07] MEDS: Insulin Glargine-YFGN 100 UNIT/ML Pen 20 UNIT SC (10:56)
--- NOTE | 2023-10-07 11:24 | PCM.PN.REN ---
Subjective Subjective Events noted. Stroke code was called yesterday due to sudden loss of vision. He says it is better today. Blood pressure is higher than yesterday. Weight is noted to be increasing. He says he is making urine. Breathing is acceptable. Objective Data Objective Data Vital Signs: Vital Signs Temp Pulse Resp BP Pulse Ox O2 Del Method O2 Flow Rate 98.2 F 72 16 110/63 94 Room Air 2 10/07/23 08:00 10/07/23 11:00 10/07/23 11:00 10/07/23 11:00 10/07/23 11:00 10/07/23 11:00 10/04/23 19:00 FiO2 30 10/05/23 20:00 Oxygen Flow Rate (L/min) 2 Oxygen Delivery Method Room Air Weight: 77.5 kg Body Mass Index (BMI) 28.4 Intake & Output: Intake and Output for Last 24 Hours 10/05/23 10/06/23 10/07/23 23:59 23:59 23:59 Intake Total 999.0 / 999.0 721 / 721 Output Total 1600 / 1600 Balance -601.0 / -601.0 721 / 721 Medical Nutrition Assessment Dietitian: Malnutrition Criteria Met Start: 10/05/23 06:56 Freq: Status: Active Protocol: Document 10/05/23 06:56 KALLI (Rec: 10/05/23 06:56 KALLI Desktop) Nutrition Malnutrition Evidence of Malnutrition Exists Yes Malnutrition (severe): Acute Illness/Injury Evidenced By Suboptimal Energy Intake ( Severe),Weight Loss (Severe) Intake Problem Inadequate Oral Intake Status Inactive Problem Clinical Problem Acute Disease or Injury Related Malnutrition Etiology related to acute illness and recent initiation of HD Signs/Symptoms as evidenced by <50% of est nutritional needs x 2 wks and 11.6% wt loss x 6 wks Status Active Problem Altered Nutrient-Related Laboratory Values Etiology related to diabetes and renal dysfunction Signs/Symptoms as evidenced by gluc 193, BUN 39, Cr 2.96 Status Active Problem Recommendation Dietitian Recommendations/Changes Will change diet to Renal general w/ Consistent CHO Will order 4 oz glucerna shake 4x/day w/ medpass for increased nutrition if consumed. Lab / Micro Data 10/07/23 03:40 10/07/23 03:40 Labs: Laboratory Results - last 24 hr 10/04/23 17:10: Complement C3 81 L, Complement C4 18, Tot Complement (CH50) 57 10/06/23 11:35: POC Glucose 404 H 10/06/23 13:00: PT 21.3 H, INR 1.8 10/06/23 14:00: POC Glucose 368 H 10/06/23 16:01: POC Glucose 266 H 10/06/23 17:15: POC Glucose 204 H 10/06/23 20:38: POC Glucose 111 H 10/07/23 03:40: WBC 17.4 H, RBC 3.37 L, Hgb 9.7 L, Hct 28.5 L, MCV 84.6, MCH 28.8, MCHC 34.0, RDW Std Deviation 45.7 H, RDW Coeff of Kiersten 14.7 H, Plt Count 90 L, MPV 12.9 H, Immature Gran % (Auto) 4.900 H, Neut % (Auto) 83.5 H, Lymph % (Auto) 5.0 L, [place] % (Auto) 5.9, Eos % (Auto) 0.0, Baso % (Auto) 0.7, Absolute Neuts (auto) 14.5 H, Absolute Lymphs (auto) 0.87, Nucleated RBC % 0, PT 14.2, INR 1.1, Sodium 129 L, Potassium 3.5, Chloride 97 L, Carbon Dioxide 24.0, Anion Gap 8, BUN 59 H, Creatinine 2.42 H, Estim Creat Clear Calc 23.38, Est GFR (MDRD) Af Amer 33 L, Est GFR (MDRD) Non-Af 28 L, BUN/Creatinine Ratio 24.4 H, Glucose 212 H, Calcium 9.1, Random Vancomycin 17.5 H 10/07/23 07:39: POC Glucose 186 H Micro: Microbiology 10/06/23 15:30 Other - Dialysis/Fistula Gram Stain - Final 10/05/23 13:17 Blood Culture (Wb) - Anticubital Right Blood Culture - Preliminary Staphylococcus aureus 10/05/23 11:15 Blood Culture (Wb) - Port Blood Culture - Preliminary Staphylococcus aureus 10/06/23 10:40 Blood Culture (Wb) - Left Forearm Blood Culture - Preliminary 10/04/23 14:20 Blood Culture (Wb) - Left Hand Blood Culture - Final Staphylococcus aureus 10/04/23 14:30 Blood Culture (Wb) - Right Wrist Bacteria Detection (PCR) - Final Meth. resistant Staph. aureus 10/04/23 14:30 Blood Culture (Wb) - Right Wrist Blood Culture - Final Meth. resistant Staph. aureus 10/04/23 10:37 Mucosa - Nose Respiratory Panel (PCR) - Final 10/04/23 10:18 Mucosa - Nose SARS-CoV-2, Influenza & RSV (PCR) - Final Radiography Diagnostic Testing: Radiology Impression Wrist X-Ray 10/06/23 10:42 IMPRESSION: 1. Increasing soft tissue swelling posterior to the wrist. Otherwise stable. 2. No rapidly progressive joint space narrowing or periarticular lytic lesion is seen to indicate septic arthritis at this time. Electronically Signed: Rod Ponce MD at 2:55 EST , ADDENDUM: 10/07/23 0322 IMPRESSION: undefined Brain CT 10/06/23 17:18 IMPRESSION: Volume loss with chronic white matter changes. No acute intracranial findings. Electronically Signed: Constantino Pierre MD at 17:42 EST , ADDENDUM: 10/06/23 1809 IMPRESSION: Volume loss with chronic white matter changes. No acute intracranial findings. N.B. : Elia Ewing DO, confirmed on 10/06/2023 18:02:44 (ET) that the referring physician received the results and does not require a verbal communication. Electronically Signed: Constantino Pierre MD at 17:42 EST , Head/Neck CTA 10/06/23 17:29 IMPRESSION: No acute abnormality. No large vessel occlusions. Prominent intracranial calcific atherosclerosis and up to 50% stenosis of both cavernous carotid arteries. Bilateral ICA plaque with mild grade stenosis of the right ICA and moderate grade stenosis of the left ICA. Electronically Signed: Darinel Reveles MD at 18:07 EST , ADDENDUM: 10/06/23 1823 IMPRESSION: No acute abnormality. No large vessel occlusions. Prominent intracranial calcific atherosclerosis and up to 50% stenosis of both cavernous carotid arteries. Bilateral ICA plaque with mild grade stenosis of the right ICA and moderate grade stenosis of the left ICA. N.B. : The above Results were Read Back by Darinel Reveles MD to Elia Ewing DO, and understanding confirmed on 10/06/2023 18:17:03 (ET). Electronically Signed: Darinel Reveles MD at 18:07 EST , Rhythm Strip Rhythm Strip: A-fib Rate: 74 Physical Exam Narrative General: Alert and oriented x3, NAD. HEENT: Normocephalic, atraumatic. Mucous membrane moist without erythema. PERRLA, EOMI. Hearing is intact. Neck: Supple, no JVD. Trachea is midline. No thyromegaly or lymphadenopathy. TDC site is clean and dry. There is no drainage from exit site. There is no pain with palpation of the tunnel tract. Cardiovascular: Normal S1, S2. No rubs, murmurs, or gallops. Respiratory: Lungs are clear to auscultation bilaterally. No wheezing, rhonchi, or rales. Abdomen: Normal bowel sounds, soft, nontender, no guarding or rebound, no organomegaly. Extremities: No clubbing, cyanosis, or edema. Musculoskeletal: Full passive range of motion, no joint swelling. Psychiatric: Normal mood and affect. Skin: Warm and dry, no rash. Neurologic: Cranial nerve II to XII are grossly intact. No focal neurologic deficits. Assessment & Plan Assessment/Plan (1) ESRD (end stage renal disease): (2) Hyponatremia: (3) Hypotension: PLAN: Plan Impression/Plan: 78-year-old man who is known to our service for ESRD, type 2 diabetes mellitus, hypertension, CAD, HFpEF with diastolic dysfunction, moderate pulmonary hypertension, KIMBERLY, and hyperlipidemia. The patient presents to the hospital with hypotension/circulatory shock which is being investigated. Nephrology is following for ESRD and dialysis management. History of CKD stage IV Recent acute renal failure requiring dialysis Possible ESRD He had known history of CKD stage IV, had repeated admissions with fluid overload/CEE over the last 4 months. To stabilize, we have decided to do a trial of dialysis which she started in August. Breathing has improved. He was off oxygen, able to walk up to 50 yards without any issues. In the meantime he is admitted now with what looks like bacteremia, MRSA related. Could be somewhat unusual to have bacteremia from catheter this soon. Exit site looks okay. He also has left wrist pain which will be evaluated by orthopedics as per my discussion with ID. His dialysis catheter was removed yesterday. Last dialysis was Thursday. He is making urine. I will see if I can keep him off dialysis for now. Creatinine today is acceptable. Potassium is okay. I will add oral Lasix as maintenance to prevent volume overload due to his previous history of congestive heart failure. He is also on SGLT2 inhibitor which can be continued for now. No plans for dialysis unless renal function worsens significantly. Plan discussed with ICU attending Plan discussed with surgery yesterday
[2023-10-07 11:34] LABS: Bedside Glucose 281 mg/dL (74-106)
[2023-10-07] MEDS: Furosemide 80 MG Tablet PO (12:06)
--- NOTE | 2023-10-07 15:43 | PCM.PN.ID ---
Physical Exam Narrative Feeling a little better, wrist still sore, no fever. Stroke alert called last night due to transient vision changes. Const alert and no apparent distress Resp normal air movement and clear to auscultation bilaterally Cardio regular rate and regular rhythm GI soft to palpation, non-tender and non-distended Skin Skin Narrative: L wrist a little less swollen, still very limited ROM due to pain and stiffness ID ID: Route of nutrition/ use of supplements: [] Nutritional Intake: [] IV Site: [] Lanier Catheter: [] Assessment & Plan Assessment/Plan (1) ESRD (end stage renal disease): (2) Septic shock: PLAN: septic shock due to MRSA bacteremia - suspect HD cath as source. TTE showed no veg. Line removed 10/06/23. Will repeat bcx. Cont vanc. Having ongoing L wrist pain and limited ROM, recommend ortho eval. Will follow (3) MRSA bacteremia:
--- NOTE | 2023-10-07 17:18 | PCM.DC.SUM ---
Providers Date of Admission: 10/04/23 Date of Discharge: 10/07/23 Primary Care Physician: Dr. Howard Escobar, Consultations 10/04/23 09:29 Consult: Nephrology Routine Consulting Provider: Raulito Barahona Reason for Consult: dialysis EMERGENT Consult: No Notified: Yes Date Notified: 10/04/23 Time Notified: 09:30 Method of Notification: Answering Service 10/04/23 14:53 Consult: [employer] / Pulmonary Medicine Routine Consulting Provider: Intensivists/Pulmonary Med Reason for Consult: hypotension EMERGENT Consult: No MD Notified: Yes Date Notified: 10/04/23 Time Notified: 14:27 Method of Notification: Answering Service 10/05/23 08:13 Consult: Cardiology Routine Consulting Provider: Ellis Alejo Reason for Consult: elevated troponijn 3. Essential hypertension- EMERGENT Consult: No Notified: Yes Date Notified: 10/05/23 Time Notified: 08:13 Method of Notification: Verbal 10/05/23 10:17 Consult: Infectious Disease Routine Consulting Provider: Sam Almonte Reason for Consult: MRSA Bacteremia EMERGENT Consult: No Notified: Yes Date Notified: 10/05/23 Time Notified: 10:17 Method of Notification: Text 10/05/23 15:53 Consult: General Surgery Routine Consulting Provider: Johnny Campos Reason for Consult: Tunneled dialysis catheter removal EMERGENT Consult: No Notified: Yes Date Notified: 10/05/23 Time Notified: 15:53 Method of Notification: Verbal 10/07/23 09:58 Consult: Ophthamology Routine Consulting Provider: Jaswant Saini Reason for Consult: visual disturbance EMERGENT Consult: No Notified: Yes Date Notified: 10/07/23 Time Notified: 09:58 Method of Notification: Verbal Reason For Visit: WEAKNESS, ELEVATED TROPONIN Diagnosis Discharge Diagnosis (1) ESRD (end stage renal disease): Status: Acute Code(s): N18.6 - End stage renal disease (2) Septic shock: Status: Acute Code(s): A41.9 - Sepsis, unspecified organism; R65.21 - Severe sepsis with septic shock (3) MRSA bacteremia: Status: Acute Code(s): R78.81 - Bacteremia; B95.62 - Methicillin resistant Staphylococcus aureus infection as the cause of diseases classified elsewhere Plan Patient is an 78-year-old gentleman admitted with progressive generalized weakness with chills. Patient was found to have significant hypotension admitted to the intensive care unit for subsequent management. Infectious workup has so far remained negative to date. 1. Septic shock secondary to MRSA bacteremia ? Suspected to be secondary to combination of septic shock of undetermined etiology as well as possible adrenal crisis. Patient admitted to the intensive care unit managed with IV fluids stress dose of steroid as well as broad-spectrum antibiotic therapy after cultures have been obtained. ? 10/06/2023 patient cultures came back positive for MRSA, Case subsequently discussed with ID plan is for patient tunneled dialysis catheter to be removed. Patient Levophed has been weaned off. 2. Elevated troponin ? Patient troponins continue to rise. Myocardial injury versus acute coronary syndrome. 2D echo ordered consult placed to cardiology 3. Essential hypertension ? Patient antihypertensives held on admission 4. Chronic congestive heart failure ? Currently euvolemic echo from 03/05/2023 demonstrated EF of 53% 5. End-stage renal disease ? Patient is on hemodialysis, consult placed to nephrology for dialysis orders ? 10/06/2023 given patient MRSA bacteremia plan is for patient tunneled dialysis catheter to be removed 6. Paroxysmal A-fib ? Rate controlled on systemic anticoagulation with warfarin with elevated INR currently being held ? 10/06/2023; patient to receive vitamin K to correct his coagulopathy prior to removal of the tunneled dialysis catheter 7. 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 Status post cardioMEMs device placement ? In February 2021 9. Diabetes mellitus type II -patient's oral hypoglycemics held. Placed on long acting insulin, Accu-Cheks a.c. and at bedtime and covered with sliding scale insulin 10. BPH with lower urinary obstructive symptoms - Patient treated with finasteride 11. DVT prophylaxis ? Patient is on Coumadin 12. Acute decreased vision in the left eye ? Suspicious for CRAO/BRAO; Stroke alert was called patient was however deemed not a candidate for thrombolytics.No large vessel occlusions. Prominent intracranial calcific atherosclerosis and up to 50% stenosis of both cavernous carotid arteries. Bilateral ICA plaque with mild grade stenosis of the right ICA and moderate grade stenosis of the left ICA.. Consult placed to ophthalmology ? Patient was seen in consultation by Dr. Saini with ophthalmology. After his evaluation his assessment was that patient had left eye endogenous endophthalmitis. He subsequently amended for patient to be transferred to a tertiary care center specifically [facility]. Call was placed patient was accepted for transfer Time spent in the patient's overall evaluation,decision-making process, review of diagnostic data, adjustment of management, discussion with other providers, nursing nursing and ancillary staff involved in patient's care documentation, 50 Minutes CODE STATUS; DNR Comfort Care arrest no intubation. Medications at Discharge Home Medications finasteride 5 mg tablet 5 mg PO DAILY prostate 12/19/20 warfarin 2.5 mg tablet 5 mg PO .COMPLEX blood thinner 03/11/21 cyanocobalamin (vitamin B-12) 1,000 mcg tablet (Vitamin B-12) 1,000 mcg PO DAILY supplement 06/26/22 carvedilol 6.25 mg tablet 6.25 mg PO BID #60 tabs 05/13/23 dapagliflozin propanediol 10 mg tablet (Farxiga) 10 mg PO DAILY diabetes 08/29/23 gabapentin 100 mg capsule 100 mg PO QHS unsure 08/29/23 pantoprazole 40 mg tablet,delayed release 40 mg PO DAILY prevent stomach ulcers 08/29/23 allopurinol 100 mg tablet 200 mg (2 x 100 mg) PO DAILYCM #30 tabs 09/03/23 insulin glargine-yfgn 100 unit/mL (3 mL) subcutaneous pen 10 unit (0.1 mL) subcut DAILY #15 mL 09/03/23 pen needle, diabetic 33 gauge x 3/16 #100 ea 09/03/23 metolazone 2.5 mg tablet 2.5 mg PO .Thursday #8 tabs 09/09/23 epinephrine 0.3 mg/0.3 mL injection, auto-injector 0.3 mg (0.3 mL) IM Q4H PRN anaphylaxis #2 ea 10/03/23 bumetanide 0.5 mg tablet 0.5 mg PO BID 10/04/23 prednisone 20 mg tablet 30 mg PO .COMPLEX 10/04/23 Vancomycin IV-PHARMACY TO DOSE 1 ea IV X1 PRN ##0 10/07/23 Physical Exam Narrative GENERAL: cooperative HEENT: Atraumatic; normocephalic EYES; Anicteric, Normal Conjunctiva NECK; supple, normal thyroid, RESPIRATORY: Diminished to auscultation CARDIOVASCULAR: Irregular S1-S2 GI: soft, normoactive bowel sounds, : No Renal angle tenderness; EXTREMITIES: No edema, no clubbing, MUSCULOSKELETAL: no muscle wasting NEURO: Awake; no lateralizing signs. SKIN: No Rash PSYCH; Flat affect Medical Records Data Medical Nutrition Assessment Dietitian: Malnutrition Criteria Met Start: 10/05/23 06:56 Freq: Status: Active Protocol: Document 10/05/23 06:56 SLA (Rec: 10/05/23 06:56 SLA Desktop) Nutrition Malnutrition Evidence of Malnutrition Exists Yes Malnutrition (severe): Acute Illness/Injury Evidenced By Suboptimal Energy Intake ( Severe),Weight Loss (Severe) Intake Problem Inadequate Oral Intake Status Inactive Problem Clinical Problem Acute Disease or Injury Related Malnutrition Etiology related to acute illness and recent initiation of HD Signs/Symptoms as evidenced by <50% of est nutritional needs x 2 wks and 11.6% wt loss x 6 wks Status Active Problem Altered Nutrient-Related Laboratory Values Etiology related to diabetes and renal dysfunction Signs/Symptoms as evidenced by gluc 193, BUN 39, Cr 2.96 Status Active Problem Recommendation Dietitian Recommendations/Changes Will change diet to Renal general w/ Consistent CHO Will order 4 oz [employer] shake 4x/day w/ medpass for increased nutrition if consumed. Weight / BMI Weight Weight: 77.5 kg Body Mass Index (BMI) 28.4 ABG / Lab / Microbiology Data 10/07/23 03:40 10/07/23 03:40 Laboratory: Laboratory Results - last 24 hr 10/06/23 17:15: POC Glucose 204 H 10/06/23 20:38: POC Glucose 111 H 10/07/23 03:40: WBC 17.4 H, RBC 3.37 L, Hgb 9.7 L, Hct 28.5 L, MCV 84.6, MCH 28.8, MCHC 34.0, RDW Std Deviation 45.7 H, RDW Coeff of Kiersten 14.7 H, Plt Count 90 L, MPV 12.9 H, Immature Gran % (Auto) 4.900 H, Neut % (Auto) 83.5 H, Lymph % (Auto) 5.0 L, [place] % (Auto) 5.9, Eos % (Auto) 0.0, Baso % (Auto) 0.7, Absolute Neuts (auto) 14.5 H, Absolute Lymphs (auto) 0.87, Nucleated RBC % 0, PT 14.2, INR 1.1, Sodium 129 L, Potassium 3.5, Chloride 97 L, Carbon Dioxide 24.0, Anion Gap 8, BUN 59 H, Creatinine 2.42 H, Estim Creat Clear Calc 23.38, Est GFR (MDRD) Af Amer 33 L, Est GFR (MDRD) Non-Af 28 L, BUN/Creatinine Ratio 24.4 H, Glucose 212 H, Calcium 9.1, Random Vancomycin 17.5 H 10/07/23 07:39: POC Glucose 186 H 10/07/23 10:54: POC Glucose 281 H Microbiology: Microbiology 10/06/23 15:30 Other - Dialysis/Fistula Miscellaneous Culture - Preliminary Staphylococcus aureus 10/06/23 15:30 Other - Dialysis/Fistula Gram Stain - Final 10/05/23 13:17 Blood Culture (Wb) - Anticubital Right Blood Culture - Preliminary Staphylococcus aureus 10/05/23 11:15 Blood Culture (Wb) - Port Blood Culture - Preliminary Staphylococcus aureus 10/06/23 10:40 Blood Culture (Wb) - Left Forearm Blood Culture - Preliminary 10/04/23 14:20 Blood Culture (Wb) - Left Hand Blood Culture - Final Staphylococcus aureus 10/04/23 14:30 Blood Culture (Wb) - Right Wrist Bacteria Detection (PCR) - Final Meth. resistant Staph. aureus 10/04/23 14:30 Blood Culture (Wb) - Right Wrist Blood Culture - Final Meth. resistant Staph. aureus 10/04/23 10:37 Mucosa - Nose Respiratory Panel (PCR) - Final 10/04/23 10:18 Mucosa - Nose SARS-CoV-2, Influenza & RSV (PCR) - Final Radiography Diagnostic Testing: Radiology Impression Wrist X-Ray 10/06/23 10:42 IMPRESSION: 1. Increasing soft tissue swelling posterior to the wrist. Otherwise stable. 2. No rapidly progressive joint space narrowing or periarticular lytic lesion is seen to indicate septic arthritis at this time. Electronically Signed: Rod Ponce MD at 2:55 EST , ADDENDUM: 10/07/23 0322 IMPRESSION: undefined Brain CT 02/06/24 17:18 IMPRESSION: Volume loss with chronic white matter changes. No acute intracranial findings. Electronically Signed: Constantino Pierre MD at 17:42 EST , ADDENDUM: 10/06/23 1809 IMPRESSION: Volume loss with chronic white matter changes. No acute intracranial findings. N.B. : Elia Ewing DO, confirmed on 10/06/2023 18:02:44 (ET) that the referring physician received the results and does not require a verbal communication. Electronically Signed: Constantino Pierre MD at 17:42 EST , Head/Neck CTA 10/06/23 17:29 IMPRESSION: No acute abnormality. No large vessel occlusions. Prominent intracranial calcific atherosclerosis and up to 50% stenosis of both cavernous carotid arteries. Bilateral ICA plaque with mild grade stenosis of the right ICA and moderate grade stenosis of the left ICA. Electronically Signed: Darinel Reveles MD at 18:07 EST , ADDENDUM: 10/06/23 1823 IMPRESSION: No acute abnormality. No large vessel occlusions. Prominent intracranial calcific atherosclerosis and up to 50% stenosis of both cavernous carotid arteries. Bilateral ICA plaque with mild grade stenosis of the right ICA and moderate grade stenosis of the left ICA. N.B. : The above Results were Read Back by Darinel Reveles MD to Elia Ewing DO, and understanding confirmed on 10/06/2023 18:17:03 (ET). Electronically Signed: Darinel Reveles MD at 18:07 EST , Meaningful Use Info Meaningful Use Diagnoses (Choose all that apply): None applicable Discharge Plan Admission Admit Date/Time: 10/04/23 08:27 Attending Provider: Lee Guillory Primary Care Provider: Howard Escobar Consulting Providers: Gurdeep De Luna; Ellis Alejo; Johnny Campos; Sam Almonte; Raulito Barahona; Jaswant Saini Discharge Orders/Prescriptions Prescriptions: New Vancomycin Iv-Pharmacy To Dose [Vancomycin Iv-Pharmacy To Dose] 1 ea IV X1 PRNQty: 0 0RF Continued finasteride 5 mg tablet 5 mg PO DAILY Patient Comments: TAKE 1 TABLET BY MOUTH ONCE DAILY cyanocobalamin (vitamin B-12) [Vitamin B-12] 1,000 mcg tablet 1,000 mcg PO DAILY metolazone 2.5 mg tablet 2.5 mg PO .Thursday Qty: 8 1RF warfarin 2.5 mg tablet 5 mg PO .COMPLEX Rx Instructions: 5 mg orally on //thu and thursday; 2.5mg po thu/thursday dapagliflozin propanediol [Farxiga] 10 mg tablet 10 mg PO DAILY gabapentin 100 mg capsule 100 mg PO QHS Rx Instructions: take 1-2 100mg capsules at bedtime daily; pantoprazole 40 mg tablet,delayed release (DR/EC) 40 mg PO DAILY insulin glargine-yfgn 100 unit/mL (3 mL) Insulin Pen 10 unit subcut DAILY Qty: 15 0RF allopurinol 100 mg Tablet 200 mg PO DAILYCM Qty: 30 0RF (DME) pen needle, diabetic 33 gauge x 3/16 needle See Rx Instructions .Route Qty: 100 0RF Rx Instructions: As directed bumetanide 0.5 mg Tablet 0.5 mg PO BID Rx Instructions: Start on 09/04/2023 prednisone 20 mg Tablet 30 mg PO .COMPLEX Rx Instructions: 30mg x one week,20mg times one week, then 5mg on 10/05/23 orally; epinephrine 0.3 mg/0.3 mL auto-injector 0.3 mg IM Q4H PRN (Reason: anaphylaxis) Qty: 2 0RF carvedilol 6.25 mg tablet 6.25 mg PO BID Qty: 60 11RF Patient Comments: BID ON //SUN Rx Instructions: must administer with a meal/food Referrals / Follow Up: Howard Escobar DO [Primary Care Provider] - Disposition Disposition (needs filled in before D/C Order can be placed): Acute Care Hospital Charges/Coding Visit Charges Inpatient E&M: 33228 Disch Hosp >30min
[2023-10-07 19:05] LABS: Bedside Glucose 213 mg/dL (74-106)
[2023-10-07] MEDS: 0.9% Saline Lock 10 ML Syringe IV (20:49)
[2023-10-07] MEDS: CARBOXYMETHYLCELLULOSE SODIUM 1 DRP DROPS OPHTHALMIC (20:50)
[2023-10-07] MEDS: Glucerna Shake 120 ML LIQUID PO (20:50)
[2023-10-07 21:19] LABS: Bedside Glucose 324 mg/dL (74-106)
[2023-10-07] MEDS: Insulin Lispro 100 UNIT/ML INSULN.PEN 6 UNIT SC (22:16)
[2023-10-08 03:30] VITALS: BP 150/83; PULSE 83; RESP 21; TEMP 36.5; O2SAT 98
[2023-10-08] MEDS: Acetaminophen 325 MG Tablet 650 MG PO ×2 (03:35→20:26)
[2023-10-08] MEDS: 0.9% Saline Lock 10 ML Syringe IV (03:37)
[2023-10-08 03:49] LABS: Hematocrit 31.1 % (40-54); Hemoglobin 10.6 g/dL (13.0-16.5); Mean Corp Hgb Conc 34.1 g/dL (32-36); Mean Corpuscular Hgb 28.7 pg (27.0-32.0); Mean Corpuscular Volume 84.3 fL (80-94); Mean Platelet Vol. 11.6 fl (6.2-12.0); POSITIVE COUNT YES; POSITIVE MORPHOLOGY YES; Platelet Count 122 K/mm3 (150-450); RBC Distribution Width SD 45.3 fl (35.1-43.9); Red Blood Count 3.69 M/mm3 (4.6-6.2); White Blood Count 15.9 K/mm3 (4.4-11.0)
[2023-10-08 03:56] LABS: International Normalized Ratio 1.1; Prothrombin Time (Protime)PT. 13.9 SECONDS (11.7-14.9)
[2023-10-08 04:13] LABS: Differential Indicated MANUAL DIFF
[2023-10-08 04:25] LABS: Anion Gap 10 (5-15); BUN 61 mg/dL (7-18); BUN/Creat Ratio 24.9 RATIO (10-20); Calcium,Total 9.1 mg/dL (8.5-10.1); Chloride 95 mmol/L (98-107); Creatinine, Serum 2.45 mg/dL (0.70-1.30); EST Glomerular Filtration Rate 27 mL/min (>60); Est Glom Filt Rate - Afr Amer 33 mL/min (>60); Glucose 161 mg/dL (74-106); Potassium 2.7 mmol/L (3.5-5.1); Sodium Level 129 mmol/L (136-145)
[2023-10-08 05:15] LABS: Myelocyte 7 % (0-0); Neutrophil-Band 8 % (0-5); Neutrophil-Segmented 74 % (47-70); Total Cells Counted 100 (MANUAL DIFF)
[2023-10-08 05:16] LABS: Lymphocyte 5 % (19-41); Monocyte 4 % (0-10); Promyelocyte 2 % (0-0)
[2023-10-08 05:17] LABS: Absolute Lymphocyte Count 0.79 X10^3/uL (0.83-4.51)
[2023-10-08 05:18] LABS: Stomatocyte 1+
[2023-10-08 05:19] LABS: Differential Comment SCANNED
[2023-10-08 06:00] VITALS: BMI 28.0
[2023-10-08] MEDS: Potassium Chloride Oral Tablet 20 MEQ 40 MEQ PO ×2 (06:11→11:10)
--- NOTE | 2023-10-08 07:19 | PCM.PN.HOSP ---
Reason for Visit Reason for Visit: Diagnoses Sepsis, unspecified organism (10/04/23) Methicillin resistant Staphylococcus aureus infection as the cause of diseases classified elsewhere (10/04/23) Addisonian crisis (10/04/23) Hypo-osmolality and hyponatremia (10/04/23) Nonrheumatic mitral (valve) insufficiency (10/04/23) Other hypertrophic cardiomyopathy (10/04/23) Left bundle-branch block, unspecified (10/04/23) Longstanding persistent atrial fibrillation (10/04/23) Other persistent atrial fibrillation (10/04/23) Chronic combined systolic (congestive) and diastolic (congestive) heart failure (10/04/23) Hypotension, unspecified (10/04/23) End stage renal disease (10/04/23) Rash and other nonspecific skin eruption (10/04/23) Other malaise (10/04/23) Severe sepsis with septic shock (10/04/23) Bacteremia (10/04/23) Other specified abnormal findings of blood chemistry (10/04/23) 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 Currently awaiting a bed. Diagnostic data this morning reviewed. Current for potassium of 2.7. Patient complains of significant blurry vision in the left eye Objective Data Objective Data Vital Signs: Vital Signs Temp Pulse Resp BP Pulse Ox O2 Del Method O2 Flow Rate 97.7 F L 83 21 H 150/83 H 98 Room Air 2 10/08/23 03:30 10/08/23 03:30 10/08/23 03:30 10/08/23 03:30 10/08/23 03:30 10/08/23 03:41 10/04/23 19:00 FiO2 30 10/05/23 20:00 Oxygen Flow Rate (L/min) 2 Oxygen Delivery Method Room Air Weight: 76.5 kg Body Mass Index (BMI) 28.0 Intake & Output: Intake and Output for Last 24 Hours 10/06/23 10/07/23 10/08/23 23:59 23:59 23:59 Intake Total 721 / 721 860 / 860 240 / 240 Output Total 900 / 900 725 / 725 Balance 721 / 721 -40 / -40 -485 / -485 Medical Nutrition Assessment Dietitian: Malnutrition Criteria Met Start: 10/05/23 06:56 Freq: Status: Active Protocol: Document 10/05/23 06:56 SLA (Rec: 10/05/23 06:56 SLA Desktop) Nutrition Malnutrition Evidence of Malnutrition Exists Yes Malnutrition (severe): Acute Illness/Injury Evidenced By Suboptimal Energy Intake ( Severe),Weight Loss (Severe) Intake Problem Inadequate Oral Intake Status Inactive Problem Clinical Problem Acute Disease or Injury Related Malnutrition Etiology related to acute illness and recent initiation of HD Signs/Symptoms as evidenced by <50% of est nutritional needs x 2 wks and 11.6% wt loss x 6 wks Status Active Problem Altered Nutrient-Related Laboratory Values Etiology related to diabetes and renal dysfunction Signs/Symptoms as evidenced by gluc 193, BUN 39, Cr 2.96 Status Active Problem Recommendation Dietitian Recommendations/Changes Will change diet to Renal general w/ Consistent CHO Will order 4 oz glucerna shake 4x/day w/ medpass for increased nutrition if consumed. Lab / Micro Data 10/08/23 03:38 10/08/23 03:38 Labs: Laboratory Results - last 24 hr 10/07/23 07:39: POC Glucose 186 H 10/07/23 10:54: POC Glucose 281 H 10/07/23 16:04: POC Glucose 213 H 10/07/23 20:55: POC Glucose 324 H 10/08/23 03:38: WBC 15.9 H, RBC 3.69 L, Hgb 10.6 L, Hct 31.1 L, MCV 84.3, MCH 28.7, MCHC 34.1, RDW Std Deviation 45.3 H, RDW Coeff of Kiersten 15.0 H, Plt Count 122 L, MPV 11.6, Neut % (Auto) Not Reportable, Absolute Neuts (auto) 13.0 H, Absolute Lymphs (auto) 0.79 L, Total Counted 100, Neutrophils % (Manual) 74 H, Band Neutrophils % 8 H, Lymphocytes % (Manual) 5 L, Monocytes % (Manual) 4, Myelocytes % 7 H, Promyelocytes % 2 H, Differential Comment SCANNED, Diff Path Review May foll, Stomatocytes 1+, PT 13.9, INR 1.1, Sodium 129 L, Potassium 2.7 L*, Chloride 95 L, Carbon Dioxide 24.0, Anion Gap 10, BUN 61 H, Creatinine 2.45 H, Estim Creat Clear Calc 23.10, Est GFR (MDRD) Af Amer 33 L, Est GFR (MDRD) Non-Af 27 L, BUN/Creatinine Ratio 24.9 H, Glucose 161 H, Calcium 9.1 Micro: Microbiology 10/07/23 13:25 Blood Culture (Wb) - Left Wrist Blood Culture - Preliminary 10/06/23 15:30 Other - Dialysis/Fistula Miscellaneous Culture - Preliminary Staphylococcus aureus 10/06/23 15:30 Other - Dialysis/Fistula Gram Stain - Final 10/05/23 13:17 Blood Culture (Wb) - Anticubital Right Blood Culture - Preliminary Staphylococcus aureus 10/05/23 11:15 Blood Culture (Wb) - Port Blood Culture - Preliminary Staphylococcus aureus 10/06/23 10:40 Blood Culture (Wb) - Left Forearm Blood Culture - Preliminary 10/04/23 14:20 Blood Culture (Wb) - Left Hand Blood Culture - Final Staphylococcus aureus 10/04/23 14:30 Blood Culture (Wb) - Right Wrist Bacteria Detection (PCR) - Final Meth. resistant Staph. aureus 10/04/23 14:30 Blood Culture (Wb) - Right Wrist Blood Culture - Final Meth. resistant Staph. aureus 10/04/23 10:37 Mucosa - Nose Respiratory Panel (PCR) - Final 10/04/23 10:18 Mucosa - Nose SARS-CoV-2, Influenza & RSV (PCR) - Final Rhythm Strip Rhythm Strip: A-fib Rate: 74 Physical Exam Narrative GENERAL: cooperative HEENT: Atraumatic; normocephalic EYES; Anicteric, Normal Conjunctiva NECK; supple, normal thyroid, RESPIRATORY: Diminished to auscultation CARDIOVASCULAR: Irregular S1-S2 GI: soft, normoactive bowel sounds, : No Renal angle tenderness; EXTREMITIES: No edema, no clubbing, MUSCULOSKELETAL: no muscle wasting NEURO: Awake; no lateralizing signs. SKIN: No Rash PSYCH; Flat affect Assessment & Plan Assessment/Plan (1) ESRD (end stage renal disease): (2) Septic shock: (3) MRSA bacteremia: PLAN: Plan Patient is an 78-year-old gentleman admitted with progressive generalized weakness with chills. Patient was found to have significant hypotension admitted to the intensive care unit for subsequent management. Infectious workup has so far remained negative to date. 1. Septic shock secondary to MRSA bacteremia ? Suspected to be secondary to combination of septic shock of undetermined etiology as well as possible adrenal crisis. Patient admitted to the intensive care unit managed with IV fluids stress dose of steroid as well as broad-spectrum antibiotic therapy after cultures have been obtained. ? 10/06/2023 patient cultures came back positive for MRSA, Case subsequently discussed with ID plan is for patient tunneled dialysis catheter to be removed. Patient Levophed has been weaned off. 2. Elevated troponin ? Patient troponins continue to rise. Myocardial injury versus acute coronary syndrome. 2D echo ordered consult placed to cardiology 3. Essential hypertension ? Patient antihypertensives held on admission 4. Chronic congestive heart failure ? Currently euvolemic echo from 03/05/2023 demonstrated EF of 53% 5. End-stage renal disease ? Patient is on hemodialysis, consult placed to nephrology for dialysis orders ? 10/06/2023 given patient MRSA bacteremia plan is for patient tunneled dialysis catheter to be removed 6. Paroxysmal A-fib ? Rate controlled on systemic anticoagulation with warfarin with elevated INR currently being held ? 10/06/2023; patient to receive vitamin K to correct his coagulopathy prior to removal of the tunneled dialysis catheter 7. 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 Status post cardioMEMs device placement ? In February 2021 9. Diabetes mellitus type II -patient's oral hypoglycemics held. Placed on long acting insulin, Accu-Cheks a.c. and at bedtime and covered with sliding scale insulin 10. BPH with lower urinary obstructive symptoms - Patient treated with finasteride 11. DVT prophylaxis ? Patient is on Coumadin 12. Acute decreased vision in the left eye ? Suspicious for CRAO/BRAO; Stroke alert was called patient was however deemed not a candidate for thrombolytics.No large vessel occlusions. Prominent intracranial calcific atherosclerosis and up to 50% stenosis of both cavernous carotid arteries. Bilateral ICA plaque with mild grade stenosis of the right ICA and moderate grade stenosis of the left ICA.. Consult placed to ophthalmology ? Patient was seen in consultation by Dr. Saini with ophthalmology. After his evaluation his assessment was that patient had left eye endogenous endophthalmitis. He subsequently amended for patient to be transferred to a tertiary care center specifically [facility]. Call was placed patient was accepted for transfer 13. Hypokalemia -Corrected per protocol Time spent in the patient's overall evaluation,decision-making process, review of diagnostic data, adjustment of management, discussion with other providers, nursing nursing and ancillary staff involved in patient's care documentation, 50 Minutes CODE STATUS; DNR Comfort Care arrest no intubation. Charges/Coding Visit Charges Inpatient E&M: 24583 Subs Hosp L3
[2023-10-08 08:30] VITALS: BP 101/61; PULSE 83; RESP 18; TEMP 36.1; O2SAT 95
[2023-10-08] MEDS: Finasteride 5 MG Tablet PO (08:33)
[2023-10-08] MEDS: Allopurinol 100 MG Tablet 200 MG PO (08:33)
[2023-10-08] MEDS: Furosemide 80 MG Tablet PO (08:33)
[2023-10-08] MEDS: Carvedilol 6.25 MG Tablet PO ×2 (08:33→16:14)
[2023-10-08] MEDS: Empagliflozin 25 MG Tablet PO (08:33)
[2023-10-08] MEDS: Pantoprazole Sodium 40 MG Tablet PO (08:33)
[2023-10-08] MEDS: Insulin Lispro 100 UNIT/ML INSULN.PEN SC ×2 (08:35→16:13)
[2023-10-08] MEDS: Insulin Lispro 100 UNIT/ML INSULN.PEN 8 UNIT SC ×2 (08:35→16:13)
[2023-10-08] MEDS: Insulin Glargine-YFGN 100 UNIT/ML Pen 20 UNIT SC (08:36)
[2023-10-08] MEDS: Enoxaparin 80 MG/0.8 ML Syringe SC (08:36)
--- NOTE | 2023-10-08 09:51 | PHA.PHARE_ITS ---
Consult Antibiotic Management Pharmacy has been consulted to manage selected antibiotic: Vancomycin Type of Intervention Type of Consult: Follow-up Suspected Infection Suspected Infection: Bacteremia Labs Labs: Sodium 129 mmol/L (136-145) L 10/08/23 03:38 Potassium 2.7 mmol/L (3.5-5.1) L* 10/08/23 03:38 Chloride 95 mmol/L (98-107) L 10/08/23 03:38 Carbon Dioxide 24.0 mmol/L (21.0-32.0) 10/08/23 03:38 Anion Gap 10 (5-15) 10/08/23 03:38 BUN 61 mg/dL (7-18) H 10/08/23 03:38 Creatinine 2.45 mg/dL (0.70-1.30) H 10/08/23 03:38 Est GFR (MDRD) Af Amer 33 mL/min (>60) L 10/08/23 03:38 Est GFR (MDRD) Non-Af 27 mL/min (>60) L 10/08/23 03:38 BUN/Creatinine Ratio 24.9 RATIO (10-20) H 10/08/23 03:38 Glucose 161 mg/dL (74-106) H 10/08/23 03:38 Random Vancomycin 17.5 ug/mL (0.0-15.0) H 10/07/23 03:40 Microbiology Microbiology: Microbiology 10/07/23 13:25 Blood Culture (Wb) - Left Wrist Blood Culture - Preliminary 10/06/23 10:40 Blood Culture (Wb) - Left Forearm Blood Culture - Preliminary Staphylococcus aureus 10/05/23 13:17 Blood Culture (Wb) - Anticubital Right Blood Culture - Final Meth. resistant Staph. aureus 10/05/23 11:15 Blood Culture (Wb) - Port Blood Culture - Final Meth. resistant Staph. aureus 10/06/23 15:30 Other - Dialysis/Fistula Miscellaneous Culture - Final Meth. resistant Staph. aureus 10/06/23 15:30 Other - Dialysis/Fistula Gram Stain - Final 10/04/23 14:20 Blood Culture (Wb) - Left Hand Blood Culture - Final Staphylococcus aureus 10/04/23 14:30 Blood Culture (Wb) - Right Wrist Bacteria Detection (PCR) - Final Meth. resistant Staph. aureus 02/04/24 14:30 Blood Culture (Wb) - Right Wrist Blood Culture - Final Meth. resistant Staph. aureus 10/04/23 10:37 Mucosa - Nose Respiratory Panel (PCR) - Final 10/04/23 10:18 Mucosa - Nose SARS-CoV-2, Influenza & RSV (PCR) - Final Goal Trough Goal Trough: 15-20 mcg/mL Pharmacy Plan for Drug Dosing Pharmacy Plan for Drug Dosing: Current Vancomycin Dose: DOSING PER HD Number of Doses Received: 2 (LOADING + 1 POST-HD DOSE) Current Renal Function: ON HD- Patient with infected HD line, was pulled. HD now on hold until line can be replaced. Line will be replaced once blood cultures are negative per nursing discussion today. Renal Function Trend: n/a Lab/Micro: Cx showing MRSA. Most recent Bcx from 10/07 gram stain showing GPC. Any Change in Vanc Plan: Yes. Patient typically dosed based on pre-HD levels, but HD will not be resumed until blood cultures are clear. Given the fact that the patient is growing MRSA in the blood requiring vancomycin, will dose based on random levels until normal HD can resume. Pharmacy will follow-up daily to see if/when HD line will be replaced. At that time, we will resume normal pre-HD level based dosing. The Patient's last HD level 10/07/23 was 17.5. Verified with H D nurse, patient did not get any HD on that day, meaning this level can still be used for dosing. Since the patient is within the dosing window, will administer Vancomycin 500mg IV x1 today. Pending Level: *RANDOM* level 10/10/23 with AM labs (0600). If trough <20 at that time, will re-dose. If elevated, will schedule another random trough to assess dosing need. Pharmacy Service will continue to monitor and adjust dosing as required.
--- NOTE | 2023-10-08 10:32 | PCM.PN.ID ---
Physical Exam Narrative L eye vision slightly improved, no fever, feeling distressed Const alert General Appearance: cooperative Resp normal air movement and clear to auscultation bilaterally Cardio regular rate and regular rhythm GI soft to palpation, non-tender and non-distended Extremity General Extremity: Negative for edema Skin Skin Narrative: bilat wrist soreness ID ID: Route of nutrition/ use of supplements: [] Nutritional Intake: [] IV Site: [] Lanier Catheter: [] Assessment & Plan Assessment/Plan (1) ESRD (end stage renal disease): (2) Septic shock: PLAN: septic shock due to MRSA bacteremia - suspect HD cath as source. TTE showed no veg. Line removed 10/06/23. Will repeat bcx. Cont vanc. Having ongoing L wrist pain and limited ROM, recommend ortho eval. New L eye vision changes, seen by ophtho, dx with endophthalmitis, transfer planned Will follow (3) MRSA bacteremia:
--- NOTE | 2023-10-08 10:45 | PN.RENAL_ITS ---
Documented by User: RG Ya 10/08/23 10:57 Subjective Subjective Sitting in chair. No overnight events. Reports vision to left eye somewhat improved this morning. Complaining of pain in both arms more right than left. Denies any nausea or vomiting. Objective Data Objective Data Vital Signs: Vital Signs Temp Pulse Resp BP Pulse Ox O2 Del Method O2 Flow Rate 96.9 F L 83 18 101/61 95 Room Air 2 10/08/23 08:30 10/08/23 08:30 10/08/23 08:30 10/08/23 08:30 10/08/23 08:30 10/08/23 08:30 10/04/23 19:00 FiO2 30 10/05/23 20:00 Oxygen Flow Rate (L/min) 2 Oxygen Delivery Method Room Air Weight: 76.5 kg Body Mass Index (BMI) 28.0 Intake & Output: Intake and Output for Last 24 Hours 10/06/23 10/07/23 10/08/23 23:59 23:59 23:59 Intake Total 721 / 721 860 / 860 240 / 240 Output Total 900 / 900 725 / 725 Balance 721 / 721 -40 / -40 -485 / -485 Medical Nutrition Assessment Dietitian: Malnutrition Criteria Met Start: 10/05/23 06:56 Freq: Status: Active Protocol: Document 10/05/23 06:56 SLA (Rec: 10/05/23 06:56 SLA Desktop) Nutrition Malnutrition Evidence of Malnutrition Exists Yes Malnutrition (severe): Acute Illness/Injury Evidenced By Suboptimal Energy Intake ( Severe),Weight Loss (Severe) Intake Problem Inadequate Oral Intake Status Inactive Problem Clinical Problem Acute Disease or Injury Related Malnutrition Etiology related to acute illness and recent initiation of HD Signs/Symptoms as evidenced by <50% of est nutritional needs x 2 wks and 11.6% wt loss x 6 wks Status Active Problem Altered Nutrient-Related Laboratory Values Etiology related to diabetes and renal dysfunction Signs/Symptoms as evidenced by gluc 193, BUN 39, Cr 2.96 Status Active Problem Recommendation Dietitian Recommendations/Changes Will change diet to Renal general w/ Consistent CHO Will order 4 oz glucerna shake 4x/day w/ medpass for increased nutrition if consumed. Lab / Micro Data 10/08/23 03:38 10/08/23 03:38 Labs: Laboratory Results - last 24 hr 10/07/23 10:54: POC Glucose 281 H 10/07/23 16:04: POC Glucose 213 H 10/07/23 20:55: POC Glucose 324 H 10/08/23 03:38: WBC 15.9 H, RBC 3.69 L, Hgb 10.6 L, Hct 31.1 L, MCV 84.3, MCH 28.7, MCHC 34.1, RDW Std Deviation 45.3 H, RDW Coeff of Kiersten 15.0 H, Plt Count 122 L, MPV 11.6, Neut % (Auto) Not Reportable, Absolute Neuts (auto) 13.0 H, Absolute Lymphs (auto) 0.79 L, Total Counted 100, Neutrophils % (Manual) 74 H, Band Neutrophils % 8 H, Lymphocytes % (Manual) 5 L, Monocytes % (Manual) 4, Myelocytes % 7 H, Promyelocytes % 2 H, Differential Comment SCANNED, Diff Path Review December foll, Stomatocytes 1+, PT 13.9, INR 1.1, Sodium 129 L, Potassium 2.7 L*, Chloride 95 L, Carbon Dioxide 24.0, Anion Gap 10, BUN 61 H, Creatinine 2.45 H, Estim Creat Clear Calc 23.10, Est GFR (MDRD) Af Amer 33 L, Est GFR (MDRD) Non-Af 27 L, BUN/Creatinine Ratio 24.9 H, Glucose 161 H, Calcium 9.1 Micro: Microbiology 10/07/23 13:25 Blood Culture (Wb) - Left Wrist Blood Culture - Preliminary 10/06/23 10:40 Blood Culture (Wb) - Left Forearm Blood Culture - Preliminary Staphylococcus aureus 10/05/23 13:17 Blood Culture (Wb) - Anticubital Right Blood Culture - Final Meth. resistant Staph. aureus 10/05/23 11:15 Blood Culture (Wb) - Port Blood Culture - Final Meth. resistant Staph. aureus 10/06/23 15:30 Other - Dialysis/Fistula Miscellaneous Culture - Final Meth. resistant Staph. aureus 10/06/23 15:30 Other - Dialysis/Fistula Gram Stain - Final 10/04/23 14:20 Blood Culture (Wb) - Left Hand Blood Culture - Final Staphylococcus aureus 10/04/23 14:30 Blood Culture (Wb) - Right Wrist Bacteria Detection (PCR) - Final Meth. resistant Staph. aureus 10/04/23 14:30 Blood Culture (Wb) - Right Wrist Blood Culture - Final Meth. resistant Staph. aureus 10/04/23 10:37 Mucosa - Nose Respiratory Panel (PCR) - Final 10/04/23 10:18 Mucosa - Nose SARS-CoV-2, Influenza & RSV (PCR) - Final Rhythm Strip Rhythm Strip: A-fib Rate: 74 Physical Exam Narrative Alert orient x 3, no acute distress S1, S2, RRR Lung sounds clear anteriorly and posteriorly Abdomen soft, nontender No pitting edema bilateral legs Assessment & Plan Assessment/Plan (1) ESRD (end stage renal disease): (2) Hyponatremia: (3) Hypotension: PLAN: Plan Impression/Plan: 78-year-old man who is known to our service for history of hypervolemic CKD stage IV/V, type 2 diabetes mellitus, hypertension, CAD, HFpEF with diastolic dysfunction, moderate pulmonary hypertension, KIMBERLY, and hyperlipidemia. The patient presents to the hospital with hypotension/circulatory shock which is being investigated. Nephrology is following for dialysis management. History of CKD stage IV/V Recent acute renal failure requiring dialysis Possible ESRD - known history of CKD stage IV, had repeated admissions with fluid overload/CEE over the last 4 months. To stabilize, we have decided to do a trial of dialysis which he started September 17. Breathing and volume status overall improved. He was off oxygen, able to walk up to 50 yards without any issues. Now admitted with MRSA bacteremia, could be somewhat unusual to have bacteremia from catheter this soon. Exit site looks okay. He also has wrist pain which will be evaluated by orthopedics. His dialysis catheter was removed 10/06. Last dialysis was Thursday, 10/05. He is making urine. Patient's weight after outpatient dialysis on 10/02 160 lbs (72.7kg), current weight 168lbs (76.5kg). Prior to starting dialysis weight was 85 to 90 kg. We will try and keep him off dialysis for now. Creatinine today is 2.45 mg/dL, acceptable. Potassium is low and supplement ordered. Does not need renal diet. Continue Lasix as maintenance to prevent volume overload due to his previous history of congestive heart failure. He is also on SGLT2 inhibitor which can be continued for now. No plans for dialysis unless renal function worsens significantly. -Septic shock due to MRSA bacteremia, tunneled HD catheter removed 10/06. TTE showed no vegetation. On vancomycin. Left eye vision changes, seen by Optho with diagnosis of endophthalmitis - Awaiting transfer to [facility] Documented by User: Dr. Raulito Barahona MD 10/08/23 14:49 Objective Data Lab / Micro Data 10/08/23 03:38 10/08/23 03:38 Assessment & Plan Assessment/Plan (1) ESRD (end stage renal disease): (2) Hyponatremia: (3) Hypotension: PLAN: Plan Impression/Plan: 78-year-old man who is known to our service for history of hypervolemic CKD stage IV/V, type 2 diabetes mellitus, hypertension, CAD, HFpEF with diastolic dysfunction, moderate pulmonary hypertension, KIMBERLY, and hyperlipidemia. The patient presents to the hospital with hypotension/circulatory shock which is being investigated. Nephrology is following for dialysis management. History of CKD stage IV/V Recent acute renal failure requiring dialysis Possible ESRD - known history of CKD stage IV, had repeated admissions with fluid overload/CEE over the last 4 months. To stabilize, we have decided to do a trial of dialysis which he started September 17. Breathing and volume status overall improved. He was off oxygen, able to walk up to 50 yards without any issues. Now admitted with MRSA bacteremia, could be somewhat unusual to have bacteremia from catheter this soon. Exit site looks okay. He also has wrist pain which will be evaluated by orthopedics. His dialysis catheter was removed 10/06. Last dialysis was Thursday, 10/05. He is making urine. Patient's weight after outpatient dialysis on 10/02 160 lbs (72.7kg), current weight 168lbs (76.5kg). Prior to starting dialysis weight was 85 to 90 kg. We will try and keep him off dialysis for now. Creatinine today is 2.45 mg/dL, acceptable. Potassium is low and supplement ordered. Does not need renal diet. Continue Lasix as maintenance to prevent volume overload due to his previous history of congestive heart failure. He is also on SGLT2 inhibitor which can be continued for now. No plans for dialysis unless renal function worsens significantly. -Septic shock due to MRSA bacteremia, tunneled HD catheter removed 10/06. TTE showed no vegetation. On vancomycin. Left eye vision changes, seen by Optho with diagnosis of endophthalmitis - Awaiting transfer to [facility] main [place] [employer] cr stable possible transfer to [facility]
[2023-10-08] MEDS: Vancomycin IV 500 MG/100 ML BAG 100 MG IV (11:10)
--- NOTE | 2023-10-08 12:42 | CONS.ORTHO ---
HPI Consult Data Date of Consult: 10/08/23 HPI Narrative HPI Narrative: ANTWAN GE, is a 78 M who presents with left wrist swelling and pain. I was paged today on 10/08/2023 around 11 AM. Patient has been admitted to the ICU for the last 4 days with MRSA bacteremia from dialysis catheter which is since been removed. I saw the patient at noon. He mentions of pain everywhere. He has had swelling in addition to pain in the left wrist and difficulty with range of motion at least since Thursday. He is unsure if the swelling and pain have improved but he is severely limited. He also has significant abrasions throughout his right upper extremity which have been dressed and bandaged. No swelling in the right upper extremity joints. I was consulted by Dr. Almonte, infectious disease, for left wrist pain and swelling. Of note patient has endophthalmitis which has been recommended for transfer to [facility]. He has been accepted for the transfer but no timeline has been given as to when the transfer will actually happen. [facility] Medical History Abnormal ankle brachial index (LOKI) Acute hypoxic respiratory failure Anemia due to stage 3b chronic kidney disease Back pain BPH (benign prostatic hyperplasia) Cardiology follow-up encounter CHF NYHA class III Chronic combined systolic and diastolic CHF (congestive heart failure) Chronic kidney disease, stage 3b Chronic kidney disease, stage 4 (severe) Claudication Constipation CPAP (continuous positive airway pressure) dependence Diabetes Diarrhea Dietary restriction Elevated troponin (01/2021) Essential (primary) hypertension Gout Heartburn History of echocardiogram History of edema History of irregular heartbeat History of non-ST elevation myocardial infarction (NSTEMI) (07/25/21) History of pain when walking History of steroid therapy History of tobacco use HLD (hyperlipidemia) Hypertension Hypertrophic cardiomyopathy Hypokalemia Joint pain Lactic acidosis Left bundle branch block Leg cramps Leukocytosis Longstanding persistent atrial fibrillation Mitral valve insufficiency Night sweats 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 Obesity (BMI 30.0-34.9) KIMBERLY (obstructive sleep apnea) Persistent atrial fibrillation Poor appetite Presence of implantable pulmonary artery pressure and heart rate monitoring system (03/25/21) Renal infarct Restless legs Secondary pulmonary arterial hypertension Shortness of breath on exertion Wears glasses Home Medications finasteride 5 mg tablet 5 mg PO DAILY prostate 12/19/20 [History Last Taken 12/22/20] warfarin 2.5 mg tablet 5 mg PO .COMPLEX blood thinner 03/11/21 [History Last Taken 05/31/22] cyanocobalamin (vitamin B-12) 1,000 mcg tablet (Vitamin B-12) 1,000 mcg PO DAILY supplement 06/26/22 [History Last Taken Unknown] carvedilol 6.25 mg tablet 6.25 mg PO BID #60 tabs 05/13/23 [Rx Last Taken Unknown] dapagliflozin propanediol 10 mg tablet (Farxiga) 10 mg PO DAILY diabetes 08/29/23 [History Last Taken Unknown] gabapentin 100 mg capsule 100 mg PO QHS unsure 08/29/23 [History Last Taken Unknown] pantoprazole 40 mg tablet,delayed release 40 mg PO DAILY prevent stomach ulcers 08/29/23 [History Last Taken Unknown] allopurinol 100 mg tablet 200 mg (2 x 100 mg) PO DAILYCM #30 tabs 09/03/23 [Rx Last Taken Unknown] insulin glargine-yfgn 100 unit/mL (3 mL) subcutaneous pen 10 unit (0.1 mL) subcut DAILY #15 mL 09/03/23 [Rx Last Taken Unknown] pen needle, diabetic 33 gauge x 3/16 #100 ea 09/03/23 [Rx Last Taken Unknown] metolazone 2.5 mg tablet 2.5 mg PO .Thursday #8 tabs 09/09/23 [Rx Last Taken Unknown] epinephrine 0.3 mg/0.3 mL injection, auto-injector 0.3 mg (0.3 mL) IM Q4H PRN anaphylaxis #2 ea 10/03/23 [Rx Last Taken Unknown] bumetanide 0.5 mg tablet 0.5 mg PO BID 10/04/23 [History Last Taken Unknown] prednisone 20 mg tablet 30 mg PO .COMPLEX 10/04/23 [History Last Taken Unknown] Vancomycin IV-PHARMACY TO DOSE 1 ea IV X1 PRN ##0 10/07/23 [Rx Last Taken Unknown] Allergy/AdvReac Type Severity Reaction Status Date / Time metoprolol AdvReac bradycardia Verified 10/03/23 13:11 rivaroxaban [From Xarelto] AdvReac Bleeding Verified 10/04/23 15:42 Family History Father Heart disease Sister Heart disease Brother Heart disease Other Arthritis CVA (cerebral vascular accident) Depression Mental disorder Surgical History History of appendectomy History of cataract extraction History of left heart catheterization (02/19/21) History of transurethral resection of prostate (01/2019) History of ventricular septal myectomy (2000) Hx of umbilical hernia repair Social History Smoking Status: Former smoker how long ago did patient quit smokin years ago 0.25ppd second hand exposure: Yes alcohol intake: never caffeine: Yes Type: coffee Number of servings: 1 what type of physical activity do you participate in: other details: treadmill frequency: daily Vital Signs Vital Signs Vital Signs: 10/07/23 13:00 10/07/23 14:00 10/07/23 15:00 Temperature Temperature Source Pulse Rate 74 75 80 Respiratory Rate 20 H 20 H 23 H Respiratory Effort Respiratory Depth Respiratory Pattern Blood Pressure Blood Pressure [2nd BP] 108/63 131/72 H 134/82 H Blood Pressure Mean Blood Pressure Mean [2nd BP] 78 91 99 Blood Pressure Source Blood Pressure Source [2nd BP] Monitor Monitor Monitor Blood Pressure Position Blood Pressure Position [2nd BP] Sitting Sitting Sitting Blood Pressure Location Blood Pressure Location [2nd BP] Right Arm Right Arm Right Arm Pulse Ox 98 93 96 Oxygen Delivery Method Room Air Room Air Room Air 10/07/23 17:00 10/07/23 17:36 10/07/23 18:00 Temperature Temperature Source Pulse Rate 93 77 Respiratory Rate 20 H 25 H Respiratory Effort Normal Non-Labored Respiratory Depth Normal Respiratory Pattern Normal Blood Pressure Blood Pressure [2nd BP] 106/83 H 136/81 H Blood Pressure Mean Blood Pressure Mean [2nd BP] 90 99 Blood Pressure Source Blood Pressure Source [2nd BP] Monitor Monitor Blood Pressure Position Blood Pressure Position [2nd BP] Semi-Fowlers Semi-Fowlers Blood Pressure Location Blood Pressure Location [2nd BP] Left Arm Left Arm Pulse Ox 95 Oxygen Delivery Method Room Air Room Air 10/07/23 20:38 10/07/23 21:00 10/08/23 03:30 Temperature 97.8 F 97.7 F L Temperature Source Temporal Temporal Pulse Rate 82 83 Respiratory Rate 18 21 H Respiratory Effort Normal Non-Labored Respiratory Depth Normal Respiratory Pattern Normal Blood Pressure 115/84 H 150/83 H Blood Pressure [2nd BP] Blood Pressure Mean 94 105 Blood Pressure Mean [2nd BP] Blood Pressure Source Monitor Monitor Blood Pressure Source [2nd BP] Blood Pressure Position Sitting Semi-Fowlers Blood Pressure Position [2nd BP] Blood Pressure Location Left Arm Left Arm Blood Pressure Location [2nd BP] Pulse Ox 98 98 Oxygen Delivery Method Room Air Room Air CPAP 10/08/23 03:41 10/08/23 08:30 Temperature 96.9 F L Temperature Source Temporal Pulse Rate 83 Respiratory Rate 18 Respiratory Effort Normal Non-Labored Respiratory Depth Normal Respiratory Pattern Normal Blood Pressure 101/61 Blood Pressure [2nd BP] Blood Pressure Mean 74 Blood Pressure Mean [2nd BP] Blood Pressure Source Monitor Blood Pressure Source [2nd BP] Blood Pressure Position Sitting Blood Pressure Position [2nd BP] Blood Pressure Location Left Arm Blood Pressure Location [2nd BP] Pulse Ox 95 Oxygen Delivery Method Room Air Room Air Weight Weight: 168 lb 10.458 oz Body Mass Index (BMI) 28.0 Physical Exam Narrative Examination of the left wrist shows redness, warmth, severe tenderness over the dorsal aspect. Range of motion of the left wrist is limited only to a slight jog of movement with severe pain. Passive range of motion was severely resisted by the patient. Patient unable to fully extend the fingers due to pain. Unable to assess tendon mobility due to the swelling. Medical Records Data Medical Nutrition Assessment Dietitian: Malnutrition Criteria Met Start: 10/05/23 06:56 Freq: Status: Active Protocol: Document 10/05/23 06:56 [facility] (Rec: 10/05/23 06:56 [facility] Desktop) Nutrition Malnutrition Evidence of Malnutrition Exists Yes Malnutrition (severe): Acute Illness/Injury Evidenced By Suboptimal Energy Intake ( Severe),Weight Loss (Severe) Intake Problem Inadequate Oral Intake Status Inactive Problem Clinical Problem Acute Disease or Injury Related Malnutrition Etiology related to acute illness and recent initiation of HD Signs/Symptoms as evidenced by <50% of est nutritional needs x 2 wks and 11.6% wt loss x 6 wks Status Active Problem Altered Nutrient-Related Laboratory Values Etiology related to diabetes and renal dysfunction Signs/Symptoms as evidenced by gluc 193, BUN 39, Cr 2.96 Status Active Problem Recommendation Dietitian Recommendations/Changes Will change diet to Renal general w/ Consistent CHO Will order 4 oz glucerna shake 4x/day w/ medpass for increased nutrition if consumed. Lab / Micro Data 10/08/23 03:38 10/08/23 03:38 Labs: Laboratory Results - last 24 hr 10/07/23 16:04: POC Glucose 213 H 10/07/23 20:55: POC Glucose 324 H 10/08/23 03:38: WBC 15.9 H, RBC 3.69 L, Hgb 10.6 L, Hct 31.1 L, MCV 84.3, MCH 28.7, MCHC 34.1, RDW Std Deviation 45.3 H, RDW Coeff of Kiersten 15.0 H, Plt Count 122 L, MPV 11.6, Neut % (Auto) Not Reportable, Absolute Neuts (auto) 13.0 H, Absolute Lymphs (auto) 0.79 L, Total Counted 100, Neutrophils % (Manual) 74 H, Band Neutrophils % 8 H, Lymphocytes % (Manual) 5 L, Monocytes % (Manual) 4, Myelocytes % 7 H, Promyelocytes % 2 H, Differential Comment SCANNED, Diff Path Review May foll, Stomatocytes 1+, PT 13.9, INR 1.1, Sodium 129 L, Potassium 2.7 L*, Chloride 95 L, Carbon Dioxide 24.0, Anion Gap 10, BUN 61 H, Creatinine 2.45 H, Estim Creat Clear Calc 23.10, Est GFR (MDRD) Af Amer 33 L, Est GFR (MDRD) Non-Af 27 L, BUN/Creatinine Ratio 24.9 H, Glucose 161 H, Calcium 9.1 Micro: Microbiology 10/07/23 13:25 Blood Culture (Wb) - Left Wrist Blood Culture - Preliminary 10/06/23 10:40 Blood Culture (Wb) - Left Forearm Blood Culture - Preliminary Staphylococcus aureus 10/05/23 13:17 Blood Culture (Wb) - Anticubital Right Blood Culture - Final Meth. resistant Staph. aureus 10/05/23 11:15 Blood Culture (Wb) - Port Blood Culture - Final Meth. resistant Staph. aureus 10/06/23 15:30 Other - Dialysis/Fistula Miscellaneous Culture - Final Meth. resistant Staph. aureus 10/06/23 15:30 Other - Dialysis/Fistula Gram Stain - Final Rhythm Strip Rhythm Strip: A-fib Rate: 74 Assessment & Plan Assessment/Plan (1) Left wrist pain: PLAN: Plan I reviewed x-rays of his left wrist done during this admission. 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 Because of the positive blood cultures with MRSA, increased pain and swelling in the wrist joint with severe restriction of range of motion along with the redness and warmth, I clinically suspect possibility of septic arthritis. I explained to the patient and his daughter that this will likely require left wrist joint aspirate to look for white count, as well as Gram stain and culture. If these come back positive for septic arthritis, he may need an open I&D of the left wrist. All risk benefits and alternatives were discussed. Consent was taken for left wrist joint aspiration at bedside. The risks include but are not limited to persistent infection, persistent pain, joint destruction and ankylosis, hematoma formation, continued sepsis, vasovagal reaction, need for surgery or further procedures. Patient understands and agrees to proceed with the aspirate. Charges/Coding Visit Charges Inpatient E&M: 35859 Init Hosp L3
[2023-10-08] MEDS: Lidocaine 1% (20 ml mdv) 20 ML Vial INFILT (13:17)
--- NOTE | 2023-10-08 13:19 | PCM.OP.PRO ---
Procedure Report Date of Procedure: 10/08/23 Left wrist bedside aspiration was performed. Details as below. ChloraPrep was used to prep the dorsal wrist. 1% lidocaine was injected subcutaneously in the region just distal to the Kacie's tubercle. Kacie tubercle was very difficult to palpate. Because of the lack of active finger movements tendons could not be well identified. After lidocaine subcutaneous injection, an 18-gauge needle was used to enter the wrist joint dorsally just distal to the Kacie's tubercle. Aspiration was attempted but no more than a drop of blood was aspirated. Needle was redirected multiple times but aspirate was dry. No specimens were sent. Gauze and Virgilio wrap dressing was applied. Assessment & Plan Assessment/Plan (1) Left wrist pain: PLAN: Plan Discussed with patient and daughter. Aspirate was dry and could not be sent for labs. Empirical treatment based on blood cultures may be continued for now. If there is continued strong suspicion for wrist septic arthritis, and IR guided aspirate may be appropriate. Will continue to watch clinically. Procedures Musculoskeletal [id number]: Other Procedure See Report (24032 Arthrocentesis, aspiration and/or injection, intermediate joint; without ultrasound guidance)
[2023-10-08 14:16] VITALS: BP 117/72; PULSE 87; RESP 16; TEMP 36.1; O2SAT 99
[2023-10-08 15:28] LABS: Anion Gap 10 (5-15); BUN 58 mg/dL (7-18); BUN/Creat Ratio 23.6 RATIO (10-20); Calcium,Total 8.8 mg/dL (8.5-10.1); Chloride 95 mmol/L (98-107); Creatinine, Serum 2.46 mg/dL (0.70-1.30); EST Glomerular Filtration Rate 27 mL/min (>60); Est Glom Filt Rate - Afr Amer 33 mL/min (>60); Estimated Creatinine Clearance 22.87 ml/min; Glucose 277 mg/dL (74-106); Potassium 3.4 mmol/L (3.5-5.1); Sodium Level 130 mmol/L (136-145)
[2023-10-08 16:27] LABS: Bedside Glucose 270 mg/dL (74-106)
[2023-10-08 20:41] VITALS: BP 123/74; PULSE 83; RESP 21; TEMP 36.9; O2SAT 99
[2023-10-08 20:48] LABS: Bedside Glucose 256 mg/dL (74-106)
[2023-10-08] MEDS: oxyCODONE 5 MG Tablet PO (23:33)
[2023-10-09 02:40] VITALS: BP 104/58; PULSE 74; RESP 16; TEMP 36.2; O2SAT 96
[2023-10-09 03:32] LABS: Mean Corp Hgb Conc 33.3 g/dL (32-36); Mean Corpuscular Hgb 28.6 pg (27.0-32.0); Mean Corpuscular Volume 85.7 fL (80-94); Mean Platelet Vol. 11.7 fl (6.2-12.0); POSITIVE COUNT YES; POSITIVE MORPHOLOGY YES; Platelet Count 128 K/mm3 (150-450); RBC Distribution Width CV 15.4 % (11.6-14.6); RBC Distribution Width SD 47.5 fl (35.1-43.9); White Blood Count 15.1 K/mm3 (4.4-11.0)
[2023-10-09 03:34] LABS: Differential Indicated MANUAL DIFF
[2023-10-09 03:44] LABS: Anion Gap 9 (5-15); BUN 60 mg/dL (7-18); BUN/Creat Ratio 25.5 RATIO (10-20); Calcium,Total 8.8 mg/dL (8.5-10.1); Chloride 98 mmol/L (98-107); Creatinine, Serum 2.35 mg/dL (0.70-1.30); EST Glomerular Filtration Rate 29 mL/min (>60); Est Glom Filt Rate - Afr Amer 35 mL/min (>60); Estimated Creatinine Clearance 23.94 ml/min; Glucose 216 mg/dL (74-106); International Normalized Ratio 1.4; Potassium 3.5 mmol/L (3.5-5.1); Prothrombin Time (Protime)PT. 17.2 SECONDS (11.7-14.9); Sodium Level 134 mmol/L (136-145)
[2023-10-09 04:22] LABS: Lymphocyte 12 % (19-41); Metamyelocyte 1 % (0-1); Monocyte 3 % (0-10); Myelocyte 6 % (0-0); Neutrophil-Band 4 % (0-5); Neutrophil-Segmented 71 % (47-70); Promyelocyte 3 % (0-0); Total Cells Counted 100 (MANUAL DIFF)
[2023-10-09 04:23] LABS: Absolute Lymphocyte Count 1.81 X10^3/uL (0.83-4.51); Absolute Neutrophil Count 11.3 X10^3/uL (2.0-7.7)
[2023-10-09 05:15] VITALS: BMI 27.8
[2023-10-09 07:17] LABS: Pathologist Review Reviewed
--- NOTE | 2023-10-09 07:20 | PCM.PN.SRG ---
Subjective Subjective Patient awaiting transfer Objective Data Objective Data Vital Signs: Vital Signs Temp Pulse Resp BP Pulse Ox O2 Del Method O2 Flow Rate 97.1 F L 74 16 104/58 L 96 Room Air 2 10/09/23 02:40 10/09/23 02:40 10/09/23 02:40 10/09/23 02:40 10/09/23 02:40 10/09/23 03:39 10/04/23 19:00 FiO2 30 10/05/23 20:00 Oxygen Flow Rate (L/min) 2 Oxygen Delivery Method Room Air Weight: 167 lb 1.766 oz Body Mass Index (BMI) 27.8 Intake & Output: Intake and Output for Last 24 Hours 10/07/23 10/08/23 10/09/23 23:59 23:59 23:59 Intake Total 860 / 860 540 / 540 100 / 100 Output Total 900 / 900 2024 350 / 350 Balance -40 / -40 -1485 / -1485 -250 / -250 Medical Nutrition Assessment Dietitian: Malnutrition Criteria Met Start: 10/05/23 06:56 Freq: Status: Active Protocol: Document 10/05/23 06:56 [facility] (Rec: 10/05/23 06:56 [facility] Desktop) Nutrition Malnutrition Evidence of Malnutrition Exists Yes Malnutrition (severe): Acute Illness/Injury Evidenced By Suboptimal Energy Intake ( Severe),Weight Loss (Severe) Intake Problem Inadequate Oral Intake Status Inactive Problem Clinical Problem Acute Disease or Injury Related Malnutrition Etiology related to acute illness and recent initiation of HD Signs/Symptoms as evidenced by <50% of est nutritional needs x 2 wks and 11.6% wt loss x 6 wks Status Active Problem Altered Nutrient-Related Laboratory Values Etiology related to diabetes and renal dysfunction Signs/Symptoms as evidenced by gluc 193, BUN 39, Cr 2.96 Status Active Problem Recommendation Dietitian Recommendations/Changes Will change diet to Renal general w/ Consistent CHO Will order 4 oz glucerna shake 4x/day w/ medpass for increased nutrition if consumed. Lab / Micro Data 10/09/23 03:23 10/09/23 03:23 Labs: Laboratory Results - last 24 hr 10/08/23 03:38: Diff Path Review Reviewed 10/08/23 15:00: Sodium 130 L, Potassium 3.4 L, Chloride 95 L, Carbon Dioxide 25.0, Anion Gap 10, BUN 58 H, Creatinine 2.46 H, Estim Creat Clear Calc 22.87, Est GFR (MDRD) Af Amer 33 L, Est GFR (MDRD) Non-Af 27 L, BUN/Creatinine Ratio 23.6 H, Glucose 277 H, Calcium 8.8 10/08/23 16:10: POC Glucose 270 H 10/08/23 20:28: POC Glucose 256 H 10/09/23 03:23: WBC 15.1 H, RBC 3.50 L, Hgb 10.0 L, Hct 30.0 L, MCV 85.7, MCH 28.6, MCHC 33.3, RDW Std Deviation 47.5 H, RDW Coeff of Kiersten 15.4 H, Plt Count 128 L, MPV 11.7, Neut % (Auto) Not Reportable, Absolute Neuts (auto) 11.3 H, Absolute Lymphs (auto) 1.81, Total Counted 100, Neutrophils % (Manual) 71 H, Band Neutrophils % 4, Lymphocytes % (Manual) 12 L, Monocytes % (Manual) 3, Metamyelocytes % 1, Myelocytes % 6 H, Promyelocytes % 3 H, Diff Path Review December, PT 17.2 H, INR 1.4, Sodium 134 L, Potassium 3.5, Chloride 98, Carbon Dioxide 27.0, Anion Gap 9, BUN 60 H, Creatinine 2.35 H, Estim Creat Clear Calc 23.94, Est GFR (MDRD) Af Amer 35 L, Est GFR (MDRD) Non-Af 29 L, BUN/Creatinine Ratio 25.5 H, Glucose 216 H, Calcium 8.8 Micro: Microbiology 10/07/23 13:25 Blood Culture (Wb) - Left Wrist Blood Culture - Preliminary 10/06/23 10:40 Blood Culture (Wb) - Left Forearm Blood Culture - Preliminary Staphylococcus aureus 10/05/23 13:17 Blood Culture (Wb) - Anticubital Right Blood Culture - Final Meth. resistant Staph. aureus 10/05/23 11:15 Blood Culture (Wb) - Port Blood Culture - Final Meth. resistant Staph. aureus 10/06/23 15:30 Other - Dialysis/Fistula Miscellaneous Culture - Final Meth. resistant Staph. aureus 10/06/23 15:30 Other - Dialysis/Fistula Gram Stain - Final 10/04/23 14:20 Blood Culture (Wb) - Left Hand Blood Culture - Final Staphylococcus aureus 10/04/23 14:30 Blood Culture (Wb) - Right Wrist Bacteria Detection (PCR) - Final Meth. resistant Staph. aureus 10/04/23 14:30 Blood Culture (Wb) - Right Wrist Blood Culture - Final Meth. resistant Staph. aureus 10/04/23 10:37 Mucosa - Nose Respiratory Panel (PCR) - Final 10/04/23 10:18 Mucosa - Nose SARS-CoV-2, Influenza & RSV (PCR) - Final Rhythm Strip Rhythm Strip: A-fib Rate: 74 Physical Exam Const oriented x3 Resp normal respiratory effort GI soft to palpation and non-tender Assessment & Plan Assessment/Plan (1) MRSA bacteremia: PLAN: Tunneled dialysis catheter was removed on Thursday. Patient is still septic with bandemia. Patient is awaiting transfer to [place] for ophthalmology evaluation. I will be out of town after today and if a new dialysis catheter needs to be placed Dr. Grissom is available. Johnny Campos MD Pager: [phone] [address] [place] [address] [address] [place] [address] Office:
--- NOTE | 2023-10-09 07:46 | PN.HOSP_ITS ---
Reason for Visit Reason for Visit: Diagnoses Sepsis, unspecified organism (10/04/23) Methicillin resistant Staphylococcus aureus infection as the cause of diseases classified elsewhere (10/04/23) Addisonian crisis (10/04/23) Hypo-osmolality and hyponatremia (10/04/23) Nonrheumatic mitral (valve) insufficiency (10/04/23) Other hypertrophic cardiomyopathy (10/04/23) Left bundle-branch block, unspecified (10/04/23) Longstanding persistent atrial fibrillation (10/04/23) Other persistent atrial fibrillation (10/04/23) Chronic combined systolic (congestive) and diastolic (congestive) heart failure (10/04/23) Hypotension, unspecified (10/04/23) Pain in left wrist (10/04/23) End stage renal disease (10/04/23) Rash and other nonspecific skin eruption (10/04/23) Other malaise (10/04/23) Severe sepsis with septic shock (10/04/23) Bacteremia (10/04/23) Other specified abnormal findings of blood chemistry (10/04/23) 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 Still awaiting bed prior to transfer to [facility] Objective Data Objective Data Vital Signs: Vital Signs Temp Pulse Resp BP Pulse Ox O2 Del Method O2 Flow Rate 97.1 F L 74 16 104/58 L 96 Room Air 2 10/09/23 02:40 10/09/23 02:40 10/09/23 02:40 10/09/23 02:40 10/09/23 02:40 10/09/23 03:39 10/04/23 19:00 FiO2 30 10/05/23 20:00 Oxygen Flow Rate (L/min) 2 Oxygen Delivery Method Room Air Weight: 75.8 kg Body Mass Index (BMI) 27.8 Intake & Output: Intake and Output for Last 24 Hours 10/07/23 10/08/23 10/09/23 23:59 23:59 23:59 Intake Total 860 / 860 540 / 540 100 / 100 Output Total 900 / 900 2024 350 / 350 Balance -40 / -40 -1485 / -1485 -250 / -250 Medical Nutrition Assessment Dietitian: Malnutrition Criteria Met Start: 10/05/23 06:56 Freq: Status: Active Protocol: Document 02/05/24 06:56 SLA (Rec: 10/05/23 06:56 SLA Desktop) Nutrition Malnutrition Evidence of Malnutrition Exists Yes Malnutrition (severe): Acute Illness/Injury Evidenced By Suboptimal Energy Intake ( Severe),Weight Loss (Severe) Intake Problem Inadequate Oral Intake Status Inactive Problem Clinical Problem Acute Disease or Injury Related Malnutrition Etiology related to acute illness and recent initiation of HD Signs/Symptoms as evidenced by <50% of est nutritional needs x 2 wks and 11.6% wt loss x 6 wks Status Active Problem Altered Nutrient-Related Laboratory Values Etiology related to diabetes and renal dysfunction Signs/Symptoms as evidenced by gluc 193, BUN 39, Cr 2.96 Status Active Problem Recommendation Dietitian Recommendations/Changes Will change diet to Renal general w/ Consistent CHO Will order 4 oz glucerna shake 4x/day w/ medpass for increased nutrition if consumed. Lab / Micro Data 10/09/23 03:23 10/09/23 03:23 Labs: Laboratory Results - last 24 hr 10/08/23 03:38: Diff Path Review Reviewed 10/08/23 15:00: Sodium 130 L, Potassium 3.4 L, Chloride 95 L, Carbon Dioxide 25.0, Anion Gap 10, BUN 58 H, Creatinine 2.46 H, Estim Creat Clear Calc 22.87, Est GFR (MDRD) Af Amer 33 L, Est GFR (MDRD) Non-Af 27 L, BUN/Creatinine Ratio 23.6 H, Glucose 277 H, Calcium 8.8 10/08/23 16:10: POC Glucose 270 H 10/08/23 20:28: POC Glucose 256 H 10/09/23 03:23: WBC 15.1 H, RBC 3.50 L, Hgb 10.0 L, Hct 30.0 L, MCV 85.7, MCH 28.6, MCHC 33.3, RDW Std Deviation 47.5 H, RDW Coeff of Kiersten 15.4 H, Plt Count 128 L, MPV 11.7, Neut % (Auto) Not Reportable, Absolute Neuts (auto) 11.3 H, Absolute Lymphs (auto) 1.81, Total Counted 100, Neutrophils % (Manual) 71 H, Band Neutrophils % 4, Lymphocytes % (Manual) 12 L, Monocytes % (Manual) 3, Metamyelocytes % 1, Myelocytes % 6 H, Promyelocytes % 3 H, Diff Path Review May foll, PT 17.2 H, INR 1.4, Sodium 134 L, Potassium 3.5, Chloride 98, Carbon Wesly xide 27.0, Anion Gap 9, BUN 60 H, Creatinine 2.35 H, Estim Creat Clear Calc 23.94, Est GFR (MDRD) Af Amer 35 L, Est GFR (MDRD) Non-Af 29 L, BUN/Creatinine Ratio 25.5 H, Glucose 216 H, Calcium 8.8 Micro: Microbiology 10/07/23 13:25 Blood Culture (Wb) - Left Wrist Blood Culture - Preliminary 10/06/23 10:40 Blood Culture (Wb) - Left Forearm Blood Culture - Preliminary Staphylococcus aureus 10/05/23 13:17 Blood Culture (Wb) - Anticubital Right Blood Culture - Final Meth. resistant Staph. aureus 10/05/23 11:15 Blood Culture (Wb) - Port Blood Culture - Final Meth. resistant Staph. aureus 10/06/23 15:30 Other - Dialysis/Fistula Miscellaneous Culture - Final Meth. resistant Staph. aureus 10/06/23 15:30 Other - Dialysis/Fistula Gram Stain - Final 10/04/23 14:20 Blood Culture (Wb) - Left Hand Blood Culture - Final Staphylococcus aureus 10/04/23 14:30 Blood Culture (Wb) - Right Wrist Bacteria Detection (PCR) - Final Meth. resistant Staph. aureus 10/04/23 14:30 Blood Culture (Wb) - Right Wrist Blood Culture - Final Meth. resistant Staph. aureus 10/04/23 10:37 Mucosa - Nose Respiratory Panel (PCR) - Final 10/04/23 10:18 Mucosa - Nose SARS-CoV-2, Influenza & RSV (PCR) - Final Rhythm Strip Rhythm Strip: A-fib Rate: 74 Physical Exam Narrative GENERAL: cooperative HEENT: Atraumatic; normocephalic EYES; Anicteric, Normal Conjunctiva NECK; supple, normal thyroid, RESPIRATORY: Diminished to auscultation CARDIOVASCULAR: Irregular S1-S2 GI: soft, normoactive bowel sounds, : No Renal angle tenderness; EXTREMITIES: No edema, no clubbing, MUSCULOSKELETAL: no muscle wasting NEURO: Awake; no lateralizing signs. SKIN: No Rash PSYCH; Flat affect Assessment & Plan Assessment/Plan (1) ESRD (end stage renal disease): (2) Septic shock: (3) MRSA bacteremia: PLAN: Plan Patient is an 78-year-old gentleman admitted with progressive generalized weakness with chills. Patient was found to have significant hypotension admitted to the intensive care unit for subsequent management. Infectious workup has so far remained negative to date. 1. Septic shock secondary to MRSA bacteremia ? Suspected to be secondary to combination of septic shock of undetermined etiology as well as possible adrenal crisis. Patient admitted to the intensive care unit managed with IV fluids stress dose of steroid as well as broad- spectrum antibiotic therapy after cultures have been obtained. ? 10/06/2023 patient cultures came back positive for MRSA, Case subsequently discussed with ID plan is for patient tunneled dialysis catheter to be removed. Patient Levophed has been weaned off. 2. Elevated troponin ? Patient troponins continue to rise. Myocardial injury versus acute coronary syndrome. 2D echo ordered consult placed to cardiology 3. Essential hypertension ? Patient antihypertensives held on admission 4. Chronic congestive heart failure ? Currently euvolemic echo from 03/05/2023 demonstrated EF of 53% 5. End-stage renal disease ? Patient is on hemodialysis, consult placed to nephrology for dialysis orders ? 10/06/2023 given patient MRSA bacteremia plan is for patient tunneled dialysis catheter to be removed 6. Paroxysmal A-fib ? Rate controlled on systemic anticoagulation with warfarin with elevated INR currently being held ? 10/06/2023; patient to receive vitamin K to correct his coagulopathy prior to removal of the tunneled dialysis catheter 7. 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 Status post cardioMEMs device placement ? In February 2021 9. Diabetes mellitus type II -patient's oral hypoglycemics held. Placed on long acting insulin, Accu-Cheks a.c. and at bedtime and covered with sliding scale insulin 10. BPH with lower urinary obstructive symptoms - Patient treated with finasteride 11. DVT prophylaxis ? Patient is on Coumadin 12. Acute decreased vision in the left eye ? Suspicious for CRAO/BRAO; Stroke alert was called patient was however deemed not a candidate for thrombolytics.No large vessel occlusions. Prominent intracranial calcific atherosclerosis and up to 50% stenosis of both cavernous carotid arteries. Bilateral ICA plaque with mild grade stenosis of the right ICA and moderate grade stenosis of the left ICA.. Consult placed to ophthalmology ? Patient was seen in consultation by Dr. Saini with ophthalmology. After his evaluation his assessment was that patient had left eye endogenous endophthal mitis. He subsequently amended for patient to be transferred to a tertiary care center specifically [facility]. Call was placed patient was accepted for transfer ? 10/09/2023 [facility] still pending 13. Hypokalemia -Corrected per protocol Time spent in the patient's overall evaluation,decision-making process, review of diagnostic data, adjustment of management, discussion with other providers, nursing nursing and ancillary staff involved in patient's care documentation, 35 Minutes CODE STATUS; DNR Comfort Care arrest no intubation. Charges/Coding Visit Charges Inpatient E&M: 96843 Subs Hosp L2
[2023-10-09 08:40] VITALS: BP 116/87; PULSE 93; RESP 18; TEMP 36; O2SAT 96
[2023-10-09 09:34] LABS: Bedside Glucose 207 mg/dL (74-106)
[2023-10-09] MEDS: Carvedilol 6.25 MG Tablet PO ×2 (09:47→18:17)
[2023-10-09] MEDS: Pantoprazole Sodium 40 MG Tablet PO (09:48)
[2023-10-09] MEDS: Allopurinol 100 MG Tablet 200 MG PO (09:48)
[2023-10-09] MEDS: Furosemide 80 MG Tablet PO (09:48)
[2023-10-09] MEDS: Finasteride 5 MG Tablet PO (09:48)
[2023-10-09] MEDS: Enoxaparin 80 MG/0.8 ML Syringe SC (09:48)
[2023-10-09] MEDS: Empagliflozin 25 MG Tablet PO (09:48)
[2023-10-09] MEDS: Insulin Lispro 100 UNIT/ML INSULN.PEN SC ×2 (09:49→18:17)
[2023-10-09] MEDS: Insulin Glargine-YFGN 100 UNIT/ML Pen 20 UNIT SC (09:50)
[2023-10-09] MEDS: Insulin Lispro 100 UNIT/ML INSULN.PEN 8 UNIT SC ×2 (09:51→18:17)
[2023-10-09 10:15] LABS: Pathologist Review Reviewed
[2023-10-09] MEDS: oxyCODONE 5 MG Tablet PO ×2 (11:23→20:19)
--- NOTE | 2023-10-09 11:43 | PCM.PN.REN ---
Documented by User: RG Ya 10/09/23 11:50 Subjective Subjective Sitting in bed. No overnight events. Reports vision about the same today. Reports pain is about the same today. Objective Data Objective Data Vital Signs: Vital Signs Temp Pulse Resp BP Pulse Ox O2 Del Method O2 Flow Rate 96.8 F L 93 18 116/87 H 96 Room Air 2 10/09/23 08:40 10/09/23 08:40 10/09/23 08:40 10/09/23 08:40 10/09/23 08:40 10/09/23 08:53 10/04/23 19:00 FiO2 30 10/05/23 20:00 Oxygen Flow Rate (L/min) 2 Oxygen Delivery Method Room Air Weight: 75.8 kg Body Mass Index (BMI) 27.8 Intake & Output: Intake and Output for Last 24 Hours 10/07/23 10/08/23 10/09/23 23:59 23:59 23:59 Intake Total 860 / 860 540 / 540 100 / 100 Output Total 900 / 900 2024 350 / 350 Balance -40 / -40 -1485 / -1485 -250 / -250 Medical Nutrition Assessment Dietitian: Malnutrition Criteria Met Start: 10/05/23 06:56 Freq: Status: Active Protocol: Document 10/05/23 06:56 SLA (Rec: 10/05/23 06:56 SLA Desktop) Nutrition Malnutrition Evidence of Malnutrition Exists Yes Malnutrition (severe): Acute Illness/Injury Evidenced By Suboptimal Energy Intake ( Severe),Weight Loss (Severe) Intake Problem Inadequate Oral Intake Status Inactive Problem Clinical Problem Acute Disease or Injury Related Malnutrition Etiology related to acute illness and recent initiation of HD Signs/Symptoms as evidenced by <50% of est nutritional needs x 2 wks and 11.6% wt loss x 6 wks Status Active Problem Altered Nutrient-Related Laboratory Values Etiology related to diabetes and renal dysfunction Signs/Symptoms as evidenced by gluc 193, BUN 39, Cr 2.96 Status Active Problem Recommendation Dietitian Recommendations/Changes Will change diet to Renal general w/ Consistent CHO Will order 4 oz glucerna shake 4x/day w/ medpass for increased nutrition if consumed. Lab / Micro Data 10/09/23 03:23 10/09/23 03:23 Labs: Laboratory Results - last 24 hr 10/08/23 03:38: Diff Path Review Reviewed 10/08/23 15:00: Sodium 130 L, Potassium 3.4 L, Chloride 95 L, Carbon Dioxide 25.0, Anion Gap 10, BUN 58 H, Creatinine 2.46 H, Estim Creat Clear Calc 22.87, Est GFR (MDRD) Af Amer 33 L, Est GFR (MDRD) Non-Af 27 L, BUN/Creatinine Ratio 23.6 H, Glucose 277 H, Calcium 8.8 10/08/23 16:10: POC Glucose 270 H 10/08/23 20:28: POC Glucose 256 H 10/09/23 03:23: WBC 15.1 H, RBC 3.50 L, Hgb 10.0 L, Hct 30.0 L, MCV 85.7, MCH 28.6, MCHC 33.3, RDW Std Deviation 47.5 H, RDW Coeff of Kiersten 15.4 H, Plt Count 128 L, MPV 11.7, Neut % (Auto) Not Reportable, Absolute Neuts (auto) 11.3 H, Absolute Lymphs (auto) 1.81, Total Counted 100, Neutrophils % (Manual) 71 H, Band Neutrophils % 4, Lymphocytes % (Manual) 12 L, Monocytes % (Manual) 3, Metamyelocytes % 1, Myelocytes % 6 H, Promyelocytes % 3 H, Diff Path Review Reviewed, PT 17.2 H, INR 1.4, Sodium 134 L, Potassium 3.5, Chloride 98, Carbon Dioxide 27.0, Anion Gap 9, BUN 60 H, Creatinine 2.35 H, Estim Creat Clear Calc 23.94, Est GFR (MDRD) Af Amer 35 L, Est GFR (MDRD) Non-Af 29 L, BUN/Creatinine Ratio 25.5 H, Glucose 216 H, Calcium 8.8 10/09/23 09:17: POC Glucose 207 H Micro: Microbiology 10/07/23 13:25 Blood Culture (Wb) - Left Wrist Blood Culture - Preliminary Staphylococcus aureus 10/06/23 10:40 Blood Culture (Wb) - Left Forearm Blood Culture - Final Meth. resistant Staph. aureus 10/05/23 13:17 Blood Culture (Wb) - Anticubital Right Blood Culture - Final Meth. resistant Staph. aureus 10/05/23 11:15 Blood Culture (Wb) - Port Blood Culture - Final Meth. resistant Staph. aureus 10/06/23 15:30 Other - Dialysis/Fistula Miscellaneous Culture - Final Meth. resistant Staph. aureus 10/06/23 15:30 Other - Dialysis/Fistula Gram Stain - Final 10/04/23 14:20 Blood Culture (Wb) - Left Hand Blood Culture - Final Staphylococcus aureus 10/04/23 14:30 Blood Culture (Wb) - Right Wrist Bacteria Detection (PCR) - Final Meth. resistant Staph. aureus 10/04/23 14:30 Blood Culture (Wb) - Right Wrist Blood Culture - Final Meth. resistant Staph. aureus 10/04/23 10:37 Mucosa - Nose Respiratory Panel (PCR) - Final 10/04/23 10:18 Mucosa - Nose SARS-CoV-2, Influenza & RSV (PCR) - Final Rhythm Strip Rhythm Strip: A-fib Rate: 74 Physical Exam Narrative Alert orient x 3, no acute distress S1, S2, RRR Lung sounds clear anteriorly and posteriorly Abdomen soft, nontender No pitting edema bilateral legs Lanier with clear yellow urine in bag Assessment & Plan Assessment/Plan (1) ESRD (end stage renal disease): (2) Hyponatremia: (3) Hypotension: PLAN: Plan Impression/Plan: 78-year-old man who is known to our service for history of hypervolemic CKD stage IV/V, type 2 diabetes mellitus, hypertension, CAD, HFpEF with diastolic dysfunction, moderate pulmonary hypertension, KIMBERLY, and hyperlipidemia. The patient presents to the hospital with hypotension/circulatory shock which is being investigated. Nephrology is following for dialysis management. History of CKD stage IV/V Recent acute renal failure requiring dialysis Possible ESRD - known history of CKD stage IV, had repeated admissions with fluid overload/CEE over the last 4 months. To stabilize, we have decided to do a trial of dialysis which he started September 17. Breathing and volume status overall improved. He was off oxygen, able to walk up to 50 yards without any issues. Now admitted with MRSA bacteremia, could be somewhat unusual to have bacteremia from catheter this soon. Exit site looks okay. His dialysis catheter was removed 10/06. Last dialysis was Thursday, 10/05. He is making urine, around 2L yesterday. Patient's weight after outpatient dialysis on 10/02 160 lbs (72.7kg), current weight 166lbs (75.8kg). Prior to starting dialysis weight was 85 to 90 kg. We will try and keep him off dialysis for now. Creatinine today is 2.35 mg/dL, acceptable. Potassium was low and improved with supplement. Does not need renal diet. Continue Lasix as maintenance to prevent volume overload due to his history of congestive heart failure (last known EF 40%). On SGLT2 inhibitor which can be continued for now. No plans for dialysis unless renal function worsens significantly, currently volume status appears near euvolemic. Patient has poor oral intake and encouraged increase solute intake. -Septic shock due to MRSA bacteremia, tunneled HD catheter removed 10/06. TTE showed no vegetation. On vancomycin. Left eye vision changes, seen by Optho with diagnosis of endophthalmitis. Wrist pain, evaluated by orthopedics and attempt left wrist aspiration 10/08 but was dry aspirate. - Awaiting transfer to [facility] Documented by User: Dr. Raulito Barahona MD 10/09/23 12:54 Objective Data Lab / Micro Data 10/09/23 03:23 10/09/23 03:23 Assessment & Plan Assessment/Plan (1) ESRD (end stage renal disease): (2) Hyponatremia: (3) Hypotension: PLAN: Plan Impression/Plan: 78-year-old man who is known to our service for history of hypervolemic CKD stage IV/V, type 2 diabetes mellitus, hypertension, CAD, HFpEF with diastolic dysfunction, moderate pulmonary hypertension, KIMBERLY, and hyperlipidemia. The patient presents to the hospital with hypotension/circulatory shock which is being investigated. Nephrology is following for dialysis management. History of CKD stage IV/V Recent acute renal failure requiring dialysis Possible ESRD - known history of CKD stage IV, had repeated admissions with fluid overload/CEE over the last 4 months. To stabilize, we have decided to do a trial of dialysis which he started September 17. Breathing and volume status overall improved. He was off oxygen, able to walk up to 50 yards without any issues. Now admitted with MRSA bacteremia, could be somewhat unusual to have bacteremia from catheter this soon. Exit site looks okay. His dialysis catheter was removed 10/06. Last dialysis was Thursday, 10/05. He is making urine, around 2L yesterday. Patient's weight after outpatient dialysis on 10/02 160 lbs (72.7kg), current weight 166lbs (75.8kg). Prior to starting dialysis weight was 85 to 90 kg. We will try and keep him off dialysis for now. Creatinine today is 2.35 mg/dL, acceptable. Potassium was low and improved with supplement. Does not need renal diet. Continue Lasix as maintenance to prevent volume overload due to his history of congestive heart failure (last known EF 40%). On SGLT2 inhibitor which can be continued for now. No plans for dialysis unless renal function worsens significantly, currently volume status appears near euvolemic. Patient has poor oral intake and encouraged increase solute intake. -Septic shock due to MRSA bacteremia, tunneled HD catheter removed 10/06. TTE showed no vegetation. On vancomycin. Left eye vision changes, seen by Optho with diagnosis of endophthalmitis. Wrist pain, evaluated by orthopedics and attempt left wrist aspiration 10/08 but was dry aspirate. - Awaiting transfer to [facility] agree with above. cr stable.
--- NOTE | 2023-10-09 12:29 | PCM.PN.ID ---
Physical Exam Narrative Vision unchanged, uncomfortable sitting in chair. No fever. Unsuccessful wrist aspiration yesterday. No fever. Const alert and no apparent distress Resp normal air movement and clear to auscultation bilaterally Cardio regular rate and regular rhythm GI soft to palpation, non-tender and non-distended Skin no rashes or lesions noted Skin Narrative: L wrist swelling and tenderness ID ID: Route of nutrition/ use of supplements: [] Nutritional Intake: [] IV Site: [] Lanier Catheter: [] Assessment & Plan Assessment/Plan (1) ESRD (end stage renal disease): (2) Septic shock: PLAN: septic shock due to MRSA bacteremia - suspect HD cath as source. TTE showed no veg. Line removed 10/06/23. Will repeat bcx. Cont vanc. Having ongoing L wrist pain and limited ROM, had ortho eval but unsuccessful aspiration. New L eye vision changes, seen by ophtho, dx with endophthalmitis, transfer planned Will follow (3) MRSA bacteremia:
--- NOTE | 2023-10-09 12:40 | RAD_ITS ---
STUDY: X-RAY - RIGHT ELBOW REASON FOR EXAM: Male, 78 years old. Right elbow pain. TECHNIQUE: 3 view(s) of the elbow. COMPARISON: None. FINDINGS: Normal visualized humerus, radius and ulna. There is degenerative arthrosis of the radiocapitellar and ulnotrochlear articulations. Diffuse soft tissue swelling. Vascular calcification. RAD/Elbow min 3 Views IMPRESSION: Diffuse soft tissue swelling. Degenerative changes of the radial capitellar and ulnar trochlear articulations. Electronically Signed: Joel Fuentes MD at 13:01 EST ,
[2023-10-09 13:30] VITALS: BP 112/62; PULSE 77; RESP 17; TEMP 36.4; O2SAT 95
--- NOTE | 2023-10-09 16:32 | PCM.PN.ORT ---
Subjective Subjective I saw the patient in the ICU today again. He reports minimal pain in the left wrist. He complains a lot of pain around the right elbow region. I explained to him that the yesterday's left wrist aspirate was dry. His right elbow pain has been constant for the last few days which goes up and down with time. He has an Virgliio wrap around the entire arm and likely skin breakdown because of his warfarin. Objective Data Objective Data Vital Signs: Vital Signs Temp Pulse Resp BP Pulse Ox O2 Del Method O2 Flow Rate 97.6 F L 77 17 112/62 95 Room Air 2 10/09/23 13:30 10/09/23 13:30 10/09/23 13:30 10/09/23 13:30 10/09/23 13:30 10/09/23 13:30 10/04/23 19:00 FiO2 30 10/05/23 20:00 Oxygen Flow Rate (L/min) 2 Oxygen Delivery Method Room Air Weight: 167 lb 1.766 oz Body Mass Index (BMI) 27.8 Intake & Output: Intake and Output for Last 24 Hours 10/07/23 10/08/23 10/09/23 23:59 23:59 23:59 Intake Total 860 / 860 540 / 540 100 / 100 Output Total 900 / 900 2024 / 2024 950 / 950 Balance -40 / -40 -1485 / -1485 -850 / -850 Medical Nutrition Assessment Dietitian: Malnutrition Criteria Met Start: 10/05/23 06:56 Freq: Status: Active Protocol: Document 10/05/23 06:56 SLA (Rec: 10/05/23 06:56 [facility] Nutrition Malnutrition Evidence of Malnutrition Exists Yes Malnutrition (severe): Acute Illness/Injury Evidenced By Suboptimal Energy Intake ( Severe),Weight Loss (Severe) Intake Problem Inadequate Oral Intake Status Inactive Problem Clinical Problem Acute Disease or Injury Related Malnutrition Etiology related to acute illness and recent initiation of HD Signs/Symptoms as evidenced by <50% of est nutritional needs x 2 wks and 11.6% wt loss x 6 wks Status Active Problem Altered Nutrient-Related Laboratory Values Etiology related to diabetes and renal dysfunction Signs/Symptoms as evidenced by gluc 193, BUN 39, Cr 2.96 Status Active Problem Recommendation Dietitian Recommendations/Changes Will change diet to Renal general w/ Consistent CHO Will order 4 oz glucerna shake 4x/day w/ medpass for increased nutrition if consumed. Lab / Micro Data 10/09/23 03:23 10/09/23 03:23 Labs: Laboratory Results - last 24 hr 10/08/23 03:38: Diff Path Review Reviewed 10/08/23 20:28: POC Glucose 256 H 10/09/23 03:23: WBC 15.1 H, RBC 3.50 L, Hgb 10.0 L, Hct 30.0 L, MCV 85.7, MCH 28.6, MCHC 33.3, RDW Std Deviation 47.5 H, RDW Coeff of Kiersten 15.4 H, Plt Count 128 L, MPV 11.7, Neut % (Auto) Not Reportable, Absolute Neuts (auto) 11.3 H, Absolute Lymphs (auto) 1.81, Total Counted 100, Neutrophils % (Manual) 71 H, Band Neutrophils % 4, Lymphocytes % (Manual) 12 L, Monocytes % (Manual) 3, Metamyelocytes % 1, Myelocytes % 6 H, Promyelocytes % 3 H, Diff Path Review Reviewed, PT 17.2 H, INR 1.4, Sodium 134 L, Potassium 3.5, Chloride 98, Carbon Dioxide 27.0, Anion Gap 9, BUN 60 H, Creatinine 2.35 H, Estim Creat Clear Calc 23.94, Est GFR (MDRD) Af Amer 35 L, Est GFR (MDRD) Non-Af 29 L, BUN/Creatinine Ratio 25.5 H, Glucose 216 H, Calcium 8.8 10/09/23 09:17: POC Glucose 207 H Micro: Microbiology 10/07/23 13:25 Blood Culture (Wb) - Left Wrist Blood Culture - Preliminary Staphylococcus aureus 10/06/23 10:40 Blood Culture (Wb) - Left Forearm Blood Culture - Final Meth. resistant Staph. aureus 10/05/23 13:17 Blood Culture (Wb) - Anticubital Right Blood Culture - Final Meth. resistant Staph. aureus 10/05/23 11:15 Blood Culture (Wb) - Port Blood Culture - Final Meth. resistant Staph. aureus 10/06/23 15:30 Other - Dialysis/Fistula Miscellaneous Culture - Final Meth. resistant Staph. aureus 10/06/23 15:30 Other - Dialysis/Fistula Gram Stain - Final 10/04/23 14:20 Blood Culture (Wb) - Left Hand Blood Culture - Final Staphylococcus aureus 10/04/23 14:30 Blood Culture (Wb) - Right Wrist Bacteria Detection (PCR) - Final Meth. resistant Staph. aureus 10/04/23 14:30 Blood Culture (Wb) - Right Wrist Blood Culture - Final Meth. resistant Staph. aureus 10/04/23 10:37 Mucosa - Nose Respiratory Panel (PCR) - Final 10/04/23 10:18 Mucosa - Nose SARS-CoV-2, Influenza & RSV (PCR) - Final Radiography Diagnostic Testing: Radiology Impression Elbow X-Ray 10/09/23 12:40 IMPRESSION: Diffuse soft tissue swelling. Degenerative changes of the radial capitellar and ulnar trochlear articulations. Electronically Signed: Joel Fuentes MD at 13:01 EST , Rhythm Strip Rhythm Strip: A-fib Rate: 74 Physical Exam Narrative Examination of the left wrist shows no increased swelling at the aspirate site. No hematoma formation. Left wrist range of motion is still just jog of movement. I asked to see if I could evaluate his right elbow. His right elbow range of motion is possible from about 30 to 50 degrees with pain at extremes. He has tenderness but no fullness in the soft spot. Forearm rotation is less painful. Distal neurovascular exam is intact. Assessment & Plan Assessment/Plan (1) Left wrist pain: (2) Right elbow pain: PLAN: Plan I explained to the patient and family that the left wrist aspirate was dry. His x-rays show arthritis with SLAC wrist. His lack of range of motion and pain could be associated with this arthritis rather than sepsis. There has been no change in the amount of swelling around the left wrist. I evaluated his right elbow because of severe pain that he has experienced. He has tenderness over the soft spot but no fullness. No obvious effusion palpable. I requested obtaining x-rays of the right elbow. These show evidence of arthritis in the right elbow. I explained to the patient and family that this is also related to arthritic pain in the elbow. Since he is bacteremic, superadded sepsis into any of the joints cannot be completely ruled out. He says that the pain and lack of range of motion has been the same over the last 4 to 5 days and has not changed with time. At this time, I do not believe aspiration or evaluation of the right elbow would yield positive results due to the presence of arthritis and lack of significant effusion. Right elbow pain may be continued to be observed. Orthopedics will sign off for now. Please reach out if there are any further questions or concerns. Charges/Coding Visit Charges Inpatient E&M: 90765 Subs Hosp L2
[2023-10-09 18:29] LABS: Bedside Glucose 183 mg/dL (74-106)
[2023-10-09 20:13] VITALS: BP 90/78; PULSE 92; RESP 18; TEMP 36.4; O2SAT 95
[2023-10-09] MEDS: Glucerna Shake 120 ML LIQUID PO (20:19)
[2023-10-09] MEDS: Acetaminophen 325 MG Tablet 650 MG PO (20:19)
[2023-10-09 20:33] LABS: Bedside Glucose 226 mg/dL (74-106)
[2023-10-09 22:15] VITALS: BP 82/52; PULSE 76; RESP 21; TEMP 36.4; O2SAT 94
[2023-10-09 23:15] VITALS: BP 88/51; PULSE 63; RESP 20; TEMP 36.4; O2SAT 93
[2023-10-10 01:00] VITALS: BP 90/49; PULSE 66; RESP 20; TEMP 36.4; O2SAT 96
[2023-10-10 03:00] VITALS: BP 99/59; PULSE 73; RESP 17; TEMP 36.4; O2SAT 94
[2023-10-10 05:22] VITALS: BMI 28.0
[2023-10-10 05:39] LABS: Hematocrit 30.1 % (40-54); Hemoglobin 9.8 g/dL (13.0-16.5); Mean Corp Hgb Conc 32.6 g/dL (32-36); Mean Corpuscular Hgb 28.3 pg (27.0-32.0); Mean Platelet Vol. 12.1 fl (6.2-12.0); POSITIVE COUNT YES; POSITIVE MORPHOLOGY YES; Platelet Count 142 K/mm3 (150-450); RBC Distribution Width CV 15.4 % (11.6-14.6); RBC Distribution Width SD 48.3 fl (35.1-43.9); Red Blood Count 3.46 M/mm3 (4.6-6.2); White Blood Count 13.6 K/mm3 (4.4-11.0)
[2023-10-10 05:42] LABS: Differential Indicated MANUAL DIFF
[2023-10-10 05:52] LABS: Anion Gap 9 (5-15); BUN 61 mg/dL (7-18); BUN/Creat Ratio 26.2 RATIO (10-20); Calcium,Total 8.8 mg/dL (8.5-10.1); Chloride 96 mmol/L (98-107); Creatinine, Serum 2.33 mg/dL (0.70-1.30); EST Glomerular Filtration Rate 29 mL/min (>60); Est Glom Filt Rate - Afr Amer 35 mL/min (>60); Estimated Creatinine Clearance 24.11 ml/min; Glucose 207 mg/dL (74-106); Potassium 3.3 mmol/L (3.5-5.1); Sodium Level 132 mmol/L (136-145)
[2023-10-10 05:53] LABS: Vancomycin, Random Level 15.2 ug/mL (0.0-15.0)
--- NOTE | 2023-10-10 06:38 | PCM.RX.CS ---
Consult Antibiotic Management Pharmacy has been consulted to manage selected antibiotic: Vancomycin Type of Intervention Type of Consult: Follow-up Labs Labs: Sodium 132 mmol/L (136-145) L 10/10/23 05:27 Potassium 3.3 mmol/L (3.5-5.1) L 10/10/23 05:27 Chloride 96 mmol/L (98-107) L 10/10/23 05:27 Carbon Dioxide 27.0 mmol/L (21.0-32.0) 10/10/23 05:27 Anion Gap 9 (5-15) 10/10/23 05:27 BUN 61 mg/dL (7-18) H 10/10/23 05:27 Creatinine 2.33 mg/dL (0.70-1.30) H 10/10/23 05:27 Est GFR (MDRD) Af Amer 35 mL/min (>60) L 10/10/23 05:27 Est GFR (MDRD) Non-Af 29 mL/min (>60) L 10/10/23 05:27 BUN/Creatinine Ratio 26.2 RATIO (10-20) H 10/10/23 05:27 Glucose 207 mg/dL (74-106) H 10/10/23 05:27 Random Vancomycin 15.2 ug/mL (0.0-15.0) H 10/10/23 05:27 Microbiology Microbiology: Microbiology 10/07/23 13:25 Blood Culture (Wb) - Left Wrist Blood Culture - Preliminary Staphylococcus aureus 10/06/23 10:40 Blood Culture (Wb) - Left Forearm Blood Culture - Final Meth. resistant Staph. aureus 10/05/23 13:17 Blood Culture (Wb) - Anticubital Right Blood Culture - Final Meth. resistant Staph. aureus 10/05/23 11:15 Blood Culture (Wb) - Port Blood Culture - Final Meth. resistant Staph. aureus 10/06/23 15:30 Other - Dialysis/Fistula Miscellaneous Culture - Final Meth. resistant Staph. aureus 10/06/23 15:30 Other - Dialysis/Fistula Gram Stain - Final 10/04/23 14:20 Blood Culture (Wb) - Left Hand Blood Culture - Final Staphylococcus aureus 10/04/23 14:30 Blood Culture (Wb) - Right Wrist Bacteria Detection (PCR) - Final Meth. resistant Staph. aureus 02/04/24 14:30 Blood Culture (Wb) - Right Wrist Blood Culture - Final Meth. resistant Staph. aureus 10/04/23 10:37 Mucosa - Nose Respiratory Panel (PCR) - Final 10/04/23 10:18 Mucosa - Nose SARS-CoV-2, Influenza & RSV (PCR) - Final Pharmacy Plan for Drug Dosing Pharmacy Plan for Drug Dosing: Pharmacy Service will continue to monitor and adjust dosing as required. RANDOM LEVEL 15.2. PER NO DIALYSIS OF YET, GIVE 500MG X1 AND FOLLOW UP RANDOM LEVEL ON 10/12 Follow-Up Labs Follow-Up Labs: Trough: Vancomycin Date/Time Labs Ordered Labs to be done on [date and time ordered]: 10/12 @ 0600 RANDOM
[2023-10-10] MEDS: Vancomycin IV 500 MG/100 ML BAG 100 MG IV (06:46)
--- NOTE | 2023-10-10 07:25 | PN.HOSP_ITS ---
Reason for Visit Reason for Visit: Diagnoses Sepsis, unspecified organism (10/04/23) Methicillin resistant Staphylococcus aureus infection as the cause of diseases classified elsewhere (10/04/23) Addisonian crisis (10/04/23) Hypo-osmolality and hyponatremia (10/04/23) Nonrheumatic mitral (valve) insufficiency (10/04/23) Other hypertrophic cardiomyopathy (10/04/23) Left bundle-branch block, unspecified (10/04/23) Longstanding persistent atrial fibrillation (10/04/23) Other persistent atrial fibrillation (10/04/23) Chronic combined systolic (congestive) and diastolic (congestive) heart failure (10/04/23) Hypotension, unspecified (10/04/23) Pain in right elbow (10/04/23) Pain in left wrist (10/04/23) End stage renal disease (10/04/23) Rash and other nonspecific skin eruption (10/04/23) Other malaise (10/04/23) Severe sepsis with septic shock (10/04/23) Bacteremia (10/04/23) Other specified abnormal findings of blood chemistry (10/04/23) FPC (current) use of anticoagulants (10/04/23) Subjective Subjective Patient seen no change in clinical condition still waiting for bed prior to transfer to the [facility] Objective Data Objective Data Vital Signs: Vital Signs Temp Pulse Resp BP Pulse Ox O2 Del Method O2 Flow Rate 97.5 F L 73 17 99/59 L 94 Room Air 2 10/10/23 03:00 10/10/23 03:00 10/10/23 03:00 10/10/23 03:00 10/10/23 03:00 10/10/23 03:00 10/04/23 19:00 FiO2 30 10/05/23 20:00 Oxygen Flow Rate (L/min) 2 Oxygen Delivery Method Room Air Weight: 76.3 kg Body Mass Index (BMI) 28.0 Intake & Output: Intake and Output for Last 24 Hours 10/08/23 10/09/23 10/10/23 23:59 23:59 23:59 Intake Total 540 / 540 500 / 500 100 / 100 Output Total 2024 / 2024 1700 / 1700 300 / 300 Balance -1485 / -1485 -1200 / -1200 -200 / -200 Medical Nutrition Assessment Dietitian: Malnutrition Criteria Met Start: 10/05/23 06:56 Freq: Status: Active Protocol: Document 10/05/23 06:56 SLA (Rec: 10/05/23 06:56 SLA Desktop) Nutrition Malnutrition Evidence of Malnutrition Exists Yes Malnutrition (severe): Acute Illness/Injury Evidenced By Suboptimal Energy Intake ( Severe),Weight Loss (Severe) Intake Problem Inadequate Oral Intake Status Inactive Problem Clinical Problem Acute Disease or Injury Related Malnutrition Etiology related to acute illness and recent initiation of HD Signs/Symptoms as evidenced by <50% of est nutritional needs x 2 wks and 11.6% wt loss x 6 wks Status Active Problem Altered Nutrient-Related Laboratory Values Etiology related to diabetes and renal dysfunction Signs/Symptoms as evidenced by gluc 193, BUN 39, Cr 2.96 Status Active Problem Recommendation Dietitian Recommendations/Changes Will change diet to Renal general w/ Consistent CHO Will order 4 oz glucerna shake 4x/day w/ medpass for increased nutrition if consumed. Lab / Micro Data 10/10/23 05:27 10/10/23 05:27 Labs: Laboratory Results - last 24 hr 10/09/23 03:23: Diff Path Review Reviewed 10/09/23 09:17: POC Glucose 207 H 10/09/23 18:11: POC Glucose 183 H 10/09/23 20:12: POC Glucose 226 H 10/10/23 05:27: WBC 13.6 H, RBC 3.46 L, Hgb 9.8 L, Hct 30.1 L, MCV 87.0, MCH 28.3, MCHC 32.6, RDW Std Deviation 48.3 H, RDW Coeff of Kiersten 15.4 H, Plt Count 142 L, MPV 12.1 H, Neut % (Auto) Not Reportable, Sodium 132 L, Potassium 3.3 L, Chloride 96 L, Carbon Dioxide 27.0, Anion Gap 9, BUN 61 H, Creatinine 2.33 H, Estim Creat Clear Calc 24.11, Est GFR (MDRD) Af Amer 35 L, Est GFR (MDRD) Non-Af 29 L, BUN/Creatinine Ratio 26.2 H, Glucose 207 H, Calcium 8.8, Random Vancomycin 15.2 H Micro: Microbiology 10/09/23 13:10 Blood Culture (Wb) - Anticubital Left Blood Culture - Preliminary 10/07/23 13:25 Blood Culture (Wb) - Left Wrist Blood Culture - Preliminary Staphylococcus aureus 10/06/23 10:40 Blood Culture (Wb) - Left Forearm Blood Culture - Final Meth. resistant Staph. aureus 10/05/23 13:17 Blood Culture (Wb) - Anticubital Right Blood Culture - Final Meth. resistant Staph. aureus 10/05/23 11:15 Blood Culture (Wb) - Port Blood Culture - Final Meth. resistant Staph. aureus 10/06/23 15:30 Other - Dialysis/Fistula Miscellaneous Culture - Final Meth. resistant Staph. aureus 10/06/23 15:30 Other - Dialysis/Fistula Gram Stain - Final 10/04/23 14:20 Blood Culture (Wb) - Left Hand Blood Culture - Final Staphylococcus aureus 10/04/23 14:30 Blood Culture (Wb) - Right Wrist Bacteria Detection (PCR) - Final Meth. resistant Staph. aureus 10/04/23 14:30 Blood Culture (Wb) - Right Wrist Blood Culture - Final Meth. resistant Staph. aureus 10/04/23 10:37 Mucosa - Nose Respiratory Panel (PCR) - Final 10/04/23 10:18 Mucosa - Nose SARS-CoV-2, Influenza & RSV (PCR) - Final Radiography Diagnostic Testing: Radiology Impression Elbow X-Ray 10/09/23 12:40 IMPRESSION: Diffuse soft tissue swelling. Degenerative changes of the radial capitellar and ulnar trochlear articulations. Electronically Signed: Joel Fuentes MD at 13:01 EST Reading Location ID and State: [address] [place] [address] , Service support , Rhythm Strip Rhythm Strip: A-fib Rate: 74 Physical Exam Narrative GENERAL: cooperative HEENT: Atraumatic; normocephalic EYES; Anicteric, Normal Conjunctiva NECK; supple, normal thyroid, RESPIRATORY: Diminished to auscultation CARDIOVASCULAR: Irregular S1-S2 GI: soft, normoactive bowel sounds, : No Renal angle tenderness; EXTREMITIES: No edema, no clubbing, MUSCULOSKELETAL: no muscle wasting NEURO: Awake; no lateralizing signs. SKIN: No Rash PSYCH; Flat affect Assessment & Plan Assessment/Plan (1) ESRD (end stage renal disease): (2) Septic shock: (3) MRSA bacteremia: PLAN: Plan Patient is an 78-year-old gentleman admitted with progressive generalized weakness with chills. Patient was found to have significant hypotension admitted to the intensive care unit for subsequent management. Infectious workup has so far remained negative to date. 1. Septic shock secondary to MRSA bacteremia ? Suspected to be secondary to combination of septic shock of undetermined etiology as well as possible adrenal crisis. Patient admitted to the intensive care unit managed with IV fluids stress dose of steroid as well as broad- spectrum antibiotic therapy after cultures have been obtained. ? 10/06/2023 patient cultures came back positive for MRSA, Case subsequently discussed with ID plan is for patient tunneled dialysis catheter to be removed. Patient Levophed has been weaned off. ? 10/20/2023; transfer to the [facility] still pending 2. Elevated troponin ? Patient troponins continue to rise. Myocardial injury versus acute coronary syndrome. 2D echo ordered consult placed to cardiology 3. Essential hypertension ? Patient antihypertensives held on admission 4. Chronic congestive heart failure ? Currently euvolemic echo from 03/05/2023 demonstrated EF of 53% 5. End-stage renal disease ? Patient is on hemodialysis, consult placed to nephrology for dialysis orders ? 10/06/2023 given patient MRSA bacteremia plan is for patient tunneled dialysis catheter to be removed 6. Paroxysmal A-fib ? Rate controlled on systemic anticoagulation with warfarin with elevated INR currently being held ? 10/06/2023; patient to receive vitamin K to correct his coagulopathy prior to removal of the tunneled dialysis catheter 7. 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 Status post cardioMEMs device placement ? In February 2021 9. Diabetes mellitus type II -patient's oral hypoglycemics held. Placed on long acting insulin, Accu-Cheks a.c. and at bedtime and covered with sliding scale insulin 10. BPH with lower urinary obstructive symptoms - Patient treated with finasteride 11. DVT prophylaxis ? Patient is on Coumadin 12. Acute decreased vision in the left eye ? Suspicious for CRAO/BRAO; Stroke alert was called patient was however deemed not a candidate for thrombolytics.No large vessel occlusions. Prominent intracranial calcific atherosclerosis and up to 50% stenosis of both cavernous carotid arteries. Bilateral ICA plaque with mild grade stenosis of the right ICA and moderate grade stenosis of the left ICA.. Consult placed to ophthalmology ? Patient was seen in consultation by Dr. Saini with ophthalmology. After his evaluation his assessment was that patient had left eye endogenous endophthalmitis. He subsequently amended for patient to be transferred to a tertiary care center specifically [facility]. Call was placed patient was accepted for transfer ? 10/09/2023 transfer to senior living facility still pending 13. Hypokalemia -Corrected per protocol Time spent in the patient's overall evaluation,decision-making process, review of diagnostic data, adjustment of management, discussion with other providers, nursing nursing and ancillary staff involved in patient's care documentation, 35 Minutes CODE STATUS; DNR Comfort Care arrest no intubation. Charges/Coding Visit Charges Inpatient E&M: 01117 Subs Hosp L2
[2023-10-10] MEDS: Insulin Lispro 100 UNIT/ML INSULN.PEN SC ×3 (07:57→17:58)
[2023-10-10] MEDS: Insulin Lispro 100 UNIT/ML INSULN.PEN 8 UNIT SC ×2 (07:58→17:58)
[2023-10-10 08:00] VITALS: BP 112/69; PULSE 91; RESP 16; TEMP 36.4; O2SAT 96
[2023-10-10] MEDS: Allopurinol 100 MG Tablet 200 MG PO (08:01)
[2023-10-10] MEDS: Carvedilol 6.25 MG Tablet PO ×2 (08:01→18:01)
[2023-10-10] MEDS: Insulin Glargine-YFGN 100 UNIT/ML Pen 20 UNIT SC (08:02)
[2023-10-10 08:07] LABS: Metamyelocyte 3 % (0-1); Neutrophil-Segmented 81 % (47-70); Total Cells Counted 100 (MANUAL DIFF)
[2023-10-10 08:08] LABS: Lymphocyte 9 % (19-41); Monocyte 3 % (0-10); Myelocyte 4 % (0-0); Platelet Estimate ADEQUATE (ADEQ); Red Cell Morphology NORM C+C NORMAL (NORM C&C)
[2023-10-10 08:09] LABS: Absolute Lymphocyte Count 1.22 X10^3/uL (0.83-4.51)
[2023-10-10] MEDS: oxyCODONE 5 MG Tablet PO ×2 (08:11→20:40)
[2023-10-10 08:14] LABS: Bedside Glucose 232 mg/dL (74-106)
[2023-10-10] MEDS: Potassium Chloride Oral Tablet 20 MEQ 40 MEQ PO ×2 (08:47→08:48)
[2023-10-10] MEDS: Pantoprazole Sodium 40 MG Tablet PO (08:48)
[2023-10-10] MEDS: Furosemide 80 MG Tablet PO (08:48)
[2023-10-10] MEDS: Finasteride 5 MG Tablet PO (08:49)
[2023-10-10] MEDS: Empagliflozin 25 MG Tablet PO (08:49)
[2023-10-10] MEDS: Enoxaparin 80 MG/0.8 ML Syringe SC (08:49)
[2023-10-10] MEDS: Glucerna Shake 120 ML LIQUID PO ×2 (08:52→18:07)
--- NOTE | 2023-10-10 09:12 | PCM.PN.SRG ---
Subjective Subjective Patient seen and examined during AM rounds. He is found sitting in bed eating breakfast. He becomes tearful at various points in our conversation. He suggest that he has not been informed of any updates as to possible transfer to [facility]. He denies any improvements in his left eye visual acuity. He expresses frustration that he is not able to use his right arm to eat his breakfast. As I do part he states that he was convinced he was not going to make it through the early part of his current admission and sometimes wishes that he had not Objective Data Objective Data Vital Signs: Vital Signs Temp Pulse Resp BP Pulse Ox O2 Del Method O2 Flow Rate 97.5 F L 73 17 99/59 L 94 Room Air 2 10/10/23 03:00 10/10/23 03:00 10/10/23 03:00 10/10/23 03:00 10/10/23 03:00 10/10/23 08:24 10/04/23 19:00 FiO2 30 10/05/23 20:00 Oxygen Flow Rate (L/min) 2 Oxygen Delivery Method Room Air Weight: 168 lb 3.403 oz Body Mass Index (BMI) 28.0 Intake & Output: Intake and Output for Last 24 Hours 10/08/23 10/09/23 10/10/23 23:59 23:59 23:59 Intake Total 540 / 540 500 / 500 200 / 200 Output Total 2024 / 2024 1700 / 1700 300 / 300 Balance -1485 / -1485 -1200 / -1200 -100 / -100 Medical Nutrition Assessment Dietitian: Malnutrition Criteria Met Start: 10/05/23 06:56 Freq: Status: Active Protocol: Document 10/05/23 06:56 KALLI (Rec: 10/05/23 06:56 KALLI Desktop) Nutrition Malnutrition Evidence of Malnutrition Exists Yes Malnutrition (severe): Acute Illness/Injury Evidenced By Suboptimal Energy Intake ( Severe),Weight Loss (Severe) Intake Problem Inadequate Oral Intake Status Inactive Problem Clinical Problem Acute Disease or Injury Related Malnutrition Etiology related to acute illness and recent initiation of HD Signs/Symptoms as evidenced by <50% of est nutritional needs x 2 wks and 11.6% wt loss x 6 wks Status Active Problem Altered Nutrient-Related Laboratory Values Etiology related to diabetes and renal dysfunction Signs/Symptoms as evidenced by gluc 193, BUN 39, Cr 2.96 Status Active Problem Recommendation Dietitian Recommendations/Changes Will change diet to Renal general w/ Consistent CHO Will order 4 oz glucerna shake 4x/day w/ medpass for increased nutrition if consumed. Lab / Micro Data 10/10/23 05:27 10/10/23 05:27 Labs: Laboratory Results - last 24 hr 10/09/23 03:23: Diff Path Review Reviewed 10/09/23 09:17: POC Glucose 207 H 10/09/23 18:11: POC Glucose 183 H 10/09/23 20:12: POC Glucose 226 H 10/10/23 05:27: WBC 13.6 H, RBC 3.46 L, Hgb 9.8 L, Hct 30.1 L, MCV 87.0, MCH 28.3, MCHC 32.6, RDW Std Deviation 48.3 H, RDW Coeff of Kiersten 15.4 H, Plt Count 142 L, MPV 12.1 H, Neut % (Auto) Not Reportable, Absolute Neuts (auto) 11.0 H, Absolute Lymphs (auto) 1.22, Total Counted 100, Neutrophils % (Manual) 81 H, Lymphocytes % (Manual) 9 L, Monocytes % (Manual) 3, Metamyelocytes % 3 H, Myelocytes % 4 H, Diff Path Review May foll, Platelet Estimate ADEQUATE, RBC Morphology NORM C+C, Sodium 132 L, Potassium 3.3 L, Chloride 96 L, Carbon Dioxide 27.0, Anion Gap 9, BUN 61 H, Creatinine 2.33 H, Estim Creat Clear Calc 24.11, Est GFR (MDRD) Af Amer 35 L, Est GFR (MDRD) Non-Af 29 L, BUN/Creatinine Ratio 26.2 H, Glucose 207 H, Calcium 8.8, Random Vancomycin 15.2 H 10/10/23 07:56: POC Glucose 232 H Micro: Microbiology 10/07/23 13:25 Blood Culture (Wb) - Left Wrist Blood Culture - Final Meth. resistant Staph. aureus 10/09/23 13:10 Blood Culture (Wb) - Anticubital Left Blood Culture - Preliminary 10/06/23 10:40 Blood Culture (Wb) - Left Forearm Blood Culture - Final Meth. resistant Staph. aureus 10/05/23 13:17 Blood Culture (Wb) - Anticubital Right Blood Culture - Final Meth. resistant Staph. aureus 10/05/23 11:15 Blood Culture (Wb) - Port Blood Culture - Final Meth. resistant Staph. aureus 10/06/23 15:30 Other - Dialysis/Fistula Miscellaneous Culture - Final Meth. resistant Staph. aureus 10/06/23 15:30 Other - Dialysis/Fistula Gram Stain - Final 10/04/23 14:20 Blood Culture (Wb) - Left Hand Blood Culture - Final Staphylococcus aureus 10/04/23 14:30 Blood Culture (Wb) - Right Wrist Bacteria Detection (PCR) - Final Meth. resistant Staph. aureus 10/04/23 14:30 Blood Culture (Wb) - Right Wrist Blood Culture - Final Meth. resistant Staph. aureus 10/04/23 10:37 Mucosa - Nose Respiratory Panel (PCR) - Final 10/04/23 10:18 Mucosa - Nose SARS-CoV-2, Influenza & RSV (PCR) - Final Radiography Diagnostic Testing: Radiology Impression Elbow X-Ray 10/09/23 12:40 IMPRESSION: Diffuse soft tissue swelling. Degenerative changes of the radial capitellar and ulnar trochlear articulations. Electronically Signed: Joel Fuentes MD at 13:01 EST , Rhythm Strip Rhythm Strip: A-fib Rate: 74 Physical Exam Const oriented x3 Constitutional Narrative: Appears in some distress from being overwhelmed mentally Chest Chest Narrative: Exit site from tunneling of prior right IJ hemodialysis catheter covered with initial dressing after catheter removal. There is crusted drainage on this bandage. When this bandage is removed the site remains open and draining of slight purulent character fluid. There is slight tenderness about this site still. Resp normal respiratory effort Assessment & Plan Assessment/Plan (1) MRSA bacteremia: PLAN: Tunneled dialysis catheter was removed on Thursday. Patient's dressing is taken down and the site is still draining with some persistent tenderness. Recommend changing this dressing daily and as it becomes saturated. Patient's laboratories and daily weights reviewed. He overall appears stable and I do not see any clear indication suggesting a imminent need for hemodialysis, but ultimately defer to nephrology's ongoing assessments. Patient is tearful today about his prolonged illness and I have tried to reframe his thinking and share the positive news that his CBC demonstrates some improvements. Patient is awaiting transfer to [place] for ophthalmology evaluation but there is apparently no update as to when he may be transferred. ? Continue wound care as instructed above ? Continue daily weights ? Continue close monitoring of urine output ? Continue daily BMP Ellis Grissom MD General Surgery Endocrine Surgery Pager: [facility] [address] [place] [address], [facility], [address] [place] [id number] Office: [phone] Charges/Coding Visit Charges Inpatient E&M: 34598 Subs Hosp L2
[2023-10-10 09:25] VITALS: O2SAT 97
[2023-10-10 12:48] LABS: Bedside Glucose 179 mg/dL (74-106)
[2023-10-10 14:00] VITALS: BP 126/79; PULSE 101; RESP 20; TEMP 36.7; O2SAT 97
[2023-10-10 18:27] LABS: Bedside Glucose 165 mg/dL (74-106)
[2023-10-10 18:44] LABS: Prothrombin Time (Protime)PT. 23.3 SECONDS (11.7-14.9)
[2023-10-10 20:00] VITALS: BP 104/69; PULSE 85; RESP 23; TEMP 36.8; O2SAT 95
--- NOTE | 2023-10-10 20:15 | NURSING ---
Discussed w/pt's son medication available for pain control; per son, pt has given up on life because he's in so much pain. Pt's son asking if a SW is available right now to help expedite transfer to [facility], explained to son that SW may not be available at this hour and that this RN is unsure of their weekend coverage for the hospital, but I'm willing to find out. This RN asked family to please consider pt's wishes if he truly does not want to pursue further medical treatment, son responded with I will, I will. If it's not something that I can force him to be motivated about, moving more I mean. I think it's just because he's stuck in the bed. Family informed that pt has been refusing PT and is progressing to a very heavy 2 assist to the chair. We, as hospital staff, cannot force him to participate in therapy, only strongly encourage it. Assessed pt, found him to have c/o pain all over, it's just so bad. Pt provided emotional support and this RN inquired about his wanting to just give up statement. Pt replies, I'm in so much pain, I can't move around like I want. There's a better place than this, take me [facility]. Pt became tearful. Asked pt if his pain were under control, would he have these same feelings of despair? Pt responded, I don't know. This RN cont to give emotional support and informs pt that he may have pain medication every 4hours; and to please allow staff to give a couple doses of pain meds before giving completely up on life. Pt agrees and states appreciation for the information and level of care demonstrated.
[2023-10-10] MEDS: Acetaminophen 325 MG Tablet 650 MG PO (20:39)
[2023-10-11] MEDS: oxyCODONE 5 MG Tablet PO ×4 (00:18→15:01)
--- NOTE | 2023-10-11 00:20 | NURSING ---
This RN at bedside to assess pain, pt is still tearful in regards to pain. PRN OxyIR 5mg given. Pt then states, Give me ice. I said, excuse me? Pt replied, I said ice, I want ice. Pt reminded that I understand he's hurting but it's not acceptable to be rude toward staff. Pt informed that kindness goes a long way and that he shouldn't create a situation where people in his surroundings don't want to care for him d/t his rudeness. Pt apologized and stated that he didn't realize that he was being rude and promised to use please and thank you as much as possible to everybody.
[2023-10-11 00:34] VITALS: BP 107/74; PULSE 77; RESP 18; TEMP 36.7; O2SAT 96
[2023-10-11] MEDS: Acetaminophen 325 MG Tablet 650 MG PO ×2 (04:42→12:07)
[2023-10-11 05:00] VITALS: BP 99/73; PULSE 88; RESP 18; TEMP 36.8; O2SAT 97
[2023-10-11 05:16] LABS: Absolute Lymphocyte Count 1.21 X10^3/uL (0.83-4.51); Absolute Neutrophil Count 12.1 X10^3/uL (2.0-7.7); Basophil# 0.11 X10^3/uL; Basophil% 0.7 % (0-1); Eosinophil# 0.03 X10^3/uL; Eosinophils% 0.2 % (0-5); Hematocrit 30.4 % (40-54); Hemoglobin 9.8 g/dL (13.0-16.5); Lymphocyte # 1.21 X10^3/ul (0.83-4.51); Lymphocyte % 7.8 % (19-41); Mean Corp Hgb Conc 32.2 g/dL (32-36); Mean Corpuscular Hgb 28.4 pg (27.0-32.0); Mean Corpuscular Volume 88.1 fL (80-94); Mean Platelet Vol. 11.7 fl (6.2-12.0); Monocyte# 0.79 X10^3/uL; Monocyte% 5.1 % (0-10); NRBC Flagged by Analyzer 0.1 % (0-5); Neutrophil # 12.12 X10^3/uL (2.7-7.7); Neutrophil % 77.7 % (47-70); POSITIVE COUNT YES; POSITIVE MORPHOLOGY YES; Platelet Count 158 K/mm3 (150-450); RBC Distribution Width CV 15.7 % (11.6-14.6); RBC Distribution Width SD 49.2 fl (35.1-43.9); Red Blood Count 3.45 M/mm3 (4.6-6.2); White Blood Count 15.6 K/mm3 (4.4-11.0)
[2023-10-11 05:23] VITALS: BMI 27.4
--- NOTE | 2023-10-11 05:23 | NURSING ---
This RN went into pt's room for AM lab draws and to check on his pain level; pt was wakened easily and replied, I actually did some thinking about what you said and worked on my attitude about things and I'm not nearly in as much pain. Thank you for setting me straight. Pt encouraged to take Tylenol and OxyIR to keep pain at bay and to try to keep his spirits up for the day. Pt accepted and stated thanks again.
[2023-10-11 05:25] LABS: Prothrombin Time (Protime)PT. 22.4 SECONDS (11.7-14.9)
[2023-10-11 05:28] LABS: Differential Indicated SCAN CRITERIA MET
[2023-10-11 05:42] LABS: Anion Gap 9 (5-15); BUN 59 mg/dL (7-18); Calcium,Total 9.2 mg/dL (8.5-10.1); Chloride 97 mmol/L (98-107); Creatinine, Serum 2.36 mg/dL (0.70-1.30); EST Glomerular Filtration Rate 28 mL/min (>60); Est Glom Filt Rate - Afr Amer 34 mL/min (>60); Estimated Creatinine Clearance 23.58 ml/min; Glucose 159 mg/dL (74-106); Potassium 3.8 mmol/L (3.5-5.1); Sodium Level 133 mmol/L (136-145)
[2023-10-11 07:03] LABS: Differential Comment SCANNED
--- NOTE | 2023-10-11 07:15 | PN.HOSP_ITS ---
Reason for Visit Reason for Visit: Diagnoses Sepsis, unspecified organism (10/04/23) Methicillin resistant Staphylococcus aureus infection as the cause of diseases classified elsewhere (10/04/23) Addisonian crisis (10/04/23) Hypo-osmolality and hyponatremia (10/04/23) Nonrheumatic mitral (valve) insufficiency (10/04/23) Other hypertrophic cardiomyopathy (10/04/23) Left bundle-branch block, unspecified (10/04/23) Longstanding persistent atrial fibrillation (10/04/23) Other persistent atrial fibrillation (10/04/23) Chronic combined systolic (congestive) and diastolic (congestive) heart failure (10/04/23) Hypotension, unspecified (10/04/23) Pain in right elbow (10/04/23) Pain in left wrist (10/04/23) End stage renal disease (10/04/23) Rash and other nonspecific skin eruption (10/04/23) Other malaise (10/04/23) Severe sepsis with septic shock (10/04/23) Bacteremia (10/04/23) Other specified abnormal findings of blood chemistry (10/04/23) [facility] (current) use of anticoagulants (10/04/23) Subjective Subjective Patient seen admitted some improvement involving the vision in his left eye. He is able to count fingers. Transfer to [facility] still pending Objective Data Objective Data Vital Signs: Vital Signs Temp Pulse Resp BP Pulse Ox O2 Del Method O2 Flow Rate 98.3 F 88 18 99/73 97 Room Air 2 10/11/23 05:00 10/11/23 05:00 10/11/23 05:00 10/11/23 05:00 10/11/23 05:00 10/11/23 05:00 10/04/23 19:00 FiO2 30 10/05/23 20:00 Oxygen Flow Rate (L/min) 2 Oxygen Delivery Method Room Air Weight: 74.7 kg Body Mass Index (BMI) 27.4 Intake & Output: Intake and Output for Last 24 Hours 10/09/23 10/10/23 10/11/23 23:59 23:59 23:59 Intake Total 500 / 500 350 / 350 100 / 100 Output Total 1700 / 1700 1999 / 1999 450 / 450 Balance -1200 / -1200 -1650 / -1650 -350 / -350 Medical Nutrition Assessment Dietitian: Malnutrition Criteria Met Start: 10/05/23 06:56 Freq: Status: Active Protocol: Document 10/05/23 06:56 SLA (Rec: 10/05/23 06:56 SLA Desktop) Nutrition Malnutrition Evidence of Malnutrition Exists Yes Malnutrition (severe): Acute Illness/Injury Evidenced By Suboptimal Energy Intake ( Severe),Weight Loss (Severe) Intake Problem Inadequate Oral Intake Status Inactive Problem Clinical Problem Acute Disease or Injury Related Malnutrition Etiology related to acute illness and recent initiation of HD Signs/Symptoms as evidenced by <50% of est nutritional needs x 2 wks and 11.6% wt loss x 6 wks Status Active Problem Altered Nutrient-Related Laboratory Values Etiology related to diabetes and renal dysfunction Signs/Symptoms as evidenced by gluc 193, BUN 39, Cr 2.96 Status Active Problem Recommendation Dietitian Recommendations/Changes Will change diet to Renal general w/ Consistent CHO Will order 4 oz glucerna shake 4x/day w/ medpass for increased nutrition if consumed. Lab / Micro Data 10/11/23 05:00 10/11/23 05:00 Labs: Laboratory Results - last 24 hr 10/10/23 05:27: Absolute Neuts (auto) 11.0 H, Absolute Lymphs (auto) 1.22, Total Counted 100, Neutrophils % (Manual) 81 H, Lymphocytes % (Manual) 9 L, Monocytes % (Manual) 3, Metamyelocytes % 3 H, Myelocytes % 4 H, Diff Path Review December, Platelet Estimate ADEQUATE, RBC Morphology NORM C+C 10/10/23 07:56: POC Glucose 232 H 10/10/23 12:30: POC Glucose 179 H 10/10/23 17:56: POC Glucose 165 H 10/10/23 18:20: PT 23.3 H, INR 2.0 10/11/23 05:00: WBC 15.6 H, RBC 3.45 L, Hgb 9.8 L, Hct 30.4 L, MCV 88.1, MCH 28.4, MCHC 32.2, RDW Std Deviation 49.2 H, RDW Coeff of Kiersten 15.7 H, Plt Count 158, MPV 11.7, Immature Gran % (Auto) 8.500 H, Neut % (Auto) 77.7 H, Lymph % (Auto) 7.8 L, Bee % (Auto) 5.1, Eos % (Auto) 0.2, Baso % (Auto) 0.7, Absolute Neuts (auto) 12.1 H, Absolute Lymphs (auto) 1.21, Nucleated RBC % 0.1, Differential Comment SCANNED, Diff Path Review December, PT 22.4 H, INR 2.0, Sodium 133 L, Potassium 3.8, Chloride 97 L, Carbon Dioxide 27.0, Anion Gap 9, BUN 59 H, Creatinine 2.36 H, Estim Creat Clear Calc 23.58, Est GFR (MDRD) Af Amer 34 L, Est GFR (MDRD) Non-Af 28 L, BUN/Creatinine Ratio 25.0 H, Glucose 159 H, Calcium 9.2 Micro: Microbiology 10/10/23 05:27 Blood Culture (Wb) - Anticubital Left Blood Culture - Preliminary 10/07/23 13:25 Blood Culture (Wb) - Left Wrist Blood Culture - Final Meth. resistant Staph. aureus 10/09/23 13:10 Blood Culture (Wb) - Anticubital Left Blood Culture - Pr eliminary 10/06/23 10:40 Blood Culture (Wb) - Left Forearm Blood Culture - Final Meth. resistant Staph. aureus 10/05/23 13:17 Blood Culture (Wb) - Anticubital Right Blood Culture - Final Meth. resistant Staph. aureus 10/05/23 11:15 Blood Culture (Wb) - Port Blood Culture - Final Meth. resistant Staph. aureus 10/06/23 15:30 Other - Dialysis/Fistula Miscellaneous Culture - Final Meth. resistant Staph. aureus 10/06/23 15:30 Other - Dialysis/Fistula Gram Stain - Final 10/04/23 14:20 Blood Culture (Wb) - Left Hand Blood Culture - Final Staphylococcus aureus 10/04/23 14:30 Blood Culture (Wb) - Right Wrist Bacteria Detection (PCR) - Final Meth. resistant Staph. aureus 10/04/23 14:30 Blood Culture (Wb) - Right Wrist Blood Culture - Final Meth. resistant Staph. aureus 10/04/23 10:37 Mucosa - Nose Respiratory Panel (PCR) - Final 10/04/23 10:18 Mucosa - Nose SARS-CoV-2, Influenza & RSV (PCR) - Final Rhythm Strip Rhythm Strip: A-fib Rate: 74 Physical Exam Narrative GENERAL: cooperative HEENT: Atraumatic; normocephalic EYES; Anicteric, Normal Conjunctiva NECK; supple, normal thyroid, RESPIRATORY: Diminished to auscultation CARDIOVASCULAR: Irregular S1-S2 GI: soft, normoactive bowel sounds, : No Renal angle tenderness; EXTREMITIES: No edema, no clubbing, MUSCULOSKELETAL: no muscle wasting NEURO: Awake; no lateralizing signs. SKIN: No Rash PSYCH; Flat affect Const Constitutional Narrative: Awake. Listless. Appears very tired and nonverbal but does communicate by nodding or shaking his head. Afebrile. Neck no lymphadenopathy Neck Narrative: No thyromegaly Resp normal respiratory effort, no retractions and no use of accessory muscles Cardio regular rate, regular rhythm, S1 normal heart sound and S2 normal heart sound GI normal to inspection, nondistended, normoactive bowel sounds, soft to palpation, non-tender and non-distended Extremity normal to inspection Skin Skin Narrative: No rash. Does have ecchymosis around his dialysis port right upper chest. Old bruising on his right upper extremity. Neuro moves all extremities Sensorium / Orientation: awake Assessment & Plan Assessment/Plan (1) ESRD (end stage renal disease): (2) Septic shock: (3) MRSA bacteremia: PLAN: Plan Patient is an 78-year-old gentleman admitted with progressive generalized weakness with chills. Patient was found to have significant hypotension admitted to the intensive care unit for subsequent management. Infectious workup has so far remained negative to date. 1. Septic shock secondary to MRSA bacteremia ? Suspected to be secondary to combination of septic shock of undetermined etiology as well as possible adrenal crisis. Patient admitted to the intensive care unit managed with IV fluids stress dose of steroid as well as broad- spectrum antibiotic therapy after cultures have been obtained. ? 10/06/2023 patient cultures came back positive for MRSA, Case subsequently discussed with ID plan is for patient tunneled dialysis catheter to be removed. Patient Levophed has been weaned off. ?10/07/2023 tunneled catheter removed ? 10/10/2023; transfer to the [facility] still pending 2. Elevated troponin ? Patient troponins continue to rise. Myocardial injury versus acute coronary syndrome. 2D echo ordered consult placed to cardiology 3. Essential hypertension ? Patient antihypertensives held on admission 4. Chronic congestive heart failure ? Currently euvolemic echo from 03/05/2023 demonstrated EF of 53% 5. End-stage renal disease ? Patient is on hemodialysis, consult placed to nephrology for dialysis orders ? 10/06/2023 given patient MRSA bacteremia plan is for patient tunneled dialysis catheter to be removed 6. Paroxysmal A-fib ? Rate controlled on systemic anticoagulation with warfarin with elevated INR currently being held ? 10/06/2023; patient to receive vitamin K to correct his coagulopathy prior to removal of the tunneled dialysis catheter 7. 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 Status post cardioMEMs device placement ? In February 2021 9. Diabetes mellitus type II -patient's oral hypoglycemics held. Placed on long acting insulin, Accu-Cheks a.c. and at bedtime and covered with sliding scale insulin 10. BPH with lower urinary obstructive symptoms - Patient treated with finasteride 11. DVT prophylaxis ? Patient is on Coumadin 12. Acute decreased vision in the left eye ? Suspicious for CRAO/BRAO; Stroke alert was called patient was however deemed not a candidate for thrombolytics.No large vessel occlusions. Prominent intracr anial calcific atherosclerosis and up to 50% stenosis of both cavernous carotid arteries. Bilateral ICA plaque with mild grade stenosis of the right ICA and moderate grade stenosis of the left ICA.. Consult placed to ophthalmology ? Patient was seen in consultation by Dr. Saini with ophthalmology. After his evaluation his assessment was that patient had left eye endogenous endophthalmitis. He subsequently amended for patient to be transferred to a tertiary care center specifically [facility]. Call was placed patient was accepted for transfer ? 10/09/2023 transfer to [facility] still pending ? 10/11/2023;Patient seen admitted some improvement involving the vision in his left eye. He is able to count fingers. Transfer to [facility] still pending 13. Hypokalemia -Corrected per protocol Time spent in the patient's overall evaluation,decision-making process, review of diagnostic data, adjustment of management, discussion with other providers, nursing nursing and ancillary staff involved in patient's care documentation, 35 Minutes CODE STATUS; DNR Comfort Care arrest no intubation. Charges/Coding Visit Charges Inpatient E&M: 38976 Subs Hosp L2
--- NOTE | 2023-10-11 08:05 | PCM.PN.SRG ---
Subjective Subjective Patient seen and examined during AM rounds he is found sitting up in bed. His son is at bedside. Together they state that there seems to be some improvement in vision from the left eye. Nursing confirms that patient's urine output has been adequate overnight. Objective Data Objective Data Vital Signs: Vital Signs Temp Pulse Resp BP Pulse Ox O2 Del Method O2 Flow Rate 98.3 F 88 18 99/73 97 Room Air 2 10/11/23 05:00 10/11/23 05:00 10/11/23 05:00 10/11/23 05:00 10/11/23 05:00 10/11/23 05:00 10/04/23 19:00 FiO2 30 10/05/23 20:00 Oxygen Flow Rate (L/min) 2 Oxygen Delivery Method Room Air Weight: 164 lb 10.965 oz Body Mass Index (BMI) 27.4 Intake & Output: Intake and Output for Last 24 Hours 10/09/23 10/10/23 10/11/23 23:59 23:59 23:59 Intake Total 500 / 500 350 / 350 100 / 100 Output Total 1700 / 1700 2000 / 1999 450 / 450 Balance -1200 / -1200 -1650 / -1650 -350 / -350 Medical Nutrition Assessment Dietitian: Malnutrition Criteria Met Start: 10/05/23 06:56 Freq: Status: Active Protocol: Document 10/05/23 06:56 SLA (Rec: 10/05/23 06:56 SLA Desktop) Nutrition Malnutrition Evidence of Malnutrition Exists Yes Malnutrition (severe): Acute Illness/Injury Evidenced By Suboptimal Energy Intake ( Severe),Weight Loss (Severe) Intake Problem Inadequate Oral Intake Status Inactive Problem Clinical Problem Acute Disease or Injury Related Malnutrition Etiology related to acute illness and recent initiation of HD Signs/Symptoms as evidenced by <50% of est nutritional needs x 2 wks and 11.6% wt loss x 6 wks Status Active Problem Altered Nutrient-Related Laboratory Values Etiology related to diabetes and renal dysfunction Signs/Symptoms as evidenced by gluc 193, BUN 39, Cr 2.96 Status Active Problem Recommendation Dietitian Recommendations/Changes Will change diet to Renal general w/ Consistent CHO Will order 4 oz glucerna shake 4x/day w/ medpass for increased nutrition if consumed. Lab / Micro Data 10/11/23 05:00 10/11/23 05:00 Labs: Laboratory Results - last 24 hr 10/10/23 05:27: Absolute Neuts (auto) 11.0 H, Absolute Lymphs (auto) 1.22, Total Counted 100, Neutrophils % (Manual) 81 H, Lymphocytes % (Manual) 9 L, Monocytes % (Manual) 3, Metamyelocytes % 3 H, Myelocytes % 4 H, Diff Path Review December anna, Platelet Estimate ADEQUATE, RBC Morphology NORM C+C 10/10/23 07:56: POC Glucose 232 H 10/10/23 12:30: POC Glucose 179 H 10/10/23 17:56: POC Glucose 165 H 10/10/23 18:20: PT 23.3 H, INR 2.0 10/11/23 05:00: WBC 15.6 H, RBC 3.45 L, Hgb 9.8 L, Hct 30.4 L, MCV 88.1, MCH 28.4, MCHC 32.2, RDW Std Deviation 49.2 H, RDW Coeff of Kiersten 15.7 H, Plt Count 158, MPV 11.7, Immature Gran % (Auto) 8.500 H, Neut % (Auto) 77.7 H, Lymph % (Auto) 7.8 L, [place] % (Auto) 5.1, Eos % (Auto) 0.2, Baso % (Auto) 0.7, Absolute Neuts (auto) 12.1 H, Absolute Lymphs (auto) 1.21, Nucleated RBC % 0.1, Differential Comment SCANNED, Diff Path Review December anna, PT 22.4 H, INR 2.0, Sodium 133 L, Potassium 3.8, Chloride 97 L, Carbon Dioxide 27.0, Anion Gap 9, BUN 59 H, Creatinine 2.36 H, Estim Creat Clear Calc 23.58, Est GFR (MDRD) Af Amer 34 L, Est GFR (MDRD) Non-Af 28 L, BUN/Creatinine Ratio 25.0 H, Glucose 159 H, Calcium 9.2 Micro: Microbiology 10/09/23 13:10 Blood Culture (Wb) - Anticubital Left Blood Culture - Preliminary Coag Negative Staph 10/10/23 05:27 Blood Culture (Wb) - Anticubital Left Blood Culture - Preliminary 10/07/23 13:25 Blood Culture (Wb) - Left Wrist Blood Culture - Final Meth. resistant Staph. aureus 10/06/23 10:40 Blood Culture (Wb) - Left Forearm Blood Culture - Final Meth. resistant Staph. aureus 10/05/23 13:17 Blood Culture (Wb) - Anticubital Right Blood Culture - Final Meth. resistant Staph. aureus 10/05/23 11:15 Blood Culture (Wb) - Port Blood Culture - Final Meth. resistant Staph. aureus 10/06/23 15:30 Other - Dialysis/Fistula Miscellaneous Culture - Final Meth. resistant Staph. aureus 10/06/23 15:30 Other - Dialysis/Fistula Gram Stain - Final 10/04/23 14:20 Blood Culture (Wb) - Left Hand Blood Culture - Final Staphylococcus aureus 10/04/23 14:30 Blood Culture (Wb) - Right Wrist Bacteria Detection (PCR) - Final Meth. resistant Staph. aureus 10/04/23 14:30 Blood Culture (Wb) - Right Wrist Blood Culture - Final Meth. resistant Staph. aureus 10/04/23 10:37 Mucosa - Nose Respiratory Panel (PCR) - Final 10/04/23 10:18 Mucosa - Nose SARS-CoV-2, Influenza & RSV (PCR) - Final Rhythm Strip Rhythm Strip: A-fib Rate: 74 Physical Exam Const oriented x3 and no apparent distress Constitutional Narrative: Patient appears to be in better spirits today Neck Neck Narrative: Right neck incision scabbed over with no further drainage Resp normal respiratory effort Assessment & Plan Assessment/Plan (1) MRSA bacteremia: PLAN: Tunneled dialysis catheter was removed on Thursday. Patient's dressing had minimal drainage and the tunneling exit site is unremarkable today. Patient's laboratories and daily weights reviewed. Once again, I do not see any clear indication suggesting a imminent need for hemodialysis, but ultimately defer to nephrology's ongoing assessments. Patient appears to be in better frame of mind today and reports improvements in his vision. Patient is awaiting transfer to [place] for ophthalmology evaluation but there is apparently no update as to when he may be transferred. ? Okay to leave cervical wound undressed at this time ? Continue daily weights ? Continue close monitoring of urine output ? Continue daily BMP Ellis Grissom MD General Surgery Endocrine Surgery Pager: [facility] [address] [place] [address], [facility], [address] [place] [id number] Office: [phone] Charges/Coding Visit Charges Inpatient E&M: 71176 Subs Hosp L2
[2023-10-11] MEDS: Insulin Lispro 100 UNIT/ML INSULN.PEN 8 UNIT SC ×2 (08:55→18:06)
[2023-10-11] MEDS: Insulin Glargine-YFGN 100 UNIT/ML Pen 20 UNIT SC (08:55)
[2023-10-11] MEDS: Glucerna Shake 120 ML LIQUID PO (08:55)
[2023-10-11] MEDS: Potassium Chloride Oral Tablet 20 MEQ 40 MEQ PO (08:59)
[2023-10-11 09:00] VITALS: BP 122/73; PULSE 75; RESP 19; TEMP 36.1; O2SAT 97
[2023-10-11] MEDS: Carvedilol 6.25 MG Tablet PO ×2 (09:00→16:39)
[2023-10-11] MEDS: Furosemide 80 MG Tablet PO (09:00)
[2023-10-11] MEDS: Empagliflozin 25 MG Tablet PO (09:00)
[2023-10-11] MEDS: Allopurinol 100 MG Tablet 200 MG PO (09:00)
[2023-10-11] MEDS: Enoxaparin 80 MG/0.8 ML Syringe SC (09:01)
[2023-10-11] MEDS: Pantoprazole Sodium 40 MG Tablet PO (09:01)
[2023-10-11] MEDS: Finasteride 5 MG Tablet PO (09:01)
[2023-10-11 09:10] LABS: Bedside Glucose 146 mg/dL (74-106)
[2023-10-11 12:44] LABS: Bedside Glucose 145 mg/dL (74-106)
[2023-10-11] MEDS: BENZOCAINE/MENTHOL 1 LOZENGE MUCOUS MEM (12:48)
[2023-10-11 15:00] VITALS: BP 113/64; PULSE 89; RESP 16; TEMP 36.6; O2SAT 98
[2023-10-11 17:52] LABS: Bedside Glucose 142 mg/dL (74-106)
[2023-10-11 21:00] VITALS: BP 125/81; PULSE 94; RESP 16; TEMP 36.6; O2SAT 95
[2023-10-12 13:41] LABS: Pathologist Review Reviewed
[2023-10-12 13:42] LABS: Pathologist Review Reviewed
--- NOTE | 2023-10-15 10:14 | DS.PCM_ITS ---
Providers Date of Admission: 10/04/23 Date of Discharge: 10/11/23 Primary Care Physician: Dr. Howard Escobar, Consultations 10/04/23 09:29 Consult: Nephrology Routine Consulting Provider: Raulito Barahona Reason for Consult: dialysis EMERGENT Consult: No MD Notified: Yes Date Notified: 10/04/23 Time Notified: 09:30 Method of Notification: Answering Service 10/04/23 14:53 Consult: Business Controller / Pulmonary Medicine Routine Consulting Provider: Intensivists/Pulmonary Med Reason for Consult: hypotension EMERGENT Consult: No MD Notified: Yes Date Notified: 10/04/23 Time Notified: 14:27 Method of Notification: Answering Service 10/05/23 08:13 Consult: Cardiology Routine Consulting Provider: Ellis Alejo Reason for Consult: elevated troponijn 3. Essential hypertension- EMERGENT Consult: No MD Notified: Yes Date Notified: 10/05/23 Time Notified: 08:13 Method of Notification: Verbal 10/05/23 10:17 Consult: Infectious Disease Routine Consulting Provider: Sam Almonte Reason for Consult: MRSA Bacteremia EMERGENT Consult: No MD Notified: Yes Date Notified: 10/05/23 Time Notified: 10:17 Method of Notification: Text 10/05/23 15:53 Consult: General Surgery Routine Consulting Provider: Johnny Campos Reason for Consult: Tunneled dialysis catheter removal EMERGENT Consult: No MD Notified: Yes Date Notified: 10/05/23 Time Notified: 15:53 Method of Notification: Verbal 10/07/23 09:58 Consult: Ophthamology Routine Consulting Provider: Jaswant Saini Reason for Consult: visual disturbance EMERGENT Consult: No MD Notified: Yes Date Notified: 10/07/23 Time Notified: 09:58 Method of Notification: Verbal 10/07/23 15:46 Consult: Orthopedics Routine Consulting Provider: Ricki Guerrero Reason for Consult: L wrist pain, MRSA bacteremia EMERGENT Consult: No MD Notified: Yes Date Notified: 10/07/23 Time Notified: 15:46 Method of Notification: Answering Service Reason For Visit: WEAKNESS, ELEVATED TROPONIN Diagnosis Discharge Diagnosis (1) MRSA bacteremia: Status: Acute Code(s): R78.81 - Bacteremia; B95.62 - Methicillin resistant Staphylococcus aureus infection as the cause of diseases classified elsewhere Medications at Discharge Home Medications finasteride 5 mg tablet 5 mg PO DAILY prostate 12/19/20 warfarin 2.5 mg tablet 5 mg PO .COMPLEX blood thinner 03/11/21 cyanocobalamin (vitamin B-12) 1,000 mcg tablet (Vitamin B-12) 1,000 mcg PO DAILY supplement 06/26/22 carvedilol 6.25 mg tablet 6.25 mg PO BID #60 tabs 05/13/23 dapagliflozin propanediol 10 mg tablet (Farxiga) 10 mg PO DAILY diabetes 08/29/23 gabapentin 100 mg capsule 100 mg PO QHS unsure 08/29/23 pantoprazole 40 mg tablet,delayed release 40 mg PO DAILY prevent stomach ulcers 08/29/23 allopurinol 100 mg tablet 200 mg (2 x 100 mg) PO DAILYCM #30 tabs 09/03/23 insulin glargine-yfgn 100 unit/mL (3 mL) subcutaneous pen 10 unit (0.1 mL) subcut DAILY #15 mL 09/03/23 pen needle, diabetic 33 gauge x 3/16 #100 ea 09/03/23 metolazone 2.5 mg tablet 2.5 mg PO .Thursday #8 tabs 09/09/23 epinephrine 0.3 mg/0.3 mL injection, auto-injector 0.3 mg (0.3 mL) IM Q4H PRN anaphylaxis #2 ea 10/03/23 bumetanide 0.5 mg tablet 0.5 mg PO BID 10/04/23 prednisone 20 mg tablet 30 mg PO .COMPLEX 10/04/23 Vancomycin IV-PHARMACY TO DOSE 1 ea IV X1 PRN ##0 10/07/23 Hospital Course Summary of Care Provided Minutes Spent on Discharge: 35 Hospital Course: Patient is an 78-year-old gentleman admitted with progressive generalized weakness with chills. Patient was found to have significant hypotension admitted to the intensive care unit for subsequent management. Infectious wor kup has so far remained negative to date. 1. Septic shock secondary to MRSA bacteremia ? Suspected to be secondary to combination of septic shock of undetermined etiology as well as possible adrenal crisis. Patient admitted to the intensive care unit managed with IV fluids stress dose of steroid as well as broad- spectrum antibiotic therapy after cultures have been obtained. ? 10/06/2023 patient cultures came back positive for MRSA, Case subsequently discussed with ID plan is for patient tunneled dialysis catheter to be removed. Patient Levophed has been weaned off. ?10/07/2023 tunneled catheter removed ? 10/10/2023; transfer to the [facility] still pending 2. Elevated troponin ? Patient troponins continue to rise. Myocardial injury versus acute coronary syndrome. 2D echo ordered consult placed to cardiology 3. Essential hypertension ? Patient antihypertensives held on admission 4. Chronic congestive heart failure ? Currently euvolemic echo from 03/05/2023 demonstrated EF of 53% 5. End-stage renal disease ? Patient is on hemodialysis, consult placed to nephrology for dialysis orders ? 10/06/2023 given patient MRSA bacteremia plan is for patient tunneled dialysis catheter to be removed 6. Paroxysmal A-fib ? Rate controlled on systemic anticoagulation with warfarin with elevated INR currently being held ? 10/06/2023; patient to receive vitamin K to correct his coagulopathy prior to removal of the tunneled dialysis catheter 7. 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 Status post cardioMEMs device placement ? In February 2021 9. Diabetes mellitus type II -patient's oral hypoglycemics held. Placed on long acting insulin, Accu-Cheks a. c. and at bedtime and covered with sliding scale insulin 10. BPH with lower urinary obstructive symptoms - Patient treated with finasteride 11. DVT prophylaxis ? Patient is on Coumadin 12. Acute decreased vision in the left eye ? Suspicious for CRAO/BRAO; Stroke alert was called patient was however deemed not a candidate for thrombolytics.No large vessel occlusions. Prominent intracranial calcific atherosclerosis and up to 50% stenosis of both cavernous carotid arteries. Bilateral ICA plaque with mild grade stenosis of the right ICA and moderate grade stenosis of the left ICA.. Consult placed to ophthalmology ? Patient was seen in consultation by Dr. Saini with ophthalmology. After his evaluation his assessment was that patient had left eye endogenous endophthalmitis. He subsequently amended for patient to be transferred to a tertiary care center specifically [facility]. Call was placed patient was accepted for transfer ? 10/09/2023 [facility] ? 10/11/2023;Patient seen admitted some improvement involving the vision in his left eye. He is able to count fingers. Transfer to [facility] still pending 13. Hypokalemia -Corrected per protocol Time spent in the patient's overall evaluation,decision-making process, review o f diagnostic data, adjustment of management, discussion with other providers, nursing nursing and ancillary staff involved in patient's care documentation, 35 Minutes CODE STATUS; DNR Comfort Care arrest no intubation. Weight / BMI Weight Weight: 74.7 kg Body Mass Index (BMI) 27.4 ABG / Lab / Microbiology Data 10/11/23 05:00 10/11/23 05:00 Microbiology: Microbiology 10/09/23 13:10 Blood Culture (Wb) - Anticubital Left Blood Culture - Final Coag Negative Staph 10/10/23 05:27 Blood Culture (Wb) - Anticubital Left Blood Culture - Final Meth. resistant Staph. aureus 10/07/23 13:25 Blood Culture (Wb) - Left Wrist Blood Culture - Final Meth. resistant Staph. aureus 10/06/23 10:40 Blood Culture (Wb) - Left Forearm Blood Culture - Final Meth. resistant Staph. aureus 10/05/23 13:17 Blood Culture (Wb) - Anticubital Right Blood Culture - Final Meth. resistant Staph. aureus 10/05/23 11:15 Blood Culture (Wb) - Port Blood Culture - Final Meth. resistant Staph. aureus 10/06/23 15:30 Other - Dialysis/Fistula Miscellaneous Culture - Final Meth. resistant Staph. aureus 10/06/23 15:30 Other - Dialysis/Fistula Gram Stain - Final 10/04/23 14:20 Blood Culture (Wb) - Left Hand Blood Culture - Final Staphylococcus aureus 10/04/23 14:30 Blood Culture (Wb) - Right Wrist Bacteria Detection (PCR) - Final Meth. resistant Staph. aureus 10/04/23 14:30 Blood Culture (Wb) - Right Wrist Blood Culture - Final Meth. resistant Staph. aureus 10/04/23 10:37 Mucosa - Nose Respiratory Panel (PCR) - Final 10/04/23 10:18 Mucosa - Nose SARS-CoV-2, Influenza & RSV (PCR) - Final D/C Instructions Discharge Diet: No restrictions Discharge Activity: Return to Normal Activity Call your doctor if you observe: Fever of 101 or Higher, Shortness of breath, Fainting spells and Chest pain Meaningful Use Info Meaningful Use Diagnoses (Choose all that apply): None applicable Discharge Plan Admission Admit Date/Time: 10/04/23 08:27 Attending Provider: Lee Guillory Primary Care Provider: Howard Escobar Consulting Providers: Gurdeep De Luna; Ellis Alejo; Johnny Campos; Sam Almonte; Raulito Barahona; Jaswant Saini; Ricki Guerrero Discharge Orders/Prescriptions Prescriptions: New Vancomycin Iv-Pharmacy To Dose [Vancomycin Iv-Pharmacy To Dose] 1 ea IV X1 PRNQty: 0 0RF Continued finasteride 5 mg tablet 5 mg PO DAILY Patient Comments: TAKE 1 TABLET BY MOUTH ONCE DAILY cyanocobalamin (vitamin B-12) [Vitamin B-12] 1,000 mcg tablet 1,000 mcg PO DAILY metolazone 2.5 mg tablet 2.5 mg PO .Thursday Qty: 8 1RF warfarin 2.5 mg tablet 5 mg PO .COMPLEX Rx Instructions: 5 mg orally on //thu and thursday; 2.5mg po thu/thursday dapagliflozin propanediol [Farxiga] 10 mg tablet 10 mg PO DAILY gabapentin 100 mg capsule 100 mg PO QHS Rx Instructions: take 1-2 100mg capsules at bedtime daily; pantoprazole 40 mg tablet,delayed release (DR/EC) 40 mg PO DAILY insulin glargine-yfgn 100 unit/mL (3 mL) Insulin Pen 10 unit subcut DAILY Qty: 15 0RF allopurinol 100 mg Tablet 200 mg PO DAILYCM Qty: 30 0RF (DME) pen needle, diabetic 33 gauge x 3/16 needle See Rx Instructions .Route Qty: 100 0RF Rx Instructions: As directed bumetanide 0.5 mg Tablet 0.5 mg PO BID Rx Instructions: Start on 09/04/2023 prednisone 20 mg Tablet 30 mg PO .COMPLEX Rx Instructions: 30mg x one week,20mg times one week, then 5mg on 10/05/23 orally; epinephrine 0.3 mg/0.3 mL auto-injector 0.3 mg IM Q4H PRN (Reason: anaphylaxis) Qty: 2 0RF carvedilol 6.25 mg tablet 6.25 mg PO BID Qty: 60 11RF Patient Comments: BID ON //THU Rx Instructions: must administer with a meal/food Referrals / Follow Up: Howard Escobar DO [Primary Care Provider] - Disposition Disposition (needs filled in before D/C Order can be placed): Acute Care Hospital Charges/Coding Visit Charges Inpatient E&M: 46394 Disch Hosp >30min
== END 2023-10-12 03:42 | disposition short-term general hospital (02) | DRG 280 ==
LOC: ED 06:35 → PCU 08:32 → ICU 15:10
PROVIDERS: Internal Medicine Critical Care Medicine; Internal Medicine Pulmonary Disease; Surgery; Emergency Provider Student in an Organized Health Care Education/Training Program; PCP Family Medicine; Visit Provider Internal Medicine
DX: T82.7XXA Infection and inflammatory reaction due to other cardiac and vascular devices, implants and grafts, initial encounter (principal); I21.4 Non-ST elevation (NSTEMI) myocardial infarction; E43 Unspecified severe protein-calorie malnutrition; R65.21 Severe sepsis with septic shock; A41.02 Sepsis due to Methicillin resistant Staphylococcus aureus; N18.6 End stage renal disease; E27.2 Addisonian crisis; I24.89 Other forms of acute ischemic heart disease; I13.2 Hypertensive heart and chronic kidney disease with heart failure and with stage 5 chronic kidney disease, or end stage renal disease; I48.19 Other persistent atrial fibrillation; I50.42 Chronic combined systolic (congestive) and diastolic (congestive) heart failure; I42.2 Other hypertrophic cardiomyopathy; I42.1 Obstructive hypertrophic cardiomyopathy; M00.9 Pyogenic arthritis, unspecified; E87.1 Hypo-osmolality and hyponatremia; N13.8 Other obstructive and reflux uropathy; H44.19 Other endophthalmitis; I27.20 Pulmonary hypertension, unspecified; E11.22 Type 2 diabetes mellitus with diabetic chronic kidney disease; I70.0 Atherosclerosis of aorta; E11.51 Type 2 diabetes mellitus with diabetic peripheral angiopathy without gangrene; Z99.2 Dependence on renal dialysis; I48.0 Paroxysmal atrial fibrillation; I34.0 Nonrheumatic mitral (valve) insufficiency; I65.23 Occlusion and stenosis of bilateral carotid arteries; M10.9 Gout, unspecified; E78.5 Hyperlipidemia, unspecified; E87.6 Hypokalemia; I25.10 Atherosclerotic heart disease of native coronary artery without angina pectoris; I44.7 Left bundle-branch block, unspecified; G47.33 Obstructive sleep apnea (adult) (pediatric); I67.2 Cerebral atherosclerosis; E86.9 Volume depletion, unspecified; D72.825 Bandemia; R79.1 Abnormal coagulation profile; Z79.84 Long term (current) use of oral hypoglycemic drugs; R21 Rash and other nonspecific skin eruption; R53.81 Other malaise; Z79.01 Long term (current) use of anticoagulants; Z87.891 Personal history of nicotine dependence; R03.1 Nonspecific low blood-pressure reading; N13.9 Obstructive and reflux uropathy, unspecified; Z82.3 Family history of stroke; N40.1 Benign prostatic hyperplasia with lower urinary tract symptoms
CPT/HCPCS: 36415; 36600; 70450; 70496; 70498; 71045; 71250; 73080; 73100; 74176; 80048; 80053; 80202; 81001; 82803; 82962; 83735; 84100; 84443; 84484; 85025; 85610; 86160; 86162; 87040; 87070; 87077; 87149; 87186; 87205; 87631; 87633; 90937; 93005; 93306; 96372; 97116; 97162; 97166; 97530; 97535; 97802; 97803; 99285; J7030; J7040; J7050; P9047; P9612; Q9957; Q9967; A4216; C8929; G0257; J3490

== ENCOUNTER → 2023-11-10 | Outpatient (CLI) | payer MEDICARE, BC, SELFPAY ==
[2023-11-10 11:37] LABS: Absolute Lymphocyte Count 0.91 X10^3/uL (0.83-4.51); Absolute Neutrophil Count 12.2 X10^3/uL (2.0-7.7); Basophil% 0.7 % (0-1); Eosinophil# 0.12 X10^3/uL; Eosinophils% 0.8 % (0-5); Hematocrit 29.8 % (40-54); Hemoglobin 9.1 g/dL (13.0-16.5); Lymphocyte # 0.91 X10^3/ul (0.83-4.51); Lymphocyte % 6.1 % (19-41); Mean Corp Hgb Conc 30.5 g/dL (32-36); Mean Corpuscular Hgb 28.4 pg (27.0-32.0); Mean Corpuscular Volume 93.1 fL (80-94); Monocyte# 1.03 X10^3/uL; Monocyte% 6.9 % (0-10); NRBC Flagged by Analyzer 0.2 % (0-5); Neutrophil # 12.23 X10^3/uL (2.7-7.7); Neutrophil % 81.9 % (47-70); Platelet Count 249 K/mm3 (150-450); RBC Distribution Width CV 18.6 % (11.6-14.6); RBC Distribution Width SD 61.5 fl (35.1-43.9); White Blood Count 14.9 K/mm3 (4.4-11.0)
[2023-11-10 11:51] LABS: BNP,B-Type NATRIURETIC PEPTIDE 786.1 pg/mL (0-100)
[2023-11-10 15:15] LABS: ALB/GLOB Ratio 0.7 RATIO (0.9-2.4); AST(SGOT) 28 U/L (15-37); Alanine Aminotransfer ALT/SGPT 40 U/L (16-61); Albumin, Serum 2.6 g/dL (3.2-5.0); Alkaline Phosphatase 137 U/L (45-117); Anion Gap 9 (5-15); BUN 35 mg/dL (7-18); BUN/Creat Ratio 16.4 RATIO (10-20); Calcium,Total 8.5 mg/dL (8.5-10.1); Chloride 102 mmol/L (98-107); Creatinine, Serum 2.14 mg/dL (0.70-1.30); EST Glomerular Filtration Rate 32 mL/min (>60); Est Glom Filt Rate - Afr Amer 38 mL/min (>60); Globulin 3.9 g/dL (2.2-4.2); Glucose 261 mg/dL (74-106); Potassium 3.8 mmol/L (3.5-5.1); Protein, Total 6.5 g/dL (6.4-8.2); Sodium Level 139 mmol/L (136-145)
== END | disposition home or self-care (01) ==
LOC: LAB 11:17
PROVIDERS: PCP Family Medicine; Referring Provider Nurse Practitioner Family; Visit Provider Nurse Practitioner Family
DX: I42.8 Other cardiomyopathies (principal); R06.00 Dyspnea, unspecified; E78.5 Hyperlipidemia, unspecified
CPT/HCPCS: 36415; 80053; 83880; 85025

== ENCOUNTER 2023-11-29 15:05 | Inpatient (IN) | payer MEDICARE, BC, SELFPAY ==
[2023-11-29 15:07] VITALS: BP 128/73; PULSE 88; RESP 18; TEMP 35.6; O2SAT 98
--- NOTE | 2023-11-29 15:27 | EKG12_ITS ---
Test Reason : GENERAL Blood Pressure : / mmHG Vent. Rate : 064 BPM Atrial Rate : 000 BPM P-R Int : 000 ms QRS Dur : 172 ms QT Int : 488 ms P-R-T Axes : 000 012 187 degrees QTc Int : 503 ms Atrial fibrillation with possible V paced rhythm Left bundle branch block Abnormal ECG Confirmed by Ellis Alejo ([id number]), editor trade journal VIOLETA VILLALBA ([id number]) on 12/01/2023 10:05:31 AM Referred By: Confirmed By:Ellis Alejo
[2023-11-29 15:29] VITALS: BMI 27.3
[2023-11-29 15:36] LABS: Bedside Glucose 405 mg/dL (74-106)
--- NOTE | 2023-11-29 15:42 | EX.ED.DYSGE1 ---
HPI <RG Dent - Last Filed: 11/29/23 17:15> History of Present Illness Chief Complaint: Hyperglycemia Narrative Narrative: Patient is an 78-year-old male with multiple medical conditions such as CHF, significant arthritis on prednisone 5 mg daily, chronic kidney disease, gout, cardiac history on Coumadin who presents to the emergency department for generalized weakness for 1 week, worsening weakness for 2 days. Patient is always on prednisone 5 mg, patient is a type II diabetic, patient states the last week, was elevated to 50 mg then 40 then 30 secondary to an increase of pain of his arthritis. Patient thinks that his sugars have become more elevated, it is affecting his vision as well as his generalized weakness. He is here for evaluation. He is here with his son and daughter. [facility] <RG Dent - Last Filed: 11/29/23 17:15> [facility] Medical History Abnormal ankle brachial index (LOKI) Acute hypoxic respiratory failure Anemia due to stage 3b chronic kidney disease Back pain BPH (benign prostatic hyperplasia) Cardiology follow-up encounter CHF NYHA class III Chronic combined systolic and diastolic CHF (congestive heart failure) Chronic kidney disease, stage 3b Chronic kidney disease, stage 4 (severe) Claudication Constipation CPAP (continuous positive airway pressure) dependence Diabetes Diarrhea Dietary restriction Elevated troponin (01/2021) Essential (primary) hypertension Gout Heartburn History of echocardiogram History of edema History of irregular heartbeat History of non-ST elevation myocardial infarction (NSTEMI) (07/25/21) History of pain when walking History of steroid therapy History of tobacco use HLD (hyperlipidemia) Hypertension Hypertrophic cardiomyopathy Hypokalemia Joint pain Lactic acidosis Left bundle branch block Leg cramps Leukocytosis Longstanding persistent atrial fibrillation Mitral valve insufficiency Night sweats 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 Obesity (BMI 30.0-34.9) KIMBERLY (obstructive sleep apnea) Persistent atrial fibrillation Poor appetite Presence of implantable pulmonary artery pressure and heart rate monitoring system (03/25/21) Renal infarct Restless legs Secondary pulmonary arterial hypertension Shortness of breath on exertion Wears glasses Home Medications finasteride 5 mg tablet 5 mg PO DAILY prostate 12/19/20 [History Last Taken 12/22/20] pantoprazole 40 mg tablet,delayed release 40 mg PO DAILY prevent stomach ulcers 08/29/23 [History Last Taken Unknown] allopurinol 100 mg tablet 200 mg (2 x 100 mg) PO DAILYCM #30 tabs 09/03/23 [Rx Last Taken Unknown] pen needle, diabetic 33 gauge x 3/16 #100 ea 09/03/23 [Rx Last Taken Unknown] epinephrine 0.3 mg/0.3 mL injection, auto-injector 0.3 mg (0.3 mL) IM Q4H PRN anaphylaxis #2 ea 10/03/23 [Rx Last Taken Unknown] aspirin 81 mg tablet,delayed release (Adult Aspirin Regimen) 81 mg PO DAILY 11/10/23 [History Last Taken Unknown] atorvastatin 20 mg tablet 20 mg PO DAILY #90 tabs 11/10/23 [Rx Last Taken Unknown] insulin glargine-yfgn 100 unit/mL (3 mL) subcutaneous pen 12 unit subcut DAILY 11/10/23 [History Last Taken Unknown] insulin lispro 100 unit/mL subcutaneous pen 20 unit subcut QAC 11/10/23 [History Last Taken Unknown] mecobalamin (vitamin B12) 10,000 mcg solution for injection 100 mcg IM DAILY PRN SUPPLEMENT 11/10/23 [History Last Taken Unknown] prednisolone acetate 1 % eye drops,suspension 1 drp ophthalmic (eye) ONCE 11/10/23 [History Last Taken Unknown] prednisone 5 mg tablet 5 mg PO QDAY 11/10/23 [History Last Taken Unknown] warfarin 2.5 mg tablet 2 mg PO DAILY blood thinner 11/10/23 [History Last Taken Unknown] carvedilol 6.25 mg tablet 6.25 mg PO BID #180 tabs 11/11/23 [Rx Last Taken Unknown] gabapentin 100 mg capsule 200 mg PO QHS started per Dr. Conner: not sure of dose. 11/17/23 [History Last Taken Unknown] metolazone 5 mg tablet 5 mg PO DAILY started by Dr. Barahona [facility] 11/17/23 [History Last Taken Unknown] potassium chloride 20 mEq tablet,extended release 20 meq PO DAILY started by Dr. Barahona nephrology 11/17/23 [History Last Taken Unknown] torsemide 20 mg tablet 40 mg PO .COMPLEX 11/17/23 [History Last Taken Unknown] chlorpheniramine-pseudoephedrine 4 mg-60 mg tablet 1 tab PO Q6H 11/29/23 [History Last Taken Unknown] dapagliflozin propanediol 10 mg tablet (Farxiga) 10 mg PO DAILY 11/29/23 [History Last Taken Unknown] metolazone 2.5 mg tablet 5 mg PO DAILY 11/29/23 [History Last Taken Unknown] tramadol 50 mg tablet 50 mg PO Q6H PRN pain 11/29/23 [History Last Taken Unknown] Allergy/AdvReac Type Severity Reaction Status Date / Time metoprolol AdvReac bradycardia Verified 11/29/23 15:09 rivaroxaban [From Xarelto] AdvReac Bleeding Verified 11/29/23 15:09 Family History Father Heart disease Sister Heart disease Brother Heart disease Other Arthritis CVA (cerebral vascular accident) Depression Mental disorder Surgical History History of appendectomy History of cataract extraction History of left heart catheterization (02/19/21) History of transurethral resection of prostate (01/2019) History of ventricular septal myectomy (2000) Hx of umbilical hernia repair Social History Smoking Status: Never smoker how long ago did patient quit smokin years ago 0.25ppd second hand exposure: Yes alcohol intake: never caffeine: Yes Type: coffee Number of servings: 1 what type of physical activity do you participate in: other details: treadmill frequency: daily ROS <RG Dent - Last Filed: 11/29/23 17:15> ROS ED ROS Narrative Constitutional: Negative for fever, chills, weight loss. Positive for generalized weakness Eyes: Negative for vision loss, vision change, double vision. Positive for blurry vision ENT: Negative for any sore throat, ear pain, congestion Cardiovascular: Negative for any chest pain, tightness, palpitations Respiratory: Negative for any cough, sputum production, hemoptysis, dyspnea, dyspnea on exertion, orthopnea Gastrointestinal: Negative for any abdominal pain, nausea, vomiting, diarrhea, constipation, blood in stool, blood in vomit. Positive for dry mouth : Negative for any urinary frequency, dysuria, retention, blood in urine Muscle skeletal: Negative for any neck pain, back pain Neurological: Negative for any headache, syncope, dizziness Skin: Negative for any rashes, itching, abrasions, lacerations Psychiatric: Negative for any depression, anxiety, stress, suicidal ideation, homicidal ideation Hematologic: Negative for any excessive bruising, easy bleeding EXAM <RG Dent - Last Filed: 11/29/23 17:15> Physical Exam Narrative Exam Narrative: Vital signs reviewed. Patient is alert and orient x 4. HEET: Head normocephalic atraumatic, TMs clear bilaterally. Posterior pharynx is clear, dry mucous membranes. Nares clear bilaterally. Neck: Supple with no lymphadenopathy or tenderness. No signs of meningismus. Cardiac: Regular rate and rhythm no murmurs gallops or rubs, equal peripheral pulses bilaterally. Respiratory: Lungs clear to auscultation bilaterally. No chest tenderness. Abdomen: Soft, nontender, nondistended. No abdominal bruit or pulsatile masses. No hepatosplenomegaly Extremities: No peripheral edema, no signs of gross trauma or deformity. Active full range of motion of all extremities. Neuro: Cranial nerves II through XII intact, no focal neurological deficits. Skin: Clean dry and intact with no rash, purpura, petechiae, vesicles or pustules. Backs/flank: No CVA tenderness, no midline spinal tenderness, no deformity. Psych: Normal mood and affect. No SI, HI or acute psychosis. Const Vital Signs: 11/29/23 15:07 11/29/23 15:27 11/29/23 17:05 Temperature 96.1 F L Temperature Source Temporal Pulse Rate 88 64 Respiratory Rate 18 16 Respiratory Pattern Normal Blood Pressure 128/73 H 128/78 H Blood Pressure Mean 91 94 Pulse Ox 98 97 Oxygen Delivery Method Room Air Room Air Positive well nourished and well developed General Appearance ED: well developed <Dr. Dakota Smith DO - Last Filed: 11/30/23 01:15> Physical Exam Const Vital Signs: 11/29/23 15:07 11/29/23 15:27 11/29/23 17:05 Temperature 96.1 F L Temperature Source Temporal Pulse Rate 88 64 Respiratory Rate 18 16 Respiratory Pattern Normal Blood Pressure 128/73 H 128/78 H Blood Pressure Mean 91 94 Pulse Ox 98 97 Oxygen Delivery Method Room Air Room Air MDM <RG Dent - Last Filed: 11/29/23 17:15> [facility] Lab Data Labs: Laboratory Results - last 24 hr 11/29/23 11/29/23 11/29/23 15:10 15:16 15:40 WBC 14.8 H RBC 4.36 L Hgb 12.2 L Hct 36.1 L MCV 82.8 MCH 28.0 MCHC 33.8 RDW Std Deviation 49.4 H RDW Coeff of Kiersten 16.5 H Plt Count 335 MPV 11.8 Immature Gran % (Auto) 2.800 H Neut % (Auto) 87.1 H Lymph % (Auto) 5.0 L Norman % (Auto) 4.7 Eos % (Auto) 0.1 Baso % (Auto) 0.3 Absolute Neuts (auto) 12.9 H Absolute Lymphs (auto) 0.74 L Nucleated RBC % 0 PT 31.1 H INR 3.0 Sodium 121 L Potassium 2.7 L* Chloride 71 L* Carbon Dioxide 33.0 H Anion Gap 17 H BUN 94 H Creatinine 2.83 H Estim Creat Clear Calc 19.64 Est GFR (MDRD) Af Amer 28 L Est GFR (MDRD) Non-Af 23 L BUN/Creatinine Ratio 33.2 H Glucose 417 H Calcium 8.9 Total Bilirubin 0.80 AST 24 ALT 30 Alkaline Phosphatase 107 Troponin I High Sens 197 H* Total Protein 7.8 Albumin 2.8 L Globulin 5.0 H Albumin/Globulin Ratio 0.6 L Lipase 58 Urine Color Urine Clarity Urine pH Ur Specific Dal[place]ell Urine Protein Urine Glucose (UA) Urine Ketones Urine Occult Blood Urine Nitrite Urine Bilirubin Urine Urobilinogen Ur Leukocyte Esterase Urine RBC Urine WBC Ur Squamous Epith Cells Amorphous Sediment Urine Bacteria Urine Mucus Acetone Level NEGATIVE POC Glucose 405 H 11/29/23 16:31 WBC RBC Hgb Hct MCV MCH MCHC RDW Std Deviation RDW Coeff of Kiersten Plt Count MPV Immature Gran % (Auto) Neut % (Auto) Lymph % (Auto) Norman % (Auto) Eos % (Auto) Baso % (Auto) Absolute Neuts (auto) Absolute Lymphs (auto) Nucleated RBC % PT INR Sodium Potassium Chloride Carbon Dioxide Anion Gap BUN Creatinine Estim Creat Clear Calc Est GFR (MDRD) Af Amer Est GFR (MDRD) Non-Af BUN/Creatinine Ratio Glucose Calcium Total Bilirubin AST ALT Alkaline Phosphatase Troponin I High Sens Total Protein Albumin Globulin Albumin/Globulin Ratio Lipase Urine Color Yellow Urine Clarity Clear Urine pH 7.0 Ur Specific [place] 1.005 Urine Protein Negative Urine Glucose (UA) 1000 H Urine Ketones Negative Urine Occult Blood Negative Urine Nitrite Negative Urine Bilirubin Negative Urine Urobilinogen Normal Ur Leukocyte Esterase Negative Urine RBC 0 SEEN Urine WBC 0-5 SEEN Ur Squamous Epith Cells 0-5 SEEN Amorphous Sediment 2+ PHOS Urine Bacteria 0 SEEN Urine Mucus 0 SEEN Acetone Level POC Glucose Radiography Diagnostic Testing: Clinical Impression(s) from Imaging Studies Chest X-Ray 11/29/23 16:10 IMPRESSION: Cardiomegaly. Electronically Signed: Christopher Blanco DO at 17:16 EDT Reading Location ID and State: [facility] / [place] Tel [phone], Service support , EKG Wide QRS rhythm left bundle branch block: Attestation: I personally reviewed and interpreted this EKG as follows: Comments: Wide QRS, rate of 64 bpm QRS duration of 72 ms, no acute ST elevation, no acute infarct noted. Treatment and Re-Evaluation :: Differential diagnosis includes however is not limited to: Hyperglycemia, diabetic ketoacidosis, electro abnormality, dehydration, acute kidney injury Patient is in no obvious respiratory distress vital signs are stable. Patient is alert and orient x 4, looks nontoxic. Patient will receive a full workup, patient received laboratory values concerning for any electrolyte abnormality, DKA, UTI, patient received a two-view chest x-ray to check for any pneumonia. Patient received a troponin as well as PT/INR secondary to being on Coumadin. Patient's EKG was unremarkable. He will be given 1 L of normal saline. Patient be reevaluated. Patient CBC shows a leukocytosis with white blood count 14.8 this is chronic for the patient. Patient's chemistries show a potassium of 2.7, this is critically low, patient will be given 20 mill equivalents IV as well as 40 p.o. Chloride 71, patient's troponin was 197, this will be repeated however patient does have history of elevated troponins. Patient's acetone level was negative. While the patient was at x-ray, the patient did almost fall secondary to not being able bear his weight. Patient's urinalysis was negative for any infection. At this time, do believe the patient would benefit from admission. Patient will be admitted to the hospitalist for weakness, hyperglycemia, hypokalemia, renal insufficiency. Spoke with hospitalist PCU full. <Dr. Dakota Smith DO - Last Filed: 11/30/23 01:15> [facility] History & Record Review Discussion w/independent historian: Patient and Family Lab Data Attestation: I reviewed the patient's lab results. Labs: Laboratory Results - last 24 hr 11/29/23 11/29/23 11/29/23 15:10 15:16 15:40 WBC 14.8 H RBC 4.36 L Hgb 12.2 L Hct 36.1 L MCV 82.8 MCH 28.0 MCHC 33.8 RDW Std Deviation 49.4 H RDW Coeff of Kiersten 16.5 H Plt Count 335 MPV 11.8 Immature Gran % (Auto) 2.800 H Neut % (Auto) 87.1 H Lymph % (Auto) 5.0 L Norman % (Auto) 4.7 Eos % (Auto) 0.1 Baso % (Auto) 0.3 Absolute Neuts (auto) 12.9 H Absolute Lymphs (auto) 0.74 L Nucleated RBC % 0 PT 31.1 H INR 3.0 Sodium 121 L Potassium 2.7 L* Chloride 71 L* Carbon Dioxide 33.0 H Anion Gap 17 H BUN 94 H Creatinine 2.83 H Estim Creat Clear Calc 19.64 Est GFR (MDRD) Af Amer 28 L Est GFR (MDRD) Non-Af 23 L BUN/Creatinine Ratio 33.2 H Glucose 417 H Calcium 8.9 Total Bilirubin 0.80 AST 24 ALT 30 Alkaline Phosphatase 107 Troponin I High Sens 197 H* Total Protein 7.8 Albumin 2.8 L Globulin 5.0 H Albumin/Globulin Ratio 0.6 L Lipase 58 Urine Color Urine Clarity Urine pH Ur Specific [place] Urine Protein Urine Glucose (UA) Urine Ketones Urine Occult Blood Urine Nitrite Urine Bilirubin Urine Urobilinogen Ur Leukocyte Esterase Urine RBC Urine WBC Ur Squamous Epith Cells Amorphous Sediment Urine Bacteria Urine Mucus Acetone Level NEGATIVE POC Glucose 405 H 11/29/23 16:31 WBC RBC Hgb Hct MCV MCH MCHC RDW Std Deviation RDW Coeff of Kiersten Plt Count MPV Immature Gran % (Auto) Neut % (Auto) Lymph % (Auto) Norman % (Auto) Eos % (Auto) Baso % (Auto) Absolute Neuts (auto) Absolute Lymphs (auto) Nucleated RBC % PT INR Sodium Potassium Chloride Carbon Dioxide Anion Gap BUN Creatinine Estim Creat Clear Calc Est GFR (MDRD) Af Amer Est GFR (MDRD) Non-Af BUN/Creatinine Ratio Glucose Calcium Total Bilirubin AST ALT Alkaline Phosphatase Troponin I High Sens Total Protein Albumin Globulin Albumin/Globulin Ratio Lipase Urine Color Yellow Urine Clarity Clear Urine pH 7.0 Ur Specific [place] 1.005 Urine Protein Negative Urine Glucose (UA) 1000 H Urine Ketones Negative Urine Occult Blood Negative Urine Nitrite Negative Urine Bilirubin Negative Urine Urobilinogen Normal Ur Leukocyte Esterase Negative Urine RBC 0 SEEN Urine WBC 0-5 SEEN Ur Squamous Epith Cells 0-5 SEEN Amorphous Sediment 2+ PHOS Urine Bacteria 0 SEEN Urine Mucus 0 SEEN Acetone Level POC Glucose Radiography Diagnostic Testing: Clinical Impression(s) from Imaging Studies Chest X-Ray 11/29/23 16:10 IMPRESSION: Cardiomegaly. Electronically Signed: Christopher Blanco DO at 17:16 EDT Reading Location ID and State: [facility] / [place] Tel [phone], Service support , Treatment and Re-Evaluation :: Differential diagnosis includes however is not limited to: Hyperglycemia, diabetic ketoacidosis, electro abnormality, dehydration, acute kidney injury Patient is in no obvious respiratory distress vital signs are stable. Patient is alert and orient x 4, looks nontoxic. Patient will receive a full workup, patient received laboratory values concerning for any electrolyte abnormality, DKA, UTI, patient received a two-view chest x-ray to check for any pneumonia. Patient received a troponin as well as PT/INR secondary to being on Coumadin. Patient's EKG was unremarkable. He will be given 1 L of normal saline. Patient be reevaluated. Patient CBC shows a leukocytosis with white blood count 14.8 this is chronic for the patient. Patient's chemistries show a potassium of 2.7, this is critically low, patient will be given 20 mill equivalents IV as well as 40 p.o. Chloride 71, patient's troponin was 197, this will be repeated however patient does have history of elevated troponins. Patient's acetone level was negative. While the patient was at x-ray, the patient did almost fall secondary to not being able bear his weight. Patient's urinalysis was negative for any infection. At this time, do believe the patient would benefit from admission. Patient will be admitted to the hospitalist for weakness, hyperglycemia, hypokalemia, renal insufficiency. Spoke with hospitalist PCU full. I have personally performed a face to face assessment of the patient and have reviewed the SHRUTI Note. I performed a substantive portion of the visit including all aspects of the following. My jacome findings include: History is 78-year-old male extensive medical history with recent hospitalization. He is a diabetic now on insulin therapy. He was recently on increase steroid use. He has been noticing hyperglycemia and generalized weakness. No reported fevers. Recent hospitalization and transfer to [facility] was reviewed Exam is patient generally weak but able to stand at bedside to urinate. He appears in no acute distress. Medical Decison Making significantly low potassium with hyperglycemia. Evidence of dehydration. INR therapeutic at 3. Plan is admission into the hospital. Discharge Plan Dx/Rx/DC Orders Clinical Impression: Acute dehydration, Acute hyperglycemia, Acute renal insufficiency, Weakness, Acute hypokalemia Disposition Disposition: Acute Care Hospital [facility] Discharge Date/Time: 11/29/23 17:53
[2023-11-29] MEDS: 0.9% Normal Saline (1000mL) 1,000 ML 1000 ML IV (16:04)
[2023-11-29 16:05] LABS: Absolute Lymphocyte Count 0.74 X10^3/uL (0.83-4.51); Absolute Neutrophil Count 12.9 X10^3/uL (2.0-7.7); Basophil# 0.05 X10^3/uL; Basophil% 0.3 % (0-1); Eosinophil# 0.01 X10^3/uL; Eosinophils% 0.1 % (0-5); Hematocrit 36.1 % (40-54); Hemoglobin 12.2 g/dL (13.0-16.5); Lymphocyte # 0.74 X10^3/ul (0.83-4.51); Mean Corp Hgb Conc 33.8 g/dL (32-36); Mean Corpuscular Volume 82.8 fL (80-94); Mean Platelet Vol. 11.8 fl (6.2-12.0); Monocyte% 4.7 % (0-10); NRBC Flagged by Analyzer 0 % (0-5); Neutrophil # 12.91 X10^3/uL (2.7-7.7); Neutrophil % 87.1 % (47-70); Platelet Count 335 K/mm3 (150-450); RBC Distribution Width CV 16.5 % (11.6-14.6); RBC Distribution Width SD 49.4 fl (35.1-43.9); Red Blood Count 4.36 M/mm3 (4.6-6.2); White Blood Count 14.8 K/mm3 (4.4-11.0)
--- NOTE | 2023-11-29 16:10 | RAD_ITS ---
INDICATION: Cough EXAMINATION/TECHNIQUE: X-RAY - XR Chest 2 Views COMPARISON: October 04, 2023 FINDINGS: LINES/DEVICES: Stable sternotomy wires. Interval removal of right-sided venous catheter. LUNGS: No consolidation, edema or effusion. No pneumothorax. MEDIASTINUM AND CARDIOVASCULAR STRUCTURES: Cardiac silhouette is enlarged. Central airways and mediastinal contour are unremarkable. BONES AND SOFT TISSUES: Unremarkable. RAD/Chest PA and Lateral IMPRESSION: Cardiomegaly. Electronically Signed: Christopher Blanco DO at 17:16 EDT ,
[2023-11-29 16:16] LABS: ALB/GLOB Ratio 0.6 RATIO (0.9-2.4); AST(SGOT) 24 U/L (15-37); Alanine Aminotransfer ALT/SGPT 30 U/L (16-61); Albumin, Serum 2.8 g/dL (3.2-5.0); Alkaline Phosphatase 107 U/L (45-117); Anion Gap 17 (5-15); BUN 94 mg/dL (7-18); BUN/Creat Ratio 33.2 RATIO (10-20); Calcium,Total 8.9 mg/dL (8.5-10.1); Chloride 71 mmol/L (98-107); Creatinine, Serum 2.83 mg/dL (0.70-1.30); EST Glomerular Filtration Rate 23 mL/min (>60); Est Glom Filt Rate - Afr Amer 28 mL/min (>60); Estimated Creatinine Clearance 19.64 ml/min; Glucose 417 mg/dL (74-106); Lipase 58 U/L (13-75); Potassium 2.7 mmol/L (3.5-5.1); Protein, Total 7.8 g/dL (6.4-8.2); Sodium Level 121 mmol/L (136-145); Troponin-I HS 197 pg/mL (3.0-78.0)
[2023-11-29] MEDS: Potassium Chloride Oral Tablet 20 MEQ 40 MEQ PO (16:25)
[2023-11-29 16:35] LABS: Prothrombin Time (Protime)PT. 31.1 SECONDS (11.7-14.9)
[2023-11-29 16:40] LABS: Bacteria 0 SEEN /hpf (None Seen); Mucous, Urine 0 SEEN /hpf (<or=2+); Red Blood Cells-Urine 0 SEEN /hpf (0-5)
[2023-11-29 16:42] LABS: Color, Urine Yellow (Yellow); Glucose, Dipstick 1000 mg/dl (Normal); Ketone-Dipstick Negative (Negative); Leukocyte Esterase-Dipstick Negative /ul (Negative); Nitrite-Dipstick Negative (Negative); Occult Blood-Urine Negative /ul (Negative); Protein-Dipstick Negative (Negative); Specific Gravity, Urine 1.005 (1.002-1.030); Urine Bilirubin Dipstick Negative (Negative); Urine Clarity Clear (Clear); Urine Urobilinogen Normal (Normal)
[2023-11-29] MEDS: Potassium Chloride 10mEq/100mL 10 MEQ/100 ML IV.SOLN. 100 MEQ IV BOLUS ×2 (16:45→17:51)
[2023-11-29 16:55] LABS: Amorphous Sediment 2+ PHOS; Squamous Epithelial Cells - UA 0-5 SEEN /hpf (0-5); White Blood Cells 0-5 SEEN /hpf (0-5)
[2023-11-29 17:05] VITALS: BP 128/78; PULSE 64; RESP 16; O2SAT 97
[2023-11-29 17:13] VITALS: BP 128/78; PULSE 78; RESP 16; TEMP 36.4; O2SAT 99
--- NOTE | 2023-11-29 17:46 | HP.PCM.HOS_ITS ---
[facility] - General General Date of Admission: 11/29/23 Date of Service: 11/29/23 Chief Complaint: weakness. [facility] Narrative ANTWAN GE, is a 78 M who presents with weakness and hyperglycemia. Recently, the patient experienced a gout flare in his first MCP of his right hand. Received a steroid injection in his arm and then was put on a short course of prednisone burst then resumed his daily prednisone. Blood sugars have been in the 400s to 500s at times. He does continue to feel weak and presented to the emergency room. In the ED, he was noted to have a potassium of 2.7, sodium 121, creatinine of 2.83 and glucose of 417. Troponins were 197. Patient was transferred last month to [facility] for MRSA bacteremia. Patient was found to have an infected tunneled dialysis catheter. Also involving his eye which warranted transfer to [facility] and did have an injection into his eye by ophthalmology. Patient was discharged on 23 October and completed a 2- week course of IV antibiotics at home. He is denying any fever or chills at this time. Patient did have that infected dialysis catheter which was removed and has not required dialysis since then. [facility] Medical History Abnormal ankle brachial index (LOKI) Acute hypoxic respiratory failure Anemia due to stage 3b chronic kidney disease Back pain BPH (benign prostatic hyperplasia) Cardiology follow-up encounter CHF NYHA class III Chronic combined systolic and diastolic CHF (congestive heart failure) Chronic kidney disease, stage 3b Chronic kidney disease, stage 4 (severe) Claudication Constipation CPAP (continuous positive airway pressure) dependence Diabetes Diarrhea Dietary restriction Elevated troponin (01/2021) Essential (primary) hypertension Gout Heartburn History of echocardiogram History of edema History of irregular heartbeat History of non-ST elevation myocardial infarction (NSTEMI) (07/25/21) History of pain when walking History of steroid therapy History of tobacco use HLD (hyperlipidemia) Hypertension Hypertrophic cardiomyopathy Hypokalemia Joint pain Lactic acidosis Left bundle branch block Leg cramps Leukocytosis Longstanding persistent atrial fibrillation Mitral valve insufficiency Night sweats 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 Obesity (BMI 30.0-34.9) KIMBERLY (obstructive sleep apnea) Persistent atrial fibrillation Poor appetite Presence of implantable pulmonary artery pressure and heart rate monitoring system (03/25/21) Renal infarct Restless legs Secondary pulmonary arterial hypertension Shortness of breath on exertion Wears glasses Home Medications finasteride 5 mg tablet 5 mg PO DAILY prostate 12/19/20 [History Last Taken 12/22/20] pantoprazole 40 mg tablet,delayed release 40 mg PO DAILY prevent stomach ulcers 08/29/23 [History Last Taken Unknown] allopurinol 100 mg tablet 200 mg (2 x 100 mg) PO DAILYCM #30 tabs 09/03/23 [Rx Last Taken Unknown] pen needle, diabetic 33 gauge x 3/16 #100 ea 09/03/23 [Rx Last Taken Unknown] epinephrine 0.3 mg/0.3 mL injection, auto-injector 0.3 mg (0.3 mL) IM Q4H PRN anaphylaxis #2 ea 10/03/23 [Rx Last Taken Unknown] aspirin 81 mg tablet,delayed release (Adult Aspirin Regimen) 81 mg PO DAILY 11/10/23 [History Last Taken Unknown] atorvastatin 20 mg tablet 20 mg PO DAILY #90 tabs 11/10/23 [Rx Last Taken Unknown] cyclopentolate 1 % eye drops 1 drp ophthalmic (eye) BID 11/10/23 [History Last Taken Unknown] insulin glargine-yfgn 100 unit/mL (3 mL) subcutaneous pen 12 unit subcut DAILY 11/10/23 [History Last Taken Unknown] insulin lispro 100 unit/mL subcutaneous pen 20 unit subcut QAC 11/10/23 [History Last Taken Unknown] mecobalamin (vitamin B12) 10,000 mcg solution for injection mcg IM 11/10/23 [History Last Taken Unknown] prednisolone acetate 1 % eye drops,suspension 1 drp ophthalmic (eye) ONCE 11/10/23 [History Last Taken Unknown] prednisone 5 mg tablet 5 mg PO QDAY 11/10/23 [History Last Taken Unknown] warfarin 2.5 mg tablet 2 mg PO DAILY blood thinner 11/10/23 [History Last Taken Unknown] carvedilol 6.25 mg tablet 6.25 mg PO BID #180 tabs 11/11/23 [Rx Last Taken Unknown] gabapentin 100 mg capsule 200 mg PO QHS started per Dr. Conner: not sure of dose. 11/17/23 [History Last Taken Unknown] metolazone 5 mg tablet 5 mg PO DAILY started by Dr. Barahona Nephrology 11/17/23 [History Last Taken Unknown] potassium chloride 20 mEq tablet,extended release 20 meq PO DAILY started by Dr. Barahona nephrology 11/17/23 [History Last Taken Unknown] torsemide 20 mg tablet 40 mg PO .COMPLEX 11/17/23 [History Last Taken Unknown] chlorpheniramine-pseudoephedrine 4 mg-60 mg tablet 1 tab PO Q6H 11/29/23 [History Last Taken Unknown] dapagliflozin propanediol 10 mg tablet (Farxiga) 10 mg PO DAILY 11/29/23 [History Last Taken Unknown] metolazone 2.5 mg tablet 5 mg PO DAILY 11/29/23 [History Last Taken Unknown] tramadol 50 mg tablet 50 mg PO Q6H PRN pain 11/29/23 [History Last Taken Unknown] Allergy/AdvReac Type Severity Reaction Status Date / Time metoprolol AdvReac bradycardia Verified 11/29/23 15:09 rivaroxaban [From Xarelto] AdvReac Bleeding Verified 11/29/23 15:09 Family History Father Heart disease Sister Heart disease Brother Heart disease Other Arthritis CVA (cerebral vascular accident) Depression Mental disorder Surgical History History of appendectomy History of cataract extraction History of left heart catheterization (02/19/21) History of transurethral resection of prostate (01/2019) History of ventricular septal myectomy (2000) Hx of umbilical hernia repair Social History Smoking Status: Former smoker how long ago did patient quit smokin years ago 0.25ppd second hand exposure: Yes alcohol intake: never caffeine: Yes Type: coffee Number of servings: 1 what type of physical activity do you participate in: other details: treadmill frequency: daily ROS ROS Narrative Denies any fever or chills. No sore throat or rhinitis. No chest pain. No abdominal pain. All review of systems were negative except as mentioned above in the history of present illness and the other review of systems. Vital Signs Vital Signs Vital Signs: 11/29/23 15:07 11/29/23 15:27 11/29/23 17:05 Temperature 35.6 C L Temperature Source Temporal Pulse Rate 88 64 Respiratory Rate 18 16 Respiratory Pattern Normal Blood Pressure 128/73 H 128/78 H Blood Pressure Mean 91 94 Pulse Ox 98 97 Oxygen Delivery Method Room Air Room Air 11/29/23 17:13 Temperature 36.4 C L Temperature Source Pulse Rate 78 Respiratory Rate 16 Respiratory Pattern Blood Pressure 128/78 H Blood Pressure Mean 94 Pulse Ox 99 Oxygen Delivery Method Weight Weight: 74.5 kg Body Mass Index (BMI) 27.3 Physical Exam Const alert and no apparent distress HEENT normocephalic and head/scalp atraumatic Resp normal respiratory effort, no retractions, no use of accessory muscles and clear to auscultation bilaterally Cardio regular rate, regular rhythm, S1 normal heart sound and S2 normal heart sound GI normal to inspection, nondistended, normoactive bowel sounds, soft to palpation, non-tender, non-distended and hepatosplenomegaly Extremity Extremity Narrative: Patient has swelling of his first MCP with some slight tenderness. Some faint tophi visible under the skin. Does have small hematoma between his index and long finger. Bilateral tophi both elbows. Neuro moves all extremities Sensorium / Orientation: awake Speech: speech normal Psych affect normal Results Lab / Micro Data Attestation: I reviewed the patient's lab results. 11/29/23 15:40 11/29/23 15:40 Labs: Laboratory Results - last 24 hr 11/29/23 15:10: PT 31.1 H, INR 3.0 11/29/23 15:16: POC Glucose 405 H 11/29/23 15:40: WBC 14.8 H, RBC 4.36 L, Hgb 12.2 L, Hct 36.1 L, MCV 82.8, MCH 28.0, MCHC 33.8, RDW Std Deviation 49.4 H, RDW Coeff of Kiersten 16.5 H, Plt Count 335, MPV 11.8, Immature Gran % (Auto) 2.800 H, Neut % (Auto) 87.1 H, Lymph % (Auto) 5.0 L, [place] % (Auto) 4.7, Eos % (Auto) 0.1, Baso % (Auto) 0.3, Absolute Neuts (auto) 12.9 H, Absolute Lymphs (auto) 0.74 L, Nucleated RBC % 0, Sodium 121 L, Potassium 2.7 L*, Chloride 71 L*, Carbon Dioxide 33.0 H, Anion Gap 17 H, BUN 94 H, Creatinine 2.83 H, Estim Creat Clear Calc 19.64, Est GFR (MDRD) Af Amer 28 L, Est GFR (MDRD) Non-Af 23 L, BUN/Creatinine Ratio 33.2 H, Glucose 417 H, Calcium 8.9, Total Bilirubin 0.80, AST 24, ALT 30, Alkaline Phosphatase 107, Troponin I High Sens 197 H*, Total Protein 7.8, Albumin 2.8 L, Globulin 5.0 H, Albumin/Globulin Ratio 0.6 L, Lipase 58, Acetone Level NEGATIVE 11/29/23 16:31: Urine Color Yellow, Urine Clarity Clear, Urine pH 7.0, Ur Specific [place] 1.005, Urine Protein Negative, Urine Glucose (UA) 1000 H, Urine Ketones Negative, Urine Occult Blood Negative, Urine Nitrite Negative, Urine Bilirubin Negative, Urine Urobilinogen Normal, Ur Leukocyte Esterase Negative, Urine RBC 0 SEEN, Urine WBC 0-5 SEEN, Ur Squamous Epith Cells 0-5 SEEN, Amorphous Sediment 2+ PHOS, Urine Bacteria 0 SEEN, Urine Mucus 0 SEEN Micro: Microbiology 11/29/23 15:52 Mucosa - Nasopharyngeal SARS-CoV-2, Influenza & RSV (PCR) - Final EKG Initial EKG: Attestation: I personally reviewed and interpreted this EKG as follows: Prior EKG tracings: available for review EKG Rhythm Intrepretation: Atrial Fibrillation (Left bundle branch block. Unchanged from 10/14/2023.) Imaging Radiology Impression Chest X-Ray 11/29/23 16:10 IMPRESSION: Cardiomegaly. Electronically Signed: Christopher Blanco DO at 17:16 EDT , Assessment & Plan Assessment/Plan (1) Acute hypokalemia: (2) Hyponatremia: (3) Acute hyperglycemia: PLAN: Plan Hyponatremia * May be due to fine depletion but also possible some component of pseudohyponatremia due to the hyperglycemia. Though this seems to be to slowly adjust to the hyperglycemia. Patient received IV fluids emergency room and will give additional liter of IV fluids * Monitor. Hypokalemia * Likely due to torsemide and metolazone * did receive replacement in the emergency room * Check magnesium Suspected CEE * Creatinine 2.85, baseline appears to be around 2.14. * Hold diuretics * IV fluids * Reevaluate. * Patient had been on dialysis but has been off of dialysis for about a month now. Will see how his kidney function goes with IV fluids but if continues to get worse may need to consider involving nephrology Right hand swelling * Clearly patient has a history of gout with notable tophi on his hands and elbows patient was treated for gout with increased prednisone and steroid injection. He does take allopurinol to help treat that. * But with his recent bacteremia, eye involvement, I think would be prudent to make sure that he is not dealing with new infection. Therefore, I have checked a blood culture will check hand x-ray and test normal then an MRI of his hand. As I am unclear if this is an actual infection we will hold off on antibiotics at this point. Elevated troponins * Chronically elevated and lower than last time he was here. Patient has previous seen cardiology who deemed this was due to demand ischemia. Therefore will not consult cardiology at this point in time unless his troponins go up significantly. * Continue to monitor troponins Chronic conditions * Chronic steroid use. Patient is currently hemodynamically stable and therefore I do not feel he has any adrenal insufficiency at this point in time. Will continue with the prednisone 5 mg daily. * Atrial fibrillation: Continue with carvedilol and anticoagulation with warfarin. INR currently is therapeutic at 3 * Hyperlipidemia: Continue with statin * Diabetes mellitus type 2: Continue with dapagliflozin and glargine. Add sliding scale insulin VTE prophylaxis: Not indicated as patient is already anticoagulated CODE STATUS: Addressed with the patient. Patient wished to be DNR Comfort Care arrest no intubation. Case discussed with patient's family at bedside. Charges/Coding Visit Charges Inpatient E&M: 17491 Init Hosp L3
[2023-11-29 18:25] LABS: Troponin-I HS 183 pg/mL (3.0-78.0)
[2023-11-29] MEDS: Hydrocortisone Sod Succinate 100 MG/2 ML Vial IV (18:46)
--- NOTE | 2023-11-29 18:57 | MRI_ITS ---
STUDY: MRI RIGHT HAND REASON FOR EXAM: Male, 78 years old. Right hand edema, proximal phalanx middle finger. TECHNIQUE: Standardized fat and water weighted pulse sequences were obtained in all 3 orthogonal planes. COMPARISON: Right hand radiographs dated 11/29/2023. FINDINGS: Normal flexor tendons, without tear or tenosynovitis. Normal visualized annular aleksandr system. Normal volar plates. Normal extensor tendons, without tendon tear, subluxation or tenosynovitis. Normal sagittal bands and dorsal expansion (hill). There are well-defined marginal erosions with overhanging edges around the third PIP joint, surrounded by intermediate signal within the adjacent soft tissues, denoting gouty tophus. There are additional well-defined marginal erosions with overhanging edges around the second and fourth MCP joints, with surrounding gouty tophi. There is degenerative arthrosis with joint space narrowing of the PIP and DIP joints of the second through fifth fingers. Normal interphalangeal joint of the thumb. Normal muscle groups of the thenar and hypothenar eminences. Normal lumbricalis and interosseous muscles. There are no soft tissue masses or atrophy. MRI/Upper Ext/No Jt/ wo IMPRESSION: Well-defined marginal erosions with overhanging edges around the third PIP joint, as well as second and fourth MCP joints, with surrounding gouty tophi. Degenerative arthrosis with joint space narrowing of the PIP and DIP joints of the second through fifth fingers. Electronically Signed: Juan Manuel Valentine MD at 10:47 EDT ,
--- NOTE | 2023-11-29 19:17 | RAD_ITS ---
INDICATION: EDEMA OF 2ND MCP EXAMINATION/TECHNIQUE: X-RAY - RIGHT XR Hand 2 Views COMPARISON: FINDINGS: SOFT TISSUES: There is soft tissue swelling, especially of the second and third fingers. Vascular calcifications. No radiopaque foreign body. BONES/JOINTS: No acute fracture or subluxation.. Normal alignment. Preservation of the joint space.. Probable cyst at 4 metacarpal head RAD/Hand 2 Views IMPRESSION: Soft tissue swelling. Electronically Signed: Christopher Blanco DO at 20:38 EDT ,
[2023-11-29 19:23] LABS: Magnesium 1.9 mg/dL (1.6-2.6)
[2023-11-29 20:13] VITALS: BMI 27.1
[2023-11-29] MEDS: 0.9% Normal Saline (1000mL) 1,000 ML 150 ML IV (20:13)
[2023-11-29] MEDS: 0.9% Saline Lock 10 ML Syringe IV (20:14)
[2023-11-29 21:41] LABS: Troponin-I HS 170 pg/mL (3.0-78.0)
[2023-11-29 21:52] VITALS: BP 109/57; PULSE 64; RESP 16; TEMP 36.6; O2SAT 97
[2023-11-29] MEDS: Gabapentin 100 MG Capsule 200 MG PO (21:59)
[2023-11-29] MEDS: Atorvastatin Calcium 20 MG Tablet PO (21:59)
[2023-11-29 22:46] LABS: Bedside Glucose 382 mg/dL (74-106)
[2023-11-29] MEDS: Insulin Glargine-YFGN 100 UNIT/ML Pen 25 UNIT SC (22:57)
[2023-11-29] MEDS: Hydrocortisone Sod Succinate 100 MG/2 ML Vial 50 MG IV (22:58)
[2023-11-30 03:40] VITALS: BP 107/69; PULSE 63; RESP 17; TEMP 36.6; O2SAT 97
[2023-11-30 06:47] LABS: Absolute Lymphocyte Count 0.44 X10^3/uL (0.83-4.51); Absolute Neutrophil Count 11.5 X10^3/uL (2.0-7.7); Basophil# 0.04 X10^3/uL; Basophil% 0.3 % (0-1); Hematocrit 30.6 % (40-54); Hemoglobin 9.8 g/dL (13.0-16.5); Lymphocyte # 0.44 X10^3/ul (0.83-4.51); Lymphocyte % 3.5 % (19-41); Mean Corpuscular Hgb 27.1 pg (27.0-32.0); Mean Corpuscular Volume 84.5 fL (80-94); Mean Platelet Vol. 12.1 fl (6.2-12.0); Monocyte# 0.39 X10^3/uL; Monocyte% 3.1 % (0-10); NRBC Flagged by Analyzer 0 % (0-5); Neutrophil # 11.52 X10^3/uL (2.7-7.7); Neutrophil % 90.9 % (47-70); POSITIVE DIFFERENTIAL YES; Platelet Count 306 K/mm3 (150-450); RBC Distribution Width CV 16.8 % (11.6-14.6); RBC Distribution Width SD 51.9 fl (35.1-43.9); Red Blood Count 3.62 M/mm3 (4.6-6.2); White Blood Count 12.7 K/mm3 (4.4-11.0)
[2023-11-30] MEDS: Insulin Lispro 100 UNIT/ML INSULN.PEN SC (06:58)
[2023-11-30] MEDS: Hydrocortisone Sod Succinate 100 MG/2 ML Vial 50 MG IV ×3 (06:58→17:09)
[2023-11-30 07:03] LABS: International Normalized Ratio 2.9; Prothrombin Time (Protime)PT. 30.3 SECONDS (11.7-14.9)
[2023-11-30 07:19] LABS: Bedside Glucose 405 mg/dL (74-106)
[2023-11-30 07:39] LABS: Anion Gap 12 (5-15); BUN 94 mg/dL (7-18); BUN/Creat Ratio 38.1 RATIO (10-20); Calcium,Total 8.6 mg/dL (8.5-10.1); Chloride 83 mmol/L (98-107); Creatinine, Serum 2.47 mg/dL (0.70-1.30); EST Glomerular Filtration Rate 27 mL/min (>60); Est Glom Filt Rate - Afr Amer 33 mL/min (>60); Estimated Creatinine Clearance 20.75 ml/min; Glucose 442 mg/dL (74-106); Potassium 2.6 mmol/L (3.5-5.1); Sodium Level 125 mmol/L (136-145)
[2023-11-30 10:20] VITALS: BP 120/65; PULSE 63; RESP 18; TEMP 36.4; O2SAT 99
[2023-11-30] MEDS: Potassium Chloride Oral Tablet 20 MEQ 60 MEQ PO (10:21)
[2023-11-30] MEDS: Carvedilol 6.25 MG Tablet PO ×2 (10:21→21:03)
[2023-11-30] MEDS: Allopurinol 100 MG Tablet 200 MG PO (10:21)
[2023-11-30] MEDS: Empagliflozin 25 MG Tablet PO (10:24)
[2023-11-30] MEDS: Potassium Chloride Oral Tablet 20 MEQ PO (10:24)
[2023-11-30] MEDS: Aspirin E.C. 81 MG Tablet PO (10:24)
[2023-11-30] MEDS: Potassium Chloride 10mEq/100mL 10 MEQ/100 ML IV.SOLN. 100 MEQ IV BOLUS ×4 (10:24→14:37)
[2023-11-30] MEDS: 0.9% Normal Saline (1000mL) 1,000 ML 125 ML IV ×2 (10:24→18:08)
[2023-11-30] MEDS: Finasteride 5 MG Tablet PO (10:25)
[2023-11-30] MEDS: Pantoprazole Sodium 40 MG Tablet PO (10:25)
[2023-11-30] MEDS: Insulin Glargine-YFGN 100 UNIT/ML Pen 12 UNIT SC (10:30)
--- NOTE | 2023-11-30 11:30 | CASEMGMT ---
RN?CM?PSYCHIATRIC AIDES TEACHER?CM?to room to meet with patient for initial transition planning/care coordination?assessment.?RN?CM?introduced self and role at [facility].? Pt voices understanding and consents to?assessment?at this time.? Pt resting in bed in no distress at this time.? Pt is A/O at this time and answers all questions appropriately.?? Care providers, pharmacy, and demographics verified/updated at this time. PCP: Dr Escobar Specialists:Dr Turk-cardiology, Victorina Teran/FOREST [facility]ER-pulmonology (pt has appt next week), Dr Conner-rheumatology, Dr Barahona and Nunu/FOREST [facility]ER-nephrology Preferred Pharmacy: [facility] Insurance: Pau FLORES Prescription Benefit:?yes Living Will/HPOA:?Pt has LW and HCPOA on file @ [facility] but primary agent listed is Jackie, who was his late who has . He is now re-. Janell is listed as 1st alternative and Ileana is listed as 2nd alternative. . Pt states both Janell and Ileana are both step-dtrs. He states he would like to do new HCPOA. Federica MAI, made aware. LNOK: , Radha. Pt states his only biological adult child is his son, Everardo. He states he has 3 step-kids. 2 step-dtr's are Janell and Ileana. Living Arrangements: Lives w/his , Radha, in condo w/a basement and 1 step to enter. He states he is typically independent w/ADL's, but had to assist w/bathing/dressing yesterday d/t him being weak. Son, Everardo, manages his medications. does most home mgnt tasks. Transportation:?Pt states drives self and states no transportation concerns at this time.? also drives. DME: ?States has the following DME:?shower chair, grab bars, walker, rollator, [facility], pulse ox, BP machine, functioning glucometer w/supplies, sufficient supply of insulin and needles, RTS, lift chairs. Pt does not have home O2. He is currently on RA. ? Pt states no need for further DME at this time.? HHC/SNF: No hx of SNF. He states he currently has HHC, but does not remember name of agency. Call to and she does not remember either and not able to find the paperwork/info. Call to Dr Escobar's office and they stated it is [facility]. Call to [facility] and spoke w/Maria R. She verifies pt is active w/them for SN and PT/OT. [facility] order entered. She was made aware pt has been admitted to [facility] and plans to return home w/[facility]. Pt verified w/this RN CM that he does wish to discharge home w/[facility] and declines wanting list of other HHC agencies. Palliative: Discussed Palliative care w/pt and questions answered. He declines wanting Palliative referral at this time. Pt wishes to return home and states has no concerns with going home at time of discharge.? CM?to follow for any further discharge planning/needs.? Pt voices no further concerns/needs at this time.? Advised pt to ask for?CM?if any further questions/concerns/needs arise.? Voices understanding. PLAN:??Home w/[facility] w/[facility]: SN and PT/OT. Meghan VALVERDEN?RN?CM
[2023-11-30] MEDS: 0.9% Saline Lock 10 ML Syringe IV ×2 (12:00→17:09)
[2023-11-30] MEDS: Insulin Lispro 100 UNIT/ML INSULN.PEN 15 UNIT SC (12:57)
[2023-11-30 13:00] LABS: Bedside Glucose 478 mg/dL (74-106)
--- NOTE | 2023-11-30 14:36 | CHAPLAIN ---
Type of Pastoral Visit _x__ Initial Visit ___ Follow-up Visit ___ On-call Visit ___ General Patient Visit ___ Spiritual Assessment ___ Family Conference ___ Bereavement ___ Rapid Response ___ Code Blue ___ Other (describe below) Pastoral Care Referral From _x__ Patient ___ Family ___ Nurse ___ Physician ___ Lead Ramp Agent ___ Smt Machine Operator ___ Other (describe below) Sacrament/Intervention _x__ Active listening ___ Anointing ___ Evangelical ___ Bereavement ___ Communion ___ Dejah exploration ___ ___ Life review _x__ Prayer ___ Reconciliation ___ Sacrament of Sick _x__ Supportive presence ___ Wedding ___ Other (describe below) Pastoral Comments patient has had some recent health issues and concerns but also has some hope for improvements; spouse is with him; pt requests prayer we can always use prayer; pt is member of a local [employer] for further spiritual care support
--- NOTE | 2023-11-30 15:13 | CASEMGMT ---
Discharge Planning HH resumption referral sent via [facility] to [facility]. Tamika Thomas, Discharge Planning Asst.
--- NOTE | 2023-11-30 16:08 | PN_ITS ---
Subjective Subjective Patient seen and examined. He had no active complaints. Review of systems is otherwise negative. Objective Data Objective Data Vital Signs: Vital Signs Temp Pulse Resp BP Pulse Ox O2 Del Method 97.5 F L 63 18 120/65 99 Room Air 11/30/23 10:20 11/30/23 10:20 11/30/23 10:20 11/30/23 10:20 11/30/23 10:20 11/30/23 14:39 Oxygen Delivery Method Room Air Weight: 162 lb 11.218 oz Body Mass Index (BMI) 27.1 Intake & Output: Intake and Output for Last 24 Hours 11/28/23 11/29/23 11/30/23 23:59 23:59 23:59 Intake Total 1200 / 1200 1895 / 1895 Output Total 850 / 850 1450 / 1450 Balance 350 / 350 445 / 445 Lab / Micro Data 11/30/23 05:45 11/30/23 05:45 Labs: Laboratory Results - last 24 hr 11/29/23 15:10: PT 31.1 H, INR 3.0 11/29/23 15:40: Sodium 121 L, Potassium 2.7 L*, Chloride 71 L*, Carbon Dioxide 33.0 H, Anion Gap 17 H, BUN 94 H, Creatinine 2.83 H, Estim Creat Clear Calc 19.64, Est GFR (MDRD) Af Amer 28 L, Est GFR (MDRD) Non-Af 23 L, BUN/Creatinine Ratio 33.2 H, Glucose 417 H, Calcium 8.9, Total Bilirubin 0.80, AST 24, ALT 30, Alkaline Phosphatase 107, Troponin I High Sens 197 H*, Total Protein 7.8, Albumin 2.8 L, Globulin 5.0 H, Albumin/Globulin Ratio 0.6 L, Lipase 58, Acetone Level NEGATIVE 11/29/23 16:31: Urine Color Yellow, Urine Clarity Clear, Urine pH 7.0, Ur Specific [place] 1.005, Urine Protein Negative, Urine Glucose (UA) 1000 H, Urine Ketones Negative, Urine Occult Blood Negative, Urine Nitrite Negative, Urine Bilirubin Negative, Urine Urobilinogen Normal, Ur Leukocyte Esterase Negative, Urine RBC 0 SEEN, Urine WBC 0-5 SEEN, Ur Squamous Epith Cells 0-5 SEEN, Amorphous Sediment 2+ PHOS, Urine Bacteria 0 SEEN, Urine Mucus 0 SEEN 11/29/23 17:55: Troponin I High Sens 183 H* 11/29/23 18:57: Magnesium 1.9 11/29/23 21:10: Troponin I High Sens 170 H* 11/29/23 21:58: POC Glucose 382 H 11/30/23 05:45: WBC 12.7 H, RBC 3.62 L, Hgb 9.8 L, Hct 30.6 L, MCV 84.5, MCH 27.1, MCHC 32.0 D, RDW Std Deviation 51.9 H, RDW Coeff of Kiersten 16.8 H, Plt Count 306, MPV 12.1 H, Immature Gran % (Auto) 2.200 H, Neut % (Auto) 90.9 H, Lymph % (Auto) 3.5 L, [place] % (Auto) 3.1, Eos % (Auto) 0.0, Baso % (Auto) 0.3, Absolute Neuts (auto) 11.5 H, Absolute Lymphs (auto) 0.44 L, Nucleated RBC % 0, PT 30.3 H , INR 2.9, Sodium 125 L, Potassium 2.6 L*, Chloride 83 L, Carbon Dioxide 30.0, Anion Gap 12, BUN 94 H, Creatinine 2.47 H, Estim Creat Clear Calc 20.75, Est GFR (MDRD) Af Amer 33 L, Est GFR (MDRD) Non-Af 27 L, BUN/Creatinine Ratio 38.1 H, Glucose 442 H, Calcium 8.6 11/30/23 06:41: POC Glucose 405 H 11/30/23 11:03: POC Glucose 478 H* Micro: Microbiology 11/29/23 15:52 Mucosa - Nasopharyngeal SARS-CoV-2, Influenza & RSV (PCR) - Final Radiography Diagnostic Testing: Radiology Impression Chest X-Ray 11/29/23 16:10 IMPRESSION: Cardiomegaly. Electronically Signed: Christopher Blanco DO at 17:16 EDT , Hand X-Ray 11/29/23 19:17 IMPRESSION: Soft tissue swelling. Electronically Signed: Christopher Blanco DO at 20:38 EDT , Physical Exam Const alert, oriented x3 and no apparent distress General Appearance: cooperative and well developed HEENT normocephalic, head/scalp atraumatic, moist oral mucous membranes and oropharynx normal Eyes PERRL and EOMs intact bilaterally Neck no lymphadenopathy and supple Lymph Lymphatic: no lymphadenopathy noted and no lymphedema noted Resp normal respiratory effort, normal air movement and clear to auscultation bilaterally Cardio regular rate, regular rhythm, S1 normal heart sound, S2 normal heart sound and no murmurs GI normal to inspection, nondistended, normoactive bowel sounds, soft to palpation, non-tender and non-distended Extremity normal capillary refill, no clubbing, cyanosis or edema and no calf tenderness General Extremity: no tenderness to palpation of joints or extremities Skin General Skin Exam: no breakdown Neuro CN's II-XII intact bilaterally, no focal motor deficits and no sensory deficits noted Motor Exam: strength 5/5 throughout and general weakness Psych thought process normal and cooperative Appearance: appropriate Assessment & Plan Assessment/Plan (1) Acute hypokalemia: (2) Weakness: PLAN: Plan #Hyponatremia: Continue gentle hydration IV fluids and monitor. Sodium is 125. Hypokalemia: Will replace aggressively and trend. Potassium today is 2.6 #CEE on CKD 3B: Creatinine is 2.47. Was 2.83 on admission. Baseline appears to be around 2.45. There is therefore appears to be more of an CEE on CKD stage III. #Right hand swelling: * Recently did have a flareup of gout but this seems to have improved. * He is on allopurinol. Her recent bacteremia with eye involvement. Blood culture obtained to assess for any infection of his right hand. X-ray did not show any evidence of infection so MRI ordered. MRI done and read is pending. #Elevated troponins: Troponins are chronically elevated. Denies any chest pain. Will monitor. #Atrial fibrillation: On carvedilol. On Coumadin. INR is therapeutic #Hyperlipidemia: On statin #Type 2 diabetes mellitus: On dapagliflozin and glargine. Insulin sliding scale. Accu-Cheks ACHS. DVT prophylaxis: Already on Coumadin Charges/Coding Visit Charges Inpatient E&M: 42618 Subs Hosp L2
[2023-11-30 16:15] VITALS: BP 128/70; PULSE 66; RESP 18; TEMP 36.3; O2SAT 96
[2023-11-30 16:45] LABS: Bedside Glucose 451 mg/dL (74-106)
--- NOTE | 2023-11-30 17:00 | CASEMGMT ---
Social Work Consult received for Advance Directive completion, as current directives indicate patient's late . Per RN CM, the patient is remarried and also has a son, who are not listed on the current directives. Presented to patient's room to complete directives but patient having conversation with Dr. Hernandez. Plan: SW to attempt to meet with patient again at a later time during hospital stay. -BRANDO Fleming
[2023-11-30] MEDS: Insulin Lispro 100 UNIT/ML INSULN.PEN 20 UNIT SC (17:10)
[2023-11-30] MEDS: Jantoven 2 MG Tablet PO (17:10)
[2023-11-30 20:51] VITALS: BP 135/71; PULSE 65; RESP 16; TEMP 36.4; O2SAT 94
[2023-11-30] MEDS: Gabapentin 100 MG Capsule 200 MG PO (21:03)
[2023-11-30] MEDS: Atorvastatin Calcium 20 MG Tablet PO (21:03)
[2023-11-30] MEDS: Insulin Lispro 100 UNIT/ML INSULN.PEN 10 UNIT SC (21:42)
[2023-11-30 22:24] LABS: Bedside Glucose 449 mg/dL (74-106)
[2023-12-01] MEDS: Hydrocortisone Sod Succinate 100 MG/2 ML Vial 50 MG IV ×4 (00:04→23:14)
[2023-12-01] MEDS: 0.9% Saline Lock 10 ML Syringe IV ×4 (00:04→17:04)
[2023-12-01 02:11] VITALS: BP 128/67; PULSE 66; RESP 18; TEMP 36.4; O2SAT 99
[2023-12-01] MEDS: Insulin Lispro 100 UNIT/ML INSULN.PEN SC ×4 (06:38→22:06)
[2023-12-01 07:04] LABS: Bedside Glucose 231 mg/dL (74-106)
[2023-12-01 07:27] LABS: Absolute Lymphocyte Count 0.65 X10^3/uL (0.83-4.51); Absolute Neutrophil Count 18.1 X10^3/uL (2.0-7.7); Basophil# 0.05 X10^3/uL; Basophil% 0.2 % (0-1); Hematocrit 30.8 % (40-54); Hemoglobin 9.7 g/dL (13.0-16.5); Lymphocyte # 0.65 X10^3/ul (0.83-4.51); Lymphocyte % 3.2 % (19-41); Mean Corp Hgb Conc 31.5 g/dL (32-36); Mean Corpuscular Hgb 27.2 pg (27.0-32.0); Mean Corpuscular Volume 86.5 fL (80-94); Mean Platelet Vol. 12.1 fl (6.2-12.0); Monocyte# 0.83 X10^3/uL; Monocyte% 4.1 % (0-10); NRBC Flagged by Analyzer 0 % (0-5); Neutrophil # 18.08 X10^3/uL (2.7-7.7); Platelet Count 329 K/mm3 (150-450); RBC Distribution Width CV 16.8 % (11.6-14.6); RBC Distribution Width SD 52.5 fl (35.1-43.9); Red Blood Count 3.56 M/mm3 (4.6-6.2); White Blood Count 20.1 K/mm3 (4.4-11.0)
[2023-12-01 07:37] LABS: International Normalized Ratio 3.1; Prothrombin Time (Protime)PT. 31.6 SECONDS (11.7-14.9)
[2023-12-01] MEDS: Allopurinol 100 MG Tablet 200 MG PO (08:09)
[2023-12-01] MEDS: Aspirin E.C. 81 MG Tablet PO (08:09)
[2023-12-01] MEDS: Potassium Chloride Oral Tablet 20 MEQ PO (08:09)
[2023-12-01 08:53] LABS: Anion Gap 10 (5-15); BUN 80 mg/dL (7-18); Chloride 96 mmol/L (98-107); Creatinine, Serum 1.95 mg/dL (0.70-1.30); EST Glomerular Filtration Rate 35 mL/min (>60); Est Glom Filt Rate - Afr Amer 43 mL/min (>60); Estimated Creatinine Clearance 26.28 ml/min; Glucose 225 mg/dL (74-106); Potassium 3.1 mmol/L (3.5-5.1); Sodium Level 133 mmol/L (136-145)
[2023-12-01 09:57] VITALS: BP 146/77; PULSE 67; RESP 16; TEMP 36.5; O2SAT 100
[2023-12-01] MEDS: Carvedilol 6.25 MG Tablet PO ×2 (10:04→21:41)
[2023-12-01] MEDS: Empagliflozin 25 MG Tablet PO (10:05)
[2023-12-01] MEDS: Insulin Glargine-YFGN 100 UNIT/ML Pen 18 UNIT SC (10:05)
[2023-12-01] MEDS: Finasteride 5 MG Tablet PO (10:05)
[2023-12-01] MEDS: Pantoprazole Sodium 40 MG Tablet PO (10:06)
[2023-12-01 10:36] LABS: Bedside Glucose 320 mg/dL (74-106)
[2023-12-01 11:55] LABS: Bedside Glucose 337 mg/dL (74-106)
--- NOTE | 2023-12-01 13:43 | PN_ITS ---
Subjective Subjective Patient seen and examined. He had no active complaints today and felt well. Review of systems otherwise negative. He has remained hemodynamically stable. His blood sugars have been elevated so Lantus was increased from 12 units to 18 units today. Objective Data Objective Data Vital Signs: Vital Signs Temp Pulse Resp BP Pulse Ox O2 Del Method 97.7 F L 67 16 146/77 H 100 Room Air 12/01/23 09:57 12/01/23 09:57 12/01/23 09:57 12/01/23 09:57 12/01/23 09:57 12/01/23 09:57 Oxygen Delivery Method Room Air Weight: 162 lb 11.218 oz Body Mass Index (BMI) 27.1 Intake & Output: Intake and Output for Last 24 Hours 11/29/23 11/30/23 12/01/23 23:59 23:59 23:59 Intake Total 1200 / 1200 3321.67 / 3321.67 1000 / 1000 Output Total 850 / 850 2150 / 2150 1600 / 1600 Balance 350 / 350 1171.67 / 1171.67 -600 / -600 Lab / Micro Data 12/01/23 06:25 12/01/23 06:25 Labs: Laboratory Results - last 24 hr 11/30/23 16:19: POC Glucose 451 H* 11/30/23 20:56: POC Glucose 449 H 12/01/23 06:25: WBC 20.1 H, RBC 3.56 L, Hgb 9.7 L, Hct 30.8 L, MCV 86.5, MCH 27.2, MCHC 31.5 L, RDW Std Deviation 52.5 H, RDW Coeff of Kiersten 16.8 H, Plt Count 329, MPV 12.1 H, Immature Gran % (Auto) 2.500 H, Neut % (Auto) 90.0 H, Lymph % (Auto) 3.2 L, [place] % (Auto) 4.1, Eos % (Auto) 0.0, Baso % (Auto) 0.2, Absolute Neuts (auto) 18.1 H, Absolute Lymphs (auto) 0.65 L, Nucleated RBC % 0, PT 31.6 H , INR 3.1, Sodium 133 L, Potassium 3.1 L, Chloride 96 L, Carbon Dioxide 27.0, Anion Gap 10, BUN 80 H, Creatinine 1.95 H, Estim Creat Clear Calc 26.28, Est GFR (MDRD) Af Amer 43 L, Est GFR (MDRD) Non-Af 35 L, BUN/Creatinine Ratio 41.0 H, Glucose 225 H, Calcium 9.0 12/01/23 06:35: POC Glucose 231 H 12/01/23 10:02: POC Glucose 320 H 12/01/23 11:30: POC Glucose 337 H Micro: Microbiology 11/29/23 15:52 Mucosa - Nasopharyngeal SARS-CoV-2, Influenza & RSV (PCR) - Final Radiography Diagnostic Testing: Radiology Impression Upper Extremity MRI 11/29/23 18:57 IMPRESSION: Well-defined marginal erosions with overhanging edges around the third PIP joint, as well as second and fourth MCP joints, with surrounding gouty tophi. Degenerative arthrosis with joint space narrowing of the PIP and DIP joints of the second through fifth fingers. Electronically Signed: Juan Manuel Valentine MD at 10:47 EDT , Physical Exam Const alert, oriented x3 and no apparent distress General Appearance: cooperative and well developed HEENT normocephalic, head/scalp atraumatic, moist oral mucous membranes and oropharynx normal Eyes PERRL and EOMs intact bilaterally Neck no lymphadenopathy and supple Lymph Lymphatic: no lymphadenopathy noted and no lymphedema noted Resp normal respiratory effort, normal air movement, no retractions, no use of accessory muscles and clear to auscultation bilaterally Cardio regular rate, regular rhythm, S1 normal heart sound, S2 normal heart sound and no murmurs GI normal to inspection, nondistended, normoactive bowel sounds, soft to palpation, non-tender, non-distended and hepatosplenomegaly Extremity normal capillary refill, no clubbing, cyanosis or edema and no calf tenderness Extremity Narrative: swelling of MCP has improved. Some faint tophi visible under the skin. Does have small hematoma between his index and middle finger which is improving. Bilateral tophi both elbows. General Extremity: no tenderness to palpation of joints or extremities Skin General Skin Exam: no breakdown Neuro CN's II-XII intact bilaterally, moves all extremities, no focal motor deficits and no sensory deficits noted Sensorium / Orientation: awake Speech: speech normal Motor Exam: strength 5/5 throughout and general weakness Psych thought process normal, cooperative and affect normal Appearance: appropriate Assessment & Plan Assessment/Plan (1) Acute hypokalemia: (2) Weakness: PLAN: Plan #Hyponatremia: Continue gentle hydration IV fluids and monitor. Sodium is up to 133 today. Hypokalemia: Will replace aggressively and trend. Potassium today is 3.1. Will replace and trend. #CEE on CKD 3B: Creatinine is down to 1.95 today. Was 2.47 on admission. Creatinine is lower than baseline. Will continue to monitor. #Right hand swelling: * Recently did have a flareup of gout but this seems to have improved. * He is on allopurinol. Her recent bacteremia with eye involvement. Blood culture obtained to assess for any infection of his right hand. X-ray did not show any evidence of infection so MRI ordered. * MRI of the right hand showed well-defined marginal erosions with overhanging edges around the third PIP joint as well as the second and fourth MCP joints with surrounding gouty tophi admitted degenerative arthrosis with joint space narrowing of the PIP and DIP joints of the second through fifth digits. * Swelling is improving and patient is feeling better. * #Elevated troponins: Troponins are chronically elevated. Denies any chest pain. Will monitor. #Atrial fibrillation: On carvedilol. On Coumadin. Will monitor INR. #Hyperlipidemia: On statin #Type 2 diabetes mellitus: * On dapagliflozin and insulin glargine. * Blood sugars have been elevated as high as nearly 500. * Lantus dose therefore increased to 18 units daily. * Insulin sliding scale. Accu-Cheks ACHS. DVT prophylaxis: Already on Coumadin Charges/Coding Visit Charges Inpatient E&M: 61174 Subs Hosp L2
[2023-12-01 14:59] VITALS: BP 136/76; PULSE 66; RESP 16; TEMP 36.3; O2SAT 99
--- NOTE | 2023-12-01 15:55 | CASEMGMT ---
Social Work Pt completed POA for Healthcare w/SW, put his son Everardo Osman as POA and his daughters Janell and Ileana as the alternates. He chose to not complete LW at this time, states he did this with his medical accountant. SW gave pt the original and copies, and placed a copy on the chart. CARLOS A Deng
[2023-12-01 16:45] LABS: Bedside Glucose 377 mg/dL (74-106)
[2023-12-01] MEDS: Jantoven 2 MG Tablet PO (17:03)
[2023-12-01 21:28] VITALS: BP 129/72; PULSE 67; RESP 16; TEMP 36.6; O2SAT 98
[2023-12-01] MEDS: Atorvastatin Calcium 20 MG Tablet PO (21:41)
[2023-12-01] MEDS: Gabapentin 100 MG Capsule 200 MG PO (21:41)
[2023-12-01] MEDS: Acetaminophen 325 MG Tablet 650 MG PO (21:46)
[2023-12-01] MEDS: Potassium Chloride Oral Tablet 20 MEQ 40 MEQ PO (22:06)
[2023-12-01 22:10] LABS: Bedside Glucose 218 mg/dL (74-106)
--- NOTE | 2023-12-02 01:15 | PCM.HOSP.N ---
Hospitalist Note Patient with frequent pauses on telemetry. K being supplemented. Mag requested. Will place hold on BB therapy for now.
[2023-12-02 01:52] LABS: Magnesium 1.9 mg/dL (1.6-2.6)
[2023-12-02 02:04] LABS: Absolute Lymphocyte Count 0.96 X10^3/uL (0.83-4.51); Absolute Neutrophil Count 16.4 X10^3/uL (2.0-7.7); Basophil# 0.06 X10^3/uL; Basophil% 0.3 % (0-1); Eosinophil# 0.02 X10^3/uL; Eosinophils% 0.1 % (0-5); Hematocrit 28.7 % (40-54); Hemoglobin 9.1 g/dL (13.0-16.5); Lymphocyte # 0.96 X10^3/ul (0.83-4.51); Lymphocyte % 4.9 % (19-41); Mean Corp Hgb Conc 31.7 g/dL (32-36); Mean Corpuscular Hgb 27.3 pg (27.0-32.0); Mean Corpuscular Volume 86.2 fL (80-94); Mean Platelet Vol. 11.8 fl (6.2-12.0); Monocyte# 1.25 X10^3/uL; Monocyte% 6.4 % (0-10); NRBC Flagged by Analyzer 0 % (0-5); Neutrophil # 16.37 X10^3/uL (2.7-7.7); Neutrophil % 83.9 % (47-70); Platelet Count 292 K/mm3 (150-450); RBC Distribution Width CV 16.8 % (11.6-14.6); RBC Distribution Width SD 52.8 fl (35.1-43.9); Red Blood Count 3.33 M/mm3 (4.6-6.2); White Blood Count 19.5 K/mm3 (4.4-11.0)
[2023-12-02 02:09] LABS: Prothrombin Time (Protime)PT. 30.7 SECONDS (11.7-14.9)
[2023-12-02 02:25] LABS: Anion Gap 9 (5-15); BUN 79 mg/dL (7-18); BUN/Creat Ratio 41.8 RATIO (10-20); Calcium,Total 8.9 mg/dL (8.5-10.1); Chloride 97 mmol/L (98-107); Creatinine, Serum 1.89 mg/dL (0.70-1.30); EST Glomerular Filtration Rate 37 mL/min (>60); Est Glom Filt Rate - Afr Amer 44 mL/min (>60); Estimated Creatinine Clearance 27.12 ml/min; Glucose 157 mg/dL (74-106); Sodium Level 136 mmol/L (136-145)
[2023-12-02 03:21] VITALS: BP 115/59; PULSE 66; RESP 16; TEMP 36.3; O2SAT 100
[2023-12-02] MEDS: Hydrocortisone Sod Succinate 100 MG/2 ML Vial 50 MG IV ×3 (06:34→18:49)
[2023-12-02] MEDS: Insulin Lispro 100 UNIT/ML INSULN.PEN SC ×4 (06:35→21:02)
[2023-12-02] MEDS: Potassium Chloride Oral Tablet 20 MEQ 40 MEQ PO (06:41)
[2023-12-02 07:09] LABS: Bedside Glucose 198 mg/dL (74-106)
[2023-12-02] MEDS: Aspirin E.C. 81 MG Tablet PO (08:55)
[2023-12-02] MEDS: Allopurinol 100 MG Tablet 200 MG PO (08:55)
[2023-12-02] MEDS: Potassium Chloride Oral Tablet 20 MEQ PO (08:55)
[2023-12-02] MEDS: Insulin Glargine-YFGN 100 UNIT/ML Pen 18 UNIT SC (09:01)
[2023-12-02] MEDS: Pantoprazole Sodium 40 MG Tablet PO (09:02)
[2023-12-02] MEDS: Finasteride 5 MG Tablet PO (09:02)
[2023-12-02] MEDS: Empagliflozin 25 MG Tablet PO (09:02)
[2023-12-02 09:21] VITALS: BP 127/66; PULSE 70; RESP 16; TEMP 36.6; O2SAT 100
[2023-12-02] MEDS: Potassium Chloride 10mEq/100mL 10 MEQ/100 ML IV.SOLN. 100 MEQ IV BOLUS ×4 (11:36→15:27)
[2023-12-02 12:36] LABS: Bedside Glucose 422 mg/dL (74-106)
--- NOTE | 2023-12-02 12:53 | PN_ITS ---
Subjective Subjective Patient seen and examined. He had no complaints and felt well. He had an uneventful night. Review of systems was otherwise negative. His metoprolol was held yesterday due to pauses per telemetry. Objective Data Objective Data Vital Signs: Vital Signs Temp Pulse Resp BP Pulse Ox O2 Del Method 97.4 F L 66 16 115/59 L 100 Room Air 12/02/23 03:21 12/02/23 03:21 12/02/23 03:21 12/02/23 03:21 12/02/23 03:21 12/02/23 03:21 Oxygen Delivery Method Room Air Weight: 162 lb 11.218 oz Body Mass Index (BMI) 27.1 Intake & Output: Intake and Output for Last 24 Hours 11/30/23 12/01/23 12/02/23 23:59 23:59 23:59 Intake Total 3321.67 / 3321.67 1400 / 1400 100 / 100 Output Total 2150 / 2150 2475 / 2475 500 / 500 Balance 1171.67 / 1171.67 -1075 / -1075 -400 / -400 Lab / Micro Data 12/02/23 01:30 12/02/23 01:30 Labs: Laboratory Results - last 24 hr 12/01/23 16:22: POC Glucose 377 H 12/01/23 21:39: POC Glucose 218 H 12/02/23 01:30: WBC 19.5 H, RBC 3.33 L, Hgb 9.1 L, Hct 28.7 L, MCV 86.2, MCH 27.3, MCHC 31.7 L, RDW Std Deviation 52.8 H, RDW Coeff of Kiersten 16.8 H, Plt Count 292, MPV 11.8, Immature Gran % (Auto) 4.400 H, Neut % (Auto) 83.9 H, Lymph % (Auto) 4.9 L, [place] % (Auto) 6.4, Eos % (Auto) 0.1, Baso % (Auto) 0.3, Absolute Neuts (auto) 16.4 H, Absolute Lymphs (auto) 0.96, Nucleated RBC % 0, PT 30.7 H, INR 3.0, Sodium 136, Potassium 3.0 L, Chloride 97 L, Carbon Dioxide 30.0, Anion Gap 9, BUN 79 H, Creatinine 1.89 H, Estim Creat Clear Calc 27.12, Est GFR (MDRD) Af Amer 44 L, Est GFR (MDRD) Non-Af 37 L, BUN/Creatinine Ratio 41.8 H, Glucose 157 H, Calcium 8.9, Magnesium 1.9 12/02/23 06:33: POC Glucose 198 H 12/02/23 12:19: POC Glucose 422 H Micro: Microbiology 11/29/23 18:28 Blood Culture (Wb) - Anticubital Right Blood Culture - Preliminary No growth in 48 hours. 11/29/23 15:52 Mucosa - Nasopharyngeal SARS-CoV-2, Influenza & RSV (PCR) - Final Physical Exam Const alert, oriented x3 and no apparent distress General Appearance: cooperative and well developed HEENT normocephalic, head/scalp atraumatic, moist oral mucous membranes and oropharynx normal Eyes PERRL and EOMs intact bilaterally Neck no lymphadenopathy and supple Lymph Lymphatic: no lymphadenopathy noted and no lymphedema noted Resp normal respiratory effort, normal air movement, no retractions, no use of accessory muscles and clear to auscultation bilaterally Cardio regular rate, regular rhythm, S1 normal heart sound, S2 normal heart sound and no murmurs GI normal to inspection, nondistended, normoactive bowel sounds, soft to palpation and non-tender Extremity normal capillary refill, no clubbing, cyanosis or edema and no calf tenderness Extremity Narrative: swelling of MCP has improved. Some faint tophi visible under the skin. Does have small hematoma between his index and middle finger which is improving. Bilateral tophi both elbows. General Extremity: no tenderness to palpation of joints or extremities Skin General Skin Exam: no breakdown Neuro CN's II-XII intact bilaterally, moves all extremities, no focal motor deficits and no sensory deficits noted Sensorium / Orientation: awake Speech: speech normal Motor Exam: strength 5/5 throughout and general weakness Psych thought process normal, cooperative and affect normal Appearance: appropriate Assessment & Plan Assessment/Plan (1) Acute hypokalemia: (2) Weakness: PLAN: Plan #Hyponatremia:resolved. Hypokalemia: Will replace aggressively and trend. Potassium today is 3.0. Will replace and trend. #CEE on CKD 3B: Creatinine is down to 1.89 today. Continues to trend downwards. Was 2.47 on admission. Creatinine is lower than baseline. Will continue to monitor. #Right hand swelling: * Recently did have a flareup of gout but this seems to have improved. * He is on allopurinol. Her recent bacteremia with eye involvement. Blood culture obtained to assess for any infection of his right hand. X-ray did not show any evidence of infection so MRI ordered. * MRI of the right hand showed well-defined marginal erosions with overhanging edges around the third PIP joint as well as the second and fourth MCP joints with surrounding gouty tophi admitted degenerative arthrosis with joint space narrowing of the PIP and DIP joints of the second through fifth digits. * Swelling is improving and patient is feeling better. * #Elevated troponins: Troponins are chronically elevated. Denies any chest pain. Will monitor. #Atrial fibrillation: On carvedilol. On Coumadin. Will monitor INR. Carvedilol held due to pauses on telemetry. These pauses are likely due to hypokalemia. #Hyperlipidemia: On statin #Type 2 diabetes mellitus: * On dapagliflozin and insulin glargine. * had been hyperglycemic during admission. * Lantus dose therefore increased to 18 units daily. * Insulin sliding scale. Accu-Cheks ACHS. DVT prophylaxis: Already on Coumadin.INR today is 3. Charges/Coding Visit Charges Inpatient E&M: 66313 Subs Hosp L2
[2023-12-02 15:30] VITALS: BP 120/65; PULSE 69; RESP 16; TEMP 36.7; O2SAT 100
[2023-12-02] MEDS: Jantoven 2 MG Tablet PO (18:49)
[2023-12-02] MEDS: 0.9% Saline Lock 10 ML Syringe IV (18:54)
[2023-12-02 19:00] LABS: Bedside Glucose 301 mg/dL (74-106)
[2023-12-02 20:59] VITALS: BP 160/91; PULSE 68; RESP 16; TEMP 36.7; O2SAT 100
[2023-12-02] MEDS: Atorvastatin Calcium 20 MG Tablet PO (21:03)
[2023-12-02] MEDS: Gabapentin 100 MG Capsule 200 MG PO (21:03)
[2023-12-02 22:44] LABS: Bedside Glucose 301 mg/dL (74-106)
[2023-12-03] MEDS: Hydrocortisone Sod Succinate 100 MG/2 ML Vial 50 MG IV ×3 (00:15→11:43)
[2023-12-03] MEDS: 0.9% Saline Lock 10 ML Syringe IV ×3 (00:15→11:43)
[2023-12-03 03:48] VITALS: BP 114/76; PULSE 68; RESP 18; TEMP 36.6; O2SAT 100
[2023-12-03] MEDS: Insulin Lispro 100 UNIT/ML INSULN.PEN SC ×2 (06:32→11:43)
[2023-12-03 06:56] LABS: Bedside Glucose 233 mg/dL (74-106)
[2023-12-03 07:26] LABS: Hematocrit 30.4 % (40-54); Hemoglobin 9.6 g/dL (13.0-16.5); Mean Corp Hgb Conc 31.6 g/dL (32-36); Mean Corpuscular Hgb 27.4 pg (27.0-32.0); Mean Corpuscular Volume 86.6 fL (80-94); Mean Platelet Vol. 11.6 fl (6.2-12.0); POSITIVE COUNT YES; POSITIVE MORPHOLOGY YES; Platelet Count 274 K/mm3 (150-450); RBC Distribution Width SD 53.4 fl (35.1-43.9); Red Blood Count 3.51 M/mm3 (4.6-6.2); White Blood Count 21.7 K/mm3 (4.4-11.0)
[2023-12-03 07:33] LABS: Differential Indicated MANUAL DIFF
[2023-12-03 07:51] LABS: International Normalized Ratio 2.8; Prothrombin Time (Protime)PT. 29.3 SECONDS (11.7-14.9)
[2023-12-03 08:13] LABS: Anion Gap 9 (5-15); BUN 62 mg/dL (7-18); BUN/Creat Ratio 32.5 RATIO (10-20); Calcium,Total 9.1 mg/dL (8.5-10.1); Chloride 99 mmol/L (98-107); Creatinine, Serum 1.91 mg/dL (0.70-1.30); EST Glomerular Filtration Rate 36 mL/min (>60); Est Glom Filt Rate - Afr Amer 44 mL/min (>60); Estimated Creatinine Clearance 26.83 ml/min; Glucose 238 mg/dL (74-106); Lymphocyte 5 % (19-41); Metamyelocyte 1 % (0-1); Monocyte 2 % (0-10); Neutrophil-Band 4 % (0-5); Neutrophil-Segmented 88 % (47-70); Sodium Level 133 mmol/L (136-145); Total Cells Counted 100 (MANUAL DIFF)
[2023-12-03 08:15] LABS: Absolute Lymphocyte Count 1.09 X10^3/uL (0.83-4.51)
[2023-12-03 09:34] VITALS: BP 158/86; PULSE 70; RESP 18; TEMP 36.3; O2SAT 100
[2023-12-03] MEDS: Insulin Glargine-YFGN 100 UNIT/ML Pen 18 UNIT SC (09:35)
[2023-12-03] MEDS: Pantoprazole Sodium 40 MG Tablet PO (09:36)
[2023-12-03] MEDS: Aspirin E.C. 81 MG Tablet PO (09:36)
[2023-12-03] MEDS: Finasteride 5 MG Tablet PO (09:36)
[2023-12-03] MEDS: Allopurinol 100 MG Tablet 200 MG PO (09:36)
[2023-12-03] MEDS: Potassium Chloride Oral Tablet 20 MEQ PO (09:36)
[2023-12-03] MEDS: Empagliflozin 25 MG Tablet PO (09:36)
[2023-12-03 12:07] LABS: Bedside Glucose 361 mg/dL (74-106)
--- NOTE | 2023-12-03 15:14 | DS.PCM_ITS ---
Providers Date of Admission: 11/29/23 Date of Discharge: 12/03/23 Primary Care Physician: Dr. Howard Escobar, DO Consultations 12/03/23 11:04 Consult: Orthopedics Routine Consulting Provider: Carloz Lowe Reason for Consult: right hand swelling EMERGENT Consult: No MD Notified: Yes Date Notified: 12/03/23 Time Notified: 11:04 Method of Notification: Text Reason For Visit: HYPOKALEMIA Diagnosis Discharge Diagnosis (1) Acute hypokalemia: Status: Acute Code(s): E87.6 - Hypokalemia (2) Weakness: Status: Acute Code(s): R53.1 - Weakness Plan #Hyponatremia:resolved. Hypokalemia: Will replace aggressively and trend. Potassium today is 3.0. Will replace and trend. #CEE on CKD 3B: Creatinine is down to 1.89 today. Continues to trend downwards. Was 2.47 on admission. Creatinine is lower than baseline. Will continue to monitor. #Right hand swelling: * Recently did have a flareup of gout but this seems to have improved. * He is on allopurinol. Her recent bacteremia with eye involvement. Blood culture obtained to assess for any infection of his right hand. X-ray did not show any evidence of infection so MRI ordered. * MRI of the right hand showed well-defined marginal erosions with overhanging edges around the third PIP joint as well as the second and fourth MCP joints with surrounding gouty tophi admitted degenerative arthrosis with joint space narrowing of the PIP and DIP joints of the second through fifth digits. * Swelling is improving and patient is feeling better. * #Elevated troponins: Troponins are chronically elevated. Denies any chest pain. Will monitor. #Atrial fibrillation: On carvedilol. On Coumadin. Will monitor INR. Carvedilol held due to pauses on telemetry. These pauses are likely due to hypokalemia. #Hyperlipidemia: On statin #Type 2 diabetes mellitus: * On dapagliflozin and insulin glargine. * had been hyperglycemic during admission. * Lantus dose therefore increased to 18 units daily. * Insulin sliding scale. Accu-Cheks ACHS. DVT prophylaxis: Already on Coumadin.INR today is 3. Medications at Discharge Home Medications finasteride 5 mg tablet 5 mg PO DAILY prostate 12/19/20 pantoprazole 40 mg tablet,delayed release 40 mg PO DAILY prevent stomach ulcers 08/29/23 allopurinol 100 mg tablet 200 mg (2 x 100 mg) PO DAILYCM #30 tabs 09/03/23 pen needle, diabetic 33 gauge x 3/16 #100 ea 09/03/23 epinephrine 0.3 mg/0.3 mL injection, auto-injector 0.3 mg (0.3 mL) IM Q4H PRN anaphylaxis #2 ea 10/03/23 aspirin 81 mg tablet,delayed release (Adult Aspirin Regimen) 81 mg PO DAILY 11/10/23 atorvastatin 20 mg tablet 20 mg PO DAILY #90 tabs 11/10/23 insulin lispro 100 unit/mL subcutaneous pen 20 unit subcut QAC 11/10/23 mecobalamin (vitamin B12) 10,000 mcg solution for injection 100 mcg IM DAILY PRN SUPPLEMENT 11/10/23 prednisolone acetate 1 % eye drops,suspension 1 drp ophthalmic (eye) ONCE 11/10/23 prednisone 5 mg tablet 5 mg PO QDAY 11/10/23 warfarin 2.5 mg tablet 2 mg PO DAILY blood thinner 11/10/23 carvedilol 6.25 mg tablet 6.25 mg PO BID #180 tabs 11/11/23 gabapentin 100 mg capsule 200 mg PO QHS started per Dr. Conner: not sure of dose. 11/17/23 metolazone 5 mg tablet 5 mg PO DAILY started by Dr. Barahona Neph[facility] 11/17/23 potassium chloride 20 mEq tablet,extended release 20 meq PO DAILY started by Dr. Barahona nephrology 11/17/23 torsemide 20 mg tablet 40 mg PO .COMPLEX 11/17/23 chlorpheniramine-pseudoephedrine 4 mg-60 mg tablet 1 tab PO Q6H 11/29/23 dapagliflozin propanediol 10 mg tablet (Farxiga) 10 mg PO DAILY 11/29/23 metolazone 2.5 mg tablet 5 mg PO DAILY 11/29/23 tramadol 50 mg tablet 50 mg PO Q6H PRN pain 11/29/23 insulin glargine-yfgn 100 unit/mL (3 mL) subcutaneous pen 18 unit (0.18 mL) subcut DAILY #15 mL 12/03/23 Hospital Course Operations None Procedures None Summary of Care Provided Minutes Spent on Discharge: 45 Hospital Course: Patient is an 78-year-old male with a past medical history as outlined who was admitted through the ED on 11/29/2023 with a complaint of weakness and hyperglycemia. He had had a recent gout flareup in the first MCP of his right hand and received a steroid shot and was placed on a burst of p.o. prednisone. His blood sugars went up going into the 400s and 500s. He started feeling weak and this persisted so he came into the ED. He was found to be hypokalemic with potassium of 2.7. Sodium was also 121 and troponins were 197. He had been treated for MRSA bacteremia in the month prior to admission after he was transferred to [facility] for MRSA bacteremia and found to have an infected tunneled dialysis catheter. He also had involvement of his eye and required an injection into his eye by ophthalmology. He had subsequently completed a course of IV antibiotics at home. He had not required dialysis since that time. He was admitted and managed for acute hyperglycemia likely induced by steroids. His hyponatremia resolved with fluid administration. Hypokalemia also resolved with aggressive replacement. He was suspected to have CEE on CKD which subsequently improved with fluids also. Due to patient's recent history of bacteremia, an MRI was ordered of his right hand to make sure there was no infection. MRI of the right hand showed MRI of the right hand bryanna wed well-defined marginal erosions with overhanging edges around the third PIP joint as well as the second and fourth MCP joints with surrounding gouty tophi admitted degenerative arthrosis with joint space narrowing of the PIP and DIP joints of the second through fifth digits. Patient had requested for orthopedic consult for his hand. Dr. Christiansen was consulted but patient insisted on going home and did not want to wait until he was seen by orthopedics. Was therefore counseled to follow-up with orthopedics on outpatient basis. Patient was discharged home on 12/03/1912/19/2023. Hypokalemia and hyponatremia had resolved. His Lantus was increased to 18 units daily. He is to follow-up with his primary care doctor within 1 to 2 weeks. Patient seen and examined prior to discharge. He had no active complaints and had an uneventful night. Review of systems otherwise negative. Labs and vitals reviewed. Home medication reviewed and reconciled. Physical Exam Const alert, oriented x3 and no apparent distress General Appearance: cooperative, comfortable, well kempt and well developed Orientation / Consciousness: awake HEENT normocephalic, head/scalp atraumatic, hearing grossly normal bilaterally, moist oral mucous membranes and oropharynx normal Mouth: oral and palatal mucosa normal Eyes PERRL and EOMs intact bilaterally Neck no lymphadenopathy and supple Lymph Lymphatic: no lymphadenopathy noted and no lymphedema noted Resp normal respiratory effort, normal air movement, no retractions, no use of accessory muscles and clear to auscultation bilaterally Cardio regular rate, regular rhythm, S1 normal heart sound, S2 normal heart sound and no murmurs GI normal to inspection, nondistended, normoactive bowel sounds, soft to palpation, non-tender, non-distended and hepatosplenomegaly Extremity normal capillary refill, no clubbing, cyanosis or edema and no calf tenderness Extremity Narrative: swelling of MCP has improved. Some faint tophi visible under the skin. Does have small hematoma between his index and middle finger which is improving. Bilateral tophi both elbows. General Extremity: no tenderness to palpation of joints or extremities Skin General Skin Exam: no breakdown Neuro CN's II-XII intact bilaterally, moves all extremities, no focal motor deficits and no sensory deficits noted Sensorium / Orientation: awake Speech: speech normal Motor Exam: strength 5/5 throughout and general weakness Psych thought process normal, cooperative and affect normal Appearance: appropriate Weight / BMI Weight Weight: 162 lb 11.218 oz Body Mass Index (BMI) 27.1 ABG / Lab / Microbiology Data 12/03/23 06:40 12/03/23 06:40 Laboratory: Laboratory Results - last 24 hr 12/02/23 18:42: POC Glucose 301 H 12/02/23 21:00: POC Glucose 301 H 12/03/23 06:30: POC Glucose 233 H 12/03/23 06:40: WBC 21.7 H, RBC 3.51 L, Hgb 9.6 L, Hct 30.4 L, MCV 86.6, MCH 27.4, MCHC 31.6 L, RDW Std Deviation 53.4 H, RDW Coeff of Kiersten 17.0 H, Plt Count 274, MPV 11.6, Neut % (Auto) Not Reportable, Absolute Neuts (auto) 20.0 H, Absolute Lymphs (auto) 1.09, Total Counted 100, Neutrophils % (Manual) 88 H, Band Neutrophils % 4, Lymphocytes % (Manual) 5 L, Monocytes % (Manual) 2, Metamyelocytes % 1, Diff Path Review December foll, PT 29.3 H, INR 2.8, Sodium 133 L, Potassium 4.0, Chloride 99, Carbon Dioxide 25.0, Anion Gap 9, BUN 62 H, Creatinine 1.91 H, Estim Creat Clear Calc 26.83, Est GFR (MDRD) Af Amer 44 L, Est GFR (MDRD) Non-Af 36 L, BUN/Creatinine Ratio 32.5 H, Glucose 238 H, Calcium 9.1 12/03/23 11:42: POC Glucose 361 H Microbiology: Microbiology 11/29/23 18:28 Blood Culture (Wb) - Anticubital Right Blood Culture - Preliminary No growth in 48 hours. 11/29/23 15:52 Mucosa - Nasopharyngeal SARS-CoV-2, Influenza & RSV (PCR) - Final D/C Instructions Discharge Diet: Low fat / Low cholesterol and 1800 Calorie Control Diet Weight Bearing Status: Weight bearing as tolerated Call your doctor if you observe: Fever of 101 or Higher, Shortness of breath, Dizziness, Swelling in the ankles and Chest pain Meaningful Use Info Meaningful Use Diagnoses (Choose all that apply): None applicable Discharge Plan Admission Admit Date/Time: 11/29/23 17:08 Primary Reason for Your Visit: weakness, hyperglycemia Attending Provider: Snehal Hernandez Primary Care Provider: Howard Escobar Consulting Providers: Gurdeep De Luna; Carloz Lowe Instructions Patient Instructions: Hypokalemia Dc Discharge Orders/Prescriptions Prescriptions: Continued finasteride 5 mg tablet 5 mg PO DAILY Patient Comments: TAKE 1 TABLET BY MOUTH ONCE DAILY aspirin [Adult Aspirin Regimen] 81 mg tablet,delayed release (DR/EC) 81 mg PO DAILY prednisone 5 mg tablet 5 mg PO QDAY insulin lispro 100 unit/mL insulin pen 20 unit subcut QAC prednisolone acetate 1 % drops,suspension 1 drp ophthalmic (eye) ONCE mecobalamin (vitamin B12) 10,000 mcg recon soln 100 mcg IM DAILY PRN Rx Instructions: 1,000 mcg intramuscularly ONCE A MONTH; FIRST OF THE MONTH atorvastatin 20 mg tablet 20 mg PO DAILY Qty: 90 3RF torsemide 20 mg tablet 40 mg PO .COMPLEX Rx Instructions: 40 mg orally; 40mg in AM & 40mg PM warfarin 2.5 mg tablet 2 mg PO DAILY Rx Instructions: 2 mg daily per patient's home med list pantoprazole 40 mg tablet,delayed release (DR/EC) 40 mg PO DAILY allopurinol 100 mg Tablet 200 mg PO DAILYCM Qty: 30 0RF (DME) pen needle, diabetic 33 gauge x 3/16 needle See Rx Instructions .Route Qty: 100 0RF Rx Instructions: As directed epinephrine 0.3 mg/0.3 mL auto-injector 0.3 mg IM Q4H PRN (Reason: anaphylaxis) Qty: 2 0RF metolazone 2.5 mg tablet 5 mg PO DAILY tramadol 50 mg tablet 50 mg PO Q6H PRN (Reason: pain) dapagliflozin propanediol [Farxiga] 10 mg tablet 10 mg PO DAILY chlorpheniramine-pseudoephed 4-60 mg tablet 1 tab PO Q6H carvedilol 6.25 mg tablet 6.25 mg PO BID Qty: 180 3RF metolazone 5 mg tablet 5 mg PO DAILY potassium chloride 20 mEq tablet extended release 20 meq PO DAILY gabapentin 100 mg capsule 200 mg PO QHS Changed insulin glargine-yfgn 100 unit/mL (3 mL) insulin pen 18 unit subcut DAILY Qty: 15 2RF Referrals / Follow Up: Howard Escobar DO [Primary Care Provider] - Within 2 Weeks (Please call the office Thursday12-04-23 to schedule an appt. ) Carloz Lowe MD [Med Staff - Active Staff] - 12/10/23 1:15 pm (Please bring your ID and Insurance card. ) Disposition Disposition (needs filled in before D/C Order can be placed): Home Health Service Charges/Coding Visit Charges Inpatient E&M: 06996 Disch Hosp >30min
[2023-12-03 15:31] VITALS: BP 156/83; PULSE 70; RESP 18; TEMP 36.4; O2SAT 100
[2023-12-03] MEDS: Jantoven 2 MG Tablet PO (15:32)
[2023-12-03] MEDS: Carvedilol 6.25 MG Tablet PO (15:33)
--- NOTE | 2023-12-03 15:58 | CASEMGMT ---
Patient has order for discharge. RN CM in to discuss needs at discharge. Patient to discharge home with resumption of HHC with [facility]. Patient denies further needs or help at home. Patient and had no further questions or concerns.
[2023-12-04 13:04] LABS: Pathologist Review Reviewed
== END 2023-12-03 16:23 | disposition home health service (06) | DRG 641 ==
LOC: ED 17:15 → PCU 17:33
PROVIDERS: Family Medicine; Nurse Practitioner; Emergency Provider Emergency Medicine; PCP Family Medicine; Visit Provider Student in an Organized Health Care Education/Training Program
DX: E87.1 Hypo-osmolality and hyponatremia (principal); I24.89 Other forms of acute ischemic heart disease; I42.2 Other hypertrophic cardiomyopathy; I13.0 Hypertensive heart and chronic kidney disease with heart failure and stage 1 through stage 4 chronic kidney disease, or unspecified chronic kidney disease; N17.9 Acute kidney failure, unspecified; I50.42 Chronic combined systolic (congestive) and diastolic (congestive) heart failure; I48.20 Chronic atrial fibrillation, unspecified; N18.4 Chronic kidney disease, stage 4 (severe); E11.22 Type 2 diabetes mellitus with diabetic chronic kidney disease; B95.62 Methicillin resistant Staphylococcus aureus infection as the cause of diseases classified elsewhere; E86.0 Dehydration; E11.65 Type 2 diabetes mellitus with hyperglycemia; E11.51 Type 2 diabetes mellitus with diabetic peripheral angiopathy without gangrene; Z79.4 Long term (current) use of insulin; M10.09 Idiopathic gout, multiple sites; M19.90 Unspecified osteoarthritis, unspecified site; E78.5 Hyperlipidemia, unspecified; E87.6 Hypokalemia; I25.10 Atherosclerotic heart disease of native coronary artery without angina pectoris; I25.2 Old myocardial infarction; Z79.01 Long term (current) use of anticoagulants; Z82.3 Family history of stroke; Z87.891 Personal history of nicotine dependence
CPT/HCPCS: 36415; 71046; 73120; 73218; 80048; 80053; 81001; 82009; 82962; 83690; 83735; 84484; 85025; 85610; 87040; 87631; 93005; 97161; 97165; 99284; J7030; A4216

== ENCOUNTER 2023-12-06 11:14 | Emergency (ER) | payer MEDICARE, BC, SELFPAY ==
[2023-12-06 11:14] VITALS: BP 139/70; PULSE 57; RESP 18; TEMP 36.3; O2SAT 98; BMI 28.6
--- NOTE | 2023-12-06 11:22 | RAD_ITS ---
INDICATION: weakness EXAMINATION/TECHNIQUE: X-RAY - XR Chest 1 View COMPARISON: October 03, 2023 FINDINGS: LINES/DEVICES: None. LUNGS: No consolidation, edema or effusion. No pneumothorax. MEDIASTINUM AND CARDIOVASCULAR STRUCTURES: There are sternotomy wires. There is cardiomegaly. Central airways and mediastinal contour are unremarkable. BONES AND SOFT TISSUES: Unremarkable. RAD/Chest 1 View (Portable) IMPRESSION: Cardiomegaly. Electronically Signed: Earline Sanchez MD at 12:41 EDT ,
--- NOTE | 2023-12-06 11:36 | EX.ED.DYSGE1 ---
HPI <LAURE Murry - Last Filed: 12/06/23 13:12> History of Present Illness Chief Complaint: Hyperglycemia Narrative Narrative: 78-year-old male with past medical history including DM2, A-fib, CHF, CKD, arthritis on prednisone 5 mg daily presents with generalized achiness especially in both knees. Patient was admitted from 11/28 through 12/02 for hyperglycemia and electrolyte abnormalities. At discharge his Lantus was increased to 18 units daily. Patient states for about a day he was feeling well but then started to ache all over. Yesterday he seemed shaky while his son was trimming his nails and his thought he was shaky in bed. This morning he was sitting on his rollator in the kitchen and he started to shake and extended both his arms overhead for about a minute. She states his eyes were closed during this and after it ended he was normal. He had no generalized convulsions, no tongue bite or incontinence. This morning after speaking with his primary care doctor he increased the Lantus more to 22 units and he doubled his potassium tablets (40 mEq instead of 20). He denies fever, cough, N/V/D, chest pain or shortness of breath since discharge. [facility] <LAURE Murry - Last Filed: 12/06/23 13:12> [facility] Medical History Abnormal ankle brachial index (LOKI) Acute hypoxic respiratory failure Anemia due to stage 3b chronic kidney disease Back pain BPH (benign prostatic hyperplasia) Cardiology follow-up encounter CHF NYHA class III Chronic combined systolic and diastolic CHF (congestive heart failure) Chronic kidney disease, stage 3b Chronic kidney disease, stage 4 (severe) Claudication Constipation CPAP (continuous positive airway pressure) dependence Diabetes Diarrhea Dietary restriction Elevated troponin (01/2021) Essential (primary) hypertension Gout Heartburn History of echocardiogram History of edema History of irregular heartbeat History of non-ST elevation myocardial infarction (NSTEMI) (07/25/21) History of pain when walking History of steroid therapy History of tobacco use HLD (hyperlipidemia) Hypertension Hypertrophic cardiomyopathy Hypokalemia Joint pain Lactic acidosis Left bundle branch block Leg cramps Leukocytosis Longstanding persistent atrial fibrillation Mitral valve insufficiency Night sweats 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 Obesity (BMI 30.0-34.9) KIMBERLY (obstructive sleep apnea) Persistent atrial fibrillation Poor appetite Presence of implantable pulmonary artery pressure and heart rate monitoring system (03/25/21) Renal infarct Restless legs Secondary pulmonary arterial hypertension Shortness of breath on exertion Wears glasses Home Medications finasteride 5 mg tablet 5 mg PO DAILY prostate 12/19/20 [History Last Taken 12/22/20] pantoprazole 40 mg tablet,delayed release 40 mg PO DAILY prevent stomach ulcers 08/29/23 [History Last Taken Unknown] allopurinol 100 mg tablet 200 mg (2 x 100 mg) PO DAILYCM #30 tabs 09/03/23 [Rx Last Taken Unknown] pen needle, diabetic 33 gauge x /16 #100 ea 09/03/23 [Rx Last Taken Unknown] epinephrine 0.3 mg/0.3 mL injection, auto-injector 0.3 mg (0.3 mL) IM Q4H PRN anaphylaxis #2 ea 10/03/23 [Rx Last Taken Unknown] aspirin 81 mg tablet,delayed release (Adult Aspirin Regimen) 81 mg PO DAILY 11/10/23 [History Last Taken Unknown] atorvastatin 20 mg tablet 20 mg PO DAILY #90 tabs 11/10/23 [Rx Last Taken Unknown] insulin lispro 100 unit/mL subcutaneous pen 20 unit subcut QAC 11/10/23 [History Last Taken Unknown] mecobalamin (vitamin B12) 10,000 mcg solution for injection 100 mcg IM DAILY PRN SUPPLEMENT 11/10/23 [History Last Taken Unknown] prednisolone acetate 1 % eye drops,suspension 1 drp ophthalmic (eye) ONCE 11/10/23 [History Last Taken Unknown] prednisone 5 mg tablet 5 mg PO QDAY 11/10/23 [History Last Taken Unknown] warfarin 2.5 mg tablet 2 mg PO DAILY blood thinner 11/10/23 [History Last Taken Unknown] carvedilol 6.25 mg tablet 6.25 mg PO BID #180 tabs 11/11/23 [Rx Last Taken Unknown] gabapentin 100 mg capsule 200 mg PO QHS started per Dr. Conner: not sure of dose. 11/17/23 [History Last Taken Unknown] metolazone 5 mg tablet 5 mg PO DAILY started by Dr. [facility] 11/17/23 [History Last Taken Unknown] potassium chloride 20 mEq tablet,extended release 20 meq PO DAILY started by Dr. Barahona nephrology 11/17/23 [History Last Taken Unknown] torsemide 20 mg tablet 40 mg PO .COMPLEX 11/17/23 [History Last Taken Unknown] chlorpheniramine-pseudoephedrine 4 mg-60 mg tablet 1 tab PO Q6H 11/29/23 [History Last Taken Unknown] dapagliflozin propanediol 10 mg tablet (Farxiga) 10 mg PO DAILY 11/29/23 [History Last Taken Unknown] metolazone 2.5 mg tablet 5 mg PO DAILY 11/29/23 [History Last Taken Unknown] tramadol 50 mg tablet 50 mg PO Q6H PRN pain 11/29/23 [History Last Taken Unknown] insulin glargine-yfgn 100 unit/mL (3 mL) subcutaneous pen 18 unit (0.18 mL) subcut DAILY #15 mL 12/03/23 [Rx Last Taken Unknown] bumetanide 1 mg tablet 1 mg PO BID 12/06/23 [History Last Taken Unknown] warfarin 5 mg tablet mg PO 12/06/23 [History Last Taken Unknown] Allergy/AdvReac Type Severity Reaction Status Date / Time metoprolol AdvReac bradycardia Verified 12/06/23 11:16 rivaroxaban [From Xarelto] AdvReac Bleeding Verified 12/06/23 11:16 Family History Father Heart disease Sister Heart disease Brother Heart disease Other Arthritis CVA (cerebral vascular accident) Depression Mental disorder Surgical History History of appendectomy History of cataract extraction History of left heart catheterization (02/19/21) History of transurethral resection of prostate (01/2019) History of ventricular septal myectomy (2000) Hx of umbilical hernia repair Social History Smoking Status: Never smoker how long ago did patient quit smokin years ago 0.25ppd second hand exposure: Yes alcohol intake: never caffeine: Yes Type: coffee Number of servings: 1 what type of physical activity do you participate in: other details: treadmill frequency: daily ROS <LAURE Murry - Last Filed: 12/06/23 13:12> ROS ED ROS Narrative Constitutional: Negative for fever, chills, malaise. CVS: Negative for chest pain. Respiratory: Negative for shortness of breath, cough. GI: Negative for abdominal pain, nausea, vomiting, diarrhea. : Negative for dysuria. Neuro: Negative for headache. EXAM <LAURE Murry - Last Filed: 12/06/23 13:12> Physical Exam Narrative Exam Narrative: CONST: Patient sitting in no acute distress. EYES: Normal inspection. NECK: Normal inspection. RESP: No respiratory distress, CTAB. CVS: Regular rate and rhythm, no murmur, no gallop. ABD: Soft and nontender, no guarding or rebound, nondistended. SKIN: Color normal, no rash, warm, dry, intact. EXTREMITIES: Right hand swollen from gout, otherwise normal appearance. NEURO: Alert and answering questions appropriately. PSYCH: Normal affect. Const Vital Signs: 12/06/23 11:14 12/06/23 11:26 12/06/23 13:22 Temperature 97.3 F L 98.1 F Temperature Source Temporal Pulse Rate 57 L 81 Respiratory Rate 18 16 Respiratory Effort Normal Respiratory Pattern Normal Blood Pressure 139/70 H 136/72 H Blood Pressure Mean 93 93 Pulse Ox 98 97 Oxygen Delivery Method Room Air <Dr. Isrrael Colon DO - Last Filed: 12/06/23 15:24> Physical Exam Const Vital Signs: 12/06/23 11:14 12/06/23 11:26 12/06/23 13:22 Temperature 97.3 F L 98.1 F Temperature Source Temporal Pulse Rate 57 L 81 Respiratory Rate 18 16 Respiratory Effort Normal Respiratory Pattern Normal Blood Pressure 139/70 H 136/72 H Blood Pressure Mean 93 93 Pulse Ox 98 97 Oxygen Delivery Method Room Air MDM <LAURE Murry - Last Filed: 12/06/23 13:12> [facility] [place] MDM Narrative Medical decision making narrative: History gathered from: Patient, family Differential for his body aches include viral illness, electrolyte abnormality, no evidence of infectious process Patient presents with bodyaches and bilateral knee pain. He appears well and nontoxic. Vital signs stable. Overall his exam is unremarkable. His right hand is still swollen from gout but he states it has not changed since discharge. I do not appreciate any abnormalities of his knees. He has full range of motion and is neurovascularly intact. Labs show chronic leukocytosis at 23.0 probably from his chronic prednisone use. Hemoglobin of 11.3 is higher than previous. Sodium slightly lower at 126 but potassium normal at 3.5. BUN 80, creatinine 2.27 (previously 1.91). Glucose is 367 with no evidence of DKA. He was treated with IV 500 cc bolus and Tylenol for his body aches. COVID/flu/RSV swab is negative. CXR and UA showed no evidence of infection. I am not sure what is causing the patient's generalized bodyaches but it is possible he is developing a viral illness. I recommended Tylenol and monitoring. I do not think he requires admission for his electrolyte abnormalities as they are minimally changed from previous and he states he has blood work ordered from his primary care doctor in 2 days. His PCP is also adjusting his diabetic medications for better control. I discussed return precautions and he was discharged in stable condition. Lab Data Attestation: I reviewed the patient's lab results. Labs: Laboratory Results - last 24 hr 12/06/23 12/06/23 12/06/23 11:25 11:35 11:55 WBC 23.0 H RBC 4.09 L Hgb 11.3 L Hct 35.1 L MCV 85.8 MCH 27.6 MCHC 32.2 RDW Std Deviation 53.9 H RDW Coeff of Kiersten 17.2 H Plt Count 248 MPV 11.9 Neut % (Auto) Not Reportable Absolute Neuts (auto) 21.2 H Absolute Lymphs (auto) 0.46 L Total Counted 100 Neutrophils % (Manual) 91 H Band Neutrophils % 1 Lymphocytes % (Manual) 2 L Monocytes % (Manual) 1 Metamyelocytes % 4 H Myelocytes % 1 H Diff Path Review May foll Platelet Estimate ADEQUATE RBC Morphology NORM C+C Sodium 126 L Potassium 3.5 Chloride 81 L Carbon Dioxide 33.0 H Anion Gap 12 BUN 80 H Creatinine 2.27 H Estim Creat Clear Calc 25.00 Est GFR (MDRD) Af Amer 36 L Est GFR (MDRD) Non-Af 30 L BUN/Creatinine Ratio 35.2 H Glucose 367 H Calcium 9.2 Urine Color Yellow Urine Clarity Clear Urine pH 7.0 Ur Specific [place] 1.010 Urine Protein Negative Urine Glucose (UA) 1000 H Urine Ketones Negative Urine Occult Blood Negative Urine Nitrite Negative Urine Bilirubin Negative Urine Urobilinogen Normal Ur Leukocyte Esterase Negative Urine RBC 0 SEEN Urine WBC 0 SEEN Ur Squamous Epith Cells 0 SEEN Urine Bacteria 0 SEEN Urine Mucus 0 SEEN Acetone Level NEGATIVE POC Glucose 360 H Radiography Diagnostic Testing: Clinical Impression(s) from Imaging Studies Chest X-Ray 12/06/23 11:22 IMPRESSION: Cardiomegaly. Electronically Signed: Earline Sanchez MD at 12:41 EDT , ED attending interpretation of 1 view chest x-ray shows cardiomegaly, no acute infiltrate or edema. <Dr. Isrrael Colon, DO - Last Filed: 12/06/23 15:24> [facility] [place] MDM Narrative Medical decision making narrative: History gathered from: Patient, family Differential for his body aches include viral illness, electrolyte abnormality, no evidence of infectious process Patient presents with bodyaches and bilateral knee pain. He appears well and nontoxic. Vital signs stable. Overall his exam is unremarkable. His right hand is still swollen from gout but he states it has not changed since discharge. I do not appreciate any abnormalities of his knees. He has full range of motion and is neurovascularly intact. Labs show chronic leukocytosis at 23.0 probably from his chronic prednisone use. Hemoglobin of 11.3 is higher than previous. Sodium slightly lower at 126 but potassium normal at 3.5. BUN 80, creatinine 2.27 (previously 1.91). Glucose is 367 with no evidence of DKA. He was treated with IV 500 cc bolus and Tylenol for his body aches. COVID/flu/RSV swab is negative. CXR and UA showed no evidence of infection. I am not sure what is causing the patient's generalized bodyaches but it is possible he is developing a viral illness. I recommended Tylenol and monitoring. I do not think he requires admission for his electrolyte abnormalities as they are minimally changed from previous and he states he has blood work ordered from his primary care doctor in 2 days. His PCP is also adjusting his diabetic medications for better control. I discussed return precautions and he was discharged in stable condition. This patient was seen with a PA/CANINE DEPUTY Individually assessed they patient including history and physical. I have reviewed everything on the chart that is available and agree with the documentation provided by the PA/CANINE DEPUTY including discussion about the assessment, treatment plan, discussion, and return precautions. Patient presenting with multiple complaints. Patient recently admitted and all lab work and imaging was reviewed. Blood work today shows that he is hyponatremic slightly. His glucose is elevated at 367 but this is not new either. His Lantus has been increased this morning by his son following recommendations of his primary doctor. They understand that the blood sugar will immediately respond with this. Patient concerned he still having bodyaches and knee pain. Blood work is obtained and he has a leukocytosis however he always has a leukocytosis. This is not new. Hemoglobin stable at 11.3. No left shift. Glucose again 367 without anion gap. Urinalysis negative. Acetone negative. COVID, flu, RSV are all negative. Patient was given 500 cc of IV fluids. We discussed gout diet, diabetic diet. Return precautions were discussed. Lab Data Labs: Laboratory Results - last 24 hr 12/06/23 12/06/23 12/06/23 11:25 11:35 11:55 WBC 23.0 H RBC 4.09 L Hgb 11.3 L Hct 35.1 L MCV 85.8 MCH 27.6 MCHC 32.2 RDW Std Deviation 53.9 H RDW Coeff of Kiersten 17.2 H Plt Count 248 MPV 11.9 Neut % (Auto) Not Reportable Absolute Neuts (auto) 21.2 H Absolute Lymphs (auto) 0.46 L Total Counted 100 Neutrophils % (Manual) 91 H Band Neutrophils % 1 Lymphocytes % (Manual) 2 L Monocytes % (Manual) 1 Metamyelocytes % 4 H Myelocytes % 1 H Diff Path Review May foll Platelet Estimate ADEQUATE RBC Morphology NORM C+C Sodium 126 L Potassium 3.5 Chloride 81 L Carbon Dioxide 33.0 H Anion Gap 12 BUN 80 H Creatinine 2.27 H Estim Creat Clear Calc 25.00 Est GFR (MDRD) Af Amer 36 L Est GFR (MDRD) Non-Af 30 L BUN/Creatinine Ratio 35.2 H Glucose 367 H Calcium 9.2 Urine Color Yellow Urine Clarity Clear Urine pH 7.0 Ur Specific [place] 1.010 Urine Protein Negative Urine Glucose (UA) 1000 H Urine Ketones Negative Urine Occult Blood Negative Urine Nitrite Negative Urine Bilirubin Negative Urine Urobilinogen Normal Ur Leukocyte Esterase Negative Urine RBC 0 SEEN Urine WBC 0 SEEN Ur Squamous Epith Cells 0 SEEN Urine Bacteria 0 SEEN Urine Mucus 0 SEEN Acetone Level NEGATIVE POC Glucose 360 H Radiography Diagnostic Testing: Clinical Impression(s) from Imaging Studies Chest X-Ray 12/06/23 11:22 IMPRESSION: Cardiomegaly. Electronically Signed: Earline Sanchez MD at 12:41 EDT , Discharge Plan Triage Chief Complaint: Hyperglycemia ED Midlevel Provider: Maria R Hicks ED Provider: Isrrael Colon Dx/Rx/DC Orders Clinical Impression: Myalgia, H/O leukocytosis, Chronic kidney disease, Hyponatremia, Chronic anemia, Hyperglycemia due to diabetes mellitus Instructions: Blood Sugar Check Steps Prescriptions: No Action finasteride 5 mg tablet 5 mg PO DAILY Patient Comments: TAKE 1 TABLET BY MOUTH ONCE DAILY aspirin [Adult Aspirin Regimen] 81 mg tablet,delayed release (DR/EC) 81 mg PO DAILY prednisone 5 mg tablet 5 mg PO QDAY insulin lispro 100 unit/mL insulin pen 20 unit subcut QAC prednisolone acetate 1 % drops,suspension 1 drp ophthalmic (eye) ONCE mecobalamin (vitamin B12) 10,000 mcg recon soln 100 mcg IM DAILY PRN Rx Instructions: 1,000 mcg intramuscularly ONCE A MONTH; FIRST OF THE MONTH atorvastatin 20 mg tablet 20 mg PO DAILY Qty: 90 3RF torsemide 20 mg tablet 40 mg PO .COMPLEX Rx Instructions: 40 mg orally; 40mg in AM & 40mg PM warfarin 2.5 mg tablet 2 mg PO DAILY Rx Instructions: 2 mg daily per patient's home med list pantoprazole 40 mg tablet,delayed release (DR/EC) 40 mg PO DAILY allopurinol 100 mg Tablet 200 mg PO DAILYCM Qty: 30 0RF (DME) pen needle, diabetic 33 gauge x 3/16 needle See Rx Instructions .Route Qty: 100 0RF Rx Instructions: As directed epinephrine 0.3 mg/0.3 mL auto-injector 0.3 mg IM Q4H PRN (Reason: anaphylaxis) Qty: 2 0RF metolazone 2.5 mg tablet 5 mg PO DAILY tramadol 50 mg tablet 50 mg PO Q6H PRN (Reason: pain) dapagliflozin propanediol [Farxiga] 10 mg tablet 10 mg PO DAILY chlorpheniramine-pseudoephed 4-60 mg tablet 1 tab PO Q6H insulin glargine-yfgn 100 unit/mL (3 mL) insulin pen 18 unit subcut DAILY Qty: 15 2RF warfarin 5 mg tablet PO bumetanide 1 mg tablet 1 mg PO BID carvedilol 6.25 mg tablet 6.25 mg PO BID Qty: 180 3RF metolazone 5 mg tablet 5 mg PO DAILY potassium chloride 20 mEq tablet extended release 20 meq PO DAILY gabapentin 100 mg capsule 200 mg PO QHS Primary Care Provider: Howard Escobar Referrals: Howard Escobar DO [Primary Care Provider] - Activity Restrictions/Additional Instructions: Your blood sugars are in the 300s, potassium was normal, sodium slightly lower at 126. You were given IV fluids. Your primary care doctor has adjusted your Lantus which takes a while to have an effect. Keep a log of your blood sugars and follow-up with your PCP. Regarding your body aches I am not sure of the cause but recommend Tylenol as needed. Disposition Disposition: Home, Self Care Discharge Date/Time: 12/06/23 13:23
[2023-12-06 11:42] LABS: Bedside Glucose 360 mg/dL (74-106)
[2023-12-06 11:49] LABS: Differential Indicated MANUAL DIFF; Hematocrit 35.1 % (40-54); Hemoglobin 11.3 g/dL (13.0-16.5); Mean Corp Hgb Conc 32.2 g/dL (32-36); Mean Corpuscular Hgb 27.6 pg (27.0-32.0); Mean Corpuscular Volume 85.8 fL (80-94); Mean Platelet Vol. 11.9 fl (6.2-12.0); POSITIVE COUNT YES; POSITIVE DIFFERENTIAL YES; POSITIVE MORPHOLOGY YES; Platelet Count 248 K/mm3 (150-450); RBC Distribution Width CV 17.2 % (11.6-14.6); RBC Distribution Width SD 53.9 fl (35.1-43.9); Red Blood Count 4.09 M/mm3 (4.6-6.2)
[2023-12-06 11:58] LABS: Bacteria 0 SEEN /hpf (None Seen); Mucous, Urine 0 SEEN /hpf (<or=2+); Red Blood Cells-Urine 0 SEEN /hpf (0-5); Squamous Epithelial Cells - UA 0 SEEN /hpf (0-5); White Blood Cells 0 SEEN /hpf (0-5)
[2023-12-06 11:59] LABS: Color, Urine Yellow (Yellow); Glucose, Dipstick 1000 mg/dl (Normal); Ketone-Dipstick Negative (Negative); Leukocyte Esterase-Dipstick Negative /ul (Negative); Nitrite-Dipstick Negative (Negative); Occult Blood-Urine Negative /ul (Negative); Protein-Dipstick Negative (Negative); Urine Bilirubin Dipstick Negative (Negative); Urine Clarity Clear (Clear); Urine Urobilinogen Normal (Normal)
[2023-12-06 12:00] LABS: Anion Gap 12 (5-15); BUN 80 mg/dL (7-18); BUN/Creat Ratio 35.2 RATIO (10-20); Calcium,Total 9.2 mg/dL (8.5-10.1); Chloride 81 mmol/L (98-107); Creatinine, Serum 2.27 mg/dL (0.70-1.30); EST Glomerular Filtration Rate 30 mL/min (>60); Est Glom Filt Rate - Afr Amer 36 mL/min (>60); Glucose 367 mg/dL (74-106); Potassium 3.5 mmol/L (3.5-5.1); Sodium Level 126 mmol/L (136-145)
[2023-12-06] MEDS: Acetaminophen 325 MG Tablet 650 MG PO (12:05)
[2023-12-06 12:09] LABS: Lymphocyte 2 % (19-41); Metamyelocyte 4 % (0-1); Monocyte 1 % (0-10); Myelocyte 1 % (0-0); Neutrophil-Band 1 % (0-5); Neutrophil-Segmented 91 % (47-70); Total Cells Counted 100 (MANUAL DIFF)
[2023-12-06 12:10] LABS: Absolute Neutrophil Count 21.2 X10^3/uL (2.0-7.7); Platelet Estimate ADEQUATE (ADEQ); Red Cell Morphology NORM C+C NORMAL (NORM C&C)
[2023-12-06 12:11] LABS: Absolute Lymphocyte Count 0.46 X10^3/uL (0.83-4.51)
[2023-12-06] MEDS: 0.9% Normal Saline (500mL Bag) 500 ML 999 ML IV (12:21)
[2023-12-06 13:22] VITALS: BP 136/72; PULSE 81; RESP 16; TEMP 36.7; O2SAT 97
[2023-12-08 09:03] LABS: Pathologist Review Reviewed
== END 2023-12-06 13:23 | disposition home or self-care (01) ==
PROVIDERS: Physician Assistant; Emergency Provider Student in an Organized Health Care Education/Training Program; PCP Family Medicine; Visit Provider Student in an Organized Health Care Education/Training Program
DX: E11.65 Type 2 diabetes mellitus with hyperglycemia (principal); I13.0 Hypertensive heart and chronic kidney disease with heart failure and stage 1 through stage 4 chronic kidney disease, or unspecified chronic kidney disease; I50.42 Chronic combined systolic (congestive) and diastolic (congestive) heart failure; I48.19 Other persistent atrial fibrillation; E11.22 Type 2 diabetes mellitus with diabetic chronic kidney disease; Z79.4 Long term (current) use of insulin; N18.32 Chronic kidney disease, stage 3b; E87.1 Hypo-osmolality and hyponatremia; M25.561 Pain in right knee; M79.10 Myalgia, unspecified site; Z79.52 Long term (current) use of systemic steroids; M25.562 Pain in left knee; D64.9 Anemia, unspecified; M19.90 Unspecified osteoarthritis, unspecified site; I25.2 Old myocardial infarction; N40.0 Benign prostatic hyperplasia without lower urinary tract symptoms; K21.9 Gastro-esophageal reflux disease without esophagitis; Z79.899 Other long term (current) drug therapy; Z79.01 Long term (current) use of anticoagulants; Z79.82 Long term (current) use of aspirin; M10.9 Gout, unspecified; Z90.49 Acquired absence of other specified parts of digestive tract; Z98.49 Cataract extraction status, unspecified eye; D72.829 Elevated white blood cell count, unspecified
CPT/HCPCS: 71045; 80048; 81001; 82009; 82962; 85025; 87631; 96360; 99283; J7030

== ENCOUNTER 2023-12-08 12:27 | Outpatient (RCR) | payer MEDICARE, BC, SELFPAY ==
[2023-12-08 13:37] LABS: International Normalized Ratio 1.8; Prothrombin Time (Protime)PT. 20.7 SECONDS (11.7-14.9)
[2023-12-08 15:42] LABS: Anion Gap 17 (5-15); BUN 83 mg/dL (7-18); Calcium,Total 9.5 mg/dL (8.5-10.1); Chloride 77 mmol/L (98-107); Creatinine, Serum 2.68 mg/dL (0.70-1.30); EST Glomerular Filtration Rate 25 mL/min (>60); Est Glom Filt Rate - Afr Amer 30 mL/min (>60); Glucose 309 mg/dL (74-106); Potassium 2.8 mmol/L (3.5-5.1); Sodium Level 125 mmol/L (136-145)
== END 2023-12-29 23:55 | disposition home or self-care (01) ==
LOC: LAB 12:27
PROVIDERS: Nurse Practitioner Family; PCP Family Medicine; Referring Provider Family Medicine; Visit Provider Family Medicine
DX: I48.0 Paroxysmal atrial fibrillation (principal); N18.4 Chronic kidney disease, stage 4 (severe)
CPT/HCPCS: 36415; 80048; 85610

== ENCOUNTER 2023-12-10 14:01 | Inpatient (IN) | payer MEDICARE, BC, SELFPAY ==
[2023-12-10] VITALS (28 sets, daily range): BP systolic 72–149; BP diastolic 51–101; PULSE 65–92; RESP 14–29; TEMP 36.4–37.2; O2SAT 77–100; BMI 26.6; BMI 26.1
--- NOTE | 2023-12-10 14:33 | EKG12_ITS ---
Test Reason : SYNCOPE Blood Pressure : / mmHG Vent. Rate : 085 BPM Atrial Rate : 000 BPM P-R Int : 000 ms QRS Dur : 186 ms QT Int : 466 ms P-R-T Axes : 000 -02 162 degrees QTc Int : 554 ms Atrial fibrillation Non-specific intra-ventricular conduction block Minimal voltage criteria for LVH, may be normal variant ( Noel product ) Abnormal ECG Confirmed by Ellis Alejo ([id number]), movie editor ANDRÉS MACK ([id number]) on 12/11/2023 11:04:22 AM Referred By: Confirmed By:Ellis Alejo
--- NOTE | 2023-12-10 14:40 | EDS_ITS ---
HPI History of Present Illness Chief Complaint: Dizziness Detail of Chief Complaint: Sacral pressure yesterday and today with orthostatic dizziness Informant: patient and family Onset/Context/Timing Onset: Today, Yesterday and Days Context: Sudden Onset Timing: Intermittent Quality: Brief episodes of unresponsiveness Location: Occurred at home Current Severity: Gone Maximum Severity: Moderate Worsened by: Unknown Relieved by: Not applicable Associated Symptoms Associated Symptoms: No postictal state, no incontinence of urine or stool, no biting of tongue Narrative Narrative: Patient is an elderly male. He has multiple medical problems. He is on Coumadin for chronic persistent atrial fibrillation. Son states he was here for 2 single episodes. The note authored by Dr. Colon indicates he did not have a single episodes but had 2 episodes where he became stiff with his arms above his head. There was no postictal state and lasted 10 seconds in duration. Chief complaint versus Sundays ER visit was hyperglycemia. He has had dark stool. He has history of iron deficiency anemia and is on iron. He states his stool was darker than normal. Has not noted any visible blood and is not maroon in color. He had a syncopal episode yesterday and 1 today. Patient is not able to tell me what happened. He is not a good informant. There is no seizure activity. There is no incontinence per the son. Lasted 10 to 15 seconds. There is no confusion after the episode. He was not pale or diaphoretic. He denies dysuria, frequency, urgency or hematuria. Prior similar symptoms: Yes Recent Illness/Hospitalization: Yes [facility] Medical History Abnormal ankle brachial index (LOKI) Acute hypoxic respiratory failure Anemia due to stage 3b chronic kidney disease Back pain BPH (benign prostatic hyperplasia) Cardiology follow-up encounter CHF NYHA class III Chronic combined systolic and diastolic CHF (congestive heart failure) Chronic kidney disease, stage 3b Chronic kidney disease, stage 4 (severe) Claudication Constipation CPAP (continuous positive airway pressure) dependence Diabetes Diarrhea Dietary restriction Elevated troponin (01/2021) Essential (primary) hypertension Gout Heartburn History of echocardiogram History of edema History of irregular heartbeat History of non-ST elevation myocardial infarction (NSTEMI) (07/25/21) History of pain when walking History of steroid therapy History of tobacco use HLD (hyperlipidemia) Hypertension Hypertrophic cardiomyopathy Hypokalemia Joint pain Lactic acidosis Left bundle branch block Leg cramps Leukocytosis Longstanding persistent atrial fibrillation Mitral valve insufficiency Night sweats 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 Obesity (BMI 30.0-34.9) KIMBERLY (obstructive sleep apnea) Persistent atrial fibrillation Poor appetite Presence of implantable pulmonary artery pressure and heart rate monitoring system (03/25/21) Renal infarct Restless legs Secondary pulmonary arterial hypertension Shortness of breath on exertion Wears glasses Home Medications finasteride 5 mg tablet 5 mg PO DAILY PROSTATE 12/19/20 [History Last Taken 12/10/23] pantoprazole 40 mg tablet,delayed release 40 mg PO DAILY ACID REFLUX 08/29/23 [History Last Taken 12/10/23] allopurinol 100 mg tablet 200 mg (2 x 100 mg) PO DAILYCM GOUT #30 tabs 09/03/23 [Rx Last Taken 12/10/23] pen needle, diabetic 33 gauge x 3/16 #100 ea 09/03/23 [Rx Last Taken Unknown] aspirin 81 mg tablet,delayed release (Adult Aspirin Regimen) 81 mg PO DAILY HEART HEALTH 11/10/23 [History Last Taken 12/10/23] atorvastatin 20 mg tablet 20 mg PO DAILY CHOLESTEROL #90 tabs 11/10/23 [Rx Last Taken 12/10/23] insulin lispro 100 unit/mL subcutaneous pen 20 unit subcut TID DIABETES 11/10/23 [History Last Taken 12/10/23] mecobalamin (vitamin B12) 10,000 mcg solution for injection 100 mcg IM Q30D SUPPLEMENT 11/10/23 [History Last Taken Unknown] carvedilol 6.25 mg tablet 6.25 mg PO BID HEART #180 tabs 11/11/23 [Rx Last Taken 12/10/23] gabapentin 100 mg capsule 200 mg PO QHS NEUROPATHY 11/17/23 [History Last Taken 12/09/23] potassium chloride 20 mEq tablet,extended release 20 meq PO DAILY SUPPLEMENT 11/17/23 [History Last Taken 12/10/23] dapagliflozin propanediol 10 mg tablet (Farxiga) 10 mg PO DAILY BLOOD SUGARS 11/29/23 [History Last Taken 12/10/23] ferrous sulfate 325 mg (65 mg iron) tablet 325 mg PO DAILY SUPPLEMENT 12/08/23 [History Last Taken 12/10/23] torsemide 20 mg tablet 40 mg PO DAILY EDEMA 12/08/23 [History Last Taken 12/10/23] warfarin 2 mg tablet 3 mg PO MOFR BLOOD THINNER 12/08/23 [History Last Taken 12/06/23] epinephrine 0.3 mg/0.3 mL injection, auto-injector 0.3 mg IM DAILY PRN ANAPHYLAXIS 12/10/23 [History Last Taken Unknown] insulin glargine 100 unit/mL (3 mL) subcutaneous pen (Lantus Solostar U-100 Insulin) 22 unit subcut 1000 DIABETES 12/10/23 [History Last Taken 12/10/23] warfarin 2 mg tablet 2 mg PO SUTUWETHSA BLOOD THINNER 12/10/23 [History Last Taken 12/10/23] Allergy/AdvReac Type Severity Reaction Status Date / Time metoprolol AdvReac bradycardia Verified 12/10/23 14:03 rivaroxaban [From Xarelto] AdvReac Bleeding Verified 12/10/23 14:03 Family History Father Heart disease Sister Heart disease Brother Heart disease Other Arthritis CVA (cerebral vascular accident) Depression Mental disorder Surgical History History of appendectomy History of cataract extraction History of left heart catheterization (02/19/21) History of transurethral resection of prostate (01/2019) History of ventricular septal myectomy (2000) Hx of umbilical hernia repair Social History Smoking Status: Never smoker second hand exposure: Yes alcohol intake: never caffeine: Yes Type: coffee Number of servings: 1 what type of physical activity do you participate in: other details: treadmill frequency: daily ROS ROS ED Constitutional Constitutional ED: Denies chills, fever(s), subjective, sweats or weight loss Eyes Eyes: Denies blurry vision, change in vision or diplopia ENT ENT ED: Denies ear pain, rhinorrhea or sore throat Cardiovascular Cardiovascular: Denies chest pain, orthopnea, palpitations, paroxysmal nocturnal dyspnea or racing heartbeat Respiratory/Chest Respiratory/Chest: Denies cough, dyspnea, dyspnea on exertion, orthopnea or paroxysmal nocturnal dyspnea Gastrointestinal Gastrointestinal: Reports melena and nausea; Denies abdominal pain, constipation , diarrhea or vomiting Genitourinary Genitourinary ED: Denies dysuria, hematuria or urinary frequency Musculoskeletal Musculoskeletal: Denies arthralgias, back pain, myalgias or neck pain Integumentary Reports other Details: Multiple bruises ; Denies abscess, Abrasions or rash Neurologic Neurologic: Reports weakness; Denies headache(s) or paresthesias Psychiatric Psychiatric: Denies anxiety or depression Endocrine Endocrinology: Denies cold intolerance or heat intolerance Hematologic/Lymphatic Hematologic/Lymphatic: Reports anemia, easy bleeding and easy bruising EXAM Physical Exam Const Vital Signs: 12/10/23 14:02 12/10/23 14:02 12/10/23 14:45 Temperature 99 F Temperature Source Temporal Pulse Rate 92 72 Respiratory Rate 16 21 H Respiratory Effort Normal Non-Labored Respiratory Pattern Normal Blood Pressure 97/75 107/63 Blood Pressure Mean 82 76 Pulse Ox 97 Oxygen Delivery Method Room Air Oxygen Flow Rate (L/min) 12/10/23 15:00 12/10/23 15:30 12/10/23 16:00 Temperature Temperature Source Pulse Rate 84 84 74 Respiratory Rate 16 24 H 21 H Respiratory Effort Respiratory Pattern Blood Pressure 89/63 L 75/64 L 149/80 H Blood Pressure Mean 68 69 101 Pulse Ox Oxygen Delivery Method Oxygen Flow Rate (L/min) 12/10/23 17:00 12/10/23 17:09 12/10/23 17:13 Temperature 98.8 F Temperature Source Oral Pulse Rate 75 78 Respiratory Rate 18 18 Respiratory Effort Respiratory Pattern Blood Pressure 72/55 L 78/51 L Blood Pressure Mean 60 60 Pulse Ox 90 87 95 Oxygen Delivery Method Room Air Room Air Nasal Cannula Oxygen Flow Rate (L/min) 3 12/10/23 17:16 12/10/23 18:59 12/10/23 16:15 Temperature 97.6 F L Temperature Source Pulse Rate 71 76 72 Respiratory Rate 20 H 19 H 18 Respiratory Effort Respiratory Pattern Blood Pressure 99/58 L 88/61 L 120/101 H Blood Pressure Mean 71 70 108 Pulse Ox 93 99 Oxygen Delivery Method Nasal Cannula Oxygen Flow Rate (L/min) 3 12/10/23 16:30 12/10/23 16:45 12/10/23 16:55 Temperature Temperature Source Pulse Rate 75 72 72 Respiratory Rate 20 H 19 H 18 Respiratory Effort Respiratory Pattern Blood Pressure 130/69 H 84/54 L 78/51 L Blood Pressure Mean 88 64 58 Pulse Ox Oxygen Delivery Method Oxygen Flow Rate (L/min) 12/10/23 17:00 12/10/23 17:12 12/10/23 17:15 Temperature Temperature Source Pulse Rate 76 83 79 Respiratory Rate 29 H 19 H 22 H Respiratory Effort Respiratory Pattern Blood Pressure 72/55 L 92/55 L 99/58 L Blood Pressure Mean 62 67 71 Pulse Ox 77 Oxygen Delivery Method Oxygen Flow Rate (L/min) 12/10/23 17:30 12/10/23 17:45 12/10/23 18:00 Temperature Temperature Source Pulse Rate 81 78 77 Respiratory Rate 21 H 16 22 H Respiratory Effort Respiratory Pattern Blood Pressure 90/52 L 118/69 104/70 Blood Pressure Mean 64 81 81 Pulse Ox 100 Oxygen Delivery Method Oxygen Flow Rate (L/min) 12/10/23 18:15 12/10/23 18:30 12/10/23 18:45 Temperature Temperature Source Pulse Rate 69 70 76 Respiratory Rate 24 H 25 H 17 Respiratory Effort Respiratory Pattern Blood Pressure 105/54 L 112/58 L 88/61 L Blood Pressure Mean 68 74 70 Pulse Ox Oxygen Delivery Method Oxygen Flow Rate (L/min) 12/10/23 19:00 Temperature Temperature Source Pulse Rate 76 Respiratory Rate 18 Respiratory Effort Respiratory Pattern Blood Pressure Blood Pressure Mean Pulse Ox 99 Oxygen Delivery Method Oxygen Flow Rate (L/min) Positive well nourished, well developed and obese Constitutional Narrative: Patient is hypotensive. Will need to review if this is a chronic condition of the head of his multiple medical problems or an acute issue. Reviewing ER visit from Thursday would indicate this is an acute process. General Appearance ED: well developed and NAD; Negative for cyanotic or diaphoretic Nutritional Appearance: obese HEENT Reports TM's clear and dry mucous membranes Negative for trauma or tenderness Tympanic Membrane ED: Yes TM's clear Mouth ED: Yes dry mucous membranes Mouth: dry mucous membranes Eyes PERRL and EOMs intact bilaterally General Eye ED: Yes pale conjunctiva; Negative for scleral icterus Neck no lymphadenopathy, supple and no JVD Chest Wall inspection of chest normal and palpation of chest normal Resp normal respiratory effort and No clear to auscultation bilaterally Auscultation: rales bilateral base Cardio regular rate and no murmurs Rhythm: abnormal rhythm irregularly irregular GI normal to inspection, nondistended, normoactive bowel sounds, non-tender, non- distended and no masses; Negative for hepatosplenomegaly GI Narrative: Patient has a reducible small supraumbilical hernia that is midline. He also has evidence of rectus diastases. Stool is very dark in color and sent for occult blood. Palpation: soft Back/Spine no CVA tenderness Thoracic Spine / Upper Back: Negative for thoracic spinal tenderness Lumbar Spine / Lower Back: Negative for lumbar spinal tenderness Extremity General Extremety ED: Yes edema General Extremity: edema Neuro oriented x3, CN's II-XII intact bilaterally and no sensory deficits noted Sensorium / Orientation: Negative for alert Motor Exam: strength 5/5 throughout Psych mental status grossly normal Skin Skin Narrative: Multiple bruises noted. No active bleeding. There is no jaundice. General Skin Exam: Negative for elasticity normal MDM MDM MDM Narrative Medical decision making narrative: Since patient is hypotensive need to evaluate for hypovolemia, cardiogenic etiology, noncardiogenic etiology including GI bleed. Prior records reviewed. Prior labs were reviewed. Will obtain EKG, appropriate blood work including troponin. Stool was sent for occult blood since it did not appear maroon in color or truly black. History & Record Review Discussion w/independent historian: Patient and Family Additional record(s) reviewed:: Prior outpatient record, Prior ED visit and Prior labs Lab Data Attestation: I reviewed the patient's lab results. Lab results narrative: White count is 27.9 thousand. Patient does have a shift. Patient is anemic. Patient has chronic anemia and is at baseline. INR is subtherapeutic at 1.8. Patient has acute hyponatremia since December 01. His sodium at that time was 136 is now 120. Potassium is 2.7. Chloride is 74. CO2 is elevated at 34. Anion gap is normal at 12. Creatinine is elevated to 2.6 with a BUN of 86. Troponin is elevated 413. Glucose is elevated at 309. Case the patient had a loop diuretic and this is probably the reason for his hyponatremia and hyperchloremia. However there is a significant decrease over the past week. Review of prior records indicate patient has chronic elevated white count in the 20,000's. There is no known history of cardiac disease elevated troponin of 400 we will treat with aspirin. He is getting a fluid bolus for his hypotension. Will contact hospitalist for admission. BUN/creatinine ratio is elevated at 33- 1 which is consistent with prerenal azotemia. Clinically he was dehydrated. Labs: Laboratory Results - last 24 hr 12/10/23 12/10/23 12/10/23 15:03 17:00 17:50 WBC 27.9 H RBC 4.23 L Hgb 11.7 L Hct 35.5 L MCV 83.9 MCH 27.7 MCHC 33.0 RDW Std Deviation 51.9 H RDW Coeff of Kiersten 17.3 H Plt Count 242 MPV 12.1 H Immature Gran % (Auto) 1.400 H Neut % (Auto) 91.0 H Lymph % (Auto) 2.3 L [place] % (Auto) 5.0 Eos % (Auto) 0.0 Baso % (Auto) 0.3 Absolute Neuts (auto) 25.4 H Absolute Lymphs (auto) 0.63 L Nucleated RBC % 0 Differential Comment SEE COMMENT Platelet Estimate ADEQUATE RBC Morphology N CHROM Anisocytosis RARE PT 20.5 H INR 1.8 Sodium 120 L Potassium 2.7 L* Chloride 74 L* Carbon Dioxide 34.0 H Anion Gap 12 BUN 86 H Creatinine 2.60 H Est GFR (MDRD) Af Amer 31 L Est GFR (MDRD) Non-Af 25 L BUN/Creatinine Ratio 33.1 H Glucose 309 H Lactic Acid 3.0 H* Calcium 9.1 Troponin I High Sens 413 H* 394 H* Radiography Chest X-Ray - ED: 1 View and Read by ED Physician (Single view portable chest x- ray reveals discoid atelectasis left lower lobe. There is no infiltrate or effusion. Cardiac silhouette is unremarkable. Perihilar regions normal. Osseous structures are unremarkable.) Diagnostic Testing: Clinical Impression(s) from Imaging Studies Chest X-Ray 12/10/23 17:20 IMPRESSION: No radiographic evidence of acute cardiopulmonary disease. Electronically Signed: Ariel Hairston MD at 18:04 EDT , EKG Initial EKG: Attestation: I personally reviewed and interpreted this EKG as follows: Interpretation: Atrial Fibrillation (Rate is 85. QRS durations 186 ms. Patient has probable left bundle branch block. QT is 466 ms with a QTc of 554 ms which is prolonged. There is evidence of LVH. [place] is normal.) Follow-up EKG: Attestation: I personally reviewed and interpreted this EKG as follows: Interpretation: Atrial Fibrillation (Rate is 77. There are are no apparent beats or premature ventricular beats noted. Rate is 77. Cures duration 108 ms. Cures duration 482 ms. There is an interventricular conduction delay suggestive of a left bundle branch block. There is evidence of LVH. There is no interval change from first ) Management Discussion w/another healthcare provider: Hospitalist Treatment and Re-Evaluation :: I was informed by nurse that patient's saturation dropped to 87% with good waveform. Is present on oxygen. In light of this chest x-ray was ordered. Once chest x-ray has been performed and reviewed by me will contact hospitalist for admission. Family, spouse and patient were made aware of findings and need for admission. Comments:: Patient has eclampsia when he sat up. Patient required sternal rub to awaken. Critical Care Time Critical Care Time: Yes Critical care time (excluding procedures): 30-74 minutes (34), Including time spent: (History, physical, documentation, review of prior records, treatment of hypotension, consultation for admission for non-ST elevation MA), Discussing w/Patient &/or Family/Centralized Traffic Control Operator, Discussing w/Consultants and Arranging Admission or Transfer Discharge Plan Dx/Rx/DC Orders Clinical Impression: Acute hypotension, Grade III diastolic dysfunction, Leukocytosis, Cardiomyopathy, Acute hypokalemia, History of non-ST elevation myocardial infarction (NSTEMI), Anticoagulant long-term use, HLD (hyperlipidemia), Non-ST elevated myocardial infarction, Prerenal azotemia, Acute hyponatremia, Hypoxia, Syncope and collapse, Acidosis, lactic Disposition Disposition: Acute Care Hospital [facility]
[2023-12-10 15:12] LABS: Absolute Lymphocyte Count 0.63 X10^3/uL (0.83-4.51); Absolute Neutrophil Count 25.4 X10^3/uL (2.0-7.7); Basophil# 0.08 X10^3/uL; Basophil% 0.3 % (0-1); Hematocrit 35.5 % (40-54); Hemoglobin 11.7 g/dL (13.0-16.5); Lymphocyte # 0.63 X10^3/ul (0.83-4.51); Lymphocyte % 2.3 % (19-41); Mean Corpuscular Hgb 27.7 pg (27.0-32.0); Mean Corpuscular Volume 83.9 fL (80-94); Mean Platelet Vol. 12.1 fl (6.2-12.0); Monocyte# 1.39 X10^3/uL; NRBC Flagged by Analyzer 0 % (0-5); POSITIVE DIFFERENTIAL YES; Platelet Count 242 K/mm3 (150-450); RBC Distribution Width CV 17.3 % (11.6-14.6); RBC Distribution Width SD 51.9 fl (35.1-43.9); Red Blood Count 4.23 M/mm3 (4.6-6.2); White Blood Count 27.9 K/mm3 (4.4-11.0)
[2023-12-10 15:34] LABS: International Normalized Ratio 1.8; Prothrombin Time (Protime)PT. 20.5 SECONDS (11.7-14.9)
[2023-12-10 15:40] LABS: Anion Gap 12 (5-15); BUN 86 mg/dL (7-18); BUN/Creat Ratio 33.1 RATIO (10-20); Calcium,Total 9.1 mg/dL (8.5-10.1); Chloride 74 mmol/L (98-107); EST Glomerular Filtration Rate 25 mL/min (>60); Est Glom Filt Rate - Afr Amer 31 mL/min (>60); Glucose 309 mg/dL (74-106); Potassium 2.7 mmol/L (3.5-5.1); Sodium Level 120 mmol/L (136-145); Troponin-I HS (w/2H Reflex) 413 pg/mL (3.0-78.0)
[2023-12-10 16:02] LABS: Differential Indicated SCAN CRITERIA MET
[2023-12-10 16:07] LABS: Platelet Estimate ADEQUATE (ADEQ); Red Cell Morphology N CHROM NORMAL (NORM C&C)
[2023-12-10 16:08] LABS: Anisocytosis RARE
[2023-12-10] MEDS: 0.9% Normal Saline (500mL Bag) 500 ML 1000 ML IV ×2 (17:06→19:53)
[2023-12-10 17:07] LABS: Reflex Troponin-HS? (from REC) Y
--- NOTE | 2023-12-10 17:20 | RAD_ITS ---
EXAM: XR CHEST, 1 VIEW CLINICAL INDICATION: Hypoxia TECHNIQUE: Frontal view of the chest. COMPARISON: 12/06/2023 FINDINGS: LUNGS AND PLEURAL SPACES: Unremarkable. No consolidation or edema. No pneumothorax. No effusion. HEART: Unremarkable. Cardiac silhouette not enlarged. MEDIASTINUM: Central airways and mediastinal contour are unremarkable. BONES/JOINTS: Unremarkable. No acute fracture. SOFT TISSUES: Unremarkable. RAD/Chest 1 View (Portable) IMPRESSION: No radiographic evidence of acute cardiopulmonary disease. Electronically Signed: Ariel Hairston MD at 18:04 EDT ,
[2023-12-10 17:42] LABS: Troponin-I HS 394 pg/mL (3.0-78.0)
--- NOTE | 2023-12-10 17:58 | ED.RN ---
pts family yelled out for assistance out of the door. Yogi RN goes in to check on patient and yells for another RN assistance. per pts family, pt had an episode of him passing out. Pt needed painful stimuli in order to open eyes. pt very tearful upon awaking. repeat ekg done. dr. escobedo made aware/
--- NOTE | 2023-12-10 17:59 | EKG12_ITS ---
Test Reason : REPEAT Blood Pressure : / mmHG Vent. Rate : 077 BPM Atrial Rate : 000 BPM P-R Int : 000 ms QRS Dur : 188 ms QT Int : 482 ms P-R-T Axes : 000 -06 165 degrees QTc Int : 545 ms Atrial fibrillation with premature ventricular or aberrantly conducted complexes Non-specific intra-ventricular conduction block Minimal voltage criteria for LVH, may be normal variant ( [place] product ) Abnormal ECG Confirmed by Ellis Alejo ([id number]), editor house organ ANDRÉS MACK ([id number]) on 12/11/2023 11:05:50 AM Referred By: Confirmed By:Ellis Alejo
[2023-12-10] MEDS: Aspirin 81 MG TAB.CHEW 324 MG PO (18:15)
[2023-12-10] MEDS: Potassium Chloride Oral Soln 20 MEQ/15 ML UDC 40 MEQ PO ×2 (18:15→19:27)
--- NOTE | 2023-12-10 18:58 | ED.RN ---
pt flagged sepsis and fluid rescusitation. per dr escobedo, no fluid needed at this time.
[2023-12-10 19:14] LABS: Magnesium 2.2 mg/dL (1.6-2.6); Phosphorus 3.9 mg/dL (2.5-4.9)
--- NOTE | 2023-12-10 19:25 | PCM.HP.STD ---
HPI - General General Date of Admission: 12/10/23 HPI Narrative ANTWAN GE, is a 78 M who presents to the hospital from home secondary to weakness and inability to complete ADLs. Family's been concerned because of how weak he has become. They deny any fevers or chills at home and no nausea or vomiting or diarrhea. Over the last couple of days his electrolytes have slowly been worsening and today his potassium was 2.7 his chloride was 74 with a sodium of 120 which is not his normal baseline. He is on torsemide 40 mg daily for pulmonary hypertension with an RVSP of 51 mmHg based on echo from the [facility] on 10/14/2023. He also had developed renal disease and had tunneled dialysis catheter that had to be removed secondary to an infection. He is currently making urine on his own and his creatinine appears to be at his new baseline around 2.5-2.6. He was also hypotensive on arrival as well as a little hypoxic. Chest x-ray was unremarkable, no signs of pneumonia and while his systolics were low his mean arterial pressures stayed above 60 and with a liter of fluid has been maintained above 65. No obvious signs of infection though blood cultures were obtained. Will also obtain a UA. [facility] Medical History Abnormal ankle brachial index (LOKI) Acute hypoxic respiratory failure Anemia due to stage 3b chronic kidney disease Back pain BPH (benign prostatic hyperplasia) Cardiology follow-up encounter CHF NYHA class III Chronic combined systolic and diastolic CHF (congestive heart failure) Chronic kidney disease, stage 3b Chronic kidney disease, stage 4 (severe) Claudication Constipation CPAP (continuous positive airway pressure) dependence Diabetes Diarrhea Dietary restriction Elevated troponin (01/2021) Essential (primary) hypertension Gout Heartburn History of echocardiogram History of edema History of irregular heartbeat History of non-ST elevation myocardial infarction (NSTEMI) (07/25/21) History of pain when walking History of steroid therapy History of tobacco use HLD (hyperlipidemia) Hypertension Hypertrophic cardiomyopathy Hypokalemia Joint pain Lactic acidosis Left bundle branch block Leg cramps Leukocytosis Longstanding persistent atrial fibrillation Mitral valve insufficiency Night sweats 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 Obesity (BMI 30.0-34.9) KIMBERLY (obstructive sleep apnea) Persistent atrial fibrillation Poor appetite Presence of implantable pulmonary artery pressure and heart rate monitoring system (03/25/21) Renal infarct Restless legs Secondary pulmonary arterial hypertension Shortness of breath on exertion Wears glasses Home Medications finasteride 5 mg tablet 5 mg PO DAILY PROSTATE 12/19/20 [History Last Taken 12/10/23] pantoprazole 40 mg tablet,delayed release 40 mg PO DAILY ACID REFLUX 08/29/23 [History Last Taken 12/10/23] allopurinol 100 mg tablet 200 mg (2 x 100 mg) PO DAILYCM GOUT #30 tabs 09/03/23 [Rx Last Taken 12/10/23] pen needle, diabetic 33 gauge x 3/16 #100 ea 09/03/23 [Rx Last Taken Unknown] aspirin 81 mg tablet,delayed release (Adult Aspirin Regimen) 81 mg PO DAILY HEART HEALTH 11/10/23 [History Last Taken 12/10/23] atorvastatin 20 mg tablet 20 mg PO DAILY CHOLESTEROL #90 tabs 11/10/23 [Rx Last Taken 12/10/23] insulin lispro 100 unit/mL subcutaneous pen 20 unit subcut TID DIABETES 11/10/23 [History Last Taken 12/10/23] mecobalamin (vitamin B12) 10,000 mcg solution for injection 100 mcg IM Q30D SUPPLEMENT 11/10/23 [History Last Taken Unknown] carvedilol 6.25 mg tablet 6.25 mg PO BID HEART #180 tabs 11/11/23 [Rx Last Taken 12/10/23] gabapentin 100 mg capsule 200 mg PO QHS NEUROPATHY 11/17/23 [History Last Taken 12/09/23] potassium chloride 20 mEq tablet,extended release 20 meq PO DAILY SUPPLEMENT 11/17/23 [History Last Taken 12/10/23] dapagliflozin propanediol 10 mg tablet (Farxiga) 10 mg PO DAILY BLOOD SUGARS 11/29/23 [History Last Taken 12/10/23] ferrous sulfate 325 mg (65 mg iron) tablet 325 mg PO DAILY SUPPLEMENT 12/08/23 [History Last Taken 12/10/23] torsemide 20 mg tablet 40 mg PO DAILY EDEMA 12/08/23 [History Last Taken 12/10/23] warfarin 2 mg tablet 3 mg PO MOFR BLOOD THINNER 12/08/23 [History Last Taken 12/06/23] epinephrine 0.3 mg/0.3 mL injection, auto-injector 0.3 mg IM DAILY PRN ANAPHYLAXIS 12/10/23 [History Last Taken Unknown] insulin glargine 100 unit/mL (3 mL) subcutaneous pen (Lantus Solostar U-100 Insulin) 22 unit subcut 1000 DIABETES 12/10/23 [History Last Taken 12/10/23] warfarin 2 mg tablet 2 mg PO SUTUWETHSA BLOOD THINNER 12/10/23 [History Last Taken 12/10/23] Allergy/AdvReac Type Severity Reaction Status Date / Time metoprolol AdvReac bradycardia Verified 12/10/23 14:03 rivaroxaban [From Xarelto] AdvReac Bleeding Verified 12/10/23 14:03 Family History Father Heart disease Sister Heart disease Brother Heart disease Other Arthritis CVA (cerebral vascular accident) Depression Mental disorder Surgical History History of appendectomy History of cataract extraction History of left heart catheterization (02/19/21) History of transurethral resection of prostate (01/2019) History of ventricular septal myectomy (2000) Hx of umbilical hernia repair Social History Smoking Status: Never smoker second hand exposure: Yes alcohol intake: never caffeine: Yes Type: coffee Number of servings: 1 what type of physical activity do you participate in: other details: treadmill frequency: daily ROS Constitutional Constitutional: Reports weakness; Denies chills, fatigue, fever(s) or malaise Eyes Eyes: Denies blurry vision ENT HEENT: Denies headache(s) or nasal discharge Cardiovascular Cardiovascular: Reports syncope; Denies chest pain or dyspnea on exertion Respiratory/Chest Respiratory/Chest: Denies cough, shortness of breath at rest or shortness of breath with exertion Gastrointestinal Gastrointestinal: Denies constipation, diarrhea, nausea or vomiting Genitourinary Genitourinary: Denies dysuria Neurologic Neurologic: Denies focal weakness, numbness or tremor(s) Psychiatric Psychiatric: Denies anxiety or depression Vital Signs Vital Signs Vital Signs: 12/10/23 14:02 12/10/23 14:02 12/10/23 14:45 Temperature 99 F Temperature Source Temporal Pulse Rate 92 72 Respiratory Rate 16 21 H Respiratory Effort Normal Non-Labored Respiratory Pattern Normal Blood Pressure 97/75 107/63 Blood Pressure Mean 82 76 Pulse Ox 97 Oxygen Delivery Method Room Air Oxygen Flow Rate (L/min) 12/10/23 15:00 12/10/23 15:30 12/10/23 16:00 Temperature Temperature Source Pulse Rate 84 84 74 Respiratory Rate 16 24 H 21 H Respiratory Effort Respiratory Pattern Blood Pressure 89/63 L 75/64 L 149/80 H Blood Pressure Mean 68 69 101 Pulse Ox Oxygen Delivery Method Oxygen Flow Rate (L/min) 12/10/23 17:00 12/10/23 17:09 12/10/23 17:13 Temperature 98.8 F Temperature Source Oral Pulse Rate 75 78 Respiratory Rate 18 18 Respiratory Effort Respiratory Pattern Blood Pressure 72/55 L 78/51 L Blood Pressure Mean 60 60 Pulse Ox 90 87 95 Oxygen Delivery Method Room Air Room Air Nasal Cannula Oxygen Flow Rate (L/min) 3 12/10/23 17:16 12/10/23 18:59 12/10/23 16:15 Temperature 97.6 F L Temperature Source Pulse Rate 71 76 72 Respiratory Rate 20 H 19 H 18 Respiratory Effort Respiratory Pattern Blood Pressure 99/58 L 88/61 L 120/101 H Blood Pressure Mean 71 70 108 Pulse Ox 93 99 Oxygen Delivery Method Nasal Cannula Oxygen Flow Rate (L/min) 3 12/10/23 16:30 12/10/23 16:45 12/10/23 16:55 Temperature Temperature Source Pulse Rate 75 72 72 Respiratory Rate 20 H 19 H 18 Respiratory Effort Respiratory Pattern Blood Pressure 130/69 H 84/54 L 78/51 L Blood Pressure Mean 88 64 58 Pulse Ox Oxygen Delivery Method Oxygen Flow Rate (L/min) 12/10/23 17:00 12/10/23 17:12 12/10/23 17:15 Temperature Temperature Source Pulse Rate 76 83 79 Respiratory Rate 29 H 19 H 22 H Respiratory Effort Respiratory Pattern Blood Pressure 72/55 L 92/55 L 99/58 L Blood Pressure Mean 62 67 71 Pulse Ox 77 Oxygen Delivery Method Oxygen Flow Rate (L/min) 12/10/23 17:30 12/10/23 17:45 12/10/23 18:00 Temperature Temperature Source Pulse Rate 81 78 77 Respiratory Rate 21 H 16 22 H Respiratory Effort Respiratory Pattern Blood Pressure 90/52 L 118/69 104/70 Blood Pressure Mean 64 81 81 Pulse Ox 100 Oxygen Delivery Method Oxygen Flow Rate (L/min) 12/10/23 18:15 12/10/23 18:30 12/10/23 18:45 Temperature Temperature Source Pulse Rate 69 70 76 Respiratory Rate 24 H 25 H 17 Respiratory Effort Respiratory Pattern Blood Pressure 105/54 L 112/58 L 88/61 L Blood Pressure Mean 68 74 70 Pulse Ox Oxygen Delivery Method Oxygen Flow Rate (L/min) 12/10/23 19:00 Temperature Temperature Source Pulse Rate 76 Respiratory Rate 18 Respiratory Effort Respiratory Pattern Blood Pressure Blood Pressure Mean Pulse Ox 99 Oxygen Delivery Method Oxygen Flow Rate (L/min) Weight Weight: 160 lb 4.8 oz Body Mass Index (BMI) 26.6 Physical Exam Narrative General: Alert, Oriented x3, Cooperative, No apparent distress HEENT: Atraumatic, PERRLA, EOMI, Normocephalic Oral: Moist Mucosa Neck: Supple, No JVD Lungs: Diminished, Normal air movement, No rhonchi, No wheeze, No rales Cardiovascular: Regular rate, Regular Rhythm, Normal S1, Normal S2, No murmurs Abdomen: Soft, Non Tender, Non-Distended, No Hepato-splenomegaly Extremities: Trace edema, Capillary Refill Less than 3 Seconds Skin: No rashes, No breakdown, multiple areas of ecchymosis Musculoskeletal: No Tenderness to Palpation of Joints or Extremities Neurological: No focal neurological deficits, Motor Exam 5/5 strength throughout, Sensory exam intact to light touch and pain Psych/Mental Status: Flat Results Lab / Micro Data 12/10/23 15:03 12/10/23 15:03 Labs: Laboratory Results - last 24 hr 12/10/23 15:03: WBC 27.9 H, RBC 4.23 L, Hgb 11.7 L, Hct 35.5 L, MCV 83.9, MCH 27.7, MCHC 33.0, RDW Std Deviation 51.9 H, RDW Coeff of Kiersten 17.3 H, Plt Count 242, MPV 12.1 H, Immature Gran % (Auto) 1.400 H, Neut % (Auto) 91.0 H, Lymph % (Auto) 2.3 L, [place] % (Auto) 5.0, Eos % (Auto) 0.0, Baso % (Auto) 0.3, Absolute Neuts (auto) 25.4 H, Absolute Lymphs (auto) 0.63 L, Nucleated RBC % 0, Differential Comment SEE COMMENT, Platelet Estimate ADEQUATE, RBC Morphology N CHROM, Anisocytosis RARE, PT 20.5 H, INR 1.8, Sodium 120 L, Potassium 2.7 L*, Chloride 74 L*, Carbon Dioxide 34.0 H, Anion Gap 12, BUN 86 H, Creatinine 2.60 H, Est GFR (MDRD) Af Amer 31 L, Est GFR (MDRD) Non-Af 25 L, BUN/Creatinine Ratio 33.1 H, Glucose 309 H, Calcium 9.1, Troponin I High Sens 413 H* 12/10/23 17:00: Phosphorus 3.9, Magnesium 2.2, Troponin I High Sens 394 H* 12/10/23 17:50: Lactic Acid 3.0 H* Micro: Microbiology 12/10/23 15:03 Stool Stool Occult Blood (MARYANA) - Final Imaging Radiology Impression Chest X-Ray 12/10/23 17:20 IMPRESSION: No radiographic evidence of acute cardiopulmonary disease. Electronically Signed: Ariel Hairston MD at 18:04 EDT , Assessment & Plan Assessment/Plan (1) Acidosis, lactic: (2) Hypoxia: (3) Acute hyponatremia: (4) Syncope and collapse: (5) Acute hypokalemia: PLAN: Plan 1. Weakness and debility with adult failure to thrive and inability complete ADLs/hypokalemia, hyponatremia, hypochloremia ? Unclear as to the etiology of his electrolyte disturbances, could be due to his torsemide ? He was given IV fluids and his potassium was replaced ? Will recheck in the morning ? Given his pulmonary hypertension and the fact that he is on torsemide at baseline, will be gentle with his IV fluids and continue at 75 cc/h for 1 L total on admission ? I did have a 20-minute discussion with him and his family on advance care planning, they are willing to speak to hospice given his quality of life has significantly deteriorated since July 02. Essential HTN/HLD/pulmonary hypertension with chronic diastolic CHF/persistent A-fib status post pacemaker placement ? Will hold his Coreg and his torsemide secondary to his hypotension ? Will provide gentle hydration given his nonischemic cardiomyopathy as well as his pulmonary hypertension ? We will monitor make adjustments as necessary ? Can resume Lipitor ? Continue with Coumadin, will monitor INR 3. DM2 ? Continue with Farxiga ? Will hold his home insulin ? Will place him on sliding scale insulin ? Accu-Cheks ACHS ? Will monitor make adjustments as necessary 4. BPH ? Stable ? Continue with finasteride 5. GERD ? Stable/continue with PPI 6. Rheumatoid arthritis ? This explains his chronically elevated white blood cell count ? He was on prednisone however developed systemic MRSA infection due to infected dialysis catheter line DVT: Coumadin 75 minutes was spent on direct patient care, including documentation as well as chart review and collaboration with colleagues Charges/Coding Visit Charges Inpatient E&M: 94298 Init Hosp L3 Procedures Hospitalists Procedures: 41661 Advncd Care Plan 30 Min
[2023-12-10] MEDS: 0.9% Normal Saline (1000mL) 1,000 ML 75 ML IV (21:17)
[2023-12-10 21:59] LABS: Reflex Lactate? Y
[2023-12-10] MEDS: Insulin Lispro 100 UNIT/ML INSULN.PEN SC (22:26)
[2023-12-10] MEDS: Heparin Injection (Vial) 5,000 UNIT/ML VIAL 5000 UNIT SC (22:28)
[2023-12-10 22:38] LABS: Troponin-I HS 381 pg/mL (3.0-78.0)
[2023-12-10 22:51] LABS: Bedside Glucose 346 mg/dL (74-106)
[2023-12-10 22:58] LABS: Lactic Acid 2.9 mmol/L (0.4-1.9)
[2023-12-11] VITALS (9 sets, daily range): BP systolic 70–153; BP diastolic 46–120; PULSE 68–88; RESP 14–16; TEMP 36.4–36.7; O2SAT 96–100
[2023-12-11 00:31] LABS: Bacteria 0 SEEN /hpf (None Seen); Mucous, Urine 0 SEEN /hpf (<or=2+)
[2023-12-11 00:44] LABS: Color, Urine Yellow (Yellow); Glucose, Dipstick 1000 mg/dl (Normal); Ketone-Dipstick Negative (Negative); Leukocyte Esterase-Dipstick 500 /ul (Negative); Nitrite-Dipstick Negative (Negative); Occult Blood-Urine 25 /ul (Negative); Protein-Dipstick 15 mg/dl (Negative); Urine Bilirubin Dipstick Negative (Negative); Urine Clarity Clear (Clear); Urine Urobilinogen Normal (Normal)
[2023-12-11 01:09] LABS: Red Blood Cells-Urine 10-25 SEEN /hpf (0-5); White Blood Cells 0-5 SEEN /hpf (0-5)
[2023-12-11 01:10] LABS: Squamous Epithelial Cells - UA 0-5 SEEN /hpf (0-5)
[2023-12-11] MEDS: Insulin Lispro 100 UNIT/ML INSULN.PEN SC ×4 (06:14→22:02)
[2023-12-11] MEDS: Heparin Injection (Vial) 5,000 UNIT/ML VIAL 5000 UNIT SC ×3 (06:14→21:59)
[2023-12-11 06:28] LABS: Bedside Glucose 197 mg/dL (74-106)
[2023-12-11 07:58] LABS: Absolute Lymphocyte Count 1.15 X10^3/uL (0.83-4.51); Absolute Neutrophil Count 18.3 X10^3/uL (2.0-7.7); Basophil# 0.03 X10^3/uL; Basophil% 0.1 % (0-1); Eosinophil# 0.03 X10^3/uL; Eosinophils% 0.1 % (0-5); Hematocrit 30.1 % (40-54); Hemoglobin 9.8 g/dL (13.0-16.5); Lymphocyte # 1.15 X10^3/ul (0.83-4.51); Lymphocyte % 5.5 % (19-41); Mean Corp Hgb Conc 32.6 g/dL (32-36); Mean Corpuscular Hgb 27.8 pg (27.0-32.0); Mean Corpuscular Volume 85.3 fL (80-94); Mean Platelet Vol. 12.2 fl (6.2-12.0); Monocyte# 1.25 X10^3/uL; Monocyte% 5.9 % (0-10); NRBC Flagged by Analyzer 0 % (0-5); Neutrophil # 18.25 X10^3/uL (2.7-7.7); Neutrophil % 86.8 % (47-70); Platelet Count 223 K/mm3 (150-450); RBC Distribution Width CV 17.3 % (11.6-14.6); RBC Distribution Width SD 53.2 fl (35.1-43.9); Red Blood Count 3.53 M/mm3 (4.6-6.2)
[2023-12-11 08:00] LABS: International Normalized Ratio 1.9; Prothrombin Time (Protime)PT. 21.5 SECONDS (11.7-14.9)
[2023-12-11] MEDS: Aspirin E.C. 81 MG Tablet PO (08:16)
[2023-12-11] MEDS: Allopurinol 100 MG Tablet 200 MG PO (08:17)
[2023-12-11] MEDS: Ferrous Sulfate 325 MG Tablet PO (08:17)
[2023-12-11] MEDS: Atorvastatin Calcium 20 MG Tablet PO (08:17)
[2023-12-11] MEDS: Pantoprazole Sodium 40 MG Tablet PO (08:17)
[2023-12-11] MEDS: Finasteride 5 MG Tablet PO (08:17)
--- NOTE | 2023-12-11 08:30 | PN.HOSP_ITS ---
Reason for Visit Reason for Visit: Diagnoses Hypo-osmolality and hyponatremia (12/10/23) Acidosis, unspecified (12/10/23) Hypokalemia (12/10/23) Hypoxemia (12/10/23) Syncope and collapse (12/10/23) Objective Data Objective Data Vital Signs: Vital Signs Temp Pulse Resp BP Pulse Ox O2 Del Method O2 Flow Rate 98.0 F 68 14 98/65 100 Room Air 3 12/11/23 08:13 12/11/23 08:13 12/11/23 08:13 12/11/23 08:13 12/11/23 08:13 12/11/23 08:13 12/10/23 20:50 FiO2 21 12/10/23 22:20 Oxygen Flow Rate (L/min) 3 Oxygen Delivery Method Room Air Weight: 156 lb 15.506 oz Body Mass Index (BMI) 26.1 Intake & Output: Intake and Output for Last 24 Hours 12/09/23 12/10/23 12/11/23 23:59 23:59 23:59 Intake Total 1280 / 1280 120 / 120 Output Total 400 / 400 100 / 100 Balance 880 / 880 Lab / Micro Data 12/11/23 06:45 12/11/23 06:45 Labs: Laboratory Results - last 24 hr 12/10/23 15:03: WBC 27.9 H, RBC 4.23 L, Hgb 11.7 L, Hct 35.5 L, MCV 83.9, MCH 27.7, MCHC 33.0, RDW Std Deviation 51.9 H, RDW Coeff of Kiersten 17.3 H, Plt Count 242, MPV 12.1 H, Immature Gran % (Auto) 1.400 H, Neut % (Auto) 91.0 H, Lymph % (Auto) 2.3 L, [place] % (Auto) 5.0, Eos % (Auto) 0.0, Baso % (Auto) 0.3, Absolute Neuts (auto) 25.4 H, Absolute Lymphs (auto) 0.63 L, Nucleated RBC % 0, Differential Comment SEE COMMENT, Platelet Estimate ADEQUATE, RBC Morphology N CHROM, Anisocytosis RARE, PT 20.5 H, INR 1.8, Sodium 120 L, Potassium 2.7 L*, Chloride 74 L*, Carbon Dioxide 34.0 H, Anion Gap 12, BUN 86 H, Creatinine 2.60 H , Est GFR (MDRD) Af Amer 31 L, Est GFR (MDRD) Non-Af 25 L, BUN/Creatinine Ratio 33.1 H, Glucose 309 H, Calcium 9.1, Troponin I High Sens 413 H* 12/10/23 17:00: Phosphorus 3.9, Magnesium 2.2, Troponin I High Sens 394 H* 12/10/23 17:50: Lactic Acid 3.0 H* 12/10/23 21:52: Troponin I High Sens 381 H* 12/10/23 22:19: Lactic Acid 2.9 H* 12/10/23 22:24: POC Glucose 346 H 12/11/23 00:27: Urine Color Yellow, Urine Clarity Clear, Urine pH 7.0, Ur Specific [place] 1.010, Urine Protein 15 H, Urine Glucose (UA) 1000 H, Urine Ketones Negative, Urine Occult Blood 25 H, Urine Nitrite Negative, Urine Bilirubin Negative, Urine Urobilinogen Normal, Ur Leukocyte Esterase 500 H, Urine RBC 10-25 SEEN, Urine WBC 0-5 SEEN, Ur Squamous Epith Cells 0-5 SEEN, Urine Bacteria 0 SEEN, Urine Mucus 0 SEEN 12/11/23 06:08: POC Glucose 197 H 12/11/23 06:45: WBC 21.0 H, RBC 3.53 L, Hgb 9.8 L, Hct 30.1 L, MCV 85.3, MCH 27.8, MCHC 32.6, RDW Std Deviation 53.2 H, RDW Coeff of Kiersten 17.3 H, Plt Count 223, MPV 12.2 H, Immature Gran % (Auto) 1.600 H, Neut % (Auto) 86.8 H, Lymph % (Auto) 5.5 L, [place] % (Auto) 5.9, Eos % (Auto) 0.1, Baso % (Auto) 0.1, Absolute Neuts (auto) 18.3 H, Absolute Lymphs (auto) 1.15, Nucleated RBC % 0, PT 21.5 H, INR 1.9 Micro: Microbiology 12/10/23 15:03 Stool Stool Occult Blood (MARYANA) - Final Radiography Diagnostic Testing: Radiology Impression Chest X-Ray 12/10/23 17:20 IMPRESSION: No radiographic evidence of acute cardiopulmonary disease. Electronically Signed: Ariel Hairston MD at 18:04 EDT , Physical Exam Narrative Seen and examined. Patient cries very easily with every sentence. He looks depressed and sad. Has hyponatremia and hypokalemia Discharge recently on 12/03/2019 5:04 days of hospitalization. Patient admitted with 2 syncope and decreased ADL and not doing well at home. He also complained of diffuse aches and pain in whole body. Physical exam General: Alert, Oriented x3, Cooperative HEENT: Atraumatic, PERRLA, EOMI, Normocephalic Oral: No Gingival or Mucosal Lesions/ Ulcerations Neck: Supple, No JVD, Negative Carotid Bruits Chest wall/Lungs: Air entry diminished in bilateral lung bases. No crepitation/rhonchi Cardiovascular: Regular rate, Regular Rhythm, Normal S1, Normal S2, No M/G/R Abdomen: Bowel Sounds Present, Soft, Non Tender, Non-Distended : No dysuria. No renal angle tenderness. No suprapubic tenderness. Extremities: No edema, Capillary Refill Less than 3 Seconds Skin: Bruises/subcutaneous ecchymosis on both upper extremities Musculoskeletal: No Tenderness to Palpation of Joints or Extremities. Muscle strength 4/5 at knees and hip joints Neurological: Cranial nerves II-XII grossly intact, DTR 2+/4. Gait not examined. No acute focal neurological deficit. Psych/Mental Status: Flat affect Assessment & Plan Assessment/Plan (1) Acidosis, lactic: (2) Hypoxia: (3) Acute hyponatremia: (4) Syncope and collapse: (5) Acute hypokalemia: PLAN: Plan 78-year-old elderly gentleman was admitted with syncopal episode 2, on the day prior and on the day of admission. There is no seizure activity or incontinence per the son. Lasted 10 to 15 seconds. He didn't have postictal confusion after the episode. Prior to that patient also was seen in the ED on Thursday when he had 2 episodes of becoming stiff. Chief complaint was hyperglycemia. 1. 2 episodes of syncope, possible orthostatic hypotension from diuretic/vasovagal complicated with generalized weakness and debility: Patient is states when he stands up he feels dizzy and passes out although last evening he stood up he did not feel dizzy. Possible due to hypotension or Last 2D echo in October 2023 shows LV normal in size and systolic function, 53%. 1-2+ MR 1-2+ TR left atrial cavity is severely dilated RV normal systolic function. RVSP 51 mmHg consistent with moderate pulmonary hypertension. Status post myomectomy in 2000 and history of hypertrophic cardiomyopathy. No significant LVOT gradient at rest or with Valsalva. No DEVAUGHN. Abnormal RWMA due to LBBB 2. Generalized weakness and debility, adult failure to thrive, decreased ADL: PT and OT ordered. 3. Electrolyte abnormality: Hyponatremia hypokalemia and hypochloremia: IV fluid replacement. IV potassium replacement ordered. Patient seems to isovolemic. Composing Machine Operator consulted. Hold torsemide. 4. CAD status post non-STEMI, chronic combined HFrEF and HFpEF, class III CHF, hypertrophic cardiomyopathy status post myomectomy, persistent A-fib status post pacemaker: Patient cardiac medications resumed with holding parameters. 2D echo as described above 5. Chronic right hand swelling with history of RA and gout: Patient complain of pain in the joints of and leg. He history of gout. On allopurinol. 1 dose colchicine 0.6 mg ordered.During previous admission in first week of November 2023, MRI of the right hand showed well-defined marginal erosions with overhanging edges around the third PIP joint as well as the second and fourth MCP joints with surrounding gouty tophi admitted degenerative arthrosis with joint space narrowing of the PIP and DIP joints of the second through fifth digits. 6.. Essential HTNand dyslipidemia: Coreg and torsemide were held. Monitor as per vitals and hemodynamic changes. Resume Lipitor ? Continue with Coumadin, INR 1.9. Warfarin dose increased. On warfarin 3 mg on Thursday and Thursday, increased to 4 mg. Rest warfarin 2 mg on other days continued. 3. DM2 with CKD stage IV patient creatinine has been about 20-25 since January 2021. Patient has been on dialysis in the recent past. Composing Machine Operator consulted. ? Continue with empagliflozin. ? Glucose around 200. Holding long-acting insulin. Accu-Chek before meals and at bedtime insulin coverage Humalog sliding scale. ? monitor make adjustments as necessary 4. BPH No acute issues. ? Continue with finasteride 5. GERD ? Stable/continue with PPI 6. Rheumatoid arthritis ? This explains his chronically elevated white blood cell count ? He was on prednisone however developed systemic MRSA infection due to infected dialysis catheter line during previous admission in October 2023 DVT: Coumadin Microbiology Past 72 Hours 12/11/23 13:40 Stool Stool Occult Blood (MARYANA) - Final 12/10/23 15:03 Stool Stool Occult Blood (MARYANA) - Final Laboratory Results 12/10/23 15:03: WBC 27.9 H, RBC 4.23 L, Hgb 11.7 L, Hct 35.5 L, MCV 83.9, MCH 27.7, MCHC 33.0, RDW Std Deviation 51.9 H, RDW Coeff of Kiersetn 17.3 H, Plt Count 242, MPV 12.1 H, Immature Gran % (Auto) 1.400 H, Neut % (Auto) 91.0 H, Lymph % (Auto) 2.3 L, [place] % (Auto) 5.0, Eos % (Auto) 0.0, Baso % (Auto) 0.3, Absolute Neuts (auto) 25.4 H, Absolute Lymphs (auto) 0.63 L, Nucleated RBC % 0, Diff erential Comment SEE COMMENT, Platelet Estimate ADEQUATE, RBC Morphology N CHROM, Anisocytosis RARE, PT 20.5 H, INR 1.8, Sodium 120 L, Potassium 2.7 L*, Chloride 74 L*, Carbon Dioxide 34.0 H, Anion Gap 12, BUN 86 H, Creatinine 2.60 H , Est GFR (MDRD) Af Amer 31 L, Est GFR (MDRD) Non-Af 25 L, BUN/Creatinine Ratio 33.1 H, Glucose 309 H, Calcium 9.1, Troponin I High Sens 413 H* 12/10/23 17:00: Phosphorus 3.9, Magnesium 2.2, Troponin I High Sens 394 H* 12/10/23 17:50: Lactic Acid 3.0 H* 12/10/23 21:52: Troponin I High Sens 381 H* 12/10/23 22:19: Lactic Acid 2.9 H* 12/10/23 22:24: POC Glucose 346 H 12/11/23 00:27: Urine Color Yellow, Urine Clarity Clear, Urine pH 7.0, Ur Specific [place] 1.010, Urine Protein 15 H, Urine Glucose (UA) 1000 H, Urine Ketones Negative, Urine Occult Blood 25 H, Urine Nitrite Negative, Urine Bilirubin Negative, Urine Urobilinogen Normal, Ur Leukocyte Esterase 500 H, Urine RBC 10-25 SEEN, Urine WBC 0-5 SEEN, Ur Squamous Epith Cells 0-5 SEEN, Urine Bacteria 0 SEEN, Urine Mucus 0 SEEN 12/11/23 06:08: POC Glucose 197 H 12/11/23 06:45: WBC 21.0 H, RBC 3.53 L, Hgb 9.8 L, Hct 30.1 L, MCV 85.3, MCH 27.8, MCHC 32.6, RDW Std Deviation 53.2 H, RDW Coeff of Kiersten 17.3 H, Plt Count 223, MPV 12.2 H, Immature Gran % (Auto) 1.600 H, Neut % (Auto) 86.8 H, Lymph % (Auto) 5.5 L, [place] % (Auto) 5.9, Eos % (Auto) 0.1, Baso % (Auto) 0.1, Absolute Neuts (auto) 18.3 H, Absolute Lymphs (auto) 1.15, Nucleated RBC % 0, PT 21.5 H, INR 1.9, Sodium 129 L, Potassium 2.3 L*, Chloride 85 L, Carbon Dioxide 33.0 H, Anion Gap 11, BUN 80 H, Creatinine 2.41 H, Estim Creat Clear Calc 21.27, Est GFR (MDRD) Af Amer 33 L, Est GFR (MDRD) Non-Af 28 L, BUN/Creatinine Ratio 33.2 H, Glucose 189 H, Serum Osmolality 300, Uric Acid 9.9 H, Calcium 8.6 Charges/Coding Visit Charges Inpatient E&M: 31078 Subs Hosp L2
[2023-12-11 09:13] LABS: Anion Gap 11 (5-15); BUN 80 mg/dL (7-18); BUN/Creat Ratio 33.2 RATIO (10-20); Calcium,Total 8.6 mg/dL (8.5-10.1); Chloride 85 mmol/L (98-107); Creatinine, Serum 2.41 mg/dL (0.70-1.30); EST Glomerular Filtration Rate 28 mL/min (>60); Est Glom Filt Rate - Afr Amer 33 mL/min (>60); Estimated Creatinine Clearance 21.27 ml/min; Glucose 189 mg/dL (74-106); Potassium 2.3 mmol/L (3.5-5.1); Sodium Level 129 mmol/L (136-145)
[2023-12-11] MEDS: Acetaminophen 325 MG Tablet 650 MG PO (09:28)
[2023-12-11] MEDS: Potassium Chloride 10mEq/100mL 10 MEQ/100 ML IV.SOLN. 100 MEQ IV BOLUS ×4 (09:55→15:13)
--- NOTE | 2023-12-11 10:50 | CASEMGMT ---
Social Work SW attempted to meet w/pt as pt has been tearful. Pt very tearful at the moment, pt is stating his arm hurts. RN in room, states pt's IV infiltrated. She is putting ice on his arm and the CAR WRECKER Staci came in, is trying to adjust pt in the bed to make him more comfortable. Pt stating he is hurting all over, and stating is in so much pain. SW attempted to offer support, however pt not really able to speak w/SW at this time. SW can check w/pt later in his hospitalization for support. CARLOS A Deng
[2023-12-11 11:42] LABS: Uric Acid 9.9 mg/dL (3.5-7.2)
[2023-12-11] MEDS: Empagliflozin 25 MG Tablet PO (11:50)
--- NOTE | 2023-12-11 11:50 | PCM.CONS.R ---
Assessment & Plan Assessment/Plan (1) Acute kidney injury superimposed on chronic kidney disease: (2) Acute hypokalemia: (3) Acute hypotension: (4) Acute hyponatremia: (5) Chronic kidney disease: PLAN: Plan This is a very pleasant 78-year-old male with past medical history significant for diabetes mellitus type 2, hypertension, coronary artery disease, heart failure preserved EF with diastolic dysfunction, moderate pulmonary hypertension, KIMBERLY, hyperlipidemia, CKD who is known to our group as patient has known history of chronic kidney disease and also had episode of hypervolemic acute kidney injury who required hemodialysis for short period of time. Patient was started on hemodialysis as he had had recurrent hospitalizations for fluid overload, CEE and heart failure, patient began a trial of dialysis on September 17. A tunneled hemodialysis catheter was placed in the hospital and arrangements made for patient to dialyze at [facility] on a Thursday schedule. Overall volume status had improved, patient's weight at the start of dialysis was around 85 to 90 kg. In the outpatient kidney center patient's best weight 72.7 kg (160 pounds) on October 02. Unfortunately patient was then admitted to the hospital for septic shock due to MRSA bacteremia, tunneled HD catheter was removed on October 06. TTE showed no vegetation. Patient developed left eye vision changes, ophthalmology concern for endophthalmitis and patient was transferred to [facility] for further evaluation and treatment. Patient remained off hemodialysis at [facility]. He was discharged home with PICC line and vancomycin. He is no longer on vancomycin. Patient's last hemodialysis session was October 05, 2023. Patient was then evaluated in our office about a month ago and at that time had been complaining of worsening lower extremity edema, he had 2-3+ pitting edema bilateral legs and his weight was up to around 190 pounds. He had been on torsemide 40 mg in the morning and 20 mg in the afternoon, torsemide was increased to 40 mg twice daily along with Zaroxolyn 5 mg daily. Patient's weight had improved to around 160lbs (73kg). Patient was then admitted to the hospital November 28 for right hand swelling, CEE, hypokalemia. Discharged home 12/02 on torsemide 40 mg bid, Metolazone 5 mg daily and potassium 20 mg daily and weight was ~74kg. During that hospitalization creatinine peak 2.83 mg/dL (331) and improved to 1.91 mg/dL at time of discharge on December 02. Yesterday creatinine 2.60/K+ 2.7, today patient's creatinine is 2.41 and K+ 2.3. Sodium was 120 yesterday in emergency room and today sodium is 129 (during last hospitalization sodium ranged 121 (this is navya on 11/28) and improved to 130 on 12/02). Patient's weight is around 70kg now. CKD stage III/IV with baseline creatinine around low 2 mg/dL range. Overall there has been some improvement in renal function with holding diuretics and giving gentle IV fluids. CEE possibly from volume depletion, overdiuresis and decreased renal perfusion with hypotension. Overall volume status looks good though patient does appear to be mildly hypovolemic. He is nonoliguric. 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 Labs ordered for the morning. Hypokalemia likely from diuresis and poor oral intake. Potassium is low and is being repleted. Yesterday mag level 2.2. Also reviewed with patient recommend trying to increase solute intake and choosing foods higher in potassium. Labs ordered for this evening and tomorrow. Patient was noted to be hypotensive in the emergency room yesterday upon presentation with systolic blood pressures as low as 75. Chest x-ray did not show any evidence of acute cardiopulmonary disease with fluid. Continue with gentle IV fluids. Patient is not on any antihypertensives now. Slight improvement in bps now. Further orders forthcoming as hospitalization evolves, thank you for allowing us to participate in the care of Mr. Osman. HPI Consult Data Date of Consult: 12/11/23 HPI Narrative HPI Narrative: ANTWAN OSMAN, is a 78 M with past medical history significant for diabetes mellitus type 2, hypertension, coronary artery disease, heart failure preserved EF with diastolic dysfunction, moderate pulmonary hypertension, KIMBERLY, hyperlipidemia, CKD who is known to our group as patient has known history of chronic kidney disease and also had episode of hypervolemic acute kidney injury who required hemodialysis for short period of time who presented emergency room yesterday with complaints of weakness and inability to perform ADLs. Nephrology consulted in view of rising serum creatinine and hyponatremia. Patient reports after last hospitalization appetite was poor, he felt weak had difficult time getting up and moving around. Patient reports his weight yesterday morning at home was 154 pounds. Denies any diarrhea. No NSAIDs. No vomiting. Patient is complaining of leg and feet cramping. [facility] Medical History Abnormal ankle brachial index (LOKI) Acute hypoxic respiratory failure Anemia due to stage 3b chronic kidney disease Back pain BPH (benign prostatic hyperplasia) Cardiology follow-up encounter CHF NYHA class III Chronic combined systolic and diastolic CHF (congestive heart failure) Chronic kidney disease, stage 3b Chronic kidney disease, stage 4 (severe) Claudication Constipation CPAP (continuous positive airway pressure) dependence Diabetes Diarrhea Dietary restriction Elevated troponin (01/2021) Essential (primary) hypertension Gout Heartburn History of echocardiogram History of edema History of irregular heartbeat History of non-ST elevation myocardial infarction (NSTEMI) (07/25/21) History of pain when walking History of steroid therapy History of tobacco use HLD (hyperlipidemia) Hypertension Hypertrophic cardiomyopathy Hypokalemia Joint pain Lactic acidosis Left bundle branch block Leg cramps Leukocytosis Longstanding persistent atrial fibrillation Mitral valve insufficiency Night sweats 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 Obesity (BMI 30.0-34.9) KIMBERLY (obstructive sleep apnea) Persistent atrial fibrillation Poor appetite Presence of implantable pulmonary artery pressure and heart rate monitoring system (03/25/21) Renal infarct Restless legs Secondary pulmonary arterial hypertension Shortness of breath on exertion Wears glasses Home Medications finasteride 5 mg tablet 5 mg PO DAILY PROSTATE 12/19/20 [History Last Taken 12/10/23] pantoprazole 40 mg tablet,delayed release 40 mg PO DAILY ACID REFLUX 08/29/23 [History Last Taken 12/10/23] allopurinol 100 mg tablet 200 mg (2 x 100 mg) PO DAILYCM GOUT #30 tabs 09/03/23 [Rx Last Taken 12/10/23] pen needle, diabetic 33 gauge x 3/16 #100 ea 09/03/23 [Rx Last Taken Unknown] aspirin 81 mg tablet,delayed release (Adult Aspirin Regimen) 81 mg PO DAILY HEART HEALTH 11/10/23 [History Last Taken 12/10/23] atorvastatin 20 mg tablet 20 mg PO DAILY CHOLESTEROL #90 tabs 11/10/23 [Rx Last Taken 12/10/23] insulin lispro 100 unit/mL subcutaneous pen 20 unit subcut TID DIABETES 11/10/23 [History Last Taken 12/10/23] mecobalamin (vitamin B12) 10,000 mcg solution for injection 100 mcg IM Q30D SUPPLEMENT 11/10/23 [History Last Taken Unknown] carvedilol 6.25 mg tablet 6.25 mg PO BID HEART #180 tabs 11/11/23 [Rx Last Taken 12/10/23] gabapentin 100 mg capsule 200 mg PO QHS NEUROPATHY 11/17/23 [History Last Taken 12/09/23] potassium chloride 20 mEq tablet,extended release 20 meq PO DAILY SUPPLEMENT 11/17/23 [History Last Taken 12/10/23] dapagliflozin propanediol 10 mg tablet (Farxiga) 10 mg PO DAILY BLOOD SUGARS 11/29/23 [History Last Taken 12/10/23] ferrous sulfate 325 mg (65 mg iron) tablet 325 mg PO DAILY SUPPLEMENT 12/08/23 [History Last Taken 12/10/23] torsemide 20 mg tablet 40 mg PO DAILY EDEMA 12/08/23 [History Last Taken 12/10/23] warfarin 2 mg tablet 3 mg PO MOFR BLOOD THINNER 12/08/23 [History Last Taken 12/06/23] epinephrine 0.3 mg/0.3 mL injection, auto-injector 0.3 mg IM DAILY PRN ANAPHYLAXIS 12/10/23 [History Last Taken Unknown] insulin glargine 100 unit/mL (3 mL) subcutaneous pen (Lantus Solostar U-100 Insulin) 22 unit subcut 1000 DIABETES 12/10/23 [History Last Taken 12/10/23] warfarin 2 mg tablet 2 mg PO SUTUWETHSA BLOOD THINNER 12/10/23 [History Last Taken 12/10/23] Allergy/AdvReac Type Severity Reaction Status Date / Time metoprolol AdvReac bradycardia Verified 12/10/23 14:03 rivaroxaban [From Xarelto] AdvReac Bleeding Verified 12/10/23 14:03 Family History Father Heart disease Sister Heart disease Brother Heart disease Other Arthritis CVA (cerebral vascular accident) Depression Mental disorder Surgical History History of appendectomy History of cataract extraction History of left heart catheterization (02/19/21) History of transurethral resection of prostate (01/2019) History of ventricular septal myectomy (2000) Hx of umbilical hernia repair Social History Smoking Status: Never smoker second hand exposure: Yes alcohol intake: never caffeine: Yes Type: coffee Number of servings: 1 what type of physical activity do you participate in: other details: treadmill frequency: daily ROS ROS Narrative As in HPI and past medical history Physical Exam Narrative Alert and orient x 3, no apparent distress S1, S2, RRR Lung sounds clear. No wheezes, rhonchi or rales Abdomen soft, nontender positive bowel sounds No edema Lab / Micro Data 12/11/23 06:45 12/11/23 06:45 Labs: Laboratory Results - last 24 hr 12/10/23 15:03: WBC 27.9 H, RBC 4.23 L, Hgb 11.7 L, Hct 35.5 L, MCV 83.9, MCH 27.7, MCHC 33.0, RDW Std Deviation 51.9 H, RDW Coeff of Kiersten 17.3 H, Plt Count 242, MPV 12.1 H, Immature Gran % (Auto) 1.400 H, Neut % (Auto) 91.0 H, Lymph % (Auto) 2.3 L, [place] % (Auto) 5.0, Eos % (Auto) 0.0, Baso % (Auto) 0.3, Absolute Neuts (auto) 25.4 H, Absolute Lymphs (auto) 0.63 L, Nucleated RBC % 0, Differential Comment SEE COMMENT, Platelet Estimate ADEQUATE, RBC Morphology N CHROM, Anisocytosis RARE, PT 20.5 H, INR 1.8, Sodium 120 L, Potassium 2.7 L*, Chloride 74 L*, Carbon Dioxide 34.0 H, Anion Gap 12, BUN 86 H, Creatinine 2.60 H, Est GFR (MDRD) Af Amer 31 L, Est GFR (MDRD) Non-Af 25 L, BUN/Creatinine Ratio 33.1 H, Glucose 309 H, Calcium 9.1, Troponin I High Sens 413 H* 12/10/23 17:00: Phosphorus 3.9, Magnesium 2.2, Troponin I High Sens 394 H* 12/10/23 17:50: Lactic Acid 3.0 H* 12/10/23 21:52: Troponin I High Sens 381 H* 12/10/23 22:19: Lactic Acid 2.9 H* 12/10/23 22:24: POC Glucose 346 H 12/11/23 00:27: Urine Color Yellow, Urine Clarity Clear, Urine pH 7.0, Ur Specific [place] 1.010, Urine Protein 15 H, Urine Glucose (UA) 1000 H, Urine Ketones Negative, Urine Occult Blood 25 H, Urine Nitrite Negative, Urine Bilirubin Negative, Urine Urobilinogen Normal, Ur Leukocyte Esterase 500 H, Urine RBC 10-25 SEEN, Urine WBC 0-5 SEEN, Ur Squamous Epith Cells 0-5 SEEN, Urine Bacteria 0 SEEN, Urine Mucus 0 SEEN 12/11/23 06:08: POC Glucose 197 H 12/11/23 06:45: WBC 21.0 H, RBC 3.53 L, Hgb 9.8 L, Hct 30.1 L, MCV 85.3, MCH 27.8, MCHC 32.6, RDW Std Deviation 53.2 H, RDW Coeff of Kiersten 17.3 H, Plt Count 223, MPV 12.2 H, Immature Gran % (Auto) 1.600 H, Neut % (Auto) 86.8 H, Lymph % (Auto) 5.5 L, [place] % (Auto) 5.9, Eos % (Auto) 0.1, Baso % (Auto) 0.1, Absolute Neuts (auto) 18.3 H, Absolute Lymphs (auto) 1.15, Nucleated RBC % 0, PT 21.5 H, INR 1.9, Sodium 129 L, Potassium 2.3 L*, Chloride 85 L, Carbon Dioxide 33.0 H, Anion Gap 11, BUN 80 H, Creatinine 2.41 H, Estim Creat Clear Calc 21.27, Est GFR (MDRD) Af Amer 33 L, Est GFR (MDRD) Non-Af 28 L, BUN/Creatinine Ratio 33.2 H, Glucose 189 H, Uric Acid 9.9 H, Calcium 8.6 Micro: Microbiology 12/10/23 15:03 Stool Stool Occult Blood (MARYANA) - Final Imaging Radiology Impression Chest X-Ray 12/10/23 17:20 IMPRESSION: No radiographic evidence of acute cardiopulmonary disease. Electronically Signed: Ariel Hairston MD at 18:04 EDT ,
[2023-12-11 11:56] LABS: Osmolality, Serum 300 mOsm/KG (280-301)
--- NOTE | 2023-12-11 13:00 | CASEMGMT ---
ALEENA PONCE Chart review: Patient was admitted 11/28-12/03/23 for hypokalemia. See ALEENA PONCE assessment from 11/30/23. Patient was discharged to home with resumption of C with [employer], family support and follow-up plans in place. Patient returned to [facility] ED for dizziness, patient admitted for hyponatremia and hypokalemia. ALEENA PONCE in to discuss readmission and needs at discharge. Patient states he had attended follow-up appts and was taking medications as directed. Patient states they discuss possible SNF or Hospice. Will monitor progress with therapy. CM will continue to follow this patient and plan for a safe discharge.
[2023-12-11] MEDS: Potassium Chloride Oral Tablet 20 MEQ 60 MEQ PO (13:12)
[2023-12-11] MEDS: 0.9% Normal Saline (1000mL) 1,000 ML 100 ML IV ×2 (13:14→22:45)
--- NOTE | 2023-12-11 14:58 | CASEMGMT ---
ALEENA CM updated by therapy that patient would benefit from SNF at discharge. RN CM in to discuss with patient. Patient states he is willing to go to SNF and will be discussing with family when they visit to night. CM to provide list of SNF to patient. CM will continue to follow this patient and plan for a safe discharge.
[2023-12-11 16:10] LABS: Bedside Glucose 239 mg/dL (74-106)
[2023-12-11 16:10] LABS: Bedside Glucose 267 mg/dL (74-106)
[2023-12-11] MEDS: Colchicine 0.6 MG TABLET PO (16:59)
[2023-12-11 18:18] LABS: Anion Gap 8 (5-15); BUN 75 mg/dL (7-18); BUN/Creat Ratio 31.9 RATIO (10-20); Calcium,Total 8.8 mg/dL (8.5-10.1); Chloride 89 mmol/L (98-107); Creatinine, Serum 2.35 mg/dL (0.70-1.30); EST Glomerular Filtration Rate 29 mL/min (>60); Est Glom Filt Rate - Afr Amer 34 mL/min (>60); Estimated Creatinine Clearance 21.81 ml/min; Glucose 284 mg/dL (74-106); Potassium 3.8 mmol/L (3.5-5.1); Sodium Level 127 mmol/L (136-145)
[2023-12-11] MEDS: Gabapentin 100 MG Capsule PO (21:59)
[2023-12-11] MEDS: Carvedilol 3.125 MG TABLET PO (21:59)
[2023-12-11 22:28] LABS: Bedside Glucose 319 mg/dL (74-106)
[2023-12-12 02:56] VITALS: BP 119/52; PULSE 70; RESP 14; TEMP 37; O2SAT 99
[2023-12-12 03:33] LABS: Osmolality, Urine 456 mOsm/KG
[2023-12-12 03:42] LABS: Protein, Urine (Random) 35.2 mg/dL (<11.9); Protein:Creat Ratio 1051 mg/g CRE (0-200); Urine Chloride 30 mmol/L (Not Establ.); Urine Sodium 21 mmol/L (Not Establ.)
[2023-12-12 05:10] LABS: International Normalized Ratio 2.1; Prothrombin Time (Protime)PT. 23.4 SECONDS (11.7-14.9)
[2023-12-12 05:27] LABS: Anion Gap 8 (5-15); BUN 69 mg/dL (7-18); BUN/Creat Ratio 32.9 RATIO (10-20); Calcium,Total 8.1 mg/dL (8.5-10.1); Chloride 93 mmol/L (98-107); EST Glomerular Filtration Rate 32 mL/min (>60); Est Glom Filt Rate - Afr Amer 39 mL/min (>60); Glucose 215 mg/dL (74-106); Potassium 3.1 mmol/L (3.5-5.1); Sodium Level 129 mmol/L (136-145)
[2023-12-12] MEDS: Heparin Injection (Vial) 5,000 UNIT/ML VIAL 5000 UNIT SC ×3 (05:37→21:05)
[2023-12-12 06:02] LABS: Bedside Glucose 187 mg/dL (74-106)
[2023-12-12] MEDS: Insulin Lispro 100 UNIT/ML INSULN.PEN SC ×4 (06:16→21:04)
[2023-12-12 08:49] VITALS: BP 135/69; PULSE 66; RESP 18; TEMP 36.6; O2SAT 96
[2023-12-12] MEDS: Insulin Glargine-YFGN 100 UNIT/ML Pen 8 UNIT SC ×2 (08:53→13:42)
[2023-12-12] MEDS: Ferrous Sulfate 325 MG Tablet PO (08:54)
[2023-12-12] MEDS: Allopurinol 100 MG Tablet 200 MG PO (08:54)
[2023-12-12] MEDS: Pantoprazole Sodium 40 MG Tablet PO (08:54)
[2023-12-12] MEDS: Aspirin E.C. 81 MG Tablet PO (08:54)
[2023-12-12] MEDS: Atorvastatin Calcium 20 MG Tablet PO (08:54)
[2023-12-12] MEDS: Carvedilol 3.125 MG TABLET PO ×2 (08:55→21:05)
[2023-12-12] MEDS: Finasteride 5 MG Tablet PO (08:55)
[2023-12-12] MEDS: Empagliflozin 25 MG Tablet PO (08:57)
[2023-12-12] MEDS: 0.9% Normal Saline (1000mL) 1,000 ML 100 ML IV (08:58)
[2023-12-12 09:38] LABS: Magnesium 1.7 mg/dL (1.6-2.6)
[2023-12-12 09:46] LABS: Phosphorus 1.6 mg/dL (2.5-4.9)
[2023-12-12] MEDS: Potassium Chloride Oral Tablet 20 MEQ 40 MEQ PO (10:56)
[2023-12-12] MEDS: Acetaminophen 500 MG Tablet 1000 MG PO ×2 (11:59→21:06)
[2023-12-12] MEDS: Insulin Glargine-YFGN 100 UNIT/ML Pen 13 UNIT SC (12:00)
[2023-12-12 12:22] LABS: Bedside Glucose 346 mg/dL (74-106)
--- NOTE | 2023-12-12 12:34 | PCM.PN.HOSP ---
Reason for Visit Reason for Visit: Diagnoses Hypo-osmolality and hyponatremia (12/10/23) Acidosis, unspecified (12/10/23) Hypokalemia (12/10/23) Hypoxemia (12/10/23) Syncope and collapse (12/10/23) Objective Data Objective Data Vital Signs: Vital Signs Temp Pulse Resp BP Pulse Ox O2 Del Method O2 Flow Rate 97.9 F 66 18 135/69 H 96 Nasal Cannula 2 12/12/23 08:49 12/12/23 08:49 12/12/23 08:49 12/12/23 08:49 12/12/23 08:49 12/12/23 11:08 12/12/23 11:08 FiO2 21 12/10/23 22:20 Oxygen Flow Rate (L/min) 2 Oxygen Delivery Method Nasal Cannula Weight: 156 lb 15.506 oz Body Mass Index (BMI) 26.1 Intake & Output: Intake and Output for Last 24 Hours 12/10/23 12/11/23 12/12/23 23:59 23:59 23:59 Intake Total 1280 / 1280 2992.92 / 2992.92 1320 / 1320 Output Total 400 / 400 1050 / 1050 500 / 500 Balance 880 / 880 1942.92 / 1942.92 820 / 820 Lab / Micro Data 12/11/23 06:45 12/12/23 04:35 Labs: Laboratory Results - last 24 hr 12/11/23 11:44: POC Glucose 267 H 12/11/23 15:19: POC Glucose 239 H 12/11/23 17:57: Sodium 127 L, Potassium 3.8, Chloride 89 L, Carbon Dioxide 30.0, Anion Gap 8, BUN 75 H, Creatinine 2.35 H, Estim Creat Clear Calc 21.81, Est GFR (MDRD) Af Amer 34 L, Est GFR (MDRD) Non-Af 29 L, BUN/Creatinine Ratio 31.9 H, Glucose 284 H, Calcium 8.8 12/11/23 22:01: POC Glucose 319 H 12/12/23 03:00: Urine Osmolality 456, U Random Total Protein 35.2 H, Ur Random Sodium 21, Urine Creatinine 33.50, Protein/Creatinin Ratio 1051 H, Urine Potassium 40.0, Urine Chloride 30 12/12/23 04:35: PT 23.4 H, INR 2.1, Sodium 129 L, Potassium 3.1 L, Chloride 93 L, Carbon Dioxide 28.0, Anion Gap 8, BUN 69 H, Creatinine 2.10 H, Estim Creat Clear Calc 24.40, Est GFR (MDRD) Af Amer 39 L, Est GFR (MDRD) Non-Af 32 L, BUN/Creatinine Ratio 32.9 H, Glucose 215 H, Calcium 8.1 L, Phosphorus 1.6 L, Magnesium 1.7 12/12/23 05:36: POC Glucose 187 H 12/12/23 11:57: POC Glucose 346 H Micro: Microbiology 12/11/23 13:40 Stool Stool Occult Blood (MARYANA) - Final 12/10/23 15:03 Stool Stool Occult Blood (MARYANA) - Final Physical Exam Narrative Seen and examined. Patient complain of pain all over mainly on the joints of hands elbows and predominantly bilateral knees. Patient has arthritis. Has hyponatremia and hypokalemia Discharge recently on 12/03/2019 after days of hospitalization. Patient admitted with 2 syncope and decreased ADL and not doing well at home. He also complained of diffuse aches and pain in whole body. Physical exam General: Alert, Oriented x3, Cooperative HEENT: Atraumatic, PERRLA, EOMI, Normocephalic Oral: No Gingival or Mucosal Lesions/ Ulcerations Neck: Supple, No JVD, Negative Carotid Bruits Chest wall/Lungs: Air entry diminished in bilateral lung bases. No crepitation/rhonchi Cardiovascular: Regular rate, Regular Rhythm, Normal S1, Normal S2, No M/G/R Abdomen: Bowel Sounds Present, Soft, Non Tender, Non-Distended : No dysuria. No renal angle tenderness. No suprapubic tenderness. Extremities: No edema, Capillary Refill Less than 3 Seconds Skin: Bruises/subcutaneous ecchymosis on both upper extremities Musculoskeletal: Tenderness over MCP joint PIP elbow and bilateral knee joints. ROM restricted. Joint deformity present over first second third bilateral MCP joints. ROM restricted of multiple joints. Muscle strength 4/5 at knees and hip joints Neurological: Cranial nerves II-XII grossly intact, DTR 2+/4. Gait not examined. No acute focal neurological deficit. Psych/Mental Status: Flat affect Assessment & Plan Assessment/Plan (1) Acidosis, lactic: (2) Hypoxia: (3) Acute hyponatremia: (4) Syncope and collapse: (5) Acute hypokalemia: PLAN: Plan 78-year-old elderly gentleman was admitted with syncopal episode 2, on the day prior and on the day of admission. There is no seizure activity or incontinence per the son. Lasted 10 to 15 seconds. He didn't have postictal confusion after the episode. Prior to that patient also was seen in the ED on Thursday when he had 2 episodes of becoming stiff. Chief complaint was hyperglycemia. 1. 2 episodes of syncope, possible orthostatic hypotension from diuretic/vasovagal complicated with generalized weakness and debility: Patient is states when he stands up he feels dizzy and passes out although last evening he stood up he did not feel dizzy. Possible due to hypotension or Last 2D echo in October 2023 shows LV normal in size and systolic function, 53%. 1-2+ MR 1-2+ TR left atrial cavity is severely dilated RV normal systolic function. RVSP 51 mmHg consistent with moderate pulmonary hypertension. Status post myomectomy in 2000 and history of hypertrophic cardiomyopathy. No significant LVOT gradient at rest or with Valsalva. No DEVAUGHN. Abnormal RWMA due to LBBB 12/11: On 12/10, blood pressure was low systolic 76/46 on supine and standing 70/47, sitting 88/59 which did not show significant or change in heart rate. IV fluid resuscitated.Today 135/69. Dizziness has resolved. 2. Generalized weakness and debility, adult failure to thrive, decreased ADL, chronic RA, gouty arthritis and degenerative: patient has degenerative arthritis of knees, chronic RA with MCP and elbow joints and also seems gouty arthritis. Serum uric acid elevated. Patient was given colchicine 6 mg but with decreased kidney function CKD stage IV 3 mg once daily recommended but pharmacy has only 6 mg capsule which cannot be broken. Patient also not good candidate for NSAIDs or prednisone because of multiple comorbidities and hyperglycemia. 3. Electrolyte abnormality: Hyponatremia hypokalemia and hypochloremia: IV fluid replacement. IV potassium replacement ordered. Patient seems to isovolemic. Scheduling Assistant consulted. Hold torsemide. 12/11: Sodium 129 did not show improvement with IV fluid replacement. Urine osmolality more than serum sodium. Serum magnesium 1.7, phosphorus 1.6. Electrolyte replacement ordered. 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 Fluid restriction 1500 mill per day. TSH and cortisol ordered for tomorrow AM 4. CAD status post non-STEMI, chronic combined HFrEF and HFpEF, class III CHF, hypertrophic cardiomyopathy status post myomectomy, persistent A-fib status post pacemaker: Patient cardiac medications resumed with holding parameters. Patient has chronically elevated troponin, as far back in July 2021. Denies chest pain. This time troponin decreased from 413-381. I do not think patient has non-STEMI or ACS. 2D echo as described above 12/11: INR 2.1. Continue dose of warfarin. 5. Chronic right hand swelling with history of RA and gout: Patient complain of pain in the joints of and leg. He history of gout. On allopurinol. 1 dose colchicine 0.6 mg ordered.During previous admission in first week of November 2023, MRI of the right hand showed well-defined marginal erosions with overhanging edges around the third PIP joint as well as the second and fourth MCP joints with surrounding gouty tophi admitted degenerative arthrosis with joint space narrowing of the PIP and DIP joints of the second through fifth digits. 6.. Essential HTN and dyslipidemia: Coreg and torsemide were held. Monitor as per vitals and hemodynamic changes. Resume Lipitor ? Continue with Coumadin, INR 1.9. Warfarin dose increased. On warfarin 3 mg on Thursday and Thursday, increased to 4 mg. Rest warfarin 2 mg on other days continued. 3. DM2 with CKD stage IV patient creatinine has been about 20-25 since January 2021. Patient has been on dialysis in the recent past. Scheduling Assistant consulted. ? Continue with empagliflozin. ? Glucose around 200. Holding long-acting insulin. Accu-Chek before meals and at bedtime insulin coverage Humalog sliding scale. ? monitor make adjustments as necessary 12/11: Patient has hyperglycemia, glucose between 250?350. Lantus and Humalog insulin increased appropriately 4. BPH No acute issues. ? Continue with finasteride 5. GERD ? Stable/continue with PPI 6. Rheumatoid arthritis ? This explains his chronically elevated white blood cell count ? He was on prednisone however developed systemic MRSA infection due to infected dialysis catheter line during previous admission in October 2023 DVT: Coumadin Clinical Impression(s) from Imaging Studies Chest X-Ray 12/10/23 17:20 IMPRESSION: No radiographic evidence of acute cardiopulmonary disease. Microbiology Past 72 Hours 12/11/23 13:40 Stool Stool Occult Blood (MARYANA) - Final 12/10/23 15:03 Stool Stool Occult Blood (MARYANA) - Final Laboratory Results 12/11/23 11:44: POC Glucose 267 H 12/11/23 15:19: POC Glucose 239 H 12/11/23 17:57: Sodium 127 L, Potassium 3.8, Chloride 89 L, Carbon Dioxide 30.0, Anion Gap 8, BUN 75 H, Creatinine 2.35 H, Estim Creat Clear Calc 21.81, Est GFR (MDRD) Af Amer 34 L, Est GFR (MDRD) Non-Af 29 L, BUN/Creatinine Ratio 31.9 H, Glucose 284 H, Calcium 8.8 12/11/23 22:01: POC Glucose 319 H 12/12/23 03:00: Urine Osmolality 456, U Random Total Protein 35.2 H, Ur Random Sodium 21, Urine Creatinine 33.50, Protein/Creatinin Ratio 1051 H, Urine Potassium 40.0, Urine Chloride 30 12/12/23 04:35: PT 23.4 H, INR 2.1, Sodium 129 L, Potassium 3.1 L, Chloride 93 L, Carbon Dioxide 28.0, Anion Gap 8, BUN 69 H, Creatinine 2.10 H, Estim Creat Clear Calc 24.40, Est GFR (MDRD) Af Amer 39 L, Est GFR (MDRD) Non-Af 32 L, BUN/Creatinine Ratio 32.9 H, Glucose 215 H, Calcium 8.1 L, Phosphorus 1.6 L, Magnesium 1.7 12/12/23 05:36: POC Glucose 187 H 12/12/23 11:57: POC Glucose 346 H Charges/Coding Visit Charges Inpatient E&M: 65331 Subs Hosp L2
--- NOTE | 2023-12-12 13:37 | CASEMGMT ---
Social Work Pt's son Everardo here, asked to speak w/SW. SW spoke w/son Everardo and daughter Michelle in the hallway in regard to discharge plan. They would like to go to TCU, SW explained can make a referral but there may not be any beds. SW asked them to make additional choices and let SW know. They will either call this SW today or call SW on Thursday w/choices. Son als asked about some of the demographics on the POA document completed on the last admission, as some of the contact information was incorrect. SW corrected the information on the document for pt and family. SW called TCU, message left, will follow up when son gets back w/additional choices. CARLOS A Deng
[2023-12-12] MEDS: Magnesium Chloride 64 MG Delay Rel.Tablet 128 MG PO (13:41)
[2023-12-12] MEDS: Na Biphos/Potassium Phosphate PACKET 1 PACKET PO ×2 (13:41→21:05)
[2023-12-12 14:16] LABS: Bedside Glucose 312 mg/dL (74-106)
[2023-12-12 14:18] VITALS: BP 126/66; PULSE 67; RESP 16; TEMP 36.1; O2SAT 94
--- NOTE | 2023-12-12 15:05 | CASEMGMT ---
Addendum entered by Trish Lebron 12/12/23 16:18: Social Work Referral sent to [facility] via [facility]. CARLOS A Deng Original Note: Social Work SW received a message back from [facility], there are no beds. SW let son know. He states their next choice is [facility], will speak w/pt about other choices. SW will make referral to [facility]. CARLOS A Deng
[2023-12-12] MEDS: Insulin Lispro 100 UNIT/ML INSULN.PEN 10 UNIT SC (16:43)
[2023-12-12] MEDS: Jantoven 2 MG Tablet PO (16:46)
[2023-12-12 17:08] LABS: Bedside Glucose 273 mg/dL (74-106)
[2023-12-12 21:00] VITALS: BP 128/66; PULSE 76; RESP 18; TEMP 36.6; O2SAT 100
[2023-12-12] MEDS: Gabapentin 100 MG Capsule PO (21:05)
[2023-12-12 22:19] LABS: Bedside Glucose 213 mg/dL (74-106)
[2023-12-13 03:30] VITALS: BP 106/60; PULSE 65; RESP 18; TEMP 36.6; O2SAT 96
[2023-12-13] MEDS: Acetaminophen 500 MG Tablet 1000 MG PO ×3 (06:20→21:25)
[2023-12-13] MEDS: Na Biphos/Potassium Phosphate PACKET 1 PACKET PO ×3 (06:20→21:26)
[2023-12-13] MEDS: Heparin Injection (Vial) 5,000 UNIT/ML VIAL 5000 UNIT SC ×3 (06:20→21:24)
[2023-12-13 06:51] LABS: International Normalized Ratio 2.4; Prothrombin Time (Protime)PT. 26.1 SECONDS (11.7-14.9)
[2023-12-13 07:29] LABS: Anion Gap 7 (5-15); BUN 55 mg/dL (7-18); BUN/Creat Ratio 31.1 RATIO (10-20); Calcium,Total 8.9 mg/dL (8.5-10.1); Chloride 96 mmol/L (98-107); Creatinine, Serum 1.77 mg/dL (0.70-1.30); EST Glomerular Filtration Rate 40 mL/min (>60); Est Glom Filt Rate - Afr Amer 48 mL/min (>60); Estimated Creatinine Clearance 28.95 ml/min; Glucose 227 mg/dL (74-106); Potassium 3.5 mmol/L (3.5-5.1); Sodium Level 132 mmol/L (136-145); Thyroid Stim Hormone (TSH) 0.97 uIU/mL (0.358-3.74)
[2023-12-13 07:30] VITALS: O2SAT 99
[2023-12-13] MEDS: Insulin Lispro 100 UNIT/ML INSULN.PEN SC ×4 (08:29→21:29)
[2023-12-13] MEDS: Insulin Lispro 100 UNIT/ML INSULN.PEN 10 UNIT SC ×3 (08:30→16:57)
[2023-12-13] MEDS: Insulin Glargine-YFGN 100 UNIT/ML Pen 18 UNIT SC (08:31)
[2023-12-13] MEDS: Carvedilol 3.125 MG TABLET PO ×2 (08:34→21:25)
[2023-12-13] MEDS: Ferrous Sulfate 325 MG Tablet PO (08:35)
[2023-12-13] MEDS: Allopurinol 100 MG Tablet 200 MG PO (08:35)
[2023-12-13] MEDS: Pantoprazole Sodium 40 MG Tablet PO (08:35)
[2023-12-13] MEDS: Finasteride 5 MG Tablet PO (08:36)
[2023-12-13] MEDS: Aspirin E.C. 81 MG Tablet PO (08:36)
[2023-12-13] MEDS: Atorvastatin Calcium 20 MG Tablet PO (08:37)
[2023-12-13] MEDS: Empagliflozin 25 MG Tablet PO (08:37)
[2023-12-13] MEDS: Magnesium Chloride 64 MG Delay Rel.Tablet 128 MG PO (08:37)
[2023-12-13 08:50] VITALS: BP 119/69; PULSE 69; RESP 16; TEMP 35.7; O2SAT 95
[2023-12-13 09:13] LABS: Bedside Glucose 201 mg/dL (74-106)
[2023-12-13] MEDS: Mupirocin Ointment 22gm Tube 1 APPLIC TOPICAL ×2 (13:23→21:26)
--- NOTE | 2023-12-13 13:23 | PCM.PN.HOSP ---
Reason for Visit Reason for Visit: Diagnoses Hypo-osmolality and hyponatremia (12/10/23) Acidosis, unspecified (12/10/23) Hypokalemia (12/10/23) Hypoxemia (12/10/23) Syncope and collapse (12/10/23) Objective Data Objective Data Vital Signs: Vital Signs Temp Pulse Resp BP Pulse Ox O2 Del Method O2 Flow Rate 96.2 F L 69 16 119/69 95 Room Air 2 12/13/23 08:50 12/13/23 08:50 12/13/23 08:50 12/13/23 08:50 12/13/23 08:50 12/13/23 08:50 12/13/23 07:30 FiO2 21 12/10/23 22:20 Oxygen Flow Rate (L/min) 2 Oxygen Delivery Method Room Air Weight: 156 lb 15.506 oz Body Mass Index (BMI) 26.1 Intake & Output: Intake and Output for Last 24 Hours 12/11/23 12/12/23 12/13/23 23:59 23:59 23:59 Intake Total 2992.92 / 2992.92 2300 / 2300 120 / 120 Output Total 1050 / 1050 1905 / 1905 900 / 900 Balance 1942.92 / 1942.92 395 / 395 -780 / -780 Lab / Micro Data 12/11/23 06:45 12/13/23 06:06 Labs: Laboratory Results - last 24 hr 12/12/23 13:45: POC Glucose 312 H 12/12/23 16:41: POC Glucose 273 H 12/12/23 21:03: POC Glucose 213 H 12/13/23 06:06: PT 26.1 H, INR 2.4, Sodium 132 L, Potassium 3.5, Chloride 96 L, Carbon Dioxide 29.0, Anion Gap 7, BUN 55 H, Creatinine 1.77 H, Estim Creat Clear Calc 28.95, Est GFR (MDRD) Af Amer 48 L, Est GFR (MDRD) Non-Af 40 L, BUN/Creatinine Ratio 31.1 H, Glucose 227 H, Calcium 8.9, TSH 0.97 12/13/23 08:25: POC Glucose 201 H Micro: Microbiology 12/12/23 16:15 Wound Abcess - Other Wound Culture - Preliminary Staphylococcus aureus 12/10/23 17:45 Blood Culture (Wb) - Right Hand Blood Culture - Preliminary No growth in 48 hours. 12/10/23 17:50 Blood Culture (Wb) - Anticubital Right Blood Culture - Preliminary No growth in 48 hours. 12/11/23 13:40 Stool Stool Occult Blood (MARYANA) - Final 12/10/23 15:03 Stool Stool Occult Blood (MARYANA) - Final Physical Exam Narrative Seen and examined. Patient complain of pain over the cyst of the head which was drained incompletely about 8 days ago on on last week Thursday by PCP. It is still draining. Patient not having signs and symptoms of systemic infection. Patient also has arthritis pain Has hyponatremia and hypokalemia Discharge recently on 12/03/2019 after days of hospitalization. Patient admitted with 2 syncope and decreased ADL and not doing well at home. He also complained of diffuse aches and pain in whole body. Physical exam General: Alert, Oriented x3, Cooperative HEENT: Atraumatic, PERRLA, EOMI, Normocephalic Oral: No Gingival or Mucosal Lesions/ Ulcerations Neck: Supple, No JVD, Negative Carotid Bruits Chest wall/Lungs: Air entry diminished in bilateral lung bases. No crepitation/rhonchi Cardiovascular: Regular rate, Regular Rhythm, Normal S1, Normal S2, No M/G/R Abdomen: Bowel Sounds Present, Soft, Non Tender, Non-Distended : No dysuria. No renal angle tenderness. No suprapubic tenderness. Extremities: No edema, Capillary Refill Less than 3 Seconds Skin: Bruises/subcutaneous ecchymosis on both upper extremities. Incompletely drained with purulent secretion from infected sebaceous cyst on hand. Musculoskeletal: Chronic mild tenderness over MCP joint PIP elbow and bilateral knee joints. ROM restricted. Joint deformity present over first second third bilateral MCP joints. ROM restricted of multiple joints. Muscle strength 4/5 at knees and hip joints Neurological: Cranial nerves II-XII grossly intact, DTR 2+/4. Gait not examined. No acute focal neurological deficit. Psych/Mental Status: Flat affect Assessment & Plan Assessment/Plan (1) Acidosis, lactic: (2) Hypoxia: (3) Acute hyponatremia: (4) Syncope and collapse: (5) Acute hypokalemia: PLAN: Plan 78-year-old elderly gentleman was admitted with syncopal episode 2, on the day prior and on the day of admission. There is no seizure activity or incontinence per the son. Lasted 10 to 15 seconds. He didn't have postictal confusion after the episode. Prior to that patient also was seen in the ED on Thursday when he had 2 episodes of becoming stiff. Chief complaint was hyperglycemia. 1. 2 episodes of syncope, possible orthostatic hypotension from diuretic/vasovagal complicated with generalized weakness and debility: Patient is states when he stands up he feels dizzy and passes out although last evening he stood up he did not feel dizzy. Possible due to hypotension or Last 2D echo in October 2023 shows LV normal in size and systolic function, 53%. 1-2+ MR 1-2+ TR left atrial cavity is severely dilated RV normal systolic function. RVSP 51 mmHg consistent with moderate pulmonary hypertension. Status post myomectomy in 2000 and history of hypertrophic cardiomyopathy. No significant LVOT gradient at rest or with Valsalva. No DEVAUGHN. Abnormal RWMA due to LBBB 12/11: On 12/10, blood pressure was low systolic 76/46 on supine and standing 70/47, sitting 88/59 which did not show significant or change in heart rate. IV fluid resuscitated.Today 135/69. Dizziness has resolved. 12/12: Blood pressure is in normal limit. No further syncope. 2. Generalized weakness and debility, adult failure to thrive, decreased ADL, chronic RA, gouty arthritis and degenerative: patient has degenerative arthritis of knees, chronic RA with MCP and elbow joints and also seems gouty arthritis. Serum uric acid elevated. Patient was given colchicine 6 mg but with decreased kidney function CKD stage IV 3 mg once daily recommended but pharmacy has only 6 mg capsule which cannot be broken. Patient also not good candidate for NSAIDs or prednisone because of multiple comorbidities and hyperglycemia. 3. Electrolyte abnormality: Hyponatremia hypokalemia and hypochloremia: IV fluid replacement. IV potassium replacement ordered. Patient seems to isovolemic. Enterprise Application Developer consulted. Hold torsemide. 12/11: Sodium 129 did not show improvement with IV fluid replacement. Urine osmolality more than serum sodium. Serum magnesium 1.7, phosphorus 1.6. Electrolyte replacement ordered. 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 Fluid restriction 1500 mill per day. TSH and cortisol ordered for tomorrow AM 12/12: Serum sodium improved to 132. Potassium 3.5. 4. CAD status post non-STEMI, chronic combined HFrEF and HFpEF, class III CHF, hypertrophic cardiomyopathy status post myomectomy, persistent A-fib status post pacemaker: Patient cardiac medications resumed with holding parameters. Patient has chronically elevated troponin, as far back in July 2021. Denies chest pain. This time troponin decreased from 413-381. I do not think patient has non-STEMI or ACS. 2D echo as described above 12/11: INR 2.1. Continue dose of warfarin. 12/12: INR 2.4. Infected sebaceous cyst of scalp incomplete right drain about 8 days ago as an outpatient: Patient not having signs and symptoms of systemic infection including fever or chills. Vitals are in normal range. Prelim wound culture shows 2+ gram-positive cocci, Staph aureus 3+. Mupirocin cream ordered on 12/11. Wound nurse consult with Betadine wash and dressing. 5. Chronic right hand swelling with history of RA and gout: Patient complain of pain in the joints of and leg. He history of gout. On allopurinol. 1 dose colchicine 0.6 mg ordered.During previous admission in first week of November 2023, MRI of the right hand showed well-defined marginal erosions with overhanging edges around the third PIP joint as well as the second and fourth MCP joints with surrounding gouty tophi admitted degenerative arthrosis with joint space narrowing of the PIP and DIP joints of the second through fifth digits. 6.. Essential HTN and dyslipidemia: Coreg and torsemide were held. Monitor as per vitals and hemodynamic changes. Resume Lipitor ? Continue with Coumadin, INR 1.9. Warfarin dose increased. On warfarin 3 mg on Thursday and Thursday, increased to 4 mg. Rest warfarin 2 mg on other days continued. 3. DM2 with CKD stage IV patient creatinine has been about 20-25 since January 2021. Patient has been on dialysis in the recent past. Enterprise Application Developer consulted. ? Continue with empagliflozin. ? Glucose around 200. Holding long-acting insulin. Accu-Chek before meals and at bedtime insulin coverage Humalog sliding scale. ? monitor make adjustments as necessary 12/11: Patient has hyperglycemia, glucose between 250?350. Lantus and Humalog insulin increased appropriately 12/12 glucose around 200. 4. BPH No acute issues. ? Continue with finasteride 5. GERD ? Stable/continue with PPI 6. Rheumatoid arthritis ? This explains his chronically elevated white blood cell count ? He was on prednisone however developed systemic MRSA infection due to infected dialysis catheter line during previous admission in October 2023 DVT: Coumadin Clinical Impression(s) from Imaging Studies Chest X-Ray 12/10/23 17:20 IMPRESSION: No radiographic evidence of acute cardiopulmonary disease. Microbiology Past 72 Hours 12/11/23 13:40 Stool Stool Occult Blood (MARYANA) - Final 12/10/23 15:03 Stool Stool Occult Blood (MARYANA) - Final Laboratory Results 12/11/23 11:44: POC Glucose 267 H 12/11/23 15:19: POC Glucose 239 H 12/11/23 17:57: Sodium 127 L, Potassium 3.8, Chloride 89 L, Carbon Dioxide 30.0, Anion Gap 8, BUN 75 H, Creatinine 2.35 H, Estim Creat Clear Calc 21.81, Est GFR (MDRD) Af Amer 34 L, Est GFR (MDRD) Non-Af 29 L, BUN/Creatinine Ratio 31.9 H, Glucose 284 H, Calcium 8.8 12/11/23 22:01: POC Glucose 319 H 12/12/23 03:00: Urine Osmolality 456, U Random Total Protein 35.2 H, Ur Random Sodium 21, Urine Creatinine 33.50, Protein/Creatinin Ratio 1051 H, Urine Potassium 40.0, Urine Chloride 30 12/12/23 04:35: PT 23.4 H, INR 2.1, Sodium 129 L, Potassium 3.1 L, Chloride 93 L, Carbon Dioxide 28.0, Anion Gap 8, BUN 69 H, Creatinine 2.10 H, Estim Creat Clear Calc 24.40, Est GFR (MDRD) Af Amer 39 L, Est GFR (MDRD) Non-Af 32 L, BUN/Creatinine Ratio 32.9 H, Glucose 215 H, Calcium 8.1 L, Phosphorus 1.6 L, Magnesium 1.7 12/12/23 05:36: POC Glucose 187 H 12/12/23 11:57: POC Glucose 346 H Charges/Coding Visit Charges Inpatient E&M: 58311 Subs Hosp L2
[2023-12-13 14:50] VITALS: BP 122/68; PULSE 64; RESP 16; TEMP 36.2; O2SAT 96
[2023-12-13] MEDS: Vancomycin IV 1,000 MG/200 ML BAG 200 MG IV (15:28)
--- NOTE | 2023-12-13 15:34 | PCM.RX.CS ---
Consult Antibiotic Management Pharmacy has been consulted to manage selected antibiotic: Vancomycin Type of Intervention Type of Consult: New start Suspected Infection Suspected Infection: Skin/Soft tissue Prior Doses of Antibiotics Prior Doses of Antibiotics Received/Current Regimen: Vancomycin 1000 mg IV x 1 given 12/13/23 @ 1528 Labs Labs: Sodium 132 mmol/L (136-145) L 12/13/23 06:06 Potassium 3.5 mmol/L (3.5-5.1) 12/13/23 06:06 Chloride 96 mmol/L (98-107) L 12/13/23 06:06 Carbon Dioxide 29.0 mmol/L (21.0-32.0) 12/13/23 06:06 Anion Gap 7 (5-15) 12/13/23 06:06 BUN 55 mg/dL (7-18) H 12/13/23 06:06 Creatinine 1.77 mg/dL (0.70-1.30) H 12/13/23 06:06 Est GFR (MDRD) Af Amer 48 mL/min (>60) L 12/13/23 06:06 Est GFR (MDRD) Non-Af 40 mL/min (>60) L 12/13/23 06:06 BUN/Creatinine Ratio 31.1 RATIO (10-20) H 12/13/23 06:06 Glucose 227 mg/dL (74-106) H 12/13/23 06:06 Microbiology Microbiology: Microbiology 12/12/23 16:15 Wound Abcess - Other Gram Stain - Final 12/12/23 16:15 Wound Abcess - Other Wound Culture - Preliminary Staphylococcus aureus 12/10/23 17:45 Blood Culture (Wb) - Right Hand Blood Culture - Preliminary No growth in 48 hours. 12/10/23 17:50 Blood Culture (Wb) - Anticubital Right Blood Culture - Preliminary No growth in 48 hours. 12/11/23 13:40 Stool Stool Occult Blood (MARYANA) - Final 12/10/23 15:03 Stool Stool Occult Blood (MARYANA) - Final Dosing Weight Weight used for dosin.2 kg Estimated Creatinine Clearance Estimated Creatinine Clearance: ~29 Goal Trough Goal Trough: 10-15 mcg/mL Pharmacy Plan for Drug Dosing Pharmacy Plan for Drug Dosing: Vancomycin 1000 mg IV x 1, followed by 500 mg IV Q24H based on weight and renal function. Pharmacy Service will continue to monitor and adjust dosing as required. Follow-Up Labs Follow-Up Labs: Trough: Vancomycin Date/Time Labs Ordered Labs to be done on [date and time ordered]: 12/15/23 @ 2171
[2023-12-13 15:56] LABS: Bedside Glucose 172 mg/dL (74-106)
[2023-12-13 16:50] LABS: Bedside Glucose 232 mg/dL (74-106)
[2023-12-13] MEDS: Jantoven 2 MG Tablet PO (16:59)
[2023-12-13 21:22] VITALS: BP 141/74; PULSE 84; RESP 18; TEMP 36.8; O2SAT 99
[2023-12-13] MEDS: Gabapentin 100 MG Capsule PO (21:33)
[2023-12-14 00:45] LABS: Bedside Glucose 227 mg/dL (74-106)
[2023-12-14 03:15] VITALS: BP 103/68; PULSE 80; RESP 18; TEMP 36.6; O2SAT 99
[2023-12-14] MEDS: Na Biphos/Potassium Phosphate PACKET 1 PACKET PO (05:12)
[2023-12-14] MEDS: Mupirocin Ointment 22gm Tube 1 APPLIC TOPICAL ×2 (05:12→13:42)
[2023-12-14] MEDS: Heparin Injection (Vial) 5,000 UNIT/ML VIAL 5000 UNIT SC ×2 (05:12→13:42)
[2023-12-14] MEDS: Acetaminophen 500 MG Tablet 1000 MG PO ×2 (05:13→13:43)
[2023-12-14 06:15] LABS: Prothrombin Time (Protime)PT. 30.6 SECONDS (11.7-14.9)
[2023-12-14 07:56] VITALS: O2SAT 96
[2023-12-14] MEDS: Insulin Lispro 100 UNIT/ML INSULN.PEN 10 UNIT SC ×3 (08:17→17:12)
[2023-12-14] MEDS: Insulin Lispro 100 UNIT/ML INSULN.PEN SC ×3 (08:18→17:12)
[2023-12-14 08:40] LABS: Absolute Neutrophil Count 11.1 X10^3/uL (2.0-7.7); Basophil# 0.05 X10^3/uL; Basophil% 0.4 % (0-1); Eosinophil# 0.28 X10^3/uL; Hematocrit 30.5 % (40-54); Hemoglobin 9.5 g/dL (13.0-16.5); Lymphocyte % 7.9 % (19-41); Mean Corp Hgb Conc 31.1 g/dL (32-36); Mean Corpuscular Hgb 27.6 pg (27.0-32.0); Mean Corpuscular Volume 88.7 fL (80-94); Mean Platelet Vol. 11.6 fl (6.2-12.0); Monocyte% 5.8 % (0-10); NRBC Flagged by Analyzer 0 % (0-5); Neutrophil # 11.12 X10^3/uL (2.7-7.7); Neutrophil % 80.4 % (47-70); Platelet Count 241 K/mm3 (150-450); RBC Distribution Width CV 17.5 % (11.6-14.6); Red Blood Count 3.44 M/mm3 (4.6-6.2); White Blood Count 13.8 K/mm3 (4.4-11.0)
[2023-12-14 08:42] LABS: Bedside Glucose 160 mg/dL (74-106)
[2023-12-14 08:50] LABS: Anion Gap 8 (5-15); BUN 54 mg/dL (7-18); BUN/Creat Ratio 33.3 RATIO (10-20); Calcium,Total 8.9 mg/dL (8.5-10.1); Chloride 96 mmol/L (98-107); Creatinine, Serum 1.62 mg/dL (0.70-1.30); EST Glomerular Filtration Rate 44 mL/min (>60); Est Glom Filt Rate - Afr Amer 53 mL/min (>60); Estimated Creatinine Clearance 31.64 ml/min; Glucose 163 mg/dL (74-106); Magnesium 1.8 mg/dL (1.6-2.6); Phosphorus 1.9 mg/dL (2.5-4.9); Potassium 3.8 mmol/L (3.5-5.1); Sodium Level 133 mmol/L (136-145)
[2023-12-14 09:10] VITALS: BP 141/66; PULSE 75; RESP 18; TEMP 36.6; O2SAT 100
[2023-12-14] MEDS: Magnesium Chloride 64 MG Delay Rel.Tablet 128 MG PO (09:15)
[2023-12-14] MEDS: Allopurinol 100 MG Tablet 200 MG PO (09:15)
[2023-12-14] MEDS: Ferrous Sulfate 325 MG Tablet PO (09:16)
[2023-12-14] MEDS: Carvedilol 3.125 MG TABLET PO (09:16)
[2023-12-14] MEDS: Atorvastatin Calcium 20 MG Tablet PO (09:16)
[2023-12-14] MEDS: Aspirin E.C. 81 MG Tablet PO (09:16)
[2023-12-14] MEDS: Empagliflozin 25 MG Tablet PO (09:16)
[2023-12-14 09:17] LABS: PTHIN 86.2 pg/mL (18.4-80.1)
[2023-12-14] MEDS: Pantoprazole Sodium 40 MG Tablet PO (09:17)
[2023-12-14] MEDS: Finasteride 5 MG Tablet PO (09:17)
[2023-12-14] MEDS: Insulin Glargine-YFGN 100 UNIT/ML Pen 18 UNIT SC (09:22)
--- NOTE | 2023-12-14 10:01 | CASEMGMT ---
[facility] able to [facility] patient. PAU called patient's son Everardo and let him know this information. PAU also notified Everardo that physician will be discharging patient today. Everardo said he will call patient and notify him. Everardo asked that SW wait to talk with patient about this as he would like to talk with him first. Plan: d/c to [facility] under skilled level of care. Patience DE PAZ
--- NOTE | 2023-12-14 10:35 | PCM.TXEXTCAR ---
Diet Diet Order/Speech Therapy: 12/12/23 12:03 Diet: Cardiac: Calorie-Controlled Food consistency:: Regular Liquid Consistency:: Regular/Thin Dietary Modifications:: Consistent Carbohydrate Sodium Restricted Type of Dietary Supplement:: Glucerna Shake Fluid restriction:: 1500 mL Diet Comments: 120mL glucerna shake w/ breakfast and dinner How many daily calories?: 1800 calorie Routine Orders/Code Status Code Status: DNRCC-A Wound(s) Head, posterior: Wound Type: Abscess Problem/Diagnosis (1) Acidosis, lactic: Status: Acute Code(s): E87.20 - Acidosis, unspecified (2) Hypoxia: Status: Acute Code(s): R09.02 - Hypoxemia (3) Acute hyponatremia: Status: Acute Code(s): E87.1 - Hypo-osmolality and hyponatremia (4) Syncope and collapse: Status: Acute Code(s): R55 - Syncope and collapse (5) Acute hypokalemia: Status: Acute Code(s): E87.6 - Hypokalemia Allergies/Procedures Done in Hospital Allergies metoprolol Adverse Reaction (Verified 12/10/23 14:03) bradycardia rivaroxaban [From Xarelto] Adverse Reaction (Verified 12/10/23 14:03) Bleeding Type of Care/Length of Stay Estimated LOS: Convalescent Care Less Than 30 days Type of Care Needed: Skilled Rehab Potential: Good Prognosis: Good Additional Orders/Day of Discharge Day of Discharge: 12/14/23 Dietary and Speech Recommendations Dietitian Recommendations/Changes: Will adjust diet to 1800 calorie, consistent carbohydrate; cardiac/sodium-restricted with 1500mL/day FR. Will add 120mL glucerna shake 2 times per day w/ breakfast and dinner meals. Additional ONS as needed if PO fails at meals. Discharge Plan Admission Admit Date/Time: 12/10/23 20:15 Attending Provider: Lee Guillory Primary Care Provider: Howard Escobar Consulting Providers: Titi Loomis Jayaprakas; Josh Velasco Discharge Orders/Prescriptions Prescriptions: New insulin lispro [Humalog KwikPen Insulin] 100 unit/mL Insulin Pen See Protocol subcut ACHS Qty: 0 0RF Protocol: 4. Sliding Scale Insulin High-Med Dosing Condition: 150-199 mg/dl = 2 units Condition: 200-259 mg/dl = 4 units Condition: 260-324 mg/dl = 6 units Condition: 325-374 mg/dl = 8 units Condition: 375-409 mg/dl = 10 units Condition: 410-449 mg/dl = 11 units Condition: Greater than 449 call physician Protocol Text: - Use for Total Daily Dose of Insulin 56-80 units - Patient who are insulin resistant or septic HIGH MEDIUM DOSING ALGORITHM acetaminophen 500 mg Tablet 1,000 mg PO Q8 Qty: 0 0RF insulin lispro [Humalog KwikPen Insulin] 100 unit/mL Insulin Pen 10 unit subcut TIDAC Qty: 0 0RF potassium, sodium phosphates 280-160-250 mg Powder In Packet 1 packet PO TID Qty: 0 0RF mupirocin 2 % Ointment 1 applic topical TID Qty: 0 0RF Protocol: *Topical Application Instructions APPLICATION INSTRUCTIONS: on head swelling/wound doxycycline hyclate 100 mg capsule 100 mg PO BID Qty: 20 0RF Continued finasteride 5 mg tablet 5 mg PO DAILY aspirin [Adult Aspirin Regimen] 81 mg tablet,delayed release (DR/EC) 81 mg PO DAILY insulin lispro 100 unit/mL insulin pen 20 unit subcut TID mecobalamin (vitamin B12) 10,000 mcg recon soln 100 mcg IM Q30D Rx Instructions: Inject 1,000 mcg intramuscularly ONCE A MONTH; FIRST OF THE MONTH atorvastatin 20 mg tablet 20 mg PO DAILY Qty: 90 3RF ferrous sulfate 325 mg (65 mg iron) tablet 325 mg PO DAILY warfarin 2 mg tablet 3 mg PO MOFR torsemide 20 mg tablet 40 mg PO DAILY Rx Instructions: TAKE TWO CAPSULES (40MG) BY MOUTH IN THE MORNING pantoprazole 40 mg tablet,delayed release (DR/EC) 40 mg PO DAILY allopurinol 100 mg Tablet 200 mg PO DAILYCM Qty: 30 0RF (DME) pen needle, diabetic 33 gauge x 3/16 needle See Rx Instructions .Route Qty: 100 0RF Rx Instructions: As directed dapagliflozin propanediol [Farxiga] 10 mg tablet 10 mg PO DAILY epinephrine 0.3 mg/0.3 mL auto-injector 0.3 mg IM DAILY PRN (Reason: ANAPHYLAXIS ) warfarin 2 mg tablet 2 mg PO SUTUWETHSA insulin glargine [Lantus Solostar U-100 Insulin] 100 unit/mL (3 mL) insulin pen 22 unit subcut 1000 carvedilol 6.25 mg tablet 6.25 mg PO BID Qty: 180 3RF potassium chloride 20 mEq tablet extended release 20 meq PO DAILY gabapentin 100 mg capsule 200 mg PO QHS Referrals / Follow Up: Howard Escobar DO [Primary Care Provider] - Disposition Disposition (needs filled in before D/C Order can be placed): Residential Facility
--- NOTE | 2023-12-14 10:42 | PCM.DC.SUM ---
Providers Date of Admission: 12/10/23 Primary Care Physician: Dr. Howard Escobar, Consultations 12/11/23 11:18 Consult: Nephrology Routine Consulting Provider: Raulito Barahona Reason for Consult: Hyponatremia, hypokalemia, recurrent EMERGENT Consult: No MD Notified: Yes Date Notified: 12/11/23 Time Notified: 11:18 Method of Notification: Text 12/13/23 14:46 Consult: Onc/Wound/transportation design engineer Routine Comment: Reason for Consult:: Infected sebaceous cyst. Reason For Visit: WEAKNESS, HYPONATREMIA & HYPOKALEMIA Diagnosis Discharge Diagnosis (1) Acidosis, lactic: Status: Acute Code(s): E87.20 - Acidosis, unspecified (2) Hypoxia: Status: Acute Code(s): R09.02 - Hypoxemia (3) Acute hyponatremia: Status: Acute Code(s): E87.1 - Hypo-osmolality and hyponatremia (4) Syncope and collapse: Status: Acute Code(s): R55 - Syncope and collapse (5) Acute hypokalemia: Status: Acute Code(s): E87.6 - Hypokalemia Medications at Discharge Home Medications finasteride 5 mg tablet 5 mg PO DAILY PROSTATE 12/19/20 pantoprazole 40 mg tablet,delayed release 40 mg PO DAILY ACID REFLUX 08/29/23 allopurinol 100 mg tablet 200 mg (2 x 100 mg) PO DAILYCM GOUT #30 tabs 09/03/23 pen needle, diabetic 33 gauge x 3/16 #100 ea 09/03/23 aspirin 81 mg tablet,delayed release (Adult Aspirin Regimen) 81 mg PO DAILY HEART HEALTH 11/10/23 atorvastatin 20 mg tablet 20 mg PO DAILY CHOLESTEROL #90 tabs 11/10/23 insulin lispro 100 unit/mL subcutaneous pen 20 unit subcut TID DIABETES 11/10/23 mecobalamin (vitamin B12) 10,000 mcg solution for injection 100 mcg IM Q30D SUPPLEMENT 11/10/23 carvedilol 6.25 mg tablet 6.25 mg PO BID HEART #180 tabs 11/11/23 gabapentin 100 mg capsule 200 mg PO QHS NEUROPATHY 11/17/23 potassium chloride 20 mEq tablet,extended release 20 meq PO DAILY SUPPLEMENT 11/17/23 dapagliflozin propanediol 10 mg tablet (Farxiga) 10 mg PO DAILY BLOOD SUGARS 11/29/23 ferrous sulfate 325 mg (65 mg iron) tablet 325 mg PO DAILY SUPPLEMENT 12/08/23 warfarin 2 mg tablet 3 mg PO MOFR BLOOD THINNER 12/08/23 epinephrine 0.3 mg/0.3 mL injection, auto-injector 0.3 mg IM DAILY PRN ANAPHYLAXIS 12/10/23 insulin glargine 100 unit/mL (3 mL) subcutaneous pen (Lantus Solostar U-100 Insulin) 22 unit subcut 1000 DIABETES 12/10/23 warfarin 2 mg tablet 2 mg PO SUTUWETHSA BLOOD THINNER 12/10/23 acetaminophen 500 mg tablet 1,000 mg (2 x 500 mg) PO Q8 #0 tabs 12/14/23 doxycycline hyclate 100 mg capsule 100 mg PO BID #20 caps 12/14/23 insulin lispro 100 unit/mL subcutaneous pen (Humalog KwikPen (U-100) Insulin) 10 unit (0.1 mL) subcut TIDAC #0 mL 12/14/23 insulin lispro 100 unit/mL subcutaneous pen (Humalog KwikPen (U-100) Insulin) See Protocol subcut ACHS #0 mL 12/14/23 mupirocin 2 % topical ointment 1 applic topical TID #0 grams 12/14/23 potassium, sodium phosphates 280 mg-160 mg-250 mg oral powder packet 1 packet PO TID #0 ea 12/14/23 torsemide 20 mg tablet 10 mg (1/2 x 20 mg) PO DAILY EDEMA #1 TAB 12/14/23 Hospital Course Summary of Care Provided Minutes Spent on Discharge: 35 Hospital Course: Patient is an 78-year-old gentleman with multiple comorbidities admitted with lightheadedness. Diagnosed with orthostatic hypotension admitted to regular nursing floor for further management Orthostatic hypotension ? Attributed to diuretic therapy diuretics held blood pressure stabilized diuretic resumed on discharge 2. Hyponatremia ? Secondary to patient diuretic therapy. Patient diuretic therapy was adjusted on discharge 3.Infected sebaceous cyst with MRSA ? Managed with vancomycin patient discharged on doxycycline 4. Essential hypertension ? Patient antihypertensives held on admission given his low blood pressure 5. Chronic congestive heart failure ? Currently euvolemic echo from 03/05/2023 demonstrated EF of 53% 6..Chronic kidney disease stage IV ? Patient was previously on dialysis. His kidney function however did improve patient had a tunneled dialysis catheter which was removed during the previous hospitalization given bacteremia 7. Paroxysmal A-fib ? Rate controlled on systemic anticoagulation with warfarin 8. Hypertrophic cardiomyopathy ? Status postseptal myomectomy in 2000 9. Status post cardioMEMs device placement ? In February 2021 10. Diabetes mellitus type II -patient's oral hypoglycemics held. Placed on long acting insulin, Accu-Cheks a.c. and at bedtime and covered with sliding scale insulin 11. BPH with lower urinary obstructive symptoms - Patient treated with finasteride 11. Physical deconditioning - Requested for PT OT eval and manager social to assist with discharge planning 12. DVT prophylaxis ? Patient is on Coumadin Physical Exam Narrative GENERAL: cooperative HEENT: Infected and indurated sebaceous cyst on the occipital scalp EYES; Anicteric, Normal Conjunctiva NECK; supple, normal thyroid, RESPIRATORY: Diminished to auscultation CARDIOVASCULAR: Regular S1 S2, GI: soft, normoactive bowel sounds, : No Renal angle tenderness; EXTREMITIES: No edema, no clubbing, MUSCULOSKELETAL: no muscle wasting NEURO: Awake; no lateralizing signs. SKIN: No Rash PSYCH; Flat affect Weight / BMI Weight Weight: 71.2 kg Body Mass Index (BMI) 26.1 ABG / Lab / Microbiology Data 12/14/23 05:07 12/14/23 05:07 Laboratory: Laboratory Results - last 24 hr 12/13/23 06:06: PTH Intact 86.2 H 12/13/23 11:59: POC Glucose 172 H 12/13/23 16:26: POC Glucose 232 H 12/13/23 21:28: POC Glucose 227 H 12/14/23 05:07: WBC 13.8 H, RBC 3.44 L, Hgb 9.5 L, Hct 30.5 L, MCV 88.7, MCH 27.6, MCHC 31.1 L, RDW Std Deviation 57.0 H, RDW Coeff of Kiersten 17.5 H, Plt Count 241, MPV 11.6, Immature Gran % (Auto) 3.500 H, Neut % (Auto) 80.4 H, Lymph % (Auto) 7.9 L, [place] % (Auto) 5.8, Eos % (Auto) 2.0, Baso % (Auto) 0.4, Absolute Neuts (auto) 11.1 H, Absolute Lymphs (auto) 1.10, Nucleated RBC % 0, PT 30.6 H, INR 3.0, Sodium 133 L, Potassium 3.8, Chloride 96 L, Carbon Dioxide 29.0, Anion Gap 8, BUN 54 H, Creatinine 1.62 H, Estim Creat Clear Calc 31.64, Est GFR (MDRD) Af Amer 53 L, Est GFR (MDRD) Non-Af 44 L, BUN/Creatinine Ratio 33.3 H, Glucose 163 H, Calcium 8.9, Phosphorus 1.9 L, Magnesium 1.8 12/14/23 08:07: POC Glucose 160 H Microbiology: Microbiology 12/12/23 16:15 Wound Abcess - Other Gram Stain - Final 12/12/23 16:15 Wound Abcess - Other Wound Culture - Final Meth. resistant Staph. aureus 12/10/23 17:45 Blood Culture (Wb) - Right Hand Blood Culture - Preliminary No growth in 48 hours. 12/10/23 17:50 Blood Culture (Wb) - Anticubital Right Blood Culture - Preliminary No growth in 48 hours. 12/11/23 13:40 Stool Stool Occult Blood (MARYANA) - Final 12/10/23 15:03 Stool Stool Occult Blood (MARYANA) - Final D/C Instructions Discharge Diet: 1800 Calorie Control Diet Discharge Activity: Return to Normal Activity Call your doctor if you observe: Fever of 101 or Higher, Shortness of breath, Fainting spells and Chest pain Meaningful Use Info Meaningful Use Diagnoses (Choose all that apply): None applicable Discharge Plan Admission Admit Date/Time: 12/10/23 20:15 Attending Provider: Lee Guillory Primary Care Provider: Howard Escobar Consulting Providers: Titi Loomis Jayaprakas; Josh Velasco Discharge Orders/Prescriptions Prescriptions: New insulin lispro [Humalog KwikPen Insulin] 100 unit/mL Insulin Pen See Protocol subcut ACHS Qty: 0 0RF Protocol: 4. Sliding Scale Insulin High-Med Dosing Condition: 150-199 mg/dl = 2 units Condition: 200-259 mg/dl = 4 units Condition: 260-324 mg/dl = 6 units Condition: 325-374 mg/dl = 8 units Condition: 375-409 mg/dl = 10 units Condition: 410-449 mg/dl = 11 units Condition: Greater than 449 call physician Protocol Text: - Use for Total Daily Dose of Insulin 56-80 units - Patient who are insulin resistant or septic HIGH MEDIUM DOSING ALGORITHM acetaminophen 500 mg Tablet 1,000 mg PO Q8 Qty: 0 0RF insulin lispro [Humalog KwikPen Insulin] 100 unit/mL Insulin Pen 10 unit subcut TIDAC Qty: 0 0RF potassium, sodium phosphates 280-160-250 mg Powder In Packet 1 packet PO TID Qty: 0 0RF mupirocin 2 % Ointment 1 applic topical TID Qty: 0 0RF Protocol: *Topical Application Instructions APPLICATION INSTRUCTIONS: on head swelling/wound doxycycline hyclate 100 mg capsule 100 mg PO BID Qty: 20 0RF Continued finasteride 5 mg tablet 5 mg PO DAILY aspirin [Adult Aspirin Regimen] 81 mg tablet,delayed release (DR/EC) 81 mg PO DAILY insulin lispro 100 unit/mL insulin pen 20 unit subcut TID mecobalamin (vitamin B12) 10,000 mcg recon soln 100 mcg IM Q30D Rx Instructions: Inject 1,000 mcg intramuscularly ONCE A MONTH; FIRST OF THE MONTH atorvastatin 20 mg tablet 20 mg PO DAILY Qty: 90 3RF ferrous sulfate 325 mg (65 mg iron) tablet 325 mg PO DAILY warfarin 2 mg tablet 3 mg PO MOFR pantoprazole 40 mg tablet,delayed release (DR/EC) 40 mg PO DAILY allopurinol 100 mg Tablet 200 mg PO DAILYCM Qty: 30 0RF (DME) pen needle, diabetic 33 gauge x 3/16 needle See Rx Instructions .Route Qty: 100 0RF Rx Instructions: As directed dapagliflozin propanediol [Farxiga] 10 mg tablet 10 mg PO DAILY epinephrine 0.3 mg/0.3 mL auto-injector 0.3 mg IM DAILY PRN (Reason: ANAPHYLAXIS ) warfarin 2 mg tablet 2 mg PO SUTUWETHSA insulin glargine [Lantus Solostar U-100 Insulin] 100 unit/mL (3 mL) insulin pen 22 unit subcut 1000 carvedilol 6.25 mg tablet 6.25 mg PO BID Qty: 180 3RF potassium chloride 20 mEq tablet extended release 20 meq PO DAILY gabapentin 100 mg capsule 200 mg PO QHS Changed torsemide 20 mg tablet 10 mg PO DAILY Qty: 1 0RF Referrals / Follow Up: Howard Escobar DO [Primary Care Provider] - Within 2 Weeks Disposition Disposition (needs filled in before D/C Order can be placed): [facility] Facility Charges/Coding Visit Charges Inpatient E&M: 39807 Disch Hosp >30min
--- NOTE | 2023-12-14 11:10 | CASEMGMT ---
SW spoke with patient. He confirmed he spoke with his son. Patient is upset he has to go to a facility, but is agreeable. Patient thought his would probably transport him. PAU completed a 7000 in [facility]. APU spoke with patient's son Everardo and he said he could transport patient when he gets off work. Everardo said he could be at [facility] a little after 5p. PAU let patient, materials handling coordinator, RN, and [facility] know this information. PAU also sent orders to [facility] via [facility]. Plan: d/c to [facility] under skilled level of care on a convalescent stay. Family will transport patient via private vehicle. Patience DE PAZ
--- NOTE | 2023-12-14 11:27 | PN.RENAL_ITS ---
Subjective Subjective Up in room, no overnight events. Possible discharge to [facility] today Objective Data Objective Data Vital Signs: Vital Signs Temp Pulse Resp BP Pulse Ox O2 Del Method O2 Flow Rate 97.9 F 75 18 141/66 H 100 Room Air 2 12/14/23 09:10 12/14/23 09:10 12/14/23 09:10 12/14/23 09:10 12/14/23 09:10 12/14/23 09:10 12/14/23 08:10 FiO2 21 12/10/23 22:20 Oxygen Flow Rate (L/min) 2 Oxygen Delivery Method Room Air Weight: 71.2 kg Body Mass Index (BMI) 26.1 Intake & Output: Intake and Output for Last 24 Hours 12/12/23 12/13/23 12/14/23 23:59 23:59 23:59 Intake Total 2300 / 2300 1340 / 1340 440 / 440 Output Total 1905 / 1905 1200 / 1200 900 / 900 Balance 395 / 395 140 / 140 -460 / -460 Lab / Micro Data 12/14/23 05:07 12/14/23 05:07 Labs: Laboratory Results - last 24 hr 12/13/23 06:06: PTH Intact 86.2 H 12/13/23 11:59: POC Glucose 172 H 12/13/23 16:26: POC Glucose 232 H 12/13/23 21:28: POC Glucose 227 H 12/14/23 05:07: WBC 13.8 H, RBC 3.44 L, Hgb 9.5 L, Hct 30.5 L, MCV 88.7, MCH 27.6, MCHC 31.1 L, RDW Std Deviation 57.0 H, RDW Coeff of Kiersten 17.5 H, Plt Count 241, MPV 11.6, Immature Gran % (Auto) 3.500 H, Neut % (Auto) 80.4 H, Lymph % (Auto) 7.9 L, [place] % (Auto) 5.8, Eos % (Auto) 2.0, Baso % (Auto) 0.4, Absolute Neuts (auto) 11.1 H, Absolute Lymphs (auto) 1.10, Nucleated RBC % 0, PT 30.6 H, INR 3.0, Sodium 133 L, Potassium 3.8, Chloride 96 L, Carbon Dioxide 29.0, Anion Gap 8, BUN 54 H, Creatinine 1.62 H, Estim Creat Clear Calc 31.64, Est GFR (MDRD) Af Amer 53 L, Est GFR (MDRD) Non-Af 44 L, BUN/Creatinine Ratio 33.3 H, Glucose 163 H, Calcium 8.9, Phosphorus 1.9 L, Magnesium 1.8 12/14/23 08:07: POC Glucose 160 H Micro: Microbiology 12/12/23 16:15 Wound Abcess - Other Gram Stain - Final 12/12/23 16:15 Wound Abcess - Other Wound Culture - Final Meth. resistant Staph. aureus 12/10/23 17:45 Blood Culture (Wb) - Right Hand Blood Culture - Preliminary No growth in 48 hours. 12/10/23 17:50 Blood Culture (Wb) - Anticubital Right Blood Culture - Preliminary No growth in 48 hours. 12/11/23 13:40 Stool Stool Occult Blood (MARYANA) - Final 12/10/23 15:03 Stool Stool Occult Blood (MARYANA) - Final Physical Exam Narrative Alert and orient x 3, no apparent distress S1, S2, RRR Lung sounds clear. No wheezes, rhonchi or rales Abdomen soft, nontender positive bowel sounds No edema Assessment & Plan Assessment/Plan (1) Acute kidney injury superimposed on chronic kidney disease: (2) Acute hypokalemia: (3) Acute hypotension: (4) Acute hyponatremia: (5) Chronic kidney disease: PLAN: Plan This is a very pleasant 78-year-old male with past medical history significant for diabetes mellitus type 2, hypertension, coronary artery disease, heart failure preserved EF with diastolic dysfunction, moderate pulmonary hypertension, KIMBERLY, hyperlipidemia, CKD who is known to our group as patient has known history of chronic kidney disease and also had episode of hypervolemic acute kidney injury who required hemodialysis for short period of time. Patient was started on hemodialysis as he had had recurrent hospitalizations for fluid overload, CEE and heart failure, patient began a trial of dialysis on September 17. A tunneled hemodialysis catheter was placed in the hospital and arrangements made for patient to dialyze at [facility] on a Thursday schedule. Overall volume status had improved, patient's weight at the start of dialysis was around 85 to 90 kg. In the outpatient reading hospital patient's best weight 72.7 kg (160 pounds) on October 02. Unfortunately patient was then admitted to the hospital for septic shock due to MRSA bacteremia, tunneled HD catheter was removed on October 06. TTE showed no vegetation. Patient developed left eye vision changes, ophthalmology concern for endophthalmitis and patient was transferred to [facility] for further evaluation and treatment. Patient remained off hemodialysis at [facility] [place]. He was discharged home with PICC line and vancomycin. He is no longer on vancomycin. Patient's last hemodialysis session was October 05, 2023. Patient was then evaluated in our office about a month ago and at that time had been complaining of worsening lower extremity edema, he had 2-3+ pitting edema bilateral legs and his weight was up to around 190 pounds. He had been on torsemide 40 mg in the morning and 20 mg in the afternoon, torsemide was increased to 40 mg twice daily along with Zaroxolyn 5 mg daily. Patient's weight had improved to around 160lbs (73kg). Patient was then admitted to the hospital November 28 for right hand swelling, CEE, hypokalemia. Discharged home 12/02 on torsemide 40 mg bid, Metolazone 5 mg daily and potassium 20 mg daily and weight was ~74kg. During that hospitalization creatinine peak 2.83 mg/dL (11/28) and improved to 1.91 mg/dL at time of discharge on December 02. - nonoliguric, mildly hypovolemic CEE superimposed on CKD stage III/IV; serum creatinine 2.6 mg/dL on admission--> today creatinine 1.62 mg/dL. Overall renal function stable and improved with volume expansion, improvement in blood pressures, holding diuretic and gentle IV fluids. No acute indication for PROFESSOR OF LANGUAGES. Chest x-ray did not show any evidence of acute cardiopulmonary disease or fluid. Patient is currently off IV fluids. Volume status appears near euvolemic. His weight is 156 pounds. This is around patient's dry weight. -CKD stage III/IV; possible baseline creatinine ranging around 2 mg/dL. -Hyponatremia in setting of diuresis and poor solute intake. Sodium was 120 on admission, slowly corrected and today sodium is 133. Patient is on fluid restriction (during last hospitalization sodium ranged 121 (this is navya on 11/28) and improved to 130 on 12/02). -Hypokalemia likely secondary to diuresis and poor solute/oral intake. Potassium was as low as 2.3. Today potassium 3.8. With supplement and increasing solute intake potassium trends improved. -Possible discharge to ECF. Okay for discharge per renal when cleared by primary team. Patient will have follow-up in [place] office. Diuretic for discharge recommend torsemide 40 mg a.m., 20 mg in p.m. (He had been taking torsemide 40 mg twice daily and Zaroxolyn 5 mg daily). Recommend off Zaroxolyn for now. Recommend for labs to be checked at the end of this week and also next week.
--- NOTE | 2023-12-14 11:48 | PHA.DC.MR.R ---
Pharmacy [place] Med Reconciliation Pharmacy Service has performed discharge medication reconciliation for this patient. Contacted Dr. Guillory regarding insulin lispro orders. Home 20units TID continued and new order for 10uits also entered. He clarified patient should only be on 10units with meals. Dr. Guillory stopped the 20 unit order. Updated PAU Morin. The patient's discharge medication list was reviewed for discrepancies and discrepancies were resolved. Medications at Discharge Home Medications finasteride 5 mg tablet 5 mg PO DAILY PROSTATE 12/19/20 pantoprazole 40 mg tablet,delayed release 40 mg PO DAILY ACID REFLUX 08/29/23 allopurinol 100 mg tablet 200 mg (2 x 100 mg) PO DAILYCM GOUT #30 tabs 09/03/23 pen needle, diabetic 33 gauge x 3/16 #100 ea 09/03/23 aspirin 81 mg tablet,delayed release (Adult Aspirin Regimen) 81 mg PO DAILY HEART HEALTH 11/10/23 atorvastatin 20 mg tablet 20 mg PO DAILY CHOLESTEROL #90 tabs 11/10/23 mecobalamin (vitamin B12) 10,000 mcg solution for injection 100 mcg IM Q30D SUPPLEMENT 11/10/23 carvedilol 6.25 mg tablet 6.25 mg PO BID HEART #180 tabs 11/11/23 gabapentin 100 mg capsule 200 mg PO QHS NEUROPATHY 11/17/23 potassium chloride 20 mEq tablet,extended release 20 meq PO DAILY SUPPLEMENT 11/17/23 dapagliflozin propanediol 10 mg tablet (Farxiga) 10 mg PO DAILY BLOOD SUGARS 11/29/23 ferrous sulfate 325 mg (65 mg iron) tablet 325 mg PO DAILY SUPPLEMENT 12/08/23 warfarin 2 mg tablet 3 mg PO MOFR BLOOD THINNER 12/08/23 epinephrine 0.3 mg/0.3 mL injection, auto-injector 0.3 mg IM DAILY PRN ANAPHYLAXIS 12/10/23 insulin glargine 100 unit/mL (3 mL) subcutaneous pen (Lantus Solostar U-100 Insulin) 22 unit subcut 1000 DIABETES 12/10/23 warfarin 2 mg tablet 2 mg PO SUTUWETHSA BLOOD THINNER 12/10/23 acetaminophen 500 mg tablet 1,000 mg (2 x 500 mg) PO Q8 #0 tabs 12/14/23 doxycycline hyclate 100 mg capsule 100 mg PO BID #20 caps 12/14/23 insulin lispro 100 unit/mL subcutaneous pen (Humalog KwikPen (U-100) Insulin) 10 unit (0.1 mL) subcut TIDAC #0 mL 12/14/23 insulin lispro 100 unit/mL subcutaneous pen (Humalog KwikPen (U-100) Insulin) See Protocol subcut ACHS #0 mL 12/14/23 mupirocin 2 % topical ointment 1 applic topical TID #0 grams 12/14/23 potassium, sodium phosphates 280 mg-160 mg-250 mg oral powder packet 1 packet PO TID #0 ea 12/14/23 torsemide 20 mg tablet 10 mg (1/2 x 20 mg) PO DAILY EDEMA #1 TAB 12/14/23
[2023-12-14 12:01] LABS: Bedside Glucose 183 mg/dL (74-106)
[2023-12-14 13:30] VITALS: BP 141/66; PULSE 75; RESP 18; TEMP 36.6; O2SAT 100
--- NOTE | 2023-12-14 16:02 | CHAPLAIN ---
Type of Pastoral Visit _x__ Initial Visit ___ Follow-up Visit ___ On-call Visit ___ General Patient Visit ___ Spiritual Assessment ___ Family Conference ___ Bereavement ___ Rapid Response ___ Code Blue ___ Other (describe below) Pastoral Care Referral From _x__ Patient ___ Family _x__ Nurse ___ Physician ___ Mill Tender ___ Group Leader Wafer Polishing _x__ Other (describe below) Sacrament/Intervention _x__ Active listening ___ Anointing ___ Islam ___ Bereavement ___ Communion ___ Dejah exploration ___ _x__ Life review _x__ Prayer ___ Reconciliation ___ Sacrament of Sick _x__ Supportive presence ___ Wedding ___ Other (describe below) Pastoral Comments visit recommended by staff members; message had been left by PARKING ENFORCEMENT TECHNICIAN on Thursday when this dining room cashier was not available; pt says that he has received some answers now and [facility]; pt says while not what he wants it is what is needed and best for now; spouse is with him but she keeps quiet; listening, presence, and prayer given
[2023-12-14 16:42] LABS: Bedside Glucose 159 mg/dL (74-106)
--- NOTE | 2023-12-14 17:25 | NURSING ---
Report called to nurse Contreras for pt to be d/c to [facility].
== END 2023-12-14 17:49 | disposition skilled nursing facility (03) | DRG 312 ==
LOC: ED 17:37 → PCU 20:33
PROVIDERS: Internal Medicine; Admitting Provider Family Medicine; Emergency Provider Emergency Medicine; PCP Family Medicine; Visit Provider Internal Medicine
DX: I95.1 Orthostatic hypotension (principal); E22.2 Syndrome of inappropriate secretion of antidiuretic hormone; E87.20 Acidosis, unspecified; I13.0 Hypertensive heart and chronic kidney disease with heart failure and stage 1 through stage 4 chronic kidney disease, or unspecified chronic kidney disease; N17.9 Acute kidney failure, unspecified; I50.42 Chronic combined systolic (congestive) and diastolic (congestive) heart failure; I42.2 Other hypertrophic cardiomyopathy; N13.8 Other obstructive and reflux uropathy; I27.21 Secondary pulmonary arterial hypertension; D63.1 Anemia in chronic kidney disease; I48.0 Paroxysmal atrial fibrillation; R55 Syncope and collapse; E11.65 Type 2 diabetes mellitus with hyperglycemia; N18.32 Chronic kidney disease, stage 3b; E11.22 Type 2 diabetes mellitus with diabetic chronic kidney disease; Z79.4 Long term (current) use of insulin; E11.51 Type 2 diabetes mellitus with diabetic peripheral angiopathy without gangrene; M06.9 Rheumatoid arthritis, unspecified; E87.6 Hypokalemia; K21.9 Gastro-esophageal reflux disease without esophagitis; E87.8 Other disorders of electrolyte and fluid balance, not elsewhere classified; E78.5 Hyperlipidemia, unspecified; I25.10 Atherosclerotic heart disease of native coronary artery without angina pectoris; I44.7 Left bundle-branch block, unspecified; M17.0 Bilateral primary osteoarthritis of knee; L72.3 Sebaceous cyst; R09.02 Hypoxemia; Z79.01 Long term (current) use of anticoagulants; R53.81 Other malaise; Z95.0 Presence of cardiac pacemaker; Z79.84 Long term (current) use of oral hypoglycemic drugs; B95.62 Methicillin resistant Staphylococcus aureus infection as the cause of diseases classified elsewhere; Z66 Do not resuscitate; N40.1 Benign prostatic hyperplasia with lower urinary tract symptoms; Z79.899 Other long term (current) drug therapy; R62.7 Adult failure to thrive
CPT/HCPCS: 36415; 71045; 80048; 81001; 82274; 82436; 82533; 82570; 82962; 83605; 83735; 83930; 83935; 83970; 84100; 84133; 84156; 84300; 84443; 84484; 84550; 85025; 85610; 87040; 87070; 87077; 87186; 87205; 93005; 97110; 97162; 97166; 97530; 97535; 99285; J7030; J7040; A4216

== ENCOUNTER → 2024-02-22 | Outpatient (CLI) | payer MEDICARE, BC, SELFPAY ==
[2024-02-22 14:04] LABS: Absolute Lymphocyte Count 0.84 X10^3/uL (0.83-4.51); Absolute Neutrophil Count 10.9 X10^3/uL (2.0-7.7); Basophil# 0.03 X10^3/uL; Basophil% 0.2 % (0-1); Eosinophil# 0.01 X10^3/uL; Eosinophils% 0.1 % (0-5); Hematocrit 34.4 % (40-54); Hemoglobin 10.5 g/dL (13.0-16.5); Lymphocyte # 0.84 X10^3/ul (0.83-4.51); Lymphocyte % 6.4 % (19-41); Mean Corp Hgb Conc 30.5 g/dL (32-36); Mean Platelet Vol. 11.9 fl (6.2-12.0); Monocyte# 1.07 X10^3/uL; Monocyte% 8.2 % (0-10); NRBC Flagged by Analyzer 0.2 % (0-5); Neutrophil # 10.94 X10^3/uL (2.7-7.7); Neutrophil % 83.7 % (47-70); POSITIVE MORPHOLOGY YES; Platelet Count 168 K/mm3 (150-450); RBC Distribution Width CV 22.7 % (11.6-14.6); RBC Distribution Width SD 79.8 fl (35.1-43.9); Red Blood Count 3.62 M/mm3 (4.6-6.2); White Blood Count 13.1 K/mm3 (4.4-11.0)
[2024-02-22 14:05] LABS: Differential Indicated SCAN CRITERIA MET
[2024-02-22 14:20] LABS: International Normalized Ratio 1.3; Prothrombin Time (Protime)PT. 16.6 SECONDS (11.7-14.9)
[2024-02-22 14:31] LABS: ALB/GLOB Ratio 0.8 RATIO (0.9-2.4); AST(SGOT) 34 U/L (15-37); Alanine Aminotransfer ALT/SGPT 78 U/L (16-61); Alkaline Phosphatase 123 U/L (45-117); Anion Gap 7 (5-15); BUN 48 mg/dL (7-18); BUN/Creat Ratio 23.1 RATIO (10-20); Calcium,Total 9.1 mg/dL (8.5-10.1); Chloride 101 mmol/L (98-107); Creatinine, Serum 2.08 mg/dL (0.70-1.30); EST Glomerular Filtration Rate 33 mL/min (>60); Est Glom Filt Rate - Afr Amer 40 mL/min (>60); Globulin 3.8 g/dL (2.2-4.2); Glucose 159 mg/dL (74-106); Potassium 4.2 mmol/L (3.5-5.1); Protein, Total 6.8 g/dL (6.4-8.2); Sodium Level 136 mmol/L (136-145)
[2024-02-22 14:55] LABS: Anisocytosis 1+
== END | disposition home or self-care (01) ==
LOC: LAB 13:30
PROVIDERS: Nurse Practitioner Family; PCP Family Medicine; Visit Provider Internal Medicine Rheumatology
DX: M05.79 Rheumatoid arthritis with rheumatoid factor of multiple sites without organ or systems involvement (principal); M1A.9XX1 Chronic gout, unspecified, with tophus (tophi); R76.8 Other specified abnormal immunological findings in serum; N18.9 Chronic kidney disease, unspecified; Z79.899 Other long term (current) drug therapy
CPT/HCPCS: 36415; 80053; 85025; 85610

== ENCOUNTER 2024-02-23 18:44 | Emergency (ER) | payer MEDICARE, BC, SELFPAY ==
[2024-02-23] VITALS (10 sets, daily range): BP systolic 111–154; BP diastolic 54–93; PULSE 58–121; RESP 12–25; TEMP 36.4; O2SAT 54–99; BMI 28.3
--- NOTE | 2024-02-23 19:09 | ED.RN ---
patient unable to urinate after multiple attempts. pt with severe tailbone pain, unable to sit or lay on back. patient unable to find position of comfort, extremely restless. patient endorses numbness/tingling in tailbone area but denies any radiation into legs or feet.
--- NOTE | 2024-02-23 19:18 | EKG12_ITS ---
Test Reason : DYSRHYTHMIA Blood Pressure : / mmHG Vent. Rate : 058 BPM Atrial Rate : 064 BPM P-R Int : 000 ms QRS Dur : 160 ms QT Int : 470 ms P-R-T Axes : 000 018 184 degrees QTc Int : 461 ms Atrial fibrillation with Junctional Rhythm Non-specific intra-ventricular conduction block T wave abnormality, consider inferior ischemia T wave abnormality, consider anterolateral ischemia Abnormal ECG Confirmed by Ellis Alejo ([id number]), manager editorial VIOLETA VILLALBA ([id number]) on 02/24/2024 11:28:38 AM Referred By: Confirmed By:Ellis Alejo
--- NOTE | 2024-02-23 20:15 | CT_ITS ---
We are attempting to reach an attending provider to discuss findings. An addendum with communication details will be sent when the communication is complete. STUDY: CT ABDOMEN AND PELVIS WITH CONTRAST REASON FOR EXAM: Male, 78 years old. Trauma RADIATION DOSAGE (If Supplied By Facility): CTDIvol = ( 23.53 ) mGy, DLP = ( 1264.53 ) mGycm TECHNIQUE: Transaxial images were obtained from the dome of the diaphragm to the symphysis pubis without oral contrast. IV 100mL Isovue-370 was administered. Sagittal and coronal images were reconstructed. Individualized dose optimization techniques were used for this CT. COMPARISON: October 04, 2023 FINDINGS: The visualized lung bases are unremarkable. There are sternotomy wires. There is cardiac enlargement. Normal liver. There are multiple gallstones. Normal spleen. Normal pancreas. Normal bilateral adrenal glands. There is moderate atrophy and cortical thinning of the right kidney. Normal left kidney. Normal visualized stomach. Normal small intestine. Normal colon. There is non-visualization of the appendix. There is diffuse atherosclerotic calcification of the abdominal aorta, without a demonstrated aneurysm. Normal inferior vena cava. Normal retroperitoneum. There is Lanier catheter in the urinary bladder. There is 3.0 cm hematoma or mass in the bladder. There is swelling and edema adjacent to the anterior aspect of the bladder with increased density suggesting active extravasation of contrast. There is no free fluid in the abdomen or pelvis. Normal abdominal wall. There is degenerative change of the spine and hips. There fractures of the bilateral superior and inferior pubic rami with displacement of up to 2.[address]/Abdomen/Pelvis W IV Cont ONLY IMPRESSION: Bilateral pubic fractures. There is adjacent extravasation of contrast consistent with active hemorrhage. Hematoma or mass in the urinary bladder. Multiple gallstones. No biliary dilatation. Electronically Signed: Ricardo Donis MD at 23:04 EDT ,
--- NOTE | 2024-02-23 20:15 | CT_ITS ---
STUDY: CT BRAIN WITHOUT CONTRAST REASON FOR EXAM: Male, 78 years old. Injury RADIATION DOSAGE (If Supplied By Facility): CTDIvol = ( 44.99 ) mGy, DLP = ( 846.73 ) mGycm TECHNIQUE: Transaxial CT imaging of the brain was performed without administration of intravenous contrast material. Individualized dose optimization techniques were used for this CT. COMPARISON: No relevant priors. FINDINGS: There is increased density in the right orbital globe suggesting hemorrhage. Normal calvarium. There is mild cerebral atrophy with widening of the extra-axial spaces and ventricular dilatation. There are areas of decreased attenuation within the white matter tracts of the supratentorial brain, consistent with microvascular disease changes. Normal basal ganglia and thalami. Normal brainstem. Normal cerebellum. There is no intracranial hemorrhage. There are no findings of an acute ischemic infarction. There is moderate mucosal thickening of the visualized paranasal sinuses. CT/Brain/Head without Contrast IMPRESSION: Chronic involutional changes of the brain. Hemorrhage in the right orbital globe. Electronically Signed: Ricardo Donis MD at 23:48 EDT ,
--- NOTE | 2024-02-23 20:39 | EDS_ITS ---
HPI HPI - Fall History of Present Illness Chief Complaint: Fall Informant: patient, family and EMS Narrative Narrative: 78-year-old male presenting to the emergency room with buttock pain from fall. Patient was coming down the stairs and had his hand up on the door jam and his hand slipped and he fell landing in a sitting position. He notes pain in the very low buttock region. His biggest complaint currently is that he cannot urinate. He states this has happened to him before. Patient family notes multiple skin tears to the arm. Patient has been on Coumadin for persistent atrial fibrillation and due to excessive bruising this was held this previous Thursday by cardiology. He also has a history of rheumatoid arthritis and was recently diagnosed with a perforated corneal ulcer today by ophthalmology. Patient reportedly struck the back of his head. He is denying any neck or thoracic or lumbar pain. No reported loss of consciousness. He denies any chest pain or shortness of breath. Patient is denying any loss of sensation or motor strength of the legs. [facility] Medical History Central corneal ulcer of right eye Chronic kidney disease, stage 4 (severe) Acute hypoxic respiratory failure Persistent atrial fibrillation Mitral valve insufficiency Wears glasses History of steroid therapy Restless legs Back pain Poor appetite Dietary restriction Heartburn Shortness of breath on exertion Leg cramps History of pain when walking History of edema Hypertension Night sweats Cardiology follow-up encounter History of irregular heartbeat History of echocardiogram Diarrhea Gout Abnormal ankle brachial index (LOKI) Claudication Joint pain History of non-ST elevation myocardial infarction (NSTEMI) (07/25/21) Hypokalemia Lactic acidosis Leukocytosis Diabetes Presence of implantable pulmonary artery pressure and heart rate monitoring system (03/25/21) CHF NYHA class III Nonobstructive atherosclerosis of coronary artery Chronic kidney disease, stage 3b CPAP (continuous positive airway pressure) dependence Anemia due to stage 3b chronic kidney disease Chronic combined systolic and diastolic CHF (congestive heart failure) Constipation Elevated troponin (01/2021) Non-ischemic cardiomyopathy Longstanding persistent atrial fibrillation Left bundle branch block Essential (primary) hypertension Secondary pulmonary arterial hypertension Obesity (BMI 30.0-34.9) KIMBERLY (obstructive sleep apnea) Renal infarct Hypertrophic cardiomyopathy HLD (hyperlipidemia) History of tobacco use BPH (benign prostatic hyperplasia) Home Medications ?Medication ?Instructions ?Recorded ?Last Taken ?Type finasteride 5 mg tablet 5 mg PO DAILY PROSTATE 12/19/20 12/10/23 History pantoprazole 40 mg tablet,delayed 40 mg PO DAILY ACID REFLUX 08/29/23 12/10/23 History release pen needle, diabetic 33 gauge x #100 ea 09/03/23 Unknown Rx 11/13 gabapentin 100 mg capsule 200 mg PO QHS NEUROPATHY 11/17/23 12/09/23 History dapagliflozin propanediol 10 mg 10 mg PO DAILY BLOOD SUGARS 11/29/23 12/10/23 History tablet (Farxiga) ferrous sulfate 325 mg (65 mg 325 mg PO DAILY SUPPLEMENT 12/08/23 12/10/23 History iron) tablet aspirin 81 mg tablet,delayed 81 mg PO DAILY HEART HEALTH #90 02/11/24 Unknown Rx release (Adult Aspirin Regimen) tabs atorvastatin 20 mg tablet 20 mg PO DAILY CHOLESTEROL #90 02/11/24 Unknown Rx tabs allopurinol 300 mg tablet 300 mg PO QDAY 02/18/24 Unknown History carvedilol 6.25 mg tablet See Rx Instructions PO .COMPLEX 02/18/24 Unknown History HEART cyanocobalamin (vitamin B-12) 100 mcg IM QMONTH 02/18/24 Unknown History 1,000 mcg/mL injection solution insulin glargine 100 unit/mL (3 24 unit subcut 1000 DIABETES 02/18/24 Unknown History mL) subcutaneous pen (Lantus Solostar U-100 Insulin) insulin lispro 100 unit/mL 4 unit subcut ACHS 02/18/24 Unknown History subcutaneous pen (Humalog KwikPen (U-100) Insulin) potassium chloride 20 mEq 20 meq PO BID SUPPLEMENT 02/18/24 Unknown History tablet,extended release prednisone 5 mg tablet 5 mg PO QDAY 02/18/24 Unknown History torsemide 20 mg tablet 20 mg PO .COMPLEX EDEMA 02/18/24 Unknown History warfarin 3 mg tablet 3 mg PO DAILY #90 tabs 02/18/24 Unknown Rx moxifloxacin 0.5 % eye drops 1 drp ophthalmic (eye) BID 02/23/24 Unknown History prednisone 20 mg tablet 60 mg PO DAILY 02/23/24 Unknown History Allergy/AdvReac Type Severity Reaction Status Date / Time metoprolol AdvReac bradycardia Verified 02/18/24 14:33 rivaroxaban (From Xarelto) AdvReac Bleeding Verified 02/18/24 14:33 Family History Father Heart disease Sister Heart disease Brother Heart disease Other Arthritis CVA (cerebral vascular accident) Depression Longstanding persistent atrial fibrillation Mental disorder Surgical History History of cataract extraction History of left heart catheterization (02/19/21) Hx of umbilical hernia repair History of transurethral resection of prostate (01/2019) History of appendectomy History of ventricular septal myectomy (2000) Social History Smoking Status: Never smoker second hand exposure: Yes alcohol intake: never caffeine: Yes Type: coffee Number of servings: 1 what type of physical activity do you participate in: other details: treadmill frequency: daily ROS ROS ED Constitutional Constitutional ED: Denies chills, fever(s) or weight loss Eyes Eyes: Reports change in vision and other Details: See history of present illness. Right eye patched ; Denies diplopia ENT ENT ED: Denies ear pain, rhinorrhea or sore throat Cardiovascular Cardiovascular: Denies chest pain, orthopnea, palpitations or racing heartbeat Respiratory/Chest Respiratory/Chest: Denies cough, dyspnea or orthopnea Gastrointestinal Gastrointestinal: Denies abdominal pain, diarrhea, nausea or vomiting Genitourinary Genitourinary ED: Reports other Details: Inability to urinate ; Denies dysuria, hematuria or urinary frequency Musculoskeletal Musculoskeletal: Reports other Details: Coccygeal pain ; Denies arthralgias, myalgias or neck pain Integumentary Reports other Details: Multiple upper extremity skin tears ; Denies abscess or rash Neurologic Neurologic: Reports headache(s); Denies weakness Psychiatric Psychiatric: Denies anxiety, depression, suicidal ideation or suicidal thoughts Endocrine Endocrinology: Denies polydipsia, polyphagia or polyuria Allergic/Immunologic Allergic/Immunologic ED: Denies mouth swelling, tongue swelling or urticaria EXAM Physical Exam Narrative Exam Narrative: Differential diagnosis includes contusion retroperitoneal bleed solid organ laceration abrasion/skin tear intracranial hemorrhage spine fracture Patient is lying on his left side. He is writhing stating that he needs to urinate. Const Vital Signs: 02/23/24 18:46 02/23/24 19:03 02/23/24 19:03 Temperature 97.6 F L Temperature Source Oral Pulse Rate 58 L Respiratory Rate 25 H Respiratory Effort Normal Respiratory Depth Normal Respiratory Pattern Normal Blood Pressure 154/71 H Blood Pressure Mean 98 Pulse Ox 94 54 Oxygen Delivery Method Room Air Room Air Oxygen Flow Rate (L/min) 02/23/24 21:00 02/23/24 23:00 Temperature Temperature Source Pulse Rate 107 H 84 Respiratory Rate 25 H 12 Respiratory Effort Respiratory Depth Respiratory Pattern Blood Pressure 111/70 152/69 H Blood Pressure Mean 83 96 Pulse Ox 96 99 Oxygen Delivery Method Room Air Nasal Cannula Oxygen Flow Rate (L/min) 2 Positive well nourished and well developed General Appearance ED: well developed HEENT Reports normocephalic, head/scalp atraumatic and moist mucous membranes Eyes PERRL and EOMs intact bilaterally Neck no lymphadenopathy, supple and no JVD Chest Wall inspection of chest normal and palpation of chest normal Resp normal respiratory effort and clear to auscultation bilaterally Cardio regular rate, regular rhythm and no murmurs GI normal to inspection, nondistended, normoactive bowel sounds and non-tender Palpation: soft Back/Spine no CVA tenderness Back/Spine Narrative: Patient has tenderness over the sacrum at the right SI joint. There is tenderness at the superior pubic rami on the right. Thoracic Spine / Upper Back: ROM limited and pain with ROM Extremity normal to inspection Extremity Narrative: Negative logroll General Extremety ED: Negative for edema General Extremity: Negative for edema Neuro oriented x3 and CN's II-XII intact bilaterally [place] Coma Scale: document GCS findings Spontaneous Obeys Commands Oriented 15 Sensorium / Orientation: alert Motor Exam: strength 5/5 throughout Psych mental status grossly normal Mood & Affect: Negative for depressed or tearful Skin no rashes or lesions noted Skin Narrative: Multiple skin tears of the bilateral forearms MDM MDM MDM Narrative Medical decision making narrative: Differential diagnosis includes fracture, contusion, retroperitoneal bleed, iliopsoas bleed, hip fracture, pubic rami fracture, urinary retention Patient was noted to be bradycardic when he first came in. An EKG shows probable sinus bradycardia. I suspect this was due to urinary retention. Since then he has intermittently had A-fib with RVR most likely secondary to pain from the trauma. Lanier catheter was placed which returns bloody urine. This is negative for obvious infection. Creatinine returns at 1.97. His white count is elevated at 24.2 hemoglobin is 10.4 platelet count is 181. INR is 1.3. My independent interpretation of the chest x-ray is no acute process. Specifically no obvious pneumothorax or pleural effusion is seen. Even though the patient's creatinine is at 1.97 given the hematuria and the trauma I felt using contrast was important. I see pubic rami fracture and sacral elroy fracture on the right with blood in the dependent portion along the pelvis. Patient received morphine. CT of the brain and cervical spine and CT abdomen pelvis are pending formal reading by radiology. Plan will be transfer to trauma center. Patient is a [facility] patient. I spoke with family. We will transfer him to [facility] for trauma evaluation. History & Record Review Discussion w/independent historian: EMS personnel, Patient and Family Additional record(s) reviewed:: Prior ED visit and Prior labs Lab Data Attestation: I reviewed the patient's lab results. Labs: Laboratory Results - last 24 hr 02/23/24 02/23/24 02/23/24 20:40 20:40 20:55 WBC Cancelled Corrected WBC Cancelled RBC Cancelled Hgb Cancelled Hct Cancelled MCV Cancelled MCH Cancelled MCHC Cancelled RDW Std Deviation Cancelled RDW Coeff of Kiersten Cancelled Plt Count Cancelled MPV Cancelled Immature Gran % (Auto) Cancelled Neut % (Auto) Cancelled Lymph % (Auto) Cancelled Tucker % (Auto) Cancelled Eos % (Auto) Cancelled Baso % (Auto) Cancelled Absolute Neuts (auto) Cancelled Absolute Lymphs (auto) Cancelled Total Counted Cancelled Neutrophils % (Manual) Cancelled Band Neutrophils % Cancelled Lymphocytes % (Manual) Cancelled Monocytes % (Manual) Cancelled Eosinophils % (Manual) Cancelled Basophils % (Manual) Cancelled Metamyelocytes % Cancelled Myelocytes % Cancelled Promyelocytes % Cancelled Blast Cells % Cancelled Plasma Cell % (Manual) Cancelled Other Cells % Cancelled Nucleated RBC % Cancelled Nucleated RBCs/100 WBC Cancelled Differential Comment Cancelled Diff Path Review Cancelled Hypersegmented Neuts Cancelled Atypical Lymphocytes Cancelled Reactive Lymphocytes Cancelled Smudge Cells Cancelled Toxic Granulation Cancelled Toxic Vacuolation Cancelled Dohle Bodies Cancelled Daniella Rods Cancelled Platelet Estimate Cancelled Plt Morphology Comment Cancelled RBC Morphology Cancelled Cancelled Polychromasia Cancelled Hypochromasia Cancelled Basophilic Stippling Cancelled Anisocytosis Cancelled Microcytosis Cancelled Macrocytosis Cancelled Spherocytes Cancelled Sickle Cells Cancelled Target Cells Cancelled Tear Drop Cells Cancelled Ovalocytes Cancelled Stomatocytes Cancelled Kelly-[place] Bodies Cancelled [place] Cells Cancelled Bite Cells Cancelled Crenated Cell Cancelled Acanthocytes (Spur) Cancelled Rouleaux Cancelled Schistocytes Cancelled PT Cancelled INR Cancelled APTT Cancelled Sodium 137 Potassium 3.8 Chloride 103 Carbon Dioxide 25.0 Anion Gap 9 BUN 51 H Creatinine 1.97 H Estim Creat Clear Calc 28.69 Est GFR (MDRD) Af Amer 42 L Est GFR (MDRD) Non-Af 35 L BUN/Creatinine Ratio 25.9 H Glucose 144 H Calcium 9.0 Total Bilirubin 1.30 H Direct Bilirubin 0.38 H AST 36 ALT 78 H Alkaline Phosphatase 130 H Total Protein 6.8 Albumin 3.1 L Globulin 3.7 Lipase 24 Urine Color Red Urine Clarity Cloudy Urine pH 8.0 Ur Specific [place] 1.010 Urine Protein 500 H Urine Glucose (UA) 100 H Urine Ketones 5 H Urine Occult Blood 250 H Urine Nitrite Negative Urine Bilirubin Negative Urine Urobilinogen Normal Ur Leukocyte Esterase 25 H Urine RBC > 100 SEEN Urine WBC 5-10 SEEN Ur Squamous Epith Cells 0 SEEN Urine Bacteria RARE Urine Mucus 0 SEEN 02/23/24 02/23/24 21:45 21:50 WBC 24.2 H Corrected WBC RBC 3.63 L Hgb 10.4 L Hct 34.3 L MCV 94.5 H MCH 28.7 MCHC 30.3 L RDW Std Deviation 78.2 H RDW Coeff of Kiersten 22.6 H Plt Count 181 MPV 11.8 Immature Gran % (Auto) 2.900 H Neut % (Auto) 85.5 H Lymph % (Auto) 4.4 L Tucker % (Auto) 6.8 Eos % (Auto) 0.1 Baso % (Auto) 0.3 Absolute Neuts (auto) 20.7 H Absolute Lymphs (auto) 1.06 Total Counted Neutrophils % (Manual) Band Neutrophils % Lymphocytes % (Manual) Monocytes % (Manual) Eosinophils % (Manual) Basophils % (Manual) Metamyelocytes % Myelocytes % Promyelocytes % Blast Cells % Plasma Cell % (Manual) Other Cells % Nucleated RBC % 0.2 Nucleated RBCs/100 WBC Differential Comment SCANNED Diff Path Review May foll Hypersegmented Neuts Atypical Lymphocytes Reactive Lymphocytes Smudge Cells Toxic Granulation Toxic Vacuolation Dohle Bodies Daniella Rods Platelet Estimate Plt Morphology Comment RBC Morphology Polychromasia Hypochromasia Basophilic Stippling Anisocytosis Microcytosis Macrocytosis Spherocytes Sickle Cells Target Cells Tear Drop Cells Ovalocytes Stomatocytes Kelly-St. [place] Bodies [place] Cells Bite Cells Crenated Cell Acanthocytes (Spur) Rouleaux Schistocytes PT 16.6 H INR 1.3 APTT 27.1 Sodium Potassium Chloride Carbon Dioxide Anion Gap BUN Creatinine Estim Creat Clear Calc Est GFR (MDRD) Af Amer Est GFR (MDRD) Non-Af BUN/Creatinine Ratio Glucose Calcium Total Bilirubin Direct Bilirubin AST ALT Alkaline Phosphatase Total Protein Albumin Globulin Lipase Urine Color Urine Clarity Urine pH Ur Specific [place] Urine Protein Urine Glucose (UA) Urine Ketones Urine Occult Blood Urine Nitrite Urine Bilirubin Urine Urobilinogen Ur Leukocyte Esterase Urine RBC Urine WBC Ur Squamous Epith Cells Urine Bacteria Urine Mucus Radiography Diagnostic Testing: Clinical Impression(s) from Imaging Studies Abdomen/Pelvis CT 02/23/24 20:15 IMPRESSION: Bilateral pubic fractures. There is adjacent extravasation of contrast consistent with active hemorrhage. Hematoma or mass in the urinary bladder. Multiple gallstones. No biliary dilatation. Electronically Signed: Ricardo Donis MD at 23:04 EDT Reading Location ID and State: [facility] / [place] , Service support , ADDENDUM: 02/23/24 2318 IMPRESSION: Bilateral pubic fractures. There is adjacent extravasation of contrast consistent with active hemorrhage. Hematoma or mass in the urinary bladder. Multiple gallstones. No biliary dilatation. N.B. : The above Results were Read Back by Ricardo Donis MD to Dakota Smith DO, and understanding confirmed on 02/23/2024 23:11:25 (ET). Electronically Signed: Ricardo Donis MD at 23:04 EDT , Cervical Spine CT 02/23/24 20:40 IMPRESSION: Multilevel degenerative changes, as described above. Electronically Signed: Ricardo Donis MD at 21:59 EDT , EKG Initial EKG: Attestation: I personally reviewed and interpreted this EKG as follows: Comments: Probable atrial fibrillation with a ventricular rate of 58 bpm Management Discussion w/another healthcare provider: [facility] and Radiologist (Dr. Donis) Discharge Plan Triage Chief Complaint: Fall ED Provider: Dakota Smith Dx/Rx/DC Orders Clinical Impression: Sacral fracture, Closed fracture of pubic ramus, Acute urinary retention, Hematuria, Atrial fibrillation, Fall, Multiple skin tears, CKD (chronic kidney disease) Prescriptions: No Action finasteride 5 mg tablet 5 mg PO DAILY ferrous sulfate 325 mg (65 mg iron) tablet 325 mg PO DAILY allopurinol 300 mg tablet 300 mg PO QDAY carvedilol 6.25 mg tablet See Rx Instructions PO .COMPLEX Rx Instructions: 6.25 mg QAM, 3.125 mg QPM orally; cyanocobalamin (vitamin B-12) 1,000 mcg/mL solution 100 mcg IM QMONTH prednisone 5 mg tablet 5 mg PO QDAY insulin lispro [Humalog KwikPen Insulin] 100 unit/mL insulin pen 4 unit subcut ACHS Protocol: 4. Sliding Scale Insulin High-Med Dosing Condition: 150-199 mg/dl = 2 units Condition: 200-259 mg/dl = 4 units Condition: 260-324 mg/dl = 6 units Condition: 325-374 mg/dl = 8 units Condition: 375-409 mg/dl = 10 units Condition: 410-449 mg/dl = 11 units Condition: Greater than 449 call physician Protocol Text: - Use for Total Daily Dose of Insulin 56-80 units - Patient who are insulin resistant or septic HIGH MEDIUM DOSING ALGORITHM Rx Instructions: 4 units plus sliding scale torsemide 20 mg tablet 20 mg PO .COMPLEX Rx Instructions: 20 mg orally Take 2 tablets QAM, 1 tablet at noon; Every other day take 2 tabs QAM, 2 Tabs at noon warfarin 3 mg tablet 3 mg PO DAILY Qty: 90 3RF Protocol: Dose Management Condition: Thursday Dose/Route: 0 mg Instruction: 0 tablets Condition: Thursday Dose/Route: 0 mg Instruction: 0 tablets Condition: Thursday Dose/Route: 3 mg Instruction: 1 x 3 mg tablet Condition: Thursday Dose/Route: 3 mg Instruction: 1 x 3 mg tablet Condition: Dose/Route: 3 mg Instruction: 1 x 3 mg tablet Condition: Thursday Dose/Route: 3 mg Instruction: 1 x 3 mg tablet Condition: Thursday Dose/Route: 3 mg Instruction: 1 x 3 mg tablet Protocol Text: Adjustment Start Date: Thursday02/22/24 INR Value: 1.3 INR Date: 02/22/24 Recheck Date: 02/29/24 pantoprazole 40 mg tablet,delayed release (DR/EC) 40 mg PO DAILY (DME) pen needle, diabetic 33 gauge x 3/16 needle See Rx Instructions .Route Qty: 100 0RF Rx Instructions: As directed dapagliflozin propanediol [Farxiga] 10 mg tablet 10 mg PO DAILY moxifloxacin 0.5 % drops 1 drp ophthalmic (eye) BID Rx Instructions: right eye prednisone 20 mg tablet 60 mg PO DAILY insulin glargine [Lantus Solostar U-100 Insulin] 100 unit/mL (3 mL) insulin pen 24 unit subcut 1000 gabapentin 100 mg capsule 200 mg PO QHS aspirin [Adult Aspirin Regimen] 81 mg tablet,delayed release (DR/EC) 81 mg PO DAILY Qty: 90 3RF atorvastatin 20 mg tablet 20 mg PO DAILY Qty: 90 3RF potassium chloride 20 mEq tablet extended release 20 meq PO BID Primary Care Provider: Howard Escobar Referrals: Howard Escobar DO [Primary Care Provider] - Print Language: Uruguayan Disposition Disposition: Acute Care Hospital Discharge Location: [facility]
--- NOTE | 2024-02-23 20:40 | CT_ITS ---
STUDY: CT CERVICAL SPINE WITHOUT CONTRAST REASON FOR EXAM: Male, 78 years old. Trauma RADIATION DOSAGE (If Supplied By Facility): CTDIvol = ( 23.34 ) mGy, DLP = ( 566.84 ) mGycm TECHNIQUE: High resolution transaxial imaging was performed without contrast material. Sagittal and coronal images were reconstructed. Individualized dose optimization techniques were used for this CT. COMPARISON: None FINDINGS: Normal craniovertebral junction. There are degenerative changes of the anterior atlantoaxial articulation. Normal odontoid process. Normal cervical lordosis. Normal vertebral bodies and posterior osseous elements. There is anterior spurring and ankylosis from C4 to C7. There is no acute fracture. C2-3: Mild spurring. Mild facet spurring. Normal central canal and intervertebral neuroforamina. C3-4: Spurring. Facet spurring. Mild canal stenosis. Neural foramina are patent. C4-5: Spurring. Mild facet spurring. No canal stenosis. Right foraminal narrowing. C5-6: Mild spurring. No canal stenosis. Mild left foraminal narrowing. C6-7: Mild spurring. Normal central canal and intervertebral neuroforamina. C7-T1: Normal endplates. Normal disc height and morphology. Normal central canal and intervertebral neuroforamina. Normal visualized soft tissue structures. There are atherosclerotic calcifications. CT/Spine Cervical without Contras IMPRESSION: Multilevel degenerative changes, as described above. Electronically Signed: Ricardo Donis MD at 21:59 EDT ,
[2024-02-23 21:01] LABS: Mucous, Urine 0 SEEN /hpf (<or=2+); Squamous Epithelial Cells - UA 0 SEEN /hpf (0-5)
[2024-02-23 21:04] LABS: Color, Urine Red (Yellow); Glucose, Dipstick 100 mg/dl (Normal); Ketone-Dipstick 5 mg/dl (Negative); Leukocyte Esterase-Dipstick 25 /ul (Negative); Nitrite-Dipstick Negative (Negative); Occult Blood-Urine 250 /ul (Negative); Protein-Dipstick 500 mg/dl (Negative); Urine Bilirubin Dipstick Negative (Negative); Urine Clarity Cloudy (Clear); Urine Urobilinogen Normal (Normal)
[2024-02-23 21:10] LABS: AST(SGOT) 36 U/L (15-37); Alanine Aminotransfer ALT/SGPT 78 U/L (16-61); Albumin, Serum 3.1 g/dL (3.2-5.0); Alkaline Phosphatase 130 U/L (45-117); Anion Gap 9 (5-15); BUN 51 mg/dL (7-18); BUN/Creat Ratio 25.9 RATIO (10-20); Bilirubin, Direct 0.38 mg/dL (0.00-0.30); Chloride 103 mmol/L (98-107); Creatinine, Serum 1.97 mg/dL (0.70-1.30); EST Glomerular Filtration Rate 35 mL/min (>60); Est Glom Filt Rate - Afr Amer 42 mL/min (>60); Estimated Creatinine Clearance 28.69 ml/min; Globulin 3.7 g/dL (2.2-4.2); Glucose 144 mg/dL (74-106); Lipase 24 U/L (13-75); Potassium 3.8 mmol/L (3.5-5.1); Protein, Total 6.8 g/dL (6.4-8.2); Sodium Level 137 mmol/L (136-145)
[2024-02-23 21:13] LABS: Red Blood Cells-Urine > 100 SEEN /hpf (0-5); White Blood Cells 5-10 SEEN /hpf (0-5)
[2024-02-23 21:14] LABS: Bacteria RARE /hpf (None Seen)
--- NOTE | 2024-02-23 21:20 | ED.RN ---
multiple attempts made to obtain IV access and blood work. IV access obtained for CT scan after attempts by 4 RNs and 1 medic. Blood work obtained for BMP, however unable to obtain any more. Lab called to attempt blood draw at 2120.
--- NOTE | 2024-02-23 21:30 | RAD_ITS ---
INDICATION: fall EXAMINATION/TECHNIQUE: X-RAY - portable supine AP chest x-ray COMPARISON: 10/04/2023 FINDINGS: LINES/DEVICES: None. LUNGS: No consolidation, edema or effusion. No pneumothorax. MEDIASTINUM AND CARDIOVASCULAR STRUCTURES: Cardiac silhouette mildly enlarged. CABG changes present. BONES AND SOFT TISSUES: No acute changes. RAD/Chest 1 View (Portable) IMPRESSION: Enlarged cardiac silhouette without radiographic evidence of acute cardiopulmonary disease. Electronically Signed: Constantino Pierre MD at 0:31 EDT ,
[2024-02-23] MEDS: Morphine 4 MG/ML Syringe IV (21:48)
[2024-02-23] MEDS: Ondansetron 4 MG/2 ML Vial IV (21:48)
[2024-02-23] MEDS: 0.9% Normal Saline (1000mL) 1,000 ML 150 ML IV (21:48)
[2024-02-23 22:01] LABS: Absolute Lymphocyte Count 1.06 X10^3/uL (0.83-4.51); Absolute Neutrophil Count 20.7 X10^3/uL (2.0-7.7); Basophil# 0.08 X10^3/uL; Basophil% 0.3 % (0-1); Eosinophil# 0.02 X10^3/uL; Eosinophils% 0.1 % (0-5); Hematocrit 34.3 % (40-54); Hemoglobin 10.4 g/dL (13.0-16.5); Lymphocyte # 1.06 X10^3/ul (0.83-4.51); Lymphocyte % 4.4 % (19-41); Mean Corp Hgb Conc 30.3 g/dL (32-36); Mean Corpuscular Hgb 28.7 pg (27.0-32.0); Mean Corpuscular Volume 94.5 fL (80-94); Mean Platelet Vol. 11.8 fl (6.2-12.0); Monocyte# 1.64 X10^3/uL; Monocyte% 6.8 % (0-10); NRBC Flagged by Analyzer 0.2 % (0-5); Neutrophil # 20.72 X10^3/uL (2.7-7.7); Neutrophil % 85.5 % (47-70); POSITIVE DIFFERENTIAL YES; POSITIVE MORPHOLOGY YES; Platelet Count 181 K/mm3 (150-450); RBC Distribution Width CV 22.6 % (11.6-14.6); RBC Distribution Width SD 78.2 fl (35.1-43.9); Red Blood Count 3.63 M/mm3 (4.6-6.2); White Blood Count 24.2 K/mm3 (4.4-11.0)
[2024-02-23 22:05] LABS: Differential Indicated SCAN CRITERIA MET
[2024-02-23 22:23] LABS: International Normalized Ratio 1.3; Partial Thromboplast Time 27.1 Seconds (24.1-36.2); Prothrombin Time (Protime)PT. 16.6 SECONDS (11.7-14.9)
[2024-02-23 22:33] LABS: Differential Comment SCANNED
[2024-02-24] VITALS (9 sets, daily range): BP systolic 92–119; BP diastolic 42–66; PULSE 63–73; RESP 16–21; TEMP 36.8; O2SAT 2–98
--- NOTE | 2024-02-24 00:33 | ED.RN ---
I CALLED REPORT TO [facility] NURSE, ROSS AT THIS TIME. THERE WERE NO FURTHER QUESTIONS BY THE RECEIVING NURSE.
[2024-02-24] MEDS: Morphine 4 MG/ML Syringe IV (00:38)
--- NOTE | 2024-02-24 01:00 | ED.RN ---
CALLED PHYSICIANS AT 2330 TO SET UP A [facility]AMA TRANSFER THEY GAVE AN ETA OF [phone]. I REQUESTED OUTSOURCE.
--- NOTE | 2024-02-24 01:02 | ED.RN ---
PHYSICIANS CALLED BACK AT 2345 WITH AN UPDATE TO THEIR OUTSOURCE, THEY SAID THEY CALLED AROUND AND WERE UNABLE TO OUTSOURCE.
[2024-02-24 01:21] LABS: Hematocrit 30.8 % (40-54); Hemoglobin 9.3 g/dL (13.0-16.5)
[2024-02-24] MEDS: HYDROmorphone 0.5 MG/0.5 ML SYRINGE IV (02:18)
[2024-02-25 14:21] LABS: Pathologist Review Reviewed
== END 2024-02-24 02:35 | disposition short-term general hospital (02) ==
PROVIDERS: Emergency Medicine; Emergency Provider Emergency Medicine; PCP Family Medicine; Visit Provider Emergency Medicine
DX: S32.501A Unspecified fracture of right pubis, initial encounter for closed fracture (principal); S32.10XA Unspecified fracture of sacrum, initial encounter for closed fracture; N18.4 Chronic kidney disease, stage 4 (severe); S32.502A Unspecified fracture of left pubis, initial encounter for closed fracture; I13.0 Hypertensive heart and chronic kidney disease with heart failure and stage 1 through stage 4 chronic kidney disease, or unspecified chronic kidney disease; I48.19 Other persistent atrial fibrillation; E11.22 Type 2 diabetes mellitus with diabetic chronic kidney disease; Z79.4 Long term (current) use of insulin; W10.9XXA Fall (on) (from) unspecified stairs and steps, initial encounter; E78.5 Hyperlipidemia, unspecified; R31.9 Hematuria, unspecified; R33.9 Retention of urine, unspecified; I25.10 Atherosclerotic heart disease of native coronary artery without angina pectoris; I25.2 Old myocardial infarction; G47.33 Obstructive sleep apnea (adult) (pediatric); Z99.89 Dependence on other enabling machines and devices; Z79.899 Other long term (current) drug therapy; N40.0 Benign prostatic hyperplasia without lower urinary tract symptoms; Z79.82 Long term (current) use of aspirin; M10.9 Gout, unspecified; Z90.49 Acquired absence of other specified parts of digestive tract; S41.119A Laceration without foreign body of unspecified upper arm, initial encounter
CPT/HCPCS: 36415; 51702; 70450; 71045; 72125; 74177; 80048; 80076; 81001; 83690; 85014; 85018; 85025; 85610; 85730; 93005; 96361; 96374; 96375; 96376; 99285; J7030; Q9967; A4216; J2405